=== PATIENT | male | born 1945 | race Caucasian/White ===

== ENCOUNTER → 2016-10-24 | Outpatient (CLI) | payer OTHER ==
[~2016-10-24] MED LIST: ACET-1256 PO; ASPCH81X PO; CLOP1TAB15 PO; FINA5TAB PO; GLC/500 PO; GLIP2.5T11 PO; HYDR-5688 PO; LISI5TAB3 PO; METO-217 PO; MULT-845 PO; PHEN-876 PO; SIMV80TA2 PO; SULF800T23 PO; TAMS0.4C59 PO; [UNRECOGNIZED DRUG - CODE] PO
[2016-10-25 05:55] LABS: ESTIMATED AVERAGE GLUCOSE 146 mg/dl; HA1C FLAG Normal (Normal)
== END | disposition home or self-care (01) ==
LOC: C.LABBFT 12:23
PROVIDERS: ATTEND Internal Medicine
DX: N20.0 Calculus of kidney (principal); N21.0 Calculus in bladder; N39.0 Urinary tract infection, site not specified; E11.9 Type 2 diabetes mellitus without complications

== ENCOUNTER 2016-11-03 11:42 | Day surgery (SDC) | payer OTHER ==
[2016-10-18 11:53] VITALS: BMI 22.0
--- NOTE | 2016-10-18 12:46 | PAT Medication Instructions ---
Service Date Oct 18, 2016. Current Home Medication List Acetaminophen (Tylenol), 1 TAB PO Q6 Aspirin (Aspirin Chewable), 81 MG PO HS Clopidogrel (Plavix), 75 MG PO QAM Finasteride (Proscar), 5 MG PO QAM Glipizide (Glipizide Er), 1 TAB PO QAM Lecithin (Cvs Lecithin), Unknown Dose PO TID Lisinopril (Zestril), 5 MG PO ON HOLD Metformin Hcl (Glucophage), 1,000 MG PO BID Metoprolol Succinate (Toprol Xl), 50 MG PO QAM Multiple Vitamins W/ Minerals (Centrum Silver Adult 50+), 1 TAB PO QAM Simvastatin (Zocor), 80 MG PO HS Tamsulosin Hcl (Flomax), 0.4 MG PO QAM Medication Instructions For Your Scheduled Surgery Aspirin (Aspirin Chewable), 81 MG PO HS (surgeon will call with instructions- call Mona from anesthesia if you do not hear from surgeon) Clopidogrel (Plavix), 75 MG PO QAM (surgeon will call with instructions- call Mona from anesthesia if you do not hear from surgeon) - Hold the following medications 48 hours prior to surgery: Metformin Hcl (Glucophage), 1,000 MG PO BID - Hold the following medications the morning of surgery: Multiple Vitamins W/ Minerals (Centrum Silver Adult 50+), 1 TAB PO QAM Lisinopril (Zestril), 5 MG PO ON HOLD Glipizide (Glipizide Er), 1 TAB PO QAM Lecithin (Cvs Lecithin), Unknown Dose PO TID - Take the following medications the morning of surgery with a sip of water: Tamsulosin Hcl (Flomax), 0.4 MG PO QAM Metoprolol Succinate (Toprol Xl), 50 MG PO QAM Finasteride (Proscar), 5 MG PO QAM Acetaminophen (Tylenol), 1 TAB PO Q6 (if needed) - Take the following medications as scheduled the night before surgery: Simvastatin (Zocor), 80 MG PO HS Acetaminophen (Tylenol), 1 TAB PO Q6 Lecithin (Cvs Lecithin), Unknown Dose PO TID If you have any questions please call us at [phone] or [phone] ( Mona) or [phone]
[2016-10-18 13:13] LABS: BASO % 0.4 %; BASO ABS # 0.03 K/uL (0-0.2); COMPLETE YES; HEMATOCRIT 34.1 % (42-52); IG% 1.1 %; LYMPH % 15.7 %; LYMPH ABS # 1.27 K/uL (1.2-3.4); MEAN CELL VOLUME 88.8 fL (80-100); MEAN CORPUSCULAR HEMOGLOBIN 30.2 pg (25-34); MEAN PLATELET VOLUME 9.5 fL (7.4-10.4); MONO % 8.3 %; NEUT % 70.5 %; PLATELET COUNT 204 K/uL (130-400); RED BLOOD COUNT 3.84 M/uL (4.7-6.1); WHITE BLOOD COUNT 8.08 K/uL (4.8-10.8)
--- NOTE | 2016-10-18 13:27 | DIAGNOSTIC IMAGING REPORT ---
CHEST PREADMISSION(PA/LAT) CLINICAL HISTORY: PAT preoperative evaluation COMPARISON STUDY: 05/06/2016 FINDINGS: The current images somewhat lordotic as compared to the prior exam. Central catheter remains in superior vena cava. Linear parenchymal scarring left midlung is similar. Slight lateral pleural reactive changes also similar. Left perihilar fibrotic scarring is unchanged. Diaphragmatic scarring centrally in the left. Lungs otherwise appear clear. Baseline emphysematous changes similar. IMPRESSION: Chronic and postoperative change. No acute process. Electronically signed by: Ezekiel Collier M.D. 10/18/2016 1:25 PM
[2016-10-18 13:28] LABS: URINE APPEARANCE TURBID (CLEAR); URINE BILIRUBIN NEG (NEG); URINE COLOR DK YELLOW; URINE EPITHELIAL CELL AUTO 20-30 /lpf (0-5); URINE NITRITE POS (NEG); URINE SPECIFIC GRAVITY 1.026 (1.000-1.030); UROBILINOGEN NEG (NEG)
[2016-10-18 13:30] LABS: BUN/CREATININE RATIO 21.4 (10-20); CALCIUM 9.5 mg/dl (8.5-10.1); CREATININE 1.3 mg/dl (0.60-1.40); POTASSIUM 4.6 mmol/L (3.5-5.1)
[2016-10-18 13:35] LABS: MANUAL MICROSCOPIC REQUIRED? NO; REVIEW REQ? YES
[~2016-11-03] VITALS: Ht 170.2 cm; Wt 66.1 kg
[~2016-11-03 11:42] MED LIST changes: +GENTAMICIN INJ 120 MG in DEXTROSE 5% 100ML 100 ML IV SCH; -HYDR-5688 PO; +LACTATED RINGER'S 1000ML 1,000 ML IV SCH; -PHEN-876 PO; +ROCURONIUM BROMIDE 10 MG/ML 5 ML VIAL ONE; -SULF800T23 PO
[2016-11-03 12:22] VITALS: BP 135/80; PULSE 67; TEMP 36.5; O2SAT 98; Ht 170.2 cm; Wt 66.1 kg
--- NOTE | 2016-11-03 13:05 | History & Physical Bridge Note ---
H&P Re-Evaluation Bridge Note: I have examined the patient, reviewed the History & Physical and in the interval since the performance of the History & Physical I have noted the following changes of clinical significance: No changes noted
[2016-11-03] MEDS ORDERED: ONDANSETRON INJ 2 MG/ML 2 ML VIAL IV PRN (14:00)
[2016-11-03] MEDS ORDERED: FENTANYL CITRATE INJ 50 MCG/1 ML 2 ML VIAL IV PRN (14:00)
[2016-11-03] MEDS ORDERED: EpHEDrine SULFATE INJ 50 MG/ML AMP IV PRN (14:00)
[2016-11-03] MEDS ORDERED: ATROPINE SULFATE 0.1 MG/ML 5ML SYR IV PRN (14:00)
[2016-11-03] MEDS ORDERED: FENTANYL CITRATE INJ 50 MCG/1 ML 2 ML VIAL ONE ×2 (14:04→15:03)
[2016-11-03] MEDS ORDERED: MIDAZOLAM HCL 1 MG/ML 2ML VIAL ONE (14:04)
[2016-11-03] MEDS ORDERED: HYDROCODONE/ACETAMOPHEN 5/325MG TAB PO PRN (14:15)
[2016-11-03] MEDS ORDERED: HYDR-5688 PO (14:17)
[2016-11-03] MEDS ORDERED: PHEN-876 PO (14:17)
[2016-11-03] MEDS ORDERED: SULF800T23 PO (14:17)
--- NOTE | 2016-11-03 14:25 | Discharge Instructions ---
Discharge Instructions Admission Reason for Admission: Bladder Stone Discharge Discharge Diagnosis / Problem: BPH, bladder stone Discharge Goals Goal(s): Decrease discomfort, Therapeutic intervention Activity Recommendations Activity Limitations: as noted below Lifting Limitations: gradually increase as tolerated Exercise/Sports Limitations: rest today, gradually increase as tolerated May Resume Sexual Activity: after follow-up appointment Shower/Bathe: no limitations Driving or Machine Use: resume 3 days after discharge (Do not drive while taking narcotics. ) . Instructions / Follow-Up Instructions / Follow-Up 1. You have been prescribed the antibiotic Bactrim DS. Finish all as directed. 2. You may resume taking your Aspirin in 2 days. 3. You may resume taking your Plavix in 1 week. 4. Follow-up with Dr. Feldman as scheduled. Please call the office at if you need to reschedule for any reason. Discharge Diet Recommended Diet: Regular Diet Pending Studies Studies pending at discharge: no Laboratory Results Hemoglobin A1c Test 10/24/16 12:29 Range/Units Estimated Average Glucose 146 mg/dl Hemoglobin A1c 6.7 H 4.5-5.6 % Medical Emergencies . Who to Call and When: Medical Emergencies: If at any time you feel your situation is an emergency, please call 911 immediately. . Non-Emergent Contact Non-Emergency issues call your: Urologist Call Non-Emergent contact if: temperature is above 101.5, your pain is not controlled, your pain is worsening, your pain is unusual for you, your pain is concerning you, you have any medication questions . . "Provider Documentation" section prepared by Corina Albarado. VTE Core Measure Inpt VTE Proph given/why not?: SCD's [place] Drug Monitoring Program Search Results: patient reviewed within database, no issues identified
[2016-11-03] MEDS ORDERED: BELLADONNA/OPIUM SUPP 60 MG SUPP PR ONE (14:45)
[2016-11-03] MEDS ORDERED: GLYCOPYRROLATE INJ 0.2 MG/ML VIAL ONE (14:50)
[2016-11-03] MEDS ORDERED: PHENYLEPHRINE HCL INJ 10 MG/ML VIAL ONE (14:50)
[2016-11-03] MEDS ORDERED: SUCCINYLCHOLINE 100MG/5ML SYR IV ONE (14:50)
[2016-11-03] MEDS ORDERED: NEOSTIGMINE METHYLSULFATE 5 MG/5 ML SYR ONE (14:50)
[2016-11-03] MEDS ORDERED: ONDANSETRON INJ 2 MG/ML 2 ML VIAL ONE (14:50)
[2016-11-03] MEDS ORDERED: DEXAMETHASONE SOD INJ 4 MG/ML VIAL ONE (14:50)
[2016-11-03] MEDS ORDERED: ROCURONIUM BROMIDE 10 MG/ML 5 ML VIAL ONE (14:50)
[2016-11-03] MEDS ORDERED: LIDOCAINE HCL 2% 2 ML VIAL (20MG/ML) ONE (14:51)
[2016-11-03] MEDS ORDERED: PROPOFOL IV EMULSION 10 MG/ML 20 ML VIAL IV ONE (14:51)
--- NOTE | 2016-11-03 15:53 | [facility] Post Operative Brief Note ---
Immediate Operative Summary Operative Date Nov 03, 2016. Pre-Operative Diagnosis Bladder stone, recurrent UTI, BPH Post-Operative Diagnosis Same Procedure(s) Performed Laser cystolithopaxy, GLTURP Surgeon Gaston Alegria MD Igniter Assembler Surgeon(s) NA Estimated Blood Loss Minimal Findings Stone fragmented and removed, open fossa after 64K J used Specimens Bladder stone for analysis Drains 20 fr silicone roche 10 cc Anesthesia GAET Complication(s) None Disposition Recovery Room / PACU
[2016-11-03] MEDS: HYDROmorphone INJ 1 MG/ML SYR IV PRN ×2 (16:02→16:07)
--- NOTE | 2016-11-03 16:24 | Anesthesiology Progress Note ---
Anesthesia Post Op Note Date & Time Nov 03, 2016 at 16:24 Vital Signs Pain Intensity: 1 Vital Signs Past 12 Hours Date Time Temp Pulse Resp B/P Pulse Ox O2 Delivery O2 Flow Rate FiO2 11/03/16 16:15 56 16 29/68 95 Room Air 11/03/16 16:05 57 16 130/72 100 Mask 10 11/03/16 15:55 63 16 145/72 100 Mask 10 11/03/16 15:45 36.3 63 16 155/74 100 Mask 10 11/03/16 12:22 36.5 67 18 135/80 98 Room Air Notes Mental Status: alert / awake / arousable, participated in evaluation Pt Amnestic to Procedure: Yes Nausea / Vomiting: adequately controlled Pain: adequately controlled Airway Patency, RR, SpO2: stable & adequate BP & HR: stable & adequate Hydration State: stable & adequate Anesthetic Complications: no major complications apparent
[2016-11-03 16:30] VITALS: BP 119/64; PULSE 60; TEMP 36.4; O2SAT 96
[2016-11-03 17:00] VITALS: BP 124/55; PULSE 60; O2SAT 96
[2016-11-03 17:30] VITALS: BP 114/57; PULSE 60; TEMP 36.4; O2SAT 96
--- NOTE | 2016-11-03 18:39 | OPERATIVE REPORT ---
DATE OF OPERATION: 11/03/2016 PREOPERATIVE DIAGNOSES: A 3 cm bladder stone, recurrent urinary tract infections and benign prostatic hypertrophy. POSTOPERATIVE DIAGNOSIS: Same. PROCEDURE: Laser cystolitholapaxy and GreenLight vaporization of the prostate gland. SURGEON: Dr. Christopher Feldman. FLUORESCENT LIGHTING MODEL MAKER: None. ANESTHESIA: General anesthesia with endotracheal intubation. COMPLICATIONS: None. ESTIMATED BLOOD LOSS: Minimal. FINDINGS: No residual intravesical stone after completion, open fossa after 64,000 joules of GreenLight laser energy. DRAINS LEFT IN PLACE: Include a 20-Kosovan silicone catheter with 10 mL of sterile water in the balloon. SPECIMENS SENT TO PATHOLOGY: Bladder stone fragments for pathologic analysis. COMPLICATIONS: None. BRIEF HISTORY: Mr. Aden is a pleasant 70-year-old male who I have seen as an outpatient for history of bothersome voiding symptoms and recurrent urinary tract infection. His numerous health issues were noted including malignancy with a history of ongoing chemotherapy and coronary artery disease for which he is on antiplatelet therapy. Office cystoscopy in the summer of 2015 has demonstrated a large bladder stone and obstructive prostate gland for which he is on maximum medical therapy. He is here today as his other health issues have stabilized sufficiently to allow for intervention with respect to achieve conditions. After close coordination with the cardiology service aspirin has been held for 5 days preoperatively and Plavix on hold for 1 week. Please see H\T\P for further details. Intravenous gentamicin was provided for antibiotic coverage. DESCRIPTION OF PROCEDURE: The patient was properly identified and brought to the operative suite. After identification of appropriate consent on the chart, general anesthesia with endotracheal intubation was initiated. The patient was prepped and draped in a standard fashion for this procedure. multimedia producer-out procedure was followed. SCDs used for DVT prophylaxis. A 22-Kosovan rigid cystoscope was passed into the bladder under direct visualization and bladder was surveyed in its entirety. Ureteral orifices were easily visible and well removed from the bladder neck. Grade 2 trabeculation was present and a large bladder stone consistent with the patient's previous cystoscopic and imaging findings was noted. No other intravesical tumors, papillary lesions or calculi or mucosal abnormalities were appreciated. Using a 600 micron laser scope the stone was fragmented into smaller pieces which were able to be irrigated free. A resectoscope was placed for irrigation of the larger fragments. After 20 minutes of holmium laser time, the stone was noted to be resolved within the bladder. No significant intravesical injuries or abnormalities and no involvement of the ureteral orifices was appreciated. Bladder was surveyed carefully and noted to be free of any residual stone fragments. The bladder was drained and cystoscope was removed. Attention was then turned to the GreenLight portion of the case. The GreenLight laser scope was introduced into the bladder and using a side fire GreenLight laser, circumferential vaporization of the prostate gland was performed until the prostate was visually unobstructed. Relaxing incisions were made using the laser at the 5 and 7 o'clock position to avoid future bladder neck contracture. Ureteral orifices were noted to be well clear of the area of dissection. Excellent hemostasis was appreciated throughout the case. After the prostate was felt to be visually unobstructed, approximately 64,000 joules of energy used. The bladder was partially distended and GreenLight laser resectoscope was removed. A 20-Kosovan silicone catheter was placed without resistance into the bladder with return of clear, yellow irrigant. Ten mL of sterile water were placed in the balloon and catheter was placed to gravity drainage and belladonna and opium suppository were provided for additional postoperative analgesia. Anesthesia was reversed. The patient was transferred to recovery room in stable condition. FOLLOWUP CARE: The patient will be discharged home with Dawson catheter in place. Outpatient trial of void has been arranged. Prescription for antibiotic coverage postoperatively, analgesia and Pyridium is provided. The patient is instructed to contact our service should he note any fevers, chills, nausea, vomiting or other significant difficulties in the postoperative care. I attest to the content of the Intraoperative Record and any orders documented therein. Any exceptio ns are noted below.
== END 2016-11-03 17:50 | disposition home or self-care (01) ==
LOC: C.ACU 11:42
PROVIDERS: ATTEND Urology
DX: N21.0 Calculus in bladder (principal); N40.1 Benign prostatic hyperplasia with lower urinary tract symptoms; N13.8 Other obstructive and reflux uropathy; I25.10 Atherosclerotic heart disease of native coronary artery without angina pectoris; R10.12 Left upper quadrant pain; D64.9 Anemia, unspecified; J44.9 Chronic obstructive pulmonary disease, unspecified; I10 Essential (primary) hypertension; E11.9 Type 2 diabetes mellitus without complications; N32.89 Other specified disorders of bladder

== ENCOUNTER → 2016-11-16 | Outpatient (CLI) | payer OTHER ==
[~2016-11-16] MED LIST changes: -ASPCH81X PO; -CLOP1TAB15 PO; -GENTAMICIN INJ 120 MG in DEXTROSE 5% 100ML 100 ML IV SCH; +HYDR-5688 PO; -LACTATED RINGER'S 1000ML 1,000 ML IV SCH; +PHEN-876 PO; -ROCURONIUM BROMIDE 10 MG/ML 5 ML VIAL ONE; -[UNRECOGNIZED DRUG - CODE] PO
== END | disposition home or self-care (01) ==
LOC: C.LABSPEC 16:59
PROVIDERS: ATTEND Urology
DX: R39.9 Unspecified symptoms and signs involving the genitourinary system (principal); N39.0 Urinary tract infection, site not specified

== ENCOUNTER → 2017-02-28 | Outpatient (CLI) | payer OTHER ==
[2017-02-28 12:13] LABS: BASO % 0.3 %; BASO ABS # 0.02 K/uL (0-0.2); COMPLETE YES; EOS % 9.2 %; HEMATOCRIT 34.5 % (42-52); IG% 0.6 %; LYMPH % 12.1 %; LYMPH ABS # 0.79 K/uL (1.2-3.4); MEAN CELL VOLUME 91.8 fL (80-100); MEAN CORPUSCULAR HEMOGLOBIN 29.3 pg (25-34); MEAN CORPUSCULAR HGB CONC 31.9 g/dl (32-36); MONO % 11.1 %; NEUT % 66.7 %; PLATELET COUNT 228 K/uL (130-400); RED BLOOD COUNT 3.76 M/uL (4.7-6.1); WHITE BLOOD COUNT 6.55 K/uL (4.8-10.8)
[2017-02-28 12:31] LABS: ALT/SGPT 33 U/L (12-78); BLOOD UREA NITROGEN 28 mg/dl (7-18); BUN/CREATININE RATIO 28.5 (10-20); CARBON DIOXIDE 27 mmol/L (21-32); CHLORIDE 108 mmol/L (98-107); CHOLESTEROL 120 mg/dl (0-200); CREATININE 0.97 mg/dl (0.60-1.40); GLUCOSE 98 mg/dl (70-99); POTASSIUM 4.6 mmol/L (3.5-5.1); SODIUM 141 mmol/L (136-145); TRIGLYCERIDES 86 mg/dl (0-150); VERY LOW DENSITY LIPOPROT CALC 17 mg/dl
[2017-02-28 12:35] LABS: ALB/GLOB RATIO 1.1 (0.9-2); ALKALINE PHOSPHATASE 114 U/L (45-117); AST/SGOT 22 U/L (15-37); CHOLESTEROL/HDL RATIO 2.4; HDL CHOLESTEROL 50 mg/dl; LDL CHOLESTEROL CALCULATED 53 mg/dl; PROSTATE SPECIFIC ANTIGEN 0.869 ng/ml (0.000-4.000)
[2017-02-28 12:45] LABS: ESTIMATED AVERAGE GLUCOSE 140 mg/dl; HA1C FLAG Normal (Normal)
[2017-02-28 12:49] LABS: CALCIUM 9.5 mg/dl (8.5-10.1)
== END | disposition home or self-care (01) ==
LOC: C.LABBFT 08:09
PROVIDERS: ATTEND Internal Medicine
DX: E78.5 Hyperlipidemia, unspecified (principal); I10 Essential (primary) hypertension; E11.9 Type 2 diabetes mellitus without complications; D64.9 Anemia, unspecified; D72.829 Elevated white blood cell count, unspecified; E87.5 Hyperkalemia; N40.1 Benign prostatic hyperplasia with lower urinary tract symptoms

== ENCOUNTER → 2017-03-16 | Outpatient (CLI) | payer OTHER ==
[2017-03-16 14:34] VITALS: BP 124/67; PULSE 57; TEMP 36.5; O2SAT 98
--- NOTE | 2017-03-16 16:10 | Radiation Oncology Follow-Up ---
Radiation Oncology Follow-Up Date of Visit Mar 16, 2017. (Beatris Curiel PA-C) Reason For Visit 6 month follow-up (Beatris Curiel PA-C) Radiation Completion Date 09/02/16 (Beatris Curiel PA-C) Diagnosis (1) Small cell lung cancer Status: Acute Onset Date: 01/27/2016 Permanent Comment: DIAGNOSIS: Lung, CHATA, small cell lung carcinoma, [id number], stage IIIA TREATMENT: 1. Status post completion of combined radiation and chemotherapy. Radiation completed 05/02/2016 received 7000 cGy 2. 2 addition cycles of cisplatin/etoposide - Dr. Jeffery Ash Last Edited By: Jacinta Poole on Jun 03, 2016 08:02 (Beatris Curiel PA-C) History of Present Illness Mr. Aden is a 70-year-old gentleman who initially presented with an episode of hemoptysis. He had a chest x-ray which showed a left upper lobe mass. He subsequently had a CT scan completed on 2015 which revealed 7 cm heterogeneous mass in the left upper lobe which encases and occludes branches of the left upper lobe pulmonary artery and bronchi. Additionally, the patient has a mass in the left hilum and there are also pathologically enlarged and centrally necrotic mediastinal lymph nodes in the AP window. The patient was taken to the operating room by Dr. Srivastava on for a bronchoscopy which did not reveal any endobronchial lesions. He did perform several biopsies including an L4 lymph node which was consistent with metastatic small cell carcinoma. An R2 and a R4 lymph node were also biopsied in both were negative for metastatic carcinoma. He subsequently had a PET/CT scan completed on 02/03/2016 which revealed an intensely metabolically active left upper lobe mass with extension to the left hilum as well as metabolically active left paratracheal and aortic pulmonary window lymph nodes. There is no evidence of distant metastatic disease. He did have an MRI of the brain on 02/09/2016 which showed no evidence of metastatic disease. The patient was seen in consultation by Dr[facility] who recommended concurrent chemoradiation therapy. We are now seeing the patient in consultation. He completed combined radiation and chemotherapy. Radiation was completed 2015. He received 7000 cGy. He has been doing well over the past 3 months. He feels his respiratory status is stable. He completed chemotherapy . He was recently treated for urinary tract infection. He's been followed closely by Dr. Ash and had recheck imaging with a PET/CT 07/27/2016. This is shown post radiation changes within the left lung and hemithorax with interval decrease in size and metabolic activity of the left upper lobe paramediastinal mass. There is mild focal uptake in the posterior aspect of the mass and residual disease cannot be entirely excluded. No evidence of FDG avid distant metastasis. It is felt that he has had a good response to therapy. He is been referred back to our office to discuss prophylactic cranial irradiation. He completed prophylactic cranial irradiation 09/02/2016. He received 2500 cGy (Beatris Curiel PA-C) Interim History He's been doing well over the past 6 months. He feels that his respiratory status stable. He has occasional cough but nothing that is severe. No problems with hemoptysis. Denies chest discomfort. He has no problems with dysphagia. His weight is stable. While undergoing treatment and he had herpes zoster on the side of the head. He continues to have residual mild sensitivity of the skin on the right side of his head. He had previously been on medication. He no longer requires any regular medication for postherpetic neuralgia. He denies headaches. No visual changes or lightheadedness. He's had no nausea. He isn't followed closely by Dr. Ash and has had recheck scanning including CT scan of the chest as well as PET/CT. The area in the left upper lobe continues to showed decreased FDG avidity and size. (Beatris Curiel PA-C) Allergies Coded Allergies: No Known Allergies (Verified , 11/03/16) Home Medications Scheduled Finasteride (Proscar), 5 MG PO QAM Glipizide (Glipizide Er), 1 TAB PO QAM Metformin Hcl (Glucophage), 1,000 MG PO BID Metoprolol Succinate (Toprol Xl), 50 MG PO QAM Multiple Vitamins W/ Minerals (Centrum Silver Adult 50+), 1 TAB PO QAM Simvastatin (Zocor), 80 MG PO HS Review of Systems Gastrointestinal: Symptoms: WNL Oral: Symptoms: No Problems Respiratory: Symptoms: WNL Respiratory Comments: If I'm working hard I can get SOB Urinary: Symptoms: WNL Skin: Other Skin Symptoms: slight redness and small macula on right side head from shingles (Beatris uCriel PA-C) Physical Exam Vital Signs Date Time Temp Pulse Resp B/P (MAP) Pulse Ox O2 Delivery O2 Flow Rate FiO2 03/16/17 14:34 36.5 57 18 124/67 98 Pain: Patient Pain Scale: 0 - 10 Initial Pain Intensity: 0.0 Fatigue: None General Appearance: no apparent distress Eyes: normal inspection, EOMI ENT: normal ENT inspection, hearing grossly normal Neck: no adenopathy, thyroid normal Respiratory/Chest: lungs clear, no respiratory distress, no accessory muscle use Cardiovascular: regular rate, rhythm, no gallop, no murmur Extremities: no pedal edema Neurologic/Psychiatric: no motor/sensory deficits, alert, normal mood/affect Skin: warm/dry Lymphatic: no adenopathy (Beatris Curiel PA-C) Laboratory Studies Test 02/28/17 09:11 White Blood Count 6.55 K/uL (4.8-10.8) Red Blood Count 3.76 M/uL (4.7-6.1) Hemoglobin 11.0 g/dL (14.0-18.0) Hematocrit 34.5 % (42-52) Mean Corpuscular Volume 91.8 fL (80-100) Mean Corpuscular Hemoglobin 29.3 pg (25-34) Mean Corpuscular Hemoglobin Concent 31.9 g/dl (32-36) Platelet Count 228 K/uL (130-400) Mean Platelet Volume 10.0 fL (7.4-10.4) Neutrophils (%) (Auto) 66.7 % Lymphocytes (%) (Auto) 12.1 % Monocytes (%) (Auto) 11.1 % Eosinophils (%) (Auto) 9.2 % Basophils (%) (Auto) 0.3 % Neutrophils # (Auto) 4.37 K/uL (1.4-6.5) Lymphocytes # (Auto) 0.79 K/uL (1.2-3.4) Monocytes # (Auto) 0.73 K/uL (0.11-0.59) Eosinophils # (Auto) 0.60 K/uL (0-0.5) Basophils # (Auto) 0.02 K/uL (0-0.2) RDW Standard Deviation 44.5 fL (36.4-46.3) RDW Coefficient of Variation 13.4 % (11.5-14.5) Immature Granulocyte % (Auto) 0.6 % Immature Granulocyte # (Auto) 0.04 K/uL (0.00-0.02) Sodium Level 141 mmol/L (136-145) Potassium Level 4.6 mmol/L (3.5-5.1) Chloride Level 108 mmol/L (98-107) Carbon Dioxide Level 27 mmol/L (21-32) Anion Gap 6.0 mmol/L (3-11) Blood Urea Nitrogen 28 mg/dl (7-18) Creatinine 0.97 mg/dl (0.60-1.40) Estimated GFR () 89.4 Estimated GFR (Non- 77.1 BUN/Creatinine Ratio 28.5 (10-20) Random Glucose 98 mg/dl (70-99) Estimated Average Glucose 140 mg/dl Hemoglobin A1c 6.5 % (4.5-5.6) Calcium Level 9.5 mg/dl (8.5-10.1) Total Bilirubin 0.8 mg/dl (0.2-1) Aspartate Amino Transferase (AST) 22 U/L (15-37) Alanine Aminotransferase (ALT) 33 U/L (12-78) Alkaline Phosphatase 114 U/L (45-117) Total Protein 6.8 gm/dl (6.4-8.2) Albumin 3.5 gm/dl (3.4-5.0) Globulin 3.3 gm/dl (2.5-4.0) Albumin/Globulin Ratio 1.1 (0.9-2) Triglycerides Level 86 mg/dl (0-150) Cholesterol Level 120 mg/dl (0-200) HDL Cholesterol 50 mg/dl LDL Cholesterol, Calculated 53 mg/dl VLDL Cholesterol, Calculated 17 mg/dl Cholesterol/HDL Ratio 2.4 Prostate Specific Antigen 0.869 ng/ml (0.000-4.000) (Beatris Curiel PA-C) Additional Studies He had CT of the chest 12/23/2016. This showed decreased size of the left upper lobe mass. Stable infiltrating soft tissue extending from the left hilum into the mediastinum. No new nodule or lymphadenopathy identified. Small left pleural effusion. Non-masslike areas of hyper enhancement of the liver fever to represent perfusional abnormalities, however metastatic disease not excluded. He had a PET/CT 02/09/2017. Showed post interval changes in the left hemithorax including irregular pulmonary opacity in the left upper lobe. No discrete suspicious hypermetabolic uptake in the liver. (Beatris Curiel PA-C) Assessment & Plan Continue regular follow-up with Dr. Ash and his primary care provider. Recheck scanning per Dr. Ash. He was seen and examined by Dr. Poole. We asked him to return to our office in October 2017. He may call our office if he has any questions or concerns in the interim. (Beatris Curile PA-C) I agree with note created by Beatris Curiel PA-C. I reviewed the patient's chart and information with her. I have examined and evaluated the patient. I reviewed relevant clinical information and answered the patient's and/or family' s questions. (Veeral. Poole MD) Total Time In Follow-Up I spent 20 minutes speaking to the patient and performing examination. I spent 15 minutes reviewing information in completing this note. (Beatris Curiel PA-C) I spent 15 minutes examining and counseling the patient. (Veeral. Poole MD) Copy To Dom Walter M.D.; Jeffery Ash MD; Charles Vera M.D. Problem Qualifiers (1) Small cell lung cancer: Laterality: left Qualified Codes: C34.92 - Malignant neoplasm of unspecified part of left bronchus or lung
== END | disposition home or self-care (01) ==
LOC: C.ONC 14:22
PROVIDERS: ATTEND Physician Assistant Medical
DX: Z08 Encounter for follow-up examination after completed treatment for malignant neoplasm (principal); Z92.3 Personal history of irradiation; Z85.118 Personal history of other malignant neoplasm of bronchus and lung

== ENCOUNTER → 2017-03-20 | Outpatient (CLI) | payer OTHER ==
[~2017-03-20] MED LIST changes: -ACET-1256 PO; -HYDR-5688 PO; -LISI5TAB3 PO; -PHEN-876 PO; -TAMS0.4C59 PO
--- NOTE | 2017-03-20 08:52 | DIAGNOSTIC IMAGING REPORT ---
ABDOMINAL ULTRASOUND, RIGHT UPPER QUADRANT HISTORY: Right upper quadrant abdominal pain. COMPARISON: PET CT October 19, 2016. FINDINGS: A few subcentimeter hepatic cysts are noted. There is no biliary ductal dilatation. There are no gallstones. No gallbladder wall thickening is present. The pancreatic body is normal. Head and tail are obscured. There is no right hydronephrosis. IMPRESSION: No significant abnormality identified within the right upper quadrant. Electronically signed by: Jose Prieto M.D. 03/20/2017 8:51 AM Dictated Date/Time: 03/20/2017 8:49 AM
== END | disposition home or self-care (01) ==
LOC: C.ULTR 08:20
PROVIDERS: ATTEND Physician Assistant Medical
DX: R10.11 Right upper quadrant pain (principal)

== ENCOUNTER → 2017-09-18 | Outpatient (CLI) | payer OTHER ==
[2017-09-18 13:55] LABS: BLOOD UREA NITROGEN 27 mg/dl (7-18); BUN/CREATININE RATIO 23.3 (10-20); CARBON DIOXIDE 26 mmol/L (21-32); CHLORIDE 106 mmol/L (98-107); CREATININE 1.17 mg/dl (0.60-1.40); GLUCOSE 137 mg/dl (70-99); POTASSIUM 4.5 mmol/L (3.5-5.1); SODIUM 136 mmol/L (136-145)
== END | disposition home or self-care (01) ==
LOC: C.LABBFT 09:10
PROVIDERS: ATTEND Internal Medicine
DX: E87.5 Hyperkalemia (principal)

== ENCOUNTER → 2017-10-24 | Outpatient (CLI) | payer OTHER ==
[~2017-10-24] MED LIST changes: +LISI-729 PO
[2017-10-24 13:53] VITALS: BP 129/75; PULSE 56; TEMP 36.4; O2SAT 98
--- NOTE | 2017-10-24 15:37 | Radiation Oncology Follow-Up ---
Radiation Oncology Follow-Up Date of Visit Oct 24, 2017. Reason For Visit 6 month follow-up Radiation Completion Date 05/02/16 PCI 09/02/16 Diagnosis (1) Small cell lung cancer Status: Acute Onset Date: 01/27/2016 Location: left upper lobe Permanent Comment: DIAGNOSIS: Lung, CHATA, small cell lung carcinoma, [id number], stage IIIA TREATMENT: 1. Status post completion of combined radiation and chemotherapy. Radiation completed 05/02/2016 received 7000 cGy 2. 2 addition cycles of cisplatin/etoposide - Dr. Jeffery Ash Last Edited By: Jacinta Poole on Jun 03, 2016 08:02 History of Present Illness Mr. Aden initially presented with an episode of hemoptysis. He had a chest x- ray which showed a left upper lobe mass. He subsequently had a CT scan completed on 2015 which revealed 7 cm heterogeneous mass in the left upper lobe which encases and occludes branches of the left upper lobe pulmonary artery and bronchi. Additionally, the patient has a mass in the left hilum and there are also pathologically enlarged and centrally necrotic mediastinal lymph nodes in the AP window. The patient was taken to the operating room by Dr. Srivastava on for a bronchoscopy which did not reveal any endobronchial lesions. He did perform several biopsies including an L4 lymph node which was consistent with metastatic small cell carcinoma. An R2 and a R4 lymph node were also biopsied in both were negative for metastatic carcinoma. He subsequently had a PET/CT scan completed on 02/03/2016 which revealed an intensely metabolically active left upper lobe mass with extension to the left hilum as well as metabolically active left paratracheal and aortic pulmonary window lymph nodes. There is no evidence of distant metastatic disease. He did have an MRI of the brain on 02/09/2016 which showed no evidence of metastatic disease. The patient was seen in consultation by Dr. Jeffery [facility] who recommended concurrent chemoradiation therapy. We are now seeing the patient in consultation. He completed combined radiation and chemotherapy. Radiation was completed 2015. He received 7000 cGy. He has been doing well over the past 3 months. He feels his respiratory status is stable. He completed chemotherapy . He was recently treated for urinary tract infection. He's been followed closely by Dr. Ash and had recheck imaging with a PET/CT 07/27/2016. This is shown post radiation changes within the left lung and hemithorax with interval decrease in size and metabolic activity of the left upper lobe paramediastinal mass. There is mild focal uptake in the posterior aspect of the mass and residual disease cannot be entirely excluded. No evidence of FDG avid distant metastasis. It is felt that he has had a good response to therapy. He is been referred back to our office to discuss prophylactic cranial irradiation. He completed prophylactic cranial irradiation 09/02/2016. He received 2500 cGy Interim History He's been doing well over the past 6 months. He denies any changes in respiratory status. He becomes short of breath with strenuous exertion and this is unchanged. No problems recurrent with recurrent cough. He has continued to have an altered taste since completing the chemotherapy. He has had follow-up imaging the most recent was performed 07/20/2017. He has a irritation of the skin of the right frontal parietal area where he had herpes zoster. This is continued since the outbreak following treatment. He has discussed this previously with his PCP and has declined medication for the postherpetic neuralgia. He has no difficulty swallowing. Allergies Coded Allergies: No Known Allergies (Verified , 11/03/16) Home Medications Scheduled Finasteride (Proscar), 5 MG PO QAM Glipizide (Glipizide Er), 1 TAB PO QAM Lisinopril (Zestril), 5 MG PO DAILY Metformin Hcl (Glucophage), 1,000 MG PO BID Metoprolol Succinate (Toprol Xl), 50 MG PO QAM Multiple Vitamins W/ Minerals (Centrum Silver Adult 50+), 1 TAB PO QAM Simvastatin (Zocor), 80 MG PO HS Review of Systems Gastrointestinal: Symptoms: WNL Oral: Symptoms: No Problems Respiratory: Symptoms: WNL Urinary: Symptoms: WNL Skin: Symptoms: No Problems Physical Exam Vital Signs Date Time Temp Pulse Resp B/P (MAP) Pulse Ox O2 Delivery O2 Flow Rate FiO2 10/24/17 13:53 36.4 56 16 129/75 98 Fatigue: None General Appearance: no apparent distress Eyes: normal inspection, EOMI ENT: normal ENT inspection, hearing grossly normal Neck: supple, no adenopathy, thyroid normal Respiratory/Chest: lungs clear, no respiratory distress, no accessory muscle use Cardiovascular: regular rate, rhythm, no gallop, no murmur Extremities: no pedal edema Neurologic/Psychiatric: no motor/sensory deficits, alert, normal mood/affect Skin: warm/dry Pain Management Patient Reports Pain: No Pain Management Plan He denies pain therefore requires no pain management. Laboratory Laboratory Results: not applicable Pathology Pathology Results: not applicable Imaging Imaging Studies: were reviewed, and pertinent findings noted below Imaging Comments Date/Time of Imaging Study Study Completed: 07/19/2017 8:49 AM [facility] PACS Image Narrative EXAM EXAM: CT THORAX WITH CONTRAST; CT ABDOMEN /PELVIS WITH IV CONTRAST WITH ORAL DATE and TIME: 07/19/2017 8:49 am HISTORY CLINICAL INFORMATION: small cell lung cancer TECHNIQUE Oral Contrast: Oral contrast was administered. COMPARISON CT THORAX WITH CONTRAST dated 12/21/2016; CT THORAX WITH CONTRAST dated 05/20/2016 FINDINGS CHEST: LINES AND DEVICES: Left vascular port terminates at the cavoatrial junction. MEDIASTINUM AND CARL: See below. Persistent left hilar elevation and narrowing on the left bronchial tree. Leftward mediastinal shift. HEART: There is a small pericardial effusion. Likely coronary artery stent. VESSELS: Atherosclerotic changes in the aorta and coronary arteries. LARGE AIRWAYS: See above. LUNGS: Advanced centrilobular emphysema. Left upper lobe paramediastinal mass, inseparable from the adjacent bronchovascular tree with extension along mainstem bronchus, sub- carinal soft tissue, and inseparable from the mediastinum and pleural reflections appears stable to slightly decreased size. Adjacent ground-glass and reticular opacities likely combination of posttreatment and radiation changes redemonstrated. Loculated effusion has decreased in volume compared to prior. Persistent fibrosis and architectural distortion. PLEURA: There are no pleural effusions. CHEST WALL / SOFT TISSUES: There is no axillary lymphadenopathy. BONES: There are thoracic spondylotic changes. ABDOMEN / PELVIS: LINES AND DEVICES: None. LIVER: Peripheral wedge-shaped arterial enhancing foci in the right lobe without correlate on delayed phase imaging, stable. There are scattered subcentimeter hypodensities within the hepatic parenchyma, too small to definitively characterize but likely represent cysts. BILE DUCTS: Unremarkable. GALLBLADDER: Unremarkable PANCREAS: Fatty replacement. SPLEEN: Unremarkable. ADRENALS: Unremarkable. KIDNEYS / URETERS: Bilateral renal cysts. Slightly greater than simple fluid density hypodense focus in superior left renal pelvis redemonstrated. Punctate nonobstructing left lower pole calculus. BLADDER: Collapsed. BOWEL: There is colonic diverticulosis without evidence for diverticulitis. LYMPH NODES: Unremarkable. VESSELS: There is moderate atherosclerotic calcification to the abdominal aorta and its major branches. REPRODUCTIVE ORGANS: Prostate is prominent. Central zone calcifications. PERITONEUM / RETROPERITONEUM: Unremarkable. ABDOMINAL WALL / SOFT TISSUES: Unremarkable. BONES: There are degenerative changes to the spine and joints of the pelvis. IMPRESSION Overall improved appearance of the left upper hemithorax with stable to decreased size of left paramediastinal mass as described. Additional findings as above. Authenticated By Authenticating Date Authenticating Time Reading Providers(s) LUIGI GILLETTE DO 07-20-2017 09:47 LUIGI GILLETTE DO Assessment & Plan Plan: The patient was seen and examined by Dr. Poole. He'll continue regular follow-up with medical oncology and his primary care physician. Dr. Moreira planning a recheck CT in December and follow-up visit. He continues to have his port flushed every 12 weeks. We asked him to return to our office in 1 year. He may call if he has any questions or concerns in the interim. Assessment & Plan (Attending) ADDENDUM: I agree with note created by Beatris Curiel PA-C. I reviewed the patient's chart and information with her. I have examined and evaluated the patient. I reviewed relevant clinical information and answered the patient's and /or family's questions. SELECTOR P[employer]ER Total Time In Follow-Up I spent 20 minutes speaking to the patient and performing examination. I spent 15 minutes reviewing information in completing this note. AK Total Time (Attending) In Follow-Up I spent 15 minutes examining and counseling the patient. SELECT[employer] P[employer]ER Copy To Jeffery Ash MD; Charles Vear M.D. Problem Qualifiers (1) Small cell lung cancer: Laterality: left Qualified Codes: C34.92 - Malignant neoplasm of unspecified part of left bronchus or lung
== END | disposition home or self-care (01) ==
LOC: C.ONC 13:48
PROVIDERS: ATTEND Physician Assistant Medical
DX: Z08 Encounter for follow-up examination after completed treatment for malignant neoplasm (principal); Z92.3 Personal history of irradiation; Z85.118 Personal history of other malignant neoplasm of bronchus and lung

== ENCOUNTER 2017-12-26 13:42 | Inpatient (IN) | payer OTHER ==
[~2017-12-26] VITALS: Ht 172.7 cm; Wt 61.6 kg
[~2017-12-26 13:42] MED LIST changes: -FINA5TAB PO; -GLIP2.5T11 PO; -LISI-729 PO
[2017-12-26] MEDS ORDERED: PIPERACILLIN/TAZOBACTAM 4.5 GM/100ML D5W IV STA (13:56)
[2017-12-26] MEDS ORDERED: SODIUM CHLORIDE 0.9% 1000ML 1,000 ML IV STA ×2 (13:56)
[2017-12-26] MEDS ORDERED: VANCOMYCIN IV 1,250 MG in SODIUM CHLORIDE 0.9% 500ML 500 ML IV STA (13:56)
[2017-12-26] MEDS ORDERED: VANCOMYCIN CONSULT ACTIVE PRN ×2 (14:00→16:15)
--- NOTE | 2017-12-26 14:05 | EMERGENCY ROOM VISIT NOTE ---
History Report prepared by Christopher: Devaughn Xavier Under the Supervision of: Dr. Chapincito Mullen M.D. First contact with patient: 13:51 Chief Complaint: CHEST PAIN Stated Complaint: CHEST PAIN History of Present Illness The patient is a 72 year old white male with a history of Left Upper Lobe Carcinoma, Diabetes, Hyperlipidemia, Hypertension, and Myocardial Infarction, who presents to the Emergency Room with complaints of waxing and waning chest pain that began this morning, a few hours prior to arrival. The patient states that he is currently experiencing common cold symptoms, including a productive cough. He believes the chest pain is associated with the cough. The patient has not noticed anything that improves or worsens the pain. He is not currently experiencing the pain. The patient has had 2 heart attacks in the past. He denies any associated nausea, vomiting, or shortness of breath. 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 A total of ten systems were reviewed and were otherwise negative. Past Medical & Surgical Medical Problems: (1) Anemia (2) BPH (benign prostatic hyperplasia) (3) CAD (coronary artery disease) (4) CKD stage 3 due to type 2 diabetes mellitus (5) COPD (chronic obstructive pulmonary disease) (6) DM II (diabetes mellitus, type II), controlled (7) Enlarged prostate (8) HLD (hyperlipidemia) (9) HTN (hypertension) (10) Hx of myocardial infarction (11) DE (myocardial infarction) (12) PVD (peripheral vascular disease) (13) Tachycardia Surgical Problems: (1) History of heart artery stent Family History Hypertension Social History Smoking Status: Never Smoker Alcohol Use: none Drug Use: none Marital Status: Housing Status: lives with family Occupation Status: retired Current/Historical Medications Scheduled Aspirin (Aspirin Ec), 81 MG PO DAILY Clopidogrel (Plavix), 75 MG PO DAILY Finasteride (Proscar), 5 MG PO QAM Glipizide (Glipizide Er), 2.5 MG PO QAM Lisinopril (Zestril), 5 MG PO DAILY Metformin Hcl (Glucophage), 1,000 MG PO BID Metoprolol Succinate (Toprol Xl), 50 MG PO QAM Multiple Vitamins W/ Minerals (Centrum Silver Adult 50+), 1 TAB PO QAM Simvastatin (Zocor), 80 MG PO HS Allergies Coded Allergies: No Known Allergies (Verified , 11/03/16) Physical Exam Vital Signs Date Time Temp Pulse Resp B/P (MAP) Pulse Ox O2 Delivery O2 Flow Rate FiO2 12/26/17 17:49 37.6 115 24 91/56 91 Nasal Cannula 6.0 12/26/17 16:48 93 Nasal Cannula 2.0 12/26/17 16:31 131 29 100/71 93 Nasal Cannula 2.0 12/26/17 15:22 117 24 102/61 97 Room Air 12/26/17 14:36 124 20 103/60 95 Nasal Cannula 2.0 12/26/17 14:24 132 12/26/17 13:58 Nasal Cannula 2.0 12/26/17 13:52 92 Room Air 12/26/17 13:50 36.4 137 22 96/66 91 Room Air Physical Exam GENERAL: Awake, alert, well-appearing, NAD HENT: Normocephalic, atraumatic. EYES: Normal conjunctiva. Sclera non-icteric. NECK: Supple. No nuchal rigidity. FROM. CHEST: There is a port in the left chest. RESPIRATORY: CTAB, no rhonchi, wheezing, crackles CARDIAC: Tachycardic Rate, regular rhythm, no MRG ABDOMEN: Soft, NTND, BS+ MSK: No chest wall TTP, no LE edema NEURO: GCS 15, CN 2-12 intact, moves all 4s on command SKIN: No rash or jaundice noted. Medical Decision & Procedures ER Provider Diagnostic Interpretation: Radiology results as stated below per my review and radiologist interpretation: CT ANGIOGRAM OF THE CHEST CLINICAL HISTORY: Atypical chest pain. COMPARISON STUDY: Chest x-ray dated 12/26/2017. Chest CT dated 01/21/2016. TECHNIQUE: Following the IV administration of 94 cc of Optiray 320, CT angiogram of the chest was performed from the upper abdomen to the thoracic inlet utilizing the pulmonary embolus protocol. Images are reviewed in the axial, sagittal, and coronal planes. 3-D MIPS images are created and assessed. IV contrast was administered without complication. A dose lowering technique was utilized adhering to the principles of ALARA. The examination is degraded by motion artifact. CT DOSE: 417.97 mGycm FINDINGS: Thyroid: Imaged portions of the thyroid gland are normal in size and attenuation. Thoracic aorta: There is atherosclerotic calcification of the thoracic aorta, which is normal in caliber and demonstrates standard 3-vessel arch anatomy. No dissection is seen. Pulmonary vasculature: The pulmonary trunk is normal in caliber. There are no filling defects identified in main, lobar, or segmental pulmonary branches to suggest pulmonary embolus. A left subclavian central venous infusion port is in place. Heart: The heart is normal in size and there is a small pericardial effusion. The coronary arteries are densely calcified. Lungs and pleural spaces: Advanced emphysema is noted. There are postoperative changes from left upper lobe resection with volume loss in the left lung and compensatory hyperinflation of the right lung. There is dense airspace consolidation identified in the right upper lobe. Mild patchy consolidative change is seen at the right lung base. Dense consolidative changes identified in the left upper lung. Mild patchy consolidation is seen in the left lower lobe. No pleural effusion is identified. The trachea is clear. Mediastinum: There is no mediastinal lymphadenopathy. Birdie: Clear. Axillae: There is no axillary lymphadenopathy. Upper abdomen: A tiny hiatal hernia is noted. A 1.6 cm cyst arises from the upper pole of the right kidney. Small hepatic cysts measure up to 1.2 cm. Skeletal structures: The skeletal structures are osteopenic. Degenerative change is seen throughout the thoracic spine and in the shoulders. No lytic or blastic bony lesions are seen. IMPRESSION: 1. There is no evidence of pulmonary embolus in the main, lobar, or segmental pulmonary arteries. 2. Advanced emphysema and postoperative change from left-sided pulmonary resection. 3. There is dense airspace consolidation in the right upper lobe. Milder patchy consolidative change is seen in the lower lobes, right greater than left. The appearance is most typical for multifocal pneumonia. Clinical correlation will be essential and radiographic follow-up to resolution is recommended. 4. Dense consolidative change is also seen in the left upper lung. This could also represent pneumonia or possibly fibrosis/post radiation change. Recurrent/residual neoplasm would be impossible to exclude. Attention at follow-up is recommended. 5. No mediastinal adenopathy is identified. 6. Additional findings as above. Electronically signed by: Demario Geller M.D. 12/26/2017 3:38 PM Dictated Date/Time: 12/26/2017 3:28 PM CHEST ONE VIEW PORTABLE CLINICAL HISTORY: Evaluate Fever/Sepsis clear. Sepsis. COMPARISON STUDY: 10/18/2016 FINDINGS: Interval development parenchymal infiltrate peripheral aspect right midlung. Interval development of increased density left pulmonary apex. Central catheter remains in superior vena cava. Diaphragms are smooth. IMPRESSION: 1. Interval development of bilateral slightly atypical parenchymal infiltrates. 2. This study should be repeated later date following appropriate treatment to ensure complete resolution. 3. If these infiltrative changes do not completely resolve, CT of the chest would be suggested. The above report was generated using voice recognition software. It may contain grammatical, syntax or spelling errors. Electronically signed by: Ezekiel Collier M.D. 12/26/2017 2:21 PM Dictated Date/Time: 12/26/2017 2:19 PM Laboratory Results 12/26/17 14:05 Red Blood Count 4.08, Mean Corpuscular Volume 86.0, Mean Corpuscular Hemoglobin 29.7, Mean Corpuscular Hemoglobin Concent 34.5, Mean Platelet Volume 9.1, Neutrophils (%) (Auto) 92.7, Lymphocytes (%) (Auto) 1.5, Monocytes (%) (Auto) 5.3, Eosinophils (%) (Auto) 0.0, Basophils (%) (Auto) 0.0, Neutrophils # (Auto) 29.43, Lymphocytes # (Auto) 0.48, Monocytes # (Auto) 1.67, Eosinophils # (Auto) 0.00, Basophils # (Auto) 0.01 12/26/17 14:05 Test 12/26/17 14:05 12/26/17 14:13 12/26/17 14:18 12/26/17 14:22 White Blood Count 31.76 K/uL (4.8-10.8) Red Blood Count 4.08 M/uL (4.7-6.1) Hemoglobin 12.1 g/dL (14.0-18.0) Hematocrit 35.1 % (42-52) Mean Corpuscular Volume 86.0 fL (80-100) Mean Corpuscular Hemoglobin 29.7 pg (25-34) Mean Corpuscular Hemoglobin Concent 34.5 g/dl (32-36) Platelet Count 382 K/uL (130-400) Mean Platelet Volume 9.1 fL (7.4-10.4) Neutrophils (%) (Auto) 92.7 % Lymphocytes (%) (Auto) 1.5 % Monocytes (%) (Auto) 5.3 % Eosinophils (%) (Auto) 0.0 % Basophils (%) (Auto) 0.0 % Neutrophils # (Auto) 29.43 K/uL (1.4-6.5) Lymphocytes # (Auto) 0.48 K/uL (1.2-3.4) Monocytes # (Auto) 1.67 K/uL (0.11-0.59) Eosinophils # (Auto) 0.00 K/uL (0-0.5) Basophils # (Auto) 0.01 K/uL (0-0.2) RDW Standard Deviation 43.9 fL (36.4-46.3) RDW Coefficient of Variation 13.9 % (11.5-14.5) Immature Granulocyte % (Auto) 0.5 % Immature Granulocyte # (Auto) 0.17 K/uL (0.00-0.02) Toxic Vacuolation 1+ Prothrombin Time 12.0 SECONDS (9.0-12.0) Prothromb Time International Ratio 1.1 (0.9-1.1) Activated Partial Thromboplast Time 38.8 SECONDS (21.0-31.0) Partial Thromboplastin Ratio 1.5 D-Dimer 1200 ug/L FEU (0-500) Est Creatinine Clear Calc Drug Dose 35.3 ml/min Estimated GFR () 53.3 Estimated GFR (Non- 46.0 BUN/Creatinine Ratio 15.5 (10-20) Calcium Level 9.3 mg/dl (8.5-10.1) Total Bilirubin 1.4 mg/dl (0.2-1) Direct Bilirubin 0.3 mg/dl (0-0.2) Aspartate Amino Transf (AST/SGOT) 12 U/L (15-37) Alanine Aminotransferase (ALT/SGPT) 23 U/L (12-78) Alkaline Phosphatase 110 U/L (45-117) Total Protein 8.2 gm/dl (6.4-8.2) Albumin 3.1 gm/dl (3.4-5.0) Lipase 66 U/L (73-393) Influenza Type A Antigen Neg for Influ A (NEG) Influenza Type B Antigen Neg for Influ B (NEG) Bedside Troponin I < 0.030 ng/ml (0-0.045) Bedside Hemoglobin 12.2 g/dl (14.0-18.0) Bedside Hematocrit 36 % (42-52) Bedside Sodium 135 mEq/L (135-144) Bedside Potassium 4.2 mEq/L (3.3-5.0) Bedside Chloride 100 mEq/L (101-112) Bedside Total CO2 24 mEq/l (24-31) Anion Gap 17.0 mmol/L (16-25) Bedside Blood Urea Nitrogen 23 mg/dl (7-18) Bedside Creatinine 1.3 mg/dl (0.6-1.3) Bedside Glucose (other) 189 mg/dl (70-99) Bedside Ionized Calcium (Asael) 1.12 mmol/l (1.12-1.32) Venous Blood pH 7.44 (7.36-7.41) Venous Blood Partial Pressure CO2 36 mmHg (38.0-50.0) Venous Blood Partial Pressure O2 28 mmHg Venous Blood HCO3 24 mmol/L Venous Blood Oxygen Saturation < 60.0 % Venous Blood Base Excess 0.4 mEq/L Test 12/26/17 14:24 12/26/17 17:11 Bedside Lactic Acid Venous 3.22 mmol/L (0.90-1.70) Laboratory results reviewed by me Medications Administered Medications (Trade) Dose Ordered Sig/Vianey Route Start Time Stop Time Status Last Admin Dose Admin Sodium Chloride 1,000 ml @ 999 mls/hr Q1H1M STAT IV 12/26/17 13:56 12/26/17 14:56 DC 12/26/17 14:23 999 MLS/HR Piperacillin Sod/ Tazobactam Sod (Zosyn Iv) 4.5 gm NOW STAT IV 12/26/17 13:56 12/26/17 14:00 DC 12/26/17 14:31 4.5 GM Sodium Chloride 1,000 ml @ 999 mls/hr Q1H1M STAT IV 12/26/17 13:56 12/26/17 14:56 DC 12/26/17 14:23 999 MLS/HR Vancomycin HCl 1250 mg/Sodium Chloride 275 ml @ 125 mls/hr ONE ONCE IV 12/26/17 14:15 12/26/17 16:26 DC 12/26/17 15:25 125 MLS/HR Albuterol/ Ipratropium (Duoneb) 3 ml STK-MED ONCE .ROUTE 12/26/17 16:01 12/26/17 16:02 DC 12/26/17 16:11 3 ML Magnesium Sulfate (Magnesium Sulfate) 1 gm STK-MED ONCE .ROUTE 12/26/17 16:12 12/26/17 16:13 DC 12/26/17 16:30 1 GM ECG Per My Interpretation Indication: chest pain Rate (beats per minute): 137 Rhythm: sinus tachycardia Findings: other (Normal Intervals, RAD) ED Course 1352: The patient was evaluated in room B1. A complete history and physical exam was performed. 1356: Ordered Sodium Chloride 1000 mL @ 999 mL/hr IV, Zosyn 4.5 gm IV, Sodium Chloride 1000 mL @ 999 mL/hr IV. 1415: Ordered Vancomycin 275 mL 125 mL/hr IV. 1444: I discussed the case with Dr. Reji Chen - [facility] Hospitalist. He will evaluate the patient for further treatment. Medical Decision The patient is a 72 year old white male with a history of Left Upper Lobe Carcinoma, Diabetes, Hyperlipidemia, Hypertension, and Myocardial Infarction, who presents to the Emergency Room with complaints of waxing and waning chest pain that began this morning, a few hours prior to arrival. Differential diagnosis: Etiologies such as cardiac ischemia, aortic dissection, pulmonary embolism, pneumonia, pneumothorax, musculoskeletal, infections, pericarditis, myocarditis , esophageal rupture, gastrointestinal, as well as others were entertained. Prior records were reviewed. Patient was seen and evaluated at the bedside. Patient was presenting with intermittent chest pains. Patient describes it as all over. This is more present today. Patient has had a productive cough with yellow sputum. Patient does have a prior history of left upper lobe small cell carcinoma. Patient does have a chest port in the right chest. Patient has not had chemotherapy in approximately 1 year. Patient denies any active chest pain. Patient is tachycardic. Patient did have blood work, EKG, troponin, BNP, broad-spectrum antibiotics, IV fluids, VBG, lactate, chest x-ray. Patient chest x-ray concerning for right midlung pneumonia. Patient was Nik started on broad-spectrum and aquatics. Patient's EKG did show sinus tachycardia but without any ischemic changes. Flu was negative. Given the patient's multifocal pneumonia with sepsis the patient was admitted to the medicine service. I did reassess the patient as the patient was having some tightness. Patient was given duo nebs and mag. Patient was also given additional IV fluids. The patient has had some mildly decreased O2 saturations. Patient was increased from 2 L to 6 L nasal cannula with humidifier. I had initially recommended high flow nasal cannula to help with some PEEP as well as oxygenation however respiratory preferred 6 L first. Patient's white blood cell count was 30,000. Patient does have a neutrophilic predominance. This is concerning for infection. Patient did have an elevated d -dimer so CT PE protocol was performed. The patient did have a mild lactic acidosis. Patient was receiving fluids. The patient was maintaining well on nasal cannula. Patient CT PE protocol did not show any evidence of acute PE however did show emphysematous change as well as concern for multifocal pneumonia. The patient was already started on broad-spectrum antibiotics and was given IV fluids. Medication Reconcilliation Current Medication List: was personally reviewed by me Blood Pressure Screening Patient's blood pressure: Low blood pressure Referred to hospitalist. Consults Time Called: 1434 Consulting Physician: Dr. Reji HERRING Hospitalist Returned Call: 1444 I discussed the case with Dr. Reji HERRING Hospitalist. He will evaluate the patient for further treatment. Impression Primary Impression: Pneumonia Additional Impressions: Leukocytosis Hx of cancer of lung Sepsis Critical Care I have personally spent greater than 42 minutes of critical care time in the direct management of this patient. This includes bedside care, interpretation of diagnostic studies, and testing, discussion with consultants, patient, and family members, and other required patient management activities. This 42 minutes is in excess of all separately billable procedures. Scribe Attestation The scribe's documentation has been prepared under my direction and personally reviewed by me in its entirety. I confirm that the note above accurately reflects all work, treatment, procedures, and medical decision making performed by me. Departure Information Dispostion Being Evaluated By Hospitalist Referrals Charles Vera M.D. (PCP) Patient Instructions My [facility] Problem Qualifiers Primary Impression: Pneumonia Pneumonia type: due to unspecified organism Laterality: right Lung location : middle lobe of lung Qualified Codes: J18.1 - Lobar pneumonia, unspecified organism Additional Impressions: Leukocytosis Leukocytosis type: bandemia Qualified Codes: D72.825 - Bandemia Sepsis Sepsis type: sepsis due to unspecified organism Qualified Codes: A41.9 - Sepsis, unspecified organism
[2017-12-26] MEDS ORDERED: LISI-729 PO (14:09)
[2017-12-26] MEDS ORDERED: VANCOMYCIN IV 1,250 MG in SODIUM CHLORIDE 0.9% 250ML 250 ML IV ONE (14:15)
--- NOTE | 2017-12-26 14:22 | DIAGNOSTIC IMAGING REPORT ---
CHEST ONE VIEW PORTABLE CLINICAL HISTORY: Evaluate Fever/Sepsis clear. Sepsis. COMPARISON STUDY: 10/18/2016 FINDINGS: Interval development parenchymal infiltrate peripheral aspect right midlung. Interval development of increased density left pulmonary apex. Central catheter remains in superior vena cava. Diaphragms are smooth. IMPRESSION: 1. Interval development of bilateral slightly atypical parenchymal infiltrates. 2. This study should be repeated later date following appropriate treatment to ensure complete resolution. 3. If these infiltrative changes do not completely resolve, CT of the chest would be suggested. The above report was generated using voice recognition software. It may contain grammatical, syntax or spelling errors. Electronically signed by: Ezekiel Collier M.D. 12/26/2017 2:21 PM Dictated Date/Time: 12/26/2017 2:19 PM
[2017-12-26 14:32] LABS: ISTAT CREATININE 1.3 mg/dl (0.6-1.3); ISTAT IONIZED CALCIUM 1.12 mmol/l (1.12-1.32); ISTAT POTASSIUM 4.2 mEq/L (3.3-5.0)
[2017-12-26 14:39] LABS: ALBUMIN 3.1 gm/dl (3.4-5.0); CALCIUM 9.3 mg/dl (8.5-10.1); CREATININE 1.48 mg/dl (0.60-1.40)
[2017-12-26 14:41] LABS: HEMATOCRIT 35.1 % (42-52); HEMOGLOBIN 12.1 g/dL (14.0-18.0); MEAN CORPUSCULAR HEMOGLOBIN 29.7 pg (25-34); MEAN CORPUSCULAR HGB CONC 34.5 g/dl (32-36); MEAN PLATELET VOLUME 9.1 fL (7.4-10.4); PLATELET COUNT 382 K/uL (130-400); RED CELL DISTRIBUTION WIDTH CV 13.9 % (11.5-14.5); RED CELL DISTRIBUTION WIDTH SD 43.9 fL (36.4-46.3); WHITE BLOOD COUNT 31.76 K/uL (4.8-10.8)
[2017-12-26 14:42] LABS: TOTAL PROTEIN 8.2 gm/dl (6.4-8.2)
[2017-12-26 14:43] LABS: INR 1.1 (0.9-1.1); PTT PATIENT 38.8 SECONDS (21.0-31.0)
[2017-12-26] MEDS ORDERED: FINA5TAB PO (14:45)
[2017-12-26] MEDS ORDERED: GLIP2.5T11 PO (14:45)
[2017-12-26 14:51] LABS: BASO ABS # 0.01 K/uL (0-0.2); IG# 0.17 K/uL (0.00-0.02); LYMPH % 1.5 %; LYMPH ABS # 0.48 K/uL (1.2-3.4); MONO % 5.3 %; MONO ABS # 1.67 K/uL (0.11-0.59); NEUT % 92.7 %; NEUT ABS # 29.43 K/uL (1.4-6.5)
[2017-12-26] MEDS ORDERED: OPTIRAY 320 IV PRN (15:00)
[2017-12-26 15:07] LABS: INFLUENZA B ANTIGEN Neg for Influ B (NEG)
[2017-12-26] MEDS ORDERED: CLOP1TAB15 PO (15:36)
[2017-12-26] MEDS ORDERED: ASPI81TA28 PO (15:37)
--- NOTE | 2017-12-26 15:39 | DIAGNOSTIC IMAGING REPORT ---
CT ANGIOGRAM OF THE CHEST CLINICAL HISTORY: Atypical chest pain. COMPARISON STUDY: Chest x-ray dated 12/26/2017. Chest CT dated 01/21/2016. TECHNIQUE: Following the IV administration of 94 cc of Optiray 320, CT angiogram of the chest was performed from the upper abdomen to the thoracic inlet utilizing the pulmonary embolus protocol. Images are reviewed in the axial, sagittal, and coronal planes. 3-D MIPS images are created and assessed. IV contrast was administered without complication. A dose lowering technique was utilized adhering to the principles of ALARA. The examination is degraded by motion artifact. CT DOSE: 417.97 mGycm FINDINGS: Thyroid: Imaged portions of the thyroid gland are normal in size and attenuation. Thoracic aorta: There is atherosclerotic calcification of the thoracic aorta, which is normal in caliber and demonstrates standard 3-vessel arch anatomy. No dissection is seen. Pulmonary vasculature: The pulmonary trunk is normal in caliber. There are no filling defects identified in main, lobar, or segmental pulmonary branches to suggest pulmonary embolus. A left subclavian central venous infusion port is in place. Heart: The heart is normal in size and there is a small pericardial effusion. The coronary arteries are densely calcified. Lungs and pleural spaces: Advanced emphysema is noted. There are postoperative changes from left upper lobe resection with volume loss in the left lung and compensatory hyperinflation of the right lung. There is dense airspace consolidation identified in the right upper lobe. Mild patchy consolidative change is seen at the right lung base. Dense consolidative changes identified in the left upper lung. Mild patchy consolidation is seen in the left lower lobe. No pleural effusion is identified. The trachea is clear. Mediastinum: There is no mediastinal lymphadenopathy. Birdie: Clear. Axillae: There is no axillary lymphadenopathy. Upper abdomen: A tiny hiatal hernia is noted. A 1.6 cm cyst arises from the upper pole of the right kidney. Small hepatic cysts measure up to 1.2 cm. Skeletal structures: The skeletal structures are osteopenic. Degenerative change is seen throughout the thoracic spine and in the shoulders. No lytic or blastic bony lesions are seen. IMPRESSION: 1. There is no evidence of pulmonary embolus in the main, lobar, or segmental pulmonary arteries. 2. Advanced emphysema and postoperative change from left-sided pulmonary resection. 3. There is dense airspace consolidation in the right upper lobe. Milder patchy consolidative change is seen in the lower lobes, right greater than left. The appearance is most typical for multifocal pneumonia. Clinical correlation will be essential and radiographic follow-up to resolution is recommended. 4. Dense consolidative change is also seen in the left upper lung. This could also represent pneumonia or possibly fibrosis/post radiation change. Recurrent/residual neoplasm would be impossible to exclude. Attention at follow-up is recommended. 5. No mediastinal adenopathy is identified. 6. Additional findings as above. Electronically signed by: Demario Geller M.D. 12/26/2017 3:38 PM Dictated Date/Time: 12/26/2017 3:28 PM
[2017-12-26] MEDS ORDERED: SODIUM CHLORIDE 0.9% 1000ML 1,000 ML IV SCH (15:57)
--- NOTE | 2017-12-26 15:57 | History and Physical ---
History & Physical Date & Time of Service: Dec 26, 2017 at 15:47 Chief Complaint: Chest Pain Primary Care Physician: Charles Vera M.D. 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 The patient notes that about 3 weeks ago he had a head cold where he had significant runny nose and mucus production. It seemed to get better after a short timeframe but then returned. He has been progressively feeling more weak and tired, and slightly short of breath compared to his baseline with minimal exertion. He normally does not wear any supplemental O2. He denies any fevers or sweats, however has noticed being very chilled in the past 24 hours. He has not taken any OTC medications to alleviate his symptoms. He developed a cough which is very coarse, initially nonproductive but now since having nebulizer treatment seems to be productive. His is present at bedside who also has a similar cold. They admit to recent sick contacts including their son, daughter and grandchild within the past week. Here in the ER white blood count is equal to 32K, Cr. 1.48. HR is tachycardic in the 120s and upwards into the 150s when he is asked to lean forward for me to auscultate posterior lung watts Patient is on 2 L of oxygen, and currently receiving nebulizer treatment. Blood pressure is 102/61. Past Medical/Surgical History Medical Problems: (1) Anemia (2) BPH (benign prostatic hyperplasia) (3) CAD (coronary artery disease) (4) CKD stage 3 due to type 2 diabetes mellitus (5) COPD (chronic obstructive pulmonary disease) (6) DM II (diabetes mellitus, type II), controlled (7) Enlarged prostate (8) HLD (hyperlipidemia) (9) HTN (hypertension) (10) Hx of myocardial infarction (11) TX (myocardial infarction) (12) PVD (peripheral vascular disease) Small cell carcinoma of the CHATA, s/p chemo prophylactic cranial XRT Surgical Problems: (1) History of heart artery stent Family History FH: anemia FH: myocardial infarction Hypertension Type II diabetes mellitus Social History Smoking Status: Former Smoker Smokeless Tobacco Use: No Alcohol Use: none Drug Use: none Marital Status: Housing status: lives with family Occupational Status: retired Immunizations History of Influenza Vaccine: Yes Influenza Vaccine Date: Jul 29, 2015 History of Tetanus Vaccine?: Unknown Tetanus Immunization Date: Nov 22, 2002 History of Pneumococcal: Unknown History of Hepatitis B Vaccine: Unknown Allergies Coded Allergies: No Known Allergies (Verified , 11/03/16) Home Medications Scheduled Aspirin (Aspirin Ec), 81 MG PO DAILY Clopidogrel (Plavix), 75 MG PO DAILY Finasteride (Proscar), 5 MG PO QAM Glipizide (Glipizide Er), 2.5 MG PO QAM Lisinopril (Zestril), 5 MG PO DAILY Metformin Hcl (Glucophage), 1,000 MG PO BID Metoprolol Succinate (Toprol Xl), 50 MG PO QAM Multiple Vitamins W/ Minerals (Centrum Silver Adult 50+), 1 TAB PO QAM Simvastatin (Zocor), 80 MG PO HS Review of Systems Constitutional: No fever, sweats, + chills Eyes: No diplopia, no worsening or blurred vision ENT: normal hearing, no trouble swallowing Respiratory: See HPI Cardiovascular: No chest pain, tightness or palpitations Abdomen: No pain, nausea, vomiting,or constipation + hx of diarrhea Musculoskeletal: No joint pain, calf pain, swelling Neurologic: No weakness, numbness/tingling, or balance problems Psychiatric: No anxiety or depression Skin: No rash or itch Physical Exam Vital Signs Date Time Temp Pulse Resp B/P (MAP) Pulse Ox O2 Delivery O2 Flow Rate FiO2 12/26/17 15:22 117 24 102/61 97 Room Air 12/26/17 14:36 124 20 103/60 95 Nasal Cannula 2.0 12/26/17 14:24 132 12/26/17 13:58 Nasal Cannula 2.0 12/26/17 13:52 92 Room Air 12/26/17 13:50 36.4 137 22 96/66 91 Room Air General: awake, alert, mild distress Head: Normocephalic, atraumatic ENT: PERRL, EOMI, no pharyngeal exudate, mucous membranes moist Chest: On 2 L via NC, receiving nebulizer treatment, coarse bronchial breath sounds, diminished airflow in the RLL, RML. Faint inspiratory and expiratory wheeze in the LLL, slightly better aeration in the CHATA. Cardiac: +tachycardia, no murmur, no JVD, poor posterior tibial pulses Abdominal: NABS x 4 quadrants, soft, nontender to palpation, no rebound, guarding or tenderness Extremities: Normal inspection, no peripheral edema or erythema, calfs nontender to palpation Psych: Normal mood and affect Neuro: AAO x 3, strength intact bilaterally and related 5/5, no motor deficits, speech is clear, no peripheral sensory deficits Diagnostics Laboratory Results Results Past 24 Hours Test 12/26/17 14:05 12/26/17 14:13 12/26/17 14:18 12/26/17 14:22 Range/Units White Blood Count 31.76 4.8-10.8 K/uL Red Blood Count 4.08 4.7-6.1 M/uL Hemoglobin 12.1 14.0-18.0 g/dL Hematocrit 35.1 42-52 % Mean Corpuscular Volume 86.0 80-100 fL Mean Corpuscular Hemoglobin 29.7 25-34 pg Mean Corpuscular Hemoglobin Concent 34.5 32-36 g/dl Platelet Count 382 130-400 K/uL Mean Platelet Volume 9.1 7.4-10.4 fL Neutrophils (%) (Auto) 92.7 % Lymphocytes (%) (Auto) 1.5 % Monocytes (%) (Auto) 5.3 % Eosinophils (%) (Auto) 0.0 % Basophils (%) (Auto) 0.0 % Neutrophils # (Auto) 29.43 1.4-6.5 K/uL Lymphocytes # (Auto) 0.48 1.2-3.4 K/uL Monocytes # (Auto) 1.67 0.11-0.59 K/uL Eosinophils # (Auto) 0.00 0-0.5 K/uL Basophils # (Auto) 0.01 0-0.2 K/uL RDW Standard Deviation 43.9 36.4-46.3 fL RDW Coefficient of Variation 13.9 11.5-14.5 % Immature Granulocyte % (Auto) 0.5 % Immature Granulocyte # (Auto) 0.17 0.00-0.02 K/uL Toxic Vacuolation 1+ Prothrombin Time 12.0 9.0-12.0 SECONDS Prothromb Time International Ratio 1.1 0.9-1.1 Activated Partial Thromboplast Time 38.8 21.0-31.0 SECONDS Partial Thromboplastin Ratio 1.5 D-Dimer 1200 0-500 ug/L FEU Sodium Level 132 136-145 mmol/L Potassium Level 4.0 3.5-5.1 mmol/L Chloride Level 100 98-107 mmol/L Carbon Dioxide Level 23 21-32 mmol/L Anion Gap 9.0 17.0 16-25 mmol/L Blood Urea Nitrogen 23 7-18 mg/dl Creatinine 1.48 0.60-1.40 mg/dl Est Creatinine Clear Calc Drug Dose 35.3 ml/min Estimated GFR () 53.3 Estimated GFR (Non- 46.0 BUN/Creatinine Ratio 15.5 10-20 Random Glucose 184 70-99 mg/dl Calcium Level 9.3 8.5-10.1 mg/dl Total Bilirubin 1.4 0.2-1 mg/dl Direct Bilirubin 0.3 0-0.2 mg/dl Aspartate Amino Transf (AST/SGOT) 12 15-37 U/L Alanine Aminotransferase (ALT/SGPT) 23 12-78 U/L Alkaline Phosphatase 110 45-117 U/L Total Protein 8.2 6.4-8.2 gm/dl Albumin 3.1 3.4-5.0 gm/dl Lipase 66 73-393 U/L Influenza Type A Antigen Neg for Influ A NEG Influenza Type B Antigen Neg for Influ B NEG Bedside Troponin I < 0.030 0-0.045 ng/ml Bedside Hemoglobin 12.2 14.0-18.0 g/dl Bedside Hematocrit 36 42-52 % Bedside Sodium 135 135-144 mEq/L Bedside Potassium 4.2 3.3-5.0 mEq/L Bedside Chloride 100 101-112 mEq/L Bedside Total CO2 24 24-31 mEq/l Bedside Blood Urea Nitrogen 23 7-18 mg/dl Bedside Creatinine 1.3 0.6-1.3 mg/dl Bedside Glucose (other) 189 70-99 mg/dl Bedside Ionized Calcium (Asael) 1.12 1.12-1.32 mmol/l Venous Blood pH 7.44 7.36-7.41 Venous Blood Partial Pressure CO2 36 38.0-50.0 mmHg Venous Blood Partial Pressure O2 28 mmHg Venous Blood HCO3 24 mmol/L Venous Blood Oxygen Saturation < 60.0 % Venous Blood Base Excess 0.4 mEq/L Test 12/26/17 14:24 Range/Units Bedside Lactic Acid Venous 3.22 0.90-1.70 mmol/L Microbiology Results 12/26/17 Blood Culture, Received Pending 12/26/17 Blood Culture, Received Pending Diagnostic Radiology CT ANGIOGRAM OF THE CHEST CLINICAL HISTORY: Atypical chest pain. COMPARISON STUDY: Chest x-ray dated 12/26/2017. Chest CT dated 01/21/2016. TECHNIQUE: Following the IV administration of 94 cc of Optiray 320, CT angiogram of the chest was performed from the upper abdomen to the thoracic inlet utilizing the pulmonary embolus protocol. Images are reviewed in the axial, sagittal, and coronal planes. 3-D MIPS images are created and assessed. IV contrast was administered without complication. A dose lowering technique was utilized adhering to the principles of ALARA. The examination is degraded by motion artifact. CT DOSE: 417.97 mGycm FINDINGS: Thyroid: Imaged portions of the thyroid gland are normal in size and attenuation. Thoracic aorta: There is atherosclerotic calcification of the thoracic aorta, which is normal in caliber and demonstrates standard 3-vessel arch anatomy. No dissection is seen. Pulmonary vasculature: The pulmonary trunk is normal in caliber. There are no filling defects identified in main, lobar, or segmental pulmonary branches to suggest pulmonary embolus. A left subclavian central venous infusion port is in place. Heart: The heart is normal in size and there is a small pericardial effusion. The coronary arteries are densely calcified. Lungs and pleural spaces: Advanced emphysema is noted. There are postoperative changes from left upper lobe resection with volume loss in the left lung and compensatory hyperinflation of the right lung. There is dense airspace consolidation identified in the right upper lobe. Mild patchy consolidative change is seen at the right lung base. Dense consolidative changes identified in the left upper lung. Mild patchy consolidation is seen in the left lower lobe. No pleural effusion is identified. The trachea is clear. Mediastinum: There is no mediastinal lymphadenopathy. Birdie: Clear. Axillae: There is no axillary lymphadenopathy. Upper abdomen: A tiny hiatal hernia is noted. A 1.6 cm cyst arises from the upper pole of the right kidney. Small hepatic cysts measure up to 1.2 cm. Skeletal structures: The skeletal structures are osteopenic. Degenerative change is seen throughout the thoracic spine and in the shoulders. No lytic or blastic bony lesions are seen. IMPRESSION: 1. There is no evidence of pulmonary embolus in the main, lobar, or segmental pulmonary arteries. 2. Advanced emphysema and postoperative change from left-sided pulmonary resection. 3. There is dense airspace consolidation in the right upper lobe. Milder patchy consolidative change is seen in the lower lobes, right greater than left. The appearance is most typical for multifocal pneumonia. Clinical correlation will be essential and radiographic follow-up to resolution is recommended. 4. Dense consolidative change is also seen in the left upper lung. This could also represent pneumonia or possibly fibrosis/post radiation change. Recurrent/residual neoplasm would be impossible to exclude. Attention at follow-up is recommended. 5. No mediastinal adenopathy is identified. 6. Additional findings as above. Electronically signed by: Demario Geller M.D. 12/26/2017 3:38 PM Dictated Date/Time: 12/26/2017 3:28 PM The status of this report is Signed. CHEST ONE VIEW PORTABLE CLINICAL HISTORY: Evaluate Fever/Sepsis clear. Sepsis. COMPARISON STUDY: 10/18/2016 FINDINGS: Interval development parenchymal infiltrate peripheral aspect right midlung. Interval development of increased density left pulmonary apex. Central catheter remains in superior vena cava. Diaphragms are smooth. IMPRESSION: 1. Interval development of bilateral slightly atypical parenchymal infiltrates. 2. This study should be repeated later date following appropriate treatment to ensure complete resolution. 3. If these infiltrative changes do not completely resolve, CT of the chest would be suggested. The above report was generated using voice recognition software. It may contain grammatical, syntax or spelling errors. Electronically signed by: Ezekiel Collier M.D. 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 COPD, emphysema - Admit to tele - CXR reviewed, CTPE is negative - WBC of 32 K, started on vanc and zosyn - Continue xopenex duonebs, O2 protocol, supportive therapy with incentive spirometry, mucinex - pt does not wear supplemental O2 at baseline - Speech therapy consult to r/o aspiration - Will start on NSS at 100mL/hr x 1 day with poor po intake, pt received 2 L in the ER-caution for volume overload in the setting of CHF - Lung cancer stable, has a PET scan scheduled in 2 months - Will hold on steroids at this time with hx of cancer - PT/OT Tachycardia/ Hypotension Diastolic CHF CAD s/p multiple MILLIE and 1 bare metal stent Ischemic Cardiomyopathy - Will trend troponins to r/o TX with pts significant cardiac hx, initial POC trop was negative, add on a troponin to inital labs - Check echocardiogram to determine EF patient follows with Dr. Walter as an outpatient, most recent note from August 2017 indicates an EF of 60%. Most recent echocardiogram in [facility] seems to be from February 2017 and shows an EF of 20-30% . - Will hold lisinopril for now - Continue on asa 81 mg, plavix, and Toprol XL 50 mg QAM CKD stage III, possible GHANSHYAM - Cr 1.48, baseline of 1.2 - Will start the patient on F as above DM II - Hold Metformin and glipizide -Check hemoglobin A1c with a.m. labs -Cover with insulin sliding scale and Accu-Cheks ACHS BPH - Continue finasteride DVT ppx: Teds, scds CODE STATUS: FULL CODE Disposition: From home, lives with , CM to assist with dc planning I personally interviewed and examined the patient. I agree with history of present illness and physical exam mentioned above, I also performed my own history taking and examination. Past medical history and review of system has been obtained by myself I reviewed all pertinent labs and studies Reviewed current medications I discussed and formulated of the assessment and plan mentioned above. Please refer to the Summary mentioned below. 72-year-old man with past medical history of CAD, dyslipidemia, chronic diastolic congestive heart failure, peripheral vascular disease who was diagnosed 2 years ago with SC LC status post chemotherapy presented to the hospital with multilobar pneumonia. We will admit to telemetry, broad-spectrum antibiotics, blood culture and sputum culture, urine Legionella check. General Appearance: not in acute distress Eyes: normal Sclerae, extraocular muscle intact ENT: hearing grossly normal Neck: supple Respiratory/Chest: normal air entry bilateral ,no respiratory distress, no accessory muscle use Cardiovascular: regular rate, rhythm, no murmur Abdomen: non tender, soft, no masses Extremities: no edema Neurologic/Psychiatric: Awake alert oriented times place and person moves all extremities sensation intact cranial nerves II-12 appear to be intact Skin: normal color, warm/dry, no rash Judy Chen MD, [facility] Advanced Directives Existing Advance Directive: No Existing Living Will: No Resuscitation Status VTE Prophylaxis Will order VTE Prophylaxis: Yes
[2017-12-26] MEDS ORDERED: ONDANSETRON INJ 2 MG/ML 2 ML VIAL IV PRN (16:00)
[2017-12-26] MEDS ORDERED: POLYETHYLENE (MIRALAX) 17 GM PACK PO PRN (16:00)
[2017-12-26] MEDS ORDERED: ALBUT/IPRATROP 3MG/0.5MG NEB 3 ML VIAL ONE (16:01)
[2017-12-26] MEDS ORDERED: ALBUT/IPRATROP 3MG/0.5MG NEB 3 ML VIAL INH STA (16:01)
[2017-12-26] MEDS ORDERED: MAGNESIUM SULFATE 1GM / D5W 1 GM BAG ONE (16:12)
[2017-12-26] MEDS ORDERED: PIPERACILL/TAZOBAC CONSULT ACTIVE PRN (16:15)
[2017-12-26] MEDS ORDERED: MAGNESIUM SULFATE 1GM / D5W 1 GM BAG IV STA (16:36)
[2017-12-26 16:48] VITALS: O2SAT 93; BMI 19.1
[2017-12-26] MEDS: SODIUM CHLORIDE 0.9% 1000ML 1,000 ML IV SCH (17:54)
[2017-12-26] MEDS ORDERED: DEXTROSE 50% 50 ML SYR IV PRN (19:45)
[2017-12-26] MEDS ORDERED: GLUCOSE 10 TABS/TUBE PO PRN (19:45)
[2017-12-26] MEDS ORDERED: GLUCOSE 40% GEL 15 GM TUBE PO PRN (19:45)
[2017-12-26] MEDS ORDERED: GLUCAGON FOR INJ 1 MG VIAL SQ PRN (19:45)
[2017-12-26] MEDS: LEVALBUTEROL 1.25MG/3ML NEB INH SCH (19:57)
[2017-12-26 20:43] VITALS: BP 105/66; PULSE 105; TEMP 36.9; O2SAT 94
[2017-12-26] MEDS: INSULIN ASPART 100 UNITS/ML 3 ML PEN SC SCH (21:00)
[2017-12-26] MEDS ORDERED: VANCOMYCIN IV 1,000 MG in SODIUM CHLORIDE 0.9% 250ML 250 ML IV SCH (21:00)
--- NOTE | 2017-12-26 21:12 | Pharmacy Progress Note ---
Pharmacy Abx Initial Consult Date of Service Dec 26, 2017. Pharmacy Dosing Scope Date of Consult: 12/26/17 Consultation requested by: Payton Baldwin [facility] is consulted to initiate Vancomycin and Zosyn IV dosing therapy, order appropriate labs and adjust drug dose/frequency. Subjective The patient is a 72 year old male admitted on Dec 26, 2017 at 20:44. Objective Height (Feet): 5 Height (Inches): 8.00 Weight (Kilograms): 65.600 Vital Signs (Past 12Hrs) Vital Signs Past 12 Hours Date Time Temp Pulse Resp B/P (MAP) Pulse Ox O2 Delivery O2 Flow Rate FiO2 12/26/17 20:43 36.9 105 21 105/66 (79) 94 Nasal Cannula 6.0 12/26/17 20:03 101 22 103/57 97 12/26/17 18:38 107 22 89/53 96 Nasal Cannula 6.0 12/26/17 18:23 111 12/26/17 17:49 37.6 115 24 91/56 91 Nasal Cannula 6.0 12/26/17 16:48 93 Nasal Cannula 2.0 12/26/17 16:31 131 29 100/71 93 Nasal Cannula 2.0 12/26/17 15:22 117 24 102/61 97 Room Air 12/26/17 14:36 124 20 103/60 95 Nasal Cannula 2.0 12/26/17 14:24 132 12/26/17 13:58 Nasal Cannula 2.0 12/26/17 13:52 92 Room Air 12/26/17 13:50 36.4 137 22 96/66 91 Room Air Lab Results (24Hrs) Laboratory Tests (24 Hours) Test 12/26/17 14:05 12/26/17 20:17 White Blood Count 31.76 K/uL (4.8-10.8) *H Red Blood Count 4.08 M/uL (4.7-6.1) L Hemoglobin 12.1 g/dL (14.0-18.0) L Hematocrit 35.1 % (42-52) L Mean Corpuscular Volume 86.0 fL (80-100) Mean Corpuscular Hemoglobin 29.7 pg (25-34) Mean Corpuscular Hemoglobin Concent 34.5 g/dl (32-36) Platelet Count 382 K/uL (130-400) Mean Platelet Volume 9.1 fL (7.4-10.4) Neutrophils (%) (Auto) 92.7 % Lymphocytes (%) (Auto) 1.5 % Monocytes (%) (Auto) 5.3 % Eosinophils (%) (Auto) 0.0 % Basophils (%) (Auto) 0.0 % Neutrophils # (Auto) 29.43 K/uL (1.4-6.5) H Lymphocytes # (Auto) 0.48 K/uL (1.2-3.4) L Monocytes # (Auto) 1.67 K/uL (0.11-0.59) H Eosinophils # (Auto) 0.00 K/uL (0-0.5) Basophils # (Auto) 0.01 K/uL (0-0.2) Micro Results Date/Time Source Procedure Growth Status 12/26/17 14:22 Blood Blood Culture Pending Received 12/26/17 14:05 Blood Blood Culture Pending Received Risk Factors for Resistance * Immunocompromised (chronic steroid therapy, chemotherapy, immunomodulators) * History of infection with a multidrug-resistant organism: E. coli (urine) Assessment & Plan Assessment 72 year old male on empiric IV Vancomycin and Zosyn for multifocal pneumonia, possible aspiration. * Baseline renal function appears to be sCr 1-1.2 mg/dL; sCr = 1.48 mg/dL with estimated CrCl ~35 mL/min. With current renal function, estimated half-life is ~21 hours... however, renal function likely changing with hydration. Regardless , he will not need another dose until some time tomorrow. Plan Vancomycin IV * Due to GHANSHYAM and likely changing renal function, cannot accurately initiate maintenance regimen at this time. Will check random levels to determine Vancomycin dosing until renal function normalizes * Goal trough level for pneumonia : 15 to 20 mcg/mL * Random level ordered for 12/27/17 with AM labs * MRSA nasal swab ordered for possible de-escalation Piperacillin/tazobactam * 4.5 g bolus administered over 30 minutes (already given in ED), then 3.375 g IV extended infusion every 8 hours for CrCl greater than 20 mL/min Pharmacy will continue to follow and will adjust dose/frequency as necessary. Thank you.
[2017-12-26] MEDS: PIPERACILL/TAZOBAC IV 3.375 GM in DEXTROSE 5% 100ML 100 ML IV SCH (21:34)
[2017-12-26] MEDS: GUAIFENESIN 600 MG TABCR PO SCH (23:29)
[2017-12-26] MEDS: SIMVASTATIN 80 MG TAB PO SCH (23:29)
[2017-12-27] VITALS (15 sets, daily range): BP systolic 84–107; BP diastolic 52–59; PULSE 79–118; TEMP 36.9–37.9; O2SAT 93–99
[2017-12-27] MEDS: LEVALBUTEROL 1.25MG/3ML NEB INH SCH ×4 (02:04→19:05)
[2017-12-27] MEDS: SODIUM CHLORIDE 0.9% 1000ML 1,000 ML IV SCH ×2 (02:45→12:02)
[2017-12-27 05:28] LABS: HEMATOCRIT 26.8 % (42-52); HEMOGLOBIN 8.7 g/dL (14.0-18.0); MEAN CELL VOLUME 86.7 fL (80-100); MEAN CORPUSCULAR HEMOGLOBIN 28.2 pg (25-34); MEAN CORPUSCULAR HGB CONC 32.5 g/dl (32-36); MEAN PLATELET VOLUME 8.7 fL (7.4-10.4); PLATELET COUNT 258 K/uL (130-400); RED CELL DISTRIBUTION WIDTH CV 14.2 % (11.5-14.5); WHITE BLOOD COUNT 20.33 K/uL (4.8-10.8)
[2017-12-27 05:32] LABS: BASO ABS # 0.01 K/uL (0-0.2); IG# 0.12 K/uL (0.00-0.02); LYMPH % 1.8 %; LYMPH ABS # 0.37 K/uL (1.2-3.4); MONO % 5.2 %; MONO ABS # 1.05 K/uL (0.11-0.59); NEUT % 92.4 %; NEUT ABS # 18.78 K/uL (1.4-6.5)
[2017-12-27 05:50] LABS: CREATININE 1.21 mg/dl (0.60-1.40)
[2017-12-27 05:51] LABS: CALCIUM 7.6 mg/dl (8.5-10.1); POTASSIUM 4.4 mmol/L (3.5-5.1)
[2017-12-27] MEDS: PIPERACILL/TAZOBAC IV 3.375 GM in DEXTROSE 5% 100ML 100 ML IV SCH ×3 (06:12→20:31)
[2017-12-27 06:18] LABS: HEMOGLOBIN A1C 6.8 % (4.5-5.6)
[2017-12-27] MEDS: LEVALBUTEROL 1.25MG/3ML NEB INH PRN (07:10)
[2017-12-27] MEDS: LACTOBACILLUS ACIDOPHILUS (FLORANEX) TAB PO SCH ×3 (08:14→16:54)
[2017-12-27] MEDS: INSULIN ASPART 100 UNITS/ML 3 ML PEN SC SCH ×4 (08:14→20:30)
[2017-12-27] MEDS: GUAIFENESIN 600 MG TABCR PO SCH ×2 (08:14→20:27)
[2017-12-27] MEDS: ASPIRIN 81 MG ECTAB PO SCH (08:15)
[2017-12-27] MEDS: FINASTERIDE 5 MG TAB PO SCH (08:15)
[2017-12-27] MEDS: CLOPIDOGREL BISULFATE 75 MG TAB PO SCH (08:15)
[2017-12-27] MEDS: METOPROLOL SUCC 50MG EXT REL TAB PO SCH (09:00)
--- NOTE | 2017-12-27 09:25 | Clinical Documentation Query ---
CLINICAL DOCUMENTATION QUERY 72 year old white male with complaints of waxing and waning chest pain. He presented tachycardic, with mild RA hypoxia, Leukocytosis, +Lactic acid, elevated Troponin, and elevated total Bilirubin. In your clinical opinion is this patient being managed for: ( x ) Sepsis in setting of possible aspiration or MRSA pneumonia ( ) Not Agree ( ) Other explanation of clinical findings (Please Explain) ( ) Unable to determine (Please Define) ( ) Need to Discuss The medical record reflects the following clinical findings, treatment, and risk factors. Clinical Indicators: HR 137, Pulse ox 91% RA, WBC 31.76, Lactic acid 3.1, Troponin 0.331, Total bilirubin 1.4, Treatment: IVF boluses, IV Vancomycin, IV Zosyn, telemetry. Risk Factors: Age, cancer, pneumonia, Please clarify and document your clinical opinion in the progress notes and discharge summary. Terms such as "probable", "suspected", "likely", "questionable", "possible", or "still to be ruled out" are acceptable. IF IN AGREEMENT, YOU MUST DOCUMENT ABOVE DIAGNOSTIC STATEMENT IN DAILY PROGRESS NOTES AND DISCHARGE SUMMARY. This document is not part of the patient's record. Thank You, Tony Greene RN [phone]
[2017-12-27] MEDS: VANCOMYCIN IV 1,000 MG in SODIUM CHLORIDE 0.9% 250ML 250 ML IV SCH (10:06)
--- NOTE | 2017-12-27 10:16 | Hospitalist Progress Note ---
Hospitalist Progress Note Date of Service Dec 27, 2017. (Fara De La Vega ., GENO) Subjective Pt evaluation today including: conversation w/ patient, physical exam, chart review, lab review, review of inpatient medication list Voiding: no voiding problems Mr. Aden feels improved from yesterday though he is still requiring 6L NC. He is not coughing nearly as much as he was before arrival. The only pain he has is in his ribs from coughing. ROS Constitutional: no chills, aches, sweats or fever Respiratory: HPI Cardiac: no chest pain, palpitations, edema, orthopnea or lightheadedness GI: no abdominal pain, nausea, vomiting, diarrhea or constipation : no dysuria or hesitancy Extremities: no joint pain or weakness Skin: no rash All other systems reviewed and negative (Fara De La Vega ., GENO) Medications Medications Administered Medications (Trade) Dose Ordered Sig/Vianey Route Start Time Stop Time Status Last Admin Dose Admin Sodium Chloride 1,000 ml @ 999 mls/hr Q1H1M STAT IV 12/26/17 13:56 12/26/17 14:56 DC 12/26/17 14:23 999 MLS/HR Piperacillin Sod/ Tazobactam Sod (Zosyn Iv) 4.5 gm NOW STAT IV 12/26/17 13:56 12/26/17 14:00 DC 12/26/17 14:31 4.5 GM Sodium Chloride 1,000 ml @ 999 mls/hr Q1H1M STAT IV 12/26/17 13:56 12/26/17 14:56 DC 12/26/17 14:23 999 MLS/HR Vancomycin HCl 1250 mg/Sodium Chloride 275 ml @ 125 mls/hr ONE ONCE IV 12/26/17 14:15 12/26/17 16:26 DC 12/26/17 15:25 125 MLS/HR Albuterol/ Ipratropium (Duoneb) 3 ml STK-MED ONCE .ROUTE 12/26/17 16:01 12/26/17 16:02 DC 12/26/17 16:11 3 ML Aspirin (Ecotrin Tab) 81 mg DAILY PO 12/27/17 09:00 01/26/18 08:59 12/27/17 08:15 81 MG Clopidogrel Bisulfate (plAVix TAB) 75 mg DAILY PO 12/27/17 09:00 01/26/18 08:59 12/27/17 08:15 75 MG Finasteride (Proscar Tab) 5 mg QAM PO 12/27/17 09:00 01/26/18 08:59 12/27/17 08:15 5 MG Simvastatin (Zocor Tab) 80 mg HS PO 12/26/17 21:00 01/25/18 20:59 12/26/17 23:29 80 MG Piperacillin Sod/ Tazobactam Sod 3.375 gm/Dextrose 115 ml @ 28.75 mls/ hr Q8H IV 12/26/17 22:00 01/02/18 21:59 12/27/17 06:12 28.75 MLS/HR Guaifenesin (Mucinex Contr Rel Tab) 1,200 mg Q12 PO 12/26/17 21:00 01/25/18 20:59 12/27/17 08:14 1,200 MG Sodium Chloride 1,000 ml @ 100 mls/hr Q10H IV 12/26/17 16:08 12/27/17 16:07 12/27/17 02:45 100 MLS/HR Magnesium Sulfate (Magnesium Sulfate) 1 gm STK-MED ONCE .ROUTE 12/26/17 16:12 12/26/17 16:13 DC 12/26/17 16:30 1 GM Insulin Aspart (novoLOG ASPART) SLIDING SCALE If C... ACHS SC 12/26/17 21:00 01/25/18 20:59 12/27/17 08:14 2 UNITS Lactobacillus Acidophilus (Floranex Tab) 4 tab TIDM PO 12/27/17 07:30 01/26/18 07:29 12/27/17 08:14 4 TAB (Fara De La Vega, GENO) Objective Vital Signs Date Time Temp Pulse Resp B/P (MAP) Pulse Ox O2 Delivery O2 Flow Rate FiO2 12/27/17 08:00 97 Nasal Cannula 6.0 12/27/17 07:26 37.0 83 18 94/58 (70) 99 Nasal Cannula 6.0 Humidified Oxygen 12/27/17 04:01 97 Nasal Cannula 6.0 12/27/17 03:36 36.9 82 18 94/54 (67) 97 6.0 12/27/17 00:08 37.0 89 16 84/52 (63) 93 12/27/17 00:01 97 Nasal Cannula 6.0 12/26/17 20:43 36.9 105 21 105/66 (79) 94 Nasal Cannula 6.0 12/26/17 20:03 101 22 103/57 97 12/26/17 18:38 107 22 89/53 96 Nasal Cannula 6.0 12/26/17 18:23 111 12/26/17 17:49 37.6 115 24 91/56 91 Nasal Cannula 6.0 12/26/17 16:48 93 Nasal Cannula 2.0 12/26/17 16:31 131 29 100/71 93 Nasal Cannula 2.0 12/26/17 15:22 117 24 102/61 97 Room Air 12/26/17 14:36 124 20 103/60 95 Nasal Cannula 2.0 12/26/17 14:24 132 12/26/17 13:58 Nasal Cannula 2.0 12/26/17 13:52 92 Room Air 12/26/17 13:50 36.4 137 22 96/66 91 Room Air (Fara De La Vega, GENO) Physical Exam Notes: General: no distress Eyes: normal inspection, PERLL Respiratory: chest non tender, clear to auscultation, normal breath sounds, no respiratory distress, no accessory muscle use Cardiac: regular rate and rhythm, no rub or gallop, no murmur, no edema GI/: active bowel sounds, no abd pain or tenderness, soft, non distended Extremities: normal range of motion, normal strength, non tender Neuro/Psych: alert and oriented x 3, normal mood and affect Skin: normal color, dry (Fara De La Vega, GENO) Laboratory Results Last 24 Hours Test 12/26/17 14:05 12/26/17 14:13 12/26/17 14:18 12/26/17 14:22 White Blood Count 31.76 K/uL Red Blood Count 4.08 M/uL Hemoglobin 12.1 g/dL Hematocrit 35.1 % Mean Corpuscular Volume 86.0 fL Mean Corpuscular Hemoglobin 29.7 pg Mean Corpuscular Hemoglobin Concent 34.5 g/dl Platelet Count 382 K/uL Mean Platelet Volume 9.1 fL Neutrophils (%) (Auto) 92.7 % Lymphocytes (%) (Auto) 1.5 % Monocytes (%) (Auto) 5.3 % Eosinophils (%) (Auto) 0.0 % Basophils (%) (Auto) 0.0 % Neutrophils # (Auto) 29.43 K/uL Lymphocytes # (Auto) 0.48 K/uL Monocytes # (Auto) 1.67 K/uL Eosinophils # (Auto) 0.00 K/uL Basophils # (Auto) 0.01 K/uL RDW Standard Deviation 43.9 fL RDW Coefficient of Variation 13.9 % Immature Granulocyte % (Auto) 0.5 % Immature Granulocyte # (Auto) 0.17 K/uL Toxic Vacuolation 1+ Prothrombin Time 12.0 SECONDS Prothromb Time International Ratio 1.1 Activated Partial Thromboplast Time 38.8 SECONDS Partial Thromboplastin Ratio 1.5 D-Dimer 1200 ug/L FEU Sodium Level 132 mmol/L Potassium Level 4.0 mmol/L Chloride Level 100 mmol/L Carbon Dioxide Level 23 mmol/L Anion Gap 9.0 mmol/L 17.0 mmol/L Blood Urea Nitrogen 23 mg/dl Creatinine 1.48 mg/dl Est Creatinine Clear Calc Drug Dose 35.3 ml/min Estimated GFR () 53.3 Estimated GFR (Non- 46.0 BUN/Creatinine Ratio 15.5 Random Glucose 184 mg/dl Calcium Level 9.3 mg/dl Total Bilirubin 1.4 mg/dl Direct Bilirubin 0.3 mg/dl Aspartate Amino Transf (AST/SGOT) 12 U/L Alanine Aminotransferase (ALT/SGPT) 23 U/L Alkaline Phosphatase 110 U/L Total Protein 8.2 gm/dl Albumin 3.1 gm/dl Lipase 66 U/L Influenza Type A Antigen Neg for Influ A Influenza Type B Antigen Neg for Influ B Bedside Troponin I < 0.030 ng/ml Bedside Hemoglobin 12.2 g/dl Bedside Hematocrit 36 % Bedside Sodium 135 mEq/L Bedside Potassium 4.2 mEq/L Bedside Chloride 100 mEq/L Bedside Total CO2 24 mEq/l Bedside Blood Urea Nitrogen 23 mg/dl Bedside Creatinine 1.3 mg/dl Bedside Glucose (other) 189 mg/dl Bedside Ionized Calcium (Asael) 1.12 mmol/l Venous Blood pH 7.44 Venous Blood Partial Pressure CO2 36 mmHg Venous Blood Partial Pressure O2 28 mmHg Venous Blood HCO3 24 mmol/L Venous Blood Oxygen Saturation < 60.0 % Venous Blood Base Excess 0.4 mEq/L Test 12/26/17 14:24 12/26/17 17:11 12/26/17 20:17 12/26/17 21:06 Bedside Lactic Acid Venous 3.22 mmol/L Troponin I 0.033 ng/ml 0.229 ng/ml Lactic Acid Level 3.1 mmol/L Bedside Glucose 162 mg/dl Test 12/26/17 23:48 12/27/17 04:52 12/27/17 06:51 White Blood Count 20.33 K/uL Red Blood Count 3.09 M/uL Hemoglobin 8.7 g/dL Hematocrit 26.8 % Mean Corpuscular Volume 86.7 fL Mean Corpuscular Hemoglobin 28.2 pg Mean Corpuscular Hemoglobin Concent 32.5 g/dl Platelet Count 258 K/uL Mean Platelet Volume 8.7 fL Neutrophils (%) (Auto) 92.4 % Lymphocytes (%) (Auto) 1.8 % Monocytes (%) (Auto) 5.2 % Eosinophils (%) (Auto) 0.0 % Basophils (%) (Auto) 0.0 % Neutrophils # (Auto) 18.78 K/uL Lymphocytes # (Auto) 0.37 K/uL Monocytes # (Auto) 1.05 K/uL Eosinophils # (Auto) 0.00 K/uL Basophils # (Auto) 0.01 K/uL RDW Standard Deviation 45.0 fL RDW Coefficient of Variation 14.2 % Immature Granulocyte % (Auto) 0.6 % Immature Granulocyte # (Auto) 0.12 K/uL Dohle Bodies 1+ Sodium Level 137 mmol/L Potassium Level 4.4 mmol/L Chloride Level 107 mmol/L Carbon Dioxide Level 21 mmol/L Anion Gap 9.0 mmol/L Blood Urea Nitrogen 24 mg/dl Creatinine 1.21 mg/dl Est Creatinine Clear Calc Drug Dose 49.7 ml/min Estimated GFR () 67.9 Estimated GFR (Non- 58.6 BUN/Creatinine Ratio 19.5 Random Glucose 138 mg/dl Estimated Average Glucose 148 mg/dl Hemoglobin A1c 6.8 % Calcium Level 7.6 mg/dl Troponin I 0.331 ng/ml Random Vancomycin Level 7.5 mcg/ml Bedside Glucose 150 mg/dl (Fara De La Vega ., GENO) Assessment and Plan Mr. Aden is a 72 year old man here for multifocal pna. 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 COPD, emphysema - CXR and CT showed multifocal PNA - no evidence of PE on CTA - WBC of 32,000 on admission, started on vanc and zosyn, down to 22,000 today - Continue xopenex duonebs, O2 protocol, supportive therapy with incentive spirometry, mucinex - pt does not wear supplemental O2 at baseline - titrate down from 6L as possible - Speech therapy consult to r/o aspiration - Continue NSS 100 ml/hr while bp borderline and patient taking poor po however caution for volume overload in the setting of CHF - Lung cancer stable, has a PET scan scheduled in 2 months - Will hold on steroids at this time with hx of cancer - PT/OT Tachycardia/ Hypotension/ Type II NSTEMI Diastolic CHF CAD s/p multiple MILLIE and 1 bare metal stent Ischemic Cardiomyopathy - troponin peaked 0.33 today and trended down - Check echocardiogram to determine EF patient follows with Dr. Walter as an outpatient, most recent note from August 2017 indicates an EF of 60%. Most recent echocardiogram in [employer] seems to be from February 2017 and shows an EF of 20-30% . - Will hold lisinopril for now - Continue on asa 81 mg, plavix, and Toprol XL 50 mg QAM - No longer tachycardic today CKD stage III, possible GHANSHYAM - Cr 1.48, baseline of 1.2 - 1.2 today - Continue IVF for now - continue to hold lisinopril for low bp DM II - Hold Metformin and glipizide - A1c 6.8 -Cover with insulin sliding scale and Accu-Cheks ACHS BPH - Continue finasteride DVT ppx: Teds, scds CODE STATUS: FULL CODE Disposition: From home, lives with , CM to assist with dc planning (Fara De La Vega, GENO) Supervising Note Dr. Arora I performed a history and physical examination on the patient. I reviewed above note and agree with it. I discussed plan with APC and patient. During my face to face encounter with the patient, I answered all of the patient's questions. Patient reports having improvement in regards to his clinical symptoms. Decreased generalized malaise and decreased coughing. Will continue to treat with current antibiotics: vanco, zosyn. Continued [facility] stay due to: other Discharge planning: uncertain (Félix Arora M.D.)
--- NOTE | 2017-12-27 14:24 | ECHOCARDIOGRAM REPORT ---
*NOTICE TO RECEIVING [employer] This information is strictly Confidential and protected under [place] law. [place] law prohibits you from making any further disclosure of this information unless further disclosure is expressly permitted by the written consent of the person to whom it pertains or is authorized by law. A general authorization for the release of medical or other information is not sufficient for this purpose. Hospital accepts no responsibility if the information is made available to any other person, INCLUDING THE PATIENT. Interpretation Summary * Name: BLADIMIR INTERIANO Study Date: 12/27/2017 05:34 AM BP: 94/54 mmHg * Patient Location: C.2T\S\S242\S\2 HR: 98 * : 1945 (M/d/yyyy) Gender: Male Height: 68 in * Age: 72 yrs Ethnicity: CA Weight: 125 lb * Ordering Physician: Liz Baldwin * Referring Physician: Self, Referred * Performed By: Maame Church [facility] * * Reason For Study: CHF * BSA: 1.7 m2 * -- Conclusions -- * The left ventricle is borderline dilated. * Left ventricular systolic function is mildly reduced. * Grade I diastolic dysfunction, (abnormal relaxation pattern). * The right ventricular systolic function is mildly reduced. * Right ventricular systolic pressure is normal. Procedure Details * A complete two-dimensional transthoracic echocardiogram was performed (2D, M-mode, Doppler and color flow Doppler). Left Ventricle * The left ventricle is borderline dilated. * There is normal left ventricular wall thickness. * Left ventricular systolic function is mildly reduced. * Ejection Fraction = 45-50%. * Grade I diastolic dysfunction, (abnormal relaxation pattern). * Regional wall motion abnormalities cannot be excluded due to limited visualization. * Some views suggestive of moderate inferior hypokinesis. Otherwise global hypokinesis Right Ventricle * The right ventricle is grossly normal size. * The right ventricular systolic function is mildly reduced. Atria * The left atrial size is normal. * Right atrial size is normal. Mitral Valve * The mitral valve anatomy is normal. * Significant mitral regurgitation is absent. Tricuspid Valve * The tricuspid valve is not well visualized, but is grossly normal. * There is trace tricuspid regurgitation. * Right ventricular systolic pressure is normal. Aortic Valve * The aortic valve is normal in structure and function. * The aortic valve is trileaflet. * No hemodynamically significant valvular aortic stenosis. * There is no significant aortic regurgitation. Great Vessels * The aortic root is normal size. Pericardium/Pleural * There is no pericardial effusion. Great Vessels * Normal inferior vena cava diameter and respiratory variation suggests normal central venous pressure. MMode 2D Measurements and Calculations IVSd 1.2 cm IVSs 1.7 cm LVIDd 5.1 cm LVIDs 3.6 cm LVPWd 1.2 cm LVPWs 1.5 cm IVS/LVPW 1.0 FS 29.6 % EDV(Teich) 125.5 ml ESV(Teich) 54.8 ml EF(Teich) 56.3 % EDV(cubed) 135.0 ml ESV(cubed) 47.1 ml EF(cubed) 65.1 % % IVS thick 50.0 % % LVPW thick 30.8 % LV mass(C)d 232.6 grams LV mass(C)dI 139.0 grams/m\S\2 LV mass(C)s 231.4 grams LV mass(C)sI 138.2 grams/m\S\2 SV(Teich) 70.7 ml SI(Teich) 42.2 ml/m\S\2 SV(cubed) 87.9 ml SI(cubed) 52.5 ml/m\S\2 Ao root diam 3.4 cm Ao root area 8.8 cm\S\2 ACS 1.8 cm LA dimension 3.4 cm LA/Ao 1.0 LVOT diam 2.0 cm LVOT area 3.0 cm\S\2 LVAd ap2 25.9 cm\S\2 LVLd ap2 6.2 cm EDV(MOD-sp2) 93.9 ml EDV(sp2-el) 91.3 ml LVAs ap2 17.5 cm\S\2 LVLs ap2 5.6 cm ESV(MOD-sp2) 48.1 ml ESV(sp2-el) 46.8 ml EF(MOD-sp2) 48.7 % EF(sp2-el) 48.7 % SV(MOD-sp2) 45.7 ml SI(MOD-sp2) 27.3 ml/m\S\2 SV(sp2-el) 44.5 ml SI(sp2-el) 26.6 ml/m\S\2 Doppler Measurements and Calculations MV E max simran 80.3 cm/sec MV A max simran 126.2 cm/sec MV E/A 0.64 MV P1/2t max simran 99.2 cm/sec MV P1/2t 41.4 msec MVA(P1/2t) 5.3 cm\S\2 MV dec slope 702.0 cm/sec\S\2 MV dec time 0.21 sec PA V2 max 99.2 cm/sec PA max PG 3.9 mmHg TR max simran 225.2 cm/sec
--- NOTE | 2017-12-27 15:01 | Pharmacy Progress Note ---
Pharmacy Antibiotic Prog Note Date of Service Dec 27, 2017. Subjective The patient is currently receiving Zosyn 3.375 Gm IV every 8 hours, and had loading dose of vancomycin 12/26, maintenance level to be determined. The patient is currently on day # 2 of vancomycin and Zosyn IV therapy. Objective Height (Feet): 5 Height (Inches): 8.00 Weight (Kilograms): 67.000 Levels: Item Value Date Time Random Vancomycin Level 7.5 mcg/ml 12/27/17 0452 Previous dose hung 12/26 @1525. Lab Results (24hrs): Test 12/26/17 20:17 12/26/17 21:06 12/26/17 23:48 12/27/17 04:52 Lactic Acid Level 3.1 mmol/L (0.4-2.0) Bedside Glucose 162 mg/dl (70-99) White Blood Count 20.33 K/uL (4.8-10.8) Red Blood Count 3.09 M/uL (4.7-6.1) Hemoglobin 8.7 g/dL (14.0-18.0) Hematocrit 26.8 % (42-52) Mean Corpuscular Volume 86.7 fL (80-100) Mean Corpuscular Hemoglobin 28.2 pg (25-34) Mean Corpuscular Hemoglobin Concent 32.5 g/dl (32-36) Platelet Count 258 K/uL (130-400) Mean Platelet Volume 8.7 fL (7.4-10.4) Neutrophils (%) (Auto) 92.4 % Lymphocytes (%) (Auto) 1.8 % Monocytes (%) (Auto) 5.2 % Eosinophils (%) (Auto) 0.0 % Basophils (%) (Auto) 0.0 % Neutrophils # (Auto) 18.78 K/uL (1.4-6.5) Lymphocytes # (Auto) 0.37 K/uL (1.2-3.4) Monocytes # (Auto) 1.05 K/uL (0.11-0.59) Eosinophils # (Auto) 0.00 K/uL (0-0.5) Basophils # (Auto) 0.01 K/uL (0-0.2) RDW Standard Deviation 45.0 fL (36.4-46.3) RDW Coefficient of Variation 14.2 % (11.5-14.5) Immature Granulocyte % (Auto) 0.6 % Immature Granulocyte # (Auto) 0.12 K/uL (0.00-0.02) Dohle Bodies 1+ Sodium Level 137 mmol/L (136-145) Potassium Level 4.4 mmol/L (3.5-5.1) Chloride Level 107 mmol/L (98-107) Carbon Dioxide Level 21 mmol/L (21-32) Anion Gap 9.0 mmol/L (3-11) Blood Urea Nitrogen 24 mg/dl (7-18) Creatinine 1.21 mg/dl (0.60-1.40) Est Creatinine Clear Calc Drug Dose 49.7 ml/min Estimated GFR () 67.9 Estimated GFR (Non- 58.6 BUN/Creatinine Ratio 19.5 (10-20) Random Glucose 138 mg/dl (70-99) Estimated Average Glucose 148 mg/dl Hemoglobin A1c 6.8 % (4.5-5.6) Calcium Level 7.6 mg/dl (8.5-10.1) Troponin I 0.331 ng/ml (0-0.045) Random Vancomycin Level 7.5 mcg/ml Test 12/27/17 06:51 12/27/17 11:29 Bedside Glucose 150 mg/dl (70-99) Troponin I 0.255 ng/ml (0-0.045) Renal function has improved. Micro Results: 12/26 blood x2 pending 12/26 serology neg for influenza A, influenza B 12/26 nasal swab neg MRSA 12/26 urine pending Recent Pertinent Medications Item Value Date Time Vancomycin HCl 270 ml @ 125 mls/hr 12/27/17 1000 1000 mg/Sodium Q16H/IV 12/27/17 1006 Chloride Piperacillin Sod/ 115 ml @ 28.75 mls/hr 12/26/17 2200 Tazobactam Sod Q8H/IV 12/27/17 1415 3.375 gm/Dextrose Vancomycin HCl 275 ml @ 125 mls/hr 12/26/17 1415 1250 mg/Sodium ONE ONCE/IV 12/26/17 1525 Chloride Piperacillin Sod/ 4.5 gm 12/26/17 1356 Tazobactam Sod NOW STAT/IV 12/26/17 1431 (Zosyn Iv) Assessment & Plan This drug level is: Subtherapeutic. Will start maintenance dose and check trough after a few doses. Change to vancomycin 1000 mg IV every 16 hours. Goal trough level estimate: between 15-20 mcg/mL. Trough has been ordered for: 12/29 before 1000 dose. Zosyn 4.5 Gm loading dose, then Zosyn 3.375 Gm (infused over 4 hr) every 8 hr, for creatinine clearance greater than 20 ml/min. Pharmacy will continue to follow and will adjust dose/frequency as necessary. Thank you
[2017-12-27] MEDS: SIMVASTATIN 80 MG TAB PO SCH (20:27)
[2017-12-28] VITALS (12 sets, daily range): BP systolic 103–151; BP diastolic 62–81; PULSE 77–110; TEMP 36.6–37.9; O2SAT 92–98
[2017-12-28] MEDS: LEVALBUTEROL 1.25MG/3ML NEB INH SCH ×3 (02:16→19:08)
[2017-12-28] MEDS: VANCOMYCIN IV 1,000 MG in SODIUM CHLORIDE 0.9% 250ML 250 ML IV SCH ×2 (03:24→17:53)
[2017-12-28] MEDS: ACETAMINOPHEN 325 MG TAB PO PRN (04:31)
[2017-12-28 05:50] LABS: EOS % 0.2 %; EOS ABS # 0.04 K/uL (0-0.5); HEMATOCRIT 24.6 % (42-52); HEMOGLOBIN 8.1 g/dL (14.0-18.0); IG# 0.07 K/uL (0.00-0.02); LYMPH % 2.1 %; LYMPH ABS # 0.34 K/uL (1.2-3.4); MEAN CELL VOLUME 86.3 fL (80-100); MEAN CORPUSCULAR HEMOGLOBIN 28.4 pg (25-34); MEAN CORPUSCULAR HGB CONC 32.9 g/dl (32-36); MEAN PLATELET VOLUME 9.3 fL (7.4-10.4); MONO % 5.4 %; MONO ABS # 0.87 K/uL (0.11-0.59); NEUT % 91.9 %; NEUT ABS # 14.75 K/uL (1.4-6.5); PLATELET COUNT 260 K/uL (130-400); RED CELL DISTRIBUTION WIDTH CV 14.1 % (11.5-14.5); RED CELL DISTRIBUTION WIDTH SD 44.7 fL (36.4-46.3); WHITE BLOOD COUNT 16.07 K/uL (4.8-10.8)
[2017-12-28] MEDS: PIPERACILL/TAZOBAC IV 3.375 GM in DEXTROSE 5% 100ML 100 ML IV SCH ×3 (05:59→21:11)
[2017-12-28 06:35] LABS: CALCIUM 8.1 mg/dl (8.5-10.1); CREATININE 1.02 mg/dl (0.60-1.40); POTASSIUM 3.3 mmol/L (3.5-5.1)
[2017-12-28] MEDS: GUAIFENESIN 600 MG TABCR PO SCH ×2 (08:15→21:00)
[2017-12-28] MEDS: CLOPIDOGREL BISULFATE 75 MG TAB PO SCH (08:15)
[2017-12-28] MEDS: ASPIRIN 81 MG ECTAB PO SCH (08:16)
[2017-12-28] MEDS: LACTOBACILLUS ACIDOPHILUS (FLORANEX) TAB PO SCH ×3 (08:16→16:00)
[2017-12-28] MEDS: METOPROLOL SUCC 50MG EXT REL TAB PO SCH (08:16)
[2017-12-28] MEDS: FINASTERIDE 5 MG TAB PO SCH (08:16)
[2017-12-28] MEDS: INSULIN ASPART 100 UNITS/ML 3 ML PEN SC SCH ×4 (08:20→21:11)
[2017-12-28] MEDS ORDERED: POTASSIUM CHLORIDE 10 MEQ TABCR PO ONE (14:00)
--- NOTE | 2017-12-28 14:13 | Hospitalist Progress Note ---
Hospitalist Progress Note Date of Service Dec 28, 2017. (Fara De La Vega .GENO) Subjective Pt evaluation today including: conversation w/ patient, physical exam, chart review, lab review, review of inpatient medication list Voiding: no voiding problems Mr. Aden is slowly improving. He is down to 4L NC from 6 yesterday though he becomes quite winded with exertion. His cough is better, productive. He ran a low grade fever over the night. ROS Constitutional: no chills, aches, sweats or fever Respiratory: see HPI Cardiac: no chest pain, palpitations, edema, orthopnea or lightheadedness GI: no abdominal pain, nausea, vomiting, diarrhea or constipation : no dysuria or hesitancy Extremities: no joint pain or weakness Skin: no rash All other systems reviewed and negative (Fara De La Vega .GENO) Medications Medications Administered Medications (Trade) Dose Ordered Sig/Vianey Route Start Time Stop Time Status Last Admin Dose Admin Sodium Chloride 1,000 ml @ 999 mls/hr Q1H1M STAT IV 12/26/17 13:56 12/26/17 14:56 DC 12/26/17 14:23 999 MLS/HR Piperacillin Sod/ Tazobactam Sod (Zosyn Iv) 4.5 gm NOW STAT IV 12/26/17 13:56 12/26/17 14:00 DC 12/26/17 14:31 4.5 GM Sodium Chloride 1,000 ml @ 999 mls/hr Q1H1M STAT IV 12/26/17 13:56 12/26/17 14:56 DC 12/26/17 14:23 999 MLS/HR Vancomycin HCl 1250 mg/Sodium Chloride 275 ml @ 125 mls/hr ONE ONCE IV 12/26/17 14:15 12/26/17 16:26 DC 12/26/17 15:25 125 MLS/HR Albuterol/ Ipratropium (Duoneb) 3 ml STK-MED ONCE .ROUTE 12/26/17 16:01 12/26/17 16:02 DC 12/26/17 16:11 3 ML Acetaminophen (Tylenol Tab) 650 mg Q4H PRN PO 12/26/17 16:00 01/25/18 15:59 12/28/17 04:31 650 MG Aspirin (Ecotrin Tab) 81 mg DAILY PO 12/27/17 09:00 01/26/18 08:59 12/28/17 08:16 81 MG Clopidogrel Bisulfate (plAVix TAB) 75 mg DAILY PO 12/27/17 09:00 01/26/18 08:59 12/28/17 08:15 75 MG Finasteride (Proscar Tab) 5 mg QAM PO 12/27/17 09:00 01/26/18 08:59 12/28/17 08:16 5 MG Simvastatin (Zocor Tab) 80 mg HS PO 12/26/17 21:00 01/25/18 20:59 12/27/17 20:27 80 MG Piperacillin Sod/ Tazobactam Sod 3.375 gm/Dextrose 115 ml @ 28.75 mls/ hr Q8H IV 12/26/17 22:00 01/02/18 21:59 12/28/17 05:59 28.75 MLS/HR Levalbuterol (Xopenex 1.25MG/ 3ML Neb) 1.25 mg Q6R INH 12/26/17 21:00 01/25/18 20:59 12/28/17 02:16 1.25 MG Guaifenesin (Mucinex Contr Rel Tab) 1,200 mg Q12 PO 12/26/17 21:00 01/25/18 20:59 12/28/17 08:15 1,200 MG Sodium Chloride 1,000 ml @ 100 mls/hr Q10H IV 12/26/17 16:08 12/27/17 16:07 DC 12/27/17 12:02 100 MLS/HR Magnesium Sulfate (Magnesium Sulfate) 1 gm STK-MED ONCE .ROUTE 12/26/17 16:12 12/26/17 16:13 DC 12/26/17 16:30 1 GM Metoprolol Succinate (Toprol Xl Tab) 50 mg QAM PO 12/27/17 09:00 01/26/18 08:59 12/28/17 08:16 50 MG Insulin Aspart (novoLOG ASPART) SLIDING SCALE If C... ACHS SC 12/26/17 21:00 01/25/18 20:59 12/28/17 12:12 6 UNITS Lactobacillus Acidophilus (Floranex Tab) 4 tab TIDM PO 3/14/18 07:30 01/26/18 07:29 12/28/17 12:06 4 TAB Vancomycin HCl 1000 mg/Sodium Chloride 270 ml @ 125 mls/hr Q16H IV 12/27/17 10:00 01/02/18 15:59 12/28/17 03:24 125 MLS/HR (Fara De La Vega, GENO) Objective Vital Signs Date Time Temp Pulse Resp B/P (MAP) Pulse Ox O2 Delivery O2 Flow Rate FiO2 12/28/17 12:00 Nasal Cannula 5.0 12/28/17 11:24 36.6 77 20 112/72 (85) 96 Nasal Cannula 2.0 12/28/17 08:00 Nasal Cannula 5.0 12/28/17 07:32 36.7 99 20 113/62 (79) 98 Nasal Cannula 55.0 12/28/17 06:55 88 18 95 Nasal Cannula 4.0 12/28/17 06:02 36.9 12/28/17 04:53 37.9 102 18 103/63 (76) 94 Nasal Cannula 12/28/17 04:00 Nasal Cannula 5.0 12/28/17 02:17 88 18 96 Nasal Cannula 4.0 12/28/17 00:16 37.6 103 18 107/64 (78) 94 Nasal Cannula 5.0 12/28/17 00:00 Nasal Cannula 5.0 12/27/17 20:00 99 Nasal Cannula 4.0 12/27/17 19:43 37.9 118 24 107/57 (74) 95 Nasal Cannula 5.0 12/27/17 19:05 88 18 97 Nasal Cannula 4.0 12/27/17 16:24 96 94 12/27/17 16:00 99 Nasal Cannula 4.0 12/27/17 15:26 37.2 93 18 96/59 (71) 95 Room Air 12/27/17 14:33 97 16 98 Nasal Cannula 4.0 (Fara De La Vega, GENO) Physical Exam Notes: General: no distress Eyes: normal inspection, PERLL Respiratory: chest non tender, coarse bases, no respiratory distress, no accessory muscle use Cardiac: regular rate and rhythm, no rub or gallop, no murmur, no edema, no jvd GI/: active bowel sounds, no abd pain or tenderness, soft, non distended Extremities: normal range of motion, normal strength, non tender Neuro/Psych: alert and oriented x 3, normal mood and affect Skin: normal color, dry (Fara De La Vega CRNP) Laboratory Results Last 24 Hours Test 12/27/17 16:18 12/27/17 20:15 12/28/17 05:15 12/28/17 06:59 Bedside Glucose 123 mg/dl 199 mg/dl 123 mg/dl White Blood Count 16.07 K/uL Red Blood Count 2.85 M/uL Hemoglobin 8.1 g/dL Hematocrit 24.6 % Mean Corpuscular Volume 86.3 fL Mean Corpuscular Hemoglobin 28.4 pg Mean Corpuscular Hemoglobin Concent 32.9 g/dl Platelet Count 260 K/uL Mean Platelet Volume 9.3 fL Neutrophils (%) (Auto) 91.9 % Lymphocytes (%) (Auto) 2.1 % Monocytes (%) (Auto) 5.4 % Eosinophils (%) (Auto) 0.2 % Basophils (%) (Auto) 0.0 % Neutrophils # (Auto) 14.75 K/uL Lymphocytes # (Auto) 0.34 K/uL Monocytes # (Auto) 0.87 K/uL Eosinophils # (Auto) 0.04 K/uL Basophils # (Auto) 0.00 K/uL RDW Standard Deviation 44.7 fL RDW Coefficient of Variation 14.1 % Immature Granulocyte % (Auto) 0.4 % Immature Granulocyte # (Auto) 0.07 K/uL Red Blood Cell Morphology Unremarkable Sodium Level 138 mmol/L Potassium Level 3.3 mmol/L Chloride Level 109 mmol/L Carbon Dioxide Level 20 mmol/L Anion Gap 9.0 mmol/L Blood Urea Nitrogen 17 mg/dl Creatinine 1.02 mg/dl Est Creatinine Clear Calc Drug Dose 59.3 ml/min Estimated GFR () 83.5 Estimated GFR (Non- 72.1 BUN/Creatinine Ratio 16.9 Random Glucose 116 mg/dl Calcium Level 8.1 mg/dl Test 12/28/17 11:24 Bedside Glucose 186 mg/dl (Fara De La Vega CRNP) Assessment and Plan Mr. Aden is a 72 year old man here for multifocal pna. 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 COPD, emphysema - CXR and CT showed multifocal PNA - no evidence of PE on CTA - WBC of 32,000 on admission - continue on vanc and zosyn, down to 16,000 today - Continue xopenex duonebs, O2 protocol, supportive therapy with incentive spirometry, mucinex - pt does not wear supplemental O2 at baseline - titrate down from 4L as possible - Speech therapy consult to r/o aspiration - they signed off, no concern for aspiration - IVF discontinued - Lung cancer stable, has a PET scan scheduled in 2 months - Will hold on steroids at this time with hx of cancer - PT/OT Tachycardia/ Hypotension/ Type II NSTEMI Diastolic CHF CAD s/p multiple MILLIE and 1 bare metal stent Ischemic Cardiomyopathy - troponin peaked 0.33 today and trended down - Grade I diastolic dysfunction, EF 45% - appears euvolemic at this time - Will hold lisinopril for now - Continue on asa 81 mg, plavix, and Toprol XL 50 mg QAM Anemia of unknown type - no obvious source of bleeding - fecal occult, iron panel in am CKD stage III, possible GHANSHYAM - Cr 1.48, trended back to baseline - Blood pressures better, systolic in 1 teens - will continue to hold lisinopril for low bp DM II - Hold Metformin and glipizide - A1c 6.8 -Cover with insulin sliding scale and Accu-Cheks ACHS BPH - Continue finasteride DVT ppx: Teds, scds CODE STATUS: FULL CODE Disposition: From home, lives with , CM to assist with dc planning (Fara De La Vega CRNP) Supervising Note Dr. Arora I performed a history and physical examination on the patient. I reviewed above note and agree with it. I discussed plan with APC and patient. During my face to face encounter with the patient, I answered all of the patient's questions. Will continue with antibiotics. Oxygen requirements have been decreasing. will monitor. (Félix Arora M.D.)
[2017-12-28] MEDS: SIMVASTATIN 80 MG TAB PO SCH (21:00)
[2017-12-29] VITALS (9 sets, daily range): BP systolic 112–129; BP diastolic 67–82; PULSE 87–113; TEMP 36.6–37.3; O2SAT 90–97
[2017-12-29] MEDS: LEVALBUTEROL 1.25MG/3ML NEB INH SCH ×4 (02:04→19:56)
[2017-12-29] MEDS: PIPERACILL/TAZOBAC IV 3.375 GM in DEXTROSE 5% 100ML 100 ML IV SCH ×3 (06:10→20:39)
[2017-12-29] MEDS: LACTOBACILLUS ACIDOPHILUS (FLORANEX) TAB PO SCH ×3 (08:44→18:03)
[2017-12-29] MEDS: ASPIRIN 81 MG ECTAB PO SCH (08:44)
[2017-12-29] MEDS: FINASTERIDE 5 MG TAB PO SCH (08:45)
[2017-12-29] MEDS: GUAIFENESIN 600 MG TABCR PO SCH ×2 (08:45→20:46)
[2017-12-29] MEDS: CLOPIDOGREL BISULFATE 75 MG TAB PO SCH (08:45)
[2017-12-29] MEDS: METOPROLOL SUCC 50MG EXT REL TAB PO SCH (08:45)
[2017-12-29] MEDS: INSULIN ASPART 100 UNITS/ML 3 ML PEN SC SCH ×4 (08:49→20:07)
[2017-12-29] MEDS ORDERED: VANCOMYCIN TROUGH ONE (09:30)
[2017-12-29 09:53] LABS: BASO % 0.1 %; BASO ABS # 0.01 K/uL (0-0.2); EOS % 0.3 %; EOS ABS # 0.04 K/uL (0-0.5); HEMATOCRIT 26.3 % (42-52); LYMPH % 4.5 %; LYMPH ABS # 0.63 K/uL (1.2-3.4); MEAN CORPUSCULAR HEMOGLOBIN 28.8 pg (25-34); MEAN CORPUSCULAR HGB CONC 34.2 g/dl (32-36); MEAN PLATELET VOLUME 8.8 fL (7.4-10.4); MONO % 4.1 %; MONO ABS # 0.58 K/uL (0.11-0.59); NEUT % 90.3 %; NEUT ABS # 12.75 K/uL (1.4-6.5); PLATELET COUNT 273 K/uL (130-400); RED CELL DISTRIBUTION WIDTH CV 14.5 % (11.5-14.5); RED CELL DISTRIBUTION WIDTH SD 44.3 fL (36.4-46.3); WHITE BLOOD COUNT 14.11 K/uL (4.8-10.8)
[2017-12-29] MEDS: VANCOMYCIN IV 1,000 MG in SODIUM CHLORIDE 0.9% 250ML 250 ML IV SCH ×2 (10:18→20:39)
[2017-12-29 10:28] LABS: CREATININE 1.09 mg/dl (0.60-1.40)
--- NOTE | 2017-12-29 11:04 | Pharmacy Progress Note ---
Pharmacy Abx Dose Short Note Date of Service Dec 29, 2017. Assessment & Plan Assessment 72 year old male receiving vancomycin/zosyn for treatment of multifocal pneumonia Day # 4 of antimicrobial therapy. Plan Vancomycin * Trough level of 10.00 mcg/mL is subtherapeutic * Change to 1000 mg IV every 12 hours * Goal trough [id number] mcg/mL * Trough or random level ordered for: 12/31 @ 0986 Pharmacy will continue to follow and will adjust dose/frequency as necessary. Thank you.
[2017-12-29] MEDS: SIMVASTATIN 80 MG TAB PO SCH (20:46)
--- NOTE | 2017-12-29 22:27 | Progress Note ---
Subjective Date of Service: Dec 29, 2017. Subjective Pt evaluation today including: conversation w/ patient, conversation w/ family , physical exam 72 yo male with bilateral pneumonia. Patient reports feeling better today. But he states that he continues to get winded without oxygen and limited activity causes shortness of breath. Patient reports cough but currently it is non productive. Patient states that he has no fever, chills, nausea, vomiting. Problem List Medical Problems: (1) Acute bronchitis Status: Acute (2) GHANSHYAM (acute kidney injury) Status: Acute (3) Enlarged prostate Status: Chronic (4) Exertional dyspnea Status: Acute (5) Hx of cancer of lung Status: Acute (6) Hyperkalemia Status: Acute (7) Leukocytosis Status: Acute (8) Leukocytosis Status: Acute (9) Pneumonia Status: Acute (10) Sepsis Status: Acute (11) Stabbing chest pain Status: Acute (12) Substernal chest pain Status: Acute Review of Systems Constitutional: No fever, No chills Eyes: No worsening of vision ENT: No unusual epistaxis Respiratory: + cough, + shortness of breath, + dyspnea on exertion, No sputum Cardiac: No chest pain Abdomen: No pain, No nausea Musculoskeletal: No joint pain Neurologic: No memory loss Psychiatric: No depression symptoms Heme: No abnormal bleeding/bruising Endo: + fatigue Skin: No rash All Other Systems: Reviewed and Negative Medications Current Inpatient Medications Medications (Trade) Dose Ordered Sig/Vianey Route Start Time Stop Time Status Last Admin Dose Admin Ioversol (Optiray 320) 125 ml UD PRN IV 12/26/17 15:00 12/30/17 14:59 Acetaminophen (Tylenol Tab) 650 mg Q4H PRN PO 12/26/17 16:00 01/25/18 15:59 12/28/17 04:31 650 MG Ondansetron HCl (Zofran Inj) 4 mg Q6H PRN IV 12/26/17 16:00 01/25/18 15:59 Polyethylene (Miralax Powder Packet) 17 gm DAILY PRN PO 12/26/17 16:00 01/25/18 15:59 Aspirin (Ecotrin Tab) 81 mg DAILY PO 12/27/17 09:00 01/26/18 08:59 12/29/17 08:44 81 MG Clopidogrel Bisulfate (plAVix TAB) 75 mg DAILY PO 12/27/17 09:00 01/26/18 08:59 12/29/17 08:45 75 MG Finasteride (Proscar Tab) 5 mg QAM PO 12/27/17 09:00 01/26/18 08:59 12/29/17 08:45 5 MG Simvastatin (Zocor Tab) 80 mg HS PO 12/26/17 21:00 01/25/18 20:59 12/29/17 20:46 80 MG Piperacillin Sod/ Tazobactam Sod 3.375 gm/Dextrose 115 ml @ 28.75 mls/ hr Q8H IV 12/26/17 22:00 01/02/18 21:59 12/30/17 05:26 28.75 MLS/HR Miscellaneous Information (Consult) 1 ea UD PRN N/A 12/26/17 16:15 01/25/18 16:14 Miscellaneous Information (Consult) 1 ea UD PRN N/A 12/26/17 16:15 01/25/18 16:14 Levalbuterol (Xopenex 1.25MG/ 3ML Neb) 1.25 mg Q6R INH 12/26/17 21:00 01/25/18 20:59 12/30/17 07:18 1.25 MG Guaifenesin (Mucinex Contr Rel Tab) 1,200 mg Q12 PO 12/26/17 21:00 01/25/18 20:59 12/29/17 20:46 1,200 MG Levalbuterol (Xopenex 1.25MG/ 3ML Neb) 1.25 mg Q2H PRN INH 12/26/17 16:30 01/25/18 16:29 Metoprolol Succinate (Toprol Xl Tab) 50 mg QAM PO 12/27/17 09:00 01/26/18 08:59 12/29/17 08:45 50 MG Insulin Aspart (novoLOG ASPART) SLIDING SCALE If C... ACHS SC 12/26/17 21:00 01/25/18 20:59 12/29/17 18:00 7 UNITS Glucose (Glucose 40% Gel) 15-30 GRAMS 15 GRAMS... UD PRN PO 12/26/17 19:45 01/25/18 19:44 Glucose (Glucose Chew Tab) 4-8 Tablets 4 Tabl... UD PRN PO 12/26/17 19:45 01/25/18 19:44 Dextrose (Dextrose 50% 50ML Syringe) 25-50ML OF 50% DW IV FOR... UD PRN IV 12/26/17 19:45 01/25/18 19:44 Glucagon (Glucagon Inj) 1 mg UD PRN SQ 12/26/17 19:45 01/25/18 19:44 Lactobacillus Acidophilus (Floranex Tab) 4 tab TIDM PO 12/27/17 07:30 01/26/18 07:29 12/29/17 18:03 4 TAB Vancomycin HCl 1000 mg/Sodium Chloride 270 ml @ 125 mls/hr Q12H IV 12/29/17 22:00 01/05/18 21:59 12/29/17 20:39 125 MLS/HR Objective Vital Signs Date Time Temp Pulse Resp B/P (MAP) Pulse Ox O2 Delivery O2 Flow Rate FiO2 12/29/17 19:56 109 18 90 Nasal Cannula 5.0 12/29/17 16:00 92 Nasal Cannula 5.0 12/29/17 15:40 37.0 108 20 112/72 (85) 92 12/29/17 14:13 87 18 97 Nasal Cannula 5.0 12/29/17 08:24 36.6 103 18 129/82 (98) 93 12/29/17 08:00 93 Nasal Cannula 5.0 12/29/17 07:35 90 18 94 Nasal Cannula 5.0 12/29/17 02:05 87 18 95 Nasal Cannula 5.0 12/29/17 00:06 37.3 113 19 121/67 (85) 95 Nasal Cannula 5.0 12/29/17 00:00 Nasal Cannula 5.0 Physical Exam Comments: General: no distress Eyes: normal inspection, AMANDO Respiratory: chest non tender, coarse breath sounds thorughout, no respiratory distress, no accessory muscle use Cardiac: regular rate and rhythm, no rub or gallop, no murmur, no edema, no jvd GI/: active bowel sounds, no abd pain or tenderness, soft, non distended Extremities: normal range of motion, normal strength, non tender Neuro/Psych: alert and oriented x 3, normal mood and affect Skin: normal color, dry Laboratory Results Last 24 Hours Test 12/29/17 08:02 12/29/17 09:34 12/29/17 11:32 12/29/17 12:12 Bedside Glucose 130 mg/dl 184 mg/dl White Blood Count 14.11 K/uL Red Blood Count 3.13 M/uL Hemoglobin 9.0 g/dL Hematocrit 26.3 % Mean Corpuscular Volume 84.0 fL Mean Corpuscular Hemoglobin 28.8 pg Mean Corpuscular Hemoglobin Concent 34.2 g/dl Platelet Count 273 K/uL Mean Platelet Volume 8.8 fL Neutrophils (%) (Auto) 90.3 % Lymphocytes (%) (Auto) 4.5 % Monocytes (%) (Auto) 4.1 % Eosinophils (%) (Auto) 0.3 % Basophils (%) (Auto) 0.1 % Neutrophils # (Auto) 12.75 K/uL Lymphocytes # (Auto) 0.63 K/uL Monocytes # (Auto) 0.58 K/uL Eosinophils # (Auto) 0.04 K/uL Basophils # (Auto) 0.01 K/uL RDW Standard Deviation 44.3 fL RDW Coefficient of Variation 14.5 % Immature Granulocyte % (Auto) 0.7 % Immature Granulocyte # (Auto) 0.10 K/uL Creatinine 1.09 mg/dl Est Creatinine Clear Calc Drug Dose 55.5 ml/min Estimated GFR () 77.1 Estimated GFR (Non- 66.5 Iron Level 22 mcg/dl Total Iron Binding Capacity 133 mcg/dl Transferrin 110 mg/dl Transferrin % Saturation 14 % Vancomycin Level Trough 10.0 mcg/ml Stool Occult Blood POSITIVE Test 12/29/17 16:21 12/29/17 19:58 Bedside Glucose 197 mg/dl 110 mg/dl Assessment and Plan Mr. Aden is a 72 year old man here for multifocal pna. 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 -However, he continues to require supplemental oxygen. - Continue xopenex duonebs, O2 protocol, supportive therapy with incentive spirometry, mucinex -Patient normally is not on oxygen, however due to the PNA, patient has required supplementation while here. -pt does not wear supplemental O2 at baseline - titrate down from 4L as possible - Speech therapy consult to r/o aspiration - they signed off, no concern for aspiration - IVF discontinued - Lung cancer stable, has a PET scan scheduled in 2 months - Will hold on steroids at this time with hx of cancer and having h/o immunocompromised. - PT/OT Tachycardia/ Hypotension/ Type II NSTEMI Diastolic CHF CAD s/p multiple MILLIE and 1 bare metal stent Ischemic Cardiomyopathy -BP has improved but patient remains tachycardic. - troponin peaked 0.33 today and trended down - Grade I diastolic dysfunction, EF 45% - appears euvolemic at this time - Will hold lisinopril for now - Continue on asa 81 mg, plavix, and Toprol XL 50 mg QAM Anemia of chronic disease - no signs of active bleeding. -Hemoglobin has been controlled. CKD stage III, possible GHANSHYAM - Cr 1.48, trended back to baseline - Blood pressures better, systolic in 1 teens - will continue to hold lisinopril for low bp DM II - Hold Metformin and glipizide - A1c 6.8 -Cover with insulin sliding scale and Accu-Cheks ACHS BPH - Continue finasteride DVT ppx: Teds, scds CODE STATUS: FULL CODE Disposition: From home, lives with , TIM to assist with dc planning I spent 55 minutes in the management of this case. This includes long discussion with patient about his slow improvement, reviewing case, and images. Continued [facility] stay due to: other Discharge planning: uncertain
[2017-12-30] VITALS (10 sets, daily range): BP systolic 121–143; BP diastolic 73–78; PULSE 81–116; TEMP 36.7–37.7; O2SAT 91–98
[2017-12-30] MEDS: LEVALBUTEROL 1.25MG/3ML NEB INH SCH ×4 (02:02→19:27)
[2017-12-30] MEDS: PIPERACILL/TAZOBAC IV 3.375 GM in DEXTROSE 5% 100ML 100 ML IV SCH ×3 (05:26→21:11)
[2017-12-30 08:12] LABS: CALCIUM 8.3 mg/dl (8.5-10.1); CREATININE 0.99 mg/dl (0.60-1.40); POTASSIUM 3.5 mmol/L (3.5-5.1)
[2017-12-30 08:13] LABS: BASO % 0.1 %; BASO ABS # 0.01 K/uL (0-0.2); EOS % 0.8 %; EOS ABS # 0.09 K/uL (0-0.5); HEMATOCRIT 25.2 % (42-52); HEMOGLOBIN 8.6 g/dL (14.0-18.0); IG# 0.09 K/uL (0.00-0.02); LYMPH % 2.8 %; LYMPH ABS # 0.33 K/uL (1.2-3.4); MEAN CELL VOLUME 84.3 fL (80-100); MEAN CORPUSCULAR HEMOGLOBIN 28.8 pg (25-34); MEAN CORPUSCULAR HGB CONC 34.1 g/dl (32-36); MEAN PLATELET VOLUME 9.2 fL (7.4-10.4); MONO % 10.8 %; MONO ABS # 1.26 K/uL (0.11-0.59); NEUT % 84.7 %; NEUT ABS # 9.87 K/uL (1.4-6.5); PLATELET COUNT 308 K/uL (130-400); RED CELL DISTRIBUTION WIDTH CV 14.4 % (11.5-14.5); RED CELL DISTRIBUTION WIDTH SD 44.5 fL (36.4-46.3); WHITE BLOOD COUNT 11.65 K/uL (4.8-10.8)
[2017-12-30] MEDS: LACTOBACILLUS ACIDOPHILUS (FLORANEX) TAB PO SCH ×3 (08:16→18:26)
[2017-12-30] MEDS: ASPIRIN 81 MG ECTAB PO SCH (08:16)
[2017-12-30] MEDS: CLOPIDOGREL BISULFATE 75 MG TAB PO SCH (08:17)
[2017-12-30] MEDS: FINASTERIDE 5 MG TAB PO SCH (08:17)
[2017-12-30] MEDS: GUAIFENESIN 600 MG TABCR PO SCH ×2 (08:18→21:11)
[2017-12-30] MEDS: METOPROLOL SUCC 50MG EXT REL TAB PO SCH (08:18)
[2017-12-30] MEDS: INSULIN ASPART 100 UNITS/ML 3 ML PEN SC SCH ×4 (08:53→21:11)
[2017-12-30] MEDS: VANCOMYCIN IV 1,000 MG in SODIUM CHLORIDE 0.9% 250ML 250 ML IV SCH (10:20)
--- NOTE | 2017-12-30 13:12 | Progress Note ---
Subjective Date of Service: Dec 30, 2017. Subjective Patient had a febrile episode in the evening. Patient though reports feling well and is breathing better than he did yesterday. Problem List Medical Problems: (1) Acute bronchitis Status: Acute (2) GHANSHYAM (acute kidney injury) Status: Acute (3) Enlarged prostate Status: Chronic (4) Exertional dyspnea Status: Acute (5) Hx of cancer of lung Status: Acute (6) Hyperkalemia Status: Acute (7) Leukocytosis Status: Acute (8) Leukocytosis Status: Acute (9) Pneumonia Status: Acute (10) Sepsis Status: Acute (11) Stabbing chest pain Status: Acute (12) Substernal chest pain Status: Acute Review of Systems Constitutional: + fever, No chills Eyes: No worsening of vision ENT: No hearing loss Respiratory: + cough, + shortness of breath, No sputum Cardiac: No chest pain, No orthopnea Abdomen: No pain Male : No dysuria Neurologic: No memory loss Psychiatric: No depression symptoms Endo: No fatigue Skin: No rash All Other Systems: Reviewed and Negative Objective Vital Signs Date Time Temp Pulse Resp B/P (MAP) Pulse Ox O2 Delivery O2 Flow Rate FiO2 12/30/17 08:00 93 Nasal Cannula 3.0 12/30/17 07:30 36.9 99 20 121/76 (91) 94 12/30/17 07:19 102 18 96 Nasal Cannula 4.0 12/30/17 06:06 37.1 12/30/17 02:03 100 18 98 Nasal Cannula 5.0 12/30/17 00:39 37.7 101 20 121/73 (89) 95 5.0 12/30/17 00:00 Nasal Cannula 5.0 12/29/17 19:56 109 18 90 Nasal Cannula 5.0 12/29/17 16:00 92 Nasal Cannula 5.0 12/29/17 15:40 37.0 108 20 112/72 (85) 92 12/29/17 14:13 87 18 97 Nasal Cannula 5.0 Physical Exam Comments: General: no distress Eyes: normal inspection, AMANDO Respiratory: chest non tender, , no respiratory distress, no accessory muscle use, coarse breath sounds on upper lobes Cardiac: regular rate and rhythm, no rub or gallop, no murmur, no edema, no jvd GI/: active bowel sounds, no abd pain or tenderness, soft, non distended Extremities: normal range of motion, normal strength, non tender Neuro/Psych: alert and oriented x 3, normal mood and affect Skin: normal color, dry` Laboratory Results Last 24 Hours Test 12/29/17 16:21 12/29/17 19:58 12/30/17 07:22 12/30/17 07:24 Bedside Glucose 197 mg/dl 110 mg/dl 135 mg/dl White Blood Count 11.65 K/uL Red Blood Count 2.99 M/uL Hemoglobin 8.6 g/dL Hematocrit 25.2 % Mean Corpuscular Volume 84.3 fL Mean Corpuscular Hemoglobin 28.8 pg Mean Corpuscular Hemoglobin Concent 34.1 g/dl Platelet Count 308 K/uL Mean Platelet Volume 9.2 fL Neutrophils (%) (Auto) 84.7 % Lymphocytes (%) (Auto) 2.8 % Monocytes (%) (Auto) 10.8 % Eosinophils (%) (Auto) 0.8 % Basophils (%) (Auto) 0.1 % Neutrophils # (Auto) 9.87 K/uL Lymphocytes # (Auto) 0.33 K/uL Monocytes # (Auto) 1.26 K/uL Eosinophils # (Auto) 0.09 K/uL Basophils # (Auto) 0.01 K/uL RDW Standard Deviation 44.5 fL RDW Coefficient of Variation 14.4 % Immature Granulocyte % (Auto) 0.8 % Immature Granulocyte # (Auto) 0.09 K/uL Red Blood Cell Morphology Unremarkable Sodium Level 136 mmol/L Potassium Level 3.5 mmol/L Chloride Level 104 mmol/L Carbon Dioxide Level 24 mmol/L Anion Gap 9.0 mmol/L Blood Urea Nitrogen 15 mg/dl Creatinine 0.99 mg/dl Est Creatinine Clear Calc Drug Dose 61.0 ml/min Estimated GFR () 86.6 Estimated GFR (Non- 74.7 BUN/Creatinine Ratio 14.8 Random Glucose 136 mg/dl Calcium Level 8.3 mg/dl Test 12/30/17 11:22 Bedside Glucose 224 mg/dl Assessment and Plan Mr. Aden is a 72 year old man here for multifocal pna. 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 -However, he continues to require supplemental oxygen. - Continue xopenex duonebs, O2 protocol, supportive therapy with incentive spirometry, mucinex -Patient normally is not on oxygen, however due to the PNA, patient has required supplementation while here. -pt does not wear supplemental O2 at baseline - titrate down from 4L as possible - Speech therapy consult to r/o aspiration - they signed off, no concern for aspiration - IVF discontinued - Lung cancer stable, has a PET scan scheduled in 2 months - Will hold on steroids at this time with hx of cancer and having h/o immunocompromised. - will also consult pulmonary Tachycardia/ Hypotension/ Type II NSTEMI Diastolic CHF CAD s/p multiple MILLIE and 1 bare metal stent Ischemic Cardiomyopathy -BP has improved but patient remains tachycardic. - troponin peaked 0.33 today and trended down - Grade I diastolic dysfunction, EF 45% - appears euvolemic at this time - Will hold lisinopril for now - Continue on asa 81 mg, plavix, and Toprol XL 50 mg QAM Anemia of chronic disease - no signs of active bleeding. -Hemoglobin has been controlled. CKD stage III, possible GHANSHYAM - Cr 1.48, trended back to baseline - Blood pressures better, systolic in 1 teens - will continue to hold lisinopril for low bp DM II - Hold Metformin and glipizide - A1c 6.8 -Cover with insulin sliding scale and Accu-Cheks ACHS BPH - Continue finasteride DVT ppx: Teds, scds CODE STATUS: FULL CODE Disposition: From home, lives with , CM to assist with dc planning Continued [facility] stay due to: other Discharge planning: uncertain
--- NOTE | 2017-12-30 13:56 | Pulmonary Consultation ---
History General Date of Service: Dec 30, 2017. Stated Complaint: Pneumonia,Tachycardia HPI The patient is a 72 year old male who presents to [facility] with complaints of Pneumonia,Tachycardia. The patient's primary care provider is Charles Vera M.D.. 72-year-old male admitted with pneumonia. Patient has a PmHx significant for: Limited small cell lung carcinoma (chemo/radio), CAD/CA (3 PCI 1 bare metal stent 2007, multiple MILLIE: LCA & OM 2007, RCA x2 2005), diastolic heart failure , PVD, peripheral neuropathy, diabetes, BPH and chronic anemia., hypertension and hyperlipidemia. Patient had been experiencing URI type symptoms 3-4 weeks prior to his admission. Patient did have some minor improvement at the beginning but then started to have increasing fatigue, shortness of breath and some rhinitis. At 1 point time prior to his admission the patient thought his cold at broke but he woke up on the Monday of admission and noted severe fatigue unable to get out of but with diffuse myalgias. That time re-presented to the emergency room and was noted to have a white blood cell count of 32 1000 an elevated creatinine at 1.48 and a heart rate ranging between 120-150 and requiring nasal cannula/oxygen support to maintain a proper saturation. Today the patient is able to easily sit up in bed and have a full discussion with no signs of respiratory insufficiency. He currently denies: Fever, chills, productive cough, hemoptysis, unintentional weight loss, pleurisy or classic cardiac chest pain as well as B type symptoms. Work-up WBC: [id number] Hemoglobin: 129 VBG 12/26/2017: 7.44/36 corrected to 7.48/30 D-dimer: 12,000 Creatinine 1.48---0.99 Troponin: 0.033--0.229--0.331--0.255 Stool occult blood test: Positive Microbiology: Blood, MRSA nasal swab, urine no significant findings EKG: Normal sinus rhythm rate 100 nonspecific T-wave changes Echocardiogram 12/27/2017 o Left ventricle: EF=45-50%, grade 1 diastolic dysfunction o Right ventricle: Within normal limits Radiology CXR: New Lateral right upper lobe infiltrative pattern, increased left upper lobe consolidation CTA thorax: Dense air space consolidation the right upper lobe posterior subsegment and increasing left upper lobe as compared to PET scan 02/08/2017 Past Medical History Past Medical History: 1. Limited stage Small cell lung cancer: Chemotherapy: Two cycles cisplatin/etoposide switched to carboplatin Grade 4 neuropathy Radiation therapy: Completed 05/02/2016 received 7000 cGy 2. Myocardial infarction/CAD 3. Anemia 4. Claudication status post PTCI 5. Diabetes 6. Dyslipidemia 7. Emphysema 8. Herpes zoster/post herpetic neuralgia 9. Bladder stones 10. Moderately severe COPD/ACOS (FEV1: 58%, notable post bronchodilator improvement, DLCO 44%) Past Surgical History: 1. EBUS/ENB 01/27/2016 2. Angioplasty with stent 3. EGD 4. Tunneled Port-A-Cath placement 5. Laser Cystolithopaxy, GLTURP Family History FH: anemia FH: myocardial infarction Hypertension Type II diabetes mellitus CHF, coronary artery disease/myocardial infarction, CVA, breast cancer, lung cancer, diabetes Social History Marital status: Tobacco: 40 pack-year history, former smoker Alcohol: Rare use Hx Tobacco Use In Past Year?: No (QUIT 10 YRS, SMOKED FOR 40 YRS - 1 PPD ) Smoking Status: Former Smoker Marital status: Housing status: lives with family Occupational Status: retired Immunizations History of Influenza Vaccine: Yes Influenza Vaccine Date: Jul 29, 2015 History of Tetanus Vaccine?: Unknown Tetanus Immunization Date: Nov 22, 2002 History of Pneumococcal: Unknown History of Hepatitis B Vaccine: Unknown Date Of Other Immunizations: Nov 22, 2007 History of MDRO History of MDRO: No Allergies Coded Allergies: No Known Allergies (Verified , 11/03/16) Current Medications Reported Home Medications Medications Dose Route/Sig Max Daily Dose Days Date Category Aspirin Ec (Aspirin) 81 Mg Tab 81 Mg PO DAILY 12/26/17 Reported Plavix (Clopidogrel Bisulfate) 75 Mg Tab 75 Mg PO DAILY 12/26/17 Reported Zestril (Lisinopril) 5 Mg Tab 5 Mg PO DAILY 10/24/17 Reported Centrum Silver Adult 50+ (Multiple Vitamins W/ Minerals) 1 Tab Tab 1 Tab PO QAM 03/09/16 Reported Proscar (Finasteride) 5 Mg Tab 5 Mg PO QAM 01/25/16 Reported Glipizide Er (Glipizide) 2.5 Mg Tab 2.5 Mg PO QAM 01/25/16 Reported Toprol Xl (Metoprolol Succinate) 50 Mg Tabcr 50 Mg PO QAM 11/23/13 Reported Zocor (Simvastatin) 80 Mg Tab 80 Mg PO HS 11/23/13 Reported Glucophage (Metformin Hcl) 500 Mg Tab 1,000 Mg PO BID 11/23/13 Reported Physical Physical Exam Vital Signs: Date Time Temp Pulse Resp B/P (MAP) Pulse Ox O2 Delivery O2 Flow Rate FiO2 12/30/17 08:00 93 Nasal Cannula 3.0 12/30/17 07:30 36.9 99 20 121/76 (91) 94 12/30/17 07:19 102 18 96 Nasal Cannula 4.0 12/30/17 06:06 37.1 12/30/17 02:03 100 18 98 Nasal Cannula 5.0 12/30/17 00:39 37.7 101 20 121/73 (89) 95 5.0 12/30/17 00:00 Nasal Cannula 5.0 12/29/17 19:56 109 18 90 Nasal Cannula 5.0 12/29/17 16:00 92 Nasal Cannula 5.0 12/29/17 15:40 37.0 108 20 112/72 (85) 92 12/29/17 14:13 87 18 97 Nasal Cannula 5.0 General Appearance: other (Thin male but in no apparent distress) Head: NORMOCEPHALIC, ATRAUMATIC Eyes: PERRLA, NO DISCHARGE, EOMI, SCLERAE NORMAL ENT: NORMAL EAR EXAM, NORMAL NASAL EXAM, NORMAL MOUTH EXAM, NORMAL THROAT EXAM , NORMAL DENTAL EXAM Neck: NORMAL RANGE OF MOTION, NO TENDERNESS, TRACHEA MIDLINE Respiratory: other (Rhonchi noted bilaterally in the upper lobes) Cardiovasular: REGULAR RATE/RHYTHM, NORMAL S1S2, NO M/G/R, NO MURMUR Abdomen: NON TENDER, NORMAL BOWEL SOUNDS, NO REBOUND, NO MASSES, NO GUARDING Genitourinary - Male: EXTERNAL GENITALIA NORMAL Back: NORMAL INSPECTION, NO MIDLINE TENDERNESS, NO CVA TENDERNESS, NO PARAVERTEBRAL TTP Upper Extremities: NO EDEMA, NO DEFORMITY, NORMAL ROM Lower Extremities: NO EDEMA, NO DEFORMITY, NORMAL ROM Pulses: carotid (R) (2+), carotid (L) (2+), posterior tibial (R), posterior tibial (L) (2+) Neuro: ALERT, ORIENTED x 3, NORMAL MOTOR EXAM, NORMAL SENSATION Reflexes: biceps (R) (2+), bicpes (L) (2+), achilles (R) (2+), achilles (L) (2+ ) Babinski Testing: right (downgoing), left (downgoing) Psychiatric: NORMAL AFFECT, NO SUICIDAL IDEATION Diagnostics Labs Results Past 24 Hours Test 12/29/17 16:21 12/29/17 19:58 12/30/17 07:22 12/30/17 07:24 Range/Units Bedside Glucose 197 110 135 70-99 mg/dl White Blood Count 11.65 4.8-10.8 K/uL Red Blood Count 2.99 4.7-6.1 M/uL Hemoglobin 8.6 14.0-18.0 g/dL Hematocrit 25.2 42-52 % Mean Corpuscular Volume 84.3 80-100 fL Mean Corpuscular Hemoglobin 28.8 25-34 pg Mean Corpuscular Hemoglobin Concent 34.1 32-36 g/dl Platelet Count 308 130-400 K/uL Mean Platelet Volume 9.2 7.4-10.4 fL Neutrophils (%) (Auto) 84.7 % Lymphocytes (%) (Auto) 2.8 % Monocytes (%) (Auto) 10.8 % Eosinophils (%) (Auto) 0.8 % Basophils (%) (Auto) 0.1 % Neutrophils # (Auto) 9.87 1.4-6.5 K/uL Lymphocytes # (Auto) 0.33 1.2-3.4 K/uL Monocytes # (Auto) 1.26 0.11-0.59 K/uL Eosinophils # (Auto) 0.09 0-0.5 K/uL Basophils # (Auto) 0.01 0-0.2 K/uL RDW Standard Deviation 44.5 36.4-46.3 fL RDW Coefficient of Variation 14.4 11.5-14.5 % Immature Granulocyte % (Auto) 0.8 % Immature Granulocyte # (Auto) 0.09 0.00-0.02 K/uL Red Blood Cell Morphology Unremarkable Sodium Level 136 136-145 mmol/L Potassium Level 3.5 3.5-5.1 mmol/L Chloride Level 104 98-107 mmol/L Carbon Dioxide Level 24 21-32 mmol/L Anion Gap 9.0 3-11 mmol/L Blood Urea Nitrogen 15 7-18 mg/dl Creatinine 0.99 0.60-1.40 mg/dl Est Creatinine Clear Calc Drug Dose 61.0 ml/min Estimated GFR () 86.6 Estimated GFR (Non- 74.7 BUN/Creatinine Ratio 14.8 10-20 Random Glucose 136 70-99 mg/dl Calcium Level 8.3 8.5-10.1 mg/dl Test 12/30/17 11:22 Range/Units Bedside Glucose 224 70-99 mg/dl Diagnostic Radiology CXR: New Lateral right upper lobe infiltrative pattern, increased left upper lobe consolidation CTA thorax: Dense air space consolidation the right upper lobe posterior subsegment and increasing left upper lobe as compared to PET scan 02/08/2017 EKG Normal sinus rhythm, rate 100 with nonspecific T-wave findings Impression Assessment and Plan 72-year-old male admitted with pneumonia: 1. Pneumonia: Patient does appear to have a notable necrotizing pneumonia most apparent in the right upper lobe posterior subsegment but there does appear to be increasing infiltrative pattern within the left upper lobe in the previous feel the radiation. At this time the patient has responded well to antibiotics and I suggest continuing the Zosyn but I will discontinue the vancomycin as the patient's MRSA swab was negative. 2. Small cell lung cancer: Patient is currently followed by Dr. Poole from the [facility] and has been clinically doing well until this most recent hospitalization. I am concerned that the patient's most recent CT does show increasing infiltrative pattern in the right upper lobe as compared to his PET scan performed 02/08/2017. The patient is to have be followed up by Dr. Poole soon for repeat CT scan to monitor his small cell lung CA. I suggest we do not repeat the CT scan for at least a 6 week window to allow for this current pneumonia to resolve itself and not give a false positive. I spoke to the patient and at length about this issue but I have also urged them not to ignore any new signs signs such as weight loss, hemoptysis, pleurisy or continued fatigue. I informed them that if any new signs do occur that this should follow-up more rapidly with myself or Dr. Poole. Sign off: At this time the pulmonary team will sign off please contact us if the patient's clinical situation changes.
[2017-12-30] MEDS ORDERED: SODIUM CHLORIDE 0.65% NA SOLN 45 ML (OCEAN) ONE (17:16)
[2017-12-30] MEDS: SIMVASTATIN 80 MG TAB PO SCH (21:11)
[2017-12-30 23:13] LABS: HEMATOCRIT 26.6 % (42-52); HEMOGLOBIN 9.1 g/dL (14.0-18.0)
[2017-12-30] MEDS: OXYMETAZOLINE HCL 0.05% NA SPR 15 ML BTL ONE (23:33)
[2017-12-31] MEDS: LEVALBUTEROL 1.25MG/3ML NEB INH SCH ×4 (01:41→19:29)
[2017-12-31 01:42] VITALS: PULSE 106; O2SAT 96
[2017-12-31] MEDS: PIPERACILL/TAZOBAC IV 3.375 GM in DEXTROSE 5% 100ML 100 ML IV SCH ×3 (05:39→21:29)
[2017-12-31] MEDS: ACETAMINOPHEN 325 MG TAB PO PRN ×3 (05:46→17:29)
[2017-12-31 07:00] LABS: BASO % 0.1 %; BASO ABS # 0.01 K/uL (0-0.2); EOS % 0.8 %; EOS ABS # 0.12 K/uL (0-0.5); HEMATOCRIT 28.5 % (42-52); HEMOGLOBIN 9.7 g/dL (14.0-18.0); IG# 0.13 K/uL (0.00-0.02); LYMPH % 3.5 %; LYMPH ABS # 0.49 K/uL (1.2-3.4); MEAN CELL VOLUME 84.8 fL (80-100); MEAN CORPUSCULAR HEMOGLOBIN 28.9 pg (25-34); MEAN PLATELET VOLUME 9.4 fL (7.4-10.4); MONO % 12.3 %; MONO ABS # 1.74 K/uL (0.11-0.59); NEUT % 82.4 %; NEUT ABS # 11.65 K/uL (1.4-6.5); PLATELET COUNT 356 K/uL (130-400); RED CELL DISTRIBUTION WIDTH CV 14.6 % (11.5-14.5); RED CELL DISTRIBUTION WIDTH SD 45.4 fL (36.4-46.3); WHITE BLOOD COUNT 14.14 K/uL (4.8-10.8)
[2017-12-31 07:19] VITALS: PULSE 86; O2SAT 98
[2017-12-31 07:21] LABS: CREATININE 1.1 mg/dl (0.60-1.40)
[2017-12-31 07:38] VITALS: BP 115/71; PULSE 102; TEMP 36.8; O2SAT 96
[2017-12-31] MEDS: FINASTERIDE 5 MG TAB PO SCH (08:32)
[2017-12-31] MEDS: LACTOBACILLUS ACIDOPHILUS (FLORANEX) TAB PO SCH ×3 (08:32→17:30)
[2017-12-31] MEDS: METOPROLOL SUCC 50MG EXT REL TAB PO SCH (08:33)
[2017-12-31] MEDS: GUAIFENESIN 600 MG TABCR PO SCH ×2 (08:33→21:30)
[2017-12-31] MEDS: INSULIN ASPART 100 UNITS/ML 3 ML PEN SC SCH ×4 (09:08→21:33)
[2017-12-31] MEDS ORDERED: VANCOMYCIN TROUGH ONE (09:30)
[2017-12-31 14:16] VITALS: PULSE 92; O2SAT 95
[2017-12-31 14:54] VITALS: BP 125/76; PULSE 95; TEMP 36.7; O2SAT 95
[2017-12-31] MEDS ORDERED: NURSING VERBAL MED ORDER ONE (18:00)
--- NOTE | 2017-12-31 18:57 | DIAGNOSTIC IMAGING REPORT ---
CHEST ONE VIEW PORTABLE HISTORY: 72 years-old Male chest pain acute atypical chest pain COMPARISON: Chest radiograph and CT chest 12/26/2017 TECHNIQUE: Portable AP view of the chest FINDINGS: Cardiac silhouette is within normal limits. Left subclavian Qakbni-p-Ofyw catheter is unchanged. Coronary arterial stent graft is noted. Advanced emphysematous changes with postoperative changes of the left lung redemonstrated. Persistent consolidation of the left upper lung appears unchanged. Patchy consolidative opacities of the right lateral midlung are unchanged with progressively worsened right basilar opacities. No pneumothorax identified.. Blunting of the right cost phrenic angle suggests trace effusion. IMPRESSION: 1. Progressively worsened consolidation of the right lateral midlung and right lung base suggests infectious or inflammatory pneumonitis. 2. Postoperative changes about the left lung with stable left upper lung consolidation, possibly reflecting posttreatment changes or pneumonia. 3. Trace right pleural effusion. 4. Advanced emphysema. The above report was generated using voice recognition software. It may contain grammatical, syntax or spelling errors. Electronically signed by: Tom Maguire M.D. 12/31/2017 6:55 PM Dictated Date/Time: 12/31/2017 6:52 PM
[2017-12-31 19:31] VITALS: PULSE 113; O2SAT 96
[2017-12-31] MEDS: BOOST GLUCOSE CONTROL PO SCH (21:29)
[2017-12-31] MEDS: SIMVASTATIN 80 MG TAB PO SCH (21:30)
--- NOTE | 2017-12-31 22:29 | Progress Note ---
Subjective Date of Service: Dec 31, 2017. Subjective 72 yo male presents with necrotizing pneumonia. Patient today has had intermittent episodes of chest pain with deep breaths Patient states that he has had this throughout his stay, today though he stated that it was slightly worse. Patient also reports that he has had some dyspnea with exertion. But was able to ambulate in the halls today. He states that his appetite has decreased today. Overnight resident held morning dose of aspirin and plavix due to epistaxis which has subsided today. Problem List Medical Problems: (1) Acute bronchitis Status: Acute (2) GHANSHYAM (acute kidney injury) Status: Acute (3) Enlarged prostate Status: Chronic (4) Exertional dyspnea Status: Acute (5) Hx of cancer of lung Status: Acute (6) Hyperkalemia Status: Acute (7) Leukocytosis Status: Acute (8) Leukocytosis Status: Acute (9) Pneumonia Status: Acute (10) Sepsis Status: Acute (11) Stabbing chest pain Status: Acute (12) Substernal chest pain Status: Acute Review of Systems Constitutional: + fever, No chills Eyes: No worsening of vision ENT: No hearing loss Respiratory: + cough, + shortness of breath, No sputum, epistaxis Cardiac: No chest pain, No orthopnea Abdomen: No pain Male : No dysuria Neurologic: No memory loss Psychiatric: No depression symptoms Endo: No fatigue Skin: No rash All Other Systems: Reviewed and Negative All Other Systems: Reviewed and Negative Medications Current Inpatient Medications Medications (Trade) Dose Ordered Sig/Vianey Route Start Time Stop Time Status Last Admin Dose Admin Acetaminophen (Tylenol Tab) 650 mg Q4H PRN PO 12/26/17 16:00 01/25/18 15:59 12/31/17 17:29 650 MG Ondansetron HCl (Zofran Inj) 4 mg Q6H PRN IV 12/26/17 16:00 01/25/18 15:59 Polyethylene (Miralax Powder Packet) 17 gm DAILY PRN PO 12/26/17 16:00 01/25/18 15:59 Aspirin (Ecotrin Tab) 81 mg DAILY PO 12/27/17 09:00 01/26/18 08:59 Future hold 12/30/17 08:16 81 MG Clopidogrel Bisulfate (plAVix TAB) 75 mg DAILY PO 12/27/17 09:00 01/26/18 08:59 Future hold 12/30/17 08:17 75 MG Finasteride (Proscar Tab) 5 mg QAM PO 12/27/17 09:00 01/26/18 08:59 12/31/17 08:32 5 MG Simvastatin (Zocor Tab) 80 mg HS PO 12/26/17 21:00 01/25/18 20:59 12/30/17 21:11 80 MG Piperacillin Sod/ Tazobactam Sod 3.375 gm/Dextrose 115 ml @ 28.75 mls/ hr Q8H IV 12/26/17 22:00 01/02/18 21:59 12/31/17 14:29 28.75 MLS/HR Miscellaneous Information (Consult) 1 ea UD PRN N/A 12/26/17 16:15 01/25/18 16:14 Levalbuterol (Xopenex 1.25MG/ 3ML Neb) 1.25 mg Q6R INH 12/26/17 21:00 01/25/18 20:59 12/31/17 19:29 1.25 MG Guaifenesin (Mucinex Contr Rel Tab) 1,200 mg Q12 PO 12/26/17 21:00 01/25/18 20:59 12/31/17 08:33 1,200 MG Levalbuterol (Xopenex 1.25MG/ 3ML Neb) 1.25 mg Q2H PRN INH 12/26/17 16:30 01/25/18 16:29 Metoprolol Succinate (Toprol Xl Tab) 50 mg QAM PO 12/27/17 09:00 01/26/18 08:59 12/31/17 08:33 50 MG Insulin Aspart (novoLOG ASPART) SLIDING SCALE If C... ACHS SC 12/26/17 21:00 01/25/18 20:59 12/31/17 18:46 7 UNITS Glucose (Glucose 40% Gel) 15-30 GRAMS 15 GRAMS... UD PRN PO 12/26/17 19:45 01/25/18 19:44 Glucose (Glucose Chew Tab) 4-8 Tablets 4 Tabl... UD PRN PO 12/26/17 19:45 01/25/18 19:44 Dextrose (Dextrose 50% 50ML Syringe) 25-50ML OF 50% DW IV FOR... UD PRN IV 12/26/17 19:45 01/25/18 19:44 Glucagon (Glucagon Inj) 1 mg UD PRN SQ 12/26/17 19:45 01/25/18 19:44 Lactobacillus Acidophilus (Floranex Tab) 4 tab TIDM PO 12/27/17 07:30 01/26/18 07:29 12/31/17 17:30 4 TAB Enteral Nutritional Formula (Boost Glucose Control) 1 can BID@09,1999 PO 12/31/17 20:00 01/30/18 19:59 Objective Vital Signs Date Time Temp Pulse Resp B/P (MAP) Pulse Ox O2 Delivery O2 Flow Rate FiO2 12/31/17 19:31 113 20 96 Nasal Cannula 5.0 12/31/17 16:00 Nasal Cannula 4.0 12/31/17 14:54 36.7 95 18 125/76 (92) 95 12/31/17 14:16 92 20 95 Nasal Cannula 4.0 12/31/17 08:00 Nasal Cannula 3.0 12/31/17 07:38 36.8 102 18 115/71 (86) 96 3.0 12/31/17 07:19 86 20 98 Nasal Cannula 5.0 12/31/17 01:42 106 20 96 Nasal Cannula 5.0 12/31/17 00:00 Nasal Cannula 3.0 Humidified Oxygen 12/30/17 23:07 37.4 109 20 132/78 (96) 92 3.0 Physical Exam Comments: General: no distress Eyes: normal inspection, AMANDO ENT: no blood in nares, normal inspection neck: supple, no adenopathy Respiratory: chest non tender, , no respiratory distress, no accessory muscle use, coarse breath sounds on upper lobes Cardiac: regular rate and rhythm, no rub or gallop, no murmur, no edema, no jvd GI/: active bowel sounds, no abd pain or tenderness, soft, non distended Extremities: normal range of motion, normal strength, non tender Neuro/Psych: alert and oriented x 3, normal mood and affect Skin: normal color, dry Laboratory Results Last 24 Hours Test 12/30/17 23:02 12/31/17 06:21 12/31/17 07:28 12/31/17 09:28 Hemoglobin 9.1 g/dL 9.7 g/dL Hematocrit 26.6 % 28.5 % White Blood Count 14.14 K/uL Red Blood Count 3.36 M/uL Mean Corpuscular Volume 84.8 fL Mean Corpuscular Hemoglobin 28.9 pg Mean Corpuscular Hemoglobin Concent 34.0 g/dl Platelet Count 356 K/uL Mean Platelet Volume 9.4 fL Neutrophils (%) (Auto) 82.4 % Lymphocytes (%) (Auto) 3.5 % Monocytes (%) (Auto) 12.3 % Eosinophils (%) (Auto) 0.8 % Basophils (%) (Auto) 0.1 % Neutrophils # (Auto) 11.65 K/uL Lymphocytes # (Auto) 0.49 K/uL Monocytes # (Auto) 1.74 K/uL Eosinophils # (Auto) 0.12 K/uL Basophils # (Auto) 0.01 K/uL RDW Standard Deviation 45.4 fL RDW Coefficient of Variation 14.6 % Immature Granulocyte % (Auto) 0.9 % Immature Granulocyte # (Auto) 0.13 K/uL Creatinine 1.10 mg/dl Est Creatinine Clear Calc Drug Dose 54.9 ml/min Estimated GFR () 76.2 Estimated GFR (Non- 65.8 Chemistry Specimen Hemolysis Bedside Glucose 171 mg/dl Vancomycin Level Trough 7.8 mcg/ml Test 12/31/17 11:25 12/31/17 16:25 12/31/17 20:16 Bedside Glucose 270 mg/dl 252 mg/dl 276 mg/dl Assessment and Plan Mr. Aden is a 72 year old man here for multifocal pna. 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 -Patient has complicated factors such as COPD, emphysema and extensive history of smoking - CXR and CT showed multifocal PNA - no evidence of PE on CTA - WBC of 32,000 on admission - continue on zosyn. Vanco was stopped yesterday from pulmonary as MRSA swab negative. -[place] [address] but today bumped up again. -X-ray was worse today as well. -will obtain a ct scan today -Discussed with pulmonary, team will see patient on Monday. -Vanco was stopped yesterday but a trough were never at goal, dont believe lack of vanco is playing a role in patient. Will review ct scan. If patient continues to worsen, will consider perhaps readding vanco. - Continue xopenex duonebs, O2 protocol, supportive therapy with incentive spirometry, mucinex -Patient normally is not on oxygen, however due to the PNA, patient has required supplementation while here. -pt does not wear supplemental O2 at baseline - titrate down from 4L as possible - Speech therapy consult to r/o aspiration - they signed off, no concern for aspiration - IVF discontinued - Lung cancer stable, has a PET scan scheduled in 2 months - Will hold on steroids at this time with hx of cancer and having h/o immunocompromised. - will continue to follow pulmonary recommendations. Tachycardia/ Hypotension/ Type II NSTEMI Diastolic CHF CAD s/p multiple MILLIE and 1 bare metal stent Ischemic Cardiomyopathy -BP has improved but patient remains tachycardic. - troponin peaked 0.33 today and trended down - Grade I diastolic dysfunction, EF 45% - appears euvolemic at this time - Will hold lisinopril for now - Continue on asa 81 mg, plavix, and Toprol XL 50 mg QAM Anemia of chronic disease - no signs of active bleeding. -Hemoglobin has been controlled. CKD stage III, possible GHANSHYAM - Cr 1.48, trended back to baseline - Blood pressures better, systolic in 1 teens - will continue to hold lisinopril for low bp DM II - Hold Metformin and glipizide - A1c 6.8 -Cover with insulin sliding scale and Accu-Cheks ACHS BPH - Continue finasteride -chest pain on right lower lung anteriorly, likely from pneumonia. will monitor. may use fentanyl patch if pain worsens or lidocaine -Epistaxis asa and plavix held in am by evening team. epistaxis improved. will resume in AM DVT ppx: Teds, scds CODE STATUS: FULL CODE Disposition: From home, lives with , TIM to assist with dc planning Updated patient and answered multiple questions. Discussed code status. Patient is unsure if he wants to be DNR. But does state he does not want heroics if he will likely not recover. I spent over 65 minutes with patient and managing this case. Continued [facility] stay due to: other Discharge planning: uncertain
[2017-12-31] MEDS ORDERED: KETOROLAC TROMETHAMINE 15 MG/ML VIAL IV ONE (22:30)
[2018-01-01] VITALS (9 sets, daily range): BP systolic 104–139; BP diastolic 63–81; PULSE 70–107; TEMP 36.3–36.8; O2SAT 92–96; BMI 22.1
[2018-01-01] MEDS: ACETAMINOPHEN 325 MG TAB PO PRN ×2 (01:39→06:16)
[2018-01-01] MEDS: LEVALBUTEROL 1.25MG/3ML NEB INH SCH ×4 (01:56→19:41)
[2018-01-01] MEDS ORDERED: LIDODERM (LIDOCAINE) PATCH 5% TD ONE (02:30)
[2018-01-01] MEDS ORDERED: NURSING VERBAL MED ORDER ONE ×2 (02:30→11:00)
[2018-01-01] MEDS: PIPERACILL/TAZOBAC IV 3.375 GM in DEXTROSE 5% 100ML 100 ML IV SCH ×3 (06:13→21:17)
[2018-01-01] MEDS: OXYMETAZOLINE HCL 0.05% NA SPR 15 ML BTL ONE (06:57)
--- NOTE | 2018-01-01 06:57 | DIAGNOSTIC IMAGING REPORT ---
(CHEST) THORAX WITHOUT CT DOSE: 243.23 mGy.cm HISTORY: Pneumonia necrotizing pneumonia; worsening x-ray TECHNIQUE: Multiaxial CT images of the chest were performed without contrast. A dose lowering technique was utilized adhering to the principles of ALARA. COMPARISON: 12/26/2017 FINDINGS: Emphysematous change unaltered from the prior study. Interval development of right pleural effusion area in progressive and/or developing right basilar and right middle lobe infiltrative change. Progressive consolidative change in the superior segment right lower lobe. Several small blebs contain small air-fluid levels. Similar consolidative change left upper lung. Left perihilar consolidative changes are stable postoperative change. IMPRESSION: Somewhat progressive parenchymal infiltrative changes throughout the right and to lesser extent left lung. 2. Baseline emphysematous change. 3. Stable postoperative change. 4. This scan is suggestive of progressive multifocal infiltrative change combined with an interval right effusion. The above report was generated using voice recognition software. It may contain grammatical, syntax or spelling errors. Electronically signed by: Ezekiel Collier M.D. 01/01/2018 6:56 AM Dictated Date/Time: 01/01/2018 6:52 AM
[2018-01-01 07:03] LABS: BASO % 0.1 %; BASO ABS # 0.01 K/uL (0-0.2); EOS % 2.7 %; HEMATOCRIT 30.1 % (42-52); HEMOGLOBIN 10.1 g/dL (14.0-18.0); IG# 0.11 K/uL (0.00-0.02); LYMPH % 5.3 %; LYMPH ABS # 0.59 K/uL (1.2-3.4); MEAN CELL VOLUME 85.3 fL (80-100); MEAN CORPUSCULAR HEMOGLOBIN 28.6 pg (25-34); MEAN CORPUSCULAR HGB CONC 33.6 g/dl (32-36); MEAN PLATELET VOLUME 9.5 fL (7.4-10.4); MONO % 11.6 %; NEUT % 79.3 %; NEUT ABS # 8.85 K/uL (1.4-6.5); PLATELET COUNT 421 K/uL (130-400); RED CELL DISTRIBUTION WIDTH CV 14.8 % (11.5-14.5); RED CELL DISTRIBUTION WIDTH SD 46.5 fL (36.4-46.3); WHITE BLOOD COUNT 11.16 K/uL (4.8-10.8)
[2018-01-01] MEDS: GUAIFENESIN 600 MG TABCR PO SCH ×2 (08:38→21:08)
[2018-01-01] MEDS: FINASTERIDE 5 MG TAB PO SCH (08:38)
[2018-01-01] MEDS: BOOST GLUCOSE CONTROL PO SCH ×2 (08:38→21:04)
[2018-01-01] MEDS: LACTOBACILLUS ACIDOPHILUS (FLORANEX) TAB PO SCH ×3 (08:38→17:33)
[2018-01-01] MEDS: METOPROLOL SUCC 50MG EXT REL TAB PO SCH (08:38)
[2018-01-01] MEDS: INSULIN ASPART 100 UNITS/ML 3 ML PEN SC SCH ×4 (08:42→21:10)
[2018-01-01] MEDS: CLOPIDOGREL BISULFATE 75 MG TAB PO SCH (08:56)
[2018-01-01] MEDS: ASPIRIN 81 MG ECTAB PO SCH (08:56)
[2018-01-01] MEDS ORDERED: OXYCODONE/ACETAMINOPHEN 5-325 TAB PO STA (11:03)
--- NOTE | 2018-01-01 16:41 | Progress Note ---
Subjective Date of Service: Jan 01, 2018. Subjective Pt evaluation today including: conversation w/ patient, conversation w/ family , physical exam, chart review, lab review, review of studies Pain: Pain on the right side of his chest PO Intake: P.o. intake is not adequate Voiding: no voiding problems Family at bedside, patient stated that he improved significantly since admission. Problem List Medical Problems: (1) Acute bronchitis Status: Acute (2) GHANSHYAM (acute kidney injury) Status: Acute (3) Enlarged prostate Status: Chronic (4) Exertional dyspnea Status: Acute (5) Hx of cancer of lung Status: Acute (6) Hyperkalemia Status: Acute (7) Leukocytosis Status: Acute (8) Leukocytosis Status: Acute (9) Pneumonia Status: Acute (10) Sepsis Status: Acute (11) Stabbing chest pain Status: Acute (12) Substernal chest pain Status: Acute Review of Systems Review of system Constitutional: No fever / no chills / no sweats /positive for generalized weakness and fatigue Eyes: no blurring of vision / no eye pain / no discharge / no redness ENT: no hearing loss / no epistaxis /no swallowing problems Respiratory: Continues to have cough / no wheezing /also have SOB but improved/ no hemoptysis Cardiovascular: no Chest pain / no lower extremity edema / no palpitation Abdomen: no pain / no nausea / no vomiting / no constipation Musculoskeletal: no joint pain / no muscle pain / no joint swelling, musculoskeletal right-sided chest pain Genitourinary: no dysuria / no incontinence / no urinary retention Neurologic: no focal weakness / no numbness/tingling / no ataxia Psychiatric: no depression symptoms / no anxiety / no insomnia Endocrine: no excessive thirst / no excessive urination Hematologic: no abnormal bleeding / no bruising / no LN swelling Skin: No rash / no pallor Objective Vital Signs Date Time Temp Pulse Resp B/P (MAP) Pulse Ox O2 Delivery O2 Flow Rate FiO2 01/01/18 16:04 36.3 75 20 132/80 (97) 93 Nasal Cannula 4.0 01/01/18 14:13 71 16 96 Nasal Cannula 5.0 01/01/18 11:35 36.3 102 16 121/79 (93) 94 Nasal Cannula 4.0 01/01/18 07:55 Nasal Cannula 4.0 01/01/18 07:35 70 16 94 Nasal Cannula 4.0 01/01/18 07:30 36.4 91 18 104/63 (77) 96 Nasal Cannula 4.0 01/01/18 01:58 107 16 95 Nasal Cannula 5.0 01/01/18 00:13 36.8 100 20 139/81 (100) 93 4.0 01/01/18 00:00 Nasal Cannula 4.0 Humidified Oxygen 12/31/17 20:00 Nasal Cannula 4.0 Humidified Oxygen 12/31/17 19:31 113 20 96 Nasal Cannula 5.0 Physical Exam Comments: Physical examination General patient appears to be comfortable, not in acute distress HEENT: Atraumatic , normocephalic /no jaundice /no pallor /anicteric /no dry mucous membrane /normal external ear inspection Neck: Supple /no swelling /central trach Heart: S1/S2 normal/regular rate and rhythm/no gallop /no rub /no murmur Lungs: Decreased air entry bilaterally/decreased chest wall expansion/scattered rhonchi/no rales/positive for wheezing/no use of accessory muscles of respiration Abdomen: Soft/nontender/no guarding/no rebound/no organomegaly/no pulsatile mass Musculoskeletal: No swelling/no edema/no tenderness/normal range of motion Neuro exam: Awake alert oriented 3/cranial nerves II through XII appear to be intact/sensation intact/moves all extremities/no abnormal movements Psychiatric evaluation: No depressed mood/normal affect Skin: No rash on exposed skin area/no erythema Extremity: Normal pulse/no pitting edema/no clubbing or cyanosis Endocrine/lymphatic: No obvious lymphadenopathy /no lymphedema Laboratory Results Last 24 Hours Test 12/31/17 20:16 01/01/18 06:41 01/01/18 07:54 01/01/18 11:52 Bedside Glucose 276 mg/dl 198 mg/dl 319 mg/dl White Blood Count 11.16 K/uL Red Blood Count 3.53 M/uL Hemoglobin 10.1 g/dL Hematocrit 30.1 % Mean Corpuscular Volume 85.3 fL Mean Corpuscular Hemoglobin 28.6 pg Mean Corpuscular Hemoglobin Concent 33.6 g/dl Platelet Count 421 K/uL Mean Platelet Volume 9.5 fL Neutrophils (%) (Auto) 79.3 % Lymphocytes (%) (Auto) 5.3 % Monocytes (%) (Auto) 11.6 % Eosinophils (%) (Auto) 2.7 % Basophils (%) (Auto) 0.1 % Neutrophils # (Auto) 8.85 K/uL Lymphocytes # (Auto) 0.59 K/uL Monocytes # (Auto) 1.30 K/uL Eosinophils # (Auto) 0.30 K/uL Basophils # (Auto) 0.01 K/uL RDW Standard Deviation 46.5 fL RDW Coefficient of Variation 14.8 % Immature Granulocyte % (Auto) 1.0 % Immature Granulocyte # (Auto) 0.11 K/uL Assessment and Plan 72-year-old man with past medical history of CAD, dyslipidemia, chronic diastolic congestive heart failure, peripheral vascular disease who was 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 Eczema/asthma Diabetes mellitus type 2 Chronic kidney disease stage III BPH Plan Admitted to telemetry Oxygen supplement as needed Rapid flu and urine Legionella were negative Sputum cultures blood cultures are all negative Initially started on vancomycin/Zosyn MRSA nostril were negative, Vanco was stopped White blood cell count is improving significantly from 30,000-11,000 Patient continues to have right-sided chest pain most likely secondary to pleurisy CTA reviewed, repeat CT scan chest showed worsening infiltrate, likely sequence of hydration as he was very dehydrated on admission, clinically and laboratory he is significantly improved. Physical therapy occupational therapy Bronchodilators Avoid steroids giving his history of recent cancer Continue finasteride DVT prophylaxis Continued [facility] stay due to: other Discharge planning: uncertain
[2018-01-01] MEDS: SIMVASTATIN 80 MG TAB PO SCH (21:08)
[2018-01-01] MEDS: OXYCODONE/ACETAMINOPHEN 5-325 TAB PO PRN (21:19)
[2018-01-02] VITALS (9 sets, daily range): BP systolic 115–132; BP diastolic 58–76; PULSE 70–104; TEMP 36.3–36.7; O2SAT 92–96
[2018-01-02] MEDS: LEVALBUTEROL 1.25MG/3ML NEB INH SCH ×4 (01:42→20:04)
[2018-01-02] MEDS: OXYCODONE/ACETAMINOPHEN 5-325 TAB PO PRN ×3 (05:09→20:43)
[2018-01-02] MEDS: PIPERACILL/TAZOBAC IV 3.375 GM in DEXTROSE 5% 100ML 100 ML IV SCH ×3 (05:37→21:48)
[2018-01-02 07:24] LABS: BASO % 0.2 %; BASO ABS # 0.02 K/uL (0-0.2); EOS % 5.4 %; EOS ABS # 0.47 K/uL (0-0.5); HEMATOCRIT 27.2 % (42-52); HEMOGLOBIN 9.1 g/dL (14.0-18.0); IG# 0.18 K/uL (0.00-0.02); LYMPH % 4.9 %; LYMPH ABS # 0.43 K/uL (1.2-3.4); MEAN CELL VOLUME 85.5 fL (80-100); MEAN CORPUSCULAR HEMOGLOBIN 28.6 pg (25-34); MEAN CORPUSCULAR HGB CONC 33.5 g/dl (32-36); MEAN PLATELET VOLUME 9.5 fL (7.4-10.4); MONO % 11.7 %; MONO ABS # 1.02 K/uL (0.11-0.59); NEUT % 75.7 %; NEUT ABS # 6.62 K/uL (1.4-6.5); PLATELET COUNT 389 K/uL (130-400); RED CELL DISTRIBUTION WIDTH SD 47.4 fL (36.4-46.3); WHITE BLOOD COUNT 8.74 K/uL (4.8-10.8)
[2018-01-02 07:51] LABS: ALBUMIN 1.8 gm/dl (3.4-5.0); CALCIUM 8.7 mg/dl (8.5-10.1); CREATININE 1.04 mg/dl (0.60-1.40); POTASSIUM 3.6 mmol/L (3.5-5.1); TOTAL PROTEIN 6.4 gm/dl (6.4-8.2)
[2018-01-02] MEDS: ASPIRIN 81 MG ECTAB PO SCH (08:32)
[2018-01-02] MEDS: LACTOBACILLUS ACIDOPHILUS (FLORANEX) TAB PO SCH ×3 (08:32→17:17)
[2018-01-02] MEDS: METOPROLOL SUCC 50MG EXT REL TAB PO SCH (08:32)
[2018-01-02] MEDS: FINASTERIDE 5 MG TAB PO SCH (08:32)
[2018-01-02] MEDS: CLOPIDOGREL BISULFATE 75 MG TAB PO SCH (08:32)
[2018-01-02] MEDS: LIDODERM (LIDOCAINE) PATCH 5% TD SCH (08:33)
[2018-01-02] MEDS: GUAIFENESIN 600 MG TABCR PO SCH ×2 (08:33→20:42)
[2018-01-02] MEDS: BOOST GLUCOSE CONTROL PO SCH ×2 (08:33→20:41)
[2018-01-02] MEDS: INSULIN ASPART 100 UNITS/ML 3 ML PEN SC SCH ×4 (08:39→20:47)
[2018-01-02] MEDS: INSULIN GLARGINE SOLOSTAR 100 UNITS/ML 3 ML PEN SQ SCH (13:09)
--- NOTE | 2018-01-02 16:05 | Progress Note ---
Subjective Date of Service: Jan 02, 2018. Subjective Pt evaluation today including: conversation w/ patient, physical exam, chart review, lab review, review of inpatient medication list Pain: Denies any new pain PO Intake: Adequate Voiding: no voiding problems Does have some pain on the right side of the chest, seems to be pleuritic, pain control is adequate Problem List Medical Problems: (1) Acute bronchitis Status: Acute (2) GHANSHYAM (acute kidney injury) Status: Acute (3) Enlarged prostate Status: Chronic (4) Exertional dyspnea Status: Acute (5) Hx of cancer of lung Status: Acute (6) Hyperkalemia Status: Acute (7) Leukocytosis Status: Acute (8) Leukocytosis Status: Acute (9) Pneumonia Status: Acute (10) Sepsis Status: Acute (11) Stabbing chest pain Status: Acute (12) Substernal chest pain Status: Acute Review of Systems Review of system Constitutional: No fever / no chills / no sweats /positive for generalized weakness and fatigue Eyes: no blurring of vision / no eye pain / no discharge / no redness ENT: no hearing loss / no epistaxis /no swallowing problems Respiratory: Continues to have cough / no wheezing /also have SOB but improved/ no hemoptysis Cardiovascular: no Chest pain / no lower extremity edema / no palpitation Abdomen: no pain / no nausea / no vomiting / no constipation Musculoskeletal: no joint pain / no muscle pain / no joint swelling, musculoskeletal right-sided chest pain Genitourinary: no dysuria / no incontinence / no urinary retention Neurologic: no focal weakness / no numbness/tingling / no ataxia Psychiatric: no depression symptoms / no anxiety / no insomnia Endocrine: no excessive thirst / no excessive urination Hematologic: no abnormal bleeding / no bruising / no LN swelling Skin: No rash / no pallor Objective Vital Signs Date Time Temp Pulse Resp B/P (MAP) Pulse Ox O2 Delivery O2 Flow Rate FiO2 01/02/18 15:05 36.3 91 18 117/70 (86) 92 Nasal Cannula 3.0 01/02/18 13:59 85 14 96 Nasal Cannula 4.0 01/02/18 08:00 Nasal Cannula 4.0 01/02/18 07:40 36.7 94 18 115/76 (89) 92 Nasal Cannula 4.0 01/02/18 07:28 98 14 93 Nasal Cannula 4.0 01/02/18 04:35 36.7 104 22 128/75 (92) 93 Nasal Cannula 4.0 01/02/18 01:42 72 16 94 Nasal Cannula 4.0 01/02/18 00:48 36.6 70 20 123/58 (79) 94 Nasal Cannula 4.0 01/01/18 23:45 Nasal Cannula 4.0 Humidified Air 01/01/18 19:42 78 16 92 Nasal Cannula 4.0 01/01/18 17:44 92 Nasal Cannula 4.0 01/01/18 16:20 Nasal Cannula 4.0 01/01/18 16:04 36.3 75 20 132/80 (97) 93 Nasal Cannula 4.0 Physical Exam Comments: Physical examination General patient appears to be comfortable, not in acute distress HEENT: Atraumatic , normocephalic /no jaundice /no pallor /anicteric /no dry mucous membrane /normal external ear inspection Neck: Supple /no swelling /central trach Heart: S1/S2 normal/regular rate and rhythm/no gallop /no rub /no murmur Lungs: Decreased air entry bilaterally/decreased chest wall expansion/scattered rhonchi/no rales/positive for wheezing/no use of accessory muscles of respiration Abdomen: Soft/nontender/no guarding/no rebound/no organomegaly/no pulsatile mass Musculoskeletal: No swelling/no edema/no tenderness/normal range of motion Neuro exam: Awake alert oriented 3/cranial nerves II through XII appear to be intact/sensation intact/moves all extremities/no abnormal movements Psychiatric evaluation: No depressed mood/normal affect Skin: No rash on exposed skin area/no erythema Extremity: Normal pulse/no pitting edema/no clubbing or cyanosis Endocrine/lymphatic: No obvious lymphadenopathy /no lymphedema Laboratory Results Last 24 Hours Test 01/01/18 16:31 01/01/18 19:39 01/02/18 06:57 01/02/18 07:46 Bedside Glucose 266 mg/dl 242 mg/dl 185 mg/dl White Blood Count 8.74 K/uL Red Blood Count 3.18 M/uL Hemoglobin 9.1 g/dL Hematocrit 27.2 % Mean Corpuscular Volume 85.5 fL Mean Corpuscular Hemoglobin 28.6 pg Mean Corpuscular Hemoglobin Concent 33.5 g/dl Platelet Count 389 K/uL Mean Platelet Volume 9.5 fL Neutrophils (%) (Auto) 75.7 % Lymphocytes (%) (Auto) 4.9 % Monocytes (%) (Auto) 11.7 % Eosinophils (%) (Auto) 5.4 % Basophils (%) (Auto) 0.2 % Neutrophils # (Auto) 6.62 K/uL Lymphocytes # (Auto) 0.43 K/uL Monocytes # (Auto) 1.02 K/uL Eosinophils # (Auto) 0.47 K/uL Basophils # (Auto) 0.02 K/uL RDW Standard Deviation 47.4 fL RDW Coefficient of Variation 15.0 % Immature Granulocyte % (Auto) 2.1 % Immature Granulocyte # (Auto) 0.18 K/uL Sodium Level 136 mmol/L Potassium Level 3.6 mmol/L Chloride Level 101 mmol/L Carbon Dioxide Level 28 mmol/L Anion Gap 7.0 mmol/L Blood Urea Nitrogen 28 mg/dl Creatinine 1.04 mg/dl Est Creatinine Clear Calc Drug Dose 55.7 ml/min Estimated GFR () 81.6 Estimated GFR (Non- 70.4 BUN/Creatinine Ratio 26.6 Random Glucose 170 mg/dl Calcium Level 8.7 mg/dl Magnesium Level 2.0 mg/dl Total Bilirubin 0.6 mg/dl Aspartate Amino Transf (AST/SGOT) 14 U/L Alanine Aminotransferase (ALT/SGPT) 39 U/L Alkaline Phosphatase 135 U/L Total Protein 6.4 gm/dl Albumin 1.8 gm/dl Globulin 4.6 gm/dl Albumin/Globulin Ratio 0.4 Test 01/02/18 11:40 Bedside Glucose 348 mg/dl Assessment and Plan 72-year-old man with past medical history of CAD, dyslipidemia, chronic diastolic congestive heart failure, peripheral vascular disease who was 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 Eczema/asthma Diabetes mellitus type 2 Chronic kidney disease stage III BPH Plan Continue telemetry Oxygen supplement, can be titrated off prior to discharge White blood cell count today is normal Rapid flu and urine Legionella were negative Sputum cultures blood cultures are all negative Initially started on vancomycin/Zosyn MRSA nostril were negative, Vanco was stopped White blood cell count is improving significantly from 30,000 to -<10,000 Patient continues to have right-sided chest pain most likely secondary to pleurisy CTA reviewed, repeat CT scan chest showed worsening infiltrate, likely sequence of hydration as he was very dehydrated on admission, clinically and laboratory he is significantly improved. Physical therapy occupational therapy Bronchodilators Avoid steroids giving his history of recent cancer Continue finasteride DVT prophylaxis Continued [facility] stay due to: other Discharge planning: uncertain
[2018-01-02] MEDS: SIMVASTATIN 80 MG TAB PO SCH (20:45)
[2018-01-03] VITALS (9 sets, daily range): BP systolic 105–138; BP diastolic 66–74; PULSE 73–103; TEMP 36.5–36.7; O2SAT 92–98; BMI 21.1
[2018-01-03] MEDS: LEVALBUTEROL 1.25MG/3ML NEB INH SCH ×4 (01:57→19:43)
[2018-01-03] MEDS: PIPERACILL/TAZOBAC IV 3.375 GM in DEXTROSE 5% 100ML 100 ML IV SCH ×3 (05:54→22:12)
--- NOTE | 2018-01-03 07:28 | Progress Note ---
Subjective Date of Service: Jan 03, 2018. Subjective pt continues to feel better but is not at his baseline. he still has a cough, productive and is dyspneic on exertion Problem List Medical Problems: (1) Acute bronchitis Status: Acute (2) GHANSHYAM (acute kidney injury) Status: Acute (3) Enlarged prostate Status: Chronic (4) Exertional dyspnea Status: Acute (5) Hx of cancer of lung Status: Acute (6) Hyperkalemia Status: Acute (7) Leukocytosis Status: Acute (8) Leukocytosis Status: Acute (9) Pneumonia Status: Acute (10) Sepsis Status: Acute (11) Stabbing chest pain Status: Acute (12) Substernal chest pain Status: Acute Review of Systems Constitutional: + weakness, + fatigue, No fever, No chills Respiratory: + cough, + shortness of breath, + dyspnea on exertion, No wheezing Cardiac: No PND, No edema Abdomen: No pain, No nausea, No vomiting, No diarrhea Musculoskeletal: No joint pain, No muscle pain Objective Vital Signs Date Time Temp Pulse Resp B/P (MAP) Pulse Ox O2 Delivery O2 Flow Rate FiO2 01/03/18 01:57 88 14 93 Nasal Cannula 3.0 01/02/18 23:30 Nasal Cannula 3.0 01/02/18 23:19 36.6 91 16 132/76 (94) 93 Nasal Cannula 3.0 01/02/18 20:05 88 14 92 Nasal Cannula 3.0 01/02/18 16:20 Nasal Cannula 3.0 01/02/18 15:05 36.3 91 18 117/70 (86) 92 Nasal Cannula 3.0 01/02/18 13:59 85 14 96 Nasal Cannula 4.0 01/02/18 08:00 Nasal Cannula 4.0 01/02/18 07:40 36.7 94 18 115/76 (89) 92 Nasal Cannula 4.0 01/02/18 07:28 98 14 93 Nasal Cannula 4.0 Physical Exam General Appearance: WD/WN, + mild distress Eyes: normal inspection, sclerae normal Neck: supple, no JVD Respiratory/Chest: chest non-tender, + decreased breath sounds, + accessory muscle use, + rhonchi Cardiovascular: regular rate, rhythm, no murmur Abdomen: normal bowel sounds, non tender, soft Extremities: no pedal edema, no calf tenderness Neurologic/Psychiatric: alert, oriented x 3 Laboratory Results Last 24 Hours Test 01/02/18 07:46 01/02/18 11:40 01/02/18 17:12 01/02/18 20:03 Bedside Glucose 185 mg/dl 348 mg/dl 105 mg/dl 225 mg/dl Test 01/03/18 04:44 Assessment and Plan 72-year-old man with past medical history of CAD, dyslipidemia, chronic diastolic congestive heart failure, peripheral vascular disease who was 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 sepsis present on admission secondary to pneumonia with Acute hypoxic respiratory failure improving but still needs oxygen Healthcare associated multifocal pneumonia, Rapid flu and urine Legionella were negative CT scan chest showed infiltrate, Initially started on vancomycin/Zosyn MRSA nostril were negative, Vanco was stopped. 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
[2018-01-03 07:45] LABS: BASO % 0.3 %; BASO ABS # 0.03 K/uL (0-0.2); EOS ABS # 0.52 K/uL (0-0.5); HEMATOCRIT 29.3 % (42-52); HEMOGLOBIN 9.7 g/dL (14.0-18.0); IG# 0.27 K/uL (0.00-0.02); LYMPH % 8.1 %; LYMPH ABS # 0.85 K/uL (1.2-3.4); MEAN CELL VOLUME 85.9 fL (80-100); MEAN CORPUSCULAR HEMOGLOBIN 28.4 pg (25-34); MEAN CORPUSCULAR HGB CONC 33.1 g/dl (32-36); MEAN PLATELET VOLUME 9.4 fL (7.4-10.4); MONO ABS # 0.83 K/uL (0.11-0.59); NEUT ABS # 7.94 K/uL (1.4-6.5); PLATELET COUNT 499 K/uL (130-400); RED CELL DISTRIBUTION WIDTH CV 15.3 % (11.5-14.5); WHITE BLOOD COUNT 10.44 K/uL (4.8-10.8)
[2018-01-03 08:18] LABS: CALCIUM 8.7 mg/dl (8.5-10.1); CREATININE 1.09 mg/dl (0.60-1.40); POTASSIUM 3.6 mmol/L (3.5-5.1)
[2018-01-03] MEDS: ASPIRIN 81 MG ECTAB PO SCH (09:03)
[2018-01-03] MEDS: CLOPIDOGREL BISULFATE 75 MG TAB PO SCH (09:03)
[2018-01-03] MEDS: BOOST GLUCOSE CONTROL PO SCH ×2 (09:03→21:03)
[2018-01-03] MEDS: FINASTERIDE 5 MG TAB PO SCH (09:03)
[2018-01-03] MEDS: LACTOBACILLUS ACIDOPHILUS (FLORANEX) TAB PO SCH ×3 (09:03→17:38)
[2018-01-03] MEDS: LIDODERM (LIDOCAINE) PATCH 5% TD SCH (09:03)
[2018-01-03] MEDS: METOPROLOL SUCC 50MG EXT REL TAB PO SCH (09:03)
[2018-01-03] MEDS: OXYCODONE/ACETAMINOPHEN 5-325 TAB PO PRN ×3 (09:04→22:14)
[2018-01-03] MEDS: GUAIFENESIN 600 MG TABCR PO SCH ×2 (09:04→21:05)
[2018-01-03] MEDS: INSULIN ASPART 100 UNITS/ML 3 ML PEN SC SCH ×4 (09:12→21:09)
[2018-01-03] MEDS: INSULIN GLARGINE SOLOSTAR 100 UNITS/ML 3 ML PEN SQ SCH (09:13)
[2018-01-03] MEDS: LEVALBUTEROL 1.25MG/3ML NEB INH PRN (10:42)
[2018-01-03] MEDS: SIMVASTATIN 80 MG TAB PO SCH (21:04)
[2018-01-04] VITALS (7 sets, daily range): BP systolic 104–124; BP diastolic 62–72; PULSE 68–89; TEMP 36.4–36.6; O2SAT 82–98; Ht 172.7 cm; Wt 61.6 kg
[2018-01-04] MEDS: LEVALBUTEROL 1.25MG/3ML NEB INH SCH ×4 (01:42→19:19)
[2018-01-04] MEDS: OXYCODONE/ACETAMINOPHEN 5-325 TAB PO PRN ×4 (04:18→22:15)
[2018-01-04] MEDS: PIPERACILL/TAZOBAC IV 3.375 GM in DEXTROSE 5% 100ML 100 ML IV SCH ×3 (05:29→22:15)
[2018-01-04] MEDS: LIDODERM (LIDOCAINE) PATCH 5% TD SCH (08:00)
[2018-01-04] MEDS: METOPROLOL SUCC 50MG EXT REL TAB PO SCH (08:57)
[2018-01-04] MEDS: LACTOBACILLUS ACIDOPHILUS (FLORANEX) TAB PO SCH ×3 (08:57→17:18)
[2018-01-04] MEDS: FINASTERIDE 5 MG TAB PO SCH (08:58)
[2018-01-04] MEDS: GUAIFENESIN 600 MG TABCR PO SCH ×2 (08:58→21:15)
[2018-01-04] MEDS: ASPIRIN 81 MG ECTAB PO SCH (08:58)
[2018-01-04] MEDS: CLOPIDOGREL BISULFATE 75 MG TAB PO SCH (08:58)
[2018-01-04] MEDS: INSULIN ASPART 100 UNITS/ML 3 ML PEN SC SCH ×4 (09:04→21:18)
[2018-01-04] MEDS: BOOST GLUCOSE CONTROL PO SCH ×2 (09:05→21:13)
[2018-01-04] MEDS: INSULIN GLARGINE SOLOSTAR 100 UNITS/ML 3 ML PEN SQ SCH (09:05)
--- NOTE | 2018-01-04 18:59 | Progress Note ---
Subjective Date of Service: Jan 04, 2018. Subjective this pt is improving, has still some sob with exertion but overall is much better Problem List Medical Problems: (1) Acute bronchitis Status: Acute (2) GHANSHYAM (acute kidney injury) Status: Acute (3) Enlarged prostate Status: Chronic (4) Exertional dyspnea Status: Acute (5) Hx of cancer of lung Status: Acute (6) Hyperkalemia Status: Acute (7) Leukocytosis Status: Acute (8) Leukocytosis Status: Acute (9) Pneumonia Status: Acute (10) Sepsis Status: Acute (11) Stabbing chest pain Status: Acute (12) Substernal chest pain Status: Acute Review of Systems Constitutional: + weakness, No fever, No chills Respiratory: + cough, + shortness of breath, + dyspnea on exertion Cardiac: No chest pain, No edema Abdomen: No pain, No nausea, No vomiting, No diarrhea Neurologic: + weakness, No memory loss Psychiatric: No depression symptoms, No anhedonism Objective Vital Signs Date Time Temp Pulse Resp B/P (MAP) Pulse Ox O2 Delivery O2 Flow Rate FiO2 01/04/18 16:20 Nasal Cannula 1.5 01/04/18 15:01 36.6 68 18 107/62 (77) 94 Nasal Cannula 2.0 01/04/18 14:27 71 16 97 Nasal Cannula 3.0 01/04/18 11:47 36.6 72 18 104/64 (77) 98 Nasal Cannula 3.0 01/04/18 08:00 97 Nasal Cannula 4.0 01/04/18 07:58 36.4 89 18 124/72 (89) 97 Nasal Cannula 4.0 01/04/18 07:28 74 15 97 Nasal Cannula 4.0 01/04/18 01:42 72 14 82 Nasal Cannula 4.0 01/03/18 23:37 36.7 73 18 105/66 (79) 97 Nasal Cannula 4.0 01/03/18 23:15 Nasal Cannula 2.0 Humidified Oxygen 01/03/18 19:43 88 14 98 Nasal Cannula 2.0 Physical Exam General Appearance: WD/WN, + mild distress Eyes: normal inspection, sclerae normal Neck: supple, no JVD Respiratory/Chest: + decreased breath sounds, + accessory muscle use Cardiovascular: regular rate, rhythm, no murmur Extremities: no pedal edema, no calf tenderness Neurologic/Psychiatric: prescription clerk II-XII nml as tested, alert, oriented x 3 Laboratory Results Last 24 Hours Test 01/03/18 20:25 01/04/18 07:50 01/04/18 11:57 01/04/18 16:58 Bedside Glucose 180 mg/dl 138 mg/dl 329 mg/dl 86 mg/dl Assessment and Plan 72-year-old man with past medical history of CAD, dyslipidemia, chronic diastolic congestive heart failure, peripheral vascular disease who was 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 sepsis present on admission secondary to pneumonia with Acute hypoxic respiratory failure. will check 2 step prior to discharge Healthcare associated multifocal pneumonia, Rapid flu and urine Legionella were negative CT scan chest showed infiltrate, Initially started on vancomycin/Zosyn MRSA nostril were negative, Vanco was stopped. 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 stay due to: other Discharge planning: uncertain
[2018-01-04] MEDS: SIMVASTATIN 80 MG TAB PO SCH (21:15)
[2018-01-05] VITALS: BP 113/65; PULSE 68; TEMP 36.8; O2SAT 94
[2018-01-05 01:35] VITALS: PULSE 84; O2SAT 98
[2018-01-05] MEDS: LEVALBUTEROL 1.25MG/3ML NEB INH SCH ×2 (01:35→07:14)
[2018-01-05] MEDS: PIPERACILL/TAZOBAC IV 3.375 GM in DEXTROSE 5% 100ML 100 ML IV SCH (06:21)
[2018-01-05 07:14] VITALS: PULSE 86; O2SAT 93
[2018-01-05 07:34] VITALS: BP 114/73; PULSE 85; TEMP 36.6; O2SAT 91
[2018-01-05] MEDS: CLOPIDOGREL BISULFATE 75 MG TAB PO SCH (08:17)
[2018-01-05] MEDS: FINASTERIDE 5 MG TAB PO SCH (08:17)
[2018-01-05] MEDS: GUAIFENESIN 600 MG TABCR PO SCH (08:17)
[2018-01-05] MEDS: METOPROLOL SUCC 50MG EXT REL TAB PO SCH (08:17)
[2018-01-05] MEDS: OXYCODONE/ACETAMINOPHEN 5-325 TAB PO PRN (08:17)
[2018-01-05] MEDS: ASPIRIN 81 MG ECTAB PO SCH (08:17)
[2018-01-05] MEDS: LACTOBACILLUS ACIDOPHILUS (FLORANEX) TAB PO SCH ×2 (08:17→12:19)
[2018-01-05] MEDS: LIDODERM (LIDOCAINE) PATCH 5% TD SCH (08:22)
[2018-01-05] MEDS: INSULIN ASPART 100 UNITS/ML 3 ML PEN SC SCH ×2 (08:26→12:26)
[2018-01-05] MEDS: INSULIN GLARGINE SOLOSTAR 100 UNITS/ML 3 ML PEN SQ SCH (08:27)
[2018-01-05] MEDS: BOOST GLUCOSE CONTROL PO SCH (08:30)
[2018-01-05] MEDS ORDERED: GFNSR600 PO (09:08)
[2018-01-05] MEDS ORDERED: AMOX875T PO (09:08)
[2018-01-05] MEDS: IPRATROPIUM BROMIDE/ALBUTEROL respimat INH INH SCH ×2 (10:15→12:20)
--- NOTE | 2018-01-05 11:10 | Discharge Summary ---
Discharge Summary Date of Service Jan 05, 2018. Discharge Summary Admission Date: Dec 26, 2017 at 20:44 Discharge Date: Jan 05, 2018 Discharge Disposition: Home Principal Diagnosis: pneumonia, copd, daniel caner Problems/Secondary Diagnoses: (1) Enlarged prostate Status: Chronic Immunizations: Have You Had Influenza Vaccine: Yes Influenza Vaccine Date: Jul 29, 2015 History of Tetanus Vaccine?: Unknown Tetanus Immunization Date: Nov 22, 2002 History of Pneumococcal: Unknown History of Hepatitis B Vaccine: Unknown Medication Reconciliation New Medications: Amoxicillin & Pot Clavulanate (Augmentin 875-125 mg) 1 Tab Tab 875 MG PO BID, #14 TAB Home O2 Therapy (Oxygen) Gas 2 LITERS NA UD, #1 UNIT pt needs 2 L nc with exertion pt needs home and portable unit J44.0 Pt also has pneumonia Guaifenesin Ext Rel (Mucinex Ext Rel) 600 Mg Tabcr 1200 MG PO Q12, #20 DOSE Ipratropium-Albuterol (Combivent Respimat) 1 Aer Aer 1 PUFFS INH QID, #1 INHA Continued Medications: Aspirin (Aspirin Ec) 81 Mg Tab 81 MG PO DAILY Clopidogrel (Plavix) 75 Mg Tab 75 MG PO DAILY, TAB Finasteride (Proscar) 5 Mg Tab 5 MG PO QAM, TAB Glipizide (Glipizide Er) 2.5 Mg Tab 2.5 MG PO QAM, TAB 3 Refills Metformin Hcl (Glucophage) 500 Mg Tab 1000 MG PO BID, TAB Metoprolol Succinate (Toprol Xl) 50 Mg Tabcr 50 MG PO QAM, TAB Multiple Vitamins W/ Minerals (Centrum Silver Adult 50+) 1 Tab Tab 1 TAB PO QAM Simvastatin (Zocor) 80 Mg Tab 80 MG PO HS, TAB Discontinued Medications: Lisinopril (Zestril) 5 Mg Tab 5 MG PO DAILY, TAB Discharge Exam Review of Systems: Constitutional: No fever, No chills, No sweats Respiratory: + dyspnea on exertion (requires home oxygen with exertion), No sputum, No shortness of breath Cardiovascular: No chest pain, No orthopnea, No edema, No claudication Physical Exam: General Appearance: WD/WN, no apparent distress Neck: supple, no JVD Respiratory/Chest: chest non-tender, lungs clear (has typical prolongued respiratory sounds) Cardiovascular: regular rate, rhythm, no murmur Hospital Course 72-year-old man with past medical history of CAD, dyslipidemia, chronic diastolic congestive heart failure, peripheral vascular disease who was 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 sepsis present on admission secondary to pneumonia with Acute hypoxic respiratory failure. will check 2 step prior to discharge Healthcare associated multifocal pneumonia, Rapid flu and urine Legionella were negative CT scan chest showed infiltrate, Initially started on vancomycin/Zosyn MRSA nostril were negative, Vanco was stopped. 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 Discharge Instructions Please refer to the electronic Patient Visit Report (Discharge Instructions) for additional information. Additional Copies To Jeffery Ash MD
[2018-01-05] MEDS ORDERED: OXGN (11:18)
[2018-01-05] MEDS ORDERED: IPRA1AER2 INH (11:18)
--- NOTE | 2018-01-05 11:19 | Discharge Instructions ---
Discharge Instructions Date of Service Jan 05, 2018. Admission Reason for Admission: Pneumonia,Tachycardia Discharge Discharge Diagnosis / Problem: pneumonia Discharge Goals Goal(s): Diagnostic testing, Therapeutic intervention Activity Recommendations Activity Limitations: as noted below Lifting Limitations: gradually increase as tolerated . Current Hospital Diet Patient's current hospital diet: AHA Diet (Heart Healthy), Diabetes Type 2 Diet Discharge Diet Recommended Diet: Regular Diet Pending Studies Studies pending at discharge: no Laboratory Results Hemoglobin A1c Test 12/27/17 04:52 Range/Units Estimated Average Glucose 148 mg/dl Hemoglobin A1c 6.8 H 4.5-5.6 % Medical Emergencies . Who to Call and When: Please contact Dr Ash for the timing of your next cat scan and you appointment If you have focused rib or lung pain, try over the counter lidocaine pain patches that are at your local pharmacy, some brands are salonpas, or aspercreme finish all of you antibiotics use a probiotic while on antibiotic Medical Emergencies: If at any time you feel your situation is an emergency, please call 911 immediately. . Non-Emergent Contact Non-Emergency issues call your: Primary Care Provider, Oncologist Call Non-Emergent contact if: temperature is above 101, your pain is unusual for you . . "Provider Documentation" section prepared by Chilo Maddox. .
[2018-01-05 13:25] VITALS: BP 114/73; PULSE 85; TEMP 36.6; O2SAT 91
--- NOTE | 2018-01-05 18:12 | Discharge Summary ---
Discharge Summary Date of Service Jan 05, 2018. Discharge Summary Admission Date: Dec 26, 2017 at 20:44 Discharge Date: Jan 05, 2018 Discharge Disposition: Home Principal Diagnosis: pneumonia, history of lung cancer Problems/Secondary Diagnoses: (1) Enlarged prostate Status: Chronic Immunizations: Have You Had Influenza Vaccine: Yes Influenza Vaccine Date: Jul 29, 2015 History of Tetanus Vaccine?: Unknown Tetanus Immunization Date: Nov 22, 2002 History of Pneumococcal: Unknown History of Hepatitis B Vaccine: Unknown Medication Reconciliation New Medications: Amoxicillin & Pot Clavulanate (Augmentin 875-125 mg) 1 Tab Tab 875 MG PO BID, #14 TAB Home O2 Therapy (Oxygen) Gas 2 LITERS NA UD, #1 UNIT pt needs 2 L nc with exertion pt needs home and portable unit J44.0 Pt also has pneumonia Guaifenesin Ext Rel (Mucinex Ext Rel) 600 Mg Tabcr 1200 MG PO Q12, #20 DOSE Ipratropium-Albuterol (Combivent Respimat) 1 Aer Aer 1 PUFFS INH QID, #1 INHA Continued Medications: Aspirin (Aspirin Ec) 81 Mg Tab 81 MG PO DAILY Clopidogrel (Plavix) 75 Mg Tab 75 MG PO DAILY, TAB Finasteride (Proscar) 5 Mg Tab 5 MG PO QAM, TAB Glipizide (Glipizide Er) 2.5 Mg Tab 2.5 MG PO QAM, TAB 3 Refills Metformin Hcl (Glucophage) 500 Mg Tab 1000 MG PO BID, TAB Metoprolol Succinate (Toprol Xl) 50 Mg Tabcr 50 MG PO QAM, TAB Multiple Vitamins W/ Minerals (Centrum Silver Adult 50+) 1 Tab Tab 1 TAB PO QAM Simvastatin (Zocor) 80 Mg Tab 80 MG PO HS, TAB Discontinued Medications: Lisinopril (Zestril) 5 Mg Tab 5 MG PO DAILY, TAB Discharge Exam Review of Systems: Constitutional: No fever, No chills, No weakness Respiratory: + shortness of breath, + dyspnea on exertion Cardiovascular: No chest pain, No edema Abdomen: No pain, No nausea, No vomiting, No diarrhea Psychiatric: No depression symptoms, No anhedonism Physical Exam: General Appearance: + mild distress, + thin Neck: supple, no JVD Respiratory/Chest: chest non-tender, lungs clear, normal breath sounds Cardiovascular: regular rate, rhythm, no murmur Hospital Course 72-year-old man with past medical history of CAD, dyslipidemia, chronic diastolic congestive heart failure, peripheral vascular disease who was 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 sepsis present on admission secondary to pneumonia with Acute hypoxic respiratory failure. 2 step prior to discharge suggests continued need for ambulatory oxygen Healthcare associated multifocal pneumonia, Rapid flu and urine Legionella were negative CT scan chest showed infiltrate, Initially started on vancomycin/Zosyn MRSA nostril were negative, Vanco was stopped. Sputum cultures blood cultures are all negative will go home on one week of augmentin COPD, emphysema with improving exacerbation Bronchodilators will have home on combivent has improved without steroids Right-sided chest wall pleurisy resolved Hypertension, continues to be controlled with metoprolol Hx of CHATA SCLC dx in January 2016 s/p chemotherapy, did have ct chest this stay, recommend touching base with Dr Ash to consider timing of next CT chest for resolution and tracking of cancer Diabetes mellitus type 2, will resume home meds Chronic kidney disease stage III BPH symptomatic on proscar Total Time Spent: Greater than 30 minutes This includes examination of the patient, discharge planning, medication reconciliation, and communication with other providers. Discharge Instructions Please refer to the electronic Patient Visit Report (Discharge Instructions) for additional information.
== END 2018-01-05 13:58 | disposition home or self-care (01) | DRG 871 ==
LOC: C.EDB 13:43 → ENRESERV 19:50 → C.2T 20:40 → UNDOADMIN 20:40 → C.2T 20:44 → ENRESERV 12-28 19:13 → C.MS4W 12-28 20:23
PROVIDERS: ADMIT Internal Medicine; ATTEND Internal Medicine
DX: A41.9 Sepsis, unspecified organism (principal); J18.9 Pneumonia, unspecified organism; J96.01 Acute respiratory failure with hypoxia; J44.0 Chronic obstructive pulmonary disease with (acute) lower respiratory infection; J44.1 Chronic obstructive pulmonary disease with (acute) exacerbation; N17.9 Acute kidney failure, unspecified; I13.0 Hypertensive heart and chronic kidney disease with heart failure and stage 1 through stage 4 chronic kidney disease, or unspecified chronic kidney disease; I50.32 Chronic diastolic (congestive) heart failure; R09.1 Pleurisy; R04.0 Epistaxis; D64.9 Anemia, unspecified; N18.3 Chronic kidney disease, stage 3 (moderate); E11.22 Type 2 diabetes mellitus with diabetic chronic kidney disease; E78.5 Hyperlipidemia, unspecified; I25.10 Atherosclerotic heart disease of native coronary artery without angina pectoris; I25.2 Old myocardial infarction; N40.0 Benign prostatic hyperplasia without lower urinary tract symptoms; I25.5 Ischemic cardiomyopathy; I73.9 Peripheral vascular disease, unspecified; Z79.899 Other long term (current) drug therapy; Z79.84 Long term (current) use of oral hypoglycemic drugs; Z79.82 Long term (current) use of aspirin; Z79.02 Long term (current) use of antithrombotics/antiplatelets; Z85.118 Personal history of other malignant neoplasm of bronchus and lung; Z92.21 Personal history of antineoplastic chemotherapy; Z95.5 Presence of coronary angioplasty implant and graft; Z87.891 Personal history of nicotine dependence; Z82.49 Family history of ischemic heart disease and other diseases of the circulatory system; Z83.3 Family history of diabetes mellitus; Z83.2 Family history of diseases of the blood and blood-forming organs and certain disorders involving the immune mechanism; Z82.3 Family history of stroke; Z80.1 Family history of malignant neoplasm of trachea, bronchus and lung; Z80.3 Family history of malignant neoplasm of breast

== ENCOUNTER → 2018-02-26 | Outpatient (CLI) | payer OTHER ==
[~2018-02-26] MED LIST changes: +ASPI81TA28 PO; +CLOP1TAB15 PO; +FINA5TAB PO; +GFNSR600 PO; +GLIP2.5T11 PO; +IPRA1AER2 INH; +OXGN
[2018-02-26 12:25] LABS: BASO % 0.2 %; BASO ABS # 0.02 K/uL (0-0.2); EOS % 5.3 %; EOS ABS # 0.44 K/uL (0-0.5); HEMATOCRIT 35.1 % (42-52); HEMOGLOBIN 11.4 g/dL (14.0-18.0); IG# 0.12 K/uL (0.00-0.02); LYMPH % 11.7 %; LYMPH ABS # 0.97 K/uL (1.2-3.4); MEAN CELL VOLUME 85.4 fL (80-100); MEAN CORPUSCULAR HEMOGLOBIN 27.7 pg (25-34); MEAN CORPUSCULAR HGB CONC 32.5 g/dl (32-36); MEAN PLATELET VOLUME 9.7 fL (7.4-10.4); MONO % 11.7 %; MONO ABS # 0.97 K/uL (0.11-0.59); NEUT % 69.7 %; NEUT ABS # 5.78 K/uL (1.4-6.5); PLATELET COUNT 258 K/uL (130-400); RED CELL DISTRIBUTION WIDTH CV 15.5 % (11.5-14.5); RED CELL DISTRIBUTION WIDTH SD 48.3 fL (36.4-46.3)
[2018-02-26 12:36] LABS: ALBUMIN 3.2 gm/dl (3.4-5.0); ALT/SGPT 24 U/L (12-78); AST/SGOT 19 U/L (15-37); BLOOD UREA NITROGEN 27 mg/dl (7-18); CALCIUM 8.6 mg/dl (8.5-10.1); CARBON DIOXIDE 26 mmol/L (21-32); CREATININE 1.11 mg/dl (0.60-1.40); GLUCOSE 118 mg/dl (70-99); POTASSIUM 4.5 mmol/L (3.5-5.1); SODIUM 138 mmol/L (136-145)
[2018-02-26 12:39] LABS: HEMOGLOBIN A1C 6.4 % (4.5-5.6)
[2018-02-26 12:41] LABS: ALKALINE PHOSPHATASE 106 U/L (45-117); TOTAL PROTEIN 7.2 gm/dl (6.4-8.2)
== END | disposition home or self-care (01) ==
LOC: C.LABBFT 07:59
PROVIDERS: ATTEND Internal Medicine
DX: R39.9 Unspecified symptoms and signs involving the genitourinary system (principal); C34.90 Malignant neoplasm of unspecified part of unspecified bronchus or lung; E11.9 Type 2 diabetes mellitus without complications; E87.5 Hyperkalemia

== ENCOUNTER → 2018-02-27 | Outpatient (CLI) | payer OTHER ==
[2018-02-27 13:47] LABS: CREATININE RANDOM URINE 86.3 mg/dl
== END | disposition home or self-care (01) ==
LOC: C.LABBFT 09:02
PROVIDERS: ATTEND Internal Medicine
DX: E11.9 Type 2 diabetes mellitus without complications (principal)

== ENCOUNTER 2018-05-26 10:51 | Inpatient (IN) | payer OTHER ==
[~2018-05-26] VITALS: Ht 170.2 cm; Wt 54.8 kg
[~2018-05-26 10:51] MED LIST changes: -ASPI81TA28 PO; +FERR1TAB13 PO; +GABA-113 PO; -GLIP2.5T11 PO; -METO-217 PO; +METO25TA3 PO; -OXGN; +PRED10TA PO; +SIMV40TA4 PO; -SIMV80TA2 PO
[2018-05-26] MEDS ORDERED: GLIP2.5T11 PO ×2 (11:53→14:45)
[2018-05-26] MEDS ORDERED: AMOX875T PO (11:55)
[2018-05-26] MEDS ORDERED: ALBUT/IPRATROP 3MG/0.5MG NEB 3 ML VIAL INH STA (12:14)
[2018-05-26] MEDS ORDERED: SODIUM CHLORIDE 0.9% 1000ML 1,000 ML IV ONE ×3 (12:33→14:22)
[2018-05-26 12:56] LABS: BASO % 0.2 %; BASO ABS # 0.02 K/uL (0-0.2); EOS % 0.5 %; EOS ABS # 0.06 K/uL (0-0.5); HEMATOCRIT 24.3 % (42-52); HEMOGLOBIN 7.5 g/dL (14.0-18.0); IG# 0.18 K/uL (0.00-0.02); LYMPH % 5.3 %; LYMPH ABS # 0.67 K/uL (1.2-3.4); MEAN CELL VOLUME 77.9 fL (80-100); MEAN CORPUSCULAR HGB CONC 30.9 g/dl (32-36); MEAN PLATELET VOLUME 8.8 fL (7.4-10.4); MONO % 6.6 %; MONO ABS # 0.83 K/uL (0.11-0.59); NEUT ABS # 10.89 K/uL (1.4-6.5); PLATELET COUNT 515 K/uL (130-400); RED CELL DISTRIBUTION WIDTH CV 18.5 % (11.5-14.5); RED CELL DISTRIBUTION WIDTH SD 53.2 fL (36.4-46.3); WHITE BLOOD COUNT 12.65 K/uL (4.8-10.8)
[2018-05-26 13:04] LABS: INR 1.2 (0.9-1.1); PTT PATIENT 32.4 SECONDS (21.0-31.0)
[2018-05-26 13:22] LABS: ALBUMIN 1.9 gm/dl (3.4-5.0); ALKALINE PHOSPHATASE 113 U/L (45-117); ALT/SGPT 21 U/L (12-78); AST/SGOT 15 U/L (15-37); BLOOD UREA NITROGEN 26 mg/dl (7-18); CALCIUM 9.1 mg/dl (8.5-10.1); CARBON DIOXIDE 24 mmol/L (21-32); CREATININE 0.94 mg/dl (0.60-1.40); GLUCOSE 187 mg/dl (70-99); POTASSIUM 4.3 mmol/L (3.5-5.1); SODIUM 130 mmol/L (136-145); TOTAL PROTEIN 8.1 gm/dl (6.4-8.2)
[2018-05-26] MEDS ORDERED: PIPERACILLIN/TAZOBACTAM 4.5 GM/100ML D5W IV STA (13:28)
[2018-05-26] MEDS ORDERED: VANCOMYCIN IV 1,250 MG in SODIUM CHLORIDE 0.9% 250ML 250 ML IV STA (13:28)
[2018-05-26] MEDS ORDERED: VANCOMYCIN CONSULT ACTIVE PRN ×2 (13:30→15:00)
[2018-05-26] MEDS ORDERED: METHYLPREDNISOLONE 125 MG VIAL IV STA (13:38)
--- NOTE | 2018-05-26 13:50 | DIAGNOSTIC IMAGING REPORT ---
TWO VIEW CHEST CLINICAL HISTORY: Dyspnea. Pneumonia. FINDINGS: PA and lateral chest radiographs are compared to study dated 04/08/2018 and correlated with chest CT dated 03/11/2018. The PA view is significantly degraded by patient rotation. A left subclavian central venous infusion port is unchanged in position. The heart is top normal for projection and there is atherosclerotic calcification of the thoracic aorta. Advanced emphysema and chronic interstitial thickening are similar to previous. Left apical consolidation/fibrosis is unchanged from recent prior examinations. There is no airspace consolidation at the right lung base, typical in appearance for pneumonia. No pleural effusion is identified There is no pneumothorax. The skeletal structures are osteopenic. The bony thorax appears intact. IMPRESSION: 1. There is airspace consolidation identified throughout the right lower lobe, new from 04/08/2018 and typical in appearance for pneumonia. Radiographic follow-up to resolution is recommended. 2. Advanced emphysema. 3. Left apical fibrosis/consolidation is similar in appearance to prior examinations. Electronically signed by: Demario Geller M.D. 05/26/2018 1:49 PM Dictated Date/Time: 05/26/2018 1:46 PM
[2018-05-26] MEDS ORDERED: GLUCOSE 40% GEL 15 GM TUBE PO PRN (15:00)
[2018-05-26] MEDS ORDERED: ACETAMINOPHEN 325 MG TAB PO PRN (15:00)
[2018-05-26] MEDS ORDERED: PIPERACILL/TAZOBAC CONSULT ACTIVE PRN (15:00)
[2018-05-26] MEDS ORDERED: GLUCAGON FOR INJ 1 MG VIAL SQ PRN (15:00)
[2018-05-26] MEDS ORDERED: MAGNESIUM HYDROXIDE SUSP 30 ML UDC PO PRN (15:00)
[2018-05-26] MEDS ORDERED: GLUCOSE 10 TABS/TUBE PO PRN (15:00)
[2018-05-26] MEDS ORDERED: ONDANSETRON INJ 2 MG/ML 2 ML VIAL IV PRN (15:00)
[2018-05-26 15:15] VITALS: O2SAT 93; BMI 19.8
--- NOTE | 2018-05-26 15:23 | History and Physical ---
History & Physical Date & Time of Service: May 26, 2018 at 15:08 Chief Complaint: Pneumonia Primary Care Physician: Charles Vera M.D. History of Present Illness Source: patient, spouse 72 y/o M c/o worsening SOB with exertion. Pt was dx with PNA that was seen on an outpt PET scan recently. He was started on augmentin at the suggestion of pulm given hx of success with this abx with a recent PNA. Pt was suggested to be admitted, however he declined at that time. He has been on abx x4 days. He started having worsening BEE with most any activity. Not SOB at rest. He had a productive cough and this is worsening also. He has chills, but no fever. Appetite is low, but he does tolerate what he eats. Pt denies chest pain, abd pain, n/v/c/d, LE pain or swelling. Pt notes some streaks of blood in his sputum, but no akila blood in his stool. His stool is black but this has been the case since he started iron. Due to his low Hb, he was to have a c-c-scope 2 weeks ago, but was found to be too weak to tolerate the procedure. His just sent a stool for blood this morning given he could not have the scope. Recent PET noted for new lung lesion but no colon lesions. Past Medical/Surgical History COPD DM HTN Hyperlipidemia BPH Recurrent PNA Lung cancer with recent PET Hx of PUD Family History Family history was reviewed; no changes noted. Mother: OR Father: OR Social History Smoking Status: Former Smoker (quit 2005) Alcohol Use: occasionally (rare beer) Drug Use: none Marital Status: Housing status: lives with family Occupational Status: retired Immunizations History of Influenza Vaccine: Yes Influenza Vaccine Date: Jul 29, 2015 History of Tetanus Vaccine?: Unknown Tetanus Immunization Date: Nov 22, 2002 History of Pneumococcal: Unknown History of Hepatitis B Vaccine: Unknown Allergies Coded Allergies: No Known Allergies (Verified , 04/17/18) Home Medications Scheduled Amoxicillin & Pot Clavulanate (Augmentin 875-125 mg), 1 TAB PO BID Ferrous Sulfate (Kp Ferrous Sulfate), 1 TAB PO BID Finasteride (Proscar), 5 MG PO QAM Glipizide (Glipizide Er), 5 MG PO QAM Glipizide (Glipizide Er), 2.5 MG PO QPM Ipratropium-Albuterol (Combivent Respimat), 1 PUFFS INH QID Metformin Hcl (Glucophage), 1,000 MG PO BID Metoprolol Succ (Toprol Xl) (Toprol-Xl), 25 MG PO QAM Multiple Vitamins W/ Minerals (Centrum Silver Adult 50+), 1 TAB PO QAM Simvastatin (Zocor), 40 MG PO QPM Review of Systems Pertinent positives and negatives reviewed in HPI--all others negative Physical Exam Vital Signs Date Time Temp Pulse Resp B/P (MAP) Pulse Ox O2 Delivery O2 Flow Rate FiO2 05/26/18 14:32 93 21 120/67 93 Room Air 05/26/18 12:59 100 21 124/69 93 Room Air 05/26/18 11:45 95 Room Air 05/26/18 11:45 95 Room Air 05/26/18 11:45 95 Room Air 05/26/18 11:05 36.2 115 22 97/60 92 Room Air General Appearance: no apparent distress, + thin Head: normocephalic, atraumatic Eyes: normal inspection, sclerae normal Respiratory/Chest: no respiratory distress, + crackles (R base), + pertinent finding (neg for wheezing) Cardiovascular: regular rate, rhythm, no edema Abdomen/GI: non tender, soft Extremities/Musculoskelatal: no calf tenderness, no pedal edema Neurologic/Psych: alert, normal mood/affect, oriented x 3 Skin: normal color, warm/dry Diagnostics Laboratory Results Results Past 24 Hours Test 05/26/18 12:37 05/26/18 12:45 05/26/18 13:40 05/26/18 14:28 Range/Units White Blood Count 12.65 4.8-10.8 K/uL Red Blood Count 3.12 4.7-6.1 M/uL Hemoglobin 7.5 14.0-18.0 g/dL Hematocrit 24.3 42-52 % Mean Corpuscular Volume 77.9 80-100 fL Mean Corpuscular Hemoglobin 24.0 25-34 pg Mean Corpuscular Hemoglobin Concent 30.9 32-36 g/dl Platelet Count 515 130-400 K/uL Mean Platelet Volume 8.8 7.4-10.4 fL Neutrophils (%) (Auto) 86.0 % Lymphocytes (%) (Auto) 5.3 % Monocytes (%) (Auto) 6.6 % Eosinophils (%) (Auto) 0.5 % Basophils (%) (Auto) 0.2 % Neutrophils # (Auto) 10.89 1.4-6.5 K/uL Lymphocytes # (Auto) 0.67 1.2-3.4 K/uL Monocytes # (Auto) 0.83 0.11-0.59 K/uL Eosinophils # (Auto) 0.06 0-0.5 K/uL Basophils # (Auto) 0.02 0-0.2 K/uL RDW Standard Deviation 53.2 36.4-46.3 fL RDW Coefficient of Variation 18.5 11.5-14.5 % Immature Granulocyte % (Auto) 1.4 % Immature Granulocyte # (Auto) 0.18 0.00-0.02 K/uL Anisocytosis PRESENT Spherocytes 2+ Prothrombin Time 12.1 9.0-12.0 SECONDS Prothromb Time International Ratio 1.2 0.9-1.1 Activated Partial Thromboplast Time 32.4 21.0-31.0 SECONDS Partial Thromboplastin Ratio 1.2 Sodium Level 130 136-145 mmol/L Potassium Level 4.3 3.5-5.1 mmol/L Chloride Level 99 98-107 mmol/L Carbon Dioxide Level 24 21-32 mmol/L Anion Gap 7.0 3-11 mmol/L Blood Urea Nitrogen 26 7-18 mg/dl Creatinine 0.94 0.60-1.40 mg/dl Est Creatinine Clear Calc Drug Dose 55.8 ml/min Estimated GFR () 92.2 Estimated GFR (Non- 79.6 BUN/Creatinine Ratio 27.4 10-20 Random Glucose 187 70-99 mg/dl Calcium Level 9.1 8.5-10.1 mg/dl Total Bilirubin 0.4 0.2-1 mg/dl Aspartate Amino Transf (AST/SGOT) 15 15-37 U/L Alanine Aminotransferase (ALT/SGPT) 21 12-78 U/L Alkaline Phosphatase 113 45-117 U/L Troponin I < 0.015 0-0.045 ng/ml Total Protein 8.1 6.4-8.2 gm/dl Albumin 1.9 3.4-5.0 gm/dl Globulin 6.2 2.5-4.0 gm/dl Albumin/Globulin Ratio 0.3 0.9-2 Procalcitonin 0.32 0-0.5 ng/ml Lactic Acid Level 2.9 2.9 0.4-2.0 mmol/L Urine Color DK YELLOW Urine Appearance CLEAR CLEAR Urine pH 5.0 4.5-7.5 Urine Specific [place] 1.023 1.000-1.030 Urine Protein 1+ NEG Urine Glucose (UA) NEG NEG Urine Ketones TRACE NEG Urine Occult Blood NEG NEG Urine Nitrite NEG NEG Urine Bilirubin NEG NEG Urine Urobilinogen NEG NEG Urine Leukocyte Esterase NEG NEG Urine WBC (Auto) 1-5 0-5 /hpf Urine RBC (Auto) 0-4 0-4 /hpf Urine Hyaline Casts (Auto) 5-10 0-5 /lpf Urine Epithelial Cells (Auto) 5-10 0-5 /lpf Urine Bacteria (Auto) NEG NEG Microbiology Results 05/26/18 Blood Culture, Received Pending 05/26/18 Blood Culture, Received Pending Diagnostic Radiology CXR: RLL PNA Impression Assessment and Plan 72 y/o M who was admitted on 05/26 with PNA and COPD exacerbation PNA: noted on CXR Failed outpt augmentin Started on vanco/zosyn given d/c from [facility] on 04/12, will continue Elevated WBC, afebrile, tachycardic Elevated lactic acid, will repeat IVF Trop neg COPD exacerbation: likely related to PNA Nebs/steroids in ED, will continue with nebs but hold on further steroids given DM and no further wheezing Lung ca with mets: follows with [facility] hem/onc if needed Recent PET Likely making PNA difficult to clear Anemia: Hb was 9.5 on 04/24, now at 7.5 Heme + in the ED, stool pending No colon lesions noted on PET and asx from a GI standpoint Monitor HypoNa: mild, monitor HTN: continue home meds DM: A1c pending Holding PO meds, SSI PRN CAD: hx of OR and stents x7 Pt could not tolerate plavix (nosebleeds) and is on aspirin 81mg Holding for now given above Hyperlipidemia: continue home meds BPH: continue home meds Other: Full code Full liquid DM diet SCDs for DVT proph given above Resuscitation Status VTE Prophylaxis Will order VTE Prophylaxis: Yes Additional Copies To Charles Vera M.D.
[2018-05-26] MEDS ORDERED: NURSING VERBAL MED ORDER ONE (15:45)
[2018-05-26] MEDS: ALBUT/IPRATROP 3MG/0.5MG NEB 3 ML VIAL INH SCH ×2 (16:00→19:22)
--- NOTE | 2018-05-26 16:17 | Pharmacy Progress Note ---
Pharmacy Abx Initial Consult Date of Service May 26, 2018. Pharmacy Dosing Scope Date of Consult: 05/26/18 Consultation requested by: Dr. Saucedo Pharmacy is consulted to initiate Vancomycin & Zosyn IV dosing therapy, order appropriate labs and adjust drug dose/frequency. Subjective The patient is a 72 year old male admitted on . Objective Height (Feet): 5 Height (Inches): 7.00 Weight (Kilograms): 57.200 (BMI 19.7) Vital Signs (Past 12Hrs) Vital Signs Past 12 Hours Date Time Temp Pulse Resp B/P (MAP) Pulse Ox O2 Delivery O2 Flow Rate FiO2 05/26/18 15:56 89 20 137/84 94 05/26/18 15:15 93 Room Air 05/26/18 14:32 93 21 120/67 93 Room Air 05/26/18 12:59 100 21 124/69 93 Room Air 05/26/18 11:45 95 Room Air 05/26/18 11:45 95 Room Air 05/26/18 11:45 95 Room Air 05/26/18 11:05 36.2 115 22 97/60 92 Room Air Lab Results (24Hrs) Laboratory Tests (24 Hours) Test 05/26/18 12:37 05/26/18 15:34 White Blood Count 12.65 K/uL (4.8-10.8) H Red Blood Count 3.12 M/uL (4.7-6.1) L Hemoglobin 7.5 g/dL (14.0-18.0) L Hematocrit 24.3 % (42-52) L Mean Corpuscular Volume 77.9 fL (80-100) L Mean Corpuscular Hemoglobin 24.0 pg (25-34) L Mean Corpuscular Hemoglobin Concent 30.9 g/dl (32-36) L Platelet Count 515 K/uL (130-400) H Mean Platelet Volume 8.8 fL (7.4-10.4) Neutrophils (%) (Auto) 86.0 % Lymphocytes (%) (Auto) 5.3 % Monocytes (%) (Auto) 6.6 % Eosinophils (%) (Auto) 0.5 % Basophils (%) (Auto) 0.2 % Neutrophils # (Auto) 10.89 K/uL (1.4-6.5) H Lymphocytes # (Auto) 0.67 K/uL (1.2-3.4) L Monocytes # (Auto) 0.83 K/uL (0.11-0.59) H Eosinophils # (Auto) 0.06 K/uL (0-0.5) Basophils # (Auto) 0.02 K/uL (0-0.2) Procalcitonin 0.32 ng/ml (0-0.5) Lactic Acid Level 1.9 mmol/L (0.4-2.0) Item Value Date Time Creatinine 0.94 mg/dl 05/26/18 1237 Est Creatinine Clear Calc Drug Dose 55.8 ml/min 05/26/18 1237 Micro Results Date/Time Source Procedure Growth Status 05/26/18 12:38 Blood Blood Culture Pending Received 05/26/18 12:37 Blood Blood Culture Pending Received Risk Factors for Resistance * Hospitalization for 48 hours or more within the past 90 days * Antimicrobial use within the last 90 days Augmentin Assessment & Plan Assessment 72 year old male presents with worsening shortness of breath with exertion. Recently diagnosed with Pneumonia. Started on Augmentin. Has been taking for 4 days now. Has productive cough that seems worse. Chills/no fever. Has streaks of blood in sputum. * Recent PET noted for new lung lesion but no colon lesions. Plan Vancomcyin & Zosyn for treatment of pneumonia Vancomycin IV * Estimated Pkinetic parameters: Vd 0.7L/kg; Abdifatah ~0.051 hr-1; T1/2 ~13.6; CrCl 55.8 * Loading dose: 1250 mg (~22 mg/kg) * Maintenance dose: 750 mg IV (~13.1 mg/kg) every 16 hours * Goal trough level for pneumonia : 15 to 20 mcg/mL * Trough/Random level ordered for 05/29/18 Piperacillin/tazobactam * 4.5 g bolus administered over 30 minutes, then 3.375 g IV extended infusion every 8 hours for CrCl greater than 20 mL/min Pharmacy will continue to follow and will adjust dose/frequency as necessary. Thank you.
[2018-05-26] MEDS: INSULIN ASPART 100 UNITS/ML 3 ML PEN SC SCH ×3 (16:30→20:55)
[2018-05-26] MEDS: SODIUM CHLORIDE 0.9% 1000ML 1,000 ML IV SCH (16:58)
[2018-05-26] MEDS ORDERED: IPRATROPIUM BROMIDE/ALBUTEROL respimat INH INH SCH (17:00)
[2018-05-26] MEDS: FERROUS SULFATE 325 MG TAB PO SCH (17:57)
[2018-05-26 19:25] VITALS: PULSE 110; O2SAT 85
--- NOTE | 2018-05-26 19:48 | EMERGENCY ROOM VISIT NOTE ---
History Report prepared by Christopher: Charissa Wagner Under the Supervision of: Dr. Timoteo Barger M.D. First contact with patient: 12:04 Chief Complaint: RESPIRATORY PROBLEMS Stated Complaint: PNEUMONIA History of Present Illness The patient is a 72 year old male who presents to the Emergency Room with complaints of worsening SOB beginning a couple of weeks [employer] division [employer]. He states his SOB is getting worse however, he notes he is only at the ED to make sure he is okay. He is accompanied by his and son who state the pt has been coughing up blood. The pt notes that movement and going to the bathroom worsens his SOB but he denies any fevers. He is currently taking Augmentin however it has not modified his SOB. He has an inhaler which he uses 4x a day but it does "not do much" for him. His PCP is Dr. Vera, Family Medicine. 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 A total of ten systems were reviewed and were otherwise negative. Past Medical & Surgical Medical Problems: (1) Anemia (2) Anemia (3) BPH (benign prostatic hyperplasia) (4) CAD (coronary artery disease) (5) CKD stage 3 due to type 2 diabetes mellitus (6) Consolidation lung (7) COPD (chronic obstructive pulmonary disease) (8) COPD exacerbation (9) DM II (diabetes mellitus, type II), controlled (10) Enlarged prostate (11) HLD (hyperlipidemia) (12) HTN (hypertension) (13) Hx of myocardial infarction (14) Left upper lobe pneumonia (15) [place] (myocardial infarction) (16) Pneumonia (17) PVD (peripheral vascular disease) (18) Tachycardia (19) Weakness Surgical Problems: (1) History of heart artery stent Family History FH: anemia FH: myocardial infarction Hypertension Type II diabetes mellitus Social History Smoking Status: Former Smoker Alcohol Use: none Drug Use: none Marital Status: Housing Status: lives with family Occupation Status: retired Current/Historical Medications Scheduled Amoxicillin & Pot Clavulanate (Augmentin 875-125 mg), 1 TAB PO BID Ferrous Sulfate (Kp Ferrous Sulfate), 1 TAB PO BID Finasteride (Proscar), 5 MG PO QAM Glipizide (Glipizide Er), 5 MG PO QAM Glipizide (Glipizide Er), 2.5 MG PO QPM Ipratropium-Albuterol (Combivent Respimat), 1 PUFFS INH QID Metformin Hcl (Glucophage), 1,000 MG PO BID Metoprolol Succ (Toprol Xl) (Toprol-Xl), 25 MG PO QAM Multiple Vitamins W/ Minerals (Centrum Silver Adult 50+), 1 TAB PO QAM Simvastatin (Zocor), 40 MG PO QPM Allergies Coded Allergies: No Known Allergies (Verified , 04/17/18) Physical Exam Vital Signs Date Time Temp Pulse Resp B/P (MAP) Pulse Ox O2 Delivery O2 Flow Rate FiO2 05/26/18 14:32 93 21 120/67 93 Room Air 05/26/18 12:59 100 21 124/69 93 Room Air 05/26/18 11:45 95 Room Air 05/26/18 11:45 95 Room Air 05/26/18 11:45 95 Room Air 05/26/18 11:05 36.2 115 22 97/60 92 Room Air Physical Exam GENERAL: Awake, alert, chronically ill-appearing, in no distress HENT: Normocephalic, atraumatic. Oropharynx unremarkable. EYES: Normal conjunctiva. Sclera non-icteric. NECK: Supple. No nuchal rigidity. RESPIRATORY: Diffuse inspiratory and expiratory wheeze CARDIAC: Normal rate. Normal rhythm. Extremities warm and well perfused. GI: Soft, non-distended. No tenderness to palpation. No rebound or guarding. No masses. RECTAL: Deferred. MUSCULOSKELETAL: Atraumatic. Chest examination reveals no tenderness. There is no CVA tenderness to palpation. Left upper chest wall port LOWER EXTREMITIES: Calves are equal size bilaterally and non-tender. No edema NEURO: Normal sensorium. No sensory or motor deficits noted. No facial droop. SKIN: Warm and dry. No rash or jaundice noted. Medical Decision & Procedures ER Provider Diagnostic Interpretation: Radiology results as stated below per my review and radiologist interpretation: TWO VIEW CHEST CLINICAL HISTORY: Dyspnea. Pneumonia. FINDINGS: PA and lateral chest radiographs are compared to study dated 04/08/2018 and correlated with chest CT dated 03/11/2018. The PA view is significantly degraded by patient rotation. A left subclavian central venous infusion port is unchanged in position. The heart is top normal for projection and there is atherosclerotic calcification of the thoracic aorta. Advanced emphysema and chronic interstitial thickening are similar to previous. Left apical consolidation/fibrosis is unchanged from recent prior examinations. There is no airspace consolidation at the right lung base, typical in appearance for pneumonia. No pleural effusion is identified There is no pneumothorax. The skeletal structures are osteopenic. The bony thorax appears intact. IMPRESSION: 1. There is airspace consolidation identified throughout the right lower lobe, new from 04/08/2018 and typical in appearance for pneumonia. Radiographic follow-up to resolution is recommended. 2. Advanced emphysema. 3. Left apical fibrosis/consolidation is similar in appearance to prior examinations. Electronically signed by: Demario Geller M.D. 05/26/2018 1:49 PM Laboratory Results 05/26/18 12:37 Red Blood Count 3.12, Mean Corpuscular Volume 77.9, Mean Corpuscular Hemoglobin 24.0, Mean Corpuscular Hemoglobin Concent 30.9, Mean Platelet Volume 8.8, Neutrophils (%) (Auto) 86.0, Lymphocytes (%) (Auto) 5.3, Monocytes (%) (Auto) 6.6, Eosinophils (%) (Auto) 0.5, Basophils (%) (Auto) 0.2, Neutrophils # (Auto) 10.89, Lymphocytes # (Auto) 0.67, Monocytes # (Auto) 0.83, Eosinophils # (Auto) 0.06, Basophils # (Auto) 0.02 05/26/18 12:37 Test 05/26/18 12:37 05/26/18 13:40 White Blood Count 12.65 K/uL (4.8-10.8) Red Blood Count 3.12 M/uL (4.7-6.1) Hemoglobin 7.5 g/dL (14.0-18.0) Hematocrit 24.3 % (42-52) Mean Corpuscular Volume 77.9 fL (80-100) Mean Corpuscular Hemoglobin 24.0 pg (25-34) Mean Corpuscular Hemoglobin Concent 30.9 g/dl (32-36) Platelet Count 515 K/uL (130-400) Mean Platelet Volume 8.8 fL (7.4-10.4) Neutrophils (%) (Auto) 86.0 % Lymphocytes (%) (Auto) 5.3 % Monocytes (%) (Auto) 6.6 % Eosinophils (%) (Auto) 0.5 % Basophils (%) (Auto) 0.2 % Neutrophils # (Auto) 10.89 K/uL (1.4-6.5) Lymphocytes # (Auto) 0.67 K/uL (1.2-3.4) Monocytes # (Auto) 0.83 K/uL (0.11-0.59) Eosinophils # (Auto) 0.06 K/uL (0-0.5) Basophils # (Auto) 0.02 K/uL (0-0.2) RDW Standard Deviation 53.2 fL (36.4-46.3) RDW Coefficient of Variation 18.5 % (11.5-14.5) Immature Granulocyte % (Auto) 1.4 % Immature Granulocyte # (Auto) 0.18 K/uL (0.00-0.02) Anisocytosis PRESENT Spherocytes 2+ Prothrombin Time 12.1 SECONDS (9.0-12.0) Prothromb Time International Ratio 1.2 (0.9-1.1) Activated Partial Thromboplast Time 32.4 SECONDS (21.0-31.0) Partial Thromboplastin Ratio 1.2 Anion Gap 7.0 mmol/L (3-11) Est Creatinine Clear Calc Drug Dose 55.8 ml/min Estimated GFR () 92.2 Estimated GFR (Non- 79.6 BUN/Creatinine Ratio 27.4 (10-20) Calcium Level 9.1 mg/dl (8.5-10.1) Total Bilirubin 0.4 mg/dl (0.2-1) Aspartate Amino Transf (AST/SGOT) 15 U/L (15-37) Alanine Aminotransferase (ALT/SGPT) 21 U/L (12-78) Alkaline Phosphatase 113 U/L (45-117) Troponin I < 0.015 ng/ml (0-0.045) Total Protein 8.1 gm/dl (6.4-8.2) Albumin 1.9 gm/dl (3.4-5.0) Globulin 6.2 gm/dl (2.5-4.0) Albumin/Globulin Ratio 0.3 (0.9-2) Procalcitonin 0.32 ng/ml (0-0.5) Urine Color DK YELLOW Urine Appearance CLEAR (CLEAR) Urine pH 5.0 (4.5-7.5) Urine Specific [place] 1.023 (1.000-1.030) Urine Protein 1+ (NEG) Urine Glucose (UA) NEG (NEG) Urine Ketones TRACE (NEG) Urine Occult Blood NEG (NEG) Urine Nitrite NEG (NEG) Urine Bilirubin NEG (NEG) Urine Urobilinogen NEG (NEG) Urine Leukocyte Esterase NEG (NEG) Urine WBC (Auto) 1-5 /hpf (0-5) Urine RBC (Auto) 0-4 /hpf (0-4) Urine Hyaline Casts (Auto) 5-10 /lpf (0-5) Urine Epithelial Cells (Auto) 5-10 /lpf (0-5) Urine Bacteria (Auto) NEG (NEG) Laboratory results reviewed by me Medications Administered Medications (Trade) Dose Ordered Sig/Vianey Route Start Time Stop Time Status Last Admin Dose Admin Albuterol/ Ipratropium (Duoneb) 3 ml NOW STAT INH 05/26/18 12:14 05/26/18 12:16 DC 05/26/18 12:27 3 ML Sodium Chloride 1,000 ml @ 999 mls/hr Q1H1M ONCE IV 05/26/18 12:33 05/26/18 13:33 DC 05/26/18 12:50 999 MLS/HR Piperacillin Sod/ Tazobactam Sod (Zosyn Iv) 4.5 gm NOW STAT IV 05/26/18 13:28 05/26/18 13:30 DC 05/26/18 14:03 4.5 GM Vancomycin HCl 1250 mg/Sodium Chloride 275 ml @ 125 mls/hr NOW STAT IV 05/26/18 13:28 05/26/18 15:39 DC 05/26/18 14:02 125 MLS/HR Sodium Chloride 1,000 ml @ 999 mls/hr Q1H1M ONCE IV 05/26/18 13:35 05/26/18 14:35 DC 05/26/18 14:03 999 MLS/HR Methylprednisolone Sodium Succinate (Solu-Medrol IV) 125 mg NOW STAT IV 05/26/18 13:38 05/26/18 13:39 DC 05/26/18 14:03 125 MG Sodium Chloride 1,000 ml @ 999 mls/hr Q1H1M ONCE IV 05/26/18 14:22 05/26/18 15:23 DC 05/26/18 14:27 999 MLS/HR ECG Per My Interpretation Indication: SOB/dyspnea Rate (beats per minute): 91 Rhythm: normal sinus Findings: PVC (occasional), other (no acute ST segment elevation, right axis deviation ) Comparison ECG Date: 04/09/18 Change: no significant change ED Course 1205: The patient was evaluated in room C11. A complete history and physical exam was performed. 1214: Ordered Duoneb 3 ml INH 1233: Ordered Sodium Chloride 1000 ml @ 999 mls/hr IV 1335: Ordered Sodium Chloride 1000 ml @ 999 mls/hr IV, Solu-Medrol 125 mg IV 1350: Discussed the patient's case with Dr. Saucedo, [facility] Hospitalist. The patient will be evaluated for further treatment and disposition. 1352: I updated the patient at this time and discussed the treatment plan with him. He was in agreement. Medical Decision Triage Nursing notes reviewed. Differential diagnosis: Etiologies such as infections, reactive airway disease, pneumonia, pneumothorax , COPD, CHF, cardiac ischemia, pulmonary embolism, musculoskeletal, gastrointestinal, as well as others were entertained. Patient presents with several days of worsening cough and some shortness of breath. History of small cell lung cancer COPD and pneumonia. Multiple episodes since December of this year of pneumonia and COPD exacerbation. Not having active chest pain. Do not believe it is abdominal in nature. Could be underlying pneumonia versus COPD exacerbation. Seen by oncology for a week ago and been on 3-4 days of Augmentin without change. Not currently on steroids. Worsening dyspnea on exertion. No leg swelling or pain complaint. Has been using breathing treatments at home with minimal improvement. The outside PET scan results from May 16 reviewed show evidence of a multilobar pneumonia the superior left lower lobe posterior right upper and lower lobes. Borderline hypotension with tachycardia upon presentation. Chest x-ray completed today along with blood work including pro-calcitonin and lactate with blood cultures. Given a breathing treatment. Given a dose of IV steroids and vancomycin and Zosyn. Recent admission so treating for HCAP. Lactate is mildly elevated blood pressure improved with fluids. Pro-calcitonin minimally elevated. Hemoccult positive stool but no abdominal pain. Doubt upper GI bleed. Unsure if this is the etiology of his slightly lower hemoglobin. Plan for admission with likely multilobar pneumonia on top of his COPD and underlying pulmonary ca that failed outpatient treatment along with some anemia and possible GI bleed. Medication Reconcilliation Current Medication List: was personally reviewed by me Blood Pressure Screening Patient's blood pressure: Low blood pressure Blood pressure disposition: Did not require urgent referral Consults Time Called: 1335 Consulting Physician: Dr. Saucedo [facility] Hospitalist Returned Call: [phone] Discussed the patient's case with Dr. Saucedo [facility] Hospitalist. The patient will be evaluated for further treatment and disposition. Impression Primary Impression: Multifocal pneumonia Additional Impressions: COPD exacerbation Anemia Sepsis Critical Care I have personally spent greater than 30 minutes of critical care time in the direct management of this patient. This includes bedside care, interpretation of diagnostic studies, and testing, discussion with consultants, patient, and family members, and other required patient management activities. This 30 minutes is in excess of all separately billable procedures. Scribe Attestation The scribe's documentation has been prepared under my direction and personally reviewed by me in its entirety. I confirm that the note above accurately reflects all work, treatment, procedures, and medical decision making performed by me. Departure Information Dispostion Being Evaluated By Hospitalist (Dr. Saucedo, [facility] Hospitalist) Referrals Charles Vera M.D. (PCP) Patient Instructions My [facility] Sepsis Post Crystalloid Evaluation Date: May 26, 2018 Time: 13:50 Capillary Refill Exam Normal (less than 2 seconds) Cardiopulmonary Evaluation Lung Exam: chest non-tender, + crackles, + wheezing Heart Exam: regular rate, rhythm, no edema Peripheral Pulse Evaluation Normal Skin Exam [place] Vitals Last Vital Signs Documentation Date Time Temp Pulse Resp B/P (MAP) Pulse Ox O2 Delivery O2 Flow Rate FiO2 05/26/18 14:32 93 21 120/67 93 Room Air 05/26/18 11:05 36.2 Problem Qualifiers Additional Impressions: Anemia Anemia type: unspecified type Qualified Codes: D64.9 - Anemia, unspecified Sepsis Sepsis type: sepsis due to unspecified organism Qualified Codes: A41.9 - Sepsis, unspecified organism
[2018-05-26] MEDS: PIPERACILL/TAZOBAC IV 3.375 GM in DEXTROSE 5% 100ML 100 ML IV SCH (20:18)
[2018-05-26] MEDS: SIMVASTATIN 40 MG TAB PO SCH (20:48)
[2018-05-26] MEDS ORDERED: VANCOMYCIN IV 1,000 MG in SODIUM CHLORIDE 0.9% 250ML 250 ML IV SCH (21:00)
[2018-05-26 23:14] VITALS: BP 97/61; PULSE 100; TEMP 36.4; O2SAT 91
[2018-05-27] VITALS (54 sets, daily range): BP systolic 60–182; BP diastolic 24–107; PULSE 89–160; TEMP 36.2–36.5; O2SAT 85–100
[2018-05-27] MEDS: PIPERACILL/TAZOBAC IV 3.375 GM in DEXTROSE 5% 100ML 100 ML IV SCH ×3 (03:42→20:51)
[2018-05-27] MEDS: SODIUM CHLORIDE 0.9% 1000ML 1,000 ML IV SCH (03:46)
[2018-05-27] MEDS: ALBUT/IPRATROP 3MG/0.5MG NEB 3 ML VIAL INH SCH ×3 (05:04→11:12)
[2018-05-27] MEDS: VANCOMYCIN IV 750 MG in SODIUM CHLORIDE 0.9% 250ML 250 ML IV SCH ×2 (05:30→22:15)
[2018-05-27 07:12] LABS: HEMOGLOBIN 6.5 g/dL (14.0-18.0); MEAN CELL VOLUME 78.4 fL (80-100); MEAN CORPUSCULAR HEMOGLOBIN 24.3 pg (25-34); MEAN PLATELET VOLUME 8.7 fL (7.4-10.4); PLATELET COUNT 444 K/uL (130-400); RED CELL DISTRIBUTION WIDTH CV 18.8 % (11.5-14.5); RED CELL DISTRIBUTION WIDTH SD 53.7 fL (36.4-46.3); WHITE BLOOD COUNT 9.72 K/uL (4.8-10.8)
[2018-05-27 07:13] LABS: CALCIUM 8.1 mg/dl (8.5-10.1); CREATININE 0.78 mg/dl (0.60-1.40); POTASSIUM 4.2 mmol/L (3.5-5.1)
[2018-05-27] MEDS ORDERED: METOPROLOL SUCC 25MG EXT REL TAB PO SCH (08:00)
[2018-05-27] MEDS ORDERED: CEROVITE ADV FORMULA TAB PO SCH (08:00)
[2018-05-27] MEDS ORDERED: MIDAZOLAM HCL 5 MG/ML 2ML VIAL IV ONE (08:29)
[2018-05-27] MEDS ORDERED: ROCURONIUM BROMIDE 10 MG/ML 5 ML VIAL IV ONE (08:29)
[2018-05-27] MEDS ORDERED: ETOMIDATE 2 MG/ML 20 ML VIAL IV ONE (08:29)
[2018-05-27] MEDS ORDERED: FENTANYL CITRATE 100 MCG 2 ML CARP IV ONE (08:29)
[2018-05-27] MEDS: FINASTERIDE 5 MG TAB PO SCH (08:42)
[2018-05-27] MEDS: FERROUS SULFATE 325 MG TAB PO SCH ×2 (08:43→16:06)
[2018-05-27] MEDS: INSULIN ASPART 100 UNITS/ML 3 ML PEN SC SCH ×4 (08:55→21:00)
--- NOTE | 2018-05-27 11:48 | DIAGNOSTIC IMAGING REPORT ---
CHEST ONE VIEW PORTABLE CLINICAL HISTORY: Dyspnea. COMPARISON STUDY: Chest radiograph May 26, [address] April 14, 2018. FINDINGS: Left apical cavitary opacity with volume loss is unchanged. Severe emphysema is noted. There is no pneumothorax. Dense right lower lung consolidation has progressed. IMPRESSION: 1. Progression of extensive right lower lung airspace opacity suggestive of pneumonia. 2. Interval development of a trace right pleural effusion. 3. No change in appearance of a cavitary left upper lobe opacity with volume loss. Electronically signed by: Jose Prieto M.D. 05/27/2018 11:47 AM Dictated Date/Time: 05/27/2018 11:44 AM
[2018-05-27] MEDS ORDERED: INSULIN IV INFUSION PROTOCOL SCH (11:52)
[2018-05-27] MEDS ORDERED: NURSING VERBAL MED ORDER ONE ×5 (12:00→17:00)
[2018-05-27] MEDS ORDERED: INSULIN PROTOCOL GOAL RANGE SCH (12:00)
[2018-05-27] MEDS ORDERED: RAPID SEQUENCE INDUCTION BAG ONE (12:03)
--- NOTE | 2018-05-27 12:09 | Progress Note ---
Subjective Date of Service: May 27, 2018. Subjective Pt evaluation today including: conversation w/ patient, conversation w/ family , physical exam, lab review, review of studies, conversation w/ knowledge management consultant, review of inpatient medication list Pain: no pain PO Intake: adequate, ate entire breakfast Voiding: no voiding problems patient was feeling well this morning, no distress, breathing better than time of admission reviewed labs, Hb down to 6.5 from 7.5, ordered two units to be transfused, he agreed with plan no fever, WBC dropped from 12k to 9k, procalcitonin noted to be low on admission called to the room emergently around 1130 because the patient was having respiratory distress saturations dropped to 85% on 10L and he was using accessory muscles placed on Bipap with 12/5 settings and 100% oxygen, saturations improved to 99% , Fio2 reduced to 60% not tolerating the BIPAP well, uncomfortably, belly breathing stat CXR showed worsening right lower lobe consolidation, left upper lobe cavitary lesion ordered ABG, CBC, troponin, procalcitonin discussed with Dr. Ling, he knew patient well from previous admission, performed bronchoscopy at that time, did not show fungal infection or cancer cells he agreed with moving patient to the ICU sugars noted to be elevated in the 300s HR was 150 on pulse oximeter, stat EKG ordered and he will be on monitor to the ICU Problem List Medical Problems: (1) Acute bronchitis Status: Acute (2) GHANSHYAM (acute kidney injury) Status: Acute (3) Enlarged prostate Status: Chronic (4) Epistaxis Status: Acute (5) Exertional dyspnea Status: Acute (6) Hx of cancer of lung Status: Acute (7) Hyperkalemia Status: Acute (8) Hyponatremia Status: Acute (9) Leukocytosis Status: Acute (10) Leukocytosis Status: Acute (11) Lung cancer Status: Acute (12) Multifocal pneumonia Status: Acute (13) Necrotizing pneumonia Status: Acute (14) Pneumonia Status: Acute (15) Sepsis Status: Acute (16) Sepsis Status: Acute (17) SOB (shortness of breath) Status: Acute (18) Stabbing chest pain Status: Acute (19) Substernal chest pain Status: Acute Review of Systems Constitutional: + weight loss, + weakness, + fatigue Respiratory: + cough, + sputum, + shortness of breath, + dyspnea on exertion, + dyspnea at rest, + hemoptysis Abdomen: + GI bleeding Neurologic: + weakness All Other Systems: Reviewed and Negative Medications Current Inpatient Medications Medications (Trade) Dose Ordered Sig/Vianey Route Start Time Stop Time Status Last Admin Dose Admin Acetaminophen (Tylenol Tab) 650 mg Q4H PRN PO 05/26/18 15:00 06/25/18 14:59 05/27/18 05:18 650 MG Magnesium Hydroxide (Milk Of Magnesia Susp) 30 ml Q6H PRN PO 05/26/18 15:00 06/25/18 14:59 Ondansetron HCl (Zofran Inj) 4 mg Q6H PRN IV 05/26/18 15:00 06/25/18 14:59 Insulin Aspart (novoLOG ASPART) SLIDING SCALE If C... ACHS SC 05/26/18 16:00 06/25/18 15:59 05/27/18 08:55 9 UNITS Glucose (Glucose 40% Gel) 15-30 GRAMS 15 GRAMS... UD PRN PO 05/26/18 15:00 06/25/18 14:59 Glucose (Glucose Chew Tab) 4-8 Tablets 4 Tabl... UD PRN PO 05/26/18 15:00 06/25/18 14:59 Dextrose (Dextrose 50% 50ML Syringe) 25-50ML 25ML FOR ... UD PRN IV 05/26/18 15:00 06/25/18 14:59 Glucagon (Glucagon Inj) 1 mg UD PRN SQ 05/26/18 15:00 06/25/18 14:59 Carbohydrates (Carbohydrates For Hypoglycemia) 15-30 GRAMS 15 grams if BSG 54-69... UD PRN PO 05/26/18 15:00 06/25/18 14:59 Finasteride (Proscar Tab) 5 mg QAM PO 05/27/18 08:00 06/26/18 08:59 05/27/18 08:42 5 MG Metoprolol Succinate (Toprol Xl Tab) 25 mg QAM PO 05/27/18 08:00 06/26/18 08:59 05/27/18 08:44 25 MG Multivitamins/ Minerals (Multivitamin W/ Minerals Tab) 1 tab QAM PO 05/27/18 08:00 06/26/18 08:59 05/27/18 08:43 1 TAB Simvastatin (Zocor Tab) 40 mg QPM PO 05/26/18 21:00 06/25/18 20:59 05/26/18 20:48 40 MG Ferrous Sulfate (Feosol Tab) 325 mg BIDM PO 05/26/18 17:00 06/25/18 17:59 05/27/18 08:43 325 MG Albuterol/ Ipratropium (Duoneb) 3 ml QIDR INH 05/26/18 16:00 06/25/18 15:59 05/27/18 11:12 3 ML Vancomycin HCl (Consult) 1 ea UD PRN N/A 05/26/18 15:00 06/25/18 14:59 Piperacillin Sod/ Tazobactam Sod 3.375 gm/Dextrose 115 ml @ 28.75 mls/ hr Q8H IV 05/26/18 20:00 06/02/18 19:59 05/27/18 03:42 28.75 MLS/HR Miscellaneous Information (Consult) 1 ea UD PRN N/A 05/26/18 15:00 06/25/18 14:59 Sodium Chloride 1,000 ml @ 75 mls/hr [id number] IV 05/26/18 17:00 06/25/18 16:59 05/27/18 03:46 75 MLS/HR Vancomycin HCl 750 mg/Sodium Chloride 265 ml @ 125 mls/hr Q16H IV 05/27/18 06:00 06/03/18 05:59 05/27/18 05:30 125 MLS/HR Heparin Sodium (Porcine) (Heparin 100 Unit/ml 5ml Flush) 5 ml PRN PRN IV 05/27/18 01:30 06/26/18 01:29 Objective Vital Signs Date Time Temp Pulse Resp B/P (MAP) Pulse Ox O2 Delivery O2 Flow Rate FiO2 05/27/18 11:35 140 99 100 05/27/18 11:30 36.2 118 28 182/104 86 10.0 05/27/18 11:12 112 24 85 Nasal Cannula 4.0 05/27/18 10:39 36.2 89 107/66 96 4.0 05/27/18 10:00 36.3 96 24 101/68 96 4.0 05/27/18 09:45 36.3 89 105/66 92 4.0 05/27/18 09:30 36.2 101 24 105/63 87 4.0 05/27/18 08:09 36.4 123 22 132/75 (94) 90 4.0 05/27/18 08:00 Nasal Cannula 4.0 05/27/18 07:09 113 22 90 Nasal Cannula 4.0 05/27/18 05:04 107 85 91 Nasal Cannula 2.0 05/27/18 03:57 36.3 95 18 105/67 (80) 97 Nasal Cannula 3.0 05/27/18 00:30 Nasal Cannula 2.0 05/26/18 23:14 36.4 100 18 97/61 (73) 91 Nasal Cannula 2.0 05/26/18 19:25 110 85 85 Room Air 05/26/18 15:56 89 20 137/84 94 05/26/18 15:15 93 Room Air 05/26/18 14:32 93 21 120/67 93 Room Air 05/26/18 12:59 100 21 124/69 93 Room Air Physical Exam General Appearance: + severe distress, + thin Eyes: normal inspection, EOMI, sclerae normal ENT: normal ENT inspection, hearing grossly normal, pharynx normal Neck: supple, no adenopathy, no JVD, trachea midline Respiratory/Chest: + respiratory distress, + decreased breath sounds, + accessory muscle use, + rhonchi (right side) Cardiovascular: no edema, no gallop, no JVD, no murmur, + tachycardia Abdomen: normal bowel sounds, non tender, soft, no organomegaly Extremities: normal range of motion, non-tender, normal inspection, no pedal edema, no calf tenderness, normal capillary refill, pelvis stable Neurologic/Psychiatric: mussel opener II-XII nml as tested, no motor/sensory deficits, alert, normal mood/affect, oriented x 3 Skin: warm/dry, no rash, + pallor Laboratory Results Last 24 Hours Test 05/26/18 12:37 05/26/18 12:45 05/26/18 13:40 05/26/18 14:28 White Blood Count 12.65 K/uL Red Blood Count 3.12 M/uL Hemoglobin 7.5 g/dL Hematocrit 24.3 % Mean Corpuscular Volume 77.9 fL Mean Corpuscular Hemoglobin 24.0 pg Mean Corpuscular Hemoglobin Concent 30.9 g/dl Platelet Count 515 K/uL Mean Platelet Volume 8.8 fL Neutrophils (%) (Auto) 86.0 % Lymphocytes (%) (Auto) 5.3 % Monocytes (%) (Auto) 6.6 % Eosinophils (%) (Auto) 0.5 % Basophils (%) (Auto) 0.2 % Neutrophils # (Auto) 10.89 K/uL Lymphocytes # (Auto) 0.67 K/uL Monocytes # (Auto) 0.83 K/uL Eosinophils # (Auto) 0.06 K/uL Basophils # (Auto) 0.02 K/uL RDW Standard Deviation 53.2 fL RDW Coefficient of Variation 18.5 % Immature Granulocyte % (Auto) 1.4 % Immature Granulocyte # (Auto) 0.18 K/uL Anisocytosis PRESENT Spherocytes 2+ Prothrombin Time 12.1 SECONDS Prothromb Time International Ratio 1.2 Activated Partial Thromboplast Time 32.4 SECONDS Partial Thromboplastin Ratio 1.2 Sodium Level 130 mmol/L Potassium Level 4.3 mmol/L Chloride Level 99 mmol/L Carbon Dioxide Level 24 mmol/L Anion Gap 7.0 mmol/L Blood Urea Nitrogen 26 mg/dl Creatinine 0.94 mg/dl Est Creatinine Clear Calc Drug Dose 55.8 ml/min Estimated GFR () 92.2 Estimated GFR (Non- 79.6 BUN/Creatinine Ratio 27.4 Random Glucose 187 mg/dl Calcium Level 9.1 mg/dl Total Bilirubin 0.4 mg/dl Aspartate Amino Transf (AST/SGOT) 15 U/L Alanine Aminotransferase (ALT/SGPT) 21 U/L Alkaline Phosphatase 113 U/L Troponin I < 0.015 ng/ml Total Protein 8.1 gm/dl Albumin 1.9 gm/dl Globulin 6.2 gm/dl Albumin/Globulin Ratio 0.3 Procalcitonin 0.32 ng/ml Lactic Acid Level 2.9 mmol/L 2.9 mmol/L Urine Color DK YELLOW Urine Appearance CLEAR Urine pH 5.0 Urine Specific Douglas 1.023 Urine Protein 1+ Urine Glucose (UA) NEG Urine Ketones TRACE Urine Occult Blood NEG Urine Nitrite NEG Urine Bilirubin NEG Urine Urobilinogen NEG Urine Leukocyte Esterase NEG Urine WBC (Auto) 1-5 /hpf Urine RBC (Auto) 0-4 /hpf Urine Hyaline Casts (Auto) 5-10 /lpf Urine Epithelial Cells (Auto) 5-10 /lpf Urine Bacteria (Auto) NEG Test 05/26/18 15:34 05/26/18 16:51 05/26/18 20:09 05/27/18 06:27 Lactic Acid Level 1.9 mmol/L Bedside Glucose 134 mg/dl 285 mg/dl White Blood Count 9.72 K/uL Red Blood Count 2.68 M/uL Hemoglobin 6.5 g/dL Hematocrit 21.0 % Mean Corpuscular Volume 78.4 fL Mean Corpuscular Hemoglobin 24.3 pg Mean Corpuscular Hemoglobin Concent 31.0 g/dl RDW Standard Deviation 53.7 fL RDW Coefficient of Variation 18.8 % Platelet Count 444 K/uL Mean Platelet Volume 8.7 fL Sodium Level 137 mmol/L Potassium Level 4.2 mmol/L Chloride Level 108 mmol/L Carbon Dioxide Level 19 mmol/L Anion Gap 10.0 mmol/L Blood Urea Nitrogen 18 mg/dl Creatinine 0.78 mg/dl Est Creatinine Clear Calc Drug Dose 67.2 ml/min Estimated GFR () 103.1 Estimated GFR (Non- 88.9 BUN/Creatinine Ratio 22.8 Random Glucose 247 mg/dl Calcium Level 8.1 mg/dl Test 05/27/18 07:58 05/27/18 11:33 Bedside Glucose 317 mg/dl Assessment and Plan 72 y/o M who was admitted on 05/26 with PNA and COPD exacerbation - Acute hypoxic respiratory failure, respiratory distress due to worsening right lower lobe consolidation, on top of baseline COPD and left upper lobe cavitary lesion placed on BIPAP, oxygen levels improved and stable, but not good machine long goods helper solution ABG stat discussed likely need for intubation with patient, he said to do whatever needs done transfer to ICU immediately, Dr. Ling aware of situation and patient's condition decision to intubate will be up to him - Worsening right lower lobe consolidation, pneumonia, could possibly be pulmonary hemorrhage no fever, WBC down to 9k and procalcitonin was normal on admission continue Vancomycin and Zosyn IV repeat procalcitonin and CBC Hb did drop to 6.5 and he has had progressive drop in Hb, could it be pulmonary bleed? did admit to some streaks of blood in mucous at time of admission - Tachycardia: noted to be 150's, order EKG stat, no h/o Afib - Worsening anemia, assumed blood loss was heme positive stool in the ED continue to transfuse one of two units irradiated PRBC do not feel that this is TRALI, needs blood currently - COPD: no wheezing on exam, continue nebulizers if possible defer steroids to Dr. Ling - DM with hyperglycemia since the patient is critically ill, will order insulin infusion, pharmacy management - H/o lung cancer had recent PET scan as outpatient, unclear results, in [facility] system will request records CAD: hx of MN and stents x7 Pt could not tolerate plavix (nosebleeds) and is on aspirin 81mg Holding for now given above Hyperlipidemia: continue home meds BPH: continue home meds Other: Full code updated over the phone 40 minutes of critical care time spent on this patient, 1130am to 1210pm
[2018-05-27] MEDS ORDERED: ALBUT/IPRATROP 3MG/0.5MG NEB 3 ML VIAL INH PRN (12:30)
[2018-05-27 12:32] LABS: HEMATOCRIT 26.3 % (42-52); HEMOGLOBIN 8.3 g/dL (14.0-18.0); MEAN CELL VOLUME 81.2 fL (80-100); MEAN CORPUSCULAR HEMOGLOBIN 25.6 pg (25-34); MEAN CORPUSCULAR HGB CONC 31.6 g/dl (32-36); MEAN PLATELET VOLUME 9.1 fL (7.4-10.4); PLATELET COUNT 799 K/uL (130-400); RED CELL DISTRIBUTION WIDTH CV 17.9 % (11.5-14.5); RED CELL DISTRIBUTION WIDTH SD 53.5 fL (36.4-46.3); WHITE BLOOD COUNT 25.27 K/uL (4.8-10.8)
[2018-05-27 12:40] LABS: BASO % 0.1 %; BASO ABS # 0.03 K/uL (0-0.2); EOS ABS # 0.01 K/uL (0-0.5); LYMPH % 7.5 %; MONO % 6.4 %; MONO ABS # 1.62 K/uL (0.11-0.59); NEUT % 83.6 %; NEUT ABS # 21.11 K/uL (1.4-6.5)
[2018-05-27] MEDS ORDERED: ADENOSINE IV SOLN 3 MG/ML 2 ML VIAL IV STA (12:42)
[2018-05-27] MEDS ORDERED: ADENOSINE IV SOLN 3 MG/ML 2 ML VIAL ONE (12:42)
[2018-05-27] MEDS ORDERED: FUROSEMIDE 40 MG/4 ML VIAL IV STA (13:18)
[2018-05-27] MEDS ORDERED: MIDAZOLAM 125MG/250ML D5W 250 ML IV SCH (13:19)
[2018-05-27] MEDS ORDERED: PERFLUTREN LIPID MICROSPHERE (DEFINITY) IV ONE (13:26)
[2018-05-27] MEDS ORDERED: ASPIRIN 324 MG CHEW ONE (13:43)
[2018-05-27] MEDS: FENTANYL 1250MCG/250ML NSS 250 ML IV SCH (13:55)
[2018-05-27] MEDS ORDERED: METOPROLOL TARTRATE 1 MG/ML VIAL ONE (14:01)
[2018-05-27] MEDS: METOPROLOL TARTRATE 1 MG/ML VIAL IV. SCH ×2 (14:02→20:00)
--- NOTE | 2018-05-27 14:04 | DIAGNOSTIC IMAGING REPORT ---
CHEST ONE VIEW PORTABLE CLINICAL HISTORY: Central Line placement, ETT placed, pulmonary edema. COMPARISON STUDY: Chest radiograph May 27, 2018 11:27 AM. FINDINGS: The tip of the endotracheal tube is 2.6 cm above the manav. Tip of nasogastric tube is within the body of the stomach. Severe emphysema is noted as well as left apical cavitary opacity with volume loss. Dense right lower lung consolidation is noted. There are small bilateral pleural effusions. There is no pneumothorax. Left basilar opacity has developed. Tip of right internal jugular central line projects over the SVC. IMPRESSION: 1. Satisfactory positioning of endotracheal and nasogastric tubes. 2. Persistent dense right lower lung consolidation consistent pneumonia. Interval development of left basilar opacity which favors pneumonia. 3. No change in cavitary left upper lobe opacity with volume loss. 4. Severe emphysema. 5. No pneumothorax following placement of a right internal jugular central venous line. Electronically signed by: Jose Prieto M.D. 05/27/2018 2:02 PM Dictated Date/Time: 05/27/2018 1:59 PM
--- NOTE | 2018-05-27 14:30 | ECHOCARDIOGRAM REPORT ---
*NOTICE TO RECEIVING [employer] This information is strictly Confidential and protected under [place] law. [place] law prohibits you from making any further disclosure of this information unless further disclosure is expressly permitted by the written consent of the person to whom it pertains or is authorized by law. A general authorization for the release of medical or other information is not sufficient for this purpose. Hospital accepts no responsibility if the information is made available to any other person, INCLUDING THE PATIENT. Interpretation Summary * Name: BLADIMIR INTERIANO Study Date: 05/27/2018 01:08 PM BP: 149/107 mmHg * Patient Location: .MSICU\S\E107\S\1 HR: 145 * : 1945 (M/d/yyy) Gender: Male Height: 67 in * Age: 72 yrs Ethnicity: [place] Weight: 126 lb * Ordering Physician: Ayden Ling * Referring Physician: Self, Referred * Performed By: Kateryna Guthrie RDCS * * Reason For Study: CHF * BSA: 1.7 m2 * -- Conclusions -- * Left ventricular systolic function is severely reduced. * Compared to a study from 12/2017, the LV systolic function is worse. Procedure Details * A contrast injection of Definity was performed to improve assessment of LV function. * Contrast was injected into an intravenous site in the central line. * One vial of Definity ultrasound contrast was diluted in normal saline to a total volume of 10 ml. A total of '2' ml of solution was administered during imaging. * Lot # [id number] of Definity utilized for procedure. * Expiration date 1 MAY 03. * The attending nurse who injected the contrast agent was CUONG WHITEHEAD. Left Ventricle * The left ventricle is normal in size. * There is normal left ventricular wall thickness. * Left ventricular systolic function is severely reduced. * Ejection Fraction = 15-20%. * Severe global hypokinesis and akinesis of some segments with best function at the inferior base. Right Ventricle * The right ventricle is grossly normal size. * The right ventricular systolic function is normal. Atria * The left atrial size is normal. * Right atrial size is normal. Mitral Valve * The mitral valve is grossly normal. * Significant mitral regurgitation is absent. Tricuspid Valve * The tricuspid valve is not well visualized, but is grossly normal. Aortic Valve * The aortic valve is trileaflet. * Cannot exclude aortic valvular vegetation. * No hemodynamically significant valvular aortic stenosis. * There is no significant aortic regurgitation. Pulmonic Valve * The pulmonic valve is not well visualized. Pericardium/Pleural * Small pericardial effusion. Great Vessels * Normal inferior vena cava diameter and respiratory variation suggests normal central venous pressure. MMode 2D Measurements and Calculations IVSd 0.97 cm IVSs 1.1 cm LVIDd 4.9 cm LVIDs 4.5 cm LVPWd 0.77 cm LVPWs 0.85 cm IVS/LVPW 1.3 FS 9.2 % EDV(Teich) 114.7 ml ESV(Teich) 91.4 ml EF(Teich) 20.3 % EDV(cubed) 120.2 ml ESV(cubed) 89.8 ml EF(cubed) 25.2 % % IVS thick 10.2 % % LVPW thick 10.2 % LV mass(C)d 147.8 grams LV mass(C)dI 89.0 grams/m\S\2 LV mass(C)s 143.4 grams LV mass(C)sI 86.3 grams/m\S\2 SV(Teich) 23.3 ml SI(Teich) 14.0 ml/m\S\2 SV(cubed) 30.3 ml SI(cubed) 18.3 ml/m\S\2 Ao root diam 4.1 cm Ao root area 13.3 cm\S\2 LA dimension 2.5 cm LA/Ao 0.60 LVAd ap4 29.8 cm\S\2 LVLd ap4 8.4 cm EDV(MOD-sp4) 87.9 ml EDV(sp4-el) 89.3 ml LVAs ap4 26.0 cm\S\2 LVLs ap4 7.7 cm ESV(MOD-sp4) 72.3 ml ESV(sp4-el) 74.3 ml EF(MOD-sp4) 17.8 % EF(sp4-el) 16.8 % SV(MOD-sp4) 15.6 ml SI(MOD-sp4) 9.4 ml/m\S\2 SV(sp4-el) 15.0 ml SI(sp4-el) 9.0 ml/m\S\2 Doppler Measurements and Calculations MV E max simran 105.7 cm/sec MV dec time 0.10 sec Ao V2 max 80.2 cm/sec Ao max PG 2.6 mmHg Ao max PG (full) -0.53 mmHg LV V1 max PG 3.1 mmHg LV V1 max 88.1 cm/sec
--- NOTE | 2018-05-27 14:30 | Critical Care Consultation ---
Critical Care Consultation Date of Consultation: May 27, 2018. Attending Physician: Christiano Woo D.O. Reason for Consultation: Acute respiratory failure. History of Present Illness Dear Dr. Woo: Thank you for your kind referral Mrs. Aden to critical care service. 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 No recurrence was reported. The patient also had a history of coronary artery disease status post stenting, I am not sure which vessels he was stented before, on 2 occasions one in 2005 and the other one on 2010. The patient was maintained on Plavix and aspirin, assuming the stents were not drug eluted, the patient has to stop his Plavix in March 2018 due to recurrent massive epistaxis. He has been off antiplatelet therapy ever since. The patient recently underwent a bronchoscopy which did not reveal any evidence of aspergillosis or recurrence of malignancy. The patient also has a history of COPD, diabetes, hypertension. The patient was admitted to the hospital and was found to be anemic with hematocrit of 20, he received 1 unit of blood in which he was noted to be in severe respiratory distress. The patient was coughing up since last night according to the with blood-tinged sputum. I was asked to evaluate him as the patient was placed on the BiPAP on 100%. He continued to have difficulty maintaining his respiratory rate as well as his O2 saturation. The patient was transferred to the ICU immediately and the patient was in severe acute respiratory distress requiring immediate intubation. Bronchoscopy, central line and a line was placed and the findings on the bronchoscopy were consistent with pulmonary vascular congestion and pulmonary edema. The patient also had CVP placed which showed 14. It is difficult to interpret given the patient history of significant lung disease. The patient was sedated currently with fentanyl and Versed drip, given Lasix and beta-veronica in addition to aspirin, his EKG initially showed SVT with a rate of 160, after adenosine, it was mixed with SVT, did not respond to cardioversion 2 doses at 150 and 200 J responded to beta-veronica. The patient did not have any fever, although his white count went up to 25,000 which is likely related to stress. BNP and troponin as well as pro calcitonin were pending although the first troponin was slightly elevated. Family History FH: anemia FH: myocardial infarction Hypertension Type II diabetes mellitus Social History Smoking Status: Former Smoker Alcohol Use: occasionally (rare beer) Drug Use: none Marital Status: Housing Status: lives with family Occupation Status: retired Allergies Coded Allergies: No Known Allergies (Verified , 04/17/18) Home Medications Scheduled Amoxicillin & Pot Clavulanate (Augmentin 875-125 mg), 1 TAB PO BID Ferrous Sulfate (Kp Ferrous Sulfate), 1 TAB PO BID Finasteride (Proscar), 5 MG PO QAM Glipizide (Glipizide Er), 5 MG PO QAM Glipizide (Glipizide Er), 2.5 MG PO QPM Ipratropium-Albuterol (Combivent Respimat), 1 PUFFS INH QID Metformin Hcl (Glucophage), 1,000 MG PO BID Metoprolol Succ (Toprol Xl) (Toprol-Xl), 25 MG PO QAM Multiple Vitamins W/ Minerals (Centrum Silver Adult 50+), 1 TAB PO QAM Simvastatin (Zocor), 40 MG PO QPM Current Inpatient Medications Current Inpatient Medications Medications (Trade) Dose Ordered Sig/Vianey Route Start Time Stop Time Status Last Admin Dose Admin Acetaminophen (Tylenol Tab) 650 mg Q4H PRN PO 05/26/18 15:00 06/25/18 14:59 05/27/18 05:18 650 MG Magnesium Hydroxide (Milk Of Magnesia Susp) 30 ml Q6H PRN PO 05/26/18 15:00 06/25/18 14:59 Ondansetron HCl (Zofran Inj) 4 mg Q6H PRN IV 05/26/18 15:00 06/25/18 14:59 Insulin Aspart (novoLOG ASPART) SLIDING SCALE If C... ACHS SC 05/26/18 16:00 06/25/18 15:59 05/27/18 11:52 6 UNITS Glucose (Glucose 40% Gel) 15-30 GRAMS 15 GRAMS... UD PRN PO 05/26/18 15:00 06/25/18 14:59 Glucose (Glucose Chew Tab) 4-8 Tablets 4 Tabl... UD PRN PO 05/26/18 15:00 06/25/18 14:59 Dextrose (Dextrose 50% 50ML Syringe) 25-50ML 25ML FOR ... UD PRN IV 05/26/18 15:00 06/25/18 14:59 Glucagon (Glucagon Inj) 1 mg UD PRN SQ 05/26/18 15:00 06/25/18 14:59 Carbohydrates (Carbohydrates For Hypoglycemia) 15-30 GRAMS 15 grams if BSG 54-69... UD PRN PO 05/26/18 15:00 06/25/18 14:59 Finasteride (Proscar Tab) 5 mg QAM PO 05/27/18 08:00 06/26/18 08:59 05/27/18 08:42 5 MG Metoprolol Succinate (Toprol Xl Tab) 25 mg QAM PO 05/27/18 08:00 06/26/18 08:59 05/27/18 08:44 25 MG Multivitamins/ Minerals (Multivitamin W/ Minerals Tab) 1 tab QAM PO 05/27/18 08:00 06/26/18 08:59 05/27/18 08:43 1 TAB Simvastatin (Zocor Tab) 40 mg QPM PO 05/26/18 21:00 06/25/18 20:59 05/26/18 20:48 40 MG Ferrous Sulfate (Feosol Tab) 325 mg BIDM PO 05/26/18 17:00 06/25/18 17:59 05/27/18 08:43 325 MG Albuterol/ Ipratropium (Duoneb) 3 ml QIDR INH 05/26/18 16:00 06/25/18 15:59 05/27/18 11:12 3 ML Vancomycin HCl (Consult) 1 ea UD PRN N/A 05/26/18 15:00 06/25/18 14:59 Piperacillin Sod/ Tazobactam Sod 3.375 gm/Dextrose 115 ml @ 28.75 mls/ hr Q8H IV 05/26/18 20:00 06/02/18 19:59 05/27/18 03:42 28.75 MLS/HR Miscellaneous Information (Consult) 1 ea UD PRN N/A 05/26/18 15:00 06/25/18 14:59 Sodium Chloride 1,000 ml @ 75 mls/hr [id number] IV 05/26/18 17:00 06/25/18 16:59 05/27/18 03:46 75 MLS/HR Vancomycin HCl 750 mg/Sodium Chloride 265 ml @ 125 mls/hr Q16H IV 05/27/18 06:00 06/03/18 05:59 05/27/18 05:30 125 MLS/HR Heparin Sodium (Porcine) (Heparin 100 Unit/ml 5ml Flush) 5 ml PRN PRN IV 05/27/18 01:30 06/26/18 01:29 Insulin Human Regular (Insulin IV Infusion Protocol) 1 ea Q15M N/A 05/27/18 11:52 06/26/18 11:51 Insulin Aspart (novoLOG ASPART) SLIDING SCALE PCHS SC 05/27/18 12:17 06/26/18 12:59 UNV Miscellaneous (Insulin Protocol Goal Range (Other)) 1 ea ONE N/A 05/27/18 12:00 06/26/18 11:59 UNV Norepinephrine Bitartrate 8 mg/ Dextrose 508 ml @ 0 mls/hr Q0M IV 05/27/18 13:30 06/26/18 13:29 Midazolam HCl 250 ml @ 0 mls/hr Q0M IV 05/27/18 13:19 06/26/18 13:18 05/27/18 13:55 2 MLS/HR Fentanyl Citrate 250 ml @ 5 mls/hr Q24H IV 05/27/18 13:30 06/10/18 13:29 05/27/18 13:55 5 MLS/HR Metoprolol Tartrate (Lopressor Iv) 2.5 mg Q6H IV. 05/27/18 14:00 06/26/18 13:59 Aspirin (Aspirin Chew) 81 mg DAILY PO 05/28/18 09:00 06/27/18 08:59 UNV Review of Systems Review of system was not obtainable as the patient was in severe respiratory distress, according to the , the patient has been having cough with blood- tinged sputum. Shortness of breath has been worsening since admission in the past 36 hours. The patient did not have any chest pain to report, no nausea or vomiting, no abdominal pain. Physical Exam Date Time Temp Pulse Resp B/P (MAP) Pulse Ox O2 Delivery O2 Flow Rate FiO2 05/27/18 13:30 36.2 145 28 89 10.0 05/27/18 12:45 100 05/27/18 12:00 36.2 145 28 149/107 89 05/27/18 11:35 140 99 100 05/27/18 11:30 36.2 118 28 182/104 86 10.0 05/27/18 11:12 112 24 85 Nasal Cannula 4.0 05/27/18 10:39 36.2 89 107/66 96 4.0 05/27/18 10:00 36.3 96 24 101/68 96 4.0 05/27/18 09:45 36.3 89 105/66 92 4.0 05/27/18 09:30 36.2 101 24 105/63 87 4.0 05/27/18 08:09 36.4 123 22 132/75 (94) 90 4.0 05/27/18 08:00 Nasal Cannula 4.0 05/27/18 07:09 113 22 90 Nasal Cannula 4.0 05/27/18 05:04 107 85 91 Nasal Cannula 2.0 05/27/18 03:57 36.3 95 18 105/67 (80) 97 Nasal Cannula 3.0 05/27/18 00:30 Nasal Cannula 2.0 05/26/18 23:14 36.4 100 18 97/61 (73) 91 Nasal Cannula 2.0 05/26/18 19:25 110 85 85 Room Air 05/26/18 15:56 89 20 137/84 94 05/26/18 15:15 93 Room Air 05/26/18 14:32 93 21 120/67 93 Room Air General Appearance: severe distress ENT: other (Poor dentals) Respiratory: rales Cardiovasular: other (Tachycardia refractory to cardioversion.) Abdomen: non tender, no guarding Lower Extremities: no edema Neuro: other (Confused and becoming more somnolent.) Laboratory Results Last 24 Hours Test 05/26/18 14:28 05/26/18 15:34 05/26/18 16:51 05/26/18 20:09 Lactic Acid Level 2.9 mmol/L 1.9 mmol/L Bedside Glucose 134 mg/dl 285 mg/dl Test 05/27/18 06:27 05/27/18 07:58 05/27/18 11:31 05/27/18 11:51 White Blood Count 9.72 K/uL Red Blood Count 2.68 M/uL Hemoglobin 6.5 g/dL Hematocrit 21.0 % Mean Corpuscular Volume 78.4 fL Mean Corpuscular Hemoglobin 24.3 pg Mean Corpuscular Hemoglobin Concent 31.0 g/dl RDW Standard Deviation 53.7 fL RDW Coefficient of Variation 18.8 % Platelet Count 444 K/uL Mean Platelet Volume 8.7 fL Sodium Level 137 mmol/L Potassium Level 4.2 mmol/L Chloride Level 108 mmol/L Carbon Dioxide Level 19 mmol/L Anion Gap 10.0 mmol/L Blood Urea Nitrogen 18 mg/dl Creatinine 0.78 mg/dl Est Creatinine Clear Calc Drug Dose 67.2 ml/min Estimated GFR () 103.1 Estimated GFR (Non- 88.9 BUN/Creatinine Ratio 22.8 Random Glucose 247 mg/dl Calcium Level 8.1 mg/dl Bedside Glucose 317 mg/dl 335 mg/dl Troponin I 0.048 ng/ml Test 05/27/18 12:01 White Blood Count 25.27 K/uL Red Blood Count 3.24 M/uL Hemoglobin 8.3 g/dL Hematocrit 26.3 % Mean Corpuscular Volume 81.2 fL Mean Corpuscular Hemoglobin 25.6 pg Mean Corpuscular Hemoglobin Concent 31.6 g/dl Platelet Count 799 K/uL Mean Platelet Volume 9.1 fL Neutrophils (%) (Auto) 83.6 % Lymphocytes (%) (Auto) 7.5 % Monocytes (%) (Auto) 6.4 % Eosinophils (%) (Auto) 0.0 % Basophils (%) (Auto) 0.1 % Neutrophils # (Auto) 21.11 K/uL Lymphocytes # (Auto) 1.90 K/uL Monocytes # (Auto) 1.62 K/uL Eosinophils # (Auto) 0.01 K/uL Basophils # (Auto) 0.03 K/uL RDW Standard Deviation 53.5 fL RDW Coefficient of Variation 17.9 % Immature Granulocyte % (Auto) 2.4 % Immature Granulocyte # (Auto) 0.60 K/uL Red Blood Cell Morphology Unremarkable Arterial Blood pH 7.13 Arterial Blood Partial Pressure CO2 43 mmHg Arterial Blood Partial Pressure O2 75 mm/Hg Arterial Blood HCO3 14 mmol/L Arterial Blood Oxygen Saturation 88.9 % Arterial Blood Base Excess -14.5 mEq/L Arterial Blood Gas Delivery 60% BIPAP Lester Test POS Procalcitonin 0.16 ng/ml Diagnostic Results Labs are consistent with elevated white count however troponin was also positive. Chest x-ray showed volume loss on the left, large infiltrate mainly in the right lower right middle lobe, although the report mentioned pneumonia, the appearance on the bronchoscopy showed mainly pulmonary vascular congestion only. Per calcitonin and BNP are still pending. Repeat troponin is also pending. Reviewed previous imaging and previous findings on the bronchoscopy from March 2018 which showed significant volume loss in the left upper lobe due to chronic cavity, previous bronchoscopy did not show any recurrence of malignancy. Assessment & Plan 1. Acute hypoxic respiratory failure. 2. Acute pulmonary edema, the patient has significant cardiac history including previous history of VA status post 2 stents placed in 2005 and 2010, the patient was supposed to be on Plavix and was taken off all antiplatelets therapy in March 2018 due to recurrence massive epistaxis. 3. History of coronary artery disease however previous echocardiogram did not show any cardiomyopathy. 4. Small cell lung CA status post chemoradiation, with remnant left upper lobe cavity. 5. 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 No recurrence. 6. COPD, gold level 3, home O2 on as needed in addition to bronchodilators. 7. Diabetes. 8. Hypertension. Plan: 1. Intubate the patient. 2. Change the vent settings to pressure control and increase the rate, accomplish tidal volume approximately 400 which is approximately 7 mL/kg dose. 3. Ventilator associated pneumonia bundle. 4. Aspirin. 5. Lopressor low dose at 2.5 mg IV every 6 hours. 6. Bronchoscopy was done emergently due to the sort of hemoptysis, no evidence of hemoptysis, the patient had significant pulmonary edema. Specimen was obtained also from the left upper lobe and sent for microbiology and fungal culture. 7. Central line was placed for CVP monitoring, the CVP was 14. It was difficult to interpret as the patient was on 10 of PEEP and had a history also of cor pulmonale. 8. This is less likely to be transfusion reaction acute lung injury as the patient was developing symptoms as he was transfused. 9. Although right lower lobe infiltrate cannot represent pneumonia, I believe it is all pulmonary edema with asymmetry due to the patient's volume loss in the left upper lobe with hyperperfusion state to the right pulmonary artery. Awaiting pro calcitonin and BNP. 10. A line was placed in the right radial, dictated separately. 11. Discussed with the family in details. 12. Appreciate Dr. Woo input. 13. Stat echocardiogram was done at the bedside, results are pending. 14. Case discussed with Dr. Chaudhry, appreciate his evaluation. 15. I will defer further evaluation such as PCI to cardiology and family preference. 16. Diuresis was given. 17. Daily labs. 18. Trending troponin. 19. GI and DVT prophylaxis. 20. Cardioversion was provided twice and did not result in restoring sinus rhythm. 21. I will continue to follow the CVP as it is only modality I have in our institution for hemodynamic monitoring. 22. Discussed with the staff and multiple disciplines, appreciate all input. 23. Glucose control. Critical care time spent with the patient excluding procedures 60 minutes.
--- NOTE | 2018-05-27 14:35 | Procedure Note ---
Procedure Note Procedure Date May 27, 2018. Procedure Description Procedure Name: Intubation Procedure time out: side/site verified, patient ID confirmed, correct procedure Consent obtained: emergent consent implied Performed by: attending Indications: therapeutic Contraindications: none Description: Intubation was done emergently as the patient was in acute respiratory failure and start losing his consciousness. The procedure was done emergently without any consent. The patient was placed in supine position and Ambu bag for 2 minutes with O2 sat above than 90%. The patient was induced with total of 12 mg of etomidate and 50 mg of rocuronium in addition to starting the patient on fentanyl and Versed afterward. 4. MAC and #8 ET tube was used, frothy secretions were noted around the vocal cords. All suctioned to clear. Dated tube was placed with one attempt. End-tidal CO2 was yellow, equal breath sounds bilaterally, the ET tube was secured to 3 cm above the manav. No immediate complication. Complications: none Patient tolerated procedure: well
--- NOTE | 2018-05-27 14:38 | Procedure Note ---
Procedure Note Procedure Date May 27, 2018. Procedure Description Procedure Name: Emergent cardioversion. Procedure time out: side/site verified, patient ID confirmed, correct procedure Consent obtained: emergent consent implied Performed by: attending Indications: therapeutic Contraindications: none Description: The patient was at rapid rhythm with a heart rate in the range of 160, narrow complex, blood pressure was borderline. Patient was in acute pulmonary edema and respiratory distress and just intubated. The procedure was done emergently and no consent was obtained. The patient was already been sedated with fentanyl 100 mics in addition to Versed earlier. The patient monitored in the ICU bed 7, the patient was intubated, and cardioverted with 2 doses of 150 J and 200 J respectively with 3 minutes apart. The pads were placed on the patient. Recording was started. After the first cardioversion shock the patient remains in rapid SVT, repeat cardioversion with 200 J did not reverse his rhythm. Patient received adenosine as well with 6 mg which showed occasional P waves with likely SVT rhythm. Refractory to cardioversion. Patient started on Lopressor which slowed down his heart rate. No immediate complication. Patient tolerated the procedure very well. Complications: none Patient tolerated procedure: well
--- NOTE | 2018-05-27 14:41 | Procedure Note ---
Procedure Note Procedure Date May 27, 2018. Procedure Description Procedure Name: Central line placement, the patient has only one Port-A-Cath access and in respiratory distress requiring placement of central line. Procedure time out: side/site verified, patient ID confirmed, correct procedure Consent obtained: emergent consent implied Performed by: attending Indications: diagnostic, therapeutic Contraindications: none Description: Central line placed in the right IJ anteriorly, indication as mentioned above. The patient was placed in supine position. Under strict sterile field using or style. The skin was prepped with chlorhexidine and injected with 5 mL 1% lidocaine. Using ultrasound, noted the IJ was visible, no collapsibility with respiration. The line was placed using Seldinger technique over a wire, no scalpel was used, only a dilator. The line was placed to 16 cm, all ports were flushed with normal saline, the line was secured with 2 sutures, covered with surgical dressing. Chest x-ray confirmed the tip of the catheter at the SVC, no pneumothorax, confirmed also the position of the ET tube 3 cm above the manav. The patient tolerated the procedure very well, no immediate complication. Complications: none Patient tolerated procedure: well
--- NOTE | 2018-05-27 14:42 | Procedure Note ---
Procedure Note Procedure Date May 27, 2018. Procedure Description Procedure Name: A line placement. Procedure time out: side/site verified, patient ID confirmed, correct procedure Consent obtained: emergent consent implied Performed by: attending Indications: diagnostic Contraindications: none Description: A line was placed in the right radial area, under strict sterile field, the skin was prepped with chlorhexidine, using Seldinger technique, the catheter was placed and connected to the transducer, consent was waived due to the emergency nature of this procedure, indication is the need for continuous blood pressure monitoring in a patient with acute pulmonary edema and non-ST elevation MT. The line was secured with 1 anchor suture, and covered with proper surgical dressing. A waves were noted on the monitor. Patient tolerated the procedure well. No immediate complication. Complications: none Patient tolerated procedure: well
--- NOTE | 2018-05-27 14:44 | Procedure Note ---
Procedure Note Procedure Date May 27, 2018. Procedure Description Procedure Name: Bronchoscopy. Procedure time out: side/site verified, patient ID confirmed, correct procedure Consent obtained: emergent consent implied Performed by: attending Indications: diagnostic, therapeutic Contraindications: none Description: Bronchoscopy was done at the bedside room 107 in ICU. In the cyst. The patient was already been intubated and sedated with fentanyl and propofol. The patient monitored throughout the entire procedure with ICU style. The patient had the bronchoscope done through #8 ET tube, using a blue adapter. The bronchoscope passed through the blue adapter through the ET tube into the tracheobronchial tree and the findings were as follows: 1. Large amount of frothy secretions from every segment and subsegment of the tracheobronchial tree consistent with diagnosis of pulmonary edema. Increased pulmonary vascular congestion. 2. Distorted airways in the left upper lobe due to previously known left upper lobe cavitary lesion. 3. Specimen was obtained with injection of 40 mL of saline and return back 25 mL and was sent for cultures including fungal. Due to the patient history of aspergillus fumigatus. 4. The ET tube was noted to be 3 cm above the manav. 5. No evidence of hemoptysis. 6. The findings are consistent with acute pulmonary edema. Patient tolerated the procedure very well, the bronchoscope was removed entirely , no immediate complication and no desaturation. Complications: none Patient tolerated procedure: well
[2018-05-27] MEDS: LEValbuterol HFA 15GM INHALER INH SCH ×2 (15:00→19:22)
[2018-05-27] MEDS ORDERED: LEVALBUTEROL 0.63MG/3 ML NEB INH SCH (15:00)
[2018-05-27] MEDS ORDERED: PHARMACY GLYCEMIC MGMT CONSULT PRN (15:14)
--- NOTE | 2018-05-27 15:27 | Cardiology Consultation ---
Cardiology Consultation Date of Consultation: May 27, 2018. Requesting Physician: Anuradha Reason for Consultation: Respiratory failure Pt evaluation today including: conversation w/ family, physical exam, chart review, lab review, review of studies, conversation w/ technical sales consultant, review of inpatient medication list History of Present Illness Patient is a 72-year-old gentleman with an extensive medical history to include small cell lung cancer, coronary artery disease, ischemic cardiomyopathy, Aspergillus pneumonia, severe COPD and other problems who was admitted to [facility] yesterday with symptoms of progressive dyspnea and weakness. Patient appears to have been struggling with some breathing difficulty for a few weeks. He has been treated on outpatient basis for pneumonia without notable improvement. Yesterday was admitted for treatment of suspected pneumonia and also found to be severely anemic. This morning the patient did undergo a transfusion in shortly afterwards became acutely short of breath. He was notably tachycardic and eventually required intubation in the intensive care unit. Patient is currently intubated and sedated and history was provided by the nursing staff, medical Staff and the patient's According to the patient's he has been weak and short of breath for some time. He also has a nonproductive cough. He is a fairly sedentary individual but has not curtailed his usual activities recently. His did not describe overt orthopnea but the patient does sleep in a somewhat upright position. She has not noticed any worsening edema. He has not been describing dizziness or lightheadedness. He has not been describing palpitations. He has not described chest pain. He has had epistaxis recently and that was felt to be a contributor to his anemia. His Plavix was stopped as result and he has not had further episodes. His states that he eats very little but does not have overt gastrointestinal complaints. His stool has been black but he has been on iron supplementation. Past Medical/Surgical History Small cell lung cancer, left upper lobe status post chemotherapy and radiation Severe COPD, bullous Aspergillus Coronary artery disease PCI to the right coronary artery x2 02/2006 PCI to the circumflex and obtuse marginal 12/2007 Anterolateral myocardial infarction with PCI to the 1st diagonal 11/2007 Hypertension Hyperlipidemia Ischemic cardiomyopathy Diabetes mellitus Peripheral vascular disease status post PCI of the right common femoral Anemia Benign prostatic hypertrophy Peptic ulcer disease Family History FH: anemia FH: myocardial infarction Hypertension Type II diabetes mellitus Noncontributory given his advanced age and current comorbidities Social History Smoking Status: Former Smoker History of Alcohol Use: No Previously employed by [employer] Review of Systems Respiratory: + cough, + sputum, + shortness of breath, + dyspnea on exertion, + dyspnea at rest, + hemoptysis This cannot be obtained as the patient is currently intubated and sedated All Other Systems: Reviewed and Negative Allergies Coded Allergies: No Known Allergies (Verified , 04/17/18) Medications Current Inpatient Medications Medications (Trade) Dose Ordered Sig/Vianey Route Start Time Stop Time Status Last Admin Dose Admin Acetaminophen (Tylenol Tab) 650 mg Q4H PRN PO 05/26/18 15:00 06/25/18 14:59 05/27/18 05:18 650 MG Magnesium Hydroxide (Milk Of Magnesia Susp) 30 ml Q6H PRN PO 05/26/18 15:00 06/25/18 14:59 Ondansetron HCl (Zofran Inj) 4 mg Q6H PRN IV 05/26/18 15:00 06/25/18 14:59 Insulin Aspart (novoLOG ASPART) SLIDING SCALE If C... ACHS SC 05/26/18 16:00 06/25/18 15:59 05/27/18 11:52 6 UNITS Glucose (Glucose 40% Gel) 15-30 GRAMS 15 GRAMS... UD PRN PO 05/26/18 15:00 06/25/18 14:59 Glucose (Glucose Chew Tab) 4-8 Tablets 4 Tabl... UD PRN PO 05/26/18 15:00 06/25/18 14:59 Dextrose (Dextrose 50% 50ML Syringe) 25-50ML 25ML FOR ... UD PRN IV 05/26/18 15:00 06/25/18 14:59 Glucagon (Glucagon Inj) 1 mg UD PRN SQ 05/26/18 15:00 06/25/18 14:59 Carbohydrates (Carbohydrates For Hypoglycemia) 15-30 GRAMS 15 grams if BSG 54-69... UD PRN PO 05/26/18 15:00 06/25/18 14:59 Finasteride (Proscar Tab) 5 mg QAM PO 05/27/18 08:00 06/26/18 08:59 05/27/18 08:42 5 MG Metoprolol Succinate (Toprol Xl Tab) 25 mg QAM PO 05/27/18 08:00 06/26/18 08:59 05/27/18 08:44 25 MG Multivitamins/ Minerals (Multivitamin W/ Minerals Tab) 1 tab QAM PO 05/27/18 08:00 06/26/18 08:59 05/27/18 08:43 1 TAB Simvastatin (Zocor Tab) 40 mg QPM PO 05/26/18 21:00 06/25/18 20:59 05/26/18 20:48 40 MG Ferrous Sulfate (Feosol Tab) 325 mg BIDM PO 05/26/18 17:00 06/25/18 17:59 05/27/18 08:43 325 MG Vancomycin HCl (Consult) 1 ea UD PRN N/A 05/26/18 15:00 06/25/18 14:59 Piperacillin Sod/ Tazobactam Sod 3.375 gm/Dextrose 115 ml @ 28.75 mls/ hr Q8H IV 05/26/18 20:00 06/02/18 19:59 05/27/18 14:23 28.75 MLS/HR Miscellaneous Information (Consult) 1 ea UD PRN N/A 05/26/18 15:00 06/25/18 14:59 Vancomycin HCl 750 mg/Sodium Chloride 265 ml @ 125 mls/hr Q16H IV 05/27/18 06:00 06/03/18 05:59 05/27/18 05:30 125 MLS/HR Heparin Sodium (Porcine) (Heparin 100 Unit/ml 5ml Flush) 5 ml PRN PRN IV 05/27/18 01:30 06/26/18 01:29 Insulin Human Regular (Insulin IV Infusion Protocol) 1 ea Q15M N/A 05/27/18 11:52 06/26/18 11:51 05/27/18 14:50 1 EA Insulin Aspart (novoLOG ASPART) SLIDING SCALE PCHS SC 05/27/18 12:17 06/26/18 12:59 UNV Miscellaneous (Insulin Protocol Goal Range (Other)) 1 ea ONE N/A 05/27/18 12:00 06/26/18 11:59 UNV Norepinephrine Bitartrate 8 mg/ Dextrose 508 ml @ 0 mls/hr Q0M IV 05/27/18 13:30 06/26/18 13:29 Midazolam HCl 250 ml @ 0 mls/hr Q0M IV 05/27/18 13:19 06/26/18 13:18 05/27/18 13:55 2 MLS/HR Fentanyl Citrate 250 ml @ 5 mls/hr Q24H IV 05/27/18 13:30 06/10/18 13:29 05/27/18 13:55 5 MLS/HR Metoprolol Tartrate (Lopressor Iv) 2.5 mg Q6H IV. 05/27/18 14:00 06/26/18 13:59 05/27/18 14:02 2.5 MG Aspirin (Aspirin Chew) 81 mg DAILY PO 05/28/18 09:00 06/27/18 08:59 Levalbuterol (Xopenex Hfa Inhaler) 4 puffs Q6R INH 05/27/18 15:00 06/26/18 14:59 Pantoprazole Sodium 40 mg/ Syringe 10 ml @ 5 mls/min DAILY@, IV 05/27/18 21:00 06/26/18 20:59 Heparin Sodium (Porcine) (Heparin Sq 5000 Unit/0.5ml) 5,000 unit Q12 SQ 05/27/18 21:00 06/26/18 20:59 Miscellaneous Information (Consult Glycemic Management Pharmacy) 1 ea NOW STAT N/A 05/27/18 14:31 05/27/18 14:32 UNV Physical Exam Vital Signs Past 12 Hours Date Time Temp Pulse Resp B/P (MAP) Pulse Ox O2 Delivery O2 Flow Rate FiO2 05/27/18 14:15 80 05/27/18 14:02 128 117/61 05/27/18 13:35 100 05/27/18 13:30 36.2 145 28 89 10.0 05/27/18 12:45 100 05/27/18 12:00 36.2 145 28 149/107 89 05/27/18 11:35 140 99 100 05/27/18 11:30 36.2 118 28 182/104 86 10.0 05/27/18 11:12 112 24 85 Nasal Cannula 4.0 05/27/18 10:39 36.2 89 107/66 96 4.0 05/27/18 10:00 36.3 96 24 101/68 96 4.0 05/27/18 09:45 36.3 89 105/66 92 4.0 05/27/18 09:30 36.2 101 24 105/63 87 4.0 05/27/18 08:09 36.4 123 22 132/75 (94) 90 4.0 05/27/18 08:00 Nasal Cannula 4.0 05/27/18 07:09 113 22 90 Nasal Cannula 4.0 05/27/18 05:04 107 85 91 Nasal Cannula 2.0 05/27/18 03:57 36.3 95 18 105/67 (80) 97 Nasal Cannula 3.0 Patient was intubated and sedated HEENT: Pupils are equal Neuro: Could not be assessed due to his sedated status Neck: Patient's neck is supple. He has palpable carotid pulses bilaterally without bruits on auscultation. The thyroid is not enlarged. Lungs: Clear to auscultation bilaterally. He has good air movement without use of accessory muscles. No rales wheezes or rhonchi. Cardiac: Heart demonstrates a regular rate and rhythm. Normal S1 and S2. No murmurs on examination. Pulses: The patient has palpable radial pulses bilaterally that are equal in intensity Extremities: There was no evidence of hypoperfusion. There is no cyanosis or clubbing. There is no edema. Skin: I did not appreciate any rashes on examination today. Data Laboratory Results: Last 24 Hours Test 05/26/18 15:34 05/26/18 16:51 05/26/18 20:09 05/27/18 06:27 Lactic Acid Level 1.9 mmol/L Bedside Glucose 134 mg/dl 285 mg/dl White Blood Count 9.72 K/uL Red Blood Count 2.68 M/uL Hemoglobin 6.5 g/dL Hematocrit 21.0 % Mean Corpuscular Volume 78.4 fL Mean Corpuscular Hemoglobin 24.3 pg Mean Corpuscular Hemoglobin Concent 31.0 g/dl RDW Standard Deviation 53.7 fL RDW Coefficient of Variation 18.8 % Platelet Count 444 K/uL Mean Platelet Volume 8.7 fL Sodium Level 137 mmol/L Potassium Level 4.2 mmol/L Chloride Level 108 mmol/L Carbon Dioxide Level 19 mmol/L Anion Gap 10.0 mmol/L Blood Urea Nitrogen 18 mg/dl Creatinine 0.78 mg/dl Est Creatinine Clear Calc Drug Dose 67.2 ml/min Estimated GFR () 103.1 Estimated GFR (Non- 88.9 BUN/Creatinine Ratio 22.8 Random Glucose 247 mg/dl Calcium Level 8.1 mg/dl Test 05/27/18 07:58 05/27/18 11:31 05/27/18 11:51 05/27/18 12:01 Bedside Glucose 317 mg/dl 335 mg/dl Troponin I 0.048 ng/ml White Blood Count 25.27 K/uL Red Blood Count 3.24 M/uL Hemoglobin 8.3 g/dL Hematocrit 26.3 % Mean Corpuscular Volume 81.2 fL Mean Corpuscular Hemoglobin 25.6 pg Mean Corpuscular Hemoglobin Concent 31.6 g/dl Platelet Count 799 K/uL Mean Platelet Volume 9.1 fL Neutrophils (%) (Auto) 83.6 % Lymphocytes (%) (Auto) 7.5 % Monocytes (%) (Auto) 6.4 % Eosinophils (%) (Auto) 0.0 % Basophils (%) (Auto) 0.1 % Neutrophils # (Auto) 21.11 K/uL Lymphocytes # (Auto) 1.90 K/uL Monocytes # (Auto) 1.62 K/uL Eosinophils # (Auto) 0.01 K/uL Basophils # (Auto) 0.03 K/uL RDW Standard Deviation 53.5 fL RDW Coefficient of Variation 17.9 % Immature Granulocyte % (Auto) 2.4 % Immature Granulocyte # (Auto) 0.60 K/uL Red Blood Cell Morphology Unremarkable Arterial Blood pH 7.13 Arterial Blood Partial Pressure CO2 43 mmHg Arterial Blood Partial Pressure O2 75 mm/Hg Arterial Blood HCO3 14 mmol/L Arterial Blood Oxygen Saturation 88.9 % Arterial Blood Base Excess -14.5 mEq/L Arterial Blood Gas Delivery 60% BIPAP Lester Test POS Procalcitonin 0.16 ng/ml Test 05/27/18 14:04 05/27/18 14:46 Blood Gas Sample Site Art Line Bedside Blood Gas pH (LAB) 7.21 Bedside Blood Gas pCO2 (LAB) 48 mmHg Bedside Blood Gas pO2 (LAB) 138 mmHg Bedside Blood Gas HCO3 (LAB) 19 meq/L Bedside Blood Gas Total CO2 20 mEq/l Bedside Blood Gas Base Excess (LAB) -9.0 meq/L Bedside Blood Gas O2 Saturation 98.0 % Lester Test NA Oxygen Delivery Device Ventilator Bedside Oxygen Rate (breaths/min) 24 Bedside FiO2 100 % Blood Gas PEEP 10 Bedside Glucose 372 mg/dl Imaging: Chest x-ray demonstrating left upper lobe lung lesion. EKG: Sinus tachycardia with old inferior myocardial infarction Telemetry reviewed: Sinus tachycardia transitioning to sinus rhythm Echocardiogram performed reveals severely reduced LV systolic function Assessment & Plan 1. Acute decompensated left ventricular systolic failure: I think this is most likely explanation for the patient's decompensation. He has severely reduced LV systolic function. It is possible that some of his symptoms leading up to his admission were more related to pulmonary edema that an infectious process. It is possible that the blood transfusion resulted in worsening pulmonary edema which caused sudden decompensation. He is not appear to be edematous on exam. However, he did respond quite well to positive pressure ventilation and diuresis. At this time he is on significant supplemental oxygen but oxygenating well. He is affecting a good urine output and his heart rate is much lower. I would continue efforts at diuresis monitoring his hemodynamics and electrolytes closely. Hopefully we he will be able to be weaned from the ventilator within the next 24-48 hours. He does have significant underlying primary pulmonary disease which may make this more difficult. 2. Ischemic cardiomyopathy: This is longstanding. He did have better LV function in December of this year. However, prior to that he was known to have severely reduced LV systolic function. Why this has worsened now versus a few months ago is unclear. Also, the chronicity of his reduced LV function is unclear. Certainly an intercurrent coronary event could have caused a change. The is not aware of any recent episodes of chest discomfort consistent with high heart attack. We will need to consider coronary angiography at some point the patient's condition improves. Any intervention however may be complicated by his recent bleeding and persistent anemia. Certainly any percutaneous intervention would require re-initiation of dual anti-platelet therapy. Patient was on a beta-veronica as an outpatient and advised to take an Charles inhibitor. However, it is unclear if he ever re-initiated his Charles inhibitor. These therapies will be re-initiated prior to discharge depending on his clinical condition. 3. Coronary artery disease: Patient has not had symptoms of angina or coronary insufficiency leading up to this event. Unclear if he did have an acute coronary syndrome in the recent past resulting in worsening LV function. As noted above, we will need to consider angiography at some point. If and when this is accomplished depends primarily on his clinical progress and co morbidities. 4. Tachycardia: This appears to have been a sinus tachycardia likely related to his acute decompensation. Her rate is much improved now with improvement of his clinical condition overall.
[2018-05-27] MEDS ORDERED: NovoLIN R BOLUS FROM BAG IV ONE (16:00)
[2018-05-27] MEDS: INSULIN REGULAR 250 UNITS in SODIUM CHLORIDE 0.9% 250ML 250 ML IV SCH (16:05)
[2018-05-27] MEDS: ASPIRIN 81 MG CHEW PO SCH (17:18)
[2018-05-27] MEDS ORDERED: FUROSEMIDE 40 MG/4 ML VIAL IV ONE (18:30)
[2018-05-27] MEDS: SIMVASTATIN 40 MG TAB PO SCH (21:00)
[2018-05-27] MEDS ORDERED: HEPARIN SOD 5000 UNIT/0.5 ML CARP SQ SCH (21:00)
[2018-05-27] MEDS: PANTOprazole INJ 40 MG in SYRINGE 0 ML IV SCH (21:08)
[2018-05-27] MEDS: DEXTROSE 50% 50 ML SYR IV PRN (21:44)
[2018-05-27] MEDS ORDERED: FUROSEMIDE INJ 40 MG in SYRINGE 0 ML IV SCH (21:45)
[2018-05-27 22:03] LABS: HEMATOCRIT 26.4 % (42-52); HEMOGLOBIN 8.6 g/dL (14.0-18.0)
[2018-05-27 22:40] LABS: CALCIUM 8.2 mg/dl (8.5-10.1); CREATININE 1.14 mg/dl (0.60-1.40); POTASSIUM 4.3 mmol/L (3.5-5.1)
[2018-05-28] VITALS (48 sets, daily range): BP systolic 81–133; BP diastolic 36–53; PULSE 76–130; TEMP 35.5–37.6; O2SAT 94–100; BMI 19.8
[2018-05-28] MEDS: NOREPINEPHRINE BIT INJ 8 MG in DEXTROSE 5% 500ML 500 ML IV SCH ×2 (00:52→17:26)
[2018-05-28] MEDS: LEValbuterol HFA 15GM INHALER INH SCH ×4 (01:40→19:48)
[2018-05-28] MEDS: METOPROLOL TARTRATE 1 MG/ML VIAL IV. SCH (02:00)
[2018-05-28] MEDS: PIPERACILL/TAZOBAC IV 3.375 GM in DEXTROSE 5% 100ML 100 ML IV SCH (04:13)
[2018-05-28 04:57] LABS: HEMATOCRIT 26.5 % (42-52); HEMOGLOBIN 8.8 g/dL (14.0-18.0); MEAN CELL VOLUME 79.1 fL (80-100); MEAN CORPUSCULAR HEMOGLOBIN 26.3 pg (25-34); MEAN CORPUSCULAR HGB CONC 33.2 g/dl (32-36); MEAN PLATELET VOLUME 8.8 fL (7.4-10.4); PLATELET COUNT 528 K/uL (130-400); RED CELL DISTRIBUTION WIDTH CV 17.4 % (11.5-14.5); RED CELL DISTRIBUTION WIDTH SD 50.4 fL (36.4-46.3); WHITE BLOOD COUNT 23.09 K/uL (4.8-10.8)
[2018-05-28 05:25] LABS: CREATININE 1.17 mg/dl (0.60-1.40); PHOSPHORUS 3.6 mg/dl (2.5-4.9); POTASSIUM 3.9 mmol/L (3.5-5.1)
[2018-05-28 05:36] LABS: BASO % 0.2 %; BASO ABS # 0.04 K/uL (0-0.2); EOS ABS # 0.01 K/uL (0-0.5); IG# 0.39 K/uL (0.00-0.02); LYMPH % 4.8 %; MONO % 5.2 %; MONO ABS # 1.19 K/uL (0.11-0.59); NEUT % 88.1 %; NEUT ABS # 20.36 K/uL (1.4-6.5)
[2018-05-28 07:03] LABS: HEMOGLOBIN A1C 7.6 % (4.5-5.6)
[2018-05-28 07:14] LABS: HEMOGLOBIN A1C 6.7 % (4.5-5.6)
--- NOTE | 2018-05-28 07:21 | DIAGNOSTIC IMAGING REPORT ---
SINGLE VIEW CHEST CLINICAL HISTORY: Tube placement. FINDINGS: An AP, portable, upright chest radiograph is compared to performed earlier the same day 05/27/2018 and correlated with chest CT dated 03/11/2018. The examination is degraded by portable technique and patient rotation. A left subclavian central venous infusion port is again noted. An enteric tube, an endotracheal tube, and a right internal jugular central venous catheter are unchanged in position. The heart is top normal for projection and there is atherosclerotic calcification of the thoracic aorta. Advanced emphysema and chronic interstitial thickening are similar to previous. Left apical consolidation/fibrosis is unchanged from prior examinations. Airspace consolidation is again seen at the right lung base, typical in appearance for pneumonia. Pelvic consolidation is also seen at the left lung base. Small pleural effusions are identified There is no pneumothorax. The skeletal structures are osteopenic. The bony thorax appears intact. IMPRESSION: 1. Stable lines and tubes. 2. Bibasilar airspace consolidation is unchanged from earlier today and remains typical in appearance for pneumonia. Radiographic follow-up to resolution is recommended. 3. Small pleural effusions. 4. Advanced emphysema. 5. Left apical fibrosis/consolidation is similar in appearance to prior examinations. Electronically signed by: Demario Geller M.D. 05/28/2018 7:19 AM Dictated Date/Time: 05/28/2018 7:16 AM
[2018-05-28] MEDS: INSULIN ASPART 100 UNITS/ML 3 ML PEN SC SCH ×4 (08:00→21:00)
[2018-05-28] MEDS: FENTANYL 1250MCG/250ML NSS 250 ML IV SCH ×2 (08:08→23:08)
[2018-05-28] MEDS ORDERED: HEPARIN IV LOW DOSE NO BOLUS SCH (09:01)
[2018-05-28] MEDS ORDERED: POTASSIUM CHLORIDE 20 MEQ/15 ML UDC GT ONE (09:15)
--- NOTE | 2018-05-28 09:40 | DIAGNOSTIC IMAGING REPORT ---
CHEST ONE VIEW PORTABLE CLINICAL HISTORY: Inubated, frothy sputum COMPARISON STUDY: 05/27/2018 FINDINGS: Endotracheal tube 3.5 cm with the manav. Slight improvement in aeration right base. All remaining tubes and lines are unchanged in position. Unchanging pleural thickening and opacification changes left pulmonary apex. IMPRESSION: Endotracheal tube 3.5 cm above the manav. Slight improvement in aeration right base. All remaining components of the study are unchanged. The above report was generated using voice recognition software. It may contain grammatical, syntax or spelling errors. Electronically signed by: Ezekiel Collier M.D. 05/28/2018 9:39 AM Dictated Date/Time: 05/28/2018 9:37 AM
[2018-05-28 09:46] LABS: HEMATOCRIT 28.7 % (42-52); HEMOGLOBIN 9.3 g/dL (14.0-18.0); MEAN CELL VOLUME 79.5 fL (80-100); MEAN CORPUSCULAR HEMOGLOBIN 25.8 pg (25-34); MEAN CORPUSCULAR HGB CONC 32.4 g/dl (32-36); MEAN PLATELET VOLUME 8.7 fL (7.4-10.4); NUCLEATED RED BLOOD CELL ABS 0.03 K/uL (0-0); PLATELET COUNT 473 K/uL (130-400); RED CELL DISTRIBUTION WIDTH CV 17.6 % (11.5-14.5); RED CELL DISTRIBUTION WIDTH SD 50.8 fL (36.4-46.3); WHITE BLOOD COUNT 20.86 K/uL (4.8-10.8)
[2018-05-28 10:02] LABS: INR 1.3 (0.9-1.1); PTT PATIENT 31.3 SECONDS (21.0-31.0)
[2018-05-28] MEDS: SODIUM CHLORIDE 0.9% IV SCH ×2 (10:12→22:29)
[2018-05-28] MEDS: VORICONAZOLE IV SCH ×2 (10:12→22:29)
[2018-05-28] MEDS: HEPARIN 25,000 UNIT/500ML D5W 500 ML IV SCH (10:14)
[2018-05-28] MEDS: FINASTERIDE 5 MG TAB PO SCH (10:21)
[2018-05-28] MEDS: ASPIRIN 81 MG CHEW PO SCH (10:22)
[2018-05-28] MEDS: PANTOprazole INJ 40 MG in SYRINGE 0 ML IV SCH ×2 (10:24→21:10)
[2018-05-28] MEDS: MAGNESIUM SULFATE 1GM / D5W 100 ML IV SCH ×3 (10:25→12:55)
[2018-05-28] MEDS: MULTIVITAMINS W/MINERALS 15ML UDP PO SCH (10:48)
--- NOTE | 2018-05-28 10:54 | Progress Note ---
Progress Note Date of Service May 28, 2018. Progress Note ID Consult Dictated #[id number] A/P: 1. Pna -Recent culture with rare aspergillus, unclear significance -Spoke with ICU, will treat with vori -thank you
--- NOTE | 2018-05-28 11:04 | Cardiology Follow-Up ---
Subjective Date of Service: May 28, 2018. Pt evaluation today including: conversation w/ patient, conversation w/ family , physical exam, chart review, lab review, review of studies, review of inpatient medication list History of Present Illness The patient continues to be intubated and sedated. The time is interview he was undergoing a transfusion. It appears he was somewhat agitated last night and attempted to extubate himself. He has subsequently been more heavily sedated. Social History Smoking Status: Former Smoker History of Alcohol Use: No Review of Systems Respiratory: + cough, + sputum, + shortness of breath, + dyspnea on exertion, + dyspnea at rest, + hemoptysis This cannot be obtained as the patient is currently intubated and sedated Objective Vital Signs Past 12 Hours Date Time Temp Pulse Resp B/P (MAP) Pulse Ox O2 Delivery O2 Flow Rate FiO2 05/28/18 10:25 37.4 109 22 133/48 96 05/28/18 10:10 37.4 79 19 113/51 94 05/28/18 07:15 30 05/28/18 06:01 36.9 76 20 110/38 (62) 98 Mechanical Ventilator 35 05/28/18 06:00 36.9 83 20 104/50 (68) 98 Mechanical Ventilator 35 05/28/18 05:31 36.9 83 20 100/48 (65) 97 Mechanical Ventilator 35 05/28/18 05:18 35 05/28/18 05:01 36.9 83 20 94/48 (63) 97 Mechanical Ventilator 35 05/28/18 05:00 36.9 83 20 93/46 (62) 97 Mechanical Ventilator 35 05/28/18 04:01 36.0 81 20 96/45 (62) 98 Mechanical Ventilator 35 05/28/18 04:00 36.0 84 20 93/44 (60) 98 Mechanical Ventilator 35 05/28/18 03:31 36.0 86 20 95/46 (62) 98 Mechanical Ventilator 35 05/28/18 03:01 36.1 89 20 94/46 (62) 97 Mechanical Ventilator 35 05/28/18 03:00 36.1 92 20 93/46 (62) 97 Mechanical Ventilator 35 05/28/18 02:10 40 05/28/18 02:01 37.6 85 24 103/39 (60) 96 Mechanical Ventilator 30 05/28/18 02:00 37.6 87 24 89/45 (60) 96 Mechanical Ventilator 30 05/28/18 01:40 40 05/28/18 01:31 37.6 86 24 90/46 (61) 100 Mechanical Ventilator 30 05/28/18 01:01 37.6 88 24 86/45 (59) 100 Mechanical Ventilator 30 05/28/18 01:00 37.6 87 24 90/46 (61) 100 Mechanical Ventilator 30 05/28/18 00:01 102 24 82/43 (56) 100 05/28/18 00:00 36.3 101 24 81/42 (55) 100 05/27/18 23:52 110 24 60/24 (36) 97 05/27/18 23:31 116 24 81/40 (54) 98 05/27/18 23:30 50 05/27/18 23:01 116 25 82/56 (65) 96 05/27/18 23:00 116 26 86/40 (55) 96 Last Recorded Weight-Kilograms: 57.200 Intake & Output 8-Hour Column 05/28/18 05/29/18 05/29/18 16:00 00:00 08:00 Intake Total 50 ml Balance 50 ml 24-Hour Column 05/29/18 08:00 Intake Total 50 ml Balance 50 ml Physical Exam Patient was intubated and sedated HEENT: Pupils are equal Neuro: Could not be assessed due to his sedated status Neck: Patient's neck is supple. He has palpable carotid pulses bilaterally without bruits on auscultation. The thyroid is not enlarged. Lungs: Clear to auscultation bilaterally. He has good air movement without use of accessory muscles. No rales wheezes or rhonchi. Cardiac: Heart demonstrates a regular rate and rhythm. Normal S1 and S2. No murmurs on examination. Pulses: The patient has palpable radial pulses bilaterally that are equal in intensity Extremities: There was no evidence of hypoperfusion. There is no cyanosis or clubbing. There is no edema. Skin: I did not appreciate any rashes on examination today. Data Laboratory Results: Last 24 Hours Test 05/27/18 11:31 05/27/18 11:51 05/27/18 12:01 05/27/18 14:04 Bedside Glucose 335 mg/dl Troponin I 0.048 ng/ml White Blood Count 25.27 K/uL Red Blood Count 3.24 M/uL Hemoglobin 8.3 g/dL Hematocrit 26.3 % Mean Corpuscular Volume 81.2 fL Mean Corpuscular Hemoglobin 25.6 pg Mean Corpuscular Hemoglobin Concent 31.6 g/dl Platelet Count 799 K/uL Mean Platelet Volume 9.1 fL Neutrophils (%) (Auto) 83.6 % Lymphocytes (%) (Auto) 7.5 % Monocytes (%) (Auto) 6.4 % Eosinophils (%) (Auto) 0.0 % Basophils (%) (Auto) 0.1 % Neutrophils # (Auto) 21.11 K/uL Lymphocytes # (Auto) 1.90 K/uL Monocytes # (Auto) 1.62 K/uL Eosinophils # (Auto) 0.01 K/uL Basophils # (Auto) 0.03 K/uL RDW Standard Deviation 53.5 fL RDW Coefficient of Variation 17.9 % Immature Granulocyte % (Auto) 2.4 % Immature Granulocyte # (Auto) 0.60 K/uL Red Blood Cell Morphology Unremarkable Arterial Blood pH 7.13 Arterial Blood Partial Pressure CO2 43 mmHg Arterial Blood Partial Pressure O2 75 mm/Hg Arterial Blood HCO3 14 mmol/L Arterial Blood Oxygen Saturation 88.9 % Arterial Blood Base Excess -14.5 mEq/L Arterial Blood Gas Delivery 60% BIPAP Lester Test POS NA Procalcitonin 0.16 ng/ml Blood Gas Sample Site Art Line Bedside Blood Gas pH (LAB) 7.21 Bedside Blood Gas pCO2 (LAB) 48 mmHg Bedside Blood Gas pO2 (LAB) 138 mmHg Bedside Blood Gas HCO3 (LAB) 19 meq/L Bedside Blood Gas Total CO2 20 mEq/l Bedside Blood Gas Base Excess (LAB) -9.0 meq/L Bedside Blood Gas O2 Saturation 98.0 % Oxygen Delivery Device Ventilator Bedside Oxygen Rate (breaths/min) 24 Bedside FiO2 100 % Blood Gas PEEP 10 Test 05/27/18 14:46 05/27/18 17:04 05/27/18 17:08 05/27/18 18:34 Bedside Glucose 372 mg/dl 321 mg/dl 243 mg/dl Blood Gas Sample Site Art Line Bedside Blood Gas pH (LAB) 7.32 Bedside Blood Gas pCO2 (LAB) 36 mmHg Bedside Blood Gas pO2 (LAB) 116 mmHg Bedside Blood Gas HCO3 (LAB) 19 meq/L Bedside Blood Gas Total CO2 20 mEq/l Bedside Blood Gas Base Excess (LAB) -7.0 meq/L Bedside Blood Gas O2 Saturation 98.0 % Lester Test NA Oxygen Delivery Device Ventilator Bedside Oxygen Rate (breaths/min) 24 Bedside FiO2 80 % Blood Gas PEEP 10 Test 05/27/18 19:46 05/27/18 20:59 05/27/18 21:19 05/27/18 21:39 Bedside Glucose 179 mg/dl 122 mg/dl 116 mg/dl 114 mg/dl Test 05/27/18 21:50 05/27/18 22:02 05/27/18 23:14 05/28/18 00:12 Hemoglobin 8.6 g/dL Hematocrit 26.4 % Sodium Level 137 mmol/L Potassium Level 4.3 mmol/L Chloride Level 106 mmol/L Carbon Dioxide Level 23 mmol/L Anion Gap 8.0 mmol/L Blood Urea Nitrogen 23 mg/dl Creatinine 1.14 mg/dl Est Creatinine Clear Calc Drug Dose 46.0 ml/min Estimated GFR () 73.0 Estimated GFR (Non- 63.0 BUN/Creatinine Ratio 20.5 Random Glucose 219 mg/dl Calcium Level 8.2 mg/dl Magnesium Level 1.8 mg/dl Troponin I 10.800 ng/ml Bedside Glucose 206 mg/dl 150 mg/dl Bedside Glucose (other) 135 mg/dl Test 05/28/18 01:30 05/28/18 02:13 05/28/18 02:25 05/28/18 03:16 Bedside Glucose (other) 137 mg/dl 130 mg/dl 129 mg/dl Blood Gas Sample Site R Radial Bedside Blood Gas pH (LAB) 7.49 Bedside Blood Gas pCO2 (LAB) 24 mmHg Bedside Blood Gas pO2 (LAB) 65 mmHg Bedside Blood Gas HCO3 (LAB) 18 meq/L Bedside Blood Gas Total CO2 19 mEq/l Bedside Blood Gas Base Excess (LAB) -6.0 meq/L Bedside Blood Gas O2 Saturation 95.0 % Lester Test NA Oxygen Delivery Device Ventilator Bedside Oxygen Rate (breaths/min) 24 Bedside FiO2 30 % Blood Gas PEEP 10 Test 05/28/18 04:13 05/28/18 04:41 05/28/18 05:10 05/28/18 06:12 Bedside Glucose (other) 134 mg/dl 143 mg/dl 149 mg/dl White Blood Count 23.09 K/uL Red Blood Count 3.35 M/uL Hemoglobin 8.8 g/dL Hematocrit 26.5 % Mean Corpuscular Volume 79.1 fL Mean Corpuscular Hemoglobin 26.3 pg Mean Corpuscular Hemoglobin Concent 33.2 g/dl Platelet Count 528 K/uL Mean Platelet Volume 8.8 fL Neutrophils (%) (Auto) 88.1 % Lymphocytes (%) (Auto) 4.8 % Monocytes (%) (Auto) 5.2 % Eosinophils (%) (Auto) 0.0 % Basophils (%) (Auto) 0.2 % Neutrophils # (Auto) 20.36 K/uL Lymphocytes # (Auto) 1.10 K/uL Monocytes # (Auto) 1.19 K/uL Eosinophils # (Auto) 0.01 K/uL Basophils # (Auto) 0.04 K/uL RDW Standard Deviation 50.4 fL RDW Coefficient of Variation 17.4 % Immature Granulocyte % (Auto) 1.7 % Immature Granulocyte # (Auto) 0.39 K/uL Spherocytes 1+ Sodium Level 136 mmol/L Potassium Level 3.9 mmol/L Chloride Level 106 mmol/L Carbon Dioxide Level 19 mmol/L Anion Gap 11.0 mmol/L Blood Urea Nitrogen 23 mg/dl Creatinine 1.17 mg/dl Est Creatinine Clear Calc Drug Dose 44.8 ml/min Estimated GFR () 70.8 Estimated GFR (Non- 61.1 BUN/Creatinine Ratio 19.6 Random Glucose 137 mg/dl Estimated Average Glucose 146 mg/dl Hemoglobin A1c 6.7 % Calcium Level 8.0 mg/dl Phosphorus Level 3.6 mg/dl Magnesium Level 1.6 mg/dl Troponin I 14.700 ng/ml Test 05/28/18 08:55 05/28/18 09:27 05/28/18 09:37 Bedside Glucose (other) 163 mg/dl Random Cortisol 8.46 mcg/dl White Blood Count 20.86 K/uL Red Blood Count 3.61 M/uL Hemoglobin 9.3 g/dL Hematocrit 28.7 % Mean Corpuscular Volume 79.5 fL Mean Corpuscular Hemoglobin 25.8 pg Mean Corpuscular Hemoglobin Concent 32.4 g/dl RDW Standard Deviation 50.8 fL RDW Coefficient of Variation 17.6 % Platelet Count 473 K/uL Mean Platelet Volume 8.7 fL Nucleated RBC Absolute Count (auto) 0.03 K/uL Nucleated Red Blood Cells % 0.1 % Prothrombin Time 14.0 SECONDS Prothromb Time International Ratio 1.3 Activated Partial Thromboplast Time 31.3 SECONDS Partial Thromboplastin Ratio 1.2 Imaging: Perhaps improving aeration on x-ray this morning Telemetry reviewed: Sinus rhythm and sinus tachycardia Assessment and Plan 1. Acute decompensated left ventricular systolic failure: While a record of his net output suggests little improvement, clinically he is doing much better. He did receive an extra dose of Lasix last evening with a blood transfusion. My intention was to attempt more diuresis today with Lasix, but he has just been initiated on dobutamine and seems to be affecting a good diuresis. I think we can simply monitor his output on the inotrope and give Lasix later if needed. 2. Ischemic cardiomyopathy: Worse currently that was a few months ago. When this changed is unclear. Currently too ill for standard medical therapy, but at some point we will need to get him on optimal medical regimen for improvement. 3. Coronary artery disease: He does have elevated cardiac biomarkers. Unclear if his decompensation was related to an acute coronary syndrome or not. My feeling is that was likely related to volume overload from the blood. Chest pain did not seem to be a feature of his decompensation. His EKG was relatively benign at the time of his decompensation. It is very likely that the elevation in markers was related to some fixed obstructive disease and ischemia in the setting of his acute decompensation. Once his clinical condition improves we will consider repeat coronary evaluation. This could be complicated by concerns over epistaxis or possibly occult gastrointestinal bleeding. His Plavix was recently stopped due to concerns over severe epistaxis..
--- NOTE | 2018-05-28 11:12 | INFECT. DISEASE CONSULTATION ---
DATE OF CONSULTATION: 05/28/2018 HISTORY OF PRESENT ILLNESS: This is a 72-year-old gentleman who was admitted to the hospital on the with worsening shortness of breath. His family is at the bedside and provides his history. He was recently started on Augmentin by his primary care physician some days prior to hospitalization; however, he did not have any improvement in his symptoms and was subsequently admitted to the hospital. He was placed empirically on vancomycin and Zosyn for suspected pneumonia. He had worsening respiratory distress which required transfer to the ICU and intubation. He is currently sedated on the ventilator during my examination. He has been afebrile since admission. He was found to have a hemoglobin of 6 and was subsequently transfused. His white blood cell count has been increasing and is 23 today. Blood cultures were ordered in the ER and are negative to date. He did undergo a bronchoscopy yesterday at the time of intubation. Routine cultures are negative. A fungal smear is negative. Chest x-rays have been consistent with pneumonia. He was recently hospitalized in late March for the same. At that time, he had a sputum culture which was negative for routine bacteria; however, this became positive for rare Aspergillus on 06 of May. His states that he was treated with a 7-day course of an antifungal medicine from his pulmonary doctor. She is unable to recall the name of the medication, but states that he did finish it to completion. Infectious diseases is now consulted for ongoing treatment of the Aspergillus that grew in March. I did speak with the residence counselor and they will be initiating antifungal treatment today. He has been afebrile. REVIEW OF SYSTEMS: I am unable to obtain any additional review of systems secondary to intubation, but per the family, he has not had any hemoptysis at home. He was not having fevers, but was having worsening shortness of breath. PAST MEDICAL HISTORY: Significant for COPD, type 2 diabetes, hypertension, hyperlipidemia, BPH, pneumonia, lung cancer and peptic ulcer disease. PAST SURGICAL HISTORY: Unremarkable. FAMILY HISTORY: Noncontributory. SOCIAL HISTORY: Significant for history of tobacco use. He occasionally drinks beer. There is no drug use. He is and lives with his family. ALLERGIES: There are no known drug allergies. MEDICATIONS: Iron, Voriconazole, subQ heparin, aspirin, dobutamine, Protonix, insulin, Xopenex, norepinephrine, fentanyl, multivitamins, Zocor, Tylenol, milk of magnesia. PHYSICAL EXAMINATION: VITAL SIGNS: He is afebrile, pulse 79, respiratory rate 19, blood pressure 113/51, oxygen saturation is 98% on 35% FIO2. He is sedated on the ventilator. GENERAL: He is cachectic appearing. SKIN: Without rash. HEART: Regular. LUNGS: Decreased bilaterally. ABDOMEN: Nondistended. EXTREMITIES: There is no edema. LABORATORY STUDIES: CBC today, white blood cell count 20.8, hemoglobin 9.3, platelets 473. Chemistry panel: Sodium 136, potassium 3.9, chloride 106, bicarbonate 19, BUN 23, creatinine 1.1, glucose 137. Troponin 14.7. Aspergillus antibodies are pending. Beta glucan is pending. Blood cultures from the 11th are negative. Bronchoscopy culture is negative. Fungal smear is negative. Chest x-ray done this morning shows slight improvement in aeration. ASSESSMENT AND PLAN: Sputum culture with Aspergillus, unclear of significance. A short trial of antifungals could be initiated as no bacterial source of infection has yet to be identified. Thank you for this consultation.
--- NOTE | 2018-05-28 13:58 | Pharmacy Progress Note ---
Pharmacy Glycemic Short Note 2 Date of Service May 28, 2018. OUTPATIENT ANTIDIABETIC REGIMEN: * Metformin 1gm PO BID * Glipizide ER 2.5mg PO BID * A1c = 6.7% ASSESSMENT: * Type 2 diabetic admitted anemia and hypoxemic respiratory failure, pneumonia suspected based upon CXR, pulmonary edema seen on bronchoscopy * Pt remains intubated, requiring continuous infusions of fentanyl/midazolam for sedation, norepi infusion for pressure support and dobutamine being added today for low EF, likely element of cardiogenic shock. Troponin on the rise, NSTEMI suspected * IV insulin infusion per protocol started yesterday for severe hyperglycemia * BSGs down to goal range overnight * Insulin gtt infusing at 0.5unit/hr this AM * Given multiple significant stressors, including IV pressor use would recommend continuing w/ IV insulin infusion due ease of titration and inconsistent SQ absorption while hypotensive and on pressors. PLAN FOR INPATIENT GLYCEMIC CONTROL: * Hold outpatient oral diabetes medications * Continue IV insulin infusion but widen goal range to 120 - 180 mg/dL PLAN FOR DISCHARGE: * to be determined
[2018-05-28] MEDS ORDERED: INSULIN PROTOCOL GOAL RANGE ONE (14:00)
[2018-05-28 14:11] LABS: HEMATOCRIT 29.8 % (42-52); HEMOGLOBIN 9.7 g/dL (14.0-18.0)
--- NOTE | 2018-05-28 15:38 | Palliative Care Consultation ---
Consultation Date of Consultation: May 28, 2018. Requesting Physician: Dr. Nick Attending Physician: Dr. Woo Reason for Consultation: Goals of care History of Present Illness This 72 year old male patient with PMH small cell lung cancer s/p chemo/XRT to [facility], aspergillus infection, CAD, stenting, maintained on ASA and Plavix, stopped Plavix March 2018 due to severe epistaxis, and others listed below, presented to the hospital with severe respiratory distress. Patient was dx with pneumonia that was seen on an outpatient PET scan recently. He was started on Augmentin at the suggestion of pulmonary given history of success with this abx with a recent pneumonia. Patient was suggested to be admitted at that time, however he declined. He has been on abx x4 days. He started having worsening BEE with most any activity. Patient was anemic upon admission, lowest hgb 6.5, hct 21. He received blood transfusion. Patient continued to decompensate and went into acute respiratory distress requiring intubation. He is now in ICU, intubated and sedated. He is on abx and antifungals, requiring norepinephrine to maintain BP, troponin elevated-- peaked at 14. Cardiology following. Echocardiogram shows LV failure with EF 15-20%. CXR shows advanced emphysema, bilateral pleural effusions, left apical fibrosis/consolidation, bibasilar airspace consolidation. Patient is currently full code. Palliative care is consulted to assist in providing support to family with medical decision making and to discuss goals fo care. I met with the patient, his Chantal, and his daughter along with dr. Nick in room 107. Patient is sedated and intubated-- obtunded. Dr. Nick discussed in detail about patient's medical condition to the and daughter. They verbalized understanding. We discussed code status, and given patient's multiple medical conditions as well as PMH, Chantal and daughter agree that he should be DNR. For now, continue on with full treatment in hopes of recovery and for patient to be able to participate in long-term goals discussion. Past Medical/Surgical History Medical History: Small cell lung cancer s/p chemo/XRT Aspergillus infection CAD s/p stenting COPD DM Htn Social History Smoking Status: Former Smoker History of Alcohol Use: No Drug Use: none Marital Status: Housing Status: lives with family Occupation Status: retired Review of Systems unable to obtain due to obtundation- ventilated and sedated Allergies Coded Allergies: No Known Allergies (Verified , 04/17/18) Medications Current Inpatient Medications Medications (Trade) Dose Ordered Sig/Vianey Route Start Time Stop Time Status Last Admin Dose Admin Acetaminophen (Tylenol Tab) 650 mg Q4H PRN PO 05/26/18 15:00 06/25/18 14:59 05/27/18 05:18 650 MG Magnesium Hydroxide (Milk Of Magnesia Susp) 30 ml Q6H PRN PO 05/26/18 15:00 06/25/18 14:59 Glucose (Glucose 40% Gel) 15-30 GRAMS 15 GRAMS... UD PRN PO 05/26/18 15:00 06/25/18 14:59 Glucose (Glucose Chew Tab) 4-8 Tablets 4 Tabl... UD PRN PO 05/26/18 15:00 06/25/18 14:59 Dextrose (Dextrose 50% 50ML Syringe) 25-50ML 25ML FOR ... UD PRN IV 05/26/18 15:00 06/25/18 14:59 05/27/18 21:44 25 ML Glucagon (Glucagon Inj) 1 mg UD PRN SQ 05/26/18 15:00 06/25/18 14:59 Carbohydrates (Carbohydrates For Hypoglycemia) 15-30 GRAMS 15 grams if BSG 54-69... UD PRN PO 05/26/18 15:00 06/25/18 14:59 Finasteride (Proscar Tab) 5 mg QAM PO 05/27/18 08:00 06/26/18 08:59 05/27/18 08:42 5 MG Multivitamins/ Minerals (Multivitamin W/ Minerals Tab) 1 tab QAM PO 05/27/18 08:00 06/26/18 08:59 05/27/18 08:43 1 TAB Simvastatin (Zocor Tab) 40 mg QPM PO 05/26/18 21:00 06/25/18 20:59 05/26/18 20:48 40 MG Ferrous Sulfate (Feosol Tab) 325 mg BIDM PO 05/26/18 17:00 06/25/18 17:59 05/27/18 08:43 325 MG Vancomycin HCl (Consult) 1 ea UD PRN N/A 05/26/18 15:00 06/25/18 14:59 Piperacillin Sod/ Tazobactam Sod 3.375 gm/Dextrose 115 ml @ 28.75 mls/ hr Q8H IV 05/26/18 20:00 06/02/18 19:59 05/28/18 04:13 28.75 MLS/HR Miscellaneous Information (Consult) 1 ea UD PRN N/A 05/26/18 15:00 06/25/18 14:59 Vancomycin HCl 750 mg/Sodium Chloride 265 ml @ 125 mls/hr Q16H IV 05/27/18 06:00 06/03/18 05:59 05/27/18 22:15 125 MLS/HR Heparin Sodium (Porcine) (Heparin 100 Unit/ml 5ml Flush) 5 ml PRN PRN IV 05/27/18 01:30 06/26/18 01:29 Insulin Aspart (novoLOG ASPART) [facility] 05/27/18 17:15 06/26/18 17:14 Norepinephrine Bitartrate 8 mg/ Dextrose 508 ml @ 0 mls/hr Q0M IV 05/27/18 13:30 06/26/18 13:29 05/28/18 00:52 32 MLS/HR Midazolam HCl 250 ml @ 0 mls/hr Q0M IV 05/27/18 13:19 06/26/18 13:18 05/27/18 13:55 2 MLS/HR Fentanyl Citrate 250 ml @ 5 mls/hr Q24H IV 05/27/18 13:30 06/10/18 13:29 05/28/18 08:08 20 MLS/HR Aspirin (Aspirin Chew) 81 mg DAILY PO 05/28/18 09:00 06/27/18 08:59 05/27/18 17:18 81 MG Levalbuterol (Xopenex Hfa Inhaler) 4 puffs Q6R INH 05/27/18 15:00 06/26/18 14:59 05/28/18 07:15 4 PUFFS Pantoprazole Sodium 40 mg/ Syringe 10 ml @ 5 mls/min DAILY@09,21 IV 05/27/18 21:00 06/26/18 20:59 05/27/18 21:08 5 MLS/MIN Miscellaneous Information (Consult Glycemic Management Pharmacy) 1 [facility] PRN N/A 05/27/18 15:14 06/26/18 15:13 Insulin Human Regular 250 units/ Sodium Chloride 252.5 ml @ 0 mls/hr Q24H IV 05/27/18 16:01 06/26/18 16:00 05/27/18 16:05 2.1 MLS/HR Heparin Sodium (Porcine) (Heparin 10 Unit/ ml 5 ml Flush) 5 ml PRN PRN FLUSH 05/28/18 00:15 06/27/18 00:14 Magnesium Sulfate 100 ml @ 100 mls/hr Q1H IV 05/28/18 08:53 05/28/18 11:52 Heparin Sodium/ Dextrose 1 ea Q30M N/A 05/28/18 09:01 06/27/18 09:00 Dobutamine HCl 250 ml @ 0 mls/hr Q0M PRN IV 05/28/18 09:00 06/27/18 08:59 Physical Exam Date Time Temp Pulse Resp B/P (MAP) Pulse Ox O2 Delivery O2 Flow Rate FiO2 05/28/18 07:15 30 05/28/18 06:01 36.9 76 20 110/38 (62) 98 Mechanical Ventilator 35 05/28/18 06:00 36.9 83 20 104/50 (68) 98 Mechanical Ventilator 35 05/28/18 05:31 36.9 83 20 100/48 (65) 97 Mechanical Ventilator 35 05/28/18 05:18 35 05/28/18 05:01 36.9 83 20 94/48 (63) 97 Mechanical Ventilator 35 05/28/18 05:00 36.9 83 20 93/46 (62) 97 Mechanical Ventilator 35 05/28/18 04:01 36.0 81 20 96/45 (62) 98 Mechanical Ventilator 35 05/28/18 04:00 36.0 84 20 93/44 (60) 98 Mechanical Ventilator 35 05/28/18 03:31 36.0 86 20 95/46 (62) 98 Mechanical Ventilator 35 05/28/18 03:01 36.1 89 20 94/46 (62) 97 Mechanical Ventilator 35 05/28/18 03:00 36.1 92 20 93/46 (62) 97 Mechanical Ventilator 35 05/28/18 02:10 40 05/28/18 02:01 37.6 85 24 103/39 (60) 96 Mechanical Ventilator 30 05/28/18 02:00 37.6 87 24 89/45 (60) 96 Mechanical Ventilator 30 05/28/18 01:40 40 05/28/18 01:31 37.6 86 24 90/46 (61) 100 Mechanical Ventilator 30 05/28/18 01:01 37.6 88 24 86/45 (59) 100 Mechanical Ventilator 30 05/28/18 01:00 37.6 87 24 90/46 (61) 100 Mechanical Ventilator 30 05/28/18 00:01 102 24 82/43 (56) 100 05/28/18 00:00 36.3 101 24 81/42 (55) 100 05/27/18 23:52 110 24 60/24 (36) 97 05/27/18 23:31 116 24 81/40 (54) 98 05/27/18 23:30 50 05/27/18 23:01 116 25 82/56 (65) 96 05/27/18 23:00 116 26 86/40 (55) 96 05/27/18 22:31 134 25 115/78 (90) 85 05/27/18 22:01 115 26 81/37 (52) 99 05/27/18 22:00 114 27 81/41 (54) 99 18 21:31 96 25 87/29 (48) 98 05/27/18 21:01 108 27 103/39 (60) 96 05/27/18 21:00 115 26 88/35 (52) 97 05/27/18 20:33 Mechanical Ventilator 50 05/27/18 20:33 50 05/27/18 20:15 108 24 95/47 (63) 05/27/18 20:00 36.3 106 27 100/33 (55) 96 05/27/18 19:31 117 27 93/35 (54) 94 05/27/18 19:22 50 05/27/18 19:00 119 28 86/39 (55) 93 18 18:45 119 31 101/41 (61) 93 05/27/18 18:31 146 29 148/89 (108) 91 05/27/18 18:30 119 40 157/46 (83) 93 18 18:27 130 23 90/39 (56) 98 18 18:19 60 05/27/18 18:15 115 31 92/46 (61) 99 818 18:01 114 29 89/46 (60) 99 Mechanical Ventilator 80 101/47 (65) 18 18:00 115 30 94/46 (62) 99 Mechanical Ventilator 80 818 18:00 36.4 115 30 94/46 99 18 17:42 116 30 86/64 (71) 18 17:30 36.2 115 30 95/47 99 818 17:30 115 30 95/47 (63) 99 Mechanical Ventilator 80 818 17:12 115 26 92/41 (58) 100 Mechanical Ventilator 80 05/27/18 17:00 116 31 100/37 (58) 99 Mechanical Ventilator 80 05/27/18 16:51 80 18 16:30 119 31 90/44 (59) 98 Mechanical Ventilator 80 05/27/18 16:01 90 32 90/66 (74) 95 Mechanical Ventilator 80 05/27/18 16:00 80 05/27/18 16:00 100 31 112/37 (62) 97 Mechanical Ventilator 80 05/27/18 16:00 Mechanical Ventilator 80 05/27/18 15:30 115 37 120/62 (81) 98 Mechanical Ventilator 80 05/27/18 15:01 36.4 111 35 121/46 (71) 05/27/18 15:01 111 25 121/46 (71) 94 101/72 (82) 05/27/18 15:00 113 05/27/18 15:00 32 116/58 (77) 98 Mechanical Ventilator 80 05/27/18 14:15 80 05/27/18 14:02 128 117/61 05/27/18 14:00 128 21 127/61 (83) 99 05/27/18 13:35 100 05/27/18 13:30 36.2 145 28 89 10.0 05/27/18 13:01 36.5 150 24 115/81 (92) 92 05/27/18 12:56 147 20 108/81 (90) 88 05/27/18 12:51 148 16 109/75 (86) 88 05/27/18 12:46 139 18 93/70 (78) 88 05/27/18 12:45 100 05/27/18 12:41 151 18 101/78 (86) 87 05/27/18 12:36 151 16 100/71 (81) 90 05/27/18 12:31 157 18 99/72 (81) 92 05/27/18 12:29 160 17 116/80 (92) 98 05/27/18 12:21 133/97 (109) 05/27/18 12:00 36.2 145 28 149/107 89 05/27/18 11:35 140 99 100 05/27/18 11:30 36.2 118 28 182/104 86 10.0 05/27/18 11:12 112 24 85 Nasal Cannula 4.0 05/27/18 10:39 36.2 89 107/66 96 4.0 05/27/18 10:00 36.3 96 24 101/68 96 4.0 05/27/18 09:45 36.3 89 105/66 92 4.0 05/27/18 09:30 36.2 101 24 105/63 87 4.0 General Appearance: no apparent distress, + thin ENT: + pertinent finding (ETT present) Neck: no JVD Cardiovascular: no edema, + tachycardia, + normal peripheral pulses Abdomen: normal bowel sounds, non tender, soft Neurologic/Psychiatric: + pertinent finding (obtunded/sedated) Skin: + pallor Laboratory Results Last 24 Hours Test 05/27/18 11:31 05/27/18 11:51 05/27/18 12:01 05/27/18 14:04 Bedside Glucose 335 mg/dl Troponin I 0.048 ng/ml White Blood Count 25.27 K/uL Red Blood Count 3.24 M/uL Hemoglobin 8.3 g/dL Hematocrit 26.3 % Mean Corpuscular Volume 81.2 fL Mean Corpuscular Hemoglobin 25.6 pg Mean Corpuscular Hemoglobin Concent 31.6 g/dl Platelet Count 799 K/uL Mean Platelet Volume 9.1 fL Neutrophils (%) (Auto) 83.6 % Lymphocytes (%) (Auto) 7.5 % Monocytes (%) (Auto) 6.4 % Eosinophils (%) (Auto) 0.0 % Basophils (%) (Auto) 0.1 % Neutrophils # (Auto) 21.11 K/uL Lymphocytes # (Auto) 1.90 K/uL Monocytes # (Auto) 1.62 K/uL Eosinophils # (Auto) 0.01 K/uL Basophils # (Auto) 0.03 K/uL RDW Standard Deviation 53.5 fL RDW Coefficient of Variation 17.9 % Immature Granulocyte % (Auto) 2.4 % Immature Granulocyte # (Auto) 0.60 K/uL Red Blood Cell Morphology Unremarkable Arterial Blood pH 7.13 Arterial Blood Partial Pressure CO2 43 mmHg Arterial Blood Partial Pressure O2 75 mm/Hg Arterial Blood HCO3 14 mmol/L Arterial Blood Oxygen Saturation 88.9 % Arterial Blood Base Excess -14.5 mEq/L Arterial Blood Gas Delivery 60% BIPAP Lester Test POS NA Procalcitonin 0.16 ng/ml Blood Gas Sample Site Art Line Bedside Blood Gas pH (LAB) 7.21 Bedside Blood Gas pCO2 (LAB) 48 mmHg Bedside Blood Gas pO2 (LAB) 138 mmHg Bedside Blood Gas HCO3 (LAB) 19 meq/L Bedside Blood Gas Total CO2 20 mEq/l Bedside Blood Gas Base Excess (LAB) -9.0 meq/L Bedside Blood Gas O2 Saturation 98.0 % Oxygen Delivery Device Ventilator Bedside Oxygen Rate (breaths/min) 24 Bedside FiO2 100 % Blood Gas PEEP 10 Test 05/27/18 14:46 05/27/18 17:04 05/27/18 17:08 05/27/18 18:34 Bedside Glucose 372 mg/dl 321 mg/dl 243 mg/dl Blood Gas Sample Site Art Line Bedside Blood Gas pH (LAB) 7.32 Bedside Blood Gas pCO2 (LAB) 36 mmHg Bedside Blood Gas pO2 (LAB) 116 mmHg Bedside Blood Gas HCO3 (LAB) 19 meq/L Bedside Blood Gas Total CO2 20 mEq/l Bedside Blood Gas Base Excess (LAB) -7.0 meq/L Bedside Blood Gas O2 Saturation 98.0 % Lester Test NA Oxygen Delivery Device Ventilator Bedside Oxygen Rate (breaths/min) 24 Bedside FiO2 80 % Blood Gas PEEP 10 Test 05/27/18 19:46 05/27/18 20:59 05/27/18 21:19 05/27/18 21:39 Bedside Glucose 179 mg/dl 122 mg/dl 116 mg/dl 114 mg/dl Test 05/27/18 21:50 05/27/18 22:02 05/27/18 23:14 05/28/18 00:12 Hemoglobin 8.6 g/dL Hematocrit 26.4 % Sodium Level 137 mmol/L Potassium Level 4.3 mmol/L Chloride Level 106 mmol/L Carbon Dioxide Level 23 mmol/L Anion Gap 8.0 mmol/L Blood Urea Nitrogen 23 mg/dl Creatinine 1.14 mg/dl Est Creatinine Clear Calc Drug Dose 46.0 ml/min Estimated GFR () 73.0 Estimated GFR (Non- 63.0 BUN/Creatinine Ratio 20.5 Random Glucose 219 mg/dl Calcium Level 8.2 mg/dl Magnesium Level 1.8 mg/dl Troponin I 10.800 ng/ml Bedside Glucose 206 mg/dl 150 mg/dl Bedside Glucose (other) 135 mg/dl Test 05/28/18 01:30 05/28/18 02:13 05/28/18 02:25 05/28/18 03:16 Bedside Glucose (other) 137 mg/dl 130 mg/dl 129 mg/dl Blood Gas Sample Site R Radial Bedside Blood Gas pH (LAB) 7.49 Bedside Blood Gas pCO2 (LAB) 24 mmHg Bedside Blood Gas pO2 (LAB) 65 mmHg Bedside Blood Gas HCO3 (LAB) 18 meq/L Bedside Blood Gas Total CO2 19 mEq/l Bedside Blood Gas Base Excess (LAB) -6.0 meq/L Bedside Blood Gas O2 Saturation 95.0 % Lester Test NA Oxygen Delivery Device Ventilator Bedside Oxygen Rate (breaths/min) 24 Bedside FiO2 30 % Blood Gas PEEP 10 Test 05/28/18 04:13 05/28/18 04:41 05/28/18 05:10 05/28/18 06:12 Bedside Glucose (other) 134 mg/dl 143 mg/dl 149 mg/dl White Blood Count 23.09 K/uL Red Blood Count 3.35 M/uL Hemoglobin 8.8 g/dL Hematocrit 26.5 % Mean Corpuscular Volume 79.1 fL Mean Corpuscular Hemoglobin 26.3 pg Mean Corpuscular Hemoglobin Concent 33.2 g/dl Platelet Count 528 K/uL Mean Platelet Volume 8.8 fL Neutrophils (%) (Auto) 88.1 % Lymphocytes (%) (Auto) 4.8 % Monocytes (%) (Auto) 5.2 % Eosinophils (%) (Auto) 0.0 % Basophils (%) (Auto) 0.2 % Neutrophils # (Auto) 20.36 K/uL Lymphocytes # (Auto) 1.10 K/uL Monocytes # (Auto) 1.19 K/uL Eosinophils # (Auto) 0.01 K/uL Basophils # (Auto) 0.04 K/uL RDW Standard Deviation 50.4 fL RDW Coefficient of Variation 17.4 % Immature Granulocyte % (Auto) 1.7 % Immature Granulocyte # (Auto) 0.39 K/uL Spherocytes 1+ Sodium Level 136 mmol/L Potassium Level 3.9 mmol/L Chloride Level 106 mmol/L Carbon Dioxide Level 19 mmol/L Anion Gap 11.0 mmol/L Blood Urea Nitrogen 23 mg/dl Creatinine 1.17 mg/dl Est Creatinine Clear Calc Drug Dose 44.8 ml/min Estimated GFR () 70.8 Estimated GFR (Non- 61.1 BUN/Creatinine Ratio 19.6 Random Glucose 137 mg/dl Estimated Average Glucose 146 mg/dl Hemoglobin A1c 6.7 % Calcium Level 8.0 mg/dl Phosphorus Level 3.6 mg/dl Magnesium Level 1.6 mg/dl Troponin I 14.700 ng/ml Test 05/28/18 08:55 Bedside Glucose (other) 163 mg/dl Assessment & Plan Palliative Performance Scale: 20 % Problem list: Respiratory failure Hx small cell lung cancer Acute decompensated heart failure with EF 15-20% Goals of care Palliative care recs: -As discussed with patient's and daughter, patient is now DNR. -Continue for now with full treatment in hopes of recovery from this episode. -Prognosis is quite guarded given his multi organ system failure. Family understands that full recovery may not be possible, but they'd like patient to participate in long-term goals of care conversation. -Will follow along and provide support. Thank you kindly for involving palliative team in the care of this patient and his family. Total time spent 70 minutes with >50% of time spent at bedside with patient and family discussing medical condition, goals of care, and CODE STATUS.
[2018-05-28] MEDS ORDERED: NURSING VERBAL MED ORDER ONE (15:45)
[2018-05-28] MEDS: INSULIN REGULAR 250 UNITS in SODIUM CHLORIDE 0.9% 250ML 250 ML IV SCH (15:50)
[2018-05-28] MEDS ORDERED: MAGNESIUM SULFATE 1GM / D5W 100 ML IV SCH (16:00)
--- NOTE | 2018-05-28 16:21 | Progress Note ---
Subjective Date of Service: May 28, 2018. Subjective Pt evaluation today including: conversation w/ family ( and daughter at the bedside), physical exam, lab review, review of studies, conversation w/ party plan sales consultant, review of inpatient medication list Pain: sedated PO Intake: NPO Voiding: roche catheter in place updated patient's and daughter at the bedside, questions answered reviewed labs troponin peaked at 14, down to 10 sugars remain elevated in the 200's Cr stable at 1 Hb in the 8's this morning, transfused two more units PRBC, up to 9.7 later today discussed in detail with Dr. Nick in the morning discussed heart failure and elevated troponin with Dr. Chaudhry, does not feel he had a coronary thrombus, elevated troponin, although quite high, is due to demand ischemia, tachycardia appreciate consultations from Dr. Poole and Dr. Loredo Problem List Medical Problems: (1) Acute bronchitis Status: Acute (2) GHANSHYAM (acute kidney injury) Status: Acute (3) Enlarged prostate Status: Chronic (4) Epistaxis Status: Acute (5) Exertional dyspnea Status: Acute (6) Hx of cancer of lung Status: Acute (7) Hyperkalemia Status: Acute (8) Hyponatremia Status: Acute (9) Leukocytosis Status: Acute (10) Leukocytosis Status: Acute (11) Lung cancer Status: Acute (12) Multifocal pneumonia Status: Acute (13) Necrotizing pneumonia Status: Acute (14) Pneumonia Status: Acute (15) Sepsis Status: Acute (16) Sepsis Status: Acute (17) SOB (shortness of breath) Status: Acute (18) Stabbing chest pain Status: Acute (19) Substernal chest pain Status: Acute Review of Systems cannot review, sedated Medications Current Inpatient Medications Medications (Trade) Dose Ordered Sig/Vianey Route Start Time Stop Time Status Last Admin Dose Admin Acetaminophen (Tylenol Tab) 650 mg Q4H PRN PO 05/26/18 15:00 06/25/18 14:59 05/27/18 05:18 650 MG Magnesium Hydroxide (Milk Of Magnesia Susp) 30 ml Q6H PRN PO 05/26/18 15:00 06/25/18 14:59 Glucose (Glucose 40% Gel) 15-30 GRAMS 15 GRAMS... UD PRN PO 05/26/18 15:00 06/25/18 14:59 Glucose (Glucose Chew Tab) 4-8 Tablets 4 Tabl... UD PRN PO 05/26/18 15:00 06/25/18 14:59 Dextrose (Dextrose 50% 50ML Syringe) 25-50ML 25ML FOR ... UD PRN IV 05/26/18 15:00 06/25/18 14:59 05/27/18 21:44 25 ML Glucagon (Glucagon Inj) 1 mg UD PRN SQ 05/26/18 15:00 06/25/18 14:59 Carbohydrates (Carbohydrates For Hypoglycemia) 15-30 GRAMS 15 grams if BSG 54-69... UD PRN PO 05/26/18 15:00 06/25/18 14:59 Finasteride (Proscar Tab) 5 mg QAM PO 05/27/18 08:00 06/26/18 08:59 Future Hold 05/28/18 10:21 5 MG Simvastatin (Zocor Tab) 40 mg QPM PO 05/26/18 21:00 06/25/18 20:59 05/26/18 20:48 40 MG Heparin Sodium (Porcine) (Heparin 100 Unit/ml 5ml Flush) 5 ml PRN PRN IV 05/27/18 01:30 06/26/18 01:29 Insulin Aspart (novoLOG ASPART) [facility] 05/27/18 17:15 06/26/18 17:14 Norepinephrine Bitartrate 8 mg/ Dextrose 508 ml @ 0 mls/hr Q0M IV 05/27/18 13:30 06/26/18 13:29 05/28/18 00:52 32 MLS/HR Midazolam HCl 250 ml @ 0 mls/hr Q0M IV 05/27/18 13:19 06/26/18 13:18 05/27/18 13:55 2 MLS/HR Fentanyl Citrate 250 ml @ 5 mls/hr Q24H IV 05/27/18 13:30 06/10/18 13:29 05/28/18 08:08 20 MLS/HR Aspirin (Aspirin Chew) 81 mg DAILY PO 05/28/18 09:00 06/27/18 08:59 05/28/18 10:22 81 MG Levalbuterol (Xopenex Hfa Inhaler) 4 puffs Q6R INH 05/27/18 15:00 06/26/18 14:59 05/28/18 14:45 4 PUFFS Pantoprazole Sodium 40 mg/ Syringe 10 ml @ 5 mls/min DAILY@09,21 IV 05/27/18 21:00 06/26/18 20:59 05/28/18 10:24 5 MLS/MIN Miscellaneous Information (Consult Glycemic Management Pharmacy) 1 ea UD PRN N/A 05/27/18 15:14 06/26/18 15:13 Insulin Human Regular 250 units/ Sodium Chloride 252.5 ml @ 0 mls/hr Q24H IV 05/27/18 16:01 06/26/18 16:00 05/27/18 16:05 2.1 MLS/HR Heparin Sodium (Porcine) (Heparin 10 Unit/ ml 5 ml Flush) 5 ml PRN PRN FLUSH 05/28/18 00:15 06/27/18 00:14 Dobutamine HCl 250 ml @ 0 mls/hr Q0M PRN IV 05/28/18 09:00 06/27/18 08:59 Heparin Sodium/ Dextrose 500 ml @ 14 mls/hr Q24H IV 05/28/18 09:30 06/27/18 09:29 05/28/18 10:14 14 MLS/HR Voriconazole 340 mg/Sodium Chloride 100 ml @ 50 mls/hr Q12H IV 05/28/18 10:00 05/28/18 23:59 05/28/18 10:12 50 MLS/HR Ferrous Sulfate (Feosol Elix) 325 mg BIDM PO 05/28/18 16:30 06/27/18 16:29 Multivitamins Therapeutic (Cerovite Liquid) 15 ml QAM PO 05/28/18 12:00 06/27/18 11:59 05/28/18 10:48 15 ML Voriconazole 230 mg/Sodium Chloride 100 ml @ 75 mls/hr Q12H IV 05/29/18 10:00 06/28/18 09:59 Magnesium Sulfate 100 ml @ 100 mls/hr 1600 IV 05/28/18 16:00 05/28/18 16:59 Objective Vital Signs Date Time Temp Pulse Resp B/P (MAP) Pulse Ox O2 Delivery O2 Flow Rate FiO2 05/28/18 14:45 30 05/28/18 14:00 36.9 105 16 107/44 (65) 96 Mechanical Ventilator 30 05/28/18 13:31 36.9 101 16 114/46 (68) 96 Mechanical Ventilator 30 05/28/18 13:01 30 8 13:00 36.9 102 20 122/48 (72) 96 Mechanical Ventilator 30 05/28/18 12:32 97 Mechanical Ventilator 30 05/28/18 12:00 37.0 106 19 128/49 (75) 96 Mechanical Ventilator 30 05/28/18 12:00 37.0 106 19 128/49 96 18 11:50 30 05/28/18 11:00 37.2 111 21 132/42 95 05/28/18 11:00 37.2 111 21 132/42 (72) 95 Mechanical Ventilator 30 05/28/18 10:25 37.4 109 22 133/48 96 05/28/18 10:10 37.4 79 19 113/51 94 05/28/18 10:00 37.4 91 22 98/36 (56) 94 Mechanical Ventilator 30 05/28/18 09:00 37.1 79 16 123/52 (75) 96 Mechanical Ventilator 30 05/28/18 08:00 37.1 83 20 124/53 (76) 97 Mechanical Ventilator 30 05/28/18 08:00 30 05/28/18 08:00 Mechanical Ventilator 30 05/28/18 07:15 30 05/28/18 07:00 36.8 83 20 107/51 (69) 98 Mechanical Ventilator 30 05/28/18 06:01 36.9 76 20 110/38 (62) 98 Mechanical Ventilator 35 05/28/18 06:00 36.9 83 20 104/50 (68) 98 Mechanical Ventilator 35 05/28/18 05:31 36.9 83 20 100/48 (65) 97 Mechanical Ventilator 35 05/28/18 05:18 35 05/28/18 05:01 36.9 83 20 94/48 (63) 97 Mechanical Ventilator 35 05/28/18 05:00 36.9 83 20 93/46 (62) 97 Mechanical Ventilator 35 05/28/18 04:01 36.0 81 20 96/45 (62) 98 Mechanical Ventilator 35 05/28/18 04:00 36.0 84 20 93/44 (60) 98 Mechanical Ventilator 35 05/28/18 03:31 36.0 86 20 95/46 (62) 98 Mechanical Ventilator 35 05/28/18 03:01 36.1 89 20 94/46 (62) 97 Mechanical Ventilator 35 05/28/18 03:00 36.1 92 20 93/46 (62) 97 Mechanical Ventilator 35 05/28/18 02:10 40 05/28/18 02:01 37.6 85 24 103/39 (60) 96 Mechanical Ventilator 30 05/28/18 02:00 37.6 87 24 89/45 (60) 96 Mechanical Ventilator 30 05/28/18 01:40 40 05/28/18 01:31 37.6 86 24 90/46 (61) 100 Mechanical Ventilator 30 05/28/18 01:01 37.6 88 24 86/45 (59) 100 Mechanical Ventilator 30 05/28/18 01:00 37.6 87 24 90/46 (61) 100 Mechanical Ventilator 30 05/28/18 00:01 102 24 82/43 (56) 100 05/28/18 00:00 36.3 101 24 81/42 (55) 100 05/27/18 23:52 110 24 60/24 (36) 97 05/27/18 23:31 116 24 81/40 (54) 98 05/27/18 23:30 50 05/27/18 23:01 116 25 82/56 (65) 96 05/27/18 23:00 116 26 86/40 (55) 96 05/27/18 22:31 134 25 115/78 (90) 85 05/27/18 22:01 115 26 81/37 (52) 99 05/27/18 22:00 114 27 81/41 (54) 99 05/27/18 21:31 96 25 87/29 (48) 98 05/27/18 21:01 108 27 103/39 (60) 96 05/27/18 21:00 115 26 88/35 (52) 97 05/27/18 20:33 Mechanical Ventilator 50 05/27/18 20:33 50 05/27/18 20:15 108 24 95/47 (63) 05/27/18 20:00 36.3 106 27 100/33 (55) 96 05/27/18 19:31 117 27 93/35 (54) 94 05/27/18 19:22 50 05/27/18 19:00 119 28 86/39 (55) 93 05/27/18 18:45 119 31 101/41 (61) 93 05/27/18 18:31 146 29 148/89 (108) 91 05/27/18 18:30 119 40 157/46 (83) 93 05/27/18 18:27 130 23 90/39 (56) 98 05/27/18 18:19 60 05/27/18 18:15 115 31 92/46 (61) 99 05/27/18 18:01 114 29 89/46 (60) 99 Mechanical Ventilator 80 101/47 (65) 05/27/18 18:00 115 30 94/46 (62) 99 Mechanical Ventilator 80 05/27/18 18:00 36.4 115 30 94/46 99 05/27/18 17:42 116 30 86/64 (71) 05/27/18 17:30 36.2 115 30 95/47 99 05/27/18 17:30 115 30 95/47 (63) 99 Mechanical Ventilator 80 05/27/18 17:12 115 26 92/41 (58) 100 Mechanical Ventilator 80 05/27/18 17:00 116 31 100/37 (58) 99 Mechanical Ventilator 80 05/27/18 16:51 80 05/27/18 16:30 119 31 90/44 (59) 98 Mechanical Ventilator 80 Physical Exam General Appearance: no apparent distress, + thin Neck: supple, no adenopathy, no JVD, trachea midline Respiratory/Chest: no respiratory distress, no accessory muscle use, + decreased breath sounds Cardiovascular: no edema, no gallop, no JVD, no murmur, + tachycardia Abdomen: normal bowel sounds, non tender, soft, no organomegaly Extremities: normal inspection, no pedal edema, no calf tenderness, normal capillary refill, pelvis stable Neurologic/Psychiatric: + pertinent finding (sedated) Skin: normal color, warm/dry, no rash Laboratory Results Last 24 Hours Test 05/27/18 17:04 05/27/18 17:08 05/27/18 18:34 05/27/18 19:46 Bedside Glucose 321 mg/dl 243 mg/dl 179 mg/dl Blood Gas Sample Site Art Line Bedside Blood Gas pH (LAB) 7.32 Bedside Blood Gas pCO2 (LAB) 36 mmHg Bedside Blood Gas pO2 (LAB) 116 mmHg Bedside Blood Gas HCO3 (LAB) 19 meq/L Bedside Blood Gas Total CO2 20 mEq/l Bedside Blood Gas Base Excess (LAB) -7.0 meq/L Bedside Blood Gas O2 Saturation 98.0 % Lester Test NA Oxygen Delivery Device Ventilator Bedside Oxygen Rate (breaths/min) 24 Bedside FiO2 80 % Blood Gas PEEP 10 Test 05/27/18 20:59 05/27/18 21:19 05/27/18 21:39 05/27/18 21:50 Bedside Glucose 122 mg/dl 116 mg/dl 114 mg/dl Hemoglobin 8.6 g/dL Hematocrit 26.4 % Sodium Level 137 mmol/L Potassium Level 4.3 mmol/L Chloride Level 106 mmol/L Carbon Dioxide Level 23 mmol/L Anion Gap 8.0 mmol/L Blood Urea Nitrogen 23 mg/dl Creatinine 1.14 mg/dl Est Creatinine Clear Calc Drug Dose 46.0 ml/min Estimated GFR () 73.0 Estimated GFR (Non- 63.0 BUN/Creatinine Ratio 20.5 Random Glucose 219 mg/dl Calcium Level 8.2 mg/dl Magnesium Level 1.8 mg/dl Troponin I 10.800 ng/ml Test 05/27/18 22:02 05/27/18 23:14 05/28/18 00:12 05/28/18 01:30 Bedside Glucose 206 mg/dl 150 mg/dl Bedside Glucose (other) 135 mg/dl 137 mg/dl Test 05/28/18 02:13 05/28/18 02:25 05/28/18 03:16 05/28/18 04:13 Bedside Glucose (other) 130 mg/dl 129 mg/dl 134 mg/dl Blood Gas Sample Site R Radial Bedside Blood Gas pH (LAB) 7.49 Bedside Blood Gas pCO2 (LAB) 24 mmHg Bedside Blood Gas pO2 (LAB) 65 mmHg Bedside Blood Gas HCO3 (LAB) 18 meq/L Bedside Blood Gas Total CO2 19 mEq/l Bedside Blood Gas Base Excess (LAB) -6.0 meq/L Bedside Blood Gas O2 Saturation 95.0 % Lester Test NA Oxygen Delivery Device Ventilator Bedside Oxygen Rate (breaths/min) 24 Bedside FiO2 30 % Blood Gas PEEP 10 Test 05/28/18 04:41 05/28/18 05:10 05/28/18 06:12 05/28/18 08:55 White Blood Count 23.09 K/uL Red Blood Count 3.35 M/uL Hemoglobin 8.8 g/dL Hematocrit 26.5 % Mean Corpuscular Volume 79.1 fL Mean Corpuscular Hemoglobin 26.3 pg Mean Corpuscular Hemoglobin Concent 33.2 g/dl Platelet Count 528 K/uL Mean Platelet Volume 8.8 fL Neutrophils (%) (Auto) 88.1 % Lymphocytes (%) (Auto) 4.8 % Monocytes (%) (Auto) 5.2 % Eosinophils (%) (Auto) 0.0 % Basophils (%) (Auto) 0.2 % Neutrophils # (Auto) 20.36 K/uL Lymphocytes # (Auto) 1.10 K/uL Monocytes # (Auto) 1.19 K/uL Eosinophils # (Auto) 0.01 K/uL Basophils # (Auto) 0.04 K/uL RDW Standard Deviation 50.4 fL RDW Coefficient of Variation 17.4 % Immature Granulocyte % (Auto) 1.7 % Immature Granulocyte # (Auto) 0.39 K/uL Spherocytes 1+ Sodium Level 136 mmol/L Potassium Level 3.9 mmol/L Chloride Level 106 mmol/L Carbon Dioxide Level 19 mmol/L Anion Gap 11.0 mmol/L Blood Urea Nitrogen 23 mg/dl Creatinine 1.17 mg/dl Est Creatinine Clear Calc Drug Dose 44.8 ml/min Estimated GFR () 70.8 Estimated GFR (Non- 61.1 BUN/Creatinine Ratio 19.6 Random Glucose 137 mg/dl Estimated Average Glucose 146 mg/dl Hemoglobin A1c 6.7 % Calcium Level 8.0 mg/dl Phosphorus Level 3.6 mg/dl Magnesium Level 1.6 mg/dl Troponin I 14.700 ng/ml Bedside Glucose (other) 143 mg/dl 149 mg/dl 163 mg/dl Test 05/28/18 09:27 05/28/18 09:37 05/28/18 10:49 05/28/18 12:50 Random Cortisol 8.46 mcg/dl White Blood Count 20.86 K/uL Red Blood Count 3.61 M/uL Hemoglobin 9.3 g/dL Hematocrit 28.7 % Mean Corpuscular Volume 79.5 fL Mean Corpuscular Hemoglobin 25.8 pg Mean Corpuscular Hemoglobin Concent 32.4 g/dl RDW Standard Deviation 50.8 fL RDW Coefficient of Variation 17.6 % Platelet Count 473 K/uL Mean Platelet Volume 8.7 fL Nucleated RBC Absolute Count (auto) 0.03 K/uL Nucleated Red Blood Cells % 0.1 % Prothrombin Time 14.0 SECONDS Prothromb Time International Ratio 1.3 Activated Partial Thromboplast Time 31.3 SECONDS Partial Thromboplastin Ratio 1.2 Bedside Glucose (other) 166 mg/dl 236 mg/dl Test 05/28/18 13:49 05/28/18 13:50 05/28/18 15:12 05/28/18 16:02 Hemoglobin 9.7 g/dL Hematocrit 29.8 % Troponin I 10.400 ng/ml Bedside Glucose (other) 263 mg/dl 261 mg/dl 253 mg/dl Assessment and Plan 72 y/o M who was admitted on 05/26 with PNA and COPD exacerbation - Acute hypoxic respiratory failure, respiratory distress, due to pulmonary edema, acute heart failure intubated on 05/27 emergently remains on ventilator today CXR with improved aeration of right lower lobe low FiO2 requirements management per ICU - Acute systolic heart failure, acute decompensation EF low at 15-20% h/o ischemic cardiomyopathy, h/o low EF in the s but most recent EF had improved earlier this year placed on Dobutamine, making adequate urine, lungs clearing cardiology following poor overall prognosis h/o seven stents, none recently - Left upper lobe cavitary lesion, questionable right lower lobe infiltrate no evidence of mucous on bronchoscopy yesterday antibiotics stopped, placed on Voriconazole due to h/o Aspergillus bronchial lavage sent for culture, awaiting results - Elevated troponin, NSTEMI type II demand ischemia due to tachycardia, respiratory distress, attempted electrocardioversion twice yesterday troponin peaked at 14, down to [address] Chaudhry, certainly left heart cath could be considered in the future, but patient would not be candidate for stenting, cannot tolerate DAPT due to nose bleeds - Worsening anemia, assumed blood loss, but still unclear etiology Protonix IV BID was heme positive stool in the ED transfused 4 units total, Hb up to 9.7 - COPD: no evidence of exacerbation - DM with hyperglycemia insulin infusion, pharmacy management - H/o lung cancer had recent PET scan as outpatient, no evidence of recurrent disease per Dr. Poole, had isolated small cell lung CA, treated with chemotherapy and radiation no further work up at this time as he would not be a candidate for any type of treatment 45 minutes spent on patient today CAD: hx of TN and stents x7 Pt could not tolerate plavix (nosebleeds) and is on aspirin 81mg Holding for now given above Hyperlipidemia: continue home meds BPH: continue home meds Other: Full code updated over the phone 40 minutes of critical care time spent on this patient, 1130am to 1210pm
[2018-05-28] MEDS: DOBUTAMINE 500MG / D5W IV PRN (16:36)
[2018-05-28 17:28] LABS: PTT PATIENT 35.7 SECONDS (21.0-31.0)
[2018-05-28] MEDS: FERROUS SULFATE 325 MG/7.4 ML UDP PO SCH (17:39)
--- NOTE | 2018-05-28 17:46 | Critical Care Progress Note ---
Critical Care Progress Note Date of Service May 28, 2018. ICU Day ICU Day Number: [address] Nick Subjective Patient was intubated yesterday for hypoxic respiratory failure, underwent bronchoscopy, no overnight events. Objective General: RASS -3. Skin: Warm, dry, Head: Atraumatic Ears, nose, mouth and throat endotracheal tube present Cardiovascular: Normal peripheral perfusion Respiratory: no respiratory distress Gastrointestinal: Non distended Musculoskeletal: No deformity Assessment & Plan Reason Critically Ill: 72-year-old male with likely recurrent pneumonia who has pneumonia. PLAN: Neuro: Wean sedation for sedation holiday -We will need dose adjustment as patient will be placed on voriconazole Resp: Hypoxic respiratory failure -Weaned inspiratory pressure and PEEP -Bronchoscopy yesterday we will follow-up labs CV: Hypotension Possible cardiomyopathy -Continue aspirin, did not tolerate Plavix secondary to recurrent epistaxis Reduced EF heart failure -Trial of dobutamine, wean Levophed -Check random cortisol Prolonged QTC -Discontinue Zofran Fluids/Renal: Likely euvolemic -No additional fluids at this time getting large amount of fluids from medications ID: Discontinue antibacterials -Add voriconazole for possible aspergillus -Send 1 3 fungitel, aspergillus panel -Infectious disease consultation GI/Nutrition: N.p.o. -Once stable on pressors will start trickle feeds Heme: Anemia -On DVT prophylaxis Endocrine: Hyperglycemia -Continue IV insulin secondary to vasopressor use Vascular access: Central line, arterial line Code Status: DO NOT RESUSCITATE An extensive discussion with the patient's and daughter at the bedside. Patient has severe medical issues and would not want heroic measures undertaken in event of cardiac arrest. Patient was discussed on multidisciplinary rounds I have personally spent 60 minutes of critical care time in the direct management of this patient. This is a life/limb threatening event. This includes time spent evaluating patient, direct bedside care, chart review, placing orders, interpretation of diagnostic studies, discussion with consultants, patient, and/or family members regarding treatment decisions, as well as other required patient management activities. This time is exclusive of all separately billable procedures, and teaching time and separate from and in addition to any other critical care service time. Data Medications: Current Inpatient Medications Medications (Trade) Dose Ordered Sig/Vianey Route Start Time Stop Time Status Last Admin Dose Admin Acetaminophen (Tylenol Tab) 650 mg Q4H PRN PO 05/26/18 15:00 06/25/18 14:59 05/27/18 05:18 650 MG Magnesium Hydroxide (Milk Of Magnesia Susp) 30 ml Q6H PRN PO 05/26/18 15:00 06/25/18 14:59 Glucose (Glucose 40% Gel) 15-30 GRAMS 15 GRAMS... UD PRN PO 05/26/18 15:00 06/25/18 14:59 Glucose (Glucose Chew Tab) 4-8 Tablets 4 Tabl... UD PRN PO 05/26/18 15:00 06/25/18 14:59 Dextrose (Dextrose 50% 50ML Syringe) 25-50ML 25ML FOR ... UD PRN IV 05/26/18 15:00 06/25/18 14:59 05/27/18 21:44 25 ML Glucagon (Glucagon Inj) 1 mg UD PRN SQ 05/26/18 15:00 06/25/18 14:59 Carbohydrates (Carbohydrates For Hypoglycemia) 15-30 GRAMS 15 grams if BSG 54-69... UD PRN PO 05/26/18 15:00 06/25/18 14:59 Finasteride (Proscar Tab) 5 mg QAM PO 05/27/18 08:00 06/26/18 08:59 Future Hold 05/28/18 10:21 5 MG Simvastatin (Zocor Tab) 40 mg QPM PO 05/26/18 21:00 06/25/18 20:59 05/26/18 20:48 40 MG Heparin Sodium (Porcine) (Heparin 100 Unit/ml 5ml Flush) 5 ml PRN PRN IV 05/27/18 01:30 06/26/18 01:29 Insulin Aspart (novoLOG ASPART) SLIDING SCALE [facility] 05/27/18 17:15 06/26/18 17:14 Norepinephrine Bitartrate 8 mg/ Dextrose 508 ml @ 0 mls/hr Q0M IV 05/27/18 13:30 06/26/18 13:29 05/28/18 17:26 0.07 MLS/HR Midazolam HCl 250 ml @ 0 mls/hr Q0M IV 05/27/18 13:19 06/26/18 13:18 05/27/18 13:55 2 MLS/HR Fentanyl Citrate 250 ml @ 5 mls/hr Q24H IV 05/27/18 13:30 06/10/18 13:29 05/28/18 08:08 20 MLS/HR Aspirin (Aspirin Chew) 81 mg DAILY PO 05/28/18 09:00 06/27/18 08:59 05/28/18 10:22 81 MG Levalbuterol (Xopenex Hfa Inhaler) 4 puffs Q6R INH 05/27/18 15:00 06/26/18 14:59 05/28/18 14:45 4 PUFFS Pantoprazole Sodium 40 mg/ Syringe 10 ml @ 5 mls/min DAILY@09,21 IV 05/27/18 21:00 06/26/18 20:59 05/28/18 10:24 5 MLS/MIN Miscellaneous Information (Consult Glycemic Management Pharmacy) 1 ea UD PRN N/A 05/27/18 15:14 06/26/18 15:13 Insulin Human Regular 250 units/ Sodium Chloride 252.5 ml @ 0 mls/hr Q24H IV 05/27/18 16:01 06/26/18 16:00 05/28/18 15:50 0.7 MLS/HR Heparin Sodium (Porcine) (Heparin 10 Unit/ ml 5 ml Flush) 5 ml PRN PRN FLUSH 05/28/18 00:15 06/27/18 00:14 Dobutamine HCl 250 ml @ 0 mls/hr Q0M PRN IV 05/28/18 09:00 06/27/18 08:59 05/28/18 16:36 8.6 MLS/HR Heparin Sodium/ Dextrose 500 ml @ 14 mls/hr Q24H IV 05/28/18 09:30 06/27/18 09:29 05/28/18 10:14 14 MLS/HR Voriconazole 340 mg/Sodium Chloride 100 ml @ 50 mls/hr Q12H IV 05/28/18 10:00 05/28/18 23:59 05/28/18 10:12 50 MLS/HR Ferrous Sulfate (Feosol Elix) 325 mg BIDM PO 05/28/18 16:30 06/27/18 16:29 Multivitamins Therapeutic (Cerovite Liquid) 15 ml QAM PO 05/28/18 12:00 06/27/18 11:59 05/28/18 10:48 15 ML Voriconazole 230 mg/Sodium Chloride 100 ml @ 75 mls/hr Q12H IV 05/29/18 10:00 06/28/18 09:59 Miscellaneous Information (Nursing Heparin Iv Rate Change) 1 ea ONE ONCE N/A 05/28/18 17:30 05/28/18 17:31 UNV I & O: 24-Hour Column 05/29/18 08:00 Intake Total 1451 ml Output Total 1175 ml Balance 276 ml Vital Signs: Date Time Temp Pulse Resp B/P (MAP) Pulse Ox O2 Delivery O2 Flow Rate FiO2 05/28/18 16:54 96 Mechanical Ventilator 30 05/28/18 16:45 30 05/28/18 16:00 35.8 130 24 110/44 (66) 96 Mechanical Ventilator 30 05/28/18 15:31 35.7 128 27 112/45 (67) 95 Mechanical Ventilator 30 05/28/18 15:00 36.8 114 21 125/47 (73) 96 Mechanical Ventilator 30 05/28/18 14:45 30 05/28/18 14:00 36.9 105 16 107/44 (65) 96 Mechanical Ventilator 30 05/28/18 13:31 36.9 101 16 114/46 (68) 96 Mechanical Ventilator 30 05/28/18 13:01 30 05/28/18 13:00 36.9 102 20 122/48 (72) 96 Mechanical Ventilator 30 05/28/18 12:32 97 Mechanical Ventilator 30 05/28/18 12:00 37.0 106 19 128/49 (75) 96 Mechanical Ventilator 30 05/28/18 12:00 37.0 106 19 128/49 96 05/28/18 11:50 30 05/28/18 11:00 37.2 111 21 132/42 95 05/28/18 11:00 37.2 111 21 132/42 (72) 95 Mechanical Ventilator 30 05/28/18 10:25 37.4 109 22 133/48 96 05/28/18 10:10 37.4 79 19 113/51 94 05/28/18 10:00 37.4 91 22 98/36 (56) 94 Mechanical Ventilator 30 05/28/18 09:00 37.1 79 16 123/52 (75) 96 Mechanical Ventilator 30 05/28/18 08:00 37.1 83 20 124/53 (76) 97 Mechanical Ventilator 30 05/28/18 08:00 30 05/28/18 08:00 Mechanical Ventilator 30 05/28/18 07:15 30 05/28/18 07:00 36.8 83 20 107/51 (69) 98 Mechanical Ventilator 30 05/28/18 06:01 36.9 76 20 110/38 (62) 98 Mechanical Ventilator 35 05/28/18 06:00 36.9 83 20 104/50 (68) 98 Mechanical Ventilator 35 05/28/18 05:31 36.9 83 20 100/48 (65) 97 Mechanical Ventilator 35 05/28/18 05:18 35 05/28/18 05:01 36.9 83 20 94/48 (63) 97 Mechanical Ventilator 35 05/28/18 05:00 36.9 83 20 93/46 (62) 97 Mechanical Ventilator 35 05/28/18 04:01 36.0 81 20 96/45 (62) 98 Mechanical Ventilator 35 05/28/18 04:00 36.0 84 20 93/44 (60) 98 Mechanical Ventilator 35 05/28/18 03:31 36.0 86 20 95/46 (62) 98 Mechanical Ventilator 35 05/28/18 03:01 36.1 89 20 94/46 (62) 97 Mechanical Ventilator 35 05/28/18 03:00 36.1 92 20 93/46 (62) 97 Mechanical Ventilator 35 05/28/18 02:10 40 05/28/18 02:01 37.6 85 24 103/39 (60) 96 Mechanical Ventilator 30 05/28/18 02:00 37.6 87 24 89/45 (60) 96 Mechanical Ventilator 30 05/28/18 01:40 40 05/28/18 01:31 37.6 86 24 90/46 (61) 100 Mechanical Ventilator 30 05/28/18 01:01 37.6 88 24 86/45 (59) 100 Mechanical Ventilator 30 05/28/18 01:00 37.6 87 24 90/46 (61) 100 Mechanical Ventilator 30 05/28/18 00:01 102 24 82/43 (56) 100 05/28/18 00:00 36.3 101 24 81/42 (55) 100 05/27/18 23:52 110 24 60/24 (36) 97 05/27/18 23:31 116 24 81/40 (54) 98 8/12/18 23:30 50 8 23:01 116 25 82/56 (65) 96 05/27/18 23:00 116 26 86/40 (55) 96 18 22:31 134 25 115/78 (90) 85 818 22:01 115 26 81/37 (52) 99 05/27/18 22:00 114 27 81/41 (54) 99 05/27/18 21:31 96 25 87/29 (48) 98 05/27/18 21:01 108 27 103/39 (60) 96 05/27/18 21:00 115 26 88/35 (52) 97 05/27/18 20:33 Mechanical Ventilator 50 05/27/18 20:33 50 05/27/18 20:15 108 24 95/47 (63) 05/27/18 20:00 36.3 106 27 100/33 (55) 96 05/27/18 19:31 117 27 93/35 (54) 94 05/27/18 19:22 50 05/27/18 19:00 119 28 86/39 (55) 93 05/27/18 18:45 119 31 101/41 (61) 93 05/27/18 18:31 146 29 148/89 (108) 91 05/27/18 18:30 119 40 157/46 (83) 93 05/27/18 18:27 130 23 90/39 (56) 98 05/27/18 18:19 60 05/27/18 18:15 115 31 92/46 (61) 99 05/27/18 18:01 114 29 89/46 (60) 99 Mechanical Ventilator 80 101/47 (65) 05/27/18 18:00 115 30 94/46 (62) 99 Mechanical Ventilator 80 05/27/18 18:00 36.4 115 30 94/46 99 05/27/18 17:42 116 30 86/64 (71) Laboratory Results: Last 24 Hours Test 05/27/18 18:34 05/27/18 19:46 05/27/18 20:59 05/27/18 21:19 Bedside Glucose 243 mg/dl 179 mg/dl 122 mg/dl 116 mg/dl Test 05/27/18 21:39 05/27/18 21:50 05/27/18 22:02 05/27/18 23:14 Bedside Glucose 114 mg/dl 206 mg/dl 150 mg/dl Hemoglobin 8.6 g/dL Hematocrit 26.4 % Sodium Level 137 mmol/L Potassium Level 4.3 mmol/L Chloride Level 106 mmol/L Carbon Dioxide Level 23 mmol/L Anion Gap 8.0 mmol/L Blood Urea Nitrogen 23 mg/dl Creatinine 1.14 mg/dl Est Creatinine Clear Calc Drug Dose 46.0 ml/min Estimated GFR () 73.0 Estimated GFR (Non- 63.0 BUN/Creatinine Ratio 20.5 Random Glucose 219 mg/dl Calcium Level 8.2 mg/dl Magnesium Level 1.8 mg/dl Troponin I 10.800 ng/ml Test 05/28/18 00:12 05/28/18 01:30 05/28/18 02:13 05/28/18 02:25 Bedside Glucose (other) 135 mg/dl 137 mg/dl 130 mg/dl Blood Gas Sample Site R Radial Bedside Blood Gas pH (LAB) 7.49 Bedside Blood Gas pCO2 (LAB) 24 mmHg Bedside Blood Gas pO2 (LAB) 65 mmHg Bedside Blood Gas HCO3 (LAB) 18 meq/L Bedside Blood Gas Total CO2 19 mEq/l Bedside Blood Gas Base Excess (LAB) -6.0 meq/L Bedside Blood Gas O2 Saturation 95.0 % Lester Test NA Oxygen Delivery Device Ventilator Bedside Oxygen Rate (breaths/min) 24 Bedside FiO2 30 % Blood Gas PEEP 10 Test 05/28/18 03:16 05/28/18 04:13 05/28/18 04:41 05/28/18 05:10 Bedside Glucose (other) 129 mg/dl 134 mg/dl 143 mg/dl White Blood Count 23.09 K/uL Red Blood Count 3.35 M/uL Hemoglobin 8.8 g/dL Hematocrit 26.5 % Mean Corpuscular Volume 79.1 fL Mean Corpuscular Hemoglobin 26.3 pg Mean Corpuscular Hemoglobin Concent 33.2 g/dl Platelet Count 528 K/uL Mean Platelet Volume 8.8 fL Neutrophils (%) (Auto) 88.1 % Lymphocytes (%) (Auto) 4.8 % Monocytes (%) (Auto) 5.2 % Eosinophils (%) (Auto) 0.0 % Basophils (%) (Auto) 0.2 % Neutrophils # (Auto) 20.36 K/uL Lymphocytes # (Auto) 1.10 K/uL Monocytes # (Auto) 1.19 K/uL Eosinophils # (Auto) 0.01 K/uL Basophils # (Auto) 0.04 K/uL RDW Standard Deviation 50.4 fL RDW Coefficient of Variation 17.4 % Immature Granulocyte % (Auto) 1.7 % Immature Granulocyte # (Auto) 0.39 K/uL Spherocytes 1+ Sodium Level 136 mmol/L Potassium Level 3.9 mmol/L Chloride Level 106 mmol/L Carbon Dioxide Level 19 mmol/L Anion Gap 11.0 mmol/L Blood Urea Nitrogen 23 mg/dl Creatinine 1.17 mg/dl Est Creatinine Clear Calc Drug Dose 44.8 ml/min Estimated GFR () 70.8 Estimated GFR (Non- 61.1 BUN/Creatinine Ratio 19.6 Random Glucose 137 mg/dl Estimated Average Glucose 146 mg/dl Hemoglobin A1c 6.7 % Calcium Level 8.0 mg/dl Phosphorus Level 3.6 mg/dl Magnesium Level 1.6 mg/dl Troponin I 14.700 ng/ml Test 05/28/18 06:12 05/28/18 08:55 05/28/18 09:27 05/28/18 09:37 Bedside Glucose (other) 149 mg/dl 163 mg/dl Random Cortisol 8.46 mcg/dl White Blood Count 20.86 K/uL Red Blood Count 3.61 M/uL Hemoglobin 9.3 g/dL Hematocrit 28.7 % Mean Corpuscular Volume 79.5 fL Mean Corpuscular Hemoglobin 25.8 pg Mean Corpuscular Hemoglobin Concent 32.4 g/dl RDW Standard Deviation 50.8 fL RDW Coefficient of Variation 17.6 % Platelet Count 473 K/uL Mean Platelet Volume 8.7 fL Nucleated RBC Absolute Count (auto) 0.03 K/uL Nucleated Red Blood Cells % 0.1 % Prothrombin Time 14.0 SECONDS Prothromb Time International Ratio 1.3 Activated Partial Thromboplast Time 31.3 SECONDS Partial Thromboplastin Ratio 1.2 Test 05/28/18 10:49 05/28/18 12:50 05/28/18 13:49 05/28/18 13:50 Bedside Glucose (other) 166 mg/dl 236 mg/dl 263 mg/dl Hemoglobin 9.7 g/dL Hematocrit 29.8 % Troponin I 10.400 ng/ml Test 05/28/18 15:12 05/28/18 16:02 05/28/18 16:59 05/28/18 17:05 Bedside Glucose (other) 261 mg/dl 253 mg/dl 266 mg/dl Activated Partial Thromboplast Time 35.7 SECONDS Partial Thromboplastin Ratio 1.4
--- NOTE | 2018-05-28 17:56 | Medical Consult ---
Consultation Date of Consultation: May 28, 2018. Attending Physician: Christiano Woo D.O. History of Present Illness 72-year-old the male, Oncology diagnosis: - Small-cell lung cancer, limited-stage diagnosed in 01/2016, S/P concurrent chemo and radiation treatment, last cycle of chemotherapy received in June 2016. Has been followed by Dr. Ash on a regular basis, lately in this year, he was admitted on few occasions for multilobular pneumonia in December 2017 and February 2018. Also follows with Dr. 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 He was treated with oral antibiotic in the form of Augmentin, but he continued to have increasing pulmonary symptoms, admitted at [facility] on 05/26/2018. He had increasing dyspnea on exertion, cough with yellow is expectorant, had a chills but no fever, poor appetite, before hospice, he was ambulates slowly by himself, did not have any chest pain, abdominal pain, bleeding from any sites. Had sticky hemoptysis. Now in the ICU, intubated because of hypotension, respiratory failure, underwent bronchoscopic years, found to have evidence of pulmonary edema, also has underlying ischemic cardiomyopathy with significant reduction of the left into ejection fraction. I saw him at bedside, his and daughter where also at bedside, reviewed his chart, history obtained from the patient's and the daughter. Past Medical/Surgical History Medical Problems: (1) Acute bronchitis Status: Acute (2) GHANSHYAM (acute kidney injury) Status: Acute (3) Enlarged prostate Status: Chronic (4) Epistaxis Status: Acute (5) Exertional dyspnea Status: Acute (6) Hx of cancer of lung Status: Acute (7) Hyperkalemia Status: Acute (8) Hyponatremia Status: Acute (9) Leukocytosis Status: Acute (10) Leukocytosis Status: Acute (11) Lung cancer Status: Acute (12) Multifocal pneumonia Status: Acute (13) Necrotizing pneumonia Status: Acute (14) Pneumonia Status: Acute (15) Sepsis Status: Acute (16) Sepsis Status: Acute (17) SOB (shortness of breath) Status: Acute (18) Stabbing chest pain Status: Acute (19) Substernal chest pain Status: Acute Family History FH: anemia FH: myocardial infarction Hypertension Type II diabetes mellitus Social History Smoking Status: Former Smoker Alcohol Use: occasionally (rare beer) Drug Use: none Marital Status: Housing Status: lives with family Occupation Status: retired Allergies Coded Allergies: No Known Allergies (Verified , 04/17/18) Current Inpatient Medications Current Inpatient Medications Medications (Trade) Dose Ordered Sig/Vianey Route Start Time Stop Time Status Last Admin Dose Admin Acetaminophen (Tylenol Tab) 650 mg Q4H PRN PO 05/26/18 15:00 06/25/18 14:59 05/27/18 05:18 650 MG Magnesium Hydroxide (Milk Of Magnesia Susp) 30 ml Q6H PRN PO 05/26/18 15:00 06/25/18 14:59 Glucose (Glucose 40% Gel) 15-30 GRAMS 15 GRAMS... UD PRN PO 05/26/18 15:00 06/25/18 14:59 Glucose (Glucose Chew Tab) 4-8 Tablets 4 Tabl... UD PRN PO 05/26/18 15:00 06/25/18 14:59 Dextrose (Dextrose 50% 50ML Syringe) 25-50ML 25ML FOR ... UD PRN IV 05/26/18 15:00 06/25/18 14:59 05/27/18 21:44 25 ML Glucagon (Glucagon Inj) 1 mg UD PRN SQ 05/26/18 15:00 06/25/18 14:59 Carbohydrates (Carbohydrates For Hypoglycemia) 15-30 GRAMS 15 grams if BSG 54-69... UD PRN PO 05/26/18 15:00 06/25/18 14:59 Finasteride (Proscar Tab) 5 mg QAM PO 05/27/18 08:00 06/26/18 08:59 Future Hold 05/28/18 10:21 5 MG Simvastatin (Zocor Tab) 40 mg QPM PO 05/26/18 21:00 06/25/18 20:59 05/26/18 20:48 40 MG Heparin Sodium (Porcine) (Heparin 100 Unit/ml 5ml Flush) 5 ml PRN PRN IV 05/27/18 01:30 06/26/18 01:29 Insulin Aspart (novoLOG ASPART) SLIDING SCALE [facility] 05/27/18 17:15 06/26/18 17:14 Norepinephrine Bitartrate 8 mg/ Dextrose 508 ml @ 0 mls/hr Q0M IV 05/27/18 13:30 06/26/18 13:29 05/28/18 17:26 0.07 MLS/HR Midazolam HCl 250 ml @ 0 mls/hr Q0M IV 05/27/18 13:19 06/26/18 13:18 05/27/18 13:55 2 MLS/HR Fentanyl Citrate 250 ml @ 5 mls/hr Q24H IV 05/27/18 13:30 06/10/18 13:29 05/28/18 08:08 20 MLS/HR Aspirin (Aspirin Chew) 81 mg DAILY PO 05/28/18 09:00 06/27/18 08:59 05/28/18 10:22 81 MG Levalbuterol (Xopenex Hfa Inhaler) 4 puffs Q6R INH 05/27/18 15:00 06/26/18 14:59 05/28/18 14:45 4 PUFFS Pantoprazole Sodium 40 mg/ Syringe 10 ml @ 5 mls/min DAILY@09,21 IV 05/27/18 21:00 06/26/18 20:59 05/28/18 10:24 5 MLS/MIN Miscellaneous Information (Consult Glycemic Management Pharmacy) 1 ea UD PRN N/A 05/27/18 15:14 06/26/18 15:13 Insulin Human Regular 250 units/ Sodium Chloride 252.5 ml @ 0 mls/hr Q24H IV 05/27/18 16:01 06/26/18 16:00 05/28/18 15:50 0.7 MLS/HR Heparin Sodium (Porcine) (Heparin 10 Unit/ ml 5 ml Flush) 5 ml PRN PRN FLUSH 05/28/18 00:15 06/27/18 00:14 Dobutamine HCl 250 ml @ 0 mls/hr Q0M PRN IV 05/28/18 09:00 06/27/18 08:59 05/28/18 16:36 8.6 MLS/HR Heparin Sodium/ Dextrose 500 ml @ 16 mls/hr Q24H IV 05/28/18 09:30 06/27/18 09:29 05/28/18 10:14 14 MLS/HR Voriconazole 340 mg/Sodium Chloride 100 ml @ 50 mls/hr Q12H IV 05/28/18 10:00 05/28/18 23:59 05/28/18 10:12 50 MLS/HR Ferrous Sulfate (Feosol Elix) 325 mg BIDM PO 05/28/18 16:30 06/27/18 16:29 05/28/18 17:39 325 MG Multivitamins Therapeutic (Cerovite Liquid) 15 ml QAM PO 05/28/18 12:00 06/27/18 11:59 05/28/18 10:48 15 ML Voriconazole 230 mg/Sodium Chloride 100 ml @ 75 mls/hr Q12H IV 05/29/18 10:00 06/28/18 09:59 Heparin Sodium (Porcine) 4000 unit/Syringe 4 ml @ 10 mls/min 1800 ONCE IV 05/28/18 18:00 05/28/18 18:01 05/28/18 17:51 10 MLS/MIN Review of Systems Patient is intubated and so could not obtain review of systems. Physical Exam - Presently he is intubated, hemodynamically unstable, receiving was a process , somewhat uncomfortable with the endotracheal tube, - HEENT: no icterus, pallor, - Neck: No palpable cervical lymphadenopathy. - Chest: emphysematous chest, bilateral crepitations noted,. - Abdomen: soft, nontender, no hepatomegaly, no splenomegaly. - No focal neuro deficit. - Extremities: finger clubbing present, no leg edema. Laboratory Results :- Hemoglobin level dropped down to around 6.5, has mild anemia for the last few years with hemoglobin ranging from 8-9 g/dL, received 4 units of PRBC so far. - Hemoglobin level improved to around 9.7 g/dL. - Polymorphonuclear leukocytosis noted - Platelet count is on the higher side which appears to be reactive in nature in the range of 500,000-800,000. - BUN/creatinine: 20/1.1, calcium 8.0,- Troponin level increased from 0.04 > 14, now it is around 10.4. - Sputum fungal culture grew aspergillosis (04/09/2018). - Blood culture negative so far. - Tracheal aspirate fungal culture pending. Assessment & Plan 72-year-old male, a case of limited stage small-cell lung cancer, S/P combined chemoradiation treatment with Etoposide and Carboplatin, last cycle of chemotherapy received in June 2016. Now for the last the several months he is having multilobular pneumonia, aspergillosis involving the lung, cavitating lesions noted in the left upper lobe, severe emphysematous changes noted in the remaining lungs,, poor cardiac function noted, troponin level is elevated, now on mechanical ventilator support , vasopressors, evidence of pulmonary edema noted. I discussed his case with the sanitation officer as well as family members, does not appear to be recurrent disease but I would not consider further diagnostic workup to look for cancer diagnosis in his case as he is not a candidate for any kind of systemic treatment for recurrent cancer. I separately discussed with the patient's daughter regarding the recent imaging studies, also discussed with patient's daughter and the regarding his overall clinical condition and poor prognosis associated it and they understood that quite well. Agree about current medical management. He has anemia, received foolish of PRBC , consider for blood transfusion as needed. No further workup for anemia at this time. Will follow-up. Thanks for the consultation. Kirit Poole MD Hem/Onc
[2018-05-28] MEDS ORDERED: HEPARIN IV BOLUS 4,000 UNIT in SYRINGE 0 ML IV ONE (18:00)
[2018-05-28] MEDS: SIMVASTATIN 40 MG TAB PO SCH (21:10)
[2018-05-28 22:36] LABS: HEMATOCRIT 27.5 % (42-52); HEMOGLOBIN 9.1 g/dL (14.0-18.0)
[2018-05-28 23:54] LABS: PTT PATIENT 43.9 SECONDS (21.0-31.0)
[2018-05-29] VITALS (52 sets, daily range): BP systolic 6–300; BP diastolic -50–300; PULSE 76–115; TEMP 35.4–37.3; O2SAT 87–99
[2018-05-29] MEDS ORDERED: HEPARIN IV BOLUS 2,000 UNIT in SYRINGE 0 ML IV ONE (01:30)
[2018-05-29] MEDS: LEValbuterol HFA 15GM INHALER INH SCH ×4 (02:14→19:26)
[2018-05-29] MEDS ORDERED: VANCOMYCIN TROUGH ONE (05:30)
[2018-05-29] MEDS: INSULIN ASPART 100 UNITS/ML 3 ML PEN SC SCH ×4 (08:00→21:00)
[2018-05-29 08:09] LABS: HEMATOCRIT 28.3 % (42-52); HEMOGLOBIN 9.2 g/dL (14.0-18.0)
[2018-05-29 08:22] LABS: PTT PATIENT 39.6 SECONDS (21.0-31.0)
[2018-05-29] MEDS ORDERED: HYDROCORTISONE IV 100 MG in SYRINGE 0 ML IV ONE (08:30)
[2018-05-29] MEDS: FERROUS SULFATE 325 MG/7.4 ML UDP PO SCH ×2 (08:34→16:05)
[2018-05-29] MEDS: ASPIRIN 81 MG CHEW PO SCH (08:34)
[2018-05-29] MEDS: MULTIVITAMINS W/MINERALS 15ML UDP PO SCH (08:35)
[2018-05-29] MEDS: PANTOprazole INJ 40 MG in SYRINGE 0 ML IV SCH ×2 (08:37→21:32)
--- NOTE | 2018-05-29 08:53 | DIAGNOSTIC IMAGING REPORT ---
SINGLE VIEW CHEST CLINICAL HISTORY: Respiratory failure. FINDINGS: An AP, portable, upright chest radiograph is compared to dated 05/28/2018 and correlated with chest CT dated 03/11/2018. The examination is degraded by portable technique and patient rotation. A left subclavian central venous infusion port is again noted. An enteric tube, an endotracheal tube, and a right internal jugular central venous catheter are unchanged in position. The heart is top normal for projection and there is atherosclerotic calcification of the thoracic aorta. Advanced emphysema and chronic interstitial thickening are similar to previous. Left apical consolidation/fibrosis is unchanged from prior examinations. Airspace consolidation is again seen at the lung bases, right greater than left. Small pleural effusions are identified There is no pneumothorax. The skeletal structures are osteopenic. The bony thorax appears intact. IMPRESSION: 1. Stable lines and tubes. 2. Bibasilar airspace consolidation is unchanged from yesterday and remains typical in appearance for pneumonia. Radiographic follow-up to resolution is recommended. 3. Small pleural effusions. 4. Advanced emphysema. 5. Left apical fibrosis/consolidation is similar in appearance to prior examinations. Electronically signed by: Demario Geller M.D. 05/29/2018 8:51 AM Dictated Date/Time: 05/29/2018 8:49 AM
[2018-05-29] MEDS ORDERED: PEPTAMEN 1.5 CAL 1000ML BAG OG PRN (09:00)
[2018-05-29] MEDS ORDERED: HEPARIN IV BOLUS 4,000 UNIT in SYRINGE 0 ML IV ONE (09:30)
[2018-05-29] MEDS: HEPARIN 25,000 UNIT/500ML D5W 500 ML IV SCH (09:57)
[2018-05-29] MEDS: VORICONAZOLE IV SCH ×2 (09:58→21:41)
[2018-05-29] MEDS: SODIUM CHLORIDE 0.9% IV SCH ×2 (09:58→21:41)
[2018-05-29 10:09] LABS: CALCIUM 7.8 mg/dl (8.5-10.1); CREATININE 0.93 mg/dl (0.60-1.40); PHOSPHORUS 2.3 mg/dl (2.5-4.9); POTASSIUM 3.6 mmol/L (3.5-5.1)
--- NOTE | 2018-05-29 10:32 | Pharmacy Progress Note ---
Pharmacy Glycemic Short Note 2 Date of Service May 29, 2018. OUTPATIENT ANTIDIABETIC REGIMEN: * Metformin 1gm PO BID * Glipizide ER 2.5mg PO BID * A1c = 6.7% Item Value Date Time Bedside Glucose (other) 142 mg/dl H 05/29/18 0935 Bedside Glucose (other) 105 mg/dl H 05/29/18 0809 Bedside Glucose (other) 107 mg/dl H 05/29/18 0718 Bedside Glucose (other) 104 mg/dl H 05/29/18 0614 Bedside Glucose (other) 108 mg/dl H 05/29/18 0520 Bedside Glucose (other) 114 mg/dl H 05/29/18 0424 Bedside Glucose (other) 119 mg/dl H 05/29/18 0322 Bedside Glucose (other) 142 mg/dl H 05/29/18 0122 Bedside Glucose (other) 154 mg/dl H 05/29/18 0027 Bedside Glucose (other) 169 mg/dl H 05/28/18 2343 Bedside Glucose (other) 205 mg/dl H 05/28/18 2214 Bedside Glucose (other) 223 mg/dl H 05/28/18 2110 Bedside Glucose (other) 237 mg/dl H 05/28/182011 Bedside Glucose (other) 249 mg/dl H 05/28/18 1910 Bedside Glucose (other) 251 mg/dl H 05/28/18 1804 Bedside Glucose (other) 266 mg/dl H 05/28/18 1705 Bedside Glucose (other) 253 mg/dl H 05/28/18 1602 Bedside Glucose (other) 261 mg/dl H 05/28/18 1512 Bedside Glucose (other) 263 mg/dl H 05/28/18 1350 Bedside Glucose (other) 236 mg/dl H 05/28/18 1250 Bedside Glucose (other) 166 mg/dl H 05/28/18 1049 Bedside Glucose (other) 163 mg/dl H 05/28/18 0855 ASSESSMENT: 05/29/18 * Hyperglycemia worsened mid-day yesterday, possibly due to addition of Dobutamine infusion + Heparin drip mixed in D5W * BSGs did return to goal as the insulin drip was titrated * This AM, Norepi was weaned off and Dobutamine is also being weaned down. Heparin drip will also be cut later today. * Pt on CPAP trial for possible extubation * Hydrocortisone IV added due to random cortisol less than 15 and need for pressor support. This will likely lead to increased insulin resistance. * Tube feeds being started today, 10cc/hr "trickle" Peptamen has been ordered * Given multiple increasing and decreasing stressors, paired with deterioration in glycemic control yesterday - will continue IV insulin drip for now until effects of these changes are evident on insulin resistance and glycemic control. 05/28/18 * Type 2 diabetic admitted anemia and hypoxemic respiratory failure, pneumonia suspected based upon CXR, pulmonary edema seen on bronchoscopy * Pt remains intubated, requiring continuous infusions of fentanyl/midazolam for sedation, norepi infusion for pressure support and dobutamine being added today for low EF, likely element of cardiogenic shock. Troponin on the rise, NSTEMI suspected * IV insulin infusion per protocol started yesterday for severe hyperglycemia * BSGs down to goal range overnight * Insulin gtt infusing at 0.5unit/hr this AM * Given multiple significant stressors, including IV pressor use would recommend continuing w/ IV insulin infusion due ease of titration and inconsistent SQ absorption while hypotensive and on pressors. PLAN FOR INPATIENT GLYCEMIC CONTROL: * Hold outpatient oral diabetes medications * Continue IV insulin infusion but widen goal range to 120 - 180 mg/dL PLAN FOR DISCHARGE: * to be determined
[2018-05-29] MEDS: DOBUTAMINE 500MG / D5W IV PRN (12:32)
[2018-05-29] MEDS ORDERED: MAGNESIUM SULFATE 1GM / D5W 100 ML IV STA (13:10)
[2018-05-29] MEDS ORDERED: POTASSIUM CHLORIDE 20 MEQ/15 ML UDC PO STA (13:21)
[2018-05-29] MEDS ORDERED: POTASSIUM PHOS 3 MMOL/1 ML INFUSION IV STA (13:21)
[2018-05-29] MEDS ORDERED: POTASSIUM PHOSPHATE INJ 24 MMOL in SODIUM CHLORIDE 0.9% 500ML 500 ML IV ONE (13:30)
--- NOTE | 2018-05-29 13:40 | Cardiology Follow-Up ---
Subjective Date of Service: May 29, 2018. Pt evaluation today including: conversation w/ family, physical exam, chart review, lab review, review of studies, conversation w/ farm service consultant, review of inpatient medication list, conversation w/ attending History of Present Illness The patient is intubated and sedated. Social History Smoking Status: Former Smoker History of Alcohol Use: No Review of Systems Respiratory: + cough, + sputum, + shortness of breath, + dyspnea on exertion, + dyspnea at rest, + hemoptysis This cannot be obtained as the patient is currently intubated and sedated Objective Vital Signs Past 12 Hours Date Time Temp Pulse Resp B/P (MAP) Pulse Ox O2 Delivery O2 Flow Rate FiO2 05/29/18 11:17 30 05/29/18 11:15 36.9 91 21 110/45 (66) 98 CPAP 30 Mechanical Ventilator 05/29/18 11:01 36.9 90 21 103/45 (64) 98 CPAP 30 Mechanical Ventilator 05/29/18 11:00 36.9 91 22 104/45 (64) 97 CPAP 30 Mechanical Ventilator 05/29/18 10:45 37.0 89 23 101/45 (63) 98 CPAP 30 Mechanical Ventilator 05/29/18 10:31 37.0 93 22 81/50 (60) 98 CPAP 30 Mechanical Ventilator 05/29/18 10:00 37.0 99 28 117/45 (69) 96 CPAP 30 Mechanical Ventilator 05/29/18 09:00 37.0 99 24 114/54 (74) 98 CPAP 30 Mechanical Ventilator 05/29/18 08:00 Mechanical Ventilator 30 05/29/18 08:00 37.1 103 25 130/59 (82) 98 CPAP 30 Mechanical Ventilator 05/29/18 08:00 Mechanical Ventilator 30 05/29/18 08:00 30 05/29/18 07:39 30 05/29/18 07:36 30 05/29/18 06:31 37.2 108 22 92/46 (61) 99 05/29/18 06:30 37.2 108 22 96/47 (63) 99 Mechanical Ventilator 30 05/29/18 06:15 37.2 110 21 107/102 (104) 99 Mechanical Ventilator 30 05/29/18 06:01 37.3 112 23 108/56 (73) 98 Mechanical Ventilator 30 05/29/18 06:00 37.3 110 21 110/54 (72) 98 Mechanical Ventilator 30 05/29/18 05:45 37.3 114 21 6/-50 (-32) 97 Mechanical Ventilator 30 05/29/18 05:32 37.3 113 24 97/51 (66) 95 Mechanical Ventilator 30 05/29/18 05:30 109 5 104/50 (68) 87 Mechanical Ventilator 30 05/29/18 05:15 35.6 114 19 109/54 (72) 97 Mechanical Ventilator 05/29/18 05:08 30 05/29/18 05:01 35.7 115 21 109/52 (71) 98 Mechanical Ventilator 30 05/29/18 05:00 35.7 115 21 108/51 (70) 98 Mechanical Ventilator 05/29/18 04:31 35.5 113 21 107/49 (68) 98 Mechanical Ventilator 05/29/18 04:01 35.5 109 19 108/48 (68) 97 Mechanical Ventilator 05/29/18 04:00 35.5 109 20 107/48 (67) 97 Mechanical Ventilator 05/29/18 03:31 35.5 111 19 118/49 (72) 97 Mechanical Ventilator 05/29/18 03:01 35.5 112 19 118/51 (73) 97 Mechanical Ventilator 05/29/18 03:00 35.5 110 19 119/49 (72) 97 Mechanical Ventilator 05/29/18 02:31 35.4 114 21 118/50 (72) 98 Mechanical Ventilator 05/29/18 02:01 35.5 108 25 102/46 (64) 98 Mechanical Ventilator 05/29/18 02:00 35.5 110 28 102/47 (65) 98 Mechanical Ventilator 05/29/18 01:45 30 Last Recorded Weight-Kilograms: 55.700 Intake & Output 8-Hour Column 05/29/18 05/30/18 05/30/18 16:00 00:00 08:00 Intake Total 293 ml Output Total 600 ml Balance -307 ml 24-Hour Column 05/30/18 08:00 Intake Total 293 ml Output Total 600 ml Balance -307 ml Physical Exam Patient was intubated and sedated HEENT: Pupils are equal Neuro: Could not be assessed due to his sedated status Neck: Patient's neck is supple. He has palpable carotid pulses bilaterally without bruits on auscultation. The thyroid is not enlarged. Lungs: Clear to auscultation bilaterally. He has good air movement without use of accessory muscles. No rales wheezes or rhonchi. Cardiac: Heart demonstrates a regular rate and rhythm. Normal S1 and S2. No murmurs on examination. Pulses: The patient has palpable radial pulses bilaterally that are equal in intensity Extremities: There was no evidence of hypoperfusion. There is no cyanosis or clubbing. There is no edema. Skin: I did not appreciate any rashes on examination today. Data Laboratory Results: Last 24 Hours Test 05/28/18 13:49 05/28/18 13:50 05/28/18 15:12 05/28/18 16:02 Hemoglobin 9.7 g/dL Hematocrit 29.8 % Troponin I 10.400 ng/ml Bedside Glucose (other) 263 mg/dl 261 mg/dl 253 mg/dl Test 05/28/18 16:59 05/28/18 17:05 05/28/18 18:04 05/28/18 19:10 Activated Partial Thromboplast Time 35.7 SECONDS Partial Thromboplastin Ratio 1.4 Bedside Glucose (other) 266 mg/dl 251 mg/dl 249 mg/dl Test 05/28/18 20:12 05/28/18 21:10 05/28/18 22:14 05/28/18 22:24 Bedside Glucose (other) 237 mg/dl 223 mg/dl 205 mg/dl Hemoglobin 9.1 g/dL Hematocrit 27.5 % Troponin I 6.140 ng/ml Test 05/28/18 23:38 05/28/18 23:43 05/29/18 00:27 05/29/18 01:22 Activated Partial Thromboplast Time 43.9 SECONDS Partial Thromboplastin Ratio 1.7 Bedside Glucose (other) 169 mg/dl 154 mg/dl 142 mg/dl Test 05/29/18 03:22 05/29/18 04:24 05/29/18 05:20 05/29/18 06:08 Bedside Glucose (other) 119 mg/dl 114 mg/dl 108 mg/dl Blood Gas Sample Site Art Line Bedside Blood Gas pH (LAB) 7.39 Bedside Blood Gas pCO2 (LAB) 37 mmHg Bedside Blood Gas pO2 (LAB) 95 mmHg Bedside Blood Gas HCO3 (LAB) 23 meq/L Bedside Blood Gas Total CO2 24 mEq/l Bedside Blood Gas Base Excess (LAB) -2.0 meq/L Bedside Blood Gas O2 Saturation 97.0 % Lester Test NA Oxygen Delivery Device Ventilator Bedside Oxygen Rate (breaths/min) 12 Bedside FiO2 30 % Blood Gas PEEP 8 Test 05/29/18 06:14 05/29/18 07:18 05/29/18 08:00 05/29/18 08:09 Bedside Glucose (other) 104 mg/dl 107 mg/dl 105 mg/dl Hemoglobin 9.2 g/dL Hematocrit 28.3 % Activated Partial Thromboplast Time 39.6 SECONDS Partial Thromboplastin Ratio 1.5 Troponin I 4.740 ng/ml Test 05/29/18 09:31 05/29/18 09:35 05/29/18 10:25 05/29/18 11:16 Sodium Level 136 mmol/L Potassium Level 3.6 mmol/L Chloride Level 106 mmol/L Carbon Dioxide Level 23 mmol/L Anion Gap 7.0 mmol/L Blood Urea Nitrogen 18 mg/dl Creatinine 0.93 mg/dl Est Creatinine Clear Calc Drug Dose 54.9 ml/min Estimated GFR () 93.4 Estimated GFR (Non- 80.6 BUN/Creatinine Ratio 19.1 Random Glucose 136 mg/dl Calcium Level 7.8 mg/dl Phosphorus Level 2.3 mg/dl Magnesium Level 2.1 mg/dl Bedside Glucose (other) 142 mg/dl 137 mg/dl 144 mg/dl Test 05/29/18 12:16 Bedside Glucose (other) 149 mg/dl Imaging: EKG: Telemetry reviewed: Assessment and Plan 1. Acute decompensated left ventricular systolic failure: His oxygen requirement is improved. His lung examination is benign. While his eyes and nose suggest he is volume positive he appears to be affecting a good diuresis without diuretics. I think this is the primary therapy. Once he is more hemodynamically stable we can consider reinstitution of standard medical therapy. 2. Ischemic cardiomyopathy: The acuity of his decompensation is unclear. Once he is more hemodynamically stable we will have an opportunity discuss the particulars of medical therapy and the need for coronary assessment. 3. Coronary artery disease: He did have elevation in his biomarkers which suggest at least a type 2 infarct if not an acute coronary syndrome. I favor the former rather than the latter given the resolution without any particular intervention. I think if he had a significant acute coronary event he likely would have suffered a more complicated initial course. A coronary assessment would seem reasonable at some point although our ability to intervene may be limited by bleeding issues. 4. Prolonged QTC: The most current EKG suggests a prolonged QTC. This was after administration of his antifungals. I think there is some difficulty in assessing the true QTC. Will continue to monitor this necessary therapy.
--- NOTE | 2018-05-29 13:56 | Critical Care Progress Note ---
Critical Care Progress Note Date of Service May 29, 2018. ICU Day ICU Day Number: [address] Nick Subjective No overnight events, weaning sedation, weaning vent, currently tolerating CPAP trial Objective General: RASS -2. Skin: Warm, dry, Head: Atraumatic Ears, nose, mouth and throat endotracheal tube present Cardiovascular: Normal peripheral perfusion Respiratory: no respiratory distress, mildly bloody secretions Gastrointestinal: Non distended Musculoskeletal: No deformity Assessment & Plan Reason Critically Ill: 72-year-old male with possibly recurrent lung cancer who has hypoxic respiratory failure pneumonia. PLAN: Neuro: Wean sedation for sedation holiday -Improved from yesterday continue to wean Resp: Hypoxic respiratory failure -Weaned inspiratory pressure and PEEP -Aspergillus testing and fungal elements remain negative or unreported to date CV: Hypotension Possible cardiomyopathy -Continue aspirin, did not tolerate Plavix secondary to recurrent epistaxis -Patient was placed on heparin for up trending troponins, they are now downtrending and I will discontinue the heparin infusion later this evening and he will have had 24 hours of heparin therapy, I believe he has had demand ischemia secondary to tachycardia associated with his dysrhythmia Reduced EF heart failure -Trial of dobutamine: Weaned off Levophed, weaning dobutamine currently -Check random cortisol: Low, will give supplemental hydrocortisone Prolonged QTC -Discontinue Zofran -Discussed with Dr. Chaudhry, optimize electrolytes and in risk benefits status patient likely needs voriconazole given hypoxic respiratory failure. Repeat EKG demonstrates QTC of 530 which was obtained 1.5 hours after second dose, will obtain EKG prior to this evening's dose Fluids/Renal: Likely euvolemic -No additional fluids at this time getting large amount of fluids from medications ID: Discontinue antibacterial 05/28 -Voriconazole for possible aspergillus -Send 1 3 fungitel, aspergillus panel -Reviewed outpatient records, last pulmonary note was placed on 12 day course of itraconazole - GI/Nutrition: N.p.o. -Tolerating trickle feeds Heme: Anemia -Converting to DVT prophylactic doses this evening Endocrine: Hyperglycemia -Continue IV insulin secondary to vasopressor use Vascular access: Central line, arterial line Code Status: DO NOT RESUSCITATE Patient was discussed on multidisciplinary rounds I have personally spent 90 minutes of critical care time in the direct management of this patient. This is a life/limb threatening event. This includes time spent evaluating patient, direct bedside care, chart review, placing orders, interpretation of diagnostic studies, discussion with consultants, patient, and/or family members regarding treatment decisions, as well as other required patient management activities. This time is exclusive of all separately billable procedures, and teaching time and separate from and in addition to any other critical care service time. Consults & Procedures Consultants: Cardiology: Isidoro Infectious disease: Facundo Data Medications: Current Inpatient Medications Medications (Trade) Dose Ordered Sig/Vianey Route Start Time Stop Time Status Last Admin Dose Admin Acetaminophen (Tylenol Tab) 650 mg Q4H PRN PO 05/26/18 15:00 06/25/18 14:59 05/27/18 05:18 650 MG Magnesium Hydroxide (Milk Of Magnesia Susp) 30 ml Q6H PRN PO 05/26/18 15:00 06/25/18 14:59 Glucose (Glucose 40% Gel) 15-30 GRAMS 15 GRAMS... UD PRN PO 05/26/18 15:00 06/25/18 14:59 Glucose (Glucose Chew Tab) 4-8 Tablets 4 Tabl... UD PRN PO 05/26/18 15:00 06/25/18 14:59 Dextrose (Dextrose 50% 50ML Syringe) 25-50ML 25ML FOR ... UD PRN IV 05/26/18 15:00 06/25/18 14:59 05/27/18 21:44 25 ML Glucagon (Glucagon Inj) 1 mg UD PRN SQ 05/26/18 15:00 06/25/18 14:59 Carbohydrates (Carbohydrates For Hypoglycemia) 15-30 GRAMS 15 grams if BSG 54-69... UD PRN PO 05/26/18 15:00 06/25/18 14:59 Finasteride (Proscar Tab) 5 mg QAM PO 05/27/18 08:00 06/26/18 08:59 Future Hold 05/28/18 10:21 5 MG Simvastatin (Zocor Tab) 40 mg QPM PO 05/26/18 21:00 06/25/18 20:59 05/28/18 21:10 40 MG Heparin Sodium (Porcine) (Heparin 100 Unit/ml 5ml Flush) 5 ml PRN PRN IV 05/27/18 01:30 06/26/18 01:29 Insulin Aspart (novoLOG ASPART) [facility]IDING [facility]ALE [facility] 05/27/18 17:15 06/26/18 17:14 Midazolam HCl 250 ml @ 0 mls/hr Q0M IV 05/27/18 13:19 06/26/18 13:18 05/27/18 13:55 2 MLS/HR Fentanyl Citrate 250 ml @ 5 mls/hr Q24H IV 05/27/18 13:30 06/10/18 13:29 05/28/18 23:08 15 MLS/HR Aspirin (Aspirin Chew) 81 mg DAILY PO 05/28/18 09:00 06/27/18 08:59 05/29/18 08:34 81 MG Levalbuterol (Xopenex Hfa Inhaler) 4 puffs Q6R INH 05/27/18 15:00 06/26/18 14:59 05/29/18 07:32 4 PUFFS Pantoprazole Sodium 40 mg/ Syringe 10 ml @ 5 mls/min DAILY@09,21 IV 05/27/18 21:00 06/26/18 20:59 05/29/18 08:37 5 MLS/MIN Miscellaneous Information (Consult Glycemic Management Pharmacy) 1 ea UD PRN N/A 05/27/18 15:14 06/26/18 15:13 Insulin Human Regular 250 units/ Sodium Chloride 252.5 ml @ 0 mls/hr Q24H IV 05/27/18 16:01 06/26/18 16:00 05/28/18 15:50 0.7 MLS/HR Heparin Sodium (Porcine) (Heparin 10 Unit/ ml 5 ml Flush) 5 ml PRN PRN FLUSH 05/28/18 00:15 06/27/18 00:14 Dobutamine HCl 250 ml @ 0 mls/hr Q0M PRN IV 05/28/18 09:00 06/27/18 08:59 05/29/18 12:32 3.5 MLS/HR Heparin Sodium/ Dextrose 500 ml @ 19 mls/hr Q24H IV 05/28/18 09:30 05/29/18 21:30 05/29/18 09:57 19 MLS/HR Ferrous Sulfate (Feosol Elix) 325 mg BIDM PO 05/28/18 16:30 06/27/18 16:29 05/29/18 08:34 325 MG Multivitamins Therapeutic (Cerovite Liquid) 15 ml QAM PO 05/28/18 12:00 06/27/18 11:59 05/29/18 08:35 15 ML Voriconazole 230 mg/Sodium Chloride 100 ml @ 75 mls/hr Q12H IV 05/29/18 10:00 06/28/18 09:59 Future Hold 05/29/18 09:58 75 MLS/HR Hydrocortisone Sodium Succinate 50 mg/Syringe 1 ml @ 4 mls/min Q8H IV 05/29/18 16:00 05/31/18 08:01 Enteral Nutritional Formula (Peptamen 1.5) 1,000 ml UD PRN OG 05/29/18 09:00 06/28/18 08:59 05/29/18 09:57 1,000 ML Miscellaneous (Stop Order) 1 ea TODAY@2130 ONCE N/A 05/29/18 21:30 05/29/18 21:31 Heparin Sodium (Porcine) (Heparin Sq 5000 Unit/0.5ml) 5,000 unit Q12H SQ 05/30/18 06:00 06/29/18 05:59 Magnesium Sulfate 100 ml @ 100 mls/hr NOW STAT IV 05/29/18 13:10 05/29/18 14:09 Potassium Phosphate 24 mmol/ Sodium Chloride 508 ml @ 88 mls/hr ONE ONCE IV 05/29/18 13:30 05/29/18 19:16 I & O: 24-Hour Column 05/30/18 08:00 Intake Total 293 ml Output Total 600 ml Balance -307 ml Vital Signs: Date Time Temp Pulse Resp B/P (MAP) Pulse Ox O2 Delivery O2 Flow Rate FiO2 05/29/18 11:17 30 05/29/18 11:15 36.9 91 21 110/45 (66) 98 CPAP 30 Mechanical Ventilator 05/29/18 11:01 36.9 90 21 103/45 (64) 98 CPAP 30 Mechanical Ventilator 05/29/18 11:00 36.9 91 22 104/45 (64) 97 CPAP 30 Mechanical Ventilator 05/29/18 10:45 37.0 89 23 101/45 (63) 98 CPAP 30 Mechanical Ventilator 05/29/18 10:31 37.0 93 22 81/50 (60) 98 CPAP 30 Mechanical Ventilator 05/29/18 10:00 37.0 99 28 117/45 (69) 96 CPAP 30 Mechanical Ventilator 05/29/18 09:00 37.0 99 24 114/54 (74) 98 CPAP 30 Mechanical Ventilator 05/29/18 08:00 Mechanical Ventilator 30 05/29/18 08:00 37.1 103 25 130/59 (82) 98 CPAP 30 Mechanical Ventilator 05/29/18 08:00 Mechanical Ventilator 30 05/29/18 08:00 30 05/29/18 07:39 30 05/29/18 07:36 30 05/29/18 06:31 37.2 108 22 92/46 (61) 99 05/29/18 06:30 37.2 108 22 96/47 (63) 99 Mechanical Ventilator 30 05/29/18 06:15 37.2 110 21 107/102 (104) 99 Mechanical Ventilator 30 05/29/18 06:01 37.3 112 23 108/56 (73) 98 Mechanical Ventilator 30 05/29/18 06:00 37.3 110 21 110/54 (72) 98 Mechanical Ventilator 30 05/29/18 05:45 37.3 114 21 6/-50 (-32) 97 Mechanical Ventilator 30 05/29/18 05:32 37.3 113 24 97/51 (66) 95 Mechanical Ventilator 30 05/29/18 05:30 109 5 104/50 (68) 87 Mechanical Ventilator 30 05/29/18 05:15 35.6 114 19 109/54 (72) 97 Mechanical Ventilator 30 05/29/18 05:08 30 05/29/18 05:01 35.7 115 21 109/52 (71) 98 Mechanical Ventilator 30 05/29/18 05:00 35.7 115 21 108/51 (70) 98 Mechanical Ventilator 30 05/29/18 04:31 35.5 113 21 107/49 (68) 98 Mechanical Ventilator 30 05/29/18 04:01 35.5 109 19 108/48 (68) 97 Mechanical Ventilator 30 05/29/18 04:00 35.5 109 20 107/48 (67) 97 Mechanical Ventilator 30 05/29/18 03:31 35.5 111 19 118/49 (72) 97 Mechanical Ventilator 30 05/29/18 03:01 35.5 112 19 118/51 (73) 97 Mechanical Ventilator 30 05/29/18 03:00 35.5 110 19 119/49 (72) 97 Mechanical Ventilator 30 05/29/18 02:31 35.4 114 21 118/50 (72) 98 Mechanical Ventilator 30 05/29/18 02:01 35.5 108 25 102/46 (64) 98 Mechanical Ventilator 30 05/29/18 02:00 35.5 110 28 102/47 (65) 98 Mechanical Ventilator 30 05/29/18 01:45 30 05/29/18 01:01 35.7 104 20 102/44 (63) 97 Mechanical Ventilator 30 05/29/18 01:00 35.7 106 19 103/51 (68) 97 Mechanical Ventilator 30 05/29/18 00:31 35.6 106 21 101/50 (67) 96 Mechanical Ventilator 30 05/29/18 00:01 35.5 107 25 100/38 (58) 98 Mechanical Ventilator 30 05/29/18 00:00 35.5 112 25 121/44 (69) 98 Mechanical Ventilator 30 05/28/18 23:31 35.5 117 30 112/52 (72) 98 Mechanical Ventilator 30 05/28/18 23:01 35.6 105 20 108/51 (70) 98 Mechanical Ventilator 30 05/28/18 23:00 30 05/28/18 23:00 35.6 102 19 107/51 (69) 98 Mechanical Ventilator 30 05/28/18 22:01 35.6 112 21 109/49 (69) 98 Mechanical Ventilator 30 05/28/18 22:00 35.6 109 21 109/48 (68) 97 Mechanical Ventilator 30 05/28/18 21:31 35.6 110 21 126/42 (70) 98 Mechanical Ventilator 30 05/28/18 21:01 35.7 115 21 119/44 (69) 96 Mechanical Ventilator 30 05/28/18 21:00 35.7 115 22 126/42 (70) 97 Mechanical Ventilator 30 05/28/18 20:01 35.7 120 22 108/48 (68) 96 Mechanical Ventilator 30 05/28/18 20:00 Mechanical Ventilator 30 05/28/18 20:00 30 05/28/18 20:00 35.7 121 22 121/48 (72) 96 Mechanical Ventilator 30 05/28/18 19:45 30 05/28/18 19:31 35.7 120 22 114/46 (68) 96 Mechanical Ventilator 30 05/28/18 19:01 35.7 121 22 125/47 (73) 96 Mechanical Ventilator 30 05/28/18 19:00 35.7 121 24 122/44 (70) 96 Mechanical Ventilator 30 05/28/18 18:01 35.7 121 22 108/47 (67) 96 Mechanical Ventilator 30 05/28/18 17:49 30 05/28/18 17:00 35.8 123 21 98/43 (61) 95 Mechanical Ventilator 30 05/28/18 16:54 96 Mechanical Ventilator 30 05/28/18 16:45 30 05/28/18 16:00 35.8 130 24 110/44 (66) 96 Mechanical Ventilator 30 05/28/18 15:31 35.7 128 27 112/45 (67) 95 Mechanical Ventilator 30 05/28/18 15:00 36.8 114 21 125/47 (73) 96 Mechanical Ventilator 30 05/28/18 14:45 30 05/28/18 14:00 36.9 105 16 107/44 (65) 96 Mechanical Ventilator 30 Laboratory Results: Last 24 Hours Test 05/28/18 13:49 05/28/18 13:50 05/28/18 15:12 05/28/18 16:02 Hemoglobin 9.7 g/dL Hematocrit 29.8 % Troponin I 10.400 ng/ml Bedside Glucose (other) 263 mg/dl 261 mg/dl 253 mg/dl Test 05/28/18 16:59 05/28/18 17:05 05/28/18 18:04 05/28/18 19:10 Activated Partial Thromboplast Time 35.7 SECONDS Partial Thromboplastin Ratio 1.4 Bedside Glucose (other) 266 mg/dl 251 mg/dl 249 mg/dl Test 05/28/18 20:12 05/28/18 21:10 05/28/18 22:14 05/28/18 22:24 Bedside Glucose (other) 237 mg/dl 223 mg/dl 205 mg/dl Hemoglobin 9.1 g/dL Hematocrit 27.5 % Troponin I 6.140 ng/ml Test 05/28/18 23:38 05/28/18 23:43 05/29/18 00:27 05/29/18 01:22 Activated Partial Thromboplast Time 43.9 SECONDS Partial Thromboplastin Ratio 1.7 Bedside Glucose (other) 169 mg/dl 154 mg/dl 142 mg/dl Test 05/29/18 03:22 05/29/18 04:24 05/29/18 05:20 05/29/18 06:08 Bedside Glucose (other) 119 mg/dl 114 mg/dl 108 mg/dl Blood Gas Sample Site Art Line Bedside Blood Gas pH (LAB) 7.39 Bedside Blood Gas pCO2 (LAB) 37 mmHg Bedside Blood Gas pO2 (LAB) 95 mmHg Bedside Blood Gas HCO3 (LAB) 23 meq/L Bedside Blood Gas Total CO2 24 mEq/l Bedside Blood Gas Base Excess (LAB) -2.0 meq/L Bedside Blood Gas O2 Saturation 97.0 % Lester Test NA Oxygen Delivery Device Ventilator Bedside Oxygen Rate (breaths/min) 12 Bedside FiO2 30 % Blood Gas PEEP 8 Test 05/29/18 06:14 05/29/18 07:18 05/29/18 08:00 05/29/18 08:09 Bedside Glucose (other) 104 mg/dl 107 mg/dl 105 mg/dl Hemoglobin 9.2 g/dL Hematocrit 28.3 % Activated Partial Thromboplast Time 39.6 SECONDS Partial Thromboplastin Ratio 1.5 Troponin I 4.740 ng/ml Test 05/29/18 09:31 05/29/18 09:35 05/29/18 10:25 05/29/18 11:16 Sodium Level 136 mmol/L Potassium Level 3.6 mmol/L Chloride Level 106 mmol/L Carbon Dioxide Level 23 mmol/L Anion Gap 7.0 mmol/L Blood Urea Nitrogen 18 mg/dl Creatinine 0.93 mg/dl Est Creatinine Clear Calc Drug Dose 54.9 ml/min Estimated GFR () 93.4 Estimated GFR (Non- 80.6 BUN/Creatinine Ratio 19.1 Random Glucose 136 mg/dl Calcium Level 7.8 mg/dl Phosphorus Level 2.3 mg/dl Magnesium Level 2.1 mg/dl Bedside Glucose (other) 142 mg/dl 137 mg/dl 144 mg/dl Test 05/29/18 12:16 Bedside Glucose (other) 149 mg/dl
[2018-05-29 15:17] LABS: HEMATOCRIT 26.9 % (42-52); HEMOGLOBIN 8.6 g/dL (14.0-18.0)
[2018-05-29 15:40] LABS: PTT PATIENT 51.6 SECONDS (21.0-31.0)
--- NOTE | 2018-05-29 15:56 | Palliative Care Progress Note ---
Palliative Care Progress Note Date of Service May 29, 2018. Subjective Pt evaluation today including: conversation w/ family (), physical exam, chart review, conversation w/ workers compensation consultant Patient is still intubated. Sedation is off. Levophed off and dobutamine remains infusing. Plan is to try and wean from vent. is at bedside encouraged by patient's improvement, but also still understanding of poor long-term prognosis. Review of Systems unable to obtain due to vent Objective Vital Signs Date Time Temp Pulse Resp B/P (MAP) Pulse Ox O2 Delivery O2 Flow Rate FiO2 05/29/18 07:39 30 05/29/18 07:36 30 05/29/18 06:31 37.2 108 22 92/46 (61) 99 05/29/18 06:30 37.2 108 22 96/47 (63) 99 Mechanical Ventilator 30 05/29/18 06:15 37.2 110 21 107/102 (104) 99 Mechanical Ventilator 05/29/18 06:01 37.3 112 23 108/56 (73) 98 Mechanical Ventilator 05/29/18 06:00 37.3 110 21 110/54 (72) 98 Mechanical Ventilator 30 05/29/18 05:45 37.3 114 21 6/-50 (-32) 97 Mechanical Ventilator 05/29/18 05:32 37.3 113 24 97/51 (66) 95 Mechanical Ventilator 05/29/18 05:30 109 5 104/50 (68) 87 Mechanical Ventilator 05/29/18 05:15 35.6 114 19 109/54 (72) 97 Mechanical Ventilator 05/29/18 05:08 30 05/29/18 05:01 35.7 115 21 109/52 (71) 98 Mechanical Ventilator 05/29/18 05:00 35.7 115 21 108/51 (70) 98 Mechanical Ventilator 05/29/18 04:31 35.5 113 21 107/49 (68) 98 Mechanical Ventilator 05/29/18 04:01 35.5 109 19 108/48 (68) 97 Mechanical Ventilator 05/29/18 04:00 35.5 109 20 107/48 (67) 97 Mechanical Ventilator 05/29/18 03:31 35.5 111 19 118/49 (72) 97 Mechanical Ventilator 05/29/18 03:01 35.5 112 19 118/51 (73) 97 Mechanical Ventilator 30 05/29/18 03:00 35.5 110 19 119/49 (72) 97 Mechanical Ventilator 30 05/29/18 02:31 35.4 114 21 118/50 (72) 98 Mechanical Ventilator 30 05/29/18 02:01 35.5 108 25 102/46 (64) 98 Mechanical Ventilator 30 05/29/18 02:00 35.5 110 28 102/47 (65) 98 Mechanical Ventilator 30 05/29/18 01:45 30 05/29/18 01:01 35.7 104 20 102/44 (63) 97 Mechanical Ventilator 30 05/29/18 01:00 35.7 106 19 103/51 (68) 97 Mechanical Ventilator 30 05/29/18 00:31 35.6 106 21 101/50 (67) 96 Mechanical Ventilator 30 05/29/18 00:01 35.5 107 25 100/38 (58) 98 Mechanical Ventilator 30 05/29/18 00:00 35.5 112 25 121/44 (69) 98 Mechanical Ventilator 30 05/28/18 23:31 35.5 117 30 112/52 (72) 98 Mechanical Ventilator 30 05/28/18 23:01 35.6 105 20 108/51 (70) 98 Mechanical Ventilator 30 05/28/18 23:00 30 05/28/18 23:00 35.6 102 19 107/51 (69) 98 Mechanical Ventilator 30 05/28/18 22:01 35.6 112 21 109/49 (69) 98 Mechanical Ventilator 30 05/28/18 22:00 35.6 109 21 109/48 (68) 97 Mechanical Ventilator 30 05/28/18 21:31 35.6 110 21 126/42 (70) 98 Mechanical Ventilator 30 05/28/18 21:01 35.7 115 21 119/44 (69) 96 Mechanical Ventilator 30 05/28/18 21:00 35.7 115 22 126/42 (70) 97 Mechanical Ventilator 30 05/28/18 20:01 35.7 120 22 108/48 (68) 96 Mechanical Ventilator 30 05/28/18 20:00 Mechanical Ventilator 30 05/28/18 20:00 30 05/28/18 20:00 35.7 121 22 121/48 (72) 96 Mechanical Ventilator 30 05/28/18 19:45 30 8/13/18 19:31 35.7 120 22 114/46 (68) 96 Mechanical Ventilator 30 05/28/18 19:01 35.7 121 22 125/47 (73) 96 Mechanical Ventilator 30 05/28/18 19:00 35.7 121 24 122/44 (70) 96 Mechanical Ventilator 30 05/28/18 18:01 35.7 121 22 108/47 (67) 96 Mechanical Ventilator 30 05/28/18 17:49 30 05/28/18 17:00 35.8 123 21 98/43 (61) 95 Mechanical Ventilator 30 05/28/18 16:54 96 Mechanical Ventilator 30 05/28/18 16:45 30 05/28/18 16:00 35.8 130 24 110/44 (66) 96 Mechanical Ventilator 30 05/28/18 15:31 35.7 128 27 112/45 (67) 95 Mechanical Ventilator 30 05/28/18 15:00 36.8 114 21 125/47 (73) 96 Mechanical Ventilator 30 05/28/18 14:45 30 05/28/18 14:00 36.9 105 16 107/44 (65) 96 Mechanical Ventilator 30 05/28/18 13:31 36.9 101 16 114/46 (68) 96 Mechanical Ventilator 30 05/28/18 13:01 30 05/28/18 13:00 36.9 102 20 122/48 (72) 96 Mechanical Ventilator 30 05/28/18 12:32 97 Mechanical Ventilator 30 05/28/18 12:00 37.0 106 19 128/49 (75) 96 Mechanical Ventilator 30 05/28/18 12:00 37.0 106 19 128/49 96 05/28/18 11:50 30 05/28/18 11:00 37.2 111 21 132/42 95 05/28/18 11:00 37.2 111 21 132/42 (72) 95 Mechanical Ventilator 30 05/28/18 10:25 37.4 109 22 133/48 96 05/28/18 10:10 37.4 79 19 113/51 94 05/28/18 10:00 37.4 91 22 98/36 (56) 94 Mechanical Ventilator 30 Physical Exam General Appearance: no apparent distress, + cachetic, + thin ENT: hearing grossly normal Neck: supple, no JVD Respiratory/Chest: no respiratory distress, no accessory muscle use, + decreased breath sounds Cardiovascular: no edema, + tachycardia, + normal peripheral pulses Abdomen: normal bowel sounds, soft Neurologic/Psychiatric: + pertinent finding (still on ventilator, obtunded) Skin: + pallor Laboratory Results Last 24 Hours Test 05/28/18 09:27 05/28/18 09:37 05/28/18 10:49 05/28/18 12:50 Random Cortisol 8.46 mcg/dl White Blood Count 20.86 K/uL Red Blood Count 3.61 M/uL Hemoglobin 9.3 g/dL Hematocrit 28.7 % Mean Corpuscular Volume 79.5 fL Mean Corpuscular Hemoglobin 25.8 pg Mean Corpuscular Hemoglobin Concent 32.4 g/dl RDW Standard Deviation 50.8 fL RDW Coefficient of Variation 17.6 % Platelet Count 473 K/uL Mean Platelet Volume 8.7 fL Nucleated RBC Absolute Count (auto) 0.03 K/uL Nucleated Red Blood Cells % 0.1 % Prothrombin Time 14.0 SECONDS Prothromb Time International Ratio 1.3 Activated Partial Thromboplast Time 31.3 SECONDS Partial Thromboplastin Ratio 1.2 Bedside Glucose (other) 166 mg/dl 236 mg/dl Test 05/28/18 13:49 05/28/18 13:50 05/28/18 15:12 05/28/18 16:02 Hemoglobin 9.7 g/dL Hematocrit 29.8 % Troponin I 10.400 ng/ml Bedside Glucose (other) 263 mg/dl 261 mg/dl 253 mg/dl Test 05/28/18 16:59 05/28/18 17:05 05/28/18 18:04 05/28/18 19:10 Activated Partial Thromboplast Time 35.7 SECONDS Partial Thromboplastin Ratio 1.4 Bedside Glucose (other) 266 mg/dl 251 mg/dl 249 mg/dl Test 05/28/18 20:12 05/28/18 21:10 05/28/18 22:14 05/28/18 22:24 Bedside Glucose (other) 237 mg/dl 223 mg/dl 205 mg/dl Hemoglobin 9.1 g/dL Hematocrit 27.5 % Troponin I 6.140 ng/ml Test 05/28/18 23:38 05/28/18 23:43 05/29/18 00:27 05/29/18 01:22 Activated Partial Thromboplast Time 43.9 SECONDS Partial Thromboplastin Ratio 1.7 Bedside Glucose (other) 169 mg/dl 154 mg/dl 142 mg/dl Test 05/29/18 03:22 05/29/18 04:24 05/29/18 05:20 05/29/18 06:08 Bedside Glucose (other) 119 mg/dl 114 mg/dl 108 mg/dl Blood Gas Sample Site Art Line Bedside Blood Gas pH (LAB) 7.39 Bedside Blood Gas pCO2 (LAB) 37 mmHg Bedside Blood Gas pO2 (LAB) 95 mmHg Bedside Blood Gas HCO3 (LAB) 23 meq/L Bedside Blood Gas Total CO2 24 mEq/l Bedside Blood Gas Base Excess (LAB) -2.0 meq/L Bedside Blood Gas O2 Saturation 97.0 % Lester Test NA Oxygen Delivery Device Ventilator Bedside Oxygen Rate (breaths/min) 12 Bedside FiO2 30 % Blood Gas PEEP 8 Test 05/29/18 06:14 05/29/18 07:18 05/29/18 08:00 05/29/18 08:09 Bedside Glucose (other) 104 mg/dl 107 mg/dl 105 mg/dl Hemoglobin 9.2 g/dL Hematocrit 28.3 % Activated Partial Thromboplast Time 39.6 SECONDS Partial Thromboplastin Ratio 1.5 Troponin I 4.740 ng/ml Assessment and Plan Problem list: Respiratory failure Hx small cell lung cancer Acute decompensated heart failure with EF 15-20% Goals of care Palliative care recs: -Patient remains DNR. -Planning to try and wean from vent. -Sedation is turned off. Levophed off, dobutamine infusing and attempting to wean. -Somewhat stabilized, but long-term goals remain uncertain. -We will continue to follow, support patient and family in decision making. -Continuing with acute care. Total time spent 25 minutes with >50% of time spent at bedside with patient family discussing condition/goals of care. Palliative Performance Scale: 20 % Continued [facility] stay due to: other (acute care continues) Discharge planning: uncertain
[2018-05-29] MEDS: HYDROCORTISONE IV 50 MG in SYRINGE 0 ML IV SCH ×2 (16:06→23:53)
[2018-05-29] MEDS: INSULIN REGULAR 250 UNITS in SODIUM CHLORIDE 0.9% 250ML 250 ML IV SCH (16:08)
[2018-05-29] MEDS ORDERED: NURSING VERBAL MED ORDER ONE (18:45)
[2018-05-29] MEDS ORDERED: FENTANYL CITRATE INJ 50 MCG/1 ML 2 ML VIAL IV PRN (18:45)
[2018-05-29] MEDS ORDERED: MIDAZOLAM HCL 1 MG/ML 2ML VIAL IV PRN (18:45)
[2018-05-29] MEDS ORDERED: [UNRECOGNIZED DRUG - REMARK] ONE (21:30)
[2018-05-29] MEDS: SIMVASTATIN 40 MG TAB PO SCH (21:32)
[2018-05-29 22:09] LABS: HEMATOCRIT 26.5 % (42-52); HEMOGLOBIN 8.5 g/dL (14.0-18.0)
--- NOTE | 2018-05-29 22:24 | Progress Note ---
Subjective Date of Service: May 29, 2018. Subjective Pt evaluation today including: conversation w/ patient, physical exam Patient is intubated and sedated. Patient provides no history. Problem List Medical Problems: (1) Acute bronchitis Status: Acute (2) GHANSHYAM (acute kidney injury) Status: Acute (3) Enlarged prostate Status: Chronic (4) Epistaxis Status: Acute (5) Exertional dyspnea Status: Acute (6) Hx of cancer of lung Status: Acute (7) Hyperkalemia Status: Acute (8) Hyponatremia Status: Acute (9) Leukocytosis Status: Acute (10) Leukocytosis Status: Acute (11) Lung cancer Status: Acute (12) Multifocal pneumonia Status: Acute (13) Necrotizing pneumonia Status: Acute (14) Pneumonia Status: Acute (15) Sepsis Status: Acute (16) Sepsis Status: Acute (17) SOB (shortness of breath) Status: Acute (18) Stabbing chest pain Status: Acute (19) Substernal chest pain Status: Acute Review of Systems Unable to obtain ROS. Objective Vital Signs Date Time Temp Pulse Resp B/P (MAP) Pulse Ox O2 Delivery O2 Flow Rate FiO2 05/29/18 19:51 30 05/29/18 18:00 36.8 87 23 104/47 (66) 98 CPAP 30 Mechanical Ventilator 05/29/18 17:49 30 05/29/18 16:15 36.9 97 24 100/49 (66) 95 CPAP 30 102/65 (77) Mechanical Ventilator 05/29/18 16:00 36.9 99 28 114/31 (58) 96 CPAP 30 Mechanical Ventilator 05/29/18 16:00 30 05/29/18 14:22 30 05/29/18 14:00 36.8 97 24 122/43 (69) 96 CPAP 30 Mechanical Ventilator 05/29/18 12:00 30 05/29/18 11:17 30 05/29/18 11:15 36.9 91 21 110/45 (66) 98 CPAP 30 Mechanical Ventilator 05/29/18 11:01 36.9 90 21 103/45 (64) 98 CPAP 30 Mechanical Ventilator 05/29/18 11:00 36.9 91 22 104/45 (64) 97 CPAP 30 Mechanical Ventilator 05/29/18 10:45 37.0 89 23 101/45 (63) 98 CPAP 30 Mechanical Ventilator 05/29/18 10:31 37.0 93 22 81/50 (60) 98 CPAP 30 Mechanical Ventilator 05/29/18 10:00 37.0 99 28 117/45 (69) 96 CPAP 30 Mechanical Ventilator 05/29/18 09:00 37.0 99 24 114/54 (74) 98 CPAP 30 Mechanical Ventilator 05/29/18 08:00 Mechanical Ventilator 30 05/29/18 08:00 37.1 103 25 130/59 (82) 98 CPAP 30 Mechanical Ventilator 05/29/18 08:00 Mechanical Ventilator 30 05/29/18 08:00 30 05/29/18 07:39 30 05/29/18 07:36 30 05/29/18 06:31 37.2 108 22 92/46 (61) 99 05/29/18 06:30 37.2 108 22 96/47 (63) 99 Mechanical Ventilator 30 05/29/18 06:15 37.2 110 21 107/102 (104) 99 Mechanical Ventilator 30 05/29/18 06:01 37.3 112 23 108/56 (73) 98 Mechanical Ventilator 30 05/29/18 06:00 37.3 110 21 110/54 (72) 98 Mechanical Ventilator 30 05/29/18 05:45 37.3 114 21 6/-50 (-32) 97 Mechanical Ventilator 30 05/29/18 05:32 37.3 113 24 97/51 (66) 95 Mechanical Ventilator 30 05/29/18 05:30 109 5 104/50 (68) 87 Mechanical Ventilator 30 05/29/18 05:15 35.6 114 19 109/54 (72) 97 Mechanical Ventilator 30 05/29/18 05:08 30 05/29/18 05:01 35.7 115 21 109/52 (71) 98 Mechanical Ventilator 30 05/29/18 05:00 35.7 115 21 108/51 (70) 98 Mechanical Ventilator 30 05/29/18 04:31 35.5 113 21 107/49 (68) 98 Mechanical Ventilator 30 05/29/18 04:01 35.5 109 19 108/48 (68) 97 Mechanical Ventilator 30 05/29/18 04:00 35.5 109 20 107/48 (67) 97 Mechanical Ventilator 30 05/29/18 03:31 35.5 111 19 118/49 (72) 97 Mechanical Ventilator 30 05/29/18 03:01 35.5 112 19 118/51 (73) 97 Mechanical Ventilator 30 05/29/18 03:00 35.5 110 19 119/49 (72) 97 Mechanical Ventilator 30 05/29/18 02:31 35.4 114 21 118/50 (72) 98 Mechanical Ventilator 30 05/29/18 02:01 35.5 108 25 102/46 (64) 98 Mechanical Ventilator 30 05/29/18 02:00 35.5 110 28 102/47 (65) 98 Mechanical Ventilator 30 05/29/18 01:45 30 05/29/18 01:01 35.7 104 20 102/44 (63) 97 Mechanical Ventilator 30 05/29/18 01:00 35.7 106 19 103/51 (68) 97 Mechanical Ventilator 30 05/29/18 00:31 35.6 106 21 101/50 (67) 96 Mechanical Ventilator 30 05/29/18 00:01 35.5 107 25 100/38 (58) 98 Mechanical Ventilator 30 05/29/18 00:00 35.5 112 25 121/44 (69) 98 Mechanical Ventilator 30 05/28/18 23:31 35.5 117 30 112/52 (72) 98 Mechanical Ventilator 30 05/28/18 23:01 35.6 105 20 108/51 (70) 98 Mechanical Ventilator 30 05/28/18 23:00 30 05/28/18 23:00 35.6 102 19 107/51 (69) 98 Mechanical Ventilator 30 Physical Exam Comments: General Appearance: no apparent distress, + thin,, intubated Neck: supple, no adenopathy, no JVD, trachea midline Respiratory/Chest: no respiratory distress, no accessory muscle use, + decreased breath sounds Cardiovascular: no edema, no gallop, no JVD, no murmur, + tachycardia Abdomen: normal bowel sounds, non tender, soft, no organomegaly Extremities: normal inspection, no pedal edema, no calf tenderness, normal capillary refill, pelvis stable Neurologic/Psychiatric: + pertinent finding (sedated) Skin: normal color, warm/dry, no rash Laboratory Results Last 24 Hours Test 05/28/18 23:38 05/28/18 23:43 05/29/18 00:27 05/29/18 01:22 Activated Partial Thromboplast Time 43.9 SECONDS Partial Thromboplastin Ratio 1.7 Bedside Glucose (other) 169 mg/dl 154 mg/dl 142 mg/dl Test 05/29/18 03:22 05/29/18 04:24 05/29/18 05:20 05/29/18 06:08 Bedside Glucose (other) 119 mg/dl 114 mg/dl 108 mg/dl Blood Gas Sample Site Art Line Bedside Blood Gas pH (LAB) 7.39 Bedside Blood Gas pCO2 (LAB) 37 mmHg Bedside Blood Gas pO2 (LAB) 95 mmHg Bedside Blood Gas HCO3 (LAB) 23 meq/L Bedside Blood Gas Total CO2 24 mEq/l Bedside Blood Gas Base Excess (LAB) -2.0 meq/L Bedside Blood Gas O2 Saturation 97.0 % Lester Test NA Oxygen Delivery Device Ventilator Bedside Oxygen Rate (breaths/min) 12 Bedside FiO2 30 % Blood Gas PEEP 8 Test 05/29/18 06:14 05/29/18 07:18 05/29/18 08:00 05/29/18 08:09 Bedside Glucose (other) 104 mg/dl 107 mg/dl 105 mg/dl Hemoglobin 9.2 g/dL Hematocrit 28.3 % Activated Partial Thromboplast Time 39.6 SECONDS Partial Thromboplastin Ratio 1.5 Troponin I 4.740 ng/ml Test 05/29/18 09:31 05/29/18 09:35 05/29/18 10:25 05/29/18 11:16 Sodium Level 136 mmol/L Potassium Level 3.6 mmol/L Chloride Level 106 mmol/L Carbon Dioxide Level 23 mmol/L Anion Gap 7.0 mmol/L Blood Urea Nitrogen 18 mg/dl Creatinine 0.93 mg/dl Est Creatinine Clear Calc Drug Dose 54.9 ml/min Estimated GFR () 93.4 Estimated GFR (Non- 80.6 BUN/Creatinine Ratio 19.1 Random Glucose 136 mg/dl Calcium Level 7.8 mg/dl Phosphorus Level 2.3 mg/dl Magnesium Level 2.1 mg/dl Bedside Glucose (other) 142 mg/dl 137 mg/dl 144 mg/dl Test 05/29/18 12:16 05/29/18 13:28 05/29/18 15:01 05/29/18 15:06 Bedside Glucose (other) 149 mg/dl 178 mg/dl 202 mg/dl Hemoglobin 8.6 g/dL Hematocrit 26.9 % Activated Partial Thromboplast Time 51.6 SECONDS Partial Thromboplastin Ratio 2.0 Lactic Acid Level 0.7 mmol/L Troponin I 3.200 ng/ml Test 05/29/18 16:50 05/29/18 17:44 05/29/18 18:46 05/29/18 19:47 Bedside Glucose (other) 202 mg/dl 234 mg/dl 234 mg/dl 222 mg/dl Test 05/29/18 20:48 05/29/18 21:45 05/29/18 21:58 Bedside Glucose (other) 228 mg/dl 232 mg/dl Hemoglobin 8.5 g/dL Hematocrit 26.5 % Assessment and Plan 72 y/o M who was admitted on 05/26 with PNA and COPD exacerbation - Acute hypoxic respiratory failure, respiratory distress, due to pulmonary edema, acute heart failure intubated on 05/27 emergently Continues to be on ventilator today Failed trial for extubation CXR with improved aeration of right lower lobe low FiO2 requirements management per ICU - Acute systolic heart failure, acute decompensation EF low at 15-20% h/o ischemic cardiomyopathy, h/o low EF in the 's but most recent EF had improved earlier this year placed on Dobutamine, making adequate urine, lungs clearing cardiology following poor overall prognosis h/o seven stents, none recently - Left upper lobe cavitary lesion, questionable right lower lobe infiltrate no evidence of mucous on bronchoscopy yesterday antibiotics stopped, placed on Voriconazole due to h/o Aspergillus bronchial lavage sent for culture, negative - Elevated troponin, NSTEMI type II demand ischemia due to tachycardia, respiratory distress, attempted electrocardioversion twice yesterday troponin peaked at 14, down to [address] Chaudhry, certainly left heart cath could be considered in the future, but patient would not be candidate for stenting, cannot tolerate DAPT due to nose bleeds - Worsening anemia, assumed blood loss, but still unclear etiology Protonix IV BID was heme positive stool in the ED transfused 4 units total, Hb up to 9.7 - COPD: no evidence of exacerbation - DM with hyperglycemia insulin infusion, pharmacy management - H/o lung cancer had recent PET scan as outpatient, no evidence of recurrent disease per Dr. Poole, had isolated small cell lung CA, treated with chemotherapy and radiation no further work up at this time as he would not be a candidate for any type of treatment CAD: hx of LA and stents x7 Pt could not tolerate plavix (nosebleeds) and is on aspirin 81mg Holding for now given above Hyperlipidemia: continue home meds BPH: continue home meds Spent 40 minutes in management of patient, reviewing chart, discussing with consultants. Family at bedside, updated. Continued [facility] stay due to: other (acute care continues) Discharge planning: uncertain
[2018-05-30] VITALS (39 sets, daily range): BP systolic 88–152; BP diastolic 41–87; PULSE 66–98; TEMP 35.9–36.8; O2SAT 13–100
[2018-05-30] MEDS: LEValbuterol HFA 15GM INHALER INH SCH ×2 (02:21→07:01)
[2018-05-30 04:55] LABS: PTT PATIENT 31.7 SECONDS (21.0-31.0)
[2018-05-30] MEDS: HEPARIN SOD 5000 UNIT/0.5 ML CARP SQ SCH ×2 (06:40→18:13)
--- NOTE | 2018-05-30 07:24 | Critical Care Progress Note ---
Critical Care Progress Note Date of Service May 30, 2018. ICU Day ICU Day Number: [address] Nick Objective General: RASS -1. Skin: Warm, dry, Head: Atraumatic Ears, nose, mouth and throat endotracheal tube present Cardiovascular: Normal peripheral perfusion Respiratory: no respiratory distress, mildly bloody secretions Gastrointestinal: Non distended Musculoskeletal: No deformity Assessment & Plan Reason Critically Ill: 72-year-old male with possibly recurrent lung cancer who has hypoxic respiratory failure pneumonia. PLAN: Neuro: Following complex commands -Discontinued intermittent sedation after extubation Resp: Hypoxic respiratory failure: Improving -Extubated this morning -Aspergillus testing and fungal elements remain negative or unreported to date CV: Hypotension: Improved Possible cardiomyopathy -Continue aspirin, did not tolerate Plavix secondary to recurrent epistaxis -Finish 24 hours of heparin Reduced EF heart failure -Trial of dobutamine: Weaned off Prolonged QTC: Improving -Discontinue Zofran -Recheck of EKG prior to dosing administration reveals much improved QTC compared to previous Fluids/Renal: Likely euvolemic -No additional fluids at this time getting large amount of fluids from medications ID: Discontinue antibacterial 05/28 -Voriconazole for possible aspergillus -Send 1 3 fungitel, aspergillus panel -Reviewed outpatient records, last pulmonary note was placed on 12 day course of itraconazole GI/Nutrition: N.p.o. -Anticipate speech therapy evaluation tomorrow Heme: Anemia -Heparin DVT prophylaxis Endocrine: Hyperglycemia -Continue IV insulin secondary to vasopressor use -Can start some basal coverage Vascular access: Central line, arterial line: Discontinue central and arterial line today Code Status: DO NOT RESUSCITATE Patient was discussed on multidisciplinary rounds I have personally spent 60 minutes of critical care time in the direct management of this patient. This is a life/limb threatening event. This includes time spent evaluating patient, direct bedside care, chart review, placing orders, interpretation of diagnostic studies, discussion with consultants, patient, and/or family members regarding treatment decisions, as well as other required patient management activities. This time is exclusive of all separately billable procedures, and teaching time and separate from and in addition to any other critical care service time. Consults & Procedures Consultants: Cardiology: Isidoro Infectious disease: Facundo Data Medications: Current Inpatient Medications Medications (Trade) Dose Ordered Sig/Vianey Route Start Time Stop Time Status Last Admin Dose Admin Acetaminophen (Tylenol Tab) 650 mg Q4H PRN PO 05/26/18 15:00 9/10/18 14:59 05/27/18 05:18 650 MG Magnesium Hydroxide (Milk Of Magnesia Susp) 30 ml Q6H PRN PO 05/26/18 15:00 06/25/18 14:59 Glucose (Glucose 40% Gel) 15-30 GRAMS 15 GRAMS... UD PRN PO 05/26/18 15:00 06/25/18 14:59 Glucose (Glucose Chew Tab) 4-8 Tablets 4 Tabl... UD PRN PO 05/26/18 15:00 06/25/18 14:59 Dextrose (Dextrose 50% 50ML Syringe) 25-50ML 25ML FOR ... UD PRN IV 05/26/18 15:00 06/25/18 14:59 05/27/18 21:44 25 ML Glucagon (Glucagon Inj) 1 mg UD PRN SQ 05/26/18 15:00 06/25/18 14:59 Carbohydrates (Carbohydrates For Hypoglycemia) 15-30 GRAMS 15 grams if BSG 54-69... UD PRN PO 05/26/18 15:00 06/25/18 14:59 Finasteride (Proscar Tab) 5 mg QAM PO 05/27/18 08:00 06/26/18 08:59 Future Hold 05/28/18 10:21 5 MG Simvastatin (Zocor Tab) 40 mg QPM PO 05/26/18 21:00 06/25/18 20:59 05/29/18 21:32 40 MG Heparin Sodium (Porcine) (Heparin 100 Unit/ml 5ml Flush) 5 ml PRN PRN IV 05/27/18 01:30 06/26/18 01:29 Insulin Aspart (novoLOG ASPART) [facility]ING [facility] 05/27/18 17:15 06/26/18 17:14 Aspirin (Aspirin Chew) 81 mg DAILY PO 05/28/18 09:00 06/27/18 08:59 05/29/18 08:34 81 MG Levalbuterol (Xopenex Hfa Inhaler) 4 puffs Q6R INH 05/27/18 15:00 06/26/18 14:59 05/30/18 07:01 4 PUFFS Pantoprazole Sodium 40 mg/ Syringe 10 ml @ 5 mls/min DAILY@ IV 05/27/18 21:00 06/26/18 20:59 05/29/18 21:32 5 MLS/MIN Miscellaneous Information (Consult Glycemic Management Pharmacy) 1 ea UD PRN N/A 05/27/18 15:14 06/26/18 15:13 Insulin Human Regular 250 units/ Sodium Chloride 252.5 ml @ 0 mls/hr Q24H IV 05/27/18 16:01 06/26/18 16:00 05/29/18 16:08 0.3 MLS/HR Heparin Sodium (Porcine) (Heparin 10 Unit/ ml 5 ml Flush) 5 ml PRN PRN FLUSH 05/28/18 00:15 06/27/18 00:14 Dobutamine HCl 250 ml @ 0 mls/hr Q0M PRN IV 05/28/18 09:00 06/27/18 08:59 05/29/18 12:32 3.5 MLS/HR Ferrous Sulfate (Feosol Elix) 325 mg BIDM PO 05/28/18 16:30 06/27/18 16:29 05/29/18 16:05 325 MG Multivitamins Therapeutic (Cerovite Liquid) 15 ml QAM PO 05/28/18 12:00 06/27/18 11:59 05/29/18 08:35 15 ML Voriconazole 230 mg/Sodium Chloride 100 ml @ 75 mls/hr Q12H IV 05/29/18 10:00 06/28/18 09:59 Future hold 05/29/18 21:41 75 MLS/HR Hydrocortisone Sodium Succinate 50 mg/Syringe 1 ml @ 4 mls/min Q8H IV 05/29/18 16:00 05/31/18 08:01 05/29/18 23:53 4 MLS/MIN Enteral Nutritional Formula (Peptamen 1.5) 1,000 ml UD PRN OG 05/29/18 09:00 06/28/18 08:59 05/29/18 09:57 1,000 ML Heparin Sodium (Porcine) (Heparin Sq 5000 Unit/0.5ml) 5,000 unit Q12H SQ 05/30/18 06:00 06/29/18 05:59 05/30/18 06:40 5,000 UNIT Midazolam HCl (Versed Inj) 2 mg Q2H PRN IV 05/29/18 18:45 06/28/18 18:44 Fentanyl Citrate (Fentanyl Inj) 100 mcg Q2H PRN IV 05/29/18 18:45 06/12/18 18:44 05/29/18 20:16 100 MCG Vital Signs: Date Time Temp Pulse Resp B/P (MAP) Pulse Ox O2 Delivery O2 Flow Rate FiO2 05/30/18 07:06 30 05/30/18 07:02 30 05/30/18 06:31 36.1 88 20 120/53 (75) 95 Mechanical Ventilator 30 05/30/18 06:01 36.1 71 21 124/61 (82) 100 Mechanical Ventilator 30 05/30/18 06:00 36.1 72 18 125/61 (82) 99 Mechanical Ventilator 30 05/30/18 05:31 36.2 66 20 107/56 (73) 98 Mechanical Ventilator 30 05/30/18 05:01 36.2 68 19 107/53 (71) 99 Mechanical Ventilator 30 05/30/18 05:00 36.2 68 19 111/54 (73) 99 Mechanical Ventilator 30 05/30/18 04:52 30 05/30/18 04:31 36.2 70 15 116/55 (75) 100 Mechanical Ventilator 30 05/30/18 04:01 36.2 74 19 127/62 (83) 100 Mechanical Ventilator 30 05/30/18 04:00 36.2 76 21 126/62 (83) 99 Mechanical Ventilator 30 05/30/18 03:31 36.3 70 20 105/55 (72) 100 Mechanical Ventilator 30 05/30/18 03:01 36.3 67 19 102/55 (71) 99 Mechanical Ventilator 30 05/30/18 03:00 36.3 69 19 105/56 (72) 99 Mechanical Ventilator 30 05/30/18 02:22 30 05/30/18 02:01 36.3 68 19 104/53 (70) 99 Mechanical Ventilator 30 05/30/18 02:00 36.3 69 18 105/52 (69) 99 Mechanical Ventilator 30 05/30/18 01:31 36.3 71 17 99/57 (71) 100 Mechanical Ventilator 30 05/30/18 01:24 36.3 70 18 88/63 (71) 100 Mechanical Ventilator 30 05/30/18 01:01 36.2 71 18 101/58 (72) 100 Mechanical Ventilator 30 05/30/18 01:00 36.2 72 19 103/59 (74) 100 Mechanical Ventilator 30 05/30/18 00:01 36.1 83 19 152/68 (96) 100 Mechanical Ventilator 30 05/30/18 00:00 36.1 86 17 150/67 (94) 100 Mechanical Ventilator 30 05/29/18 23:31 36.1 85 19 110/98 (102) 99 Mechanical Ventilator 30 05/29/18 23:21 30 05/29/18 23:01 36.1 85 18 95/61 (72) 98 Mechanical Ventilator 30 05/29/18 23:00 36.1 86 18 94/61 (72) 98 Mechanical Ventilator 30 05/29/18 22:31 36.3 86 18 127/52 (77) 98 Mechanical Ventilator 30 05/29/18 22:01 36.4 88 19 298/289 (292) 98 Mechanical Ventilator 30 05/29/18 22:00 36.4 83 19 300/300 (300) 98 Mechanical Ventilator 30 05/29/18 21:31 36.5 89 19 87/51 (63) 98 Mechanical Ventilator 30 05/29/18 21:01 36.5 80 21 90/47 (61) 98 Mechanical Ventilator 30 05/29/18 21:00 36.5 81 20 90/46 (61) 98 Mechanical Ventilator 30 05/29/18 20:31 36.6 76 21 104/39 (60) 99 Mechanical Ventilator 30 05/29/18 20:01 36.6 78 20 89/46 (60) 97 Mechanical Ventilator 30 05/29/18 20:00 36.6 78 25 88/46 (60) 97 Mechanical Ventilator 30 05/29/18 20:00 30 05/29/18 20:00 Mechanical Ventilator 30 05/29/18 19:51 30 05/29/18 19:31 36.7 84 22 107/55 (72) 99 Mechanical Ventilator 30 05/29/18 19:01 36.7 82 21 100/49 (66) 99 Mechanical Ventilator 30 05/29/18 19:00 36.7 82 21 103/49 (67) 99 Mechanical Ventilator 30 05/29/18 18:00 36.8 87 23 104/47 (66) 98 CPAP 30 Mechanical Ventilator 05/29/18 17:49 30 05/29/18 16:15 36.9 97 24 100/49 (66) 95 CPAP 30 102/65 (77) Mechanical Ventilator 05/29/18 16:00 36.9 99 28 114/31 (58) 96 CPAP 30 Mechanical Ventilator 05/29/18 16:00 30 05/29/18 14:22 30 05/29/18 14:00 36.8 97 24 122/43 (69) 96 CPAP 30 Mechanical Ventilator 05/29/18 12:00 30 05/29/18 11:17 30 05/29/18 11:15 36.9 91 21 110/45 (66) 98 CPAP 30 Mechanical Ventilator 05/29/18 11:01 36.9 90 21 103/45 (64) 98 CPAP 30 Mechanical Ventilator 05/29/18 11:00 36.9 91 22 104/45 (64) 97 CPAP 30 Mechanical Ventilator 05/29/18 10:45 37.0 89 23 101/45 (63) 98 CPAP 30 Mechanical Ventilator 05/29/18 10:31 37.0 93 22 81/50 (60) 98 CPAP 30 Mechanical Ventilator 05/29/18 10:00 37.0 99 28 117/45 (69) 96 CPAP 30 Mechanical Ventilator 05/29/18 09:00 37.0 99 24 114/54 (74) 98 CPAP 30 Mechanical Ventilator 05/29/18 08:00 Mechanical Ventilator 30 05/29/18 08:00 37.1 103 25 130/59 (82) 98 CPAP 30 Mechanical Ventilator 05/29/18 08:00 Mechanical Ventilator 30 05/29/18 08:00 30 05/29/18 07:39 30 05/29/18 07:36 30 Laboratory Results: Last 24 Hours Test 05/29/18 08:00 05/29/18 08:09 05/29/18 09:31 05/29/18 09:35 Hemoglobin 9.2 g/dL Hematocrit 28.3 % Activated Partial Thromboplast Time 39.6 SECONDS Partial Thromboplastin Ratio 1.5 Troponin I 4.740 ng/ml Bedside Glucose (other) 105 mg/dl 142 mg/dl Sodium Level 136 mmol/L Potassium Level 3.6 mmol/L Chloride Level 106 mmol/L Carbon Dioxide Level 23 mmol/L Anion Gap 7.0 mmol/L Blood Urea Nitrogen 18 mg/dl Creatinine 0.93 mg/dl Est Creatinine Clear Calc Drug Dose 54.9 ml/min Estimated GFR () 93.4 Estimated GFR (Non- 80.6 BUN/Creatinine Ratio 19.1 Random Glucose 136 mg/dl Calcium Level 7.8 mg/dl Phosphorus Level 2.3 mg/dl Magnesium Level 2.1 mg/dl Test 05/29/18 10:25 05/29/18 11:16 05/29/18 12:16 05/29/18 13:28 Bedside Glucose (other) 137 mg/dl 144 mg/dl 149 mg/dl 178 mg/dl Test 05/29/18 15:01 05/29/18 15:06 05/29/18 16:50 05/29/18 17:44 Hemoglobin 8.6 g/dL Hematocrit 26.9 % Activated Partial Thromboplast Time 51.6 SECONDS Partial Thromboplastin Ratio 2.0 Lactic Acid Level 0.7 mmol/L Troponin I 3.200 ng/ml Bedside Glucose (other) 202 mg/dl 202 mg/dl 234 mg/dl Test 05/29/18 18:46 05/29/18 19:47 05/29/18 20:48 05/29/18 21:45 Bedside Glucose (other) 234 mg/dl 222 mg/dl 228 mg/dl 232 mg/dl Test 05/29/18 21:58 05/29/18 22:42 05/29/18 23:55 05/30/18 00:50 Hemoglobin 8.5 g/dL Hematocrit 26.5 % Troponin I 2.270 ng/ml Bedside Glucose (other) 221 mg/dl 211 mg/dl 220 mg/dl Test 05/30/18 01:46 05/30/18 02:43 05/30/18 03:54 05/30/18 04:22 Bedside Glucose (other) 211 mg/dl 207 mg/dl 221 mg/dl Activated Partial Thromboplast Time 31.7 SECONDS Partial Thromboplastin Ratio 1.2 Test 05/30/18 04:34 05/30/18 05:54 05/30/18 06:52 Bedside Glucose (other) 225 mg/dl 212 mg/dl 191 mg/dl
[2018-05-30] MEDS: MULTIVITAMINS W/MINERALS 15ML UDP PO SCH (07:34)
[2018-05-30] MEDS: ASPIRIN 81 MG CHEW PO SCH (07:34)
[2018-05-30] MEDS: FERROUS SULFATE 325 MG/7.4 ML UDP PO SCH ×2 (07:34→15:26)
--- NOTE | 2018-05-30 07:42 | DIAGNOSTIC IMAGING REPORT ---
CHEST ONE VIEW PORTABLE CLINICAL HISTORY: 72 years-old Male presenting with intubation. TECHNIQUE: Portable upright AP view of the chest was obtained. COMPARISON: 05/29/2018. FINDINGS: Endotracheal tube terminates in the mid thoracic trachea approximately 3 cm from the manav. Right internal jugular central venous catheter terminates in the mid SVC. Left subclavian Mediport is accessed and terminates in the superior cavoatrial junction. Nasogastric tube descends below the diaphragm, terminus not visualized. Cardiomediastinal silhouette unchanged and partially obscured along the left superior margin. Persistent dense opacity in the left apex and left perihilar region and less extensively in the right mid to basilar region. Obscuration of the left hemidiaphragm may indicate small pleural effusion. Relative radiolucency of the right upper lung. No large pneumothorax. IMPRESSION: 1. Stable lines and tubes. 2. Multifocal infiltrates most concerning for multifocal pneumonia. 3. Loculated left apical pleural effusion versus dense consolidation. 4. Background emphysema and chronic lung disease. Electronically signed by: Jeffrey Frances M.D. 05/30/2018 7:41 AM Dictated Date/Time: 05/30/2018 7:37 AM
[2018-05-30] MEDS: INSULIN ASPART 100 UNITS/ML 3 ML PEN SC SCH ×5 (08:00→23:59)
[2018-05-30] MEDS: HYDROCORTISONE IV 50 MG in SYRINGE 0 ML IV SCH (08:49)
[2018-05-30] MEDS: PANTOprazole INJ 40 MG in SYRINGE 0 ML IV SCH ×2 (08:49→20:21)
[2018-05-30 08:51] LABS: BASO % 0.1 %; BASO ABS # 0.01 K/uL (0-0.2); HEMATOCRIT 28.1 % (42-52); IG# 0.16 K/uL (0.00-0.02); LYMPH % 2.4 %; LYMPH ABS # 0.33 K/uL (1.2-3.4); MEAN CELL VOLUME 81.9 fL (80-100); MEAN CORPUSCULAR HEMOGLOBIN 26.2 pg (25-34); MEAN PLATELET VOLUME 8.9 fL (7.4-10.4); MONO % 3.2 %; MONO ABS # 0.45 K/uL (0.11-0.59); NEUT % 93.2 %; NEUT ABS # 12.98 K/uL (1.4-6.5); PLATELET COUNT 319 K/uL (130-400); RED CELL DISTRIBUTION WIDTH CV 18.8 % (11.5-14.5); RED CELL DISTRIBUTION WIDTH SD 56.6 fL (36.4-46.3); WHITE BLOOD COUNT 13.93 K/uL (4.8-10.8)
[2018-05-30] MEDS ORDERED: INSULIN GLARGINE SOLOSTAR 100 UNITS/ML 3 ML PEN SC ONE ×2 (09:00→12:30)
[2018-05-30 09:07] LABS: CALCIUM 8.3 mg/dl (8.5-10.1); CREATININE 0.81 mg/dl (0.60-1.40); PHOSPHORUS 2.8 mg/dl (2.5-4.9); POTASSIUM 3.8 mmol/L (3.5-5.1)
[2018-05-30] MEDS: VORICONAZOLE IV SCH ×2 (10:19→22:05)
[2018-05-30] MEDS: SODIUM CHLORIDE 0.9% IV SCH ×2 (10:19→22:05)
--- NOTE | 2018-05-30 10:22 | DIAGNOSTIC IMAGING REPORT ---
EFFUSION-CHEST/MEDIASTINUM CLINICAL HISTORY: R/O loculation, see Dr. Nick prior to completing study. Pleural effusion. COMPARISON STUDY: PET CT 05/16/2018. FINDINGS: Small left posterior pleural effusion measuring 125 cc. Trace right pleural effusion measuring 22 cc. There is a partially loculated component with of the left pleural effusion seen anteriorly. IMPRESSION: 1. Small left pleural effusion which is partially loculated anteriorly. 2. Trace right pleural effusion. Electronically signed by: Guanaco Thompson M.D. 05/30/2018 10:21 AM Dictated Date/Time: 05/30/2018 10:19 AM
[2018-05-30] MEDS ORDERED: LEVALBUTEROL 1.25MG/3ML NEB INH PRN (10:45)
--- NOTE | 2018-05-30 11:10 | Cardiology Follow-Up ---
Subjective Date of Service: May 30, 2018. Pt evaluation today including: conversation w/ family, physical exam, chart review, lab review, review of studies, review of inpatient medication list History of Present Illness The patient had been extubated earlier. He was still weak and did not participate in conversation. He was responsive to verbal stimuli however. Social History Smoking Status: Former Smoker History of Alcohol Use: No Review of Systems Respiratory: + cough, + sputum, + shortness of breath, + dyspnea on exertion, + dyspnea at rest, + hemoptysis This cannot be obtained as the patient is currently intubated and sedated Objective Vital Signs Past 12 Hours Date Time Temp Pulse Resp B/P (MAP) Pulse Ox O2 Delivery O2 Flow Rate FiO2 05/30/18 10:00 82 29 135/51 (79) 93 Humidified Oxygen 13.0 40 Mask 05/30/18 09:00 82 22 121/45 (70) 94 Humidified Oxygen 13.0 40 Mask 05/30/18 08:00 36.1 98 20 137/87 (104) 98 Humidified Oxygen 13.0 40 118/76 (90) Mask 05/30/18 08:00 High Flow Oxygen 40 05/30/18 08:00 13 Humidified Oxygen 40 Mask 05/30/18 07:06 30 05/30/18 07:02 30 05/30/18 06:31 36.1 88 20 120/53 (75) 95 Mechanical Ventilator 30 05/30/18 06:01 36.1 71 21 124/61 (82) 100 Mechanical Ventilator 30 05/30/18 06:00 36.1 72 18 125/61 (82) 99 Mechanical Ventilator 30 05/30/18 05:31 36.2 66 20 107/56 (73) 98 Mechanical Ventilator 30 05/30/18 05:01 36.2 68 19 107/53 (71) 99 Mechanical Ventilator 30 05/30/18 05:00 36.2 68 19 111/54 (73) 99 Mechanical Ventilator 30 05/30/18 04:52 30 05/30/18 04:31 36.2 70 15 116/55 (75) 100 Mechanical Ventilator 30 05/30/18 04:01 36.2 74 19 127/62 (83) 100 Mechanical Ventilator 30 05/30/18 04:00 36.2 76 21 126/62 (83) 99 Mechanical Ventilator 30 05/30/18 03:31 36.3 70 20 105/55 (72) 100 Mechanical Ventilator 30 05/30/18 03:01 36.3 67 19 102/55 (71) 99 Mechanical Ventilator 30 05/30/18 03:00 36.3 69 19 105/56 (72) 99 Mechanical Ventilator 30 05/30/18 02:22 30 05/30/18 02:01 36.3 68 19 104/53 (70) 99 Mechanical Ventilator 05/30/18 02:00 36.3 69 18 105/52 (69) 99 Mechanical Ventilator 30 05/30/18 01:31 36.3 71 17 99/57 (71) 100 Mechanical Ventilator 30 05/30/18 01:24 36.3 70 18 88/63 (71) 100 Mechanical Ventilator 30 05/30/18 01:01 36.2 71 18 101/58 (72) 100 Mechanical Ventilator 30 05/30/18 01:00 36.2 72 19 103/59 (74) 100 Mechanical Ventilator 30 05/30/18 00:01 36.1 83 19 152/68 (96) 100 Mechanical Ventilator 30 05/30/18 00:00 36.1 86 17 150/67 (94) 100 Mechanical Ventilator 30 05/29/18 23:31 36.1 85 19 110/98 (102) 99 Mechanical Ventilator 30 05/29/18 23:21 30 Last Recorded Weight-Kilograms: 61.300 Physical Exam He was extubated an on a non-rebreather. He open his eyes to verbal stimuli but did not answer questions. He appeared tired. HEENT: Pupils are equal Neck: Patient's neck is supple. Lungs: Coarse upper airway congestion and some bronchial breath sounds. Cardiac: Heart demonstrates a regular rate and rhythm. Normal S1 and S2. No murmurs on examination. Pulses: The patient has palpable radial pulses bilaterally that are equal in intensity. Radial art line in the right wrist Extremities: There was no evidence of hypoperfusion. There is no cyanosis or clubbing. There is no edema. Skin: I did not appreciate any rashes on examination today. Data Laboratory Results: Last 24 Hours Test 05/29/18 11:16 05/29/18 12:16 05/29/18 13:28 05/29/18 15:01 Bedside Glucose (other) 144 mg/dl 149 mg/dl 178 mg/dl Hemoglobin 8.6 g/dL Hematocrit 26.9 % Activated Partial Thromboplast Time 51.6 SECONDS Partial Thromboplastin Ratio 2.0 Lactic Acid Level 0.7 mmol/L Troponin I 3.200 ng/ml Test 05/29/18 15:06 05/29/18 16:50 05/29/18 17:44 05/29/18 18:46 Bedside Glucose (other) 202 mg/dl 202 mg/dl 234 mg/dl 234 mg/dl Test 05/29/18 19:47 05/29/18 20:48 05/29/18 21:45 05/29/18 21:58 Bedside Glucose (other) 222 mg/dl 228 mg/dl 232 mg/dl Hemoglobin 8.5 g/dL Hematocrit 26.5 % Troponin I 2.270 ng/ml Test 05/29/18 22:42 05/29/18 23:55 05/30/18 00:50 05/30/18 01:46 Bedside Glucose (other) 221 mg/dl 211 mg/dl 220 mg/dl 211 mg/dl Test 05/30/18 02:43 05/30/18 03:54 05/30/18 04:22 05/30/18 04:34 Bedside Glucose (other) 207 mg/dl 221 mg/dl 225 mg/dl Activated Partial Thromboplast Time 31.7 SECONDS Partial Thromboplastin Ratio 1.2 Test 05/30/18 05:54 05/30/18 06:52 05/30/18 08:31 Bedside Glucose (other) 212 mg/dl 191 mg/dl White Blood Count 13.93 K/uL Red Blood Count 3.43 M/uL Hemoglobin 9.0 g/dL Hematocrit 28.1 % Mean Corpuscular Volume 81.9 fL Mean Corpuscular Hemoglobin 26.2 pg Mean Corpuscular Hemoglobin Concent 32.0 g/dl Platelet Count 319 K/uL Mean Platelet Volume 8.9 fL Neutrophils (%) (Auto) 93.2 % Lymphocytes (%) (Auto) 2.4 % Monocytes (%) (Auto) 3.2 % Eosinophils (%) (Auto) 0.0 % Basophils (%) (Auto) 0.1 % Neutrophils # (Auto) 12.98 K/uL Lymphocytes # (Auto) 0.33 K/uL Monocytes # (Auto) 0.45 K/uL Eosinophils # (Auto) 0.00 K/uL Basophils # (Auto) 0.01 K/uL RDW Standard Deviation 56.6 fL RDW Coefficient of Variation 18.8 % Immature Granulocyte % (Auto) 1.1 % Immature Granulocyte # (Auto) 0.16 K/uL Sodium Level 141 mmol/L Potassium Level 3.8 mmol/L Chloride Level 111 mmol/L Carbon Dioxide Level 23 mmol/L Anion Gap 6.0 mmol/L Blood Urea Nitrogen 21 mg/dl Creatinine 0.81 mg/dl Est Creatinine Clear Calc Drug Dose 69.4 ml/min Estimated GFR () 101.5 Estimated GFR (Non- 87.6 BUN/Creatinine Ratio 25.7 Random Glucose 209 mg/dl Calcium Level 8.3 mg/dl Phosphorus Level 2.8 mg/dl Magnesium Level 2.3 mg/dl Telemetry reviewed: Sinus rhythm Assessment and Plan 1. Acute decompensated left ventricular systolic failure: He was able to be extubated. He still on supplemental oxygen. The recorded net output has been very minimal over the course of his hospitalization. However, as pulmonary edema seems to have improved. Did affect a good urine output on dobutamine. I would be very cautious regarding fluid administration at this point. I think he would benefit from at least a daily dose of diuretic if not twice daily based on the amount of volume he is requiring for intravenous fluids and medications. 2. Ischemic cardiomyopathy: Hemodynamically he is doing much better. I think would be reasonable to consider restarting his beta-veronica. Renal function is also stable and after a day or 2 we could consider institution of Charles inhibition. 3. Coronary artery disease: When to perform a coronary evaluation is the topic of concern. Primarily because our ability to intervene is limited by his history of bleeding difficulty and bleeding on Plavix. I think we will monitor his progress currently and decide if any evaluation is necessary prior to discharge. 4. Prolonged QTC: I do not think this is changed much over the course of his hospitalization. He will continue on the fork on his all currently. naomy
[2018-05-30] MEDS: LEVALBUTEROL 1.25MG/3ML NEB INH SCH ×4 (11:53→23:47)
[2018-05-30] MEDS: METHYLPREDNISOLONE 30 MG in SYRINGE 0 ML IV SCH ×2 (12:42→23:58)
--- NOTE | 2018-05-30 12:49 | Pharmacy Progress Note ---
Pharmacy Glycemic Short Note 2 Date of Service May 30, 2018. OUTPATIENT ANTIDIABETIC REGIMEN: * Metformin 1gm PO BID * Glipizide ER 2.5mg PO BID * A1c = 6.7% Test 05/30/18 08:25 05/30/18 08:31 05/30/18 09:10 05/30/18 10:15 Bedside Glucose 191 mg/dl (70-99) 201 mg/dl (70-99) 208 mg/dl (70-99) Random Glucose 209 mg/dl (70-99) Test 05/30/18 11:20 Bedside Glucose 180 mg/dl (70-99) ASSESSMENT: 05/30/18 * Glycemic control did deteriorate yesterday w/ the addition of IV steroids and cont tube feeds * Goals not met with drip over last 24 hrs as drip rates were quite low prior to the above changes. This resulted in very small incremental drip increases over a prolonged period of time despite rising BSGs. An off protocol rate increase would have worked better in retrospect. * New changes today: extubated, tube feeds stopped, remains NPO, dobutamine off , heparin gtt mixed in dextrose also stopped: all factors that should decrease insulin needs * Hydrocortisone IV d/c'd and changed to Solu-medrol today, however the Solu- Medrol dose will result in greater glucocorticoid provision and may lead to increased insulin needs * Will attempted to transition to a SQ regimen slowly over the course of the day today. Doses will be based on moderate-severe stress of illness and weight. 05/29/18 * Hyperglycemia worsened mid-day yesterday, possibly due to addition of Dobutamine infusion + Heparin drip mixed in D5W * BSGs did return to goal as the insulin drip was titrated * This AM, Norepi was weaned off and Dobutamine is also being weaned down. Heparin drip will also be cut later today. * Pt on CPAP trial for possible extubation * Hydrocortisone IV added due to random cortisol less than 15 and need for pressor support. This will likely lead to increased insulin resistance. * Tube feeds being started today, 10cc/hr "trickle" Peptamen has been ordered * Given multiple increasing and decreasing stressors, paired with deterioration in glycemic control yesterday - will continue IV insulin drip for now until effects of these changes are evident on insulin resistance and glycemic control. 05/28/18 * Type 2 diabetic admitted anemia and hypoxemic respiratory failure, pneumonia suspected based upon CXR, pulmonary edema seen on bronchoscopy * Pt remains intubated, requiring continuous infusions of fentanyl/midazolam for sedation, norepi infusion for pressure support and dobutamine being added today for low EF, likely element of cardiogenic shock. Troponin on the rise, NSTEMI suspected * IV insulin infusion per protocol started yesterday for severe hyperglycemia * BSGs down to goal range overnight * Insulin gtt infusing at 0.5unit/hr this AM * Given multiple significant stressors, including IV pressor use would recommend continuing w/ IV insulin infusion due ease of titration and inconsistent SQ absorption while hypotensive and on pressors. PLAN FOR INPATIENT GLYCEMIC CONTROL: * Lantus 12 units SQ x 1 given this AM, however will give an additional 8 units x 1 now and plan on d/c insulin drip 6 hours later * Lantus SQ BID per the following scale: * BSG less than 120: hold * BSG 120-140: 5 units * BSG 141-180: 10 units * BSG above 180: 14 units * Novolog SQ Q 4 hrs initially * Goal 120 - 160 mg/dL * Correction factor: 30mg/dL/unit * Carb ratio: 1 unit per 9 gm CHO consumed PLAN FOR DISCHARGE: * to be determined
[2018-05-30] MEDS: INSULIN REGULAR 250 UNITS in SODIUM CHLORIDE 0.9% 250ML 250 ML IV SCH (16:04)
[2018-05-30] MEDS: SIMVASTATIN 40 MG TAB PO SCH (19:42)
--- NOTE | 2018-05-30 22:17 | Progress Note ---
Subjective Date of Service: May 30, 2018. Subjective Pt evaluation today including: conversation w/ patient, physical exam Patient seen in the afternoon. Patient appears SOB of breath. Patient is too tired to provide signifcant history. After discussing with cake former, patient was extubated this morning. Family is at bedside and are updated. Problem List Medical Problems: (1) Acute bronchitis Status: Acute (2) GHANSHYAM (acute kidney injury) Status: Acute (3) Enlarged prostate Status: Chronic (4) Epistaxis Status: Acute (5) Exertional dyspnea Status: Acute (6) Hx of cancer of lung Status: Acute (7) Hyperkalemia Status: Acute (8) Hyponatremia Status: Acute (9) Leukocytosis Status: Acute (10) Leukocytosis Status: Acute (11) Lung cancer Status: Acute (12) Multifocal pneumonia Status: Acute (13) Necrotizing pneumonia Status: Acute (14) Pneumonia Status: Acute (15) Sepsis Status: Acute (16) Sepsis Status: Acute (17) SOB (shortness of breath) Status: Acute (18) Stabbing chest pain Status: Acute (19) Substernal chest pain Status: Acute Review of Systems Endo: + fatigue Objective Vital Signs Date Time Temp Pulse Resp B/P (MAP) Pulse Ox O2 Delivery O2 Flow Rate FiO2 05/30/18 20:01 36.8 93 27 115/71 (86) 93 05/30/18 19:44 74 22 98 Mask 8.0 35 05/30/18 19:01 74 26 103/64 (77) 96 05/30/18 18:01 70 22 88/49 (62) 94 05/30/18 17:01 71 22 89/56 (67) 97 05/30/18 16:19 Mask 05/30/18 16:08 79 20 101/63 (76) 96 Humidified Oxygen 10.0 35 Mask 05/30/18 16:00 78 25 98 05/30/18 16:00 78 25 98 05/30/18 16:00 78 25 98 05/30/18 15:10 88 24 98 Mask 8.0 35 05/30/18 15:00 36.6 71 23 98 Humidified Oxygen 10.0 35 Mask 05/30/18 14:00 72 23 108/45 (66) 96 Humidified Oxygen 10.0 35 Mask 05/30/18 12:00 35.9 83 29 119/41 (67) 93 Humidified Oxygen 13.0 40 108/64 (79) Mask 05/30/18 11:54 88 24 99 Mask 8.0 35 05/30/18 10:00 82 29 135/51 (79) 93 Humidified Oxygen 13.0 40 Mask 05/30/18 09:00 82 22 121/45 (70) 94 Humidified Oxygen 13.0 40 Mask 05/30/18 08:00 36.1 98 20 137/87 (104) 98 Humidified Oxygen 13.0 40 118/76 (90) Mask 05/30/18 08:00 High Flow Oxygen 40 05/30/18 08:00 13 Humidified Oxygen 40 Mask 05/30/18 07:06 30 05/30/18 07:02 30 05/30/18 06:31 36.1 88 20 120/53 (75) 95 Mechanical Ventilator 30 05/30/18 06:01 36.1 71 21 124/61 (82) 100 Mechanical Ventilator 30 05/30/18 06:00 36.1 72 18 125/61 (82) 99 Mechanical Ventilator 30 05/30/18 05:31 36.2 66 20 107/56 (73) 98 Mechanical Ventilator 30 05/30/18 05:01 36.2 68 19 107/53 (71) 99 Mechanical Ventilator 30 05/30/18 05:00 36.2 68 19 111/54 (73) 99 Mechanical Ventilator 30 05/30/18 04:52 30 05/30/18 04:31 36.2 70 15 116/55 (75) 100 Mechanical Ventilator 30 05/30/18 04:01 36.2 74 19 127/62 (83) 100 Mechanical Ventilator 30 05/30/18 04:00 36.2 76 21 126/62 (83) 99 Mechanical Ventilator 30 05/30/18 03:31 36.3 70 20 105/55 (72) 100 Mechanical Ventilator 30 05/30/18 03:01 36.3 67 19 102/55 (71) 99 Mechanical Ventilator 30 05/30/18 03:00 36.3 69 19 105/56 (72) 99 Mechanical Ventilator 30 05/30/18 02:22 30 05/30/18 02:01 36.3 68 19 104/53 (70) 99 Mechanical Ventilator 30 05/30/18 02:00 36.3 69 18 105/52 (69) 99 Mechanical Ventilator 30 05/30/18 01:31 36.3 71 17 99/57 (71) 100 Mechanical Ventilator 30 05/30/18 01:24 36.3 70 18 88/63 (71) 100 Mechanical Ventilator 30 05/30/18 01:01 36.2 71 18 101/58 (72) 100 Mechanical Ventilator 30 05/30/18 01:00 36.2 72 19 103/59 (74) 100 Mechanical Ventilator 30 05/30/18 00:01 36.1 83 19 152/68 (96) 100 Mechanical Ventilator 30 05/30/18 00:00 36.1 86 17 150/67 (94) 100 Mechanical Ventilator 30 05/29/18 23:31 36.1 85 19 110/98 (102) 99 Mechanical Ventilator 30 05/29/18 23:21 30 05/29/18 23:01 36.1 85 18 95/61 (72) 98 Mechanical Ventilator 30 05/29/18 23:00 36.1 86 18 94/61 (72) 98 Mechanical Ventilator 30 05/29/18 22:31 36.3 86 18 127/52 (77) 98 Mechanical Ventilator 30 Physical Exam Comments: General Appearance: no apparent distress, + thin, on oxy mask Neck: supple, no adenopathy, no JVD, trachea midline Respiratory/Chest: no respiratory distress, no accessory muscle use, + decreased breath sounds Cardiovascular: no edema, no gallop, no JVD, no murmur, + tachycardia Abdomen: normal bowel sounds, non tender, soft, no organomegaly Extremities: normal inspection, no pedal edema, no calf tenderness, normal capillary refill, pelvis stable Neurologic/Psychiatric: awake, but lethargic Skin: normal color, warm/dry, no rash Laboratory Results Last 24 Hours Test 05/29/18 22:42 05/29/18 23:55 05/30/18 00:50 05/30/18 01:46 Bedside Glucose (other) 221 mg/dl 211 mg/dl 220 mg/dl 211 mg/dl Test 05/30/18 02:43 05/30/18 03:54 05/30/18 04:22 05/30/18 04:34 Bedside Glucose (other) 207 mg/dl 221 mg/dl 225 mg/dl Activated Partial Thromboplast Time 31.7 SECONDS Partial Thromboplastin Ratio 1.2 Test 05/30/18 05:54 05/30/18 06:52 05/30/18 08:25 05/30/18 08:31 Bedside Glucose (other) 212 mg/dl 191 mg/dl Bedside Glucose 191 mg/dl White Blood Count 13.93 K/uL Red Blood Count 3.43 M/uL Hemoglobin 9.0 g/dL Hematocrit 28.1 % Mean Corpuscular Volume 81.9 fL Mean Corpuscular Hemoglobin 26.2 pg Mean Corpuscular Hemoglobin Concent 32.0 g/dl Platelet Count 319 K/uL Mean Platelet Volume 8.9 fL Neutrophils (%) (Auto) 93.2 % Lymphocytes (%) (Auto) 2.4 % Monocytes (%) (Auto) 3.2 % Eosinophils (%) (Auto) 0.0 % Basophils (%) (Auto) 0.1 % Neutrophils # (Auto) 12.98 K/uL Lymphocytes # (Auto) 0.33 K/uL Monocytes # (Auto) 0.45 K/uL Eosinophils # (Auto) 0.00 K/uL Basophils # (Auto) 0.01 K/uL RDW Standard Deviation 56.6 fL RDW Coefficient of Variation 18.8 % Immature Granulocyte % (Auto) 1.1 % Immature Granulocyte # (Auto) 0.16 K/uL Sodium Level 141 mmol/L Potassium Level 3.8 mmol/L Chloride Level 111 mmol/L Carbon Dioxide Level 23 mmol/L Anion Gap 6.0 mmol/L Blood Urea Nitrogen 21 mg/dl Creatinine 0.81 mg/dl Est Creatinine Clear Calc Drug Dose 69.4 ml/min Estimated GFR () 101.5 Estimated GFR (Non- 87.6 BUN/Creatinine Ratio 25.7 Random Glucose 209 mg/dl Calcium Level 8.3 mg/dl Phosphorus Level 2.8 mg/dl Magnesium Level 2.3 mg/dl Test 05/30/18 09:10 05/30/18 10:15 05/30/18 11:20 05/30/18 12:14 Bedside Glucose 201 mg/dl 208 mg/dl 180 mg/dl 162 mg/dl Test 05/30/18 13:16 05/30/18 15:10 05/30/18 15:57 05/30/18 18:10 Bedside Glucose 168 mg/dl 122 mg/dl 133 mg/dl 126 mg/dl Test 05/30/18 18:20 05/30/18 20:06 Blood Gas Sample Site R Brachial Bedside Blood Gas pH (LAB) 7.41 Bedside Blood Gas pCO2 (LAB) 36 mmHg Bedside Blood Gas pO2 (LAB) 64 mmHg Bedside Blood Gas HCO3 (LAB) 23 meq/L Bedside Blood Gas Total CO2 24 mEq/l Bedside Blood Gas Base Excess (LAB) -2.0 meq/L Bedside Blood Gas O2 Saturation 93.0 % Lester Test Pass Bedside Glucose 136 mg/dl Assessment and Plan 2 y/o M who was admitted on 05/26 with PNA and COPD exacerbation - Acute hypoxic respiratory failure, respiratory distress, due to pulmonary edema, acute heart failure intubated on 05/27 emergently Extubated today CXR with improved aeration of right lower lobe On oxymask management per ICU High likelihood of reintubation. Family is updated on poor prognosis. May decide against reintubation - Acute systolic heart failure, acute decompensation EF low at 15-20% h/o ischemic cardiomyopathy, h/o low EF in the 's but most recent EF had improved earlier this year placed on Dobutamine, making adequate urine, lungs clearing cardiology following poor overall prognosis h/o seven stents, none recently - Left upper lobe cavitary lesion, questionable right lower lobe infiltrate no evidence of mucous on bronchoscopy yesterday antibiotics stopped, placed on Voriconazole due to h/o Aspergillus bronchial lavage sent for culture, negative - Elevated troponin, NSTEMI type II demand ischemia due to tachycardia, respiratory distress, attempted electrocardioversion twice yesterday troponin peaked at 14, down to [address] Chaudhry, certainly left heart cath could be considered in the future, but patient would not be candidate for stenting, cannot tolerate DAPT due to nose bleeds - Worsening anemia, assumed blood loss, but still unclear etiology Protonix IV BID was heme positive stool in the ED transfused 4 units total, Hb 9.0 today - COPD: no evidence of exacerbation - DM with hyperglycemia insulin infusion, pharmacy management - H/o lung cancer had recent PET scan as outpatient, no evidence of recurrent disease per Dr. Poole, had isolated small cell lung CA, treated with chemotherapy and radiation no further work up at this time as he would not be a candidate for any type of treatment CAD: hx of [place] and stents x7 Pt could not tolerate plavix (nosebleeds) and is on aspirin 81mg Holding for now given above Hyperlipidemia: continue home meds BPH: continue home meds Spent 35 minutes in management of patient, reviewing chart, discussing with consultants. Family at bedside, updated. Continued [facility] stay due to: other (acute care continues) Discharge planning: uncertain
--- NOTE | 2018-05-30 22:25 | SURGICAL CONSULTATION ---
DATE OF CONSULTATION: 05/30/2018 REASON FOR CONSULTATION: Left upper lobe cavity. HISTORY OF PRESENT ILLNESS: Félix Aden is a patient that I know of. I first met Mr. Aden more than 2 years ago. The patient had a large left upper lobe mass and paratracheal adenopathy and I performed an endobronchial ultrasound with biopsy and it turns out the patient had small cell lung carcinoma. The patient underwent chemotherapy and radiation and actually did well. He underwent chemotherapy and radiation concurrently and was last treated in 06/2016. 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 He has got a cavity in his left upper lobe. There were some metabolically active areas in left upper lobe; however, I believe all this may be inflammatory. The patient has lost a considerable amount of weight and has been readmitted here a few days ago with increasing pulmonary issues. He was intubated and now he got off the ventilator. I had a long talk with the patient and his . He is quite weak. The patient really is in bad shape. He has an ischemic cardiomyopathy. He has poor LV function. They have asked me to comment on this cavity in his left upper chest. PAST MEDICAL HISTORY: 1. Recurrent pneumonia. 2. Small cell lung carcinoma treated with no obvious evidence of disease. 3. Benign prostatic hypertrophy. 4. History of kidney stones. 5. Ischemic cardiomyopathy. 6. Electrolyte abnormalities. 7. Coronary artery disease. 8. History of cigarette smoking. 9. History of peptic ulcer disease. 10. History of myocardial infarction. 11. Hyperlipidemia. 12. Hypertension. 13. Questionable Aspergillus. PAST SURGICAL HISTORY: 1. Endobronchial ultrasound with biopsy. 2. Percutaneous transluminal angioplasty of the right common femoral artery. MEDICATIONS: Please see chart. ALLERGIES: No known drug allergies. SOCIAL HISTORY: The patient quit smoking many years ago. He worked for [employer]. His and daughter are very supportive. He does not use alcohol. FAMILY MEDICAL HISTORY: There is a history of coronary artery disease, myocardial infarction, diabetes, but no unknown lung cancer. REVIEW OF SYSTEMS: Please see history of present illness. The patient has a productive cough with some blood-streaked sputum. Quite short of breath and dyspnea on exertion. He continued to lose weight. He has been anorexic. He has got some sweats. He has a Dawson catheter which is draining. He has had no obvious wound breakdown. He has no focal deficits, but is very weak and has lost quite a bit of weight. PHYSICAL EXAMINATION: GENERAL: This is an emaciated ill-appearing male who looks much different than he did when I saw him 2 years ago. VITAL SIGNS: He stands 5 feet 7 inches tall and currently weighs about 60 kg. He has temporal wasting. HEENT: His pupils are small, but reactive. His sclerae are pale. He has no nasolabial flattening. He is wearing a facemask with oxygen. Saturations are 95%. Tongue is midline. Oral mucosa is dry. NECK: Supple. He has a dressing on his right neck where he had a central line. There is no hematoma. He has no carotid bruits. I do not really detect lymphadenopathy in the supraclavicular or cervical area. LUNGS: He has decreased breath sounds throughout both lung watts. HEART: He has a regular rate and rhythm of his heart without a significant rub. ABDOMEN: Soft and really does not have tenderness. EXTREMITIES: He has 2+ edema of his lower legs in pretibial and pedal areas. It is difficult for me to feel pulses, which may be secondary to his edema. NEUROLOGIC: He can move all extremities to command, but is very weak and slow to respond. ASSESSMENT AND PLAN: Acute pneumonia and pneumonitis bilaterally. I reviewed his CT scan and his recent PET with radiology. I do not think we are dealing with metastatic disease. I think we are dealing with infection and inflammation. Not only this patient not a candidate for surgery, but I would not put a tube in him either. It is unclear to me whether his left upper lobe bronchus connects with his cavity; however, if it does, then it may be that he is contaminating his lower lung watts because of infected material. One option would be a one-way valve. This is [place] one-way valve, could be inserted into the left upper lobe bronchus which would allow egress of air and fluid, but would not allow air and thereby obliterating the cavity in the best case scenario. I have contacted the company and hopefully we can get this on a compassionate use basis. This is not usually used in the face of infection. I have discussed this with the patient's . DOMENICA
[2018-05-31] VITALS (21 sets, daily range): BP systolic 104–129; BP diastolic 61–80; PULSE 73–103; TEMP 36.4–36.9; O2SAT 89–99
[2018-05-31] MEDS: LEVALBUTEROL 1.25MG/3ML NEB INH SCH (03:30)
[2018-05-31 04:15] LABS: HEMATOCRIT 28.2 % (42-52); HEMOGLOBIN 8.8 g/dL (14.0-18.0); MEAN CELL VOLUME 82.9 fL (80-100); MEAN CORPUSCULAR HEMOGLOBIN 25.9 pg (25-34); MEAN CORPUSCULAR HGB CONC 31.2 g/dl (32-36); MEAN PLATELET VOLUME 9.3 fL (7.4-10.4); PLATELET COUNT 359 K/uL (130-400); RED CELL DISTRIBUTION WIDTH CV 19.2 % (11.5-14.5); RED CELL DISTRIBUTION WIDTH SD 58.2 fL (36.4-46.3); WHITE BLOOD COUNT 16.98 K/uL (4.8-10.8)
[2018-05-31 04:24] LABS: PTT PATIENT 28.9 SECONDS (21.0-31.0)
[2018-05-31] MEDS: INSULIN ASPART 100 UNITS/ML 3 ML PEN SC SCH ×6 (04:29→20:00)
[2018-05-31] MEDS: HEPARIN SOD 5000 UNIT/0.5 ML CARP SQ SCH ×2 (05:50→17:42)
[2018-05-31] MEDS: PANTOprazole INJ 40 MG in SYRINGE 0 ML IV SCH ×2 (08:14→21:36)
[2018-05-31] MEDS: INSULIN GLARGINE SOLOSTAR 100 UNITS/ML 3 ML PEN SC SCH (08:24)
[2018-05-31] MEDS: FERROUS SULFATE 325 MG TAB PO SCH ×2 (08:39→16:20)
[2018-05-31] MEDS: ASPIRIN 81 MG CHEW PO SCH (08:39)
[2018-05-31] MEDS: CEROVITE ADV FORMULA TAB PO SCH (08:39)
[2018-05-31] MEDS ORDERED: INSULIN GLARGINE SOLOSTAR 100 UNITS/ML 3 ML PEN SC ONE (09:00)
[2018-05-31] MEDS ORDERED: SENNA 8.6 MG TAB PO ONE (09:00)
--- NOTE | 2018-05-31 09:02 | Palliative Care Progress Note ---
Palliative Care Progress Note Date of Service May 31, 2018. Subjective Pt evaluation today including: conversation w/ patient, conversation w/ family ( Chantal and daughter), physical exam, chart review, conversation w/ [facility] consultant (Dr. Nick) Patient is extubated, awake and alert this morning. He is oriented to person and place, but does not remember anything from the last few days since arriving to hospital. Family is at bedside and quite encouraged by patient's progress. Patient's daughter is still tearful. Plan is to continue current treatment. Patient remains DNR. Review of Systems Constitutional: + weakness ENT: No trouble swallowing Respiratory: + cough, No sputum, No wheezing, No shortness of breath Cardiac: No chest pain, No edema Abdomen: No pain, No nausea, No vomiting Male : No problem reported Neurologic: + memory loss (just last few days) Psychiatric: No anxiety Objective Vital Signs Date Time Temp Pulse Resp B/P (MAP) Pulse Ox O2 Delivery O2 Flow Rate FiO2 05/31/18 06:01 88 24 117/68 (84) 92 Humidified Air 35 Mask 05/31/18 05:01 94 25 110/65 (80) 93 Humidified Air 28 Mask 05/31/18 04:01 36.5 103 32 115/64 (81) 94 Humidified Air 28 Mask 05/31/18 03:30 85 20 96 Mask 6.0 28 05/31/18 03:01 93 19 116/71 (86) 97 Humidified Air 28 Mask 05/31/18 02:01 86 23 112/64 (80) 97 Humidified Air 28 Mask 05/31/18 01:01 98 21 114/62 (79) 95 Humidified Air 28 Mask 05/31/18 00:01 36.9 100 27 104/62 (76) 93 Humidified Air 28 Mask 05/31/18 00:01 95 Mask 6.0 28 05/30/18 23:47 88 24 98 Mask 8.0 35 05/30/18 23:01 80 20 109/60 (76) 99 Humidified Oxygen 35 Mask 05/30/18 22:01 85 28 111/66 (81) 98 05/30/18 21:01 88 26 116/66 (83) 96 05/30/18 20:01 36.8 93 27 115/71 (86) 93 05/30/18 19:44 74 22 98 Mask 8.0 35 05/30/18 19:01 74 26 103/64 (77) 96 05/30/18 18:01 70 22 88/49 (62) 94 05/30/18 17:01 71 22 89/56 (67) 97 05/30/18 16:19 Mask 05/30/18 16:08 79 20 101/63 (76) 96 Humidified Oxygen 10.0 35 Mask 05/30/18 16:00 78 25 98 05/30/18 16:00 78 25 98 05/30/18 16:00 78 25 98 05/30/18 15:10 88 24 98 Mask 8.0 35 05/30/18 15:00 36.6 71 23 98 Humidified Oxygen 10.0 35 Mask 05/30/18 14:00 72 23 108/45 (66) 96 Humidified Oxygen 10.0 35 Mask 05/30/18 12:00 35.9 83 29 119/41 (67) 93 Humidified Oxygen 13.0 40 108/64 (79) Mask 05/30/18 11:54 88 24 99 Mask 8.0 35 05/30/18 10:00 82 29 135/51 (79) 93 Humidified Oxygen 13.0 40 Mask 05/30/18 09:00 82 22 121/45 (70) 94 Humidified Oxygen 13.0 40 Mask Physical Exam General Appearance: no apparent distress, + thin ENT: hearing grossly normal Neck: supple, no JVD Respiratory/Chest: no respiratory distress, no accessory muscle use, + decreased breath sounds, + rhonchi Cardiovascular: regular rate, rhythm, no edema, + normal peripheral pulses Abdomen: normal bowel sounds, non tender, soft Neurologic/Psychiatric: alert, normal mood/affect, oriented x 3 Skin: normal color Laboratory Results Last 24 Hours Test 05/30/18 09:10 05/30/18 10:15 05/30/18 11:20 05/30/18 12:14 Bedside Glucose 201 mg/dl 208 mg/dl 180 mg/dl 162 mg/dl Test 05/30/18 13:16 05/30/18 15:10 05/30/18 15:57 05/30/18 18:10 Bedside Glucose 168 mg/dl 122 mg/dl 133 mg/dl 126 mg/dl Test 05/30/18 18:20 05/30/18 20:06 05/30/18 23:50 05/31/18 03:59 Blood Gas Sample Site R Brachial Bedside Blood Gas pH (LAB) 7.41 Bedside Blood Gas pCO2 (LAB) 36 mmHg Bedside Blood Gas pO2 (LAB) 64 mmHg Bedside Blood Gas HCO3 (LAB) 23 meq/L Bedside Blood Gas Total CO2 24 mEq/l Bedside Blood Gas Base Excess (LAB) -2.0 meq/L Bedside Blood Gas O2 Saturation 93.0 % Letser Test Pass Bedside Glucose 136 mg/dl 179 mg/dl White Blood Count 16.98 K/uL Red Blood Count 3.40 M/uL Hemoglobin 8.8 g/dL Hematocrit 28.2 % Mean Corpuscular Volume 82.9 fL Mean Corpuscular Hemoglobin 25.9 pg Mean Corpuscular Hemoglobin Concent 31.2 g/dl RDW Standard Deviation 58.2 fL RDW Coefficient of Variation 19.2 % Platelet Count 359 K/uL Mean Platelet Volume 9.3 fL Activated Partial Thromboplast Time 28.9 SECONDS Partial Thromboplastin Ratio 1.1 Test 05/31/18 04:15 05/31/18 04:17 05/31/18 08:19 Bedside Glucose 249 mg/dl 238 mg/dl 236 mg/dl Assessment and Plan Problem list: Respiratory failure Hx small cell lung cancer Acute decompensated heart failure with EF 15-20% Goals of care Palliative care recs: -Patient remains DNR. -Greatly improved. Extubated and off all pressors. -Plan is for patient to eat today, remove Dawson catheter, continue to monitor in ICU. -Potential transfer out of ICU today/tomorrow. -POLST form should be completed prior to discharge which I will follow up on. Total time spent 25 minutes with >50% of time spent at bedside with patient family discussing condition/goals of care. Palliative Performance Scale: 30 % Continued [facility] stay due to: other (acute care continues) Discharge planning: uncertain
--- NOTE | 2018-05-31 09:10 | Critical Care Progress Note ---
Critical Care Progress Note Date of Service May 31, 2018. ICU Day ICU Day Number: [address] Nick Subjective Complaint of amnesia of the entire hospitalization stay at this time. Reports his voice is improving, desires to eat today Objective General: Alert and oriented Skin: Warm, dry, Head: Atraumatic Ears, nose, mouth and throat: Airway patent Cardiovascular: Normal peripheral perfusion Respiratory: Coarse respirations Gastrointestinal: Non distended Musculoskeletal: No deformity Assessment & Plan Reason Critically Ill: 72-year-old male with possibly recurrent lung cancer who has hypoxic respiratory failure pneumonia. PLAN: Neuro: Discontinued all sedative medication Resp: Hypoxic respiratory failure: Improving -Liberated from mechanical ventilation yesterday -Fungal elements reported negative, aspergillus testing remains not reported -Scant normal cee from BAL, no growth and blood cultures -We will continue antifungal given improvement and awaiting formal aspergillus testings -At this point I anticipate IV treatment with 7 days and will consult with infectious disease regarding transition to oral dosing for possible 6-12 weeks CV: Hypotension: Resolved Possible cardiomyopathy -Continue aspirin, did not tolerate Plavix secondary to recurrent epistaxis -Finish 24 hours of heparin Reduced EF heart failure, systolic -Trial of dobutamine: Discontinued Prolonged QTC: Improving -Discontinue Zofran Fluids/Renal: Likely euvolemic -Transitioning to patient directed fluids with oral intake ID: Discontinue antibacterial 05/28 -Voriconazole for possible aspergillus -Send 1 3 fungitel,: Negative aspergillus panel: Pending -Reviewed outpatient records, last pulmonary note was placed on 12 day course of itraconazole GI/Nutrition: N.p.o. -Anticipate speech therapy evaluation today Heme: Anemia -Heparin DVT prophylaxis Endocrine: Hyperglycemia -Pharmacy glycemic control consult Vascular access: Central line, arterial line: Discontinued May 30, 2018 Code Status: DO NOT RESUSCITATE, DO NOT INTUBATE in event of respiratory insufficiency Patient was discussed on multidisciplinary rounds I have personally spent 45 minutes of critical care time in the direct management of this patient. This is a life/limb threatening event. This includes time spent evaluating patient, direct bedside care, chart review, placing orders, interpretation of diagnostic studies, discussion with consultants, patient, and/or family members regarding treatment decisions, as well as other required patient management activities. This time is exclusive of all separately billable procedures, and teaching time and separate from and in addition to any other critical care service time. Consults & Procedures Consultants: Cardiology: Isidoro Infectious disease: [place] Data Medications: Current Inpatient Medications Medications (Trade) Dose Ordered Sig/Vianey Route Start Time Stop Time Status Last Admin Dose Admin Acetaminophen (Tylenol Tab) 650 mg Q4H PRN PO 05/26/18 15:00 06/25/18 14:59 05/27/18 05:18 650 MG Magnesium Hydroxide (Milk Of Magnesia Susp) 30 ml Q6H PRN PO 05/26/18 15:00 06/25/18 14:59 Glucose (Glucose 40% Gel) 15-30 GRAMS 15 GRAMS... UD PRN PO 05/26/18 15:00 06/25/18 14:59 Glucose (Glucose Chew Tab) 4-8 Tablets 4 Tabl... UD PRN PO 05/26/18 15:00 06/25/18 14:59 Dextrose (Dextrose 50% 50ML Syringe) 25-50ML 25ML FOR ... UD PRN IV 05/26/18 15:00 06/25/18 14:59 05/27/18 21:44 25 ML Glucagon (Glucagon Inj) 1 mg UD PRN SQ 05/26/18 15:00 06/25/18 14:59 Carbohydrates (Carbohydrates For Hypoglycemia) 15-30 GRAMS 15 grams if BSG 54-69... UD PRN PO 05/26/18 15:00 06/25/18 14:59 Finasteride (Proscar Tab) 5 mg QAM PO 05/27/18 08:00 06/26/18 08:59 Future Hold 05/28/18 10:21 5 MG Simvastatin (Zocor Tab) 40 mg QPM PO 05/26/18 21:00 06/25/18 20:59 05/29/18 21:32 40 MG Heparin Sodium (Porcine) (Heparin 100 Unit/ml 5ml Flush) 5 ml PRN PRN IV 05/27/18 01:30 06/26/18 01:29 05/30/18 08:50 5 ML Aspirin (Aspirin Chew) 81 mg DAILY PO 05/28/18 09:00 06/27/18 08:59 05/31/18 08:39 81 MG Pantoprazole Sodium 40 mg/ Syringe 10 ml @ 5 mls/min DAILY@21 IV 05/27/18 21:00 06/26/18 20:59 05/31/18 08:14 5 MLS/MIN Miscellaneous Information (Consult Glycemic Management Pharmacy) 1 ea UD PRN N/A 05/27/18 15:14 06/26/18 15:13 Heparin Sodium (Porcine) (Heparin 10 Unit/ ml 5 ml Flush) 5 ml PRN PRN FLUSH 05/28/18 00:15 06/27/18 00:14 Voriconazole 230 mg/Sodium Chloride 100 ml @ 75 mls/hr Q12H IV 05/29/18 10:00 06/28/18 09:59 Future hold 05/30/18 22:05 75 MLS/HR Heparin Sodium (Porcine) (Heparin Sq 5000 Unit/0.5ml) 5,000 unit Q12H SQ 05/30/18 06:00 06/29/18 05:59 05/31/18 05:50 5,000 UNIT Methylprednisolone Sodium Succinate 30 mg/Syringe 0.48 ml @ 1.5 mls/min Q12H IV 05/30/18 12:00 06/29/18 11:59 05/30/18 23:58 1.5 MLS/MIN Levalbuterol (Xopenex 1.25MG/ 3ML Neb) 1.25 mg Q4R PRN INH 05/30/18 10:45 06/29/18 10:44 Levalbuterol (Xopenex 1.25MG/ 3ML Neb) 1.25 mg Q4R INH 05/30/18 12:00 05/31/18 11:59 05/31/18 03:30 1.25 MG Insulin Aspart (novoLOG ASPART) SLIDING SCALE Q4 SC 05/30/18 20:00 06/29/18 19:59 05/31/18 08:23 4 UNITS Insulin Glargine (Lantus Solostar Pen) See Protocol Text BID SC 05/31/18 09:00 06/30/18 08:59 Future Hold Ferrous Sulfate (Feosol Tab) 325 mg BIDM PO 05/31/18 07:15 06/30/18 07:14 05/31/18 08:39 325 MG Multivitamins/ Minerals (Multivitamin W/ Minerals Tab) 1 tab QAM PO 05/31/18 09:00 06/30/18 08:59 05/31/18 08:39 1 TAB Vital Signs: Date Time Temp Pulse Resp B/P (MAP) Pulse Ox O2 Delivery O2 Flow Rate FiO2 05/31/18 06:01 88 24 117/68 (84) 92 Humidified Air 35 Mask 05/31/18 05:01 94 25 110/65 (80) 93 Humidified Air 28 Mask 05/31/18 04:01 36.5 103 32 115/64 (81) 94 Humidified Air 28 Mask 05/31/18 03:30 85 20 96 Mask 6.0 28 05/31/18 03:01 93 19 116/71 (86) 97 Humidified Air 28 Mask 05/31/18 02:01 86 23 112/64 (80) 97 Humidified Air 28 Mask 05/31/18 01:01 98 21 114/62 (79) 95 Humidified Air 28 Mask 05/31/18 00:01 36.9 100 27 104/62 (76) 93 Humidified Air 28 Mask 05/31/18 00:01 95 Mask 6.0 28 05/30/18 23:47 88 24 98 Mask 8.0 35 05/30/18 23:01 80 20 109/60 (76) 99 Humidified Oxygen 35 Mask 05/30/18 22:01 85 28 111/66 (81) 98 05/30/18 21:01 88 26 116/66 (83) 96 05/30/18 20:01 36.8 93 27 115/71 (86) 93 05/30/18 19:44 74 22 98 Mask 8.0 35 05/30/18 19:01 74 26 103/64 (77) 96 18 18:01 70 22 88/49 (62) 94 05/30/18 17:01 71 22 89/56 (67) 97 05/30/18 16:19 Mask 18 16:08 79 20 101/63 (76) 96 Humidified Oxygen 10.0 35 Mask 05/30/18 16:00 78 25 98 18 16:00 78 25 98 18 16:00 78 25 98 18 15:10 88 24 98 Mask 8.0 35 18 15:00 36.6 71 23 98 Humidified Oxygen 10.0 35 Mask 18 14:00 72 23 108/45 (66) 96 Humidified Oxygen 10.0 35 Mask 18 12:00 35.9 83 29 119/41 (67) 93 Humidified Oxygen 13.0 40 108/64 (79) Mask 05/30/18 11:54 88 24 99 Mask 8.0 35 05/30/18 10:00 82 29 135/51 (79) 93 Humidified Oxygen 13.0 40 Mask Laboratory Results: Last 24 Hours Test 05/30/18 09:10 05/30/18 10:15 05/30/18 11:20 05/30/18 12:14 Bedside Glucose 201 mg/dl 208 mg/dl 180 mg/dl 162 mg/dl Test 05/30/18 13:16 05/30/18 15:10 05/30/18 15:57 05/30/18 18:10 Bedside Glucose 168 mg/dl 122 mg/dl 133 mg/dl 126 mg/dl Test 05/30/18 18:20 05/30/18 20:06 05/30/18 23:50 05/31/18 03:59 Blood Gas Sample Site R Brachial Bedside Blood Gas pH (LAB) 7.41 Bedside Blood Gas pCO2 (LAB) 36 mmHg Bedside Blood Gas pO2 (LAB) 64 mmHg Bedside Blood Gas HCO3 (LAB) 23 meq/L Bedside Blood Gas Total CO2 24 mEq/l Bedside Blood Gas Base Excess (LAB) -2.0 meq/L Bedside Blood Gas O2 Saturation 93.0 % Lester Test Pass Bedside Glucose 136 mg/dl 179 mg/dl White Blood Count 16.98 K/uL Red Blood Count 3.40 M/uL Hemoglobin 8.8 g/dL Hematocrit 28.2 % Mean Corpuscular Volume 82.9 fL Mean Corpuscular Hemoglobin 25.9 pg Mean Corpuscular Hemoglobin Concent 31.2 g/dl RDW Standard Deviation 58.2 fL RDW Coefficient of Variation 19.2 % Platelet Count 359 K/uL Mean Platelet Volume 9.3 fL Activated Partial Thromboplast Time 28.9 SECONDS Partial Thromboplastin Ratio 1.1 Test 05/31/18 04:15 05/31/18 04:17 05/31/18 08:19 Bedside Glucose 249 mg/dl 238 mg/dl 236 mg/dl
--- NOTE | 2018-05-31 10:41 | SURGERY PROGRESS NOTE ---
DATE: 05/31/2018 Mr. Aden was seen today. He has improved. His voice seems stronger. He has actually done well overnight relatively. He has an acute pneumonic process which I think is responding. The process in his left upper lobe is interesting. There is a question about whether this is an aspergilloma. At any rate, I believe the chances of us obtaining a [place] endobronchial valve is rather low. I have been in contact with the company and hopefully we will be able to get some word on that. However, at this point, as he is improving, I would not do anything different. Another question would be whether to place a tube in his left upper lobe cavity. My concern would be if there is a connection with his left bronchial tree we would not be able to put it on suction. I have concerns about the actual insertion of the tube. We will continue to follow along and that may be something we would consider.
[2018-05-31] MEDS: VORICONAZOLE IV SCH ×2 (10:46→21:28)
[2018-05-31] MEDS: SODIUM CHLORIDE 0.9% IV SCH ×2 (10:46→21:28)
[2018-05-31] MEDS: METHYLPREDNISOLONE 30 MG in SYRINGE 0 ML IV SCH (12:10)
--- NOTE | 2018-05-31 13:23 | Pharmacy Progress Note ---
Pharmacy Glycemic Short Note 2 Date of Service May 31, 2018. OUTPATIENT ANTIDIABETIC REGIMEN: * Metformin 1gm PO BID * Glipizide ER 2.5mg PO BID * A1c = 6.7% Test 05/30/18 13:16 05/30/18 15:10 05/30/18 15:57 05/30/18 18:10 Bedside Glucose 168 mg/dl (70-99) 122 mg/dl (70-99) 133 mg/dl (70-99) 126 mg/dl (70-99) Test 05/30/18 20:06 05/30/18 23:50 05/31/18 04:15 05/31/18 04:17 Bedside Glucose 136 mg/dl (70-99) 179 mg/dl (70-99) 249 mg/dl (70-99) 238 mg/dl (70-99) Test 05/31/18 08:19 05/31/18 12:15 Bedside Glucose 236 mg/dl (70-99) 212 mg/dl (70-99) ASSESSMENT: 05/31/18 * Patient transitioned off insulin drip last evening * BSGs did begin to climb after drip was discontinued, leading me to believe the patient's basal needs are higher than what was given. Currently has 20 units of basal on board this AM. Will increase basal dose * Correctional insulin dose increase over-night for rising BSGs. Will increase this dose further today as pt likely to eat soon and steroids continue. This should help us catch up on insulin deficiency 05/30/18 * Glycemic control did deteriorate yesterday w/ the addition of IV steroids and cont tube feeds * Goals not met with drip over last 24 hrs as drip rates were quite low prior to the above changes. This resulted in very small incremental drip increases over a prolonged period of time despite rising BSGs. An off protocol rate increase would have worked better in retrospect. * New changes today: extubated, tube feeds stopped, remains NPO, dobutamine off , heparin gtt mixed in dextrose also stopped: all factors that should decrease insulin needs * Hydrocortisone IV d/c'd and changed to Solu-medrol today, however the Solu- Medrol dose will result in greater glucocorticoid provision and may lead to increased insulin needs * Will attempted to transition to a SQ regimen slowly over the course of the day today. Doses will be based on moderate-severe stress of illness and weight. 05/29/18 * Hyperglycemia worsened mid-day yesterday, possibly due to addition of Dobutamine infusion + Heparin drip mixed in D5W * BSGs did return to goal as the insulin drip was titrated * This AM, Norepi was weaned off and Dobutamine is also being weaned down. Heparin drip will also be cut later today. * Pt on CPAP trial for possible extubation * Hydrocortisone IV added due to random cortisol less than 15 and need for pressor support. This will likely lead to increased insulin resistance. * Tube feeds being started today, 10cc/hr "trickle" Peptamen has been ordered * Given multiple increasing and decreasing stressors, paired with deterioration in glycemic control yesterday - will continue IV insulin drip for now until effects of these changes are evident on insulin resistance and glycemic control. 05/28/18 * Type 2 diabetic admitted anemia and hypoxemic respiratory failure, pneumonia suspected based upon CXR, pulmonary edema seen on bronchoscopy * Pt remains intubated, requiring continuous infusions of fentanyl/midazolam for sedation, norepi infusion for pressure support and dobutamine being added today for low EF, likely element of cardiogenic shock. Troponin on the rise, NSTEMI suspected * IV insulin infusion per protocol started yesterday for severe hyperglycemia * BSGs down to goal range overnight * Insulin gtt infusing at 0.5unit/hr this AM * Given multiple significant stressors, including IV pressor use would recommend continuing w/ IV insulin infusion due ease of titration and inconsistent SQ absorption while hypotensive and on pressors. PLAN FOR INPATIENT GLYCEMIC CONTROL: * Lantus 20 units SQ x 1 this AM * Lantus SQ BID per the following scale: (dose increase) * BSG less than 120: hold * BSG 120-140: 6 units * BSG 141-180: 12 units * BSG above 180: 15 units * Novolog SQ * Continue Q 4 hr BSG checks and coverage * Goal 120 - 160 mg/dL * Correction factor: 20mg/dL/unit (dose increase) * Carb ratio: 1 unit per 9 gm CHO consumed (no change) PLAN FOR DISCHARGE: * to be determined
--- NOTE | 2018-05-31 18:03 | Cardiology Follow-Up ---
Subjective Date of Service: May 31, 2018. Pt evaluation today including: conversation w/ patient, conversation w/ family , physical exam, chart review, lab review, review of studies, review of inpatient medication list History of Present Illness This afternoon the patient complained primarily of a productive cough. He did not report pain. He stated that his breathing was somewhat labored but overall he felt comfortable. He had a good appetite and was able eat some food today. Social History Smoking Status: Former Smoker History of Alcohol Use: No Review of Systems Respiratory: + cough, No sputum, No wheezing, No shortness of breath Cardiac: No chest pain, No edema This cannot be obtained as the patient is currently intubated and sedated Objective Vital Signs Past 12 Hours Date Time Temp Pulse Resp B/P (MAP) Pulse Ox O2 Delivery O2 Flow Rate FiO2 05/31/18 16:28 85 25 129/69 (89) 91 Nasal Cannula 2.0 05/31/18 16:00 36.4 81 22 119/80 (93) 92 Nasal Cannula 2.0 05/31/18 15:00 86 30 112/72 (85) 92 Nasal Cannula 2.0 05/31/18 14:00 73 25 120/79 (93) 96 Nasal Cannula 2.0 05/31/18 13:00 78 23 121/76 (91) 97 Nasal Cannula 2.0 05/31/18 12:00 36.4 78 29 123/77 (92) 99 Nasal Cannula 2.0 05/31/18 09:00 87 29 114/72 (86) 93 Nasal Cannula 2.0 05/31/18 08:00 36.4 91 25 123/72 (89) 96 Nasal Cannula 2.0 05/31/18 08:00 Nasal Cannula 05/31/18 08:00 96 Nasal Cannula 2.0 05/31/18 06:01 88 24 117/68 (84) 92 Humidified Air 35 Mask Last Recorded Weight-Kilograms: 62.200 Intake & Output 8-Hour Column 05/31/18 06/01/18 06/01/18 16:00 00:00 08:00 Intake Total 460 ml Balance 460 ml 24-Hour Column 06/01/18 08:00 Intake Total 460 ml Balance 460 ml Physical Exam Patient was alert and conversant. He seem to have some slowed mentation at times but he answered all questions appropriately. HEENT: Pupils are equal Neck: Patient's neck is supple. Lungs: Coarse upper airway congestion and some bronchial breath sounds. Cardiac: Heart demonstrates a regular rate and rhythm. Normal S1 and S2. No murmurs on examination. Pulses: The patient has palpable radial pulses bilaterally that are equal in intensity. Radial art line in the right wrist Extremities: There was no evidence of hypoperfusion. There is no cyanosis or clubbing. There is no edema. Skin: I did not appreciate any rashes on examination today. Data Laboratory Results: Last 24 Hours Test 05/30/18 18:10 05/30/18 18:20 05/30/18 20:06 05/30/18 23:50 Bedside Glucose 126 mg/dl 136 mg/dl 179 mg/dl Blood Gas Sample Site R Brachial Bedside Blood Gas pH (LAB) 7.41 Bedside Blood Gas pCO2 (LAB) 36 mmHg Bedside Blood Gas pO2 (LAB) 64 mmHg Bedside Blood Gas HCO3 (LAB) 23 meq/L Bedside Blood Gas Total CO2 24 mEq/l Bedside Blood Gas Base Excess (LAB) -2.0 meq/L Bedside Blood Gas O2 Saturation 93.0 % Lester Test Pass Test 05/31/18 03:59 05/31/18 04:15 05/31/18 04:17 05/31/18 08:19 White Blood Count 16.98 K/uL Red Blood Count 3.40 M/uL Hemoglobin 8.8 g/dL Hematocrit 28.2 % Mean Corpuscular Volume 82.9 fL Mean Corpuscular Hemoglobin 25.9 pg Mean Corpuscular Hemoglobin Concent 31.2 g/dl RDW Standard Deviation 58.2 fL RDW Coefficient of Variation 19.2 % Platelet Count 359 K/uL Mean Platelet Volume 9.3 fL Activated Partial Thromboplast Time 28.9 SECONDS Partial Thromboplastin Ratio 1.1 Bedside Glucose 249 mg/dl 238 mg/dl 236 mg/dl Test 05/31/18 12:15 05/31/18 16:17 Bedside Glucose 212 mg/dl 161 mg/dl Imaging: EKG: Telemetry reviewed: Assessment and Plan 1. Acute decompensated left ventricular systolic failure: Clinically much better. His Dawson is out so determining his overall net output will be difficult. He may benefit from a daily diuretic. Without to be very cautious with respect to his volume status. 2. Ischemic cardiomyopathy: I think would be reasonable to restart his outpatient beta-veronica regimen. At some point we could also consider re- initiation of an ELLI-inhibitor. This would depend on his blood pressure and renal function. 3. Coronary artery disease: Hopefully as becomes more ambulatory will have a better assessment of any coronary symptoms. Continue daily aspirin currently.
[2018-05-31] MEDS: BOOST GLUCOSE CONTROL VANILLA PO SCH (21:00)
[2018-05-31] MEDS: SIMVASTATIN 40 MG TAB PO SCH (21:36)
--- NOTE | 2018-05-31 22:23 | Progress Note ---
Subjective Date of Service: May 31, 2018. Subjective Pt evaluation today including: conversation w/ patient, conversation w/ family Patient is more awake today. Patient reports doing better. He just finished his dinner. He reports breathing well. Patient states that he has been coughing up sputum and "clearing his lungs". Patient understands that he will de likely transferred off the telemetry floor tomorrow. Problem List Medical Problems: (1) Acute bronchitis Status: Acute (2) GHANSHYAM (acute kidney injury) Status: Acute (3) Enlarged prostate Status: Chronic (4) Epistaxis Status: Acute (5) Exertional dyspnea Status: Acute (6) Hx of cancer of lung Status: Acute (7) Hyperkalemia Status: Acute (8) Hyponatremia Status: Acute (9) Leukocytosis Status: Acute (10) Leukocytosis Status: Acute (11) Lung cancer Status: Acute (12) Multifocal pneumonia Status: Acute (13) Necrotizing pneumonia Status: Acute (14) Pneumonia Status: Acute (15) Sepsis Status: Acute (16) Sepsis Status: Acute (17) SOB (shortness of breath) Status: Acute (18) Stabbing chest pain Status: Acute (19) Substernal chest pain Status: Acute Review of Systems Constitutional: No fever, No chills ENT: No hearing loss Respiratory: + cough, + sputum Cardiac: No chest pain Abdomen: No pain Male : No dysuria Neurologic: No paralysis Psychiatric: No depression symptoms Heme: No abnormal bleeding/bruising Endo: + fatigue Skin: No rash All Other Systems: Reviewed and Negative Objective Vital Signs Date Time Temp Pulse Resp B/P (MAP) Pulse Ox O2 Delivery O2 Flow Rate FiO2 05/31/18 18:00 82 15 114/71 (85) 93 Nasal Cannula 1.0 05/31/18 16:28 85 25 129/69 (89) 91 Nasal Cannula 2.0 05/31/18 16:00 36.4 81 22 119/80 (93) 92 Nasal Cannula 2.0 05/31/18 15:00 86 30 112/72 (85) 92 Nasal Cannula 2.0 05/31/18 14:00 73 25 120/79 (93) 96 Nasal Cannula 2.0 05/31/18 13:00 78 23 121/76 (91) 97 Nasal Cannula 2.0 05/31/18 12:00 36.4 78 29 123/77 (92) 99 Nasal Cannula 2.0 05/31/18 09:00 87 29 114/72 (86) 93 Nasal Cannula 2.0 05/31/18 08:00 36.4 91 25 123/72 (89) 96 Nasal Cannula 2.0 05/31/18 08:00 Nasal Cannula 05/31/18 08:00 96 Nasal Cannula 2.0 05/31/18 06:01 88 24 117/68 (84) 92 Humidified Air 35 Mask 05/31/18 05:01 94 25 110/65 (80) 93 Humidified Air 28 Mask 05/31/18 04:01 36.5 103 32 115/64 (81) 94 Humidified Air 28 Mask 05/31/18 03:30 85 20 96 Mask 6.0 28 05/31/18 03:01 93 19 116/71 (86) 97 Humidified Air 28 Mask 05/31/18 02:01 86 23 112/64 (80) 97 Humidified Air 28 Mask 05/31/18 01:01 98 21 114/62 (79) 95 Humidified Air 28 Mask 05/31/18 00:01 36.9 100 27 104/62 (76) 93 Humidified Air 28 Mask 05/31/18 00:01 95 Mask 6.0 28 05/30/18 23:47 88 24 98 Mask 8.0 35 05/30/18 23:01 80 20 109/60 (76) 99 Humidified Oxygen 35 Mask Physical Exam Comments: General Appearance: no apparent distress, + thin, found sitting upright and finishing his dinner Neck: supple, no adenopathy, no JVD, trachea midline Respiratory/Chest: no respiratory distress, no accessory muscle use, + decreased breath sounds Cardiovascular: no edema, no gallop, no JVD, no murmur, normal rate Abdomen: normal bowel sounds, non tender, soft, no organomegaly Extremities: normal inspection, no pedal edema, no calf tenderness, normal capillary refill, pelvis stable Neurologic/Psychiatric: awake, ox2 Skin: normal color, warm/dry, no rash Laboratory Results Last 24 Hours Test 05/30/18 23:50 05/31/18 03:59 05/31/18 04:15 05/31/18 04:17 Bedside Glucose 179 mg/dl 249 mg/dl 238 mg/dl White Blood Count 16.98 K/uL Red Blood Count 3.40 M/uL Hemoglobin 8.8 g/dL Hematocrit 28.2 % Mean Corpuscular Volume 82.9 fL Mean Corpuscular Hemoglobin 25.9 pg Mean Corpuscular Hemoglobin Concent 31.2 g/dl RDW Standard Deviation 58.2 fL RDW Coefficient of Variation 19.2 % Platelet Count 359 K/uL Mean Platelet Volume 9.3 fL Activated Partial Thromboplast Time 28.9 SECONDS Partial Thromboplastin Ratio 1.1 Test 05/31/18 08:19 05/31/18 12:15 05/31/18 16:17 05/31/18 20:11 Bedside Glucose 236 mg/dl 212 mg/dl 161 mg/dl 109 mg/dl Assessment and Plan 72 y/o M who was admitted on 05/26 with PNA and COPD exacerbation - Acute hypoxic respiratory failure, respiratory distress, due to pulmonary edema, acute heart failure intubated on 05/27 emergently Extubated today CXR with improved aeration of right lower lobe Off oxymask today management per ICU Patient did not require reintubation today. 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 - Acute systolic heart failure, acute decompensation EF low at 15-20% h/o ischemic cardiomyopathy, h/o low EF in the s but most recent EF had improved earlier this year placed on Dobutamine, making adequate urine, lungs clearing cardiology following poor overall prognosis h/o seven stents, none recently - Left upper lobe cavitary lesion, questionable right lower lobe infiltrate no evidence of mucous on bronchoscopy yesterday antibiotics stopped, placed on Voriconazole due to h/o Aspergillus bronchial lavage sent for culture, negative - Elevated troponin, NSTEMI type II demand ischemia due to tachycardia, respiratory distress, attempted electrocardioversion twice yesterday troponin peaked at 14, down to [address] Chaudhry, certainly left heart cath could be considered in the future, but patient would not be candidate for stenting, cannot tolerate DAPT due to nose bleeds - Worsening anemia, assumed blood loss, but still unclear etiology Protonix IV BID was heme positive stool in the ED transfused 4 units total, Hb 8.8 today - COPD: no evidence of exacerbation - DM with hyperglycemia insulin infusion, pharmacy management - H/o lung cancer had recent PET scan as outpatient, no evidence of recurrent disease per Dr. Poole, had isolated small cell lung CA, treated with chemotherapy and radiation no further work up at this time as he would not be a candidate for any type of treatment CAD: hx of IL and stents x7 Pt could not tolerate plavix (nosebleeds) and is on aspirin 81mg Holding for now given above Hyperlipidemia: continue home meds BPH: continue home meds Spent 35 minutes in management of patient, reviewing chart, discussing with consultants. Family at bedside, updated. Continued [facility] stay due to: other (acute care continues) Discharge planning: uncertain
[2018-06-01] VITALS (47 sets, daily range): BP systolic 105–179; BP diastolic 67–126; PULSE 78–158; TEMP 36.1; O2SAT 82–100
[2018-06-01] MEDS: METHYLPREDNISOLONE 30 MG in SYRINGE 0 ML IV SCH ×3 (00:07→22:17)
[2018-06-01] MEDS: INSULIN GLARGINE SOLOSTAR 100 UNITS/ML 3 ML PEN SC SCH ×3 (00:12→20:44)
[2018-06-01] MEDS: INSULIN ASPART 100 UNITS/ML 3 ML PEN SC SCH ×6 (03:51→20:44)
[2018-06-01 04:55] LABS: ALBUMIN 1.8 gm/dl (3.4-5.0); CALCIUM 8.5 mg/dl (8.5-10.1); CREATININE 1.1 mg/dl (0.60-1.40); PHOSPHORUS 2.3 mg/dl (2.5-4.9); TOTAL PROTEIN 6.6 gm/dl (6.4-8.2)
[2018-06-01] MEDS: HEPARIN SOD 5000 UNIT/0.5 ML CARP SQ SCH ×2 (06:19→17:03)
[2018-06-01] MEDS: FERROUS SULFATE 325 MG TAB PO SCH ×2 (08:33→16:20)
[2018-06-01] MEDS: PANTOprazole INJ 40 MG in SYRINGE 0 ML IV SCH (08:34)
[2018-06-01] MEDS: CEROVITE ADV FORMULA TAB PO SCH (08:34)
[2018-06-01] MEDS: ASPIRIN 81 MG CHEW PO SCH (08:34)
[2018-06-01] MEDS: BOOST GLUCOSE CONTROL VANILLA PO SCH ×3 (09:00→16:19)
[2018-06-01] MEDS: VORICONAZOLE IV SCH ×2 (10:49→22:23)
[2018-06-01] MEDS: SODIUM CHLORIDE 0.9% IV SCH ×2 (10:49→22:23)
--- NOTE | 2018-06-01 10:52 | Critical Care Progress Note ---
Critical Care Progress Note Date of Service Jun 01, 2018. ICU Day ICU Day Number: [address] Nick Objective General: Alert and oriented Skin: Warm, dry, Head: Atraumatic Ears, nose, mouth and throat: Airway patent Cardiovascular: Normal peripheral perfusion Respiratory: Coarse respirations Gastrointestinal: Non distended Musculoskeletal: No deformity Assessment & Plan Reason Critically Ill: 72-year-old male with possibly recurrent lung cancer who has hypoxic respiratory failure pneumonia. PLAN: Neuro: Past swallow study -PT OT consult Resp: Hypoxic respiratory failure: Improving -Liberated from mechanical ventilation May 30 -Fungal elements reported negative, aspergillus testing remains not reported -Scant normal cee from BAL, no growth and blood cultures -We will continue antifungal given improvement and awaiting formal aspergillus testings -At this point I anticipate IV treatment with 7 days and will consult with infectious disease regarding transition to oral dosing for possible 6-12 weeks -Holding statin secondary to transaminitis which I suspect is secondary to voriconazole CV: Hypotension: Resolved Possible cardiomyopathy -Continue aspirin, did not tolerate Plavix secondary to recurrent epistaxis Reduced EF heart failure, systolic -Trial of dobutamine: Discontinued Prolonged QTC: Improving -Discontinue Zofran -Repeat EKG today, optimize electrolytes Fluids/Renal: Hypophosphatemia -18 mmol K-Phos Start 400 mg Mag-Ox daily ID: Discontinue antibacterial 05/28 -Voriconazole for possible aspergillus -Send 1 3 fungitel,: Negative aspergillus panel: Pending -Reviewed outpatient records, last pulmonary note was placed on 12 day course of itraconazole GI/Nutrition: Encourage high-protein diet -2 bowel movements on May 31, 2018 Heme: Anemia -Heparin DVT prophylaxis Endocrine: Hyperglycemia: Improving -Pharmacy glycemic control consult Vascular access: Central line, arterial line: Discontinued May 30, 2018 Code Status: DO NOT RESUSCITATE, DO NOT INTUBATE in event of respiratory insufficiency Patient was discussed on multidisciplinary rounds I have personally spent 40 minutes of critical care time in the direct management of this patient. This is a life/limb threatening event. This includes time spent evaluating patient, direct bedside care, chart review, placing orders, interpretation of diagnostic studies, discussion with consultants, patient, and/or family members regarding treatment decisions, as well as other required patient management activities. This time is exclusive of all separately billable procedures, and teaching time and separate from and in addition to any other critical care service time. Consults & Procedures Consultants: Cardiology: Isidoro Infectious disease: Facundo Data Medications: Current Inpatient Medications Medications (Trade) Dose Ordered Sig/Vianey Route Start Time Stop Time Status Last Admin Dose Admin Acetaminophen (Tylenol Tab) 650 mg Q4H PRN PO 05/26/18 15:00 06/25/18 14:59 05/27/18 05:18 650 MG Magnesium Hydroxide (Milk Of Magnesia Susp) 30 ml Q6H PRN PO 05/26/18 15:00 06/25/18 14:59 Glucose (Glucose 40% Gel) 15-30 GRAMS 15 GRAMS... UD PRN PO 05/26/18 15:00 06/25/18 14:59 Glucose (Glucose Chew Tab) 4-8 Tablets 4 Tabl... UD PRN PO 05/26/18 15:00 06/25/18 14:59 Dextrose (Dextrose 50% 50ML Syringe) 25-50ML 25ML FOR ... UD PRN IV 05/26/18 15:00 06/25/18 14:59 05/27/18 21:44 25 ML Glucagon (Glucagon Inj) 1 mg UD PRN SQ 05/26/18 15:00 06/25/18 14:59 Carbohydrates (Carbohydrates For Hypoglycemia) 15-30 GRAMS 15 grams if BSG 54-69... UD PRN PO 05/26/18 15:00 06/25/18 14:59 Finasteride (Proscar Tab) 5 mg QAM PO 05/27/18 08:00 06/26/18 08:59 Future Hold 05/28/18 10:21 5 MG Simvastatin (Zocor Tab) 40 mg QPM PO 05/26/18 21:00 06/25/18 20:59 Future Hold 05/31/18 21:36 40 MG Heparin Sodium (Porcine) (Heparin 100 Unit/ml 5ml Flush) 5 ml PRN PRN IV 05/27/18 01:30 06/26/18 01:29 05/31/18 12:10 5 ML Aspirin (Aspirin Chew) 81 mg DAILY PO 05/28/18 09:00 06/27/18 08:59 06/01/18 08:34 81 MG Pantoprazole Sodium 40 mg/ Syringe 10 ml @ 5 mls/min DAILY@ IV 05/27/18 21:00 06/26/18 20:59 06/01/18 08:34 5 MLS/MIN Miscellaneous Information (Consult Glycemic Management Pharmacy) 1 ea UD PRN N/A 05/27/18 15:14 06/26/18 15:13 Heparin Sodium (Porcine) (Heparin 10 Unit/ ml 5 ml Flush) 5 ml PRN PRN FLUSH 05/28/18 00:15 06/27/18 00:14 Voriconazole 230 mg/Sodium Chloride 100 ml @ 75 mls/hr Q12H IV 05/29/18 10:00 06/03/18 23:19 Future hold 06/01/18 10:49 75 MLS/HR Heparin Sodium (Porcine) (Heparin Sq 5000 Unit/0.5ml) 5,000 unit Q12H SQ 05/30/18 06:00 06/29/18 05:59 06/01/18 06:19 5,000 UNIT Methylprednisolone Sodium Succinate 30 mg/Syringe 0.48 ml @ 1.5 mls/min Q12H IV 05/30/18 12:00 06/29/18 11:59 06/01/18 00:07 1.5 MLS/MIN Levalbuterol (Xopenex 1.25MG/ 3ML Neb) 1.25 mg Q4R PRN INH 05/30/18 10:45 06/29/18 10:44 Insulin Aspart (novoLOG ASPART) SLIDING SCALE Q4 SC 05/30/18 20:00 06/29/18 19:59 06/01/18 08:32 8 UNITS Insulin Glargine (Lantus Solostar Pen) See Protocol Text BID SC 05/31/18 09:00 06/30/18 08:59 Future hold 06/01/18 00:12 6 UNITS Ferrous Sulfate (Feosol Tab) 325 mg BIDM PO 05/31/18 07:15 06/30/18 07:14 06/01/18 08:33 325 MG Multivitamins/ Minerals (Multivitamin W/ Minerals Tab) 1 tab QAM PO 05/31/18 09:00 06/30/18 08:59 06/01/18 08:34 1 TAB Voriconazole (Vfend Tab) 200 mg BID PO 06/04/18 09:00 08/19/18 21:01 Enteral Nutritional Formula (Boost Glucose Control) 1 can TID PO 05/31/18 21:00 06/30/18 20:59 Vital Signs: Date Time Temp Pulse Resp B/P (MAP) Pulse Ox O2 Delivery O2 Flow Rate FiO2 06/01/18 10:00 112 17 138/87 (104) 90 Nasal Cannula 6.0 06/01/18 08:05 92 Nasal Cannula 4.0 06/01/18 08:00 Nasal Cannula 4.0 06/01/18 08:00 105 15 117/80 (92) 89 Nasal Cannula 3.0 06/01/18 06:01 91 25 135/86 (102) 93 2.0 06/01/18 05:01 93 26 127/78 (94) 90 2.0 06/01/18 04:01 87 23 120/74 (89) 92 Nasal Cannula 2.0 06/01/18 03:01 87 22 109/67 (81) 90 Nasal Cannula 2.0 06/01/18 02:00 90 20 118/72 (87) 91 Nasal Cannula 2.0 06/01/18 01:01 83 13 105/69 (81) 89 Nasal Cannula 2.0 06/01/18 00:05 78 17 118/70 (86) 88 Nasal Cannula 2.0 05/31/18 23:01 86 15 116/68 (84) 90 Nasal Cannula 2.0 05/31/18 22:01 36.5 86 23 115/61 (79) 89 Nasal Cannula 1.0 05/31/18 21:01 85 27 125/72 (89) 91 Nasal Cannula 1.0 05/31/18 20:04 79 20 116/68 (84) Nasal Cannula 1.0 05/31/18 20:00 Nasal Cannula 2.0 05/31/18 18:00 82 15 114/71 (85) 93 Nasal Cannula 1.0 05/31/18 16:28 85 25 129/69 (89) 91 Nasal Cannula 2.0 05/31/18 16:00 36.4 81 22 119/80 (93) 92 Nasal Cannula 2.0 05/31/18 15:00 86 30 112/72 (85) 92 Nasal Cannula 2.0 05/31/18 14:00 73 25 120/79 (93) 96 Nasal Cannula 2.0 05/31/18 13:00 78 23 121/76 (91) 97 Nasal Cannula 2.0 05/31/18 12:00 36.4 78 29 123/77 (92) 99 Nasal Cannula 2.0 Laboratory Results: Last 24 Hours Test 05/31/18 12:15 05/31/18 16:17 05/31/18 20:11 05/31/18 23:03 Bedside Glucose 212 mg/dl 161 mg/dl 109 mg/dl 137 mg/dl Test 06/01/18 03:48 06/01/18 04:06 06/01/18 07:28 Bedside Glucose 100 mg/dl 108 mg/dl Activated Partial Thromboplast Time 31.0 SECONDS Partial Thromboplastin Ratio 1.2 Sodium Level 143 mmol/L Potassium Level 4.0 mmol/L Chloride Level 113 mmol/L Carbon Dioxide Level 24 mmol/L Anion Gap 6.0 mmol/L Blood Urea Nitrogen 31 mg/dl Creatinine 1.10 mg/dl Est Creatinine Clear Calc Drug Dose 51.8 ml/min Estimated GFR () 76.2 Estimated GFR (Non- 65.8 BUN/Creatinine Ratio 28.5 Random Glucose 86 mg/dl Calcium Level 8.5 mg/dl Phosphorus Level 2.3 mg/dl Magnesium Level 2.1 mg/dl Total Bilirubin 0.3 mg/dl Direct Bilirubin 0.1 mg/dl Aspartate Amino Transf (AST/SGOT) 56 U/L Alanine Aminotransferase (ALT/SGPT) 260 U/L Alkaline Phosphatase 116 U/L Total Protein 6.6 gm/dl Albumin 1.8 gm/dl
--- NOTE | 2018-06-01 10:55 | SURGERY PROGRESS NOTE ---
DATE: 06/01/2018 Mr. Aden is improving. He got down to 1 L of O2 yesterday, and he is now up to 4, but he is more active. His albumin is only 1.8, which is contributing to the problem that we are seeing now. We still have not grown anything out from his pleural fluid, and we do not see evidence of aspergillosis on his bronchospasms. At this point, I would hold off offering an endobronchial stent even if we have one. My hope is he will continue to respond to medical management and get over the pneumonic process in both lungs.
[2018-06-01] MEDS ORDERED: POTASSIUM PHOSPHATE INJ 18 MMOL in SODIUM CHLORIDE 0.9% 500ML 500 ML IV ONE (11:15)
[2018-06-01] MEDS ORDERED: INSULIN GLARGINE SOLOSTAR 100 UNITS/ML 3 ML PEN SC ONE (12:30)
[2018-06-01] MEDS ORDERED: FUROSEMIDE 10 MG/ML 10 ML VIAL ONE (12:47)
[2018-06-01] MEDS ORDERED: MoRPHine SULFATE 2 MG/ML CARP ONE ×2 (12:51→13:27)
--- NOTE | 2018-06-01 13:03 | Pharmacy Progress Note ---
Pharmacy Glycemic Short Note 2 Date of Service Jun 01, 2018. OUTPATIENT ANTIDIABETIC REGIMEN: * Metformin 1gm PO BID * Glipizide ER 2.5mg PO BID * A1c = 6.7% Test 05/31/18 16:17 05/31/18 20:11 05/31/18 23:03 06/01/18 03:48 Bedside Glucose 161 mg/dl (70-99) 109 mg/dl (70-99) 137 mg/dl (70-99) 100 mg/dl (70-99) Test 06/01/18 04:06 06/01/18 07:28 06/01/18 11:35 Random Glucose 86 mg/dl (70-99) Bedside Glucose 108 mg/dl (70-99) 263 mg/dl (70-99) ASSESSMENT: 06/01/18 * Glycemic control has improved over the last 24 hours * Pre-lunch BSG elevated due to pt consuming Boost before Accuchek * Fasting BSG 86-108 this AM w/ 26 units of Lantus on board; will adjust scale to allow for slightly lesser doses * Lantus held this AM secondary to lower BSG, will give supplemental dose w/ lunch now that BSG on the rise * CF and CR will be adjusted as well to allow for slightly lesser doses for next 24 hrs * Retimed supplements to avoid giving Boost just before checking a BSG as this can lead to inappropriate use of correctional insulin and hypoglycemia 05/31/18 * Patient transitioned off insulin drip last evening * BSGs did begin to climb after drip was discontinued, leading me to believe the patient's basal needs are higher than what was given. Currently has 20 units of basal on board this AM. Will increase basal dose * Correctional insulin dose increase over-night for rising BSGs. Will increase this dose further today as pt likely to eat soon and steroids continue. This should help us catch up on insulin deficiency 05/30/18 * Glycemic control did deteriorate yesterday w/ the addition of IV steroids and cont tube feeds * Goals not met with drip over last 24 hrs as drip rates were quite low prior to the above changes. This resulted in very small incremental drip increases over a prolonged period of time despite rising BSGs. An off protocol rate increase would have worked better in retrospect. * New changes today: extubated, tube feeds stopped, remains NPO, dobutamine off , heparin gtt mixed in dextrose also stopped: all factors that should decrease insulin needs * Hydrocortisone IV d/c'd and changed to Solu-medrol today, however the Solu- Medrol dose will result in greater glucocorticoid provision and may lead to increased insulin needs * Will attempted to transition to a SQ regimen slowly over the course of the day today. Doses will be based on moderate-severe stress of illness and weight. 05/29/18 * Hyperglycemia worsened mid-day yesterday, possibly due to addition of Dobutamine infusion + Heparin drip mixed in D5W * BSGs did return to goal as the insulin drip was titrated * This AM, Norepi was weaned off and Dobutamine is also being weaned down. Heparin drip will also be cut later today. * Pt on CPAP trial for possible extubation * Hydrocortisone IV added due to random cortisol less than 15 and need for pressor support. This will likely lead to increased insulin resistance. * Tube feeds being started today, 10cc/hr "trickle" Peptamen has been ordered * Given multiple increasing and decreasing stressors, paired with deterioration in glycemic control yesterday - will continue IV insulin drip for now until effects of these changes are evident on insulin resistance and glycemic control. 05/28/18 * Type 2 diabetic admitted anemia and hypoxemic respiratory failure, pneumonia suspected based upon CXR, pulmonary edema seen on bronchoscopy * Pt remains intubated, requiring continuous infusions of fentanyl/midazolam for sedation, norepi infusion for pressure support and dobutamine being added today for low EF, likely element of cardiogenic shock. Troponin on the rise, NSTEMI suspected * IV insulin infusion per protocol started yesterday for severe hyperglycemia * BSGs down to goal range overnight * Insulin gtt infusing at 0.5unit/hr this AM * Given multiple significant stressors, including IV pressor use would recommend continuing w/ IV insulin infusion due ease of titration and inconsistent SQ absorption while hypotensive and on pressors. PLAN FOR INPATIENT GLYCEMIC CONTROL: * Lantus 12 units SQ x 1 with lunch * Lantus SQ BID per the following scale: (dose increase) * BSG less than 120: hold * BSG 120-140: 5 units * BSG 141-180: 10 units * BSG above 180: 14 units * Novolog SQ * ACHS and at 0200 * Goal 120 - 160 mg/dL * Correction factor: 25mg/dL/unit (dose increase) * Carb ratio: 1 unit per 9 gm CHO consumed (no change) PLAN FOR DISCHARGE: * to be determined
--- NOTE | 2018-06-01 13:14 | Critical Care Progress Note ---
Critical Care Progress Note Date of Service Jun 01, 2018. Critical Care Progress Note Subjective: Called to bedside for acute respiratory decompensation, no chest pain, patient complained of inability to breathe Objective: Obvious respiratory distress, audible rails, rapid bedside ultrasound bilateral pulmonary edema through all lung watts Impression and plan: Patient was given 3 doses of sublingual nitro all for diastolic and systolic blood pressures 170/110 or greater, started on noninvasive mechanical ventilation CPAP at 10, given 60 mg IV Lasix 1, placing Dawson, 1 mg IV morphine for air hunger 2 I have personally spent 30 minutes of critical care time in the direct management of this patient. This is a life/limb threatening event. This includes time spent evaluating patient, direct bedside care, chart review, placing orders, interpretation of diagnostic studies, discussion with consultants, patient, and/or family members regarding treatment decisions, as well as other required patient management activities. This time is exclusive of all separately billable procedures, and teaching time and separate from and in addition to any other critical care service time.
[2018-06-01] MEDS ORDERED: NITROGLYCERIN/D5W 100 MCG/ML 250 ML IV PRN ×3 (13:33→14:00)
[2018-06-01] MEDS ORDERED: HydrALAZINE 10 MG TAB PO STA (13:34)
--- NOTE | 2018-06-01 13:40 | DIAGNOSTIC IMAGING REPORT ---
CHEST ONE VIEW PORTABLE CLINICAL HISTORY: 72 years-old Male presenting with hypoxia. TECHNIQUE: Portable upright AP view of the chest was obtained. COMPARISON: 05/30/2018. FINDINGS: Removal of the endotracheal tube, nasogastric tube, and right internal jugular central venous catheter. Left subclavian Mediport terminates in the lower SVC. Atherosclerosis of the aortic arch. Chronic silhouette mildly enlarged. Dense opacity in the left upper and mid lung unchanged. Right mid and lower lung density has increased. Interval development of a small right pleural effusion. Left apical loculated pleural effusion suspected. Osseous structures normal. IMPRESSION: 1. Interval extubation and removal of additional lines and tubes. 2. Interval worsening of right lung infiltrates with persistent left lung infiltrates. This is consistent with worsening multifocal pneumonia. 3. Bilateral pleural effusions increased on the right. Electronically signed by: Jeffrey Frances M.D. 06/01/2018 1:39 PM Dictated Date/Time: 06/01/2018 1:36 PM
[2018-06-01] MEDS: NITROGLYCERIN/D5W 100 MCG/ML IV PRN ×2 (14:01→21:17)
[2018-06-01] MEDS ORDERED: NURSING VERBAL MED ORDER ONE (15:00)
[2018-06-01] MEDS ORDERED: NITROGLYCERIN 0.4 MG SL PER TAB CHARGE SL SCH (15:00)
[2018-06-01] MEDS ORDERED: NURSING VERBAL MED ORDER STA (16:52)
[2018-06-01] MEDS ORDERED: METOPROLOL TARTRATE 1 MG/ML VIAL IV ONE (17:00)
--- NOTE | 2018-06-01 17:25 | Cardiology Follow-Up ---
Subjective Date of Service: Jun 01, 2018. Pt evaluation today including: conversation w/ patient, conversation w/ family , physical exam, chart review, lab review, review of studies, review of inpatient medication list History of Present Illness Patient appears to have become progressively more short of breath and tachycardia throughout the course of the afternoon. At the present time he had some difficulty speaking due to dyspnea. He did report however that it feels as though he has" sandpaper" in his lungs. Social History Smoking Status: Former Smoker History of Alcohol Use: No Review of Systems Respiratory: + cough, + sputum Cardiac: No chest pain He had too much dyspnea to describe additional complaints Objective Vital Signs Past 12 Hours Date Time Temp Pulse Resp B/P (MAP) Pulse Ox O2 Delivery O2 Flow Rate FiO2 06/01/18 17:02 139 139/96 06/01/18 16:00 136 40 147/91 (109) 93 CPAP 70 06/01/18 16:00 CPAP 70 06/01/18 15:36 141 93 70 06/01/18 13:56 144 40 162/111 (128) 95 CPAP 70 06/01/18 13:51 144 37 150/118 (129) 96 CPAP 70 06/01/18 13:46 145 41 162/104 (123) 100 CPAP 70 06/01/18 13:26 145 35 164/115 (131) 95 CPAP 70 06/01/18 13:21 147 44 168/124 (139) 95 CPAP 70 06/01/18 13:16 151 39 178/115 (136) 97 CPAP 70 06/01/18 13:11 155 31 170/110 (130) 95 CPAP 70 06/01/18 13:06 151 34 168/114 (132) 96 CPAP 70 06/01/18 13:03 158 98 70 06/01/18 13:01 153 45 165/120 (135) 96 CPAP 70 06/01/18 13:00 152 45 95 CPAP 70 06/01/18 12:58 157 58 173/120 (137) 96 Oxymask 10.0 06/01/18 12:55 154 38 176/118 (137) 89 Oxymask 10.0 06/01/18 12:52 142 29 169/126 (140) 82 Oxymask 10.0 06/01/18 12:50 142 24 174/119 (137) 83 Oxymask 10.0 06/01/18 12:49 147 40 179/124 (142) 84 Oxymask 10.0 06/01/18 12:45 141 22 169/112 (131) 82 Oxymask 10.0 06/01/18 12:34 143 25 175/124 (141) 88 6.0 06/01/18 10:00 112 17 138/87 (104) 90 Nasal Cannula 6.0 06/01/18 08:05 92 Nasal Cannula 4.0 06/01/18 08:00 Nasal Cannula 06/01/18 08:00 Nasal Cannula 4.0 06/01/18 08:00 105 15 117/80 (92) 89 Nasal Cannula 3.0 06/01/18 06:01 91 25 135/86 (102) 93 2.0 Last Recorded Weight-Kilograms: 62.100 Intake & Output 8-Hour Column 06/01/18 06/02/18 06/02/18 16:00 00:00 08:00 Intake Total 964 ml Output Total 220 ml Balance 744 ml 24-Hour Column 06/02/18 08:00 Intake Total 964 ml Output Total 220 ml Balance 744 ml Physical Exam Patient was alert but appears very weak and dyspneic HEENT: Pupils are equal Neck: Patient's neck is supple. Lungs: Coarse upper airway congestion and some bronchial breath sounds. Cardiac: Heart demonstrates a regular rate and rhythm. He was tachycardic. Normal S1 and S2. No murmurs on examination. Pulses: The patient has palpable radial pulses bilaterally that are equal in intensity. Extremities: There was no evidence of hypoperfusion. There is no cyanosis or clubbing. There is no edema. Skin: I did not appreciate any rashes on examination today. Data Laboratory Results: Last 24 Hours Test 05/31/18 20:11 05/31/18 23:03 06/01/18 03:48 06/01/18 04:06 Bedside Glucose 109 mg/dl 137 mg/dl 100 mg/dl Activated Partial Thromboplast Time 31.0 SECONDS Partial Thromboplastin Ratio 1.2 Sodium Level 143 mmol/L Potassium Level 4.0 mmol/L Chloride Level 113 mmol/L Carbon Dioxide Level 24 mmol/L Anion Gap 6.0 mmol/L Blood Urea Nitrogen 31 mg/dl Creatinine 1.10 mg/dl Est Creatinine Clear Calc Drug Dose 51.8 ml/min Estimated GFR () 76.2 Estimated GFR (Non- 65.8 BUN/Creatinine Ratio 28.5 Random Glucose 86 mg/dl Calcium Level 8.5 mg/dl Phosphorus Level 2.3 mg/dl Magnesium Level 2.1 mg/dl Total Bilirubin 0.3 mg/dl Direct Bilirubin 0.1 mg/dl Aspartate Amino Transf (AST/SGOT) 56 U/L Alanine Aminotransferase (ALT/SGPT) 260 U/L Alkaline Phosphatase 116 U/L Total Protein 6.6 gm/dl Albumin 1.8 gm/dl Test 06/01/18 07:28 06/01/18 11:35 06/01/18 16:04 Bedside Glucose 108 mg/dl 263 mg/dl 291 mg/dl Imaging: X-ray demonstrating worsening pneumonia EKG: Sinus tachycardia Telemetry reviewed: Progressive sinus tachycardia Assessment and Plan 1. Acute decompensated left ventricular systolic failure: His respiratory status is progressively worsening. It is certainly possible that this represents recurrent pulmonary edema. This could easily be confused with worsening pneumonia. The patient was started on nitroglycerin infusion and administered Lasix earlier. I would agree with these interventions and certainly be in favor aggressive diuresis given his prior presentation. 2. Ischemic cardiomyopathy: Patient is currently on a nitroglycerin infusion. He has been hemodynamically stable over the past couple of days in the hopes that we can reinitiate his standard regimen for LV systolic dysfunction, but his clinical condition is deteriorating and this does not seem to be the appropriate time for re-initiation of anti hypertensives.. It is unclear if he will improve over the course of the evening. 3. Dyspnea: Possibly pneumonia, possibly has underlying lung disease, possibly pulmonary edema. He did present with significant anemia and may be reasonable to repeat a CBC.
[2018-06-01] MEDS ORDERED: POTASSIUM CHLORIDE 20 MEQ TABCR PO STA (18:11)
[2018-06-01] MEDS ORDERED: POT PHOSPHATE MONOBASIC W/ SOD TAB PO ONE (18:15)
[2018-06-01] MEDS ORDERED: METOPROLOL TARTRATE 1 MG/ML VIAL IV PRN (18:15)
[2018-06-01] MEDS ORDERED: FUROSEMIDE INJ 40 MG in SYRINGE 0 ML IV ONE (18:30)
[2018-06-01] MEDS: MoRPHine SULFATE 2 MG/ML CARP IV PRN ×2 (19:56→22:18)
[2018-06-01] MEDS: PANTOprazole SOD 40 MG TAB PO SCH (20:43)
[2018-06-01 22:48] LABS: CALCIUM 8.7 mg/dl (8.5-10.1); CREATININE 1.48 mg/dl (0.60-1.40); PHOSPHORUS 5.9 mg/dl (2.5-4.9); POTASSIUM 4.7 mmol/L (3.5-5.1)
--- NOTE | 2018-06-01 22:49 | Progress Note ---
Subjective Date of Service: Jun 01, 2018. Subjective Pt evaluation today including: conversation w/ patient, physical exam Patient was examined in the afternoon. Patient was found to be very short of breath, and tachycardic. Dr. Nick was in the room and discussing the plan with the family. Patient did not provide signifcant history Problem List Medical Problems: (1) Acute bronchitis Status: Acute (2) GHANSHYAM (acute kidney injury) Status: Acute (3) Enlarged prostate Status: Chronic (4) Epistaxis Status: Acute (5) Exertional dyspnea Status: Acute (6) Hx of cancer of lung Status: Acute (7) Hyperkalemia Status: Acute (8) Hyponatremia Status: Acute (9) Leukocytosis Status: Acute (10) Leukocytosis Status: Acute (11) Lung cancer Status: Acute (12) Multifocal pneumonia Status: Acute (13) Necrotizing pneumonia Status: Acute (14) Pneumonia Status: Acute (15) Sepsis Status: Acute (16) Sepsis Status: Acute (17) SOB (shortness of breath) Status: Acute (18) Stabbing chest pain Status: Acute (19) Substernal chest pain Status: Acute Review of Systems unable to fully obtain ROS. Objective Vital Signs Date Time Temp Pulse Resp B/P (MAP) Pulse Ox O2 Delivery O2 Flow Rate FiO2 06/01/18 22:25 107 99 70 06/01/18 22:02 106 25 113/87 (98) 95 06/01/18 21:57 102 37 110/72 (87) 99 06/01/18 21:17 127 124/79 06/01/18 21:00 127 32 124/79 (86) 97 06/01/18 20:31 124 36 130/81 (86) 97 06/01/18 20:27 125 96 70 06/01/18 20:01 129 35 131/82 (98) 97 06/01/18 20:00 95 CPAP 10.0 70 06/01/18 20:00 36.1 06/01/18 19:45 123 36 131/87 (95) 97 06/01/18 19:31 125 35 131/87 (95) 96 06/01/18 19:10 127 27 129/84 (97) 92 06/01/18 19:06 121 40 130/90 (108) 96 06/01/18 19:01 117 38 123/83 (88) 95 18 18:15 115 34 132/77 (95) 95 CPAP 70 18 17:02 139 139/96 06/01/18 16:00 136 40 147/91 (109) 93 CPAP 70 18 16:00 CPAP 70 18 15:36 141 93 70 18 13:56 144 40 162/111 (128) 95 CPAP 70 06/01/18 13:51 144 37 150/118 (129) 96 CPAP 70 18 13:46 145 41 162/104 (123) 100 CPAP 70 06/01/18 13:26 145 35 164/115 (131) 95 CPAP 70 06/01/18 13:21 147 44 168/124 (139) 95 CPAP 70 06/01/18 13:16 151 39 178/115 (136) 97 CPAP 70 06/01/18 13:11 155 31 170/110 (130) 95 CPAP 70 06/01/18 13:06 151 34 168/114 (132) 96 CPAP 70 06/01/18 13:03 158 98 70 06/01/18 13:01 153 45 165/120 (135) 96 CPAP 70 06/01/18 13:00 152 45 95 CPAP 70 18 12:58 157 58 173/120 (137) 96 Oxymask 10.0 06/01/18 12:55 154 38 176/118 (137) 89 Oxymask 10.0 06/01/18 12:52 142 29 169/126 (140) 82 Oxymask 10.0 06/01/18 12:50 142 24 174/119 (137) 83 Oxymask 10.0 06/01/18 12:49 147 40 179/124 (142) 84 Oxymask 10.0 06/01/18 12:45 141 22 169/112 (131) 82 Oxymask 10.0 06/01/18 12:34 143 25 175/124 (141) 88 6.0 06/01/18 10:00 112 17 138/87 (104) 90 Nasal Cannula 6.0 06/01/18 08:05 92 Nasal Cannula 4.0 06/01/18 08:00 Nasal Cannula 06/01/18 08:00 Nasal Cannula 4.0 06/01/18 08:00 105 15 117/80 (92) 89 Nasal Cannula 3.0 06/01/18 06:01 91 25 135/86 (102) 93 2.0 06/01/18 05:01 93 26 127/78 (94) 90 2.0 06/01/18 04:01 87 23 120/74 (89) 92 Nasal Cannula 2.0 06/01/18 03:01 87 22 109/67 (81) 90 Nasal Cannula 2.0 06/01/18 02:00 90 20 118/72 (87) 91 Nasal Cannula 2.0 06/01/18 01:01 83 13 105/69 (81) 89 Nasal Cannula 2.0 06/01/18 00:05 78 17 118/70 (86) 88 Nasal Cannula 2.0 05/31/18 23:01 86 15 116/68 (84) 90 Nasal Cannula 2.0 Physical Exam Comments: General Appearance: no apparent distress, + thin, in moderate distress, Neck: supple, no adenopathy, no JVD, trachea midline Respiratory/Chest: no respiratory distress, + accessory muscle use, + decreased breath sounds, rhonchi and rales in lower lung watts. Cardiovascular: no edema, no gallop, no JVD, no murmur, tachycardic in the 140s Abdomen: normal bowel sounds, non tender, soft, no organomegaly Extremities: normal inspection, no pedal edema, no calf tenderness, normal capillary refill, pelvis stable Neurologic/Psychiatric: lethargic Skin: normal color, warm/dry, no rash Laboratory Results Last 24 Hours Test 05/31/18 23:03 06/01/18 03:48 06/01/18 04:06 06/01/18 07:28 Bedside Glucose 137 mg/dl 100 mg/dl 108 mg/dl Activated Partial Thromboplast Time 31.0 SECONDS Partial Thromboplastin Ratio 1.2 Sodium Level 143 mmol/L Potassium Level 4.0 mmol/L Chloride Level 113 mmol/L Carbon Dioxide Level 24 mmol/L Anion Gap 6.0 mmol/L Blood Urea Nitrogen 31 mg/dl Creatinine 1.10 mg/dl Est Creatinine Clear Calc Drug Dose 51.8 ml/min Estimated GFR () 76.2 Estimated GFR (Non- 65.8 BUN/Creatinine Ratio 28.5 Random Glucose 86 mg/dl Calcium Level 8.5 mg/dl Phosphorus Level 2.3 mg/dl Magnesium Level 2.1 mg/dl Total Bilirubin 0.3 mg/dl Direct Bilirubin 0.1 mg/dl Aspartate Amino Transf (AST/SGOT) 56 U/L Alanine Aminotransferase (ALT/SGPT) 260 U/L Alkaline Phosphatase 116 U/L Total Protein 6.6 gm/dl Albumin 1.8 gm/dl Test 06/01/18 11:35 06/01/18 16:04 06/01/18 20:41 06/01/18 22:20 Bedside Glucose 263 mg/dl 291 mg/dl 165 mg/dl Sodium Level 144 mmol/L Potassium Level 4.7 mmol/L Chloride Level 110 mmol/L Carbon Dioxide Level 26 mmol/L Anion Gap 8.0 mmol/L Blood Urea Nitrogen 43 mg/dl Creatinine 1.48 mg/dl Est Creatinine Clear Calc Drug Dose 38.5 ml/min Estimated GFR () 53.3 Estimated GFR (Non- 46.0 BUN/Creatinine Ratio 29.1 Random Glucose 102 mg/dl Calcium Level 8.7 mg/dl Phosphorus Level 5.9 mg/dl Magnesium Level 2.1 mg/dl Assessment and Plan 72 y/o M who was admitted on 05/26 with PNA and COPD exacerbation - Acute hypoxic respiratory failure, respiratory distress, due to pulmonary edema, acute heart failure intubated on 05/27 emergently Extubated on 05/30 Patient however is doing poorly today after having a great day yesterday. Patient may need to be reintubated, however, will try non invasive measures first. management per ICU information manager prognosis remains poor. - Acute systolic heart failure, acute decompensation EF low at 15-20% h/o ischemic cardiomyopathy, h/o low EF in the s but most recent EF had improved earlier this year placed on Dobutamine, making adequate urine, lungs clearing cardiology following poor overall prognosis h/o seven stents, none recently - Left upper lobe cavitary lesion, questionable right lower lobe infiltrate no evidence of mucous on bronchoscopy yesterday antibiotics stopped, placed on Voriconazole due to h/o Aspergillus bronchial lavage sent for culture, negative - Elevated troponin, NSTEMI type II demand ischemia due to tachycardia, respiratory distress, attempted electrocardioversion twice yesterday troponin peaked at 14, down to [address] Chaudhry, certainly left heart cath could be considered in the future, but patient would not be candidate for stenting, cannot tolerate DAPT due to nose bleeds - Worsening anemia, assumed blood loss, but still unclear etiology Protonix IV BID was heme positive stool in the ED transfused 4 units total, Hb 8.8 yesterday - COPD: no evidence of exacerbation - DM with hyperglycemia insulin infusion, pharmacy management - H/o lung cancer had recent PET scan as outpatient, no evidence of recurrent disease per Dr. Poole, had isolated small cell lung CA, treated with chemotherapy and radiation no further work up at this time as he would not be a candidate for any type of treatment CAD: hx of MT and stents x7 Pt could not tolerate plavix (nosebleeds) and is on aspirin 81mg Holding for now given above Hyperlipidemia: continue home meds BPH: continue home meds Spent 35 minutes in management of patient, reviewing chart, discussing with consultants. Family at bedside, updated. Continued [facility] stay due to: other (acute care continues) Discharge planning: uncertain
[2018-06-02] VITALS (23 sets, daily range): BP systolic 87–141; BP diastolic 65–96; PULSE 67–115; TEMP 36–36.3; O2SAT 88–100
[2018-06-02] MEDS: METOPROLOL TARTRATE 1 MG/ML VIAL IV. SCH ×2 (00:03→05:34)
[2018-06-02] MEDS ORDERED: INSULIN ASPART 100 UNITS/ML 3 ML PEN SC SCH (02:00)
[2018-06-02] MEDS: DEXTROSE 50% 50 ML SYR IV PRN ×3 (02:11→08:19)
[2018-06-02] MEDS: MoRPHine SULFATE 2 MG/ML CARP IV PRN (02:36)
[2018-06-02] MEDS: LORAZEPAM 2 MG/ML 1 ML VIAL IV PRN ×2 (03:56→20:35)
[2018-06-02 04:54] LABS: HEMATOCRIT 32.5 % (42-52); MEAN CELL VOLUME 85.1 fL (80-100); MEAN CORPUSCULAR HEMOGLOBIN 26.2 pg (25-34); MEAN CORPUSCULAR HGB CONC 30.8 g/dl (32-36); MEAN PLATELET VOLUME 9.6 fL (7.4-10.4); PLATELET COUNT 429 K/uL (130-400); RED CELL DISTRIBUTION WIDTH CV 19.5 % (11.5-14.5); RED CELL DISTRIBUTION WIDTH SD 61.3 fL (36.4-46.3); WHITE BLOOD COUNT 22.09 K/uL (4.8-10.8)
[2018-06-02 05:29] LABS: CALCIUM 8.3 mg/dl (8.5-10.1); CREATININE 1.37 mg/dl (0.60-1.40); PHOSPHORUS 4.6 mg/dl (2.5-4.9); POTASSIUM 4.4 mmol/L (3.5-5.1)
[2018-06-02] MEDS: HEPARIN SOD 5000 UNIT/0.5 ML CARP SQ SCH ×2 (05:34→18:03)
[2018-06-02] MEDS: INSULIN ASPART 100 UNITS/ML 3 ML PEN SC SCH ×4 (06:45→20:34)
[2018-06-02] MEDS: MAGNESIUM OXIDE 400 MG TAB PO SCH (08:01)
[2018-06-02] MEDS: PANTOprazole SOD 40 MG TAB PO SCH ×2 (08:01→20:35)
[2018-06-02] MEDS: FERROUS SULFATE 325 MG TAB PO SCH ×2 (08:01→16:06)
[2018-06-02] MEDS: CEROVITE ADV FORMULA TAB PO SCH (08:01)
[2018-06-02] MEDS: ASPIRIN 81 MG CHEW PO SCH (08:01)
[2018-06-02] MEDS: BOOST GLUCOSE CONTROL VANILLA PO SCH ×3 (08:04→16:07)
--- NOTE | 2018-06-02 08:20 | Critical Care Progress Note ---
Critical Care Progress Note Date of Service Jun 02, 2018. ICU Day ICU Day Number: [address] Nick Subjective Feels slightly better compared to yesterday during bouts of pulmonary edema. Had relatively okay sleep. Still coughing up dark sputum. Positive exertional dyspnea Objective General: Alert and oriented Skin: Warm, dry, Head: Atraumatic Ears, nose, mouth and throat: Airway patent, coughing up mucus Cardiovascular: Normal peripheral perfusion Respiratory: Coarse respirations, bilaterally Gastrointestinal: Non distended Musculoskeletal: No deformity Assessment & Plan Reason Critically Ill: 72-year-old male with possibly recurrent lung cancer who has hypoxic respiratory failure pneumonia. PLAN: Neuro: Passed swallow study -PT OT consult Resp: Hypoxic respiratory failure: Improving -Liberated from mechanical ventilation May 30 -Fungal elements reported negative, aspergillus testing remains not reported -Scant normal cee from BAL, no growth and blood cultures -We will continue antifungal given improvement and awaiting formal aspergillus testings -At this point I anticipate IV treatment with 7 days and will consult with infectious disease regarding transition to oral dosing for possible 6-12 weeks -Holding statin secondary to transaminitis which I suspect is secondary to voriconazole -Day 5 of 7 IV then plan transition to oral CV: Hypotension: Resolved Possible cardiomyopathy -Continue aspirin, did not tolerate Plavix secondary to recurrent epistaxis Reduced EF heart failure, systolic -Trial of dobutamine: Discontinued Flash pulmonary edema: Improving -Aggressive diuresis, 600 ML's negative yesterday Tachycardia and hypertension: Improved -Starting heart failure medications to include beta-veronica and ELLI Prolonged QTC: Improved -Discontinue Zofran -Repeat EKG today, optimize electrolytes Fluids/Renal: Hypernatremia -Careful diuresis: Stopped daily Lasix -Chlorthalidone 25 mg ID: Discontinue antibacterial 05/28 -Voriconazole for possible aspergillus -Send 1 3 fungitel,: Negative aspergillus panel: Pending -Reviewed outpatient records, last pulmonary note was placed on 12 day course of itraconazole GI/Nutrition: Encourage high-protein diet -2 bowel movements on May 31, 2018 Heme: Anemia -Heparin DVT prophylaxis Endocrine: Hyperglycemia: Improving -Pharmacy glycemic control consult Vascular access: Central line, arterial line: Discontinued May 30, 2018 Code Status: DO NOT RESUSCITATE, DO NOT INTUBATE in event of respiratory insufficiency, this was confirmed yesterday June 01 by the patient he does not want reintubation Patient remains critically ill and unstable requiring IV medications and constant adjustment I have personally spent 45 minutes of critical care time in the direct management of this patient. This is a life/limb threatening event. This includes time spent evaluating patient, direct bedside care, chart review, placing orders, interpretation of diagnostic studies, discussion with consultants, patient, and/or family members regarding treatment decisions, as well as other required patient management activities. This time is exclusive of all separately billable procedures, and teaching time and separate from and in addition to any other critical care service time. Consults & Procedures Consultants: Cardiology: Isidoro Infectious disease: Facundo Data Medications: Current Inpatient Medications Medications (Trade) Dose Ordered Sig/Vianey Route Start Time Stop Time Status Last Admin Dose Admin Acetaminophen (Tylenol Tab) 650 mg Q4H PRN PO 05/26/18 15:00 06/25/18 14:59 05/27/18 05:18 650 MG Magnesium Hydroxide (Milk Of Magnesia Susp) 30 ml Q6H PRN PO 05/26/18 15:00 06/25/18 14:59 Glucose (Glucose 40% Gel) 15-30 GRAMS 15 GRAMS... UD PRN PO 05/26/18 15:00 06/25/18 14:59 Glucose (Glucose Chew Tab) 4-8 Tablets 4 Tabl... UD PRN PO 05/26/18 15:00 06/25/18 14:59 Dextrose (Dextrose 50% 50ML Syringe) 25-50ML 25ML FOR ... UD PRN IV 05/26/18 15:00 06/25/18 14:59 06/02/18 05:35 50 ML Glucagon (Glucagon Inj) 1 mg UD PRN SQ 05/26/18 15:00 06/25/18 14:59 Carbohydrates (Carbohydrates For Hypoglycemia) 15-30 GRAMS 15 grams if BSG 54-69... UD PRN PO 05/26/18 15:00 06/25/18 14:59 Finasteride (Proscar Tab) 5 mg QAM PO 05/27/18 08:00 06/26/18 08:59 Future Hold 05/28/18 10:21 5 MG Simvastatin (Zocor Tab) 40 mg QPM PO 05/26/18 21:00 06/25/18 20:59 Future Hold 05/31/18 21:36 40 MG Heparin Sodium (Porcine) (Heparin 100 Unit/ml 5ml Flush) 5 ml PRN PRN IV 05/27/18 01:30 06/26/18 01:29 05/31/18 12:10 5 ML Aspirin (Aspirin Chew) 81 mg DAILY PO 05/28/18 09:00 06/27/18 08:59 06/02/18 08:01 81 MG Miscellaneous Information (Consult Glycemic Management Pharmacy) 1 ea UD PRN N/A 05/27/18 15:14 06/26/18 15:13 Heparin Sodium (Porcine) (Heparin 10 Unit/ ml 5 ml Flush) 5 ml PRN PRN FLUSH 05/28/18 00:15 06/27/18 00:14 Voriconazole 230 mg/Sodium Chloride 100 ml @ 75 mls/hr Q12H IV 05/29/18 10:00 06/03/18 23:19 Future hold 06/01/18 22:23 75 MLS/HR Heparin Sodium (Porcine) (Heparin Sq 5000 Unit/0.5ml) 5,000 unit Q12H SQ 05/30/18 06:00 06/29/18 05:59 06/02/18 05:34 5,000 UNIT Methylprednisolone Sodium Succinate 30 mg/Syringe 0.48 ml @ 1.5 mls/min Q12H IV 05/30/18 12:00 06/29/18 11:59 06/01/18 22:17 1.5 MLS/MIN Levalbuterol (Xopenex 1.25MG/ 3ML Neb) 1.25 mg Q4R PRN INH 05/30/18 10:45 06/29/18 10:44 Insulin Glargine (Lantus Solostar Pen) See Protocol Text BID SC 05/31/18 09:00 06/30/18 08:59 Future Hold 06/01/18 20:44 10 UNITS Ferrous Sulfate (Feosol Tab) 325 mg BIDM PO 05/31/18 07:15 06/30/18 07:14 06/02/18 08:01 325 MG Multivitamins/ Minerals (Multivitamin W/ Minerals Tab) 1 tab QAM PO 05/31/18 09:00 06/30/18 08:59 06/01/18 08:34 1 TAB Voriconazole (Vfend Tab) 200 mg BID PO 06/04/18 09:00 08/19/18 21:01 Pantoprazole Sodium (Protonix Tab) 40 mg BID PO 06/01/18 21:00 07/01/18 20:59 06/02/18 08:01 40 MG Magnesium Oxide (Mag-Ox Tab) 400 mg DAILY PO 06/02/18 09:00 07/02/18 08:59 06/02/18 08:01 400 MG Enteral Nutritional Formula (Boost Glucose Control) 1 can TIDM PO 06/01/18 16:30 07/01/18 16:29 06/02/18 08:04 1 CAN Insulin Aspart (novoLOG ASPART) SLIDING SCALE ACHS SC 06/01/18 16:00 07/01/18 15:59 06/01/18 20:44 1 UNITS Insulin Aspart (novoLOG ASPART) SLIDING SCALE TODAY@0200 SC 06/02/18 02:00 07/02/18 01:59 Nitroglycerin/ Dextrose 250 ml @ 0 mls/hr Q0M PRN IV 06/01/18 14:00 07/01/18 13:59 06/01/18 21:17 30 MLS/HR Furosemide 40 mg/ Syringe 4 ml @ 4 mls/min DAILY IV 06/02/18 09:00 07/02/18 08:59 Metoprolol Tartrate (Lopressor Iv) 5 mg Q6 IV. 06/02/18 00:00 07/02/18 00:00 06/02/18 00:03 5 MG Metoprolol Tartrate (Lopressor Iv) 5 mg NOW PRN IV 06/01/18 18:15 07/01/18 18:14 06/01/18 21:17 5 MG Morphine Sulfate (MoRPHine SULFATE INJ) 2 mg Q2H PRN IV 06/01/18 18:15 06/15/18 18:14 06/02/18 02:36 2 MG Lorazepam (Ativan Inj) 0.5 mg Q4H PRN IV 06/02/18 03:00 07/02/18 02:59 06/02/18 03:56 0.5 MG Vital Signs: Date Time Temp Pulse Resp B/P (MAP) Pulse Ox O2 Delivery O2 Flow Rate FiO2 06/02/18 06:01 75 14 102/73 (80) 100 06/02/18 05:51 83 100 45 8/18/18 05:34 75 98/68 8/18/18 05:32 74 25 98/68 (74) 100 8/18/18 05:01 75 17 92/67 (70) 100 8/18/18 04:01 94 21 121/78 (83) 100 8/18/18 04:00 100 CPAP 10.0 55 8/18/18 04:00 36.0 818/18 03:09 83 100 55 8/18/18 03:01 89 18 106/79 (94) 98 818/18 02:01 98 30 111/86 (91) 100 818/18 01:01 83 20 87/65 (73) 100 818/18 00:03 100 114/77 818/18 00:01 36.1 818/18 00:01 104 26 104/74 (85) 99 8/17/18 23:59 99 CPAP 10.0 70 8/17/18 23:01 115 29 114/77 (96) 99 8/17/18 22:28 108 34 113/77 (83) 98 8/17/18 22:25 107 99 70 8/17/18 22:02 106 25 113/87 (98) 95 8/17/18 21:57 102 37 110/72 (87) 99 8/17/18 21:17 127 124/79 817/18 21:00 127 32 124/79 (86) 97 8/17/18 20:31 124 36 130/81 (86) 97 817/18 20:27 125 96 70 817/18 20:01 129 35 131/82 (98) 97 817/18 20:00 95 CPAP 10.0 70 8/17/18 20:00 36.1 8/17/18 19:45 123 36 131/87 (95) 97 8/17/18 19:31 125 35 131/87 (95) 96 8/17/18 19:10 127 27 129/84 (97) 92 8/17/18 19:06 121 40 130/90 (108) 96 8/17/18 19:01 117 38 123/83 (88) 95 8/17/18 18:15 115 34 132/77 (95) 95 CPAP 70 817/18 17:02 139 139/96 8/17/18 16:00 136 40 147/91 (109) 93 CPAP 70 06/01/18 16:00 CPAP 70 06/01/18 15:36 141 93 70 06/01/18 13:56 144 40 162/111 (128) 95 CPAP 70 06/01/18 13:51 144 37 150/118 (129) 96 CPAP 70 06/01/18 13:46 145 41 162/104 (123) 100 CPAP 70 06/01/18 13:26 145 35 164/115 (131) 95 CPAP 70 06/01/18 13:21 147 44 168/124 (139) 95 CPAP 70 06/01/18 13:16 151 39 178/115 (136) 97 CPAP 70 06/01/18 13:11 155 31 170/110 (130) 95 CPAP 70 06/01/18 13:06 151 34 168/114 (132) 96 CPAP 70 06/01/18 13:03 158 98 70 06/01/18 13:01 153 45 165/120 (135) 96 CPAP 70 06/01/18 13:00 152 45 95 CPAP 70 06/01/18 12:58 157 58 173/120 (137) 96 Oxymask 10.0 06/01/18 12:55 154 38 176/118 (137) 89 Oxymask 10.0 06/01/18 12:52 142 29 169/126 (140) 82 Oxymask 10.0 06/01/18 12:50 142 24 174/119 (137) 83 Oxymask 10.0 06/01/18 12:49 147 40 179/124 (142) 84 Oxymask 10.0 06/01/18 12:45 141 22 169/112 (131) 82 Oxymask 10.0 06/01/18 12:34 143 25 175/124 (141) 88 6.0 06/01/18 10:00 112 17 138/87 (104) 90 Nasal Cannula 6.0 Laboratory Results: Last 24 Hours Test 06/01/18 11:35 06/01/18 16:04 06/01/18 20:41 06/01/18 22:20 Bedside Glucose 263 mg/dl 291 mg/dl 165 mg/dl Sodium Level 144 mmol/L Potassium Level 4.7 mmol/L Chloride Level 110 mmol/L Carbon Dioxide Level 26 mmol/L Anion Gap 8.0 mmol/L Blood Urea Nitrogen 43 mg/dl Creatinine 1.48 mg/dl Est Creatinine Clear Calc Drug Dose 38.5 ml/min Estimated GFR () 53.3 Estimated GFR (Non- 46.0 BUN/Creatinine Ratio 29.1 Random Glucose 102 mg/dl Calcium Level 8.7 mg/dl Phosphorus Level 5.9 mg/dl Magnesium Level 2.1 mg/dl Test 06/02/18 01:58 06/02/18 01:59 06/02/18 02:06 06/02/18 02:27 Bedside Glucose 37 mg/dl 38 mg/dl 174 mg/dl Random Glucose 45 mg/dl Test 06/02/18 04:14 06/02/18 05:50 White Blood Count 22.09 K/uL Red Blood Count 3.82 M/uL Hemoglobin 10.0 g/dL Hematocrit 32.5 % Mean Corpuscular Volume 85.1 fL Mean Corpuscular Hemoglobin 26.2 pg Mean Corpuscular Hemoglobin Concent 30.8 g/dl RDW Standard Deviation 61.3 fL RDW Coefficient of Variation 19.5 % Platelet Count 429 K/uL Mean Platelet Volume 9.6 fL Activated Partial Thromboplast Time 28.0 SECONDS Partial Thromboplastin Ratio 1.1 Sodium Level 146 mmol/L Potassium Level 4.4 mmol/L Chloride Level 110 mmol/L Carbon Dioxide Level 27 mmol/L Anion Gap 9.0 mmol/L Blood Urea Nitrogen 42 mg/dl Creatinine 1.37 mg/dl Est Creatinine Clear Calc Drug Dose 41.6 ml/min Estimated GFR () 58.5 Estimated GFR (Non- 50.4 BUN/Creatinine Ratio 30.8 Random Glucose 50 mg/dl Calcium Level 8.3 mg/dl Phosphorus Level 4.6 mg/dl Magnesium Level 1.9 mg/dl Bedside Glucose 195 mg/dl
[2018-06-02] MEDS ORDERED: FUROSEMIDE INJ 40 MG in SYRINGE 0 ML IV SCH (09:00)
[2018-06-02] MEDS: METHYLPREDNISOLONE 30 MG in SYRINGE 0 ML IV SCH ×2 (09:29→22:33)
[2018-06-02] MEDS: LISINOPRIL 5 MG TAB PO SCH (09:29)
[2018-06-02] MEDS: METOPROLOL TARTRATE 25 MG TAB PO SCH ×2 (09:29→20:36)
[2018-06-02] MEDS: CHLORTHALIDONE 25 MG TAB PO SCH (09:30)
[2018-06-02] MEDS: SODIUM CHLORIDE 0.9% IV SCH ×2 (09:31→22:33)
[2018-06-02] MEDS: VORICONAZOLE IV SCH ×2 (09:31→22:33)
--- NOTE | 2018-06-02 10:29 | SURGERY PROGRESS NOTE ---
DATE: 06/02/2018 Mr. Aden took a turn for the worse yesterday afternoon. He was in much more respiratory distress. He is seen by Dr. Nick and Dr. Chaudhry and diuresed and improved overnight. He is still quite weak. His x-ray looks worse to me, especially on the right side. At this point, I would not address his left apical pocket. The patient is a 'do not resuscitate', do not intubate. Hopefully, he will respond to antifungals and antibiotics and get over this pneumonia; however, he may not. He is quite ill. DOMENICA
--- NOTE | 2018-06-02 13:52 | Pharmacy Progress Note ---
Pharmacy Glycemic Short Note 2 Date of Service Jun 02, 2018. OUTPATIENT ANTIDIABETIC REGIMEN: * Metformin 1gm PO BID * Glipizide ER 2.5mg PO BID * A1c = 6.7% Item Value Date Time Bedside Glucose 108 mg/dl H 06/01/18 0728 Bedside Glucose 263 mg/dl H 06/01/18 1135 Bedside Glucose 291 mg/dl H 06/01/18 1604 Bedside Glucose 165 mg/dl H 06/01/18 2041 Bedside Glucose 37 mg/dl *L 06/02/18 0158 Random Glucose 50 mg/dl *L 06/02/18 0414 Bedside Glucose 195 mg/dl H 06/02/18 0550 Bedside Glucose 58 mg/dl *L 06/02/18 0807 Bedside Glucose 111 mg/dl H 06/02/18 0839 Bedside Glucose 92 mg/dl 06/02/18 1115 ASSESSMENT: 06/02/18 * Mr. Aden developed severe hypoglycemia overnight with BSG of 37 mg/dL. He was administered D50. BSG initially improved but then began to trend downward again, re-check two hours later was 50 mg/dL. Additional D50 was given. He has received no insulin since 06/01 HS. BSG remains below goal. I suspect prolonged hypoglycemia is due to basal insulin, therefore basal insulin has been held. He received a total of 22 units of Lantus yesterday, which was less than the previous day. * Will continue to manage patient with Novolog only until recovery of fasting BSG is seen. * He remains on solu-medrol 30 mg IV every 12 hours. 06/01/18 * Glycemic control has improved over the last 24 hours * Pre-lunch BSG elevated due to pt consuming Boost before Accuchek * Fasting BSG 86-108 this AM w/ 26 units of Lantus on board; will adjust scale to allow for slightly lesser doses * Lantus held this AM secondary to lower BSG, will give supplemental dose w/ lunch now that BSG on the rise * CF and CR will be adjusted as well to allow for slightly lesser doses for next 24 hrs * Retimed supplements to avoid giving Boost just before checking a BSG as this can lead to inappropriate use of correctional insulin and hypoglycemia 05/31/18 * Patient transitioned off insulin drip last evening * BSGs did begin to climb after drip was discontinued, leading me to believe the patient's basal needs are higher than what was given. Currently has 20 units of basal on board this AM. Will increase basal dose * Correctional insulin dose increase over-night for rising BSGs. Will increase this dose further today as pt likely to eat soon and steroids continue. This should help us catch up on insulin deficiency 05/30/18 * Glycemic control did deteriorate yesterday w/ the addition of IV steroids and cont tube feeds * Goals not met with drip over last 24 hrs as drip rates were quite low prior to the above changes. This resulted in very small incremental drip increases over a prolonged period of time despite rising BSGs. An off protocol rate increase would have worked better in retrospect. * New changes today: extubated, tube feeds stopped, remains NPO, dobutamine off , heparin gtt mixed in dextrose also stopped: all factors that should decrease insulin needs * Hydrocortisone IV d/c'd and changed to Solu-medrol today, however the Solu- Medrol dose will result in greater glucocorticoid provision and may lead to increased insulin needs * Will attempted to transition to a SQ regimen slowly over the course of the day today. Doses will be based on moderate-severe stress of illness and weight. PLAN FOR INPATIENT GLYCEMIC CONTROL: * Basal insulin: * on hold * Bolus insulin: * Novolog SQ ACHS * Goal 120 - 160 mg/dL * Correction factor: 25mg/dL/unit * Carb ratio: 1 unit per 9 gm CHO consumed PLAN FOR DISCHARGE: * to be determined
[2018-06-02] MEDS ORDERED: FUROSEMIDE INJ 20 MG in SYRINGE 0 ML IV ONE (21:15)
--- NOTE | 2018-06-02 21:26 | DIAGNOSTIC IMAGING REPORT ---
CHEST ONE VIEW PORTABLE CLINICAL HISTORY: 72 years-old Male presenting with Shortness of breath, history of metastatic small cell carcinoma, history of chemotherapy and radiation in 2016. TECHNIQUE: Portable upright AP view of the chest was obtained. COMPARISON: 06/01/2018 at 1:06 PM. FINDINGS: Left subclavian Mediport terminates at the superior cavoatrial junction and remains accessed. Prominence of the cardiomediastinal silhouette is unchanged. Persistent dense heterogeneous opacity in the left upper lung and right lower lung. Elevation of the left hemidiaphragm is slightly increased. Small right pleural effusion and left apical effusion unchanged. No pneumothorax. Degenerative changes of the thoracic spine. IMPRESSION: 1. Stable dense left upper lung and right lower lung infiltrates, consistent with multifocal pneumonia. 2. Small right pleural effusion. Suspected loculated left apical effusion. These are unchanged. 3. Emphysema. Electronically signed by: Jeffrey Frances M.D. 06/02/2018 9:24 PM Dictated Date/Time: 06/02/2018 9:19 PM
--- NOTE | 2018-06-02 23:00 | Progress Note ---
Subjective Date of Service: Jun 02, 2018. Subjective Pt evaluation today including: conversation w/ patient, physical exam Patient reports breathing better today. He still is fatigued. And reports coughing up dark sputum Problem List Medical Problems: (1) Acute bronchitis Status: Acute (2) GHANSHYAM (acute kidney injury) Status: Acute (3) Enlarged prostate Status: Chronic (4) Epistaxis Status: Acute (5) Exertional dyspnea Status: Acute (6) Hx of cancer of lung Status: Acute (7) Hyperkalemia Status: Acute (8) Hyponatremia Status: Acute (9) Leukocytosis Status: Acute (10) Leukocytosis Status: Acute (11) Lung cancer Status: Acute (12) Multifocal pneumonia Status: Acute (13) Necrotizing pneumonia Status: Acute (14) Pneumonia Status: Acute (15) Sepsis Status: Acute (16) Sepsis Status: Acute (17) SOB (shortness of breath) Status: Acute (18) Stabbing chest pain Status: Acute (19) Substernal chest pain Status: Acute Review of Systems Constitutional: No fever, No chills ENT: No hearing loss Respiratory: + cough, + sputum Cardiac: No chest pain Abdomen: No pain Male : No dysuria Neurologic: No paralysis Psychiatric: No depression symptoms Heme: No abnormal bleeding/bruising Endo: + fatigue Skin: No rash All Other Systems: Reviewed and Negative Objective Vital Signs Date Time Temp Pulse Resp B/P (MAP) Pulse Ox O2 Delivery O2 Flow Rate FiO2 06/02/18 22:01 89 25 112/80 (91) 93 Oxymask 10.0 06/02/18 21:29 114 32 92 Mask 10.0 28 06/02/18 21:01 115 32 138/96 (110) 88 Oxymask 10.0 06/02/18 20:01 36.3 114 18 136/93 (107) 89 Nasal Cannula 6.0 06/02/18 20:00 89 Nasal Cannula 6.0 06/02/18 18:13 96 20 141/95 (110) 88 Nasal Cannula 6.0 06/02/18 16:04 114 20 131/93 (106) 89 Nasal Cannula 6.0 06/02/18 14:00 90 22 135/92 (106) 90 Nasal Cannula 6.0 06/02/18 12:04 67 18 118/81 (93) 92 Oxymask 6.0 06/02/18 10:29 92 24 127/80 (96) 93 Oxymask 6.0 06/02/18 08:00 104 34 132/90 (104) 94 Oxymask 6.0 06/02/18 08:00 Oxymask 6.0 06/02/18 06:01 75 14 102/73 (80) 100 06/02/18 05:51 83 100 45 06/02/18 05:34 75 98/68 06/02/18 05:32 74 25 98/68 (74) 100 06/02/18 05:01 75 17 92/67 (70) 100 06/02/18 04:01 94 21 121/78 (83) 100 06/02/18 04:00 100 CPAP 10.0 55 06/02/18 04:00 36.0 06/02/18 03:09 83 100 55 06/02/18 03:01 89 18 106/79 (94) 98 06/02/18 02:01 98 30 111/86 (91) 100 06/02/18 01:01 83 20 87/65 (73) 100 06/02/18 00:03 100 114/77 06/02/18 00:01 36.1 06/02/18 00:01 104 26 104/74 (85) 99 06/01/18 23:59 99 CPAP 10.0 70 06/01/18 23:01 115 29 114/77 (96) 99 Physical Exam Comments: General Appearance: no apparent distress, + thin, found sitting upright and finishing his dinner Neck: supple, no adenopathy, no JVD, trachea midline Respiratory/Chest: no respiratory distress, no accessory muscle use, + decreased breath sounds Cardiovascular: no edema, no gallop, no JVD, no murmur, normal rate Abdomen: normal bowel sounds, non tender, soft, no organomegaly Extremities: normal inspection, no pedal edema, no calf tenderness, normal capillary refill, pelvis stable Neurologic/Psychiatric: awake, ox2 Skin: normal color, warm/dry, no rash Laboratory Results Last 24 Hours Test 06/02/18 01:58 06/02/18 01:59 06/02/18 02:06 06/02/18 02:27 Bedside Glucose 37 mg/dl 38 mg/dl 174 mg/dl Random Glucose 45 mg/dl Test 06/02/18 04:14 06/02/18 05:50 06/02/18 08:07 06/02/18 08:08 White Blood Count 22.09 K/uL Red Blood Count 3.82 M/uL Hemoglobin 10.0 g/dL Hematocrit 32.5 % Mean Corpuscular Volume 85.1 fL Mean Corpuscular Hemoglobin 26.2 pg Mean Corpuscular Hemoglobin Concent 30.8 g/dl RDW Standard Deviation 61.3 fL RDW Coefficient of Variation 19.5 % Platelet Count 429 K/uL Mean Platelet Volume 9.6 fL Activated Partial Thromboplast Time 28.0 SECONDS Partial Thromboplastin Ratio 1.1 Sodium Level 146 mmol/L Potassium Level 4.4 mmol/L Chloride Level 110 mmol/L Carbon Dioxide Level 27 mmol/L Anion Gap 9.0 mmol/L Blood Urea Nitrogen 42 mg/dl Creatinine 1.37 mg/dl Est Creatinine Clear Calc Drug Dose 41.6 ml/min Estimated GFR () 58.5 Estimated GFR (Non- 50.4 BUN/Creatinine Ratio 30.8 Random Glucose 50 mg/dl Calcium Level 8.3 mg/dl Phosphorus Level 4.6 mg/dl Magnesium Level 1.9 mg/dl Bedside Glucose 195 mg/dl 58 mg/dl 55 mg/dl Test 06/02/18 08:39 06/02/18 11:15 06/02/18 16:12 06/02/18 20:32 Bedside Glucose 111 mg/dl 92 mg/dl 103 mg/dl 169 mg/dl Assessment and Plan 72 y/o M who was admitted on 05/26 with PNA and COPD exacerbation - Acute hypoxic respiratory failure, respiratory distress, due to pulmonary edema, acute heart failure intubated on 05/27 emergently Extubated today CXR with improved aeration of right lower lobe Off oxymask today management per ICU Patient did not require reintubation today. Patient will remain in ICU again overnight. Patient will be placed on cpap at night Patient reports he does not want to be reintubated. snf prognosis remains poor. - Acute systolic heart failure, acute decompensation EF low at 15-20% h/o ischemic cardiomyopathy, h/o low EF in the 's but most recent EF had improved earlier this year placed on Dobutamine, making adequate urine, lungs clearing cardiology following poor overall prognosis h/o seven stents, none recently - Left upper lobe cavitary lesion, questionable right lower lobe infiltrate no evidence of mucous on bronchoscopy yesterday antibiotics stopped, placed on Voriconazole due to h/o Aspergillus bronchial lavage sent for culture, negative - Elevated troponin, NSTEMI type II demand ischemia due to tachycardia, respiratory distress, attempted electrocardioversion twice yesterday troponin peaked at 14, down to [address] Chaudhry, certainly left heart cath could be considered in the future, but patient would not be candidate for stenting, cannot tolerate DAPT due to nose bleeds - Worsening anemia, assumed blood loss, but still unclear etiology Protonix IV BID was heme positive stool in the ED transfused 4 units total, Hb 8.8 today - COPD: no evidence of exacerbation - DM with hyperglycemia insulin infusion, pharmacy management - H/o lung cancer had recent PET scan as outpatient, no evidence of recurrent disease per Dr. Poole, had isolated small cell lung CA, treated with chemotherapy and radiation no further work up at this time as he would not be a candidate for any type of treatment CAD: hx of NV and stents x7 Pt could not tolerate plavix (nosebleeds) and is on aspirin 81mg Holding for now given above Hyperlipidemia: continue home meds BPH: continue home meds Spent 35 minutes in management of patient, reviewing chart, discussing with consultants. Family at bedside, updated. Continued [facility] stay due to: other (acute care continues) Discharge planning: uncertain
[2018-06-03] VITALS (24 sets, daily range): BP systolic 106–140; BP diastolic 63–89; PULSE 41–108; TEMP 36.2–36.8; O2SAT 84–100
[2018-06-03 04:33] LABS: CALCIUM 8.2 mg/dl (8.5-10.1); CREATININE 1.24 mg/dl (0.60-1.40); PHOSPHORUS 3.2 mg/dl (2.5-4.9); POTASSIUM 3.5 mmol/L (3.5-5.1)
[2018-06-03] MEDS: HEPARIN SOD 5000 UNIT/0.5 ML CARP SQ SCH ×2 (06:54→18:09)
[2018-06-03] MEDS: FERROUS SULFATE 325 MG TAB PO SCH ×2 (07:59→16:24)
[2018-06-03] MEDS: BOOST GLUCOSE CONTROL VANILLA PO SCH ×3 (07:59→16:23)
[2018-06-03] MEDS: INSULIN ASPART 100 UNITS/ML 3 ML PEN SC SCH ×5 (07:59→23:53)
[2018-06-03] MEDS: CEROVITE ADV FORMULA TAB PO SCH (08:00)
[2018-06-03] MEDS: PANTOprazole SOD 40 MG TAB PO SCH ×2 (08:00→21:12)
[2018-06-03] MEDS: LISINOPRIL 5 MG TAB PO SCH (08:00)
[2018-06-03] MEDS: METOPROLOL TARTRATE 25 MG TAB PO SCH ×2 (08:00→21:12)
[2018-06-03] MEDS: MAGNESIUM OXIDE 400 MG TAB PO SCH (08:01)
[2018-06-03] MEDS: ASPIRIN 81 MG CHEW PO SCH (08:01)
[2018-06-03] MEDS: CHLORTHALIDONE 25 MG TAB PO SCH (08:01)
[2018-06-03] MEDS ORDERED: INSULIN GLARGINE SOLOSTAR 100 UNITS/ML 3 ML PEN SC SCH (09:00)
[2018-06-03] MEDS ORDERED: SPIRONOLACTONE 25 MG TAB PO ONE (09:15)
[2018-06-03] MEDS ORDERED: POTASSIUM CHLORIDE 10 MEQ TABCR PO STA (09:16)
--- NOTE | 2018-06-03 09:29 | Critical Care Progress Note ---
Critical Care Progress Note Date of Service Jun 03, 2018. ICU Day ICU Day Number: [address] Nick Subjective Overnight patient required intermittent BiPAP was given additional dose of Lasix and Ativan for anxiety. Complaints of inability to exhale at that time. Patient has returned to oxygen mask, will give trial of high flow nasal cannula for alternative device to provide oxygen therapy that might be more comfortable Objective General: Alert and oriented Skin: Warm, dry, Head: Atraumatic Ears, nose, mouth and throat: Airway patent tolerating oxygen mask Cardiovascular: Normal peripheral perfusion Respiratory: Coarse respirations, bilaterally Gastrointestinal: Non distended Musculoskeletal: No deformity Assessment & Plan Reason Critically Ill: 72-year-old male with possibly recurrent lung cancer who has hypoxic respiratory failure pneumonia. PLAN: Neuro: Passed swallow study -PT OT consult Resp: Hypoxic respiratory failure: Improving -Liberated from mechanical ventilation May 30 -Fungal elements reported negative, aspergillus testing remains not reported -Scant normal cee from BAL, no growth and blood cultures -We will continue antifungal given improvement and awaiting formal aspergillus aspergillus antibodies positive -At this point I anticipate IV treatment with 7 days and will consult with infectious disease regarding transition to oral dosing for possible 6-12 weeks -Holding statin secondary to transaminitis which I suspect is secondary to voriconazole -Day 6 of 7 IV then plan transition to oral -Will give trial of high flow nasal cannula for alternative device to provide oxygen therapy for additional comfort Left upper lobe loculated effusion -Followed by thoracic surgery -No strong indication for intervention at this time risks outweigh benefits CV: Hypotension: Resolved Possible cardiomyopathy -Continue aspirin, did not tolerate Plavix secondary to recurrent epistaxis Reduced EF heart failure, systolic: Improved Flash pulmonary edema: Improving -Aggressive diuresis, 1.2 L's negative yesterday Tachycardia and hypertension: Improved -Increase beta-veronica today: 25 mg to start this evening Prolonged QTC: Improved -Discontinue Zofran Fluids/Renal: Hypernatremia: Resolved -Careful diuresis: Stopped daily Lasix -Chlorthalidone 25 mg -Lisinopril 5 mg daily started June 02 -Will add Aldactone today 40 mg K-Dur p.o. today ID: Discontinue antibacterial 05/28 -Voriconazole for possible aspergillus -Send 1 3 fungitel,: Negative aspergillus panel: Pending -Reviewed outpatient records, last pulmonary note was placed on 12 day course of itraconazole GI/Nutrition: Encourage high-protein diet -2 bowel movements on May 31, 2018 Heme: Anemia -Heparin DVT prophylaxis convert to Lovenox for less invasive therapy -Surveillance venous duplex ordered: Patient has been receiving chemical DVT prophylaxis however has not ambulated in 1 week and has cancer history, with mildly worsened hypoxemia Oncology: Small cell lung cancer -limited-stage diagnosed in 01/2016, S/P concurrent chemo and radiation treatment, last cycle of chemotherapy received in June 2016. -Seen by oncology, not candidate for chemotherapy nor radiation as patient's baseline functional status precludes him from aggressive treatment, risks outweigh benefits Endocrine: Hyperglycemia: Improving -Pharmacy glycemic control consult Convert to oral steroids and will likely require prolonged taper -30 mg Solu-Medrol twice daily convert to 40 mg prednisone daily -Weekly taper of steroids ordered Vascular access: Central line, arterial line: Discontinued May 30, 2018 Code Status: DO NOT RESUSCITATE, DO NOT INTUBATE in event of respiratory insufficiency, this was confirmed yesterday June 01 by the patient he does not want reintubation Patient mildly improved compared to yesterday, however, the patient has a long road ahead and needs to regain significant strength and functional status, his condition is most certainly guarded and I am concerned about his long-term prognosis. Patient is stable for downgrade to telemetry status. Consults & Procedures Consultants: Cardiology: Isidoro Infectious disease: Facundo Data Medications: Current Inpatient Medications Medications (Trade) Dose Ordered Sig/Vianey Route Start Time Stop Time Status Last Admin Dose Admin Acetaminophen (Tylenol Tab) 650 mg Q4H PRN PO 05/26/18 15:00 06/25/18 14:59 05/27/18 05:18 650 MG Magnesium Hydroxide (Milk Of Magnesia Susp) 30 ml Q6H PRN PO 05/26/18 15:00 06/25/18 14:59 Glucose (Glucose 40% Gel) 15-30 GRAMS 15 GRAMS... UD PRN PO 05/26/18 15:00 06/25/18 14:59 Glucose (Glucose Chew Tab) 4-8 Tablets 4 Tabl... UD PRN PO 05/26/18 15:00 06/25/18 14:59 Dextrose (Dextrose 50% 50ML Syringe) 25-50ML 25ML FOR ... UD PRN IV 05/26/18 15:00 06/25/18 14:59 06/02/18 08:19 50 ML Glucagon (Glucagon Inj) 1 mg UD PRN SQ 05/26/18 15:00 06/25/18 14:59 Carbohydrates (Carbohydrates For Hypoglycemia) 15-30 GRAMS 15 grams if BSG 54-69... UD PRN PO 05/26/18 15:00 06/25/18 14:59 Finasteride (Proscar Tab) 5 mg QAM PO 05/27/18 08:00 06/26/18 08:59 Future Hold 05/28/18 10:21 5 MG Simvastatin (Zocor Tab) 40 mg QPM PO 05/26/18 21:00 06/25/18 20:59 Future Hold 05/31/18 21:36 40 MG Heparin Sodium (Porcine) (Heparin 100 Unit/ml 5ml Flush) 5 ml PRN PRN IV 05/27/18 01:30 06/26/18 01:29 06/02/18 08:19 5 ML Aspirin (Aspirin Chew) 81 mg DAILY PO 05/28/18 09:00 06/27/18 08:59 06/03/18 08:01 81 MG Miscellaneous Information (Consult Glycemic Management Pharmacy) 1 ea UD PRN N/A 05/27/18 15:14 06/26/18 15:13 Heparin Sodium (Porcine) (Heparin 10 Unit/ ml 5 ml Flush) 5 ml PRN PRN FLUSH 05/28/18 00:15 06/27/18 00:14 Voriconazole 230 mg/Sodium Chloride 100 ml @ 75 mls/hr Q12H IV 05/29/18 10:00 06/03/18 23:19 Future hold 06/02/18 22:33 75 MLS/HR Heparin Sodium (Porcine) (Heparin Sq 5000 Unit/0.5ml) 5,000 unit Q12H SQ 05/30/18 06:00 06/29/18 05:59 06/03/18 06:54 5,000 UNIT Methylprednisolone Sodium Succinate 30 mg/Syringe 0.48 ml @ 1.5 mls/min Q12H IV 05/30/18 12:00 06/29/18 11:59 06/02/18 22:33 1.5 MLS/MIN Levalbuterol (Xopenex 1.25MG/ 3ML Neb) 1.25 mg Q4R PRN INH 05/30/18 10:45 06/29/18 10:44 06/02/18 21:28 1.25 MG Ferrous Sulfate (Feosol Tab) 325 mg BIDM PO 05/31/18 07:15 06/30/18 07:14 06/03/18 07:59 325 MG Multivitamins/ Minerals (Multivitamin W/ Minerals Tab) 1 tab QAM PO 05/31/18 09:00 06/30/18 08:59 06/03/18 08:00 1 TAB Voriconazole (Vfend Tab) 200 mg BID PO 06/04/18 09:00 08/19/18 21:01 Pantoprazole Sodium (Protonix Tab) 40 mg BID PO 06/01/18 21:00 07/01/18 20:59 06/03/18 08:00 40 MG Magnesium Oxide (Mag-Ox Tab) 400 mg DAILY PO 06/02/18 09:00 07/02/18 08:59 06/03/18 08:01 400 MG Enteral Nutritional Formula (Boost Glucose Control) 1 can TIDM PO 06/01/18 16:30 07/01/18 16:29 06/03/18 07:59 1 CAN Insulin Aspart (novoLOG ASPART) SLIDING SCALE ACHS SC 06/01/18 16:00 07/01/18 15:59 06/03/18 07:59 9 UNITS Nitroglycerin/ Dextrose 250 ml @ 0 mls/hr Q0M PRN IV 06/01/18 14:00 07/01/18 13:59 06/01/18 21:17 30 MLS/HR Metoprolol Tartrate (Lopressor Iv) 5 mg NOW PRN IV 06/01/18 18:15 07/01/18 18:14 06/01/18 21:17 5 MG Morphine Sulfate (MoRPHine SULFATE INJ) 2 mg Q2H PRN IV 06/01/18 18:15 06/15/18 18:14 06/02/18 02:36 2 MG Lorazepam (Ativan Inj) 0.5 mg Q4H PRN IV 06/02/18 03:00 07/02/18 02:59 06/02/18 20:35 0.5 MG Metoprolol Tartrate (Lopressor Tab) 12.5 mg BID PO 06/02/18 09:00 07/02/18 08:59 06/03/18 08:00 12.5 MG Lisinopril (Zestril Tab) 5 mg QAM PO 06/02/18 09:00 07/02/18 08:59 06/03/18 08:00 5 MG Chlorthalidone (Hygroton Tab) 25 mg QAM PO 06/02/18 09:00 07/02/18 08:59 06/03/18 08:01 25 MG Insulin Glargine (Lantus Solostar Pen) 9 units QAM SC 06/03/18 09:00 06/03/18 11:00 I & O: 24-Hour Column 06/04/18 08:00 Intake Total 400 ml Output Total 150 ml Balance 250 ml Vital Signs: Date Time Temp Pulse Resp B/P (MAP) Pulse Ox O2 Delivery O2 Flow Rate FiO2 06/03/18 08:00 36.6 93 17 119/75 (90) 92 Oxymask 10.0 06/03/18 08:00 97 Oxymask 10.0 06/03/18 07:00 90 20 133/81 (98) 96 Oxymask 10.0 06/03/18 06:01 86 17 125/79 (94) 96 Oxymask 10.0 06/03/18 05:01 90 16 139/88 (105) 93 Oxymask 10.0 06/03/18 04:01 36.6 89 21 134/78 (96) 84 Oxymask 10.0 06/03/18 03:01 80 16 129/77 (94) 99 Oxymask 10.0 06/03/18 02:01 82 16 125/79 (94) 98 Oxymask 10.0 06/03/18 01:01 48 18 120/65 (83) 97 Oxymask 10.0 06/03/18 00:01 36.2 94 21 130/69 (89) Oxymask 10.0 06/02/18 23:01 94 20 117/70 (86) 94 Oxymask 10.0 06/02/18 22:01 89 25 112/80 (91) 93 Oxymask 10.0 06/02/18 21:29 114 32 92 Mask 10.0 28 06/02/18 21:01 115 32 138/96 (110) 88 Oxymask 10.0 06/02/18 20:01 36.3 114 18 136/93 (107) 89 Nasal Cannula 6.0 06/02/18 20:00 89 Nasal Cannula 6.0 06/02/18 18:13 96 20 141/95 (110) 88 Nasal Cannula 6.0 06/02/18 16:04 114 20 131/93 (106) 89 Nasal Cannula 6.0 06/02/18 14:00 90 22 135/92 (106) 90 Nasal Cannula 6.0 06/02/18 12:04 67 18 118/81 (93) 92 Oxymask 6.0 06/02/18 10:29 92 24 127/80 (96) 93 Oxymask 6.0 Laboratory Results: Last 24 Hours Test 06/02/18 11:15 06/02/18 16:12 06/02/18 20:32 06/03/18 04:02 Bedside Glucose 92 mg/dl 103 mg/dl 169 mg/dl Activated Partial Thromboplast Time 31.0 SECONDS Partial Thromboplastin Ratio 1.2 Sodium Level 142 mmol/L Potassium Level 3.5 mmol/L Chloride Level 105 mmol/L Carbon Dioxide Level 27 mmol/L Anion Gap 10.0 mmol/L Blood Urea Nitrogen 46 mg/dl Creatinine 1.24 mg/dl Est Creatinine Clear Calc Drug Dose 45.4 ml/min Estimated GFR () 66.0 Estimated GFR (Non- 56.9 BUN/Creatinine Ratio 36.9 Random Glucose 185 mg/dl Calcium Level 8.2 mg/dl Phosphorus Level 3.2 mg/dl Magnesium Level 1.8 mg/dl Test 06/03/18 06:58 Bedside Glucose 206 mg/dl
[2018-06-03] MEDS: SODIUM CHLORIDE 0.9% IV SCH ×2 (10:15→21:20)
[2018-06-03] MEDS: VORICONAZOLE IV SCH ×2 (10:15→21:20)
[2018-06-03] MEDS ORDERED: MAGNESIUM OXIDE 400 MG TAB PO ONE (12:00)
[2018-06-03] MEDS ORDERED: INSULIN HUMAN REGULAR PER UNIT 5 UNITS in SYRINGE 4.95 ML IV ONE (12:15)
[2018-06-03] MEDS ORDERED: INSULIN GLARGINE SOLOSTAR 100 UNITS/ML 3 ML PEN SC ONE (12:15)
--- NOTE | 2018-06-03 13:14 | DIAGNOSTIC IMAGING REPORT ---
BILATERAL LOWER EXTREMITY VENOUS DOPPLER CLINICAL HISTORY: worsening hypoxia, HX small cell CA COMPARISON STUDY: No previous studies for comparison. TECHNIQUE: Sonography of the deep venous system of the bilateral lower extremities was performed. Compression and augmentation were evaluated. FINDINGS: The bilateral common femoral, superficial femoral and popliteal veins were compressible. Augmentation was normal. Flow was shown within the deep calf vessels. IMPRESSION: No evidence of deep venous thrombus within the bilateral lower extremities. Electronically signed by: Jose Prieto M.D. 06/03/2018 1:13 PM Dictated Date/Time: 06/03/2018 1:13 PM
--- NOTE | 2018-06-03 15:09 | Pharmacy Progress Note ---
Pharmacy Glycemic Short Note 2 Date of Service Jun 03, 2018. OUTPATIENT ANTIDIABETIC REGIMEN: * Metformin 1gm PO BID * Glipizide ER 2.5mg PO BID * A1c = 6.7% Item Value Date Time Random Glucose 50 mg/dl *L 06/02/18 0414 Bedside Glucose 195 mg/dl H 06/02/18 0550 Bedside Glucose 58 mg/dl *L 06/02/18 0807 Bedside Glucose 111 mg/dl H 06/02/18 0839 Bedside Glucose 92 mg/dl 06/02/18 1115 Bedside Glucose 103 mg/dl H 06/02/18 1612 Bedside Glucose 169 mg/dl H 06/02/18 2032 Bedside Glucose 206 mg/dl H 06/03/18 0658 Bedside Glucose 327 mg/dl H 06/03/18 1122 ASSESSMENT: 06/03/18 * Glycemic control continues to fluctuate. Patient received no insulin on 06/02. * Basal insulin was held yesterday due to prolonged hypoglycemia. Since basal insulin was held, fasting BSG this AM was elevated. * IV regular insulin 5 unit bolus x 1 was ordered with lunch for BSG 327 mg/dL. * Solu-medrol 30 mg IV every 12 hours was transitioned to prednisone 40 mg PO once daily this AM. I suspect patient may no longer require a 24 hr basal insulin since change to prednisone. Will consider transition to NPH tomorrow ( Lantus was already given this am). The peak effect of NPH correlates nicely with the peak BSG elevation caused from prednisone. 06/02/18 * Mr. Aden developed severe hypoglycemia overnight with BSG of 37 mg/dL. He was administered D50. BSG initially improved but then began to trend downward again, re-check two hours later was 50 mg/dL. Additional D50 was given. He has received no insulin since 06/01 HS. BSG remains below goal. I suspect prolonged hypoglycemia is due to basal insulin, therefore basal insulin has been held. He received a total of 22 units of Lantus yesterday, which was less than the previous day. * Will continue to manage patient with Novolog only until recovery of fasting BSG is seen. * He remains on solu-medrol 30 mg IV every 12 hours. 06/01/18 * Glycemic control has improved over the last 24 hours * Pre-lunch BSG elevated due to pt consuming Boost before Accuchek * Fasting BSG 86-108 this AM w/ 26 units of Lantus on board; will adjust scale to allow for slightly lesser doses * Lantus held this AM secondary to lower BSG, will give supplemental dose w/ lunch now that BSG on the rise * CF and CR will be adjusted as well to allow for slightly lesser doses for next 24 hrs * Retimed supplements to avoid giving Boost just before checking a BSG as this can lead to inappropriate use of correctional insulin and hypoglycemia 05/31/18 * Patient transitioned off insulin drip last evening * BSGs did begin to climb after drip was discontinued, leading me to believe the patient's basal needs are higher than what was given. Currently has 20 units of basal on board this AM. Will increase basal dose * Correctional insulin dose increase over-night for rising BSGs. Will increase this dose further today as pt likely to eat soon and steroids continue. This should help us catch up on insulin deficiency 05/30/18 * Glycemic control did deteriorate yesterday w/ the addition of IV steroids and cont tube feeds * Goals not met with drip over last 24 hrs as drip rates were quite low prior to the above changes. This resulted in very small incremental drip increases over a prolonged period of time despite rising BSGs. An off protocol rate increase would have worked better in retrospect. * New changes today: extubated, tube feeds stopped, remains NPO, dobutamine off , heparin gtt mixed in dextrose also stopped: all factors that should decrease insulin needs * Hydrocortisone IV d/c'd and changed to Solu-medrol today, however the Solu- Medrol dose will result in greater glucocorticoid provision and may lead to increased insulin needs * Will attempted to transition to a SQ regimen slowly over the course of the day today. Doses will be based on moderate-severe stress of illness and weight. PLAN FOR INPATIENT GLYCEMIC CONTROL: * Basal insulin: - resume * Lantus 9 units SQ this AM + additional 4 units given with lunch * Further Basal insulin to be ordered on 06/04 am * Bolus insulin: - tighten CF/CR, add 00 and 04 checks * Novolog SQ ACHS * Goal 120 - 160 mg/dL * Correction factor: 20 mg/dL/unit * Carb ratio: 1 unit per 8 gm CHO consumed PLAN FOR DISCHARGE: * to be determined
--- NOTE | 2018-06-03 20:12 | Progress Note ---
Subjective Date of Service: Jun 03, 2018. Subjective Patient reports breathing better. Still is coughing up dark sputum. In regards to option of reintubation, today he states that he is unsure Despite yesterday saying that he did not want to be reintubated. Problem List Medical Problems: (1) Acute bronchitis Status: Acute (2) GHANSHYAM (acute kidney injury) Status: Acute (3) Enlarged prostate Status: Chronic (4) Epistaxis Status: Acute (5) Exertional dyspnea Status: Acute (6) Hx of cancer of lung Status: Acute (7) Hyperkalemia Status: Acute (8) Hyponatremia Status: Acute (9) Leukocytosis Status: Acute (10) Leukocytosis Status: Acute (11) Lung cancer Status: Acute (12) Multifocal pneumonia Status: Acute (13) Necrotizing pneumonia Status: Acute (14) Pneumonia Status: Acute (15) Sepsis Status: Acute (16) Sepsis Status: Acute (17) SOB (shortness of breath) Status: Acute (18) Stabbing chest pain Status: Acute (19) Substernal chest pain Status: Acute Review of Systems Constitutional: No fever, No chills ENT: No hearing loss Respiratory: + cough, + sputum Cardiac: No chest pain Abdomen: No pain Male : No dysuria Neurologic: No paralysis Psychiatric: No depression symptoms Heme: No abnormal bleeding/bruising Endo: + fatigue Skin: No rash All Other Systems: Reviewed and Negative Objective Vital Signs Date Time Temp Pulse Resp B/P (MAP) Pulse Ox O2 Delivery O2 Flow Rate FiO2 06/03/18 19:49 36.7 96 14 96 40.0 06/03/18 18:00 102 27 136/78 (97) 96 High Flow Oxygen 40.0 45 06/03/18 17:00 98 27 136/78 (97) 95 High Flow Oxygen 40 06/03/18 16:00 100 High Flow Oxygen 40.0 45 06/03/18 16:00 36.7 90 20 130/73 (92) 100 High Flow Oxygen 40.0 45 06/03/18 15:00 108 17 140/86 (104) 97 Oxymask 10.0 06/03/18 14:00 93 20 117/63 (81) 93 Oxymask 10.0 06/03/18 13:00 98 22 125/78 (94) 90 Oxymask 10.0 06/03/18 12:00 36.6 94 21 123/76 (92) 86 Oxymask 10.0 06/03/18 11:00 86 23 110/65 (80) 97 06/03/18 10:00 41 31 106/70 (82) 97 Oxymask 10.0 06/03/18 09:00 94 23 114/73 (87) 89 Oxymask 10.0 06/03/18 08:00 36.6 93 17 119/75 (90) 92 Oxymask 10.0 06/03/18 08:00 97 Oxymask 10.0 06/03/18 07:00 90 20 133/81 (98) 96 Oxymask 10.0 06/03/18 06:01 86 17 125/79 (94) 96 Oxymask 10.0 06/03/18 05:01 90 16 139/88 (105) 93 Oxymask 10.0 06/03/18 04:01 36.6 89 21 134/78 (96) 84 Oxymask 10.0 06/03/18 03:01 80 16 129/77 (94) 99 Oxymask 10.0 06/03/18 02:01 82 16 125/79 (94) 98 Oxymask 10.0 06/03/18 01:01 48 18 120/65 (83) 97 Oxymask 10.0 06/03/18 00:01 36.2 94 21 130/69 (89) Oxymask 10.0 06/02/18 23:01 94 20 117/70 (86) 94 Oxymask 10.0 06/02/18 22:01 89 25 112/80 (91) 93 Oxymask 10.0 06/02/18 21:29 114 32 92 Mask 10.0 28 06/02/18 21:01 115 32 138/96 (110) 88 Oxymask 10.0 Physical Exam Comments: General Appearance: no apparent distress, + thin, found sitting upright on oxymask Neck: supple, no adenopathy, no JVD, trachea midline Respiratory/Chest: no respiratory distress, no accessory muscle use, + decreased breath sounds Cardiovascular: no edema, no gallop, no JVD, no murmur, normal rate Abdomen: normal bowel sounds, non tender, soft, no organomegaly Extremities: normal inspection, no pedal edema, no calf tenderness, normal capillary refill, pelvis stable Neurologic/Psychiatric: awake, ox2 Skin: normal color, warm/dry, no rash Laboratory Results Last 24 Hours Test 06/02/18 20:32 06/03/18 04:02 06/03/18 06:58 06/03/18 11:22 Bedside Glucose 169 mg/dl 206 mg/dl 327 mg/dl Activated Partial Thromboplast Time 31.0 SECONDS Partial Thromboplastin Ratio 1.2 Sodium Level 142 mmol/L Potassium Level 3.5 mmol/L Chloride Level 105 mmol/L Carbon Dioxide Level 27 mmol/L Anion Gap 10.0 mmol/L Blood Urea Nitrogen 46 mg/dl Creatinine 1.24 mg/dl Est Creatinine Clear Calc Drug Dose 45.4 ml/min Estimated GFR () 66.0 Estimated GFR (Non- 56.9 BUN/Creatinine Ratio 36.9 Random Glucose 185 mg/dl Calcium Level 8.2 mg/dl Phosphorus Level 3.2 mg/dl Magnesium Level 1.8 mg/dl Test 06/03/18 16:20 Bedside Glucose 232 mg/dl Assessment and Plan 72 y/o M who was admitted on 05/26 with PNA and COPD exacerbation - Acute hypoxic respiratory failure, respiratory distress, due to pulmonary edema, acute heart failure, possible aspergillus pneumonia intubated on 05/27 emergently Extubated on 05/30 CXR with improved aeration of right lower lobe On oxymask today after Bipap over night Fungal elements reported negative, aspergillus testing remains not reported Scant normal cee from BAL, no growth and blood cultures continue antifungal given improvement and awaiting formal aspergillus aspergillus antibodies positive Anticipate IV treatment with 7 days and will consult with infectious disease regarding transition to oral dosing for possible 6-12 weeks Holding statin secondary to transaminitis which I suspect is secondary to voriconazole Day 6 of 7 IV then plan transition to oral management per ICU Patient did not require reintubation today. Patient will remain in ICU again overnight. Patient will be placed on cpap at night Patient reports he does not want to be reintubated. custodial prognosis remains poor. - Acute systolic heart failure, acute decompensation EF low at 15-20% h/o ischemic cardiomyopathy, h/o low EF in the 's but most recent EF had improved earlier this year placed on Dobutamine, making adequate urine, lungs clearing cardiology following poor overall prognosis h/o seven stents, none recently - Left upper lobe cavitary lesion, questionable right lower lobe infiltrate no evidence of mucous on bronchoscopy yesterday antibiotics stopped, placed on Voriconazole due to h/o Aspergillus bronchial lavage sent for culture, negative - Elevated troponin, NSTEMI type II demand ischemia due to tachycardia, respiratory distress, attempted electrocardioversion twice yesterday troponin peaked at [address] Chaudhry, certainly left heart cath could be considered in the future, but patient would not be candidate for stenting, cannot tolerate DAPT due to nose bleeds - Worsening anemia, assumed blood loss, but still unclear etiology Protonix IV BID was heme positive stool in the ED transfused 4 units total, Hb 10 yesterday - COPD: no evidence of exacerbation - DM with hyperglycemia insulin infusion, pharmacy management - H/o lung cancer had recent PET scan as outpatient, no evidence of recurrent disease per Dr. 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 Ok to transfer to . Family updated. Poor retirement prognosis. Possibility that patient may need to be transferred back to ICU. Continued [facility] stay due to: other (acute care continues) Discharge planning: uncertain
[2018-06-03] MEDS: LORAZEPAM 2 MG/ML 1 ML VIAL IV PRN (22:43)
[2018-06-04] VITALS (8 sets, daily range): BP systolic 100–148; BP diastolic 68–84; PULSE 78–89; TEMP 36.6–36.8; O2SAT 95–100
[2018-06-04] MEDS: INSULIN ASPART 100 UNITS/ML 3 ML PEN SC SCH ×5 (04:00→20:50)
[2018-06-04 04:39] LABS: HEMATOCRIT 29.3 % (42-52); HEMOGLOBIN 9.1 g/dL (14.0-18.0); IG# 0.11 K/uL (0.00-0.02); LYMPH ABS # 0.48 K/uL (1.2-3.4); MEAN CELL VOLUME 82.5 fL (80-100); MEAN CORPUSCULAR HEMOGLOBIN 25.6 pg (25-34); MEAN CORPUSCULAR HGB CONC 31.1 g/dl (32-36); MEAN PLATELET VOLUME 10.3 fL (7.4-10.4); MONO % 5.1 %; MONO ABS # 0.61 K/uL (0.11-0.59); NEUT ABS # 10.67 K/uL (1.4-6.5); PLATELET COUNT 327 K/uL (130-400); RED CELL DISTRIBUTION WIDTH CV 20.2 % (11.5-14.5); RED CELL DISTRIBUTION WIDTH SD 60.5 fL (36.4-46.3); WHITE BLOOD COUNT 11.87 K/uL (4.8-10.8)
[2018-06-04 05:00] LABS: ALBUMIN 1.8 gm/dl (3.4-5.0); CALCIUM 8.1 mg/dl (8.5-10.1); CREATININE 1.16 mg/dl (0.60-1.40); POTASSIUM 4.3 mmol/L (3.5-5.1)
[2018-06-04 05:06] LABS: PHOSPHORUS 1.9 mg/dl (2.5-4.9); TOTAL PROTEIN 5.8 gm/dl (6.4-8.2)
[2018-06-04] MEDS: ASPIRIN 81 MG CHEW PO SCH (07:51)
[2018-06-04] MEDS: FERROUS SULFATE 325 MG TAB PO SCH ×2 (07:52→17:26)
[2018-06-04] MEDS: MAGNESIUM OXIDE 400 MG TAB PO SCH (07:52)
[2018-06-04] MEDS: CHLORTHALIDONE 25 MG TAB PO SCH (07:52)
[2018-06-04] MEDS: SPIRONOLACTONE 25 MG TAB PO SCH (07:52)
[2018-06-04] MEDS: PANTOprazole SOD 40 MG TAB PO SCH ×2 (07:53→20:50)
[2018-06-04] MEDS: LISINOPRIL 5 MG TAB PO SCH (07:53)
[2018-06-04] MEDS: CEROVITE ADV FORMULA TAB PO SCH (07:53)
[2018-06-04] MEDS: ENOXAPARIN 40 MG/0.4 ML SYR SQ SCH (07:54)
[2018-06-04] MEDS: METOPROLOL TARTRATE 25 MG TAB PO SCH ×2 (07:54→20:44)
[2018-06-04] MEDS: BOOST GLUCOSE CONTROL VANILLA PO SCH ×3 (07:58→17:26)
--- NOTE | 2018-06-04 08:08 | SURGERY PROGRESS NOTE ---
DATE: 06/03/2018 Mr. Aden was sitting and eating breakfast. He recognized me which is the first time at this hospitalization he has done that. His voice is stronger. His x-ray from yesterday looked worse. He seemed a bit better to me now though. Of course, the patient with positive antibody to Aspergillus; however, he is not growing anything on the fungal cultures as of yet from the bronchoscopy. I am concerned about the left upper lobe cavity. It does appear to be an airway going to this. I have put a call into Dr. Yannick Ashford at [facility] about possibly using the [place] endobronchial valve. I believe he would be a candidate for this; however, infection is usually a contraindication to this. Given the current clinical state of Mr. Aden, I believe we can forego that and will try to insert an endobronchial valve if Dr. Ashford feels it is appropriate. Of course, the best thing that could happen would be for the patient to heal up and recover from the pneumonia with antibiotics and antifungal alone. We will continue to follow along. It is encouraging to see him eat today. DOMENICA
[2018-06-04] MEDS ORDERED: SODIUM PHOSPHATE 3 MMOL/1 ML INFUSION IV STA (08:18)
[2018-06-04] MEDS ORDERED: SODIUM PHOSPHATE INJ 24 MMOL in SODIUM CHLORIDE 0.9% 500ML 500 ML IV ONE (08:30)
[2018-06-04] MEDS: VORICONAZOLE 200 MG TAB PO SCH ×2 (08:59→20:44)
[2018-06-04] MEDS: INSULIN HUMAN NPH SC SCH (09:00)
[2018-06-04] MEDS ORDERED: VORICONAZOLE 200 MG TAB PO SCH (09:00)
--- NOTE | 2018-06-04 09:52 | Pharmacy Progress Note ---
Pharmacy Glycemic Short Note 2 Date of Service Jun 04, 2018. OUTPATIENT ANTIDIABETIC REGIMEN: * Metformin 1gm PO BID * Glipizide ER 2.5mg PO BID * A1c = 6.7% Item Value Date Time Bedside Glucose 206 mg/dl H 06/03/18 0658 Bedside Glucose 327 mg/dl H 06/03/18 1122 Bedside Glucose 232 mg/dl H 06/03/18 1620 Bedside Glucose 198 mg/dl H 06/03/18 2026 Bedside Glucose 147 mg/dl H 06/03/18 2349 Bedside Glucose 134 mg/dl H 06/04/18 0412 Bedside Glucose 160 mg/dl H 06/04/18 0729 ASSESSMENT: * Glycemic control continues to fluctuate. Patient received no insulin on 06/02 which resulted in significant hyperglycemia on 06/03. * Steroids tapered to prednisone 40mg PO daily. This should yield an improvement in steroid induced hyperglycemia. * NPH insulin is used to counteract the hyperglycemic effect of prednisone. The rationale for this approach is that the pharmacodynamics profile of NPH, with a peak effect of 4-8hrs and duration of action of 12-16hrs, mirrors the pharmacodynamics of prednisone. NPH should be dosed at the same time that prednisone is given * The dose of NPH given is dependent on the steroid dose given * For doses of prednisone 40mg/day or above NPH dose should be 0.4 units/kg * NPH dosing above is given in addition to patients basal insulin needs * Typically, patients will also need rapid-acting insulin with meals PLAN FOR INPATIENT GLYCEMIC CONTROL: * Basal insulin: -stop Lantus and change to NPH for once daily steroid induced hyperglycemia * NPH 25 units (0.4 units/kg for prednisone 40mg daily) SQ daily * Hold if prednisone dose held * Bolus insulin: - no change * Novolog SQ ACHS * Goal 120 - 160 mg/dL * Correction factor: 20 mg/dL/unit * Carb ratio: 1 unit per 8 gm CHO consumed PLAN FOR DISCHARGE: * to be determined based on steroid taper at discharge.
--- NOTE | 2018-06-04 09:52 | Progress Note ---
Subjective Date of Service: Jun 04, 2018. Subjective Pt evaluation today including: conversation w/ patient, conversation w/ family ( at the bedside), physical exam, lab review, review of studies, conversation w/ dairy nutrition consultant, review of inpatient medication list Pain: no pain PO Intake: ate 100% breakfast Voiding: roche catheter in place patient breathing easier today, intermittent cough, bringing up some blood and mucous no fever, WBC down to 11k from 22k, Cr stable, phosphorus low at 1.9, K stable discussed with Dr. Srivastava, he is waiting to discuss an endobronchial valve with thoracic surgeon at [facility], it could be done after discharge appetite improving today breathing comfortably on 45% high flow updated at the bedside Problem List Medical Problems: (1) Acute bronchitis Status: Acute (2) GHANSHYAM (acute kidney injury) Status: Acute (3) Enlarged prostate Status: Chronic (4) Epistaxis Status: Acute (5) Exertional dyspnea Status: Acute (6) Hx of cancer of lung Status: Acute (7) Hyperkalemia Status: Acute (8) Hyponatremia Status: Acute (9) Leukocytosis Status: Acute (10) Leukocytosis Status: Acute (11) Lung cancer Status: Acute (12) Multifocal pneumonia Status: Acute (13) Necrotizing pneumonia Status: Acute (14) Pneumonia Status: Acute (15) Sepsis Status: Acute (16) Sepsis Status: Acute (17) SOB (shortness of breath) Status: Acute (18) Stabbing chest pain Status: Acute (19) Substernal chest pain Status: Acute Review of Systems Constitutional: + weakness, + fatigue Respiratory: + cough, + shortness of breath, + dyspnea on exertion, + hemoptysis Neurologic: + weakness All Other Systems: Reviewed and Negative Medications Current Inpatient Medications Medications (Trade) Dose Ordered Sig/Vianey Route Start Time Stop Time Status Last Admin Dose Admin Acetaminophen (Tylenol Tab) 650 mg Q4H PRN PO 05/26/18 15:00 06/25/18 14:59 05/27/18 05:18 650 MG Magnesium Hydroxide (Milk Of Magnesia Susp) 30 ml Q6H PRN PO 05/26/18 15:00 06/25/18 14:59 Glucose (Glucose 40% Gel) 15-30 GRAMS 15 GRAMS... UD PRN PO 05/26/18 15:00 9/10/18 14:59 Glucose (Glucose Chew Tab) 4-8 Tablets 4 Tabl... UD PRN PO 05/26/18 15:00 06/25/18 14:59 Dextrose (Dextrose 50% 50ML Syringe) 25-50ML 25ML FOR ... UD PRN IV 05/26/18 15:00 06/25/18 14:59 06/02/18 08:19 50 ML Glucagon (Glucagon Inj) 1 mg UD PRN SQ 05/26/18 15:00 06/25/18 14:59 Carbohydrates (Carbohydrates For Hypoglycemia) 15-30 GRAMS 15 grams if BSG 54-69... UD PRN PO 05/26/18 15:00 06/25/18 14:59 Heparin Sodium (Porcine) (Heparin 100 Unit/ml 5ml Flush) 5 ml PRN PRN IV 05/27/18 01:30 06/26/18 01:29 06/02/18 08:19 5 ML Aspirin (Aspirin Chew) 81 mg DAILY PO 05/28/18 09:00 06/27/18 08:59 06/04/18 07:51 81 MG Miscellaneous Information (Consult Glycemic Management Pharmacy) 1 ea UD PRN N/A 05/27/18 15:14 06/26/18 15:13 Heparin Sodium (Porcine) (Heparin 10 Unit/ ml 5 ml Flush) 5 ml PRN PRN FLUSH 05/28/18 00:15 06/27/18 00:14 Levalbuterol (Xopenex 1.25MG/ 3ML Neb) 1.25 mg Q4R PRN INH 05/30/18 10:45 06/29/18 10:44 06/02/18 21:28 1.25 MG Ferrous Sulfate (Feosol Tab) 325 mg BIDM PO 05/31/18 07:15 06/30/18 07:14 06/04/18 07:52 325 MG Multivitamins/ Minerals (Multivitamin W/ Minerals Tab) 1 tab QAM PO 05/31/18 09:00 06/30/18 08:59 06/04/18 07:53 1 TAB Pantoprazole Sodium (Protonix Tab) 40 mg BID PO 06/01/18 21:00 07/01/18 20:59 06/04/18 07:53 40 MG Magnesium Oxide (Mag-Ox Tab) 400 mg DAILY PO 06/02/18 09:00 07/02/18 08:59 06/04/18 07:52 400 MG Enteral Nutritional Formula (Boost Glucose Control) 1 can TIDM PO 06/01/18 16:30 07/01/18 16:29 06/04/18 07:58 1 CAN Insulin Aspart (novoLOG ASPART) SLIDING SCALE ACHS SC 06/01/18 16:00 07/01/18 15:59 06/04/18 09:00 10 UNITS Metoprolol Tartrate (Lopressor Iv) 5 mg NOW PRN IV 06/01/18 18:15 07/01/18 18:14 06/01/18 21:17 5 MG Morphine Sulfate (MoRPHine SULFATE INJ) 2 mg Q2H PRN IV 06/01/18 18:15 06/15/18 18:14 06/02/18 02:36 2 MG Lorazepam (Ativan Inj) 0.5 mg Q4H PRN IV 06/02/18 03:00 07/02/18 02:59 06/03/18 22:43 0.5 MG Lisinopril (Zestril Tab) 5 mg QAM PO 06/02/18 09:00 07/02/18 08:59 06/04/18 07:53 5 MG Chlorthalidone (Hygroton Tab) 25 mg QAM PO 06/02/18 09:00 07/02/18 08:59 06/04/18 07:52 25 MG Spironolactone (Aldactone Tab) 25 mg QAM PO 06/04/18 09:00 07/04/18 08:59 06/04/18 07:52 25 MG Metoprolol Tartrate (Lopressor Tab) 25 mg BID PO 06/03/18 21:00 07/02/18 08:59 06/04/18 07:54 25 MG Prednisone (PredniSONE TAB) 40 mg Taper DAILY PO 06/03/18 09:00 07/08/18 08:59 06/04/18 07:52 40 MG Enoxaparin Sodium (Lovenox Inj) 40 mg QAM SQ 06/04/18 09:00 07/04/18 08:59 06/04/18 07:54 40 MG Insulin Human NPH (novoLIN-N NPH) 25 units DAILY SC 06/04/18 09:00 07/04/18 08:59 06/04/18 09:00 25 UNITS Sodium Phosphate 24 mmol/Sodium Chloride 508 ml @ 125 mls/hr ONE ONCE IV 06/04/18 08:30 06/04/18 12:33 06/04/18 08:59 125 MLS/HR Voriconazole (Vfend Tab) 200 mg BID PO 06/04/18 09:00 08/19/18 21:01 06/04/18 08:59 200 MG Objective Vital Signs Date Time Temp Pulse Resp B/P (MAP) Pulse Ox O2 Delivery O2 Flow Rate FiO2 06/04/18 09:00 High Flow Oxygen 45 06/04/18 07:24 36.8 78 18 100/68 (79) 96 06/04/18 03:36 36.6 80 16 117/78 (91) 100 High Flow Oxygen 06/03/18 23:08 36.8 82 16 117/64 (81) 98 High Flow Oxygen 45.0 06/03/18 20:08 36.6 86 15 132/80 (97) 99 High Flow Oxygen 45.0 06/03/18 20:06 95 24 98 Nasal Cannula 40.0 06/03/18 20:00 97 High Flow Oxygen 40.0 Oxymask 06/03/18 19:49 36.7 96 14 96 40.0 06/03/18 18:00 102 27 136/78 (97) 96 High Flow Oxygen 40.0 45 06/03/18 17:00 98 27 136/78 (97) 95 High Flow Oxygen 40 06/03/18 16:00 100 High Flow Oxygen 40.0 45 06/03/18 16:00 36.7 90 20 130/73 (92) 100 High Flow Oxygen 40.0 45 06/03/18 15:00 108 17 140/86 (104) 97 Oxymask 10.0 06/03/18 14:00 93 20 117/63 (81) 93 Oxymask 10.0 06/03/18 13:00 98 22 125/78 (94) 90 Oxymask 10.0 06/03/18 12:00 36.6 94 21 123/76 (92) 86 Oxymask 10.0 06/03/18 11:00 86 23 110/65 (80) 97 06/03/18 10:00 41 31 106/70 (82) 97 Oxymask 10.0 Physical Exam General Appearance: no apparent distress, + thin Eyes: normal inspection, EOMI, sclerae normal ENT: normal ENT inspection, hearing grossly normal, pharynx normal Neck: supple, no adenopathy, no JVD, trachea midline Respiratory/Chest: chest non-tender, + decreased breath sounds (right base, left upper lobe), + rhonchi Cardiovascular: regular rate, rhythm, no edema, no gallop, no JVD, no murmur Abdomen: normal bowel sounds, non tender, soft, no organomegaly Extremities: normal range of motion, non-tender, normal inspection, no pedal edema, no calf tenderness, pelvis stable 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, alert, normal mood/affect, oriented x 3, + motor weakness (generalized) Skin: normal color, warm/dry, no rash Lymphatic: no adenopathy Laboratory Results Last 24 Hours Test 06/03/18 11:22 06/03/18 16:20 06/03/18 20:26 06/03/18 23:49 Bedside Glucose 327 mg/dl 232 mg/dl 198 mg/dl 147 mg/dl Test 06/04/18 04:12 06/04/18 04:22 06/04/18 07:29 Bedside Glucose 134 mg/dl 160 mg/dl White Blood Count 11.87 K/uL Red Blood Count 3.55 M/uL Hemoglobin 9.1 g/dL Hematocrit 29.3 % Mean Corpuscular Volume 82.5 fL Mean Corpuscular Hemoglobin 25.6 pg Mean Corpuscular Hemoglobin Concent 31.1 g/dl Platelet Count 327 K/uL Mean Platelet Volume 10.3 fL Neutrophils (%) (Auto) 90.0 % Lymphocytes (%) (Auto) 4.0 % Monocytes (%) (Auto) 5.1 % Eosinophils (%) (Auto) 0.0 % Basophils (%) (Auto) 0.0 % Neutrophils # (Auto) 10.67 K/uL Lymphocytes # (Auto) 0.48 K/uL Monocytes # (Auto) 0.61 K/uL Eosinophils # (Auto) 0.00 K/uL Basophils # (Auto) 0.00 K/uL RDW Standard Deviation 60.5 fL RDW Coefficient of Variation 20.2 % Immature Granulocyte % (Auto) 0.9 % Immature Granulocyte # (Auto) 0.11 K/uL Anisocytosis PRESENT Sodium Level 140 mmol/L Potassium Level 4.3 mmol/L Chloride Level 105 mmol/L Carbon Dioxide Level 29 mmol/L Anion Gap 6.0 mmol/L Blood Urea Nitrogen 45 mg/dl Creatinine 1.16 mg/dl Est Creatinine Clear Calc Drug Dose 48.4 ml/min Estimated GFR () 71.5 Estimated GFR (Non- 61.7 BUN/Creatinine Ratio 39.0 Random Glucose 134 mg/dl Calcium Level 8.1 mg/dl Phosphorus Level 1.9 mg/dl Magnesium Level 1.8 mg/dl Total Bilirubin 0.5 mg/dl Direct Bilirubin 0.1 mg/dl Aspartate Amino Transf (AST/SGOT) 26 U/L Alanine Aminotransferase (ALT/SGPT) 122 U/L Alkaline Phosphatase 136 U/L Total Protein 5.8 gm/dl Albumin 1.8 gm/dl Assessment and Plan 72 y/o M who was admitted on 05/26 with PNA and COPD exacerbation - Acute hypoxic respiratory failure, respiratory distress, due to pulmonary edema, acute heart failure, possible aspergillus pneumonia intubated on 05/27 emergently Extubated on 05/30 CXR on 06/02 with continued infiltrate right lower and left upper lobe breathing well this morning on high flow NC 45% has antibiotics for aspergillus but cultures all negative responding well to Voriconazole, today is day 7 ID following, consider changing to PO treatment, chronic? Scant normal cee from BAL, no growth and blood cultures discussed possible need for left upper lobe endobronchial valve with Dr. Srivastava, he is waiting to hear from [facility], would NOT be done this admission - Acute systolic heart failure, acute decompensation EF low at 15-20% h/o ischemic cardiomyopathy, h/o low EF in the 20s but most recent EF had improved earlier this year h/o seven stents, none recently continue Chlorthalidone and Spironolactone, euvolemic, Cr stable monitor for any volume overload - Left upper lobe cavitary lesion, questionable right lower lobe infiltrate no evidence of mucous on bronchoscopy antibiotics stopped, placed on Voriconazole due to h/o Aspergillus bronchial lavage sent for culture, negative as above, may need left upper lobe valve but it is experimental - Elevated troponin, NSTEMI type II demand ischemia due to tachycardia, respiratory distress, attempted electrocardioversion twice yesterday troponin peaked at [address] Chaudhry, certainly left heart cath could be considered in the future, but patient would not be candidate for stenting, cannot tolerate DAPT due to nose bleeds - Worsening anemia, assumed blood loss, but still unclear etiology Protonix IV BID was heme positive stool in the ED transfused 4 units total, Hb 9.1 today - COPD: no evidence of exacerbation - DM with hyperglycemia insulin infusion, pharmacy management - H/o lung cancer had recent PET scan as outpatient, no evidence of recurrent disease per Dr. Poole, had isolated small cell lung CA, treated with chemotherapy and radiation no further work up at this time as he would not be a candidate for any type of treatment CAD: hx of VT and stents x7 Pt could not tolerate plavix (nosebleeds) and is on aspirin 81mg Holding for now given above Hyperlipidemia: continue home meds BPH: continue home meds continue on tele, anticipate patient needing acute rehab or SNF on discharge Continued [facility] stay due to: other (acute care continues) Discharge planning: uncertain
--- NOTE | 2018-06-04 18:28 | SURGERY PROGRESS NOTE ---
DATE: 06/04/2018 Mr. Aden today looked better. He is sitting up eating breakfast. He is wearing nasal cannula with good saturations. Mr. Aden is in quite a tough spot. He has terrible heart and he goes into failure quite quickly. He also has no pulmonary reserve, so when he goes into failure, he gets in trouble quite quickly. We are going to check another x-ray on him tomorrow. I got some feedback from the [facility] about the endobronchial valve. Their clinical expert is going to be calling me. I do not have much in the way of optimism that they are going to agree with the valve in this setting of infection; however, I think it could be helpful and we will discuss it with them. DOMENICA
[2018-06-05] VITALS (7 sets, daily range): BP systolic 99–126; BP diastolic 60–70; PULSE 66–87; TEMP 36.4–36.9; O2SAT 93–97; Ht 170.2 cm; Wt 54.8 kg
[2018-06-05 06:22] LABS: BASO % 0.1 %; BASO ABS # 0.01 K/uL (0-0.2); EOS % 0.6 %; EOS ABS # 0.06 K/uL (0-0.5); HEMATOCRIT 29.6 % (42-52); HEMOGLOBIN 9.1 g/dL (14.0-18.0); IG# 0.11 K/uL (0.00-0.02); LYMPH % 7.5 %; LYMPH ABS # 0.78 K/uL (1.2-3.4); MEAN CELL VOLUME 84.1 fL (80-100); MEAN CORPUSCULAR HEMOGLOBIN 25.9 pg (25-34); MEAN CORPUSCULAR HGB CONC 30.7 g/dl (32-36); MEAN PLATELET VOLUME 10.4 fL (7.4-10.4); MONO % 6.3 %; MONO ABS # 0.65 K/uL (0.11-0.59); NEUT % 84.4 %; NEUT ABS # 8.77 K/uL (1.4-6.5); PLATELET COUNT 354 K/uL (130-400); RED CELL DISTRIBUTION WIDTH CV 20.5 % (11.5-14.5); RED CELL DISTRIBUTION WIDTH SD 61.5 fL (36.4-46.3); WHITE BLOOD COUNT 10.38 K/uL (4.8-10.8)
[2018-06-05 06:59] LABS: CREATININE 0.93 mg/dl (0.60-1.40)
[2018-06-05 07:00] LABS: CALCIUM 8.6 mg/dl (8.5-10.1); PHOSPHORUS 2.6 mg/dl (2.5-4.9); POTASSIUM 3.6 mmol/L (3.5-5.1)
[2018-06-05] MEDS: CARBOHYDRATES FOR HYPOGLYCEMIA PO PRN ×2 (07:04→17:11)
[2018-06-05] MEDS: BOOST GLUCOSE CONTROL VANILLA PO SCH ×3 (07:40→17:43)
[2018-06-05] MEDS: METOPROLOL TARTRATE 25 MG TAB PO SCH ×2 (07:41→21:39)
[2018-06-05] MEDS: FERROUS SULFATE 325 MG TAB PO SCH ×2 (07:41→17:00)
[2018-06-05] MEDS: CHLORTHALIDONE 25 MG TAB PO SCH (07:41)
[2018-06-05] MEDS: PANTOprazole SOD 40 MG TAB PO SCH ×2 (07:41→21:38)
[2018-06-05] MEDS: VORICONAZOLE 200 MG TAB PO SCH ×2 (07:41→22:05)
[2018-06-05] MEDS: CEROVITE ADV FORMULA TAB PO SCH (07:41)
[2018-06-05] MEDS: MAGNESIUM OXIDE 400 MG TAB PO SCH (07:42)
[2018-06-05] MEDS: SPIRONOLACTONE 25 MG TAB PO SCH (07:42)
[2018-06-05] MEDS: ENOXAPARIN 40 MG/0.4 ML SYR SQ SCH (07:42)
[2018-06-05] MEDS: LISINOPRIL 5 MG TAB PO SCH (08:13)
[2018-06-05] MEDS: ASPIRIN 81 MG CHEW PO SCH (08:13)
[2018-06-05] MEDS: INSULIN HUMAN NPH SC SCH (08:15)
[2018-06-05] MEDS: INSULIN ASPART 100 UNITS/ML 3 ML PEN SC SCH ×3 (08:15→16:30)
--- NOTE | 2018-06-05 08:21 | Pharmacy Progress Note ---
Pharmacy Glycemic Short Note 2 Date of Service Jun 05, 2018. OUTPATIENT ANTIDIABETIC REGIMEN: * Metformin 1gm PO BID * Glipizide ER 2.5mg PO BID * A1c = 6.7% Item Value Date Time Bedside Glucose 134 mg/dl H 06/04/18 0412 Bedside Glucose 160 mg/dl H 06/04/18 0729 Bedside Glucose 314 mg/dl H 06/04/18 1135 Bedside Glucose 134 mg/dl H 06/04/18 1618 Bedside Glucose 172 mg/dl H 06/04/18 2026 Bedside Glucose 53 mg/dl *L 06/05/18 0701 Bedside Glucose 83 mg/dl 06/05/18 0717 ASSESSMENT: * Glycemic control continues to fluctuate. * Steroids tapered to prednisone 40mg PO daily on 06/03/18 * NPH insulin is used to counteract the hyperglycemic effect of once daily dosed prednisone. The rationale for this approach is that the pharmacodynamics profile of NPH, with a peak effect of 4-8hrs and duration of action of 12-16hrs , mirrors the pharmacodynamics of prednisone. NPH should be dosed at the same time that prednisone is given * The dose of NPH given is dependent on the steroid dose given * For doses of prednisone 40mg/day or above NPH dose should be 0.4 units/kg * NPH dosing above is given in addition to patients basal insulin needs * Typically, patients will also need rapid-acting insulin with meals * Pt with LOW BSG this morning- most likely d/t correctional NovoLog given at HS. Prednisone hyperglycemic effects should tate off by HS and therefore hyperglycemia will not need corrected at HS. Will change BSGs/coverage to AC only. PLAN FOR INPATIENT GLYCEMIC CONTROL: * Basal insulin: NPH for once daily steroid induced hyperglycemia * NPH 25 units (0.4 units/kg for prednisone 40mg daily) SQ daily * Hold if prednisone dose held * Bolus insulin: - remove HS coverage. Only give with meals to prevent AM hypoglycemia * Novolog SQ ACHS * Goal 120 - 160 mg/dL * Correction factor: 20 mg/dL/unit * Carb ratio: 1 unit per 7 gm CHO consumed PLAN FOR DISCHARGE: * to be determined based on steroid taper at discharge.
--- NOTE | 2018-06-05 15:18 | Progress Note ---
Subjective Date of Service: Jun 05, 2018. Subjective Pt evaluation today including: conversation w/ patient, conversation w/ family (daughter at the bedside), physical exam, lab review, review of inpatient medication list Pain: no pain PO Intake: adequate, eating 100% meals Voiding: no voiding problems patient breathing better this morning, titrated to 3L nasal canula, no distress still with cough, less productive though, less blood no pain eating well, urinating well, moving bowels reviewed labs, WBC normal 10k, Hb stable at 9.1, Cr stable had some hypoglycemia this AM but quickly rebounded discussed moving to medical floor d/w CM, planning on [facility], told them that hopeful for the end of the week Problem List Medical Problems: (1) Acute bronchitis Status: Acute (2) GHANSHYAM (acute kidney injury) Status: Acute (3) Enlarged prostate Status: Chronic (4) Epistaxis Status: Acute (5) Exertional dyspnea Status: Acute (6) Hx of cancer of lung Status: Acute (7) Hyperkalemia Status: Acute (8) Hyponatremia Status: Acute (9) Leukocytosis Status: Acute (10) Leukocytosis Status: Acute (11) Lung cancer Status: Acute (12) Multifocal pneumonia Status: Acute (13) Necrotizing pneumonia Status: Acute (14) Pneumonia Status: Acute (15) Sepsis Status: Acute (16) Sepsis Status: Acute (17) SOB (shortness of breath) Status: Acute (18) Stabbing chest pain Status: Acute (19) Substernal chest pain Status: Acute Review of Systems Constitutional: + weakness, + fatigue Respiratory: + cough, + sputum, + shortness of breath, + dyspnea on exertion, + hemoptysis (occasional) Neurologic: + weakness All Other Systems: Reviewed and Negative Medications Current Inpatient Medications Medications (Trade) Dose Ordered Sig/Vianey Route Start Time Stop Time Status Last Admin Dose Admin Acetaminophen (Tylenol Tab) 650 mg Q4H PRN PO 05/26/18 15:00 06/25/18 14:59 05/27/18 05:18 650 MG Magnesium Hydroxide (Milk Of Magnesia Susp) 30 ml Q6H PRN PO 05/26/18 15:00 06/25/18 14:59 Glucose (Glucose 40% Gel) 15-30 GRAMS 15 GRAMS... UD PRN PO 05/26/18 15:00 06/25/18 14:59 Glucose (Glucose Chew Tab) 4-8 Tablets 4 Tabl... UD PRN PO 05/26/18 15:00 06/25/18 14:59 Dextrose (Dextrose 50% 50ML Syringe) 25-50ML 25ML FOR ... UD PRN IV 05/26/18 15:00 06/25/18 14:59 06/02/18 08:19 50 ML Glucagon (Glucagon Inj) 1 mg UD PRN SQ 05/26/18 15:00 06/25/18 14:59 Carbohydrates (Carbohydrates For Hypoglycemia) 15-30 GRAMS 15 grams if BSG 54-69... UD PRN PO 05/26/18 15:00 06/25/18 14:59 06/05/18 07:04 30 GM Heparin Sodium (Porcine) (Heparin 100 Unit/ml 5ml Flush) 5 ml PRN PRN IV 05/27/18 01:30 06/26/18 01:29 06/02/18 08:19 5 ML Aspirin (Aspirin Chew) 81 mg DAILY PO 05/28/18 09:00 06/27/18 08:59 06/05/18 08:13 81 MG Miscellaneous Information (Consult Glycemic Management Pharmacy) 1 ea UD PRN N/A 05/27/18 15:14 06/26/18 15:13 Heparin Sodium (Porcine) (Heparin 10 Unit/ ml 5 ml Flush) 5 ml PRN PRN FLUSH 05/28/18 00:15 06/27/18 00:14 Levalbuterol (Xopenex 1.25MG/ 3ML Neb) 1.25 mg Q4R PRN INH 05/30/18 10:45 06/29/18 10:44 06/02/18 21:28 1.25 MG Ferrous Sulfate (Feosol Tab) 325 mg BIDM PO 05/31/18 07:15 06/30/18 07:14 06/05/18 07:41 325 MG Multivitamins/ Minerals (Multivitamin W/ Minerals Tab) 1 tab QAM PO 05/31/18 09:00 06/30/18 08:59 06/05/18 07:41 1 TAB Pantoprazole Sodium (Protonix Tab) 40 mg BID PO 06/01/18 21:00 07/01/18 20:59 06/05/18 07:41 40 MG Magnesium Oxide (Mag-Ox Tab) 400 mg DAILY PO 06/02/18 09:00 07/02/18 08:59 06/05/18 07:42 400 MG Enteral Nutritional Formula (Boost Glucose Control) 1 can TIDM PO 06/01/18 16:30 07/01/18 16:29 06/05/18 12:04 1 CAN Metoprolol Tartrate (Lopressor Iv) 5 mg NOW PRN IV 06/01/18 18:15 07/01/18 18:14 06/01/18 21:17 5 MG Morphine Sulfate (MoRPHine SULFATE INJ) 2 mg Q2H PRN IV 06/01/18 18:15 06/15/18 18:14 06/02/18 02:36 2 MG Lorazepam (Ativan Inj) 0.5 mg Q4H PRN IV 06/02/18 03:00 07/02/18 02:59 06/03/18 22:43 0.5 MG Lisinopril (Zestril Tab) 5 mg QAM PO 06/02/18 09:00 07/02/18 08:59 06/05/18 08:13 5 MG Chlorthalidone (Hygroton Tab) 25 mg QAM PO 06/02/18 09:00 07/02/18 08:59 06/05/18 07:41 25 MG Spironolactone (Aldactone Tab) 25 mg QAM PO 06/04/18 09:00 07/04/18 08:59 06/05/18 07:42 25 MG Metoprolol Tartrate (Lopressor Tab) 25 mg BID PO 06/03/18 21:00 07/02/18 08:59 06/05/18 07:41 25 MG Prednisone (PredniSONE TAB) 40 mg Taper DAILY PO 06/03/18 09:00 07/08/18 08:59 06/05/18 07:40 40 MG Enoxaparin Sodium (Lovenox Inj) 40 mg QAM SQ 06/04/18 09:00 07/04/18 08:59 06/05/18 07:42 40 MG Insulin Human NPH (novoLIN-N NPH) 25 units DAILY SC 06/04/18 09:00 07/04/18 08:59 06/05/18 08:15 25 UNITS Voriconazole (Vfend Tab) 200 mg BID PO 06/04/18 09:00 08/19/18 21:01 06/05/18 07:41 200 MG Insulin Aspart (novoLOG ASPART) SLIDING SCALE AC SC 06/05/18 07:00 07/05/18 06:59 06/05/18 12:06 9 UNITS Objective Vital Signs Date Time Temp Pulse Resp B/P (MAP) Pulse Ox O2 Delivery O2 Flow Rate FiO2 06/05/18 14:24 36.7 76 20 103/62 (76) 95 Nasal Cannula 3.0 06/05/18 12:37 93 06/05/18 11:43 36.9 77 18 119/63 (81) 96 06/05/18 08:30 Nasal Cannula 3.0 06/05/18 07:37 36.8 87 22 101/62 (75) 95 Humidified Oxygen 40.0 41 06/05/18 04:09 36.4 66 22 99/60 (73) 93 High Flow Oxygen 40.0 41 Humidified Oxygen 06/04/18 23:42 36.6 78 21 115/76 (89) 99 High Flow Oxygen 40.0 43 Humidified Oxygen 06/04/18 22:16 85 20 98 Nasal Cannula 40.0 06/04/18 20:00 96 High Flow Oxygen 45 06/04/18 19:52 36.6 89 17 127/77 (94) 96 High Flow Oxygen 06/04/18 15:40 36.6 81 18 121/77 (92) 95 Nasal Cannula Physical Exam General Appearance: no apparent distress, + thin Eyes: normal inspection, EOMI, sclerae normal ENT: normal ENT inspection, hearing grossly normal, pharynx normal Neck: supple, no adenopathy, no JVD, trachea midline Respiratory/Chest: chest non-tender, no respiratory distress, no accessory muscle use, + crackles (bases), + rhonchi (left sided) Cardiovascular: regular rate, rhythm, no edema, no gallop, no JVD, no murmur Abdomen: normal bowel sounds, non tender, soft, no organomegaly Extremities: normal range of motion, non-tender, normal inspection, no pedal edema, no calf tenderness, pelvis stable Neurologic/Psychiatric: veterinary practice manager II-XII nml as tested, alert, normal mood/affect, oriented x 3, + motor weakness (generalized) Skin: normal color, warm/dry, no rash Laboratory Results Last 24 Hours Test 06/04/18 16:18 06/04/18 20:26 06/05/18 05:27 06/05/18 07:01 Bedside Glucose 134 mg/dl 172 mg/dl 53 mg/dl White Blood Count 10.38 K/uL Red Blood Count 3.52 M/uL Hemoglobin 9.1 g/dL Hematocrit 29.6 % Mean Corpuscular Volume 84.1 fL Mean Corpuscular Hemoglobin 25.9 pg Mean Corpuscular Hemoglobin Concent 30.7 g/dl Platelet Count 354 K/uL Mean Platelet Volume 10.4 fL Neutrophils (%) (Auto) 84.4 % Lymphocytes (%) (Auto) 7.5 % Monocytes (%) (Auto) 6.3 % Eosinophils (%) (Auto) 0.6 % Basophils (%) (Auto) 0.1 % Neutrophils # (Auto) 8.77 K/uL Lymphocytes # (Auto) 0.78 K/uL Monocytes # (Auto) 0.65 K/uL Eosinophils # (Auto) 0.06 K/uL Basophils # (Auto) 0.01 K/uL RDW Standard Deviation 61.5 fL RDW Coefficient of Variation 20.5 % Immature Granulocyte % (Auto) 1.1 % Immature Granulocyte # (Auto) 0.11 K/uL Anisocytosis PRESENT Microcytosis PRESENT Sodium Level 142 mmol/L Potassium Level 3.6 mmol/L Chloride Level 104 mmol/L Carbon Dioxide Level 31 mmol/L Anion Gap 6.0 mmol/L Blood Urea Nitrogen 42 mg/dl Creatinine 0.93 mg/dl Est Creatinine Clear Calc Drug Dose 58.6 ml/min Estimated GFR () 93.4 Estimated GFR (Non- 80.6 BUN/Creatinine Ratio 45.0 Random Glucose 45 mg/dl Calcium Level 8.6 mg/dl Phosphorus Level 2.6 mg/dl Magnesium Level 1.8 mg/dl Test 06/05/18 07:17 06/05/18 11:23 Bedside Glucose 83 mg/dl 108 mg/dl Assessment and Plan 72 y/o M who was admitted on 05/26 with PNA and COPD exacerbation - Acute hypoxic respiratory failure, respiratory distress, due to pulmonary edema, acute heart failure, possible aspergillus pneumonia intubated on 05/27 emergently Extubated on 05/30 CXR on 06/02 with continued infiltrate right lower and left upper lobe breathing well this morning, titrated down to 3L, no distress responded well to Voriconazole, today is day 8 ID following, continue on PO, will ask ID how long? Scant normal cee from BAL, no growth and blood cultures discussed possible need for left upper lobe endobronchial valve with Dr. 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 Chaudhry, certainly left heart cath could be considered in the future, but patient would not be candidate for stenting, cannot tolerate DAPT due to nose bleeds - Worsening anemia, assumed blood loss, but still unclear etiology Protonix IV BID was heme positive stool in the ED transfused 4 units total, Hb 9 again today - COPD: no evidence of exacerbation - DM with hyperglycemia insulin infusion, pharmacy management - H/o lung cancer had recent PET scan as outpatient, no evidence of recurrent disease per Dr. Poole, had isolated small cell lung CA, treated with chemotherapy and radiation no further work up at this time as he would not be a candidate for any type of treatment CAD: hx of NC and stents x7 Pt could not tolerate plavix (nosebleeds) and is on aspirin 81mg Holding for now given above Hyperlipidemia: continue home meds BPH: continue home meds transfer to medical floor today, PT/OT evaluations, planning on [facility] on discharge Continued [facility] stay due to: other (acute care continues) Discharge planning: uncertain
[2018-06-05] MEDS ORDERED: SODIUM CHLORIDE 0.65% NA SOLN 45 ML (OCEAN) ONE (20:54)
[2018-06-05] MEDS ORDERED: SODIUM CHLORIDE 0.65% NA SOLN 45 ML (OCEAN) PRN (21:15)
[2018-06-06 00:30] VITALS: O2SAT 93
[2018-06-06 06:11] LABS: BASO % 0.1 %; BASO ABS # 0.01 K/uL (0-0.2); EOS % 0.9 %; EOS ABS # 0.09 K/uL (0-0.5); HEMATOCRIT 30.5 % (42-52); HEMOGLOBIN 9.3 g/dL (14.0-18.0); IG# 0.14 K/uL (0.00-0.02); LYMPH % 7.8 %; LYMPH ABS # 0.78 K/uL (1.2-3.4); MEAN CORPUSCULAR HEMOGLOBIN 25.6 pg (25-34); MEAN CORPUSCULAR HGB CONC 30.5 g/dl (32-36); MEAN PLATELET VOLUME 10.6 fL (7.4-10.4); MONO % 7.4 %; MONO ABS # 0.74 K/uL (0.11-0.59); NEUT % 82.4 %; NEUT ABS # 8.23 K/uL (1.4-6.5); PLATELET COUNT 374 K/uL (130-400); RED CELL DISTRIBUTION WIDTH CV 20.8 % (11.5-14.5); RED CELL DISTRIBUTION WIDTH SD 63.1 fL (36.4-46.3); WHITE BLOOD COUNT 9.99 K/uL (4.8-10.8)
[2018-06-06 06:41] LABS: CALCIUM 8.2 mg/dl (8.5-10.1); CREATININE 1.08 mg/dl (0.60-1.40); PHOSPHORUS 2.8 mg/dl (2.5-4.9); POTASSIUM 4.1 mmol/L (3.5-5.1)
[2018-06-06 07:12] VITALS: BP 107/69; PULSE 62; TEMP 36.6; O2SAT 94
--- NOTE | 2018-06-06 07:49 | DIAGNOSTIC IMAGING REPORT ---
CHEST ONE VIEW PORTABLE CLINICAL HISTORY: Pneumonia. COMPARISON STUDY: Chest radiograph June 02, 2018. FINDINGS: Left subclavian [id number] is in place. Left upper lung airspace opacity with volume loss is unchanged. Dense right lower lung consolidation is unchanged and suggests pneumonia. There are small bilateral pleural effusions. Left basilar opacity is also noted. Cardiomediastinal silhouette is stable. IMPRESSION: 1. Persistent dense right lower lung consolidation suggestive of pneumonia. Left basilar opacity which may reflect pneumonia or atelectasis. 2. Small bilateral pleural effusions. 3. No change in appearance of the left upper lobe with volume loss and airspace opacity. Electronically signed by: Jose Prieto M.D. 06/06/2018 7:48 AM Dictated Date/Time: 06/06/2018 7:43 AM
--- NOTE | 2018-06-06 08:32 | Pharmacy Progress Note ---
Pharmacy Glycemic Short Note 2 Date of Service Jun 06, 2018. OUTPATIENT ANTIDIABETIC REGIMEN: * Metformin 1gm PO BID * Glipizide ER 2.5mg PO BID * A1c = 6.7% Item Value Date Time Bedside Glucose 134 mg/dl H 06/04/18 0412 Bedside Glucose 160 mg/dl H 06/04/18 0729 Bedside Glucose 314 mg/dl H 06/04/18 1135 Bedside Glucose 134 mg/dl H 06/04/18 1618 Bedside Glucose 172 mg/dl H 06/04/18 2026 Bedside Glucose 53 mg/dl *L 06/05/18 0701 Bedside Glucose 83 mg/dl 06/05/18 0717 Bedside Glucose 108 mg/dl H 06/05/18 1123 Bedside Glucose 48 mg/dl *L 06/05/18 1659 Bedside Glucose 50 mg/dl *L 06/05/18 1701 Bedside Glucose 142 mg/dl H 06/05/18 1803 Bedside Glucose 238 mg/dl H 06/05/18 2020 Bedside Glucose 73 mg/dl 06/06/18 0721 ASSESSMENT: * Glycemic control continues to fluctuate. * Steroids tapered to prednisone 40mg PO daily on 06/03/18. Pt continues on this dosing. * Pt with LOW BSG yesterday morning and again prior to dinner. * HS NovoLog coverage removed to prevent AM low for 06/06 * CR loosened yesterday when BSGs trending downwards --> unfortunately still had a low before dinner. * Will lower the dosing of NPH to prevent pre-dinner low today. Pt is currently receiving recommended dosing of 0.4 units/kg NPH for prednisone 40mg. Utilized this same dosing on 04/12/18 but BSGs were actually elevated. Will continue to titrate based on current BSG trends. * Loosen CF/CR as well to prevent repeat low. PLAN FOR INPATIENT GLYCEMIC CONTROL: * Basal insulin: NPH for once daily steroid induced hyperglycemia. Reduce dosing to prevent repeat low BSG * NPH 20 units (0.3 units/kg for prednisone 40mg daily) SQ daily * Hold if prednisone dose held * Bolus insulin: - remove HS coverage. Only give with meals to prevent AM hypoglycemia. Reduce CR to prevent pre-dinner low BSG * Novolog SQ ACHS * Goal 120 - 160 mg/dL * Correction factor: 20 mg/dL/unit * Carb ratio: 1 unit per 8 gm CHO consumed PLAN FOR DISCHARGE: * to be determined based on steroid taper at discharge.
[2018-06-06] MEDS: FERROUS SULFATE 325 MG TAB PO SCH ×2 (08:38→17:25)
[2018-06-06] MEDS: VORICONAZOLE 200 MG TAB PO SCH ×2 (08:38→19:51)
[2018-06-06] MEDS: BOOST GLUCOSE CONTROL VANILLA PO SCH ×3 (08:43→17:25)
[2018-06-06] MEDS: ASPIRIN 81 MG CHEW PO SCH (08:44)
[2018-06-06] MEDS: INSULIN ASPART 100 UNITS/ML 3 ML PEN SC SCH ×3 (08:51→17:28)
[2018-06-06] MEDS: INSULIN HUMAN NPH SC SCH (08:52)
[2018-06-06] MEDS: CEROVITE ADV FORMULA TAB PO SCH (09:12)
[2018-06-06] MEDS: METOPROLOL TARTRATE 25 MG TAB PO SCH ×2 (09:12→19:51)
[2018-06-06] MEDS: PANTOprazole SOD 40 MG TAB PO SCH ×2 (09:13→19:51)
[2018-06-06] MEDS: CHLORTHALIDONE 25 MG TAB PO SCH (09:13)
[2018-06-06] MEDS: LISINOPRIL 5 MG TAB PO SCH (09:13)
[2018-06-06] MEDS: MAGNESIUM OXIDE 400 MG TAB PO SCH (09:13)
[2018-06-06] MEDS: SPIRONOLACTONE 25 MG TAB PO SCH (09:13)
[2018-06-06] MEDS: ENOXAPARIN 40 MG/0.4 ML SYR SQ SCH (09:14)
--- NOTE | 2018-06-06 15:02 | Progress Note ---
Subjective Date of Service: Jun 06, 2018. Subjective Pt evaluation today including: conversation w/ patient, conversation w/ family (), physical exam, lab review, conversation w/ consultant internship, review of inpatient medication list Pain: no pain PO Intake: adequate Voiding: no voiding problems breathing continues to improve, stable on 2L at rest coughing less but still has some intermittent hemoptysis reviewed labs, WBC 9.9, Hb 9.3, Cr normal, K normal, Mag normal discussed use of Voriconazole with Dr. Loredo, no need to continue on discharge discussed discharge plan with patient and his , [facility] vs [facility] patient needs to be doing more from therapy standpoint to go to [facility], discussed with field nurse case manager Problem List Medical Problems: (1) Acute bronchitis Status: Acute (2) GHANSHYAM (acute kidney injury) Status: Acute (3) Enlarged prostate Status: Chronic (4) Epistaxis Status: Acute (5) Exertional dyspnea Status: Acute (6) Hx of cancer of lung Status: Acute (7) Hyperkalemia Status: Acute (8) Hyponatremia Status: Acute (9) Leukocytosis Status: Acute (10) Leukocytosis Status: Acute (11) Lung cancer Status: Acute (12) Multifocal pneumonia Status: Acute (13) Necrotizing pneumonia Status: Acute (14) Pneumonia Status: Acute (15) Sepsis Status: Acute (16) Sepsis Status: Acute (17) SOB (shortness of breath) Status: Acute (18) Stabbing chest pain Status: Acute (19) Substernal chest pain Status: Acute Review of Systems Constitutional: + weakness, + fatigue Respiratory: + cough, + sputum, + shortness of breath, + dyspnea on exertion, + hemoptysis Neurologic: + weakness All Other Systems: Reviewed and Negative Medications Current Inpatient Medications Medications (Trade) Dose Ordered Sig/Vianey Route Start Time Stop Time Status Last Admin Dose Admin Acetaminophen (Tylenol Tab) 650 mg Q4H PRN PO 05/26/18 15:00 06/25/18 14:59 05/27/18 05:18 650 MG Magnesium Hydroxide (Milk Of Magnesia Susp) 30 ml Q6H PRN PO 05/26/18 15:00 06/25/18 14:59 Glucose (Glucose 40% Gel) 15-30 GRAMS 15 GRAMS... UD PRN PO 05/26/18 15:00 06/25/18 14:59 Glucose (Glucose Chew Tab) 4-8 Tablets 4 Tabl... UD PRN PO 05/26/18 15:00 06/25/18 14:59 Dextrose (Dextrose 50% 50ML Syringe) 25-50ML 25ML FOR ... UD PRN IV 05/26/18 15:00 06/25/18 14:59 06/02/18 08:19 50 ML Glucagon (Glucagon Inj) 1 mg UD PRN SQ 05/26/18 15:00 06/25/18 14:59 Carbohydrates (Carbohydrates For Hypoglycemia) 15-30 GRAMS 15 grams if BSG 54-69... UD PRN PO 05/26/18 15:00 06/25/18 14:59 06/05/18 17:11 30 GM Heparin Sodium (Porcine) (Heparin 100 Unit/ml 5ml Flush) 5 ml PRN PRN IV 05/27/18 01:30 06/26/18 01:29 06/02/18 08:19 5 ML Aspirin (Aspirin Chew) 81 mg DAILY PO 05/28/18 09:00 06/27/18 08:59 06/06/18 08:44 81 MG Miscellaneous Information (Consult Glycemic Management Pharmacy) 1 ea UD PRN N/A 05/27/18 15:14 06/26/18 15:13 Heparin Sodium (Porcine) (Heparin 10 Unit/ ml 5 ml Flush) 5 ml PRN PRN FLUSH 05/28/18 00:15 06/27/18 00:14 Levalbuterol (Xopenex 1.25MG/ 3ML Neb) 1.25 mg Q4R PRN INH 05/30/18 10:45 06/29/18 10:44 06/02/18 21:28 1.25 MG Ferrous Sulfate (Feosol Tab) 325 mg BIDM PO 05/31/18 07:15 06/30/18 07:14 06/06/18 08:38 325 MG Multivitamins/ Minerals (Multivitamin W/ Minerals Tab) 1 tab QAM PO 05/31/18 09:00 06/30/18 08:59 06/06/18 09:12 1 TAB Pantoprazole Sodium (Protonix Tab) 40 mg BID PO 06/01/18 21:00 07/01/18 20:59 06/06/18 09:13 40 MG Magnesium Oxide (Mag-Ox Tab) 400 mg DAILY PO 06/02/18 09:00 07/02/18 08:59 06/06/18 09:13 400 MG Enteral Nutritional Formula (Boost Glucose Control) 1 can TIDM PO 06/01/18 16:30 07/01/18 16:29 06/06/18 11:39 1 CAN Metoprolol Tartrate (Lopressor Iv) 5 mg NOW PRN IV 06/01/18 18:15 07/01/18 18:14 06/01/18 21:17 5 MG Morphine Sulfate (MoRPHine SULFATE INJ) 2 mg Q2H PRN IV 06/01/18 18:15 06/15/18 18:14 06/02/18 02:36 2 MG Lorazepam (Ativan Inj) 0.5 mg Q4H PRN IV 06/02/18 03:00 07/02/18 02:59 06/03/18 22:43 0.5 MG Lisinopril (Zestril Tab) 5 mg QAM PO 06/02/18 09:00 07/02/18 08:59 06/06/18 09:13 5 MG Chlorthalidone (Hygroton Tab) 25 mg QAM PO 06/02/18 09:00 07/02/18 08:59 06/06/18 09:13 25 MG Spironolactone (Aldactone Tab) 25 mg QAM PO 06/04/18 09:00 07/04/18 08:59 06/06/18 09:13 25 MG Metoprolol Tartrate (Lopressor Tab) 25 mg BID PO 06/03/18 21:00 07/02/18 08:59 06/06/18 09:12 25 MG Prednisone (PredniSONE TAB) 40 mg Taper DAILY PO 06/03/18 09:00 07/08/18 08:59 06/06/18 09:30 40 MG Enoxaparin Sodium (Lovenox Inj) 40 mg QAM SQ 06/04/18 09:00 07/04/18 08:59 06/06/18 09:14 40 MG Voriconazole (Vfend Tab) 200 mg BID PO 06/04/18 09:00 08/19/18 21:01 06/06/18 08:38 200 MG Insulin Aspart (novoLOG ASPART) SLIDING SCALE AC SC 06/05/18 07:00 07/05/18 06:59 06/06/18 13:08 10 UNITS Insulin Human NPH (novoLIN-N NPH) 20 units DAILY SC 06/06/18 08:00 07/06/18 07:59 06/06/18 08:52 20 UNITS Sodium Chloride ([place]) 1 sprays PRN PRN NA 06/05/18 21:15 07/05/18 21:14 Objective Vital Signs Date Time Temp Pulse Resp B/P (MAP) Pulse Ox O2 Delivery O2 Flow Rate FiO2 06/06/18 09:00 Nasal Cannula 3.0 06/06/18 07:12 36.6 62 20 107/69 (82) 94 Nasal Cannula 2.0 06/06/18 00:30 93 Nasal Cannula 3.0 06/05/18 22:53 36.6 83 22 126/70 (88) 97 Room Air 06/05/18 16:00 Nasal Cannula 3.0 06/05/18 14:59 36.5 72 20 105/68 (80) 96 Nasal Cannula 3.5 Physical Exam General Appearance: no apparent distress, + obese Eyes: normal inspection, EOMI, sclerae normal ENT: normal ENT inspection, hearing grossly normal, pharynx normal Neck: supple, no adenopathy, no JVD, trachea midline Respiratory/Chest: chest non-tender, no respiratory distress, no accessory muscle use, + decreased breath sounds (bases), + rhonchi Cardiovascular: regular rate, rhythm, no edema, no gallop, no JVD, no murmur Abdomen: normal bowel sounds, non tender, soft, no organomegaly Extremities: normal range of motion, non-tender, normal inspection, no pedal edema, no calf tenderness, pelvis stable Neurologic/Psychiatric: copra sampler II-XII nml as tested, alert, normal mood/affect, oriented x 3, + motor weakness (generalized, cannot walk) Skin: normal color, warm/dry, no rash Laboratory Results Last 24 Hours Test 06/05/18 16:59 06/05/18 17:01 06/05/18 18:03 06/05/18 20:20 Bedside Glucose 48 mg/dl 50 mg/dl 142 mg/dl 238 mg/dl Test 06/06/18 05:44 06/06/18 07:21 06/06/18 11:29 White Blood Count 9.99 K/uL Red Blood Count 3.63 M/uL Hemoglobin 9.3 g/dL Hematocrit 30.5 % Mean Corpuscular Volume 84.0 fL Mean Corpuscular Hemoglobin 25.6 pg Mean Corpuscular Hemoglobin Concent 30.5 g/dl Platelet Count 374 K/uL Mean Platelet Volume 10.6 fL Neutrophils (%) (Auto) 82.4 % Lymphocytes (%) (Auto) 7.8 % Monocytes (%) (Auto) 7.4 % Eosinophils (%) (Auto) 0.9 % Basophils (%) (Auto) 0.1 % Neutrophils # (Auto) 8.23 K/uL Lymphocytes # (Auto) 0.78 K/uL Monocytes # (Auto) 0.74 K/uL Eosinophils # (Auto) 0.09 K/uL Basophils # (Auto) 0.01 K/uL RDW Standard Deviation 63.1 fL RDW Coefficient of Variation 20.8 % Immature Granulocyte % (Auto) 1.4 % Immature Granulocyte # (Auto) 0.14 K/uL Hypochromasia PRESENT Anisocytosis PRESENT Sodium Level 140 mmol/L Potassium Level 4.1 mmol/L Chloride Level 101 mmol/L Carbon Dioxide Level 34 mmol/L Anion Gap 5.0 mmol/L Blood Urea Nitrogen 34 mg/dl Creatinine 1.08 mg/dl Est Creatinine Clear Calc Drug Dose 50.5 ml/min Estimated GFR () 78.0 Estimated GFR (Non- 67.3 BUN/Creatinine Ratio 31.1 Random Glucose 82 mg/dl Calcium Level 8.2 mg/dl Phosphorus Level 2.8 mg/dl Magnesium Level 1.9 mg/dl Bedside Glucose 73 mg/dl 163 mg/dl Assessment and Plan 72 y/o M who was admitted on 05/26 with PNA and COPD exacerbation - Acute hypoxic respiratory failure, respiratory distress, due to pulmonary edema, acute heart failure, 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 Loredo, will continue while here but not reason to continue on discharge Scant normal cee from BAL, no growth and blood cultures discussed possible need for left upper lobe endobronchial valve with Dr. 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 Chaudhry, certainly left heart cath could be considered in the future, but patient would not be candidate for stenting, cannot tolerate DAPT due to nose bleeds - Worsening anemia, assumed blood loss, but still unclear etiology Protonix IV BID was heme positive stool in the ED transfused 3 units total, last was 05/28, Hb 9.3 again today, trending up - COPD: no evidence of exacerbation on Prednisone taper 40mg daily, down by 10mg every 7 days - DM with hyperglycemia insulin infusion, pharmacy management - H/o lung cancer had recent PET scan as outpatient, no evidence of recurrent disease per Dr. Poole, had isolated small cell lung CA, treated with chemotherapy and radiation no further work up at this time as he would not be a candidate for any type of treatment CAD: hx of SC and stents x7 Pt could not tolerate plavix (nosebleeds) and is on aspirin 81mg Holding for now given above Hyperlipidemia: continue home meds BPH: continue home meds PT/OT evaluations, planning on [facility] on discharge Continued [facility] stay due to: other (acute care continues) Discharge planning: uncertain
[2018-06-06 15:29] VITALS: BP 98/62; PULSE 70; TEMP 36.5; O2SAT 98
[2018-06-07] VITALS (8 sets, daily range): BP systolic 89–122; BP diastolic 58–81; PULSE 57–72; TEMP 36.4–36.9; O2SAT 93–100
[2018-06-07] MEDS: PANTOprazole SOD 40 MG TAB PO SCH ×2 (08:19→20:53)
[2018-06-07] MEDS: CHLORTHALIDONE 25 MG TAB PO SCH (08:20)
[2018-06-07] MEDS: CEROVITE ADV FORMULA TAB PO SCH (08:20)
[2018-06-07] MEDS: METOPROLOL TARTRATE 25 MG TAB PO SCH ×2 (08:20→20:54)
[2018-06-07] MEDS: MAGNESIUM OXIDE 400 MG TAB PO SCH (08:21)
[2018-06-07] MEDS: FERROUS SULFATE 325 MG TAB PO SCH ×2 (08:21→17:10)
[2018-06-07] MEDS: LISINOPRIL 5 MG TAB PO SCH (08:21)
[2018-06-07] MEDS: VORICONAZOLE 200 MG TAB PO SCH ×2 (08:21→20:53)
[2018-06-07] MEDS: SPIRONOLACTONE 25 MG TAB PO SCH (08:21)
[2018-06-07] MEDS: ENOXAPARIN 40 MG/0.4 ML SYR SQ SCH (08:22)
[2018-06-07] MEDS: ASPIRIN 81 MG CHEW PO SCH (08:28)
[2018-06-07] MEDS: BOOST GLUCOSE CONTROL VANILLA PO SCH ×3 (08:29→17:11)
[2018-06-07] MEDS: INSULIN ASPART 100 UNITS/ML 3 ML PEN SC SCH ×3 (08:36→17:51)
[2018-06-07] MEDS: INSULIN HUMAN NPH SC SCH (08:37)
--- NOTE | 2018-06-07 16:06 | Progress Note ---
Subjective Date of Service: Jun 07, 2018. Subjective Pt evaluation today including: conversation w/ patient, physical exam, review of inpatient medication list Pain: no pain PO Intake: adequate Voiding: no voiding problems patient resting in bed, still without strength to get out of bed, going to try to get up today with therapy no labs today continues to diurese well, breathing improving with diuresis discussed that HSNV likely too intense for him since he cannot get out of bed Problem List Medical Problems: (1) Acute bronchitis Status: Acute (2) GHANSHYAM (acute kidney injury) Status: Acute (3) Enlarged prostate Status: Chronic (4) Epistaxis Status: Acute (5) Exertional dyspnea Status: Acute (6) Hx of cancer of lung Status: Acute (7) Hyperkalemia Status: Acute (8) Hyponatremia Status: Acute (9) Leukocytosis Status: Acute (10) Leukocytosis Status: Acute (11) Lung cancer Status: Acute (12) Multifocal pneumonia Status: Acute (13) Necrotizing pneumonia Status: Acute (14) Pneumonia Status: Acute (15) Sepsis Status: Acute (16) Sepsis Status: Acute (17) SOB (shortness of breath) Status: Acute (18) Stabbing chest pain Status: Acute (19) Substernal chest pain Status: Acute Review of Systems Constitutional: + weakness, + fatigue Respiratory: + cough, + sputum, + shortness of breath Neurologic: + weakness All Other Systems: Reviewed and Negative Medications Current Inpatient Medications Medications (Trade) Dose Ordered Sig/Vianey Route Start Time Stop Time Status Last Admin Dose Admin Acetaminophen (Tylenol Tab) 650 mg Q4H PRN PO 05/26/18 15:00 06/25/18 14:59 05/27/18 05:18 650 MG Magnesium Hydroxide (Milk Of Magnesia Susp) 30 ml Q6H PRN PO 05/26/18 15:00 06/25/18 14:59 Glucose (Glucose 40% Gel) 15-30 GRAMS 15 GRAMS... UD PRN PO 05/26/18 15:00 06/25/18 14:59 Glucose (Glucose Chew Tab) 4-8 Tablets 4 Tabl... UD PRN PO 05/26/18 15:00 06/25/18 14:59 Dextrose (Dextrose 50% 50ML Syringe) 25-50ML 25ML FOR ... UD PRN IV 05/26/18 15:00 06/25/18 14:59 06/02/18 08:19 50 ML Glucagon (Glucagon Inj) 1 mg UD PRN SQ 05/26/18 15:00 06/25/18 14:59 Carbohydrates (Carbohydrates For Hypoglycemia) 15-30 GRAMS 15 grams if BSG 54-69... UD PRN PO 05/26/18 15:00 06/25/18 14:59 06/05/18 17:11 30 GM Heparin Sodium (Porcine) (Heparin 100 Unit/ml 5ml Flush) 5 ml PRN PRN IV 05/27/18 01:30 06/26/18 01:29 06/02/18 08:19 5 ML Aspirin (Aspirin Chew) 81 mg DAILY PO 05/28/18 09:00 06/27/18 08:59 06/07/18 08:28 81 MG Miscellaneous Information (Consult Glycemic Management Pharmacy) 1 ea UD PRN N/A 05/27/18 15:14 06/26/18 15:13 Heparin Sodium (Porcine) (Heparin 10 Unit/ ml 5 ml Flush) 5 ml PRN PRN FLUSH 05/28/18 00:15 06/27/18 00:14 Levalbuterol (Xopenex 1.25MG/ 3ML Neb) 1.25 mg Q4R PRN INH 05/30/18 10:45 06/29/18 10:44 06/02/18 21:28 1.25 MG Ferrous Sulfate (Feosol Tab) 325 mg BIDM PO 05/31/18 07:15 06/30/18 07:14 06/07/18 17:10 325 MG Multivitamins/ Minerals (Multivitamin W/ Minerals Tab) 1 tab QAM PO 05/31/18 09:00 06/30/18 08:59 06/07/18 08:20 1 TAB Pantoprazole Sodium (Protonix Tab) 40 mg BID PO 06/01/18 21:00 07/01/18 20:59 06/07/18 20:53 40 MG Magnesium Oxide (Mag-Ox Tab) 400 mg DAILY PO 06/02/18 09:00 07/02/18 08:59 06/07/18 08:21 400 MG Enteral Nutritional Formula (Boost Glucose Control) 1 can TIDM PO 06/01/18 16:30 07/01/18 16:29 06/07/18 17:11 1 CAN Metoprolol Tartrate (Lopressor Iv) 5 mg NOW PRN IV 06/01/18 18:15 07/01/18 18:14 06/01/18 21:17 5 MG Morphine Sulfate (MoRPHine SULFATE INJ) 2 mg Q2H PRN IV 06/01/18 18:15 06/15/18 18:14 06/02/18 02:36 2 MG Lorazepam (Ativan Inj) 0.5 mg Q4H PRN IV 06/02/18 03:00 07/02/18 02:59 06/03/18 22:43 0.5 MG Lisinopril (Zestril Tab) 5 mg QAM PO 06/02/18 09:00 07/02/18 08:59 06/07/18 08:21 5 MG Chlorthalidone (Hygroton Tab) 25 mg QAM PO 06/02/18 09:00 07/02/18 08:59 06/07/18 08:20 25 MG Spironolactone (Aldactone Tab) 25 mg QAM PO 06/04/18 09:00 07/04/18 08:59 06/07/18 08:21 25 MG Metoprolol Tartrate (Lopressor Tab) 25 mg BID PO 06/03/18 21:00 07/02/18 08:59 06/07/18 20:54 25 MG Prednisone (PredniSONE TAB) 40 mg Taper DAILY PO 06/03/18 09:00 07/08/18 08:59 06/07/18 08:20 40 MG Enoxaparin Sodium (Lovenox Inj) 40 mg QAM SQ 06/04/18 09:00 07/04/18 08:59 06/07/18 08:22 40 MG Voriconazole (Vfend Tab) 200 mg BID PO 06/04/18 09:00 08/19/18 21:01 06/07/18 20:53 200 MG Insulin Aspart (novoLOG ASPART) SLIDING SCALE AC SC 06/05/18 07:00 07/05/18 06:59 06/07/18 17:51 11 UNITS Insulin Human NPH (novoLIN-N NPH) 20 units DAILY SC 06/06/18 08:00 07/06/18 07:59 06/07/18 08:37 20 UNITS Sodium Chloride ([place] Nasal [place]) 1 sprays PRN PRN NA 06/05/18 21:15 07/05/18 21:14 Objective Vital Signs Date Time Temp Pulse Resp B/P (MAP) Pulse Ox O2 Delivery O2 Flow Rate FiO2 06/07/18 09:00 60 06/07/18 08:56 Nasal Cannula 3.0 06/07/18 07:17 36.4 57 20 122/81 (95) 100 Nasal Cannula 4.0 06/07/18 00:12 36.7 62 20 116/73 (87) 99 Room Air 06/07/18 00:00 93 Nasal Cannula 3.0 41 Physical Exam General Appearance: WD/WN, no apparent distress Eyes: normal inspection, EOMI, sclerae normal ENT: normal ENT inspection, hearing grossly normal, pharynx normal Neck: supple, no adenopathy, no JVD, trachea midline Respiratory/Chest: chest non-tender, normal breath sounds, no respiratory distress, no accessory muscle use, + decreased breath sounds, + rhonchi Cardiovascular: regular rate, rhythm, no edema, no gallop, no JVD, no murmur Abdomen: normal bowel sounds, non tender, soft, no organomegaly Extremities: normal range of motion, non-tender, normal inspection, no pedal edema, no calf tenderness, pelvis stable Neurologic/Psychiatric: cap sizer II-XII nml as tested, alert, normal mood/affect, oriented x 3, + motor weakness Skin: normal color, warm/dry, no rash Lymphatic: no adenopathy Laboratory Results Last 24 Hours Test 06/06/18 16:20 06/06/18 17:16 06/07/18 07:32 06/07/18 11:37 Bedside Glucose 368 mg/dl 286 mg/dl 83 mg/dl 153 mg/dl Assessment and Plan 72 y/o M who was admitted on 05/26 with PNA and COPD exacerbation - Acute hypoxic respiratory failure, respiratory distress, due to pulmonary edema, acute heart failure, possible aspergillus pneumonia intubated on 05/27 emergently Extubated on 05/30 CXR on 06/02 with continued infiltrate right lower and left upper lobe breathing well this morning, titrated down to 2L, no distress responded well to Voriconazole, today is day 10 d/w Dr. Loredo, will continue while here but not reason to continue on discharge Scant normal cee from BAL, no growth and blood cultures discussed possible need for left upper lobe endobronchial valve with Dr. Srivastava, he is waiting to hear from [facility], would NOT be done this admission spoke with Dr. 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 Chaudhry, certainly left heart cath could be considered in the future, but patient would not be candidate for stenting, cannot tolerate DAPT due to nose bleeds - Worsening anemia, assumed blood loss, but still unclear etiology Protonix IV BID was heme positive stool in the ED transfused 3 units total, last was 05/28, Hb 9.3 yesterday, trending up - COPD: no evidence of exacerbation on Prednisone taper 40mg daily, down by 10mg every 7 days - DM with hyperglycemia insulin infusion, pharmacy management - H/o lung cancer had recent PET scan as outpatient, no evidence of recurrent disease per Dr. Poole, had isolated small cell lung CA, treated with chemotherapy and radiation no further work up at this time as he would not be a candidate for any type of treatment CAD: hx of NC and stents x7 Pt could not tolerate plavix (nosebleeds) and is on aspirin 81mg Holding for now given above Hyperlipidemia: continue home meds BPH: continue home meds PT/OT evaluations, planning on [facility] on discharge Continued [facility] stay due to: other (acute care continues) Discharge planning: uncertain
[2018-06-08 05:32] LABS: BASO % 0.1 %; BASO ABS # 0.01 K/uL (0-0.2); EOS % 0.9 %; HEMATOCRIT 32.4 % (42-52); HEMOGLOBIN 10.1 g/dL (14.0-18.0); IG# 0.13 K/uL (0.00-0.02); LYMPH % 6.3 %; MEAN CELL VOLUME 84.4 fL (80-100); MEAN CORPUSCULAR HEMOGLOBIN 26.3 pg (25-34); MEAN CORPUSCULAR HGB CONC 31.2 g/dl (32-36); MEAN PLATELET VOLUME 10.4 fL (7.4-10.4); MONO % 7.7 %; MONO ABS # 0.85 K/uL (0.11-0.59); NEUT % 83.8 %; NEUT ABS # 9.25 K/uL (1.4-6.5); PLATELET COUNT 329 K/uL (130-400); RED CELL DISTRIBUTION WIDTH SD 64.4 fL (36.4-46.3); WHITE BLOOD COUNT 11.04 K/uL (4.8-10.8)
[2018-06-08 05:48] LABS: CALCIUM 8.3 mg/dl (8.5-10.1); CREATININE 1.01 mg/dl (0.60-1.40); POTASSIUM 4.3 mmol/L (3.5-5.1)
[2018-06-08 07:08] VITALS: BP 120/75; PULSE 82; TEMP 36.5; O2SAT 100
[2018-06-08] MEDS: VORICONAZOLE 200 MG TAB PO SCH (08:17)
[2018-06-08] MEDS: PANTOprazole SOD 40 MG TAB PO SCH (08:17)
[2018-06-08] MEDS: METOPROLOL TARTRATE 25 MG TAB PO SCH (08:17)
[2018-06-08] MEDS: FERROUS SULFATE 325 MG TAB PO SCH (08:17)
[2018-06-08] MEDS: MAGNESIUM OXIDE 400 MG TAB PO SCH (08:18)
[2018-06-08] MEDS: SPIRONOLACTONE 25 MG TAB PO SCH (08:18)
[2018-06-08] MEDS: CHLORTHALIDONE 25 MG TAB PO SCH (08:18)
[2018-06-08] MEDS: ENOXAPARIN 40 MG/0.4 ML SYR SQ SCH (08:19)
[2018-06-08] MEDS: CEROVITE ADV FORMULA TAB PO SCH (08:19)
[2018-06-08] MEDS: LISINOPRIL 5 MG TAB PO SCH (08:19)
[2018-06-08] MEDS: BOOST GLUCOSE CONTROL VANILLA PO SCH ×2 (08:25→12:37)
[2018-06-08] MEDS: ASPIRIN 81 MG CHEW PO SCH (08:25)
[2018-06-08] MEDS: INSULIN ASPART 100 UNITS/ML 3 ML PEN SC SCH ×2 (08:28→12:39)
[2018-06-08] MEDS: INSULIN HUMAN NPH SC SCH (08:28)
--- NOTE | 2018-06-08 09:55 | Surgery Progress Note ---
Subjective Date of Service: Jun 08, 2018. Pt. resting in bed without complaints of SOB at this time. Objective Vitals Date Time Temp Pulse Resp B/P (MAP) Pulse Ox O2 Delivery O2 Flow Rate FiO2 06/08/18 08:30 Nasal Cannula 4.0 Humidified Oxygen 06/08/18 07:08 36.5 82 20 120/75 (90) 100 Nasal Cannula 4.0 06/08/18 00:56 Nasal Cannula 4.0 06/07/18 23:02 36.8 61 18 118/73 (88) 99 Nasal Cannula 4.0 06/07/18 20:55 72 113/70 (84) 06/07/18 16:53 66 89/58 (68) 06/07/18 16:31 36.9 65 18 98 Nasal Cannula 4.0 06/07/18 16:30 Nasal Cannula 2.0 Physical Exam General: No distress CV: + RRR Pulmonary: + pertinent finding (decreased BS noted on left ), No accessory muscle use, No respiratory distress Neurologic: + alert & oriented x 3 Assessment & Plan 72 year old male with left lung cavitary lesion -concern noted for Aspergillus pneumonia: -pt. being treated with Voriconozole -Dr. Srivastava has discussed endobronchial valve, however felt active infection is a contraindication -upon d/c we will see back in office in 1-2 weeks with repeat CXR to discuss further management options
[2018-06-08] MEDS ORDERED: MGNO400 PO (13:32)
[2018-06-08] MEDS ORDERED: SPIR25TA6 PO (13:32)
[2018-06-08] MEDS ORDERED: ASPCH81 PO (13:32)
[2018-06-08] MEDS ORDERED: HYG25 PO (13:32)
[2018-06-08] MEDS ORDERED: NVLNI SC (13:32)
[2018-06-08] MEDS ORDERED: PANT40TA2 PO (13:32)
[2018-06-08] MEDS ORDERED: PRD10 PO (13:32)
[2018-06-08] MEDS ORDERED: LISI-730 PO (13:32)
--- NOTE | 2018-06-08 14:30 | Discharge Instructions ---
Discharge Instructions Date of Service Jun 08, 2018. Admission Reason for Admission: Suspected pneumonia, worsening anemia Discharge Discharge Diagnosis / Problem: Acute on chronic systolic heart failure, acute respiratory failure, anemia Discharge Goals Goal(s): Improve function, Increase independence, Improve disease control Activity Recommendations Activity Level: OOB In Chair, Assistance Required Therapies: Physical Therapy, Occupational Therapy Lifting Limitations: none Exercise/Sports Limitations: as tolerated Shower/Bathe: no limitations . Additional Information Patient informed of condition: Yes Advance Directives: No DNR: Yes Level of Care: Skilled (with rehab) Communicable Disease: No Prognosis: Improving Oxygen at (LPM): 4 liters [place] Catheter: No Instructions / Follow-Up Instructions / Follow-Up Medications: - CHLORTHALIDONE: added for diuresis, working well - SPIRONOLACTONE: added for heart function and diuresis, tolerating - LISINOPRIL: 5mg daily, tolerating well - PROTONIX: 40mg twice a day - MAGNESIUM OXIDE: started for consistently low magnesium - PREDNISONE: for COPD exacerbation, tapering scheduled, 30mg x 5 days, 20mg x 5 days, 10mg x 5 days - NPH INSULIN: to use while on Prednisone, use 10 units with 30mg of Prednisone , use 5 units with 20mg, none with 10mg - ASPIRIN: 81mg daily, replaced Plavix 72 y/o M who was admitted on 05/26 with PNA and COPD exacerbation - Acute hypoxic respiratory failure, respiratory distress, due to pulmonary edema, acute heart failure, possible aspergillus pneumonia intubated on 05/27 emergently Extubated on 05/30 CXR on 06/06 with continued infiltrate right lower and left upper lobe, largely unchanged since admission but breathing improved a lot main issue that seemed to cause respiratory distress was transfusion for Hb of 6.5, triggered flash pulmonary edema breathing well for several days, stable on 2-4L NC, no distress treated with Voriconazole for 10 days d/w Dr. Loredo, will continue while here but not reason to continue on discharge Scant normal cee from BAL, no growth and blood cultures discussed possible need for left upper lobe endobronchial valve with Dr. Srivastava, he is waiting to hear from [facility], would NOT be done this admission spoke with Dr. Srivastava, his office will set up follow up in 1-2 weeks - Acute systolic heart failure, acute decompensation EF low at 15-20% h/o ischemic cardiomyopathy, h/o low EF in the but most recent EF had improved earlier this year h/o seven stents, none recently (last was 2005) continue Chlorthalidone and Spironolactone which were started this admission , diuresing approximately 1 liter a day continue Toprol and Lisinopril should follow up with Dr. 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 Srivastava, thoracic surgery, in 1-2 weeks - Elevated troponin, NSTEMI type II demand ischemia due to tachycardia, respiratory distress, attempted electrocardioversion twice yesterday troponin peaked at [address] Chaudhry, certainly left heart cath could be considered in the future, but patient would not be candidate for stenting, cannot tolerate DAPT due to nose bleeds - Worsening anemia, assumed blood loss, but still unclear etiology Protonix IV BID was heme positive stool in the ED transfused 3 units total, last transfusion was 05/28, Hb steadily rising, up to 10.1 today no signs of blood loss the entire admission - COPD: treating for possible exacerbation on Prednisone taper, 30mg x 5 days, 20mg x 5 days, 10mg x 5 days - DM with hyperglycemia using NPH insulin in the morning with Prednisone, continue the next 10 days resume Glipizide and Metformin, eating well - H/o lung cancer had recent PET scan as outpatient, no evidence of recurrent disease per Dr. Poole, had isolated small cell lung CA, treated with chemotherapy and radiation no further work up at this time as he would not be a candidate for any type of treatment CAD: hx of [place] and stents x7 Pt could not tolerate plavix (nosebleeds) and is on aspirin 81mg Hyperlipidemia: continue home meds BPH: continue home meds PT/OT evaluations, planning on [facility] on discharge FOLLOW UP - physician at [facility] this week - Dr. Srivastava, thoracic surgery, in 1-2 weeks for discussion on endoscopic valve to left upper lobe - Dr. Walter, cardiology, in 2 weeks - [facility] Pulmonology, has appointment in June with Dr. Sommers for COPD Current Hospital Diet Patient's current hospital diet: Diabetes Type 2 Diet Discharge Diet Recommended Diet: AHA Diet (Heart Healthy), Diabetes Type 2 Diet Pending Studies Studies pending at discharge: no Physician Orders On Transfer POLST Discussion: Not Applicable Laboratory Results Hemoglobin A1c Test 05/28/18 04:41 Range/Units Estimated Average Glucose 146 mg/dl Hemoglobin A1c 6.7 H 4.5-5.6 % Medical Emergencies . Who to Call and When: Medical Emergencies: If at any time you feel your situation is an emergency, please call 911 immediately. . Non-Emergent Contact Non-Emergency issues call your: Primary Care Provider, Heat Regulator Call Non-Emergent contact if: you have any medication questions . . "Provider Documentation" section prepared by Christiano Woo. . Core Measure Problem Core Measures: None [place] Drug Monitoring Program Search Results: no issues identified
[2018-06-08 15:08] VITALS: BP 120/75; PULSE 82; TEMP 36.5; O2SAT 100
--- NOTE | 2018-06-09 09:15 | Discharge Summary ---
Discharge Summary Date of Service Jun 08, 2018. Discharge Summary Admission Date: May 26, 2018 at 15:07 Discharge Date: Jun 08, 2018 Discharge Disposition: intermediate facility Principal Diagnosis: Acute hypoxic respiratory failure Problems/Secondary Diagnoses: Acute on chronic systolic heart failure Anemia Possible aspergillus Chronic left upper lung lobe consolidation, cavitation Demand ischemia, type II FL H/o small cell lung CA, recent PET scan outpatient with no evidence of recurrence COPD, mild exacerbation DM, insulin dependent, hyperglycemia Immunizations: Have You Had Influenza Vaccine: Yes Influenza Vaccine Date: Jul 29, 2015 History of Tetanus Vaccine?: Unknown Tetanus Immunization Date: Nov 22, 2002 History of Pneumococcal: Unknown History of Hepatitis B Vaccine: Unknown Procedures: Intubation and ventilation Bronchoscopy Central line insertion Arterial line insertion Consultations: Critical care Pulmonology Cardiology Infectious Disease Palliative care Medication Reconciliation New Medications: Aspirin (Aspirin Low Strength) 81 Mg Chew 81 MG PO DAILY, #30 TABS 3 Refills Chlorthalidone (Chlorthalidone) 25 Mg Tab 25 MG PO QAM, #30 TAB 3 Refills Insulin Human NPH (Novolin N) 100 Units/Ml Susp 10 UNITS SC DAILY for 10 Days, #1 BOX 0 Refills give 10 units in the AM while on Prednisone 30mg, give 5 units in the AM while on 20mg Lisinopril (Lisinopril) 5 Mg Tab 5 MG PO QAM, #30 TAB 3 Refills Magnesium Oxide (Magnesium-Oxide) 400 Mg Tab 400 MG PO DAILY, #30 TAB 3 Refills Pantoprazole (Pantoprazole Sodium) 40 Mg Tab 40 MG PO BID, #60 TAB 3 Refills Prednisone (Prednisone) 10 Mg Tab 30 MG PO DAILY for 15 Days, #30 TABS 0 Refills 30mg x 5 days, 20mg x 5 days, 10mg x 5 days then stop Spironolactone (Spironolactone) 25 Mg Tab 25 MG PO QAM, #30 TAB 3 Refills Continued Medications: Ferrous Sulfate (Kp Ferrous Sulfate) 325 Mg Tab 1 TAB PO BID for 30 Days, #60 TAB 3 Refills Finasteride (Proscar) 5 Mg Tab 5 MG PO QAM, TAB Glipizide (Glipizide Er) 2.5 Mg Tab 5 MG PO QAM Glipizide (Glipizide Er) 2.5 Mg Tab 2.5 MG PO QPM for 90 Days, TAB 3 Refills Ipratropium-Albuterol (Combivent Respimat) 1 Aer Aer 1 PUFFS INH QID, INH Metformin Hcl (Glucophage) 500 Mg Tab 1000 MG PO BID, TAB Metoprolol Succ (Toprol Xl) (Toprol-Xl) 25 Mg Tabcr 25 MG PO QAM, #30 TAB Multiple Vitamins W/ Minerals (Centrum Silver Adult 50+) 1 Tab Tab 1 TAB PO QAM Simvastatin (Zocor) 40 Mg Tab 40 MG PO QPM, TAB Discontinued Medications: Amoxicillin & Pot Clavulanate (Augmentin 875-125 mg) 1 Tab Tab 1 TAB PO BID, #14 TAB Discharge Exam Patient breathing well on day of discharge, no cough. Continued to diurese well with Aldactone and Chlorthalidone. Dawson removed, able to urinate. Long discussion with patient and his at the bedside. Patient certainly needs rehab, he is motivated to get stronger, was independent prior to this admission. He understands the importance of close follow up with his specialists over the next few weeks. Review of Systems: Constitutional: + weight loss, + weakness, No fever, No chills, No sweats, No fatigue Eyes: No worsening of vision, No eye pain, No redness, No discharge, No diplopia, No problem reported ENT: No hearing loss, No unusual epistaxis, No nasal symptoms, No sore throat, No tinnitus, No dental problems, No trouble swallowing, No problem reported Respiratory: + cough, + dyspnea on exertion, No sputum, No wheezing, No shortness of breath, No dyspnea at rest, No hemoptysis, No problem reported Cardiovascular: No chest pain, No orthopnea, No PND, No edema, No claudication, No palpitations, No problem reported Abdomen: No pain, No nausea, No vomiting, No diarrhea, No constipation, No GI bleeding, No problem reported Musculoskeletal: No joint pain, No muscle pain, No swelling, No calf pain, No problem reported Genitourinary - Male: No hematuria, No dysuria, No urinary frequency, No urinary urgency Neurologic: + weakness, No memory loss, No paralysis, No numbness/tingling, No vertigo, No balance problems, No problem reported Psychiatric: No depression symptoms, No anhedonism, No anxiety, No insomnia , No substance abuse, No problem reported Endocrine: No fatigue, No excessive thirst, No excessive urination, No problem reported Hematologic / Lymphatic: No abnormal bleeding/bruising, No clotting problems , No swollen lymph nodes, No night sweats, No problem reported Integumentary: No rash, No itch, No new/changing skin lesions, No color change, No bleeding, No problem reported Physical Exam: General Appearance: no apparent distress, + thin Eyes: normal inspection, EOMI, sclerae normal ENT: normal ENT inspection, hearing grossly normal, pharynx normal Neck: supple, no adenopathy, no JVD, trachea midline Respiratory/Chest: chest non-tender, no respiratory distress, no accessory muscle use, + decreased breath sounds, + crackles (right base), + rhonchi (left upper lobe, chronic) Cardiovascular: regular rate, rhythm, no edema, no gallop, no JVD, no murmur , normal peripheral pulses Abdomen / GI: normal bowel sounds, non tender, soft, no organomegaly Extremities: normal inspection, no calf tenderness, normal capillary refill , no pedal edema, normal range of motion, pelvis stable 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, no motor/sensory deficits , alert, normal mood/affect, normal reflexes, oriented x 3 Skin: normal color, warm/dry, no rash Hospital Course 72 y/o M who was admitted on 05/26 with PNA and COPD exacerbation - Acute hypoxic respiratory failure, respiratory distress, due to pulmonary edema, acute heart failure, possible aspergillus pneumonia intubated on 05/27 emergently Extubated on 05/30 CXR on 06/06 with continued infiltrate right lower and left upper lobe, largely unchanged since admission but breathing improved a lot main issue that seemed to cause respiratory distress was transfusion for Hb of 6.5, triggered flash pulmonary edema breathing well for several days, stable on 2-4L NC, no distress treated with Voriconazole for 10 days d/w Dr. Loredo, will continue while here but not reason to continue on discharge Scant normal cee from BAL, no growth and blood cultures discussed possible need for left upper lobe endobronchial valve with Dr. Srivastava, he is waiting to hear from [facility], would NOT be done this admission spoke with Dr. Srivastava, his office will set up follow up in 1-2 weeks - Acute systolic heart failure, acute decompensation -- euvolemic at time of discharge, no evidence of pulmonary edema EF low at 15-20% h/o ischemic cardiomyopathy, h/o low EF in the 's but most recent EF had improved earlier this year h/o seven stents, none recently (last was 2005) continue Chlorthalidone and Spironolactone which were started this admission , diuresing approximately 1 liter a day continue Toprol and Lisinopril should follow up with Dr. 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 Srivastava, thoracic surgery, in 1-2 weeks - Elevated troponin, NSTEMI type II demand ischemia due to tachycardia, respiratory distress, attempted electrocardioversion twice on 05/27 troponin peaked at [address] Chaudhry, certainly left heart cath could be considered in the future, but patient would not be candidate for stenting, cannot tolerate DAPT due to nose bleeds - Worsening anemia, assumed blood loss, but still unclear etiology Protonix IV BID was heme positive stool in the ED transfused 3 units total, last transfusion was 05/28, Hb steadily rising, up to 10.1 on day of discharge no signs of blood loss the entire admission continue Protonix - COPD: treating for possible exacerbation on Prednisone taper, 30mg x 5 days, 20mg x 5 days, 10mg x 5 days - DM with hyperglycemia using NPH insulin in the morning with Prednisone, continue the next 10 days resume Glipizide and Metformin, eating well - H/o lung cancer had recent PET scan as outpatient, no evidence of recurrent disease per Dr. Poole, had isolated small cell lung CA, treated with chemotherapy and radiation no further work up at this time as he would not be a candidate for any type of treatment CAD: hx of FL and stents x7 Pt could not tolerate plavix (nosebleeds) and is on aspirin 81mg Hyperlipidemia: continue home meds BPH: continue home meds PT/OT evaluations, planning on [facility] on discharge Total Time Spent: Greater than 30 minutes This includes examination of the patient, discharge planning, medication reconciliation, and communication with other providers. Discharge Instructions Please refer to the electronic Patient Visit Report (Discharge Instructions) for additional information. Follow-Up FOLLOW UP - physician at [facility] this week - Dr. Srivastava, thoracic surgery, in 1-2 weeks for discussion on endoscopic valve to left upper lobe - Dr. Walter, cardiology, in 2 weeks - [facility] Pulmonology, has appointment in June with Dr. Sommers for COPD Additional Copies To Marybel Najera; Dom Walter M.D.; Chilo Sommers MD; Aguilar Srivastava MD
== END 2018-06-08 16:05 | DRG 208 ==
LOC: C.EDB 10:52 → C.4E 15:07 → EDBEDREQSVC 15:30 → EDBEDREQ 15:30 → ENRESERV 15:41 → C.MSICU 05-27 11:40 → ENRESERV 05-27 11:52 → EDBEDREQ 05-27 11:52 → ENRESERV 06-01 08:41 → CANRESERV 06-01 08:41 → ENRESERV 06-01 09:09 → CANRESERV 06-01 09:09 → CANBEDREQ 06-01 09:43 → ENRESERV 06-03 19:28 → C.2T 06-03 20:04 → ENRESERV 06-05 13:29 → C.4E 06-05 14:14
PROVIDERS: ADMIT Family Medicine; ATTEND Internal Medicine
PROC: 5A1945Z Respiratory Ventilation, 24-96 Consecutive Hours (ICD-10-PCS; principal; 2018-05-27)
PROC: 05HM33Z Insertion of Infusion Device into Right Internal Jugular Vein, Percutaneous Approach (ICD-10-PCS; 2018-05-27)
PROC: 03HB33Z Insertion of Infusion Device into Right Radial Artery, Percutaneous Approach (ICD-10-PCS; 2018-05-27)
PROC: 0BJ08ZZ Inspection of Tracheobronchial Tree, Via Natural or Artificial Opening Endoscopic (ICD-10-PCS; 2018-05-27)
PROC: 5A2204Z Restoration of Cardiac Rhythm, Single (ICD-10-PCS; 2018-05-27)
DX: J18.9 Pneumonia, unspecified organism (principal); J96.01 Acute respiratory failure with hypoxia; J81.0 Acute pulmonary edema; I50.23 Acute on chronic systolic (congestive) heart failure; I21.4 Non-ST elevation (NSTEMI) myocardial infarction; J44.0 Chronic obstructive pulmonary disease with (acute) lower respiratory infection; Z51.5 Encounter for palliative care; J44.1 Chronic obstructive pulmonary disease with (acute) exacerbation; E87.1 Hypo-osmolality and hyponatremia; R04.89 Hemorrhage from other sites in respiratory passages; I24.8 Other forms of acute ischemic heart disease; Z82.49 Family history of ischemic heart disease and other diseases of the circulatory system; Z87.891 Personal history of nicotine dependence; I10 Essential (primary) hypertension; E11.9 Type 2 diabetes mellitus without complications; I25.10 Atherosclerotic heart disease of native coronary artery without angina pectoris; I25.2 Old myocardial infarction; Z95.5 Presence of coronary angioplasty implant and graft; E78.5 Hyperlipidemia, unspecified; E11.65 Type 2 diabetes mellitus with hyperglycemia; Z85.118 Personal history of other malignant neoplasm of bronchus and lung; D50.0 Iron deficiency anemia secondary to blood loss (chronic)

== ENCOUNTER 2018-10-14 03:30 | Inpatient (IN) ==
[2018-10-14] MEDS ORDERED: RAPID SEQUENCE INDUCTION BAG ONE (03:35)
[2018-10-14] MEDS ORDERED: MIDAZOLAM HCL 5 MG/ML 1 ML VIAL IV STA ×2 (03:59→04:25)
[2018-10-14] MEDS ORDERED: ETOMIDATE 2 MG/ML 20 ML VIAL IV ONE ×2 (03:59→09:28)
[2018-10-14] MEDS ORDERED: fentaNYL citrate 100 MCG/2 ML VIAL IV ONE (03:59)
[2018-10-14] MEDS ORDERED: SUCCINYLCHOLINE CHLORIDE 20 MG/ML 10 ML VIAL IV STA (03:59)
[2018-10-14 04:08] LABS: Basophils # (auto) 0.04 K/uL (0-0.2); Basophils % (auto) 0.2 %; Eosinophils # (auto) 0.57 K/uL (0-0.5); Eosinophils % (auto) 3.4 %; Hematocrit (blood only) 33.5 % (42-52); Hemoglobin 10.7 g/dL (14.0-18.0); Immature Granulocytes # (auto) 0.46 K/uL (0.00-0.02); Immature Granulocytes % (auto) 2.7 %; Lymphocytes # (auto) 4.57 K/uL (1.2-3.4); Lymphocytes % (auto) 27.3 %; Mean Corpuscular Hgb Conc 31.9 g/dL (32-36); Mean Corpuscular Volume 86.3 fL (80-100); Mean Platelet Volume 10.1 fL (7.4-10.4); Monocytes # (auto) 1.49 K/uL (0.11-0.59); Monocytes % (auto) 8.9 %; Neutrophils # (auto) 9.64 K/uL (1.4-6.5); Neutrophils % (auto) 57.5 %; Platelet Count 533 K/uL (130-400); RDW Coefficient of Variation 18.5 % (11.5-14.5); RDW Standard Deviation 58.6 fL (36.4-46.3); Red Blood Count 3.88 M/uL (4.7-6.1); White Blood Count 16.77 K/uL (4.8-10.8)
[2018-10-14 04:13] LABS: INR 1.1 (0.9-1.1); Partial Thromboplastin Ratio 1.2; Partial Thromboplastin Time 31.2 Seconds (21.0-31.0); Prothrombin Time 10.9 Seconds (9.0-12.0)
[2018-10-14] MEDS ORDERED: MIDAZOLAM HCL 1 MG/ML 2ML VIAL ONE (04:15)
[2018-10-14] MEDS ORDERED: fentaNYL citrate 100 MCG/2 ML VIAL ONE (04:15)
[2018-10-14] MEDS ORDERED: HEPARIN (PORCINE) 1000 UNIT/ML 10 ML (CATH LAB USE ONLY) ONE (04:15)
[2018-10-14] MEDS ORDERED: NiCARDipine HCL INJ 2.5 MG/ML 10 ML AMP ONE (04:16)
[2018-10-14] MEDS ORDERED: NITROGLYCERIN/D5W 100MCG/ML 20ML SYR ONE (04:18)
[2018-10-14 04:19] LABS: Alanine Aminotransferase 38 U/L (12-78); Albumin Level 2.6 gm/dl (3.4-5.0); Aspartate Aminotransferase 31 U/L (15-37); BUN Creatinine Ratio 26.1 (10-20); Blood Urea Nitrogen 36 mg/dl (7-18); Calcium 8.9 mg/dl (8.5-10.1); Carbon Dioxide 22 mmol/L (21-32); Chloride 101 mmol/L (98-107); Creatinine Clr Calc Pharmacy 37.1 ml/min; Glucose 289 mg/dl (70-99); Potassium 4.2 mmol/L (3.5-5.1); Sodium 133 mmol/L (136-145)
[2018-10-14 04:24] LABS: Albumin Globulin Ratio 0.5 (0.9-2); Alkaline Phosphatase 324 U/L (45-117); Bilirubin,Total 0.2 mg/dl (0.1-1); Globulin 5.6 gm/dl (2.5-4.0); Total Protein 8.2 gm/dl (6.4-8.2); Troponin I < 0.015 ng/ml (0-0.045)
[2018-10-14] MEDS ORDERED: SODIUM BICARB 8.4% INJ 50 MEQ/50 ML SYR ONE ×2 (04:51→05:31)
[2018-10-14] MEDS ORDERED: SODIUM CHLORIDE 0.9% 1000ML 1,000 ML IV SCH (05:30)
[2018-10-14] MEDS ORDERED: OPTIRAY 320 125ml IV PRN (05:36)
[2018-10-14] MEDS ORDERED: ICU PROTOCOL FOR HYPERGLYCEMIA PRN ×3 (05:39→06:36)
[2018-10-14 05:44] LABS: iSTAT Arterial Blood Gas HCO3 23 meg/L (19-24); iSTAT Carbon Dioxide 25 mEq/l (24-31)
[2018-10-14 05:44] LABS: iSTAT Arterial Blood Gas HCO3 18 meg/L (19-24); iSTAT Carbon Dioxide 20 mEq/l (24-31)
[2018-10-14] MEDS ORDERED: VANCOMYCIN HCL 1,000 MG in SODIUM CHLORIDE 0.9% 500 ML IV ONE (05:47)
[2018-10-14] MEDS ORDERED: PIPERACILLIN/TAZOBACTAM 4.5 GM in DEXTROSE 5% 100 ML IV STA (05:47)
[2018-10-14] MEDS ORDERED: VANCOMYCIN CONSULT ACTIVE PRN (05:47)
[2018-10-14] MEDS ORDERED: PIPERACILL/TAZOBAC CONSULT ACTIVE PRN (05:47)
[2018-10-14] MEDS ORDERED: MIDAZOLAM HCL 125 MG/250 ML BAG IV STA (05:50)
[2018-10-14] MEDS ORDERED: SODIUM CHLORIDE 0.9% 500 ML IV ONE (06:04)
--- NOTE | 2018-10-14 06:05 | XRay Report ---
XR chest 1V portable HISTORY: 72 years-old Male s/p intubation acute respiratory failure COMPARISON: Chest radiograph 10/14/2018, CTA chest 10/14/2018 TECHNIQUE: Portable AP view of the chest FINDINGS: Cardiac silhouette is enlarged, unchanged. Endotracheal tube overlies the midline, 6.0 cm superior to the manav. Left subclavian [id number] catheter is unchanged. Severe emphysema with areas of inte rstitial coarsening redemonstrated. Bullous emphysematous changes of the right lung apex. Cavitary fo cus of the left lung apex is better seen on comparison CTA of the chest. Multifocal bilateral alveola r opacities with trace bilateral pleural effusions, unchanged from comparison. Bones of the chest joanna ear grossly intact. IMPRESSION: 1. Cardiomegaly with bilateral mixed interstitial and alveolar opacities suggesting pulmonary edema w ith atelectasis or pneumonitis. 2. Trace bilateral pleural effusions. 3. Severe bullous emphysema with chronic interstitial coarsening. 4. Cavitary focus of the left lung apex redemonstrated. The above report was generated using voice recognition software. It may contain grammatical, syntax o r spelling errors. Electronically signed by: Tom Maguire M.D. 10/14/2018 6:03 AM
[2018-10-14] MEDS ORDERED: methylPREDNISolone 80 MG in SYRINGE 0 ML IV STA (06:06)
--- NOTE | 2018-10-14 06:07 | XRay Report ---
XR chest 1V portable HISTORY: 72 years-old Male Respiratory distress/lung cancer acute respiratory distress with history of lung cancer. COMPARISON: Chest radiographs 10/02/2018 and chest radiograph 10/14/2018 at 3:41 AM, CTA chest 2017 TECHNIQUE: Portable AP view of the chest FINDINGS: Cardiac silhouette is enlarged, unchanged. Left subclavian [id number] catheter is unchanged. Sever e emphysema with areas of interstitial coarsening redemonstrated. Bullous emphysematous changes of th e right lung apex. Cavitary focus of the left lung apex is better seen on comparison CTA of the chest . Multifocal bilateral alveolar opacities with trace bilateral pleural effusions, unchanged from comp arison. Bones of the chest appear grossly intact. IMPRESSION: 1. Cardiomegaly with bilateral mixed interstitial and alveolar opacities suggesting pulmonary edema w ith atelectasis or pneumonitis. 2. Trace bilateral pleural effusions. 3. Severe bullous emphysema with chronic interstitial coarsening. 4. Cavitary focus of the left lung apex redemonstrated. The above report was generated using voice recognition software. It may contain grammatical, syntax o r spelling errors. Electronically signed by: Tom Maguire M.D. 10/14/2018 6:06 AM
[2018-10-14] MEDS ORDERED: VANCOMYCIN HCL 1,250 MG in SODIUM CHLORIDE 0.9% 250 ML IV SCH (06:30)
[2018-10-14] MEDS ORDERED: PIPERACILLIN/TAZOBACTAM 3.375 GM in DEXTROSE 5% 100 ML IV ONE (06:30)
[2018-10-14 07:21] LABS: Appearance Urine Clear (Clear); Bilirubin Urine Negative (Negative); Color Urine Yellow; Epithelial Cell Urine Auto >30 /lpf (0-5); Glucose Urine UA Negative (Negative); Ketones Urine Negative (Negative); Leukocyte Esterase Urine Negative (Negative); Nitrite Urine Negative (Negative); Protein Urine 1+ (Negative); Specific Gravity Urine > 1.045 (1.000-1.030); Urobilinogen Urine Negative (Negative)
--- NOTE | 2018-10-14 07:26 | Critical Care Consultation ---
Date of Consultation October 14, 2018 Assessment & Plan (1) Admitted to intensive care unit: Reason Critically Ill: 72-year-old male with acute hypoxic respiratory failure with hypercapnia in the setting of diffuse multifocal pneumonia with subsequent development of STEMI status post PTCA with clear coronary arteries. NEURO - * CAM ICU: POSITIVE * Sedation: Versed/Fentanyl CARDIAC/VASCULAR - * Concerns for acute STEMI w/ initial findings on EKG: * Heart alert. Status post PTCA. * Chronically occluded diagonal w/ patent LAD and multiple previous stents noted. * Interventionalist not immediately concerned w/ acute coronary event. * EKG: Sinus tachycardia w/ ST segment elevations in V1-[address] depression. QTc 466 * Will trend troponins. * Possibly a demand pattern in the setting of PNA/Respiratory failure w/ hypoxia. * Appreciate cardiology consultation. * Monitor on telemetry. RESPIRATORY - * Acute Hypoxic Respiratory Failure w/ Hypercapnea: * Likely 2/2 multifocal PNA seen on CXR and CTA. * Intubated and vent managed. * Vanc, Zosyn, voriconazole. * h/o Aspergillus to the CHATA cavitative lesion. * Addition of steroids. * Single dose of Lasix. GI/NUTRITION - * NPO * Prophylaxis: Protonix RENAL/LYTES - * GHANSHYAM on CKD s/p contrast load x2: * Initially received IVF. * Will need to monitor closely in the setting of ??contributing failure pattern. - * Dawson in place - Strict I&Os. ENDO - * DMII: * BSGs per unit protocol. ISS --> gtt per unit policy. HEME - * h/o chronic anemia: * Will trend H&H. * Transfuse as needed. ID - * Multifocal Pneumonia: * Vanc/Zosyn instituted. * Will continue w/ Voriconazole IV for h/o Aspergillus. * Check Lactate, trend. * Check ProCal. LINES/IV ACCESS - * PIVs x2 * LEFT sided Aport * Dawson * ET Tube DVT PROPHYLAXIS - * Will hold 2/2 recent intervention. May consider adding heparin gtt pending troponin progression. I have personally spent 80 minutes of critical care time in the direct management of this patient. This is a life/limb threatening event. This includes time spent evaluating patient, direct bedside care, chart review, placing orders, interpretation of diagnostic studies, discussion with consultants, patient, and family members, as well as other required patient management activities. This time is exclusive of all separately billable procedures, and teaching time and separate from and in addition to any other critical care service time. Thank you for allowing us to participate in the care of this patient. Please refer to my attending physician's documentation for any further recommendations. The patient was seen, examined independently, agree with the assessment and plan of my colleague Mauricio Wiley PA-C. Is a 72-year-old gentleman known to me from the past with history of non-small cell lung CA, completed his treatment with chemotherapy and radiation, left upper lobe cavity that has been persistent and treated empirically for aspergillosis, has been maintained on voriconazole, the patient presented to the hospital with increasing shortness of breath and hypoxia in addition to hypercapnia. The patient did have EKG changes and heart alert was called patient went for PCI and did not require reperfusion therapy. The patient remains intubated for acute on chronic hypercapnic respiratory failure and transferred to the ICU for further management. In the ICU, review of system was not obtainable as the patient was intubated and sedated, information obtained from the daughter and who were at the bedside. The patient did have hemoptysis apparently, he did have increasing shortness of breath, no nausea or vomiting was reported, no abdominal pain no diarrhea. Neurologically he was altered due to change in mental status due to respiratory distress. His past medical history as mentioned above in the body of the H&P. Family history is not contributing, he is ex-smoker quit over 6 years ago, and surgical history consistent with thoracotomy in the past. His physical exam revealed elderly gentleman, currently intubated, vital signs remained stable, S1-S2 regular rate and rhythm tachycardic, lungs with distant breath sounds, no wheezing, abdomen is benign, no edema, cachexia. His labs were reviewed which showed elevated WBC, BUN/creatinine has been stable , slight elevation in the troponin. Chest x-ray and a CAT scan of the chest showed significant emphysematous changes , left upper lobe cavity, multiple areas of consolidation mainly in the right lower lobe, minimal lymphadenopathy. Severe COPD changes. Impression: 1. Acute on chronic hypercapnic and hypoxic respiratory failure. Requiring intubation. 2. COPD, likely with exacerbation. 3. Multilobar pneumonia, etiology is pending. 4. History of non-small cell lung CA, in remission. 5. Left upper lobe cavity, has been a nidus for infection. 6. Hemoptysis related to left upper lobe cavity. 7. History of coronary artery disease, likely he had non-ST elevation CO type II. 8. Type 2 diabetes. 9. History of pulmonary aspergillosis, treated with voriconazole. Plan: 1. We will continue with ventilator management. 2. Repeat the ABG. 3. Agree with current antibiotics including vancomycin, Zosyn and voriconazole. 4. Bronchoscopy was done at the bedside, dictated separately, blood-tinged thick secretions was removed mainly from the right lower lobe and left upper lobe. And sent for cytology, microbiology, fungal and Gram stain. 5. VAP bundle. 6. Glucose control. 7. Weaning trial from the ventilator. 8. DVT and GI prophylaxis. 9. Core measures for ICU management has been met. 10. Discussion with the family including the and the daughter at the bedside at length, plan and diagnosis as well as prognosis all discussed in details. All questions been answered. 11. Discussed with the staff at the bedside on rounds. 12. Continue with Solu-Medrol given his advanced COPD. 13. Discontinue metformin and glipizide. 14. Awaiting the results from the bronchoscopy. 15. We will plan on quick extubation to avoid prolonged ventilation in this patient with advanced COPD. Critical care time spent with the patient was 60 minutes excluding procedure time. (2) Respiratory failure with hypoxia and hypercapnia: (3) Multifocal pneumonia: (4) ST elevation (STEMI) myocardial infarction: (5) Cavitary lesion of lung: (6) Respiratory acidosis: History of Present Illness Attending Physician: Jose Antonio Curry MD History of present illness limited secondary to patient's current state of intubation with sedation. Patient is an unfortunate 72-year-old male with a significant past medical history of lung CA status post chemotherapeutic and radiation treatments who has had complications most recently including multiple rounds of recurrent pneumonia. Of which, the patient recently did have a LEFT upper lobe infection consistent with Aspergillus pneumonia. He has been on outpatient voriconazole for this. Apparently, the patient had been at his baseline, however the does admit that he is complained of some shortness of breath over the last few days. At approximately 2:30 AM, the patient awoke with a sudden onset of shortness of breath. He requested ambulance transfer. In the emergency department, the patient was found to be acutely hypoxic and acidotic. He was intubated for airway protection and respiratory management. EKG was concerning for acute STEMI. Heart alert was called and the patient underwent emergent PTCA. Per recharger, the patient was found to have a chronically occluded diagonal vessel and patent LAD vessel. Overall, he felt as though this presentation was more consistent with cardiac strain pattern versus acute coronary process. CTA of the chest was obtained to rule out underlying PE diagnosis versus worsening pneumonia/CHF. Upon arrival in the ICU, the patient is intubated and sedated. He is tachycardic and tachypneic. He remains intubated on 100% FiO2. Allergies Allergy/AdvReac Type Severity Reaction Status Date / Time No Known Allergies Allergy Verified 10/14/18 04:23 Home Medications Home Medications Medication Instructions Recorded Confirmed Type ferrous sulfate 325 mg PO Q12 09/17/18 10/14/18 History finasteride 5 mg PO QAM 09/17/18 10/14/18 History glipizide 5 mg PO QAM 09/17/18 10/14/18 History magnesium oxide 400 mg PO QAM 09/17/18 10/14/18 History metformin 1,000 mg PO BID 09/17/18 10/14/18 History metoprolol succinate 25 mg PO QAM 09/17/18 10/14/18 History multivitamin with minerals 1 tab PO DAILY 09/17/18 10/14/18 History [Multiple Vitamin-Minerals] pantoprazole 40 mg PO DAILY 09/17/18 10/14/18 History spironolactone 25 mg PO Q OTHER DAY 09/17/18 10/14/18 History voriconazole 200 mg PO BID 30 Days #60 tab 09/19/18 10/14/18 Rx aspirin 81 mg PO QAM 10/14/18 10/14/18 History Patient History Medical History CO (myocardial infarction) (Resolved) Small cell lung cancer (Acute 01/27/16) "DIAGNOSIS: Lung, CHATA, small cell lung carcinoma, [id number], stage IIIA TREATMENT: 1. Status post completion of combined radiation and chemotherapy. Radiation completed 05/02/2016 received 7000 cGy 2. 2 addition cycles of cisplatin/etoposide - Dr. Jeffery Ash" On 05/09/16 13:18 Beatris Curiel wrote "DIAGNOSIS: Lung, CHATA, small cell lung carcinoma, [id number], stage IIIA, limited stage Status post completion of combined radiation and chemotherapy. Radiation completed 05/02/2016 received 7000 cGy" On 05/09/16 12:53 Beatris Curiel wrote "DIAGNOSIS: Lung, CHATA, small cell lung carcinoma, [id number], stage IIIA, limited stage Status post completion of combined radiation and chemotherapy. Radiation completed 05/01/2016 received 7000 cGy" On 02/23/16 13:12 Jacinta Poole wrote "DIAGNOSIS: Lung, CHATA, small cell lung carcinoma, [id number], stage IIIA, limited stage" CAD (coronary artery disease) PVD (peripheral vascular disease) Hx of myocardial infarction HTN (hypertension) BPH (benign prostatic hyperplasia) HLD (hyperlipidemia) Anemia CKD stage 3 due to type 2 diabetes mellitus COPD (chronic obstructive pulmonary disease) DM II (diabetes mellitus, type II), controlled Consolidation lung Left upper lobe pneumonia Pneumonia Surgical History History of heart artery stent (Chronic) Family History Other Diabetes Heart disease Social History marital status: Current Living Situation: Spouse current occupational status: retired Feels Safe at Home: Yes Smoking Status: Never smoker Hx Alcohol Use: No Hx Substance Use: No Beliefs That Will Affect Care: None Communication Ability: intubated Review of Systems Unable to obtain secondary to current status. Physical Exam 2 Vital Signs (Past 24 Hours): Last Vital Signs Temp 36.7 C 10/14/18 05:53 Pulse 136 H 10/14/18 07:01 Resp 29 H 10/14/18 05:53 BP 119/85 10/14/18 07:01 Pulse Ox 100 10/14/18 07:01 Physical Exam: VITAL SIGNS - Vital signs and nursing notes were reviewed. GENERAL - 72-year-old male appearing his stated age who is in moderate distress. Intubated and sedated. HEAD - NC/AT. EYES - PERRL with EOMI bilaterally. Sclera anicteric. EARS - No deformities of external structures noted on gross examination bilaterally. NOSE - Midline and without cyanosis. No epistaxis or purulent drainage noted. MOUTH/OROPHARYNX - Without perioral cyanosis. Intubated. NECK - Neck with FROM. Supple to palpation. LUNGS - Chest wall symmetric without accessory muscle use, intercostals retractions, or central cyanosis. Coarse breath sounds appreciated to the bilateral inferior lung watts with occasional rales appreciated as well. CARDIAC - tachycardic. No murmur, rubs, or gallops appreciated. ABDOMEN - Abdominal contour scaphoid without pulsations or visible masses. BS normoactive all four quadrants. No tenderness, palpable masses, hepatosplenomegaly, or ascites noted. EXTREMITIES - No clubbing or peripheral cyanosis. No pretibial edema present. +3/5 radial and dorsalis pedis pulses palpated throughout. NEUROLOGIC - Unable to assess secondary to current state of sedation. No focal deficits appreciated, however. Results & Data Diagnostic Findings Radiology imaging and reports were reviewed by myself. Radiologist's interpretations are as follows: CT angio chest PE protocol CT DOSE: 328.12 mGy.cm HISTORY: 72 years-old Male with c/o PE. Acute shortness of breath TECHNIQUE: Multiple CTA images of the chest were obtained after the intravenous administration of 78 ml Optiray 320. Coronal and sagittal MIPS were obtained from the axial data set and were submitted for review. All measurements were obtained according to NASCET criteria. A dose lowering technique was utilized adhering to the principles of ALARA. COMPARISON: CTA chest 09/17/2018, CT chest 08/01/2018. FINDINGS: CTA: Moderate multichamber cardiac enlargement with trace pericardial effusion. Extensive three-vessel distribution of coronary arterial calcifications also noted. Moderate mixed plaque formation about the thoracic aorta. Patency of the imaged great vessels. Pulmonary arterial tree is opacified to the level of the subsegmental branches. Distal segmental and subsegmental branches however are suboptimal visualized secondary to respiratory motion at the lung bases. No focal filling defects identified to suggest pulmonary thromboembolic disease. Reflux of contrast into the IVC. Left subclavian [id number] catheter is noted with distal tip terminating in the inferior aspect of the and SVC. CT CHEST: No dominant thyroid nodule. No new adenopathy identified. Left hilar lymph nodes measure up to 1.2 x 1.1 cm. Trace bilateral pleural effusions. Severe bullous emphysema. No pneumothorax. Bilateral bronchovascular bundle and intralobular septal thickening compatible with pulmonary edema. Additionally, there are multifocal alveolar and groundglass opacities of the bilateral lungs which have progressively worsened from comparison CT. Cavitary focus of the left upper lung, 3.8 x 2.7 x 8.0 cm, previously measured 4.9 x 2.2 x 9.2 cm and again demonstrates internal layering fluid with thick irregular ashley indicating with the left upper lobe tracheobronchial tree. The degree of fluid within the cavitary focus has slightly increased from comparison. Postoperative changes from prior left upper lobectomy. Compensatory hyperinflation of the right lung. No acute process of the imaged upper abdomen. Soft tissues are within normal limits. Bones appear intact. No suspicious lytic or blastic bony lesions. IMPRESSION: 1. Cardiomegaly with pulmonary edema and trace bilateral pleural effusions. 2. Additional multifocal alveolar and groundglass opacities throughout the bilateral lungs suggest alveolar pulmonary edema with pneumonia or aspiration pneumonitis also considered. 3. Severe bullous emphysema with chronic fibrotic changes. 4. Prior left upper lobectomy with chronic cavitary focus of the left upper lung communicating with the left tracheobronchial tree. 5. Additional findings as above. The above report was generated using voice recognition software. It may contain grammatical, syntax or spelling errors. _ (1) ST elevation (STEMI) myocardial infarction Involved coronary artery: unspecified coronary artery Qualified Code(s): I21.3 - ST elevation (STEMI) myocardial infarction of unspecified site
[2018-10-14 07:29] LABS: Bacteria Urine Automated 1+ (Negative)
[2018-10-14] MEDS ORDERED: FUROSEMIDE 40 MG in SYRINGE 0 ML IV STA (07:29)
--- NOTE | 2018-10-14 07:42 | CT Scan Report ---
CT angio chest PE protocol CT DOSE: 328.12 mGy.cm HISTORY: 72 years-old Male with c/o PE. Acute shortness of breath TECHNIQUE: Multiple CTA images of the chest were obtained after the intravenous administration of 78 ml Optiray 320. Coronal and sagittal MIPS were obtained from the axial data set and were submitted f or review. All measurements were obtained according to NASCET criteria. A dose lowering technique wa s utilized adhering to the principles of ALARA. COMPARISON: CTA chest 09/17/2018, CT chest 08/01/2018. FINDINGS: CTA: Moderate multichamber cardiac enlargement with trace pericardial effusion. Extensive three-vessel dis tribution of coronary arterial calcifications also noted. Moderate mixed plaque formation about the t horacic aorta. Patency of the imaged great vessels. Pulmonary arterial tree is opacified to the level of the subsegmental branches. Distal segmental and subsegmental branches however are suboptimal visu alized secondary to respiratory motion at the lung bases. No focal filling defects identified to sugg est pulmonary thromboembolic disease. Reflux of contrast into the IVC. Left subclavian [id number] catheter is noted with distal tip terminating in the inferior aspect of the and SVC. CT CHEST: No dominant thyroid nodule. No new adenopathy identified. Left hilar lymph nodes measure up to 1.2 x 1.1 cm. Trace bilateral pleural effusions. Severe bullous emphysema. No pneumothorax. Bilateral bronchovascul ar bundle and intralobular septal thickening compatible with pulmonary edema. Additionally, there are multifocal alveolar and groundglass opacities of the bilateral lungs which have progressively worsen ed from comparison CT. Cavitary focus of the left upper lung, 3.8 x 2.7 x 8.0 cm, previously measured 4.9 x 2.2 x 9.2 cm and again demonstrates internal layering fluid with thick irregular ashley indicat ing with the left upper lobe tracheobronchial tree. The degree of fluid within the cavitary focus has slightly increased from comparison. Postoperative changes from prior left upper lobectomy. Compensat ory hyperinflation of the right lung. No acute process of the imaged upper abdomen. Soft tissues are within normal limits. Bones appear int act. No suspicious lytic or blastic bony lesions. IMPRESSION: 1. Cardiomegaly with pulmonary edema and trace bilateral pleural effusions. 2. Additional multifocal alveolar and groundglass opacities throughout the bilateral lungs suggest al veolar pulmonary edema with pneumonia or aspiration pneumonitis also considered. 3. Severe bullous emphysema with chronic fibrotic changes. 4. Prior left upper lobectomy with chronic cavitary focus of the left upper lung communicating with t he left tracheobronchial tree. 5. Additional findings as above. The above report was generated using voice recognition software. It may contain grammatical, syntax o r spelling errors. Electronically signed by: Tom Maguire M.D. 10/14/2018 7:40 AM
[2018-10-14 07:49] LABS: iSTAT Allen Test Pass; iSTAT Arterial Blood Gas HCO3 24 meg/L (19-24); iSTAT Carbon Dioxide 25 mEq/l (24-31); iSTAT FiO2 100 %
--- NOTE | 2018-10-14 07:50 | Emergency Department Note ---
Entered by Yoly Loredo acting as a scribe for History of Present Illness General Chief complaint: Respiratory Distress Source: patient and EMS Mode of arrival: EMS History of Present Illness Provider complaint: respiratory distress Onset (ago): hour(s) (2.5) Location: chest Severity: severe Pain Consistency: + other (persistent) Quality: + other (respiratory distress) The patient is a 72 year old male who presents to the Emergency Room with complaints of severe respiratory distress beginning 2 hours ago. EMS reports the patient has an extensive history of lung cancer. They state he had no breathing difficulties throughout the day, and exerted himself more than usual today. EMS notes he began having difficulty breathing about 2.5 hours ago while trying to sleep, which progressively worsened until his called EMS. The patient denies any known history of need for a ventilator. Once the patient's arrived, additional history was obtained. The patient underwent chemotherapy and radiation for his lung cancer and is thought to be cancer free. She describes that the patient has had cold symptoms over the past week and has progressively gotten worse tonight. She does describe that the patient had to be placed on a ventilator earlier this fall after an episode of heart failure. She describes a significant cardiac history with previous cardiac catheterization and heart attack in 2005 and 2007 with a total of 7 stents previously placed. Home Medications Home Medications Medication Instructions Recorded Confirmed Type ferrous sulfate 325 mg PO Q12 09/17/18 10/14/18 History finasteride 5 mg PO QAM 09/17/18 10/14/18 History glipizide 5 mg PO QAM 09/17/18 10/14/18 History magnesium oxide 400 mg PO QAM 09/17/18 10/14/18 History metformin 1,000 mg PO BID 09/17/18 10/14/18 History metoprolol succinate 25 mg PO QAM 09/17/18 10/14/18 History multivitamin with minerals 1 tab PO DAILY 09/17/18 10/14/18 History [Multiple Vitamin-Minerals] pantoprazole 40 mg PO DAILY 09/17/18 10/14/18 History spironolactone 25 mg PO Q OTHER DAY 09/17/18 10/14/18 History voriconazole 200 mg PO BID 30 Days #60 tab 09/19/18 10/14/18 Rx aspirin 81 mg PO QAM 10/14/18 10/14/18 History Allergies Allergy/AdvReac Type Severity Reaction Status Date / Time No Known Allergies Allergy Verified 10/14/18 04:23 Past Med/Surg History Medical History MO (myocardial infarction) (Resolved) Small cell lung cancer (Acute 01/27/16) "DIAGNOSIS: Lung, CHATA, small cell lung carcinoma, [id number], stage IIIA TREATMENT: 1. Status post completion of combined radiation and chemotherapy. Radiation completed 05/02/2016 received 7000 cGy 2. 2 addition cycles of cisplatin/etoposide - Dr. Jeffery Ash" On 05/09/16 13:18 Beatris Curiel wrote "DIAGNOSIS: Lung, CHATA, small cell lung carcinoma, [id number], stage IIIA, limited stage Status post completion of combined radiation and chemotherapy. Radiation completed 05/02/2016 received 7000 cGy" On 05/09/16 12:53 Beatris Curiel wrote "DIAGNOSIS: Lung, CHATA, small cell lung carcinoma, [id number], stage IIIA, limited stage Status post completion of combined radiation and chemotherapy. Radiation completed 05/01/2016 received 7000 cGy" On 02/23/16 13:12 Jacinta Poole wrote "DIAGNOSIS: Lung, CHATA, small cell lung carcinoma, [id number], stage IIIA, limited stage" CAD (coronary artery disease) PVD (peripheral vascular disease) Hx of myocardial infarction HTN (hypertension) BPH (benign prostatic hyperplasia) HLD (hyperlipidemia) Anemia CKD stage 3 due to type 2 diabetes mellitus COPD (chronic obstructive pulmonary disease) DM II (diabetes mellitus, type II), controlled Consolidation lung Left upper lobe pneumonia Pneumonia Surgical History History of heart artery stent (Chronic) Family History Other Diabetes Heart disease Social History marital status: Current Living Situation: Spouse current occupational status: retired Feels Safe at Home: Yes Smoking Status: Never smoker Hx Alcohol Use: No Hx Substance Use: No Beliefs That Will Affect Care: None Preferred Language: [place] Review of Systems See HPI for pertinent positives & negatives. and A total of 10 systems reviewed and were otherwise negative Physical Exam Vital Signs Vital Signs - 24 hr 10/14/18 03:37 10/14/18 03:40 10/14/18 04:10 Temperature 36.3 C L Temperature Source Oral Sepsis Recent Fever Within 48 Hours No Sepsis Action Taken by Nursing No Action Required Arterial Pulse Rate Pulse Rate 144 H 129 H Pulse Rate [Right] Pulse Rhythm Regular Pulse Rhythm [Right] Pulse Strength Normal Pulse Strength [Right] Respiratory Rate 14 22 Respiratory Effort / Characteristics Retracting Respiratory Depth Shallow Respiratory Pattern Bradypnea Blood Pressure 145/99 H Blood Pressure [Right Arm] Blood Pressure Mean 114 Blood Pressure Mean [Right Arm] Blood Pressure Position Lying Blood Pressure Position [Right Arm] Pulse Oximetry 87 L 92 93 Oxygen Delivery Method CPAP Fraction of Inspired Oxygen 100 SaO2/FiO2 Ratio 10/14/18 04:13 10/14/18 04:18 10/14/18 04:21 Temperature Temperature Source Sepsis Recent Fever Within 48 Hours Sepsis Action Taken by Nursing Arterial Pulse Rate Pulse Rate Pulse Rate [Right] 136 H 136 H Pulse Rhythm Pulse Rhythm [Right] Regular Pulse Strength Pulse Strength [Right] Normal Respiratory Rate 16 28 H 14 Respiratory Effort / Characteristics Mechanically Ventilated Mechanically Ventilated Respiratory Depth Normal Respiratory Pattern Blood Pressure Blood Pressure [Right Arm] 114/82 100/71 Blood Pressure Mean Blood Pressure Mean [Right Arm] 92 80 Blood Pressure Position Blood Pressure Position [Right Arm] Lying Lying Pulse Oximetry 93 92 Oxygen Delivery Method Mechanical Vent Mechanical Vent Fraction of Inspired Oxygen 100 SaO2/FiO2 Ratio 10/14/18 05:50 10/14/18 05:53 10/14/18 06:14 Temperature 36.7 C Temperature Source Oral Sepsis Recent Fever Within 48 Hours Sepsis Action Taken by Nursing Arterial Pulse Rate Pulse Rate 138 H 125 H Pulse Rate [Right] 139 H Pulse Rhythm Pulse Rhythm [Right] Pulse Strength Pulse Strength [Right] Respiratory Rate 29 H 29 H Respiratory Effort / Characteristics Mechanically Ventilated Respiratory Depth Respiratory Pattern Blood Pressure 123/90 Blood Pressure [Right Arm] 106/82 Blood Pressure Mean 101 Blood Pressure Mean [Right Arm] 90 Blood Pressure Position Blood Pressure Position [Right Arm] Pulse Oximetry 100 100 100 Oxygen Delivery Method Mechanical Vent Fraction of Inspired Oxygen 100 100 SaO2/FiO2 Ratio 100 10/14/18 06:45 10/14/18 06:53 10/14/18 07:00 Temperature Temperature Source Sepsis Recent Fever Within 48 Hours Sepsis Action Taken by Nursing Arterial Pulse Rate 0 L Pulse Rate 124 H 135 H Pulse Rate [Right] Pulse Rhythm Pulse Rhythm [Right] Pulse Strength Pulse Strength [Right] Respiratory Rate Respiratory Effort / Characteristics Mechanically Ventilated Respiratory Depth Normal Respiratory Pattern Regular Blood Pressure Blood Pressure [Right Arm] Blood Pressure Mean Blood Pressure Mean [Right Arm] Blood Pressure Position Blood Pressure Position [Right Arm] Pulse Oximetry 100 99 Oxygen Delivery Method Mechanical Vent Fraction of Inspired Oxygen 100 SaO2/FiO2 Ratio 10/14/18 07:01 Temperature Temperature Source Sepsis Recent Fever Within 48 Hours Sepsis Action Taken by Nursing Arterial Pulse Rate 0 L Pulse Rate 136 H Pulse Rate [Right] Pulse Rhythm Pulse Rhythm [Right] Pulse Strength Pulse Strength [Right] Respiratory Rate Respiratory Effort / Characteristics Respiratory Depth Respiratory Pattern Blood Pressure 119/85 Blood Pressure [Right Arm] Blood Pressure Mean 96 Blood Pressure Mean [Right Arm] Blood Pressure Position Blood Pressure Position [Right Arm] Pulse Oximetry 100 Oxygen Delivery Method Fraction of Inspired Oxygen SaO2/FiO2 Ratio General: Patient appears to be in moderate to severe respiratory distress. HEENT: Head - normocephalic and atraumatic Pupils are equal, round, and reactive to light. Extraocular eye muscles are intact, and sclera are anicteric. Nose - moist nasal mucosa without discharge. Mouth - moist buccal mucosa. Oropharynx is nonerythematous and there is no tonsillar exudate or edema noted. Neck: Supple; no JVD, nuchal rigidity, cervical lymphadenopathy. Heart: Tachycardic rate and regular rhythm. There is a normal S1 and S2 with no murmurs, clicks, or gallops appreciated. Lungs:Rhonchi in right lung base. Diminished breath sounds throughout all lung watts, Abdomen: Soft, completely nontender, nondistended, with good bowel sounds. There are no palpable pulsatile masses or hepatosplenomegaly. There is no guarding, rigidity, or rebound noted. Extremities: No evidence of cyanosis, clubbing, or edema. There are easily palpable peripheral pulses. Skin: Pale and diaphoretic. Significant mottling of chest and abdomen. Procedures Free Text Procedures Endotracheal Intubation Indication: respiratory failure. The patient was on 100% oxygen via bipap prior to the procedure. Suction, airway equipment, RSI drugs, and appropriate personnel were prepared prior to the initiation of the procedure. A time out was taken. The patient's airway was assessed by opening his mouth manually. During inspection, it was noted that the patient's left front tooth was loose and easily movable. Care was taken to avoid this tooth. Induction was performed with 20 mg etomidate and 120 mg succinylcholine. After observing the clinical benefit of the medications , the airway was easily visualized utilizing a glidescope. A 7.5 size ETT tube was placed atraumatically to 25 cm using standard technique. The cuff inflated without signs of malfunction. There were bilateral breath sounds, positive colormetric change, no gastric sounds, and post procedure pulse oximetry was 93% . Post intubation sedation and was administered using 5 mg versed, 100 mcg fentanyl. There were no complications. Course 0328: Patient was evaluated in room B1. A complete history and physical examination was performed. IV lock was established. Labs were drawn as above. A portable chest x-ray was obtained. A second IV lock was initiated. I discussed the patient's wishes with regards to resuscitation and intubation. The patient requested that we do whatever we needed to do to keep him alive. I then discussed the case with the patient's who arrived in the emergency department. Patient was observed on the surveillance system monitor and pulse oximeter. It appeared the patient was tiring out and the decision was made to perform RSI and endotracheal patient. 0333: An endotracheal tube was placed. See procedure note for details. 0359: Fentanyl Citrate 100 mcg IV, Etomidate 20 mg IV 0400: Post-intubation Xray revealed endotracheal tube needed to be advanced by 2cm-3 cm. The patient appeared to have some ST segment elevation on the surveillance system monitor and lead II. A 12-lead EKG showed ST segment elevation which met criteria for a STEMI. A heart alert was called. 0410: Nursing staff noticed what appeared to be a widened QRS on monitor, were concerned for v-tach. I went to the bedside and ordered a repeat 12-lead ECG. There were obvious P waves present on the surveillance system monitor. Twelve-lead EKG revealed a progressing MO but no signs of ventricular dysrhythmia. 0412: Dr. Dobbins, oil heaterman arrived at the bedside and was discussing the case with the . He will take the patient to the cathode builder. 0425: The patient began to move around and reach for his endotracheal tube. I ordered Versed 2.5 mg IV. Consultations Consultation #1: Dr. Dobbins, oil heaterman will take the patient to the cathode builder. Time: 04:22 Administered Medications Sodium Chloride (Nss 1000ml) 1,000 mls @ 75 mls/hr IV .[id number] [facility] Stop: 11/13/18 05:29 Last Admin: 10/14/18 06:56 Dose: 75 mls/hr Midazolam HCl (Versed) 125 mg in 250 mls @ 2 mls/hr IV .Q24H STA; Protocol Stop: 10/15/18 05:49 Last Admin: 10/14/18 06:45 Dose: 1 mg/hr, 2 mls/hr Vancomycin HCl 1,250 mg/ (Sodium Chloride) 275 mls @ 125 mls/hr IV TODAY@0630 [facility] Stop: 10/14/18 08:41 Last Admin: 10/14/18 06:46 Dose: 125 mls/hr Discontinued Medications Etomidate (Amidate) 20 mg IV NOW ONE Stop: 10/14/18 04:00 Last Admin: 10/14/18 06:20 Dose: Not Given Fentanyl Citrate (Fentanyl Citrate) 100 mcg IV NOW ONE Stop: 10/14/18 04:00 Last Admin: 10/14/18 06:20 Dose: Not Given Fentanyl Citrate (Fentanyl Citrate) Confirm Administered Dose 100 mcg .ROUTE .STK-MED ONE Stop: 10/14/18 04:16 Last Admin: 10/14/18 06:22 Dose: Not Given Heparin Sodium (Porcine) (Heparin Iv Bolus (Resident Physician In Radiology Use Only)) Confirm Administered Dose 10,000 units .ROUTE .STK-MED ONE Stop: 10/14/18 04:16 Last Admin: 10/14/18 06:19 Dose: Not Given Heparin Sodium/Sodium Chloride (Heparin Sod/Nss 2 Units/Ml) Confirm Administered Dose 3,000 units IV .STK-MED ONE Stop: 10/14/18 04:17 Last Admin: 10/14/18 06:19 Dose: Not Given Sodium Chloride (Nss) 500 mls @ 999 mls/hr IV .Q31M ONE Stop: 10/14/18 06:34 Last Infusion: 10/14/18 07:05 Dose: 0 mls/hr Admin: 10/14/18 06:29 Dose: 999 mls/hr Methylprednisolone 80 mg/ (Syringe) 1.28 mls @ 1.5 mls/min IV NOW STA Stop: 10/14/18 06:07 Last Admin: 10/14/18 06:17 Dose: 1.5 mls/min Piperacillin Sod/Tazobactam (Sod 3.375 gm/ Dextrose) 115 mls @ 230 mls/hr IV NOW ONE; Protocol Stop: 10/14/18 06:59 Last Admin: 10/14/18 06:46 Dose: 230 mls/hr Ioversol (Optiray 320 125ml) 119 ml IV ONCE PRN PRN Reason: Interaction Checking Stop: 10/18/18 05:35 Last Admin: 10/14/18 05:36 Dose: 119 ml Midazolam HCl (Versed) 5 mg IV NOW STA Stop: 10/14/18 04:00 Last Admin: 10/14/18 06:21 Dose: Not Given Midazolam HCl (Versed) Confirm Administered Dose 2 mg .ROUTE .STK-MED ONE Stop: 10/14/18 04:16 Last Admin: 10/14/18 06:19 Dose: Not Given Midazolam HCl (Versed) 2.5 mg IV NOW STA Stop: 10/14/18 04:26 Last Admin: 10/14/18 06:18 Dose: Not Given Miscellaneous () Confirm Administered Dose 1 ea .ROUTE .STK-MED ONE Stop: 10/14/18 03:36 Last Admin: 10/14/18 06:19 Dose: Not Given Nicardipine HCl (Cardene) Confirm Administered Dose 25 mg .ROUTE .STK-MED ONE Stop: 10/14/18 04:17 Last Admin: 10/14/18 06:19 Dose: Not Given Nitroglycerin/Dextrose (Nitroglycerin/D5w 100 Mcg/Ml 20ml Syringe) Confirm Administered Dose 2,000 mcg .ROUTE .STK-MED ONE Stop: 10/14/18 04:19 Last Admin: 10/14/18 06:18 Dose: Not Given Sodium Bicarbonate (Sodium Bicarbonate 8.4%) Confirm Administered Dose 50 meq .ROUTE .STK-MED ONE Stop: 10/14/18 04:52 Last Admin: 10/14/18 06:18 Dose: Not Given Sodium Bicarbonate (Sodium Bicarbonate 8.4%) Confirm Administered Dose 50 meq .ROUTE .STK-MED ONE Stop: 10/14/18 05:32 Last Admin: 10/14/18 06:22 Dose: Not Given Succinylcholine Chloride (Quelicin) 120 mg IV NOW STA Stop: 10/14/18 04:00 Last Admin: 10/14/18 06:21 Dose: Not Given Medical Decision Making Differential Diagnosis Etiologies considered include pneumonia, CHF, respiratory failure, STEMI, pneumothorax. Medical Records Attestation: I reviewed the patient's medical records. Home Medications Current Medication List: was personally reviewed by me Laboratory Data Attestation: I reviewed the patient's lab results. Result diagrams: 10/14/18 03:45 10/14/18 03:45 Lab Results 10/14/18 10/14/18 10/14/18 Range/Units 03:45 03:45 03:45 WBC 16.77 H (4.8-10.8) K/uL RBC 3.88 L (4.7-6.1) M/uL Hgb 10.7 L (14.0-18.0) g/dL Hct 33.5 L (42-52) % MCV 86.3 (80-100) fL MCH 27.6 (25-34) pg MCHC 31.9 L (32-36) g/dL RDW Std Deviation 58.6 H (36.4-46.3) fL RDW Coeff of Molly 18.5 H (11.5-14.5) % Plt Count 533 H (130-400) K/uL MPV 10.1 (7.4-10.4) fL Immature Gran % (Auto) 2.7 % Neut % (Auto) 57.5 % Lymph % (Auto) 27.3 % [place] % (Auto) 8.9 % Eos % (Auto) 3.4 % Baso % (Auto) 0.2 % Immature Gran # (Auto) 0.46 H (0.00-0.02) K/uL Neut # (Auto) 9.64 H (1.4-6.5) K/uL Lymph # (Auto) 4.57 H (1.2-3.4) K/uL [place] # (Auto) 1.49 H (0.11-0.59) K/uL Eos # (Auto) 0.57 H (0-0.5) K/uL Baso # (Auto) 0.04 (0-0.2) K/uL PT 10.9 (9.0-12.0) Seconds INR 1.1 (0.9-1.1) APTT 31.2 H (21.0-31.0) Seconds PTT Ratio 1.2 Activ Coag Time Kaolin (94-140) SECONDS POC pH (7.35-7.45) POC pCO2 (35-46) mmHg POC pO2 (80-95) mmHg POC HCO3 (19-24) [place]/L POC Total CO2 (24-31) mEq/l POC Base Excess (-9-1.8) [place]/L POC ABG O2 Sat (90-95) % Sodium 133 L (136-145) mmol/L Potassium 4.2 (3.5-5.1) mmol/L Chloride 101 (98-107) mmol/L Carbon Dioxide 22 (21-32) mmol/L Anion Gap 10.0 (3-11) BUN 36 H (7-18) mg/dl Creatinine 1.38 (0.6-1.4) mg/dl Est Cr Clr Drug Dosing 37.1 ml/min Est GFR ( Amer) 58.0 Est GFR (Non-Af Amer) 50.0 BUN/Creatinine Ratio 26.1 H (10-20) Glucose 289 H (70-99) mg/dl POC Glucose (70-99) Lactate (0.4-2.0) mmol/L Calcium 8.9 (8.5-10.1) mg/dl Ionized Calcium (1.12-1.32) mmol/L Total Bilirubin 0.2 (0.1-1) mg/dl AST 31 (15-37) U/L ALT 38 (12-78) U/L Alkaline Phosphatase 324 H (45-117) U/L POC Troponin I (0-0.045) ng/ml Troponin I < 0.015 (0-0.045) ng/ml Total Protein 8.2 (6.4-8.2) gm/dl Albumin 2.6 L (3.4-5.0) gm/dl Globulin 5.6 H (2.5-4.0) gm/dl Albumin/Globulin Ratio 0.5 L (0.9-2) Lipase 171 (73-393) U/L Procalcitonin (0-0.5) ng/ml Urine Color Urine Appearance (Clear) Urine pH (4.5-7.5) Ur Specific [place] (1.000-1.030) Urine Protein (Negative) Urine Glucose (UA) (Negative) Urine Ketones (Negative) Urine Blood (Negative) Urine Nitrite (Negative) Urine Bilirubin (Negative) Urine Urobilinogen (Negative) Ur Leukocyte Esterase (Negative) Urine WBC (Auto) (0-5) /hpf Urine RBC (Auto) (0-4) /hpf U Hyaline Cast (Auto) (0-5) /lpf U Epithel Cells (Auto) (0-5) /lpf Urine Bacteria (Auto) (Negative) Ur Renal Epithelial Cell 10/14/18 10/14/18 10/14/18 Range/Units 03:45 04:07 04:43 WBC (4.8-10.8) K/uL RBC (4.7-6.1) M/uL Hgb (14.0-18.0) g/dL Hct (42-52) % MCV (80-100) fL MCH (25-34) pg MCHC (32-36) g/dL RDW Std Deviation (36.4-46.3) fL RDW Coeff of Molly (11.5-14.5) % Plt Count (130-400) K/uL MPV (7.4-10.4) fL Immature Gran % (Auto) % Neut % (Auto) % Lymph % (Auto) % [place] % (Auto) % Eos % (Auto) % Baso % (Auto) % Immature Gran # (Auto) (0.00-0.02) K/uL Neut # (Auto) (1.4-6.5) K/uL Lymph # (Auto) (1.2-3.4) K/uL [place] # (Auto) (0.11-0.59) K/uL Eos # (Auto) (0-0.5) K/uL Baso # (Auto) (0-0.2) K/uL PT (9.0-12.0) Seconds INR (0.9-1.1) APTT (21.0-31.0) Seconds PTT Ratio Activ Coag Time Kaolin 197 H (94-140) SECONDS POC pH (7.35-7.45) POC pCO2 (35-46) mmHg POC pO2 (80-95) mmHg POC HCO3 (19-24) [place]/L POC Total CO2 (24-31) mEq/l POC Base Excess (-9-1.8) [place]/L POC ABG O2 Sat (90-95) % Sodium (136-145) mmol/L Potassium (3.5-5.1) mmol/L Chloride (98-107) mmol/L Carbon Dioxide (21-32) mmol/L Anion Gap (3-11) BUN (7-18) mg/dl Creatinine (0.6-1.4) mg/dl Est Cr Clr Drug Dosing ml/min Est GFR ( Amer) Est GFR (Non-Af Amer) BUN/Creatinine Ratio (10-20) Glucose (70-99) mg/dl POC Glucose (70-99) Lactate (0.4-2.0) mmol/L Calcium (8.5-10.1) mg/dl Ionized Calcium (1.12-1.32) mmol/L Total Bilirubin (0.1-1) mg/dl AST (15-37) U/L ALT (12-78) U/L Alkaline Phosphatase (45-117) U/L POC Troponin I < 0.03 (0-0.045) ng/ml Troponin I (0-0.045) ng/ml Total Protein (6.4-8.2) gm/dl Albumin (3.4-5.0) gm/dl Globulin (2.5-4.0) gm/dl Albumin/Globulin Ratio (0.9-2) Lipase (73-393) U/L Procalcitonin 0.17 (0-0.5) ng/ml Urine Color Urine Appearance (Clear) Urine pH (4.5-7.5) Ur Specific [place] (1.000-1.030) Urine Protein (Negative) Urine Glucose (UA) (Negative) Urine Ketones (Negative) Urine Blood (Negative) Urine Nitrite (Negative) Urine Bilirubin (Negative) Urine Urobilinogen (Negative) Ur Leukocyte Esterase (Negative) Urine WBC (Auto) (0-5) /hpf Urine RBC (Auto) (0-4) /hpf U Hyaline Cast (Auto) (0-5) /lpf U Epithel Cells (Auto) (0-5) /lpf Urine Bacteria (Auto) (Negative) Ur Renal Epithelial Cell 10/14/18 10/14/18 10/14/18 Range/Units 04:47 05:09 05:14 WBC (4.8-10.8) K/uL RBC (4.7-6.1) M/uL Hgb (14.0-18.0) g/dL Hct (42-52) % MCV (80-100) fL MCH (25-34) pg MCHC (32-36) g/dL RDW Std Deviation (36.4-46.3) fL RDW Coeff of Molly (11.5-14.5) % Plt Count (130-400) K/uL MPV (7.4-10.4) fL Immature Gran % (Auto) % Neut % (Auto) % Lymph % (Auto) % [place] % (Auto) % Eos % (Auto) % Baso % (Auto) % Immature Gran # (Auto) (0.00-0.02) K/uL Neut # (Auto) (1.4-6.5) K/uL Lymph # (Auto) (1.2-3.4) K/uL [place] # (Auto) (0.11-0.59) K/uL Eos # (Auto) (0-0.5) K/uL Baso # (Auto) (0-0.2) K/uL PT (9.0-12.0) Seconds INR (0.9-1.1) APTT (21.0-31.0) Seconds PTT Ratio Activ Coag Time Kaolin 208 H (94-140) SECONDS POC pH 7.10 L* 7.12 L* (7.35-7.45) POC pCO2 59 H 70 H (35-46) mmHg POC pO2 120 H 36 L (80-95) mmHg POC HCO3 18 L 23 (19-24) [place]/L POC Total CO2 20 L 25 (24-31) mEq/l POC Base Excess -11.0 L -7.0 (-9-1.8) [place]/L POC ABG O2 Sat 97.0 H 49.0 L (90-95) % Sodium (136-145) mmol/L Potassium (3.5-5.1) mmol/L Chloride (98-107) mmol/L Carbon Dioxide (21-32) mmol/L Anion Gap (3-11) BUN (7-18) mg/dl Creatinine (0.6-1.4) mg/dl Est Cr Clr Drug Dosing ml/min Est GFR ( Amer) Est GFR (Non-Af Amer) BUN/Creatinine Ratio (10-20) Glucose (70-99) mg/dl POC Glucose (70-99) Lactate (0.4-2.0) mmol/L Calcium (8.5-10.1) mg/dl Ionized Calcium (1.12-1.32) mmol/L Total Bilirubin (0.1-1) mg/dl AST (15-37) U/L ALT (12-78) U/L Alkaline Phosphatase (45-117) U/L POC Troponin I (0-0.045) ng/ml Troponin I (0-0.045) ng/ml Total Protein (6.4-8.2) gm/dl Albumin (3.4-5.0) gm/dl Globulin (2.5-4.0) gm/dl Albumin/Globulin Ratio (0.9-2) Lipase (73-393) U/L Procalcitonin (0-0.5) ng/ml Urine Color Urine Appearance (Clear) Urine pH (4.5-7.5) Ur Specific [place] (1.000-1.030) Urine Protein (Negative) Urine Glucose (UA) (Negative) Urine Ketones (Negative) Urine Blood (Negative) Urine Nitrite (Negative) Urine Bilirubin (Negative) Urine Urobilinogen (Negative) Ur Leukocyte Esterase (Negative) Urine WBC (Auto) (0-5) /hpf Urine RBC (Auto) (0-4) /hpf U Hyaline Cast (Auto) (0-5) /lpf U Epithel Cells (Auto) (0-5) /lpf Urine Bacteria (Auto) (Negative) Ur Renal Epithelial Cell 10/14/18 10/14/18 10/14/18 Range/Units 06:42 06:42 07:01 WBC (4.8-10.8) K/uL RBC (4.7-6.1) M/uL Hgb (14.0-18.0) g/dL Hct (42-52) % MCV (80-100) fL MCH (25-34) pg MCHC (32-36) g/dL RDW Std Deviation (36.4-46.3) fL RDW Coeff of Molly (11.5-14.5) % Plt Count (130-400) K/uL MPV (7.4-10.4) fL Immature Gran % (Auto) % Neut % (Auto) % Lymph % (Auto) % [place] % (Auto) % Eos % (Auto) % Baso % (Auto) % Immature Gran # (Auto) (0.00-0.02) K/uL Neut # (Auto) (1.4-6.5) K/uL Lymph # (Auto) (1.2-3.4) K/uL [place] # (Auto) (0.11-0.59) K/uL Eos # (Auto) (0-0.5) K/uL Baso # (Auto) (0-0.2) K/uL PT (9.0-12.0) Seconds INR (0.9-1.1) APTT (21.0-31.0) Seconds PTT Ratio Activ Coag Time Kaolin (94-140) SECONDS POC pH (7.35-7.45) POC pCO2 (35-46) mmHg POC pO2 (80-95) mmHg POC HCO3 (19-24) [place]/L POC Total CO2 (24-31) mEq/l POC Base Excess (-9-1.8) [place]/L POC ABG O2 Sat (90-95) % Sodium (136-145) mmol/L Potassium (3.5-5.1) mmol/L Chloride (98-107) mmol/L Carbon Dioxide (21-32) mmol/L Anion Gap (3-11) BUN (7-18) mg/dl Creatinine (0.6-1.4) mg/dl Est Cr Clr Drug Dosing ml/min Est GFR ( Amer) Est GFR (Non-Af Amer) BUN/Creatinine Ratio (10-20) Glucose (70-99) mg/dl POC Glucose (70-99) Lactate 3.7 H* (0.4-2.0) mmol/L Calcium (8.5-10.1) mg/dl Ionized Calcium 1.13 (1.12-1.32) mmol/L Total Bilirubin (0.1-1) mg/dl AST (15-37) U/L ALT (12-78) U/L Alkaline Phosphatase (45-117) U/L POC Troponin I (0-0.045) ng/ml Troponin I (0-0.045) ng/ml Total Protein (6.4-8.2) gm/dl Albumin (3.4-5.0) gm/dl Globulin (2.5-4.0) gm/dl Albumin/Globulin Ratio (0.9-2) Lipase (73-393) U/L Procalcitonin (0-0.5) ng/ml Urine Color Yellow Urine Appearance Clear (Clear) Urine pH 5.0 (4.5-7.5) Ur Specific [place] > 1.045 H (1.000-1.030) Urine Protein 1+ H (Negative) Urine Glucose (UA) Negative (Negative) Urine Ketones Negative (Negative) Urine Blood 2+ H (Negative) Urine Nitrite Negative (Negative) Urine Bilirubin Negative (Negative) Urine Urobilinogen Negative (Negative) Ur Leukocyte Esterase Negative (Negative) Urine WBC (Auto) 1-5 (0-5) /hpf Urine RBC (Auto) >30 H (0-4) /hpf U Hyaline Cast (Auto) 5-10 H (0-5) /lpf U Epithel Cells (Auto) >30 H (0-5) /lpf Urine Bacteria (Auto) 1+ H (Negative) Ur Renal Epithelial Cell Not Reportable 10/14/18 Range/Units 07:25 WBC (4.8-10.8) K/uL RBC (4.7-6.1) M/uL Hgb (14.0-18.0) g/dL Hct (42-52) % MCV (80-100) fL MCH (25-34) pg MCHC (32-36) g/dL RDW Std Deviation (36.4-46.3) fL RDW Coeff of Molly (11.5-14.5) % Plt Count (130-400) K/uL MPV (7.4-10.4) fL Immature Gran % (Auto) % Neut % (Auto) % Lymph % (Auto) % [place] % (Auto) % Eos % (Auto) % Baso % (Auto) % Immature Gran # (Auto) (0.00-0.02) K/uL Neut # (Auto) (1.4-6.5) K/uL Lymph # (Auto) (1.2-3.4) K/uL [place] # (Auto) (0.11-0.59) K/uL Eos # (Auto) (0-0.5) K/uL Baso # (Auto) (0-0.2) K/uL PT (9.0-12.0) Seconds INR (0.9-1.1) APTT (21.0-31.0) Seconds PTT Ratio Activ Coag Time Kaolin (94-140) SECONDS POC pH (7.35-7.45) POC pCO2 (35-46) mmHg POC pO2 (80-95) mmHg POC HCO3 (19-24) [place]/L POC Total CO2 (24-31) mEq/l POC Base Excess (-9-1.8) [place]/L POC ABG O2 Sat (90-95) % Sodium (136-145) mmol/L Potassium (3.5-5.1) mmol/L Chloride (98-107) mmol/L Carbon Dioxide (21-32) mmol/L Anion Gap (3-11) BUN (7-18) mg/dl Creatinine (0.6-1.4) mg/dl Est Cr Clr Drug Dosing ml/min Est GFR ( Amer) Est GFR (Non-Af Amer) BUN/Creatinine Ratio (10-20) Glucose (70-99) mg/dl POC Glucose 266 H (70-99) Lactate (0.4-2.0) mmol/L Calcium (8.5-10.1) mg/dl Ionized Calcium (1.12-1.32) mmol/L Total Bilirubin (0.1-1) mg/dl AST (15-37) U/L ALT (12-78) U/L Alkaline Phosphatase (45-117) U/L POC Troponin I (0-0.045) ng/ml Troponin I (0-0.045) ng/ml Total Protein (6.4-8.2) gm/dl Albumin (3.4-5.0) gm/dl Globulin (2.5-4.0) gm/dl Albumin/Globulin Ratio (0.9-2) Lipase (73-393) U/L Procalcitonin (0-0.5) ng/ml Urine Color Urine Appearance (Clear) Urine pH (4.5-7.5) Ur Specific [place] (1.000-1.030) Urine Protein (Negative) Urine Glucose (UA) (Negative) Urine Ketones (Negative) Urine Blood (Negative) Urine Nitrite (Negative) Urine Bilirubin (Negative) Urine Urobilinogen (Negative) Ur Leukocyte Esterase (Negative) Urine WBC (Auto) (0-5) /hpf Urine RBC (Auto) (0-4) /hpf U Hyaline Cast (Auto) (0-5) /lpf U Epithel Cells (Auto) (0-5) /lpf Urine Bacteria (Auto) (Negative) Ur Renal Epithelial Cell Imaging Data Attestation: I personally reviewed and interpreted this imaging study as follows : My Impression: CHEST XRAY: Metaport in place. Cardiomegaly. Significant right lower lobe pneumonia. Decreased left lung capacity, unchanged from previous films. REPEAT CHEST XRAY: Endotracheal tube in place 4cm above the manav. ECG Data Attestation: I personally reviewed and interpreted this ECG as follows: Indication: SOB/dyspnea Rate (beats per minute): 140 Rhythm: sinus tachycardia Findings: + ST elevation (inferiorly and anteriorly, concerning for STEMI) Comparison ECG Date: from (09/17/18) Change: the following changes noted (Ischemia is new when compared to prior ECG) Additional Comments: Repeat ECG: Sinus tachycardia. Rate of 136. Evolving ischemic changes. Significant ST elevation in anterior leads. Blood Pressure Blood Pressure Findings: Normal blood pressure Blood Pressure Disposition: did not require urgent referral MDM Narrative The patient is a 72 year old male who presents to the Emergency Room with complaints of severe respiratory distress beginning 2 hours ago. The patient has been suffering from a cold over the past week and developed increasing respiratory distress throughout the night. Upon arrival of fire department and EMS, the patient's O2 saturations were in the 70s. He required supplemental oxygen by EMS as well as BiPAP to maintain O2 saturations in the high 80s and low 90s. The patient required endotracheal intubation to maintain oxygen saturations. While in the emergency department, just after intubation, it was noted on the surveillance system monitor that the patient had ST segment elevation in lead II. A 12- lead EKG was obtained which showed criteria for a STEMI. A heart alert was called. The patient was continually sedated and received a total of 1 L of normal saline solution to me. The patient will go to the Resident Physician In Radiology with Dr. Dobbins. I kept the patient's abreast of the situation. She contacted their children. Impression & Plan Respiratory failure, ST elevation (STEMI) myocardial infarction Critical Care Time I have personally spent greater than 60 minutes of critical care time in the direct management of this patient. This includes bedside care, interpretation of diagnostic studies, and testing, discussion with consultants, patient, and family members, and other required patient management activities. This 60 minutes is in excess of all separately billable procedures. Critical Care Time: Yes Total Critical Care Time: 60 Discharge Plan Visit Data Chief Complaint: Respiratory Distress ED Provider: Tamra Segal Discharge Problem: Respiratory failure, ST elevation (STEMI) myocardial infarction Patient Disposition: Being Evaluated by Hospitalist Discharge Instructions Interventions: ED Discharge Assessment Last Done: 10/14/18 04:27 The scribe's documentation has been prepared under my direction and personally reviewed by me in its entirety. I confirm that the note above accurately reflects all work, treatment, procedures, and medical decision making performed by me.
[2018-10-14] MEDS: fentaNYL citrate 100 MCG/2 ML VIAL IV PRN ×3 (08:02→20:00)
[2018-10-14 08:05] LABS: Troponin I 2.77 ng/ml (0-0.045)
--- NOTE | 2018-10-14 08:27 | Pharmacy Report ---
Pharmacy Abx Dose Short Note - Date of Service October 14, 2018 - Assessment & Plan Assessment 72 year old M receiving VANCOMYCIN + ZOSYN + VORICONAZOLE for treatment of pulm infxn Day # 1 ABX GHANSHYAM present on admission Plan Vancomycin * Load: 1250mg IV given * Maint dose: 1000mg (17.4mg/kg) IV Q 24 hrs * Goal trough level for pulm infxn : 15 to 20 mcg/mL * Will likely need dosing interval shortened if renal fxn improves over next 24 hrs. No level has been ordered due to changing renal fxn. * P'kinetic est: Vd 0.7L/kg; half-life ~20hrs Zosyn * Per shift lab technician RPh: 3.375gm ext-interval dosing IV Q 8 hrs Voriconazole * was receiving maint dose of 200mg PO BID and was compliant w/ this dose per family * will not load with IV regimen rather will begin maint IV dose of 4mg/kg IV Q 12 hrs (230mg IV Q 12hrs) * NOTE: pt's eCrCl is less than 50 and one must monitor for decline in renal fxn as the IV vehicle to deliver this medication accumulates in renal impairment and could result in nephrotoxicity. PO/enteral delivery preferred when eCrCl less than 50 Pharmacy will continue to follow and will adjust dose/frequency as necessary. Thank you.
[2018-10-14] MEDS ORDERED: Nursing to Pharmacy Communication ONE (08:38)
[2018-10-14] MEDS: VORICONAZOLE IV SCH ×2 (08:44→21:06)
[2018-10-14] MEDS: SODIUM CHLORIDE 0.9% IV SCH ×2 (08:44→21:06)
[2018-10-14] MEDS ORDERED: ASPIRIN 81 MG ECTAB PO SCH (09:00)
[2018-10-14] MEDS ORDERED: SUCCINYLCHOLINE CHLORIDE 20 MG/ML 10 ML VIAL IV ONE (09:28)
[2018-10-14] MEDS ORDERED: MIDAZOLAM HCL 5 MG/ML 1 ML VIAL IV ONE (09:28)
[2018-10-14] MEDS ORDERED: fentaNYL citrate 100 MCG/2 ML CARP IV ONE (09:28)
[2018-10-14] MEDS ORDERED: GLUCAGON FOR INJ 1 MG VIAL IM PRN (10:17)
[2018-10-14] MEDS ORDERED: GLUCOSE 10 TABS/TUBE PO PRN (10:17)
[2018-10-14] MEDS ORDERED: GLUCOSE 40% GEL 15 GM TUBE PO PRN (10:17)
[2018-10-14] MEDS ORDERED: DEXTROSE 50% 50 ML SYRINGE IV PRN (10:17)
[2018-10-14] MEDS ORDERED: NovoLIN-R BOLUS FROM BAG IV ONE (10:30)
--- NOTE | 2018-10-14 11:08 | Pharmacy Report ---
Glycemic Control Consultation - Date of Service October 14, 2018 - Scope Scope: Glycemic Pharmacist consulted by Dr Ling on 10/14/18 for glycemic control and to write orders per [facility] inpatient glycemic control protocol - Objective Weight: 57.5 kg Accuchecks BSG (last 24hrs): 10/14/18 10/14/18 03:45 07:25 Glucose 289 H POC Glucose 266 H Laboratory Data (last 24hrs): 10/14/18 03:45 Potassium 4.2 Carbon Dioxide 22 Anion Gap 10.0 Creatinine 1.38 Est Cr Clr Drug Dosing 37.1 - Recent Pertinent Medications Outpatient Anti-diabetic Regimen: * glipizide 5 mg Po daily plus metformin 1000 mg BID * A1c = 6.7 % 05/2018 Risk Factors for Insulin Resistance: * Steroids: SM 125 mg IV x 1 then 40 mg IV q8 hours * Infection: vancomycin/voriconazole/zosyn * Recent Surgery: s/p PCI * Diet: NPO * Mechanical Ventilation: YES, on midazolam infusion - Assessment & Plan Assessment & Plan: ASSESSMENT: * Mr Aden is a 72 y/o M with well controlled T2DM who presents with acute respiratory failure with a PMH of multifocal PNA on voriconazole and subsequent STEMI. Patient is current intubated and receiving multiple antibiotics and steroids. Previous admissions suggest that patient's BSGs are labile with steroid involvement. With critical illness, steroid use, and intubation will start insulin drip. PLAN FOR INPATIENT GLYCEMIC CONTROL: * Starting IV insulin infusion per moderate stress protocol * Goal Range 140 - 200 mg/dl * In the critical care setting, continuous IV insulin infusion has been shown to be the best method for achieving glycemic targets. * Holding outpatient oral diabetes medications * Please note that the plan above was derived based on current level of insulin resistance and hospital stress. These recommendations are appropriate for inpatient admission only. Plan of care upon discharge will need to be reassessed to avoid potential outpatient hypo/hyperglycemia. Thank you.
--- NOTE | 2018-10-14 11:10 | Operative Report ---
DATE OF OPERATION: 10/14/2018 REPORT OF CATHETERIZATION AND PERCUTANEOUS CORONARY INTERVENTION INDICATIONS: Profuse diaphoresis, shortness of breath in a 72-year-old male whose past medical history is significant for hypercholesterolemia, diabetes mellitus, prior myocardial infarction and multiple percutaneous coronary interventions. His EKG in the Emergency Department demonstrated transient hyperacute ST elevation V1 through V3. Presenting symptoms were more shortness of breath and diaphoresis than chest pain. PROCEDURE PERFORMED: Left heart cath, coronary cineangiography, PTCA of diagonal branch, radiological interpretation and supervision. METHOD: Upon arrival in the chemical lab supervisor, the patient was prepped and draped in usual sterile fashion. After local infiltration of 2% lidocaine, a 6-Luxembourger sheath was placed in the right femoral artery, 6-Luxembourger sheath was placed in the right femoral vein. Both sheaths were aspirated and flushed. Intermittent sampling of blood was obtained for titration of heparin and evaluation of blood gases. A 6-Luxembourger EBU 3.5 guiding catheter was advanced over wire under fluoroscopic guidance to the central circulation where it was aspirated and flushed. After confirmation of adequate waveforms, it was advanced into the left main. Cineangiograms of the left coronary artery were obtained and reviewed. A 0.014-inch Can Reforming Machine Operator wire was advanced through the guiding catheter into the ostium of a totally occluded but previously stented diagonal branch. Multiple attempts to pass this wire beyond an angulated segment in the mid vessel were unsuccessful. A 2.0 Mini Trek 15 angioplasty catheter positioned in the ostial and proximal first diagonal branch on multiple occasions with attention to avoiding the trunk, left anterior descending artery. Each inflation was to nominal pressure for less than 1 minute. Further attempts at PCI of the diagonal branch were abandoned. Wire and guide were removed. The sheath was aspirated and flushed. A 6-Luxembourger diagnostic JR4 right coronary catheter was advanced over wire under fluoroscopic guidance to the central circulation where it was aspirated and flushed. After confirmation of adequate waveforms, it was advanced into the right coronary artery. Cineangiograms of the right coronary artery were obtained and reviewed. Catheter was used to cross the aortic valve in retrograde fashion. Left ventricular end diastolic pressure was measured. Catheter was removed from the left ventricle to the aorta under continuous pressure monitoring, removed from body over wire. Sheath was aspirated and flushed. Angio-Seal was deployed over the right femoral artery. A QuikClot was applied over the right femoral vein. The patient was returned to the intensive care unit in critical condition. COMPLICATIONS: None. FINDINGS: Left main is normal. Left circumflex is moderate in caliber with no significant stenosis present. Proximal vessel was patent and small immediately after the origin of the first posterolateral branch. First posterolateral branch has a stent in its proximal portion with no restenosis noted. The first marginal branch is free of significant disease. Ramus intermedius arising from a trifurcation of the left main, small (1 mm) in caliber with a proximal subtotal occlusion, mid stented segment is patent. The left anterior descending artery is moderate in caliber with no significant stenosis present. The proximal vessel is patent, the stented segment beyond the first septal mosquito sprayer is also patent and JERAD grade 1 flow to the apex is noted. A small first diagonal branch is extensively stented and totally occluded at its ostium. The right coronary artery is moderate to large in caliber with a mid 50% in-stent restenosis. There do not appear to be any RV branches that are flush occluded. The PDA and the posterolateral branches arising from the posterior AV extension of the right coronary artery are all free of significant disease. Left ventricular end diastolic pressure was markedly elevated. No significant aortic valve gradient is demonstrated. Final cineangiograms demonstrate a short area of widening of the stented diagonal branch, but no flow in the diagonal branch. IMPRESSION: 1. 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 2. Patent left anterior descending including mid stented segments beyond the diagonal branch. 3. Significant disease of a small ramus intermedius. 4. Patent circumflex and stented circumflex marginal, patent right coronary artery and mid stented segment. 5. No evidence of right ventricular infarct. RECOMMENDATIONS: 1. Draw blood cultures to rule out sepsis in light of recent "pneumonia" and recent antibiotic therapy at home. 2. Rule out pulmonary embolism accounting for resting tachycardia and transient ST elevation V1 through V3. I attest to the content of the Intraoperative Record and any orders documented therein. Any exception s are noted below.
[2018-10-14] MEDS: PANTOprazole 40 MG in SYRINGE 0 ML IV SCH (11:21)
[2018-10-14] MEDS: INSULIN REGULAR 250 UNITS in SODIUM CHLORIDE 0.9% 247.5 ML IV SCH (11:21)
[2018-10-14] MEDS: methylPREDNISolone 40 MG in SYRINGE 0 ML IV SCH ×2 (11:24→20:03)
[2018-10-14] MEDS ORDERED: PHARMACY GLYCEMIC MGMT CONSULT PRN (11:51)
--- NOTE | 2018-10-14 12:33 | Procedure Note ---
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 Consent obtained from the , agreed to the procedure. Risk and benefit explained details. Patient has multiple bronchoscopies in the past. The patient monitored in the ICU with ICU style of monitoring in bed 103, timeout was performed by the nursing staff, the patient was already sedated with Versed and fentanyl. Received additional dose of fentanyl 50 mics x2 doses. No lidocaine was used. Using a blue adapter, the bronchoscope passed through the blue adapter into the #7-1/2 ET tube. Endotracheal bronchial tree examined from RB 1 to RB 10 and LB 1 to L B 10. Findings are as follows: 1. Blood-tinged thick secretions were mainly situated at the takeoff of the right lower lobe bronchus and its branches. All suctioned to clear. Bronchial washing up to 40 mL was used. Retrieved most of it. 2. Distorted takeoff of the left upper lobe as well as the lingula. Also samples with suction after injecting 40 mL of BAL was retrieved for cytology. 3. The ET tube was very close to the manav, and adjusted 3 cm above the manav. 4. The bronchoscope after that was removed, no bleeding, no endobronchial lesions, airways looks better and specimen was sent for microbiology and cytology including fungal elements testing. Tolerated the procedure well no immediate complication. Thank you for all.
[2018-10-14] MEDS: INSULIN ASPART 100 UNITS/ML 3 ML PEN SC SCH ×3 (12:35→20:41)
--- NOTE | 2018-10-14 18:13 | History & Physical Report ---
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 follow WBC (3) ST elevation (STEMI) myocardial infarction: Heart alert this morning catheterization showed patent arteries, prior stents chronically occluded vessel unchanged continue aspirin (4) Cavitary lesion of lung: prior Aspergilus infection continue Voriconazole (5) Respiratory acidosis: correct with ventilator History of Present Illness Chief Complaint: intubated Primary Care Provider: Robert Vera MD Patient is 72-year-old male with a significant past medical history of lung CA status post chemotherapeutic and radiation treatments who has had complications most recently including multiple rounds of recurrent pneumonia. Of which, the patient recently did have a LEFT upper lobe infection consistent with Aspergillus pneumonia. He has been on outpatient voriconazole for this, followed by Dr. Rodriguez with infectious disease. Patient had been doing well since his hospitalization in May when he was intubated for respiratory failure. His only other hospitalization since that time was an overnight stay in the beginning of September. His says that he felt short of breath for a few days, he had been outside doing some activities the past few days. Last night he woke up around 2am and told his to call the ambulance because he could not breath. His said that he had some cold symptoms the past few days as well. No fever or chills. In the emergency department, the patient was found to be acutely hypoxic and acidotic. He was intubated for airway protection and respiratory management. EKG was concerning for acute STEMI. Heart alert was called and the patient underwent emergent PTCA. Per sheetfed press operator, the patient was found to have a chronically occluded diagonal vessel and patent LAD vessel. Overall, he felt as though this presentation was more consistent with cardiac strain pattern versus acute coronary process. CTA of the chest was obtained to rule out underlying PE diagnosis versus worsening pneumonia/CHF.. Allergies Allergy/AdvReac Type Severity Reaction Status Date / Time No Known Allergies Allergy Verified 10/14/18 04:23 Home Medications Home Medications Medication Instructions Recorded Confirmed Type ferrous sulfate 325 mg PO Q12 09/17/18 10/14/18 History finasteride 5 mg PO QAM 09/17/18 10/14/18 History glipizide 5 mg PO QAM 09/17/18 10/14/18 History magnesium oxide 400 mg PO QAM 09/17/18 10/14/18 History metformin 1,000 mg PO BID 09/17/18 10/14/18 History metoprolol succinate 25 mg PO QAM 09/17/18 10/14/18 History multivitamin with minerals 1 tab PO DAILY 09/17/18 10/14/18 History [Multiple Vitamin-Minerals] pantoprazole 40 mg PO DAILY 09/17/18 10/14/18 History spironolactone 25 mg PO Q OTHER DAY 09/17/18 10/14/18 History voriconazole 200 mg PO BID 30 Days #60 tab 09/19/18 10/14/18 Rx aspirin 81 mg PO QAM 10/14/18 10/14/18 History Past Med/Surg History Medical History IA (myocardial infarction) (Resolved) Small cell lung cancer (Acute 01/27/16) "DIAGNOSIS: Lung, CHATA, small cell lung carcinoma, [id number], stage IIIA TREATMENT: 1. Status post completion of combined radiation and chemotherapy. Radiation completed 05/02/2016 received 7000 cGy 2. 2 addition cycles of cisplatin/etoposide - Dr. Jeffery Ash" On 05/09/16 13:18 Beatris Curiel wrote "DIAGNOSIS: Lung, CHATA, small cell lung carcinoma, [id number], stage IIIA, limited stage Status post completion of combined radiation and chemotherapy. Radiation completed 05/02/2016 received 7000 cGy" On 05/09/16 12:53 Beatris Curiel wrote "DIAGNOSIS: Lung, CHATA, small cell lung carcinoma, [id number], stage IIIA, limited stage Status post completion of combined radiation and chemotherapy. Radiation completed 05/01/2016 received 7000 cGy" On 02/23/16 13:12 Jacinta Poole wrote "DIAGNOSIS: Lung, CHATA, small cell lung carcinoma, [id number], stage IIIA, limited stage" CAD (coronary artery disease) PVD (peripheral vascular disease) Hx of myocardial infarction HTN (hypertension) BPH (benign prostatic hyperplasia) HLD (hyperlipidemia) Anemia CKD stage 3 due to type 2 diabetes mellitus COPD (chronic obstructive pulmonary disease) DM II (diabetes mellitus, type II), controlled Consolidation lung Left upper lobe pneumonia Pneumonia Surgical History History of heart artery stent (Chronic) Family History Other Diabetes Heart disease Social History marital status: Current Living Situation: Spouse current occupational status: retired Feels Safe at Home: Yes Smoking Status: Never smoker Hx Alcohol Use: No Hx Substance Use: No Beliefs That Will Affect Care: None Communication Ability: intubated Review of Systems Unobtainable due to endotracheal tube Physical Exam 2 Vital Signs (Past 24 Hours): Last Vital Signs Temp 36.8 C 10/14/18 16:00 Pulse 106 H 10/14/18 18:00 Resp 24 10/14/18 18:00 BP 83/62 L 10/14/18 18:00 Pulse Ox 99 10/14/18 18:00 Constitutional: intubated Eyes: PERRL ENMT: external ear and nose normal, oropharynx normal Neck: trachea midline, no thyromegaly Respiratory: Auscultation: + diminished lung sounds and + rhonchi intubated Cardiovascular: Rate/Rhythm: + tachycardic Heart Sounds: normal S1 and normal S2; no murmur Gastrointestinal (Abdomen): normal bowel sounds, soft, nontender, no hepatosplenomegaly Musculoskeletal: Extremities: extremities normal to inspection; no cyanosis and no clubbing Skin: no rashes, warm and dry Neurologic: no focal deficits, intubated and sedated Lymphatic: no cervical or axillary lymphadenopathy Results & Data Laboratory Results Laboratory Results - last 24 hr 10/14/18 10/14/18 10/14/18 03:45 03:45 03:45 WBC 16.77 H RBC 3.88 L Hgb 10.7 L Hct 33.5 L MCV 86.3 MCH 27.6 MCHC 31.9 L RDW Std Deviation 58.6 H RDW Coeff of Molly 18.5 H Plt Count 533 H MPV 10.1 Immature Gran % (Auto) 2.7 Neut % (Auto) 57.5 Lymph % (Auto) 27.3 [place] % (Auto) 8.9 Eos % (Auto) 3.4 Baso % (Auto) 0.2 Immature Gran # (Auto) 0.46 H Neut # (Auto) 9.64 H Lymph # (Auto) 4.57 H [place] # (Auto) 1.49 H Eos # (Auto) 0.57 H Baso # (Auto) 0.04 PT 10.9 INR 1.1 APTT 31.2 H PTT Ratio 1.2 Activ Coag Time Kaolin Sample Site POC pH POC pCO2 POC pO2 POC HCO3 POC Total CO2 POC Base Excess POC ABG O2 Sat Lester Test O2 Delivery Device POC O2 Rate Minute Ventilation POC FiO2 Tidal Volume PEEP Sodium 133 L Potassium 4.2 Chloride 101 Carbon Dioxide 22 Anion Gap 10.0 BUN 36 H Creatinine 1.38 Est Cr Clr Drug Dosing 37.1 Est GFR ( Amer) 58.0 Est GFR (Non-Af Amer) 50.0 BUN/Creatinine Ratio 26.1 H Glucose 289 H POC Glucose Lactate Calcium 8.9 Ionized Calcium Total Bilirubin 0.2 AST 31 ALT 38 Alkaline Phosphatase 324 H POC Troponin I Troponin I < 0.015 NT-Pro-B Natriuret Pep Total Protein 8.2 Albumin 2.6 L Globulin 5.6 H Albumin/Globulin Ratio 0.5 L Lipase 171 Procalcitonin Random Cortisol Urine Color Urine Appearance Urine pH Ur Specific Harrison Urine Protein Urine Glucose (UA) Urine Ketones Urine Blood Urine Nitrite Urine Bilirubin Urine Urobilinogen Ur Leukocyte Esterase Urine WBC (Auto) Urine RBC (Auto) U Hyaline Cast (Auto) U Epithel Cells (Auto) Urine Bacteria (Auto) Ur Renal Epithelial Cell Nasal Screen MRSA (PCR) 10/14/18 10/14/18 10/14/18 03:45 03:45 04:07 WBC RBC Hgb Hct MCV MCH MCHC RDW Std Deviation RDW Coeff of Molly Plt Count MPV Immature Gran % (Auto) Neut % (Auto) Lymph % (Auto) [place] % (Auto) Eos % (Auto) Baso % (Auto) Immature Gran # (Auto) Neut # (Auto) Lymph # (Auto) [place] # (Auto) Eos # (Auto) Baso # (Auto) PT INR APTT PTT Ratio Activ Coag Time Kaolin Sample Site POC pH POC pCO2 POC pO2 POC HCO3 POC Total CO2 POC Base Excess POC ABG O2 Sat Lester Test O2 Delivery Device POC O2 Rate Minute Ventilation POC FiO2 Tidal Volume PEEP Sodium Potassium Chloride Carbon Dioxide Anion Gap BUN Creatinine Est Cr Clr Drug Dosing Est GFR ( Amer) Est GFR (Non-Af Amer) BUN/Creatinine Ratio Glucose POC Glucose Lactate Calcium Ionized Calcium Total Bilirubin AST ALT Alkaline Phosphatase POC Troponin I < 0.03 Troponin I NT-Pro-B Natriuret Pep Total Protein Albumin Globulin Albumin/Globulin Ratio Lipase Procalcitonin 0.17 Random Cortisol 67.59 Urine Color Urine Appearance Urine pH Ur Specific [place] Urine Protein Urine Glucose (UA) Urine Ketones Urine Blood Urine Nitrite Urine Bilirubin Urine Urobilinogen Ur Leukocyte Esterase Urine WBC (Auto) Urine RBC (Auto) U Hyaline Cast (Auto) U Epithel Cells (Auto) Urine Bacteria (Auto) Ur Renal Epithelial Cell Nasal Screen MRSA (PCR) 10/14/18 10/14/18 10/14/18 04:43 04:47 05:09 WBC RBC Hgb Hct MCV MCH MCHC RDW Std Deviation RDW Coeff of Molly Plt Count MPV Immature Gran % (Auto) Neut % (Auto) Lymph % (Auto) [place] % (Auto) Eos % (Auto) Baso % (Auto) Immature Gran # (Auto) Neut # (Auto) Lymph # (Auto) [place] # (Auto) Eos # (Auto) Baso # (Auto) PT INR APTT PTT Ratio Activ Coag Time Kaolin 197 H 208 H Sample Site POC pH 7.10 L* POC pCO2 59 H POC pO2 120 H POC HCO3 18 L POC Total CO2 20 L POC Base Excess -11.0 L POC ABG O2 Sat 97.0 H Lester Test O2 Delivery Device POC O2 Rate Minute Ventilation POC FiO2 Tidal Volume PEEP Sodium Potassium Chloride Carbon Dioxide Anion Gap BUN Creatinine Est Cr Clr Drug Dosing Est GFR ( Amer) Est GFR (Non-Af Amer) BUN/Creatinine Ratio Glucose POC Glucose Lactate Calcium Ionized Calcium Total Bilirubin AST ALT Alkaline Phosphatase POC Troponin I Troponin I NT-Pro-B Natriuret Pep Total Protein Albumin Globulin Albumin/Globulin Ratio Lipase Procalcitonin Random Cortisol Urine Color Urine Appearance Urine pH Ur Specific [place] Urine Protein Urine Glucose (UA) Urine Ketones Urine Blood Urine Nitrite Urine Bilirubin Urine Urobilinogen Ur Leukocyte Esterase Urine WBC (Auto) Urine RBC (Auto) U Hyaline Cast (Auto) U Epithel Cells (Auto) Urine Bacteria (Auto) Ur Renal Epithelial Cell Nasal Screen MRSA (PCR) 10/14/18 10/14/18 10/14/18 05:14 06:25 06:42 WBC RBC Hgb Hct MCV MCH MCHC RDW Std Deviation RDW Coeff of Molly Plt Count MPV Immature Gran % (Auto) Neut % (Auto) Lymph % (Auto) [place] % (Auto) Eos % (Auto) Baso % (Auto) Immature Gran # (Auto) Neut # (Auto) Lymph # (Auto) [place] # (Auto) Eos # (Auto) Baso # (Auto) PT INR APTT PTT Ratio Activ Coag Time Kaolin Sample Site POC pH 7.12 L* POC pCO2 70 H POC pO2 36 L POC HCO3 23 POC Total CO2 25 POC Base Excess -7.0 POC ABG O2 Sat 49.0 L Lester Test O2 Delivery Device POC O2 Rate Minute Ventilation POC FiO2 Tidal Volume PEEP Sodium Potassium Chloride Carbon Dioxide Anion Gap BUN Creatinine Est Cr Clr Drug Dosing Est GFR ( Amer) Est GFR (Non-Af Amer) BUN/Creatinine Ratio Glucose POC Glucose Lactate 3.7 H* Calcium Ionized Calcium Total Bilirubin AST ALT Alkaline Phosphatase POC Troponin I Troponin I NT-Pro-B Natriuret Pep Total Protein Albumin Globulin Albumin/Globulin Ratio Lipase Procalcitonin Random Cortisol Urine Color Urine Appearance Urine pH Ur Specific [place] Urine Protein Urine Glucose (UA) Urine Ketones Urine Blood Urine Nitrite Urine Bilirubin Urine Urobilinogen Ur Leukocyte Esterase Urine WBC (Auto) Urine RBC (Auto) U Hyaline Cast (Auto) U Epithel Cells (Auto) Urine Bacteria (Auto) Ur Renal Epithelial Cell Nasal Screen MRSA (PCR) Negative 10/14/18 10/14/18 10/14/18 06:42 06:42 07:01 WBC RBC Hgb Hct MCV MCH MCHC RDW Std Deviation RDW Coeff of Molly Plt Count MPV Immature Gran % (Auto) Neut % (Auto) Lymph % (Auto) [place] % (Auto) Eos % (Auto) Baso % (Auto) Immature Gran # (Auto) Neut # (Auto) Lymph # (Auto) [place] # (Auto) Eos # (Auto) Baso # (Auto) PT INR APTT PTT Ratio Activ Coag Time Kaolin Sample Site POC pH POC pCO2 POC pO2 POC HCO3 POC Total CO2 POC Base Excess POC ABG O2 Sat Lester Test O2 Delivery Device POC O2 Rate Minute Ventilation POC FiO2 Tidal Volume PEEP Sodium Potassium Chloride Carbon Dioxide Anion Gap BUN Creatinine Est Cr Clr Drug Dosing Est GFR ( Amer) Est GFR (Non-Af Amer) BUN/Creatinine Ratio Glucose POC Glucose Lactate Calcium Ionized Calcium 1.13 Total Bilirubin AST ALT Alkaline Phosphatase POC Troponin I Troponin I 2.770 H* NT-Pro-B Natriuret Pep 7679 H Total Protein Albumin Globulin Albumin/Globulin Ratio Lipase Procalcitonin Random Cortisol Urine Color Yellow Urine Appearance Clear Urine pH 5.0 Ur Specific [place] > 1.045 H Urine Protein 1+ H Urine Glucose (UA) Negative Urine Ketones Negative Urine Blood 2+ H Urine Nitrite Negative Urine Bilirubin Negative Urine Urobilinogen Negative Ur Leukocyte Esterase Negative Urine WBC (Auto) 1-5 Urine RBC (Auto) >30 H U Hyaline Cast (Auto) 5-10 H U Epithel Cells (Auto) >30 H Urine Bacteria (Auto) 1+ H Ur Renal Epithelial Cell Not Reportable Nasal Screen MRSA (PCR) 10/14/18 10/14/18 10/14/18 07:25 07:25 12:30 WBC RBC Hgb Hct MCV MCH MCHC RDW Std Deviation RDW Coeff of Molly Plt Count MPV Immature Gran % (Auto) Neut % (Auto) Lymph % (Auto) [place] % (Auto) Eos % (Auto) Baso % (Auto) Immature Gran # (Auto) Neut # (Auto) Lymph # (Auto) [place] # (Auto) Eos # (Auto) Baso # (Auto) PT INR APTT PTT Ratio Activ Coag Time Kaolin Sample Site R Radial POC pH 7.34 L POC pCO2 44 POC pO2 285 H POC HCO3 24 POC Total CO2 25 POC Base Excess -2.0 POC ABG O2 Sat 100.0 H Lester Test Pass O2 Delivery Device Ventilator POC O2 Rate 18 Minute Ventilation 12.6 POC FiO2 100 Tidal Volume 380 PEEP 10 Sodium Potassium Chloride Carbon Dioxide Anion Gap BUN Creatinine Est Cr Clr Drug Dosing Est GFR ( Amer) Est GFR (Non-Af Amer) BUN/Creatinine Ratio Glucose POC Glucose 266 H 224 H Lactate Calcium Ionized Calcium Total Bilirubin AST ALT Alkaline Phosphatase POC Troponin I Troponin I NT-Pro-B Natriuret Pep Total Protein Albumin Globulin Albumin/Globulin Ratio Lipase Procalcitonin Random Cortisol Urine Color Urine Appearance Urine pH Ur Specific [place] Urine Protein Urine Glucose (UA) Urine Ketones Urine Blood Urine Nitrite Urine Bilirubin Urine Urobilinogen Ur Leukocyte Esterase Urine WBC (Auto) Urine RBC (Auto) U Hyaline Cast (Auto) U Epithel Cells (Auto) Urine Bacteria (Auto) Ur Renal Epithelial Cell Nasal Screen MRSA (PCR) 10/14/18 10/14/18 10/14/18 13:38 14:36 15:39 WBC RBC Hgb Hct MCV MCH MCHC RDW Std Deviation RDW Coeff of Molly Plt Count MPV Immature Gran % (Auto) Neut % (Auto) Lymph % (Auto) [place] % (Auto) Eos % (Auto) Baso % (Auto) Immature Gran # (Auto) Neut # (Auto) Lymph # (Auto) [place] # (Auto) Eos # (Auto) Baso # (Auto) PT INR APTT PTT Ratio Activ Coag Time Kaolin Sample Site POC pH POC pCO2 POC pO2 POC HCO3 POC Total CO2 POC Base Excess POC ABG O2 Sat Lester Test O2 Delivery Device POC O2 Rate Minute Ventilation POC FiO2 Tidal Volume PEEP Sodium Potassium Chloride Carbon Dioxide Anion Gap BUN Creatinine Est Cr Clr Drug Dosing Est GFR ( Amer) Est GFR (Non-Af Amer) BUN/Creatinine Ratio Glucose POC Glucose 209 H 176 H 162 H Lactate Calcium Ionized Calcium Total Bilirubin AST ALT Alkaline Phosphatase POC Troponin I Troponin I NT-Pro-B Natriuret Pep Total Protein Albumin Globulin Albumin/Globulin Ratio Lipase Procalcitonin Random Cortisol Urine Color Urine Appearance Urine pH Ur Specific [place] Urine Protein Urine Glucose (UA) Urine Ketones Urine Blood Urine Nitrite Urine Bilirubin Urine Urobilinogen Ur Leukocyte Esterase Urine WBC (Auto) Urine RBC (Auto) U Hyaline Cast (Auto) U Epithel Cells (Auto) Urine Bacteria (Auto) Ur Renal Epithelial Cell Nasal Screen MRSA (PCR) 10/14/18 10/14/18 16:35 17:34 WBC RBC Hgb Hct MCV MCH MCHC RDW Std Deviation RDW Coeff of Molly Plt Count MPV Immature Gran % (Auto) Neut % (Auto) Lymph % (Auto) [place] % (Auto) Eos % (Auto) Baso % (Auto) Immature Gran # (Auto) Neut # (Auto) Lymph # (Auto) [place] # (Auto) Eos # (Auto) Baso # (Auto) PT INR APTT PTT Ratio Activ Coag Time Kaolin Sample Site POC pH POC pCO2 POC pO2 POC HCO3 POC Total CO2 POC Base Excess POC ABG O2 Sat Lester Test O2 Delivery Device POC O2 Rate Minute Ventilation POC FiO2 Tidal Volume PEEP Sodium Potassium Chloride Carbon Dioxide Anion Gap BUN Creatinine Est Cr Clr Drug Dosing Est GFR ( Amer) Est GFR (Non-Af Amer) BUN/Creatinine Ratio Glucose POC Glucose 169 H 159 H Lactate Calcium Ionized Calcium Total Bilirubin AST ALT Alkaline Phosphatase POC Troponin I Troponin I NT-Pro-B Natriuret Pep Total Protein Albumin Globulin Albumin/Globulin Ratio Lipase Procalcitonin Random Cortisol Urine Color Urine Appearance Urine pH Ur Specific [place] Urine Protein Urine Glucose (UA) Urine Ketones Urine Blood Urine Nitrite Urine Bilirubin Urine Urobilinogen Ur Leukocyte Esterase Urine WBC (Auto) Urine RBC (Auto) U Hyaline Cast (Auto) U Epithel Cells (Auto) Urine Bacteria (Auto) Ur Renal Epithelial Cell Nasal Screen MRSA (PCR) Diagnostic Findings CTA chest IMPRESSION: 1. Cardiomegaly with pulmonary edema and trace bilateral pleural effusions. 2. Additional multifocal alveolar and groundglass opacities throughout the bilateral lungs suggest alveolar pulmonary edema with pneumonia or aspiration pneumonitis also considered. 3. Severe bullous emphysema with chronic fibrotic changes. 4. Prior left upper lobectomy with chronic cavitary focus of the left upper lung communicating with the left tracheobronchial tree. 5. Additional findings as above. Medications Administered Current Inpatient Medications Dextrose (Dextrose 50%) 25 - 50 ml IV UD PRN; Protocol PRN Reason: Hypoglycemia Protocol Stop: 11/13/18 10:16 Fentanyl Citrate (Fentanyl Citrate) 50 mcg IV Q2H PRN PRN Reason: Moderate Pain (4,5,6) Stop: 10/28/18 05:49 Last Admin: 10/14/18 11:03 Dose: 50 mcg Glucagon (Glucagen) 1 mg IM UD PRN; Protocol PRN Reason: Hypoglycemia Protocol Stop: 11/13/18 10:16 Glucose (Glucose 40%) 15 - 30 gm PO UD PRN; Protocol PRN Reason: Hypoglycemia Protocol Stop: 11/13/18 10:16 Glucose (Dex4 Glucose) 4 - 8 tabs PO UD PRN; Protocol PRN Reason: Hypoglycemia Protocol Stop: 11/13/18 10:16 Pantoprazole Sodium 40 mg/ (Syringe) 10 mls @ 5 mls/min IV DAILY@1100 [facility]MA Stop: 11/13/18 10:59 Last Admin: 10/14/18 11:21 Dose: 5 mls/min Midazolam HCl (Versed) 125 mg in 250 mls @ 6 mls/hr IV .Q24H [facility]; Protocol Stop: 10/15/18 05:49 Last Titration: 10/14/18 14:14 Dose: 3 mg/hr, 6 mls/hr Voriconazole 230 mg/ Sodium (Chloride) 100 mls @ 50 mls/hr IV Q12H [facility] Stop: 11/13/18 08:59 Last Infusion: 10/14/18 11:24 Dose: Infused Methylprednisolone 40 mg/ (Syringe) 0.64 mls @ 1.5 mls/min IV Q8H [facility] Stop: 11/13/18 11:59 Last Admin: 10/14/18 11:24 Dose: 1.5 mls/min Vancomycin HCl 1,000 mg/ (Sodium Chloride) 270 mls @ 125 mls/hr IV Q24H [facility] Stop: 10/22/18 01:59 Insulin Human Regular 250 (units/ Sodium Chloride) 250 mls @ 1.1 mls/hr IV .Q24H [facility]; Protocol Stop: 11/13/18 10:29 Last Titration: 10/14/18 17:30 Dose: 1.1 units/hr, 1.1 mls/hr Insulin Aspart (Novolog Flexpen) 0 units SC [facility] Stop: 11/13/18 12:59 Last Admin: 10/14/18 12:35 Dose: Not Given Miscellaneous (Icu Protocol For Hyperglycemia) 1 ea N/A PRN PRN; Protocol PRN Reason: Hyperglycemia Protocol Stop: 10/16/18 06:35 Miscellaneous (Carbohydrates For Hypoglycemia) 15 - 30 gm PO PRN PRN PRN Reason: Hypoglycemia Treatment Stop: 11/13/18 10:16 Miscellaneous Information (Consult) 1 ea N/A UD PRN PRN Reason: Consult Stop: 11/13/18 05:46 Miscellaneous Information (Consult) 1 ea N/A UD PRN PRN Reason: Consult Stop: 11/13/18 05:46 Miscellaneous Information () 1 ea N/A UD PRN PRN Reason: Consult Stop: 11/13/18 06:54 Miscellaneous Information (Consult Glycemic Management Pharmacy) 1 ea N/A UD PRN PRN Reason: Consult Stop: 11/13/18 11:50 Code Status & VTE Plan Code Status full code VTE Prophylaxis Plan VTE Prophylaxis will be ordered: Yes _ (1) ST elevation (STEMI) myocardial infarction Involved coronary artery: unspecified coronary artery Qualified Code(s): I21.3 - ST elevation (STEMI) myocardial infarction of unspecified site
[2018-10-15] MEDS: fentaNYL citrate 100 MCG/2 ML VIAL IV PRN (00:54)
[2018-10-15] MEDS ORDERED: VANCOMYCIN HCL 1,000 MG in SODIUM CHLORIDE 0.9% 250 ML IV SCH (02:00)
[2018-10-15] MEDS: methylPREDNISolone 40 MG in SYRINGE 0 ML IV SCH ×3 (03:59→21:01)
[2018-10-15 04:28] LABS: Hematocrit (blood only) 26.7 % (42-52); Hemoglobin 8.4 g/dL (14.0-18.0); Mean Corpuscular Hgb Conc 31.5 g/dL (32-36); Mean Corpuscular Volume 84.5 fL (80-100); Mean Platelet Volume 9.8 fL (7.4-10.4); Platelet Count 310 K/uL (130-400); RDW Coefficient of Variation 18.7 % (11.5-14.5); RDW Standard Deviation 57.5 fL (36.4-46.3); Red Blood Count 3.16 M/uL (4.7-6.1); White Blood Count 22.29 K/uL (4.8-10.8)
[2018-10-15 04:58] LABS: BUN Creatinine Ratio 33.5 (10-20); Calcium 8.6 mg/dl (8.5-10.1); Creatinine Clr Calc Pharmacy 37.9 ml/min; Est GFR (African American) 57.5; Est GFR (Non-African American) 49.6; Magnesium 1.7 mg/dl (1.8-2.4); Phosphorus 5.2 mg/dl (2.5-4.9)
[2018-10-15 05:04] LABS: Basophils # (auto) 0.01 K/uL (0-0.2); Immature Granulocytes # (auto) 0.13 K/uL (0.00-0.02); Immature Granulocytes % (auto) 0.6 %; Lymphocytes # (auto) 0.51 K/uL (1.2-3.4); Lymphocytes % (auto) 2.3 %; Monocytes # (auto) 1.05 K/uL (0.11-0.59); Monocytes % (auto) 4.7 %; Neutrophils # (auto) 20.59 K/uL (1.4-6.5); Neutrophils % (auto) 92.4 %; RBC Morphology Unremarkable
[2018-10-15 05:53] LABS: iSTAT Arterial Blood Gas HCO3 24 meg/L (19-24); iSTAT Carbon Dioxide 25 mEq/l (24-31); iSTAT FiO2 35 %
[2018-10-15 07:06] LABS: Estimated Average Glucose 146 mg/dl
--- NOTE | 2018-10-15 07:16 | Hospitalist Progress Note ---
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 (3) ST elevation (STEMI) myocardial infarction: Heart alert this admission catheterization showed patent arteries, prior stents chronically occluded vessel unchanged continue aspirin (4) Cavitary lesion of lung: prior Aspergilus infection remains on Voriconazole (5) Respiratory acidosis: correct with ventilator Subjective pt is intubated and ventilated, has some resting tachycardia and otherwise is stable Review of Systems Unobtainable due to endotracheal tube Physical Exam 2 Vital Signs (Past 24 Hours): Last Vital Signs Temp 36.5 C 10/15/18 05:57 Pulse 118 H 10/15/18 05:42 Resp 25 H 10/15/18 05:42 BP 104/73 10/15/18 02:00 Pulse Ox 99 10/15/18 05:42 Constitutional: well developed and well nourished Neck: trachea midline Thyroid: normal thyroid Respiratory: Auscultation: + rhonchi (bilaterally as wound be expected for a ventilated pt, good chest rise and air movement) Cardiovascular: Rate/Rhythm: regular rhythm and + tachycardic Gastrointestinal (Abdomen): normal bowel sounds, soft, nontender, no hepatosplenomegaly Musculoskeletal: Head/Neck/Chest: normocephalic and head atraumatic Skin: no rashes, warm and dry Psychiatric: A+Ox3, euthymic affect _ (1) ST elevation (STEMI) myocardial infarction Involved coronary artery: unspecified coronary artery Qualified Code(s): I21.3 - ST elevation (STEMI) myocardial infarction of unspecified site
--- NOTE | 2018-10-15 07:37 | XRay Report ---
XR chest 1V portable CLINICAL HISTORY: f/u dyspnea COMPARISON STUDY: 10/14/2018 FINDINGS: Improved aeration right lung base. Moderate residual. Somewhat improved aeration left lung base. Endotracheal tube 2.6 cm above the manav. Unchanging pleural thickening left pulmonary apex. U nchanging position of a central catheter in superior vena cava. Placement of a nasogastric tube inferior to the diaphragm. IMPRESSION: 1. Improving basilar infiltrates. 2. Endotracheal tube 2.6 cm above the manav. 3. Nasogastric tube inferior to the diaphragm presumably within the stomach. The above report was generated using voice recognition software. It may contain grammatical, syntax or spelling errors. Electronically signed by: Ezekiel Collier M.D. 10/15/2018 7:36 AM
[2018-10-15] MEDS ORDERED: CEFEPIME CONSULT ACTIVE PRN (08:17)
[2018-10-15] MEDS ORDERED: CEFEPIME 2,000 MG in SYRINGE 7.5 ML IV STA (08:42)
[2018-10-15] MEDS ORDERED: INSULIN GLARGINE SOLOSTAR 100 UNITS/ML 3 ML PEN SC ONE ×2 (08:45→20:00)
[2018-10-15] MEDS: INSULIN ASPART 100 UNITS/ML 3 ML PEN SC SCH ×4 (09:05→20:51)
[2018-10-15] MEDS: VORICONAZOLE IV SCH ×2 (09:05→21:01)
[2018-10-15] MEDS: SODIUM CHLORIDE 0.9% IV SCH ×2 (09:05→21:01)
--- NOTE | 2018-10-15 11:03 | Pharmacy Report ---
Pharmacy Glycemic Short Note 2 - Date of Service October 15, 2018 - Glycemic Short BSG Results (Last 24 hours): 10/14/18 10/14/18 10/14/18 12:30 13:38 14:36 Glucose POC Glucose 224 H 209 H 176 H 10/14/18 10/14/18 10/14/18 15:39 16:35 17:34 Glucose POC Glucose 162 H 169 H 159 H 10/14/18 10/14/18 10/14/18 19:49 21:00 23:35 Glucose POC Glucose 214 H 154 H 168 H 10/15/18 10/15/18 10/15/18 01:34 03:35 04:20 Glucose 162 H POC Glucose 171 H 164 H 10/15/18 10/15/18 10/15/18 05:02 07:20 09:10 Glucose POC Glucose 187 H 197 H 214 H Outpatient Anti-diabetic Regimen: * glipizide 5 mg Po daily plus metformin 1000 mg BID * A1c = 6.7 % 05/2018 Risk Factors for Insulin Resistance: * Steroids: methylprednisolone 40 mg IV q8 hours * Infection: HAP * Recent Surgery: s/p PCI POD 1 * Diet: NPO * Mechanical Ventilation: YES ASSESSMENT: * Mr Aden is a 72 y/o M known to our service with well controlled T2DM on oral agents alone in ICU with respiratory failure 2nd HAP. Patient is currently intubated and receiving multiple antibiotics and steroids. * Previous admissions suggest that patient's BSGs are labile with steroid involvement * Plan for possible extubation today. No anticipated changes to steroid dose for now * Insulin drip has been running at a stable and low rate of 0.8 units/hr x10 hours. OK to attempt transition to basal/bolus per Dr. Ling * Will give a low dose of Lantus in attempt to transition, roughly 50% of total daily dose based on current stable insulin drip rate - patient with history of severe AM hypoglycemia limiting aggressive basal insulin dosing * Will resume similar Novolog parameters as previous admissions while on similar dose of steroids - of note, this is slightly tighter than weight-based severe stress estimate PLAN * Lantus 10 units SC x1 (administered @ 0900) * Stop insulin drip @1500 (6 hr after Lantus administration) or sooner if insulin drip protocol notes to hold infusion * Novolog q4h starting @ 1600 * Goal range: 120-160 mg/dL * Correction factor: 25 mg/dL/unit * Carb ratio: 9 g CHO/unit
[2018-10-15] MEDS: INSULIN REGULAR 250 UNITS in SODIUM CHLORIDE 0.9% 247.5 ML IV SCH (11:22)
[2018-10-15] MEDS: VANCOMYCIN HCL 1,000 MG in SODIUM CHLORIDE 0.9% 250 ML IV SCH (11:22)
[2018-10-15] MEDS: PANTOprazole 40 MG in SYRINGE 0 ML IV SCH (11:23)
[2018-10-15] MEDS: HEPARIN SOD 5,000 UNIT/0.5 ML VIAL SQ SCH ×2 (11:24→20:52)
--- NOTE | 2018-10-15 12:30 | Pharmacy Report ---
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 Zosyn switched to cefepime today 2nd lesser risk of further nephrotoxicity while on vancomycin (and voriconazole IV) * SCr still elevated from baseline, but stable. eCrCL 38 mL/min Vancomycin * Goal trough 15-20 mcg/mL * High risk patient - highly concerned for nephrotoxicity if level supratherapeutic, but also highly concerned for suboptimal effect in critically ill patient if level subtherapeutic * Obtained a STAT level (6 hours after dose this AM) - anticipated that this would be more similar to a peak (vs. trough) and then a 2nd level could be obtained later today to estimate patient-specific PK. However, this level was surprisingly lower than anticipated at 20.5 mcg/mL. Therefore patient will require a dose much sooner than anticipated. * Previous admission when renal function was *better* than it is now - dose of 1000 mg IV q12h produced a level of ~15 mcg/mL * Slightly longer interval selected this visit 2nd renal impairment * Will obtain very early trough level, prior to 2nd dose tomorrow to help ensure level stays in goal range Voriconazole * Continue 4mg/kg (230mg) IV Q12H * NOTE: pt's eCrCl is less than 50 mL/min - must monitor for decline in renal fxn as the IV vehicle to deliver this medication accumulates in renal impairment and could result in nephrotoxicity. PO/enteral delivery preferred when eCrCl less than 50 mL/min. This was discussed on ICU rounds today - continue IV dose for now Plan * Vancomycin 1000 mg IV q16h, starting @ 1000 today * Trough 10/16/18 @ 0130 Pharmacy will continue to follow and will adjust dose/frequency as necessary. Thank you.
--- NOTE | 2018-10-15 13:09 | Critical Care Progress Note ---
Date of Service October 15, 2018 Assessment & Plan (1) Respiratory failure with hypoxia and hypercapnia: Impression: 1. Acute on chronic hypercapnic respiratory failure. Requiring intubation. 2. Multilobar pneumonia, thought to be related to aspiration. 3. Non-small cell lung CA, with left upper lobe cavity, in remission, did not require radiation or chemotherapy recently. 4. 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 5. Advanced COPD, gold level 3, home O2 dependent. 6. Diabetes mellitus. 7. Chronic kidney disease. 8. Peripheral arterial disease. Plan: 1. Continue CPAP trial. 2. Obtain ABG. 3. Once the patient is fully awake will extubate the patient. 4. The patient will require BiPAP as needed and as well as at nighttime. 5. Continue voriconazole as it was carried on prior to his admission to the hospital. 6. Agree with pharmacy regarding changing antibiotics of ceftriaxone to avoid renal toxicity. Appreciate Sinai Bruner, PHD, input from pharmacy. 7. Discontinue Versed. 8. Discontinue fentanyl. 9. Extubate the patient. 10. Continue DVT prophylaxis. 11. Update the family. 12. Hold tube feeding. 13. Continue bronchodilators. 14. Change steroids to twice daily. 15. Patient continued to be full code. Discussed with the staff on rounds and details, critical care time spent with the patient was 45 minutes. Subjective The patient remains intubated, sedated, review of system was not obtainable. Tolerating CPAP trial since the morning. Tachycardia has been persistent. Physical Exam 2 Vital Signs (Past 24 Hours): Last Vital Signs Temp 36.8 C 10/15/18 08:00 Pulse 119 H 10/15/18 10:00 Resp 24 10/15/18 08:00 BP 114/81 10/15/18 10:00 Pulse Ox 98 10/15/18 10:00 Physical Exam: Vital signs are stable, blood pressure 123/80, map is 91, heart rate is 122 normal sinus rhythm, respiratory rate is 26, make an tidal volume of 400, open his eyes but still lethargic, no LE, no stridor, S1-S2 regular rate and rhythm, tachycardic, abdomen is benign, no edema. Neurologically difficult to assess. No skin rash. Results & Data Laboratory Results His labs were reviewed which showed elevated white count, improvement in bandemia, BUN and creatinine has been stable. Microbiology from the bronchoscopy did not reveal any evidence of bacteriology. Diagnostic Findings No new imaging.
[2018-10-15 13:46] LABS: iSTAT Allen Test Pass; iSTAT Arterial Blood Gas HCO3 22 meg/L (19-24); iSTAT Carbon Dioxide 23 mEq/l (24-31); iSTAT FiO2 30 %
[2018-10-15 13:58] LABS: Hematocrit (blood only) 27.1 % (42-52); Hemoglobin 8.7 g/dL (14.0-18.0); Mean Corpuscular Hgb Conc 32.1 g/dL (32-36); Mean Corpuscular Volume 84.2 fL (80-100); Mean Platelet Volume 10.1 fL (7.4-10.4); Platelet Count 331 K/uL (130-400); RDW Coefficient of Variation 18.7 % (11.5-14.5); RDW Standard Deviation 57.8 fL (36.4-46.3); Red Blood Count 3.22 M/uL (4.7-6.1); White Blood Count 20.93 K/uL (4.8-10.8)
[2018-10-15] MEDS ORDERED: INSULIN DRIP STOP ORDER ONE (15:00)
[2018-10-15] MEDS ORDERED: INSULIN GLARGINE SOLOSTAR 100 UNITS/ML 3 ML PEN SC STA (15:02)
[2018-10-15] MEDS: CEFEPIME 2,000 MG in SYRINGE 7.5 ML IV SCH (21:00)
[2018-10-16] MEDS: INSULIN ASPART 100 UNITS/ML 3 ML PEN SC SCH ×6 (00:04→21:44)
[2018-10-16] MEDS ORDERED: VANCOMYCIN TROUGH ONE (01:30)
[2018-10-16 02:08] LABS: Calcium 8.9 mg/dl (8.5-10.1); Creatinine Clr Calc Pharmacy 32.4 ml/min; Est GFR (African American) 51.2; Est GFR (Non-African American) 44.1; Potassium 4.6 mmol/L (3.5-5.1)
[2018-10-16] MEDS: VANCOMYCIN HCL 1,000 MG in SODIUM CHLORIDE 0.9% 250 ML IV SCH (02:57)
--- NOTE | 2018-10-16 07:31 | XRay Report ---
XR chest 1V portable CLINICAL HISTORY: f/u COMPARISON STUDY: Chest CT October 14, 2018 and chest radiograph October 15, 2018. FINDINGS: Left subclavian [id number] is in place. Left upper lobe cavity is unchanged. There is no pneumothorax. Left lung volume loss is again noted. There are small bilateral pleural effusions. Rig ht lower lung airspace opacity has progressed. Left lung airspace opacity is similar. IMPRESSION: 1. Increase in right lower lung pneumonia. No significant change in appearance of the left lung with a left apical cavity and left lung airspace opacity. 2. Small bilateral pleural effusions. 3. Severe emphysema. Electronically signed by: Jose Prieto M.D. 10/16/2018 7:30 AM
[2018-10-16] MEDS ORDERED: INSULIN GLARGINE SOLOSTAR 100 UNITS/ML 3 ML PEN SC ONE (08:00)
[2018-10-16] MEDS: HEPARIN SOD 5,000 UNIT/0.5 ML VIAL SQ SCH ×2 (08:02→21:41)
[2018-10-16] MEDS: CEFEPIME 2,000 MG in SYRINGE 7.5 ML IV SCH ×2 (08:06→21:41)
[2018-10-16] MEDS: SODIUM CHLORIDE 0.9% IV SCH (08:07)
[2018-10-16] MEDS: VORICONAZOLE IV SCH (08:07)
--- NOTE | 2018-10-16 08:57 | Pharmacy Report ---
Pharmacy Abx Dose Short Note - Date of Service October 16, 2018 - Assessment & Plan Assessment 72 year old M receiving Vancomycin 1000mg IV Q16, Cefepime 2gm IV Q12, and Voriconazole 230mg IV Q12 for treatment of HAP with h/o aspergillus. Day # 3 of antimicrobial therapy. Renal function still not at baseline, SCr elevated today. Laboratory Tests 10/16/18 01:25 Vancomycin Trough 22.2 Plan Vancomycin * As previously noted: high risk patient - concern for nephrotoxicity if level supratherapeutic, but also highly concerned for suboptimal effect in critically ill patient if level subtherapeutic. * Trough level of 22.2 mcg/mL is slightly supratherapeutic. * Due to decline in renal function today will tweak dosing interval to 1000 mg IV every 18 hours * Goal trough level 15 to 20 mcg/mL * Will plan to check a trough with the third dose at 0800 on 10/18. However, if renal function drastically improves or declines will check sooner. Cefepime * Target dose: 2gm Q8 * Continue 2gm IV Q12 for CrCl 30-60 mL/min. Voriconazole * Continue 4mg/kg (230mg) IV Q12H * NOTE: pt's eCrCl is less than 50 mL/min - must monitor for decline in renal fxn as the IV vehicle to deliver this medication accumulates in renal impairment and could result in nephrotoxicity. PO/enteral delivery preferred when eCrCl less than 50 mL/min. Pharmacy will continue to follow and will adjust dose/frequency as necessary. Thank you.
[2018-10-16] MEDS: PANTOprazole 40 MG in SYRINGE 0 ML IV SCH (10:05)
[2018-10-16] MEDS: methylPREDNISolone 40 MG in SYRINGE 0 ML IV SCH ×2 (10:06→21:41)
--- NOTE | 2018-10-16 10:13 | Hospitalist Progress Note ---
Date of Service October 16, 2018 Assessment & Plan (1) Respiratory failure with hypoxia and hypercapnia: This patient is a 72-year-old male with history of chronic systolic CHF, ischemic cardiomyopathy, CAD status post stents x2 in the past, severe COPD, aspergilloma with hemoptysis, small cell lung cancer, PAD, HTN, BPH, hyperlipidemia, anemia, CKD stage III, DM 2, and GERD, who presented to the ER with acute onset of shortness of breath, and was in acute on chronic hypoxic and hypercapnic respiratory failure requiring intubation in the ER. He also had ST elevation on his EKG and was taken as a heart alert to the cardiac catheterization lab urgently. He was found to have what was more likely a chronic occlusion of a diagonal vessel that was unamenable to angioplasty and/ or stenting. He was then transferred to the ICU for care. Acute on chronic hypoxic and hypercapnic respiratory failure-secondary to severe COPD, multifocal pneumonia, and acute CHF as below, as well as ST elevation [place]. Now extubated as of 10/15 and on nasal cannula -Continue Solu Medrol iv for underlying lung disease -Diuresing for CHF -Treating with antibiotics for pneumonia -Appreciate pulmonology recommendations (2) Acute on chronic systolic (congestive) heart failure: With ST elevation [place] on admission, with markedly elevated LVEDP on cardiac catheterization, proBNP is elevated at 7000, and acute hypoxic respiratory failure. Echocardiogram from a few months ago showed LVEF 15-20%, -Cardiology is consulted-gave 20 mg IV Lasix today x1 and will reassess daily due to borderline low blood pressures -Follow I's and O's, daily weights, change to low-sodium diet -Add on fluid restriction of 1800 mL's/24 hours -Holding Aldactone for now, reassess BMP in the morning and if creatinine stable , can restart home dose of Aldactone (3) Multifocal pneumonia: With multifocal pneumonia likely secondary to aspiration as per pulmonology. Seen by speech therapy and recommended to have mechanical soft diet -Initially treated with cefepime and vancomycin, vancomycin discontinued today as MRSA swab negative -continue treatment with cefepime although this may not necessarily cover for anaerobes with aspiration pneumonia-consider switching to Zosyn -Continue Voriconazole to treat chronic aspergillus infection (4) Ischemic cardiomyopathy: LVEF 15-20% on echo from 05/2018 as above -Diuresing as above (5) ST elevation (STEMI) myocardial infarction: Heart alert this admission catheterization showed patent arteries, prior stents chronically occluded diagonal vessel unchanged Troponin was 2.7 after admission and was not trended-no need to trend at this point as will not change our management -Now taking p.o.-okay to restart aspirin, metoprolol especially in the setting of sinus tachycardia -Consult cardiology placed today -Continue telemetry monitoring (6) Cavitary lesion of lung: prior Aspergillus infection remains on Voriconazole for several months as per infectious disease outpatient recommendations (7) Respiratory acidosis: Resolved now with ventilation -Continue BiPAP at nighttime as needed (8) Hemoptysis: Secondary to aspergillosis, no treatment for this at this time other than voriconazole -Followed by thoracic surgery and is supposed to have follow-up with Dr. Srivastava in the office soon to discuss possible referral to a specialized surgeon in [place] (9) Anemia: Hemoglobin stable in the 8s. Is borderline microcytic. Iron studies from earlier in 2018 point more towards combination of iron deficiency anemia and anemia of chronic disease. B12 level was in the 300s in 06/2018, folate not checked -Follow CBC -Continue ferrous sulfate twice daily (10) CAD (coronary artery disease): With ST elevation [place] upon admission here with ischemic cardiomyopathy With history of multiple drug-eluting stents placed in the past Cardiac catheterization here with chronically occluded diagonal branch vessel but other stents patent and LAD -Continue aspirin, metoprolol-all restarted today He has had issues with ELLI inhibitors causing hypotension in the past and therefore he is not on them at this time -He is not on Plavix due to history of hemoptysis and epistaxis -He is not on a statin and unclear if this is due to being on antifungals?-We will likely need to hold off on restarting statin at this time -Cardiology following-consult appreciated (11) HTN (hypertension): Blood pressures on the low side -Continue metoprolol succinate 25 mg once daily (12) BPH (benign prostatic hyperplasia): Stable, Dawson catheter in place -Continue finasteride 5 mg once daily -We will leave Dawson until tomorrow as he is still very weak and drowsy today to get out of bed to urinate (13) HLD (hyperlipidemia): Stable -, But is on voriconazole and this could interact so we will hold off on starting statin for now (14) CKD stage 3 due to type 2 diabetes mellitus: Baseline creatinine around 1.3 Creatinine today up to 1.53 -He is volume overloaded and likely has cardiorenal syndrome due to severe CHF -Diuresing as above with IV Lasix -Follow BMP in the morning -Avoid nephrotoxins -Renally dose medications when appropriate (15) COPD (chronic obstructive pulmonary disease): Severe, on chronic O2 with acute on chronic respiratory failure as above -Treating with IV steroids which were tapered down today -Add on scheduled leave albuterol nebulizers -It appears he is not on any long-term controlling agents at home -Appreciate pulmonology consultation (16) DM II (diabetes mellitus, type II), controlled: Well-controlled, hemoglobin A1c from 10/15/18 is 6.7% -Holding home glipizide and metformin -Continue basal/bolus insulin regimen while here (17) Aspergillus fumigatus: Being treated for this as an outpatient with voriconazole -Convert to p.o. voriconazole as per home dosing here -Follow-up with infectious disease as an outpatient -Appreciate pulmonology recommendations -He is at high risk for gross hemoptysis (18) DVT prophylaxis: Heparin SQ Disposition-okay to transfer out of ICU to telemetry unit today Will need PT/OT evaluations to see if we will need rehab placement Is a full code, but given significant end-stage CHF and COPD, need to consider palliative consultation to discuss end-of-life issues Subjective Patient very drowsy when I saw him this morning. He was extubated yesterday. He reports he still has intermittent hemoptysis at home. He denies current shortness of breath or chest pain. He does not remember exactly why he is in the hospital. I discussed the case with the counter intelligence agent and the glue maker. Was seen by speech therapy this morning recommended a mechanical soft diet. There was concern for aspiration pneumonitis as per pulmonology. Telemetry reviewed and with sinus tachycardia and one 3 beat run of PVCs Review of Systems All systems reviewed & are unremarkable except as noted in HPI & below Physical Exam 2 Vital Signs (Past 24 Hours): Last Vital Signs Temp 36.4 C L 10/16/18 08:00 Pulse 117 H 10/16/18 09:01 Resp 16 10/16/18 09:01 BP 113/78 10/16/18 09:01 Pulse Ox 97 10/16/18 09:01 Constitutional: + ill appearing and + thin Eyes: PERRL, conjunctivae normal, anicteric sclerae ENMT: Ears: no hearing impairment Neck: trachea midline, no thyromegaly Respiratory: normal respiratory effort and + cough Auscultation: + rhonchi (On the left) Cardiovascular: Rate/Rhythm: regular rhythm and + tachycardic Heart Sounds : no murmur Extremities: no edema Gastrointestinal (Abdomen): normal bowel sounds, soft, nontender, no hepatosplenomegaly Musculoskeletal: Extremities: extremities normal to inspection; no cyanosis and no clubbing Skin: no rashes, warm and dry Neurologic: moves all extremities and awake (But drowsy); no focal motor deficits Psychiatric: Orientation: oriented to person and oriented to place Eye Contact: + fair eye contact Results & Data Laboratory Results 10/16/18 10/16/18 10/16/18 Range/Units 16:04 11:48 08:00 Sodium (136-145) mmol/L Potassium (3.5-5.1) mmol/L Chloride (98-107) mmol/L Carbon Dioxide (21-32) mmol/L Anion Gap (3-11) BUN (7-18) mg/dl Creatinine (0.6-1.4) mg/dl Est Cr Clr Drug Dosing ml/min Est GFR ( Amer) Est GFR (Non-Af Amer) BUN/Creatinine Ratio (10-20) Glucose (70-99) mg/dl POC Glucose 249 H 202 H 197 H (70-99) Calcium (8.5-10.1) mg/dl Vancomycin Trough (See Comment) mcg/ml 10/16/18 10/16/18 10/16/18 Range/Units 04:37 01:25 01:25 Sodium 143 (136-145) mmol/L Potassium 4.6 (3.5-5.1) mmol/L Chloride 109 H (98-107) mmol/L Carbon Dioxide 24 (21-32) mmol/L Anion Gap 10.0 (3-11) BUN 69 H (7-18) mg/dl Creatinine 1.53 H (0.6-1.4) mg/dl Est Cr Clr Drug Dosing 32.4 ml/min Est GFR ( Amer) 51.2 Est GFR (Non-Af Amer) 44.1 BUN/Creatinine Ratio 45.0 H (10-20) Glucose 175 H (70-99) mg/dl POC Glucose 174 H (70-99) Calcium 8.9 (8.5-10.1) mg/dl Vancomycin Trough 22.2 (See Comment) mcg/ml 10/15/18 10/15/18 Range/Units 23:49 20:44 Sodium (136-145) mmol/L Potassium (3.5-5.1) mmol/L Chloride (98-107) mmol/L Carbon Dioxide (21-32) mmol/L Anion Gap (3-11) BUN (7-18) mg/dl Creatinine (0.6-1.4) mg/dl Est Cr Clr Drug Dosing ml/min Est GFR ( Amer) Est GFR (Non-Af Amer) BUN/Creatinine Ratio (10-20) Glucose (70-99) mg/dl POC Glucose 191 H 195 H (70-99) Calcium (8.5-10.1) mg/dl Vancomycin Trough (See Comment) mcg/ml _ (1) BPH (benign prostatic hyperplasia) Lower urinary tract symptom presence: symptoms absent Qualified Code(s): N40.0 - Benign prostatic hyperplasia without lower urinary tract symptoms (2) CAD (coronary artery disease) Associated angina: without angina Coronary Disease-Associated Artery/Lesion type: [place] artery [place] vs. transplanted heart: [place] heart Qualified Code (s): I25.10 - Atherosclerotic heart disease of [place] coronary artery without angina pectoris (3) Anemia Anemia type: unspecified type Bone marrow failure anemia type: Chronic kidney disease stage: Folate deficiency anemia type: Hemolytic anemia type: Iron deficiency anemia type: Other causes of anemia: Vitamin B12 deficiency anemia type: Qualified Code(s): D64.9 - Anemia, unspecified (4) HLD (hyperlipidemia) Hyperlipidemia type: unspecified Qualified Code(s): E78.5 - Hyperlipidemia, unspecified (5) Respiratory failure with hypoxia and hypercapnia Chronicity: acute on chronic Qualified Code(s): J96.21 - Acute and chronic respiratory failure with hypoxia; J96.22 - Acute and chronic respiratory failure with hypercapnia (6) ST elevation (STEMI) myocardial infarction Involved coronary artery: unspecified coronary artery Qualified Code(s): I21.3 - ST elevation (STEMI) myocardial infarction of unspecified site (7) DM II (diabetes mellitus, type II), controlled Chronic kidney disease stage: stage 3 (moderate) Diabetes mellitus complication detail: with chronic kidney disease Diabetes mellitus complication status: with kidney complications Diabetes mellitus prison insulin use: without moth exterminator use Qualified Code(s): E11.22 - Type 2 diabetes mellitus with diabetic chronic kidney disease; N18.3 - Chronic kidney disease, stage 3 (moderate) (8) COPD (chronic obstructive pulmonary disease) COPD type: chronic bronchitis Chronic bronchitis type: unspecified Qualified Code(s): J42 - Unspecified chronic bronchitis (9) HTN (hypertension) Hypertension type: essential hypertension Qualified Code(s): I10 - Essential (primary) hypertension
[2018-10-16] MEDS: METOPROLOL SUCC 25MG EXT REL TAB PO SCH (11:44)
[2018-10-16] MEDS: FINASTERIDE 5 MG TAB PO SCH (11:44)
[2018-10-16] MEDS: ASPIRIN 81 MG ECTAB PO SCH (11:45)
--- NOTE | 2018-10-16 11:46 | Cardiology Consultation ---
Date of Consultation October 16, 2018 Assessment & Plan (1) Ischemic cardiomyopathy: His last echocardiogram obtained as an outpatient revealed persistently low LV systolic function. This is presumably ischemic. Based on his recent catheterization did not appear to be any targets for revascularization. He has been tried on more aggressive medical regimen in the past but had hypotension associated with Charles inhibitors. He has been maintained on every other day spironolactone and a low-dose beta-veronica. While his degree of LV dysfunction puts him in a category of patients who may benefit from an ICD as primary prevention of sudden cardiac , it is unclear whether he has longevity would allow him to derive any benefit. I think this is an issue that can be readdressed in the outpatient setting. Present on Admission?: Yes (2) ST elevation (STEMI) myocardial infarction: Patient did have an abnormal EKG at time of presentation but his catheterization was not consistent with an acute coronary syndrome. In the past he was maintained on dual anti-platelet therapy but had significant difficulty with epistaxis. He continues to have hemoptysis. He did report some darker stools recently. I do not think this is an appropriate time to reinitiate dual anti-platelet therapy. He will continue on his beta-veronica and low-dose aspirin. His past history includes percutaneous intervention to the right coronary artery x2 in February 2006 PCI to the circumflex and obtuse marginal in 12/2007 PCI to the 1st diagonal in the setting of an anterolateral MN in 11/2007 Present on Admission?: Yes (3) Dyspnea: Multifactorial. He certainly has an element of severe lung disease. However, he is also noted to have elevated left ventricular end-diastolic pressure at the time of his left heart catheterization. He had markedly elevated N terminal proBNP as well. He states that his weight is been stable. He does not have peripheral edema. However, I think would be reasonable to attempt some diuresis especially given the objective data and his persistent tachycardia. 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 Patient was admitted to [facility] in May of this year with acute respiratory failure and non ST elevation myocardial infarction. He was discharged to rehabilitation and has struggled since that time with weakness and chronic pulmonary infection. Two nights ago the patient apparently woke up acutely short of breath. He states that he has had a chronic cough recently has been treated for multiple infections but his breathing appears to be fairly stable until the inspector poising hours. He did not report associated chest discomfort or chest pain. He presented to [facility] where his discovered to be hypoxic , acidotic and to have an EKG consistent with an acute myocardial injury. He was taken emergently to the cardiac catheterization suite where he was found to have an occluded diagonal branch. Attempt was made to open this artery but it was felt to be chronically occluded. There is not appear to be any other culprit vessels. The patient did undergo intubation at the time of admission. He was extubated successfully yesterday. This morning he claims to be feeling tired. He states that his breathing is improved and he is very comfortable in that regard. He denies any chest pain currently. He has some pain at the site of his urethral catheter, but no other specific complaints. Allergies Allergy/AdvReac Type Severity Reaction Status Date / Time No Known Allergies Allergy Verified 10/14/18 04:23 Home Medications Home Medications Medication Instructions Recorded Confirmed Type ferrous sulfate 325 mg PO Q12 09/17/18 10/14/18 History finasteride 5 mg PO QAM 09/17/18 10/14/18 History glipizide 5 mg PO QAM 09/17/18 10/14/18 History magnesium oxide 400 mg PO QAM 09/17/18 10/14/18 History metformin 1,000 mg PO BID 09/17/18 10/14/18 History metoprolol succinate 25 mg PO QAM 09/17/18 10/14/18 History multivitamin with minerals 1 tab PO DAILY 09/17/18 10/14/18 History [Multiple Vitamin-Minerals] pantoprazole 40 mg PO DAILY 09/17/18 10/14/18 History spironolactone 25 mg PO Q OTHER DAY 09/17/18 10/14/18 History voriconazole 200 mg PO BID 30 Days #60 tab 09/19/18 10/14/18 Rx aspirin 81 mg PO QAM 10/14/18 10/14/18 History Patient History Medical History MN (myocardial infarction) (Resolved) Small cell lung cancer (Acute 01/27/16) "DIAGNOSIS: Lung, CHATA, small cell lung carcinoma, [id number], stage IIIA TREATMENT: 1. Status post completion of combined radiation and chemotherapy. Radiation completed 05/02/2016 received 7000 cGy 2. 2 addition cycles of cisplatin/etoposide - Dr. Jeffery Ash" On 05/09/16 13:18 Beatris Curiel wrote "DIAGNOSIS: Lung, CHATA, small cell lung carcinoma, [id number], stage IIIA, limited stage Status post completion of combined radiation and chemotherapy. Radiation completed 05/02/2016 received 7000 cGy" On 05/09/16 12:53 Beatris Curiel wrote "DIAGNOSIS: Lung, CHATA, small cell lung carcinoma, [id number], stage IIIA, limited stage Status post completion of combined radiation and chemotherapy. Radiation completed 05/01/2016 received 7000 cGy" On 02/23/16 13:12 Jacinta Poole wrote "DIAGNOSIS: Lung, CHATA, small cell lung carcinoma, [id number], stage IIIA, limited stage" CAD (coronary artery disease) PVD (peripheral vascular disease) Hx of myocardial infarction HTN (hypertension) BPH (benign prostatic hyperplasia) HLD (hyperlipidemia) Anemia CKD stage 3 due to type 2 diabetes mellitus COPD (chronic obstructive pulmonary disease) DM II (diabetes mellitus, type II), controlled Consolidation lung Left upper lobe pneumonia Pneumonia Surgical History History of heart artery stent (Chronic) Family History Other Diabetes Heart disease Social History marital status: Current Living Situation: Spouse current occupational status: retired Feels Safe at Home: Yes Smoking Status: Never smoker Hx Alcohol Use: No Hx Substance Use: No Beliefs That Will Affect Care: None Communication Ability: Effective Review of Systems Complete. Pertinent positives known history of present illness. His appetite has waxed and waned over the past few months. He has been persistently weak but able to ambulate at home without assistive devices. He denies any recent epistaxis but does have hemoptysis. Does report some change in his stool consistency in some darker stools recently. No hematochezia. No subjective fevers or chills. Physical Exam 2 Vital Signs (Past 24 Hours): Last Vital Signs Temp 36.8 C 10/16/18 11:30 Pulse 120 H 10/16/18 11:30 Resp 22 10/16/18 11:30 BP 108/79 10/16/18 11:30 Pulse Ox 97 10/16/18 11:30 Physical Exam: The patient is somnolent but oriented. He was easily arousable and answer questions appropriately. HEENT: Pupils are equal and reactive to light and accommodation. Extraocular movements are intact. The sclerae are anicteric. Neuro: Cranial nerves intact Neck: Patient's neck is supple. He has palpable carotid pulses bilaterally without bruits on auscultation. He has mild jugular venous distention. The thyroid is not enlarged. Lungs: Coarse upper airway sounds. No expiratory wheezing. Cardiac: Heart demonstrates a rapid rate but normal rhythm. Normal S1 and S2. No murmurs on examination. Pulses: The patient has palpable radial pulses bilaterally that are equal in intensity Extremities: There was no evidence of hypoperfusion. There is no cyanosis or clubbing. There is no edema. Skin: I did not appreciate any rashes on examination today. Results & Data Laboratory Results Abnormal Lab Results 10/15/18 10/15/18 10/15/18 11:18 12:37 13:04 WBC RBC Hgb Hct MCV MCH MCHC RDW Std Deviation RDW Coeff of Molly Plt Count MPV Sample Site R Radial POC pH 7.37 POC pCO2 37 POC pO2 104 H POC HCO3 22 POC Total CO2 23 L POC Base Excess -4.0 POC ABG O2 Sat 98.0 H Lester Test Pass O2 Delivery Device Ventilator POC FiO2 30 PEEP 5 Sodium Potassium Chloride Carbon Dioxide Anion Gap BUN Creatinine Est Cr Clr Drug Dosing Est GFR ( Amer) Est GFR (Non-Af Amer) BUN/Creatinine Ratio Glucose POC Glucose 203 H 209 H Calcium Vancomycin Trough 10/15/18 10/15/18 10/15/18 13:32 13:46 14:39 WBC 20.93 H RBC 3.22 L Hgb 8.7 L Hct 27.1 L MCV 84.2 MCH 27.0 MCHC 32.1 RDW Std Deviation 57.8 H RDW Coeff of Molly 18.7 H Plt Count 331 MPV 10.1 Sample Site POC pH POC pCO2 POC pO2 POC HCO3 POC Total CO2 POC Base Excess POC ABG O2 Sat Lester Test O2 Delivery Device POC FiO2 PEEP Sodium Potassium Chloride Carbon Dioxide Anion Gap BUN Creatinine Est Cr Clr Drug Dosing Est GFR ( Amer) Est GFR (Non-Af Amer) BUN/Creatinine Ratio Glucose POC Glucose 205 H 215 H Calcium Vancomycin Trough 10/15/18 10/15/18 10/15/18 16:15 20:44 23:49 WBC RBC Hgb Hct MCV MCH MCHC RDW Std Deviation RDW Coeff of Molly Plt Count MPV Sample Site POC pH POC pCO2 POC pO2 POC HCO3 POC Total CO2 POC Base Excess POC ABG O2 Sat Lester Test O2 Delivery Device POC FiO2 PEEP Sodium Potassium Chloride Carbon Dioxide Anion Gap BUN Creatinine Est Cr Clr Drug Dosing Est GFR ( Amer) Est GFR (Non-Af Amer) BUN/Creatinine Ratio Glucose POC Glucose 211 H 195 H 191 H Calcium Vancomycin Trough 10/16/18 10/16/18 10/16/18 01:25 01:25 04:37 WBC RBC Hgb Hct MCV MCH MCHC RDW Std Deviation RDW Coeff of Molly Plt Count MPV Sample Site POC pH POC pCO2 POC pO2 POC HCO3 POC Total CO2 POC Base Excess POC ABG O2 Sat Lester Test O2 Delivery Device POC FiO2 PEEP Sodium 143 Potassium 4.6 Chloride 109 H Carbon Dioxide 24 Anion Gap 10.0 BUN 69 H Creatinine 1.53 H Est Cr Clr Drug Dosing 32.4 Est GFR ( Amer) 51.2 Est GFR (Non-Af Amer) 44.1 BUN/Creatinine Ratio 45.0 H Glucose 175 H POC Glucose 174 H Calcium 8.9 Vancomycin Trough 22.2 10/16/18 08:00 WBC RBC Hgb Hct MCV MCH MCHC RDW Std Deviation RDW Coeff of Molly Plt Count MPV Sample Site POC pH POC pCO2 POC pO2 POC HCO3 POC Total CO2 POC Base Excess POC ABG O2 Sat Lester Test O2 Delivery Device POC FiO2 PEEP Sodium Potassium Chloride Carbon Dioxide Anion Gap BUN Creatinine Est Cr Clr Drug Dosing Est GFR ( Amer) Est GFR (Non-Af Amer) BUN/Creatinine Ratio Glucose POC Glucose 197 H Calcium Vancomycin Trough Diagnostic Findings CT PE protocol demonstrated evidence of pulmonary vascular congestion verses pneumonia. There is no pulmonary embolus. There is no significant pericardial effusion. He had chronic changes of the known cavitary left upper lobe lesion and severe bolus emphysema ECG Additional Comments: Sinus tachycardia. Initial EKG demonstrated ST changes consistent with acute injury _ (1) ST elevation (STEMI) myocardial infarction Involved coronary artery: unspecified coronary artery Qualified Code(s): I21.3 - ST elevation (STEMI) myocardial infarction of unspecified site (2) Dyspnea Dyspnea type: unspecified Qualified Code(s): R06.00 - Dyspnea, unspecified
[2018-10-16] MEDS ORDERED: FUROSEMIDE 20 MG in SYRINGE 0 ML IV ONE (13:00)
--- NOTE | 2018-10-16 14:39 | Critical Care Progress Note ---
Date of Service October 16, 2018 Assessment & Plan (1) Respiratory failure with hypoxia and hypercapnia: Impression: 1. Acute on chronic hypercapnic respiratory failure. Requiring intubation. 2. Multilobar pneumonia, thought to be related to aspiration. 3. Non-small cell lung CA, with left upper lobe cavity, in remission, did not require radiation or chemotherapy recently. 4. 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 5. Advanced COPD, gold level 3, home O2 dependent. 6. Diabetes mellitus. 7. Chronic kidney disease. 8. Peripheral arterial disease. Plan: 1. Continue with nasal cannula. 2. Speech pathology consult for swallowing. The patient is too weak to be attempted at the bedside. 3. The patient remains extubated and saturating well. 4. Continue BiPAP as needed at nighttime. 5. Continue voriconazole as it was carried on prior to his admission to the hospital. 6. Antibiotic adjustment was done by pharmacy, appreciated. 7. DC sedatives. 8. Discontinue vancomycin, no evidence of MRSA. 9. Transfer the patient to a stepdown level. 10. Continue DVT prophylaxis. 11. Update the family. 12. Glucose control per pharmacy. 13. Continue bronchodilators. 14. Change steroids to twice daily. 15. Patient continued to be full code. Discussed with the staff on rounds and details, critical care time spent with the patient was 45 minutes. Subjective The patient remained extubated, he had fatigue but following commands answering questions, he feels hungry, he does not have any chest pain or shortness of breath, he has poor cough but no sputum production, continue to be tachycardic, no fever reported and no events overnight. The rest of his review of system was unremarkable. Physical Exam 2 Vital Signs (Past 24 Hours): Last Vital Signs Temp 36.8 C 10/16/18 11:30 Pulse 120 H 10/16/18 11:30 Resp 22 10/16/18 11:30 BP 108/79 10/16/18 11:30 Pulse Ox 97 10/16/18 11:30 Physical Exam: Vital signs are stable, no fever, heart rate is still in the range of 11/05/2019. Blood pressure has been maintained 108/79. O2 saturation is 97% on 2 L via nasal cannula. Rhonchi bilaterally. Abdomen is benign, no edema. He was noted. No skin rash. Neurologically he is nonfocal. Results & Data Laboratory Results The patient micro profile from the bronchoscopy did not reveal any pathogen. In the past patient has Aspergillus fumigatus. His labs has been maintained. And his WBC is stable. Diagnostic Findings No new imaging.
[2018-10-16] MEDS: LEVALBUTEROL HCL 0.63 MG/3 ML NEB NEB SCH (19:00)
[2018-10-16] MEDS ORDERED: VANCOMYCIN HCL 1,000 MG in SODIUM CHLORIDE 0.9% 250 ML IV SCH (20:00)
[2018-10-16] MEDS: FERROUS SULFATE 325 MG TAB PO SCH (21:41)
[2018-10-16] MEDS: VORICONAZOLE 200 MG TABLET PO SCH (21:42)
[2018-10-16] MEDS: INSULIN GLARGINE SOLOSTAR 100 UNITS/ML 3 ML PEN SC SCH (21:54)
[2018-10-17] MEDS: LEVALBUTEROL HCL 0.63 MG/3 ML NEB NEB SCH ×4 (01:38→19:21)
[2018-10-17 06:11] LABS: Basophils # (auto) 0.01 K/uL (0-0.2); Basophils % (auto) 0.1 %; Hemoglobin 8.3 g/dL (14.0-18.0); Immature Granulocytes # (auto) 0.15 K/uL (0.00-0.02); Immature Granulocytes % (auto) 0.9 %; Lymphocytes % (auto) 2.3 %; Mean Corpuscular Hgb Conc 31.9 g/dL (32-36); Mean Corpuscular Volume 83.9 fL (80-100); Mean Platelet Volume 10.1 fL (7.4-10.4); Monocytes # (auto) 0.85 K/uL (0.11-0.59); Monocytes % (auto) 4.9 %; Neutrophils # (auto) 15.95 K/uL (1.4-6.5); Neutrophils % (auto) 91.8 %; Platelet Count 305 K/uL (130-400); RDW Coefficient of Variation 19.4 % (11.5-14.5); RDW Standard Deviation 58.5 fL (36.4-46.3); White Blood Count 17.36 K/uL (4.8-10.8)
[2018-10-17 06:28] LABS: Hypochromasia Present
[2018-10-17 06:46] LABS: BUN Creatinine Ratio 50.8 (10-20); Calcium 8.7 mg/dl (8.5-10.1); Creatinine Clr Calc Pharmacy 33.6 ml/min; Est GFR (African American) 52.4; Est GFR (Non-African American) 45.2; Magnesium 2.4 mg/dl (1.8-2.4); Potassium 4.1 mmol/L (3.5-5.1)
[2018-10-17] MEDS: FERROUS SULFATE 325 MG TAB PO SCH ×2 (07:52→20:47)
[2018-10-17] MEDS: VORICONAZOLE 200 MG TABLET PO SCH ×2 (07:52→20:49)
[2018-10-17] MEDS: PANTOprazole 40 MG TAB PO SCH (07:53)
[2018-10-17] MEDS: ASPIRIN 81 MG ECTAB PO SCH (07:53)
[2018-10-17] MEDS: HEPARIN SOD 5,000 UNIT/0.5 ML VIAL SQ SCH ×2 (07:54→20:49)
[2018-10-17] MEDS: FINASTERIDE 5 MG TAB PO SCH (07:54)
[2018-10-17] MEDS: INSULIN ASPART 100 UNITS/ML 3 ML PEN SC SCH ×4 (07:55→20:51)
[2018-10-17] MEDS: INSULIN GLARGINE SOLOSTAR 100 UNITS/ML 3 ML PEN SC SCH (07:56)
[2018-10-17] MEDS: CEFEPIME 2,000 MG in SYRINGE 7.5 ML IV SCH ×2 (07:57→20:53)
[2018-10-17] MEDS ORDERED: MAGNESIUM OXIDE 400 MG TAB PO SCH (09:00)
--- NOTE | 2018-10-17 09:32 | Pharmacy Report ---
PHA: Glycemic Control AP - Date of Service October 17, 2018 - Assessment & Plan Outpatient Anti-diabetic Regimen: * Glipizide 5 mg po daily * Metformin 1000 mg po BID * A1c = 6.7% on 10/15/18 Risk Factors for Insulin Resistance: * Steroids: methylprednisolone tapered 40 mg IV q8 to q12 hours yesterday and tapered again to 20 mg IV q12h today (1st lower dose scheduled tonight) * Infection: HAP * Diet: T2DM, minced ASSESSMENT: * Mr. Aden is a 72 y/o M known to our service with well controlled T2DM on oral agents alone admitted 10/14 with respiratory failure 2nd HAP * Previous admissions suggest that patient's BSGs are labile with steroid involvement * Steroid dose was tapered yesterday - thus far does not seem to have significantly impacted regimen. Steroids tapering again today, 1st affected dose tonight. Anticipate a significant impact if steroids are discontinued or switched to prednisone once-daily * AM fasting BSG 174 mg/dL - did not increase Lantus this AM 2nd history of severe AM hypoglycemia if steroids adjusted/tapered. Additional small dose of Lantus tonight only if BSG above goal * Will tighten Novolog parameters 2nd persistent post-prandial elevations in BSG yesterday - of note, this is slightly tighter than weight-based severe stress estimate. Anticipate effects of steroid taper to manifest starting overnight. Will therefore loosen Novolog parameters starting tomorrow AM. * IV insulin 0.1 units/kg today at lunch 2nd BSG >300 mg/dL * Of note, I did adjust timing of methylprednisolone doses by 1 hr to be simultaneously administered with Lantus in order to intervene/hold Lantus dose in the event that methylprednisolone is held or discontinued PLAN * Insulin regular 5 units IV x1 now * Lantus 10 units x1 given this AM. Additional 5 units tonight if BSG > 160 mg/ dL * Novolog ACHS * Goal range: 120-160 mg/dL * Correction factor: 20 mg/dL/unit (loosening to 25 mg/dL/unit starting tomorrow AM) * Carb ratio: 8 g CHO/unit (loosening to 9 g CHO/unit starting tomorrow AM) Pharmacy will continue to monitor patient daily and write orders per [facility] inpatient glycemic control protocol. Thanks. * Please note that the plan above was derived based on current level of insulin resistance and hospital stress. These recommendations are appropriate for inpatient admission only. Plan of care upon discharge will need to be reassessed to avoid potential outpatient hypo/hyperglycemia.
[2018-10-17] MEDS: methylPREDNISolone 40 MG in SYRINGE 0 ML IV SCH (10:13)
--- NOTE | 2018-10-17 10:49 | Hospitalist Progress Note ---
Date of Service October 17, 2018 Assessment & Plan (1) Acute on chronic systolic (congestive) heart failure: He appears relatively compensated today. Will defer on additional diuretics today but will likely need low-dose lasix for after d/c in light of his EF of 15-20%. Cont BB if BP will allow. Not a good candidate for ELLI or ARB due to low BPs. Present on Admission?: Yes (2) Multifocal pneumonia: Cont cefepime for gram negative coverage in light of frequent healthcare exposure. Will add doxy for atypical coverage. Day #4 of abx. (3) Acute respiratory failure with hypoxia and hypercapnia: s/p intubation on hospital day #1 requiring ICU stay. now weaned to low-dose NC or room air. continue to treat all pulmonary/cardiac issues. (4) ST elevation (STEMI) myocardial infarction: at admission was suspected to be having acute anterior wall STEMI. taken emergently to [facility] operator - STEMI ruled out. exact etiology of positive troponin uncertain but may have been due to demand ischemia in setting of acute resp failure. cont asa, beta veronica for CAD. 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 fungal ball, left lung. repeat bronch THIS admission with repeat fungal cultures, AFB, cytologies, etc. (6) Cavitary lesion of lung: left upper lobe. this is in the location of his original lung cancer from the past. the degree of cavitation in the CHATA has increased over the last year. there has been suspicion of fungal infection in his cavity. cannot rule out recurrent cancer - cytologies from the recent bronch are pending. certainly with his weight loss need to be concerned about recurrent small cell lung ca. await cytologies/path. Present on Admission?: Yes (7) Small cell lung cancer: initial diagnosis in 2016, s/p resection around that time. now with concerns of recurrent cancer. awaiting bronch pathology. (8) CAD (coronary artery disease): see discussion above in "STEMI." (9) PVD (peripheral vascular disease): patient denies claudication symptoms of legs but he clearly has PAD given his poor pulses on exam. ideally should be on statin but in light of voriconazole use will defer for now. cont asa. (10) HTN (hypertension): controlled (11) BPH (benign prostatic hyperplasia): cont finasteride poor candidate for alpha veronica due to low BPs he has urinary frequency; PVRs are 0. bladder detrusor instability? trial of ditropan. check u/a and urine cx to r/o UTI. (12) HLD (hyperlipidemia): (13) Anemia: suspect multifactorial including concern about lung ca recurrence, fungal infection, other issues. ferritin level is elevated c/w ACD. follow cbc's. b12 level was technically normal but in the 300s. will supplement to be complete. (14) CKD stage 3 due to type 2 diabetes mellitus: Cr 1.1 to 1.3 at baseline (15) COPD (chronic obstructive pulmonary disease): with exacerbation. this seems better. decrease solumedrol to 20mg q12h. cont nebs. cont supportive care. (16) Severe protein-calorie malnutrition: 8kg weight loss over the last 6 months. add boost. add MVI. consider appetite stimulant but steroids will be good for such. (17) DM II (diabetes mellitus, type II), controlled: control adequate at this time. (18) DVT prophylaxis: heparin 5000 BID (19) Physical deconditioning: significant. likely will need rehab. PT, OT evals requested. extensively updated at bedside. Subjective patient reports dyspnea on exertion but no dyspnea at rest. denies orthopnea today. and him both ask "why has he been so short of breath?" they allude to his lung cancer and blame much of his health on the cancer. tele with sinus tach. he also complains of urinary frequency - daytime and night-time. chronic issue. has had weight loss over the last few months along with anorexia. weight was 62kg well over 3-4 months ago. Constitutional: + fatigue, + anorexia and + weight loss; no fever and no chills Respiratory: + cough and + dyspnea on exertion; no hemoptysis Cardiovascular: no chest pain, no chest pain at rest and no dyspnea at rest Gastrointestinal: no abdominal pain, no nausea and no vomiting Genitourinary (Male): no dysuria Physical Exam 2 Vital Signs (Past 24 Hours): Last Vital Signs Temp 36.6 C 10/17/18 08:08 Pulse 103 H 10/17/18 08:08 Resp 20 10/17/18 08:08 BP 90/55 L 10/17/18 08:08 Pulse Ox 91 10/17/18 08:08 Constitutional: + thin and + cachectic; no acute distress ENMT: external ear and nose normal, oropharynx normal Respiratory: normal respiratory effort; no respiratory distress and does not use accessory muscles Auscultation: + diminished lung sounds (bases) and + rales (bases); no rhonchi and no wheezes Cardiovascular: Rate/Rhythm: + tachycardic Heart Sounds: normal S1 and normal S2 Vessels: no JVD Extremities: no edema DP and pos tib pulses both feet <1+ Gastrointestinal (Abdomen): normal bowel sounds, soft, nontender, no hepatosplenomegaly Skin: pallor Psychiatric: Orientation: alert and oriented x 3 Mood: + depressed mood Results & Data Laboratory Results Laboratory Results - last 24 hr 10/16/18 10/16/18 10/16/18 11:48 16:04 20:21 WBC RBC Hgb Hct MCV MCH MCHC RDW Std Deviation RDW Coeff of Molly Plt Count MPV Immature Gran % (Auto) Neut % (Auto) Lymph % (Auto) [place] % (Auto) Eos % (Auto) Baso % (Auto) Immature Gran # (Auto) Neut # (Auto) Lymph # (Auto) [place] # (Auto) Eos # (Auto) Baso # (Auto) Hypochromasia Sodium Potassium Chloride Carbon Dioxide Anion Gap BUN Creatinine Est Cr Clr Drug Dosing Est GFR ( Amer) Est GFR (Non-Af Amer) BUN/Creatinine Ratio Glucose POC Glucose 202 H 249 H 231 H Calcium Magnesium 10/17/18 10/17/18 10/17/18 05:45 05:45 07:26 WBC 17.36 H RBC 3.10 L Hgb 8.3 L Hct 26.0 L MCV 83.9 MCH 26.8 MCHC 31.9 L RDW Std Deviation 58.5 H RDW Coeff of Molly 19.4 H Plt Count 305 MPV 10.1 Immature Gran % (Auto) 0.9 Neut % (Auto) 91.8 Lymph % (Auto) 2.3 [place] % (Auto) 4.9 Eos % (Auto) 0.0 Baso % (Auto) 0.1 Immature Gran # (Auto) 0.15 H Neut # (Auto) 15.95 H Lymph # (Auto) 0.40 L [place] # (Auto) 0.85 H Eos # (Auto) 0.00 Baso # (Auto) 0.01 Hypochromasia Present Sodium 142 Potassium 4.1 Chloride 110 H Carbon Dioxide 24 Anion Gap 8.0 BUN 76 H Creatinine 1.50 H Est Cr Clr Drug Dosing 33.6 Est GFR ( Amer) 52.4 Est GFR (Non-Af Amer) 45.2 BUN/Creatinine Ratio 50.8 H Glucose 122 H POC Glucose 174 H Calcium 8.7 Magnesium 2.4 _ (1) ST elevation (STEMI) myocardial infarction Involved coronary artery: unspecified coronary artery Qualified Code(s): I21.3 - ST elevation (STEMI) myocardial infarction of unspecified site (2) CAD (coronary artery disease) Coronary Disease-Associated Artery/Lesion type: [place] artery [place] vs. transplanted heart: [place] heart Associated angina: without angina Qualified Code(s): I25.10 - Atherosclerotic heart disease of [place] coronary artery without angina pectoris (3) HTN (hypertension) Hypertension type: essential hypertension Qualified Code(s): I10 - Essential (primary) hypertension (4) BPH (benign prostatic hyperplasia) Lower urinary tract symptom presence: symptoms absent Lower urinary tract symptom detail: Qualified Code(s): N40.0 - Benign prostatic hyperplasia without lower urinary tract symptoms (5) HLD (hyperlipidemia) Hyperlipidemia type: unspecified Qualified Code(s): E78.5 - Hyperlipidemia, unspecified (6) Anemia Anemia type: other cause Other causes of anemia: other cause, not classified Qualified Code(s): D64.89 - Other specified anemias (7) COPD (chronic obstructive pulmonary disease) COPD type: chronic bronchitis Chronic bronchitis type: unspecified Emphysema type: Qualified Code(s): J42 - Unspecified chronic bronchitis (8) DM II (diabetes mellitus, type II), controlled Diabetes mellitus longterm insulin use: without longterm use Diabetes mellitus complication status: with kidney complications Diabetes mellitus complication detail: with chronic kidney disease Diabetic retinopathy severity : Proliferative retinopathy type: Diabetes mellitus macular edema: Laterality: Chronic kidney disease stage: stage 3 (moderate) Qualified Code(s ): E11.22 - Type 2 diabetes mellitus with diabetic chronic kidney disease; N18.3 - Chronic kidney disease, stage 3 (moderate)
[2018-10-17] MEDS ORDERED: DOXYCYCLINE HYCLATE 100 MG CAP PO STA (10:52)
[2018-10-17] MEDS ORDERED: CEROVITE ADV FORMULA TAB PO SCH (11:00)
[2018-10-17] MEDS ORDERED: INSULIN HUMAN REGULAR PER UNIT 5 UNITS in SYRINGE 4.95 ML IV STA (11:10)
[2018-10-17] MEDS: METOPROLOL SUCC 25MG EXT REL TAB PO SCH (11:57)
[2018-10-17] MEDS: CYANOCOBALAMIN 500 MCG TABLET (VITAMIN B-12) PO SCH (11:57)
[2018-10-17] MEDS ORDERED: OXYBUTYNIN CHLORIDE 5 MG TAB PO STA (14:07)
--- NOTE | 2018-10-17 19:42 | Pulmonology Progress Note ---
Date of Service October 17, 2018 Assessment & Plan (1) Respiratory failure with hypoxia and hypercapnia: Impression: 1. Acute on chronic hypercapnic respiratory failure. Requiring intubation. 2. Multilobar pneumonia, thought to be related to aspiration. 3. Non-small cell lung CA, with left upper lobe cavity, in remission, did not require radiation or chemotherapy recently. 4. 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 5. Advanced COPD, gold level 3, home O2 dependent. 6. Diabetes mellitus. 7. Chronic kidney disease. 8. Peripheral arterial disease. Plan: 1. Continue with nasal cannula. 2. Continue current antibiotics, cefepime for 7 days should be adequate. 3. Bronchodilators. 4. Continue BiPAP as needed at nighttime. 5. Continue voriconazole as it was carried on prior to his admission to the hospital. 6. Concerns for gross hemoptysis in these patients who had cavitary lesion, however, he did not have significant hemoptysis on the bronchoscopy done on him 2 days ago. 7. Agree with reducing steroids, patient is taking orals, he can be changed to oral prednisone 40 mg and taper accordingly. 8. Disposition plan per the possible team. Thank you for your kind referral, will follow as needed. Chronicity: acute on chronic Qualified Code(s): J96.21 - Acute and chronic respiratory failure with hypoxia; J96.22 - Acute and chronic respiratory failure with hypercapnia Subjective The patient is feeling much better, denies any pain, shortness of breath has subsided almost to none according to him, no sputum production, cough has been sporadic. No nausea or vomiting and no dysphagia tolerating oral intake. The rest of his review of system was unremarkable. Physical Exam 2 Vital Signs (Past 24 Hours): Last Vital Signs Temp 36.6 C 10/17/18 19:11 Pulse 82 10/17/18 19:22 Resp 18 10/17/18 19:22 BP 103/69 10/17/18 19:11 Pulse Ox 95 10/17/18 19:22 Physical Exam: Vital signs are stable, no fever, S1-S2 regular rate and rhythm , he is 95% on room air, scattered crackles bilaterally, damage breath sounds at the right apex. Abdomen is benign, no edema, cachexia. Neurologically is nonfocal. Results & Data Laboratory Results Bronchial specimen did not show any pathogen, fungal cultures are pending. Diagnostic Findings No new imaging, previous chest x-ray showed increased infiltrate in the right lower lobe, this is likely from the BAL being injected through the bronchoscopy.
[2018-10-17] MEDS: DOXYCYCLINE HYCLATE 100 MG CAP PO SCH (20:48)
[2018-10-17] MEDS: OXYBUTYNIN CHLORIDE 5 MG TAB PO SCH (20:48)
[2018-10-17] MEDS ORDERED: methylPREDNISolone 40 MG in SYRINGE 0 ML IV SCH (21:00)
[2018-10-17] MEDS ORDERED: INSULIN GLARGINE SOLOSTAR 100 UNITS/ML 3 ML PEN SC SCH (21:00)
[2018-10-17] MEDS: methylPREDNISolone 20 MG in SYRINGE 0 ML IV SCH (21:29)
[2018-10-17 21:34] LABS: Appearance Urine Cloudy (Clear); Bacteria Urine Automated Negative (Negative); Bilirubin Urine Negative (Negative); Color Urine Yellow; Glucose Urine UA Negative (Negative); Ketones Urine Trace (Negative); Leukocyte Esterase Urine Trace (Negative); Nitrite Urine Negative (Negative); Protein Urine 1+ (Negative); Specific Gravity Urine 1.025 (1.000-1.030); Urobilinogen Urine Negative (Negative)
[2018-10-17] MEDS ORDERED: LEVALBUTEROL HCL 0.63 MG/3 ML NEB NEB PRN (22:52)
[2018-10-18] MEDS: LEVALBUTEROL HCL 0.63 MG/3 ML NEB NEB SCH ×4 (02:00→19:10)
[2018-10-18 05:48] LABS: Hematocrit (blood only) 26.9 % (42-52); Hemoglobin 8.5 g/dL (14.0-18.0); Mean Corpuscular Hgb Conc 31.6 g/dL (32-36); Mean Corpuscular Volume 84.6 fL (80-100); Mean Platelet Volume 10.7 fL (7.4-10.4); Nucleated RBC # (auto) 0.44 K/uL (0-0); Nucleated RBC % (auto) 2.5 %; Platelet Count 225 K/uL (130-400); RDW Coefficient of Variation 19.8 % (11.5-14.5); RDW Standard Deviation 60.5 fL (36.4-46.3); Red Blood Count 3.18 M/uL (4.7-6.1); White Blood Count 17.32 K/uL (4.8-10.8)
[2018-10-18 06:17] LABS: Creatinine Clr Calc Pharmacy 27.6 ml/min; Est GFR (Non-African American) 36.3
[2018-10-18] MEDS: FERROUS SULFATE 325 MG TAB PO SCH ×2 (08:08→20:26)
[2018-10-18] MEDS: CEROVITE ADV FORMULA TAB PO SCH (08:08)
[2018-10-18] MEDS: MAGNESIUM OXIDE 400 MG TAB PO SCH (08:09)
[2018-10-18] MEDS: OXYBUTYNIN CHLORIDE 5 MG TAB PO SCH ×2 (08:11→20:27)
[2018-10-18] MEDS: ASPIRIN 81 MG ECTAB PO SCH (08:12)
[2018-10-18] MEDS: PANTOprazole 40 MG TAB PO SCH (08:17)
[2018-10-18] MEDS: FINASTERIDE 5 MG TAB PO SCH (08:17)
[2018-10-18] MEDS: VORICONAZOLE 200 MG TABLET PO SCH ×2 (08:18→22:00)
[2018-10-18] MEDS: DOXYCYCLINE HYCLATE 100 MG CAP PO SCH (08:19)
[2018-10-18] MEDS: CYANOCOBALAMIN 500 MCG TABLET (VITAMIN B-12) PO SCH (08:20)
[2018-10-18] MEDS: INSULIN GLARGINE SOLOSTAR 100 UNITS/ML 3 ML PEN SC SCH ×2 (09:00→20:31)
[2018-10-18] MEDS: methylPREDNISolone 20 MG in SYRINGE 0 ML IV SCH (09:27)
[2018-10-18] MEDS: CEFEPIME 2,000 MG in SYRINGE 7.5 ML IV SCH (09:28)
[2018-10-18] MEDS: HEPARIN SOD 5,000 UNIT/0.5 ML VIAL SQ SCH ×2 (09:29→20:30)
[2018-10-18] MEDS: INSULIN ASPART 100 UNITS/ML 3 ML PEN SC SCH ×4 (09:32→22:02)
[2018-10-18 10:10] LABS: BUN Creatinine Ratio 44.5 (10-20); Calcium 8.7 mg/dl (8.5-10.1); Est GFR (African American) 40.9; Est GFR (Non-African American) 35.3; Potassium 4.9 mmol/L (3.5-5.1)
[2018-10-18] MEDS ORDERED: SODIUM CHLORIDE 0.9% 1000ML 250 ML IV SCH (12:01)
--- NOTE | 2018-10-18 13:46 | Pharmacy Report ---
PHA: Glycemic Control AP - Date of Service October 18, 2018 - Assessment & Plan Outpatient Anti-diabetic Regimen: * Glipizide 5 mg po daily * Metformin 1000 mg po BID * A1c = 6.7% on 10/15/18 Risk Factors for Insulin Resistance: * Steroids: methylprednisolone tapered to 20 mg IV q12h yesterday PM * Infection: HAP * Diet: T2DM, minced ASSESSMENT: * Mr. Aden is a 72 y/o M known to our service with well controlled T2DM on oral agents alone admitted 10/14 with respiratory failure 2nd HAP * Previous admissions suggest that patient's BSGs are labile with steroid involvement * Steroid dose was tapered yesterday - adjustments to Lantus and Novolog made in anticipation of increased insulin sensitivity. Anticipate further significant impact if steroids are discontinued or switched to prednisone once- daily * AM fasting BSG 143 mg/dL - dose adjustment of Lantus yesterday was appropriate. No further change. * Novolog parameters loosened this AM in anticipation of increased insulin sensitivity 2nd steroid taper - loosing was likely too much, causing post- prandial elevation at lunch today. Will tighten slightly PLAN * Lantus qAM based on BSG * 6 units for BSG <= 120 mg/dL * 10 units for BSG > 120 mg/dL * Additional 5 units qPM if BSG > 160 mg/dL * Novolog ACHS * Goal range: 120-160 mg/dL * Correction factor: 20 mg/dL/unit * Carb ratio: 8 g CHO/unit Pharmacy will continue to monitor patient daily and write orders per [facility] inpatient glycemic control protocol. Thanks. * Please note that the plan above was derived based on current level of insulin resistance and hospital stress. These recommendations are appropriate for inpatient admission only. Plan of care upon discharge will need to be reassessed to avoid potential outpatient hypo/hyperglycemia.
--- NOTE | 2018-10-18 16:23 | XRay Report ---
XR chest 2V routine CLINICAL HISTORY: COPD, CHATA cavitation, RLL pneumonia dyspnea COMPARISON STUDY: 10/16/2017 FINDINGS: Unchanging parenchymal infiltrate right base. Small right pleural effusion. Upper lungs [place] ar. Unchanging opacification left pulmonary apex. Left perihilar infiltrative change combined with a smal l left pleural effusion also unaltered. IMPRESSION: No change from the prior study. Stable bilateral parenchymal infiltrative change and sma ll bilateral pleural effusions. The above report was generated using voice recognition software. It may contain grammatical, syntax or spelling errors. Electronically signed by: Ezekiel Collier M.D. 10/18/2018 4:22 PM
[2018-10-18 17:08] LABS: Base Excess VBG -6.2 mEq/L; HCO3 VBG 19 mmol/L; PCO2 VBG 36 mmHg (38-50); PO2 VBG 29 mmHg; pH VBG 7.34 (7.36-7.41)
[2018-10-18 17:10] LABS: Troponin I 2.69 ng/ml (0-0.045)
[2018-10-18] MEDS ORDERED: PIPERACILL/TAZOBAC CONSULT ACTIVE PRN (17:26)
[2018-10-18] MEDS ORDERED: DAPTOmycin 500 MG VIAL IV SCH (17:30)
[2018-10-18 17:44] LABS: Oxygen Saturation VBG < 60.0 %
[2018-10-18] MEDS ORDERED: LEVOFLOXACIN/D5W 750 MG/150 ML BAG IV SCH (18:00)
[2018-10-18] MEDS ORDERED: PIPERACILLIN/TAZOBACTAM 3.375 GM in DEXTROSE 5% 100 ML IV SCH (18:30)
--- NOTE | 2018-10-18 19:32 | Hospitalist Progress Note ---
Date of Service October 18, 2018 Assessment & Plan (1) ATN (acute tubular necrosis): creatinine has risen to 1.8 today. u/a with granular and hyaline casts. suspect the ATN is cardiorenal in origin (has had episodes of hypotension). kidney injury from contrast from his cath or his CTA chest also possible but less likely. sepsis-induced ATN also possible. he is not on any agents/meds that would cause ATN. he is having no urinary retention to suggest obstruction. see below re: heart issues. repeat BMP late tonight and then again in am. Present on Admission?: No (2) Lactic acidosis: 2nd to hypotension and his severe cardiac dysfunction/LV dysfunction. Cannot rule out element of sepsis/severe sepsis but less likely. Repeat lactate TONIGHT. If lactate is not improving then start dopamine at 3mcg/kg/min. I spoke with cardiology, Dr. Chaudhry, and we discussed this gentleman's case in detail. Dr. Chaudhry in support of a pressor agent. He may not tolerate dobutamine thus will use dopamine if necessary. He has a central port in place fortunately. Very low threshold for placing this gentleman back in the ICU. (3) Hypotension: He had transient hypotension this am responding to very small (250cc) fluid bolus. Recent cortisol level was >50. Beta veronica was held due to the degree of hypotension. I am concerned that the hypotension is cardiac in origin due to severe LV dysfunction (EF was 15-20% earlier this year; could easily be much worse than this). Sepsis-induced hypotension is possible but felt to be unlikely. He may need a pressor agent before long (see below). Present on Admission?: No (4) Acute on chronic systolic (congestive) heart failure: He does not appear overtly volume overloaded on examination or radiographically however I am heavily concerned that his ATN, lactic acidosis, etc is due to his severe systolic CHF. See discussion above. Holding beta veronica due to hypotension. Dr. Chaudhry from cardiology to see in the AM. Present on Admission?: Yes (5) Multifocal pneumonia: Due to borderline hypothermia, elevated procalcitonin, hypotension, etc - - the following were done today: 1. broadened abx (changed cefepime and doxycycline to zosyn & levaquin). 2. added daptomycin to cover his port - use empirically for 48 hours only 3. repeat blood cx's were obtained 4. serial lactates 5. of note - urine cx from 10/17/18 was negative 6. repeated his cxr - unchanged overall today is day #5 of abx Present on Admission?: Yes (6) Acute respiratory failure with hypoxia and hypercapnia: s/p intubation on hospital day #1 requiring ICU stay. weaned to low-dose NC or room air. continue to treat all pulmonary/cardiac issues. see discussion above. (7) ST elevation (STEMI) myocardial infarction: at admission was suspected to be having acute anterior wall STEMI. taken emergently to lab head - STEMI ruled out. exact etiology of positive troponin uncertain but likely due to demand ischemia in setting of acute resp failure, acute/chronic CHF, etc. cont asa for CAD. resume BB when BP will allow. 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 fungal ball, left lung. repeat bronch THIS admission with repeat fungal cultures, AFB, cytologies, etc. thus far all cx's negative. path from the [facility] negative for malignant cells but this certainly does not rule out a cancer recurrence (9) Cavitary lesion of lung: left upper lobe. this is in the location of his original lung cancer from the past. the degree of cavitation in the CH[facility] has increased over the last year. there has been suspicion of fungal infection in his cavity. see discussion above in "aspergillus". cannot rule out recurrent cancer despite negative path. certainly with his weight loss need to be concerned about recurrent small cell lung ca. (10) Small cell lung cancer: initial diagnosis in 2016, s/p resection around that time, of CHATA. now with concerns of recurrent cancer. see discussion above. (11) CAD (coronary artery disease): see discussion above in "STEMI." troponin repeated today -- 2.6, slightly lower from previous. troponin likely remaining elevated due to acute tubular necrosis, ongoing cardiac issues, etc. (12) PVD (peripheral vascular disease): patient denies claudication symptoms of legs but he clearly has PAD given his poor pulses on exam. ideally should be on statin but in light of voriconazole use will defer for now. cont asa. (13) HTN (hypertension): now with hypotension holding any BP med (14) BPH (benign prostatic hyperplasia): cont finasteride poor candidate for alpha veronica due to low BPs he has urinary frequency; PVRs are 0. bladder detrusor instability? trial of ditropan. check u/a and urine cx to r/o UTI. (15) HLD (hyperlipidemia): is on voriconazole and statin therapy could interact; thus, statin held (16) Anemia: suspect multifactorial including concern about lung ca recurrence, fungal infection, other issues. ferritin level is elevated c/w ACD. follow cbc's. b12 level was technically normal but in the 300s. will supplement to be complete. (17) CKD stage 3 due to type 2 diabetes mellitus: Cr 1.1 to 1.3 at baseline now with GHANSHYAM/ARF, likely ATN (18) COPD (chronic obstructive pulmonary disease): with exacerbation. no wheezing on exam. stop solumedrol. change to prednisone 40mg daily starting tomorrow. cont nebs. cont supportive care. (19) Severe protein-calorie malnutrition: 8kg weight loss over the last 6 months. added boost and MVI. (20) DM II (diabetes mellitus, type II), controlled: control adequate. (21) DVT prophylaxis: heparin 5000 BID (22) Physical deconditioning: significant. unable to do much activity because of cardiopulmonary disease. has severe BEE. PT, OT - if able. extensively updated at bedside. total time today over multiple visits, speaking with several physicians, etc - 80 minutes Subjective Saw the patient several times today. During my first AM visit he c/o dyspnea on exertion with any activity. Also he slept poorly last pm but not due to orthopnea or PND. Tele stable overnight His BP was quite low this am requiring the HOLDING of his beta veronica. 250cc of NS was given over 2 hours for the low BP as well with improved SBP to about 100-105. I saw the patient again this afternoon and he continued to c/o BEE but no chest pain. He also continues with bladder spasm although PVRs have been 0cc. He had a borderline low temperature of about 36 degrees done rectally this afternoon. Later in the evening during a 3rd visit the patient was sitting upright at the bedside. His legs were mottled. A recent lactate level was elevated at 5. Trop is about 2.5. Procalcitonin was elevated. with numerous questions including, once again, asking why he continues with dyspnea. Constitutional: + fatigue; no fever, no chills and no increased appetite Respiratory: + dyspnea on exertion; no cough, no hemoptysis and no sputum production Cardiovascular: + dyspnea on exertion; no chest pain, no chest pain at rest, no chest pain with activity, no dyspnea at rest, no orthopnea, no paroxysmal nocturnal dyspnea and no palpitations Gastrointestinal: no abdominal pain, no nausea and no vomiting Genitourinary (Male): + urinary frequency; no dysuria and no post-void dribbling Physical Exam 2 Vital Signs (Past 24 Hours): Last Vital Signs Temp 36.7 C 10/18/18 19:12 Pulse 87 10/18/18 19:13 Resp 14 10/18/18 19:13 BP 101/74 10/18/18 19:12 Pulse Ox 96 10/18/18 19:13 Constitutional: + ill appearing, + thin and + cachectic; no acute distress ENMT: external ear and nose normal, oropharynx normal Respiratory: normal respiratory effort; no respiratory distress and does not use accessory muscles Auscultation: + diminished lung sounds (bases); no rhonchi and no wheezes Cardiovascular: Rate/Rhythm: + tachycardic Heart Sounds: normal S1, normal S2 and + murmur (1/6 LSB) Vessels: no JVD, + posterior tibial pulses abnormal (<1+) and + dorsalis pedis pulses abnormal (<1+ ) Extremities: + abnormal capillary refill (delayed, cool extremities, mottled actually ) and no edema Gastrointestinal (Abdomen): normal bowel sounds, soft, nontender, no hepatosplenomegaly Skin: + mottling Psychiatric: Orientation: alert and oriented x 3 Mood: + depressed mood Results & Data Laboratory Results Laboratory Results - last 24 hr 10/17/18 10/17/18 10/18/18 20:22 21:11 05:18 WBC 17.32 H RBC 3.18 L Hgb 8.5 L Hct 26.9 L MCV 84.6 MCH 26.7 MCHC 31.6 L RDW Std Deviation 60.5 H RDW Coeff of Molly 19.8 H Plt Count 225 MPV 10.7 H Absolute Nucleated RBC 0.44 H Nucleated RBC % (auto) 2.5 VBG pH VBG pCO2 VBG pO2 VBG HCO3 VBG O2 Saturation VBG Base Excess Barometric Pressure Sodium Potassium Chloride Carbon Dioxide Anion Gap BUN Creatinine Est Cr Clr Drug Dosing Est GFR ( Amer) Est GFR (Non-Af Amer) BUN/Creatinine Ratio Glucose POC Glucose 267 H Lactate Calcium Troponin I Procalcitonin TSH Urine Color Yellow Urine Appearance Cloudy H Urine pH 5.0 Ur Specific [place] 1.025 Urine Protein 1+ H Urine Glucose (UA) Negative Urine Ketones Trace H Urine Blood 2+ H Urine Nitrite Negative Urine Bilirubin Negative Urine Urobilinogen Negative Ur Leukocyte Esterase Trace H Urine WBC (Auto) 10-30 H Urine RBC (Auto) 10-30 H U Hyaline Cast (Auto) 5-10 H U Epithel Cells (Auto) 10-20 H Urine Bacteria (Auto) Negative Granular Casts 1-5 H 10/18/18 10/18/18 10/18/18 05:18 07:23 09:27 WBC RBC Hgb Hct MCV MCH MCHC RDW Std Deviation RDW Coeff of Molly Plt Count MPV Absolute Nucleated RBC Nucleated RBC % (auto) VBG pH VBG pCO2 VBG pO2 VBG HCO3 VBG O2 Saturation VBG Base Excess Barometric Pressure Sodium 138 Potassium 4.9 D Chloride 106 Carbon Dioxide 20 L Anion Gap 12.0 H BUN 82 H Creatinine 1.80 H D 1.84 H Est Cr Clr Drug Dosing 27.6 27.0 Est GFR ( Amer) 42.0 40.9 Est GFR (Non-Af Amer) 36.3 35.3 BUN/Creatinine Ratio 44.5 H Glucose 250 H POC Glucose 143 H Lactate Calcium 8.7 Troponin I Procalcitonin TSH Urine Color Urine Appearance Urine pH Ur Specific [place] Urine Protein Urine Glucose (UA) Urine Ketones Urine Blood Urine Nitrite Urine Bilirubin Urine Urobilinogen Ur Leukocyte Esterase Urine WBC (Auto) Urine RBC (Auto) U Hyaline Cast (Auto) U Epithel Cells (Auto) Urine Bacteria (Auto) Granular Casts 10/18/18 10/18/18 10/18/18 11:41 15:34 15:34 WBC RBC Hgb Hct MCV MCH MCHC RDW Std Deviation RDW Coeff of Molly Plt Count MPV Absolute Nucleated RBC Nucleated RBC % (auto) VBG pH VBG pCO2 VBG pO2 VBG HCO3 VBG O2 Saturation VBG Base Excess Barometric Pressure Sodium Potassium Chloride Carbon Dioxide Anion Gap BUN Creatinine Est Cr Clr Drug Dosing Est GFR ( Amer) Est GFR (Non-Af Amer) BUN/Creatinine Ratio Glucose POC Glucose 217 H Lactate 5.0 H* Calcium Troponin I 2.690 H* Procalcitonin TSH 1.430 Urine Color Urine Appearance Urine pH Ur Specific [place] Urine Protein Urine Glucose (UA) Urine Ketones Urine Blood Urine Nitrite Urine Bilirubin Urine Urobilinogen Ur Leukocyte Esterase Urine WBC (Auto) Urine RBC (Auto) U Hyaline Cast (Auto) U Epithel Cells (Auto) Urine Bacteria (Auto) Granular Casts 10/18/18 10/18/18 10/18/18 15:34 15:34 16:26 WBC RBC Hgb Hct MCV MCH MCHC RDW Std Deviation RDW Coeff of Molly Plt Count MPV Absolute Nucleated RBC Nucleated RBC % (auto) VBG pH Cancelled VBG pCO2 Cancelled VBG pO2 Cancelled VBG HCO3 Cancelled VBG O2 Saturation Cancelled VBG Base Excess Cancelled Barometric Pressure Cancelled Sodium Potassium Chloride Carbon Dioxide Anion Gap BUN Creatinine Est Cr Clr Drug Dosing Est GFR ( Amer) Est GFR (Non-Af Amer) BUN/Creatinine Ratio Glucose POC Glucose 240 H Lactate Calcium Troponin I Procalcitonin 0.77 H TSH Urine Color Urine Appearance Urine pH Ur Specific [place] Urine Protein Urine Glucose (UA) Urine Ketones Urine Blood Urine Nitrite Urine Bilirubin Urine Urobilinogen Ur Leukocyte Esterase Urine WBC (Auto) Urine RBC (Auto) U Hyaline Cast (Auto) U Epithel Cells (Auto) Urine Bacteria (Auto) Granular Casts 10/18/18 16:46 WBC RBC Hgb Hct MCV MCH MCHC RDW Std Deviation RDW Coeff of Molly Plt Count MPV Absolute Nucleated RBC Nucleated RBC % (auto) VBG pH 7.34 L VBG pCO2 36 L VBG pO2 29 VBG HCO3 19 VBG O2 Saturation < 60.0 VBG Base Excess -6.2 Barometric Pressure 731.7 Sodium Potassium Chloride Carbon Dioxide Anion Gap BUN Creatinine Est Cr Clr Drug Dosing Est GFR ( Amer) Est GFR (Non-Af Amer) BUN/Creatinine Ratio Glucose POC Glucose Lactate Calcium Troponin I Procalcitonin TSH Urine Color Urine Appearance Urine pH Ur Specific [place] Urine Protein Urine Glucose (UA) Urine Ketones Urine Blood Urine Nitrite Urine Bilirubin Urine Urobilinogen Ur Leukocyte Esterase Urine WBC (Auto) Urine RBC (Auto) U Hyaline Cast (Auto) U Epithel Cells (Auto) Urine Bacteria (Auto) Granular Casts Diagnostic Findings cxr - FINDINGS: Unchanging parenchymal infiltrate right base. Small right pleural effusion. Upper lungs clear. Unchanging opacification left pulmonary apex. Left perihilar infiltrative change combined with a small left pleural effusion also unaltered. IMPRESSION: No change from the prior study. Stable bilateral parenchymal infiltrative change and small bilateral pleural effusions. _ (1) ST elevation (STEMI) myocardial infarction Involved coronary artery: unspecified coronary artery Qualified Code(s): I21.3 - ST elevation (STEMI) myocardial infarction of unspecified site (2) CAD (coronary artery disease) Coronary Disease-Associated Artery/Lesion type: [place] artery [place] vs. transplanted heart: [place] heart Associated angina: without angina Qualified Code(s): I25.10 - Atherosclerotic heart disease of [place] coronary artery without angina pectoris (3) HTN (hypertension) Hypertension type: essential hypertension Qualified Code(s): I10 - Essential (primary) hypertension (4) BPH (benign prostatic hyperplasia) Lower urinary tract symptom presence: symptoms absent Lower urinary tract symptom detail: Qualified Code(s): N40.0 - Benign prostatic hyperplasia without lower urinary tract symptoms (5) HLD (hyperlipidemia) Hyperlipidemia type: unspecified Qualified Code(s): E78.5 - Hyperlipidemia, unspecified (6) Anemia Anemia type: other cause Iron deficiency anemia type: Vitamin B12 deficiency anemia type: Folate deficiency anemia type: Bone marrow failure anemia type: Hemolytic anemia type: Other causes of anemia: other cause, not classified Chronic kidney disease stage: Qualified Code(s): D64.89 - Other specified anemias (7) COPD (chronic obstructive pulmonary disease) COPD type: chronic bronchitis Chronic bronchitis type: unspecified Emphysema type: Qualified Code(s): J42 - Unspecified chronic bronchitis (8) DM II (diabetes mellitus, type II), controlled Diabetes mellitus lobsterman insulin use: without alf use Diabetes mellitus complication status: with kidney complications Diabetes mellitus complication detail: with chronic kidney disease Diabetic retinopathy severity : Proliferative retinopathy type: Diabetes mellitus macular edema: Laterality: Chronic kidney disease stage: stage 3 (moderate) Qualified Code(s ): E11.22 - Type 2 diabetes mellitus with diabetic chronic kidney disease; N18.3 - Chronic kidney disease, stage 3 (moderate) (9) Hypotension Hypotension type: other hypotension type Qualified Code(s): I95.89 - Other hypotension
[2018-10-18] MEDS: DAPTOmycin 325 MG in SYRINGE 0 ML IV SCH (20:25)
[2018-10-18] MEDS ORDERED: INSULIN GLARGINE SOLOSTAR 100 UNITS/ML 3 ML PEN SC SCH (21:00)
[2018-10-18 21:43] LABS: BUN Creatinine Ratio 45.3 (10-20); Calcium 8.5 mg/dl (8.5-10.1); Creatinine Clr Calc Pharmacy 26.6 ml/min; Est GFR (African American) 40.1; Est GFR (Non-African American) 34.6; Potassium 4.6 mmol/L (3.5-5.1)
[2018-10-19] MEDS: PIPERACILLIN/TAZOBACTAM 3.375 GM in DEXTROSE 5% 100 ML IV SCH ×4 (00:42→23:35)
[2018-10-19] MEDS: HEPARIN 100 UNIT/ML 5ML FLUSH FLUSH SCH ×2 (00:43→23:36)
[2018-10-19] MEDS: LEVALBUTEROL HCL 0.63 MG/3 ML NEB NEB SCH ×4 (01:57→19:01)
[2018-10-19 04:18] LABS: Hematocrit (blood only) 24.5 % (42-52); Hemoglobin 7.9 g/dL (14.0-18.0); Mean Corpuscular Hgb Conc 32.2 g/dL (32-36); Mean Corpuscular Volume 84.8 fL (80-100); Mean Platelet Volume 10.5 fL (7.4-10.4); Nucleated RBC # (auto) 1.42 K/uL (0-0); Nucleated RBC % (auto) 6.8 %; Platelet Count 220 K/uL (130-400); RDW Coefficient of Variation 19.5 % (11.5-14.5); RDW Standard Deviation 59.5 fL (36.4-46.3); Red Blood Count 2.89 M/uL (4.7-6.1); White Blood Count 20.81 K/uL (4.8-10.8)
[2018-10-19 04:39] LABS: Albumin Globulin Ratio 0.6 (0.9-2); Albumin Level 2.3 gm/dl (3.4-5.0); BUN Creatinine Ratio 51.5 (10-20); Bilirubin,Total 0.6 mg/dl (0.2-1); Calcium 8.2 mg/dl (8.5-10.1); Creatinine Clr Calc Pharmacy 30.5 ml/min; Est GFR (African American) 47.4; Est GFR (Non-African American) 40.9; Globulin 3.9 gm/dl (2.5-4.0); Potassium 4.4 mmol/L (3.5-5.1); Total Protein 6.2 gm/dl (6.4-8.2)
[2018-10-19 04:43] LABS: Anisocytosis Present; Basophils # (auto) 0.11 K/uL (0-0.2); Basophils % (auto) 0.5 %; Immature Granulocytes # (auto) 1.32 K/uL (0.00-0.02); Immature Granulocytes % (auto) 6.3 %; Lymphocytes # (auto) 0.61 K/uL (1.2-3.4); Lymphocytes % (auto) 2.9 %; Monocytes # (auto) 1.97 K/uL (0.11-0.59); Monocytes % (auto) 9.5 %; Neutrophils % (auto) 80.8 %; Polychromasia 1+
[2018-10-19] MEDS: CARBOHYDRATES FOR HYPOGLYCEMIA PO PRN (04:45)
[2018-10-19] MEDS ORDERED: INSULIN HUMAN NPH SC SCH (07:30)
[2018-10-19] MEDS: FERROUS SULFATE 325 MG TAB PO SCH ×2 (08:11→20:06)
[2018-10-19] MEDS: MAGNESIUM OXIDE 400 MG TAB PO SCH (08:12)
[2018-10-19] MEDS: OXYBUTYNIN CHLORIDE 5 MG TAB PO SCH ×2 (08:12→20:06)
[2018-10-19] MEDS: CEROVITE ADV FORMULA TAB PO SCH (08:13)
[2018-10-19] MEDS: PANTOprazole 40 MG TAB PO SCH (08:14)
[2018-10-19] MEDS: CYANOCOBALAMIN 500 MCG TABLET (VITAMIN B-12) PO SCH (08:15)
[2018-10-19] MEDS: predniSONE 20 MG TAB PO SCH (08:16)
[2018-10-19] MEDS: FINASTERIDE 5 MG TAB PO SCH (08:16)
[2018-10-19] MEDS: ASPIRIN 81 MG ECTAB PO SCH (08:16)
[2018-10-19] MEDS: HEPARIN SOD 5,000 UNIT/0.5 ML VIAL SQ SCH ×2 (08:45→20:07)
[2018-10-19] MEDS: INSULIN ASPART 100 UNITS/ML 3 ML PEN SC SCH ×4 (08:49→21:40)
[2018-10-19] MEDS ORDERED: CEFEPIME 2,000 MG in SYRINGE 7.5 ML IV SCH (09:00)
--- NOTE | 2018-10-19 09:12 | Pharmacy Report ---
PHA: Glycemic Control AP - Date of Service October 19, 2018 - Assessment & Plan Outpatient Anti-diabetic Regimen: * Glipizide 5 mg po daily * Metformin 1000 mg po BID * A1c = 6.7% on 10/15/18 Risk Factors for Insulin Resistance: * Steroids: methylprednisolone 20 mg IV q12h changed to prednisone 40 mg po daily * Infection: HAP * Diet: T2DM, minced ASSESSMENT: * Mr. Aden is a 72 y/o M known to our service with well controlled T2DM on oral agents alone admitted 10/14 with respiratory failure 2nd HAP * Previous admissions suggest that patient's BSGs are labile with steroid involvement * Anticipate significant impact now that steroids switched to prednisone once- daily - already noted severe hypoglycemia this AM * Severe hypoglycemia this AM 2nd Lantus inappropriately administered yesterday PM - parameters in PM Lantus order noted to hold if methylprednisolone not administered or if BSG less than 160 mg/dL. Methylprednisolone had been discontinued, BSG was 154 mg/dL. * Patient has known history of severe AM hypoglycemia while on prednisone po daily * Cannot tolerate Lantus (effects of Lantus persist overnight and effects of prednisone administered in AM dissipate overnight) * Will switch to insulin NPH - previous admissions while on prednisone 40 mg po daily in which dose of 20 units produced AM fasting BSG's ranging 83-110 mg/ dL. Will use smaller dose this AM 2nd severe AM hypoglycemia and will increase back to previous tomorrow * Novolog parameters for now do not need to be adjusted 2nd steroid adjustment. However, it's possible patient may require an increase in Novolog CHO coverage as effects of prednisone are more prominent during the day. Will monitor post-prandial BSG's today and will consider tightening for BSG >180 mg/ dL PLAN * Discontinue Lantus * Switch to insulin NPH, 12 units SC x1 this AM (to be administered after prednisone and after patient has eaten breakfast). Ongoing qAM based on BSG * 15 units for BSG less than 100 mg/dL * 20 units for BSG 100 mg/dL or greater * Novolog ACHS * Goal range: 120-160 mg/dL * Correction factor: 20 mg/dL/unit * Carb ratio: 8 g CHO/unit Pharmacy will continue to monitor patient daily and write orders per [facility] inpatient glycemic control protocol. Thanks. * Please note that the plan above was derived based on current level of insulin resistance and hospital stress. These recommendations are appropriate for inpatient admission only. Plan of care upon discharge will need to be reassessed to avoid potential outpatient hypo/hyperglycemia.
--- NOTE | 2018-10-19 11:05 | Hospitalist Progress Note ---
Date of Service October 19, 2018 Assessment & Plan (1) ST elevation (STEMI) myocardial infarction: at admission was suspected to be having acute anterior wall STEMI. taken emergently to lab support service tech - STEMI ruled out. exact etiology of positive troponin uncertain but likely due to demand ischemia in setting of acute resp failure, acute/chronic CHF, etc. cont asa for CAD. resume BB when BP will allow but remains on hold for now. (2) Acute respiratory failure with hypoxia and hypercapnia: s/p intubation on hospital day #1 requiring ICU stay. weaned to low-dose NC or room air. continue to treat all pulmonary/cardiac issues. (3) ATN (acute tubular necrosis): creatinine peaked to 1.8 and is now down to 1.63 after small normal saline bolus yesterday with hypotension u/a with granular and hyaline casts. Suspect cardiorenal syndrome suspect the ATN is cardiorenal in origin (has had episodes of hypotension). kidney injury from contrast from his cath or his CTA chest also possible but less likely, also could be from antibiotics/IV voriconazole. sepsis-induced ATN also possible. he is having no urinary retention to suggest obstruction. This is improving today, although the BUN is going up significantly -Follow BMP -Consider nephrology consultation (4) Lactic acidosis: Secondary to hypotension and his severe cardiac dysfunction/LV dysfunction. Cannot rule out element of sepsis/severe sepsis but less likely. Lactate was up to 5.0 on 10/18, now down to 1.8 I spoke with cardiology, Dr. Chaudhry, and we discussed the case in detail. For suspected cardiogenic shock, his blood pressures are improved today, no need for dopamine at this point. Considered blood transfusion but the last time he had 1 unit of blood, he went into flash pulmonary edema requiring intubation in 05/2018. We will hold off on blood transfusion for now (5) Hypotension: He had transient hypotension on 10/18 that responded to very small (250cc) fluid bolus. Recent cortisol level was >50. Beta veronica was held due to the degree of hypotension. I am concerned that the hypotension is cardiac in origin due to severe LV dysfunction (EF was 15-20% earlier this year; could easily be much worse than this). Sepsis-induced hypotension is possible but felt to be unlikely. He may need a pressor agent before long, but will defer for now as blood pressures are maintaining in the 90s-100 which would be normal considering his severe LV dysfunction (6) Acute on chronic systolic (congestive) heart failure: He does appear volume overloaded on examination with JVD Also with ATN, lactic acidosis, etc is due to his severe systolic CHF Holding beta veronica due to hypotension. Dr. Chaudhry from cardiology is following and appreciate consultation -We will hold off on diuretics for now, will not start dopamine at this time Overall, very poor prognosis-discussed with the patient and his family at bedside today -Follow I's and O's, daily weights, low-sodium diet (7) Multifocal pneumonia: Due to borderline hypothermia, elevated procalcitonin, hypotension, etc - - the following were done on 10/18: 1. broadened abx (changed cefepime and doxycycline to zosyn & levaquin). 2. added daptomycin to cover his port - use empirically for 48 hours only 3. repeat blood cx's were obtained-no growth to date 4. serial lactates-now negative, no need to repeat again 5. of note - urine cx from 10/17/18 was negative 6. 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 fungal ball, left lung. repeat bronch THIS admission with repeat fungal cultures, AFB, cytologies, etc. thus far all cx's negative. path from the [facility] negative for malignant cells but this certainly does not rule out a cancer recurrence -Due to elevated LFTs, will hold the voriconazole for now (9) Cavitary lesion of lung: left upper lobe. this is in the location of his original lung cancer from the past. the degree of cavitation in the CHATA has increased over the last year. there has been suspicion of fungal infection in his cavity. see discussion above in "aspergillus". cannot rule out recurrent cancer despite negative path. certainly with his weight loss need to be concerned about recurrent small cell lung ca. (10) Small cell lung cancer: initial diagnosis in 2016, s/p resection around that time, of CHATA. now with concerns of recurrent cancer. see discussion above. (11) CAD (coronary artery disease): see discussion above in "STEMI." troponin repeated-- 2.6, slightly lower from previous. troponin likely remaining elevated due to acute tubular necrosis, ongoing cardiac issues, etc. (12) PVD (peripheral vascular disease): patient denies claudication symptoms of legs but he clearly has PAD given his poor pulses on exam. ideally should be on statin but in light of voriconazole use and elevated LFTs, will defer for now. cont asa. (13) HTN (hypertension): now with hypotension holding any BP med (14) BPH (benign prostatic hyperplasia): cont finasteride poor candidate for alpha veronica due to low BPs he has urinary frequency; PVRs are 0. bladder detrusor instability? trial of ditropan. UA not consistent with infection, urine culture no growth on 10/17 (15) HLD (hyperlipidemia): Statin therapy being held due to elevated LFTs and being on voriconazole which is also now held (16) Anemia: suspect multifactorial including concern about lung ca recurrence, fungal infection, other issues. ferritin level is elevated c/w acute phase reactant. follow cbc's. Hemoglobin down to 7.9 today b12 level was technically normal but in the 300s. will supplement to be complete. -Considered transfusion today however patient and his report and I confirmed in the records that he went into flash pulmonary edema the last time he got 1 unit of PRBCs and required intubation in 05/2018-we will hold off unless becomes urgent (17) CKD stage 3 due to type 2 diabetes mellitus: Cr 1.1 to 1.3 at baseline now with GHANSHYAM/ARF, likely ATN (18) COPD (chronic obstructive pulmonary disease): with exacerbation. no wheezing on exam. stopped solumedrol. -Continue prednisone 40mg daily and taper down cont nebs. cont supportive care. (19) Severe protein-calorie malnutrition: 8kg weight loss over the last 6 months. added boost and MVI. (20) DM II (diabetes mellitus, type II), controlled: With hypoglycemia today -Pharmacy is managing his insulin and we discussed this on the phone and they will adjust to account for this (21) Physical deconditioning: significant. unable to do much activity because of cardiopulmonary disease. has severe BEE. PT, OT - if able. (22) Bradycardia: Bradycardia down to the 40s at times with getting up for urination -Follow on telemetry (23) Elevated LFTs: LFTs in the 3 and 400s today, likely shock liver due to hypotension, as well as some aspect of hepatic congestion due to CHF -Attempts to manage CHF as above -Cannot diurese at this time -Follow LFTs -Holding voriconazole and statin as above (24) DVT prophylaxis: heparin 5000 BID Disposition-remain on telemetry. Discussed with palliative care who saw him today. Ultimately he decided to remain a full code. We did discuss at length his very poor prognosis and family is aware. Full code Subjective Pt feeling very tired and weak. Is not getting any sleep. Is SOB with minimal movement like to get up on side of bed. He is also having some bradycardia to the high 40s with sitting up to urinate. Had a discussion at the bedside regarding his poor prognosis and end-stage conditions including CHF, COPD, with complicating aspergilloma. He is undecided as to whether he wants to remain a full code or not. His blood pressures did improve overnight and there was concerned that he was in cardiogenic shock yesterday. His lactate also improved. Review of Systems All systems reviewed & are unremarkable except as noted in HPI & below Physical Exam 2 Vital Signs (Past 24 Hours): Last Vital Signs Temp 36.7 C 10/19/18 07:00 Pulse 93 H 10/19/18 07:04 Resp 18 10/19/18 07:04 BP 91/61 L 10/19/18 07:00 Pulse Ox 100 10/19/18 07:04 Constitutional: + ill appearing and + thin Eyes: PERRL, conjunctivae normal, anicteric sclerae ENMT: Ears: no hearing impairment Neck: trachea midline, no thyromegaly Respiratory: normal respiratory effort and + cough Auscultation: + rhonchi (On the left) Cardiovascular: RRR, no murmur, no edema Gastrointestinal (Abdomen): normal bowel sounds, soft, nontender, no hepatosplenomegaly Musculoskeletal: Extremities: extremities normal to inspection; no cyanosis and no clubbing Skin: no rashes, warm and dry Neurologic: moves all extremities and awake; no focal motor deficits Psychiatric: Orientation: oriented to person and oriented to place Results & Data Laboratory Results 10/19/18 10/19/18 10/19/18 Range/Units Unknown 20:22 16:23 POC Glucose 79 128 H (70-99) Nasal Screen MRSA (PCR) Negative (Negative) 10/19/18 10/19/18 Range/Units 12:34 07:03 POC Glucose 214 H 127 H (70-99) Nasal Screen MRSA (PCR) (Negative) Lactate down to 1.8 Sodium 139, potassium 4.4, GERD 109, bicarb 24, BUN up to 84, creatinine down to 1.63, glucose low at 47 AST elevated at 479, ALT 452, alkaline phosphatase 335 _ (1) BPH (benign prostatic hyperplasia) Lower urinary tract symptom detail: Lower urinary tract symptom presence: symptoms absent Qualified Code(s): N40.0 - Benign prostatic hyperplasia without lower urinary tract symptoms (2) CAD (coronary artery disease) Associated angina: without angina Coronary Disease-Associated Artery/Lesion type: [place] artery [place] vs. transplanted heart: [place] heart Qualified Code (s): I25.10 - Atherosclerotic heart disease of [place] coronary artery without angina pectoris (3) Anemia Anemia type: other cause Bone marrow failure anemia type: Chronic kidney disease stage: Folate deficiency anemia type: Hemolytic anemia type: Iron deficiency anemia type: Other causes of anemia: other cause, not classified Vitamin B12 deficiency anemia type: Qualified Code(s): D64.89 - Other specified anemias (4) HLD (hyperlipidemia) Hyperlipidemia type: unspecified Qualified Code(s): E78.5 - Hyperlipidemia, unspecified (5) ST elevation (STEMI) myocardial infarction Involved coronary artery: unspecified coronary artery Qualified Code(s): I21.3 - ST elevation (STEMI) myocardial infarction of unspecified site (6) DM II (diabetes mellitus, type II), controlled Chronic kidney disease stage: stage 3 (moderate) Diabetes mellitus complication detail: with chronic kidney disease Diabetes mellitus complication status: with kidney complications Diabetes mellitus [facility] insulin use: without termite inspector use Diabetes mellitus macular edema: Diabetic retinopathy severity: Laterality: Proliferative retinopathy type: Qualified Code(s): E11.22 - Type 2 diabetes mellitus with diabetic chronic kidney disease; N18.3 - Chronic kidney disease, stage 3 (moderate) (7) COPD (chronic obstructive pulmonary disease) COPD type: chronic bronchitis Chronic bronchitis type: unspecified Emphysema type: Qualified Code(s): J42 - Unspecified chronic bronchitis (8) HTN (hypertension) Hypertension type: essential hypertension Qualified Code(s): I10 - Essential (primary) hypertension (9) Hypotension Hypotension type: other hypotension type Trimester: Qualified Code(s): I95.89 - Other hypotension
--- NOTE | 2018-10-19 15:06 | Palliative Care Consultation ---
Date of Consultation October 19, 2018 Assessment & Plan (1) Goals of care, counseling/discussion: -72 year old male patient with extensive PMH including CHF with EF 15%, COPD, small cell lung cancer s/p chemo/XRT to CHATA, aspergillus infection, CAD, stenting, maintained on ASA and Plavix, stopped Plavix March 2018 due to severe epistaxis, and others, presented to hospital with hemoptysis. He was intubated for respiratory failure. Patient was heart alert and went to analyst microbiology lab, could not be stented due to chronic occlusion. He was eventually extubated in ICU and doing better. He was transferred to PCU. Yesterday, patient was hypotensive with SBP in 80s. He was given fluid bolus and did recover. He is being treated for many medical problems listed below. See hospitalist physician's note for details about patient's many acute medical issues. Patient is uncertain of his goals of care or his wishes as far as code status, etc. Palliative care consulted. -Met at length with patient, his Chantal, daughter Dianna, and Dr. Briceno. Patient is awake, alert and oriented x4. Patient is somewhat flat. -Discussed CODE STATUS at length. Patient wishes to remain a full code at this time. He states he wants every chance possible and is not ready to allow himself to if his heart stopped. He fully understands the risk of broken ribs, pain, and being resuscitated to a debilitated state. He states that if he was able to be brought back but then was stuck on ventilator and not getting better, he would want his family to stop treatment and allow natural . His and daughter agreed with this. -Patient wants to continue to live at home with his . We talked about many ways he can make living at home easier for himself and conserve energy. He plans to talk to case management about getting a bedside commode and urinal. Also talked about his diet and watching sodium as well as weighing self daily. -We will continue to follow along and assist with any medical decision making. (2) ATN (acute tubular necrosis): (3) Acute on chronic systolic (congestive) heart failure: (4) Multifocal pneumonia: (5) Acute respiratory failure with hypoxia and hypercapnia: (6) ST elevation (STEMI) myocardial infarction: Involved coronary artery: unspecified coronary artery Qualified Code(s): I21.3 - ST elevation (STEMI) myocardial infarction of unspecified site (7) Aspergillus fumigatus: (8) Cavitary lesion of lung: (9) Small cell lung cancer: (10) Anemia: Anemia type: other cause Bone marrow failure anemia type: Chronic kidney disease stage: Folate deficiency anemia type: Hemolytic anemia type: Iron deficiency anemia type: Other causes of anemia: other cause, not classified Vitamin B12 deficiency anemia type: Qualified Code(s): D64.89 - Other specified anemias (11) COPD (chronic obstructive pulmonary disease): COPD type: chronic bronchitis Chronic bronchitis type: unspecified Emphysema type: Qualified Code(s): J42 - Unspecified chronic bronchitis (12) Severe protein-calorie malnutrition: (13) Physical deconditioning: Supervising Physician Co-Signing Physician Notes Chart reviewed Patient seen and examined along with RAIZA Short PE:NAD HEENT: EOMI, normal hearing Respiratory:Unlabored, clear breath sounds CV: Regular rate, no edema Abdomen: Nondistended Extremities: Full range of motion Neuro: Alert and oriented x4 Agree with above note, assessment and plan as per RAIZA Short-we will continue to assist patient and family with medical decision making History of Present Illness Reason for Consultation: Goals of care, code status Requesting Physician: Dr. Zambrano Attending Physician: Joselyn Zambrano MD History of Present Illness This 72 year old male patient with extensive PMH including CHF with EF 15%, COPD , small cell lung cancer s/p chemo/XRT to [facility], aspergillus infection, CAD, stenting, maintained on ASA and Plavix, stopped Plavix March 2018 due to severe epistaxis, and others, presented to hospital with hemoptysis. He was intubated for respiratory failure. Patient was heart alert and went to analyst microbiology lab, could not be stented due to chronic occlusion. He was eventually extubated in ICU and doing better. He was transferred to PCU. Yesterday, patient was hypotensive with SBP in 80s. He was given fluid bolus and did recover. He is being treated for many medical problems listed below. See hospitalist physician's note for details about patient's many acute medical issues. Patient is uncertain of his goals of care or his wishes as far as code status, etc. Palliative care consulted. See A&P for details. Thank you kindly for this consult. We will follow as needed. Allergies Allergy/AdvReac Type Severity Reaction Status Date / Time No Known Allergies Allergy Verified 10/14/18 04:23 Home Medications Home Medications Medication Instructions Recorded Confirmed Type ferrous sulfate 325 mg PO Q12 09/17/18 10/14/18 History finasteride 5 mg PO QAM 09/17/18 10/14/18 History glipizide 5 mg PO QAM 09/17/18 10/14/18 History magnesium oxide 400 mg PO QAM 09/17/18 10/14/18 History metformin 1,000 mg PO BID 09/17/18 10/14/18 History metoprolol succinate 25 mg PO QAM 09/17/18 10/14/18 History multivitamin with minerals 1 tab PO DAILY 09/17/18 10/14/18 History [Multiple Vitamin-Minerals] pantoprazole 40 mg PO DAILY 09/17/18 10/14/18 History spironolactone 25 mg PO Q OTHER DAY 09/17/18 10/14/18 History voriconazole 200 mg PO BID 30 Days #60 tab 09/19/18 10/14/18 Rx aspirin 81 mg PO QAM 10/14/18 10/14/18 History Patient History Medical History Acute on chronic systolic (congestive) heart failure NH (myocardial infarction) (Resolved) Small cell lung cancer (Acute 01/27/16) "DIAGNOSIS: Lung, CHATA, small cell lung carcinoma, [id number], stage IIIA TREATMENT: 1. Status post completion of combined radiation and chemotherapy. Radiation completed 05/02/2016 received 7000 cGy 2. 2 addition cycles of cisplatin/etoposide - Dr. Jeffery Ash" On 05/09/16 13:18 Beatris Curiel wrote "DIAGNOSIS: Lung, CHATA, small cell lung carcinoma, [id number], stage IIIA, limited stage Status post completion of combined radiation and chemotherapy. Radiation completed 05/02/2016 received 7000 cGy" On 05/09/16 12:53 Beatris Curiel wrote "DIAGNOSIS: Lung, CHATA, small cell lung carcinoma, [id number], stage IIIA, limited stage Status post completion of combined radiation and chemotherapy. Radiation completed 05/01/2016 received 7000 cGy" On 02/23/16 13:12 Jacinta Poole wrote "DIAGNOSIS: Lung, CHATA, small cell lung carcinoma, [id number], stage IIIA, limited stage" CAD (coronary artery disease) PVD (peripheral vascular disease) Hx of myocardial infarction HTN (hypertension) BPH (benign prostatic hyperplasia) HLD (hyperlipidemia) Anemia CKD stage 3 due to type 2 diabetes mellitus COPD (chronic obstructive pulmonary disease) DM II (diabetes mellitus, type II), controlled Consolidation lung Left upper lobe pneumonia Pneumonia Surgical History History of heart artery stent (Chronic) Family History Other Diabetes Heart disease Social History marital status: Current Living Situation: Spouse current occupational status: retired Feels Safe at Home: Yes Smoking Status: Never smoker Hx Alcohol Use: No Hx Substance Use: No Beliefs That Will Affect Care: None Communication Ability: Effective Review of Systems Constitutional: no weakness Ear, Nose, Mouth, Throat: no dysphagia Respiratory: no cough and no dyspnea Cardiovascular: no chest pain and no edema Gastrointestinal: no abdominal pain, no nausea and no vomiting Genitourinary (Male): + nocturia Neurologic: no confusion Psychiatric: + depression (related to his health); no anxiety Physical Exam 2 Vital Signs (Past 24 Hours): Last Vital Signs Temp 36.7 C 10/19/18 07:00 Pulse 97 H 10/19/18 13:59 Resp 18 10/19/18 13:59 BP 91/61 L 10/19/18 07:00 Pulse Ox 100 10/19/18 13:59 Constitutional: + thin; no acute distress ENMT: chipped and missing teeth Neck: normal visual inspection and trachea midline Respiratory: normal respiratory effort, lungs clear to auscultation Cardiovascular: RRR, no murmur, no edema Rate/Rhythm: + tachycardic Vessels: dorsalis pedis pulses present Gastrointestinal (Abdomen): normal bowel sounds, soft, nontender, no hepatosplenomegaly Skin: no rashes, warm and dry Neurologic: awake; not confused Psychiatric: Orientation: alert and oriented x 3 Affect: + flat affect Time Spent Midlevel 70 minutes with >50% of time spent at bedside with patient and family discussing condition, GOC, and code status.
--- NOTE | 2018-10-19 15:31 | Cardiology Progress Note ---
Date of Service October 19, 2018 Assessment & Plan (1) Ischemic cardiomyopathy: He has severely reduced LV systolic function. Appears to have element of both right and left heart failure. His left ventricular filling pressures were quite elevated at the time of his initial catheterization and has not diuresed significantly since that time. I suspect an element of his dyspnea is related to pulmonary vascular congestion. Ideally he would effective diuresis but appears to have hypoperfusion of his kidneys. I suggested administration of colloid in the form of blood products as well as a dopamine infusion in the hopes of affecting some improved renal function and diuresis. (2) ST elevation (STEMI) myocardial infarction: Patient appeared to have a chronically occluded diagonal branch. No intervention was performed. His mildly elevated biomarkers which have remained elevated despite several days time. This is likely related to both an element of renal dysfunction as well as chronic ongoing ischemia. His past history includes percutaneous intervention to the right coronary artery x2 in February 2006 PCI to the circumflex and obtuse marginal in 12/2007 PCI to the 1st diagonal in the setting of an anterolateral OR in 11/2007 (3) Dyspnea: Multifactorial. Given his elevated LVEDP, he likely has an element of pulmonary edema. Ideally he would be decongested with diuresis. However there has been some trouble affecting diuresis given his poor renal perfusion. (4) Bradycardia: He did have some transient bradycardia today reportedly while urinating. He has reported some pain with urination in this likely represented a vagally mediated event. He did not report other symptoms of high vagal tone such as dizziness diaphoresis or fatigue. I do not believe he has any current indication for intervention in this regard. Subjective This afternoon the patient claims to be feeling well. He states that he still has significant breathing difficulty even with minimal exertion. At rest he appears relatively comfortable. He denies symptoms of chest discomfort or pain at other sites. He is somewhat frustrated the loss of 1 of his bicuspid teeth. His appetite has been good. He does have some pain with urination which is improving. Physical Exam 2 Vital Signs (Past 24 Hours): Last Vital Signs Temp 36.7 C 10/19/18 07:00 Pulse 97 H 10/19/18 13:59 Resp 18 10/19/18 13:59 BP 91/61 L 10/19/18 07:00 Pulse Ox 100 10/19/18 13:59 Physical Exam: The patient is alert and oriented. Mood and affect appeared normal. He answered all questions appropriately. HEENT: Pupils are equal and reactive to light and accommodation. Extraocular movements are intact. The sclerae are anicteric. Poor dentition Neuro: Cranial nerves intact Neck: Patient's neck is supple. He has palpable carotid pulses bilaterally without bruits on auscultation. Severe jugular venous distention. The thyroid is not enlarged. Lungs: Fine crackles throughout all lung watts. He has good air movement without use of accessory muscles. No expiratory wheezing Cardiac: Heart demonstrates a regular rate and rhythm. Normal S1 and S2. No murmurs on examination. Pulses: The patient has palpable radial pulses bilaterally that are equal in intensity Extremities: There was no evidence of hypoperfusion. There is no cyanosis or clubbing. Mild lower extremity edema. Skin: I did not appreciate any rashes on examination today. Results & Data Laboratory Results Abnormal Lab Results 10/18/18 10/18/18 10/18/18 15:34 15:34 15:34 WBC RBC Hgb Hct MCV MCH MCHC RDW Std Deviation RDW Coeff of Molly Plt Count MPV Immature Gran % (Auto) Neut % (Auto) Lymph % (Auto) [place] % (Auto) Eos % (Auto) Baso % (Auto) Immature Gran # (Auto) Neut # (Auto) Lymph # (Auto) [place] # (Auto) Eos # (Auto) Baso # (Auto) Absolute Nucleated RBC Nucleated RBC % (auto) Polychromasia Anisocytosis VBG pH VBG pCO2 VBG pO2 VBG HCO3 VBG O2 Saturation VBG Base Excess Barometric Pressure Sodium Potassium Chloride Carbon Dioxide Anion Gap BUN Creatinine Est Cr Clr Drug Dosing Est GFR ( Amer) Est GFR (Non-Af Amer) BUN/Creatinine Ratio Glucose POC Glucose Lactate 5.0 H* Calcium Total Bilirubin AST ALT Alkaline Phosphatase Troponin I 2.690 H* Total Protein Albumin Globulin Albumin/Globulin Ratio Procalcitonin 0.77 H TSH 1.430 10/18/18 10/18/18 10/18/18 15:34 16:26 16:46 WBC RBC Hgb Hct MCV MCH MCHC RDW Std Deviation RDW Coeff of Molly Plt Count MPV Immature Gran % (Auto) Neut % (Auto) Lymph % (Auto) [place] % (Auto) Eos % (Auto) Baso % (Auto) Immature Gran # (Auto) Neut # (Auto) Lymph # (Auto) [place] # (Auto) Eos # (Auto) Baso # (Auto) Absolute Nucleated RBC Nucleated RBC % (auto) Polychromasia Anisocytosis VBG pH Cancelled 7.34 L VBG pCO2 Cancelled 36 L VBG pO2 Cancelled 29 VBG HCO3 Cancelled 19 VBG O2 Saturation Cancelled < 60.0 VBG Base Excess Cancelled -6.2 Barometric Pressure Cancelled 731.7 Sodium Potassium Chloride Carbon Dioxide Anion Gap BUN Creatinine Est Cr Clr Drug Dosing Est GFR ( Amer) Est GFR (Non-Af Amer) BUN/Creatinine Ratio Glucose POC Glucose 240 H Lactate Calcium Total Bilirubin AST ALT Alkaline Phosphatase Troponin I Total Protein Albumin Globulin Albumin/Globulin Ratio Procalcitonin TSH 10/18/18 10/18/18 10/18/18 20:23 21:18 21:18 WBC RBC Hgb Hct MCV MCH MCHC RDW Std Deviation RDW Coeff of Molly Plt Count MPV Immature Gran % (Auto) Neut % (Auto) Lymph % (Auto) [place] % (Auto) Eos % (Auto) Baso % (Auto) Immature Gran # (Auto) Neut # (Auto) Lymph # (Auto) [place] # (Auto) Eos # (Auto) Baso # (Auto) Absolute Nucleated RBC Nucleated RBC % (auto) Polychromasia Anisocytosis VBG pH VBG pCO2 VBG pO2 VBG HCO3 VBG O2 Saturation VBG Base Excess Barometric Pressure Sodium 138 Potassium 4.6 Chloride 107 Carbon Dioxide 20 L Anion Gap 11.0 BUN 85 H Creatinine 1.87 H Est Cr Clr Drug Dosing 26.6 Est GFR ( Amer) 40.1 Est GFR (Non-Af Amer) 34.6 BUN/Creatinine Ratio 45.3 H Glucose 154 H POC Glucose 180 H Lactate 3.4 H* Calcium 8.5 Total Bilirubin AST ALT Alkaline Phosphatase Troponin I Total Protein Albumin Globulin Albumin/Globulin Ratio Procalcitonin TSH 10/19/18 10/19/18 10/19/18 04:08 04:08 04:08 WBC 20.81 H RBC 2.89 L Hgb 7.9 L Hct 24.5 L MCV 84.8 MCH 27.3 MCHC 32.2 RDW Std Deviation 59.5 H RDW Coeff of Molly 19.5 H Plt Count 220 MPV 10.5 H Immature Gran % (Auto) 6.3 Neut % (Auto) 80.8 Lymph % (Auto) 2.9 [place] % (Auto) 9.5 Eos % (Auto) 0.0 Baso % (Auto) 0.5 Immature Gran # (Auto) 1.32 H Neut # (Auto) 16.80 H Lymph # (Auto) 0.61 L [place] # (Auto) 1.97 H Eos # (Auto) 0.00 Baso # (Auto) 0.11 Absolute Nucleated RBC 1.42 H Nucleated RBC % (auto) 6.8 Polychromasia 1+ Anisocytosis Present VBG pH VBG pCO2 VBG pO2 VBG HCO3 VBG O2 Saturation VBG Base Excess Barometric Pressure Sodium 139 Potassium 4.4 Chloride 109 H Carbon Dioxide 24 Anion Gap 6.0 BUN 84 H Creatinine 1.63 H Est Cr Clr Drug Dosing 30.5 Est GFR ( Amer) 47.4 Est GFR (Non-Af Amer) 40.9 BUN/Creatinine Ratio 51.5 H Glucose 47 L* POC Glucose Lactate 1.8 Calcium 8.2 L Total Bilirubin 0.6 AST 479 H ALT 452 H Alkaline Phosphatase 335 H Troponin I Total Protein 6.2 L Albumin 2.3 L Globulin 3.9 Albumin/Globulin Ratio 0.6 L Procalcitonin TSH 10/19/18 10/19/18 10/19/18 04:45 05:04 07:03 WBC RBC Hgb Hct MCV MCH MCHC RDW Std Deviation RDW Coeff of Molly Plt Count MPV Immature Gran % (Auto) Neut % (Auto) Lymph % (Auto) [place] % (Auto) Eos % (Auto) Baso % (Auto) Immature Gran # (Auto) Neut # (Auto) Lymph # (Auto) [place] # (Auto) Eos # (Auto) Baso # (Auto) Absolute Nucleated RBC Nucleated RBC % (auto) Polychromasia Anisocytosis VBG pH VBG pCO2 VBG pO2 VBG HCO3 VBG O2 Saturation VBG Base Excess Barometric Pressure Sodium Potassium Chloride Carbon Dioxide Anion Gap BUN Creatinine Est Cr Clr Drug Dosing Est GFR ( Amer) Est GFR (Non-Af Amer) BUN/Creatinine Ratio Glucose POC Glucose 53 L* 76 127 H Lactate Calcium Total Bilirubin AST ALT Alkaline Phosphatase Troponin I Total Protein Albumin Globulin Albumin/Globulin Ratio Procalcitonin [facility] 10/19/18 12:34 WBC RBC Hgb Hct MCV MCH MCHC RDW Std Deviation RDW Coeff of Molly Plt Count MPV Immature Gran % (Auto) Neut % (Auto) Lymph % (Auto) [place] % (Auto) Eos % (Auto) Baso % (Auto) Immature Gran # (Auto) Neut # (Auto) Lymph # (Auto) [place] # (Auto) Eos # (Auto) Baso # (Auto) Absolute Nucleated RBC Nucleated RBC % (auto) Polychromasia Anisocytosis VBG pH VBG pCO2 VBG pO2 VBG HCO3 VBG O2 Saturation VBG Base Excess Barometric Pressure Sodium Potassium Chloride Carbon Dioxide Anion Gap BUN Creatinine Est Cr Clr Drug Dosing Est GFR ( Amer) Est GFR (Non-Af Amer) BUN/Creatinine Ratio Glucose POC Glucose 214 H Lactate Calcium Total Bilirubin AST ALT Alkaline Phosphatase Troponin I Total Protein Albumin Globulin Albumin/Globulin Ratio Procalcitonin TSH ECG Additional Comments: Telemetry reveals normal sinus rhythm with the exception of 1 brief episode of bradycardia and junctional escape _ (1) ST elevation (STEMI) myocardial infarction Involved coronary artery: unspecified coronary artery Qualified Code(s): I21.3 - ST elevation (STEMI) myocardial infarction of unspecified site (2) Dyspnea Dyspnea type: unspecified Qualified Code(s): R06.00 - Dyspnea, unspecified
[2018-10-19] MEDS: DAPTOmycin 325 MG in SYRINGE 0 ML IV SCH (19:02)
[2018-10-20] MEDS: LEVALBUTEROL HCL 0.63 MG/3 ML NEB NEB SCH ×4 (01:47→19:44)
[2018-10-20 06:54] LABS: Hematocrit (blood only) 25.1 % (42-52); Hemoglobin 8.1 g/dL (14.0-18.0); Mean Corpuscular Hgb Conc 32.3 g/dL (32-36); Mean Corpuscular Volume 85.4 fL (80-100); Mean Platelet Volume 10.6 fL (7.4-10.4); Nucleated RBC # (auto) 1.55 K/uL (0-0); Nucleated RBC % (auto) 6.8 %; Platelet Count 179 K/uL (130-400); RDW Standard Deviation 59.6 fL (36.4-46.3); Red Blood Count 2.94 M/uL (4.7-6.1); White Blood Count 22.93 K/uL (4.8-10.8)
[2018-10-20 07:32] LABS: Albumin Level 2.4 gm/dl (3.4-5.0); BUN Creatinine Ratio 45.8 (10-20); Bilirubin Direct 0.5 mg/dl (0-0.2); Bilirubin,Total 0.8 mg/dl (0.2-1); Calcium 8.4 mg/dl (8.5-10.1); Creatinine Clr Calc Pharmacy 34.3 ml/min; Est GFR (African American) 50.4; Est GFR (Non-African American) 43.5; Magnesium 2.4 mg/dl (1.8-2.4); Potassium 4.2 mmol/L (3.5-5.1)
[2018-10-20 07:34] LABS: Total Protein 6.4 gm/dl (6.4-8.2)
[2018-10-20 07:35] LABS: Anisocytosis Present; Basophils # (auto) 0.24 K/uL (0-0.2); Eosinophils # (auto) 0.01 K/uL (0-0.5); Immature Granulocytes # (auto) 1.85 K/uL (0.00-0.02); Immature Granulocytes % (auto) 8.1 %; Lymphocytes # (auto) 0.82 K/uL (1.2-3.4); Lymphocytes % (auto) 3.6 %; Monocytes # (auto) 1.91 K/uL (0.11-0.59); Monocytes % (auto) 8.3 %
[2018-10-20] MEDS: INSULIN HUMAN NPH SC SCH (07:35)
[2018-10-20] MEDS: INSULIN ASPART 100 UNITS/ML 3 ML PEN SC SCH ×4 (07:36→20:48)
[2018-10-20] MEDS: ASPIRIN 81 MG ECTAB PO SCH (07:37)
[2018-10-20] MEDS: predniSONE 20 MG TAB PO SCH (07:38)
[2018-10-20] MEDS: FINASTERIDE 5 MG TAB PO SCH (07:38)
[2018-10-20] MEDS: PANTOprazole 40 MG TAB PO SCH (07:38)
[2018-10-20] MEDS: HEPARIN SOD 5,000 UNIT/0.5 ML VIAL SQ SCH ×2 (07:38→20:53)
[2018-10-20] MEDS: FERROUS SULFATE 325 MG TAB PO SCH ×2 (07:39→20:53)
[2018-10-20] MEDS: CYANOCOBALAMIN 500 MCG TABLET (VITAMIN B-12) PO SCH (07:40)
[2018-10-20] MEDS: MAGNESIUM OXIDE 400 MG TAB PO SCH (07:40)
[2018-10-20] MEDS: CEROVITE ADV FORMULA TAB PO SCH (07:40)
[2018-10-20] MEDS: OXYBUTYNIN CHLORIDE 5 MG TAB PO SCH (07:40)
[2018-10-20] MEDS: PIPERACILLIN/TAZOBACTAM 3.375 GM in DEXTROSE 5% 100 ML IV SCH ×2 (07:41→16:47)
--- NOTE | 2018-10-20 11:18 | Cardiology Progress Note ---
Date of Service October 20, 2018 Assessment & Plan (1) Ischemic cardiomyopathy: The patient has a severely reduced left ventricular ejection fraction. There is likely a component of pulmonary edema, however, diuretics are on hold because of his renal insufficiency and relative hypotension. He is currently stable at this time. (2) ST elevation (STEMI) myocardial infarction: Likely secondary to a chronically occluded diagonal branch. He does carry history of several interventions previously including PCI to the RCA x2 in February 2006, PCI to the LCX and om in December 2007, and PCI to the 1st diagonal branch in November 2007. (3) Dyspnea: As above, suspect a component of pulmonary vascular congestion. Diuretics currently on hold. Patient is stable. (4) Bradycardia: Resolved. Subjective Patient is resting comfortably in bed without complaints of chest discomfort. Does note dyspnea with physical activity. His and daughter are at the bedside. Physical Exam 2 Vital Signs (Past 24 Hours): Last Vital Signs Temp 36.4 C L 10/20/18 07:10 Pulse 95 H 10/20/18 07:10 Resp 18 10/20/18 07:10 BP 90/69 L 10/20/18 07:10 Pulse Ox 100 10/20/18 07:10 Physical Exam: In general this is a white male resting comfortably in bed. HEENT exam notes poor dentition. Neck is supple with full carotid upstrokes. Jugular venous pressure is elevated to the angle of the jaw. Cardiovascular exam reveals a regular rhythm with distant heart sounds. Lungs note rales at the left base. Abdomen is soft without bruits. Extremities reveal intact radial artery pulses bilaterally. Trace pretibial edema is noted. Results & Data Laboratory Results Laboratory Results - last 24 hr 10/19/18 10/19/18 10/19/18 12:34 16:23 20:22 WBC RBC Hgb Hct MCV MCH MCHC RDW Std Deviation RDW Coeff of Molly Plt Count MPV Immature Gran % (Auto) Neut % (Auto) Lymph % (Auto) [place] % (Auto) Eos % (Auto) Baso % (Auto) Immature Gran # (Auto) Neut # (Auto) Lymph # (Auto) [place] # (Auto) Eos # (Auto) Baso # (Auto) Absolute Nucleated RBC Nucleated RBC % (auto) Anisocytosis Sodium Potassium Chloride Carbon Dioxide Anion Gap BUN Creatinine Est Cr Clr Drug Dosing Est GFR ( Amer) Est GFR (Non-Af Amer) BUN/Creatinine Ratio Glucose POC Glucose 214 H 128 H 79 Calcium Magnesium Total Bilirubin Direct Bilirubin AST ALT Alkaline Phosphatase Total Protein Albumin Nasal Screen MRSA (PCR) 10/19/18 10/20/18 10/20/18 Unknown 06:39 06:39 WBC 22.93 H RBC 2.94 L Hgb 8.1 L Hct 25.1 L MCV 85.4 MCH 27.6 MCHC 32.3 RDW Std Deviation 59.6 H RDW Coeff of Molly 20.0 H Plt Count 179 MPV 10.6 H Immature Gran % (Auto) 8.1 Neut % (Auto) 79.0 Lymph % (Auto) 3.6 [place] % (Auto) 8.3 Eos % (Auto) 0.0 Baso % (Auto) 1.0 Immature Gran # (Auto) 1.85 H Neut # (Auto) 18.10 H Lymph # (Auto) 0.82 L [place] # (Auto) 1.91 H Eos # (Auto) 0.01 Baso # (Auto) 0.24 H Absolute Nucleated RBC 1.55 H Nucleated RBC % (auto) 6.8 Anisocytosis Present Sodium 138 Potassium 4.2 Chloride 109 H Carbon Dioxide 22 Anion Gap 7.0 BUN 71 H Creatinine 1.55 H Est Cr Clr Drug Dosing 34.3 Est GFR ( Amer) 50.4 Est GFR (Non-Af Amer) 43.5 BUN/Creatinine Ratio 45.8 H Glucose 55 L POC Glucose Calcium 8.4 L Magnesium 2.4 Total Bilirubin 0.8 Direct Bilirubin 0.5 H AST 884 H ALT 753 H Alkaline Phosphatase 544 H Total Protein 6.4 Albumin 2.4 L Nasal Screen MRSA (PCR) Negative 10/20/18 07:22 WBC RBC Hgb Hct MCV MCH MCHC RDW Std Deviation RDW Coeff of Molly Plt Count MPV Immature Gran % (Auto) Neut % (Auto) Lymph % (Auto) [place] % (Auto) Eos % (Auto) Baso % (Auto) Immature Gran # (Auto) Neut # (Auto) Lymph # (Auto) [place] # (Auto) Eos # (Auto) Baso # (Auto) Absolute Nucleated RBC Nucleated RBC % (auto) Anisocytosis Sodium Potassium Chloride Carbon Dioxide Anion Gap BUN Creatinine Est Cr Clr Drug Dosing Est GFR ( Amer) Est GFR (Non-Af Amer) BUN/Creatinine Ratio Glucose POC Glucose 94 Calcium Magnesium Total Bilirubin Direct Bilirubin AST ALT Alkaline Phosphatase Total Protein Albumin Nasal Screen MRSA (PCR) 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 _ (1) Dyspnea Dyspnea type: unspecified Qualified Code(s): R06.00 - Dyspnea, unspecified (2) ST elevation (STEMI) myocardial infarction Involved coronary artery: unspecified coronary artery Qualified Code(s): I21.3 - ST elevation (STEMI) myocardial infarction of unspecified site
--- NOTE | 2018-10-20 13:27 | Pharmacy Report ---
Pharmacy Glycemic Short Note 2 - Date of Service October 20, 2018 - Glycemic Short BSG Results (Last 24 hours): 10/19/18 10/19/18 10/19/18 12:34 16:23 20:22 Glucose POC Glucose 214 H 128 H 79 10/20/18 10/20/18 10/20/18 06:39 07:22 11:41 Glucose 55 L POC Glucose 94 107 H Outpatient Anti-diabetic Regimen: * glipizide 5 mg PO daily plus metformin 1000 mg BID * A1c = 6.7 % 05/2018 Risk Factors for Insulin Resistance: * Steroids: Prednisone 40mg PO daily * Infection: HAP * Diet:Type 2 DM ASSESSMENT: * Blood sugars running low last night and went down to 55mg/dl this morning d/t too much basal - decrease with dose starting tomorrow, reduced dose was given per scale this morning. PLAN * NPH SQ QAM - 5 units for BSG < 100mg/dl; 8 units for BSG 100mg/dl or greater * Novolog ACHS * Goal range: 120-160 mg/dL * Correction factor: 20 mg/dL/unit * Carb ratio: 7 g CHO/unit
[2018-10-20] MEDS ORDERED: FUROSEMIDE 20 MG in SYRINGE 0 ML IV STA ×2 (15:00→15:15)
--- NOTE | 2018-10-20 15:46 | Hospitalist Progress Note ---
Date of Service October 20, 2018 Assessment & Plan (1) ST elevation (STEMI) myocardial infarction: Upon admission was suspected to be having acute anterior wall STEMI. 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 Had a chronically occluded diagnoal branch Positive troponin uncertain but likely due to demand ischemia in setting of acute resp failure, acute/chronic CHF, etc. cont asa for CAD. resume BB when BP will allow but remains on hold for now. (2) Acute respiratory failure with hypoxia and hypercapnia: s/p intubation on hospital day #1 requiring ICU stay. weaned to low-dose NC or room air. continue to treat all pulmonary/cardiac issues. (3) ATN (acute tubular necrosis): creatinine peaked to 1.8 and is now down to 1.55 after resolution of hypotension on 10/18 u/a with granular and hyaline casts. Suspect cardiorenal syndrome suspect the ATN is cardiorenal in origin (has had episodes of hypotension). kidney injury from contrast from his cath or his CTA chest also possible but less likely, also could be from antibiotics/IV voriconazole. sepsis-induced ATN also possible. he is having no urinary retention to suggest obstruction. Continues to improve today, is making adequate urine, electrolytes acceptable With volume overload, giving IV lasix today -Follow BMP -Consider nephrology consultation if worsens again (4) Lactic acidosis: Secondary to hypotension and his severe cardiac dysfunction/LV dysfunction. Cannot rule out element of sepsis/severe sepsis but less likely. Lactate was up to 5.0 on 10/18, now down to 1.8 I spoke with cardiology, Dr. Chaudhry, and we discussed the case in detail. For suspected cardiogenic shock, his blood pressures are improved today, no need for dopamine at this point. Considered blood transfusion but the last time he had 1 unit of blood, he went into flash pulmonary edema requiring intubation in 05/2018. We will hold off on blood transfusion for now (5) Hypotension: He had transient hypotension on 10/18 that responded to very small (250cc) fluid bolus. Recent cortisol level was >50. Beta veronica was held due to the degree of hypotension. I am concerned that the hypotension is cardiac in origin due to severe LV dysfunction (EF was 15-20% earlier this year; could easily be much worse than this). Sepsis-induced hypotension is possible but felt to be unlikely. He may need a pressor agent before long, but will defer for now as blood pressures are maintaining in the 90s-100 which would be normal considering his severe LV dysfunction Giving lasix today so will watch closely for hypotension and start dopamine as needed (6) Acute on chronic systolic (congestive) heart failure: With worsening dyspnea and PND today He does appear volume overloaded on examination with JVD , and now with worsening dyspnea, PND, and weight gain Also with ATN, lactic acidosis, etc is due to his severe systolic CHF Holding beta veronica due to hypotension. Cardiology is following and appreciate recommendations Overall, very poor prognosis-discussed with the patient and his family at bedside today -Follow I's and O's, daily weights, low-sodium diet -give Lasix 20mg IV x 1 now -follow BP as above and start dopamine and transfer to ICU if decompensates (7) Multifocal pneumonia: Due to borderline hypothermia, elevated procalcitonin, hypotension, etc - - the following were done on 10/18: 1. broadened abx (changed cefepime and doxycycline to zosyn & levaquin). 2. added daptomycin to cover his port - use empirically for 48 hours only-dcd today as MRSA swab negative and cultures negative 3. repeat blood cx's were obtained-no growth to date 4. serial lactates-now negative, no need to repeat again 5. of note - urine cx from 10/17/18 was negative 6. 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 repeat bronch THIS admission with repeat fungal cultures, AFB, cytologies, etc. thus far all cx's negative. path from the [facility] negative for malignant cells but this certainly does not rule out a cancer recurrence -continue to hold the voriconazole for now (9) Cavitary lesion of lung: left upper lobe. this is in the location of his original lung cancer from the past. the degree of cavitation in the [facility] has increased over the last year. there has been suspicion of fungal infection in his cavity. see discussion above in "aspergillus". cannot rule out recurrent cancer despite negative path. certainly with his weight loss need to be concerned about recurrent small cell lung ca. (10) Small cell lung cancer: initial diagnosis in 2016, s/p resection around that time, of [facility]. now with concerns of recurrent cancer. see discussion above. (11) CAD (coronary artery disease): see discussion above in "STEMI." troponin likely remaining elevated due to acute tubular necrosis, ongoing cardiac issues, etc. ECG today with no evidence of acute ischemia Check troponin again now nad in 6 hours (12) PVD (peripheral vascular disease): patient denies claudication symptoms of legs but he clearly has PAD given his poor pulses on exam. ideally should be on statin but in light of voriconazole use and elevated LFTs, will defer for now. cont asa. (13) HTN (hypertension): now with hypotension holding any BP meds (14) BPH (benign prostatic hyperplasia): cont finasteride poor candidate for alpha veronica due to low BPs he has urinary frequency; PVRs are 0. UA not consistent with infection, urine culture no growth on 10/17 Will dc oxybutynin in case causing urinary retention given small volumes being voided (RN reports 100 mLs at a time) (15) HLD (hyperlipidemia): Statin therapy being held due to elevated LFTs and being on voriconazole which is also now held (16) Anemia: suspect multifactorial including concern about lung ca recurrence, fungal infection, other issues. ferritin level is elevated c/w acute phase reactant. follow cbc's. Hemoglobin down to 7.9 at [facility], now up to 8.1 b12 level was technically normal but in the 300s. will supplement to be complete. -Considered transfusion however patient and his report (and I confirmed in the records) that he went into flash pulmonary edema the last time he got 1 unit of PRBCs and required intubation in 05/2018-we will hold off unless becomes urgent (17) CKD stage 3 due to type 2 diabetes mellitus: Cr 1.1 to 1.3 at baseline now with GHANSHYAM/ARF, likely ATN which is improving (18) COPD (chronic obstructive pulmonary disease): with exacerbation. no wheezing on exam. stopped solumedrol. -Continue prednisone and taper down to 30mg daily for tomorrow cont nebs. cont supportive care. (19) Severe protein-calorie malnutrition: 8kg weight loss over the last 6 months. added boost and MVI. (20) DM II (diabetes mellitus, type II), controlled: With hypoglycemia again today -Pharmacy is managing his insulin and have lowered the basal dosing today (21) Physical deconditioning: significant. unable to do much activity because of cardiopulmonary disease. has severe BEE. PT, OT - if able. (22) Bradycardia: Bradycardia down to the 40s at times with getting up for urination -Follow on telemetry (23) Elevated LFTs: LFTs in the wotse today into the 700s-800s, likely shock liver due to hypotension, as well as some aspect of hepatic congestion due to CHF -Attempts to manage CHF as above -Follow LFTs -Holding voriconazole and statin as above (24) DVT prophylaxis: heparin 5000 BID Disposition-remain on telemetry. Discussed with palliative care who saw him on 10/19. Ultimately he decided to remain a full code. We did discuss at length his very poor prognosis and family is aware. Full code Subjective Pt feeling very SOB today. He reports it started last night and was coming nad going, at times woke him up feeling he couldn't catch his breath. Today his SOB is making him feel anxious. He is satting 100% on 2LNC. Denies chest pain, nausea. Tele with SB to the 40s at times and NSR, with some ST to the 130s, frequent PVCs. He is mkaing urine, donya po. Review of Systems All systems reviewed & are unremarkable except as noted in HPI & below Physical Exam 2 Vital Signs (Past 24 Hours): Last Vital Signs Temp 36.7 C 10/20/18 12:18 Pulse 101 H 10/20/18 14:20 Resp 18 10/20/18 14:20 BP 118/65 10/20/18 12:18 Pulse Ox 96 10/20/18 14:20 Constitutional: + ill appearing and + thin (sitting in chair, appears anxious and much older than given age) Eyes: PERRL, conjunctivae normal, anicteric sclerae ENMT: Ears: no hearing impairment Neck: trachea midline, no thyromegaly Respiratory: + respiratory distress (mild, with minimal movement) Auscultation: + rhonchi (On the left) Cardiovascular: RRR, no murmur, no edema Gastrointestinal (Abdomen): normal bowel sounds, soft, nontender, no hepatosplenomegaly Musculoskeletal: Extremities: extremities normal to inspection; no cyanosis and no clubbing Skin: no rashes, warm and dry Neurologic: moves all extremities and awake; no focal motor deficits Psychiatric: Orientation: oriented to person and oriented to place Results & Data Laboratory Results 10/20/18 10/20/18 10/20/18 Range/Units 11:41 07:22 06:39 WBC (4.8-10.8) K/uL RBC (4.7-6.1) M/uL Hgb (14.0-18.0) g/dL Hct (42-52) % MCV (80-100) fL MCH (25-34) pg MCHC (32-36) g/dL RDW Std Deviation (36.4-46.3) fL RDW Coeff of Molly (11.5-14.5) % Plt Count (130-400) K/uL MPV (7.4-10.4) fL Immature Gran % (Auto) % Neut % (Auto) % Lymph % (Auto) % [place]arro % (Auto) % Eos % (Auto) % Baso % (Auto) % Immature Gran # (Auto) (0.00-0.02) K/uL Neut # (Auto) (1.4-6.5) K/uL Lymph # (Auto) (1.2-3.4) K/uL Navarro # (Auto) (0.11-0.59) K/uL Eos # (Auto) (0-0.5) K/uL Baso # (Auto) (0-0.2) K/uL Absolute Nucleated RBC (0-0) K/uL Nucleated RBC % (auto) % Anisocytosis Sodium 138 (136-145) mmol/L Potassium 4.2 (3.5-5.1) mmol/L Chloride 109 H (98-107) mmol/L Carbon Dioxide 22 (21-32) mmol/L Anion Gap 7.0 (3-11) BUN 71 H (7-18) mg/dl Creatinine 1.55 H (0.6-1.4) mg/dl Est Cr Clr Drug Dosing 34.3 ml/min Est GFR ( Amer) 50.4 Est GFR (Non-Af Amer) 43.5 BUN/Creatinine Ratio 45.8 H (10-20) Glucose 55 L (70-99) mg/dl POC Glucose 107 H 94 (70-99) Calcium 8.4 L (8.5-10.1) mg/dl Magnesium 2.4 (1.8-2.4) mg/dl Total Bilirubin 0.8 (0.2-1) mg/dl Direct Bilirubin 0.5 H (0-0.2) mg/dl AST 884 H (15-37) U/L ALT 753 H (12-78) U/L Alkaline Phosphatase 544 H (45-117) U/L Total Protein 6.4 (6.4-8.2) gm/dl Albumin 2.4 L (3.4-5.0) gm/dl Nasal Screen MRSA (PCR) (Negative) 10/20/18 10/19/18 10/19/18 Range/Units 06:39 Unknown 20:22 WBC 22.93 H (4.8-10.8) K/uL RBC 2.94 L (4.7-6.1) M/uL Hgb 8.1 L (14.0-18.0) g/dL Hct 25.1 L (42-52) % MCV 85.4 (80-100) fL MCH 27.6 (25-34) pg MCHC 32.3 (32-36) g/dL RDW Std Deviation 59.6 H (36.4-46.3) fL RDW Coeff of Molly 20.0 H (11.5-14.5) % Plt Count 179 (130-400) K/uL MPV 10.6 H (7.4-10.4) fL Immature Gran % (Auto) 8.1 % Neut % (Auto) 79.0 % Lymph % (Auto) 3.6 % Navarro % (Auto) 8.3 % Eos % (Auto) 0.0 % Baso % (Auto) 1.0 % Immature Gran # (Auto) 1.85 H (0.00-0.02) K/uL Neut # (Auto) 18.10 H (1.4-6.5) K/uL Lymph # (Auto) 0.82 L (1.2-3.4) K/uL Navarro # (Auto) 1.91 H (0.11-0.59) K/uL Eos # (Auto) 0.01 (0-0.5) K/uL Baso # (Auto) 0.24 H (0-0.2) K/uL Absolute Nucleated RBC 1.55 H (0-0) K/uL Nucleated RBC % (auto) 6.8 % Anisocytosis Present Sodium (136-145) mmol/L Potassium (3.5-5.1) mmol/L Chloride (98-107) mmol/L Carbon Dioxide (21-32) mmol/L Anion Gap (3-11) BUN (7-18) mg/dl Creatinine (0.6-1.4) mg/dl Est Cr Clr Drug Dosing ml/min Est GFR ( Amer) Est GFR (Non-Af Amer) BUN/Creatinine Ratio (10-20) Glucose (70-99) mg/dl POC Glucose 79 (70-99) Calcium (8.5-10.1) mg/dl Magnesium (1.8-2.4) mg/dl Total Bilirubin (0.2-1) mg/dl Direct Bilirubin (0-0.2) mg/dl AST (15-37) U/L ALT (12-78) U/L Alkaline Phosphatase (45-117) U/L Total Protein (6.4-8.2) gm/dl Albumin (3.4-5.0) gm/dl Nasal Screen MRSA (PCR) Negative (Negative) 10/19/18 Range/Units 16:23 WBC (4.8-10.8) K/uL RBC (4.7-6.1) M/uL Hgb (14.0-18.0) g/dL Hct (42-52) % MCV (80-100) fL MCH (25-34) pg MCHC (32-36) g/dL RDW Std Deviation (36.4-46.3) fL RDW Coeff of Molly (11.5-14.5) % Plt Count (130-400) K/uL MPV (7.4-10.4) fL Immature Gran % (Auto) % Neut % (Auto) % Lymph % (Auto) % [place] % (Auto) % Eos % (Auto) % Baso % (Auto) % Immature Gran # (Auto) (0.00-0.02) K/uL Neut # (Auto) (1.4-6.5) K/uL Lymph # (Auto) (1.2-3.4) K/uL Navarro # (Auto) (0.11-0.59) K/uL Eos # (Auto) (0-0.5) K/uL Baso # (Auto) (0-0.2) K/uL Absolute Nucleated RBC (0-0) K/uL Nucleated RBC % (auto) % Anisocytosis Sodium (136-145) mmol/L Potassium (3.5-5.1) mmol/L Chloride (98-107) mmol/L Carbon Dioxide (21-32) mmol/L Anion Gap (3-11) BUN (7-18) mg/dl Creatinine (0.6-1.4) mg/dl Est Cr Clr Drug Dosing ml/min Est GFR ( Amer) Est GFR (Non-Af Amer) BUN/Creatinine Ratio (10-20) Glucose (70-99) mg/dl POC Glucose 128 H (70-99) Calcium (8.5-10.1) mg/dl Magnesium (1.8-2.4) mg/dl Total Bilirubin (0.2-1) mg/dl Direct Bilirubin (0-0.2) mg/dl AST (15-37) U/L ALT (12-78) U/L Alkaline Phosphatase (45-117) U/L Total Protein (6.4-8.2) gm/dl Albumin (3.4-5.0) gm/dl Nasal Screen MRSA (PCR) (Negative) ECG Indication: SOB/dyspnea Rhythm: normal sinus Additional Comments: no acute ischemic changes _ (1) ST elevation (STEMI) myocardial infarction Involved coronary artery: unspecified coronary artery Qualified Code(s): I21.3 - ST elevation (STEMI) myocardial infarction of unspecified site (2) Hypotension Hypotension type: other hypotension type Trimester: Qualified Code(s): I95.89 - Other hypotension (3) CAD (coronary artery disease) Coronary Disease-Associated Artery/Lesion type: ute artery [place] vs. transplanted heart: ute heart Associated angina: without angina Qualified Code(s): I25.10 - Atherosclerotic heart disease of ute coronary artery without angina pectoris (4) HTN (hypertension) Hypertension type: essential hypertension Qualified Code(s): I10 - Essential (primary) hypertension (5) BPH (benign prostatic hyperplasia) Lower urinary tract symptom presence: symptoms absent Lower urinary tract symptom detail: Qualified Code(s): N40.0 - Benign prostatic hyperplasia without lower urinary tract symptoms (6) HLD (hyperlipidemia) Hyperlipidemia type: unspecified Qualified Code(s): E78.5 - Hyperlipidemia, unspecified (7) Anemia Anemia type: other cause Iron deficiency anemia type: Vitamin B12 deficiency anemia type: Folate deficiency anemia type: Bone marrow failure anemia type: Hemolytic anemia type: Other causes of anemia: other cause, not classified Chronic kidney disease stage: Qualified Code(s): D64.89 - Other specified anemias (8) COPD (chronic obstructive pulmonary disease) COPD type: chronic bronchitis Chronic bronchitis type: unspecified Emphysema type: Qualified Code(s): J42 - Unspecified chronic bronchitis (9) DM II (diabetes mellitus, type II), controlled Diabetes mellitus court recorder insulin use: without court recorder use Diabetes mellitus complication status: with kidney complications Diabetes mellitus complication detail: with chronic kidney disease Diabetic retinopathy severity : Proliferative retinopathy type: Diabetes mellitus macular edema: Laterality: Chronic kidney disease stage: stage 3 (moderate) Qualified Code(s ): E11.22 - Type 2 diabetes mellitus with diabetic chronic kidney disease; N18.3 - Chronic kidney disease, stage 3 (moderate)
--- NOTE | 2018-10-20 16:34 | XRay Report ---
XR chest 1V portable CLINICAL HISTORY: SOB dyspnea COMPARISON STUDY: 10/18/2018 FINDINGS: Slight improvement of the right basilar parenchymal infiltrative process. Similar minimal i mprovement left lung base. Unaltered left apical findings. Central catheter remains in superior vena cava. IMPRESSION: Slight improvement of the patient's bibasilar parenchymal infiltrative change. The above report was generated using voice recognition software. It may contain grammatical, syntax or spelling errors. Electronically signed by: Ezekiel Collier M.D. 10/20/2018 4:33 PM
[2018-10-21] MEDS: PIPERACILLIN/TAZOBACTAM 3.375 GM in DEXTROSE 5% 100 ML IV SCH ×3 (00:42→16:57)
[2018-10-21] MEDS: HEPARIN 100 UNIT/ML 5ML FLUSH FLUSH SCH (00:42)
[2018-10-21] MEDS: LEVALBUTEROL HCL 0.63 MG/3 ML NEB NEB SCH ×2 (01:55→07:03)
[2018-10-21 05:14] LABS: Hematocrit (blood only) 24.2 % (42-52); Hemoglobin 7.6 g/dL (14.0-18.0); Mean Corpuscular Hgb Conc 31.4 g/dL (32-36); Mean Corpuscular Volume 86.1 fL (80-100); Mean Platelet Volume 11.5 fL (7.4-10.4); Nucleated RBC # (auto) 0.68 K/uL (0-0); Nucleated RBC % (auto) 3.4 %; Platelet Count 157 K/uL (130-400); RDW Coefficient of Variation 20.7 % (11.5-14.5); RDW Standard Deviation 59.5 fL (36.4-46.3); Red Blood Count 2.81 M/uL (4.7-6.1); White Blood Count 20.01 K/uL (4.8-10.8)
[2018-10-21 05:45] LABS: Anisocytosis Present; Basophils # (auto) 0.11 K/uL (0-0.2); Basophils % (auto) 0.5 %; Eosinophils # (auto) 0.01 K/uL (0-0.5); Lymphocytes # (auto) 0.62 K/uL (1.2-3.4); Lymphocytes % (auto) 3.1 %; Monocytes # (auto) 1.34 K/uL (0.11-0.59); Monocytes % (auto) 6.7 %; Neutrophils # (auto) 16.73 K/uL (1.4-6.5); Neutrophils % (auto) 83.7 %; Polychromasia 1+
[2018-10-21 05:48] LABS: Albumin Level 2.3 gm/dl (3.4-5.0); BUN Creatinine Ratio 45.2 (10-20); Bilirubin Direct 0.6 mg/dl (0-0.2); Calcium 8.2 mg/dl (8.5-10.1); Creatinine Clr Calc Pharmacy 32.3 ml/min; Est GFR (African American) 47.4; Est GFR (Non-African American) 40.9; Magnesium 2.3 mg/dl (1.8-2.4); Potassium 4.4 mmol/L (3.5-5.1)
[2018-10-21 05:51] LABS: Phosphorus 2.6 mg/dl (2.5-4.9); Total Protein 6.1 gm/dl (6.4-8.2)
[2018-10-21] MEDS: INSULIN HUMAN NPH SC SCH (07:37)
[2018-10-21] MEDS: HEPARIN SOD 5,000 UNIT/0.5 ML VIAL SQ SCH ×2 (07:38→20:53)
[2018-10-21] MEDS: FERROUS SULFATE 325 MG TAB PO SCH ×2 (07:38→19:53)
[2018-10-21] MEDS: CEROVITE ADV FORMULA TAB PO SCH (07:39)
[2018-10-21] MEDS: FINASTERIDE 5 MG TAB PO SCH (07:39)
[2018-10-21] MEDS: ASPIRIN 81 MG ECTAB PO SCH (07:39)
[2018-10-21] MEDS: CYANOCOBALAMIN 500 MCG TABLET (VITAMIN B-12) PO SCH (07:39)
[2018-10-21] MEDS: MAGNESIUM OXIDE 400 MG TAB PO SCH (07:39)
[2018-10-21] MEDS: PANTOprazole 40 MG TAB PO SCH (07:39)
[2018-10-21] MEDS: INSULIN ASPART 100 UNITS/ML 3 ML PEN SC SCH ×4 (07:41→20:15)
[2018-10-21] MEDS ORDERED: FUROSEMIDE 20 MG in SYRINGE 0 ML IV ONE ×2 (08:27→20:00)
[2018-10-21] MEDS ORDERED: predniSONE 10 MG TABLET PO SCH (09:00)
--- NOTE | 2018-10-21 11:15 | Hospitalist Progress Note ---
Date of Service October 21, 2018 Assessment & Plan (1) ST elevation (STEMI) myocardial infarction: Upon admission was suspected to be having acute anterior wall STEMI. Had very concerning ECGs with ST elevation in anterior leads taken emergently to lab rn - STEMI ruled out. Had a chronically occluded diagonal branch that potentially his collaterals were not getting good blood flow during his period of hypoxic failure and intubation? Positive troponin uncertain but likely due to demand ischemia in setting of acute resp failure, acute/chronic CHF, etc. cont asa for CAD. resume BB when BP will allow but remains on hold for now. Repeat ECG during significant respiratory distress on 10/[address] elevation Troponin repeated on 10/20 and was 1.9 and then trended down to 1.6 which are both less than previous (2) Acute respiratory failure with hypoxia and hypercapnia: s/p intubation on hospital day #1 requiring ICU stay. weaned to low-dose NC or room air. continue to treat all pulmonary/cardiac issues. Remains in mild respiratory distress secondary to acute CHF as below (3) ATN (acute tubular necrosis): creatinine peaked to 1.8 and is now down and fairly stable at 1.6 after resolution of hypotension on 10/18 u/a with granular and hyaline casts. Suspect cardiorenal syndrome suspect the ATN is cardiorenal in origin (has had episodes of hypotension). kidney injury from contrast from his cath or his CTA chest also possible but less likely, also could be from antibiotics/IV voriconazole. sepsis-induced ATN also possible. he is having no urinary retention to suggest obstruction. Continues to improve today, is making adequate urine, electrolytes acceptable With volume overload, giving IV lasix again today -Follow BMP -Consider nephrology consultation if worsens again (4) Lactic acidosis: Secondary to hypotension and his severe cardiac dysfunction/LV dysfunction. Cannot rule out element of sepsis/severe sepsis but less likely. Lactate was up to 5.0 on 10/18, now down to 1.8 by the following day I spoke with cardiology, Dr. Chaudhry, and we discussed the case in detail. For suspected cardiogenic shock, his blood pressures are improved today, no need for dopamine at this point. Considered blood transfusion but the last time he had 1 unit of blood, he went into flash pulmonary edema requiring intubation in 05/2018. Hemoglobin is down to 7.6 today-see plan as below (5) Hypotension: He had transient hypotension on 10/18 that responded to very small (250cc) fluid bolus. Overall blood pressures are low due to poor cardiac output Recent cortisol level was >50. Beta veronica continues to be held due to the degree of hypotension. I am concerned that the hypotension is cardiac in origin due to severe LV dysfunction (EF was 15-20% earlier this year; could easily be much worse than this). Sepsis-induced hypotension is possible but felt to be unlikely. He may need a pressor agent before long, but will defer for now as blood pressures are maintaining in the 90s-100 which would be normal considering his severe LV dysfunction Giving lasix again today so will watch closely for hypotension and start dopamine as needed (6) Acute on chronic systolic (congestive) heart failure: With worsening dyspnea and PND on 10/20-given Lasix and had diuresis but still symptomatic He does appear volume overloaded on examination with JVD , and now with worsening dyspnea, PND, and weight gain Also with ATN, lactic acidosis, etc is due to his severe systolic CHF Holding beta veronica due to hypotension. Cardiology is following and appreciate recommendations Overall, very poor prognosis-discussed with the patient and his family at bedside today -Follow I's and O's, daily weights, low-sodium diet -give another dose of Lasix 20mg IV x 1 now -follow BP as above and start dopamine and transfer to ICU if decompensates -His anemia could also be exacerbating this issue and in the setting of ongoing demand ischemia, considering PRBC transfusion of 1 unit today. -Recheck hemoglobin at noon and if less than 7.5, will give 1 unit PRBCs very slowly over 4 hours with extra Lasix (7) Multifocal pneumonia: Due to borderline hypothermia, elevated procalcitonin, hypotension, etc - - the following were done on 10/18: 1. broadened abx (changed cefepime and doxycycline to zosyn & levaquin). 2. added daptomycin to cover his port - use empirically for 48 hours only-dcd after 2 days as MRSA swab negative and cultures negative 3. repeat blood cx's were obtained-no growth to date 4. serial lactates-now negative, no need to repeat again 5. of note - urine cx from 10/17/18 was negative 6. 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 repeat bronch THIS admission with repeat fungal cultures, AFB, cytologies, etc. thus far all cx's negative. path from the [facility] negative for malignant cells but this certainly does not rule out a cancer recurrence -continue to hold the voriconazole for now (9) Cavitary lesion of lung: left upper lobe. this is in the location of his original lung cancer from the past. the degree of cavitation in the [facility] has increased over the last year. there has been suspicion of fungal infection in his cavity. see discussion above in "aspergillus". cannot rule out recurrent cancer despite negative path. certainly with his weight loss need to be concerned about recurrent small cell lung ca. (10) Small cell lung cancer: initial diagnosis in 2015, s/p resection around that time, of [facility]. now with concerns of recurrent cancer. see discussion above. (11) CAD (coronary artery disease): see discussion above in "STEMI." troponin likely remaining elevated due to acute tubular necrosis, ongoing cardiac issues, etc. ECG on 10/20 with no evidence of acute ischemia Troponin trending downward as above (12) PVD (peripheral vascular disease): patient denies claudication symptoms of legs but he clearly has PAD given his poor pulses on exam. ideally should be on statin but in light of voriconazole use and elevated LFTs, will defer for now. cont asa. (13) HTN (hypertension): now with hypotension as above holding any BP meds (14) BPH (benign prostatic hyperplasia): cont finasteride poor candidate for alpha veronica due to low BPs he has urinary frequency; PVRs are 0. UA not consistent with infection, urine culture no growth on 10/17 I discontinued the oxybutynin in case causing urinary retention given small volumes being voided (RN reports 100 mLs at a time) (15) HLD (hyperlipidemia): Statin therapy being held due to elevated LFTs and being on voriconazole which is also now held (16) Anemia: suspect multifactorial including concern about lung ca recurrence, fungal infection, other issues. ferritin level is elevated c/w acute phase reactant. follow cbc's. Hemoglobin down to 7.6 today, no evidence of bleeding b12 level was technically normal but in the 300s. will supplement the B12 to be complete. -Considering transfusion as above, noting that he went into flash pulmonary edema the last time he got 1 unit of PRBCs and required intubation in 05/2018- possible for 1 unit today as above (17) CKD stage 3 due to type 2 diabetes mellitus: Cr 1.1 to 1.3 at baseline now with GHANSHYAM/ARF, likely ATN which is improving (18) COPD (chronic obstructive pulmonary disease): with exacerbation. no wheezing on exam anymore. stopped solumedrol. -Continue prednisone and taper down to 20 mg for tomorrow cont nebs. cont supportive care. (19) Severe protein-calorie malnutrition: 8kg weight loss over the last 6 months. added boost and MVI. (20) DM II (diabetes mellitus, type II), controlled: With hypoglycemia which is now improved with lower doses of insulin -Pharmacy is managing his insulin (21) Physical deconditioning: significant. unable to do much activity because of cardiopulmonary disease. has severe BEE. PT, OT - if able. (22) Bradycardia: Bradycardia down to the 40s at times with getting up for urination-has not had that in the last 24 hours as he is now been off metoprolol for several days -Follow on telemetry (23) Elevated LFTs: LFTs were into the 700s-800s, likely shock liver due to hypotension, as well as some aspect of hepatic congestion due to CHF Improved today likely secondary to diuresis -Attempts to manage CHF as above -Follow LFTs -Continue holding voriconazole and statin as above (24) DVT prophylaxis: heparin 5000 BID Disposition-remain on telemetry. Discussed with palliative care who saw him on 10/19. Ultimately he decided to remain a full code. We did discuss at length his very poor prognosis and family is aware. Full code Subjective Patient still feeling very short of breath today. He was having difficulty sleeping and is not sure if it is because of intermittent dyspnea or not. He is weaned to room air though. He did diurese quite a bit after Lasix yesterday. He denies hemoptysis, hematuria, hematochezia. He had some intermittent left-sided chest dull pain for 5 minutes at a time a few times last night. I discussed the case with cardiology today. I also discussed the possibility of a blood transfusion if hemoglobin goes less than 7.5 giving his ongoing ischemia with the risk of flash pulmonary edema as he has had in the past requiring intubation. Patient reports that he would still want to be intubated, but is unsure if he would want prolonged intubation would like to discuss with his present. However, for now, he wants to remain full code despite his very poor prognosis which we also discussed. Telemetry with normal sinus rhythm, PACs, one 4 beat run of PVC/VT Review of Systems All systems reviewed & are unremarkable except as noted in HPI & below Physical Exam 2 Vital Signs (Past 24 Hours): Last Vital Signs Temp 36.4 C L 10/21/18 04:00 Pulse 88 10/21/18 08:00 Resp 18 10/21/18 07:09 BP 124/89 10/21/18 07:09 Pulse Ox 97 10/21/18 07:09 Constitutional: + ill appearing and + thin (Sitting up in bed, appears anxious and much older than given age) Eyes: PERRL, conjunctivae normal, anicteric sclerae ENMT: Ears: no hearing impairment Neck: trachea midline, no thyromegaly Respiratory: + respiratory distress (mild tachypnea with minimal movement) Auscultation: no rales, no rhonchi and no wheezes Cardiovascular: RRR, no murmur, no edema Vessels: + JVD (to 9 cm at a 90 degree angle) Gastrointestinal (Abdomen): normal bowel sounds, soft, nontender, no hepatosplenomegaly Musculoskeletal: Extremities: extremities normal to inspection; no cyanosis and no clubbing Skin: no rashes, warm and dry Neurologic: moves all extremities and awake; no focal motor deficits Psychiatric: Orientation: oriented to person and oriented to place Results & Data Laboratory Results 10/21/18 10/21/18 10/21/18 Range/Units 08:34 07:35 04:47 WBC (4.8-10.8) K/uL RBC (4.7-6.1) M/uL Hgb (14.0-18.0) g/dL Hct (42-52) % MCV (80-100) fL MCH (25-34) pg MCHC (32-36) g/dL RDW Std Deviation (36.4-46.3) fL RDW Coeff of Molly (11.5-14.5) % Plt Count (130-400) K/uL MPV (7.4-10.4) fL Immature Gran % (Auto) % Neut % (Auto) % Lymph % (Auto) % [place] % (Auto) % Eos % (Auto) % Baso % (Auto) % Immature Gran # (Auto) (0.00-0.02) K/uL Neut # (Auto) (1.4-6.5) K/uL Lymph # (Auto) (1.2-3.4) K/uL [place] # (Auto) (0.11-0.59) K/uL Eos # (Auto) (0-0.5) K/uL Baso # (Auto) (0-0.2) K/uL Absolute Nucleated RBC (0-0) K/uL Nucleated RBC % (auto) % Polychromasia Anisocytosis Sodium 137 (136-145) mmol/L Potassium 4.4 (3.5-5.1) mmol/L Chloride 106 (98-107) mmol/L Carbon Dioxide 23 (21-32) mmol/L Anion Gap 8.0 (3-11) BUN 74 H (7-18) mg/dl Creatinine 1.63 H (0.6-1.4) mg/dl Est Cr Clr Drug Dosing 32.3 ml/min Est GFR ( Amer) 47.4 Est GFR (Non-Af Amer) 40.9 BUN/Creatinine Ratio 45.2 H (10-20) Glucose 156 H (70-99) mg/dl POC Glucose 146 H (70-99) Calcium 8.2 L (8.5-10.1) mg/dl Phosphorus 2.6 (2.5-4.9) mg/dl Magnesium 2.3 (1.8-2.4) mg/dl Total Bilirubin 1.0 (0.2-1) mg/dl Direct Bilirubin 0.6 H (0-0.2) mg/dl AST 486 H (15-37) U/L ALT 667 H (12-78) U/L Alkaline Phosphatase 625 H (45-117) U/L Troponin I (0-0.045) ng/ml Total Protein 6.1 L (6.4-8.2) gm/dl Albumin 2.3 L (3.4-5.0) gm/dl Blood Type O Positive Antibody Screen NEGATIVE Crossmatch See Detail 10/21/18 10/20/18 10/20/18 Range/Units 04:47 22:45 20:10 WBC 20.01 H (4.8-10.8) K/uL RBC 2.81 L (4.7-6.1) M/uL Hgb 7.6 L (14.0-18.0) g/dL Hct 24.2 L (42-52) % MCV 86.1 (80-100) fL MCH 27.0 (25-34) pg MCHC 31.4 L (32-36) g/dL RDW Std Deviation 59.5 H (36.4-46.3) fL RDW Coeff of Molly 20.7 H (11.5-14.5) % Plt Count 157 (130-400) K/uL MPV 11.5 H (7.4-10.4) fL Immature Gran % (Auto) 6.0 % Neut % (Auto) 83.7 % Lymph % (Auto) 3.1 % [place] % (Auto) 6.7 % Eos % (Auto) 0.0 % Baso % (Auto) 0.5 % Immature Gran # (Auto) 1.20 H (0.00-0.02) K/uL Neut # (Auto) 16.73 H (1.4-6.5) K/uL Lymph # (Auto) 0.62 L (1.2-3.4) K/uL [place] # (Auto) 1.34 H (0.11-0.59) K/uL Eos # (Auto) 0.01 (0-0.5) K/uL Baso # (Auto) 0.11 (0-0.2) K/uL Absolute Nucleated RBC 0.68 H (0-0) K/uL Nucleated RBC % (auto) 3.4 % Polychromasia 1+ Anisocytosis Present Sodium (136-145) mmol/L Potassium (3.5-5.1) mmol/L Chloride (98-107) mmol/L Carbon Dioxide (21-32) mmol/L Anion Gap (3-11) BUN (7-18) mg/dl Creatinine (0.6-1.4) mg/dl Est Cr Clr Drug Dosing ml/min Est GFR ( Amer) Est GFR (Non-Af Amer) BUN/Creatinine Ratio (10-20) Glucose (70-99) mg/dl POC Glucose 152 H (70-99) Calcium (8.5-10.1) mg/dl Phosphorus (2.5-4.9) mg/dl Magnesium (1.8-2.4) mg/dl Total Bilirubin (0.2-1) mg/dl Direct Bilirubin (0-0.2) mg/dl AST (15-37) U/L ALT (12-78) U/L Alkaline Phosphatase (45-117) U/L Troponin I 1.680 H* (0-0.045) ng/ml Total Protein (6.4-8.2) gm/dl Albumin (3.4-5.0) gm/dl Blood Type Antibody Screen Crossmatch 10/20/18 10/20/18 10/20/18 Range/Units 16:08 16:01 11:41 WBC (4.8-10.8) K/uL RBC (4.7-6.1) M/uL Hgb (14.0-18.0) g/dL Hct (42-52) % MCV (80-100) fL MCH (25-34) pg MCHC (32-36) g/dL RDW Std Deviation (36.4-46.3) fL RDW Coeff of Molly (11.5-14.5) % Plt Count (130-400) K/uL MPV (7.4-10.4) fL Immature Gran % (Auto) % Neut % (Auto) % Lymph % (Auto) % [place] % (Auto) % Eos % (Auto) % Baso % (Auto) % Immature Gran # (Auto) (0.00-0.02) K/uL Neut # (Auto) (1.4-6.5) K/uL Lymph # (Auto) (1.2-3.4) K/uL [place] # (Auto) (0.11-0.59) K/uL Eos # (Auto) (0-0.5) K/uL Baso # (Auto) (0-0.2) K/uL Absolute Nucleated RBC (0-0) K/uL Nucleated RBC % (auto) % Polychromasia Anisocytosis Sodium (136-145) mmol/L Potassium (3.5-5.1) mmol/L Chloride (98-107) mmol/L Carbon Dioxide (21-32) mmol/L Anion Gap (3-11) BUN (7-18) mg/dl Creatinine (0.6-1.4) mg/dl Est Cr Clr Drug Dosing ml/min Est GFR ( Amer) Est GFR (Non-Af Amer) BUN/Creatinine Ratio (10-20) Glucose (70-99) mg/dl POC Glucose 95 107 H (70-99) Calcium (8.5-10.1) mg/dl Phosphorus (2.5-4.9) mg/dl Magnesium (1.8-2.4) mg/dl Total Bilirubin (0.2-1) mg/dl Direct Bilirubin (0-0.2) mg/dl AST (15-37) U/L ALT (12-78) U/L Alkaline Phosphatase (45-117) U/L Troponin I 1.960 H* (0-0.045) ng/ml Total Protein (6.4-8.2) gm/dl Albumin (3.4-5.0) gm/dl Blood Type Antibody Screen Crossmatch Diagnostic Findings Chest x-ray: Image personally reviewed by me and agree with the following report : XR chest 1V portable on 10/20/18 CLINICAL HISTORY: SOB dyspnea COMPARISON STUDY: 10/18/2018 FINDINGS: Slight improvement of the right basilar parenchymal infiltrative process. Similar minimal improvement left lung base. Unaltered left apical findings. Central catheter remains in superior vena cava. IMPRESSION: Slight improvement of the patient's bibasilar parenchymal infiltrative change. _ (1) ST elevation (STEMI) myocardial infarction Involved coronary artery: unspecified coronary artery Qualified Code(s): I21.3 - ST elevation (STEMI) myocardial infarction of unspecified site (2) Hypotension Hypotension type: other hypotension type Trimester: Qualified Code(s): I95.89 - Other hypotension (3) CAD (coronary artery disease) Coronary Disease-Associated Artery/Lesion type: [place] artery [place] vs. transplanted heart: [place] heart Associated angina: without angina Qualified Code(s): I25.10 - Atherosclerotic heart disease of [place] coronary artery without angina pectoris (4) HTN (hypertension) Hypertension type: essential hypertension Qualified Code(s): I10 - Essential (primary) hypertension (5) BPH (benign prostatic hyperplasia) Lower urinary tract symptom presence: symptoms absent Lower urinary tract symptom detail: Qualified Code(s): N40.0 - Benign prostatic hyperplasia without lower urinary tract symptoms (6) HLD (hyperlipidemia) Hyperlipidemia type: unspecified Qualified Code(s): E78.5 - Hyperlipidemia, unspecified (7) Anemia Anemia type: other cause Iron deficiency anemia type: Vitamin B12 deficiency anemia type: Folate deficiency anemia type: Bone marrow failure anemia type: Hemolytic anemia type: Other causes of anemia: other cause, not classified Chronic kidney disease stage: Qualified Code(s): D64.89 - Other specified anemias (8) COPD (chronic obstructive pulmonary disease) COPD type: chronic bronchitis Chronic bronchitis type: unspecified Emphysema type: Qualified Code(s): J42 - Unspecified chronic bronchitis (9) DM II (diabetes mellitus, type II), controlled 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
[2018-10-21 12:16] LABS: Hematocrit (blood only) 25.4 % (42-52); Mean Corpuscular Hgb Conc 31.5 g/dL (32-36); Mean Corpuscular Volume 86.7 fL (80-100); Mean Platelet Volume 11.1 fL (7.4-10.4); Nucleated RBC # (auto) 0.96 K/uL (0-0); Nucleated RBC % (auto) 4.9 %; Platelet Count 158 K/uL (130-400); RDW Coefficient of Variation 21.6 % (11.5-14.5); RDW Standard Deviation 60.8 fL (36.4-46.3); Red Blood Count 2.93 M/uL (4.7-6.1); White Blood Count 19.42 K/uL (4.8-10.8)
--- NOTE | 2018-10-21 12:34 | Cardiology Progress Note ---
Date of Service October 21, 2018 Assessment & Plan (1) Ischemic cardiomyopathy: The patient has a severely reduced left ventricular ejection fraction and evidence of pulmonary edema. Has received several doses of furosemide 20 mg IV with a decent diuresis. May receive an additional dose this afternoon according to Dr. Zambrano. (2) ST elevation (STEMI) myocardial infarction: Likely secondary to a chronically occluded diagonal branch. He does carry history of several interventions including PCI to the RCA x2 in February 2006, PCI to the LCX and OM in December 2007, and PCI to the D1 in November 2007. (3) Dyspnea: Patient is responding to intravenous diuretics. Will receive a unit of blood today over 4 hours with a dose of furosemide following the transfusion. (4) Bradycardia: Resolved. Subjective Patient is resting comfortably in bed without complaints of chest discomfort. He continues to note dyspnea with most physical activity. Has been diuresing after several doses of intravenous furosemide. Physical Exam 2 Vital Signs (Past 24 Hours): Last Vital Signs Temp 36.4 C L 10/21/18 11:10 Pulse 98 H 10/21/18 11:10 Resp 16 10/21/18 11:10 BP 99/73 L 10/21/18 11:10 Pulse Ox 92 10/21/18 11:10 Physical Exam: In general is well-developed well-nourished elderly white female lying supine in bed without complaints. HEENT exam is negative. Neck is supple with full carotid upstrokes. No carotid bruits. Jugular venous pressure is flat at 90 degrees. There is no thyromegaly. Cardiovascular exam reveals a regular rhythm with a 1/6 basal systolic ejection murmur. A prominent S4 is noted. No S3. Lungs note scattered rhonchi but no rales. Abdomen is soft without bruits. Extremities reveal intact radial pulses bilaterally. Trace pretibial edema is noted. Results & Data Laboratory Results Laboratory Results - last 24 hr 10/20/18 10/20/18 10/20/18 16:01 16:08 20:10 WBC RBC Hgb Hct MCV MCH MCHC RDW Std Deviation RDW Coeff of Molly Plt Count MPV Immature Gran % (Auto) Neut % (Auto) Lymph % (Auto) [place] % (Auto) Eos % (Auto) Baso % (Auto) Immature Gran # (Auto) Neut # (Auto) Lymph # (Auto) [place] # (Auto) Eos # (Auto) Baso # (Auto) Absolute Nucleated RBC Nucleated RBC % (auto) Polychromasia Anisocytosis Sodium Potassium Chloride Carbon Dioxide Anion Gap BUN Creatinine Est Cr Clr Drug Dosing Est GFR ( Amer) Est GFR (Non-Af Amer) BUN/Creatinine Ratio Glucose POC Glucose 95 152 H Calcium Phosphorus Magnesium Total Bilirubin Direct Bilirubin AST ALT Alkaline Phosphatase Troponin I 1.960 H* Total Protein Albumin Blood Type Antibody Screen Crossmatch 10/20/18 10/21/18 10/21/18 22:45 04:47 04:47 WBC 20.01 H RBC 2.81 L Hgb 7.6 L Hct 24.2 L MCV 86.1 MCH 27.0 MCHC 31.4 L RDW Std Deviation 59.5 H RDW Coeff of Molly 20.7 H Plt Count 157 MPV 11.5 H Immature Gran % (Auto) 6.0 Neut % (Auto) 83.7 Lymph % (Auto) 3.1 [place] % (Auto) 6.7 Eos % (Auto) 0.0 Baso % (Auto) 0.5 Immature Gran # (Auto) 1.20 H Neut # (Auto) 16.73 H Lymph # (Auto) 0.[address] [place] # (Auto) 1.34 H Eos # (Auto) 0.01 Baso # (Auto) 0.11 Absolute Nucleated RBC 0.68 H Nucleated RBC % (auto) 3.4 Polychromasia 1+ Anisocytosis Present Sodium 137 Potassium 4.4 Chloride 106 Carbon Dioxide 23 Anion Gap 8.0 BUN 74 H Creatinine 1.63 H Est Cr Clr Drug Dosing 32.3 Est GFR ( Amer) 47.4 Est GFR (Non-Af Amer) 40.9 BUN/Creatinine Ratio 45.2 H Glucose 156 H POC Glucose Calcium 8.2 L Phosphorus 2.6 Magnesium 2.3 Total Bilirubin 1.0 Direct Bilirubin 0.6 H AST 486 H ALT 667 H Alkaline Phosphatase 625 H Troponin I 1.680 H* Total Protein 6.1 L Albumin 2.3 L Blood Type Antibody Screen Crossmatch 10/21/18 10/21/18 10/21/18 07:35 08:34 11:21 WBC RBC Hgb Hct MCV MCH MCHC RDW Std Deviation RDW Coeff of Molly Plt Count MPV Immature Gran % (Auto) Neut % (Auto) Lymph % (Auto) [place] % (Auto) Eos % (Auto) Baso % (Auto) Immature Gran # (Auto) Neut # (Auto) Lymph # (Auto) [place] # (Auto) Eos # (Auto) Baso # (Auto) Absolute Nucleated RBC Nucleated RBC % (auto) Polychromasia Anisocytosis Sodium Potassium Chloride Carbon Dioxide Anion Gap BUN Creatinine Est Cr Clr Drug Dosing Est GFR ( Amer) Est GFR (Non-Af Amer) BUN/Creatinine Ratio Glucose POC Glucose 146 H 184 H Calcium Phosphorus Magnesium Total Bilirubin Direct Bilirubin AST ALT Alkaline Phosphatase Troponin I Total Protein Albumin Blood Type O Positive Antibody Screen NEGATIVE Crossmatch See Detail 10/21/18 11:59 WBC 19.42 H RBC 2.93 L Hgb 8.0 L Hct 25.4 L MCV 86.7 MCH 27.3 MCHC 31.5 L RDW Std Deviation 60.8 H RDW Coeff of Molly 21.6 H Plt Count 158 MPV 11.1 H Immature Gran % (Auto) Neut % (Auto) Lymph % (Auto) [place] % (Auto) Eos % (Auto) Baso % (Auto) Immature Gran # (Auto) Neut # (Auto) Lymph # (Auto) [place] # (Auto) Eos # (Auto) Baso # (Auto) Absolute Nucleated RBC 0.96 H Nucleated RBC % (auto) 4.9 Polychromasia Anisocytosis Sodium Potassium Chloride Carbon Dioxide Anion Gap BUN Creatinine Est Cr Clr Drug Dosing Est GFR ( Amer) Est GFR (Non-Af Amer) BUN/Creatinine Ratio Glucose POC Glucose Calcium Phosphorus Magnesium Total Bilirubin Direct Bilirubin AST ALT Alkaline Phosphatase Troponin I Total Protein Albumin Blood Type Antibody Screen Crossmatch Diagnostic Findings quality assurance monitor body is benign. _ (1) Dyspnea Dyspnea type: unspecified Qualified Code(s): R06.00 - Dyspnea, unspecified (2) ST elevation (STEMI) myocardial infarction Involved coronary artery: unspecified coronary artery Qualified Code(s): I21.3 - ST elevation (STEMI) myocardial infarction of unspecified site
[2018-10-22] MEDS: PIPERACILLIN/TAZOBACTAM 3.375 GM in DEXTROSE 5% 100 ML IV SCH ×3 (00:12→16:50)
[2018-10-22] MEDS: HEPARIN 100 UNIT/ML 5ML FLUSH FLUSH SCH (00:12)
[2018-10-22 05:54] LABS: Mean Corpuscular Hgb Conc 31.5 g/dL (32-36); Nucleated RBC # (auto) 0.82 K/uL (0-0); Nucleated RBC % (auto) 4.3 %
[2018-10-22 06:03] LABS: Hematocrit (blood only) 24.8 % (42-52); Hemoglobin 7.8 g/dL (14.0-18.0); Mean Corpuscular Volume 85.8 fL (80-100); RDW Coefficient of Variation 22.2 % (11.5-14.5); RDW Standard Deviation 59.4 fL (36.4-46.3); Red Blood Count 2.89 M/uL (4.7-6.1); White Blood Count 18.84 K/uL (4.8-10.8)
[2018-10-22 06:04] LABS: INR 1.5 (0.9-1.1); Prothrombin Time 14.7 Seconds (9.0-12.0)
[2018-10-22 06:29] LABS: Albumin Level 2.4 gm/dl (3.4-5.0); BUN Creatinine Ratio 42.2 (10-20); Bilirubin Direct 0.6 mg/dl (0-0.2); Calcium 8.3 mg/dl (8.5-10.1); Creatinine Clr Calc Pharmacy 31.9 ml/min; Est GFR (African American) 49.2; Est GFR (Non-African American) 42.5; Magnesium 2.2 mg/dl (1.8-2.4); Potassium 3.8 mmol/L (3.5-5.1)
[2018-10-22 06:32] LABS: Anisocytosis Present; Basophils # (auto) 0.17 K/uL (0-0.2); Basophils % (auto) 0.9 %; Bilirubin,Total 1.1 mg/dl (0.2-1); Eosinophils # (auto) 0.05 K/uL (0-0.5); Eosinophils % (auto) 0.3 %; Immature Granulocytes # (auto) 1.45 K/uL (0.00-0.02); Immature Granulocytes % (auto) 7.7 %; Lymphocytes # (auto) 0.71 K/uL (1.2-3.4); Lymphocytes % (auto) 3.8 %; Mean Platelet Volume 11.5 fL (7.4-10.4); Monocytes # (auto) 1.76 K/uL (0.11-0.59); Monocytes % (auto) 9.3 %; Phosphorus 2.4 mg/dl (2.5-4.9); Platelet Count 141 K/uL (130-400); Total Protein 6.1 gm/dl (6.4-8.2)
[2018-10-22] MEDS: PANTOprazole 40 MG TAB PO SCH (08:05)
[2018-10-22] MEDS: HEPARIN SOD 5,000 UNIT/0.5 ML VIAL SQ SCH ×2 (08:05→21:02)
[2018-10-22] MEDS: CEROVITE ADV FORMULA TAB PO SCH (08:05)
[2018-10-22] MEDS: FERROUS SULFATE 325 MG TAB PO SCH ×2 (08:05→21:03)
[2018-10-22] MEDS: MAGNESIUM OXIDE 400 MG TAB PO SCH (08:05)
[2018-10-22] MEDS: ASPIRIN 81 MG ECTAB PO SCH (08:06)
[2018-10-22] MEDS: CYANOCOBALAMIN 500 MCG TABLET (VITAMIN B-12) PO SCH (08:06)
[2018-10-22] MEDS: predniSONE 10 MG TABLET PO SCH (08:06)
[2018-10-22] MEDS: FINASTERIDE 5 MG TAB PO SCH (08:06)
[2018-10-22] MEDS: INSULIN ASPART 100 UNITS/ML 3 ML PEN SC SCH ×4 (08:12→21:01)
[2018-10-22] MEDS: INSULIN HUMAN NPH SC SCH (08:13)
[2018-10-22] MEDS ORDERED: PHYTONADIONE 5 MG TAB PO STA (08:16)
[2018-10-22] MEDS ORDERED: POTASSIUM CHLORIDE 20 MEQ TABCR PO STA (08:17)
[2018-10-22] MEDS ORDERED: FUROSEMIDE 40 MG TAB PO SCH (09:00)
[2018-10-22] MEDS ORDERED: LEVALBUTEROL HCL 0.63 MG/3 ML NEB NEB PRN (11:04)
--- NOTE | 2018-10-22 12:10 | Cardiology Progress Note ---
Date of Service October 22, 2018 Assessment & Plan (1) Ischemic cardiomyopathy: Overall his respiratory status appears to be improving. He has not affected a significant diuresis based on the recorded the output. If he does receive a unit of blood today he undoubtedly will require a dose of diuretic the during the transfusion or shortly afterwards. (2) ST elevation (STEMI) myocardial infarction: Likely secondary to a chronically occluded diagonal branch. He does carry history of several interventions including PCI to the RCA x2 in February 2006, PCI to the LCX and OM in December 2007, and PCI to the D1 in November 2007. (3) Dyspnea: Much improved. On room air currently. He still quite weak and has a primary pulmonary process as well. We will need to monitor him closely for evidence of pulmonary congestion and administer diuretics as needed. (4) Bradycardia: Resolved. Subjective This morning patient claims to be feeling quite well. He denies any breathing difficulties at rest. He has been sleeping upright is not performed much in the way of ambulation. He did get to the bedside commode recently did have an element of dyspnea and mild lightheadedness. No symptoms of chest discomfort. No abdominal complaints. He continues to have good appetite and good oral intake. Physical Exam 2 Vital Signs (Past 24 Hours): Last Vital Signs Temp 36.3 C L 10/22/18 11:55 Pulse 99 H 10/22/18 11:55 Resp 18 10/22/18 11:55 BP 112/46 L 10/22/18 11:55 Pulse Ox 95 10/22/18 11:55 Physical Exam: The patient is alert and oriented. Mood and affect appeared normal. He answered all questions appropriately. HEENT: Pupils are equal and reactive to light and accommodation. Extraocular movements are intact. The sclerae are anicteric. Neuro: Cranial nerves intact Neck: Patient's neck is supple. He has palpable carotid pulses bilaterally without bruits on auscultation. Perhaps 1-2 cm jugular venous distention. The thyroid is not enlarged. Lungs: Poor air movement on the left. No expiratory wheezing. Normal respiratory effort. Cardiac: Heart demonstrates a regular rate and rhythm with occasional ectopy. Normal S1 and S2. No murmurs on examination. Pulses: The patient has palpable radial pulses bilaterally that are equal in intensity Extremities: There was no evidence of hypoperfusion. There is no cyanosis or clubbing. There is no edema. Skin: I did not appreciate any rashes on examination today. Results & Data Laboratory Results Abnormal Lab Results 10/21/18 10/21/18 10/21/18 11:59 16:20 20:02 WBC 19.42 H RBC 2.93 L Hgb 8.0 L Hct 25.4 L MCV 86.7 MCH 27.3 MCHC 31.5 L RDW Std Deviation 60.8 H RDW Coeff of Molly 21.6 H Plt Count 158 MPV 11.1 H Immature Gran % (Auto) Neut % (Auto) Lymph % (Auto) [place] % (Auto) Eos % (Auto) Baso % (Auto) Immature Gran # (Auto) Neut # (Auto) Lymph # (Auto) [place] # (Auto) Eos # (Auto) Baso # (Auto) Absolute Nucleated RBC 0.96 H Nucleated RBC % (auto) 4.9 Platelet Estimate Anisocytosis PT INR Sodium Potassium Chloride Carbon Dioxide Anion Gap BUN Creatinine Est Cr Clr Drug Dosing Est GFR ( Amer) Est GFR (Non-Af Amer) BUN/Creatinine Ratio Glucose POC Glucose 179 H 128 H Calcium Phosphorus Magnesium Total Bilirubin Direct Bilirubin AST ALT Alkaline Phosphatase Total Protein Albumin 10/22/18 10/22/18 10/22/18 05:01 05:01 05:01 WBC 18.84 H RBC 2.89 L Hgb 7.8 L Hct 24.8 L MCV 85.8 MCH 27.0 MCHC 31.5 L RDW Std Deviation 59.4 H RDW Coeff of Molly 22.2 H Plt Count 141 MPV 11.5 H Immature Gran % (Auto) 7.7 Neut % (Auto) 78.0 Lymph % (Auto) 3.8 [place] % (Auto) 9.3 Eos % (Auto) 0.3 Baso % (Auto) 0.9 Immature Gran # (Auto) 1.45 H Neut # (Auto) 14.70 H Lymph # (Auto) 0.71 L [place] # (Auto) 1.76 H Eos # (Auto) 0.05 Baso # (Auto) 0.17 Absolute Nucleated RBC 0.82 H Nucleated RBC % (auto) 4.3 Platelet Estimate Normal Anisocytosis Present PT 14.7 H INR 1.5 H Sodium 138 Potassium 3.8 Chloride 105 Carbon Dioxide 25 Anion Gap 8.0 BUN 67 H Creatinine 1.58 H Est Cr Clr Drug Dosing 31.9 Est GFR ( Amer) 49.2 Est GFR (Non-Af Amer) 42.5 BUN/Creatinine Ratio 42.2 H Glucose 103 H POC Glucose Calcium 8.3 L Phosphorus 2.4 L Magnesium 2.2 Total Bilirubin 1.1 H Direct Bilirubin 0.6 H AST 334 H ALT 633 H Alkaline Phosphatase 760 H Total Protein 6.1 L Albumin 2.4 L 10/22/18 10/22/18 07:21 11:23 WBC RBC Hgb Hct MCV MCH MCHC RDW Std Deviation RDW Coeff of Molly Plt Count MPV Immature Gran % (Auto) Neut % (Auto) Lymph % (Auto) [place] % (Auto) Eos % (Auto) Baso % (Auto) Immature Gran # (Auto) Neut # (Auto) Lymph # (Auto) [place] # (Auto) Eos # (Auto) Baso # (Auto) Absolute Nucleated RBC Nucleated RBC % (auto) Platelet Estimate Anisocytosis PT INR Sodium Potassium Chloride Carbon Dioxide Anion Gap BUN Creatinine Est Cr Clr Drug Dosing Est GFR ( Amer) Est GFR (Non-Af Amer) BUN/Creatinine Ratio Glucose POC Glucose 119 H 198 H Calcium Phosphorus Magnesium Total Bilirubin Direct Bilirubin AST ALT Alkaline Phosphatase Total Protein Albumin ECG Additional Comments: A review of his telemetry reveals occasional PVCs and periods of bigeminy. No other significant arrhythmia. _ (1) ST elevation (STEMI) myocardial infarction Involved coronary artery: unspecified coronary artery Qualified Code(s): I21.3 - ST elevation (STEMI) myocardial infarction of unspecified site (2) Dyspnea Dyspnea type: unspecified Qualified Code(s): R06.00 - Dyspnea, unspecified
--- NOTE | 2018-10-22 13:22 | Pharmacy Report ---
PHA: Glycemic Control AP - Date of Service October 22, 2018 - Assessment & Plan Outpatient Anti-diabetic Regimen: * Glipizide 5 mg po daily * Metformin 1000 mg po BID * A1c = 6.7% on 10/15/18 Risk Factors for Insulin Resistance: * Steroids: prednisone taper qAM - 40 mg 10/19-10/20, 30 mg 10/21, 20 mg today and ongoing * Infection: HAP * Diet: T2DM, minced ASSESSMENT: * Mr. Aden is a 72 y/o M known to our service with well controlled T2DM on oral agents alone admitted 10/14 with respiratory failure 2nd HAP * Previous admissions suggest that patient's BSGs are labile with steroid involvement * Anticipate significant impact with prednisone taper * Patient has known history of severe AM hypoglycemia while on prednisone po daily * Cannot tolerate Lantus (effects of Lantus persist overnight and effects of prednisone administered in AM dissipate overnight) * Switched on NPH on 10/19. Will continue to taper dose of NPH with steroid taper. AM fasting today 103 mg/dL after 8 units NPH yesterday * Novolog to be loosened at dinner today 2nd effects of prednisone dissipating and dose this AM tapered PLAN * Insulin NPH qAM based on BSG * 4 units for BSG less than 100 mg/dL * 6 units for BSG 100 mg/dL or greater * Novolog ACHS * Goal range: 120-160 mg/dL * Correction factor: 30 mg/dL/unit * Carb ratio: 10 g CHO/unit Pharmacy will continue to monitor patient daily and write orders per [facility] inpatient glycemic control protocol. Thanks. * Please note that the plan above was derived based on current level of insulin resistance and hospital stress. These recommendations are appropriate for inpatient admission only. Plan of care upon discharge will need to be reassessed to avoid potential outpatient hypo/hyperglycemia.
--- NOTE | 2018-10-22 15:44 | Hospitalist Progress Note ---
Date of Service October 22, 2018 Assessment & Plan (1) ST elevation (STEMI) myocardial infarction: Upon admission was suspected to be having acute anterior wall STEMI. 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 Had a chronically occluded diagonal branch that potentially his collaterals were not getting good blood flow during his period of hypoxic failure and intubation? Positive troponin uncertain but likely due to demand ischemia in setting of acute resp failure, acute/chronic CHF, etc. cont asa for CAD. resume BB when BP will allow but remains on hold for now. Repeat ECG during significant respiratory distress on 10/[address] elevation Troponin repeated on 10/20 and was 1.9 and then trended down to 1.6 which are both less than previous (2) Acute respiratory failure with hypoxia and hypercapnia: s/p intubation on hospital day #1 requiring ICU stay. Extubated the following day weaned to room air now, POx remaining inthe 90s continue to treat all pulmonary/cardiac issues. Remains in mild respiratory distress secondary to acute CHF as below (3) ATN (acute tubular necrosis): creatinine peaked to 1.8 and is now down and fairly stable at 1.58 after resolution of hypotension on 10/18 and with IV diuresis u/a with granular and hyaline casts. Suspect cardiorenal syndrome suspect the ATN is cardiorenal in origin (has had episodes of hypotension). kidney injury from contrast from his cath or his CTA chest also possible but less likely, also could be from antibiotics/IV voriconazole. sepsis-induced ATN also possible. There is no urinary retention to suggest obstruction. He is making adequate urine, electrolytes acceptable With volume overload, diuresing -Follow BMP -Consider nephrology consultation if worsens again (4) Lactic acidosis: Secondary to hypotension and his severe cardiac dysfunction/LV dysfunction. Cannot rule out element of sepsis/severe sepsis but less likely. Lactate was up to 5.0 on 10/18, now down to 1.8 by the following day I spoke with cardiology, Dr. Chaudhry, and we discussed the case in detail. For suspected cardiogenic shock, his blood pressures are improved, no need for dopamine at this point. I am still considering blood transfusion but the last time he had 1 unit of blood, he went into flash pulmonary edema requiring intubation in 05/2018. Hemoglobin is down to 7.8 today-see plan as below (5) Hypotension: He had transient hypotension on 10/18 that responded to very small (250cc) fluid bolus. Overall blood pressures are low due to poor cardiac output but have remained fairly stable now for several days Recent cortisol level was >50. Beta veronica continues to be held due to the degree of hypotension. Hypotension is cardiac in origin due to severe LV dysfunction (EF was 15-20% earlier this year; could easily be much worse than this). Sepsis-induced hypotension is possible but felt to be unlikely. Continue to watch closely for hypotension in setting of diuresis with lasix and start dopamine as needed (6) Acute on chronic systolic (congestive) heart failure: With worsening dyspnea and PND on 10/20, with weight gain He does appear volume overloaded on examination with JVD Also with ATN, lactic acidosis, etc is due to his severe systolic CHF Anemia is either a contributing factor or is a marker as a poor prognostic indicator for poor outcome Holding beta veronica due to hypotension. Cardiology is following and appreciate recommendations Overall, very poor prognosis-discussed with the patient and his family at bedside on multiple occasions Tolerating lasix -Follow I's and O's, daily weights, low-sodium diet -started lasix 40mg po bid today--> is diuresing -follow BP as above and start dopamine and transfer to ICU if decompensates -with anemia in the setting of ongoing demand ischemia and decompensated HF, considering PRBC transfusion of 1 unit if Hgb<7.5 -if have to transfuse, will give 1 unit PRBCs very slowly over 4 hours with extra Lasix (7) Multifocal pneumonia: Due to borderline hypothermia, elevated procalcitonin, hypotension, etc - - the following were done on 10/18: 1. broadened abx (changed cefepime and doxycycline to zosyn & levaquin). 2. added daptomycin to cover his port - use empirically for 48 hours only-dcd after 2 days as MRSA swab negative and cultures negative 3. repeat blood cx's were obtained-no growth to date 4. serial lactates-now negative, no need to repeat again 5. of note - urine cx from 10/17/18 was negative 6. 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 repeat bronch THIS admission with repeat fungal cultures, AFB, cytologies, etc. thus far all cx's negative. path from the [facility] negative for malignant cells but this certainly does not rule out a cancer recurrence -continue to hold the voriconazole for now (9) Cavitary lesion of lung: left upper lobe. this is in the location of his original lung cancer from the past. the degree of cavitation in the [facility] has increased over the last year. there has been suspicion of fungal infection in his cavity. see discussion above in "aspergillus". cannot rule out recurrent cancer despite negative path. certainly with his weight loss need to be concerned about recurrent small cell lung ca. (10) Small cell lung cancer: initial diagnosis in 2015, s/p resection around that time, of [facility]. now with concerns of recurrent cancer. see discussion above. (11) CAD (coronary artery disease): see discussion above in "STEMI." troponin likely remaining elevated due to acute tubular necrosis, ongoing cardiac issues, etc. ECG on 10/20 with no evidence of acute ischemia Troponin trending downward as above (12) PVD (peripheral vascular disease): patient denies claudication symptoms of legs but he clearly has PAD given his poor pulses on exam. ideally should be on statin but in light of voriconazole use and elevated LFTs, will defer for now. cont asa. (13) HTN (hypertension): now with hypotension as above holding any BP meds (14) BPH (benign prostatic hyperplasia): cont finasteride poor candidate for alpha veronica due to low BPs he has urinary frequency; PVRs are 0. UA not consistent with infection, urine culture no growth on 10/17 I discontinued the oxybutynin in case causing urinary retention (when on it, was voiding small volumes)-now resolved (15) HLD (hyperlipidemia): Statin therapy being held due to elevated LFTs and being on voriconazole which is also now held (16) Anemia: suspect multifactorial including concern about lung ca recurrence, fungal infection, other issues. ferritin level is elevated c/w acute phase reactant. follow cbc's. Hemoglobin down to 7.8 from 8.0, no evidence of bleeding b12 level was technically normal but in the 300s. -continue FeSO4 325mg po bid -continue to supplement the B12 to be complete. -Considering transfusion as above, noting that he went into flash pulmonary edema the last time he got 1 unit of PRBCs and required intubation in 05/2018- transfuse for Hgb<7.5 -hold heparin SQ in case of occult bleeding (17) CKD stage 3 due to type 2 diabetes mellitus: Cr 1.1 to 1.3 at baseline now with GHANSHYAM/ARF, likely ATN which is improving (18) COPD (chronic obstructive pulmonary disease): with exacerbation. no wheezing on exam anymore. stopped solumedrol. -Continue prednisone 20 mg daily and taper down by 10mg q2 days cont nebs. cont supportive care. (19) Severe protein-calorie malnutrition: 8kg weight loss over the last 6 months. added boost and MVI. (20) DM II (diabetes mellitus, type II), controlled: With hypoglycemia which is now improved with lower doses of insulin -Pharmacy is managing his insulin (21) Physical deconditioning: significant. unable to do much activity because of cardiopulmonary disease. has severe BEE. PT, OT - if able. (22) Bradycardia: Bradycardia down to the 40s at times with getting up for urination-has not had that now in several days as he is now been off metoprolol -Follow on telemetry (23) Elevated LFTs: LFTs were into the 700s-800s, likely shock liver due to hypotension, as well as some aspect of hepatic congestion due to CHF Continue to improve today likely secondary to diuresis -Attempts to manage CHF as above -Follow LFTs -Continue holding voriconazole and statin as above (24) Coagulopathy: INR 1.5 today, not on coumadin, likely due to liver dysfunction from shock liver/hepatic congestion, as well as poor nutritional status -supplement with Vit K 2.5mg po x 1 today (25) DVT prophylaxis: Hold heparin 5000 BID for worsening anemia SCDs only Disposition-remain on telemetry. Discussed with palliative care who saw him on 10/19. Ultimately he decided to remain a full code. We did discuss at length his very poor prognosis and family is aware. Full code Subjective Pt reports he is still very SOB and anxious about his SOB. His biggest complaint is that of not being able to sleep. He thinks he is only sleeping 2 hours per night due to SOB, anxiety, and interruptions for vitals, etc. Denies chest pain, no bleeding from anywhere. He did ambulate out of his room to the hallway and back today with PT and felt very fatigued. Tele with NSR, rate 90s, PACs, PVCs, bigem, couplets Review of Systems All systems reviewed & are unremarkable except as noted in HPI & below Physical Exam 2 Vital Signs (Past 24 Hours): Last Vital Signs Temp 36.5 C 10/22/18 15:00 Pulse 84 10/22/18 15:00 Resp 16 10/22/18 15:00 BP 109/79 10/22/18 15:00 Pulse Ox 92 10/22/18 15:00 Constitutional: + ill appearing and + thin (Sitting up in bed, appears anxious and much older than given age) Eyes: PERRL, conjunctivae normal, anicteric sclerae ENMT: Ears: no hearing impairment Neck: trachea midline, no thyromegaly Respiratory: + respiratory distress (mild tachypnea with minimal movement) Auscultation: no rales, no rhonchi and no wheezes Cardiovascular: RRR, no murmur, no edema Gastrointestinal (Abdomen): normal bowel sounds, soft, nontender, no hepatosplenomegaly Musculoskeletal: Extremities: extremities normal to inspection; no cyanosis and no clubbing Skin: no rashes, warm and dry Neurologic: moves all extremities and awake; no focal motor deficits Psychiatric: Orientation: oriented to person and oriented to place Results & Data Laboratory Results 10/22/18 10/22/18 10/22/18 Range/Units 20:22 16:12 11:23 WBC (4.8-10.8) K/uL RBC (4.7-6.1) M/uL Hgb (14.0-18.0) g/dL Hct (42-52) % MCV (80-100) fL MCH (25-34) pg MCHC (32-36) g/dL RDW Std Deviation (36.4-46.3) fL RDW Coeff of Molly (11.5-14.5) % Plt Count (130-400) K/uL MPV (7.4-10.4) fL Immature Gran % (Auto) % Neut % (Auto) % Lymph % (Auto) % [place] % (Auto) % Eos % (Auto) % Baso % (Auto) % Immature Gran # (Auto) (0.00-0.02) K/uL Neut # (Auto) (1.4-6.5) K/uL Lymph # (Auto) (1.2-3.4) K/uL [place] # (Auto) (0.11-0.59) K/uL Eos # (Auto) (0-0.5) K/uL Baso # (Auto) (0-0.2) K/uL Absolute Nucleated RBC (0-0) K/uL Nucleated RBC % (auto) % Platelet Estimate (Normal) Anisocytosis PT (9.0-12.0) Seconds INR (0.9-1.1) Sodium (136-145) mmol/L Potassium (3.5-5.1) mmol/L Chloride (98-107) mmol/L Carbon Dioxide (21-32) mmol/L Anion Gap (3-11) BUN (7-18) mg/dl Creatinine (0.6-1.4) mg/dl Est Cr Clr Drug Dosing ml/min Est GFR ( Amer) Est GFR (Non-Af Amer) BUN/Creatinine Ratio (10-20) Glucose (70-99) mg/dl POC Glucose 240 H 198 H 198 H (70-99) Calcium (8.5-10.1) mg/dl Phosphorus (2.5-4.9) mg/dl Magnesium (1.8-2.4) mg/dl Total Bilirubin (0.2-1) mg/dl Direct Bilirubin (0-0.2) mg/dl AST (15-37) U/L ALT (12-78) U/L Alkaline Phosphatase (45-117) U/L Total Protein (6.4-8.2) gm/dl Albumin (3.4-5.0) gm/dl 10/22/18 10/22/18 10/22/18 Range/Units 07:21 05:01 05:01 WBC (4.8-10.8) K/uL RBC (4.7-6.1) M/uL Hgb (14.0-18.0) g/dL Hct (42-52) % MCV (80-100) fL MCH (25-34) pg MCHC (32-36) g/dL RDW Std Deviation (36.4-46.3) fL RDW Coeff of Molly (11.5-14.5) % Plt Count (130-400) K/uL MPV (7.4-10.4) fL Immature Gran % (Auto) % Neut % (Auto) % Lymph % (Auto) % [place] % (Auto) % Eos % (Auto) % Baso % (Auto) % Immature Gran # (Auto) (0.00-0.02) K/uL Neut # (Auto) (1.4-6.5) K/uL Lymph # (Auto) (1.2-3.4) K/uL [place] # (Auto) (0.11-0.59) K/uL Eos # (Auto) (0-0.5) K/uL Baso # (Auto) (0-0.2) K/uL Absolute Nucleated RBC (0-0) K/uL Nucleated RBC % (auto) % Platelet Estimate (Normal) Anisocytosis PT 14.7 H (9.0-12.0) Seconds INR 1.5 H (0.9-1.1) Sodium 138 (136-145) mmol/L Potassium 3.8 (3.5-5.1) mmol/L Chloride 105 (98-107) mmol/L Carbon Dioxide 25 (21-32) mmol/L Anion Gap 8.0 (3-11) BUN 67 H (7-18) mg/dl Creatinine 1.58 H (0.6-1.4) mg/dl Est Cr Clr Drug Dosing 31.9 ml/min Est GFR ( Amer) 49.2 Est GFR (Non-Af Amer) 42.5 BUN/Creatinine Ratio 42.2 H (10-20) Glucose 103 H (70-99) mg/dl POC Glucose 119 H (70-99) Calcium 8.3 L (8.5-10.1) mg/dl Phosphorus 2.4 L (2.5-4.9) mg/dl Magnesium 2.2 (1.8-2.4) mg/dl Total Bilirubin 1.1 H (0.2-1) mg/dl Direct Bilirubin 0.6 H (0-0.2) mg/dl AST 334 H (15-37) U/L ALT 633 H (12-78) U/L Alkaline Phosphatase 760 H (45-117) U/L Total Protein 6.1 L (6.4-8.2) gm/dl Albumin 2.4 L (3.4-5.0) gm/dl 10/22/18 Range/Units 05:01 WBC 18.84 H (4.8-10.8) K/uL RBC 2.89 L (4.7-6.1) M/uL Hgb 7.8 L (14.0-18.0) g/dL Hct 24.8 L (42-52) % MCV 85.8 (80-100) fL MCH 27.0 (25-34) pg MCHC 31.5 L (32-36) g/dL RDW Std Deviation 59.4 H (36.4-46.3) fL RDW Coeff of Molly 22.2 H (11.5-14.5) % Plt Count 141 (130-400) K/uL MPV 11.5 H (7.4-10.4) fL Immature Gran % (Auto) 7.7 % Neut % (Auto) 78.0 % Lymph % (Auto) 3.8 % [place] % (Auto) 9.3 % Eos % (Auto) 0.3 % Baso % (Auto) 0.9 % Immature Gran # (Auto) 1.45 H (0.00-0.02) K/uL Neut # (Auto) 14.70 H (1.4-6.5) K/uL Lymph # (Auto) 0.71 L (1.2-3.4) K/uL [place] # (Auto) 1.76 H (0.11-0.59) K/uL Eos # (Auto) 0.05 (0-0.5) K/uL Baso # (Auto) 0.17 (0-0.2) K/uL Absolute Nucleated RBC 0.82 H (0-0) K/uL Nucleated RBC % (auto) 4.3 % Platelet Estimate Normal (Normal) Anisocytosis Present PT (9.0-12.0) Seconds INR (0.9-1.1) Sodium (136-145) mmol/L Potassium (3.5-5.1) mmol/L Chloride (98-107) mmol/L Carbon Dioxide (21-32) mmol/L Anion Gap (3-11) BUN (7-18) mg/dl Creatinine (0.6-1.4) mg/dl Est Cr Clr Drug Dosing ml/min Est GFR ( Amer) Est GFR (Non-Af Amer) BUN/Creatinine Ratio (10-20) Glucose (70-99) mg/dl POC Glucose (70-99) Calcium (8.5-10.1) mg/dl Phosphorus (2.5-4.9) mg/dl Magnesium (1.8-2.4) mg/dl Total Bilirubin (0.2-1) mg/dl Direct Bilirubin (0-0.2) mg/dl AST (15-37) U/L ALT (12-78) U/L Alkaline Phosphatase (45-117) U/L Total Protein (6.4-8.2) gm/dl Albumin (3.4-5.0) gm/dl _ (1) BPH (benign prostatic hyperplasia) Lower urinary tract symptom detail: Lower urinary tract symptom presence: symptoms absent Qualified Code(s): N40.0 - Benign prostatic hyperplasia without lower urinary tract symptoms (2) CAD (coronary artery disease) Associated angina: without angina Coronary Disease-Associated Artery/Lesion type: [place] artery [place] vs. transplanted heart: [place] heart Qualified Code (s): I25.10 - Atherosclerotic heart disease of [place] coronary artery without angina pectoris (3) Anemia Anemia type: other cause Bone marrow failure anemia type: Chronic kidney disease stage: Folate deficiency anemia type: Hemolytic anemia type: Iron deficiency anemia type: Other causes of anemia: other cause, not classified Vitamin B12 deficiency anemia type: Qualified Code(s): D64.89 - Other specified anemias (4) HLD (hyperlipidemia) Hyperlipidemia type: unspecified Qualified Code(s): E78.5 - Hyperlipidemia, unspecified (5) ST elevation (STEMI) myocardial infarction Involved coronary artery: unspecified coronary artery Qualified Code(s): I21.3 - ST elevation (STEMI) myocardial infarction of unspecified site (6) DM II (diabetes mellitus, type II), controlled Chronic kidney disease stage: stage 3 (moderate) Diabetes mellitus complication detail: with chronic kidney disease Diabetes mellitus complication status: with kidney complications Diabetes mellitus terminal gauger insulin use: without halfway use Diabetes mellitus macular edema: Diabetic retinopathy severity: Laterality: Proliferative retinopathy type: Qualified Code(s): E11.22 - Type 2 diabetes mellitus with diabetic chronic kidney disease; N18.3 - Chronic kidney disease, stage 3 (moderate) (7) COPD (chronic obstructive pulmonary disease) COPD type: chronic bronchitis Chronic bronchitis type: unspecified Emphysema type: Qualified Code(s): J42 - Unspecified chronic bronchitis (8) HTN (hypertension) Hypertension type: essential hypertension Qualified Code(s): I10 - Essential (primary) hypertension (9) Hypotension Hypotension type: other hypotension type Trimester: Qualified Code(s): I95.89 - Other hypotension
[2018-10-22] MEDS: FUROSEMIDE 40 MG TAB PO SCH (16:52)
[2018-10-23] MEDS: PIPERACILLIN/TAZOBACTAM 3.375 GM in DEXTROSE 5% 100 ML IV SCH ×3 (00:02→18:13)
[2018-10-23] MEDS: LORazepam 0.5 MG TAB PO PRN ×2 (00:09→23:00)
[2018-10-23] MEDS: HEPARIN 100 UNIT/ML 5ML FLUSH FLUSH SCH ×2 (04:05→22:23)
[2018-10-23 07:04] LABS: Hematocrit (blood only) 25.7 % (42-52); Hemoglobin 8.2 g/dL (14.0-18.0); Mean Corpuscular Hgb Conc 31.9 g/dL (32-36); Mean Corpuscular Volume 86.5 fL (80-100); Mean Platelet Volume 11.4 fL (7.4-10.4); Nucleated RBC # (auto) 0.61 K/uL (0-0); Nucleated RBC % (auto) 3.7 %; Platelet Count 142 K/uL (130-400); RDW Standard Deviation 61.3 fL (36.4-46.3); Red Blood Count 2.97 M/uL (4.7-6.1); White Blood Count 16.44 K/uL (4.8-10.8)
[2018-10-23 07:16] LABS: INR 1.3 (0.9-1.1); Prothrombin Time 13.4 Seconds (9.0-12.0)
[2018-10-23 07:34] LABS: Albumin Level 2.4 gm/dl (3.4-5.0); BUN Creatinine Ratio 37.7 (10-20); Bilirubin Direct 0.6 mg/dl (0-0.2); Calcium 8.2 mg/dl (8.5-10.1); Creatinine Clr Calc Pharmacy 31.5 ml/min; Est GFR (African American) 49.2; Est GFR (Non-African American) 42.5; Potassium 3.7 mmol/L (3.5-5.1)
[2018-10-23 07:37] LABS: Bilirubin,Total 1.1 mg/dl (0.2-1); Phosphorus 2.3 mg/dl (2.5-4.9); Total Protein 6.3 gm/dl (6.4-8.2)
[2018-10-23 07:55] LABS: Anisocytosis Present; Basophils # (auto) 0.15 K/uL (0-0.2); Basophils % (auto) 0.9 %; Eosinophils # (auto) 0.06 K/uL (0-0.5); Eosinophils % (auto) 0.4 %; Immature Granulocytes % (auto) 7.9 %; Lymphocytes % (auto) 4.9 %; Monocytes % (auto) 10.3 %; Neutrophils # (auto) 12.43 K/uL (1.4-6.5); Neutrophils % (auto) 75.6 %; Polychromasia 1+
[2018-10-23] MEDS ORDERED: POT PHOSPHATE MONOBASIC W/ SOD TAB PO ONE (08:24)
[2018-10-23] MEDS: ASPIRIN 81 MG ECTAB PO SCH (09:03)
[2018-10-23] MEDS: MAGNESIUM OXIDE 400 MG TAB PO SCH (09:03)
[2018-10-23] MEDS: CYANOCOBALAMIN 500 MCG TABLET (VITAMIN B-12) PO SCH (09:03)
[2018-10-23] MEDS: FINASTERIDE 5 MG TAB PO SCH (09:03)
[2018-10-23] MEDS: FERROUS SULFATE 325 MG TAB PO SCH ×2 (09:03→22:17)
[2018-10-23] MEDS: PANTOprazole 40 MG TAB PO SCH (09:04)
[2018-10-23] MEDS: predniSONE 10 MG TABLET PO SCH (09:04)
[2018-10-23] MEDS: POTASSIUM CHLORIDE 20 MEQ TABCR PO SCH ×2 (09:04→22:17)
[2018-10-23] MEDS: INSULIN HUMAN NPH SC SCH (09:04)
[2018-10-23] MEDS: CEROVITE ADV FORMULA TAB PO SCH (09:04)
[2018-10-23] MEDS: INSULIN ASPART 100 UNITS/ML 3 ML PEN SC SCH ×4 (09:05→22:21)
[2018-10-23] MEDS: FUROSEMIDE 40 MG TAB PO SCH ×2 (09:11→18:17)
--- NOTE | 2018-10-23 09:28 | Cardiology Progress Note ---
Date of Service October 23, 2018 Assessment & Plan (1) Ischemic cardiomyopathy: Clinically he is improving. He did affect a good diuresis yesterday with b.i.d. dosing of Lasix. His renal function appears to be stable. It would seem reasonable to continue him on diuretics currently. Will monitor his functional status and symptoms. A certain point will need to decide if he requires diuretics on a daily basis as an outpatient. (2) ST elevation (STEMI) myocardial infarction: Likely secondary to a chronically occluded diagonal branch. He does carry history of several interventions including PCI to the RCA x2 in February 2006, PCI to the LCX and OM in December 2007, and PCI to the D1 in November 2007. (3) Dyspnea: Much improved. On room air currently. He still quite weak but did ambulate yesterday. (4) Bradycardia: Resolved. Occasional PVCs, but no other significant arrhythmias. Subjective This morning the patient claims to be feeling well. He states that he had a restless evening and was even delirious at times but did manage to get some sleep. This morning states his breathing is improved from admission. He reportedly walked around the [place] somewhat yesterday. He did have some dyspnea but no dizziness or unsteadiness on his feet. Appetite remains good. Physical Exam 2 Vital Signs (Past 24 Hours): Last Vital Signs Temp 36.3 C L 10/23/18 06:53 Pulse 98 H 10/23/18 06:53 Resp 18 10/23/18 06:53 BP 105/62 10/23/18 06:53 Pulse Ox 91 10/23/18 06:53 Physical Exam: The patient is alert and oriented. Mood and affect appeared normal. He answered all questions appropriately. HEENT: Pupils are equal and reactive to light and accommodation. Extraocular movements are intact. The sclerae are anicteric. Neuro: Cranial nerves intact Neck: Patient's neck is supple. Perhaps 1 centimeter JVD Lungs: Apices are clear. Occasional crackle at the bases bilaterally. No expiratory wheezing. chi. Cardiac: Heart demonstrates a regular rate and rhythm with occasional ectopy. Normal S1 and S2. Pulses: The patient has palpable radial pulses bilaterally that are equal in intensity Extremities: There was no evidence of hypoperfusion. There is no cyanosis or clubbing. There is no edema. Skin: I did not appreciate any rashes on examination today. Results & Data Laboratory Results Abnormal Lab Results 10/22/18 10/22/18 10/22/18 11:23 16:12 20:22 WBC RBC Hgb Hct MCV MCH MCHC RDW Std Deviation RDW Coeff of Molly Plt Count MPV Immature Gran % (Auto) Neut % (Auto) Lymph % (Auto) [place] % (Auto) Eos % (Auto) Baso % (Auto) Immature Gran # (Auto) Neut # (Auto) Lymph # (Auto) [place] # (Auto) Eos # (Auto) Baso # (Auto) Absolute Nucleated RBC Nucleated RBC % (auto) Polychromasia Anisocytosis PT INR Sodium Potassium Chloride Carbon Dioxide Anion Gap BUN Creatinine Est Cr Clr Drug Dosing Est GFR ( Amer) Est GFR (Non-Af Amer) BUN/Creatinine Ratio Glucose POC Glucose 198 H 198 H 240 H Calcium Phosphorus Magnesium Total Bilirubin Direct Bilirubin AST ALT Alkaline Phosphatase Total Protein Albumin 10/23/18 10/23/18 10/23/18 06:43 06:43 06:43 WBC 16.44 H RBC 2.97 L Hgb 8.2 L Hct 25.7 L MCV 86.5 MCH 27.6 MCHC 31.9 L RDW Std Deviation 61.3 H RDW Coeff of Molly 23.0 H Plt Count 142 MPV 11.4 H Immature Gran % (Auto) 7.9 Neut % (Auto) 75.6 Lymph % (Auto) 4.9 [place] % (Auto) 10.3 Eos % (Auto) 0.4 Baso % (Auto) 0.9 Immature Gran # (Auto) 1.30 H Neut # (Auto) 12.43 H Lymph # (Auto) 0.80 L [place] # (Auto) 1.70 H Eos # (Auto) 0.06 Baso # (Auto) 0.15 Absolute Nucleated RBC 0.61 H Nucleated RBC % (auto) 3.7 Polychromasia 1+ Anisocytosis Present PT 13.4 H INR 1.3 H Sodium 137 Potassium 3.7 Chloride 104 Carbon Dioxide 26 Anion Gap 7.0 BUN 60 H Creatinine 1.58 H Est Cr Clr Drug Dosing 31.5 Est GFR ( Amer) 49.2 Est GFR (Non-Af Amer) 42.5 BUN/Creatinine Ratio 37.7 H Glucose 134 H POC Glucose Calcium 8.2 L Phosphorus 2.3 L Magnesium 2.0 Total Bilirubin 1.1 H Direct Bilirubin 0.6 H AST 263 H ALT 603 H Alkaline Phosphatase 816 H Total Protein 6.3 L Albumin 2.4 L 10/23/18 07:33 WBC RBC Hgb Hct MCV MCH MCHC RDW Std Deviation RDW Coeff of Molly Plt Count MPV Immature Gran % (Auto) Neut % (Auto) Lymph % (Auto) [place] % (Auto) Eos % (Auto) Baso % (Auto) Immature Gran # (Auto) Neut # (Auto) Lymph # (Auto) [place] # (Auto) Eos # (Auto) Baso # (Auto) Absolute Nucleated RBC Nucleated RBC % (auto) Polychromasia Anisocytosis PT INR Sodium Potassium Chloride Carbon Dioxide Anion Gap BUN Creatinine Est Cr Clr Drug Dosing Est GFR ( Amer) Est GFR (Non-Af Amer) BUN/Creatinine Ratio Glucose POC Glucose 143 H Calcium Phosphorus Magnesium Total Bilirubin Direct Bilirubin AST ALT Alkaline Phosphatase Total Protein Albumin ECG Additional Comments: Sinus rhythm with occasional ventricular ectopy _ (1) ST elevation (STEMI) myocardial infarction Involved coronary artery: unspecified coronary artery Qualified Code(s): I21.3 - ST elevation (STEMI) myocardial infarction of unspecified site (2) Dyspnea Dyspnea type: unspecified Qualified Code(s): R06.00 - Dyspnea, unspecified
--- NOTE | 2018-10-23 09:54 | Ultrasound Report ---
ABDOMINAL ULTRASOUND, RIGHT UPPER QUADRANT HISTORY: elevate LFTs. COMPARISON: Abdominal ultrasound 03/13/2018. FINDINGS: Pancreas: The pancreatic tail is obscured by overlying bowel gas. The remaining portions of the pancr eas are within normal limits. Liver: The liver is normal in size measuring 16 cm in length. There are few small scattered cysts kallie suring up to 1 cm. Gallbladder: The gallbladder is contracted which results in suboptimal evaluation. No gallbladder wal l thickening. No definite gallstones. There may be trace pericholecystic fluid. The technologist repo rted a negative sonographic Hernandez's sign. CBD: 6 mm. Right kidney: No hydronephrosis. There is a 1.8 cm exophytic cyst within the upper pole. This is subo ptimally evaluated due to the poor acoustic penetration. IMPRESSION: 1. Contracted gallbladder resulting in suboptimal evaluation. No definite gallbladder wall thickening or gallstones. There may be trace pericholecystic fluid. However, the technologist reported a negati ve sonographic Hernandez's sign. 2. Hepatic and right renal cysts. Electronically signed by: Guanaco Thompson M.D. 10/23/2018 9:53 AM
--- NOTE | 2018-10-23 19:09 | Hospitalist Progress Note ---
Date of Service October 23, 2018 Assessment & Plan (1) ST elevation (STEMI) myocardial infarction: Upon admission was suspected to be having acute anterior wall STEMI. 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 Had a chronically occluded diagonal branch that potentially his collaterals were not getting good blood flow during his period of hypoxic failure and intubation? Positive troponin uncertain but likely due to demand ischemia in setting of acute resp failure, acute/chronic CHF, etc. cont asa for CAD. resume BB when BP will allow but remains on hold for now. Repeat ECG during significant respiratory distress on 10/[address] elevation Troponin repeated on 10/20 and was 1.9 and then trended down to 1.6 which are both less than previous (2) Acute respiratory failure with hypoxia and hypercapnia: s/p intubation on hospital day #1 requiring ICU stay. Extubated the following day weaned to room air now, POx remaining in the 90s continue to treat all pulmonary/cardiac issues. (3) ATN (acute tubular necrosis): creatinine peaked to 1.8 and is now down and fairly stable at 1.5 after resolution of hypotension on 10/18 and with IV diuresis u/a with granular and hyaline casts. Suspect cardiorenal syndrome suspect the ATN is cardiorenal in origin (has had episodes of hypotension). kidney injury from contrast from his cath or his CTA chest also possible but less likely, also could be from antibiotics/IV voriconazole. sepsis-induced ATN also possible. There is no urinary retention to suggest obstruction. He is making adequate urine, electrolytes acceptable With volume overload, diuresing -Follow BMP -Consider nephrology consultation if worsens again (4) Lactic acidosis: Secondary to hypotension and his severe cardiac dysfunction/LV dysfunction. Cannot rule out element of sepsis/severe sepsis but less likely. Lactate was up to 5.0 on 10/18, now down to 1.8 by the following day For suspected cardiogenic shock, his blood pressures are improved, no need for dopamine at this point. I am still considering blood transfusion but the last time he had 1 unit of blood, he went into flash pulmonary edema requiring intubation in 05/2018. Hemoglobin is back up to 8.2 today-see plan as below (5) Hypotension: He had transient hypotension on 10/18 that responded to very small (250cc) fluid bolus. Overall blood pressures are low due to poor cardiac output but have remained fairly stable now for several days Recent cortisol level was >50. Beta veronica continues to be held due to the degree of hypotension. Hypotension is cardiac in origin due to severe LV dysfunction (EF was 15-20% earlier this year; could easily be much worse than this). Sepsis-induced hypotension is possible but felt to be unlikely. Continue to watch closely for hypotension in setting of diuresis with lasix and start dopamine as needed (6) Acute on chronic systolic (congestive) heart failure: With worsening dyspnea and PND on 10/20, with weight gain He does appear volume overloaded on examination with JVD although this is improving today with a loss of 3.7 kg over the last 3 days Also with ATN, lactic acidosis, etc is due to his severe systolic CHF Anemia is either a contributing factor or is a marker as a poor prognostic indicator for outcome. We will continue holding beta veronica due to hypotension. Cardiology is following and appreciate recommendations Overall, very poor prognosis-discussed with the patient and his family at bedside on multiple occasions Tolerating lasix the last few days and diuresing with improvement in dyspnea -Follow I's and O's, daily weights, low-sodium diet -Continue Lasix 40mg po bid -follow BP as above and start dopamine and transfer to ICU if decompensates -with anemia in the setting of ongoing demand ischemia and decompensated HF, considering PRBC transfusion of 1 unit if Hgb<7.5 -if have to transfuse, will give 1 unit PRBCs very slowly over 4 hours with extra Lasix (7) Multifocal pneumonia: Due to borderline hypothermia, elevated procalcitonin, hypotension, etc - - the following were done on 10/18: 1. broadened abx (changed cefepime and doxycycline to zosyn & levaquin). 2. added daptomycin to cover his port - use empirically for 48 hours only-dcd after 2 days as MRSA swab negative and cultures negative 3. repeat blood cx's were obtained-no growth to date 4. serial lactates-now negative, no need to repeat again 5. of note - urine cx from 10/17/18 was negative 6. 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 repeat bronch THIS admission with repeat fungal cultures, AFB, cytologies, etc. thus far all cx's negative. path from the [facility] negative for malignant cells but this certainly does not rule out a cancer recurrence -continue to hold the voriconazole for now (9) Cavitary lesion of lung: left upper lobe. this is in the location of his original lung cancer from the past. the degree of cavitation in the [facility] has increased over the last year. there has been suspicion of fungal infection in his cavity. see discussion above in "aspergillus". cannot rule out recurrent cancer despite negative path. certainly with his weight loss need to be concerned about recurrent small cell lung ca. (10) Small cell lung cancer: initial diagnosis in 2015, s/p resection around that time, of [facility]. now with concerns of recurrent cancer. see discussion above. (11) CAD (coronary artery disease): see discussion above in "STEMI." troponin likely remaining elevated due to acute tubular necrosis, ongoing cardiac issues, etc. ECG on 10/20 with no evidence of acute ischemia Troponin trending downward as above (12) PVD (peripheral vascular disease): patient denies claudication symptoms of legs but he clearly has PAD given his poor pulses on exam. ideally should be on statin but in light of voriconazole use and elevated LFTs, will defer for now. cont asa. (13) HTN (hypertension): now with hypotension as above holding any BP meds (14) BPH (benign prostatic hyperplasia): cont finasteride poor candidate for alpha veronica due to low BPs No further issues with urinary output or frequency UA not consistent with infection, urine culture no growth on 10/17 I discontinued the oxybutynin in case causing urinary retention (when on it, was voiding small volumes)-now resolved (15) HLD (hyperlipidemia): Statin therapy being held due to elevated LFTs and being on voriconazole which is also now held (16) Anemia: suspect multifactorial including concern about lung ca recurrence, fungal infection, heart failure can cause anemia of chronic disease ferritin level is elevated c/w acute phase reactant. follow cbc's. Hemoglobin down back up to 8.2 today, no evidence of bleeding b12 level was technically normal but in the 300s. -continue FeSO4 325mg po bid, consider IV iron infusions however this is not been shown to be beneficial in the setting of heart failure -continue to supplement the B12 to be complete. -Considering transfusion as above, noting that he went into flash pulmonary edema the last time he got 1 unit of PRBCs and required intubation in 05/2018- transfuse for threshold Hgb<7.5 -Continue to hold heparin SQ in case of occult bleeding (17) CKD stage 3 due to type 2 diabetes mellitus: Cr 1.1 to 1.3 at baseline now with GHANSHYAM/ARF, likely ATN which is now improved (18) COPD (chronic obstructive pulmonary disease): with exacerbation now resolved -Continue prednisone 20 mg daily and taper down by 10mg q2 days-we will go down to 10 mg on 10/25 cont nebs as needed. cont supportive care. (19) Severe protein-calorie malnutrition: Has lost a lot of weight over the last 6 months added boost and MVI. (20) DM II (diabetes mellitus, type II), controlled: With hypoglycemia which was improved with lower doses of insulin, now some hyperglycemia -Pharmacy is managing his insulin (21) Physical deconditioning: significant. unable to do much activity because of cardiopulmonary disease. has severe BEE. PT, OT - if able. - will need referral back to cardiac rehab as an outpatient after discharge (22) Bradycardia: Bradycardia down to the 40s at times with getting up for urination-has not had that now in many days as he is now been off metoprolol -Follow on telemetry (23) Elevated LFTs: LFTs were into the 700s-800s, likely shock liver due to hypotension, as well as some aspect of hepatic congestion due to CHF Stable to slightly improved each day with diuresis Liver ultrasound performed today without significant abnormalities -Continue diuresis -Follow LFTs -Continue holding voriconazole and statin as above (24) Coagulopathy: INR 1.5, not on coumadin, likely due to liver dysfunction from shock liver /hepatic congestion, as well as poor nutritional status -Was given Vit K 2.5mg po x 1 on 10/22 INR is now reduced to 1.3 (25) Nonsustained ventricular tachycardia: Had a 20 beat run of ventricular tachycardia and a 4 beat run also on 10/23- asymptomatic Concerning especially in the setting of severe systolic CHF Cardiology has mentioned previously that the benefit of an ICD is not likely there are given his very poor overall prognosis for longevity -Consider restarting beta-veronica after diuresis if blood pressure can tolerate -Continue telemetry monitoring (26) DVT prophylaxis: Continue holding heparin 5000 BID for worsening anemia SCDs only Disposition-remain on telemetry. Discussed with palliative care who saw him on 10/19. Ultimately he decided to remain a full code. We did discuss at length his very poor prognosis and family is aware. He does seem to be overall slightly improved. It is hopeful that he might be able to be discharged in the next 2-3 days after more diuresis Full code Subjective Patient feeling less short of breath today. He took the Ativan at 2 in the morning and reports he was having crazy dreams after that but he was able to sleep. He is hesitant about taking it again tonight but cannot tell me why. He did diurese another 1.4 L since yesterday and his weight is down again today. Overall, he has lost 3.7 kg in the last 3 days. He denies abdominal pain or chest pain. His daughter, son, and are all present at the bedside. Telemetry with a 20 beat run of ventricular tachycardia that was asymptomatic, another 4 beat run of ventricular tachycardia, otherwise with normal sinus rhythm, sinus tachycardia, rates in the 90s-100s, with PVCs. Review of Systems All systems reviewed & are unremarkable except as noted in HPI & below Physical Exam 2 Vital Signs (Past 24 Hours): Last Vital Signs Temp 36.4 C L 10/23/18 19:02 Pulse 80 10/23/18 19:02 Resp 16 10/23/18 19:02 BP 90/50 L 10/23/18 19:02 Pulse Ox 93 10/23/18 19:02 Constitutional: + ill appearing and + thin (Sitting up in bed, eating dinner, less anxious) Eyes: PERRL, conjunctivae normal, anicteric sclerae ENMT: Ears: no hearing impairment Neck: trachea midline, no thyromegaly Respiratory: normal respiratory effort Auscultation: no rales, no rhonchi and no wheezes Cardiovascular: Rate/Rhythm: regular rhythm Heart Sounds: no murmur Vessels: + JVD (to 7 cm at a 90 degree angle which is improved from previous) Extremities: no edema Gastrointestinal (Abdomen): normal bowel sounds, soft, nontender, no hepatosplenomegaly Musculoskeletal: Extremities: extremities normal to inspection; no cyanosis and no clubbing Skin: no rashes, warm and dry Neurologic: moves all extremities and awake; no focal motor deficits Psychiatric: Orientation: oriented to person and oriented to place Results & Data Laboratory Results 10/23/18 10/23/18 10/23/18 Range/Units 16:01 11:20 07:33 WBC (4.8-10.8) K/uL RBC (4.7-6.1) M/uL Hgb (14.0-18.0) g/dL Hct (42-52) % MCV (80-100) fL MCH (25-34) pg MCHC (32-36) g/dL RDW Std Deviation (36.4-46.3) fL RDW Coeff of Molly (11.5-14.5) % Plt Count (130-400) K/uL MPV (7.4-10.4) fL Immature Gran % (Auto) % Neut % (Auto) % Lymph % (Auto) % [place] % (Auto) % Eos % (Auto) % Baso % (Auto) % Immature Gran # (Auto) (0.00-0.02) K/uL Neut # (Auto) (1.4-6.5) K/uL Lymph # (Auto) (1.2-3.4) K/uL [place] # (Auto) (0.11-0.59) K/uL Eos # (Auto) (0-0.5) K/uL Baso # (Auto) (0-0.2) K/uL Absolute Nucleated RBC (0-0) K/uL Nucleated RBC % (auto) % Polychromasia Anisocytosis PT (9.0-12.0) Seconds INR (0.9-1.1) Sodium (136-145) mmol/L Potassium (3.5-5.1) mmol/L Chloride (98-107) mmol/L Carbon Dioxide (21-32) mmol/L Anion Gap (3-11) BUN (7-18) mg/dl Creatinine (0.6-1.4) mg/dl Est Cr Clr Drug Dosing ml/min Est GFR ( Amer) Est GFR (Non-Af Amer) BUN/Creatinine Ratio (10-20) Glucose (70-99) mg/dl POC Glucose 170 H 246 H 143 H (70-99) Calcium (8.5-10.1) mg/dl Phosphorus (2.5-4.9) mg/dl Magnesium (1.8-2.4) mg/dl Total Bilirubin (0.2-1) mg/dl Direct Bilirubin (0-0.2) mg/dl AST (15-37) U/L ALT (12-78) U/L Alkaline Phosphatase (45-117) U/L Total Protein (6.4-8.2) gm/dl Albumin (3.4-5.0) gm/dl 10/23/18 10/23/18 10/23/18 Range/Units 06:43 06:43 06:43 WBC 16.44 H (4.8-10.8) K/uL RBC 2.97 L (4.7-6.1) M/uL Hgb 8.2 L (14.0-18.0) g/dL Hct 25.7 L (42-52) % MCV 86.5 (80-100) fL MCH 27.6 (25-34) pg MCHC 31.9 L (32-36) g/dL RDW Std Deviation 61.3 H (36.4-46.3) fL RDW Coeff of Molly 23.0 H (11.5-14.5) % Plt Count 142 (130-400) K/uL MPV 11.4 H (7.4-10.4) fL Immature Gran % (Auto) 7.9 % Neut % (Auto) 75.6 % Lymph % (Auto) 4.9 % [place] % (Auto) 10.3 % Eos % (Auto) 0.4 % Baso % (Auto) 0.9 % Immature Gran # (Auto) 1.30 H (0.00-0.02) K/uL Neut # (Auto) 12.43 H (1.4-6.5) K/uL Lymph # (Auto) 0.80 L (1.2-3.4) K/uL [place] # (Auto) 1.70 H (0.11-0.59) K/uL Eos # (Auto) 0.06 (0-0.5) K/uL Baso # (Auto) 0.15 (0-0.2) K/uL Absolute Nucleated RBC 0.61 H (0-0) K/uL Nucleated RBC % (auto) 3.7 % Polychromasia 1+ Anisocytosis Present PT 13.4 H (9.0-12.0) Seconds INR 1.3 H (0.9-1.1) Sodium 137 (136-145) mmol/L Potassium 3.7 (3.5-5.1) mmol/L Chloride 104 (98-107) mmol/L Carbon Dioxide 26 (21-32) mmol/L Anion Gap 7.0 (3-11) BUN 60 H (7-18) mg/dl Creatinine 1.58 H (0.6-1.4) mg/dl Est Cr Clr Drug Dosing 31.5 ml/min Est GFR ( Amer) 49.2 Est GFR (Non-Af Amer) 42.5 BUN/Creatinine Ratio 37.7 H (10-20) Glucose 134 H (70-99) mg/dl POC Glucose (70-99) Calcium 8.2 L (8.5-10.1) mg/dl Phosphorus 2.3 L (2.5-4.9) mg/dl Magnesium 2.0 (1.8-2.4) mg/dl Total Bilirubin 1.1 H (0.2-1) mg/dl Direct Bilirubin 0.6 H (0-0.2) mg/dl AST 263 H (15-37) U/L ALT 603 H (12-78) U/L Alkaline Phosphatase 816 H (45-117) U/L Total Protein 6.3 L (6.4-8.2) gm/dl Albumin 2.4 L (3.4-5.0) gm/dl 10/22/18 Range/Units 20:22 WBC (4.8-10.8) K/uL RBC (4.7-6.1) M/uL Hgb (14.0-18.0) g/dL Hct (42-52) % MCV (80-100) fL MCH (25-34) pg MCHC (32-36) g/dL RDW Std Deviation (36.4-46.3) fL RDW Coeff of Molly (11.5-14.5) % Plt Count (130-400) K/uL MPV (7.4-10.4) fL Immature Gran % (Auto) % Neut % (Auto) % Lymph % (Auto) % [place] % (Auto) % Eos % (Auto) % Baso % (Auto) % Immature Gran # (Auto) (0.00-0.02) K/uL Neut # (Auto) (1.4-6.5) K/uL Lymph # (Auto) (1.2-3.4) K/uL [place] # (Auto) (0.11-0.59) K/uL Eos # (Auto) (0-0.5) K/uL Baso # (Auto) (0-0.2) K/uL Absolute Nucleated RBC (0-0) K/uL Nucleated RBC % (auto) % Polychromasia Anisocytosis PT (9.0-12.0) Seconds INR (0.9-1.1) Sodium (136-145) mmol/L Potassium (3.5-5.1) mmol/L Chloride (98-107) mmol/L Carbon Dioxide (21-32) mmol/L Anion Gap (3-11) BUN (7-18) mg/dl Creatinine (0.6-1.4) mg/dl Est Cr Clr Drug Dosing ml/min Est GFR ( Amer) Est GFR (Non-Af Amer) BUN/Creatinine Ratio (10-20) Glucose (70-99) mg/dl POC Glucose 240 H (70-99) Calcium (8.5-10.1) mg/dl Phosphorus (2.5-4.9) mg/dl Magnesium (1.8-2.4) mg/dl Total Bilirubin (0.2-1) mg/dl Direct Bilirubin (0-0.2) mg/dl AST (15-37) U/L ALT (12-78) U/L Alkaline Phosphatase (45-117) U/L Total Protein (6.4-8.2) gm/dl Albumin (3.4-5.0) gm/dl _ (1) ST elevation (STEMI) myocardial infarction Involved coronary artery: unspecified coronary artery Qualified Code(s): I21.3 - ST elevation (STEMI) myocardial infarction of unspecified site (2) Hypotension Hypotension type: other hypotension type Trimester: Qualified Code(s): I95.89 - Other hypotension (3) CAD (coronary artery disease) Coronary Disease-Associated Artery/Lesion type: [place] artery [place] vs. transplanted heart: [place] heart Associated angina: without angina Qualified Code(s): I25.10 - Atherosclerotic heart disease of [place] coronary artery without angina pectoris (4) HTN (hypertension) Hypertension type: essential hypertension Qualified Code(s): I10 - Essential (primary) hypertension (5) BPH (benign prostatic hyperplasia) Lower urinary tract symptom presence: symptoms absent Lower urinary tract symptom detail: Qualified Code(s): N40.0 - Benign prostatic hyperplasia without lower urinary tract symptoms (6) HLD (hyperlipidemia) Hyperlipidemia type: unspecified Qualified Code(s): E78.5 - Hyperlipidemia, unspecified (7) Anemia Anemia type: other cause Iron deficiency anemia type: Vitamin B12 deficiency anemia type: Folate deficiency anemia type: Bone marrow failure anemia type: Hemolytic anemia type: Other causes of anemia: other cause, not classified Chronic kidney disease stage: Qualified Code(s): D64.89 - Other specified anemias (8) COPD (chronic obstructive pulmonary disease) COPD type: chronic bronchitis Chronic bronchitis type: unspecified Emphysema type: Qualified Code(s): J42 - Unspecified chronic bronchitis (9) DM II (diabetes mellitus, type II), controlled Diabetes mellitus care home insulin use: without termite renewal inspector use Diabetes mellitus complication status: with kidney complications Diabetes mellitus complication detail: with chronic kidney disease Diabetic retinopathy severity : Proliferative retinopathy type: Diabetes mellitus macular edema: Laterality: Chronic kidney disease stage: stage 3 (moderate) Qualified Code(s ): E11.22 - Type 2 diabetes mellitus with diabetic chronic kidney disease; N18.3 - Chronic kidney disease, stage 3 (moderate)
[2018-10-24 06:52] LABS: Mean Corpuscular Hgb Conc 31.8 g/dL (32-36); Nucleated RBC # (auto) 0.31 K/uL (0-0); Nucleated RBC % (auto) 2.6 %
[2018-10-24 07:01] LABS: Hematocrit (blood only) 26.7 % (42-52); Hemoglobin 8.5 g/dL (14.0-18.0); Mean Corpuscular Volume 87.5 fL (80-100); RDW Coefficient of Variation 24.3 % (11.5-14.5); RDW Standard Deviation 61.7 fL (36.4-46.3); Red Blood Count 3.05 M/uL (4.7-6.1); White Blood Count 12.29 K/uL (4.8-10.8)
[2018-10-24 07:16] LABS: Mean Platelet Volume 11.6 fL (7.4-10.4); Platelet Count 134 K/uL (130-400)
[2018-10-24 07:17] LABS: Anisocytosis Present; Basophils # (auto) 0.05 K/uL (0-0.2); Basophils % (auto) 0.4 %; Eosinophils % (auto) 0.8 %; Immature Granulocytes # (auto) 0.71 K/uL (0.00-0.02); Immature Granulocytes % (auto) 5.8 %; Lymphocytes # (auto) 0.93 K/uL (1.2-3.4); Lymphocytes % (auto) 7.6 %; Monocytes % (auto) 10.6 %; Neutrophils % (auto) 74.8 %; Polychromasia 1+; Target Cells 1+
[2018-10-24 07:29] LABS: Albumin Level 2.3 gm/dl (3.4-5.0); BUN Creatinine Ratio 39.6 (10-20); Bilirubin Direct 0.5 mg/dl (0-0.2); Calcium 8.2 mg/dl (8.5-10.1); Creatinine Clr Calc Pharmacy 40.9 ml/min; Est GFR (African American) 69.3; Est GFR (Non-African American) 59.8; Magnesium 1.8 mg/dl (1.8-2.4); Potassium 3.2 mmol/L (3.5-5.1)
[2018-10-24 07:32] LABS: Phosphorus 2.7 mg/dl (2.5-4.9); Total Protein 6.2 gm/dl (6.4-8.2)
[2018-10-24] MEDS: INSULIN HUMAN NPH SC SCH (08:26)
[2018-10-24] MEDS: INSULIN ASPART 100 UNITS/ML 3 ML PEN SC SCH ×4 (08:28→20:20)
[2018-10-24] MEDS: MAGNESIUM OXIDE 400 MG TAB PO SCH (08:29)
[2018-10-24] MEDS: FERROUS SULFATE 325 MG TAB PO SCH ×2 (08:29→20:20)
[2018-10-24] MEDS: PANTOprazole 40 MG TAB PO SCH (08:29)
[2018-10-24] MEDS: CEROVITE ADV FORMULA TAB PO SCH (08:29)
[2018-10-24] MEDS: ASPIRIN 81 MG ECTAB PO SCH (08:29)
[2018-10-24] MEDS: FINASTERIDE 5 MG TAB PO SCH (08:29)
[2018-10-24] MEDS: predniSONE 10 MG TABLET PO SCH (08:29)
[2018-10-24] MEDS: FUROSEMIDE 40 MG TAB PO SCH ×2 (08:30→20:20)
[2018-10-24] MEDS: POTASSIUM CHLORIDE 20 MEQ TABCR PO SCH ×2 (08:30→20:20)
[2018-10-24] MEDS: CYANOCOBALAMIN 500 MCG TABLET (VITAMIN B-12) PO SCH (08:30)
[2018-10-24] MEDS ORDERED: POTASSIUM CHLORIDE 20 MEQ TABCR PO STA (09:04)
--- NOTE | 2018-10-24 11:49 | Cardiology Progress Note ---
Date of Service October 24, 2018 Assessment & Plan (1) Ischemic cardiomyopathy: Clinically he is improving. Renal function is actually improved. Transaminases are improved. BUN is up slightly. I think continue on his current dose of oral diuretics would be reasonable monitoring him for any evidence of hypovolemia. Initially he was on metoprolol and spironolactone. His blood pressure appears to be good. I think would be reasonable to try to reinstitute to metoprolol perhaps at a lower dose. 12.5 milligrams of metoprolol succinate would be reasonable place to start. (2) ST elevation (STEMI) myocardial infarction: Likely secondary to a chronically occluded diagonal branch. He does carry history of several interventions including PCI to the RCA x2 in February 2006, PCI to the LCX and OM in December 2007, and PCI to the D1 in November 2007. (3) Dyspnea: Much improved. On room air currently. (4) Bradycardia: Resolved. Occasional PVCs. (5) Ventricular tachycardia: Patient did have a very brief episode of nonsustained ventricular tachycardia approximately 36 hours ago. This not appear to result in any symptoms. He has known cardiomyopathy. Starting him back on his beta-veronica would be the treatment of choice. I do not believe this represents an indication for any more aggressive therapy such as antiarrhythmics or device therapy. Subjective This morning the patient's main concern is being bored. He states that he was able to sleep better last night. He has had improvement in his breathing overall. He did not recall ambulating much yesterday as known was available to help him. He has been ambulatory to the commode and back without limiting dyspnea or dizziness. No chest pain currently. Physical Exam 2 Vital Signs (Past 24 Hours): Last Vital Signs Temp 36.3 C L 10/24/18 11:27 Pulse 98 H 10/24/18 11:27 Resp 18 10/24/18 11:27 BP 111/74 10/24/18 11:27 Pulse Ox 90 10/24/18 11:27 Physical Exam: The patient is alert and oriented. Mood and affect appeared normal. He answered all questions appropriately. HEENT: Pupils are equal and reactive to light and accommodation. Extraocular movements are intact. The sclerae are anicteric. Neuro: Cranial nerves intact Neck: Patient's neck is supple. He has palpable carotid pulses bilaterally without bruits on auscultation. There is no evidence of jugular venous distention. The thyroid is not enlarged. Lungs: Some reduced breath sounds in the right versus the left. No crackles. No expiratory wheezing. Normal respiratory effort. Cardiac: Heart demonstrates a regular rate and rhythm. Pulses: The patient has palpable radial pulses bilaterally that are equal in intensity Extremities: There was no evidence of hypoperfusion. There is no cyanosis or clubbing. Trace edema. Skin: I did not appreciate any rashes on examination today. Results & Data Laboratory Results Abnormal Lab Results 10/21/18 10/23/18 10/23/18 08:34 11:20 16:01 WBC RBC Hgb Hct MCV MCH MCHC RDW Std Deviation RDW Coeff of Molly Plt Count MPV Immature Gran % (Auto) Neut % (Auto) Lymph % (Auto) [place] % (Auto) Eos % (Auto) Baso % (Auto) Immature Gran # (Auto) Neut # (Auto) Lymph # (Auto) [place] # (Auto) Eos # (Auto) Baso # (Auto) Absolute Nucleated RBC Nucleated RBC % (auto) Platelet Estimate Polychromasia Anisocytosis Target Cells Sodium Potassium Chloride Carbon Dioxide Anion Gap BUN Creatinine Est Cr Clr Drug Dosing Est GFR ( Amer) Est GFR (Non-Af Amer) BUN/Creatinine Ratio Glucose POC Glucose 246 H 170 H Calcium Phosphorus Magnesium Total Bilirubin Direct Bilirubin AST ALT Alkaline Phosphatase Total Protein Albumin Crossmatch See Detail 10/23/18 10/23/18 10/24/18 19:58 22:20 06:11 WBC 12.29 H RBC 3.05 L Hgb 8.5 L Hct 26.7 L MCV 87.5 MCH 27.9 MCHC 31.8 L RDW Std Deviation 61.7 H RDW Coeff of Molly 24.3 H Plt Count 134 MPV 11.6 H Immature Gran % (Auto) 5.8 Neut % (Auto) 74.8 Lymph % (Auto) 7.6 [place] % (Auto) 10.6 Eos % (Auto) 0.8 Baso % (Auto) 0.4 Immature Gran # (Auto) 0.71 H Neut # (Auto) 9.20 H Lymph # (Auto) 0.93 L [place] # (Auto) 1.30 H Eos # (Auto) 0.10 Baso # (Auto) 0.05 Absolute Nucleated RBC 0.31 H Nucleated RBC % (auto) 2.6 Platelet Estimate Decreased Polychromasia 1+ Anisocytosis Present Target Cells 1+ Sodium Potassium Chloride Carbon Dioxide Anion Gap BUN Creatinine Est Cr Clr Drug Dosing Est GFR ( Amer) Est GFR (Non-Af Amer) BUN/Creatinine Ratio Glucose POC Glucose 263 H 160 H Calcium Phosphorus Magnesium Total Bilirubin Direct Bilirubin AST ALT Alkaline Phosphatase Total Protein Albumin Crossmatch 10/24/18 10/24/18 10/24/18 06:11 07:14 11:21 WBC RBC Hgb Hct MCV MCH MCHC RDW Std Deviation RDW Coeff of Molly Plt Count MPV Immature Gran % (Auto) Neut % (Auto) Lymph % (Auto) [place] % (Auto) Eos % (Auto) Baso % (Auto) Immature Gran # (Auto) Neut # (Auto) Lymph # (Auto) [place] # (Auto) Eos # (Auto) Baso # (Auto) Absolute Nucleated RBC Nucleated RBC % (auto) Platelet Estimate Polychromasia Anisocytosis Target Cells Sodium 139 Potassium 3.2 L Chloride 104 Carbon Dioxide 28 Anion Gap 7.0 BUN 47 H Creatinine 1.19 D Est Cr Clr Drug Dosing 40.9 Est GFR ( Amer) 69.3 Est GFR (Non-Af Amer) 59.8 BUN/Creatinine Ratio 39.6 H Glucose 70 POC Glucose 84 248 H Calcium 8.2 L Phosphorus 2.7 Magnesium 1.8 Total Bilirubin 1.0 Direct Bilirubin 0.5 H AST 151 H ALT 499 H Alkaline Phosphatase 790 H Total Protein 6.2 L Albumin 2.3 L Crossmatch ECG Additional Comments: Review of telemetry reveals normal sinus rhythm with occasional ventricular ectopy _ (1) ST elevation (STEMI) myocardial infarction Involved coronary artery: unspecified coronary artery Qualified Code(s): I21.3 - ST elevation (STEMI) myocardial infarction of unspecified site (2) Dyspnea Dyspnea type: unspecified Qualified Code(s): R06.00 - Dyspnea, unspecified
--- NOTE | 2018-10-24 12:54 | Pharmacy Report ---
PHA: Glycemic Control AP - Date of Service October 24, 2018 - Assessment & Plan Outpatient Anti-diabetic Regimen: * Glipizide 5 mg po daily * Metformin 1000 mg po BID * A1c = 6.7% on 10/15/18 Risk Factors for Insulin Resistance: * Steroids: prednisone 20 mg PO qAM * Infection: HAP - completed course of Zosyn * Diet: T2DM, minced ASSESSMENT: * Mr. Aden is a 72 y/o M known to our service with well controlled T2DM on oral agents alone admitted 10/14 with respiratory failure 2nd HAP * Previous admissions suggest that patient's BSGs are labile with steroid involvement * Anticipate significant impact with prednisone taper * Patient has known history of severe AM hypoglycemia while on prednisone po daily * Cannot tolerate Lantus (effects of Lantus persist overnight and effects of prednisone administered in AM dissipate overnight) * Switched on NPH on 10/19. Will need to taper dose of NPH with steroid taper * BSG's reflective of steroid sensitivity - lowest 2 on a daily basis are AM fasting and HS (prior to initiation of effect of AM prednisone and after effects of AM prednisone wear off) and highest 2 are pre-lunch and dinner. Will therefore tighten Novolog for breakfast and lunch administrations to help prevent hyperglycemia prior to lunch and dinner. * NPH dosing has varied, but it seems like 6 units is the best dose while on prednisone 20 mg. Will schedule as such, with notation to call pharmacist if prednisone *20mg* is not administered PLAN * Insulin NPH 6 units SC QDB (while on prednisone 20 mg po qAM) * Novolog - with breakfast and lunch * Goal range: 110-140 mg/dL * Correction factor: 20 mg/dL/unit * Carb ratio: 7 g CHO/unit * Novolog - with dinner and at HS * Goal range: 120-150 mg/dL * Correction factor: 25 mg/dL/unit * Carb ratio: 8 g CHO/unit Pharmacy will continue to monitor patient daily and write orders per [facility] inpatient glycemic control protocol. Thanks. * Please note that the plan above was derived based on current level of insulin resistance and hospital stress. These recommendations are appropriate for inpatient admission only. Plan of care upon discharge will need to be reassessed to avoid potential outpatient hypo/hyperglycemia.
[2018-10-24 13:35] LABS: Base Excess VBG 3.6 mEq/L; HCO3 VBG 28 mmol/L; Oxygen Saturation VBG < 60.0 %; PCO2 VBG 39 mmHg (38-50); PO2 VBG 25 mmHg; pH VBG 7.47 (7.36-7.41)
--- NOTE | 2018-10-24 17:42 | Hospitalist Progress Note ---
Date of Service October 24, 2018 Assessment & Plan (1) Toxic encephalopathy: likely due to ativan at HS last night. ammonia top-normal but doubt he has hepatic encephalopathy. lactate was normal today. VBG w/o hypercarbia. I don't see any good option for Mr. Aden for his insomnia. He has resolving shock liver and all sleep aids, to some degree, could cause confusion. Could consider trazodone at HS (25mg). Will leave ativan at 0.5mg PO for now. Use very, very cautiously. 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 recent bronch with negative cytologies but this does not rule out recurrent Cancer (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 due to shock liver (7) Elevated LFTs: improving repeat every 48 hrs (8) ATN (acute tubular necrosis): resolved (9) Severe protein-calorie malnutrition: ongoing concerning for recurrent cancer fungal infection also likely contributing (10) Small cell lung cancer: see discussion above (11) CKD stage 3 due to type 2 diabetes mellitus: creatinine has approached baseline (12) DM II (diabetes mellitus, type II), controlled: pharmacy managing appreciate their efforts (13) COPD exacerbation: wean prednisone to 10mg in AM tomorrow (14) Hypotension: likely was cardiogenic in origin resolved (15) CAD (coronary artery disease): concern for STEMI at time of this admission s/p cath --- no culprit lesion found --- cath findings were felt to be chronic try to resume beta veronica cont asa (16) DVT prophylaxis: add back heparin 5000 BID family extensively updated at bedside I am heavily concerned about his near and long-term prognosis Subjective 2 visits to the pt's room today during AM rounds he was quite sleepy, but able to wake to answer basic questions he was mildly confused, getting the day and month wrong on orientation questions again reports he slept poorly overnight despite ativan at bedside during my 2nd visit - which was much later in the day - he was wide awake children and all at bedside we talked alot about d/c, rehab, etc. Constitutional: + fatigue; no fever and no weight gain Respiratory: + dyspnea on exertion; no cough Cardiovascular: no chest pain Gastrointestinal: no abdominal pain Physical Exam 2 Vital Signs (Past 24 Hours): Last Vital Signs Temp 36.3 C L 10/24/18 14:56 Pulse 87 10/24/18 14:56 Resp 16 10/24/18 14:56 BP 94/62 L 10/24/18 14:56 Pulse Ox 93 10/24/18 14:56 Constitutional: + thin; no acute distress and not ill appearing ENMT: external ear and nose normal, oropharynx normal Respiratory: normal respiratory effort, lungs clear to auscultation Auscultation: + diminished lung sounds (LLL) Cardiovascular: Rate/Rhythm: regular rate and regular rhythm Heart Sounds: normal S1 and normal S2 Vessels: no JVD Extremities: no edema Gastrointestinal (Abdomen): normal bowel sounds, soft, nontender, no hepatosplenomegaly Skin: mild pallor Psychiatric: Orientation: + not oriented x 3 Results & Data Laboratory Results Laboratory Results - last 24 hr 10/21/18 10/23/18 10/23/18 08:34 19:58 22:20 WBC RBC Hgb Hct MCV MCH MCHC RDW Std Deviation RDW Coeff of Molly Plt Count MPV Immature Gran % (Auto) Neut % (Auto) Lymph % (Auto) [place] % (Auto) Eos % (Auto) Baso % (Auto) Immature Gran # (Auto) Neut # (Auto) Lymph # (Auto) [place] # (Auto) Eos # (Auto) Baso # (Auto) Absolute Nucleated RBC Nucleated RBC % (auto) Platelet Estimate Polychromasia Anisocytosis Target Cells VBG pH VBG pCO2 VBG pO2 VBG HCO3 VBG O2 Saturation VBG Base Excess Barometric Pressure Sodium Potassium Chloride Carbon Dioxide Anion Gap BUN Creatinine Est Cr Clr Drug Dosing Est GFR ( Amer) Est GFR (Non-Af Amer) BUN/Creatinine Ratio Glucose POC Glucose 263 H 160 H Lactate Calcium Phosphorus Magnesium Total Bilirubin Direct Bilirubin AST ALT Alkaline Phosphatase Ammonia Total Protein Albumin Crossmatch See Detail 10/24/18 10/24/18 10/24/18 06:11 06:11 07:14 WBC 12.29 H RBC 3.05 L Hgb 8.5 L Hct 26.7 L MCV 87.5 MCH 27.9 MCHC 31.8 L RDW Std Deviation 61.7 H RDW Coeff of Molly 24.3 H Plt Count 134 MPV 11.6 H Immature Gran % (Auto) 5.8 Neut % (Auto) 74.8 Lymph % (Auto) 7.6 [place] % (Auto) 10.6 Eos % (Auto) 0.8 Baso % (Auto) 0.4 Immature Gran # (Auto) 0.71 H Neut # (Auto) 9.20 H Lymph # (Auto) 0.93 L [place] # (Auto) 1.30 H Eos # (Auto) 0.10 Baso # (Auto) 0.05 Absolute Nucleated RBC 0.31 H Nucleated RBC % (auto) 2.6 Platelet Estimate Decreased Polychromasia 1+ Anisocytosis Present Target Cells 1+ VBG pH VBG pCO2 VBG pO2 VBG HCO3 VBG O2 Saturation VBG Base Excess Barometric Pressure Sodium 139 Potassium 3.2 L Chloride 104 Carbon Dioxide 28 Anion Gap 7.0 BUN 47 H Creatinine 1.19 D Est Cr Clr Drug Dosing 40.9 Est GFR ( Amer) 69.3 Est GFR (Non-Af Amer) 59.8 BUN/Creatinine Ratio 39.6 H Glucose 70 POC Glucose 84 Lactate Calcium 8.2 L Phosphorus 2.7 Magnesium 1.8 Total Bilirubin 1.0 Direct Bilirubin 0.5 H AST 151 H ALT 499 H Alkaline Phosphatase 790 H Ammonia Total Protein 6.2 L Albumin 2.3 L Crossmatch 10/24/18 10/24/18 10/24/18 11:21 13:15 13:15 WBC RBC Hgb Hct MCV MCH MCHC RDW Std Deviation RDW Coeff of Molly Plt Count MPV Immature Gran % (Auto) Neut % (Auto) Lymph % (Auto) [place] % (Auto) Eos % (Auto) Baso % (Auto) Immature Gran # (Auto) Neut # (Auto) Lymph # (Auto) [place] # (Auto) Eos # (Auto) Baso # (Auto) Absolute Nucleated RBC Nucleated RBC % (auto) Platelet Estimate Polychromasia Anisocytosis Target Cells VBG pH VBG pCO2 VBG pO2 VBG HCO3 VBG O2 Saturation VBG Base Excess Barometric Pressure Sodium Potassium Chloride Carbon Dioxide Anion Gap BUN Creatinine Est Cr Clr Drug Dosing Est GFR ( Amer) Est GFR (Non-Af Amer) BUN/Creatinine Ratio Glucose POC Glucose 248 H Lactate 1.5 Calcium Phosphorus Magnesium Total Bilirubin Direct Bilirubin AST ALT Alkaline Phosphatase Ammonia 32.4 H Total Protein Albumin Crossmatch 10/24/18 10/24/18 13:15 16:20 WBC RBC Hgb Hct MCV MCH MCHC RDW Std Deviation RDW Coeff of Molly Plt Count MPV Immature Gran % (Auto) Neut % (Auto) Lymph % (Auto) [place] % (Auto) Eos % (Auto) Baso % (Auto) Immature Gran # (Auto) Neut # (Auto) Lymph # (Auto) [place] # (Auto) Eos # (Auto) Baso # (Auto) Absolute Nucleated RBC Nucleated RBC % (auto) Platelet Estimate Polychromasia Anisocytosis Target Cells VBG pH 7.47 H VBG pCO2 39 VBG pO2 25 VBG HCO3 28 VBG O2 Saturation < 60.0 VBG Base Excess 3.6 Barometric Pressure 724.4 Sodium Potassium Chloride Carbon Dioxide Anion Gap BUN Creatinine Est Cr Clr Drug Dosing Est GFR ( Amer) Est GFR (Non-Af Amer) BUN/Creatinine Ratio Glucose POC Glucose 164 H Lactate Calcium Phosphorus Magnesium Total Bilirubin Direct Bilirubin AST ALT Alkaline Phosphatase Ammonia Total Protein Albumin Crossmatch _ (1) DM II (diabetes mellitus, type II), controlled Diabetes mellitus retirement insulin use: without meterman use Diabetes mellitus complication status: with kidney complications Diabetes mellitus complication detail: with chronic kidney disease Diabetic retinopathy severity : Proliferative retinopathy type: Diabetes mellitus macular edema: Laterality: Chronic kidney disease stage: stage 3 (moderate) Qualified Code(s ): E11.22 - Type 2 diabetes mellitus with diabetic chronic kidney disease; N18.3 - Chronic kidney disease, stage 3 (moderate) (2) Hypotension Hypotension type: other hypotension type Trimester: Qualified Code(s): I95.89 - Other hypotension (3) CAD (coronary artery disease) Coronary Disease-Associated Artery/Lesion type: three affiliated artery [place] vs. transplanted heart: three affiliated heart Associated angina: without angina Qualified Code(s): I25.10 - Atherosclerotic heart disease of three affiliated coronary artery without angina pectoris
[2018-10-24] MEDS: LORazepam 0.5 MG TAB PO PRN (20:25)
[2018-10-24] MEDS: HEPARIN 100 UNIT/ML 5ML FLUSH FLUSH SCH (23:57)
[2018-10-25 06:07] LABS: Hematocrit (blood only) 29.5 % (42-52); Hemoglobin 9.2 g/dL (14.0-18.0); Mean Corpuscular Hgb Conc 31.2 g/dL (32-36); Mean Corpuscular Volume 88.9 fL (80-100); Mean Platelet Volume 11.9 fL (7.4-10.4); Nucleated RBC # (auto) 0.12 K/uL (0-0); Nucleated RBC % (auto) 1.1 %; Platelet Count 162 K/uL (130-400); RDW Coefficient of Variation 25.5 % (11.5-14.5); RDW Standard Deviation 65.3 fL (36.4-46.3); Red Blood Count 3.32 M/uL (4.7-6.1); White Blood Count 10.77 K/uL (4.8-10.8)
[2018-10-25 06:49] LABS: Albumin Globulin Ratio 0.6 (0.9-2); Albumin Level 2.4 gm/dl (3.4-5.0); BUN Creatinine Ratio 32.6 (10-20); Bilirubin,Total 0.9 mg/dl (0.2-1); Calcium 8.3 mg/dl (8.5-10.1); Creatinine Clr Calc Pharmacy 37.5 ml/min; Est GFR (African American) 64.1; Est GFR (Non-African American) 55.3; Globulin 3.9 gm/dl (2.5-4.0); Total Protein 6.3 gm/dl (6.4-8.2)
[2018-10-25] MEDS ORDERED: INSULIN HUMAN NPH SC SCH (07:30)
[2018-10-25] MEDS ORDERED: INSULIN ASPART 100 UNITS/ML 3 ML PEN SC SCH (07:30)
[2018-10-25] MEDS: FERROUS SULFATE 325 MG TAB PO SCH ×2 (09:59→19:47)
[2018-10-25] MEDS: INSULIN ASPART 100 UNITS/ML 3 ML PEN SC SCH ×4 (10:00→22:11)
[2018-10-25] MEDS: INSULIN HUMAN NPH SC SCH (10:00)
[2018-10-25] MEDS: ASPIRIN 81 MG ECTAB PO SCH (10:01)
[2018-10-25] MEDS: CEROVITE ADV FORMULA TAB PO SCH (10:01)
[2018-10-25] MEDS: predniSONE 10 MG TABLET PO SCH (10:01)
[2018-10-25] MEDS: CYANOCOBALAMIN 500 MCG TABLET (VITAMIN B-12) PO SCH (10:01)
[2018-10-25] MEDS: PANTOprazole 40 MG TAB PO SCH (10:01)
[2018-10-25] MEDS: FINASTERIDE 5 MG TAB PO SCH (10:02)
[2018-10-25] MEDS: POTASSIUM CHLORIDE 20 MEQ TABCR PO SCH ×2 (10:02→22:08)
[2018-10-25] MEDS: FUROSEMIDE 40 MG TAB PO SCH ×2 (10:02→17:20)
[2018-10-25] MEDS: MAGNESIUM OXIDE 400 MG TAB PO SCH (10:03)
[2018-10-25] MEDS: METOPROLOL TARTRATE 25 MG TAB PO SCH ×2 (10:04→22:08)
[2018-10-25] MEDS: DEXAMETHASONE CONC 3.75 MG, NYSTATIN 30 ML, DiphenhydrAMINE Syrup 300 MG, ORA-SWEET SYR... PO SCH ×4 (11:07→22:10)
--- NOTE | 2018-10-25 12:06 | Pharmacy Report ---
PHA: Glycemic Control AP - Date of Service October 25, 2018 - Assessment & Plan Outpatient Anti-diabetic Regimen: * Glipizide 5 mg po daily * Metformin 1000 mg po BID * A1c = 6.7% on 10/15/18 Risk Factors for Insulin Resistance: * Steroids: prednisone 20 mg PO qAM *tapered* to 10 mg po qAM today * Infection: HAP - completed course of Zosyn * Diet: T2DM, minced ASSESSMENT: * Mr. Aden is a 72 y/o M known to our service with well controlled T2DM on oral agents alone admitted 10/14 with respiratory failure 2nd HAP * Previous admissions suggest that patient's BSGs are labile with steroid involvement * Anticipate significant impact with prednisone taper * Patient has known history of severe AM hypoglycemia while on prednisone po daily * Cannot tolerate Lantus (effects of Lantus persist overnight and effects of prednisone administered in AM dissipate overnight) * Switched on NPH on 10/19. Will need to taper dose of NPH with steroid taper * Steroids tapered today * Will decrease NPH slightly * Loosened Novolog slightly, but not significantly as BSG's were not well controlled on previous regimen (note: BSG persistently elevated at lunch today with loosening taking effect at breakfast but will not intervene at this time as Novolog was administered late at 1000 and lunch BSG was obtained early at 1120) PLAN * Insulin NPH 3 units SC QDB (while on prednisone 10 mg po qAM) * Novolog ACHS * Goal range: 110-140 mg/dL * Correction factor: 25 mg/dL/unit * Carb ratio: 8 g CHO/unit Pharmacy will continue to monitor patient daily and write orders per [facility] inpatient glycemic control protocol. Thanks. * Please note that the plan above was derived based on current level of insulin resistance and hospital stress. These recommendations are appropriate for inpatient admission only. Plan of care upon discharge will need to be reassessed to avoid potential outpatient hypo/hyperglycemia.
--- NOTE | 2018-10-25 14:13 | Cardiology Progress Note ---
Date of Service October 25, 2018 Assessment & Plan (1) Ischemic cardiomyopathy: Clinically he is improving. Renal function is stable. I think he would benefit from a daily dose of diuretic. Perhaps 20 mg of Lasix orally. He was restarted on his metoprolol at a lower dose. I think he does well over the next 24 hours we can increase him to his usual dose. (2) ST elevation (STEMI) myocardial infarction: Likely secondary to a chronically occluded diagonal branch. He does carry history of several interventions including PCI to the RCA x2 in February 2006, PCI to the LCX and OM in December 2007, and PCI to the D1 in November 2007. (3) Dyspnea: Much improved. On room air currently. (4) Bradycardia: Resolved. Occasional PVCs. (5) Ventricular tachycardia: No recurrent episodes. Started back on his metoprolol. Subjective This morning the patient was quite tired. According to his who was present for today's interview he did not sleep well last night. He was administered a sedative and appears quite tired this morning. According to his family he did ambulate to the bathroom. The patient states that he felt weak but no overt dizziness or limiting dyspnea. He states that his breathing is "poor" but seem much more comfortable today than prior in his admission. Physical Exam 2 Vital Signs (Past 24 Hours): Last Vital Signs Temp 37.4 C 10/25/18 12:04 Pulse 95 H 10/25/18 12:04 Resp 18 10/25/18 12:04 BP 140/77 10/25/18 12:04 Pulse Ox 97 10/25/18 12:04 Physical Exam: He appears tired today but was easily arousable and answers all questions appropriately.. Mood and affect appeared normal. HEENT: Pupils are equal and reactive to light and accommodation. Extraocular movements are intact. The sclerae are anicteric. Neuro: Cranial nerves intact Neck: Patient's neck is supple. He has palpable carotid pulses bilaterally without bruits on auscultation. There is no evidence of jugular venous distention. The thyroid is not enlarged. Lungs: Breath sounds overall. Good air movement. No rales. Extra Tory wheezing. Cardiac: Heart demonstrates a regular rate and rhythm with occasional ectopy. Pulses: The patient has palpable radial pulses bilaterally that are equal in intensity Extremities: There was no evidence of hypoperfusion. There is no cyanosis or clubbing. There is no edema. Skin: I did not appreciate any rashes on examination today. Atrial fibrillation Results & Data Laboratory Results Abnormal Lab Results 10/24/18 10/24/18 10/24/18 16:20 20:06 23:56 WBC RBC Hgb Hct MCV MCH MCHC RDW Std Deviation RDW Coeff of Molly Plt Count MPV Absolute Nucleated RBC Nucleated RBC % (auto) Sodium Potassium Chloride Carbon Dioxide Anion Gap BUN Creatinine Est Cr Clr Drug Dosing Est GFR ( Amer) Est GFR (Non-Af Amer) BUN/Creatinine Ratio Glucose POC Glucose 164 H 282 H 232 H Calcium Total Bilirubin AST ALT Alkaline Phosphatase Total Protein Albumin Globulin Albumin/Globulin Ratio 10/25/18 10/25/18 10/25/18 03:59 05:28 05:28 WBC 10.77 RBC 3.32 L Hgb 9.2 L Hct 29.5 L MCV 88.9 MCH 27.7 MCHC 31.2 L RDW Std Deviation 65.3 H RDW Coeff of Molly 25.5 H Plt Count 162 MPV 11.9 H Absolute Nucleated RBC 0.12 H Nucleated RBC % (auto) 1.1 Sodium 135 L Potassium 4.0 D Chloride 101 Carbon Dioxide 27 Anion Gap 7.0 BUN 41 H Creatinine 1.27 Est Cr Clr Drug Dosing 37.5 Est GFR ( Amer) 64.1 Est GFR (Non-Af Amer) 55.3 BUN/Creatinine Ratio 32.6 H Glucose 249 H POC Glucose 191 H Calcium 8.3 L Total Bilirubin 0.9 AST 81 H ALT 403 H Alkaline Phosphatase 765 H Total Protein 6.3 L Albumin 2.4 L Globulin 3.9 Albumin/Globulin Ratio 0.6 L 10/25/18 10/25/18 07:05 11:20 WBC RBC Hgb Hct MCV MCH MCHC RDW Std Deviation RDW Coeff of Molly Plt Count MPV Absolute Nucleated RBC Nucleated RBC % (auto) Sodium Potassium Chloride Carbon Dioxide Anion Gap BUN Creatinine Est Cr Clr Drug Dosing Est GFR ( Amer) Est GFR (Non-Af Amer) BUN/Creatinine Ratio Glucose POC Glucose 210 H 228 H Calcium Total Bilirubin AST ALT Alkaline Phosphatase Total Protein Albumin Globulin Albumin/Globulin Ratio ECG Additional Comments: View of his telemetry did not reveal any further arrhythmia _ (1) ST elevation (STEMI) myocardial infarction Involved coronary artery: unspecified coronary artery Qualified Code(s): I21.3 - ST elevation (STEMI) myocardial infarction of unspecified site (2) Dyspnea Dyspnea type: unspecified Qualified Code(s): R06.00 - Dyspnea, unspecified
[2018-10-25] MEDS: CARBOHYDRATES FOR HYPOGLYCEMIA PO PRN (16:27)
[2018-10-25 19:20] LABS: Appearance Urine Clear (Clear); Bacteria Urine Automated Negative (Negative); Bilirubin Urine Negative (Negative); Color Urine Yellow; Glucose Urine UA Negative (Negative); Ketones Urine Negative (Negative); Leukocyte Esterase Urine Negative (Negative); Nitrite Urine Negative (Negative); Protein Urine 1+ (Negative); Specific Gravity Urine 1.014 (1.000-1.030); Urobilinogen Urine Negative (Negative); WBC Urine Automated 0 /hpf (0-5); pH Urine 6.5 (4.5-7.5)
--- NOTE | 2018-10-25 20:31 | Hospitalist Progress Note ---
Date of Service October 25, 2018 Assessment & Plan (1) Toxic encephalopathy: again patient was mildly confused today. I strongly suspect this is due to ativan use. STOP ativan. patient adamant about getting something for sleep. I asked his family to purchase OTC melatonin. If they bring it in tonight will give 1mg at HS. avoid other sedatives, benzos, etc - especially in light of his abnormal LFTs. 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 Srivastava today - he is concerned the CHATA cavity is harboring recurrent infections and causing his failure to thrive he is suggesting that he create a surgical "flap" through the chest cavity to deal w/ this issue Dr. Srivastava to be formally consulted for his surgical opinion (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 due to shock liver once LFTs normalize can resume voriconazole (7) Elevated LFTs: improving repeat every 48 hrs (8) ATN (acute tubular necrosis): resolved (9) Severe protein-calorie malnutrition: ongoing concerning for recurrent cancer but none proven to be found fungal infection also likely contributing cont boost, etc (10) Small cell lung cancer: see discussion above (11) CKD stage 3 due to type 2 diabetes mellitus: creatinine stable (12) DM II (diabetes mellitus, type II), controlled: pharmacy managing hypoglycemia overnight - pharmacy to adjust regimen (13) COPD exacerbation: wean prednisone to 10mg today and Rx for 3 more days --- then stop (14) Hypotension: likely was cardiogenic in origin resolved (15) CAD (coronary artery disease): concern for STEMI at time of this admission s/p cath --- no culprit lesion found --- cath findings were felt to be chronic resume BB cont asa not statin candidate due to voriconazole use, abnormal LFTs, etc (16) DVT prophylaxis: heparin 5000 BID updated at bedside await Dr. Srivastava's consult I am moving patient to med/surg w/ tele in hopes he can have a more comfortable room to promote better sleep dispo - [place] Subjective patient again c/o lack of sleep overnight this is despite use of ativan at HS last night family again reports he is confused once again today - presumably due to the insomnia and/or ativan tele overnight stable I had a conversation with Dr. Srivastava and he feels that Mr. Aden may need a procedure on the CHATA lung cavity He feels that he may be having recurrent infection & failure to thrive because of this lung abnormality Constitutional: + fatigue and + weakness; no fever, no chills and no anorexia mouth discomfort better w/ magic mouthwash Respiratory: + dyspnea on exertion; no cough Cardiovascular: no orthopnea, no paroxysmal nocturnal dyspnea and no edema Gastrointestinal: no abdominal pain Physical Exam 2 Vital Signs (Past 24 Hours): Last Vital Signs Temp 36.8 C 10/25/18 18:52 Pulse 94 H 10/25/18 18:52 Resp 16 10/25/18 18:52 BP 100/65 10/25/18 18:52 Pulse Ox 97 10/25/18 18:52 Constitutional: + thin and + cachectic; no acute distress ENMT: external ear and nose normal, oropharynx normal Respiratory: no respiratory distress and does not use accessory muscles Auscultation: + diminished lung sounds (LLL); no rhonchi and no wheezes Cardiovascular: Rate/Rhythm: regular rate and regular rhythm Heart Sounds: normal S1, normal S2 and + murmur (1/6 LSB) Vessels: posterior tibial pulses present (<1+) and dorsalis pedis pulses present (<1+ ); no JVD Extremities: no edema Gastrointestinal (Abdomen): normal bowel sounds, soft, nontender, no hepatosplenomegaly Psychiatric: Orientation: alert, oriented to person and oriented to place; + not oriented to time Mood: + depressed mood mildly confused Results & Data Laboratory Results Laboratory Results - last 24 hr 10/24/18 10/25/18 10/25/18 23:56 03:59 05:28 WBC 10.77 RBC 3.32 L Hgb 9.2 L Hct 29.5 L MCV 88.9 MCH 27.7 MCHC 31.2 L RDW Std Deviation 65.3 H RDW Coeff of Molly 25.5 H Plt Count 162 MPV 11.9 H Absolute Nucleated RBC 0.12 H Nucleated RBC % (auto) 1.1 Sodium Potassium Chloride Carbon Dioxide Anion Gap BUN Creatinine Est Cr Clr Drug Dosing Est GFR ( Amer) Est GFR (Non-Af Amer) BUN/Creatinine Ratio Glucose POC Glucose 232 H 191 H Calcium Total Bilirubin AST ALT Alkaline Phosphatase Total Protein Albumin Globulin Albumin/Globulin Ratio Urine Color Urine Appearance Urine pH Ur Specific [place] Urine Protein Urine Glucose (UA) Urine Ketones Urine Blood Urine Nitrite Urine Bilirubin Urine Urobilinogen Ur Leukocyte Esterase Urine WBC (Auto) Urine RBC (Auto) U Hyaline Cast (Auto) U Epithel Cells (Auto) Urine Bacteria (Auto) 10/25/18 10/25/18 10/25/18 05:28 07:05 11:20 WBC RBC Hgb Hct MCV MCH MCHC RDW Std Deviation RDW Coeff of Molly Plt Count MPV Absolute Nucleated RBC Nucleated RBC % (auto) Sodium 135 L Potassium 4.0 D Chloride 101 Carbon Dioxide 27 Anion Gap 7.0 BUN 41 H Creatinine 1.27 Est Cr Clr Drug Dosing 37.5 Est GFR ( Amer) 64.1 Est GFR (Non-Af Amer) 55.3 BUN/Creatinine Ratio 32.6 H Glucose 249 H POC Glucose 210 H 228 H Calcium 8.3 L Total Bilirubin 0.9 AST 81 H ALT 403 H Alkaline Phosphatase 765 H Total Protein 6.3 L Albumin 2.4 L Globulin 3.9 Albumin/Globulin Ratio 0.6 L Urine Color Urine Appearance Urine pH Ur Specific [place] Urine Protein Urine Glucose (UA) Urine Ketones Urine Blood Urine Nitrite Urine Bilirubin Urine Urobilinogen Ur Leukocyte Esterase Urine WBC (Auto) Urine RBC (Auto) U Hyaline Cast (Auto) U Epithel Cells (Auto) Urine Bacteria (Auto) 10/25/18 10/25/18 10/25/18 16:20 16:23 16:43 WBC RBC Hgb Hct MCV MCH MCHC RDW Std Deviation RDW Coeff of Molly Plt Count MPV Absolute Nucleated RBC Nucleated RBC % (auto) Sodium Potassium Chloride Carbon Dioxide Anion Gap BUN Creatinine Est Cr Clr Drug Dosing Est GFR ( Amer) Est GFR (Non-Af Amer) BUN/Creatinine Ratio Glucose POC Glucose 61 L* 64 L* 86 Calcium Total Bilirubin AST ALT Alkaline Phosphatase Total Protein Albumin Globulin Albumin/Globulin Ratio Urine Color Urine Appearance Urine pH Ur Specific [place] Urine Protein Urine Glucose (UA) Urine Ketones Urine Blood Urine Nitrite Urine Bilirubin Urine Urobilinogen Ur Leukocyte Esterase Urine WBC (Auto) Urine RBC (Auto) U Hyaline Cast (Auto) U Epithel Cells (Auto) Urine Bacteria (Auto) 10/25/18 10/25/18 18:55 20:15 WBC RBC Hgb Hct MCV MCH MCHC RDW Std Deviation RDW Coeff of Molly Plt Count MPV Absolute Nucleated RBC Nucleated RBC % (auto) Sodium Potassium Chloride Carbon Dioxide Anion Gap BUN Creatinine Est Cr Clr Drug Dosing Est GFR ( Amer) Est GFR (Non-Af Amer) BUN/Creatinine Ratio Glucose POC Glucose 186 H Calcium Total Bilirubin AST ALT Alkaline Phosphatase Total Protein Albumin Globulin Albumin/Globulin Ratio Urine Color Yellow Urine Appearance Clear Urine pH 6.5 Ur Specific [place] 1.014 Urine Protein 1+ H Urine Glucose (UA) Negative Urine Ketones Negative Urine Blood Negative Urine Nitrite Negative Urine Bilirubin Negative Urine Urobilinogen Negative Ur Leukocyte Esterase Negative Urine WBC (Auto) 0 Urine RBC (Auto) 0-4 U Hyaline Cast (Auto) 5-10 H U Epithel Cells (Auto) 10-20 H Urine Bacteria (Auto) Negative _ (1) CAD (coronary artery disease) Associated angina: without angina Coronary Disease-Associated Artery/Lesion type: [place] artery [place] vs. transplanted heart: [place] heart Qualified Code (s): I25.10 - Atherosclerotic heart disease of [place] coronary artery without angina pectoris (2) DM II (diabetes mellitus, type II), controlled Chronic kidney disease stage: stage 3 (moderate) Diabetes mellitus complication detail: with chronic kidney disease Diabetes mellitus complication status: with kidney complications Diabetes mellitus termite technician insulin use: without termite technician use Diabetes mellitus macular edema: Diabetic retinopathy severity: Laterality: Proliferative retinopathy type: Qualified Code(s): E11.22 - Type 2 diabetes mellitus with diabetic chronic kidney disease; N18.3 - Chronic kidney disease, stage 3 (moderate) (3) Hypotension Hypotension type: other hypotension type Trimester: Qualified Code(s): I95.89 - Other hypotension
[2018-10-25] MEDS: MELATONIN SCH (22:08)
[2018-10-26] MEDS ORDERED: Nursing to Pharmacy Communication ONE (00:09)
[2018-10-26] MEDS ORDERED: HEPARIN 100 UNIT/ML 5ML FLUSH FLUSH PRN (00:37)
[2018-10-26] MEDS: HEPARIN 100 UNIT/ML 5ML FLUSH FLUSH SCH (00:54)
[2018-10-26] MEDS: POTASSIUM CHLORIDE 20 MEQ TABCR PO SCH ×2 (08:16→20:43)
[2018-10-26] MEDS: CEROVITE ADV FORMULA TAB PO SCH (08:17)
[2018-10-26] MEDS: predniSONE 10 MG TABLET PO SCH (08:17)
[2018-10-26] MEDS: ASPIRIN 81 MG ECTAB PO SCH (08:17)
[2018-10-26] MEDS: PANTOprazole 40 MG TAB PO SCH (08:17)
[2018-10-26] MEDS: FERROUS SULFATE 325 MG TAB PO SCH ×2 (08:17→20:43)
[2018-10-26] MEDS: FINASTERIDE 5 MG TAB PO SCH (08:17)
[2018-10-26] MEDS: FUROSEMIDE 40 MG TAB PO SCH ×2 (08:17→17:10)
[2018-10-26] MEDS: METOPROLOL TARTRATE 25 MG TAB PO SCH ×2 (08:17→20:43)
[2018-10-26] MEDS: MAGNESIUM OXIDE 400 MG TAB PO SCH (08:18)
[2018-10-26] MEDS: CYANOCOBALAMIN 500 MCG TABLET (VITAMIN B-12) PO SCH (08:18)
[2018-10-26] MEDS: DEXAMETHASONE CONC 3.75 MG, NYSTATIN 30 ML, DiphenhydrAMINE Syrup 300 MG, ORA-SWEET SYR... PO SCH ×4 (08:30→20:49)
[2018-10-26] MEDS: INSULIN ASPART 100 UNITS/ML 3 ML PEN SC SCH ×4 (08:31→20:48)
[2018-10-26] MEDS: INSULIN HUMAN NPH SC SCH (08:33)
[2018-10-26] MEDS: HEPARIN SOD 5,000 UNIT/0.5 ML VIAL SQ SCH ×2 (08:34→20:49)
[2018-10-26 09:40] LABS: BUN Creatinine Ratio 27.8 (10-20); Calcium 8.5 mg/dl (8.5-10.1); Creatinine Clr Calc Pharmacy 38.5 ml/min; Est GFR (African American) 67.3; Magnesium 1.9 mg/dl (1.8-2.4); Potassium 4.3 mmol/L (3.5-5.1)
--- NOTE | 2018-10-26 13:37 | Pharmacy Report ---
PHA: Glycemic Control AP - Date of Service October 26, 2018 - Assessment & Plan ASSESSMENT: * Mr. Aden is a 72 y/o M known to our service with well controlled T2DM on oral agents alone admitted 10/14 with respiratory failure 2nd HAP * Previous admissions suggest that patient's BSGs are labile with steroid involvement * Anticipate significant impact with prednisone taper * Patient has known history of severe AM hypoglycemia while on prednisone po daily * Cannot tolerate Lantus (effects of Lantus persist overnight and effects of prednisone administered in AM dissipate overnight) * Switched on NPH on 10/19. Will need to taper dose of NPH with steroid taper * Steroids tapered yesterday * Dose of NPH decreased and Novolog loosened slightly on 10/25 * Novolog tightened on 10/26 due to lunch time hyperglycemia PLAN * Insulin NPH 3 units SC QDB (while on prednisone 10 mg po qAM) * Novolog ACHS * Goal range: 120-150 mg/dL * Correction factor: 25 mg/dL/unit * Carb ratio: 7 g CHO/unit Pharmacy will continue to monitor patient daily and write orders per [facility] inpatient glycemic control protocol. Thanks. * Please note that the plan above was derived based on current level of insulin resistance and hospital stress. These recommendations are appropriate for inpatient admission only. Plan of care upon discharge will need to be reassessed to avoid potential outpatient hypo/hyperglycemia.
--- NOTE | 2018-10-26 16:45 | CT Scan Report ---
CT chest wo con CT DOSE: 195.48 mGy.cm HISTORY: CHATA cavitary lesion, recent pneumonia, evaluate for interval change TECHNIQUE: Multiaxial CT images of the chest were performed without contrast. A dose lowering techni que was utilized adhering to the principles of ALARA. COMPARISON: Chest CTA 10/14/2018. FINDINGS: There is severe emphysema. There is joint loss with near complete replacement of the left u pper lobe with a cavitary lesion. This demonstrates a thickened and slightly irregular wall. The cavi tary lesion is not significantly changed in size. The fluid level within the cavitary lesion has decr eased in size. There is direct communication of the cavitary lesion with a left upper lobe bronchus. Small left and trace right pleural effusions have improved. Small pericardial effusion persists. The aorta is normal in caliber. The heart is normal in size. A few mildly enlarged distal periaortic lymp h nodes remain unchanged. Dominant lymph node measures 1 cm. A few subcentimeter hypodense lesions wi thin the liver remain stable. The largest measures 1 cm. These are incompletely care chest on this no ncontrast study but favor cysts. Stable bilateral renal hypodense lesions which also statistically re present cysts. The left upper lobe consolidation/cavitary lesion also encases the left lobar pulmonar y arteries. No suspicious lytic or blastic osseous lesions. No pneumothorax. The trachea is patent. M ild left mediastinal shift due to the left upper lobe volume loss. Scattered linear scarlike densitie s within the lungs. Nodular thickening along the right major fissure. Near complete resolution of the bilateral groundglass and consolidative airspace opacities. There are few groundglass densities anne ining within the periphery of the right mid to lower lung zone. IMPRESSION: 1. Near complete resolution of the bilateral groundglass and consolidative airspace opacities compare d to the prior study. 2. Improvement in the bilateral pleural effusions. 3. There is no significant change in size of the left upper lobe cavitary lesion. The fluid level wit hin the cavitary lesion has almost completely resolved. This may represent an infectious process such as Aspergillus. A neoplastic process is also in the differential diagnosis. 4. Advanced emphysema. 5. Additional findings as described above. Electronically signed by: Guanaco Thompson M.D. 10/26/2018 4:43 PM
--- NOTE | 2018-10-26 16:47 | Cardiology Progress Note ---
Date of Service October 26, 2018 Assessment & Plan (1) Ischemic cardiomyopathy: Clinically he is improving. Renal function is stable. I think he would benefit from a daily dose of diuretic. I think 40 milligrams daily Lasix may suffice. He has been started back on half of his metoprolol. Hopefully we can increase his metoprolol to his usual outpatient dose. I would advocate restarting his spironolactone as well. I think the main issue currently is simply reconditioning. He is quite weak and is ambulated quite infrequently since his hospitalization. Dr. Paz will be available over the weekend for any questions concerning his care. I will return on Monday. (2) ST elevation (STEMI) myocardial infarction: Likely secondary to a chronically occluded diagonal branch. He does carry history of several interventions including PCI to the RCA x2 in February 2006, PCI to the LCX and OM in December 2007, and PCI to the D1 in November 2007. (3) Dyspnea: Much improved. On room air currently. (4) Bradycardia: Resolved. Occasional PVCs. (5) Ventricular tachycardia: No recurrent episodes. Started back on his metoprolol. Increase the dose as tolerated. Subjective This morning patient claims feeling better. He is quite tired yesterday and slept for a good portion of the day. He has ambulated to minimal degree. He denies dizziness currently. He denies any breathing difficulty currently. His appetite continues to be good. Physical Exam 2 Vital Signs (Past 24 Hours): Last Vital Signs Temp 36.4 C L 10/26/18 15:33 Pulse 87 10/26/18 15:38 Resp 20 10/26/18 15:33 BP 112/69 10/26/18 15:33 Pulse Ox 97 10/26/18 15:33 Physical Exam: The patient is alert and oriented. Mood and affect appeared normal. He answered all questions appropriately. HEENT: Pupils are equal and reactive to light and accommodation. Extraocular movements are intact. The sclerae are anicteric. Neuro: Cranial nerves intact Lungs: Clear apices. Good air movement without expiratory wheezing. Normal respiratory effort. Cardiac: Heart demonstrates a regular rate and rhythm with occasional ectopy. Pulses: The patient has palpable radial pulses bilaterally that are equal in intensity Extremities: There was no evidence of hypoperfusion. There is no cyanosis or clubbing. There is no edema. Skin: I did not appreciate any rashes on examination today. Results & Data Laboratory Results Abnormal Lab Results 10/25/18 10/25/18 10/25/18 16:20 16:23 16:43 Hgb Sodium Potassium Chloride Carbon Dioxide Anion Gap BUN Creatinine Est Cr Clr Drug Dosing Est GFR ( Amer) Est GFR (Non-Af Amer) BUN/Creatinine Ratio Glucose POC Glucose 61 L* 64 L* 86 Calcium Magnesium Urine Color Urine Appearance Urine pH Ur Specific [place] Urine Protein Urine Glucose (UA) Urine Ketones Urine Blood Urine Nitrite Urine Bilirubin Urine Urobilinogen Ur Leukocyte Esterase Urine WBC (Auto) Urine RBC (Auto) U Hyaline Cast (Auto) U Epithel Cells (Auto) Urine Bacteria (Auto) 10/25/18 10/25/18 10/26/18 18:55 20:15 05:01 Hgb Sodium Potassium Chloride Carbon Dioxide Anion Gap BUN Creatinine Est Cr Clr Drug Dosing Est GFR ( Amer) Est GFR (Non-Af Amer) BUN/Creatinine Ratio Glucose POC Glucose 186 H 165 H Calcium Magnesium Urine Color Yellow Urine Appearance Clear Urine pH 6.5 Ur Specific [place] 1.014 Urine Protein 1+ H Urine Glucose (UA) Negative Urine Ketones Negative Urine Blood Negative Urine Nitrite Negative Urine Bilirubin Negative Urine Urobilinogen Negative Ur Leukocyte Esterase Negative Urine WBC (Auto) 0 Urine RBC (Auto) 0-4 U Hyaline Cast (Auto) 5-10 H U Epithel Cells (Auto) 10-20 H Urine Bacteria (Auto) Negative 10/26/18 10/26/18 10/26/18 08:40 08:40 11:31 Hgb 10.2 L Sodium 134 L Potassium 4.3 Chloride 100 Carbon Dioxide 29 Anion Gap 5.0 BUN 34 H Creatinine 1.22 Est Cr Clr Drug Dosing 38.5 Est GFR ( Amer) 67.3 Est GFR (Non-Af Amer) 58.0 BUN/Creatinine Ratio 27.8 H Glucose 281 H POC Glucose 264 H Calcium 8.5 Magnesium 1.9 Urine Color Urine Appearance Urine pH Ur Specific [place] Urine Protein Urine Glucose (UA) Urine Ketones Urine Blood Urine Nitrite Urine Bilirubin Urine Urobilinogen Ur Leukocyte Esterase Urine WBC (Auto) Urine RBC (Auto) U Hyaline Cast (Auto) U Epithel Cells (Auto) Urine Bacteria (Auto) 10/26/18 16:32 Hgb Sodium Potassium Chloride Carbon Dioxide Anion Gap BUN Creatinine Est Cr Clr Drug Dosing Est GFR ( Amer) Est GFR (Non-Af Amer) BUN/Creatinine Ratio Glucose POC Glucose 241 H Calcium Magnesium Urine Color Urine Appearance Urine pH Ur Specific [place] Urine Protein Urine Glucose (UA) Urine Ketones Urine Blood Urine Nitrite Urine Bilirubin Urine Urobilinogen Ur Leukocyte Esterase Urine WBC (Auto) Urine RBC (Auto) U Hyaline Cast (Auto) U Epithel Cells (Auto) Urine Bacteria (Auto) _ (1) ST elevation (STEMI) myocardial infarction Involved coronary artery: unspecified coronary artery Qualified Code(s): I21.3 - ST elevation (STEMI) myocardial infarction of unspecified site (2) Dyspnea Dyspnea type: unspecified Qualified Code(s): R06.00 - Dyspnea, unspecified
--- NOTE | 2018-10-26 19:49 | Consultation Report ---
DATE OF CONSULTATION: 10/26/2018 REASON FOR CONSULTATION: Left upper lobe cavity. HISTORY OF PRESENT ILLNESS: Félix Aden is a patient who is very well known to me. More than 2-1/2 years ago, I diagnosed a small cell lung carcinoma in his left upper lobe with a navigational bronchoscopy and endobronchial ultrasound. He underwent chemotherapy and radiation and developed a large cavity where there was apparent lung and tumor necrosis. This communicates with the left mainstem bronchus. The patient is extremely interesting. I do not believe this patient has evidence of active malignant disease. However, this cavity is concerning for Aspergillus and communicates with his left mainstem bronchus. The left upper lobe is essentially gone. This cavity is a problem because it appears to me that this is causing contamination of not only the right lower lobe but the left lower lobe. He has been hospitalized multiple times with this and has been quite ill. He has other problems of course. He has very poor heart function, but a recent heart catheterization did not reveal any targets. He has had percutaneous transluminal angioplasties in the past. The patient was admitted on 10/14/2018 and had to be intubated due to his hypoxia and increasing respiratory insufficiency. He recovered from this and has been extubated and is getting ready to be transferred to an extended care facility. The patient's CAT scan from 10/14/2018 was compared to his CAT scan from 09/17/2018, and there was a tremendous difference in 27 days. The patient has terrible emphysema, especially in the right upper lobe; however, I see no evidence of metastatic disease. He now has infiltrates, which are dense in his right lung and his left base; however, again these were not present 4 weeks before his admission. He is now recovering. He does not sound nearly as bad. He has been eating. He is able to walk although he is very weak. I have been asked to comment from the surgical standpoint if we have anything to offer this patient. PAST MEDICAL HISTORY: 1. Small cell lung carcinoma. 2. Coronary artery disease. 3. Myocardial infarction. 4. Status post chemotherapy and radiation in 2016. 5. Peripheral vascular disease. 6. Hypertension. 7. Benign prostatic hyperplasia. 8. Hyperlipidemia. 9. Chronic renal insufficiency. 10. Diabetes mellitus. 11. Anemia. 12. Chronic obstructive pulmonary disease. 13. Severe bullous emphysema. PAST SURGICAL HISTORY: 1. Insertion of a Port-A-Cath. 2. Percutaneous transluminal angioplasty and stent. 3. Endobronchial ultrasound with biopsy. 4. Colonoscopy. ALLERGIES: No known drug allergies. MEDICATIONS: Multiple, please see chart. SOCIAL HISTORY: The patient has a very supportive family and lives with his . Patient has a history of 40 years of smoking. He quit more than 10 years ago. He occasionally has an alcoholic beverage. He is of course retired and worked at [employer]. FAMILY MEDICAL HISTORY: Mother had a history of diabetes mellitus. Father had coronary artery disease and at age 58. He is also a heavy drinker. He has a brother and a sister, they are healthy, and his children are healthy. REVIEW OF SYSTEMS: Patient has had intermittent hemoptysis. He was maintained on antiplatelet therapy after his cardiac stent, and this had to be modified, and the doses occasionally stopped or decreased because of his hemoptysis. He has lost weight, and he is not eating well. He was quite ill, quite short of breath, and is very weak, but he is definitely improved over the last 10 days. He denies chest pain per se or palpitations. He has a poor appetite and occasionally nauseated but denies vomiting or abdominal pain. He has no real wound breakdown. He denies any visual or auditory symptoms. He has had no neurologic symptoms such as amaurosis fugax or transient ischemic attacks. PHYSICAL EXAMINATION: GENERAL: This is a very thin, ill appearing male who stands 5 feet 7 inches tall and weighs about 105 pounds. HEENT: He has temporal wasting. His sclerae are pale but anicteric. He is missing some teeth. His tongue is midline. Oral mucosa is moist. I do not see evidence of candidiasis. His neck is thin but supple. I detect no carotid bruits. He has no lymphadenopathy. RESPIRATORY: Upon auscultation of his lungs, he has decreased breath sounds and has rhonchi in both bases. He has some rales in the right base more than the left but no wheezing today. He has no axillary adenopathy. He is quite thin. He has a well-healed left Port-A-Cath in place. GASTROINTESTINAL: His abdomen is flat, soft, nontender. He really does not have much in the way of peripheral edema. He has no skin breakdown. EXTREMITIES: He has no joint effusions. NEUROLOGICAL: He is quite weak but has no obvious focal deficits. ASSESSMENT AND PLAN: Persistent space following chemotherapy and radiation for small cell lung carcinoma. This is a difficult but interesting case. I do not believe this patient has evidence of active malignancy. I think he has responded to chemotherapy and radiation. I think the cavity in his left upper chest, which is all that remains of his destroyed left upper lobe, communicates directly to his mainstem bronchus and spills over causing contamination. We have discussed multiple ways to treat this, but there really is not a place for obstructing the bronchus. I have offered this patient an Elo[place]er flap of his anterior lateral left chest. We will remove 1 or 2 ribs so that we can get in and do dressing changes to clean this cavity up. This would prevent him from contaminating the rest of his lungs, and I think may afford us a way to keep him from contaminating his lungs. Eventually, this patient is going to get sick from this aspiration type problem, and he is not going to survive. I explained this quite frankly to the patient, his , and his daughter today. I would like to let him continue to improve. I have discussed his case with Dr. Ontiveros today. He is going to be transferred to [facility]. I will see him back in the office in the next week or two. We will obtain a CT scan to make sure that the acute changes noted on 10/14/2018 are resolving. When he is strong enough, we will bring him in electively for this case. [facility]ENTERJack
[2018-10-26] MEDS: MELATONIN SCH (20:41)
--- NOTE | 2018-10-26 22:24 | Hospitalist Progress Note ---
Date of Service October 26, 2018 Assessment & Plan (1) Toxic encephalopathy: resolved was likely due to ativan use at bedtime for several days continue OFF of ativan and other benzos (2) Acute on chronic systolic (congestive) heart failure: compensated resumed metoprolol 12.5mg BID and tolerating such change back to metoprolol succinate tomorrow - 12.5mg qam cont lasix but change to 40mg qam from BID dosing not an ELLI or ARB candidate due to hypotension (3) Multifocal pneumonia: resolved clinically completed full course of IV abx CT chest today with resolved infiltrates (4) Acute respiratory failure with hypoxia and hypercapnia: resolved (5) Cavitary lesion of lung: CHATA this was the prior location of his lung ca he had been receiving Rx for 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 Srivastava formally consulted today and has recommended Eloesser flap of the anterior lateral left chest to help prevent recurrent infections from his cavitation. CT chest was obtained at Dr. Srivastava's request tonight as well. The surgery would be done electively after this admission - timing uncertain, and of course he would need cardiology clearance for this. (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 due to shock liver once LFTs normalize can resume voriconazole (7) Elevated LFTs: improving repeat LFTs in the am (8) ATN (acute tubular necrosis): resolved (9) Severe protein-calorie malnutrition: ongoing concerning for recurrent cancer but none proven to be found fungal infection also likely contributing cont boost, etc (10) Small cell lung cancer: see discussion above Dr. Srivastava feels that there is no active cancer based on the most recent chest imaging (11) CKD stage 3 due to type 2 diabetes mellitus: creatinine stable (12) DM II (diabetes mellitus, type II), controlled: pharmacy managing hypoglycemia has resolved w/ insulin adjustments (13) COPD exacerbation: cont prednisone 10mg and stop on 10/27/18 (14) Hypotension: likely was cardiogenic in origin resolved (15) CAD (coronary artery disease): concern for STEMI at time of this admission s/p cath --- no culprit lesion found --- cath findings were felt to be chronic cont BB cont asa not statin candidate due to voriconazole use, abnormal LFTs, etc (16) DVT prophylaxis: heparin 5000 BID updated at bedside appreciate Dr. Srivastava's consult d/c to [facility] AM of 10/27/18 Subjective patient apparently slept better overnight during my afternoon visit he was taking a nap was present during my visit she reported he was more oriented today no confusion Dr. Srivastava evaluated the patient - plan is for surgery of the left lung but NOT during this admission Constitutional: no fever Respiratory: no cough and no dyspnea Cardiovascular: no chest pain, no dyspnea at rest, no orthopnea and no paroxysmal nocturnal dyspnea Gastrointestinal: no abdominal pain, no nausea and no vomiting Physical Exam 2 Vital Signs (Past 24 Hours): Last Vital Signs Temp 36.4 C L 10/26/18 19:03 Pulse 86 10/26/18 19:03 Resp 18 10/26/18 19:03 BP 89/59 L 10/26/18 19:03 Pulse Ox 98 10/26/18 19:03 Constitutional: + thin and + cachectic; no acute distress and not ill appearing eyes closed, sleeping ENMT: external ear and nose normal, oropharynx normal Respiratory: normal respiratory effort, lungs clear to auscultation no respiratory distress and does not use accessory muscles Auscultation: no rales, no rhonchi and no wheezes Cardiovascular: Rate/Rhythm: regular rate and regular rhythm Heart Sounds: normal S1, normal S2 and + murmur (1/6 LSB) Vessels: posterior tibial pulses present (<1+) and dorsalis pedis pulses present (<1+ ); no JVD Extremities: no edema Gastrointestinal (Abdomen): normal bowel sounds, soft, nontender, no hepatosplenomegaly Psychiatric: Orientation: alert and oriented x 3 Mood: + depressed mood Results & Data Laboratory Results Laboratory Results - last 24 hr 10/26/18 10/26/18 10/26/18 05:01 08:40 08:40 Hgb 10.2 L Sodium 134 L Potassium 4.3 Chloride 100 Carbon Dioxide 29 Anion Gap 5.0 BUN 34 H Creatinine 1.22 Est Cr Clr Drug Dosing 38.5 Est GFR ( Amer) 67.3 Est GFR (Non-Af Amer) 58.0 BUN/Creatinine Ratio 27.8 H Glucose 281 H POC Glucose 165 H Calcium 8.5 Magnesium 1.9 10/26/18 10/26/18 10/26/18 11:31 16:32 20:08 Hgb Sodium Potassium Chloride Carbon Dioxide Anion Gap BUN Creatinine Est Cr Clr Drug Dosing Est GFR ( Amer) Est GFR (Non-Af Amer) BUN/Creatinine Ratio Glucose POC Glucose 264 H 241 H 155 H Calcium Magnesium _ (1) CAD (coronary artery disease) Associated angina: without angina Coronary Disease-Associated Artery/Lesion type: [place] artery [place] vs. transplanted heart: [place] heart Qualified Code (s): I25.10 - Atherosclerotic heart disease of [place] coronary artery without angina pectoris (2) DM II (diabetes mellitus, type II), controlled Chronic kidney disease stage: stage 3 (moderate) Diabetes mellitus complication detail: with chronic kidney disease Diabetes mellitus complication status: with kidney complications Diabetes mellitus care home insulin use: without care home use Diabetes mellitus macular edema: Diabetic retinopathy severity: Laterality: Proliferative retinopathy type: Qualified Code(s): E11.22 - Type 2 diabetes mellitus with diabetic chronic kidney disease; N18.3 - Chronic kidney disease, stage 3 (moderate) (3) Hypotension Hypotension type: other hypotension type Trimester: Qualified Code(s): I95.89 - Other hypotension
[2018-10-27 06:53] LABS: Hematocrit (blood only) 32.7 % (42-52); Hemoglobin 10.2 g/dL (14.0-18.0); Mean Corpuscular Hgb Conc 31.2 g/dL (32-36); Mean Corpuscular Volume 88.9 fL (80-100); Mean Platelet Volume 11.2 fL (7.4-10.4); Platelet Count 170 K/uL (130-400); RDW Coefficient of Variation 24.7 % (11.5-14.5); RDW Standard Deviation 79.8 fL (36.4-46.3); Red Blood Count 3.68 M/uL (4.7-6.1); White Blood Count 7.63 K/uL (4.8-10.8)
[2018-10-27 07:30] LABS: Albumin Level 2.3 gm/dl (3.4-5.0); BUN Creatinine Ratio 29.8 (10-20); Calcium 8.6 mg/dl (8.5-10.1); Creatinine Clr Calc Pharmacy 39.4 ml/min; Est GFR (African American) 69.3; Est GFR (Non-African American) 59.8; Potassium 3.9 mmol/L (3.5-5.1)
[2018-10-27 07:33] LABS: Albumin Globulin Ratio 0.6 (0.9-2); Total Protein 6.3 gm/dl (6.4-8.2)
[2018-10-27] MEDS: PANTOprazole 40 MG TAB PO SCH (08:18)
[2018-10-27] MEDS: POTASSIUM CHLORIDE 20 MEQ TABCR PO SCH (08:18)
[2018-10-27] MEDS: CEROVITE ADV FORMULA TAB PO SCH (08:18)
[2018-10-27] MEDS: CYANOCOBALAMIN 500 MCG TABLET (VITAMIN B-12) PO SCH (08:19)
[2018-10-27] MEDS: FINASTERIDE 5 MG TAB PO SCH (08:19)
[2018-10-27] MEDS: FERROUS SULFATE 325 MG TAB PO SCH (08:19)
[2018-10-27] MEDS: ASPIRIN 81 MG ECTAB PO SCH (08:20)
[2018-10-27] MEDS: predniSONE 10 MG TABLET PO SCH (08:20)
[2018-10-27] MEDS: MAGNESIUM OXIDE 400 MG TAB PO SCH (08:20)
[2018-10-27] MEDS: HEPARIN SOD 5,000 UNIT/0.5 ML VIAL SQ SCH (08:23)
[2018-10-27] MEDS: INSULIN HUMAN NPH SC SCH (08:24)
[2018-10-27] MEDS: INSULIN ASPART 100 UNITS/ML 3 ML PEN SC SCH (08:27)
[2018-10-27] MEDS: DEXAMETHASONE CONC 3.75 MG, NYSTATIN 30 ML, DiphenhydrAMINE Syrup 300 MG, ORA-SWEET SYR... PO SCH (08:32)
[2018-10-27] MEDS ORDERED: METOPROLOL SUCC 25MG EXT REL TAB PO SCH (09:00)
[2018-10-27] MEDS ORDERED: FUROSEMIDE 40 MG TAB PO SCH (09:00)
--- NOTE | 2018-10-27 10:33 | Progress Note ---
DATE: 10/27/2018 Mr. Aden was seen today. He is very weak; however, he is on room air. His CT scan shows remarkable clearing of the infiltrates in his right and left lower lobe. I remain fairly convinced that this is due to contamination from this left upper lobe process spilling into his airways. We are definitely going to offer him an Eloesser flap of the left upper chest. We will allow him to be transferred to the assisted and in order for him to improve. I will see him back in the office in the next week or 2 and we will get him set up for this elective surgery.
--- NOTE | 2018-11-01 21:50 | Discharge Summary ---
Date of Service date of admission - 10/14/18 date of discharge - 10/27/18 Admission HPI Per Admitting Provider Patient is 72-year-old male with a significant past medical history of lung CA status post chemotherapeutic and radiation treatments who has had complications most recently including multiple rounds of recurrent pneumonia. Of which, the patient recently did have a LEFT upper lobe infection consistent with Aspergillus pneumonia. He has been on outpatient voriconazole for this, followed by Dr. Rodriguez with infectious disease. Patient had been doing well since his hospitalization in May when he was intubated for respiratory failure. His only other hospitalization since that time was an overnight stay in the beginning of September. His says that he felt short of breath for a few days, he had been outside doing some activities the past few days. Last night he woke up around 2am and told his to call the ambulance because he could not breath. His said that he had some cold symptoms the past few days as well. No fever or chills. In the emergency department, the patient was found to be acutely hypoxic and acidotic. He was intubated for airway protection and respiratory management. EKG was concerning for acute STEMI. Heart alert was called and the patient underwent emergent PTCA. Per personal protection specialist, the patient was found to have a chronically occluded diagonal vessel and patent LAD vessel. Overall, he felt as though this presentation was more consistent with cardiac strain pattern versus acute coronary process. CTA of the chest was obtained to rule out underlying PE diagnosis versus worsening pneumonia/CHF.. Principal Diagnosis acute hypoxic/hypercarbic respiratory failure Discharge Exam Constitutional + thin and + cachectic; no acute distress ENMT external ear and nose normal, oropharynx normal Respiratory normal respiratory effort, lungs clear to auscultation no respiratory distress and does not use accessory muscles Auscultation: no rales, no rhonchi and no wheezes Cardiovascular Rate/Rhythm: regular rate and regular rhythm Heart Sounds: normal S1, normal S2 and + murmur (1/6 LSB) Vessels: posterior tibial pulses present (<1+) and dorsalis pedis pulses present (<1+ ); no JVD Extremities: no edema Gastrointestinal (Abdomen) normal bowel sounds, soft, nontender, no hepatosplenomegaly Psychiatric Orientation: alert and oriented x 3 Mood: + depressed mood Discharge Data Allergies Allergy/AdvReac Type Severity Reaction Status Date / Time No Known Allergies Allergy Verified 10/14/18 04:23 Consultations 1. [facility] 2. palliative care 3. thoracic surgery 4. critical care 5. PT, OT Procedures Performed 1. cardiac catheterization - Myke Blainejuan josé TAYLOR IMPRESSION: 1. 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 2. Patent left anterior descending including mid stented segments beyond the diagonal branch. 3. Significant disease of a small ramus intermedius. 4. Patent circumflex and stented circumflex marginal, patent right coronary artery and mid stented segment. 5. No evidence of right ventricular infarct. 2. Bronchoscopy - Ayden Ling MD 1. Blood-tinged thick secretions were mainly situated at the takeoff of the right lower lobe bronchus and its branches. All suctioned to clear. Bronchial washing up to 40 mL was used. Retrieved most of it. 2. Distorted takeoff of the left upper lobe as well as the lingula. Also samples with suction after injecting 40 mL of BAL was retrieved for cytology. 3. The ET tube was very close to the manav, and adjusted 3 cm above the manav. 4. The bronchoscope after that was removed, no bleeding, no endobronchial lesions, airways looks better and specimen was sent for microbiology and cytology including fungal elements testing. Ordered Studies 1. CTA chest - 10/14/18 - IMPRESSION: 1. Cardiomegaly with pulmonary edema and trace bilateral pleural effusions. 2. Additional multifocal alveolar and groundglass opacities throughout the bilateral lungs suggest alveolar pulmonary edema with pneumonia or aspiration pneumonitis also considered. 3. Severe bullous emphysema with chronic fibrotic changes. 4. Prior left upper lobectomy with chronic cavitary focus of the left upper lung communicating with the left tracheobronchial tree. 2. CT chest - 10/26/18 - IMPRESSION: 1. Near complete resolution of the bilateral groundglass and consolidative airspace opacities compared to the prior study. 2. Improvement in the bilateral pleural effusions. 3. There is no significant change in size of the left upper lobe cavitary lesion. The fluid level within the cavitary lesion has almost completely resolved. This may represent an infectious process such as Aspergillus. A neoplastic process is also in the differential diagnosis. 4. Advanced emphysema. 3. liver ultrasound - IMPRESSION: 1. Contracted gallbladder resulting in suboptimal evaluation. No definite gallbladder wall thickening or gallstones. There may be trace pericholecystic fluid. However, the technologist reported a negative sonographic Hernandez's sign. 2. Hepatic and right renal cysts. Hospital Course (1) Acute respiratory failure with hypoxia and hypercapnia: At time of ER presentation on 10/14/18 the patient had significant respiratory distress due to pneumonia and acute/chronic systolic CHF. There was also concern of STEMI. The patient subsequently developed respiratory failure and was intubated in the ER by the ER attending. After intubation a heart alert was called due to concern of anterior wall STEMI. Following cardiac catheterization the patient was admitted to the ICU. The patient remained on the ventilator for about 24 hours then was successfully extubated on 10/15/18. He remained on NC O2 for a few more days and this was easily weaned off as his pneumonia/CHF were treated. (2) Acute on chronic systolic (congestive) heart failure: The patient had evidence of decompensated CHF in the setting of his pneumonia and other active issues. He received IV diuresis during the first half of his hospitalization. Transiently the patient had evidence of mild cardiogenic shock with development of lactic acidosis & acute kidney injury. This occurred on 10/18/18. Fortunately he never needed pressors or inotropic agents. Despite the above we were able to diurese the patient successfully down to his dry weight. At discharge we recommended metoprolol succinate 12.5mg qam as well as lasix 40mg qam. He is not a candidate for ELLI or ARB due to hypotension. He received extensive counseling on the importance of fluid/salt restriction, etc. Discharge weight was 51.2 kg. Most recent echo - 05/2018 - EF 15-20%. He should follow-up with his primary personal protection specialist, Dr. Dom Walter, within 1 week of discharge if possible. (3) CAD (coronary artery disease): At time of ER presentation there was concern for STEMI of the anterior wall. There were transient ST segment elevations in the anteroseptal leads on presenting EKG. A heart alert was called on the AM of 10/14/18, and Dr. Myke Dobbins took the patient to the construction or leak gang laborer. No occlusion or culprit lesion was found. Cath findings were felt to be chronic in nature. Peak troponin was 2.7. In light of the negative heart cath the troponin elevation was likely myocardial demand ischemia in the setting of his decompensated CHF and respiratory failure. The EKG findings ultimately resolved. He will continue on beta veronica and aspirin. He is NOT on statin therapy due to abnormal LFTs as well as previous voriconazole use (see below). (4) Elevated troponin: see 'CAD' above (5) Multifocal pneumonia: The patient received 7+ days of IV/PO antibiotics for a multifocal pneumonia. He received gram negative coverage due to recent hospitalization in early September. His pneumonia symptoms and signs resolved clinically as well as radiographically (CT chest on 10/27/18 showed considerable improvement in infiltrates). It is thought that he is a set-up for pneumonia due to the presence of the CHATA cavitary lesion (see below). The CHATA cavity communicates directly with his tracheobronchial tree. (6) Cavitary lesion of lung: CHATA. This was the prior location of his lung cancer. 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 The voriconazole, however, was placed on hold during this admission due to abnormal LFTs. The patient underwent bronchoscopy while in the ICU. Cytologies from the bronch were negative for recurrent cancer. The patient was seen in consult by Dr. Aguilar Srivastava who recommended Eloesser flap of the anterior lateral left chest to help prevent recurrent infections from this cavitation. The surgery would be done electively after this admission with timing uncertain , and of course he would need cardiology clearance for this procedure. Again the patient's voriconazole is on hold until LFTs normalize. Dr. Srivastava wishes to see the patient within 1 week of discharge. (7) Aspergillus fumigatus: Previously treated with voriconazole for fungal ball of the CHATA. The voriconazole was placed on hold due to shock liver/abnormal LFTs. Once LFTs normalize he can resume voriconazole. (8) Toxic encephalopathy: Resolved prior to discharge. This was likely due to ativan use. He will continue OFF of ativan and other benzos to avoid confusion. (9) Elevated LFTs: Likely due to transient cardiogenic shock causing "shock" liver. He will need repeat LFTs in 4-5 days after discharge to ensure normalization/ ongoing improvement. (10) ATN (acute tubular necrosis): Due to cardiorenal syndrome. Resolved. Peak creatinine was 1.8. Discharge creatinine was 1.1. (11) Severe protein-calorie malnutrition: ongoing issue. concerning for recurrent cancer but none proven to be found. fungal infection also likely contributing. I cannot rule out depression although patient adamantly denies such. continue boost, multivitamin, etc. (12) Small cell lung cancer: see discussion above. most recent chest imaging as well as cytologies from the bronchoscopy this admission failed to show any recurrent cancer. (13) CKD stage 3 due to type 2 diabetes mellitus: creatinine 1.1 at discharge. (14) DM II (diabetes mellitus, type II), controlled: His stay was complicated by hypoglycemia. However, low sugars resolved with insulin adjustments. He will resume metformin at discharge but STOP his sulfonylurea. (15) COPD exacerbation: He received a prednisone course. This was stopped on 10/27/18. (16) Hypotension: Likely cardiogenic in origin. Was transient/brief and resolved with supportive care. No pressors or inotropes were needed. (17) Complex care coordination: The patient was seen by the palliative care team in light of his complicated history and numerous active issues/problems. The patient declined any palliative care or desire for hospice. He wished to continue routine, ongoing treatment and also voiced a desire to undergo any necessary surgery/treatment for his various ailments. He remains a full code. Total Time Total Time Spent Total Time Spent (In Minutes): 50 Total Time Includes: Examination of the Patient, Discharge Planning and Medication Reconciliation Discharge Plan Discharge Items Patient Disposition: Transfer Assisted Fac Reason For Visit: ACUTE RESPIRATORY FAILURE W/ HYPOXIA & HYPERCAPNEA Discharge Diagnosis: acute respiratory failure due to CHF (congestive heart failure) and pneumonia Discharge Goals: Diagnostic testing, Learn about illness and Therapeutic intervention Activity: As commented below Activity Comment: no strenuous activities; light activity TOLERATED Non-emergency contact: Primary Care Provider and [facility] Call non-emergency contact if: you have any medication questions and your temperature is above 100.5 Follow-up/Referrals: Dom Walter MD [Physician] - (see Dr. Walter, cardiology, within 5-7 days (or one of his partners)) Aguilar Srivastava MD, FACS [Surgeon] - (see Dr. Srivastava within 1 week of discharge ) Diet: Carb Consistent or DM2 and Low Sodium (2gm) Fluids: 1800ml (7 cups) Diet Texture: Dental soft (bite-sized) Addtl Provider Instructions: From Irene Escobedoist - Congestive heart failure instructions - Patient with ejection fraction of 15%. Call 911 and go to the Emergency Room if: * You have tightness or pain in your chest that does not go away with rest or Nitroglycerin * You are very short of breath even with rest Call your doctor if any of the following symptoms or problems start or get worse: * Shortness of breath or difficulty breathing * Wake up at night short of breath * Chest pain * Cough * Swelling of your hands, fee, or legs * More fatigued or tired with your normal activity * Palpitations - sudden fast heart beats WEIGHT * Weigh yourself every morning after using the bathroom. * Use the same scale. * Wear the same amount of clothing. * Write your weight down on your chart. * Call your doctor if you gain more than 2-3 pounds in 1-2 days. MEDICATIONS * Use this discharge instruction sheet for instructions. * Take your medications at the time your doctor ordered. * Do not skip a dose of your medicines. * If you miss a dose of medicine, take as soon as possible, but DO NOT DOUBLE A DOSE. * Read your medicine information when you get home. * Know all of the side effects of your medicine. * Call your doctor's office if you have any side effects. * Be sure all of your doctors know what medicine and herbs you take (including cold, flu, and herbal medicine). * Pain Medicine: If you do not get relief from your pain, please call your doctor for help. Take the following with you to your follow-up doctor appointments: * Weight Chart * Medication List * List of questions 1. Check daily weights on same standing scale. Notify medical record retrieval specialist of any weight gain of more than 2-3 pounds in 1-2 days. 2. Check CBC and BMP along with magnesium in 4-5 days for stability. 3. Check LFTs (hepatic function panel) in 4-5 days. Report all lab results to medical record retrieval specialist. 4. Follow-up - * see Dr. Walter - Cardiology - 5-7 days. * see Dr. Srivastava - thoracic surgery - within 1 week. 5. Check fingerstick blood sugars before meals and bedtime. Notify medical record retrieval specialist if blood sugars are consistently higher than 200. 6. Return to [facility] if - * fever greater than 100.5 degrees * worsening shortness of breath * chest pain or need for nitroglycerin * any other concerns Prescriptions: New furosemide 40 mg Tablet 40 mg PO QAM Qty: 30 RF: 2 potassium chloride [Klor-Con M20] 20 mEq Tablet,Er Particles/Crystals 20 meq PO QAM Qty: 30 RF: 2 cyanocobalamin (vitamin B-12) [Vitamin B-12] 500 mcg Tablet 1,000 mcg PO QAM Qty: 30 RF: 11 melatonin 1 mg tablet 1 mg PO HS Qty: 30 RF: 2 nut.tx.gluc intol,lf,soy-fiber [Boost Glucose Control] 0.06-1.1 gram-kcal/mL liquid 1 ea PO TIDM Qty: 6399 RF: 2 nitroglycerin 0.4 mg tablet, sublingual 0.4 mg Sublingual Q5M PRN (Reason: chest pain) Qty: 30 RF: 0 Continue ferrous sulfate 325 mg (65 mg iron) Tablet 325 mg PO Q12 RF: 0 finasteride 5 mg Tablet 5 mg PO QAM RF: 0 magnesium oxide 400 mg magnesium Tablet 400 mg PO QAM RF: 0 metformin 1,000 mg tablet 1,000 mg PO BID RF: 0 multivitamin with minerals [Multiple Vitamin-Minerals] Tablet 1 tab PO DAILY RF: 0 pantoprazole 40 mg Tablet,Delayed Release (Dr/Ec) 40 mg PO DAILY RF: 0 aspirin 81 mg Tablet,Chewable 81 mg PO QAM RF: 0 Changed metoprolol succinate 25 mg Tablet Extended Release 24 Hr 12.5 mg PO QAM Qty: 30 RF: 11 Discontinued glipizide 5 mg tablet 5 mg PO QAM RF: 0 spironolactone 25 mg Tablet 25 mg PO Q OTHER DAY RF: 0 voriconazole 200 mg tablet 200 mg PO BID 30 Days Qty: 60 RF: 2 Stand-Alone Forms: My [facility] Discharge Orders: Discharge Order (Routine); Ordered 10/27/18 Ordered By: Jace Ontiveros Skilled Items Patient informed of condition?: Yes DNR: No Discharge Level of Care: Skilled Communicable Disease: No Discharge Prognosis: Deteriorating Admission Data Admit Date/Time: 10/14/18 05:59 Attending Provider: Jace Ontiveros Admit Provider: Jose Antonio Curry Primary Care Provider: Robert Vera Other Providers: Christiano Woo ; Ayden Ling ; Robert Chaudhry ; Annabella Briceno ; Aguilar Srivastava Service: Telemetry Other Interventions: Discharge Summary Assessment (RN) Last Done: 10/27/18 10:36 Pending Studies at Discharge: No DC Date/Time DO NOT enter until pt leaves facility: 10/27/18 11:10
== END 2018-10-27 11:10 | DRG 853 ==
LOC: ED 03:30 → 1E 04:27 → SUATTDRO 05:59 → 1E 05:59 → 2E 10-16 11:33 → 2W 10-25 16:22

== ENCOUNTER 2018-11-11 13:22 | Inpatient (IN) ==
[2018-11-11] MEDS ORDERED: ALBUT/IPRATROP 3MG/0.5MG NEB 3 ML VIAL NEB STA ×2 (13:50→15:02)
--- NOTE | 2018-11-11 14:16 | XRay Report ---
XR chest 1V portable CLINICAL HISTORY: 72 years-old Male presenting with sob. TECHNIQUE: Portable upright AP view of the chest was obtained. COMPARISON: 10/20/2018. FINDINGS: Left subclavian Mediport terminates in the superior cavoatrial junction. Cardiac silhouette mildly en larged. Atherosclerosis of aortic arch. The underlying left upper lobe cavitary lesion is now well de monstrated though there is patchy left lung opacity and left lung volume loss. Relative radiolucency of the right upper lung. Dense opacity in the right lung base has increased from prior. Mild pleural thickening and/or trace right pleural effusion. Osseous structures normal. IMPRESSION: 1. Increased density of the right lower lung compatible with worsening infiltrate/pneumonia or aspir ation. 2. Left upper lobe cavitary lesion better demonstrated on recent chest CT from 10/26/2018. 3. Emphysema. Electronically signed by: Jeffrey Frances M.D. 11/11/2018 2:15 PM
[2018-11-11 14:22] LABS: Basophils # (auto) 0.01 K/uL (0-0.2); Basophils % (auto) 0.1 %; Eosinophils # (auto) 0.04 K/uL (0-0.5); Eosinophils % (auto) 0.6 %; Hematocrit (blood only) 32.8 % (42-52); Hemoglobin 10.5 g/dL (14.0-18.0); Immature Granulocytes # (auto) 0.11 K/uL (0.00-0.02); Immature Granulocytes % (auto) 1.6 %; Lymphocytes # (auto) 0.43 K/uL (1.2-3.4); Lymphocytes % (auto) 6.2 %; Mean Corpuscular Volume 88.2 fL (80-100); Mean Platelet Volume 10.2 fL (7.4-10.4); Monocytes # (auto) 1.44 K/uL (0.11-0.59); Monocytes % (auto) 20.6 %; Neutrophils # (auto) 4.95 K/uL (1.4-6.5); Neutrophils % (auto) 70.9 %; Platelet Count 403 K/uL (130-400); RDW Standard Deviation 68.1 fL (36.4-46.3); Red Blood Count 3.72 M/uL (4.7-6.1); White Blood Count 6.98 K/uL (4.8-10.8)
[2018-11-11 14:40] LABS: Alanine Aminotransferase 24 U/L (12-78); Albumin Level 2.5 gm/dl (3.4-5.0); Aspartate Aminotransferase 12 U/L (15-37); BUN Creatinine Ratio 21.4 (10-20); Blood Urea Nitrogen 21 mg/dl (7-18); Calcium 8.8 mg/dl (8.5-10.1); Carbon Dioxide 24 mmol/L (21-32); Chloride 100 mmol/L (98-107); Est GFR (African American) 85.6; Est GFR (Non-African American) 73.8; Glucose 232 mg/dl (70-99); Magnesium 1.7 mg/dl (1.8-2.4); Potassium 4.6 mmol/L (3.5-5.1); Sodium 131 mmol/L (136-145)
[2018-11-11 14:45] LABS: Albumin Globulin Ratio 0.5 (0.9-2); Alkaline Phosphatase 173 U/L (45-117); Bilirubin,Total 0.6 mg/dl (0.2-1); Globulin 4.6 gm/dl (2.5-4.0); NT Pro B Type Natriuretic Pept 15041 pg/ml (0-900); Total Protein 7.1 gm/dl (6.4-8.2); Troponin I 0.019 ng/ml (0-0.045)
[2018-11-11 15:06] LABS: Anisocytosis Present
[2018-11-11] MEDS ORDERED: PIPERACILL/TAZOBAC CONSULT ACTIVE PRN ×2 (16:08→19:58)
[2018-11-11] MEDS ORDERED: FUROSEMIDE 40 MG/4 ML VIAL IV STA (16:08)
[2018-11-11] MEDS ORDERED: MAGNESIUM SULFATE / D5W 1 GM/100 ML BAG IV ONE (16:08)
[2018-11-11] MEDS ORDERED: PIPERACILLIN/TAZOBACTAM 4.5 GM/120 ML BAG IV ONE (16:08)
[2018-11-11] MEDS ORDERED: VANCOMYCIN CONSULT ACTIVE ONE (16:08)
[2018-11-11] MEDS ORDERED: VANCOMYCIN HCL 1,000 MG in SODIUM CHLORIDE 0.9% 500 ML IV ONE (16:08)
[2018-11-11] MEDS ORDERED: VANCOMYCIN CONSULT ACTIVE PRN ×2 (16:08→19:58)
[2018-11-11] MEDS ORDERED: SODIUM CHLORIDE 0.9% 1000ML 500 ML IV ONE (16:51)
[2018-11-11] MEDS ORDERED: methylPREDNISolone 125 MG/2 ML VIAL IV STA (16:56)
--- NOTE | 2018-11-11 18:00 | History & Physical Report ---
Date of Service November 11, 2018 Assessment & Plan (1) Acute respiratory failure with hypoxia: This patient is a 72-year-old male with a history of severe ischemic cardiomyopathy and chronic systolic CHF, Aspergillus pulmonary infection, cavitary lesion of the left upper lobe, small cell lung cancer, CAD, PAD, HL, COPD, HTN, BPH status post TURP, anemia, CKD stage III, and DM 2, with recent prolonged hospitalization after a STEMI and ventilator dependent respiratory failure with subsequent acute kidney injury and cardiogenic shock. He presents to the ER today with worsening shortness of breath and was found to be hypoxic in the 80s. He was just discharged from the shelter 3 days ago. Review of the discharge medication list shows that his Lasix was decreased from 40 mg once daily after discharge here several weeks ago, and is now down to 20 mg every other day. The patient reports he has gained 8 pounds since his discharge from here. This is corresponded with his progressively worsening shortness of breath. He denies abdominal pain or distention, no diarrhea, denies lower extremity edema. He denies increased cough or sputum production, denies hemoptysis. In the ER, he was thought to be in acute CHF and was given IV Lasix shortly after initially being given a fluid bolus of 500 mL's of normal saline. His chest x-ray showed a worsening right lower lobe infiltrate from previous x- ray. He was afebrile and did not have a leukocytosis, but he was tachycardic and was given vancomycin and Zosyn to cover for pneumonia. He will be admitted for acute on chronic systolic CHF and recurrent right lower lobe pneumonia. -Admit to telemetry -Continue supplemental O2 and wean as tolerated keep pulse ox greater than 90% -Diuresing as below -Treating for pneumonia as below (2) Acute on chronic systolic (congestive) heart failure: Has gained 8 pounds since discharge a few weeks ago likely secondary to decreased dose of Lasix changed at the shelter. He was discharged from here on Lasix 40 mg p.o. once daily and came in on 20 mg p.o. every other day Has a severely reduced LVEF of 15% Ischemic cardiomyopathy Lactate is elevated secondary to heart failure -Start Lasix 40 mg IV twice daily -Follow BMP and replace electrolytes as needed -Strict I's and O's, daily weights, fluid restriction 1800 mL's per day, low- sodium diet -Consult cardiology for further recommendations (3) CAD (coronary artery disease): With a history of 7 stents in the past Had STEMI on most recent admission but was taken to the [facility] and had a chronic occlusion and no stents were placed -Continue aspirin, metoprolol -Can add statin back on as his LFTs have all returned to normal (4) PVD (peripheral vascular disease): Patient denies claudication symptoms of legs but he clearly has PAD given his poor pulses on exam. -Restarting statin as above -Continue aspirin (5) HTN (hypertension): No longer has hypertension due to poor cardiac output with severe CHF -Remains on metoprolol for his CHF and a low dose (6) BPH (benign prostatic hyperplasia): -Continue finasteride (7) HLD (hyperlipidemia): -Restarting statin as above none the LFTs have normalized from previous shock liver (8) Anemia: Previously in the 7-8 range on last admission, currently at 10.5 which is much improved. Thought to be multifactorial due to multiple hospitalizations, fungal infection , and heart failure can cause anemia of chronic disease ferritin level is elevated c/w acute phase reactant. B12 level was low normal in the 300s last admission-continue supplement -continue FeSO4 325mg po bid -Has a history of flash pulmonary edema with blood transfusion requiring intubation -Follow CBC (9) CKD stage 3 due to type 2 diabetes mellitus: Creatinine is at baseline at 1.00 Avoid nephrotoxins -Renally dose medications as appropriate (10) COPD (chronic obstructive pulmonary disease): I do not believe the shortness of breath today is a COPD exacerbation He was given 1 dose of IV Solu-Medrol 60 mg in the ER-I do not think he needs to continue on steroids at this time -Can use albuterol as needed (11) DM II (diabetes mellitus, type II), controlled: Last hemoglobin A1c in 09/2018 is very well controlled at 6.7% -Hold home metformin -Sliding scale insulin -Accu-Cheks q. before meals at bedtime (12) Pneumonia: With worsening right lower lobe infiltrate similar to previous site of infection. Thoracic surgery thought that this was spilling from the connection of his left mainstem bronchus to his left upper lobe cavitary lesion and was recommending a procedure to correct this. -He is not febrile, no leukocytosis, no productive cough, however radiographically is worsened. -Continue Zosyn, vancomycin for now Pro-calcitonin is negative Check MRSA swab and discontinue vancomycin if negative -Await thoracic surgery consultation to see about further plans. (13) Aspergillus fumigatus: Previously on voriconazole since 08/2018., but then on HOLD since 10/19 for elevated LFTs fungal ball, left lung. repeat bronch last admission with repeat fungal cultures, AFB, cytologies, etc. thus far all cx's negative. path from the [facility] negative for malignant cells and thoracic surgery does not feel that he has a recurrence of cancer in this region -We will hold off on restarting voriconazole for now -Consider ID consultation to determine if needs to be back on it (14) Small cell lung cancer: History of this in the left upper lobe. initial diagnosis in 2015, s/p resection around that time, of CH[facility]. Thoracic surgery does not feel that the cavitary lesion left upper lobe is consistent with a recurrence of cancer -Follow (15) DVT prophylaxis: SQ heparin ordered Disposition-admit to telemetry Case management consult placed History of Present Illness Chief Complaint: Shortness of breath Primary Care Provider: Charles Vera MD This patient is a 72-year-old male with a history of severe ischemic cardiomyopathy and chronic systolic CHF, Aspergillus pulmonary infection, cavitary lesion of the left upper lobe, small cell lung cancer, CAD, PAD, HL, COPD, HTN, BPH status post TURP, anemia, CKD stage III, and DM 2, with recent prolonged hospitalization after a STEMI and ventilator dependent respiratory failure with subsequent acute kidney injury and cardiogenic shock. He presents to the ER today with worsening shortness of breath and was found to be hypoxic in the 80s. He was just discharged from the shelter 3 days ago. Review of the discharge medication list shows that his Lasix was decreased from 40 mg once daily after discharge here several weeks ago, and is now down to 20 mg every other day. The patient reports he has gained 8 pounds since his discharge from here. This is corresponded with his progressively worsening shortness of breath. He denies abdominal pain or distention, no diarrhea, denies lower extremity edema. He denies increased cough or sputum production, denies hemoptysis. In the ER, he was thought to be in acute CHF and was given IV Lasix shortly after initially being given a fluid bolus of 500 mL's of normal saline. His chest x-ray showed a worsening right lower lobe infiltrate from previous x- ray. He was afebrile and did not have a leukocytosis, but he was tachycardic and was given vancomycin and Zosyn to cover for pneumonia. He will be admitted for acute on chronic systolic CHF and recurrent right lower lobe pneumonia Allergies Allergy/AdvReac Type Severity Reaction Status Date / Time No Known Allergies Allergy Verified 11/11/18 15:07 Home Medications Home Medications Medication Instructions Recorded Confirmed Type ferrous sulfate 325 mg PO BID 09/17/18 11/11/18 History finasteride 5 mg PO QAM 09/17/18 11/11/18 History magnesium oxide 400 mg PO QAM 09/17/18 11/11/18 History metformin 1,000 mg PO BID 09/17/18 11/11/18 History multivitamin with minerals 1 tab PO QAM 09/17/18 11/11/18 History [Multiple Vitamin-Minerals] pantoprazole 40 mg PO QAM 09/17/18 11/11/18 History aspirin 81 mg PO QAM 10/14/18 11/11/18 History cyanocobalamin (vitamin B-12) 1,000 mcg PO QAM #30 tab 10/27/18 11/11/18 Rx [Vitamin B-12] melatonin 1 mg PO HS #30 tab 10/27/18 11/11/18 Rx metoprolol succinate 12.5 mg PO QAM #30 tab 10/27/18 11/11/18 Rx nitroglycerin 0.4 mg SUBLINGUAL Q5M PRN #30 tab 10/27/18 11/11/18 Rx nut.tx.gluc intol,lf,soy-fiber 1 ea PO TIDM #6399 ml 10/27/18 11/11/18 Rx [Boost Glucose Control] furosemide [Lasix] 20 mg PO Q OTHER DAY 11/11/18 11/11/18 History insulin aspart U-100 [Novolog 0 sliding scale dose SUBCUT ACHS 11/11/18 History Flexpen U-100 Insulin] potassium chloride [Klor-Con M20] 20 meq PO Q OTHER DAY 11/11/18 11/11/18 History Past Med/Surg History Medical History Aspergillus fumigatus Acute on chronic systolic (congestive) heart failure NC (myocardial infarction) (Resolved) Small cell lung cancer (Acute 01/27/16) "DIAGNOSIS: Lung, [facility], small cell lung carcinoma, [id number], stage IIIA TREATMENT: 1. Status post completion of combined radiation and chemotherapy. Radiation completed 05/02/2016 received 7000 cGy 2. 2 addition cycles of cisplatin/etoposide - Dr. Jeffery Ash" On 05/09/16 13:18 Beatris Curiel wrote "DIAGNOSIS: Lung, [facility], small cell lung carcinoma, [id number], stage IIIA, limited stage Status post completion of combined radiation and chemotherapy. Radiation completed 05/02/2016 received 7000 cGy" On 05/09/16 12:53 Beatris Curiel wrote "DIAGNOSIS: Lung, [facility], small cell lung carcinoma, [id number], stage IIIA, limited stage Status post completion of combined radiation and chemotherapy. Radiation completed 05/01/2016 received 7000 cGy" On 02/23/16 13:12 Jacinta Poole wrote "DIAGNOSIS: Lung, [facility], small cell lung carcinoma, [id number], stage IIIA, limited stage" CAD (coronary artery disease) PVD (peripheral vascular disease) Hx of myocardial infarction HTN (hypertension) BPH (benign prostatic hyperplasia) HLD (hyperlipidemia) Anemia CKD stage 3 due to type 2 diabetes mellitus COPD (chronic obstructive pulmonary disease) DM II (diabetes mellitus, type II), controlled Consolidation lung Left upper lobe pneumonia Pneumonia Surgical History History of transurethral resection of prostate History of heart artery stent (Chronic) Family History Other Diabetes Heart disease Social History marital status: Current Living Situation: Spouse current occupational status: retired Other Information That Helps Us Care for You: No Feels Safe at Home: Yes Safety Concerns: Feels Safe At This Time Smoking Status: Former smoker Do You Dip or Chew Tobacco: No Second Hand Exposure: No Tobacco Cessation Education Requested by Patient: No Hx Alcohol Use: No Hx Substance Use: No Beliefs That Will Affect Care: None Preferred Language: Guyanese Communication Ability: Effective Java Swing Developer Required: No Review of Systems All systems reviewed & are unremarkable except as noted in HPI & below Physical Exam 2 Vital Signs (Past 24 Hours): Last Vital Signs Temp 36.3 C L 11/11/18 13:27 Pulse 119 H 11/11/18 17:36 Resp 26 H 11/11/18 17:36 BP 104/70 11/11/18 17:36 Pulse Ox 93 11/11/18 17:36 Constitutional: WD/WN, vitals as above (Appears chronically ill) no acute distress Eyes: PERRL, conjunctivae normal, anicteric sclerae ENMT: external ear and nose normal, oropharynx normal Neck: trachea midline, no thyromegaly Respiratory: normal respiratory effort Auscultation: + crackles (At the right lower lung field) and + bronchovesicular breath sounds (At the left upper lung field) Cardiovascular: RRR, no murmur, no edema Vessels: + JVD Gastrointestinal (Abdomen): normal bowel sounds, soft, nontender, no hepatosplenomegaly Musculoskeletal: Extremities: extremities normal to inspection; no cyanosis and no clubbing Skin: no rashes, warm and dry Neurologic: moves all extremities and awake; no focal motor deficits Psychiatric: A+Ox3, euthymic affect Results & Data Laboratory Results 11/11/18 11/11/18 11/11/18 Range/Units 20:11 18:18 16:48 WBC (4.8-10.8) K/uL RBC (4.7-6.1) M/uL Hgb (14.0-18.0) g/dL Hct (42-52) % MCV (80-100) fL MCH (25-34) pg MCHC (32-36) g/dL RDW Std Deviation (36.4-46.3) fL RDW Coeff of Molly (11.5-14.5) % Plt Count (130-400) K/uL MPV (7.4-10.4) fL Immature Gran % (Auto) % Neut % (Auto) % Lymph % (Auto) % [place] % (Auto) % Eos % (Auto) % Baso % (Auto) % Immature Gran # (Auto) (0.00-0.02) K/uL Neut # (Auto) (1.4-6.5) K/uL Lymph # (Auto) (1.2-3.4) K/uL [place] # (Auto) (0.11-0.59) K/uL Eos # (Auto) (0-0.5) K/uL Baso # (Auto) (0-0.2) K/uL Anisocytosis Sodium (136-145) mmol/L Potassium (3.5-5.1) mmol/L Chloride (98-107) mmol/L Carbon Dioxide (21-32) mmol/L Anion Gap (3-11) BUN (7-18) mg/dl Creatinine (0.6-1.4) mg/dl Est Cr Clr Drug Dosing Est GFR ( Amer) Est GFR (Non-Af Amer) BUN/Creatinine Ratio (10-20) Glucose (70-99) mg/dl POC Glucose 225 H (70-99) POC Lactic Acid Oscar 3.34 H (0.90-1.70) mmol/L Lactate 4.2 H* (0.4-2.0) mmol/L Calcium (8.5-10.1) mg/dl Magnesium (1.8-2.4) mg/dl Total Bilirubin (0.2-1) mg/dl AST (15-37) U/L ALT (12-78) U/L Alkaline Phosphatase (45-117) U/L Troponin I (0-0.045) ng/ml NT-Pro-B Natriuret Pep (0-900) pg/ml Total Protein (6.4-8.2) gm/dl Albumin (3.4-5.0) gm/dl Globulin (2.5-4.0) gm/dl Albumin/Globulin Ratio (0.9-2) Procalcitonin (0-0.5) ng/ml 11/11/18 11/11/18 11/11/18 Range/Units 14:15 14:15 14:15 WBC 6.98 (4.8-10.8) K/uL RBC 3.72 L (4.7-6.1) M/uL Hgb 10.5 L (14.0-18.0) g/dL Hct 32.8 L (42-52) % MCV 88.2 (80-100) fL MCH 28.2 (25-34) pg MCHC 32.0 (32-36) g/dL RDW Std Deviation 68.1 H (36.4-46.3) fL RDW Coeff of Molly 21.0 H (11.5-14.5) % Plt Count 403 H (130-400) K/uL MPV 10.2 (7.4-10.4) fL Immature Gran % (Auto) 1.6 % Neut % (Auto) 70.9 % Lymph % (Auto) 6.2 % [place] % (Auto) 20.6 % Eos % (Auto) 0.6 % Baso % (Auto) 0.1 % Immature Gran # (Auto) 0.11 H (0.00-0.02) K/uL Neut # (Auto) 4.95 (1.4-6.5) K/uL Lymph # (Auto) 0.43 L (1.2-3.4) K/uL [place] # (Auto) 1.44 H (0.11-0.59) K/uL Eos # (Auto) 0.04 (0-0.5) K/uL Baso # (Auto) 0.01 (0-0.2) K/uL Anisocytosis Present Sodium 131 L (136-145) mmol/L Potassium 4.6 (3.5-5.1) mmol/L Chloride 100 (98-107) mmol/L Carbon Dioxide 24 (21-32) mmol/L Anion Gap 7.0 (3-11) BUN 21 H (7-18) mg/dl Creatinine 1.00 (0.6-1.4) mg/dl Est Cr Clr Drug Dosing Not Reportable Est GFR ( Amer) 85.6 Est GFR (Non-Af Amer) 73.8 BUN/Creatinine Ratio 21.4 H (10-20) Glucose 232 H (70-99) mg/dl POC Glucose (70-99) POC Lactic Acid Oscar (0.90-1.70) mmol/L Lactate (0.4-2.0) mmol/L Calcium 8.8 (8.5-10.1) mg/dl Magnesium 1.7 L (1.8-2.4) mg/dl Total Bilirubin 0.6 (0.2-1) mg/dl AST 12 L (15-37) U/L ALT 24 (12-78) U/L Alkaline Phosphatase 173 H (45-117) U/L Troponin I 0.019 (0-0.045) ng/ml NT-Pro-B Natriuret Pep 19498 H (0-900) pg/ml Total Protein 7.1 (6.4-8.2) gm/dl Albumin 2.5 L (3.4-5.0) gm/dl Globulin 4.6 H (2.5-4.0) gm/dl Albumin/Globulin Ratio 0.5 L (0.9-2) Procalcitonin 0.15 (0-0.5) ng/ml Diagnostic Findings Chest x-ray image personally reviewed by me and agree with the following report: XR chest 1V portable CLINICAL HISTORY: 72 years-old Male presenting with sob. TECHNIQUE: Portable upright AP view of the chest was obtained. COMPARISON: 10/20/2018. FINDINGS: Left subclavian Mediport terminates in the superior cavoatrial junction. Cardiac silhouette mildly enlarged. Atherosclerosis of aortic arch. The underlying left upper lobe cavitary lesion is now well demonstrated though there is patchy left lung opacity and left lung volume loss. Relative radiolucency of the right upper lung. Dense opacity in the right lung base has increased from prior. Mild pleural thickening and/or trace right pleural effusion. Osseous structures normal. IMPRESSION: 1. Increased density of the right lower lung compatible with worsening infiltrate/pneumonia or aspiration. 2. Left upper lobe cavitary lesion better demonstrated on recent chest CT from 10/26/2018. 3. Emphysema. ECG Additional Comments: ECG with sinus tachycardia, rate 120, suspected old inferior infarct, otherwise no ischemic changes Code Status & VTE Plan Code Status Full code VTE Prophylaxis Plan VTE Prophylaxis will be ordered: Yes _ (1) CAD (coronary artery disease) Coronary Disease-Associated Artery/Lesion type: [place] artery [place] vs. transplanted heart: [place] heart Associated angina: without angina Qualified Code(s): I25.10 - Atherosclerotic heart disease of [place] coronary artery without angina pectoris (2) HTN (hypertension) Hypertension type: essential hypertension Qualified Code(s): I10 - Essential (primary) hypertension (3) BPH (benign prostatic hyperplasia) Lower urinary tract symptom presence: symptoms absent Lower urinary tract symptom detail: Qualified Code(s): N40.0 - Benign prostatic hyperplasia without lower urinary tract symptoms (4) HLD (hyperlipidemia) Hyperlipidemia type: unspecified Qualified Code(s): E78.5 - Hyperlipidemia, unspecified (5) Anemia Anemia type: other cause Iron deficiency anemia type: Vitamin B12 deficiency anemia type: Folate deficiency anemia type: Bone marrow failure anemia type: Hemolytic anemia type: Other causes of anemia: other cause, not classified Chronic kidney disease stage: Qualified Code(s): D64.89 - Other specified anemias (6) COPD (chronic obstructive pulmonary disease) COPD type: chronic bronchitis Chronic bronchitis type: unspecified Emphysema type: Qualified Code(s): J42 - Unspecified chronic bronchitis (7) DM II (diabetes mellitus, type II), controlled Diabetes mellitus [facility] insulin use: without [facility] use Diabetes mellitus complication status: with kidney complications Diabetes mellitus complication detail: with chronic kidney disease Diabetic retinopathy severity : Proliferative retinopathy type: Diabetes mellitus macular edema: Laterality: Chronic kidney disease stage: stage 3 (moderate) Qualified Code(s ): E11.22 - Type 2 diabetes mellitus with diabetic chronic kidney disease; N18.3 - Chronic kidney disease, stage 3 (moderate)
[2018-11-11] MEDS ORDERED: ONDANSETRON INJ 2 MG/ML 2 ML VIAL IV PRN (19:58)
[2018-11-11] MEDS ORDERED: ALUMINUM/MAGNESIUM SUSP 30 ML UDC PO PRN (19:58)
[2018-11-11] MEDS ORDERED: ACETAMINOPHEN 325 MG TAB PO PRN (19:58)
[2018-11-11] MEDS ORDERED: PIPERACILLIN/TAZOBACTAM 3.375 GM in DEXTROSE 5% 100 ML IV SCH (19:58)
[2018-11-11] MEDS ORDERED: GLUCOSE 10 TABS/TUBE PO PRN (19:58)
[2018-11-11] MEDS ORDERED: DEXTROSE 50% 50 ML SYRINGE IV PRN (19:58)
[2018-11-11] MEDS ORDERED: POLYETHYLENE (MIRALAX) 17 GM PACK PO PRN (19:58)
[2018-11-11] MEDS ORDERED: GLUCOSE 40% GEL 15 GM TUBE PO PRN (19:58)
[2018-11-11] MEDS ORDERED: NITROGLYCERIN SL 0.4 MG/TAB TAB SL PRN (19:58)
[2018-11-11] MEDS ORDERED: GLUCAGON FOR INJ 1 MG VIAL SQ PRN (19:58)
[2018-11-11] MEDS ORDERED: VANCOMYCIN HCL 1,000 MG in SODIUM CHLORIDE 0.9% 250 ML IV SCH (19:58)
[2018-11-11] MEDS ORDERED: NON-FORMULARY MEDICATION (Melatonin [Melatonin] 1 MG) PO SCH (21:00)
[2018-11-11] MEDS ORDERED: POTASSIUM CHLORIDE 20 MEQ TABCR PO SCH (21:00)
[2018-11-11] MEDS: INSULIN ASPART 100 UNITS/ML 3 ML PEN SC SCH (21:11)
[2018-11-11] MEDS: FERROUS SULFATE 325 MG TAB PO SCH (21:11)
[2018-11-11] MEDS: HEPARIN SOD 5,000 UNIT/0.5 ML VIAL SQ SCH (22:16)
[2018-11-11] MEDS: PIPERACILLIN/TAZOBACTAM 3.375 GM in DEXTROSE 5% 100 ML IV SCH (22:16)
[2018-11-11] MEDS ORDERED: ALBUTEROL 0.083% NEBU SOLN 3 ML VIAL NEB PRN (23:08)
[2018-11-12] MEDS: PIPERACILLIN/TAZOBACTAM 3.375 GM in DEXTROSE 5% 100 ML IV SCH ×3 (05:34→21:47)
[2018-11-12 06:11] LABS: Basophils # (auto) 0.01 K/uL (0-0.2); Basophils % (auto) 0.2 %; Hematocrit (blood only) 29.5 % (42-52); Hemoglobin 9.4 g/dL (14.0-18.0); Immature Granulocytes # (auto) 0.05 K/uL (0.00-0.02); Lymphocytes # (auto) 0.38 K/uL (1.2-3.4); Lymphocytes % (auto) 7.5 %; Mean Corpuscular Hgb Conc 31.9 g/dL (32-36); Mean Corpuscular Volume 87.8 fL (80-100); Mean Platelet Volume 9.8 fL (7.4-10.4); Monocytes # (auto) 0.36 K/uL (0.11-0.59); Monocytes % (auto) 7.1 %; Neutrophils # (auto) 4.24 K/uL (1.4-6.5); Neutrophils % (auto) 84.2 %; Platelet Count 420 K/uL (130-400); RDW Coefficient of Variation 20.6 % (11.5-14.5); Red Blood Count 3.36 M/uL (4.7-6.1); White Blood Count 5.04 K/uL (4.8-10.8)
[2018-11-12 06:34] LABS: Anisocytosis Present; Rouleaux 1+
[2018-11-12 06:50] LABS: Calcium 8.9 mg/dl (8.5-10.1); Creatinine Clr Calc Pharmacy 40.6 ml/min; Est GFR (African American) 68.6; Est GFR (Non-African American) 59.2; Potassium 4.3 mmol/L (3.5-5.1)
[2018-11-12] MEDS: ATORVASTATIN 40 MG TAB PO SCH (07:41)
[2018-11-12] MEDS: HEPARIN SOD 5,000 UNIT/0.5 ML VIAL SQ SCH ×2 (07:41→20:38)
[2018-11-12] MEDS: CYANOCOBALAMIN 500 MCG TABLET (VITAMIN B-12) PO SCH (07:42)
[2018-11-12] MEDS: PANTOprazole 40 MG TAB PO SCH (07:42)
[2018-11-12] MEDS: MAGNESIUM OXIDE 400 MG TAB PO SCH (07:42)
[2018-11-12] MEDS: FINASTERIDE 5 MG TAB PO SCH (07:43)
[2018-11-12] MEDS: METOPROLOL SUCC 25MG EXT REL TAB PO SCH (07:43)
[2018-11-12] MEDS: CEROVITE ADV FORMULA TAB PO SCH (07:43)
[2018-11-12] MEDS: FERROUS SULFATE 325 MG TAB PO SCH ×2 (07:44→20:37)
[2018-11-12] MEDS: ASPIRIN 81 MG ECTAB PO SCH (07:44)
[2018-11-12] MEDS: INSULIN ASPART 100 UNITS/ML 3 ML PEN SC SCH ×4 (07:51→20:39)
[2018-11-12] MEDS ORDERED: [UNRECOGNIZED DRUG - OTHER] PO SCH (08:00)
[2018-11-12] MEDS ORDERED: FUROSEMIDE 40 MG in SYRINGE 1 ML IV SCH (09:00)
[2018-11-12] MEDS ORDERED: VANCOMYCIN HCL 750 MG in SODIUM CHLORIDE 0.9% 250 ML IV SCH (10:00)
[2018-11-12] MEDS: INSULIN GLARGINE SOLOSTAR 100 UNITS/ML 3 ML PEN SC SCH (10:30)
--- NOTE | 2018-11-12 15:25 | Hospitalist Progress Note ---
Date of Service November 12, 2018 Assessment & Plan (1) Acute respiratory failure with hypoxia: This patient is a 72-year-old male with a history of severe ischemic cardiomyopathy and chronic systolic CHF, Aspergillus pulmonary infection, cavitary lesion of the left upper lobe, small cell lung cancer, CAD, PAD, HL, COPD, HTN, BPH status post TURP, anemia, CKD stage III, and DM 2, with recent prolonged hospitalization after a STEMI and ventilator dependent respiratory failure with subsequent acute kidney injury and cardiogenic shock. He presents with worsening SOB and was found to be hypoxic in the 80s. 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 Review of the discharge medication list shows that his Lasix was decreased from 40 mg once daily after discharge here several weeks ago, and is now down to 20 mg every other day-this was as per his Master Brewer due to hypotension in the office last week. With 8 lb wt gain since discharge. He denies increased cough or sputum production, denies hemoptysis. In the ER, he was thought to be in acute CHF and was given IV Lasix shortly after initially being given a fluid bolus of 500 mL's of normal saline. His chest x-ray showed a worsening right lower lobe infiltrate from previous x- ray. He was afebrile and did not have a leukocytosis, but he was tachycardic and was given vancomycin and Zosyn to cover for pneumonia. He will be admitted for acute on chronic systolic CHF and recurrent right lower lobe pneumonia. -slight improvement today, less SOB -continue telemetry -Continue supplemental O2 and wean as tolerated keep pulse ox greater than 90% -Diuresing as below -Treating for pneumonia as below (2) Acute on chronic systolic (congestive) heart failure: He gained 8 pounds since discharge a few weeks ago likely secondary to decreased dose of Lasix changed as outpt, plus recurrent PNA. He was discharged from here on Lasix 40 mg p.o. once daily and came in on 20 mg p.o. every other day Has a severely reduced LVEF of 15% Ischemic cardiomyopathy Lactate is elevated secondary to heart failure and did improve today to 2.4 -changed lasix from IV to 40mg po bid given hand cramps -Follow BMP and replace electrolytes as needed, watch renal function--> log skidder slight rise on repeat BMP this afternoon--> hold lasix po for now -Strict I's and O's, daily weights, fluid restriction 1800 mL's per day, low- sodium diet -Consult cardiology for further recommendations-appreciated (3) CAD (coronary artery disease): With a history of 7 stents in the past Had STEMI on most recent admission but was taken to the [facility] and had a chronic occlusion and no stents were placed -Continue aspirin, metoprolol -added statin back on as his LFTs have all returned to normal (4) PVD (peripheral vascular disease): Patient denies claudication symptoms of legs but he clearly has PAD given his poor pulses on exam. -Restarting statin as above -Continue aspirin (5) HTN (hypertension): No longer has hypertension due to poor cardiac output with severe CHF -Remains on metoprolol for his CHF and a low dose (6) BPH (benign prostatic hyperplasia): -Continue finasteride (7) HLD (hyperlipidemia): -Restarted statin as above none the LFTs have normalized from previous shock liver (8) Anemia: Previously in the 7-8 range on last admission, currently at 9.4 which is much improved from previous Thought to be multifactorial due to multiple hospitalizations, fungal infection , and heart failure can cause anemia of chronic disease ferritin level is elevated c/w acute phase reactant. B12 level was low normal in the 300s last admission-continue supplement -continue FeSO4 325mg po bid -Has a history of flash pulmonary edema with blood transfusion requiring intubation -Follow CBC (9) CKD stage 3 due to type 2 diabetes mellitus: GHANSHYAM in setting of CKD stage II Creatinine was at baseline at 1.00, now up to 1.56 this evening after IV lasix Avoid nephrotoxins -Renally dose medications as appropriate (10) COPD (chronic obstructive pulmonary disease): I do not believe the shortness of breath today is a COPD exacerbation He was given 1 dose of IV Solu-Medrol 60 mg in the ER-I do not think he needs to continue on steroids at this time -Can use albuterol as needed (11) DM II (diabetes mellitus, type II), controlled: Last hemoglobin A1c in 09/2018 is very well controlled at 6.7% -Hold home metformin -Sliding scale insulin -Accu-Cheks q. before meals at bedtime (12) Pneumonia: With worsening right lower lobe infiltrate similar to previous site of infection. Thoracic surgery thought that this was spilling from the connection of his left bronchus to his left upper lobe cavitary lesion and was recommending a procedure to correct this. -He is not febrile, no leukocytosis, no productive cough, however radiographically is worsened. -Continue Zosyn-day#2 BCx NGTD Pro-calcitonin is negative MRSA swab negative--> will discontinue vancomycin Appreciate Thoracic Surgery consult--> possible plans for [place] flap this admission (13) Aspergillus fumigatus: Previously on voriconazole since 08/2018., but then on HOLD since 10/19 for elevated LFTs repeat bronch last admission with repeat fungal cultures, AFB, cytologies, etc. thus far all cx's negative. CHATA cavitary lesion secondary to destruction from previous cancer tx as per Thoracic Surgery-infection vs colonization with Aspergillus - ID consultation to determine if needs to be back on voriconazole for his Aspergillus now that LFTs normalized (14) Small cell lung cancer: History of this in the left upper lobe. initial diagnosis in 2015, s/p resection around that time, of CHATA. Thoracic surgery does not feel that the cavitary lesion left upper lobe is consistent with a recurrence of cancer -Follow (15) DVT prophylaxis: SQ heparin Disposition-continue telemetry Case management consult placed Subjective Feeling less SOB today but still coming and going with dyspnea in waves. Says sitting more upright doesn't help. Also very concerned about his hands spasming up today into claws with [place] [employer]orses. Afebrile. Discussed case with Cardiology and Thoracic Surgery Tele with sinus tach, PVCs, rates low 100s, occasionally to 130, with PVC couplets and 3-5 beat runs of VT Review of Systems All systems reviewed & are unremarkable except as noted in HPI & below Physical Exam 2 Vital Signs (Past 24 Hours): Last Vital Signs Temp 36.6 C 11/12/18 11:30 Pulse 105 H 11/12/18 11:30 Resp 20 11/12/18 11:30 BP 105/71 11/12/18 11:30 Pulse Ox 94 11/12/18 11:30 Constitutional: WD/WN, vitals as above (Appears chronically ill) no acute distress Eyes: PERRL, conjunctivae normal, anicteric sclerae ENMT: external ear and nose normal, oropharynx normal Neck: trachea midline, no thyromegaly Respiratory: normal respiratory effort Auscultation: + crackles (At the right lower lung field) and + bronchovesicular breath sounds (At the left upper lung field) Cardiovascular: RRR, no murmur, no edema Vessels: + JVD (to 8 cm) Gastrointestinal (Abdomen): normal bowel sounds, soft, nontender, no hepatosplenomegaly Musculoskeletal: Extremities: extremities normal to inspection; no cyanosis and no clubbing Skin: no rashes, warm and dry Neurologic: moves all extremities and awake; no focal motor deficits Psychiatric: A+Ox3, euthymic affect Results & Data Laboratory Results 11/12/18 11/12/18 11/12/18 Range/Units 20:21 16:25 15:47 WBC (4.8-10.8) K/uL RBC (4.7-6.1) M/uL Hgb (14.0-18.0) g/dL Hct (42-52) % MCV (80-100) fL MCH (25-34) pg MCHC (32-36) g/dL RDW Std Deviation (36.4-46.3) fL RDW Coeff of Molly (11.5-14.5) % Plt Count (130-400) K/uL MPV (7.4-10.4) fL Immature Gran % (Auto) % Neut % (Auto) % Lymph % (Auto) % [place] % (Auto) % Eos % (Auto) % Baso % (Auto) % Immature Gran # (Auto) (0.00-0.02) K/uL Neut # (Auto) (1.4-6.5) K/uL Lymph # (Auto) (1.2-3.4) K/uL [place] # (Auto) (0.11-0.59) K/uL Eos # (Auto) (0-0.5) K/uL Baso # (Auto) (0-0.2) K/uL Anisocytosis Rouleaux Sodium 133 L (136-145) mmol/L Potassium 4.2 (3.5-5.1) mmol/L Chloride 99 (98-107) mmol/L Carbon Dioxide 25 (21-32) mmol/L Anion Gap 9.0 (3-11) BUN 32 H (7-18) mg/dl Creatinine 1.54 H D (0.6-1.4) mg/dl Est Cr Clr Drug Dosing 31.7 ml/min Est GFR ( Amer) 50.8 Est GFR (Non-Af Amer) 43.8 BUN/Creatinine Ratio 20.7 H (10-20) Glucose 113 H (70-99) mg/dl POC Glucose 199 H 132 H (70-99) Lactate (0.4-2.0) mmol/L Calcium 8.9 (8.5-10.1) mg/dl Phosphorus 3.5 (2.5-4.9) mg/dl Magnesium 2.1 (1.8-2.4) mg/dl 11/12/18 11/12/18 11/12/18 Range/Units 11:37 07:12 05:55 WBC (4.8-10.8) K/uL RBC (4.7-6.1) M/uL Hgb (14.0-18.0) g/dL Hct (42-52) % MCV (80-100) fL MCH (25-34) pg MCHC (32-36) g/dL RDW Std Deviation (36.4-46.3) fL RDW Coeff of Molly (11.5-14.5) % Plt Count (130-400) K/uL MPV (7.4-10.4) fL Immature Gran % (Auto) % Neut % (Auto) % Lymph % (Auto) % [place] % (Auto) % Eos % (Auto) % Baso % (Auto) % Immature Gran # (Auto) (0.00-0.02) K/uL Neut # (Auto) (1.4-6.5) K/uL Lymph # (Auto) (1.2-3.4) K/uL [place] # (Auto) (0.11-0.59) K/uL Eos # (Auto) (0-0.5) K/uL Baso # (Auto) (0-0.2) K/uL Anisocytosis Rouleaux Sodium (136-145) mmol/L Potassium (3.5-5.1) mmol/L Chloride (98-107) mmol/L Carbon Dioxide (21-32) mmol/L Anion Gap (3-11) BUN (7-18) mg/dl Creatinine (0.6-1.4) mg/dl Est Cr Clr Drug Dosing ml/min Est GFR ( Amer) Est GFR (Non-Af Amer) BUN/Creatinine Ratio (10-20) Glucose (70-99) mg/dl POC Glucose 280 H 258 H (70-99) Lactate 2.6 H* (0.4-2.0) mmol/L Calcium (8.5-10.1) mg/dl Phosphorus (2.5-4.9) mg/dl Magnesium (1.8-2.4) mg/dl 11/12/18 11/12/18 Range/Units 05:55 05:55 WBC 5.04 (4.8-10.8) K/uL RBC 3.36 L (4.7-6.1) M/uL Hgb 9.4 L (14.0-18.0) g/dL Hct 29.5 L (42-52) % MCV 87.8 (80-100) fL MCH 28.0 (25-34) pg MCHC 31.9 L (32-36) g/dL RDW Std Deviation 66.0 H (36.4-46.3) fL RDW Coeff of Molly 20.6 H (11.5-14.5) % Plt Count 420 H (130-400) K/uL MPV 9.8 (7.4-10.4) fL Immature Gran % (Auto) 1.0 % Neut % (Auto) 84.2 % Lymph % (Auto) 7.5 % [place] % (Auto) 7.1 % Eos % (Auto) 0.0 % Baso % (Auto) 0.2 % Immature Gran # (Auto) 0.05 H (0.00-0.02) K/uL Neut # (Auto) 4.24 (1.4-6.5) K/uL Lymph # (Auto) 0.38 L (1.2-3.4) K/uL [place] # (Auto) 0.36 (0.11-0.59) K/uL Eos # (Auto) 0.00 (0-0.5) K/uL Baso # (Auto) 0.01 (0-0.2) K/uL Anisocytosis Present Rouleaux 1+ Sodium 134 L (136-145) mmol/L Potassium 4.3 (3.5-5.1) mmol/L Chloride 99 (98-107) mmol/L Carbon Dioxide 25 (21-32) mmol/L Anion Gap 10.0 (3-11) BUN 24 H (7-18) mg/dl Creatinine 1.20 (0.6-1.4) mg/dl Est Cr Clr Drug Dosing 40.6 ml/min Est GFR ( Amer) 68.6 Est GFR (Non-Af Amer) 59.2 BUN/Creatinine Ratio 20.0 (10-20) Glucose 241 H (70-99) mg/dl POC Glucose (70-99) Lactate (0.4-2.0) mmol/L Calcium 8.9 (8.5-10.1) mg/dl Phosphorus (2.5-4.9) mg/dl Magnesium 2.0 (1.8-2.4) mg/dl _ (1) BPH (benign prostatic hyperplasia) Lower urinary tract symptom detail: Lower urinary tract symptom presence: symptoms absent Qualified Code(s): N40.0 - Benign prostatic hyperplasia without lower urinary tract symptoms (2) CAD (coronary artery disease) Associated angina: without angina Coronary Disease-Associated Artery/Lesion type: [place] artery [place] vs. transplanted heart: [place]une heart Qualified Code (s): I25.10 - Atherosclerotic heart disease of [place] coronary artery without angina pectoris (3) Anemia Anemia type: other cause Bone marrow failure anemia type: Chronic kidney disease stage: Folate deficiency anemia type: Hemolytic anemia type: Iron deficiency anemia type: Other causes of anemia: other cause, not classified Vitamin B12 deficiency anemia type: Qualified Code(s): D64.89 - Other specified anemias (4) HLD (hyperlipidemia) Hyperlipidemia type: unspecified Qualified Code(s): E78.5 - Hyperlipidemia, unspecified (5) DM II (diabetes mellitus, type II), controlled Chronic kidney disease stage: stage 3 (moderate) Diabetes mellitus complication detail: with chronic kidney disease Diabetes mellitus complication status: with kidney complications Diabetes mellitus bed bug exterminator insulin use: without bed bug exterminator use Diabetes mellitus macular edema: Diabetic retinopathy severity: Laterality: Proliferative retinopathy type: Qualified Code(s): E11.22 - Type 2 diabetes mellitus with diabetic chronic kidney disease; N18.3 - Chronic kidney disease, stage 3 (moderate) (6) COPD (chronic obstructive pulmonary disease) COPD type: chronic bronchitis Chronic bronchitis type: unspecified Emphysema type: Qualified Code(s): J42 - Unspecified chronic bronchitis (7) HTN (hypertension) Hypertension type: essential hypertension Qualified Code(s): I10 - Essential (primary) hypertension
--- NOTE | 2018-11-12 15:53 | Consultation Report ---
DATE OF CONSULTATION: 11/12/2018 REASON FOR CONSULTATION: Acute respiratory failure. HISTORY OF PRESENT ILLNESS: This is a 72-year-old male that I know quite well. He presented back to [facility] with increasing cough, dyspnea and sputum production. He appears to have responded to antibiotics thus far. He has an extensive medical history includin. History of small cell lung carcinoma in his left upper lobe. 2. Status post radiation and chemotherapy. 3. Severe ischemic cardiomyopathy. 4. Episodes of congestive heart failure. 5. Aspergillus, left upper chest cavity (colonization versus infection). 6. Episodes of hemoptysis. 7. Chronic obstructive pulmonary disease. 8. Severe bullous emphysema. 9. Coronary artery disease. 10. Hypertension. 11. Renal insufficiency. 12. Diabetes. PAST SURGICAL HISTORY: 1. Endobronchial ultrasound with biopsy. 2. History of left infraclavicular Port-A-Cath. 3. Coronary artery disease with at least 7 stents in the past. 4. Transurethral resection of the prostate. MEDICATIONS (AT HOME): 1. Pantoprazole. 2. Aspirin. 3. Metformin. 4. Finasteride. 5. Ferrous sulfate. 6. Melatonin. 7. Metoprolol. 8. Nitroglycerin. 9. Lasix. 10. Insulin. 11. Potassium supplements. ALLERGIES: No known drug allergies. SOCIAL HISTORY: The patient's is very supportive as his family. He does have a history of cigarette smoking, but no longer smokes. He does not use alcohol. FAMILY MEDICAL HISTORY: The patient's mother had diabetes mellitus. Father was a heavy drinker and smoker and of coronary artery disease at age 58. His brother and sister are healthy and his children are healthy. REVIEW OF SYSTEMS: The patient has been short of breath, although he feels better since being admitted to the hospital. He has been on antibiotics. He states his weight has been relatively stable, although he lost quite a bit of weight after this whole affair started. He denies fevers or chills, but he was very weak and short of breath. Denies palpitations. Not eating the way he should, but he knows this. He has had no wound breakdown. He has no visual or auditory symptoms which are new. He denies any neurologic symptoms. PHYSICAL EXAMINATION: GENERAL: This is an ill-appearing 5 feet 7 inches, 120-pound male who has gained quite a bit of weight in the last several days. He is diuresing. He has temporal wasting. He wears glasses. HEENT: His extraocular movements are intact. He is missing some teeth, but has no dentures. Tongue is midline. Oral mucosa is moist. NECK: His neck is thin, but I detect no carotid bruits and he has no neck vein distention. In particular, he has no supraclavicular, cervical or axillary adenopathy. LUNGS: He has decreased breath sounds in both lung watts, especially in the left anterior upper chest. He has rhonchi with a few rales in the right base. I do not detect wheezing. There is a well-healed left infraclavicular Port-A-Cath. ABDOMEN: His abdomen is flat, soft and has no evidence of ascites or hepatosplenomegaly. EXTREMITIES: Really, he has no skin breakdown. He has no joint effusion. He has no peripheral edema. I am having difficulty palpating his pulses. NEUROLOGIC: He is awake, alert and oriented to move all 4 extremities. ASSESSMENT AND PLAN: Mr. Aden has a problem, but I do not believe this patient has metastatic cancer. It has now been about 2-1/2 years since he was diagnosed as having small cell lung carcinoma and I believe he is a responder, however, he suffered destruction of his left upper lobe with the chemotherapy and radiation. This persistent space has at least colonized with Aspergillus and probably other organisms. Unfortunately, the space connects directly with the airway, so by definition, it is contaminated. It connects to what remains of the left upper lobe bronchus and has fluid in it. My belief is that this continues to contaminate his lungs, particularly in the right lower lobe. I am going to offer him an [place] flap. I keep waiting for him to improve, but he keeps getting sicker. The patient and I had a long discussion today and I have explained to his family that I am not sure that we can push this off any longer. I think he will tolerate the surgery. We will discuss this with anesthesia and with his physicians. It is still unclear to me whether I would go ahead and offer to him on this admission. Once we performed the flap and we can get to this space, we can keep it from contaminating the rest of his lungs. DOMENICA
[2018-11-12 16:21] LABS: BUN Creatinine Ratio 20.7 (10-20); Calcium 8.9 mg/dl (8.5-10.1); Creatinine Clr Calc Pharmacy 31.7 ml/min; Est GFR (African American) 50.8; Est GFR (Non-African American) 43.8; Magnesium 2.1 mg/dl (1.8-2.4); Potassium 4.2 mmol/L (3.5-5.1)
[2018-11-12 16:22] LABS: Phosphorus 3.5 mg/dl (2.5-4.9)
[2018-11-12] MEDS ORDERED: FUROSEMIDE 40 MG TAB PO SCH (17:00)
--- NOTE | 2018-11-12 19:28 | Cardiology Consultation ---
Date of Consultation November 12, 2018 Assessment & Plan (1) Acute respiratory failure with hypoxia: He has both intrinsic lung disease, and ischemic cardiomyopathy. Several days prior to admission he had his diuretic regimen D escalated. Unclear if that exclusively is responsible for worsening dyspnea. He did have some weight gain over that time as well. It has been difficult to judge clerk his overall volume status, but given the severely elevated N-terminal proBNP, weight gain and x- ray findings, it would seem reasonable to attempt diuresis. He will need to have his electrolytes and renal function monitored closely. At the time of discharge will need to decide on an appropriate diuretic regimen for the outpatient setting. Present on Admission?: Yes (2) Ischemic cardiomyopathy: Patient is known to have severely reduced LV systolic function. In the past he has been on more aggressive medical regimen but this was reduced recently due to his relative hypotension. Currently continues exclusively on beta-blockade. (3) CAD (coronary artery disease): No current symptoms of angina or coronary insufficiency. At the time of his last admission he did undergo coronary angiography which revealed chronic disease but no acute coronary syndrome. He will continue on a daily aspirin and beta-blockade. Present on Admission?: Yes History of Present Illness Reason for Consultation: CHF Requesting Physician: Juan Manuel Attending Physician: Joselyn Zambrano MD History of Present Illness The patient is a 72-year-old gentleman with an extensive past medical history to include severe emphysema, aspergilloma, lung cancer and systolic heart failure. Patient was recently hospitalized for respiratory failure. He was discharged to a nursing facility but recently began experiencing worsening shortness of breath. The patient states that even with minimal activity such as going to the bathroom he became severely short of breath. At times he was short of breath even at rest. He did not describe overt orthopnea. He has not noticed any swelling in his lower extremities. In general he has been gaining strength and ambulating more. The patient did report a cough. This is fairly chronic in nature and not worse recently. He did not report any subjective fevers but has felt chilled recently. He has been eating pur�ed and chopped foods at his residence and undergoing observation with eating in order to evaluate for possible aspiration. Currently he claims to be comfortable. However, he does not report any significant improvement in his condition since admission. He was able to use a bedside urinal and did become significantly short of breath. No current symptoms of chest discomfort. No abdominal complaints. Allergies Allergy/AdvReac Type Severity Reaction Status Date / Time No Known Allergies Allergy Verified 11/11/18 15:07 Home Medications Home Medications Medication Instructions Recorded Confirmed Type ferrous sulfate 325 mg PO BID 09/17/18 11/11/18 History finasteride 5 mg PO QAM 09/17/18 11/11/18 History magnesium oxide 400 mg PO QAM 09/17/18 11/11/18 History metformin 1,000 mg PO BID 09/17/18 11/11/18 History multivitamin with minerals 1 tab PO QAM 09/17/18 11/11/18 History [Multiple Vitamin-Minerals] pantoprazole 40 mg PO QAM 09/17/18 11/11/18 History aspirin 81 mg PO QAM 10/14/18 11/11/18 History cyanocobalamin (vitamin B-12) 1,000 mcg PO QAM #30 tab 10/27/18 11/11/18 Rx [Vitamin B-12] melatonin 1 mg PO HS #30 tab 10/27/18 11/11/18 Rx metoprolol succinate 12.5 mg PO QAM #30 tab 10/27/18 11/11/18 Rx nitroglycerin 0.4 mg SUBLINGUAL Q5M PRN #30 tab 10/27/18 11/11/18 Rx nut.tx.gluc intol,lf,soy-fiber 1 ea PO TIDM #6399 ml 10/27/18 11/11/18 Rx [Boost Glucose Control] furosemide [Lasix] 20 mg PO Q OTHER DAY 11/11/18 11/11/18 History insulin aspart U-100 [Novolog 0 sliding scale dose SUBCUT ACHS 11/11/18 History Flexpen U-100 Insulin] potassium chloride [Klor-Con M20] 20 meq PO Q OTHER DAY 11/11/18 11/11/18 History Patient History Medical History Aspergillus fumigatus Acute on chronic systolic (congestive) heart failure DE (myocardial infarction) (Resolved) Small cell lung cancer (Acute 01/27/16) "DIAGNOSIS: Lung, CHATA, small cell lung carcinoma, [id number], stage IIIA TREATMENT: 1. Status post completion of combined radiation and chemotherapy. Radiation completed 05/02/2016 received 7000 cGy 2. 2 addition cycles of cisplatin/etoposide - Dr. Jeffery Ash" On 05/09/16 13:18 Beatris Curiel wrote "DIAGNOSIS: Lung, CHATA, small cell lung carcinoma, [id number], stage IIIA, limited stage Status post completion of combined radiation and chemotherapy. Radiation completed 05/02/2016 received 7000 cGy" On 05/09/16 12:53 Beatris Curiel wrote "DIAGNOSIS: Lung, CHATA, small cell lung carcinoma, [id number], stage IIIA, limited stage Status post completion of combined radiation and chemotherapy. Radiation completed 05/01/2016 received 7000 cGy" On 02/23/16 13:12 Jacinta Poole wrote "DIAGNOSIS: Lung, CHATA, small cell lung carcinoma, [id number], stage IIIA, limited stage" CAD (coronary artery disease) PVD (peripheral vascular disease) Hx of myocardial infarction HTN (hypertension) BPH (benign prostatic hyperplasia) HLD (hyperlipidemia) Anemia CKD stage 3 due to type 2 diabetes mellitus COPD (chronic obstructive pulmonary disease) DM II (diabetes mellitus, type II), controlled Consolidation lung Left upper lobe pneumonia Pneumonia Surgical History History of transurethral resection of prostate History of heart artery stent (Chronic) Family History Other Diabetes Heart disease Social History marital status: Current Living Situation: Spouse current occupational status: retired Other Information That Helps Us Care for You: No Feels Safe at Home: Yes Safety Concerns: Feels Safe At This Time Smoking Status: Former smoker Do You Dip or Chew Tobacco: No Hx Alcohol Use: No Hx Substance Use: No Beliefs That Will Affect Care: None Communication Ability: Effective Review of Systems Complete. Pertinent positives noted in the history of present illness. Reportedly he is following a low-sodium diet. Physical Exam 2 Vital Signs (Past 24 Hours): Last Vital Signs Temp 36.4 C L 11/12/18 16:06 Pulse 109 H 11/12/18 16:06 Resp 20 11/12/18 16:06 BP 87/59 L 11/12/18 16:06 Pulse Ox 98 11/12/18 16:06 Physical Exam: The patient is alert and oriented. Mood and affect appeared normal. He answered all questions appropriately. HEENT: Pupils are equal and reactive to light and accommodation. Extraocular movements are intact. The sclerae are anicteric. Neuro: Cranial nerves intact Neck: Patient's neck is supple. He has palpable carotid pulses bilaterally without bruits on auscultation. There is no evidence of jugular venous distention. The thyroid is not enlarged. Lungs: Clear to auscultation bilaterally. He has good air movement without use of accessory muscles. No rales wheezes or rhonchi. Cardiac: Heart demonstrates a regular rate and rhythm. Normal S1 and S2. No murmurs on examination. Pulses: The patient has palpable radial pulses bilaterally that are equal in intensity Extremities: There was no evidence of hypoperfusion. There is no cyanosis or clubbing. There is no edema. Skin: I did not appreciate any rashes on examination today. Atrial fibrillation Results & Data Laboratory Results Abnormal Lab Results 11/11/18 11/11/18 11/12/18 20:11 22:45 05:55 WBC 5.04 RBC 3.36 L Hgb 9.4 L Hct 29.5 L MCV 87.8 MCH 28.0 MCHC 31.9 L RDW Std Deviation 66.0 H RDW Coeff of Molly 20.6 H Plt Count 420 H MPV 9.8 Immature Gran % (Auto) 1.0 Neut % (Auto) 84.2 Lymph % (Auto) 7.5 [place] % (Auto) 7.1 Eos % (Auto) 0.0 Baso % (Auto) 0.2 Immature Gran # (Auto) 0.05 H Neut # (Auto) 4.24 Lymph # (Auto) 0.38 L [place] # (Auto) 0.36 Eos # (Auto) 0.00 Baso # (Auto) 0.01 Anisocytosis Present Rouleaux 1+ Sodium Potassium Chloride Carbon Dioxide Anion Gap BUN Creatinine Est Cr Clr Drug Dosing Est GFR ( Amer) Est GFR (Non-Af Amer) BUN/Creatinine Ratio Glucose POC Glucose 225 H Lactate Calcium Phosphorus Magnesium Nasal Screen MRSA (PCR) Negative 11/12/18 11/12/18 11/12/18 05:55 05:55 07:12 WBC RBC Hgb Hct MCV MCH MCHC RDW Std Deviation RDW Coeff of Molly Plt Count MPV Immature Gran % (Auto) Neut % (Auto) Lymph % (Auto) [place] % (Auto) Eos % (Auto) Baso % (Auto) Immature Gran # (Auto) Neut # (Auto) Lymph # (Auto) [place] # (Auto) Eos # (Auto) Baso # (Auto) Anisocytosis Rouleaux Sodium 134 L Potassium 4.3 Chloride 99 Carbon Dioxide 25 Anion Gap 10.0 BUN 24 H Creatinine 1.20 Est Cr Clr Drug Dosing 40.6 Est GFR ( Amer) 68.6 Est GFR (Non-Af Amer) 59.2 BUN/Creatinine Ratio 20.0 Glucose 241 H POC Glucose 258 H Lactate 2.6 H* Calcium 8.9 Phosphorus Magnesium 2.0 Nasal Screen MRSA (PCR) 11/12/18 11/12/18 11/12/18 11:37 15:47 16:25 WBC RBC Hgb Hct MCV MCH MCHC RDW Std Deviation RDW Coeff of Molly Plt Count MPV Immature Gran % (Auto) Neut % (Auto) Lymph % (Auto) [place] % (Auto) Eos % (Auto) Baso % (Auto) Immature Gran # (Auto) Neut # (Auto) Lymph # (Auto) [place] # (Auto) Eos # (Auto) Baso # (Auto) Anisocytosis Rouleaux Sodium 133 L Potassium 4.2 Chloride 99 Carbon Dioxide 25 Anion Gap 9.0 BUN 32 H Creatinine 1.54 H D Est Cr Clr Drug Dosing 31.7 Est GFR ( Amer) 50.8 Est GFR (Non-Af Amer) 43.8 BUN/Creatinine Ratio 20.7 H Glucose 113 H POC Glucose 280 H 132 H Lactate Calcium 8.9 Phosphorus 3.5 Magnesium 2.1 Nasal Screen MRSA (PCR) Diagnostic Findings Chest x-ray at the time of admission revealed evidence of pulmonary vascular congestion, cavitary lesion and right lower lobe infiltrate. ECG Additional Comments: Normal sinus rhythm _ (1) CAD (coronary artery disease) Associated angina: without angina Coronary Disease-Associated Artery/Lesion type: [place] artery [place] vs. transplanted heart: [place] heart Qualified Code (s): I25.10 - Atherosclerotic heart disease of [place] coronary artery without angina pectoris
--- NOTE | 2018-11-12 22:42 | Emergency Department Note ---
Entered by Demario Todd acting as a scribe for History of Present Illness General Chief complaint: Shortness of Breath/Dyspnea Stated complaint: SOB Time Seen by Provider: 11/11/18 13:36 Source: patient History of Present Illness Provider complaint: Shortness of breath Onset (ago): day(s) 3 Location: chest Pain Consistency: + other (worsening) Quality: + other (shortness of breath) Associated symptoms: no cough The patient is a 72 year old male who presents to the Emergency Room with complaints of difficulty breathing that started 3 days ago. He states that 3 days ago he "felt different" and that his breathing worsened 2 days ago. The patient noted his oxygen saturations fluctuated from 76- 91. The patient states that he does not wear oxygen at home, but is on a nebulizer, Combivent. The patient adds that he does not use an inhaled or oral steroid. The patient reports he was recently hospitalized with pneumonia in September and was subsequently sent to [facility]. The patient states he has a dry cough but has not been coughing more than usual. The patient notes he suffered a heart attack in 2005 and has a total of 7 stents placed. He also reports that he was told that his heart is functioning at 15-20%. The patient also reports a history of lung cancer and states he has pneumonia. Pt states he follows with pulmonology for a fungal infection in his lungs. Home Medications Home Medications Medication Instructions Recorded Confirmed Type ferrous sulfate 325 mg PO BID 09/17/18 11/11/18 History finasteride 5 mg PO QAM 09/17/18 11/11/18 History magnesium oxide 400 mg PO QAM 09/17/18 11/11/18 History metformin 1,000 mg PO BID 09/17/18 11/11/18 History multivitamin with minerals 1 tab PO QAM 09/17/18 11/11/18 History [Multiple Vitamin-Minerals] pantoprazole 40 mg PO QAM 09/17/18 11/11/18 History aspirin 81 mg PO QAM 10/14/18 11/11/18 History cyanocobalamin (vitamin B-12) 1,000 mcg PO QAM #30 tab 10/27/18 11/11/18 Rx [Vitamin B-12] melatonin 1 mg PO HS #30 tab 10/27/18 11/11/18 Rx metoprolol succinate 12.5 mg PO QAM #30 tab 10/27/18 11/11/18 Rx nitroglycerin 0.4 mg SUBLINGUAL Q5M PRN #30 tab 10/27/18 11/11/18 Rx nut.tx.gluc intol,lf,soy-fiber 1 ea PO TIDM #6399 ml 10/27/18 11/11/18 Rx [Boost Glucose Control] furosemide [Lasix] 20 mg PO Q OTHER DAY 11/11/18 11/11/18 History insulin aspart U-100 [Novolog 0 sliding scale dose SUBCUT ACHS 11/11/18 History Flexpen U-100 Insulin] potassium chloride [Klor-Con M20] 20 meq PO Q OTHER DAY 11/11/18 11/11/18 History Allergies Allergy/AdvReac Type Severity Reaction Status Date / Time No Known Allergies Allergy Verified 11/11/18 15:07 Past Med/Surg History Medical History Aspergillus fumigatus Acute on chronic systolic (congestive) heart failure [place] (myocardial infarction) (Resolved) Small cell lung cancer (Acute 01/27/16) "DIAGNOSIS: Lung, CHATA, small cell lung carcinoma, [id number], stage IIIA TREATMENT: 1. Status post completion of combined radiation and chemotherapy. Radiation completed 05/02/2016 received 7000 cGy 2. 2 addition cycles of cisplatin/etoposide - Dr. Jeffery Ash" On 05/09/16 13:18 Beatris Curiel wrote "DIAGNOSIS: Lung, CHATA, small cell lung carcinoma, [id number], stage IIIA, limited stage Status post completion of combined radiation and chemotherapy. Radiation completed 05/02/2016 received 7000 cGy" On 05/09/16 12:53 Beatris Curiel wrote "DIAGNOSIS: Lung, CHATA, small cell lung carcinoma, [id number], stage IIIA, limited stage Status post completion of combined radiation and chemotherapy. Radiation completed 05/01/2016 received 7000 cGy" On 02/23/16 13:12 Jacinta Poole wrote "DIAGNOSIS: Lung, CHATA, small cell lung carcinoma, [id number], stage IIIA, limited stage" CAD (coronary artery disease) PVD (peripheral vascular disease) Hx of myocardial infarction HTN (hypertension) BPH (benign prostatic hyperplasia) HLD (hyperlipidemia) Anemia CKD stage 3 due to type 2 diabetes mellitus COPD (chronic obstructive pulmonary disease) DM II (diabetes mellitus, type II), controlled Consolidation lung Left upper lobe pneumonia Pneumonia Surgical History History of transurethral resection of prostate History of heart artery stent (Chronic) Family History Other Diabetes Heart disease Social History marital status: Current Living Situation: Spouse current occupational status: retired Other Information That Helps Us Care for You: No Feels Safe at Home: Yes Safety Concerns: Feels Safe At This Time Smoking Status: Former smoker Do You Dip or Chew Tobacco: No Second Hand Exposure: No Tobacco Cessation Education Requested by Patient: No Hx Alcohol Use: No Hx Substance Use: No Beliefs That Will Affect Care: None Communication Ability: Effective Review of Systems See HPI for pertinent positives & negatives. and A total of 10 systems reviewed and were otherwise negative Physical Exam Vital Signs Vital Signs - 24 hr 11/11/18 23:45 11/12/18 03:37 11/12/18 07:13 Temperature 36.6 C 36.8 C 36.4 C L Temperature Source Oral Axillary Oral Pulse Rate - Sitting Pulse Rate [Left] 115 H 106 H 105 H Pulse Rhythm [Left] Regular Pulse Strength [Left] Normal Respiratory Rate 18 23 18 Respiratory Effort / Characteristics Non-Labored Spontaneous Labored SOB on Exertion Respiratory Depth Normal Respiratory Pattern Regular Blood Pressure - Sitting Blood Pressure [Left Arm] 96/65 L 87/58 L Blood Pressure [Right Arm] 99/66 L Blood Pressure Mean [Left Arm] 75 67 Blood Pressure Mean [Right Arm] 77 Blood Pressure Position [Left Arm] Lying Blood Pressure Position [Right Arm] Lying Pulse Oximetry 91 97 96 Pulse Oximetry [Post Treatment/Recovery] Oxygen Delivery Method Nasal Cannula Nasal Cannula Oxygen Flow Rate 1 2 2 Oxygen Flow Rate [Post Treatment/Recovery] 11/12/18 08:00 11/12/18 09:39 11/12/18 11:30 Temperature 36.6 C Temperature Source Oral Pulse Rate - Sitting 121 H Pulse Rate [Left] 105 H Pulse Rhythm [Left] Pulse Strength [Left] Respiratory Rate 20 Respiratory Effort / Characteristics Non-Labored Spontaneous Non-Labored Spontaneous Respiratory Depth Normal Normal Respiratory Pattern Regular Regular Blood Pressure - Sitting 99/71 L Blood Pressure [Left Arm] 105/71 Blood Pressure [Right Arm] Blood Pressure Mean [Left Arm] 82 Blood Pressure Mean [Right Arm] Blood Pressure Position [Left Arm] Blood Pressure Position [Right Arm] Pulse Oximetry 94 Pulse Oximetry [Post Treatment/Recovery] 94 Oxygen Delivery Method Nasal Cannula Nasal Cannula Oxygen Flow Rate 2 2 Oxygen Flow Rate [Post Treatment/Recovery] 2 11/12/18 13:06 11/12/18 16:06 11/12/18 19:33 Temperature 36.4 C L 36.4 C L Temperature Source Oral Oral Pulse Rate - Sitting 107 H Pulse Rate [Left] 109 H 111 H Pulse Rhythm [Left] Pulse Strength [Left] Respiratory Rate 20 16 Respiratory Effort / Characteristics Respiratory Depth Respiratory Pattern Blood Pressure - Sitting 95/66 L Blood Pressure [Left Arm] 87/59 L Blood Pressure [Right Arm] 95/60 L Blood Pressure Mean [Left Arm] 68 Blood Pressure Mean [Right Arm] 71 Blood Pressure Position [Left Arm] Lying Blood Pressure Position [Right Arm] Lying Pulse Oximetry 98 95 Pulse Oximetry [Post Treatment/Recovery] Oxygen Delivery Method Nasal Cannula Nasal Cannula Oxygen Flow Rate 2 2 Oxygen Flow Rate [Post Treatment/Recovery] GENERAL: alert, well appearing, well nourished, in mild distress, non-toxic, increased WOB, no tripoding EYE EXAM: normal conjunctiva, PERRL and EOM's grossly intact OROPHARYNX: no exudate, no erythema, lips, buccal mucosa, and tongue normal and mucous membranes are moist, no nasal flaring. NECK: supple, no nuchal rigidity, no adenopathy, non-tender LUNGS: Clear to auscultation. Normal chest wall mechanics. Pursed lip breathing. Slightly barrel chested. Diminished breath sounds. No wheezes, rhonchi, or rales. No retractions. HEART: no murmurs, S1 normal and S2 normal ABDOMEN: abdomen soft, non-tender, normo-active bowel sounds, no masses, no rebound or guarding. BACK: Back is symmetrical on inspection and there is no deformity, no midline tenderness, no CVA tenderness. SKIN: no rashes and no bruising UPPER EXTREMITIES: upper extremities are grossly normal. FROM, nml pulses b/l. LOWER EXTREMITIES: No pitting edema. FROM, nml pulses b/l. NEURO EXAM: Normal sensorium, cranial nerves II-XII intact, normal speech, no weakness of arms, no weakness of legs. Course 1336: Past medical records reviewed. The patient was evaluated in room C04, and a complete history and physical examination were performed. 1404: I reviewed the patient's EMR from his recent admission. 1540: I updated the patient on his results. Pt states he is minimally improved after 2 neb treatments. 1703: I reviewed the patient's case with Dr. Dami CRAIG Hospitalist. She will evaluate the patient for further management. Consultations Consultation #1: 1703: I reviewed the patient's case with Dr. Dami CRAIG Hospitalist. She will evaluate the patient for further management. Time: 17:03 Administered Medications Aspirin (Ecotrin Ectab) 81 mg PO QAM [facility] Stop: 12/12/18 08:59 Last Admin: 11/12/18 07:44 Dose: 81 mg Atorvastatin Calcium (Lipitor) 40 mg PO QAM [facility] Stop: 12/12/18 08:59 Last Admin: 11/12/18 07:41 Dose: 40 mg Cyanocobalamin (Vitamin B-12) 1,000 mcg PO QAM [facility] Stop: 12/12/18 08:59 Last Admin: 11/12/18 07:42 Dose: 1,000 mcg Ferrous Sulfate (Feosol) 325 mg PO BID [facility] Stop: 12/11/18 20:59 Last Admin: 11/12/18 20:37 Dose: 325 mg Admin: 11/12/18 07:44 Dose: 325 mg Admin: 11/11/18 21:11 Dose: 325 mg Finasteride (Proscar) 5 mg PO QAM [facility] Stop: 12/12/18 08:59 Last Admin: 11/12/18 07:43 Dose: 5 mg Furosemide (Lasix) 40 mg PO [id number] [facility] Stop: 12/12/18 16:59 Last Admin: 11/12/18 17:18 Dose: 40 mg Heparin Sodium (Porcine) (Heparin Sodium (Porcine)) 5,000 units SQ Q12 [facility] Stop: 12/11/18 20:59 Last Admin: 11/12/18 20:38 Dose: 5,000 units Admin: 11/12/18 07:41 Dose: 5,000 units Admin: 11/11/18 22:16 Dose: Not Given Piperacillin Sod/Tazobactam (Sod 3.375 gm/ Dextrose) 115 mls @ 28.75 mls/hr IV Q8H [facility]; Protocol Stop: 11/18/18 21:59 Last Admin: 11/12/18 21:47 Dose: 28.8 mls/hr Infusion: 11/12/18 19:48 Dose: 0 mls/hr Admin: 11/12/18 15:14 Dose: 28.8 mls/hr Infusion: 11/12/18 09:35 Dose: 0 mls/hr Admin: 11/12/18 05:34 Dose: 28.8 mls/hr Infusion: 11/12/18 03:00 Dose: 0 mls/hr Admin: 11/11/18 22:16 Dose: 28.8 mls/hr Insulin Aspart (Novolog Flexpen) 0 units [facility] Stop: 12/11/18 20:59 Last Admin: 11/12/18 20:39 Dose: 3 units Admin: 11/12/18 17:15 Dose: 5 units Admin: 11/12/18 12:32 Dose: 9 units Admin: 11/12/18 07:51 Dose: 6 units Admin: 11/11/18 21:11 Dose: 3 units Insulin Glargine (Lantus Solostar Pen) 5 units SC [facility] Stop: 12/12/18 09:44 Last Admin: 11/12/18 10:30 Dose: 5 units Magnesium Oxide (Mag-Ox) 400 mg PO [facility] Stop: 12/12/18 08:59 Last Admin: 11/12/18 07:42 Dose: 400 mg Metoprolol Succinate (Toprol Xl) 12.5 mg PO [facility] Stop: 12/12/18 08:59 Last Admin: 11/12/18 07:43 Dose: 12.5 mg Multivitamins/Minerals (Multivitamin W/ Minerals Tab) [facility] Stop: 12/12/18 08:59 Last Admin: 11/12/18 07:43 Dose: 1 tab Pantoprazole Sodium (Protonix) 40 mg PO QAM [facility] Stop: 12/12/18 08:59 Last Admin: 11/12/18 07:42 Dose: 40 mg Potassium Chloride (Klor-Con M20) 20 meq PO Q48H [facility] Stop: 12/11/18 20:59 Last Admin: 11/11/18 21:10 Dose: 20 meq Discontinued Medications Albuterol (Duoneb) 3 ml NEB NOW STA Stop: 11/11/18 13:51 Last Admin: 11/11/18 14:24 Dose: 3 ml Albuterol (Duoneb) 3 ml NEB NOW STA Stop: 11/11/18 15:03 Last Admin: 11/11/18 15:07 Dose: 3 ml Furosemide (Lasix) 40 mg IV NOW STA Stop: 11/11/18 16:09 Last Admin: 11/11/18 17:13 Dose: 40 mg Magnesium Sulfate/Dextrose (Magnesium Sulfate / D5w) 1 gm in 100 mls @ 100 mls/ hr IV ONE ONE Stop: 11/11/18 17:07 Last Infusion: 11/11/18 18:13 Dose: 0 mls/hr Admin: 11/11/18 17:13 Dose: 100 mls/hr Piperacillin Sod/Tazobactam Sod (Zosyn) 4.5 gm in 120 mls @ 240 mls/hr IV NOW ONE Stop: 11/11/18 16:37 Last Infusion: 11/11/18 17:51 Dose: 0 mls/hr Admin: 11/11/18 17:13 Dose: 240 mls/hr Vancomycin HCl 1,000 mg/ (Sodium Chloride) 520 mls @ 200 mls/hr IV NOW ONE Stop: 11/11/18 18:43 Last Infusion: 11/11/18 21:07 Dose: 0 mls/hr Admin: 11/11/18 17:54 Dose: 200 mls/hr Sodium Chloride (Nss 1000ml) 500 mls @ 999 mls/hr IV .Q31M ONE Stop: 11/11/18 17:21 Last Infusion: 11/11/18 17:51 Dose: 0 mls/hr Admin: 11/11/18 17:18 Dose: 999 mls/hr Furosemide 40 mg/ Syringe 5 mls @ 4 mls/min IV [id number] [facility] Stop: 12/12/18 08:59 Last Admin: 11/12/18 07:47 Dose: 4 mls/min Methylprednisolone (Solumedrol) 60 mg IV NOW STA Stop: 11/11/18 16:57 Last Admin: 11/11/18 17:20 Dose: 60 mg Miscellaneous Information (Consult) 1 ea N/A UD ONE Stop: 11/11/18 16:09 Last Admin: 11/12/18 00:42 Dose: 1 ea Medical Decision Making Differential Diagnosis Differential diagnosis: Etiologies such as infections, reactive airway disease, COPD, pneumonia, pleural effusion, pulmonary edema, ARDS, pneumothorax, CHF, cardiac ischemia, cardiac tamponade, dysrhythmia, anemia, pulmonary embolism, musculoskeletal, gastrointestinal process, as well as others were entertained. Medical Records Attestation: I reviewed the patient's medical records. Home Medications Current Medication List: was personally reviewed by me Laboratory Data Attestation: I reviewed the patient's lab results. Result diagrams: 11/12/18 05:55 11/12/18 15:47 Lab Results 11/11/18 11/11/18 11/11/18 Range/Units 14:15 14:15 14:15 WBC 6.98 (4.8-10.8) K/uL RBC 3.72 L (4.7-6.1) M/uL Hgb 10.5 L (14.0-18.0) g/dL Hct 32.8 L (42-52) % MCV 88.2 (80-100) fL MCH 28.2 (25-34) pg MCHC 32.0 (32-36) g/dL RDW Std Deviation 68.1 H (36.4-46.3) fL RDW Coeff of Molly 21.0 H (11.5-14.5) % Plt Count 403 H (130-400) K/uL MPV 10.2 (7.4-10.4) fL Immature Gran % (Auto) 1.6 % Neut % (Auto) 70.9 % Lymph % (Auto) 6.2 % [place] % (Auto) 20.6 % Eos % (Auto) 0.6 % Baso % (Auto) 0.1 % Immature Gran # (Auto) 0.11 H (0.00-0.02) K/uL Neut # (Auto) 4.95 (1.4-6.5) K/uL Lymph # (Auto) 0.43 L (1.2-3.4) K/uL [place] # (Auto) 1.44 H (0.11-0.59) K/uL Eos # (Auto) 0.04 (0-0.5) K/uL Baso # (Auto) 0.01 (0-0.2) K/uL Anisocytosis Present Rouleaux Sodium 131 L (136-145) mmol/L Potassium 4.6 (3.5-5.1) mmol/L Chloride 100 (98-107) mmol/L Carbon Dioxide 24 (21-32) mmol/L Anion Gap 7.0 (3-11) BUN 21 H (7-18) mg/dl Creatinine 1.00 (0.6-1.4) mg/dl Est Cr Clr Drug Dosing Not Reportable Est GFR ( Amer) 85.6 Est GFR (Non-Af Amer) 73.8 BUN/Creatinine Ratio 21.4 H (10-20) Glucose 232 H (70-99) mg/dl POC Glucose (70-99) POC Lactic Acid Oscar (0.90-1.70) mmol/L Lactate (0.4-2.0) mmol/L Calcium 8.8 (8.5-10.1) mg/dl Phosphorus (2.5-4.9) mg/dl Magnesium 1.7 L (1.8-2.4) mg/dl Total Bilirubin 0.6 (0.2-1) mg/dl AST 12 L (15-37) U/L ALT 24 (12-78) U/L Alkaline Phosphatase 173 H (45-117) U/L Troponin I 0.019 (0-0.045) ng/ml NT-Pro-B Natriuret Pep 19097 H (0-900) pg/ml Total Protein 7.1 (6.4-8.2) gm/dl Albumin 2.5 L (3.4-5.0) gm/dl Globulin 4.6 H (2.5-4.0) gm/dl Albumin/Globulin Ratio 0.5 L (0.9-2) Procalcitonin 0.15 (0-0.5) ng/ml Nasal Screen MRSA (PCR) (Negative) 11/11/18 11/11/18 11/11/18 Range/Units 16:48 18:18 20:11 WBC (4.8-10.8) K/uL RBC (4.7-6.1) M/uL Hgb (14.0-18.0) g/dL Hct (42-52) % MCV (80-100) fL MCH (25-34) pg MCHC (32-36) g/dL RDW Std Deviation (36.4-46.3) fL RDW Coeff of Molly (11.5-14.5) % Plt Count (130-400) K/uL MPV (7.4-10.4) fL Immature Gran % (Auto) % Neut % (Auto) % Lymph % (Auto) % [place] % (Auto) % Eos % (Auto) % Baso % (Auto) % Immature Gran # (Auto) (0.00-0.02) K/uL Neut # (Auto) (1.4-6.5) K/uL Lymph # (Auto) (1.2-3.4) K/uL [place] # (Auto) (0.11-0.59) K/uL Eos # (Auto) (0-0.5) K/uL Baso # (Auto) (0-0.2) K/uL Anisocytosis Rouleaux Sodium (136-145) mmol/L Potassium (3.5-5.1) mmol/L Chloride (98-107) mmol/L Carbon Dioxide (21-32) mmol/L Anion Gap (3-11) BUN (7-18) mg/dl Creatinine (0.6-1.4) mg/dl Est Cr Clr Drug Dosing Est GFR ( Amer) Est GFR (Non-Af Amer) BUN/Creatinine Ratio (10-20) Glucose (70-99) mg/dl POC Glucose 225 H (70-99) POC Lactic Acid Oscar 3.34 H (0.90-1.70) mmol/L Lactate 4.2 H* (0.4-2.0) mmol/L Calcium (8.5-10.1) mg/dl Phosphorus (2.5-4.9) mg/dl Magnesium (1.8-2.4) mg/dl Total Bilirubin (0.2-1) mg/dl AST (15-37) U/L ALT (12-78) U/L Alkaline Phosphatase (45-117) U/L Troponin I (0-0.045) ng/ml NT-Pro-B Natriuret Pep (0-900) pg/ml Total Protein (6.4-8.2) gm/dl Albumin (3.4-5.0) gm/dl Globulin (2.5-4.0) gm/dl Albumin/Globulin Ratio (0.9-2) Procalcitonin (0-0.5) ng/ml Nasal Screen MRSA (PCR) (Negative) 11/11/18 11/12/18 11/12/18 Range/Units 22:45 05:55 05:55 WBC 5.04 (4.8-10.8) K/uL RBC 3.36 L (4.7-6.1) M/uL Hgb 9.4 L (14.0-18.0) g/dL Hct 29.5 L (42-52) % MCV 87.8 (80-100) fL MCH 28.0 (25-34) pg MCHC 31.9 L (32-36) g/dL RDW Std Deviation 66.0 H (36.4-46.3) fL RDW Coeff of Molly 20.6 H (11.5-14.5) % Plt Count 420 H (130-400) K/uL MPV 9.8 (7.4-10.4) fL Immature Gran % (Auto) 1.0 % Neut % (Auto) 84.2 % Lymph % (Auto) 7.5 % [place] % (Auto) 7.1 % Eos % (Auto) 0.0 % Baso % (Auto) 0.2 % Immature Gran # (Auto) 0.05 H (0.00-0.02) K/uL Neut # (Auto) 4.24 (1.4-6.5) K/uL Lymph # (Auto) 0.38 L (1.2-3.4) K/uL [place] # (Auto) 0.36 (0.11-0.59) K/uL Eos # (Auto) 0.00 (0-0.5) K/uL Baso # (Auto) 0.01 (0-0.2) K/uL Anisocytosis Present Rouleaux 1+ Sodium 134 L (136-145) mmol/L Potassium 4.3 (3.5-5.1) mmol/L Chloride 99 (98-107) mmol/L Carbon Dioxide 25 (21-32) mmol/L Anion Gap 10.0 (3-11) BUN 24 H (7-18) mg/dl Creatinine 1.20 (0.6-1.4) mg/dl Est Cr Clr Drug Dosing 40.6 Est GFR ( Amer) 68.6 Est GFR (Non-Af Amer) 59.2 BUN/Creatinine Ratio 20.0 (10-20) Glucose 241 H (70-99) mg/dl POC Glucose (70-99) POC Lactic Acid Oscar (0.90-1.70) mmol/L Lactate (0.4-2.0) mmol/L Calcium 8.9 (8.5-10.1) mg/dl Phosphorus (2.5-4.9) mg/dl Magnesium 2.0 (1.8-2.4) mg/dl Total Bilirubin (0.2-1) mg/dl AST (15-37) U/L ALT (12-78) U/L Alkaline Phosphatase (45-117) U/L Troponin I (0-0.045) ng/ml NT-Pro-B Natriuret Pep (0-900) pg/ml Total Protein (6.4-8.2) gm/dl Albumin (3.4-5.0) gm/dl Globulin (2.5-4.0) gm/dl Albumin/Globulin Ratio (0.9-2) Procalcitonin (0-0.5) ng/ml Nasal Screen MRSA (PCR) Negative (Negative) 11/12/18 11/12/18 11/12/18 Range/Units 05:55 07:12 11:37 WBC (4.8-10.8) K/uL RBC (4.7-6.1) M/uL Hgb (14.0-18.0) g/dL Hct (42-52) % MCV (80-100) fL MCH (25-34) pg MCHC (32-36) g/dL RDW Std Deviation (36.4-46.3) fL RDW Coeff of Molly (11.5-14.5) % Plt Count (130-400) K/uL MPV (7.4-10.4) fL Immature Gran % (Auto) % Neut % (Auto) % Lymph % (Auto) % [place] % (Auto) % Eos % (Auto) % Baso % (Auto) % Immature Gran # (Auto) (0.00-0.02) K/uL Neut # (Auto) (1.4-6.5) K/uL Lymph # (Auto) (1.2-3.4) K/uL [place] # (Auto) (0.11-0.59) K/uL Eos # (Auto) (0-0.5) K/uL Baso # (Auto) (0-0.2) K/uL Anisocytosis Rouleaux Sodium (136-145) mmol/L Potassium (3.5-5.1) mmol/L Chloride (98-107) mmol/L Carbon Dioxide (21-32) mmol/L Anion Gap (3-11) BUN (7-18) mg/dl Creatinine (0.6-1.4) mg/dl Est Cr Clr Drug Dosing Est GFR ( Amer) Est GFR (Non-Af Amer) BUN/Creatinine Ratio (10-20) Glucose (70-99) mg/dl POC Glucose 258 H 280 H (70-99) POC Lactic Acid Oscar (0.90-1.70) mmol/L Lactate 2.6 H* (0.4-2.0) mmol/L Calcium (8.5-10.1) mg/dl Phosphorus (2.5-4.9) mg/dl Magnesium (1.8-2.4) mg/dl Total Bilirubin (0.2-1) mg/dl AST (15-37) U/L ALT (12-78) U/L Alkaline Phosphatase (45-117) U/L Troponin I (0-0.045) ng/ml NT-Pro-B Natriuret Pep (0-900) pg/ml Total Protein (6.4-8.2) gm/dl Albumin (3.4-5.0) gm/dl Globulin (2.5-4.0) gm/dl Albumin/Globulin Ratio (0.9-2) Procalcitonin (0-0.5) ng/ml Nasal Screen MRSA (PCR) (Negative) 11/12/18 11/12/18 11/12/18 Range/Units 15:47 16:25 20:21 WBC (4.8-10.8) K/uL RBC (4.7-6.1) M/uL Hgb (14.0-18.0) g/dL Hct (42-52) % MCV (80-100) fL MCH (25-34) pg MCHC (32-36) g/dL RDW Std Deviation (36.4-46.3) fL RDW Coeff of Molly (11.5-14.5) % Plt Count (130-400) K/uL MPV (7.4-10.4) fL Immature Gran % (Auto) % Neut % (Auto) % Lymph % (Auto) % [place] % (Auto) % Eos % (Auto) % Baso % (Auto) % Immature Gran # (Auto) (0.00-0.02) K/uL Neut # (Auto) (1.4-6.5) K/uL Lymph # (Auto) (1.2-3.4) K/uL [place] # (Auto) (0.11-0.59) K/uL Eos # (Auto) (0-0.5) K/uL Baso # (Auto) (0-0.2) K/uL Anisocytosis Rouleaux Sodium 133 L (136-145) mmol/L Potassium 4.2 (3.5-5.1) mmol/L Chloride 99 (98-107) mmol/L Carbon Dioxide 25 (21-32) mmol/L Anion Gap 9.0 (3-11) BUN 32 H (7-18) mg/dl Creatinine 1.54 H D (0.6-1.4) mg/dl Est Cr Clr Drug Dosing 31.7 Est GFR ( Amer) 50.8 Est GFR (Non-Af Amer) 43.8 BUN/Creatinine Ratio 20.7 H (10-20) Glucose 113 H (70-99) mg/dl POC Glucose 132 H 199 H (70-99) POC Lactic Acid Oscar (0.90-1.70) mmol/L Lactate (0.4-2.0) mmol/L Calcium 8.9 (8.5-10.1) mg/dl Phosphorus 3.5 (2.5-4.9) mg/dl Magnesium 2.1 (1.8-2.4) mg/dl Total Bilirubin (0.2-1) mg/dl AST (15-37) U/L ALT (12-78) U/L Alkaline Phosphatase (45-117) U/L Troponin I (0-0.045) ng/ml NT-Pro-B Natriuret Pep (0-900) pg/ml Total Protein (6.4-8.2) gm/dl Albumin (3.4-5.0) gm/dl Globulin (2.5-4.0) gm/dl Albumin/Globulin Ratio (0.9-2) Procalcitonin (0-0.5) ng/ml Nasal Screen MRSA (PCR) (Negative) Imaging Data Attestation: I personally reviewed and interpreted this imaging study as follows : Radiologist's Impression: Radiology results as stated below per my review and the radiologist's interpretation: XR chest 1V portable CLINICAL HISTORY: 72 years-old Male presenting with sob. TECHNIQUE: Portable upright AP view of the chest was obtained. COMPARISON: 10/20/2018. FINDINGS: Left subclavian Mediport terminates in the superior cavoatrial junction. Cardiac silhouette mildly enlarged. Atherosclerosis of aortic arch. The underlying left upper lobe cavitary lesion is now well demonstrated though there is patchy left lung opacity and left lung volume loss. Relative radiolucency of the right upper lung. Dense opacity in the right lung base has increased from prior. Mild pleural thickening and/or trace right pleural effusion. Osseous structures normal. IMPRESSION: 1. Increased density of the right lower lung compatible with worsening infiltrate/pneumonia or aspiration. 2. Left upper lobe cavitary lesion better demonstrated on recent chest CT from 10/26/2018. 3. Emphysema. Electronically signed by: Jeffrey Frances M.D. 11/11/2018 2:15 PM ECG Data Attestation: I personally reviewed and interpreted this ECG as follows: Indication: tachycardia Rate (beats per minute): 124 Rhythm: normal sinus Findings: + other (normal axis and nomral intervals); no PAC, no PVC, no ST depression, no ST elevation, no acute ischemic change and no ectopy Blood Pressure Blood Pressure Findings: Low blood pressure Blood Pressure Disposition: further management by hospitalist ASA Narrative Pt with complicated cardiac and pulmonary PMHx including prior intubation for respiratory failure. Pt presented hypoxic with increased WOB and was found to have pneumonia and CHF. After initial tx directed at possible recurrent pneumonia and COPD without significant improvement, lasix ordered after review of cxr and labs and IV antibiotics added. Pt with borderling low BP, however due to low EF and CHF, pt only given 500 ml bolus. After vewied of EMR, pt with historically borderline low BP's. Given abnormal VS, multifactorial dyspnea, and possible evolving sepsis, case discussed with the hospitalist for additional evaluation and mgmt. Cultures sent. Lactate acid elevated. Steroids added due to copd. Pt oxygen improved on 4 lpm NC. Pt and aware of all results and in agreement with plan. Pt rechecked multiple times. No increased WOB. Impression & Plan Dyspnea, COPD exacerbation, PNA (pneumonia), CHF (congestive heart failure), Hypoxia, Sepsis Critical Care Time I have personally spent 35 minutes of critical care time in the direct management of this patient. This includes bedside care, interpretation of diagnostic studies, and testing, discussion with consultants, patient, and family members, and other required patient management activities. This 35 minutes is in excess of all separately billable procedures. Critical Care Time: Yes Total Critical Care Time: 35 Discharge Plan Visit Data *Final* Discharge Date/Time: 11/11/18 18:44 Chief Complaint: Shortness of Breath/Dyspnea Stated Complaint: SOB ED Provider: Jaci Grace Discharge Problem: Dyspnea, COPD exacerbation, PNA (pneumonia), CHF (congestive heart failure), Hypoxia, Sepsis Patient Disposition: Admitted As Inpatient Condition: Serious Discharge Instructions Interventions: ED Discharge Assessment Last Done: 11/11/18 18:44 The scribe's documentation has been prepared under my direction and personally reviewed by me in its entirety. I confirm that the note above accurately reflects all work, treatment, procedures, and medical decision making performed by me.
[2018-11-12] MEDS ORDERED: NURSING DECISION MEDICATION ONE (22:55)
[2018-11-12] MEDS ORDERED: SODIUM CHLORIDE 0.65% NA SOLN 45 ML (OCEAN) PRN (23:47)
[2018-11-13] MEDS: PIPERACILLIN/TAZOBACTAM 3.375 GM in DEXTROSE 5% 100 ML IV SCH ×3 (05:11→21:30)
[2018-11-13 06:25] LABS: Basophils # (auto) 0.01 K/uL (0-0.2); Basophils % (auto) 0.1 %; Eosinophils # (auto) 0.09 K/uL (0-0.5); Hematocrit (blood only) 27.7 % (42-52); Immature Granulocytes # (auto) 0.09 K/uL (0.00-0.02); Lymphocytes # (auto) 1.06 K/uL (1.2-3.4); Lymphocytes % (auto) 11.9 %; Mean Corpuscular Hgb Conc 32.5 g/dL (32-36); Mean Corpuscular Volume 87.9 fL (80-100); Mean Platelet Volume 9.7 fL (7.4-10.4); Monocytes # (auto) 1.36 K/uL (0.11-0.59); Monocytes % (auto) 15.2 %; Neutrophils # (auto) 6.33 K/uL (1.4-6.5); Neutrophils % (auto) 70.8 %; Platelet Count 393 K/uL (130-400); RDW Coefficient of Variation 20.8 % (11.5-14.5); RDW Standard Deviation 66.2 fL (36.4-46.3); Red Blood Count 3.15 M/uL (4.7-6.1); White Blood Count 8.94 K/uL (4.8-10.8)
[2018-11-13 06:56] LABS: Anisocytosis Present; BUN Creatinine Ratio 28.4 (10-20); Calcium 8.6 mg/dl (8.5-10.1); Est GFR (Non-African American) 49.1
[2018-11-13] MEDS: CYANOCOBALAMIN 500 MCG TABLET (VITAMIN B-12) PO SCH (07:43)
[2018-11-13] MEDS: ATORVASTATIN 40 MG TAB PO SCH (07:43)
[2018-11-13] MEDS: METOPROLOL SUCC 25MG EXT REL TAB PO SCH (07:43)
[2018-11-13] MEDS: FERROUS SULFATE 325 MG TAB PO SCH ×2 (07:44→20:07)
[2018-11-13] MEDS: CEROVITE ADV FORMULA TAB PO SCH (07:44)
[2018-11-13] MEDS: ASPIRIN 81 MG ECTAB PO SCH (07:44)
[2018-11-13] MEDS: MAGNESIUM OXIDE 400 MG TAB PO SCH (07:44)
[2018-11-13] MEDS: PANTOprazole 40 MG TAB PO SCH (07:44)
[2018-11-13] MEDS: FINASTERIDE 5 MG TAB PO SCH (07:45)
[2018-11-13] MEDS: HEPARIN SOD 5,000 UNIT/0.5 ML VIAL SQ SCH ×2 (07:45→20:07)
[2018-11-13] MEDS: INSULIN ASPART 100 UNITS/ML 3 ML PEN SC SCH ×4 (07:46→20:25)
[2018-11-13] MEDS: INSULIN GLARGINE SOLOSTAR 100 UNITS/ML 3 ML PEN SC SCH (07:47)
--- NOTE | 2018-11-13 10:49 | Infectious Disease Consult ---
Date of Consultation November 13, 2018 Assessment & Plan (1) Pneumonia: Patient with possible worsening pneumonia with previous history of Aspergillus treated with voriconazole. I would think worsening Aspergillus infection would be unlikely given that patient had improved previously with therapy and had continued it after short discontinuation during previous hospital admission. Would continue patient on Zosyn for now, I have ordered pro -calcitonin to better evaluate, would hold voriconazole for now especially if surgery planned where more definitive cultures can be obtained. Will discuss with all involved. Will follow. (2) Cavitary lesion of lung: (3) Aspergillus fumigatus: History of Present Illness Reason for Consultation: ? Need to restart voriconazole for Aspergillus Attending Physician: Jace Ontiveros History of Present Illness 72-year-old male known to me from previous infectious consultation with history of lung cancer status post chemotherapy and radiation therapy, admitted in September with left-sided cavitary lung process, negative bronchoscopy for recurrent cancer, previous culture positive for Aspergillus. He was being treated with voriconazole and had been doing well until the end of the year when he developed symptoms of upper respiratory tract infection requiring readmission to the hospital. He was discharged home, but now readmitted with several days of worsening shortness of breath and dyspnea on exertion. Chest x- ray with worsening left lower lobe infiltrate. No significant hemoptysis. No report of fevers. Does note that multiple residents at his nursing facility were ill with respiratory tract infections. Has been seen by thoracic surgery and plans for possible surgery this admission being considered. Patient has been started empirically on Zosyn, cultures are pending. Allergies Allergy/AdvReac Type Severity Reaction Status Date / Time No Known Allergies Allergy Verified 11/11/18 15:07 Home Medications Home Medications Medication Instructions Recorded Confirmed Type ferrous sulfate 325 mg PO BID 09/17/18 11/11/18 History finasteride 5 mg PO QAM 09/17/18 11/11/18 History magnesium oxide 400 mg PO QAM 09/17/18 11/11/18 History metformin 1,000 mg PO BID 09/17/18 11/11/18 History multivitamin with minerals 1 tab PO QAM 09/17/18 11/11/18 History [Multiple Vitamin-Minerals] pantoprazole 40 mg PO QAM 09/17/18 11/11/18 History aspirin 81 mg PO QAM 10/14/18 11/11/18 History cyanocobalamin (vitamin B-12) 1,000 mcg PO QAM #30 tab 10/27/18 11/11/18 Rx [Vitamin B-12] melatonin 1 mg PO HS #30 tab 10/27/18 11/11/18 Rx metoprolol succinate 12.5 mg PO QAM #30 tab 10/27/18 11/11/18 Rx nitroglycerin 0.4 mg SUBLINGUAL Q5M PRN #30 tab 10/27/18 11/11/18 Rx nut.tx.gluc intol,lf,soy-fiber 1 ea PO TIDM #6399 ml 10/27/18 11/11/18 Rx [Boost Glucose Control] furosemide [Lasix] 20 mg PO Q OTHER DAY 11/11/18 11/11/18 History insulin aspart U-100 [Novolog 0 sliding scale dose SUBCUT ACHS 11/11/18 History Flexpen U-100 Insulin] potassium chloride [Klor-Con M20] 20 meq PO Q OTHER DAY 11/11/18 11/11/18 History Patient History Medical History Aspergillus fumigatus Acute on chronic systolic (congestive) heart failure HI (myocardial infarction) (Resolved) Small cell lung cancer (Acute 01/27/16) "DIAGNOSIS: Lung, CHATA, small cell lung carcinoma, [id number], stage IIIA TREATMENT: 1. Status post completion of combined radiation and chemotherapy. Radiation completed 05/02/2016 received 7000 cGy 2. 2 addition cycles of cisplatin/etoposide - Dr. Jeffery Ash" On 05/09/16 13:18 Beatris Curiel wrote "DIAGNOSIS: Lung, CHATA, small cell lung carcinoma, [id number], stage IIIA, limited stage Status post completion of combined radiation and chemotherapy. Radiation completed 05/02/2016 received 7000 cGy" On 05/09/16 12:53 Beatris Curiel wrote "DIAGNOSIS: Lung, CHATA, small cell lung carcinoma, [id number], stage IIIA, limited stage Status post completion of combined radiation and chemotherapy. Radiation completed 05/01/2016 received 7000 cGy" On 02/23/16 13:12 Jacinta Poole wrote "DIAGNOSIS: Lung, CHATA, small cell lung carcinoma, [id number], stage IIIA, limited stage" CAD (coronary artery disease) PVD (peripheral vascular disease) Hx of myocardial infarction HTN (hypertension) BPH (benign prostatic hyperplasia) HLD (hyperlipidemia) Anemia CKD stage 3 due to type 2 diabetes mellitus COPD (chronic obstructive pulmonary disease) DM II (diabetes mellitus, type II), controlled Consolidation lung Left upper lobe pneumonia Pneumonia Surgical History History of transurethral resection of prostate History of heart artery stent (Chronic) Family History Other Diabetes Heart disease Social History marital status: Current Living Situation: Spouse current occupational status: retired Other Information That Helps Us Care for You: No Feels Safe at Home: Yes Safety Concerns: Feels Safe At This Time Smoking Status: Former smoker Do You Dip or Chew Tobacco: No Second Hand Exposure: No Tobacco Cessation Education Requested by Patient: No Hx Alcohol Use: No Hx Substance Use: No Beliefs That Will Affect Care: None Communication Ability: Effective Review of Systems All systems were reviewed and are negative except as per HPI Physical Exam 2 Vital Signs (Past 24 Hours): Last Vital Signs Temp 36.4 C L 11/13/18 07:05 Pulse 95 H 11/13/18 07:05 Resp 17 11/13/18 07:05 BP 92/60 L 11/13/18 07:05 Pulse Ox 94 11/13/18 07:05 Constitutional: WD/WN, vitals as above comfortable; no acute distress Eyes: PERRL, conjunctivae normal, anicteric sclerae ENMT: external ear and nose normal, oropharynx normal Neck: trachea midline, no thyromegaly neck nontender Respiratory: no respiratory distress and no dullness to percussion Auscultation: + rales (Both bases) Cardiovascular: Rate/Rhythm: regular rate and regular rhythm Heart Sounds: normal S1 and normal S2; no gallop, no murmur and no cardiac rub Vessels: normal peripheral pulses; no JVD Gastrointestinal (Abdomen): normal bowel sounds, soft, nontender, no hepatosplenomegaly Musculoskeletal: no cyanosis or clubbing, extremities motor strength 5/5 Spine: thoracic spine normal to inspection and lumbar spine normal to inspection ; no cervical spinal tenderness Skin: no rashes, warm and dry normal turgor; no lesions Neurologic: patellar DTR's 2+ bilat, sensation intact no focal motor deficits Psychiatric: A+Ox3, euthymic affect Orientation: cooperative Lymphatic: no cervical or axillary lymphadenopathy no inguinal lymphadenopathy Results & Data Laboratory Results Short CBC 11/13/18 Range/Units 06:15 WBC 8.94 (4.8-10.8) K/uL Hgb 9.0 L (14.0-18.0) g/dL Hct 27.7 L (42-52) % Plt Count 393 (130-400) K/uL BMP 11/12/18 11/13/18 15:47 06:15 Sodium 133 L 136 Potassium 4.2 4.0 Chloride 99 99 Carbon Dioxide 25 28 BUN 32 H 40 H Creatinine 1.54 H D 1.40 Glucose 113 H 144 H Calcium 8.9 8.6 Diagnostic Findings Microbiology 11/11/18 16:38 Blood Blood Culture - Preliminary No growth to date. 11/11/18 16:38 Blood Blood Culture - Preliminary No growth to date. XR chest 1V portable CLINICAL HISTORY: 72 years-old Male presenting with sob. TECHNIQUE: Portable upright AP view of the chest was obtained. COMPARISON: 10/20/2018. FINDINGS: Left subclavian Mediport terminates in the superior cavoatrial junction. Cardiac silhouette mildly enlarged. Atherosclerosis of aortic arch. The underlying left upper lobe cavitary lesion is now well demonstrated though there is patchy left lung opacity and left lung volume loss. Relative radiolucency of the right upper lung. Dense opacity in the right lung base has increased from prior. Mild pleural thickening and/or trace right pleural effusion. Osseous structures normal. IMPRESSION: 1. Increased density of the right lower lung compatible with worsening infiltrate/pneumonia or aspiration. 2. Left upper lobe cavitary lesion better demonstrated on recent chest CT from 10/26/2018. 3. Emphysema.
[2018-11-13] MEDS: LACTOBACILLUS ACIDOPHILUS (FLORANEX) TAB PO SCH ×2 (12:47→17:06)
--- NOTE | 2018-11-13 13:24 | Cardiology Progress Note ---
Date of Service November 13, 2018 Assessment & Plan (1) Acute respiratory failure with hypoxia: Undoubtedly the etiology of his dyspnea is multifactorial. He has not affected any diuresis since admission. On exam he does not appear to be markedly fluid overloaded. He has no edema. His lung examination is naturally abnormal. He does appear to have Leoncio[place]Barb[place] respiration at times. Affecting some diuresis may be of value although his Lasix has currently been discontinued. Given the discontinuation of his diuretic, increased weight and elevated N terminal proBNP he may benefit from some element of diuresis. This has been frustrated by persistently low blood pressures. Renal function appears stable if not improved. (2) Ischemic cardiomyopathy: Patient is known to have severely reduced LV systolic function. In the past he has been on more aggressive medical regimen but this was reduced recently due to his relative hypotension. Currently continues exclusively on beta-blockade. (3) CAD (coronary artery disease): No current symptoms of angina or coronary insufficiency. At the time of his last admission he did undergo coronary angiography which revealed chronic disease but no acute coronary syndrome. He will continue on a daily aspirin and beta-blockade. Subjective This morning the patient claims to be feeling well overall. However, he still reports an element of dyspnea primarily with activity. Occasionally he will feel brief spells of dyspnea at rest. No chest pain. Claims to be eating well. Physical Exam 2 Vital Signs (Past 24 Hours): Last Vital Signs Temp 36.4 C L 11/13/18 12:15 Pulse 104 H 11/13/18 12:15 Resp 16 11/13/18 12:15 BP 88/61 L 11/13/18 12:15 Pulse Ox 98 11/13/18 12:15 Physical Exam: The patient is alert and oriented. Mood and affect appeared normal. He answered all questions appropriately. HEENT: Pupils are equal and reactive to light and accommodation. Extraocular movements are intact. The sclerae are anicteric. Neuro: Cranial nerves intact Lungs: Clear to auscultation bilaterally. He has good air movement without use of accessory muscles. No rales wh rhonchorous breath sounds throughout all lung watts. No overt rales. No expiratory wheezing. Cardiac: Heart demonstrates a regular rate and rhythm. Normal S1 and S2. No murmurs on examination. Pulses: The patient has palpable radial pulses bilaterally that are equal in intensity Extremities: There was no evidence of hypoperfusion. There is no cyanosis or clubbing. There is no edema. Skin: I did not appreciate any rashes on examination today. Results & Data Laboratory Results Abnormal Lab Results 11/12/18 11/12/18 11/12/18 15:47 16:25 20:21 WBC RBC Hgb Hct MCV MCH MCHC RDW Std Deviation RDW Coeff of Molly Plt Count MPV Immature Gran % (Auto) Neut % (Auto) Lymph % (Auto) Dale % (Auto) Eos % (Auto) Baso % (Auto) Immature Gran # (Auto) Neut # (Auto) Lymph # (Auto) Dale # (Auto) Eos # (Auto) Baso # (Auto) Anisocytosis Sodium 133 L Potassium 4.2 Chloride 99 Carbon Dioxide 25 Anion Gap 9.0 BUN 32 H Creatinine 1.54 H D Est Cr Clr Drug Dosing 31.7 Est GFR ( Amer) 50.8 Est GFR (Non-Af Amer) 43.8 BUN/Creatinine Ratio 20.7 H Glucose 113 H POC Glucose 132 H 199 H Calcium 8.9 Phosphorus 3.5 Magnesium 2.1 11/13/18 11/13/18 11/13/18 06:15 06:15 07:36 WBC 8.94 RBC 3.15 L Hgb 9.0 L Hct 27.7 L MCV 87.9 MCH 28.6 MCHC 32.5 RDW Std Deviation 66.2 H RDW Coeff of Molly 20.8 H Plt Count 393 MPV 9.7 Immature Gran % (Auto) 1.0 Neut % (Auto) 70.8 Lymph % (Auto) 11.9 Dale % (Auto) 15.2 Eos % (Auto) 1.0 Baso % (Auto) 0.1 Immature Gran # (Auto) 0.09 H Neut # (Auto) 6.33 Lymph # (Auto) 1.06 L Dale # (Auto) 1.36 H Eos # (Auto) 0.09 Baso # (Auto) 0.01 Anisocytosis Present Sodium 136 Potassium 4.0 Chloride 99 Carbon Dioxide 28 Anion Gap 9.0 BUN 40 H Creatinine 1.40 Est Cr Clr Drug Dosing 35.0 Est GFR ( Amer) 57.0 Est GFR (Non-Af Amer) 49.1 BUN/Creatinine Ratio 28.4 H Glucose 144 H POC Glucose 140 H Calcium 8.6 Phosphorus Magnesium 2.0 ECG Additional Comments: Sinus rhythm with frequent PVCs _ (1) CAD (coronary artery disease) Associated angina: without angina Coronary Disease-Associated Artery/Lesion type: [place] artery [place] vs. transplanted heart: [place] heart Qualified Code (s): I25.10 - Atherosclerotic heart disease of [place] coronary artery without angina pectoris
--- NOTE | 2018-11-13 13:50 | Progress Note ---
DATE: 11/13/2018 Mr. Aden was seen today. He looks a bit better and sounds better on auscultation. At this point, I am going to plan on doing an Eloesser flap on this admission; however, I would like for him to improve before we do this. My recommendation here would be to continue the antibiotics and I will follow along. I have tentatively planned on doing this next week.
[2018-11-13] MEDS ORDERED: BUMETANIDE 1 MG TAB PO ONE (18:26)
[2018-11-13] MEDS: CARBOHYDRATES FOR HYPOGLYCEMIA PO PRN (20:12)
--- NOTE | 2018-11-13 20:33 | Hospitalist Progress Note ---
Date of Service November 13, 2018 Assessment & Plan (1) PNA (pneumonia): RLL. Day #3 of zosyn. Covering for gram negatives and anaerobes. Concern is that the CHATA cavity is communicating with his airways setting him up for recurrent pneumonia. ID consult and thoracic consults appreciated. Plan 7 days in total. Present on Admission?: Yes (2) Sepsis: 2nd to pneumonia - improved. (3) Acute respiratory failure with hypoxia: 2nd to pneumonia + CHF - improved. Wean O2. 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 Had been on voriconazole but this was stopped in the setting of shock liver during his prior hospital stay. ID recommends holding voriconazole for now. (5) Nonsustained ventricular tachycardia: K, mag wnl. Follow. Will speak with Dr. Chaudhry - need for AICD in light of depressed EF? (6) Severe protein-calorie malnutrition: boost, etc (7) Acute on chronic systolic (congestive) heart failure: improved. IV diuretics have been stopped. remains on oral diuretics. (8) Cavitary lesion of lung: CHATA. Dr. Srivastava from thoracic has seen - planning Eloesser flap to decrease the incidence of airway contamination from the CHATA cavity. (9) CKD stage 3 due to type 2 diabetes mellitus: creatinine stable, BMP in am (10) DM II (diabetes mellitus, type II), controlled: acceptable control at this time (11) DVT prophylaxis: cont heparin BID , daughter updated at bedside today Subjective Patient states "I feel pretty good today". With that said he has dyspnea with minimal exertion. No orthopnea or PND today, however. Appetite improved. Tele - numerous PVCs, several runs of nonsustained V-T. +cough - not much in way of sputum. No fever. Constitutional: no fever, no chills and no body aches Cardiovascular: no chest pain Gastrointestinal: no abdominal pain, no nausea, no vomiting and no diarrhea/ loose stools Physical Exam 2 Vital Signs (Past 24 Hours): Last Vital Signs Temp 36.5 C 11/13/18 19:25 Pulse 79 11/13/18 19:25 Resp 20 11/13/18 19:25 BP 110/67 11/13/18 19:25 Pulse Ox 94 11/13/18 19:25 Constitutional: + thin; no acute distress and not ill appearing ENMT: external ear and nose normal, oropharynx normal Respiratory: normal respiratory effort, lungs clear to auscultation Cardiovascular: Rate/Rhythm: regular rate and regular rhythm Heart Sounds: normal S1 and normal S2 Vessels: + JVD, posterior tibial pulses present and dorsalis pedis pulses present Extremities: no edema Gastrointestinal (Abdomen): normal bowel sounds, soft, nontender, no hepatosplenomegaly Skin: fingernail clubbing Psychiatric: A+Ox3, euthymic affect Results & Data Laboratory Results Laboratory Results - last 24 hr 11/13/18 11/13/18 11/13/18 06:15 06:15 07:36 WBC 8.94 RBC 3.15 L Hgb 9.0 L Hct 27.7 L MCV 87.9 MCH 28.6 MCHC 32.5 RDW Std Deviation 66.2 H RDW Coeff of Molly 20.8 H Plt Count 393 MPV 9.7 Immature Gran % (Auto) 1.0 Neut % (Auto) 70.8 Lymph % (Auto) 11.9 Carter % (Auto) 15.2 Eos % (Auto) 1.0 Baso % (Auto) 0.1 Immature Gran # (Auto) 0.09 H Neut # (Auto) 6.33 Lymph # (Auto) 1.06 L Carter # (Auto) 1.36 H Eos # (Auto) 0.09 Baso # (Auto) 0.01 Anisocytosis Present Sodium 136 Potassium 4.0 Chloride 99 Carbon Dioxide 28 Anion Gap 9.0 BUN 40 H Creatinine 1.40 Est Cr Clr Drug Dosing 35.0 Est GFR ( Amer) 57.0 Est GFR (Non-Af Amer) 49.1 BUN/Creatinine Ratio 28.4 H Glucose 144 H POC Glucose 140 H Calcium 8.6 Magnesium 2.0 11/13/18 11/13/18 11:30 16:23 WBC RBC Hgb Hct MCV MCH MCHC RDW Std Deviation RDW Coeff of Molly Plt Count MPV Immature Gran % (Auto) Neut % (Auto) Lymph % (Auto) [place] % (Auto) Eos % (Auto) Baso % (Auto) Immature Gran # (Auto) Neut # (Auto) Lymph # (Auto) Carter # (Auto) Eos # (Auto) Baso # (Auto) Anisocytosis Sodium Potassium Chloride Carbon Dioxide Anion Gap BUN Creatinine Est Cr Clr Drug Dosing Est GFR ( Amer) Est GFR (Non-Af Amer) BUN/Creatinine Ratio Glucose POC Glucose 202 H 185 H Calcium Magnesium _ (1) PNA (pneumonia) Aspiration pneumonia type: Laterality: right Lung location: lower lobe of lung Pneumonia type: due to unspecified organism Qualified Code(s): J18.1 - Lobar pneumonia, unspecified organism (2) Sepsis Sepsis type: sepsis due to unspecified organism Qualified Code(s): A41.9 - Sepsis, unspecified organism (3) DM II (diabetes mellitus, type II), controlled Diabetes mellitus intermediate insulin use: without intermediate use Diabetes mellitus complication status: with kidney complications Diabetes mellitus complication detail: with chronic kidney disease Diabetic retinopathy severity : Proliferative retinopathy type: Diabetes mellitus macular edema: Laterality: Chronic kidney disease stage: stage 3 (moderate) Qualified Code(s ): E11.22 - Type 2 diabetes mellitus with diabetic chronic kidney disease; N18.3 - Chronic kidney disease, stage 3 (moderate)
[2018-11-14] MEDS: PIPERACILLIN/TAZOBACTAM 3.375 GM in DEXTROSE 5% 100 ML IV SCH ×3 (05:51→21:55)
[2018-11-14 06:24] LABS: Hematocrit (blood only) 29.6 % (42-52); Hemoglobin 9.4 g/dL (14.0-18.0); Mean Corpuscular Hgb Conc 31.8 g/dL (32-36); Mean Corpuscular Volume 88.1 fL (80-100); Mean Platelet Volume 10.1 fL (7.4-10.4); Platelet Count 416 K/uL (130-400); RDW Coefficient of Variation 20.7 % (11.5-14.5); RDW Standard Deviation 66.4 fL (36.4-46.3); Red Blood Count 3.36 M/uL (4.7-6.1); White Blood Count 6.53 K/uL (4.8-10.8)
[2018-11-14 06:57] LABS: BUN Creatinine Ratio 26.3 (10-20); Calcium 8.4 mg/dl (8.5-10.1); Est GFR (African American) 61.7; Est GFR (Non-African American) 53.3; Potassium 3.5 mmol/L (3.5-5.1)
--- NOTE | 2018-11-14 07:35 | XRay Report ---
XR chest 1V portable CLINICAL HISTORY: 72 years-old Male presenting with pneumonia . TECHNIQUE: Portable upright AP view of the chest was obtained. COMPARISON: 11/11/2018, 10/20/2018, and chest CT from 10/26/2018. FINDINGS: Left subclavian Mediport terminates at the superior cavoatrial junction. Atherosclerosis of the aorti c arch. Cardiac silhouette mildly enlarged. Persistent peripheral dense opacity in the left upper jazmin g with central lucency correlating with the known cavitary lesion. Slight increase in right mid to ba silar dense opacity with overlying pleural effusion. Volume of pleural fluid appears to be increasing . Underlying significant heterogeneity of lung markings with relative radiolucency of the right upper lung. Small left pleural effusion unchanged. Degenerative changes of the thoracic spine. IMPRESSION: 1. Increasing size of the right pleural effusion. This may represent a parapneumonic effusion. Empye ma not excluded. 2. Stable to slightly worsened right mid to basilar infiltrate consistent with pneumonia. 3. Severe emphysema. 4. Unchanged appearance of the left upper lobe cavitary lesion. Electronically signed by: Jeffrey Frances M.D. 11/14/2018 7:33 AM
[2018-11-14] MEDS: CYANOCOBALAMIN 500 MCG TABLET (VITAMIN B-12) PO SCH (07:55)
[2018-11-14] MEDS: PANTOprazole 40 MG TAB PO SCH (07:56)
[2018-11-14] MEDS: CEROVITE ADV FORMULA TAB PO SCH (07:56)
[2018-11-14] MEDS: FINASTERIDE 5 MG TAB PO SCH (07:56)
[2018-11-14] MEDS: LACTOBACILLUS ACIDOPHILUS (FLORANEX) TAB PO SCH ×3 (07:56→17:19)
[2018-11-14] MEDS: FERROUS SULFATE 325 MG TAB PO SCH ×2 (07:56→21:56)
[2018-11-14] MEDS: INSULIN ASPART 100 UNITS/ML 3 ML PEN SC SCH ×4 (07:57→21:57)
[2018-11-14] MEDS: HEPARIN SOD 5,000 UNIT/0.5 ML VIAL SQ SCH ×2 (07:58→21:57)
[2018-11-14] MEDS: MAGNESIUM OXIDE 400 MG TAB PO SCH (08:00)
[2018-11-14] MEDS: ASPIRIN 81 MG ECTAB PO SCH (08:00)
[2018-11-14] MEDS: ATORVASTATIN 40 MG TAB PO SCH (08:01)
[2018-11-14] MEDS: METOPROLOL SUCC 25MG EXT REL TAB PO SCH (08:01)
--- NOTE | 2018-11-14 15:19 | Progress Note ---
DATE: 11/14/2018 Mr. Aden was seen today on 11/14/2018. He looks better and feels better. The infiltrate in his right mid and basilar segments remains fairly significant on the x-ray; however, this process has not really changed. I think he gets better aeration in his left lower lobe. At any rate, as he is improving, we want to go ahead and proceed with this Eloesser flap. If that is indeed the case, we will have to remove the port at that time. I have tentatively planning on doing him next week. We will see how he looks over the weekend.
--- NOTE | 2018-11-14 17:35 | Cardiology Progress Note ---
Date of Service November 14, 2018 Assessment & Plan (1) Acute respiratory failure with hypoxia: Clinically he is improved. He did affect a good diuresis yesterday with a single dose of Bumex. Renal function appears stable. I think another dose will help. His breathing is subjectively improved. (2) Ischemic cardiomyopathy: Patient is known to have severely reduced LV systolic function. In the past he has been on more aggressive medical regimen but this was reduced recently due to his relative hypotension. Currently continues exclusively on beta-blockade. Blood pressures are stable. (3) CAD (coronary artery disease): No current symptoms of angina or coronary insufficiency. At the time of his last admission he did undergo coronary angiography which revealed chronic disease but no acute coronary syndrome. He will continue on a daily aspirin and beta-blockade. No recent symptoms of chest discomfort. Subjective Patient claims to be feeling better. He states that his breathing is improved. He is able ambulate around the [place] today with some mild dyspnea but overall better. His strength is improving. His appetite is good. He is able lie more flat in bed. Physical Exam 2 Vital Signs (Past 24 Hours): Last Vital Signs Temp 36.5 C 11/14/18 15:16 Pulse 109 H 11/14/18 15:16 Resp 20 11/14/18 15:16 BP 96/62 L 11/14/18 15:16 Pulse Ox 95 11/14/18 15:16 Physical Exam: The patient is alert and oriented. Mood and affect appeared normal. He answered all questions appropriately. HEENT: Pupils are equal and reactive to light and accommodation. Extraocular movements are intact. The sclerae are anicteric. Neuro: Cranial nerves intact Cardiac: Heart demonstrates an irregular rate and rhythm. Pulses: The patient has palpable radial pulses bilaterally that are equal in intensity Extremities: There was no evidence of hypoperfusion. There is no cyanosis or clubbing. There is no edema. Skin: I did not appreciate any rashes on examination today. Results & Data Laboratory Results Abnormal Lab Results 11/13/18 11/13/18 11/13/18 20:10 20:10 20:27 WBC RBC Hgb Hct MCV MCH MCHC RDW Std Deviation RDW Coeff of Molly Plt Count MPV Sodium Potassium Chloride Carbon Dioxide Anion Gap BUN Creatinine Est Cr Clr Drug Dosing Est GFR ( Amer) Est GFR (Non-Af Amer) BUN/Creatinine Ratio Glucose POC Glucose 58 L* 55 L* 88 Calcium 11/13/18 11/13/18 11/14/18 21:31 23:36 05:45 WBC 6.53 RBC 3.36 L Hgb 9.4 L Hct 29.6 L MCV 88.1 MCH 28.0 MCHC 31.8 L RDW Std Deviation 66.4 H RDW Coeff of Molly 20.7 H Plt Count 416 H MPV 10.1 Sodium Potassium Chloride Carbon Dioxide Anion Gap BUN Creatinine Est Cr Clr Drug Dosing Est GFR ( Amer) Est GFR (Non-Af Amer) BUN/Creatinine Ratio Glucose POC Glucose 102 H 157 H Calcium 11/14/18 11/14/18 11/14/18 05:45 07:12 11:18 WBC RBC Hgb Hct MCV MCH MCHC RDW Std Deviation RDW Coeff of Molly Plt Count MPV Sodium 138 Potassium 3.5 Chloride 100 Carbon Dioxide 27 Anion Gap 10.0 BUN 35 H Creatinine 1.31 Est Cr Clr Drug Dosing 37.0 Est GFR ( Amer) 61.7 Est GFR (Non-Af Amer) 53.3 BUN/Creatinine Ratio 26.3 H Glucose 105 H POC Glucose 120 H 189 H Calcium 8.4 L 11/14/18 16:29 WBC RBC Hgb Hct MCV MCH MCHC RDW Std Deviation RDW Coeff of Molly Plt Count MPV Sodium Potassium Chloride Carbon Dioxide Anion Gap BUN Creatinine Est Cr Clr Drug Dosing Est GFR ( Amer) Est GFR (Non-Af Amer) BUN/Creatinine Ratio Glucose POC Glucose 181 H Calcium _ (1) CAD (coronary artery disease) Coronary Disease-Associated Artery/Lesion type: [place] artery [place] vs. transplanted heart: [place] heart Associated angina: without angina Qualified Code(s): I25.10 - Atherosclerotic heart disease of [place] coronary artery without angina pectoris
[2018-11-14] MEDS ORDERED: BUMETANIDE 1 MG TAB PO ONE (18:00)
--- NOTE | 2018-11-14 20:25 | Hospitalist Progress Note ---
Date of Service November 14, 2018 Assessment & Plan (1) PNA (pneumonia): RLL. Day #4 of zosyn. Covering for gram negatives and anaerobes. Concern is that the CHATA cavity is communicating with his airways setting him up for recurrent pneumonia. ID consult and thoracic consults appreciated. Plan 7 days in total. (2) Sepsis: 2nd to pneumonia - resolved. (3) Acute respiratory failure with hypoxia: Improving. Wean O2 off. Does not wear chronic O2 at home. 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 Had been on voriconazole but this was stopped in the setting of shock liver during his prior hospital stay. ID recommends holding voriconazole for now. (5) Nonsustained ventricular tachycardia: need for AICD in light of depressed EF? (6) Severe protein-calorie malnutrition: boost, etc (7) Acute on chronic systolic (congestive) heart failure: improved. weight is about 1 kg away from his d/c weight from previous hospitalization. IV diuretics have been stopped. remains on oral diuretics. cont low-dose beta veronica. (8) Cavitary lesion of lung: CHATA. Dr. Srivastava from thoracic has seen - planning Eloesser flap to decrease the incidence of airway contamination from the CHATA cavity. This is tentatively scheduled for Monday of this coming week. (9) CKD stage 3 due to type 2 diabetes mellitus: creatinine stable, BMP in am (10) DM II (diabetes mellitus, type II), controlled: acceptable control at this time (11) DVT prophylaxis: cont heparin BID Subjective overall continues to feel better no dyspnea at rest but has BEE w/ walking to bathroom tele stable, periods of tachycardia, periods of nonsustained V-tach no chest pain minimal cough appetite improved he states consistently he is "not going to give him up" Dr. Srivastava tentatively planning surgery on his left lung on Monday of this coming week Constitutional: no fever Ear, Nose, Mouth, Throat: + nasal congestion Respiratory: no hemoptysis Cardiovascular: no chest pain Gastrointestinal: no diarrhea/loose stools Physical Exam 2 Vital Signs (Past 24 Hours): Last Vital Signs Temp 36.4 C L 11/14/18 19:13 Pulse 103 H 11/14/18 19:13 Resp 16 11/14/18 19:13 BP 99/68 L 11/14/18 19:13 Pulse Ox 97 11/14/18 19:13 Constitutional: + thin; no acute distress ENMT: external ear and nose normal, oropharynx normal Respiratory: normal respiratory effort, lungs clear to auscultation Cardiovascular: Rate/Rhythm: regular rhythm and + tachycardic Heart Sounds : normal S1 and normal S2; no murmur Vessels: + JVD, posterior tibial pulses present and dorsalis pedis pulses present Extremities: no edema Gastrointestinal (Abdomen): normal bowel sounds, soft, nontender, no hepatosplenomegaly Psychiatric: A+Ox3, euthymic affect Results & Data Laboratory Results Laboratory Results - last 24 hr 11/13/18 11/13/18 11/13/18 20:10 20:10 20:27 WBC RBC Hgb Hct MCV MCH MCHC RDW Std Deviation RDW Coeff of Molly Plt Count MPV Sodium Potassium Chloride Carbon Dioxide Anion Gap BUN Creatinine Est Cr Clr Drug Dosing Est GFR ( Amer) Est GFR (Non-Af Amer) BUN/Creatinine Ratio Glucose POC Glucose 58 L* 55 L* 88 Calcium 11/13/18 11/13/18 11/14/18 21:31 23:36 05:45 WBC 6.53 RBC 3.36 L Hgb 9.4 L Hct 29.6 L MCV 88.1 MCH 28.0 MCHC 31.8 L RDW Std Deviation 66.4 H RDW Coeff of Molly 20.7 H Plt Count 416 H MPV 10.1 Sodium Potassium Chloride Carbon Dioxide Anion Gap BUN Creatinine Est Cr Clr Drug Dosing Est GFR ( Amer) Est GFR (Non-Af Amer) BUN/Creatinine Ratio Glucose POC Glucose 102 H 157 H Calcium 11/14/18 11/14/18 11/14/18 05:45 07:12 11:18 WBC RBC Hgb Hct MCV MCH MCHC RDW Std Deviation RDW Coeff of Molly Plt Count MPV Sodium 138 Potassium 3.5 Chloride 100 Carbon Dioxide 27 Anion Gap 10.0 BUN 35 H Creatinine 1.31 Est Cr Clr Drug Dosing 37.0 Est GFR ( Amer) 61.7 Est GFR (Non-Af Amer) 53.3 BUN/Creatinine Ratio 26.3 H Glucose 105 H POC Glucose 120 H 189 H Calcium 8.4 L 11/14/18 16:29 WBC RBC Hgb Hct MCV MCH MCHC RDW Std Deviation RDW Coeff of Molly Plt Count MPV Sodium Potassium Chloride Carbon Dioxide Anion Gap BUN Creatinine Est Cr Clr Drug Dosing Est GFR ( Amer) Est GFR (Non-Af Amer) BUN/Creatinine Ratio Glucose POC Glucose 181 H Calcium _ (1) DM II (diabetes mellitus, type II), controlled Chronic kidney disease stage: stage 3 (moderate) Diabetes mellitus complication detail: with chronic kidney disease Diabetes mellitus complication status: with kidney complications Diabetes mellitus extermination inspector insulin use: without extermination inspector use Diabetes mellitus macular edema: Diabetic retinopathy severity: Laterality: Proliferative retinopathy type: Qualified Code(s): E11.22 - Type 2 diabetes mellitus with diabetic chronic kidney disease; N18.3 - Chronic kidney disease, stage 3 (moderate) (2) Sepsis Sepsis type: sepsis due to unspecified organism Qualified Code(s): A41.9 - Sepsis, unspecified organism (3) PNA (pneumonia) Aspiration pneumonia type: Laterality: right Lung location: lower lobe of lung Pneumonia type: due to unspecified organism Qualified Code(s): J18.1 - Lobar pneumonia, unspecified organism
[2018-11-15] MEDS: HEPARIN 100 UNIT/ML 5ML FLUSH FLUSH SCH (02:45)
[2018-11-15] MEDS: PIPERACILLIN/TAZOBACTAM 3.375 GM in DEXTROSE 5% 100 ML IV SCH ×3 (05:16→20:43)
[2018-11-15 07:02] LABS: BUN Creatinine Ratio 26.3 (10-20); Calcium 8.8 mg/dl (8.5-10.1); Creatinine Clr Calc Pharmacy 38.3 ml/min; Est GFR (African American) 64.1; Est GFR (Non-African American) 55.3; Magnesium 2.1 mg/dl (1.8-2.4); Potassium 3.6 mmol/L (3.5-5.1)
[2018-11-15] MEDS: ATORVASTATIN 40 MG TAB PO SCH (07:41)
[2018-11-15] MEDS: CEROVITE ADV FORMULA TAB PO SCH (07:41)
[2018-11-15] MEDS: LACTOBACILLUS ACIDOPHILUS (FLORANEX) TAB PO SCH ×3 (07:41→17:45)
[2018-11-15] MEDS: PANTOprazole 40 MG TAB PO SCH (07:41)
[2018-11-15] MEDS: FINASTERIDE 5 MG TAB PO SCH (07:42)
[2018-11-15] MEDS: MAGNESIUM OXIDE 400 MG TAB PO SCH (07:42)
[2018-11-15] MEDS: CYANOCOBALAMIN 500 MCG TABLET (VITAMIN B-12) PO SCH (07:42)
[2018-11-15] MEDS: HEPARIN SOD 5,000 UNIT/0.5 ML VIAL SQ SCH ×2 (07:42→20:41)
[2018-11-15] MEDS: INSULIN ASPART 100 UNITS/ML 3 ML PEN SC SCH ×5 (07:44→21:08)
[2018-11-15] MEDS: ASPIRIN 81 MG ECTAB PO SCH (07:45)
[2018-11-15] MEDS: METOPROLOL SUCC 25MG EXT REL TAB PO SCH (07:47)
[2018-11-15] MEDS: FERROUS SULFATE 325 MG TAB PO SCH ×2 (10:15→20:40)
--- NOTE | 2018-11-15 15:55 | Progress Note ---
DATE: 11/15/2018 Mr. Aden is looking better every day. His BUN is 33. His creatinine is 1.27 and his oxygenation is greatly improved at 99% saturation on 2 liters. He also sounds better though he has markedly decreased breath sounds. Currently I would like to continue to keep an eye on him. I am tentatively going to plan on offering him an Eloesser flap in the near future. I would like to see how he does over the weekend.
--- NOTE | 2018-11-15 18:20 | Hospitalist Progress Note ---
Date of Service November 15, 2018 Assessment & Plan (1) PNA (pneumonia): RLL. Day #5 of zosyn. Covering for gram negatives and anaerobes. Concern is that the CHATA cavity is communicating with his airways setting him up for recurrent pneumonia. ID consult and thoracic consults appreciated. Plan [address] Srivastava is planning surgery for early next week. (2) Sepsis: 2nd to pneumonia - resolved. (3) Acute respiratory failure with hypoxia: Improving. Wean O2 off. Does not wear chronic O2 at home. Acute resp failure 2nd to decompensated CHF and RLL pneumonia. 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 Had been on voriconazole but this was stopped in the setting of shock liver during his prior hospital stay. ID recommends holding voriconazole for now. (5) Nonsustained ventricular tachycardia: need for AICD in light of depressed EF? defer to Dr. Chaudhry/cardiology. (6) Severe protein-calorie malnutrition: boost, etc (7) Acute on chronic systolic (congestive) heart failure: improved. cont BB cont lasix (8) Cavitary lesion of lung: CHATA. Dr. Srivastava from thoracic has seen - planning Eloesser flap to decrease the incidence of airway contamination from the CHATA cavity. This is tentatively scheduled for Monday of this coming week. (9) CKD stage 3 due to type 2 diabetes mellitus: creatinine stable, BMP in am (10) DM II (diabetes mellitus, type II), controlled: acceptable control at this time (11) DVT prophylaxis: cont heparin BID Subjective no new issues overnight tele with NSR or sinus tach PVCs, some runs of nonsustained V-tach cont with BEE anxious about surgery planned for next week Constitutional: no fever Respiratory: no cough Cardiovascular: no chest pain Physical Exam 2 Vital Signs (Past 24 Hours): Last Vital Signs Temp 36.7 C 11/15/18 15:20 Pulse 54 L 11/15/18 15:20 Resp 16 11/15/18 15:20 BP 102/68 11/15/18 15:20 Pulse Ox 99 11/15/18 15:20 Constitutional: + ill appearing and + thin; no acute distress ENMT: external ear and nose normal, oropharynx normal Respiratory: Auscultation: + diminished lung sounds (b/l bases) and + rales ( minimal - RLL) Cardiovascular: Rate/Rhythm: regular rate, regular rhythm and + tachycardic Heart Sounds: normal S1 and normal S2; no murmur Vessels: + JVD, posterior tibial pulses present and dorsalis pedis pulses present Extremities: no edema Gastrointestinal (Abdomen): normal bowel sounds, soft, nontender, no hepatosplenomegaly Psychiatric: A+Ox3, euthymic affect Results & Data Laboratory Results Laboratory Results - last 24 hr 11/14/18 11/15/18 11/15/18 20:49 06:18 07:11 Sodium 133 L Potassium 3.6 Chloride 99 Carbon Dioxide 26 Anion Gap 8.0 BUN 33 H Creatinine 1.27 Est Cr Clr Drug Dosing 38.3 Est GFR ( Amer) 64.1 Est GFR (Non-Af Amer) 55.3 BUN/Creatinine Ratio 26.3 H Glucose 134 H POC Glucose 127 H 139 H Calcium 8.8 Magnesium 2.1 11/15/18 11:07 Sodium Potassium Chloride Carbon Dioxide Anion Gap BUN Creatinine Est Cr Clr Drug Dosing Est GFR ( Amer) Est GFR (Non-Af Amer) BUN/Creatinine Ratio Glucose POC Glucose 272 H Calcium Magnesium _ (1) DM II (diabetes mellitus, type II), controlled Chronic kidney disease stage: stage 3 (moderate) Diabetes mellitus complication detail: with chronic kidney disease Diabetes mellitus complication status: with kidney complications Diabetes mellitus half-way insulin use: without blanker press operator use Diabetes mellitus macular edema: Diabetic retinopathy severity: Laterality: Proliferative retinopathy type: Qualified Code(s): E11.22 - Type 2 diabetes mellitus with diabetic chronic kidney disease; N18.3 - Chronic kidney disease, stage 3 (moderate) (2) Sepsis Sepsis type: sepsis due to unspecified organism Qualified Code(s): A41.9 - Sepsis, unspecified organism (3) PNA (pneumonia) Aspiration pneumonia type: Laterality: right Lung location: lower lobe of lung Pneumonia type: due to unspecified organism Qualified Code(s): J18.1 - Lobar pneumonia, unspecified organism
--- NOTE | 2018-11-15 20:48 | Infectious Disease Progress Nt ---
Date of Service November 15, 2018 Assessment & Plan (1) Pneumonia: Patient with possible worsening pneumonia with previous history of Aspergillus treated with voriconazole. I would think worsening Aspergillus infection would be unlikely given that patient had improved previously with therapy and had continued it after short discontinuation during previous hospital admission. Would continue patient on Zosyn for now,, would hold voriconazole for now especially if surgery planned where more definitive cultures can be obtained. Will discuss with all involved. Will follow. (2) Cavitary lesion of lung: (3) Aspergillus fumigatus: Subjective Patient seen in follow-up for worsening pulmonary infection. Offers no new specific complaints. No increase in shortness of breath. Plans for surgery next week noted. Review of Systems All systems reviewed & are unremarkable except as noted in HPI & below Physical Exam 2 Vital Signs (Past 24 Hours): Last Vital Signs Temp 36.4 C L 11/15/18 19:35 Pulse 100 H 11/15/18 19:35 Resp 16 11/15/18 19:35 BP 103/69 11/15/18 19:35 Pulse Ox 97 11/15/18 19:35 Constitutional: WD/WN, vitals as above comfortable; no acute distress Eyes: PERRL, conjunctivae normal, anicteric sclerae ENMT: external ear and nose normal, oropharynx normal Neck: trachea midline, no thyromegaly neck nontender Respiratory: no respiratory distress and no dullness to percussion Auscultation: + rales (Both bases) Cardiovascular: Rate/Rhythm: regular rate and regular rhythm Heart Sounds: normal S1 and normal S2; no gallop, no murmur and no cardiac rub Vessels: normal peripheral pulses; no JVD Gastrointestinal (Abdomen): normal bowel sounds, soft, nontender, no hepatosplenomegaly Musculoskeletal: no cyanosis or clubbing, extremities motor strength 5/5 Spine: thoracic spine normal to inspection and lumbar spine normal to inspection ; no cervical spinal tenderness Skin: no rashes, warm and dry normal turgor; no lesions Neurologic: patellar DTR's 2+ bilat, sensation intact no focal motor deficits Psychiatric: A+Ox3, euthymic affect Orientation: cooperative Lymphatic: no cervical or axillary lymphadenopathy no inguinal lymphadenopathy Results & Data Laboratory Results [facility] 11/15/18 06:18 Sodium 133 L Potassium 3.6 Chloride 99 Carbon Dioxide 26 BUN 33 H Creatinine 1.27 Glucose 134 H Calcium 8.8 Diagnostic Findings Microbiology 11/11/18 16:38 Blood Blood Culture - Preliminary No growth to date. 11/11/18 16:38 Blood Blood Culture - Preliminary No growth to date. cc: ~ XR chest 1V portable CLINICAL HISTORY: 72 years-old Male presenting with pneumonia . TECHNIQUE: Portable upright AP view of the chest was obtained. COMPARISON: 11/11/2018, 10/20/2018, and chest CT from 10/26/2018. FINDINGS: Left subclavian Mediport terminates at the superior cavoatrial junction. Atherosclerosis of the aortic arch. Cardiac silhouette mildly enlarged. Persistent peripheral dense opacity in the left upper lung with central lucency correlating with the known cavitary lesion. Slight increase in right mid to basilar dense opacity with overlying pleural effusion. Volume of pleural fluid appears to be increasing. Underlying significant heterogeneity of lung markings with relative radiolucency of the right upper lung. Small left pleural effusion unchanged. Degenerative changes of the thoracic spine. IMPRESSION: 1. Increasing size of the right pleural effusion. This may represent a parapneumonic effusion. Empyema not excluded. 2. Stable to slightly worsened right mid to basilar infiltrate consistent with pneumonia. 3. Severe emphysema. 4. Unchanged appearance of the left upper lobe cavitary lesion. Electronically signed by: Jeffrey Frances M.D. 11/14/2018 7:33 AM Dictated: 11/14/18 0729 Transcribed: 11/14/18 0729
[2018-11-16] MEDS: HEPARIN 100 UNIT/ML 5ML FLUSH FLUSH SCH (00:40)
[2018-11-16] MEDS: PIPERACILLIN/TAZOBACTAM 3.375 GM in DEXTROSE 5% 100 ML IV SCH ×3 (05:42→20:58)
[2018-11-16 06:31] LABS: BUN Creatinine Ratio 23.3 (10-20); Calcium 8.7 mg/dl (8.5-10.1); Creatinine Clr Calc Pharmacy 37.5 ml/min; Est GFR (African American) 61.2; Est GFR (Non-African American) 52.8
[2018-11-16 06:52] LABS: INR 1.2 (0.9-1.1); Prothrombin Time 12.4 Seconds (9.0-12.0)
[2018-11-16] MEDS: LACTOBACILLUS ACIDOPHILUS (FLORANEX) TAB PO SCH ×3 (08:16→18:18)
[2018-11-16] MEDS: ATORVASTATIN 40 MG TAB PO SCH (08:16)
[2018-11-16] MEDS: CEROVITE ADV FORMULA TAB PO SCH (08:16)
[2018-11-16] MEDS: METOPROLOL SUCC 25MG EXT REL TAB PO SCH (08:16)
[2018-11-16] MEDS: ASPIRIN 81 MG ECTAB PO SCH (08:17)
[2018-11-16] MEDS: MAGNESIUM OXIDE 400 MG TAB PO SCH (08:17)
[2018-11-16] MEDS: PANTOprazole 40 MG TAB PO SCH (08:17)
[2018-11-16] MEDS: HEPARIN SOD 5,000 UNIT/0.5 ML VIAL SQ SCH ×2 (08:17→20:56)
[2018-11-16] MEDS: FERROUS SULFATE 325 MG TAB PO SCH ×2 (08:17→20:55)
[2018-11-16] MEDS: CYANOCOBALAMIN 500 MCG TABLET (VITAMIN B-12) PO SCH (08:17)
[2018-11-16] MEDS: FINASTERIDE 5 MG TAB PO SCH (08:17)
[2018-11-16] MEDS: INSULIN ASPART 100 UNITS/ML 3 ML PEN SC SCH ×4 (08:24→20:56)
--- NOTE | 2018-11-16 10:57 | Progress Note ---
DATE: 11/16/2018 Mr. Aden was seen today on 11/16/2018. In reviewing his films and seeing that he is improved, I am going to offer him an Eloesser flap anteriorly next week. We are going to remove 1 or 2 ribs and create a flap so we can clean up this left upper lobe apical collection of fluid, which I believe is contaminating his airways. We have discussed this multiple times. I will get him set up to have this done next week. I will discuss this with his family in more detail.
--- NOTE | 2018-11-16 11:01 | Cardiology Progress Note ---
Date of Service November 16, 2018 Assessment & Plan (1) Acute respiratory failure with hypoxia: Clinically he is improved. He has not diuresed much over the past 2 days. It is unclear whether he has been getting doses of Lasix. I ordered him 20 milligrams of Lasix orally every morning. He was being maintained on this dose as an outpatient. We will watch his volume status and renal function. (2) Ischemic cardiomyopathy: Patient is known to have severely reduced LV systolic function. In the past he has been on more aggressive medical regimen but this was reduced recently due to his relative hypotension. Currently continues exclusively on beta-blockade. Blood pressures are stable. While he technically qualifies for an ICD as primary prevention against sudden cardiac , I think his other comorbidities preclude implant at this point. The only benefit obtained from an ICD in this setting require a longevity greater than 1 year. Given his frequent rehospitalizations and current comorbidities I would defer implantation at this time. (3) CAD (coronary artery disease): No current symptoms of angina or coronary insufficiency. At the time of his last admission he did undergo coronary angiography which revealed chronic disease but no acute coronary syndrome. He will continue on a daily aspirin and beta-blockade. No recent symptoms of chest discomfort. Subjective This morning patient claims to be feeling well. He states that overall his breathing has improved very slightly since admission. He feels slightly stronger every day but was disappointed that he did not have the opportunity to ambulate more yesterday. He denies any dizziness or lightheadedness. Physical Exam 2 Vital Signs (Past 24 Hours): Last Vital Signs Temp 36.3 C L 11/16/18 08:00 Pulse 115 H 11/16/18 08:00 Resp 22 11/16/18 08:00 BP 125/76 11/16/18 08:00 Pulse Ox 91 11/16/18 08:00 Physical Exam: The patient is alert and oriented. Mood and affect appeared normal. He answered all questions appropriately. HEENT: Pupils are equal and reactive to light and accommodation. Extraocular movements are intact. The sclerae are anicteric. Neuro: Cranial nerves intact Neck: Patient's neck is supple. He has approximately 3 centimeters of jugular venous distention. Lungs: Crackles throughout both lung watts. No expiratory wheezing. Cardiac: Heart demonstrates a regular rate and rhythm. Pulses: The patient has palpable radial pulses bilaterally that are equal in intensity Extremities: There was no evidence of hypoperfusion. There is no cyanosis or clubbing. There is no edema. Skin: I did not appreciate any rashes on examination today. Results & Data Laboratory Results Abnormal Lab Results 11/15/18 11/15/18 11/15/18 11:07 16:35 20:18 PT INR Sodium Potassium Chloride Carbon Dioxide Anion Gap BUN Creatinine Est Cr Clr Drug Dosing Est GFR ( Amer) Est GFR (Non-Af Amer) BUN/Creatinine Ratio Glucose POC Glucose 272 H 176 H 148 H Calcium 11/16/18 11/16/18 11/16/18 05:38 05:38 07:13 PT 12.4 H INR 1.2 H Sodium 132 L Potassium 4.0 Chloride 99 Carbon Dioxide 29 Anion Gap 4.0 BUN 31 H Creatinine 1.32 Est Cr Clr Drug Dosing 37.5 Est GFR ( Amer) 61.2 Est GFR (Non-Af Amer) 52.8 BUN/Creatinine Ratio 23.3 H Glucose 147 H POC Glucose 158 H Calcium 8.7 ECG Additional Comments: Sinus tachycardia on telemetry _ (1) CAD (coronary artery disease) Coronary Disease-Associated Artery/Lesion type: [place] artery [place] vs. transplanted heart: [place] heart Associated angina: without angina Qualified Code(s): I25.10 - Atherosclerotic heart disease of [place] coronary artery without angina pectoris
[2018-11-16] MEDS: FUROSEMIDE 20 MG TAB PO SCH (11:45)
--- NOTE | 2018-11-16 15:07 | Infectious Disease Progress Nt ---
Date of Service November 16, 2018 Assessment & Plan (1) Pneumonia: Patient with possible worsening pneumonia with previous history of Aspergillus treated with voriconazole. I would think worsening Aspergillus infection would be unlikely given that patient had improved previously with therapy and had continued it after short discontinuation during previous hospital admission. Would continue patient on Zosyn for now,, would hold voriconazole for now until surgery next week where more definitive cultures can be obtained. . Will follow. (2) Cavitary lesion of lung: (3) Aspergillus fumigatus: Subjective Patient seen in follow-up for worsening pulmonary infection. Offers no new specific complaints. Breathing is slightly improved. No fever. Plans for surgery next week noted. Review of Systems All systems reviewed & are unremarkable except as noted in HPI & below Physical Exam 2 Vital Signs (Past 24 Hours): Last Vital Signs Temp 36.4 C L 11/16/18 13:15 Pulse 102 H 11/16/18 13:15 Resp 16 11/16/18 13:15 BP 103/74 11/16/18 13:15 Pulse Ox 91 11/16/18 13:15 Constitutional: WD/WN, vitals as above comfortable; no acute distress Eyes: PERRL, conjunctivae normal, anicteric sclerae ENMT: external ear and nose normal, oropharynx normal Neck: trachea midline, no thyromegaly neck nontender Respiratory: no respiratory distress and no dullness to percussion Auscultation: + rales (Both bases) Cardiovascular: Rate/Rhythm: regular rate and regular rhythm Heart Sounds: normal S1 and normal S2; no gallop, no murmur and no cardiac rub Vessels: normal peripheral pulses; no JVD Gastrointestinal (Abdomen): normal bowel sounds, soft, nontender, no hepatosplenomegaly Musculoskeletal: no cyanosis or clubbing, extremities motor strength 5/5 Spine: thoracic spine normal to inspection and lumbar spine normal to inspection ; no cervical spinal tenderness Skin: no rashes, warm and dry normal turgor; no lesions Neurologic: patellar DTR's 2+ bilat, sensation intact no focal motor deficits Psychiatric: A+Ox3, euthymic affect Orientation: cooperative Lymphatic: no cervical or axillary lymphadenopathy no inguinal lymphadenopathy Results & Data Laboratory Results [facility] 11/16/18 05:38 Sodium 132 L Potassium 4.0 Chloride 99 Carbon Dioxide 29 BUN 31 H Creatinine 1.32 Glucose 147 H Calcium 8.7 Diagnostic Findings Microbiology 11/11/18 16:38 Blood Blood Culture - Preliminary No growth to date. 11/11/18 16:38 Blood Blood Culture - Preliminary No growth to date.
--- NOTE | 2018-11-16 20:41 | Hospitalist Progress Note ---
Date of Service November 16, 2018 Assessment & Plan (1) PNA (pneumonia): RLL. Day #6 of zosyn. Plan 7 days of Rx then stop. Covering for gram negatives and anaerobes. Concern is that the CHATA cavity is communicating with his airways setting him up for recurrent pneumonia. ID consult and thoracic consults appreciated. (2) Sepsis: 2nd to pneumonia - resolved. (3) Acute respiratory failure with hypoxia: Improved. On minimal amount of O2 at this time. 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 Had been on voriconazole but this was stopped in the setting of shock liver during his prior hospital stay. ID recommends holding voriconazole for now. (5) Nonsustained ventricular tachycardia: need for AICD in light of depressed EF? defer to Dr. Chaudhry/cardiology. (6) Severe protein-calorie malnutrition: boost, etc ongoing - due to recurrent pneumonia, etc (7) Acute on chronic systolic (congestive) heart failure: appears compensated today. cont BB cont lasix (8) Cavitary lesion of lung: CHATA. Dr. Srivastava from thoracic has seen - planning Eloesser flap to decrease the incidence of airway contamination from the CHATA cavity. This is scheduled for 11/19/18. (9) CKD stage 3 due to type 2 diabetes mellitus: creatinine stable, BMP in am (10) DM II (diabetes mellitus, type II), controlled: doing well/controlled (11) DVT prophylaxis: cont heparin BID updated at bedside high risk of arrhythmia- keep on tele Subjective nothing new in the way of complaints today except for anxiety. he is anxious about his surgery on Monday. with the anxiety he feels short of breath. declines any anxiety medication. tele stable overnight. breathing the same or slightly better today. Constitutional: no fever Respiratory: + dyspnea on exertion; no hemoptysis Cardiovascular: + dyspnea on exertion; no orthopnea and no paroxysmal nocturnal dyspnea Physical Exam 2 Vital Signs (Past 24 Hours): Last Vital Signs Temp 36.6 C 11/16/18 19:11 Pulse 100 H 11/16/18 19:11 Resp 19 11/16/18 19:11 BP 96/60 L 11/16/18 19:11 Pulse Ox 97 11/16/18 19:11 Constitutional: + ill appearing and + thin; no acute distress ENMT: external ear and nose normal, oropharynx normal Respiratory: Auscultation: + diminished lung sounds (b/l bases); no rales, no rhonchi and no wheezes Cardiovascular: Rate/Rhythm: regular rhythm and + tachycardic Heart Sounds : normal S1 and normal S2; no murmur Vessels: + JVD, posterior tibial pulses present and dorsalis pedis pulses present Extremities: no edema Gastrointestinal (Abdomen): normal bowel sounds, soft, nontender, no hepatosplenomegaly Psychiatric: Orientation: alert and oriented x 3 Affect: + anxious affect Results & Data Laboratory Results Laboratory Results - last 24 hr 11/15/18 11/16/18 11/16/18 20:18 05:38 05:38 PT 12.4 H INR 1.2 H Sodium 132 L Potassium 4.0 Chloride 99 Carbon Dioxide 29 Anion Gap 4.0 BUN 31 H Creatinine 1.32 Est Cr Clr Drug Dosing 37.5 Est GFR ( Amer) 61.2 Est GFR (Non-Af Amer) 52.8 BUN/Creatinine Ratio 23.3 H Glucose 147 H POC Glucose 148 H Calcium 8.7 11/16/18 11/16/18 11/16/18 07:13 11:16 16:37 PT INR Sodium Potassium Chloride Carbon Dioxide Anion Gap BUN Creatinine Est Cr Clr Drug Dosing Est GFR ( Amer) Est GFR (Non-Af Amer) BUN/Creatinine Ratio Glucose POC Glucose 158 H 233 H 237 H Calcium 11/16/18 20:07 PT INR Sodium Potassium Chloride Carbon Dioxide Anion Gap BUN Creatinine Est Cr Clr Drug Dosing Est GFR ( Amer) Est GFR (Non-Af Amer) BUN/Creatinine Ratio Glucose POC Glucose 101 H Calcium _ (1) DM II (diabetes mellitus, type II), controlled Chronic kidney disease stage: stage 3 (moderate) Diabetes mellitus complication detail: with chronic kidney disease Diabetes mellitus complication status: with kidney complications Diabetes mellitus remote computer terminal operator insulin use: without remote computer terminal operator use Diabetes mellitus macular edema: Diabetic retinopathy severity: Laterality: Proliferative retinopathy type: Qualified Code(s): E11.22 - Type 2 diabetes mellitus with diabetic chronic kidney disease; N18.3 - Chronic kidney disease, stage 3 (moderate) (2) Sepsis Sepsis type: sepsis due to unspecified organism Qualified Code(s): A41.9 - Sepsis, unspecified organism (3) PNA (pneumonia) Aspiration pneumonia type: Laterality: right Lung location: lower lobe of lung Pneumonia type: due to unspecified organism Qualified Code(s): J18.1 - Lobar pneumonia, unspecified organism
[2018-11-17] MEDS: HEPARIN 100 UNIT/ML 5ML FLUSH FLUSH SCH (01:08)
[2018-11-17] MEDS: PIPERACILLIN/TAZOBACTAM 3.375 GM in DEXTROSE 5% 100 ML IV SCH ×3 (05:37→21:59)
[2018-11-17 06:04] LABS: Hematocrit (blood only) 29.1 % (42-52); Hemoglobin 9.1 g/dL (14.0-18.0); Mean Corpuscular Hgb Conc 31.3 g/dL (32-36); Mean Corpuscular Volume 89.8 fL (80-100); Mean Platelet Volume 10.2 fL (7.4-10.4); Platelet Count 357 K/uL (130-400); RDW Coefficient of Variation 20.8 % (11.5-14.5); RDW Standard Deviation 67.8 fL (36.4-46.3); Red Blood Count 3.24 M/uL (4.7-6.1); White Blood Count 7.58 K/uL (4.8-10.8)
[2018-11-17 06:34] LABS: BUN Creatinine Ratio 21.4 (10-20); Calcium 8.4 mg/dl (8.5-10.1); Creatinine Clr Calc Pharmacy 37.6 ml/min; Est GFR (African American) 60.6; Est GFR (Non-African American) 52.3; Potassium 3.8 mmol/L (3.5-5.1)
[2018-11-17] MEDS: MAGNESIUM OXIDE 400 MG TAB PO SCH (08:29)
[2018-11-17] MEDS: CYANOCOBALAMIN 500 MCG TABLET (VITAMIN B-12) PO SCH (08:30)
[2018-11-17] MEDS: FINASTERIDE 5 MG TAB PO SCH (08:30)
[2018-11-17] MEDS: FUROSEMIDE 20 MG TAB PO SCH (08:31)
[2018-11-17] MEDS: ATORVASTATIN 40 MG TAB PO SCH (08:31)
[2018-11-17] MEDS: LACTOBACILLUS ACIDOPHILUS (FLORANEX) TAB PO SCH ×3 (08:31→17:16)
[2018-11-17] MEDS: ASPIRIN 81 MG ECTAB PO SCH (08:32)
[2018-11-17] MEDS: CEROVITE ADV FORMULA TAB PO SCH (08:32)
[2018-11-17] MEDS: FERROUS SULFATE 325 MG TAB PO SCH ×2 (08:32→20:29)
[2018-11-17] MEDS: PANTOprazole 40 MG TAB PO SCH (08:32)
[2018-11-17] MEDS: HEPARIN SOD 5,000 UNIT/0.5 ML VIAL SQ SCH ×2 (08:34→20:29)
[2018-11-17] MEDS: INSULIN ASPART 100 UNITS/ML 3 ML PEN SC SCH ×3 (08:36→17:14)
[2018-11-17] MEDS: METOPROLOL SUCC 25MG EXT REL TAB PO SCH (08:40)
--- NOTE | 2018-11-17 09:08 | Surgery Progress Note ---
Date of Service November 17, 2018 Assessment & Plan (1) PNA (pneumonia): -the pt. has improved since admission -ID input noted: -it is felt that he is suffering from bacterial pneumonia as he has improved with zosyn which will continue -pt. has left upper lobe cavitary lesion felt to be due to Aspergilus -concern is that pt. may be contaminating other airways with this chronic condition, therefore Dr. Srivastava has offered him an Eloessar Flap, tent to be done 11/19/18 Subjective Pt.visited at bedside and he notes he is feeling "pretty good." He says he feels improved since admission. Currently he is not SOB and denies CP. No fevers, shakes, chills. Physical Exam 2 Vital Signs (Past 24 Hours): Last Vital Signs Temp 36.4 C L 11/17/18 08:29 Pulse 90 11/17/18 08:29 Resp 18 11/17/18 08:29 BP 90/54 L 11/17/18 08:29 Pulse Ox 96 11/17/18 08:29 Physical Exam: Pt. appears frail. Constitutional: no acute distress Respiratory: normal respiratory effort; no respiratory distress and no labored breathing BS are decreased at bases. No wheezing noted Cardiovascular: Rate/Rhythm: regular rate and regular rhythm _ (1) PNA (pneumonia) Aspiration pneumonia type: Laterality: right Lung location: lower lobe of lung Pneumonia type: due to unspecified organism Qualified Code(s): J18.1 - Lobar pneumonia, unspecified organism
--- NOTE | 2018-11-17 18:46 | XRay Report ---
XR chest 2V routine CLINICAL HISTORY: 72 years-old Male presenting with dyspnea, CHF, CHATA cavity, pneumonia RLL. TECHNIQUE: PA and lateral views of the chest were obtained. COMPARISON: 11/14/[address] from 10/26/2018. FINDINGS: Left subclavian Mediport terminates at the superior cavoatrial junction. Atherosclerosis of aortic ar ch. Mediastinal shift to the left. Cardiac silhouette mildly enlarged. Dense peripheral consolidation in the possibly associated loculated fluid at the left apex is similar to prior. This surrounds the cavity best visualized on prior CT. Small right pleural effusion similar to prior. Dense right basila r infiltrates, which persist and have not significantly decreased over multiple prior exams. Architec tural distortion of the left lung base again evident likely with trace left pleural fluid. No pneumot horax. Radiolucency of the right upper lung correlates with severe emphysematous changes on prior CT. Numerous external leads overlie the thorax. IMPRESSION: 1. No significant change in multifocal dense opacities and loculated pleural fluid on a background o f severe emphysema. Electronically signed by: Jeffrey Frances M.D. 11/17/2018 6:45 PM
[2018-11-17] MEDS ORDERED: INSULIN ASPART 100 UNITS/ML 3 ML PEN SC SCH (21:00)
--- NOTE | 2018-11-17 21:52 | Hospitalist Progress Note ---
Date of Service November 17, 2018 Assessment & Plan (1) PNA (pneumonia): RLL. Day #7 of zosyn. Zosyn timed to stop on 11/18/18. Covering for gram negatives and anaerobes. Concern is that the CHATA cavity is communicating with his airways setting him up for recurrent pneumonia. ID consult and thoracic consults appreciated. Repeat cxr today with dense RLL consolidation but no worse than previous and no pulmonary edema on that cxr. (2) Sepsis: 2nd to pneumonia - resolved. (3) Acute respiratory failure with hypoxia: Still w/ o2 requirement. He has periods of tachypnea, suspect due to anxiety. He has declined the use of low dose benzos. Chest x-ray stable today. 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 He had been on voriconazole for this. This was stopped in the setting of shock liver during his prior hospital stay. Although LFTs have normalized ID recommends holding voriconazole for now. (5) Nonsustained ventricular tachycardia: need for AICD in light of depressed EF? defer to Dr. Chaudhry/cardiology. (6) Severe protein-calorie malnutrition: boost, etc ongoing - due to recurrent pneumonia, etc (7) Acute on chronic systolic (congestive) heart failure: appears compensated despite his complaint of dyspnea. Weight is up only 1 kg from his weight during previous hospital stay. He lays flat in bed without difficulty. cont BB cont lasix as is in light of tachycardia - try increasing beta veronica to 25mg daily? defer to cardiology (8) Cavitary lesion of lung: CHATA. Dr. Srivastava planning Eloesser flap to decrease the incidence of airway contamination from the CHATA cavity. This is scheduled for 11/19/18. (9) CKD stage 3 due to type 2 diabetes mellitus: creatinine stable, BMP in am (10) DM II (diabetes mellitus, type II), controlled: had been controlled, but then BSGs trended up resume lantus adjust novolog (11) Anxiety: declines Rx again today (12) DVT prophylaxis: cont heparin BID updated at bedside high risk of arrhythmia- keep on tele Subjective patient with anxiety which then leads to attacks of dyspnea the dyspnea is worse with activity he also has bladder spasm/urgency which also leads to dyspnea tele with NSR or sinus tach along with PVCs and PVC runs denies chest pain when asked if he feels worse than earlier in the admission he says "no" appetite ok Constitutional: no fever Respiratory: + dyspnea and + dyspnea on exertion Cardiovascular: no chest pain, no orthopnea and no paroxysmal nocturnal dyspnea Gastrointestinal: no abdominal pain, no nausea and no vomiting Genitourinary (Male): no dysuria Psychiatric: + anxiety; no abnormal sleep pattern Physical Exam 2 Vital Signs (Past 24 Hours): Last Vital Signs Temp 36.3 C L 11/17/18 19:17 Pulse 100 H 11/17/18 19:17 Resp 24 11/17/18 19:17 BP 91/51 L 11/17/18 19:17 Pulse Ox 97 11/17/18 19:17 Constitutional: + acute distress (panic attack leading to rapid, pursed-lip breathing during my visit; this was brief in duration), + ill appearing and + thin ENMT: external ear and nose normal, oropharynx normal Respiratory: normal respiratory effort, lungs clear to auscultation Auscultation: + diminished lung sounds (b/l bases but worse on right ); no rales , no rhonchi and no wheezes Cardiovascular: Rate/Rhythm: regular rate and + tachycardic; + abnormal rhythm (irregular) Heart Sounds: normal S1 and normal S2; no murmur Vessels: + JVD, posterior tibial pulses present and dorsalis pedis pulses present Extremities: no edema Gastrointestinal (Abdomen): normal bowel sounds, soft, nontender, no hepatosplenomegaly Psychiatric: Orientation: alert and oriented x 3 Affect: + anxious affect Results & Data Laboratory Results Laboratory Results - last 24 hr 11/17/18 11/17/18 11/17/18 05:34 05:34 11:22 WBC 7.58 RBC 3.24 L Hgb 9.1 L Hct 29.1 L MCV 89.8 MCH 28.1 MCHC 31.3 L RDW Std Deviation 67.8 H RDW Coeff of Molly 20.8 H Plt Count 357 MPV 10.2 Sodium 137 Potassium 3.8 Chloride 100 Carbon Dioxide 30 Anion Gap 7.0 BUN 28 H Creatinine 1.33 Est Cr Clr Drug Dosing 37.6 Est GFR ( Amer) 60.6 Est GFR (Non-Af Amer) 52.3 BUN/Creatinine Ratio 21.4 H Glucose 111 H POC Glucose 269 H Calcium 8.4 L 11/17/18 11/17/18 16:05 20:05 WBC RBC Hgb Hct MCV MCH MCHC RDW Std Deviation RDW Coeff of Molly Plt Count MPV Sodium Potassium Chloride Carbon Dioxide Anion Gap BUN Creatinine Est Cr Clr Drug Dosing Est GFR ( Amer) Est GFR (Non-Af Amer) BUN/Creatinine Ratio Glucose POC Glucose 287 H 155 H Calcium _ (1) DM II (diabetes mellitus, type II), controlled Chronic kidney disease stage: stage 3 (moderate) Diabetes mellitus complication detail: with chronic kidney disease Diabetes mellitus complication status: with kidney complications Diabetes mellitus halfway insulin use: without workshop manager use Diabetes mellitus macular edema: Diabetic retinopathy severity: Laterality: Proliferative retinopathy type: Qualified Code(s): E11.22 - Type 2 diabetes mellitus with diabetic chronic kidney disease; N18.3 - Chronic kidney disease, stage 3 (moderate) (2) Sepsis Sepsis type: sepsis due to unspecified organism Qualified Code(s): A41.9 - Sepsis, unspecified organism (3) PNA (pneumonia) Aspiration pneumonia type: Laterality: right Lung location: lower lobe of lung Pneumonia type: due to unspecified organism Qualified Code(s): J18.1 - Lobar pneumonia, unspecified organism
[2018-11-17] MEDS: INSULIN GLARGINE SOLOSTAR 100 UNITS/ML 3 ML PEN SC SCH (22:00)
[2018-11-18] MEDS: HEPARIN 100 UNIT/ML 5ML FLUSH FLUSH SCH (01:53)
[2018-11-18] MEDS: PIPERACILLIN/TAZOBACTAM 3.375 GM in DEXTROSE 5% 100 ML IV SCH ×2 (05:58→13:39)
[2018-11-18 06:50] LABS: Hematocrit (blood only) 29.6 % (42-52); Hemoglobin 9.2 g/dL (14.0-18.0); Mean Corpuscular Hgb Conc 31.1 g/dL (32-36); Mean Corpuscular Volume 89.7 fL (80-100); Mean Platelet Volume 10.3 fL (7.4-10.4); Nucleated RBC # (auto) 0.03 K/uL (0-0); Nucleated RBC % (auto) 0.3 %; Platelet Count 373 K/uL (130-400); RDW Coefficient of Variation 20.9 % (11.5-14.5); RDW Standard Deviation 67.3 fL (36.4-46.3); White Blood Count 8.88 K/uL (4.8-10.8)
[2018-11-18 07:19] LABS: BUN Creatinine Ratio 23.9 (10-20); Calcium 8.8 mg/dl (8.5-10.1); Creatinine Clr Calc Pharmacy 38.9 ml/min; Est GFR (African American) 64.2; Est GFR (Non-African American) 55.4; Potassium 3.6 mmol/L (3.5-5.1)
[2018-11-18] MEDS: CEROVITE ADV FORMULA TAB PO SCH (07:41)
[2018-11-18] MEDS: CYANOCOBALAMIN 500 MCG TABLET (VITAMIN B-12) PO SCH (07:41)
[2018-11-18] MEDS: FERROUS SULFATE 325 MG TAB PO SCH ×2 (07:41→22:01)
[2018-11-18] MEDS: ATORVASTATIN 40 MG TAB PO SCH (07:41)
[2018-11-18] MEDS: PANTOprazole 40 MG TAB PO SCH (07:41)
[2018-11-18] MEDS: FUROSEMIDE 20 MG TAB PO SCH (07:42)
[2018-11-18] MEDS: MAGNESIUM OXIDE 400 MG TAB PO SCH (07:42)
[2018-11-18] MEDS: FINASTERIDE 5 MG TAB PO SCH (07:42)
[2018-11-18] MEDS: ASPIRIN 81 MG ECTAB PO SCH (07:42)
[2018-11-18] MEDS: LACTOBACILLUS ACIDOPHILUS (FLORANEX) TAB PO SCH ×3 (07:42→17:12)
[2018-11-18] MEDS: METOPROLOL SUCC 25MG EXT REL TAB PO SCH (07:43)
[2018-11-18] MEDS: HEPARIN SOD 5,000 UNIT/0.5 ML VIAL SQ SCH (07:46)
--- NOTE | 2018-11-18 10:41 | Progress Note ---
DATE: 11/18/2018 I had a long talk with Mr. Aden today. I pointed out exactly where we are going to be making our incisions and what ribs we will be taking. He understands. He has been seen by Dr. Dalton Rodriguez and I agree with his assessment of holding the voriconazole for now. We discussed everything we will be doing in the operating room. We are going to have to remove Mr. Aden's port. However, as I stated before, I do not believe this patient has evidence of malignant disease currently. I believe that he is contaminating his left lower lobe and his right lung from the cavity in the left and I believe that by opening this up and treating it locally with packings, we will mitigate that risk and my hope is that he will improve. Again, we talked about risk and benefits. We will get him set up for the morning. I have again explained to Mr. Aden and his family that this procedure in and of itself is not a major procedure. These can be done under local in some circumstances, although not in Mr. Aden given its location. It is fairly quick and blood loss is usually negligible. The big decision is about whether to do it. We will get him set up for the morning. ODMENICA
--- NOTE | 2018-11-18 12:16 | Hospitalist Progress Note ---
Date of Service November 18, 2018 Assessment & Plan (1) PNA (pneumonia): RLL. Day #8 of zosyn. Zosyn timed to stop on 11/18/18. Covering for gram negatives and anaerobes. Concern is that the CHATA cavity is communicating with his airways setting him up for recurrent pneumonia. ID consult and thoracic consults appreciated. Repeat cxr with dense RLL consolidation but no worse than previous and no pulmonary edema on that cxr. (2) Sepsis: 2nd to pneumonia - resolved. (3) Acute respiratory failure with hypoxia: Still w/ o2 requirement. He has periods of tachypnea, suspect due to anxiety. He has declined the use of low dose benzos. 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 He had been on voriconazole for this. This was stopped in the setting of shock liver during his prior hospital stay. Although LFTs have normalized ID recommends holding voriconazole for now and await intraoperative cultures (5) Nonsustained ventricular tachycardia: need for AICD in light of depressed EF was addressed by Cardiology and feel he would not get benefit as his life expectancy is not long enough (6) Severe protein-calorie malnutrition: boost, etc ongoing - due to recurrent pneumonia, etc (7) Acute on chronic systolic (congestive) heart failure: appears compensated despite his complaint of dyspnea. Weight is up 3 kg from his weight during previous hospital stay, but down 2-3kg since admission this time He lays flat in bed without difficulty. cont BB cont lasix 20mg daily in light of tachycardia - try increasing beta veronica to 25mg daily? defer to cardiology (8) Cavitary lesion of lung: CHATA. Dr. Srivastava planning Eloesser flap to decrease the incidence of airway contamination from the CHATA cavity. This is scheduled for 11/19/18. (9) CKD stage 3 due to type 2 diabetes mellitus: creatinine stable, BMP in am (10) DM II (diabetes mellitus, type II), controlled: had been controlled, but then BSGs trended up, now acceptable -continue lantus -continue novolog (11) Anxiety: declines Rx for lorazepam again today (12) Anemia: stable at hgb 9, secondary to Fe-def and chronic disease -continue FeSO4 tabs (13) DVT prophylaxis: cont heparin BID but hold for procedure tomorrow NPO after midnight Dispo- high risk of arrhythmia- keep on tele FULL CODE Subjective Pt anxious about upcoming procedure tomorrow. Still SOB with urge to urinate or any movement, or with eating. Does not want anything for anxiety or sleep. Denies ches tpain. Tele with 2-3 beats VT, bigem, NSR-ST 100-110 Review of Systems All systems reviewed & are unremarkable except as noted in HPI & below Physical Exam 2 Vital Signs (Past 24 Hours): Last Vital Signs Temp 36.7 C 11/18/18 11:58 Pulse 76 11/18/18 11:58 Resp 18 11/18/18 11:58 BP 121/62 11/18/18 11:58 Pulse Ox 96 11/18/18 11:58 Constitutional: WD/WN, vitals as above (Appears chronically ill) no acute distress Eyes: PERRL, conjunctivae normal, anicteric sclerae ENMT: external ear and nose normal, oropharynx normal Neck: trachea midline, no thyromegaly Respiratory: normal respiratory effort Auscultation: + crackles (At the right lower lung field) and + bronchovesicular breath sounds (At the left upper lung field) Cardiovascular: RRR, no murmur, no edema Gastrointestinal (Abdomen): normal bowel sounds, soft, nontender, no hepatosplenomegaly Musculoskeletal: Extremities: extremities normal to inspection; no cyanosis and no clubbing Skin: no rashes, warm and dry Neurologic: moves all extremities and awake; no focal motor deficits Psychiatric: A+Ox3, euthymic affect Results & Data Laboratory Results 11/18/18 11/18/18 11/18/18 Range/Units 07:38 06:18 06:18 WBC 8.88 (4.8-10.8) K/uL RBC 3.30 L (4.7-6.1) M/uL Hgb 9.2 L (14.0-18.0) g/dL Hct 29.6 L (42-52) % MCV 89.7 (80-100) fL MCH 27.9 (25-34) pg MCHC 31.1 L (32-36) g/dL RDW Std Deviation 67.3 H (36.4-46.3) fL RDW Coeff of Molly 20.9 H (11.5-14.5) % Plt Count 373 (130-400) K/uL MPV 10.3 (7.4-10.4) fL Absolute Nucleated RBC 0.03 H (0-0) K/uL Nucleated RBC % (auto) 0.3 % Sodium 133 L (136-145) mmol/L Potassium 3.6 (3.5-5.1) mmol/L Chloride 98 (98-107) mmol/L Carbon Dioxide 28 (21-32) mmol/L Anion Gap 7.0 (3-11) BUN 30 H (7-18) mg/dl Creatinine 1.26 (0.6-1.4) mg/dl Est Cr Clr Drug Dosing 38.9 ml/min Est GFR ( Amer) 64.2 Est GFR (Non-Af Amer) 55.4 BUN/Creatinine Ratio 23.9 H (10-20) Glucose 189 H (70-99) mg/dl POC Glucose 185 H (70-99) Calcium 8.8 (8.5-10.1) mg/dl 11/17/18 11/17/18 Range/Units 20:05 16:05 WBC (4.8-10.8) K/uL RBC (4.7-6.1) M/uL Hgb (14.0-18.0) g/dL Hct (42-52) % MCV (80-100) fL MCH (25-34) pg MCHC (32-36) g/dL RDW Std Deviation (36.4-46.3) fL RDW Coeff of Molly (11.5-14.5) % Plt Count (130-400) K/uL MPV (7.4-10.4) fL Absolute Nucleated RBC (0-0) K/uL Nucleated RBC % (auto) % Sodium (136-145) mmol/L Potassium (3.5-5.1) mmol/L Chloride (98-107) mmol/L Carbon Dioxide (21-32) mmol/L Anion Gap (3-11) BUN (7-18) mg/dl Creatinine (0.6-1.4) mg/dl Est Cr Clr Drug Dosing ml/min Est GFR ( Amer) Est GFR (Non-Af Amer) BUN/Creatinine Ratio (10-20) Glucose (70-99) mg/dl POC Glucose 155 H 287 H (70-99) Calcium (8.5-10.1) mg/dl _ (1) PNA (pneumonia) Aspiration pneumonia type: Laterality: right Lung location: lower lobe of lung Pneumonia type: due to unspecified organism Qualified Code(s): J18.1 - Lobar pneumonia, unspecified organism (2) Sepsis Sepsis type: sepsis due to unspecified organism Qualified Code(s): A41.9 - Sepsis, unspecified organism (3) DM II (diabetes mellitus, type II), controlled Diabetes mellitus termination clerk insulin use: without termination clerk use Diabetes mellitus complication status: with kidney complications Diabetes mellitus complication detail: with chronic kidney disease Diabetic retinopathy severity : Proliferative retinopathy type: Diabetes mellitus macular edema: Laterality: Chronic kidney disease stage: stage 3 (moderate) Qualified Code(s ): E11.22 - Type 2 diabetes mellitus with diabetic chronic kidney disease; N18.3 - Chronic kidney disease, stage 3 (moderate) (4) Anemia Anemia type: unspecified type Bone marrow failure anemia type: Chronic kidney disease stage: Folate deficiency anemia type: Hemolytic anemia type: Iron deficiency anemia type: Other causes of anemia: Vitamin B12 deficiency anemia type: Qualified Code(s): D64.9 - Anemia, unspecified
[2018-11-18] MEDS ORDERED: POTASSIUM CHLORIDE 20 MEQ TABCR PO ONE (12:45)
[2018-11-18] MEDS: INSULIN GLARGINE SOLOSTAR 100 UNITS/ML 3 ML PEN SC SCH (22:01)
[2018-11-18] MEDS: INSULIN ASPART 100 UNITS/ML 3 ML PEN SC SCH (23:43)
[2018-11-19] MEDS: HEPARIN 100 UNIT/ML 5ML FLUSH FLUSH SCH (03:57)
[2018-11-19] MEDS ORDERED: CEFAZOLIN 1,000 MG/7.5 ML IV PUSH IV SCH (06:00)
[2018-11-19] MEDS: INSULIN ASPART 100 UNITS/ML 3 ML PEN SC SCH ×3 (06:02→20:46)
[2018-11-19 06:04] LABS: Hematocrit (blood only) 28.7 % (42-52); Hemoglobin 9.1 g/dL (14.0-18.0); Mean Corpuscular Hgb Conc 31.7 g/dL (32-36); Mean Platelet Volume 9.6 fL (7.4-10.4); Platelet Count 319 K/uL (130-400); RDW Coefficient of Variation 21.3 % (11.5-14.5); RDW Standard Deviation 68.3 fL (36.4-46.3); Red Blood Count 3.19 M/uL (4.7-6.1); White Blood Count 9.75 K/uL (4.8-10.8)
[2018-11-19 06:26] LABS: Anisocytosis Present; Basophils # (auto) 0.02 K/uL (0-0.2); Basophils % (auto) 0.2 %; Eosinophils # (auto) 0.08 K/uL (0-0.5); Eosinophils % (auto) 0.8 %; Immature Granulocytes # (auto) 0.56 K/uL (0.00-0.02); Immature Granulocytes % (auto) 5.7 %; Lymphocytes # (auto) 0.85 K/uL (1.2-3.4); Lymphocytes % (auto) 8.7 %; Monocytes # (auto) 1.46 K/uL (0.11-0.59); Neutrophils # (auto) 6.78 K/uL (1.4-6.5); Neutrophils % (auto) 69.6 %; Toxic Vacuolation 1+
[2018-11-19 06:38] LABS: BUN Creatinine Ratio 24.5 (10-20); Creatinine Clr Calc Pharmacy 49.1 ml/min; Est GFR (African American) 83.9; Est GFR (Non-African American) 72.4; Potassium 3.9 mmol/L (3.5-5.1)
[2018-11-19] MEDS: METOPROLOL SUCC 25MG EXT REL TAB PO SCH (07:47)
[2018-11-19] MEDS: LACTOBACILLUS ACIDOPHILUS (FLORANEX) TAB PO SCH ×3 (07:53→18:42)
[2018-11-19] MEDS: PANTOprazole 40 MG TAB PO SCH (07:54)
[2018-11-19] MEDS: CEROVITE ADV FORMULA TAB PO SCH (07:54)
[2018-11-19] MEDS: CYANOCOBALAMIN 500 MCG TABLET (VITAMIN B-12) PO SCH (07:54)
[2018-11-19] MEDS: FINASTERIDE 5 MG TAB PO SCH (07:55)
[2018-11-19] MEDS: FUROSEMIDE 20 MG TAB PO SCH (07:55)
[2018-11-19] MEDS: ASPIRIN 81 MG ECTAB PO SCH (07:55)
[2018-11-19] MEDS: ATORVASTATIN 40 MG TAB PO SCH (07:55)
[2018-11-19] MEDS: MAGNESIUM OXIDE 400 MG TAB PO SCH (07:55)
[2018-11-19] MEDS: FERROUS SULFATE 325 MG TAB PO SCH ×2 (07:55→20:48)
--- NOTE | 2018-11-19 08:05 | History & Physical Bridge Note ---
Date of Service November 19, 2018 History & Physical Bridge Note I have examined the patient, reviewed the History & Physical and in the interval since the performance of the History & Physical I have noted the following changes of clinical significance: no changes noted
--- NOTE | 2018-11-19 08:40 | Anesthesiology Consultation ---
Date of Service November 19, 2018 History Surgery Operation Date: 11/19/18 12:30 Proposed Procedures p Left Anterior Eloesser Flap - Aguilar Srivastava MD, FACS Height/Weight Height: 5 ft 7 in Weight: 54.9 kg Allergies Allergy/AdvReac Type Severity Reaction Status Date / Time No Known Allergies Allergy Verified 11/11/18 15:07 Medications Home Medications Medication Instructions Recorded Confirmed Last Taken ferrous sulfate 325 mg PO BID 09/17/18 11/11/18 11/11/18 12:00 finasteride 5 mg PO QAM 09/17/18 11/11/18 11/11/18 12:00 magnesium oxide 400 mg PO QAM 09/17/18 11/11/18 11/11/18 12:00 metformin 1,000 mg PO BID 09/17/18 11/11/18 11/11/18 12:00 multivitamin with minerals 1 tab PO QAM 09/17/18 11/11/18 11/11/18 12:00 [Multiple Vitamin-Minerals] pantoprazole 40 mg PO QAM 09/17/18 11/11/18 11/11/18 12:00 aspirin 81 mg PO QAM 10/14/18 11/11/18 11/11/18 12:00 cyanocobalamin (vitamin B-12) 1,000 mcg PO QAM #30 tab 10/27/18 11/11/18 12:00 [Vitamin B-12] melatonin 1 mg PO HS #30 tab 10/27/18 11/11/18 11/10/18 metoprolol succinate 12.5 mg PO QAM #30 tab 10/27/18 11/11/18 11/11/18 12:00 nitroglycerin 0.4 mg SUBLINGUAL Q5M PRN #30 tab 10/27/18 11/11/18 Unknown nut.tx.gluc intol,lf,soy-fiber 1 ea PO TIDM #6399 ml 10/27/18 11/11/18 Unknown [Boost Glucose Control] furosemide [Lasix] 20 mg PO Q OTHER DAY 11/11/18 11/11/18 Unknown insulin aspart U-100 [Novolog 0 sliding scale dose SUBCUT ACHS 11/11/18 Unknown Flexpen U-100 Insulin] potassium chloride [Klor-Con M20] 20 meq PO Q OTHER DAY 11/11/18 11/11/18 Unknown Active Medications Generic Name Dose Route Start Last Admin Trade Name Freq PRN Reason Stop Dose Admin Aspirin 81 mg 11/12/18 09:00 11/19/18 07:55 Ecotrin Ectab PO 12/12/18 08:59 81 mg QAM NORMA Administration Atorvastatin Calcium 40 mg 11/12/18 09:00 11/19/18 07:55 Lipitor PO 12/12/18 08:59 40 mg QAM NORMA Administration Cyanocobalamin 1,000 mcg 11/12/18 09:00 11/19/18 07:54 Vitamin B-12 PO 12/12/18 08:59 1,000 mcg QAM NORMA Administration Ferrous Sulfate 325 mg 11/11/18 21:00 11/19/18 07:55 Feosol PO 12/11/18 20:59 325 mg BID NORMA Administration Finasteride 5 mg 11/12/18 09:00 11/19/18 07:55 Proscar PO 12/12/18 08:59 5 mg QAM NORMA Administration Furosemide 20 mg 11/16/18 11:00 11/19/18 07:55 Lasix PO 12/16/18 10:59 20 mg QAM NORMA Administration Heparin Sodium (Porcine) 5,000 units 11/11/18 21:00 11/18/18 07:46 Heparin Sodium (Porcine) SQ 12/11/18 20:59 5,000 units Q12 NORMA Administration Heparin Sodium (Porcine) 5 ml 11/15/18 03:00 11/19/18 03:57 Heparin Sod 100 Unit/Ml Flush FLUSH 12/15/18 02:59 5 ml PRN NORMA Administration Insulin Aspart 0 units 11/18/18 22:30 11/19/18 06:02 Novolog Flexpen SC 12/18/18 22:29 Not Given Q6 NORMA Insulin Glargine 5 units 11/17/18 21:00 11/18/18 22:01 Lantus Solostar Pen SC 12/17/18 20:59 5 units HS NORMA Administration Lactobacillus Acidophilus 4 tab 11/13/18 12:00 11/19/18 07:53 Floranex PO 12/13/18 11:59 4 tab TIDM NORMA Administration Magnesium Oxide 400 mg 11/12/18 09:00 11/19/18 07:55 Mag-Ox PO 12/12/18 08:59 400 mg QAM NORMA Administration Metoprolol Succinate 12.5 mg 11/12/18 09:00 11/19/18 07:47 Toprol Xl PO 12/12/18 08:59 12.5 mg QAM NORMA Administration Miscellaneous 15 - 30 gm 11/11/18 19:58 11/13/18 20:12 Carbohydrates For Hypoglycemia PO 12/11/18 19:57 15 gm UD PRN Administration Hypoglycemia Treatment Multivitamins/Minerals 1 tab 11/12/18 09:00 11/19/18 07:54 Multivitamin W/ Minerals Tab PO 12/12/18 08:59 1 tab QAM NORMA Administration Pantoprazole Sodium 40 mg 11/12/18 09:00 11/19/18 07:54 Protonix PO 12/12/18 08:59 40 mg QAM NORMA Administration Past Medical History Medical History Aspergillus fumigatus Acute on chronic systolic (congestive) heart failure CA (myocardial infarction) (Resolved) Small cell lung cancer (Acute 01/27/16) "DIAGNOSIS: Lung, CHATA, small cell lung carcinoma, [id number], stage IIIA TREATMENT: 1. Status post completion of combined radiation and chemotherapy. Radiation completed 05/02/2016 received 7000 cGy 2. 2 addition cycles of cisplatin/etoposide - Dr. Jeffery Ash" On 05/09/16 13:18 Beatris Curiel wrote "DIAGNOSIS: Lung, CHATA, small cell lung carcinoma, [id number], stage IIIA, limited stage Status post completion of combined radiation and chemotherapy. Radiation completed 05/02/2016 received 7000 cGy" On 05/09/16 12:53 Beatris Curiel wrote "DIAGNOSIS: Lung, CHATA, small cell lung carcinoma, [id number], stage IIIA, limited stage Status post completion of combined radiation and chemotherapy. Radiation completed 05/01/2016 received 7000 cGy" On 02/23/16 13:12 Jacinta Poole wrote "DIAGNOSIS: Lung, CHATA, small cell lung carcinoma, [id number], stage IIIA, limited stage" CAD (coronary artery disease) PVD (peripheral vascular disease) Hx of myocardial infarction HTN (hypertension) BPH (benign prostatic hyperplasia) HLD (hyperlipidemia) Anemia CKD stage 3 due to type 2 diabetes mellitus COPD (chronic obstructive pulmonary disease) DM II (diabetes mellitus, type II), controlled Consolidation lung Left upper lobe pneumonia Pneumonia Past Family History Family History Other Diabetes Heart disease Past Surgical History Surgical History History of transurethral resection of prostate History of heart artery stent (Chronic) Social History Smoking Status: Former smoker Do You Dip or Chew Tobacco: No Hx Alcohol Use: No Hx Substance Use: No Physical Exam Vital Signs Last Vital Signs Temp 36.4 C L 11/19/18 07:02 Pulse 110 H 11/19/18 07:02 Resp 17 11/19/18 07:02 BP 105/67 11/19/18 07:02 Pulse Ox 96 11/19/18 07:02 Testing Echocardiogram Date: 05/27/18 EF: 15-20% LV Function: dysfunctional RWMA: + akinetic (some segments akinetic. Best function in inferior wall.) and + hypokinetic (global hypokinesis.) Laboratory Results 11/19/18 05:54 11/19/18 05:54 PT 12.4 Seconds (9.0-12.0) H 11/16/18 05:38 INR 1.2 (0.9-1.1) H 11/16/18 05:38 11/11/18 16:38 Blood Culture - Final Blood No growth 11/11/18 16:38 Blood Culture - Final Blood No growth 11/19/18 11/18/18 11/18/18 05:58 23:41 20:18 POC Glucose 99 270 H 276 H
[2018-11-19] MEDS ORDERED: LIDOCAINE HCL 2% 2 ML VIAL/AMP(20MG/ML) INFIL ONE (13:10)
[2018-11-19] MEDS ORDERED: ROCURONIUM BROMIDE 10 MG/ML 5 ML VIAL ONE (13:10)
[2018-11-19] MEDS ORDERED: PROPOFOL IV EMULSION 10 MG/ML 20 ML VIAL IV ONE (13:10)
[2018-11-19] MEDS ORDERED: MIDAZOLAM HCL 1 MG/ML 2ML VIAL ONE (13:11)
[2018-11-19] MEDS ORDERED: fentaNYL citrate 100 MCG/2 ML VIAL ONE ×2 (13:11→14:02)
[2018-11-19] MEDS ORDERED: SODIUM CHLORIDE 0.9% PF 50 ML VIAL ONE (13:15)
[2018-11-19] MEDS ORDERED: BUPIVACAINE 0.5 % 5 MG/1 ML MPF 30ML VIAL ONE (13:15)
[2018-11-19] MEDS ORDERED: BUPIVACAINE LIPOSOME 1.3% 266 MG/20 ML VIAL ONE (13:16)
[2018-11-19] MEDS ORDERED: LACTATED RINGER'S 1,000 ML IV SCH (14:00)
[2018-11-19] MEDS ORDERED: ATROPINE SULFATE 0.1 MG/ML 10ML SYR IV PRN (14:20)
[2018-11-19] MEDS ORDERED: ONDANSETRON INJ 2 MG/ML 2 ML VIAL IV PRN (14:20)
[2018-11-19] MEDS ORDERED: ePHEDrine sulfate 50 MG/ML AMP IV PRN (14:20)
[2018-11-19] MEDS ORDERED: LABETALOL HCL IV 5 MG/ML 20ML IV PRN (14:20)
[2018-11-19] MEDS ORDERED: fentaNYL citrate 100 MCG/2 ML VIAL IV PRN (14:20)
[2018-11-19] MEDS ORDERED: PHENYLEPHRINE 100MCG/ML 5ML SYR IV PRN (14:20)
[2018-11-19] MEDS ORDERED: MEPERIDINE HCL 25 MG/ML CARP IV PRN (14:20)
[2018-11-19] MEDS ORDERED: HYDROmorphone INJ 1 MG/ML SYRINGE IV PRN (14:20)
[2018-11-19] MEDS: TISSEEL FIBRIN SEALANT 4ML TOP ONE ×2 (14:45→15:27)
--- NOTE | 2018-11-19 15:04 | Post Operative Brief Note ---
Immediate Post Op Note v1 Date of Surgery November 19, 2018 Pre & Post Diagnosis left apical empyema s/p chemotherapy / radiation to CHATA Small Cell Ca CHATA Procedure Left anterior upper chest Eloesser Flap (removal of portions of left anterior 2nd/3rd ribs) Surgeon Aguilar Srivastava MD, FACS [employer] Consult[employer] Rui LOCK Estimated Blood Loss 25 Findings Consistent with Post-Op Diagnosis
[2018-11-19] MEDS ORDERED: TISSEEL FIBRIN SEALANT 10ML TOP ONE (15:28)
--- NOTE | 2018-11-19 15:39 | XRay Report ---
SINGLE VIEW CHEST CLINICAL HISTORY: Postoperative examination. FINDINGS: An AP, portable, upright chest radiograph is compared to dated 11/17/2018 and correlated with chest CT dated 10/26/2018. The examination is degraded by portable technique and patient rotation. Th e left subclavian central venous infusion port has been removed. The heart is top normal for projecti on and there is atherosclerotic calcification of the thoracic aorta. Advanced emphysema and chronic i nterstitial thickening are similar to previous. Opacification is again seen at the left apex, with vo lume loss in the left lung. Airspace consolidation is noted at both lung bases. Small pleural effusio ns are identified. There is no pneumothorax identified. The skeletal structures are osteopenic. The b marium thorax is grossly intact. Subcutaneous emphysema is suggested in the left upper chest. IMPRESSION: 1. No pneumothorax is clearly identified post procedure. 2. The central venous infusion port has been removed. 3. Advanced emphysema and left apical opacification are similar to previous. 4. There are bilateral pleural effusions. 5. Consolidative change is seen at both lung bases. Electronically signed by: Dmeario Geller M.D. 11/19/2018 3:38 PM
--- NOTE | 2018-11-19 16:09 | Anesthesiology Progress Note ---
Date of Service November 19, 2018 Anesthesia Post Procedure Vital Signs Vital Signs: Temp Pulse Pulse Resp BP BP Pulse Ox 11/19/18 15:55 87 20 108/78 98 11/19/18 15:45 86 13 112/75 95 11/19/18 15:35 87 14 105/72 100 11/19/18 15:25 85 18 92/72 L 100 11/19/18 15:19 36.3 C L 88 21 93/76 L 100 11/19/18 12:07 36.4 C L 103 H 18 97/62 L 94 11/19/18 11:44 36.3 C L 96 H 16 99/71 L 96 11/19/18 07:02 36.4 C L 110 H 17 105/67 96 11/19/18 04:13 36.4 C L 108 H 18 103/75 93 11/18/18 23:17 36.5 C 108 H 17 105/75 94 11/18/18 19:17 36.4 C L 106 H 24 93/63 L 97 Pain Intensity Bilateral: Pain Intensity: 0 Left Chest: Pain Intensity: 0 Notes Mental Status: alert / awake / arousable Patient Amnestic to Procedure: Yes Nausea / Vomiting: adequately controlled Pain: adequately controlled Airway Patency, RR, SpO2: stable & adequate BP & HR: stable & adequate Hydration State: stable & adequate Anesthetic Complications: no major complications apparent Notes: Awake, doing well, no complaints, VSS. Requiring 2L via NC.
--- NOTE | 2018-11-19 16:27 | Post Operative Brief Note ---
Immediate Post Op Note v1 Date of Surgery November 19, 2018 Pre & Post Diagnosis Operation Date: 11/19/18 12:30 Pre-Op Diagnosis: Empyema cavity left upper chest Status post chemotherapy radiation for small cell lung carcinoma left upper lobe Repeated pneumonias. Indwelling left infraclavicular Port-A-Cath Post-Op Diagnosis: Same Procedure Operation Date: 11/19/18 12:30 Actual Procedures p Left Anterior Eloesser Flap(Left) - Aguilar Srivastava MD, FACS Removal of left Port-A-Cath Bronchoscopy Surgeon Aguilar Srivastava MD, FACS Field Laborer Rui LOCK Estimated Blood Loss 25 Findings Consistent with Post-Op Diagnosis
[2018-11-19] MEDS ORDERED: MoRPHine SULFATE 4 MG/ML 1 ML CARP\\VIAL IV PRN (17:07)
[2018-11-19] MEDS ORDERED: D5W AND 1/2NSS 1,000 ML IV SCH (17:07)
--- NOTE | 2018-11-19 18:13 | Hospitalist Progress Note ---
Date of Service November 19, 2018 Assessment & Plan (1) PNA (pneumonia): RLL. Recurrent pneumonia secondary to aspiration spillover from left upper lobe empyema-corrected with Eloesser flap today. Completed 8-9 days of zosyn. Covering for gram negatives and anaerobes. ID consult and thoracic surgery management appreciated Repeat cxr with dense RLL consolidation but no worse than previous and no pulmonary edema on that cxr. -We will need to follow chest x-ray to resolution of infiltrate -Postop chest x-ray ordered for in the morning (2) Sepsis: 2nd to pneumonia - resolved. (3) Acute respiratory failure with hypoxia: Still w/ o2 requirement. Secondary to acute CHF and pneumonia. He has periods of tachypnea, suspect due to anxiety. He has declined the use of low dose benzos. 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 He had been on voriconazole for this. This was stopped in the setting of shock liver during his prior hospital stay. Although LFTs have normalized ID recommends holding voriconazole for now and await intraoperative cultures if taken (5) Nonsustained ventricular tachycardia: Has very brief 2-4 beat runs that are asymptomatic. -Need for AICD in light of depressed EF was addressed by Cardiology and feel he would not get benefit as his life expectancy is not long enough (6) Severe protein-calorie malnutrition: boost, etc ongoing - due to recurrent pneumonia, etc (7) Acute on chronic systolic (congestive) heart failure: appears compensated despite his complaint of dyspnea. Weight is up 3 kg from his weight during previous hospital stay, but down 2-3kg since admission this time He lays flat in bed without difficulty. cont BB cont lasix 20mg daily in light of tachycardia - try increasing beta veronica to 25mg daily? defer to cardiology for this decision (8) Cavitary lesion of lung: CHATA. With empyema Dr. Srivastava performed Eloesser flap on 11/19/18 to decrease the incidence of airway contamination from the CHATA cavity. Postoperative management as per thoracic surgery -Pain control with morphine as needed (9) CKD stage 3 due to type 2 diabetes mellitus: creatinine stable, BMP in am -Renally dose medications when appropriate -Avoid nephrotoxins (10) DM II (diabetes mellitus, type II), controlled: had been controlled, but then BSGs trended up, now acceptable -continue lantus 5 units nightly -continue novolog supplemental at current dosing (11) Anxiety: declines Rx for lorazepam (12) Anemia: stable at hgb 9, secondary to Fe-def and chronic disease -continue FeSO4 tabs -Follow postop CBC in the morning (13) DVT prophylaxis: cont heparin BID but held for procedure-restart when ok with surgery SCDs Dispo- high risk of arrhythmia- keep on tele FULL CODE Subjective The patient just returned from the PACU after his Eloesser flap procedure today. He reports feeling some pain in the left anterior chest wall. He denies much shortness of breath. He is sipping some liquids but has not tried eating regular food yet. Review of Systems All systems reviewed & are unremarkable except as noted in HPI & below Physical Exam 2 Vital Signs (Past 24 Hours): Last Vital Signs Temp 36.2 C L 11/19/18 17:11 Pulse 93 H 11/19/18 18:00 Resp 16 11/19/18 17:11 BP 112/76 11/19/18 17:11 Pulse Ox 92 11/19/18 17:11 Constitutional: WD/WN, vitals as above (Appears chronically ill) no acute distress Eyes: PERRL, conjunctivae normal, anicteric sclerae Neck: trachea midline, no thyromegaly Respiratory: normal respiratory effort Auscultation: + crackles (At the bases bilaterally) Cardiovascular: RRR, no murmur, no edema Vessels: + JVD (to 8 cm) Chest (Breasts): Chest: + abnormal inspection of chest (Left superior anterior chest wall with thick dressing in place, C/D/I) Gastrointestinal (Abdomen): normal bowel sounds, soft, nontender, no hepatosplenomegaly Musculoskeletal: Extremities: extremities normal to inspection; no cyanosis and no clubbing Skin: no rashes, warm and dry Neurologic: moves all extremities and awake; no focal motor deficits Psychiatric: A+Ox3, euthymic affect Results & Data Laboratory Results 11/19/18 11/19/18 11/19/18 Range/Units 16:09 11:43 05:58 WBC (4.8-10.8) K/uL RBC (4.7-6.1) M/uL Hgb (14.0-18.0) g/dL Hct (42-52) % MCV (80-100) fL MCH (25-34) pg MCHC (32-36) g/dL RDW Std Deviation (36.4-46.3) fL RDW Coeff of Molly (11.5-14.5) % Plt Count (130-400) K/uL MPV (7.4-10.4) fL Immature Gran % (Auto) % Neut % (Auto) % Lymph % (Auto) % [place] % (Auto) % Eos % (Auto) % Baso % (Auto) % Immature Gran # (Auto) (0.00-0.02) K/uL Neut # (Auto) (1.4-6.5) K/uL Lymph # (Auto) (1.2-3.4) K/uL [place] # (Auto) (0.11-0.59) K/uL Eos # (Auto) (0-0.5) K/uL Baso # (Auto) (0-0.2) K/uL Toxic Vacuolation Anisocytosis Sodium (136-145) mmol/L Potassium (3.5-5.1) mmol/L Chloride (98-107) mmol/L Carbon Dioxide (21-32) mmol/L Anion Gap (3-11) BUN (7-18) mg/dl Creatinine (0.6-1.4) mg/dl Est Cr Clr Drug Dosing ml/min Est GFR ( Amer) Est GFR (Non-Af Amer) BUN/Creatinine Ratio (10-20) Glucose (70-99) mg/dl POC Glucose 127 H 108 H 99 (70-99) Calcium (8.5-10.1) mg/dl Magnesium (1.8-2.4) mg/dl Blood Type Antibody Screen 11/19/18 11/19/18 11/19/18 Range/Units 05:54 05:54 05:54 WBC 9.75 (4.8-10.8) K/uL RBC 3.19 L (4.7-6.1) M/uL Hgb 9.1 L (14.0-18.0) g/dL Hct 28.7 L (42-52) % MCV 90.0 (80-100) fL MCH 28.5 (25-34) pg MCHC 31.7 L (32-36) g/dL RDW Std Deviation 68.3 H (36.4-46.3) fL RDW Coeff of Molly 21.3 H (11.5-14.5) % Plt Count 319 (130-400) K/uL MPV 9.6 (7.4-10.4) fL Immature Gran % (Auto) 5.7 % Neut % (Auto) 69.6 % Lymph % (Auto) 8.7 % [place] % (Auto) 15.0 % Eos % (Auto) 0.8 % Baso % (Auto) 0.2 % Immature Gran # (Auto) 0.56 H (0.00-0.02) K/uL Neut # (Auto) 6.78 H (1.4-6.5) K/uL Lymph # (Auto) 0.85 L (1.2-3.4) K/uL [place] # (Auto) 1.46 H (0.11-0.59) K/uL Eos # (Auto) 0.08 (0-0.5) K/uL Baso # (Auto) 0.02 (0-0.2) K/uL Toxic Vacuolation 1+ Anisocytosis Present Sodium 137 (136-145) mmol/L Potassium 3.9 (3.5-5.1) mmol/L Chloride 102 (98-107) mmol/L Carbon Dioxide 29 (21-32) mmol/L Anion Gap 6.0 (3-11) BUN 25 H (7-18) mg/dl Creatinine 1.01 (0.6-1.4) mg/dl Est Cr Clr Drug Dosing 49.1 ml/min Est GFR ( Amer) 83.9 Est GFR (Non-Af Amer) 72.4 BUN/Creatinine Ratio 24.5 H (10-20) Glucose 91 (70-99) mg/dl POC Glucose (70-99) Calcium 9.0 (8.5-10.1) mg/dl Magnesium 2.0 (1.8-2.4) mg/dl Blood Type O Positive Antibody Screen NEGATIVE 11/18/18 11/18/18 Range/Units 23:41 20:18 WBC (4.8-10.8) K/uL RBC (4.7-6.1) M/uL Hgb (14.0-18.0) g/dL Hct (42-52) % MCV (80-100) fL MCH (25-34) pg MCHC (32-36) g/dL RDW Std Deviation (36.4-46.3) fL RDW Coeff of Molly (11.5-14.5) % Plt Count (130-400) K/uL MPV (7.4-10.4) fL Immature Gran % (Auto) % Neut % (Auto) % Lymph % (Auto) % [place] % (Auto) % Eos % (Auto) % Baso % (Auto) % Immature Gran # (Auto) (0.00-0.02) K/uL Neut # (Auto) (1.4-6.5) K/uL Lymph # (Auto) (1.2-3.4) K/uL [place] # (Auto) (0.11-0.59) K/uL Eos # (Auto) (0-0.5) K/uL Baso # (Auto) (0-0.2) K/uL Toxic Vacuolation Anisocytosis Sodium (136-145) mmol/L Potassium (3.5-5.1) mmol/L Chloride (98-107) mmol/L Carbon Dioxide (21-32) mmol/L Anion Gap (3-11) BUN (7-18) mg/dl Creatinine (0.6-1.4) mg/dl Est Cr Clr Drug Dosing ml/min Est GFR ( Amer) Est GFR (Non-Af Amer) BUN/Creatinine Ratio (10-20) Glucose (70-99) mg/dl POC Glucose 270 H 276 H (70-99) Calcium (8.5-10.1) mg/dl Magnesium (1.8-2.4) mg/dl Blood Type Antibody Screen ECG Additional Comments: Telemetry with normal sinus rhythm, sinus tachycardia in the low 100s-1 teens, bigeminy, 2-4 beat runs of V. tach _ (1) PNA (pneumonia) Aspiration pneumonia type: Laterality: right Lung location: lower lobe of lung Pneumonia type: due to unspecified organism Qualified Code(s): J18.1 - Lobar pneumonia, unspecified organism (2) Sepsis Sepsis type: sepsis due to unspecified organism Qualified Code(s): A41.9 - Sepsis, unspecified organism (3) DM II (diabetes mellitus, type II), controlled Diabetes mellitus termite treater insulin use: without termite treater use Diabetes mellitus complication status: with kidney complications Diabetes mellitus complication detail: with chronic kidney disease Diabetic retinopathy severity : Proliferative retinopathy type: Diabetes mellitus macular edema: Laterality: Chronic kidney disease stage: stage 3 (moderate) Qualified Code(s ): E11.22 - Type 2 diabetes mellitus with diabetic chronic kidney disease; N18.3 - Chronic kidney disease, stage 3 (moderate) (4) Anemia Anemia type: unspecified type Bone marrow failure anemia type: Chronic kidney disease stage: Folate deficiency anemia type: Hemolytic anemia type: Iron deficiency anemia type: Other causes of anemia: Vitamin B12 deficiency anemia type: Qualified Code(s): D64.9 - Anemia, unspecified
[2018-11-19] MEDS: ACETAMINOPHEN 1,000 MG/100 ML VIAL IV SCH (18:42)
--- NOTE | 2018-11-19 20:27 | Infectious Disease Progress Nt ---
Date of Service November 19, 2018 Assessment & Plan (1) Cavitary pneumonia: Patient with cavitary pneumonia, now status post flap procedure. Patient to continue on broad-spectrum antibiotics pending operative cultures. Will follow Subjective Patient seen in follow-up for progressive cavitary pneumonia. Now status post flap procedure. Expected postop discomfort. Operative cultures are pending. Review of Systems All systems reviewed & are unremarkable except as noted in HPI & below Physical Exam 2 Vital Signs (Past 24 Hours): Last Vital Signs Temp 35.9 C L 11/19/18 19:15 Pulse 84 11/19/18 19:15 Resp 19 11/19/18 19:15 BP 103/70 11/19/18 19:15 Pulse Ox 93 11/19/18 19:15 Constitutional: WD/WN, vitals as above comfortable; no acute distress Eyes: PERRL, conjunctivae normal, anicteric sclerae ENMT: external ear and nose normal, oropharynx normal Neck: trachea midline, no thyromegaly neck nontender Respiratory: no respiratory distress and no dullness to percussion Auscultation: + rales (Both bases) Cardiovascular: Rate/Rhythm: regular rate and regular rhythm Heart Sounds: normal S1 and normal S2; no gallop, no murmur and no cardiac rub Vessels: normal peripheral pulses; no JVD Gastrointestinal (Abdomen): normal bowel sounds, soft, nontender, no hepatosplenomegaly Musculoskeletal: no cyanosis or clubbing, extremities motor strength 5/5 Spine: thoracic spine normal to inspection and lumbar spine normal to inspection ; no cervical spinal tenderness Skin: no rashes, warm and dry normal turgor; no lesions Neurologic: patellar DTR's 2+ bilat, sensation intact no focal motor deficits Psychiatric: A+Ox3, euthymic affect Orientation: cooperative Lymphatic: no cervical or axillary lymphadenopathy no inguinal lymphadenopathy Results & Data Laboratory Results Short CBC 11/19/18 Range/Units 05:54 WBC 9.75 (4.8-10.8) K/uL Hgb 9.1 L (14.0-18.0) g/dL Hct 28.7 L (42-52) % Plt Count 319 (130-400) K/uL BMP 11/19/18 05:54 Sodium 137 Potassium 3.9 Chloride 102 Carbon Dioxide 29 BUN 25 H Creatinine 1.01 Glucose 91 Calcium 9.0 Diagnostic Findings Microbiology 11/11/18 16:38 Blood Blood Culture - Final No growth 11/11/18 16:38 Blood Blood Culture - Final No growth SINGLE VIEW CHEST CLINICAL HISTORY: Postoperative examination. FINDINGS: An AP, portable, upright chest radiograph is compared to dated 2018 and correlated with chest CT dated 10/26/2018. The examination is degraded by portable technique and patient rotation. The left subclavian central venous infusion port has been removed. The heart is top normal for projection and there is atherosclerotic calcification of the thoracic aorta. Advanced emphysema and chronic interstitial thickening are similar to previous. Opacification is again seen at the left apex, with volume loss in the left lung. Airspace consolidation is noted at both lung bases. Small pleural effusions are identified. There is no pneumothorax identified. The skeletal structures are osteopenic. The bony thorax is grossly intact. Subcutaneous emphysema is suggested in the left upper chest. IMPRESSION: 1. No pneumothorax is clearly identified post procedure. 2. The central venous infusion port has been removed. 3. Advanced emphysema and left apical opacification are similar to previous. 4. There are bilateral pleural effusions. 5. Consolidative change is seen at both lung bases. Electronically signed by: Demario Geller M.D. 11/19/2018 3:38 PM Dictated: 11/19/18 [id number]
[2018-11-19] MEDS: INSULIN GLARGINE SOLOSTAR 100 UNITS/ML 3 ML PEN SC SCH (20:48)
[2018-11-20] MEDS: ACETAMINOPHEN 1,000 MG/100 ML VIAL IV SCH ×3 (01:06→17:51)
--- NOTE | 2018-11-20 02:07 | Operative Report ---
DATE OF OPERATION: 11/19/2018 PREOPEARTIVE DIAGNOSES: 1. Empyema cavity, left upper chest cavity. 2. History of radiation chemotherapy for small cell lung carcinoma, left upper lobe. 3. Repeated pneumonias. 4. Cardiomyopathy. 5. Left dwelling infraclavicular Port-A-Cath. POSTOPEARTIVE DIAGNOSES: 1. Empyema cavity, left upper chest cavity. 2. History of radiation chemotherapy for small cell lung carcinoma, left upper lobe. 3. Repeated pneumonias. 4. Cardiomyopathy. 5. Left dwelling infraclavicular Port-A-Cath. PROCEDURE: 1. Removal of left infraclavicular Port-A-Cath. 2. Creation of left superior anterior Eloesser flap. 3. Bronchoscopy at conclusion of case. SURGEON: Aguilar Srivastava MD INSURANCE TERRITORY MANAGER: ASHVIN Ba ANESTHESIA: General anesthesia, endotracheal intubation. INDICATIONS FOR PROCEDURE AND FINDINGS: This is a 73-year-old male who had small cell lung carcinoma diagnosed via endobronchial ultrasound and navigational bronchoscopy in 01/2016. He underwent treatment with chemotherapy and radiation and radiographically had a response; however, this created a problem in his left upper lobe with his rather large cancer responded, but there was a space left and this space had fluid in it, which connected directly with the left mainstem bronchus. He has had some hemoptysis and has also had repeated pneumonias. It was quite a problem and we had discussed and Eloesser flap and I kept open, to heal and improve. The patient is cachectic, quite weak; however, he improves at home but will quickly developed a pneumonic process involving both of his lower lobes. In addition, he has cardiomyopathy, which is probably ischemic in origin and also has terrible bullous emphysema, especially in the right upper lobe. I finally decided to perform an Eloesser flap and we would remove the second and third rib and create flaps, we could treat this space which I believe is contaminating his lungs. On 11/19/2018, the patient underwent an uncomplicated Eloesser flap. Second and third ribs were removed anteriorly. We did get some purulent material which was sent for culture as well and also sent tissue for histology. We had packed this with a Kerlix pack. He tolerated it well. PROCEDURE: The patient brought to operating room and laid in supine position. General anesthesia induced, endotracheal intubation was performed. He was prepped and draped in usual sterile fashion, calling appropriate timeout and given prophylactic antibiotics. Incision was made over the interspace through the second and third rib. This was right over the Port-A-Cath reservoir. This was freed up from its attachments and delivered off the field. The catheter came out easily. We then went down between the pectoralis fibers in the same direction and went in through the interspace between the second and third rib. This took us directly down into the cavity. I then took periosteal elevator, removed the periosteum from the second and third rib and with rongeurs and a warehouse distribution specialist removed this. Used the warehouse distribution specialist to go back. The problem was that he has a small chest and it went straight curving posteriorly after getting more and more superior and I was removing portions of the second and third rib. After removing the third rib, what appeared to be the left lower lobe superiorly was stuck. At this point I did not want to create a space there. For this reason, I went more lateral and superior however, we came up to the first rib, and the clavicle was right over this, but we were high enough, although the cavity were not as big as I would like. It was about 10 x 6 cm. We then used a curette to gently remove this material. Some of this fluid was sent for culture and I also sent tissue off for histology and culture. We used a rongeur to smooth out all of the rib edges. There was obvious lung underlying, especially medial, which was much more distensible than I would have thought. It moved up and down fairly easily. There was also holes in this lung which were resulting in an air leak. These were present from the opening of the cavity. I did use an Aquamantys to make sure we had meticulous control of bleeding which we did. I then used #1 Prolene to suture the skin to the underlying rib and pleural tissues and this created about a 10 x 3 cm thoracostomy defect which extended superiorly. We could get to the end of it easily; however, this is going to create some problems, I believe, with packing, but at this point, I was hesitant to go further or to go higher because of the first rib and the vessels and also I did not want to go lower to create a bigger space with the lung attached to the third rib. For this reason, we kept this space the way it was, easily packed Kerlix into this, which had been dampened. I did use some Tisseel and sprayed it over these air leaks, which appeared to stop them. We then packed it with the Kerlix, which had been soaked in warm saline and wrung dry. This filled it in quite nicely. The patient had negligible blood loss and was extubated in the room. He tolerated it well. I attest to the content of the Intraoperative Record and any orders documented therein. Any exceptions are noted below. RADHAD
[2018-11-20] MEDS: HEPARIN 100 UNIT/ML 5ML FLUSH FLUSH SCH (06:28)
[2018-11-20 06:31] LABS: Basophils # (auto) 0.03 K/uL (0-0.2); Basophils % (auto) 0.3 %; Eosinophils # (auto) 0.02 K/uL (0-0.5); Eosinophils % (auto) 0.2 %; Hematocrit (blood only) 28.3 % (42-52); Hemoglobin 8.9 g/dL (14.0-18.0); Immature Granulocytes # (auto) 0.35 K/uL (0.00-0.02); Immature Granulocytes % (auto) 3.3 %; Lymphocytes # (auto) 0.88 K/uL (1.2-3.4); Lymphocytes % (auto) 8.3 %; Mean Corpuscular Hgb Conc 31.4 g/dL (32-36); Mean Corpuscular Volume 90.4 fL (80-100); Mean Platelet Volume 9.8 fL (7.4-10.4); Monocytes # (auto) 1.26 K/uL (0.11-0.59); Monocytes % (auto) 11.8 %; Neutrophils # (auto) 8.12 K/uL (1.4-6.5); Neutrophils % (auto) 76.1 %; Platelet Count 282 K/uL (130-400); RDW Coefficient of Variation 21.6 % (11.5-14.5); Red Blood Count 3.13 M/uL (4.7-6.1); White Blood Count 10.66 K/uL (4.8-10.8)
--- NOTE | 2018-11-20 07:04 | XRay Report ---
XR chest 1V portable CLINICAL HISTORY: s/p left eloessar flap postoperative evaluation COMPARISON STUDY: 11/19/2018 FINDINGS: Slight increase in subcutaneous emphysema left hemithorax and left supraclavicular region c ompared to the prior exam. Unchanged opacification left apex. Diffuse infiltrate right base also unch anged. IMPRESSION: 1. Mildly progressive left upper hemithoracic subcutaneous emphysema. 2. Study is otherwise unchanged. 3. No significant pneumothorax. The above report was generated using voice recognition software. It may contain grammatical, syntax or spelling errors. Electronically signed by: Ezekiel Collier M.D. 11/20/2018 7:03 AM
[2018-11-20 07:14] LABS: Rouleaux 1+
[2018-11-20 07:28] LABS: Albumin Globulin Ratio 0.6 (0.9-2); Albumin Level 2.4 gm/dl (3.4-5.0); BUN Creatinine Ratio 23.3 (10-20); Bilirubin,Total 0.7 mg/dl (0.2-1); Creatinine Clr Calc Pharmacy 39.3 ml/min; Est GFR (African American) 65.5; Est GFR (Non-African American) 56.5; Globulin 3.9 gm/dl (2.5-4.0); Potassium 4.9 mmol/L (3.5-5.1); Total Protein 6.3 gm/dl (6.4-8.2)
[2018-11-20] MEDS: INSULIN ASPART 100 UNITS/ML 3 ML PEN SC SCH ×5 (07:28→20:49)
[2018-11-20] MEDS: METOPROLOL SUCC 25MG EXT REL TAB PO SCH (07:41)
[2018-11-20] MEDS: ATORVASTATIN 40 MG TAB PO SCH (07:43)
[2018-11-20] MEDS: LACTOBACILLUS ACIDOPHILUS (FLORANEX) TAB PO SCH ×3 (07:43→16:44)
[2018-11-20] MEDS: FUROSEMIDE 20 MG TAB PO SCH (07:44)
[2018-11-20] MEDS: FERROUS SULFATE 325 MG TAB PO SCH ×2 (07:44→20:51)
[2018-11-20] MEDS: FINASTERIDE 5 MG TAB PO SCH (07:44)
[2018-11-20] MEDS: MAGNESIUM OXIDE 400 MG TAB PO SCH (07:44)
[2018-11-20] MEDS: PANTOprazole 40 MG TAB PO SCH (07:44)
[2018-11-20] MEDS: ASPIRIN 81 MG ECTAB PO SCH (07:45)
[2018-11-20] MEDS: CYANOCOBALAMIN 500 MCG TABLET (VITAMIN B-12) PO SCH (07:45)
[2018-11-20] MEDS: CEROVITE ADV FORMULA TAB PO SCH (07:45)
--- NOTE | 2018-11-20 15:59 | Hospitalist Progress Note ---
Date of Service November 20, 2018 Assessment & Plan (1) PNA (pneumonia): RLL. Recurrent pneumonia secondary to aspiration spillover from left upper lobe empyema-corrected with Eloesser flap Completed 8-9 days of zosyn. Covered for gram negatives and anaerobes. ID consult and thoracic surgery management appreciated Repeat cxr with dense RLL consolidation but no worse than previous and no pulmonary edema on that cxr. -We will need to follow chest x-ray to resolution of infiltrate (2) Sepsis: 2nd to pneumonia - resolved. (3) Acute respiratory failure with hypoxia: Still w/ o2 requirement but seems to be more for comfort, satting 99% on 1 L today but would not allow the nurse to remove the oxygen. Secondary to acute CHF and pneumonia. He has periods of tachypnea, suspect due to anxiety. He has declined the use of low dose benzos. 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 He had been on voriconazole for this. This was stopped in the setting of shock liver during his prior hospital stay. Although LFTs have normalized ID recommends holding voriconazole for now and await intraoperative cultures if taken (5) Nonsustained ventricular tachycardia: Has very brief 2-4 beat runs that are asymptomatic. None further since 11/19 -Need for AICD in light of depressed EF was addressed by Cardiology and feel he would not get benefit as his life expectancy is not long enough (6) Severe protein-calorie malnutrition: boost, etc ongoing - due to recurrent pneumonia, etc (7) Acute on chronic systolic (congestive) heart failure: appears compensated despite his complaint of dyspnea. Weight is up 3 kg from his weight during previous hospital stay, but down 2-3kg since admission this time He lays flat in bed without difficulty. cont BB cont lasix 20mg daily With increased dyspnea today, could be from tachycardia after beta-veronica was held this morning -Give 1 dose of metoprolol tartrate 12.5 mg p.o. x1 now -Change Toprol-XL holding parameters to lower the heart rate parameter to 95 (8) Cavitary lesion of lung: CHATA. With empyema Dr. Srivastava performed Eloesser flap on 11/19/18 to decrease the incidence of airway contamination from the CHATA cavity. Postoperative management as per thoracic surgery-doing well postoperatively -Pain control with morphine as needed (9) CKD stage 3 due to type 2 diabetes mellitus: creatinine stable, BMP in am -Renally dose medications when appropriate -Avoid nephrotoxins (10) DM II (diabetes mellitus, type II), controlled: had been controlled, but then BSGs trended up, now acceptable -continue lantus 5 units nightly -continue novolog supplemental at current dosing (11) Anxiety: declines Rx for lorazepam (12) Anemia: stable at hgb 8.9, secondary to Fe-def and chronic disease -continue FeSO4 tabs (13) DVT prophylaxis: Subcu heparin on hold since surgery-we will restart hopefully tomorrow after discussion with surgery SCDs Dispo- high risk of arrhythmia- keep on tele FULL CODE Subjective Patient started feeling more dyspneic than usual the last 2 hours. His metoprolol was held this morning for systolic blood pressure less than 100 and he has been tachycardic in the low 100s-1 teens all day. His weight is not up from previous and his fluid balance is fairly even in the last 24 hours. He is making urine. He denies cough other than one time with some brownish green sputum. He has no pain at all at the site of his surgery. Telemetry with sinus tachycardia normal sinus rhythm with a 100s-1 teens, some bigeminy, no further ventricular tachycardia Review of Systems All systems reviewed & are unremarkable except as noted in HPI & below Physical Exam 2 Vital Signs (Past 24 Hours): Last Vital Signs Temp 35.9 C L 11/20/18 15:21 Pulse 110 H 11/20/18 15:21 Resp 20 11/20/18 15:21 BP 92/63 L 11/20/18 15:21 Pulse Ox 96 11/20/18 15:21 Constitutional: WD/WN, vitals as above (Appears chronically ill) + acute distress (Mild with pursed lip breathing, seems anxious) Eyes: PERRL, conjunctivae normal, anicteric sclerae Neck: trachea midline, no thyromegaly Respiratory: + labored breathing Auscultation: + bronchovesicular breath sounds (Left upper lung field) Cardiovascular: Rate/Rhythm: regular rhythm and + tachycardic Heart Sounds : no murmur Vessels: dorsalis pedis pulses present Extremities: no edema Chest (Breasts): Chest: + abnormal inspection of chest (Left superior anterior chest wall with thick dressing in place, C/D/I) Gastrointestinal (Abdomen): normal bowel sounds, soft, nontender, no hepatosplenomegaly Musculoskeletal: Extremities: extremities normal to inspection; no cyanosis and no clubbing Skin: no rashes, warm and dry Neurologic: moves all extremities and awake; no focal motor deficits Psychiatric: Orientation: alert and oriented x 3 Affect: + anxious affect Results & Data Laboratory Results 11/20/18 11/20/18 11/20/18 Range/Units 20:24 16:18 11:14 WBC (4.8-10.8) K/uL RBC (4.7-6.1) M/uL Hgb (14.0-18.0) g/dL Hct (42-52) % MCV (80-100) fL MCH (25-34) pg MCHC (32-36) g/dL RDW Std Deviation (36.4-46.3) fL RDW Coeff of Molly (11.5-14.5) % Plt Count (130-400) K/uL MPV (7.4-10.4) fL Immature Gran % (Auto) % Neut % (Auto) % Lymph % (Auto) % Hood % (Auto) % Eos % (Auto) % Baso % (Auto) % Immature Gran # (Auto) (0.00-0.02) K/uL Neut # (Auto) (1.4-6.5) K/uL Lymph # (Auto) (1.2-3.4) K/uL Hood # (Auto) (0.11-0.59) K/uL Eos # (Auto) (0-0.5) K/uL Baso # (Auto) (0-0.2) K/uL Rouleaux Sodium (136-145) mmol/L Potassium (3.5-5.1) mmol/L Chloride (98-107) mmol/L Carbon Dioxide (21-32) mmol/L Anion Gap (3-11) BUN (7-18) mg/dl Creatinine (0.6-1.4) mg/dl Est Cr Clr Drug Dosing ml/min Est GFR ( Amer) Est GFR (Non-Af Amer) BUN/Creatinine Ratio (10-20) Glucose (70-99) mg/dl POC Glucose 129 H 191 H 138 H (70-99) Calcium (8.5-10.1) mg/dl Magnesium (1.8-2.4) mg/dl Total Bilirubin (0.2-1) mg/dl AST (15-37) U/L ALT (12-78) U/L Alkaline Phosphatase (45-117) U/L Total Protein (6.4-8.2) gm/dl Albumin (3.4-5.0) gm/dl Globulin (2.5-4.0) gm/dl Albumin/Globulin Ratio (0.9-2) 11/20/18 11/20/18 11/20/18 Range/Units 07:20 05:58 05:58 WBC 10.66 (4.8-10.8) K/uL RBC 3.13 L (4.7-6.1) M/uL Hgb 8.9 L (14.0-18.0) g/dL Hct 28.3 L (42-52) % MCV 90.4 (80-100) fL MCH 28.4 (25-34) pg MCHC 31.4 L (32-36) g/dL RDW Std Deviation 70.0 H (36.4-46.3) fL RDW Coeff of Molly 21.6 H (11.5-14.5) % Plt Count 282 (130-400) K/uL MPV 9.8 (7.4-10.4) fL Immature Gran % (Auto) 3.3 % Neut % (Auto) 76.1 % Lymph % (Auto) 8.3 % Hood % (Auto) 11.8 % Eos % (Auto) 0.2 % Baso % (Auto) 0.3 % Immature Gran # (Auto) 0.35 H (0.00-0.02) K/uL Neut # (Auto) 8.12 H (1.4-6.5) K/uL Lymph # (Auto) 0.88 L (1.2-3.4) K/uL Hood # (Auto) 1.26 H (0.11-0.59) K/uL Eos # (Auto) 0.02 (0-0.5) K/uL Baso # (Auto) 0.03 (0-0.2) K/uL Rouleaux 1+ Sodium 135 L (136-145) mmol/L Potassium 4.9 D (3.5-5.1) mmol/L Chloride 100 (98-107) mmol/L Carbon Dioxide 26 (21-32) mmol/L Anion Gap 9.0 (3-11) BUN 29 H (7-18) mg/dl Creatinine 1.24 (0.6-1.4) mg/dl Est Cr Clr Drug Dosing 39.3 ml/min Est GFR ( Amer) 65.5 Est GFR (Non-Af Amer) 56.5 BUN/Creatinine Ratio 23.3 H (10-20) Glucose 120 H (70-99) mg/dl POC Glucose 119 H (70-99) Calcium 9.0 (8.5-10.1) mg/dl Magnesium 2.0 (1.8-2.4) mg/dl Total Bilirubin 0.7 (0.2-1) mg/dl AST 64 H (15-37) U/L ALT 61 (12-78) U/L Alkaline Phosphatase 180 H (45-117) U/L Total Protein 6.3 L (6.4-8.2) gm/dl Albumin 2.4 L (3.4-5.0) gm/dl Globulin 3.9 (2.5-4.0) gm/dl Albumin/Globulin Ratio 0.6 L (0.9-2) Diagnostic Findings Chest x-ray image personally reviewed by me and agree with the following report: XR chest 1V portable CLINICAL HISTORY: s/p left eloessar flap postoperative evaluation COMPARISON STUDY: 11/19/2018 FINDINGS: Slight increase in subcutaneous emphysema left hemithorax and left supraclavicular region compared to the prior exam. Unchanged opacification left apex. Diffuse infiltrate right base also unchanged. IMPRESSION: 1. Mildly progressive left upper hemithoracic subcutaneous emphysema. 2. Study is otherwise unchanged. 3. No significant pneumothorax. _ (1) Anemia Anemia type: unspecified type Bone marrow failure anemia type: Chronic kidney disease stage: Folate deficiency anemia type: Hemolytic anemia type: Iron deficiency anemia type: Other causes of anemia: Vitamin B12 deficiency anemia type: Qualified Code(s): D64.9 - Anemia, unspecified (2) DM II (diabetes mellitus, type II), controlled Chronic kidney disease stage: stage 3 (moderate) Diabetes mellitus complication detail: with chronic kidney disease Diabetes mellitus complication status: with kidney complications Diabetes mellitus terminal operations supervisor insulin use: without terminal operations supervisor use Diabetes mellitus macular edema: Diabetic retinopathy severity: Laterality: Proliferative retinopathy type: Qualified Code(s): E11.22 - Type 2 diabetes mellitus with diabetic chronic kidney disease; N18.3 - Chronic kidney disease, stage 3 (moderate) (3) Sepsis Sepsis type: sepsis due to unspecified organism Qualified Code(s): A41.9 - Sepsis, unspecified organism (4) PNA (pneumonia) Aspiration pneumonia type: Laterality: right Lung location: lower lobe of lung Pneumonia type: due to unspecified organism Qualified Code(s): J18.1 - Lobar pneumonia, unspecified organism
--- NOTE | 2018-11-20 16:20 | Progress Note ---
DATE: 11/20/2018 Mr. Aden looks better today. States that his cough is better. I unpacked his wound and repacked it; it is sanitation truck cleaner than it was yesterday. I do not really see any leaking now. His x-ray looks about the same. There is a little bit more subcutaneous emphysema in the left upper chest which is not terribly surprising. I do not think he needs to be in the PCU anymore. He really does not need to be monitored. I would send him to a regular room and I would be aggressive with his rehabilitation.
[2018-11-20] MEDS ORDERED: METOPROLOL TARTRATE 25 MG TAB PO ONE (16:30)
[2018-11-20] MEDS: INSULIN GLARGINE SOLOSTAR 100 UNITS/ML 3 ML PEN SC SCH (20:50)
--- NOTE | 2018-11-20 21:02 | Infectious Disease Progress Nt ---
Date of Service November 20, 2018 Assessment & Plan (1) Cavitary pneumonia: Patient with cavitary pneumonia, now status post flap procedure. Patient to continue on broad-spectrum antibiotics pending operative cultures. Will follow Subjective Patient seen in follow-up for progressive cavitary pneumonia. Now status post flap procedure. Expected postop discomfort. Operative cultures are pending. Review of Systems All systems reviewed & are unremarkable except as noted in HPI & below Physical Exam 2 Vital Signs (Past 24 Hours): Last Vital Signs Temp 36.3 C L 11/20/18 19:30 Pulse 86 11/20/18 19:30 Resp 20 11/20/18 19:30 BP 99/65 L 11/20/18 19:30 Pulse Ox 96 11/20/18 19:30 Constitutional: WD/WN, vitals as above comfortable; no acute distress Eyes: PERRL, conjunctivae normal, anicteric sclerae ENMT: external ear and nose normal, oropharynx normal Neck: trachea midline, no thyromegaly neck nontender Respiratory: no respiratory distress and no dullness to percussion Auscultation: + rales (Both bases) Cardiovascular: Rate/Rhythm: regular rate and regular rhythm Heart Sounds: normal S1 and normal S2; no gallop, no murmur and no cardiac rub Vessels: normal peripheral pulses; no JVD Gastrointestinal (Abdomen): normal bowel sounds, soft, nontender, no hepatosplenomegaly Musculoskeletal: no cyanosis or clubbing, extremities motor strength 5/5 Spine: thoracic spine normal to inspection and lumbar spine normal to inspection ; no cervical spinal tenderness Skin: no rashes, warm and dry normal turgor; no lesions Neurologic: patellar DTR's 2+ bilat, sensation intact no focal motor deficits Psychiatric: A+Ox3, euthymic affect Orientation: cooperative Lymphatic: no cervical or axillary lymphadenopathy no inguinal lymphadenopathy Results & Data Laboratory Results Short CBC 11/20/18 Range/Units 05:58 WBC 10.66 (4.8-10.8) K/uL Hgb 8.9 L (14.0-18.0) g/dL Hct 28.3 L (42-52) % Plt Count 282 (130-400) K/uL BMP 11/20/18 05:58 Sodium 135 L Potassium 4.9 D Chloride 100 Carbon Dioxide 26 BUN 29 H Creatinine 1.24 Glucose 120 H Calcium 9.0 Liver Function 11/20/18 Range/Units 05:58 Total Bilirubin 0.7 (0.2-1) mg/dl AST 64 H (15-37) U/L ALT 61 (12-78) U/L Alkaline Phosphatase 180 H (45-117) U/L Albumin 2.4 L (3.4-5.0) gm/dl Diagnostic Findings Microbiology 11/19/18 14:13 Pleural Fluid Gram Stain - Final 11/19/18 14:13 Pleural Fluid Aerobic and Anaerobic Culture - Preliminary No growth to date. 11/19/18 14:45 Lung,Left Gram Stain - Final 11/19/18 14:45 Lung,Left Aerobic and Anaerobic Culture - Preliminary No growth to date. 11/19/18 14:13 Pleural Fluid Fungal Smear - Final 11/19/18 14:45 Lung,Left Fungal Smear - Final 11/11/18 16:38 Blood Blood Culture - Final No growth 11/11/18 16:38 Blood Blood Culture - Final No growth
[2018-11-21] MEDS: ACETAMINOPHEN 1,000 MG/100 ML VIAL IV SCH ×3 (01:11→17:58)
[2018-11-21] MEDS: HEPARIN 100 UNIT/ML 5ML FLUSH FLUSH SCH (03:02)
[2018-11-21 05:58] LABS: Basophils # (auto) 0.02 K/uL (0-0.2); Basophils % (auto) 0.1 %; Eosinophils # (auto) 0.02 K/uL (0-0.5); Eosinophils % (auto) 0.1 %; Hematocrit (blood only) 29.2 % (42-52); Hemoglobin 9.3 g/dL (14.0-18.0); Immature Granulocytes # (auto) 0.21 K/uL (0.00-0.02); Immature Granulocytes % (auto) 1.4 %; Lymphocytes # (auto) 0.95 K/uL (1.2-3.4); Lymphocytes % (auto) 6.4 %; Mean Corpuscular Hgb Conc 31.8 g/dL (32-36); Mean Corpuscular Volume 89.3 fL (80-100); Monocytes % (auto) 6.7 %; Neutrophils # (auto) 12.62 K/uL (1.4-6.5); Neutrophils % (auto) 85.3 %; Platelet Count 278 K/uL (130-400); RDW Coefficient of Variation 21.9 % (11.5-14.5); RDW Standard Deviation 70.7 fL (36.4-46.3); Red Blood Count 3.27 M/uL (4.7-6.1); White Blood Count 14.82 K/uL (4.8-10.8)
[2018-11-21 06:29] LABS: Anisocytosis Present; BUN Creatinine Ratio 27.7 (10-20); Calcium 8.8 mg/dl (8.5-10.1); Creatinine Clr Calc Pharmacy 38.7 ml/min; Est GFR (African American) 64.2; Est GFR (Non-African American) 55.4; Magnesium 1.9 mg/dl (1.8-2.4); Polychromasia 1+; Potassium 4.3 mmol/L (3.5-5.1)
[2018-11-21] MEDS: LACTOBACILLUS ACIDOPHILUS (FLORANEX) TAB PO SCH ×3 (07:42→17:59)
[2018-11-21] MEDS: FINASTERIDE 5 MG TAB PO SCH (07:42)
[2018-11-21] MEDS: FUROSEMIDE 20 MG TAB PO SCH (07:42)
[2018-11-21] MEDS: MAGNESIUM OXIDE 400 MG TAB PO SCH (07:42)
[2018-11-21] MEDS: CYANOCOBALAMIN 500 MCG TABLET (VITAMIN B-12) PO SCH (07:42)
[2018-11-21] MEDS: ATORVASTATIN 40 MG TAB PO SCH (07:43)
[2018-11-21] MEDS: METOPROLOL SUCC 25MG EXT REL TAB PO SCH (07:43)
[2018-11-21] MEDS: FERROUS SULFATE 325 MG TAB PO SCH ×2 (07:43→22:19)
[2018-11-21] MEDS: ASPIRIN 81 MG ECTAB PO SCH (07:43)
[2018-11-21] MEDS: CEROVITE ADV FORMULA TAB PO SCH (07:44)
[2018-11-21] MEDS: PANTOprazole 40 MG TAB PO SCH (07:44)
[2018-11-21] MEDS: INSULIN ASPART 100 UNITS/ML 3 ML PEN SC SCH ×4 (09:13→22:20)
[2018-11-21] MEDS: HEPARIN SOD 5,000 UNIT/0.5 ML VIAL SQ SCH ×2 (14:14→22:21)
--- NOTE | 2018-11-21 15:51 | Hospitalist Progress Note ---
Date of Service November 21, 2018 Assessment & Plan (1) PNA (pneumonia): RLL. Recurrent pneumonia secondary to aspiration spillover from left upper lobe empyema-corrected with Eloesser flap Completed 8-9 days of zosyn. Covered for gram negatives and anaerobes. ID consult and thoracic surgery management appreciated Repeat cxr with dense RLL consolidation but no worse than previous and no pulmonary edema on that cxr. -We will need to follow chest x-ray to resolution of infiltrate (2) Sepsis: 2nd to pneumonia - resolved. (3) Acute respiratory failure with hypoxia: Still w/ o2 requirement but seems to be more for comfort,continues to be satting 99% on 1 L today but would not allow the nurse to remove the oxygen. Secondary to acute CHF and pneumonia. He has periods of tachypnea, suspect due to anxiety. He has declined the use of low dose benzos. 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 He had been on voriconazole for this. This was stopped in the setting of shock liver during his prior hospital stay. Although LFTs have normalized ID recommends holding voriconazole for now and await intraoperative cultures-pending (5) Nonsustained ventricular tachycardia: Continues to have some runs of V. tach-today 8-11 beats, that are asymptomatic. -Need for AICD in light of depressed EF was addressed by Cardiology and feel he would not get benefit as his life expectancy is not long enough -Continue [id number] to titrate up due to hypotension (6) Severe protein-calorie malnutrition: boost, etc ongoing - due to recurrent pneumonia, etc (7) Acute on chronic systolic (congestive) heart failure: appears compensated despite his complaint of dyspnea. Weight is up 3 kg from his weight during previous hospital stay, but down 2-3kg since admission this time He lays flat in bed without difficulty. cont BB cont lasix 20mg daily -Change Toprol-XL holding parameters to lower the heart rate parameter to 95 (8) Cavitary lesion of lung: CHATA. With empyema Dr. Srivastava performed Eloesser flap on 11/19/18 to decrease the incidence of airway contamination from the CHATA cavity. Postoperative management as per thoracic surgery-doing well postoperatively -Pain control with morphine as needed -Awaiting pathology results from surgery (9) CKD stage 3 due to type 2 diabetes mellitus: creatinine stable, BMP in am -Renally dose medications when appropriate -Avoid nephrotoxins (10) DM II (diabetes mellitus, type II), controlled: had been controlled, but then BSGs trended up and insulin was increased Now with borderline hypoglycemia in the morning -continue lantus 5 units nightly and lower if needed if hypoglycemia continues -continue novolog supplemental at current dosing and again lower if needed (11) Anxiety: declines Rx for lorazepam (12) Anemia: stable at hgb 8.9, secondary to Fe-def and chronic disease -continue FeSO4 tabs (13) DVT prophylaxis: Okay to restart subcu heparin as per my discussion with thoracic surgery SCDs Dispo- high risk of arrhythmia- keep on tele, expect transition to medical floor in the next 1-2 days and possible discharge in the next 2-3 days PT/OT consults placed FULL CODE Subjective Breathing feels a little bit better today but still feels very short of breath anytime he has to urinate. He has no pain at all at the surgical site. He remains afebrile. Temp was recorded as low but this was inaccurate, I witnessed an axillary temp immediately afterwards that was normal. I discussed the case with his thoracic surgeon. I also discussed the case with infectious disease. No concern over leukocytosis at this time due to recent postoperative state Telemetry with normal sinus rhythm, has had a few 8-11 beat runs of ventricular tachycardia that are asymptomatic, otherwise normal sinus rhythm to sinus tachycardia with rates in the 90s to low 100s Review of Systems All systems reviewed & are unremarkable except as noted in HPI & below Physical Exam 2 Vital Signs (Past 24 Hours): Last Vital Signs Temp 36.3 C L 11/21/18 15:38 Pulse 90 11/21/18 15:38 Resp 20 11/21/18 15:38 BP 91/62 L 11/21/18 15:38 Pulse Ox 98 11/21/18 15:38 Constitutional: WD/WN, vitals as above (Appears chronically ill) + acute distress (Mild with pursed lip breathing, seems anxious) Eyes: PERRL, conjunctivae normal, anicteric sclerae ENMT: external ear and nose normal, oropharynx normal Neck: trachea midline, no thyromegaly Respiratory: + labored breathing Auscultation: + bronchovesicular breath sounds (Left upper lung field) Cardiovascular: RRR, no murmur, no edema Rate/Rhythm: regular rhythm and + tachycardic Heart Sounds: no murmur Vessels: dorsalis pedis pulses present Extremities: no edema Chest (Breasts): Chest: + abnormal inspection of chest (Left superior anterior chest wall with thick dressing in place, C/D/I) Gastrointestinal (Abdomen): normal bowel sounds, soft, nontender, no hepatosplenomegaly Musculoskeletal: Extremities: extremities normal to inspection; no cyanosis and no clubbing Skin: no rashes, warm and dry Neurologic: moves all extremities and awake; no focal motor deficits Psychiatric: Orientation: alert and oriented x 3 Affect: + anxious affect Results & Data Laboratory Results 11/22/18 11/22/18 11/22/18 Range/Units 01:42 01:23 01:18 POC Glucose 77 68 L* 67 L* (70-99) 11/21/18 11/21/18 11/21/18 Range/Units 20:38 16:10 11:25 POC Glucose 70 77 136 H (70-99) 11/21/18 Range/Units 07:13 POC Glucose 77 (70-99) _ (1) Anemia Anemia type: unspecified type Bone marrow failure anemia type: Chronic kidney disease stage: Folate deficiency anemia type: Hemolytic anemia type: Iron deficiency anemia type: Other causes of anemia: Vitamin B12 deficiency anemia type: Qualified Code(s): D64.9 - Anemia, unspecified (2) DM II (diabetes mellitus, type II), controlled Chronic kidney disease stage: stage 3 (moderate) Diabetes mellitus complication detail: with chronic kidney disease Diabetes mellitus complication status: with kidney complications Diabetes mellitus care home insulin use: without care home use Diabetes mellitus macular edema: Diabetic retinopathy severity: Laterality: Proliferative retinopathy type: Qualified Code(s): E11.22 - Type 2 diabetes mellitus with diabetic chronic kidney disease; N18.3 - Chronic kidney disease, stage 3 (moderate) (3) Sepsis Sepsis type: sepsis due to unspecified organism Qualified Code(s): A41.9 - Sepsis, unspecified organism (4) PNA (pneumonia) Aspiration pneumonia type: Laterality: right Lung location: lower lobe of lung Pneumonia type: due to unspecified organism Qualified Code(s): J18.1 - Lobar pneumonia, unspecified organism
--- NOTE | 2018-11-21 17:57 | Progress Note ---
DATE: 11/21/2018 Mr. Aden was seen today on 11/21/2018. He is now 48 hours status post an Eloesser flap in his upper chest. I removed his packing, inspected it, and I think this is trolley cleaner. Interestingly enough, the patient states he is really having trouble breathing. However, on room air, he is 99% sats. We will check an x-ray in the morning. I am quite pleased with the appearance of his intrathoracic cavity.
--- NOTE | 2018-11-21 21:16 | Infectious Disease Progress Nt ---
Date of Service November 21, 2018 Assessment & Plan (1) Cavitary pneumonia: Patient with cavitary pneumonia with pathologic findings consistent with diagnosis of Aspergillus infection. I have restarted patient on voriconazole. Will follow. (2) Aspergillus fumigatus: Subjective Patient seen in follow-up for progressive cavitary pneumonia. Now status post flap procedure. Expected postop discomfort. Still shortness of breath. Pathology reveals findings consistent with large fungus ball. Appearance most consistent with Aspergillus. Physical Exam 2 Vital Signs (Past 24 Hours): Last Vital Signs Temp 36.3 C L 11/21/18 19:50 Pulse 94 H 11/21/18 19:50 Resp 22 11/21/18 19:50 BP 99/70 L 11/21/18 19:50 Pulse Ox 94 11/21/18 19:50 Constitutional: WD/WN, vitals as above comfortable; no acute distress Eyes: PERRL, conjunctivae normal, anicteric sclerae ENMT: external ear and nose normal, oropharynx normal Neck: trachea midline, no thyromegaly neck nontender Respiratory: no respiratory distress and no dullness to percussion Auscultation: + rales (Both bases) Cardiovascular: Rate/Rhythm: regular rate and regular rhythm Heart Sounds: normal S1 and normal S2; no gallop, no murmur and no cardiac rub Vessels: normal peripheral pulses; no JVD Gastrointestinal (Abdomen): normal bowel sounds, soft, nontender, no hepatosplenomegaly Musculoskeletal: no cyanosis or clubbing, extremities motor strength 5/5 Spine: thoracic spine normal to inspection and lumbar spine normal to inspection ; no cervical spinal tenderness Skin: no rashes, warm and dry normal turgor; no lesions Neurologic: patellar DTR's 2+ bilat, sensation intact no focal motor deficits Psychiatric: A+Ox3, euthymic affect Orientation: cooperative Lymphatic: no cervical or axillary lymphadenopathy no inguinal lymphadenopathy Results & Data Laboratory Results Short CBC 11/21/18 Range/Units 05:28 WBC 14.82 H (4.8-10.8) K/uL Hgb 9.3 L (14.0-18.0) g/dL Hct 29.2 L (42-52) % Plt Count 278 (130-400) K/uL BMP 11/21/18 05:28 Sodium 134 L Potassium 4.3 Chloride 100 Carbon Dioxide 26 BUN 35 H Creatinine 1.26 Glucose 79 Calcium 8.8 Diagnostic Findings Microbiology 11/19/18 14:13 Pleural Fluid Gram Stain - Final 11/19/18 14:13 Pleural Fluid Aerobic and Anaerobic Culture - Preliminary No growth to date. 11/19/18 14:45 Lung,Left Gram Stain - Final 11/19/18 14:45 Lung,Left Aerobic and Anaerobic Culture - Preliminary No growth to date. 11/19/18 14:13 Pleural Fluid Acid Fast Bacilli Smear - Final 11/19/18 14:45 Lung,Left Acid Fast Bacilli Smear - Final 11/19/18 14:13 Pleural Fluid Fungal Smear - Final 11/19/18 14:45 Lung,Left Fungal Smear - Final 11/11/18 16:38 Blood Blood Culture - Final No growth 11/11/18 16:38 Blood Blood Culture - Final No growth XR chest 1V portable CLINICAL HISTORY: s/p left eloessar flap postoperative evaluation COMPARISON STUDY: 11/19/2018 FINDINGS: Slight increase in subcutaneous emphysema left hemithorax and left supraclavicular region compared to the prior exam. Unchanged opacification left apex. Diffuse infiltrate right base also unchanged. IMPRESSION: 1. Mildly progressive left upper hemithoracic subcutaneous emphysema. 2. Study is otherwise unchanged. 3. No significant pneumothorax. The above report was generated using voice recognition software. It may contain grammatical, syntax or spelling errors. Electronically signed by: Ezekiel Collier M.D. 11/20/2018 7:03 AM
[2018-11-21] MEDS: INSULIN GLARGINE SOLOSTAR 100 UNITS/ML 3 ML PEN SC SCH (22:21)
[2018-11-21] MEDS ORDERED: TEMAZEPAM 7.5 MG CAPSULE PO PRN (23:16)
[2018-11-22] MEDS: ACETAMINOPHEN 1,000 MG/100 ML VIAL IV SCH ×3 (01:17→18:33)
[2018-11-22] MEDS: CARBOHYDRATES FOR HYPOGLYCEMIA PO PRN (01:22)
[2018-11-22] MEDS: HEPARIN SOD 5,000 UNIT/0.5 ML VIAL SQ SCH ×3 (05:51→21:20)
[2018-11-22 07:38] LABS: Basophils # (auto) 0.02 K/uL (0-0.2); Basophils % (auto) 0.1 %; Hematocrit (blood only) 29.6 % (42-52); Hemoglobin 9.5 g/dL (14.0-18.0); Immature Granulocytes # (auto) 0.19 K/uL (0.00-0.02); Immature Granulocytes % (auto) 1.4 %; Lymphocytes % (auto) 4.5 %; Mean Corpuscular Hgb Conc 32.1 g/dL (32-36); Mean Corpuscular Volume 88.4 fL (80-100); Mean Platelet Volume 10.2 fL (7.4-10.4); Monocytes # (auto) 1.43 K/uL (0.11-0.59); Monocytes % (auto) 10.6 %; Neutrophils # (auto) 11.23 K/uL (1.4-6.5); Neutrophils % (auto) 83.4 %; Nucleated RBC # (auto) 0.03 K/uL (0-0); Nucleated RBC % (auto) 0.2 %; Platelet Count 248 K/uL (130-400); RDW Coefficient of Variation 22.1 % (11.5-14.5); Red Blood Count 3.35 M/uL (4.7-6.1); White Blood Count 13.47 K/uL (4.8-10.8)
[2018-11-22 08:07] LABS: Anisocytosis Present; Polychromasia 1+
[2018-11-22 08:09] LABS: BUN Creatinine Ratio 32.7 (10-20); Calcium 8.9 mg/dl (8.5-10.1); Creatinine Clr Calc Pharmacy 34.4 ml/min; Est GFR (African American) 53.8; Est GFR (Non-African American) 46.4
[2018-11-22] MEDS: FINASTERIDE 5 MG TAB PO SCH (08:30)
[2018-11-22] MEDS: METOPROLOL SUCC 25MG EXT REL TAB PO SCH (08:31)
[2018-11-22] MEDS: CEROVITE ADV FORMULA TAB PO SCH (08:31)
[2018-11-22] MEDS: PANTOprazole 40 MG TAB PO SCH (08:31)
[2018-11-22] MEDS: ATORVASTATIN 40 MG TAB PO SCH (08:31)
[2018-11-22] MEDS: CYANOCOBALAMIN 500 MCG TABLET (VITAMIN B-12) PO SCH (08:32)
[2018-11-22] MEDS: MAGNESIUM OXIDE 400 MG TAB PO SCH (08:32)
[2018-11-22] MEDS: FERROUS SULFATE 325 MG TAB PO SCH ×2 (08:33→21:11)
[2018-11-22] MEDS: FUROSEMIDE 20 MG TAB PO SCH (08:34)
[2018-11-22] MEDS: LACTOBACILLUS ACIDOPHILUS (FLORANEX) TAB PO SCH ×3 (08:34→17:15)
[2018-11-22] MEDS: ASPIRIN 81 MG ECTAB PO SCH (08:35)
[2018-11-22] MEDS: VORICONAZOLE 200 MG TABLET PO SCH ×2 (08:35→21:13)
--- NOTE | 2018-11-22 09:16 | Progress Note ---
DATE: 11/22/2018 Mr. Aden was seen today. Mr. Aden has multiple complaints. Saturations are very good. The wound is improving. Interestingly enough, we have not grown anything out which I find surprising. This may be due to the fact that he was on antibiotics. This is going to be a slow process, both with the wound with packing the flap and with the patient's improvement given his multiple comorbid conditions including his marked malnutrition, hypoproteinemia, and his poor heart. However, I do feel that if we can avoid having him have recurrent pneumonias we will help him.
[2018-11-22] MEDS ORDERED: LORazepam 0.5 MG TAB PO PRN (09:46)
[2018-11-22] MEDS: INSULIN ASPART 100 UNITS/ML 3 ML PEN SC SCH ×4 (09:47→21:17)
--- NOTE | 2018-11-22 10:07 | Hospitalist Progress Note ---
Date of Service November 22, 2018 Assessment & Plan (1) PNA (pneumonia): RLL. Recurrent pneumonia secondary to aspiration spillover from left upper lobe empyema-corrected with Eloesser flap Completed 8-9 days of zosyn. Covered for gram negatives and anaerobes. ID consult and thoracic surgery management appreciated Repeat cxr with dense RLL consolidation but no worse than previous and no pulmonary edema on that cxr. -We will need to follow chest x-ray to resolution of infiltrate (2) Sepsis: 2nd to pneumonia - resolved. (3) Acute respiratory failure with hypoxia: Still w/ o2 requirement but seems to be more for comfort,continues to be satting 99% on 1 L today but would not allow the nurse to remove the oxygen. Secondary to acute CHF and pneumonia. He has periods of tachypnea, suspect due to anxiety. 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 He had been on voriconazole for this. This was stopped in the setting of shock liver during his prior hospital stay. LFTs have normalized Pathology from thoracic surgery now with evidence of Aspergillus and fungal ball present -Infectious disease restarted the voriconazole today -Follow LFTs (5) Nonsustained ventricular tachycardia: Continued to have some runs of V. tach- 8-11 beats, that are asymptomatic. None in the last 24 hours -Need for AICD in light of depressed EF was addressed by Cardiology and feel he would not get benefit as his life expectancy is not long enough -Continue [id number] to titrate up due to hypotension -Remain on telemetry (6) Severe protein-calorie malnutrition: boost, etc ongoing - due to recurrent pneumonia, etc (7) Acute on chronic systolic (congestive) heart failure: appears compensated despite his complaint of dyspnea. Weight is up 3 kg from his weight during previous hospital stay, but down 2-3kg since admission this time He lays flat in bed without difficulty. 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 Srivastava performed Eloesser flap on 11/19/18 to decrease the incidence of airway contamination from the CHATA cavity. Postoperative management as per thoracic surgery-doing well postoperatively -Pain control with morphine as needed -Pathology results from surgery with fungal ball as above, no malignancy -Cultures pending -Follow CBC (9) CKD stage 3 due to type 2 diabetes mellitus: With GHANSHYAM Creatinine with increased today to 1.49, not retaining urine, seems dry on exam Urinalysis with 1+ protein persistently, no casts, no evidence of infection -Follow BMP in am -Renally dose medications when appropriate -Avoid nephrotoxins -Should follow proteinuria as an outpatient -Ideally should be on an ELLI inhibitor but his hypotension precludes this (10) DM II (diabetes mellitus, type II), controlled: had been controlled, but then BSGs trended up and insulin was increased Now with borderline hypoglycemia again in the morning -Decrease Lantus to 3 units nightly and discontinue if hypoglycemia continues -Decrease amount of supplemental pre-meal insulin (11) Anxiety: Now accepting of low-dose lorazepam as needed anxiety or insomnia secondary to dyspnea (12) Anemia: stable at hgb 9, secondary to Fe-def and chronic disease -continue FeSO4 tabs (13) DVT prophylaxis: Heparin SQ SCDs Dispo- high risk of arrhythmia- keep on tele, expect transition to medical floor in the next 1-2 days and possible discharge in the next 2-3 days PT/OT consults placed FULL CODE Subjective Patient feeling less short of breath today. Was very anxious last night about his breathing and finally received temazepam but it made him feel very confused although he did sleep. No pain at the surgical site. Reports having to strain to get his urine out and only urinating 100-200mls at a time as per nursing. Postvoid residual however is normal. No diarrhea, no abd pain. Mounika po. Telemetry with normal sinus rhythm, PVCs but no further runs of ventricular tachycardia, rates in the 90s Review of Systems All systems reviewed & are unremarkable except as noted in HPI & below Physical Exam 2 Vital Signs (Past 24 Hours): Last Vital Signs Temp 36.6 C 11/22/18 07:25 Pulse 96 H 11/22/18 07:25 Resp 16 11/22/18 07:25 BP 104/71 11/22/18 07:25 Pulse Ox 100 11/22/18 04:00 Constitutional: WD/WN, vitals as above (Appears chronically ill) no acute distress Eyes: PERRL, conjunctivae normal, anicteric sclerae Neck: trachea midline, no thyromegaly Respiratory: Auscultation: + bronchovesicular breath sounds (Left upper lung field) Cardiovascular: RRR, no murmur, no edema Extremities: no edema Chest (Breasts): Chest: + abnormal inspection of chest (Left superior anterior chest wall with thick dressing in place, C/D/I) Gastrointestinal (Abdomen): normal bowel sounds, soft, nontender, no hepatosplenomegaly Musculoskeletal: Extremities: extremities normal to inspection; no cyanosis and no clubbing Skin: no rashes, warm and dry Neurologic: moves all extremities and awake; no focal motor deficits Psychiatric: Orientation: alert and oriented x 3 Affect: + anxious affect Results & Data Laboratory Results 11/22/18 11/22/18 11/22/18 Range/Units 11:43 10:40 07:34 WBC (4.8-10.8) K/uL RBC (4.7-6.1) M/uL Hgb (14.0-18.0) g/dL Hct (42-52) % MCV (80-100) fL MCH (25-34) pg MCHC (32-36) g/dL RDW Std Deviation (36.4-46.3) fL RDW Coeff of Molly (11.5-14.5) % Plt Count (130-400) K/uL MPV (7.4-10.4) fL Immature Gran % (Auto) % Neut % (Auto) % Lymph % (Auto) % [place] % (Auto) % Eos % (Auto) % Baso % (Auto) % Immature Gran # (Auto) (0.00-0.02) K/uL Neut # (Auto) (1.4-6.5) K/uL Lymph # (Auto) (1.2-3.4) K/uL [place] # (Auto) (0.11-0.59) K/uL Eos # (Auto) (0-0.5) K/uL Baso # (Auto) (0-0.2) K/uL Absolute Nucleated RBC (0-0) K/uL Nucleated RBC % (auto) % Polychromasia Anisocytosis Sodium (136-145) mmol/L Potassium (3.5-5.1) mmol/L Chloride (98-107) mmol/L Carbon Dioxide (21-32) mmol/L Anion Gap (3-11) BUN (7-18) mg/dl Creatinine (0.6-1.4) mg/dl Est Cr Clr Drug Dosing ml/min Est GFR ( Amer) Est GFR (Non-Af Amer) BUN/Creatinine Ratio (10-20) Glucose (70-99) mg/dl POC Glucose 86 90 (70-99) Calcium (8.5-10.1) mg/dl Urine Color Yellow Urine Appearance Cloudy H (Clear) Urine pH 5.0 (4.5-7.5) Ur Specific [place] 1.025 (1.000-1.030) Urine Protein 1+ H (Negative) Urine Glucose (UA) Negative (Negative) Urine Ketones Trace H (Negative) Urine Blood Negative (Negative) Urine Nitrite Negative (Negative) Urine Bilirubin Negative (Negative) Urine Urobilinogen Negative (Negative) Ur Leukocyte Esterase Negative (Negative) Urine WBC (Auto) 1-5 (0-5) /hpf Urine RBC (Auto) 0-4 (0-4) /hpf U Hyaline Cast (Auto) 5-10 H (0-5) /lpf U Epithel Cells (Auto) 20-30 H (0-5) /lpf Urine Bacteria (Auto) Negative (Negative) 11/22/18 11/22/18 11/22/18 Range/Units 07:27 07:27 01:42 WBC 13.47 H (4.8-10.8) K/uL RBC 3.35 L (4.7-6.1) M/uL Hgb 9.5 L (14.0-18.0) g/dL Hct 29.6 L (42-52) % MCV 88.4 (80-100) fL MCH 28.4 (25-34) pg MCHC 32.1 (32-36) g/dL RDW Std Deviation 70.0 H (36.4-46.3) fL RDW Coeff of Molly 22.1 H (11.5-14.5) % Plt Count 248 (130-400) K/uL MPV 10.2 (7.4-10.4) fL Immature Gran % (Auto) 1.4 % Neut % (Auto) 83.4 % Lymph % (Auto) 4.5 % [place] % (Auto) 10.6 % Eos % (Auto) 0.0 % Baso % (Auto) 0.1 % Immature Gran # (Auto) 0.19 H (0.00-0.02) K/uL Neut # (Auto) 11.23 H (1.4-6.5) K/uL Lymph # (Auto) 0.60 L (1.2-3.4) K/uL [place] # (Auto) 1.43 H (0.11-0.59) K/uL Eos # (Auto) 0.00 (0-0.5) K/uL Baso # (Auto) 0.02 (0-0.2) K/uL Absolute Nucleated RBC 0.03 H (0-0) K/uL Nucleated RBC % (auto) 0.2 % Polychromasia 1+ Anisocytosis Present Sodium 131 L (136-145) mmol/L Potassium 5.0 D (3.5-5.1) mmol/L Chloride 97 L (98-107) mmol/L Carbon Dioxide 27 (21-32) mmol/L Anion Gap 7.0 (3-11) BUN 48 H (7-18) mg/dl Creatinine 1.46 H (0.6-1.4) mg/dl Est Cr Clr Drug Dosing 34.4 ml/min Est GFR ( Amer) 53.8 Est GFR (Non-Af Amer) 46.4 BUN/Creatinine Ratio 32.7 H (10-20) Glucose 77 (70-99) mg/dl POC Glucose 77 (70-99) Calcium 8.9 (8.5-10.1) mg/dl Urine Color Urine Appearance (Clear) Urine pH (4.5-7.5) Ur Specific [place] (1.000-1.030) Urine Protein (Negative) Urine Glucose (UA) (Negative) Urine Ketones (Negative) Urine Blood (Negative) Urine Nitrite (Negative) Urine Bilirubin (Negative) Urine Urobilinogen (Negative) Ur Leukocyte Esterase (Negative) Urine WBC (Auto) (0-5) /hpf Urine RBC (Auto) (0-4) /hpf U Hyaline Cast (Auto) (0-5) /lpf U Epithel Cells (Auto) (0-5) /lpf Urine Bacteria (Auto) (Negative) 11/22/18 11/22/18 11/21/18 Range/Units 01:23 01:18 20:38 WBC (4.8-10.8) K/uL RBC (4.7-6.1) M/uL Hgb (14.0-18.0) g/dL Hct (42-52) % MCV (80-100) fL MCH (25-34) pg MCHC (32-36) g/dL RDW Std Deviation (36.4-46.3) fL RDW Coeff of Molly (11.5-14.5) % Plt Count (130-400) K/uL MPV (7.4-10.4) fL Immature Gran % (Auto) % Neut % (Auto) % Lymph % (Auto) % [place] % (Auto) % Eos % (Auto) % Baso % (Auto) % Immature Gran # (Auto) (0.00-0.02) K/uL Neut # (Auto) (1.4-6.5) K/uL Lymph # (Auto) (1.2-3.4) K/uL [place] # (Auto) (0.11-0.59) K/uL Eos # (Auto) (0-0.5) K/uL Baso # (Auto) (0-0.2) K/uL Absolute Nucleated RBC (0-0) K/uL Nucleated RBC % (auto) % Polychromasia Anisocytosis Sodium (136-145) mmol/L Potassium (3.5-5.1) mmol/L Chloride (98-107) mmol/L Carbon Dioxide (21-32) mmol/L Anion Gap (3-11) BUN (7-18) mg/dl Creatinine (0.6-1.4) mg/dl Est Cr Clr Drug Dosing ml/min Est GFR ( Amer) Est GFR (Non-Af Amer) BUN/Creatinine Ratio (10-20) Glucose (70-99) mg/dl POC Glucose 68 L* 67 L* 70 (70-99) Calcium (8.5-10.1) mg/dl Urine Color Urine Appearance (Clear) Urine pH (4.5-7.5) Ur Specific [place] (1.000-1.030) Urine Protein (Negative) Urine Glucose (UA) (Negative) Urine Ketones (Negative) Urine Blood (Negative) Urine Nitrite (Negative) Urine Bilirubin (Negative) Urine Urobilinogen (Negative) Ur Leukocyte Esterase (Negative) Urine WBC (Auto) (0-5) /hpf Urine RBC (Auto) (0-4) /hpf U Hyaline Cast (Auto) (0-5) /lpf U Epithel Cells (Auto) (0-5) /lpf Urine Bacteria (Auto) (Negative) 11/21/18 Range/Units 16:10 WBC (4.8-10.8) K/uL RBC (4.7-6.1) M/uL Hgb (14.0-18.0) g/dL Hct (42-52) % MCV (80-100) fL MCH (25-34) pg MCHC (32-36) g/dL RDW Std Deviation (36.4-46.3) fL RDW Coeff of Molly (11.5-14.5) % Plt Count (130-400) K/uL MPV (7.4-10.4) fL Immature Gran % (Auto) % Neut % (Auto) % Lymph % (Auto) % [place] % (Auto) % Eos % (Auto) % Baso % (Auto) % Immature Gran # (Auto) (0.00-0.02) K/uL Neut # (Auto) (1.4-6.5) K/uL Lymph # (Auto) (1.2-3.4) K/uL [place] # (Auto) (0.11-0.59) K/uL Eos # (Auto) (0-0.5) K/uL Baso # (Auto) (0-0.2) K/uL Absolute Nucleated RBC (0-0) K/uL Nucleated RBC % (auto) % Polychromasia Anisocytosis Sodium (136-145) mmol/L Potassium (3.5-5.1) mmol/L Chloride (98-107) mmol/L Carbon Dioxide (21-32) mmol/L Anion Gap (3-11) BUN (7-18) mg/dl Creatinine (0.6-1.4) mg/dl Est Cr Clr Drug Dosing ml/min Est GFR ( Amer) Est GFR (Non-Af Amer) BUN/Creatinine Ratio (10-20) Glucose (70-99) mg/dl POC Glucose 77 (70-99) Calcium (8.5-10.1) mg/dl Urine Color Urine Appearance (Clear) Urine pH (4.5-7.5) Ur Specific [place] (1.000-1.030) Urine Protein (Negative) Urine Glucose (UA) (Negative) Urine Ketones (Negative) Urine Blood (Negative) Urine Nitrite (Negative) Urine Bilirubin (Negative) Urine Urobilinogen (Negative) Ur Leukocyte Esterase (Negative) Urine WBC (Auto) (0-5) /hpf Urine RBC (Auto) (0-4) /hpf U Hyaline Cast (Auto) (0-5) /lpf U Epithel Cells (Auto) (0-5) /lpf Urine Bacteria (Auto) (Negative) _ (1) Anemia Anemia type: unspecified type Bone marrow failure anemia type: Chronic kidney disease stage: Folate deficiency anemia type: Hemolytic anemia type: Iron deficiency anemia type: Other causes of anemia: Vitamin B12 deficiency anemia type: Qualified Code(s): D64.9 - Anemia, unspecified (2) DM II (diabetes mellitus, type II), controlled Chronic kidney disease stage: stage 3 (moderate) Diabetes mellitus complication detail: with chronic kidney disease Diabetes mellitus complication status: with kidney complications Diabetes mellitus longterm insulin use: without terminal gauger use Diabetes mellitus macular edema: Diabetic retinopathy severity: Laterality: Proliferative retinopathy type: Qualified Code(s): E11.22 - Type 2 diabetes mellitus with diabetic chronic kidney disease; N18.3 - Chronic kidney disease, stage 3 (moderate) (3) Sepsis Sepsis type: sepsis due to unspecified organism Qualified Code(s): A41.9 - Sepsis, unspecified organism (4) PNA (pneumonia) Aspiration pneumonia type: Laterality: right Lung location: lower lobe of lung Pneumonia type: due to unspecified organism Qualified Code(s): J18.1 - Lobar pneumonia, unspecified organism
[2018-11-22 11:14] LABS: Appearance Urine Cloudy (Clear); Bacteria Urine Automated Negative (Negative); Bilirubin Urine Negative (Negative); Blood Urine Negative (Negative); Color Urine Yellow; Epithelial Cell Urine Auto 20-30 /lpf (0-5); Glucose Urine UA Negative (Negative); Ketones Urine Trace (Negative); Leukocyte Esterase Urine Negative (Negative); Nitrite Urine Negative (Negative); Protein Urine 1+ (Negative); RBC Urine Automated 0-4 /hpf (0-4); Specific Gravity Urine 1.025 (1.000-1.030); Urobilinogen Urine Negative (Negative)
--- NOTE | 2018-11-22 16:44 | Cardiology Progress Note ---
Date of Service November 22, 2018 Assessment & Plan (1) Acute respiratory failure with hypoxia: He has a subjective sense of dyspnea that does not correlate very well with any evidence of hypoxia. I think overall he is quite stable. I would agree with holding Lasix given this sense that he has some element of hypovolemia. No evidence of peripheral edema. I do not think he has pulmonary vascular congestion currently. (2) Ischemic cardiomyopathy: Patient is known to have severely reduced LV systolic function. In the past he has been on more aggressive medical regimen but this was reduced recently due to his relative hypotension. Currently continues exclusively on beta-blockade. Blood pressures are stable. While he technically qualifies for an ICD as primary prevention against sudden cardiac , I think his other comorbidities preclude implant at this point. The only benefit obtained from an ICD in this setting require a (3) CAD (coronary artery disease): No current symptoms of angina or coronary insufficiency. At the time of his last admission he did undergo coronary angiography which revealed chronic disease but no acute coronary syndrome. He will continue on a daily aspirin and beta-blockade. No recent symptoms of chest discomfort. Subjective This afternoon the patient claims to be feeling well. He was somewhat tired. He also had some difficulty sleeping last night due to a sensation of breathing difficulty. He attempted to lie flat in general can lie flat without significant dyspnea. He appears to have �spells� where he feels somewhat short of breath. His appetite remains poor. He has ambulated very little. Physical Exam 2 Vital Signs (Past 24 Hours): Last Vital Signs Temp 36.4 C L 11/22/18 15:19 Pulse 88 11/22/18 15:19 Resp 19 11/22/18 15:19 BP 96/64 L 11/22/18 15:19 Pulse Ox 100 11/22/18 15:19 Physical Exam: The patient is alert and oriented. Mood and affect appeared normal. He answered all questions appropriately. Chronically ill HEENT: Pupils are equal and reactive to light and accommodation. Extraocular movements are intact. The sclerae are anicteric. Neuro: Cranial nerves intact Lungs: Crackles in both lung watts. Reduced excursion overall. No expiratory wheezing. Cardiac: Heart demonstrates a regular rate and rhythm. Normal S1 and S2. Pulses: The patient has palpable radial pulses bilaterally that are equal in intensity Extremities: There was no evidence of hypoperfusion. There is no cyanosis or clubbing. There is no edema. Skin: I did not appreciate any rashes on examination today. He has a lot of ecchymosis Results & Data Laboratory Results Abnormal Lab Results 11/21/18 11/22/18 11/22/18 20:38 01:18 01:23 WBC RBC Hgb Hct MCV MCH MCHC RDW Std Deviation RDW Coeff of Molly Plt Count MPV Immature Gran % (Auto) Neut % (Auto) Lymph % (Auto) [place] % (Auto) Eos % (Auto) Baso % (Auto) Immature Gran # (Auto) Neut # (Auto) Lymph # (Auto) [place] # (Auto) Eos # (Auto) Baso # (Auto) Absolute Nucleated RBC Nucleated RBC % (auto) Polychromasia Anisocytosis Sodium Potassium Chloride Carbon Dioxide Anion Gap BUN Creatinine Est Cr Clr Drug Dosing Est GFR ( Amer) Est GFR (Non-Af Amer) BUN/Creatinine Ratio Glucose POC Glucose 70 67 L* 68 L* Calcium Urine Color Urine Appearance Urine pH Ur Specific [place] Urine Protein Urine Glucose (UA) Urine Ketones Urine Blood Urine Nitrite Urine Bilirubin Urine Urobilinogen Ur Leukocyte Esterase Urine WBC (Auto) Urine RBC (Auto) U Hyaline Cast (Auto) U Epithel Cells (Auto) Urine Bacteria (Auto) 11/22/18 11/22/18 11/22/18 01:42 07:27 07:27 WBC 13.47 H RBC 3.35 L Hgb 9.5 L Hct 29.6 L MCV 88.4 MCH 28.4 MCHC 32.1 RDW Std Deviation 70.0 H RDW Coeff of Molly 22.1 H Plt Count 248 MPV 10.2 Immature Gran % (Auto) 1.4 Neut % (Auto) 83.4 Lymph % (Auto) 4.5 [place] % (Auto) 10.6 Eos % (Auto) 0.0 Baso % (Auto) 0.1 Immature Gran # (Auto) 0.19 H Neut # (Auto) 11.23 H Lymph # (Auto) 0.60 L [place] # (Auto) 1.43 H Eos # (Auto) 0.00 Baso # (Auto) 0.02 Absolute Nucleated RBC 0.03 H Nucleated RBC % (auto) 0.2 Polychromasia 1+ Anisocytosis Present Sodium 131 L Potassium 5.0 D Chloride 97 L Carbon Dioxide 27 Anion Gap 7.0 BUN 48 H Creatinine 1.46 H Est Cr Clr Drug Dosing 34.4 Est GFR ( Amer) 53.8 Est GFR (Non-Af Amer) 46.4 BUN/Creatinine Ratio 32.7 H Glucose 77 POC Glucose 77 Calcium 8.9 Urine Color Urine Appearance Urine pH Ur Specific [place] Urine Protein Urine Glucose (UA) Urine Ketones Urine Blood Urine Nitrite Urine Bilirubin Urine Urobilinogen Ur Leukocyte Esterase Urine WBC (Auto) Urine RBC (Auto) U Hyaline Cast (Auto) U Epithel Cells (Auto) Urine Bacteria (Auto) 11/22/18 11/22/18 11/22/18 07:34 10:40 11:43 WBC RBC Hgb Hct MCV MCH MCHC RDW Std Deviation RDW Coeff of Molly Plt Count MPV Immature Gran % (Auto) Neut % (Auto) Lymph % (Auto) [place] % (Auto) Eos % (Auto) Baso % (Auto) Immature Gran # (Auto) Neut # (Auto) Lymph # (Auto) [place] # (Auto) Eos # (Auto) Baso # (Auto) Absolute Nucleated RBC Nucleated RBC % (auto) Polychromasia Anisocytosis Sodium Potassium Chloride Carbon Dioxide Anion Gap BUN Creatinine Est Cr Clr Drug Dosing Est GFR ( Amer) Est GFR (Non-Af Amer) BUN/Creatinine Ratio Glucose POC Glucose 90 86 Calcium Urine Color Yellow Urine Appearance Cloudy H Urine pH 5.0 Ur Specific [place] 1.025 Urine Protein 1+ H Urine Glucose (UA) Negative Urine Ketones Trace H Urine Blood Negative Urine Nitrite Negative Urine Bilirubin Negative Urine Urobilinogen Negative Ur Leukocyte Esterase Negative Urine WBC (Auto) 1-5 Urine RBC (Auto) 0-4 U Hyaline Cast (Auto) 5-10 H U Epithel Cells (Auto) 20-30 H Urine Bacteria (Auto) Negative 11/22/18 16:02 WBC RBC Hgb Hct MCV MCH MCHC RDW Std Deviation RDW Coeff of Molly Plt Count MPV Immature Gran % (Auto) Neut % (Auto) Lymph % (Auto) [place] % (Auto) Eos % (Auto) Baso % (Auto) Immature Gran # (Auto) Neut # (Auto) Lymph # (Auto) [place] # (Auto) Eos # (Auto) Baso # (Auto) Absolute Nucleated RBC Nucleated RBC % (auto) Polychromasia Anisocytosis Sodium Potassium Chloride Carbon Dioxide Anion Gap BUN Creatinine Est Cr Clr Drug Dosing Est GFR ( Amer) Est GFR (Non-Af Amer) BUN/Creatinine Ratio Glucose POC Glucose 126 H Calcium Urine Color Urine Appearance Urine pH Ur Specific [place] Urine Protein Urine Glucose (UA) Urine Ketones Urine Blood Urine Nitrite Urine Bilirubin Urine Urobilinogen Ur Leukocyte Esterase Urine WBC (Auto) Urine RBC (Auto) U Hyaline Cast (Auto) U Epithel Cells (Auto) Urine Bacteria (Auto) _ (1) CAD (coronary artery disease) Coronary Disease-Associated Artery/Lesion type: [place] artery [place] vs. transplanted heart: [place] heart Associated angina: without angina Qualified Code(s): I25.10 - Atherosclerotic heart disease of [place] coronary artery without angina pectoris
--- NOTE | 2018-11-22 20:38 | Infectious Disease Progress Nt ---
Date of Service November 22, 2018 Assessment & Plan (1) Cavitary pneumonia: Patient with cavitary pneumonia with pathologic findings consistent with diagnosis of Aspergillus infection. Voriconazole to be continued with careful follow-up of liver enzymes. Will follow. (2) Aspergillus fumigatus: Subjective Patient seen in follow-up for progressive cavitary pneumonia. Now status post flap procedure. Expected postop discomfort. Still shortness of breath. Pathology reveals findings consistent with large fungus ball. Appearance most consistent with Aspergillus. Review of Systems All systems reviewed & are unremarkable except as noted in HPI & below Physical Exam 2 Vital Signs (Past 24 Hours): Last Vital Signs Temp 36.4 C L 11/22/18 19:21 Pulse 89 11/22/18 19:21 Resp 18 11/22/18 19:21 BP 101/69 11/22/18 19:21 Pulse Ox 96 11/22/18 19:21 Constitutional: WD/WN, vitals as above comfortable; no acute distress Eyes: PERRL, conjunctivae normal, anicteric sclerae ENMT: external ear and nose normal, oropharynx normal Neck: trachea midline, no thyromegaly neck nontender Respiratory: no respiratory distress and no dullness to percussion Auscultation: + rales (Both bases) Cardiovascular: Rate/Rhythm: regular rate and regular rhythm Heart Sounds: normal S1 and normal S2; no gallop, no murmur and no cardiac rub Vessels: normal peripheral pulses; no JVD Gastrointestinal (Abdomen): normal bowel sounds, soft, nontender, no hepatosplenomegaly Musculoskeletal: no cyanosis or clubbing, extremities motor strength 5/5 Spine: thoracic spine normal to inspection and lumbar spine normal to inspection ; no cervical spinal tenderness Skin: no rashes, warm and dry normal turgor; no lesions Neurologic: patellar DTR's 2+ bilat, sensation intact no focal motor deficits Psychiatric: A+Ox3, euthymic affect Orientation: cooperative Lymphatic: no cervical or axillary lymphadenopathy no inguinal lymphadenopathy Results & Data Laboratory Results Short CBC 11/22/18 Range/Units 07:27 WBC 13.47 H (4.8-10.8) K/uL Hgb 9.5 L (14.0-18.0) g/dL Hct 29.6 L (42-52) % Plt Count 248 (130-400) K/uL BMP 11/22/18 07:27 Sodium 131 L Potassium 5.0 D Chloride 97 L Carbon Dioxide 27 BUN 48 H Creatinine 1.46 H Glucose 77 Calcium 8.9 Urine 11/22/18 Range/Units 10:40 Urine Color Yellow Urine Appearance Cloudy H (Clear) Urine pH 5.0 (4.5-7.5) Ur Specific [place] 1.025 (1.000-1.030) Urine Protein 1+ H (Negative) Urine Glucose (UA) Negative (Negative) Diagnostic Findings Microbiology 11/19/18 14:13 Pleural Fluid Gram Stain - Final 11/19/18 14:13 Pleural Fluid Aerobic and Anaerobic Culture - Preliminary No growth to date. 11/19/18 14:45 Lung,Left Gram Stain - Final 11/19/18 14:45 Lung,Left Aerobic and Anaerobic Culture - Preliminary No growth to date. 11/19/18 14:13 Pleural Fluid Acid Fast Bacilli Smear - Final 11/19/18 14:45 Lung,Left Acid Fast Bacilli Smear - Final 11/19/18 14:13 Pleural Fluid Fungal Smear - Final 11/19/18 14:45 Lung,Left Fungal Smear - Final 11/11/18 16:38 Blood Blood Culture - Final No growth 11/11/18 16:38 Blood Blood Culture - Final No growth
[2018-11-22] MEDS: INSULIN GLARGINE SOLOSTAR 100 UNITS/ML 3 ML PEN SC SCH (21:15)
[2018-11-23] MEDS: ACETAMINOPHEN 1,000 MG/100 ML VIAL IV SCH (01:18)
[2018-11-23] MEDS: HEPARIN SOD 5,000 UNIT/0.5 ML VIAL SQ SCH (05:20)
[2018-11-23 05:54] LABS: Basophils # (auto) 0.02 K/uL (0-0.2); Basophils % (auto) 0.2 %; Eosinophils # (auto) 0.01 K/uL (0-0.5); Eosinophils % (auto) 0.1 %; Hematocrit (blood only) 28.8 % (42-52); Hemoglobin 9.2 g/dL (14.0-18.0); Immature Granulocytes # (auto) 0.24 K/uL (0.00-0.02); Immature Granulocytes % (auto) 1.9 %; Lymphocytes # (auto) 0.58 K/uL (1.2-3.4); Lymphocytes % (auto) 4.6 %; Mean Corpuscular Hgb Conc 31.9 g/dL (32-36); Mean Corpuscular Volume 89.2 fL (80-100); Mean Platelet Volume 10.7 fL (7.4-10.4); Monocytes # (auto) 1.58 K/uL (0.11-0.59); Monocytes % (auto) 12.6 %; Neutrophils # (auto) 10.13 K/uL (1.4-6.5); Neutrophils % (auto) 80.6 %; Nucleated RBC # (auto) 0.04 K/uL (0-0); Nucleated RBC % (auto) 0.3 %; Platelet Count 245 K/uL (130-400); RDW Coefficient of Variation 22.8 % (11.5-14.5); Red Blood Count 3.23 M/uL (4.7-6.1); White Blood Count 12.56 K/uL (4.8-10.8)
[2018-11-23 06:26] LABS: Anisocytosis Present; Polychromasia 1+
[2018-11-23 06:29] LABS: Albumin Level 2.2 gm/dl (3.4-5.0); BUN Creatinine Ratio 29.4 (10-20); Bilirubin Direct 0.9 mg/dl (0-0.2); Calcium 8.4 mg/dl (8.5-10.1); Creatinine Clr Calc Pharmacy 27.9 ml/min; Est GFR (African American) 41.7; Potassium 4.5 mmol/L (3.5-5.1)
[2018-11-23 06:36] LABS: Bilirubin,Total 1.6 mg/dl (0.2-1); Total Protein 6.1 gm/dl (6.4-8.2)
--- NOTE | 2018-11-23 07:18 | XRay Report ---
XR chest 1V portable CLINICAL HISTORY: cavitary lung lesion dyspnea COMPARISON STUDY: 11/20/2017 FINDINGS: Slight increase in subcutaneous emphysema left hemithorax and left supraclavicular region. Unchanged appearance to the lungs which has been described multiple times previously. No evidence pne umothorax. IMPRESSION: Slight increase in chest wall subcutaneous emphysematous change. Study is otherwise stab le. No evidence pneumothorax. The above report was generated using voice recognition software. It may contain grammatical, syntax or spelling errors. Electronically signed by: Ezekiel Collier M.D. 11/23/2018 7:17 AM
[2018-11-23] MEDS: LACTOBACILLUS ACIDOPHILUS (FLORANEX) TAB PO SCH ×3 (07:55→21:13)
[2018-11-23] MEDS: METOPROLOL SUCC 25MG EXT REL TAB PO SCH (07:56)
[2018-11-23] MEDS: PANTOprazole 40 MG TAB PO SCH (07:57)
[2018-11-23] MEDS: CEROVITE ADV FORMULA TAB PO SCH (07:57)
[2018-11-23] MEDS: FERROUS SULFATE 325 MG TAB PO SCH ×2 (07:58→21:11)
[2018-11-23] MEDS: FINASTERIDE 5 MG TAB PO SCH (07:58)
[2018-11-23] MEDS: VORICONAZOLE 200 MG TABLET PO SCH (07:59)
[2018-11-23] MEDS: MAGNESIUM OXIDE 400 MG TAB PO SCH (08:00)
[2018-11-23] MEDS: ASPIRIN 81 MG ECTAB PO SCH (08:00)
[2018-11-23] MEDS: ATORVASTATIN 40 MG TAB PO SCH (08:03)
[2018-11-23] MEDS: CYANOCOBALAMIN 500 MCG TABLET (VITAMIN B-12) PO SCH (08:03)
[2018-11-23] MEDS: INSULIN ASPART 100 UNITS/ML 3 ML PEN SC SCH ×4 (08:08→21:19)
--- NOTE | 2018-11-23 10:11 | Cardiology Progress Note ---
Date of Service November 23, 2018 Assessment & Plan (1) Acute respiratory failure with hypoxia: His breathing appears to be quite stable. I do not believe he suffers from pulmonary edema currently. I think a lot of his breathing difficulty is related both to lung mechanics as well as underlying primary lung disease. (2) Ischemic cardiomyopathy: He has been maintained on his beta-blockade. He was taken daily diuretic but this has been held due to declining renal function and concerns over hypovolemia. His renal function is slightly worse to day. I would agree with continuing to hold his diuretic and possibly consider mild volume resuscitation. (3) CAD (coronary artery disease): No current symptoms of angina or coronary insufficiency. At the time of his last admission he did undergo coronary angiography which revealed chronic disease but no acute coronary syndrome. He will continue on a daily aspirin and beta-blockade. No recent symptoms of chest discomfort. Supervising Physician Co-Signing Physician Notes I will be out of the hospital for the next 2 days. Any questions regarding his cardiac care can be addressed to Dr. Paz who will be available over the weekend. Subjective This morning the patient claims to be feeling tired. However, he did eat all of his breakfast. He did ambulate somewhat yesterday but was weak and short of breath. He denies any dyspnea while lying flat in bed. He appears to be quite restless overnight. Physical Exam 2 Vital Signs (Past 24 Hours): Last Vital Signs Temp 36.4 C L 11/23/18 08:04 Pulse 88 11/23/18 08:04 Resp 16 11/23/18 08:04 BP 99/67 L 11/23/18 08:04 Pulse Ox 96 11/23/18 08:04 Physical Exam: The patient is alert and oriented. Mood and affect appeared normal. He answered all questions appropriately. HEENT: Pupils are equal and reactive to light and accommodation. Extraocular movements are intact. The sclerae are anicteric. Neuro: Cranial nerves intact Lungs: Crackles through both lung watts, mostly at the base. No expiratory wheezing. Chest: Wound packed in left upper chest area. Cardiac: Heart demonstrates a regular rate and rhythm with occasional ectopy. Normal S1 and S2. Pulses: The patient has palpable radial pulses bilaterally that are equal in intensity Extremities: There was no evidence of hypoperfusion. There is no cyanosis or clubbing. There is no edema. Skin: I did not appreciate any rashes on examination today. Results & Data Laboratory Results Abnormal Lab Results 11/22/18 11/22/18 11/22/18 10:40 11:43 16:02 WBC RBC Hgb Hct MCV MCH MCHC RDW Std Deviation RDW Coeff of Molly Plt Count MPV Immature Gran % (Auto) Neut % (Auto) Lymph % (Auto) Clinch % (Auto) Eos % (Auto) Baso % (Auto) Immature Gran # (Auto) Neut # (Auto) Lymph # (Auto) Clinch # (Auto) Eos # (Auto) Baso # (Auto) Absolute Nucleated RBC Nucleated RBC % (auto) Polychromasia Anisocytosis Sodium Potassium Chloride Carbon Dioxide Anion Gap BUN Creatinine Est Cr Clr Drug Dosing Est GFR ( Amer) Est GFR (Non-Af Amer) BUN/Creatinine Ratio Glucose POC Glucose 86 126 H Calcium Magnesium Total Bilirubin Direct Bilirubin AST ALT Alkaline Phosphatase Total Protein Albumin Urine Color Yellow Urine Appearance Cloudy H Urine pH 5.0 Ur Specific [place] 1.025 Urine Protein 1+ H Urine Glucose (UA) Negative Urine Ketones Trace H Urine Blood Negative Urine Nitrite Negative Urine Bilirubin Negative Urine Urobilinogen Negative Ur Leukocyte Esterase Negative Urine WBC (Auto) 1-5 Urine RBC (Auto) 0-4 U Hyaline Cast (Auto) 5-10 H U Epithel Cells (Auto) 20-30 H Urine Bacteria (Auto) Negative Acetaminophen 11/22/18 11/23/18 11/23/18 20:07 05:30 05:30 WBC 12.56 H RBC 3.23 L Hgb 9.2 L Hct 28.8 L MCV 89.2 MCH 28.5 MCHC 31.9 L RDW Std Deviation 73.0 H RDW Coeff of Molly 22.8 H Plt Count 245 MPV 10.7 H Immature Gran % (Auto) 1.9 Neut % (Auto) 80.6 Lymph % (Auto) 4.6 Clinch % (Auto) 12.6 Eos % (Auto) 0.1 Baso % (Auto) 0.2 Immature Gran # (Auto) 0.24 H Neut # (Auto) 10.13 H Lymph # (Auto) 0.58 L Clinch # (Auto) 1.58 H Eos # (Auto) 0.01 Baso # (Auto) 0.02 Absolute Nucleated RBC 0.04 H Nucleated RBC % (auto) 0.3 Polychromasia 1+ Anisocytosis Present Sodium 131 L Potassium 4.5 Chloride 95 L Carbon Dioxide 25 Anion Gap 10.0 BUN 53 H Creatinine 1.80 H D Est Cr Clr Drug Dosing 27.9 Est GFR ( Amer) 41.7 Est GFR (Non-Af Amer) 36.0 BUN/Creatinine Ratio 29.4 H Glucose 136 H POC Glucose 160 H Calcium 8.4 L Magnesium 2.0 Total Bilirubin 1.6 H Direct Bilirubin 0.9 H AST 1160 H ALT 953 H Alkaline Phosphatase 810 H Total Protein 6.1 L Albumin 2.2 L Urine Color Urine Appearance Urine pH Ur Specific [place] Urine Protein Urine Glucose (UA) Urine Ketones Urine Blood Urine Nitrite Urine Bilirubin Urine Urobilinogen Ur Leukocyte Esterase Urine WBC (Auto) Urine RBC (Auto) U Hyaline Cast (Auto) U Epithel Cells (Auto) Urine Bacteria (Auto) Acetaminophen 11/23/18 11/23/18 07:19 09:09 WBC RBC Hgb Hct MCV MCH MCHC RDW Std Deviation RDW Coeff of Molly Plt Count MPV Immature Gran % (Auto) Neut % (Auto) Lymph % (Auto) Clinch % (Auto) Eos % (Auto) Baso % (Auto) Immature Gran # (Auto) Neut # (Auto) Lymph # (Auto) Clinch # (Auto) Eos # (Auto) Baso # (Auto) Absolute Nucleated RBC Nucleated RBC % (auto) Polychromasia Anisocytosis Sodium Potassium Chloride Carbon Dioxide Anion Gap BUN Creatinine Est Cr Clr Drug Dosing Est GFR ( Amer) Est GFR (Non-Af Amer) BUN/Creatinine Ratio Glucose POC Glucose 144 H Calcium Magnesium Total Bilirubin Direct Bilirubin AST ALT Alkaline Phosphatase Total Protein Albumin Urine Color Urine Appearance Urine pH Ur Specific [place] Urine Protein Urine Glucose (UA) Urine Ketones Urine Blood Urine Nitrite Urine Bilirubin Urine Urobilinogen Ur Leukocyte Esterase Urine WBC (Auto) Urine RBC (Auto) U Hyaline Cast (Auto) U Epithel Cells (Auto) Urine Bacteria (Auto) Acetaminophen 20 _ (1) CAD (coronary artery disease) Coronary Disease-Associated Artery/Lesion type: rosebud artery [place] vs. transplanted heart: rosebud heart Associated angina: without angina Qualified Code(s): I25.10 - Atherosclerotic heart disease of rosebud coronary artery without angina pectoris
--- NOTE | 2018-11-23 10:29 | Surgery Progress Note ---
Date of Service November 23, 2018 Assessment & Plan (1) Cavitary pneumonia: -pt. with chronic cavitary lesion of CHATA: -concern that this may have been contributing to recurrent pneumonia -he has undergone an Eloessar flap in hopes this will help prevent recurrent pneumonia -operative pathology is (-) for malignancy -operative cultures are (-) for growth -plan noted by ID to continue voriconozole -wound examined and repacked at bedside this morning and will continue to do this daily Subjective Pt. feels as though his breathing has improved slightly. He denies fever, shakes, or chills. Physical Exam 2 Vital Signs (Past 24 Hours): Last Vital Signs Temp 36.4 C L 11/23/18 08:04 Pulse 88 11/23/18 08:04 Resp 16 11/23/18 08:04 BP 99/67 L 11/23/18 08:04 Pulse Ox 96 11/23/18 08:04 Physical Exam: Wound bed examined and no pus or purulent drainage Respiratory: no respiratory distress and no labored breathing BS are decreased at bases
--- NOTE | 2018-11-23 10:49 | Gastrointestinal Consultation ---
Date of Consultation November 23, 2018 Assessment & Plan (1) Elevated LFTs: Patient is a 73 yo male with significant medical comorbidities with elevated liver enzmyes. Work-up unremarkable for infectious hepatitis cause, no known cirrhosis, liver masses or lesions. This is likely due to shock liver given his cardiac ejection fraction of 15% combined with IV antifungal use. Continue to monitor his LFTs, though with an unremarkable work-up for primary hepatic causes, there is little GI intervention that can be made at present. Could consider palliative consult to address goals of care in this particular clinical setting. Thank you for allowing us to participate in the care of this patient. If you should have further questions or concerns, do not hesitate to contact us. Present on Admission?: Yes Supervising Physician Co-Signing Physician Notes Agree with NONA [place] as above Abd: Soft, mild tenderness RUQ, ND, +BS Continue current therapy and supportive care Most likely ischemic injury (shock liver) from recent surgery, which will resolve with supportive care Clearly it could also be related to his fungal illness and use of antifungal medications. 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 GI has been consulted for an elevation of liver enzymes. The patient's T bili is 1.6, D bili 0.9, AST 1160 , ALT 953, Alk phos 810, & INR 1.2. An infectious hepatitis panel was negative. A liver US indicated a contracted gallbladder was without other abnormalities. 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 He has drains in place. His WBC is 12.56 and his H/H is 9.2/28.8. The patient reports shortness of breath and extreme weakness. He denies significant alcohol use, liver disease, jaundice, itching, or IV drug abuse. He denies family history of liver disease. Allergies Allergy/AdvReac Type Severity Reaction Status Date / Time No Known Allergies Allergy Verified 11/11/18 15:07 Home Medications Home Medications Medication Instructions Recorded Confirmed Type ferrous sulfate 325 mg PO BID 09/17/18 11/11/18 History finasteride 5 mg PO QAM 09/17/18 11/11/18 History magnesium oxide 400 mg PO QAM 09/17/18 11/11/18 History metformin 1,000 mg PO BID 09/17/18 11/11/18 History multivitamin with minerals 1 tab PO QAM 09/17/18 11/11/18 History [Multiple Vitamin-Minerals] pantoprazole 40 mg PO QAM 09/17/18 11/11/18 History aspirin 81 mg PO QAM 10/14/18 11/11/18 History cyanocobalamin (vitamin B-12) 1,000 mcg PO QAM #30 tab 10/27/18 11/11/18 Rx [Vitamin B-12] melatonin 1 mg PO HS #30 tab 10/27/18 11/11/18 Rx metoprolol succinate 12.5 mg PO QAM #30 tab 10/27/18 11/11/18 Rx nitroglycerin 0.4 mg SUBLINGUAL Q5M PRN #30 tab 10/27/18 11/11/18 Rx nut.tx.gluc intol,lf,soy-fiber 1 ea PO TIDM #6399 ml 10/27/18 11/11/18 Rx [Boost Glucose Control] furosemide [Lasix] 20 mg PO Q OTHER DAY 11/11/18 11/11/18 History insulin aspart U-100 [Novolog 0 sliding scale dose SUBCUT ACHS 11/11/18 History Flexpen U-100 Insulin] potassium chloride [Klor-Con M20] 20 meq PO Q OTHER DAY 11/11/18 11/11/18 History Patient History Medical History Aspergillus fumigatus Acute on chronic systolic (congestive) heart failure ND (myocardial infarction) (Resolved) Small cell lung cancer (Acute 01/27/16) "DIAGNOSIS: Lung, CHATA, small cell lung carcinoma, [id number], stage IIIA TREATMENT: 1. Status post completion of combined radiation and chemotherapy. Radiation completed 05/02/2016 received 7000 cGy 2. 2 addition cycles of cisplatin/etoposide - Dr. Jeffery Ash" On 05/09/16 13:18 Beatris Curiel wrote "DIAGNOSIS: Lung, CHATA, small cell lung carcinoma, [id number], stage IIIA, limited stage Status post completion of combined radiation and chemotherapy. Radiation completed 05/02/2016 received 7000 cGy" On 05/09/16 12:53 Beatris Curiel wrote "DIAGNOSIS: Lung, CHATA, small cell lung carcinoma, [id number], stage IIIA, limited stage Status post completion of combined radiation and chemotherapy. Radiation completed 05/01/2016 received 7000 cGy" On 02/23/16 13:12 Jacinta Poole wrote "DIAGNOSIS: Lung, CHATA, small cell lung carcinoma, [id number], stage IIIA, limited stage" CAD (coronary artery disease) PVD (peripheral vascular disease) Hx of myocardial infarction HTN (hypertension) BPH (benign prostatic hyperplasia) HLD (hyperlipidemia) Anemia CKD stage 3 due to type 2 diabetes mellitus COPD (chronic obstructive pulmonary disease) DM II (diabetes mellitus, type II), controlled Consolidation lung Left upper lobe pneumonia Pneumonia Surgical History History of transurethral resection of prostate History of heart artery stent (Chronic) Family History Other Diabetes Heart disease Social History marital status: Current Living Situation: Spouse current occupational status: retired Other Information That Helps Us Care for You: No Feels Safe at Home: Yes Safety Concerns: Feels Safe At This Time Smoking Status: Former smoker Do You Dip or Chew Tobacco: No Hx Alcohol Use: No Hx Substance Use: No Beliefs That Will Affect Care: None Communication Ability: Effective Review of Systems Constitutional: + fatigue, + anorexia and + weight loss; no fever and no chills no acute complaints Respiratory: + cough and + dyspnea Cardiovascular: no chest pain Gastrointestinal: no abdominal pain no acute complaints Integumentary: no rash no acute concerns no acute complaints Hematologic / Lymphatic: + easy bleeding Physical Exam 2 Vital Signs (Past 24 Hours): Last Vital Signs Temp 36.4 C L 11/23/18 08:04 Pulse 88 11/23/18 08:04 Resp 16 11/23/18 08:04 BP 99/67 L 11/23/18 08:04 Pulse Ox 96 11/23/18 08:04 Constitutional: + thin, + cachectic and + physical limitations Eyes: PERRL, conjunctivae normal, anicteric sclerae ENMT: external ear and nose normal, oropharynx normal Respiratory: + labored breathing and + cough Auscultation: + crackles Cardiovascular: Rate/Rhythm: regular rate and regular rhythm Gastrointestinal (Abdomen): normal bowel sounds, soft, nontender, no hepatosplenomegaly Musculoskeletal: difficulty ambulating due to weakness & fatigue Skin: bruising Neurologic: Speech / Cognition: normal speech Psychiatric: Orientation: alert and oriented x 3
[2018-11-23 15:17] LABS: INR 1.8 (0.9-1.1); Prothrombin Time 17.2 Seconds (9.0-12.0)
--- NOTE | 2018-11-23 15:34 | Palliative Care Consultation ---
Date of Consultation November 23, 2018 Assessment & Plan (1) Palliative care encounter: Patient is a 72-year-old male known to our service from his last admission in October who presented on 127 with increased shortness of breath and increased lower edema. Patient had just been discharged from [facility] a few days prior to admission. Patient's admission in October was complicated by STEMI and required intubation - pt improved and went to rehab. Met with patient as well as his and daughter, his sister was also present for part of the interview. Past medical history is significant for aspergilloma and recurrent pneumonias- patient is status post Eloesser flap on 11/19 - Patient reports he feels his breathing has improved since the procedure. Patient has ICM O with an EF of 15% , chronic CHF, CKD stage III, COPD, small cell lung cancer diagnosed 2-1/2 years ago-status post chemo/XRT, DM II and BPH. Patient has been diuresing well with Lasix-it is currently on hold due to rising creatinine, BUN 53/creatinine 1.8. Patient is also on voriconazole which had to be held to to elevated LFTs which may be partially due to to the medication also partially due to shock liver. Discussed CODE STATUS-patient continues to want aggressive treatment as well as full resuscitation, however patient is starting to acknowledge the fact that he is overall declining. Patient reports that he is able to do very little at home without getting short of breath. Just performing his ADLs tires him out and leaves him winded. Discussed with patient and family options regarding discharge home which included home with home health, home with home health with transition to hospice, and discharged home under hospice care. Let patient and family know that if he decided to go home with hospice he could sign out at any time if he changed his mind and wanted to pursue more aggressive care. Discussed at length with patient and family energy conserving modalities including using a urinal instead of ambulating to the bathroom, obtaining a bedside commode. Discussed with case management qualifying patient for home O2 , investigating what home health services he would now qualify for given his recent surgery and daily wound care. Patient's states she would need more help at home-discussed higher caregivers for assistance. Patient was receptive to the information given. Discussed with case management making a hospice referral so that patient has information in place should he need services urgently. Patient would not need to sign into hospice at this time, but he could still have a referral in place. - Aspergilloma - Continue voriconazole once LFTs improve - Small cell lung cancer-surgical specimens were negative for malignancy - CHF-continue Lasix as tolerated, monitor BMPs - CKD stage III-baseline creatinine approximately 1.1-BUN 53/creatinine 1.8- Lasix on hold - ICMO-EF 15%-discussed at length the limitations that his cardiac status places on his activity, discussed energy conserving modalities when at home Will continue to follow and assist with medical decision making, collaborated with attending as well as case management to provide family with information regarding home health benefits, home O2 as well as hospice referral (2) Cavitary pneumonia: Status post Eloesser flap-respiratory status improved (3) Aspergillus fumigatus: Plan to continue voriconazole once LFTs improved (4) CHF (congestive heart failure): Acute on chronic CHF-Lasix on hold due to elevated BUN/creatinine Heart failure chronicity: acute on chronic Heart failure type: unspecified Qualified Code(s): I50.9 - Heart failure, unspecified (5) Elevated LFTs: May be partially due to for voriconazole versus component of shock liver- following LFTs (6) Ischemic cardiomyopathy: EF 15%-patient would qualify for hospice based on this diagnosis alone, patient on maximum medical therapy. (7) Small cell lung cancer: Stable History of Present Illness Reason for Consultation: Address goals of care Requesting Physician: Dr. Jace Ochoa Attending Physician: Jace Ontiveros History of Present Illness Patient is a 72-year-old male known to our service from his last admission in October who presented on 127 with increased shortness of breath and increased lower edema. Patient had just been discharged from [facility] a few days prior to admission. Patient's admission in October was complicated by STEMI and required intubation - pt improved and went to rehab. Met with patient as well as his and daughter, his sister was also present for part of the interview. Past medical history is significant for aspergilloma and recurrent pneumonias- patient is status post Eloesser flap on 11/19 - Patient reports he feels his breathing has improved since the procedure. Patient has ICM O with an EF of 15% , chronic CHF, CKD stage III, COPD, small cell lung cancer diagnosed 2-1/2 years ago-status post chemo/XRT, DM II and BPH. Patient has been diuresing well with Lasix-it is currently on hold due to rising creatinine, BUN 53/creatinine 1.8. Patient is also on voriconazole which had to be held to to elevated LFTs which may be partially due to to the medication also partially due to shock liver. Discussed CODE STATUS-patient continues to want aggressive treatment as well as full resuscitation, however patient is starting to acknowledge the fact that he is overall declining. Patient reports that he is able to do very little at home without getting short of breath. Just performing his ADLs tires him out and leaves him winded. Discussed with patient and family options regarding discharge home which included home with home health, home with home health with transition to hospice, and discharged home under hospice care. Let patient and family know that if he decided to go home with hospice he could sign out at any time if he changed his mind and wanted to pursue more aggressive care. Discussed at length with patient and family energy conserving modalities including using a urinal instead of ambulating to the bathroom, obtaining a bedside commode. Discussed with case management qualifying patient for home O2 , investigating what home health services he would now qualify for given his recent surgery and daily wound care. Patient's states she would need more help at home-discussed higher caregivers for assistance. Patient was receptive to the information given. Discussed with case management making a hospice referral so that patient has information in place should he need services urgently. Patient would not need to sign into hospice at this time, but he could still have a referral in place. Allergies Allergy/AdvReac Type Severity Reaction Status Date / Time No Known Allergies Allergy Verified 11/11/18 15:07 Home Medications Home Medications Medication Instructions Recorded Confirmed Type ferrous sulfate 325 mg PO BID 09/17/18 11/11/18 History finasteride 5 mg PO QAM 09/17/18 11/11/18 History magnesium oxide 400 mg PO QAM 09/17/18 11/11/18 History metformin 1,000 mg PO BID 09/17/18 11/11/18 History multivitamin with minerals 1 tab PO QAM 09/17/18 11/11/18 History [Multiple Vitamin-Minerals] pantoprazole 40 mg PO QAM 09/17/18 11/11/18 History aspirin 81 mg PO QAM 10/14/18 11/11/18 History cyanocobalamin (vitamin B-12) 1,000 mcg PO QAM #30 tab 10/27/18 11/11/18 Rx [Vitamin B-12] melatonin 1 mg PO HS #30 tab 10/27/18 11/11/18 Rx metoprolol succinate 12.5 mg PO QAM #30 tab 10/27/18 11/11/18 Rx nitroglycerin 0.4 mg SUBLINGUAL Q5M PRN #30 tab 10/27/18 11/11/18 Rx nut.tx.gluc intol,lf,soy-fiber 1 ea PO TIDM #6399 ml 10/27/18 11/11/18 Rx [Boost Glucose Control] furosemide [Lasix] 20 mg PO Q OTHER DAY 11/11/18 11/11/18 History insulin aspart U-100 [Novolog 0 sliding scale dose SUBCUT ACHS 11/11/18 History Flexpen U-100 Insulin] potassium chloride [Klor-Con M20] 20 meq PO Q OTHER DAY 11/11/18 11/11/18 History Patient History Medical History Aspergillus fumigatus Acute on chronic systolic (congestive) heart failure [place] (myocardial infarction) (Resolved) Small cell lung cancer (Acute 01/27/16) "DIAGNOSIS: Lung, CHATA, small cell lung carcinoma, [id number], stage IIIA TREATMENT: 1. Status post completion of combined radiation and chemotherapy. Radiation completed 05/02/2016 received 7000 cGy 2. 2 addition cycles of cisplatin/etoposide - Dr. Jeffery Ash" On 05/09/16 13:18 Beatris Curiel wrote "DIAGNOSIS: Lung, CHATA, small cell lung carcinoma, [id number], stage IIIA, limited stage Status post completion of combined radiation and chemotherapy. Radiation completed 05/02/2016 received 7000 cGy" On 05/09/16 12:53 Beatris Curiel wrote "DIAGNOSIS: Lung, CHATA, small cell lung carcinoma, [id number], stage IIIA, limited stage Status post completion of combined radiation and chemotherapy. Radiation completed 05/01/2016 received 7000 cGy" On 02/23/16 13:12 Veeral Poole wrote "DIAGNOSIS: Lung, CHATA, small cell lung carcinoma, [id number], stage IIIA, limited stage" CAD (coronary artery disease) PVD (peripheral vascular disease) Hx of myocardial infarction HTN (hypertension) BPH (benign prostatic hyperplasia) HLD (hyperlipidemia) Anemia CKD stage 3 due to type 2 diabetes mellitus COPD (chronic obstructive pulmonary disease) DM II (diabetes mellitus, type II), controlled Consolidation lung Left upper lobe pneumonia Pneumonia Surgical History History of transurethral resection of prostate History of heart artery stent (Chronic) Family History Other Diabetes Heart disease Social History marital status: Current Living Situation: Spouse current occupational status: retired Other Information That Helps Us Care for You: No Feels Safe at Home: Yes Safety Concerns: Feels Safe At This Time Smoking Status: Former smoker Do You Dip or Chew Tobacco: No Hx Alcohol Use: No Hx Substance Use: No Beliefs That Will Affect Care: None Communication Ability: Effective Review of Systems Constitutional: + fatigue Eyes: no problem reported Ear, Nose, Mouth, Throat: no problem reported Respiratory: + dyspnea on exertion Cardiovascular: + dyspnea on exertion and + edema Gastrointestinal: no problem reported Musculoskeletal: + muscle weakness Status post Eloesser flap Neurologic: + generalized weakness Psychiatric: no problem reported DM II anemia Physical Exam 2 Vital Signs (Past 24 Hours): Last Vital Signs Temp 36.3 C L 11/23/18 11:30 Pulse 87 11/23/18 11:30 Resp 20 11/23/18 11:30 BP 95/62 L 11/23/18 11:30 Pulse Ox 97 11/23/18 11:30 Physical Exam: PE: NAD HEENT: EOMI, normal hearing Respiratory: Pursed lip breathing, mild shortness of breath with conversation, no rhonchi or wheezes on exam CV: Regular rate with occasional ectopy, no edema Abdomen: Soft, nontender Extremities: No edema, full range of motion Neuro: Generalized weakness, alert and oriented x4 Skin: Appears well perfused Psych: Appropriate mood Time Spent Attending Total time spent 70 minutes with greater than 50% of the time spent at bedside discussing treatment options and goals of care with both patient and family
[2018-11-23 16:40] LABS: Albumin Globulin Ratio 0.6 (0.9-2); Albumin Level 2.3 gm/dl (3.4-5.0); BUN Creatinine Ratio 32.5 (10-20); Bilirubin,Total 1.6 mg/dl (0.2-1); Calcium 8.6 mg/dl (8.5-10.1); Creatinine Clr Calc Pharmacy 30.1 ml/min; Est GFR (Non-African American) 39.7; Globulin 3.9 gm/dl (2.5-4.0); Total Protein 6.2 gm/dl (6.4-8.2)
--- NOTE | 2018-11-23 19:35 | Hospitalist Progress Note ---
Date of Service November 23, 2018 Assessment & Plan (1) Shock liver: Marked increase in LFTs over the last 3 days coincide with the timing of his recent surgery. Suspect the acute liver injury/acute liver failure is from "shock" liver (could have had low flow state due to severe systolic CHF). Rise in INR to 1.8 is concerning. GI consult by Dr. Lam appreciated. He agrees this is likely shock liver and less likely voriconazole induced toxicity. Tylenol induced injury unlikely given the level today. STOP lipitor, tylenol, and voriconazole. Repeat LFTs and INR in am. Patient is NOT a liver transplant candidate and transferring him to liver center would likely not be fruitful. Will hope that his LFTs and INR improve in the next few days. Watch carefully for development of hepatic encephalopathy. Would d/c ativan as he likely will not tolerate such in the setting of the acute liver failure. Present on Admission?: No (2) Coagulopathy: 2nd to shock liver. INR 1.8. Stop heparin SC. Repeat INR in am. Supportive care. Could consider vitamin K but doubt it would be helpful. Present on Admission?: No (3) Acute kidney injury: Also likely ATN in setting of low flow state from his severe CHF and recent surgery. HOLD lasix. HOLD metoprolol due to low BPs. Repeat BMP later today and then again in am. (4) Anxiety: In light of shock liver will hold the ativan to avoid excess sedation. (5) Acute respiratory failure with hypoxia: Due to recent RLL pneumonia, decompensated CHF (improved/resolved), COPD, recent surgery, pleural effusion, etc. (6) Aspergillus fumigatus: Path confirmed from the CHATA cavity. Unfortunately will have to stop the voriconazole in light of acute liver injury. Dr. Rodriguez aware of this. Likely heavily contributing to failure to thrive and anorexia. (7) Acute on chronic systolic (congestive) heart failure: Appears compensated today. Due to acute kidney injury and low BP will have to hold his BB and lasix today. Resume as soon as safe to do so. AT VERY HIGH RISK of decompensation from volume standpoint. (8) Severe protein-calorie malnutrition: ongoing issue. due to recurrent pneumonia, fungal infection, probable depression, etc. (9) Cavitary lesion of lung: CHATA. s/p left superior anterior Eloesser flap. with associated fungal ball. continue dressing changes to flap. (10) DM II (diabetes mellitus, type II), controlled: (11) COPD (chronic obstructive pulmonary disease): no exacerbation at this time. (12) CKD stage 3 due to type 2 diabetes mellitus: baseline CrCl low to mid 30s BMP in am (13) CAD (coronary artery disease): no obvious ischemic symptoms at this time. s/p cath last month with stable CAD. (14) RLL pneumonia: s/p complete course of IV antibiotic therapy this admission. clinically stable/resolved. (15) DVT prophylaxis: holding heparin due to coagulopathy from shock liver total time today including bedside discussion, talking with palliative care, talking with GI, etc - 65 minutes I spoke heavily to pt and his family about options for care following d/c we talked about palliative care as well he was agreeable to speaking to palliative care and Dr. Briceno spent a considerable amount of time discussing options he remains full code, however, at this time Subjective patient very tired, weak, and gets easily winded with any activity he slept ok last night reports the ativan DOES help with his anxiety during my visit he seemed very sleepy; speech slightly slurry/slow tele with NSR; PVCs /daughter at bedside we had a 30+ minute bedside discussion regarding the current issues (shock liver , acute kidney injury, need to hold anti-fungal treatment, disposition -- home vs SNF, etc etc) numerous questions from pt and his family also spoke with GI twice today re: shock liver Constitutional: no fever Respiratory: + dyspnea and + dyspnea on exertion; no cough Cardiovascular: no chest pain Gastrointestinal: no abdominal pain Psychiatric: + abnormal sleep pattern and + anxiety Physical Exam 2 Vital Signs (Past 24 Hours): Last Vital Signs Temp 36.5 C 11/23/18 19:25 Pulse 88 11/23/18 19:25 Resp 16 11/23/18 19:25 BP 88/60 L 11/23/18 19:25 Pulse Ox 99 11/23/18 19:25 Constitutional: + ill appearing and + cachectic; no acute distress ENMT: external ear and nose normal, oropharynx normal Respiratory: Auscultation: + diminished lung sounds (left base and to an extent the CHATA; right lung clear except scant rales right base) Cardiovascular: Rate/Rhythm: regular rate and regular rhythm Heart Sounds: normal S1 and normal S2; no murmur Vessels: + JVD, posterior tibial pulses present (about 1+ ) and dorsalis pedis pulses present (about 1+) Gastrointestinal (Abdomen): Inspection/Auscultation: abdomen normal to inspection and normal bowel sounds Percussion/Palpation: + abdomen tender ( RUQ - minimal), abdomen soft and + hepatomegaly; no splenomegaly and no abdominal mass Psychiatric: Orientation: alert and oriented x 3 Mood: + anxious mood Results & Data Laboratory Results Laboratory Results - last 24 hr 11/22/18 11/23/18 11/23/18 20:07 05:30 05:30 WBC 12.56 H RBC 3.23 L Hgb 9.2 L Hct 28.8 L MCV 89.2 MCH 28.5 MCHC 31.9 L RDW Std Deviation 73.0 H RDW Coeff of Molly 22.8 H Plt Count 245 MPV 10.7 H Immature Gran % (Auto) 1.9 Neut % (Auto) 80.6 Lymph % (Auto) 4.6 [place] % (Auto) 12.6 Eos % (Auto) 0.1 Baso % (Auto) 0.2 Immature Gran # (Auto) 0.24 H Neut # (Auto) 10.13 H Lymph # (Auto) 0.58 L [place] # (Auto) 1.58 H Eos # (Auto) 0.01 Baso # (Auto) 0.02 Absolute Nucleated RBC 0.04 H Nucleated RBC % (auto) 0.3 Polychromasia 1+ Anisocytosis Present PT INR Sodium 131 L Potassium 4.5 Chloride 95 L Carbon Dioxide 25 Anion Gap 10.0 BUN 53 H Creatinine 1.80 H D Est Cr Clr Drug Dosing 27.9 Est GFR ( Amer) 41.7 Est GFR (Non-Af Amer) 36.0 BUN/Creatinine Ratio 29.4 H Glucose 136 H POC Glucose 160 H Calcium 8.4 L Magnesium 2.0 Total Bilirubin 1.6 H Direct Bilirubin 0.9 H AST 1160 H ALT 953 H Alkaline Phosphatase 810 H Total Protein 6.1 L Albumin 2.2 L Globulin Albumin/Globulin Ratio Specimen Hemolysis Acetaminophen 11/23/18 11/23/18 11/23/18 07:19 09:09 11:27 WBC RBC Hgb Hct MCV MCH MCHC RDW Std Deviation RDW Coeff of Molly Plt Count MPV Immature Gran % (Auto) Neut % (Auto) Lymph % (Auto) [place] % (Auto) Eos % (Auto) Baso % (Auto) Immature Gran # (Auto) Neut # (Auto) Lymph # (Auto) [place] # (Auto) Eos # (Auto) Baso # (Auto) Absolute Nucleated RBC Nucleated RBC % (auto) Polychromasia Anisocytosis PT INR Sodium Potassium Chloride Carbon Dioxide Anion Gap BUN Creatinine Est Cr Clr Drug Dosing Est GFR ( Amer) Est GFR (Non-Af Amer) BUN/Creatinine Ratio Glucose POC Glucose 144 H 135 H Calcium Magnesium Total Bilirubin Direct Bilirubin AST ALT Alkaline Phosphatase Total Protein Albumin Globulin Albumin/Globulin Ratio Specimen Hemolysis Acetaminophen 20 11/23/18 11/23/18 11/23/18 14:50 14:50 16:01 WBC RBC Hgb Hct MCV MCH MCHC RDW Std Deviation RDW Coeff of Molly Plt Count MPV Immature Gran % (Auto) Neut % (Auto) Lymph % (Auto) [place] % (Auto) Eos % (Auto) Baso % (Auto) Immature Gran # (Auto) Neut # (Auto) Lymph # (Auto) [place] # (Auto) Eos # (Auto) Baso # (Auto) Absolute Nucleated RBC Nucleated RBC % (auto) Polychromasia Anisocytosis PT 17.2 H INR 1.8 H Sodium 131 L Potassium 5.0 Chloride 98 Carbon Dioxide 20 L Anion Gap 12.0 H BUN 54 H Creatinine 1.66 H Est Cr Clr Drug Dosing 30.1 Est GFR ( Amer) 46.0 Est GFR (Non-Af Amer) 39.7 BUN/Creatinine Ratio 32.5 H Glucose 135 H POC Glucose 145 H Calcium 8.6 Magnesium Total Bilirubin 1.6 H Direct Bilirubin AST 1128 H ALT 1012 H Alkaline Phosphatase 798 H Total Protein 6.2 L Albumin 2.3 L Globulin 3.9 Albumin/Globulin Ratio 0.6 L Specimen Hemolysis Acetaminophen _ (1) DM II (diabetes mellitus, type II), controlled Diabetes mellitus nursing home insulin use: without 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 oil terminal 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 use Diabetes mellitus complication status: with kidney complications Diabetes mellitus complication detail: with chronic kidney disease Diabetic retinopathy severity : Proliferative retinopathy type: Diabetes mellitus macular edema: Laterality: Chronic kidney disease stage: stage 3 (moderate) Qualified Code(s ): E11.22 - Type 2 diabetes mellitus with diabetic chronic kidney disease; N18.3 - Chronic kidney disease, stage 3 (moderate) (2) COPD (chronic obstructive pulmonary disease) COPD type: chronic bronchitis Chronic bronchitis type: unspecified Emphysema type: Qualified Code(s): J42 - Unspecified chronic bronchitis (3) CAD (coronary artery disease) Coronary Disease-Associated Artery/Lesion type: [place] artery [place] vs. transplanted heart: [place] heart Associated angina: without angina Qualified Code(s): I25.10 - Atherosclerotic heart disease of [place] coronary artery without angina pectoris (4) RLL pneumonia Pneumonia type: due to unspecified organism Qualified Code(s): J18.1 - Lobar pneumonia, unspecified organism
[2018-11-23] MEDS ORDERED: HEPARIN SOD 5,000 UNIT/0.5 ML VIAL SQ SCH (21:00)
[2018-11-23] MEDS: INSULIN GLARGINE SOLOSTAR 100 UNITS/ML 3 ML PEN SC SCH (21:14)
[2018-11-23 23:35] LABS: Appearance Urine Cloudy (Clear); Bacteria Urine Automated Negative (Negative); Bilirubin Urine Negative (Negative); Blood Urine 1+ (Negative); Color Urine Dark Yellow; Epithelial Cell Urine Auto >30 /lpf (0-5); Glucose Urine UA Negative (Negative); Ketones Urine Negative (Negative); Leukocyte Esterase Urine Negative (Negative); Nitrite Urine Negative (Negative); Protein Urine 2+ (Negative); RBC Urine Automated 0-4 /hpf (0-4); Specific Gravity Urine 1.024 (1.000-1.030); Urobilinogen Urine Negative (Negative)
[2018-11-24 06:31] LABS: Hematocrit (blood only) 26.3 % (42-52); Hemoglobin 8.4 g/dL (14.0-18.0); Mean Corpuscular Hgb Conc 31.9 g/dL (32-36); Mean Corpuscular Volume 88.9 fL (80-100); Mean Platelet Volume 10.5 fL (7.4-10.4); Nucleated RBC # (auto) 0.04 K/uL (0-0); Nucleated RBC % (auto) 0.3 %; Platelet Count 172 K/uL (130-400); RDW Coefficient of Variation 22.7 % (11.5-14.5); RDW Standard Deviation 72.4 fL (36.4-46.3); Red Blood Count 2.96 M/uL (4.7-6.1); White Blood Count 13.21 K/uL (4.8-10.8)
[2018-11-24 06:48] LABS: INR 1.7 (0.9-1.1)
[2018-11-24 07:08] LABS: Albumin Level 2.3 gm/dl (3.4-5.0); Calcium 8.3 mg/dl (8.5-10.1); Creatinine Clr Calc Pharmacy 33.9 ml/min; Est GFR (African American) 52.9; Est GFR (Non-African American) 45.6; Potassium 4.4 mmol/L (3.5-5.1)
[2018-11-24 07:15] LABS: Albumin Globulin Ratio 0.6 (0.9-2); Bilirubin,Total 1.8 mg/dl (0.2-1); Globulin 3.8 gm/dl (2.5-4.0); Total Protein 6.1 gm/dl (6.4-8.2)
[2018-11-24] MEDS: INSULIN ASPART 100 UNITS/ML 3 ML PEN SC SCH ×5 (07:30→20:17)
[2018-11-24] MEDS: LACTOBACILLUS ACIDOPHILUS (FLORANEX) TAB PO SCH ×4 (08:13→17:35)
[2018-11-24] MEDS: CYANOCOBALAMIN 500 MCG TABLET (VITAMIN B-12) PO SCH (08:13)
[2018-11-24] MEDS: CEROVITE ADV FORMULA TAB PO SCH (08:14)
[2018-11-24] MEDS: PANTOprazole 40 MG TAB PO SCH (08:14)
[2018-11-24] MEDS: ASPIRIN 81 MG ECTAB PO SCH (08:14)
[2018-11-24] MEDS: MAGNESIUM OXIDE 400 MG TAB PO SCH (08:15)
[2018-11-24] MEDS: FERROUS SULFATE 325 MG TAB PO SCH ×2 (08:15→20:18)
[2018-11-24] MEDS: FINASTERIDE 5 MG TAB PO SCH (08:15)
--- NOTE | 2018-11-24 08:22 | Surgery Progress Note ---
Date of Service November 24, 2018 Assessment & Plan (1) Cavitary pneumonia: -pt. with chronic cavitary lesion of CHATA: -concern that this may have been contributing to recurrent pneumonia -he has undergone an Eloessar flap in hopes this will help prevent recurrent pneumonia -operative pathology is (-) for malignancy; fungal hyphae noted on path ( this is consistent with Aspergillus infection) -operative cultures are (-) for growth -plan noted by ID to continue voriconozole -wound examined and repacked at bedside this morning; this will continue Subjective Pt. notes his breathing has improved since admission. He notes little pain at surgical site. Physical Exam 2 Vital Signs (Past 24 Hours): Last Vital Signs Temp 36.7 C 11/24/18 07:04 Pulse 96 H 11/24/18 07:04 Resp 20 11/24/18 07:04 BP 96/64 L 11/24/18 07:04 Pulse Ox 96 11/24/18 07:04 Physical Exam: Surgical packing removed--no pus or purulent drainage noted, however, removed packing and wound are malodorous. Wound repacked and dressed Respiratory: normal respiratory effort; no respiratory distress and no labored breathing
--- NOTE | 2018-11-24 15:20 | Hospitalist Progress Note ---
Date of Service November 24, 2018 Assessment & Plan (1) Shock liver: Marked increase in LFTs coincide with the timing of his recent surgery. Suspect the acute liver injury/acute liver failure is from "shock" liver (could have had low flow state due to severe systolic CHF). Rise in INR to 1.8 is concerning, now improved to 1.7. LFTs all slightly worse today GI consult by Dr. Lam appreciated. He agrees this is likely shock liver -not likely at all to be voriconazole -induced toxicity as he had only taken 2 doses of it prior to LFTs being found to be dramatically elevated Tylenol induced injury unlikely given the level being 20 -have since discontinued lipitor, tylenol, lorazepam, and voriconazole. -follow LFTs and INR in am. Patient is NOT a liver transplant candidate and transferring him to liver center would likely not be fruitful. Will hope that his LFTs and INR improve in the next few days. Watch carefully for development of hepatic encephalopathy. (2) Coagulopathy: Secondary to shock liver. INR improved today to 1.7 -holding heparin SC. -Repeat INR in am. Supportive care. Could consider vitamin K (3) Acute kidney injury: From ATN in setting of low flow state from his severe CHF and recent surgery, especially with a lot of granular casts on UA Improved renal function today, non-oliguric With some proteinuria on UA -continue to HOLD lasix. BPs improved, ok to restart metoprolol (held for hypotension) -follow BMP (4) Anxiety: In light of shock liver will hold the ativan to avoid excess sedation. (5) Acute respiratory failure with hypoxia: Due to recent RLL pneumonia, decompensated CHF (improved/resolved), COPD, recent surgery, pleural effusion, etc. 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 Unfortunately had to stop the voriconazole in light of acute liver injury. Dr. Rodriguez aware of this. Likely heavily contributing to failure to thrive and anorexia. (7) Acute on chronic systolic (congestive) heart failure: Appears compensated today. Due to acute kidney injury and low BP had to hold his BB and lasix -ok to restart metoprolol -continue to hold lasix AT VERY HIGH RISK of decompensation from volume standpoint. (8) Severe protein-calorie malnutrition: ongoing issue. due to recurrent pneumonia, fungal infection, probable depression, etc. (9) Cavitary lesion of lung: CHATA. s/p left superior anterior Eloesser flap. with associated fungal ball. continue dressing changes to flap. (10) DM II (diabetes mellitus, type II), controlled: With hypoglycemia and now with hyperglycemia -change Lantus to 5 units and change to qAM rather than qhs as AM glucose tends to be lower -continue same supplemental pre-meal insulin (11) COPD (chronic obstructive pulmonary disease): no exacerbation at this time. (12) CKD stage 3 due to type 2 diabetes mellitus: baseline CrCl low to mid 30s BMP in am (13) CAD (coronary artery disease): no obvious ischemic symptoms at this time. s/p cath last month with stable CAD. -continue ASA metoprolol -holding statin for shock liver (14) RLL pneumonia: s/p complete course of IV antibiotic therapy this admission. clinically stable/resolved. (15) Nonsustained ventricular tachycardia: continues with small runs 3-4 beats -restart metoprolol -continue tele monitoring (16) Anemia: Hgb slightly worse today at 8.4 -secondary to Fe def and of chronic disease -continue FeSO4 325mg bid -follow CBC (17) HLD (hyperlipidemia): holding statin due to shock liver as above (18) BPH (benign prostatic hyperplasia): continue finasteride PVRs here have been next to nothing despite c/o urinary urgency, UA neg for infection (19) DVT prophylaxis: holding heparin due to coagulopathy from shock liver Dispo-continue on tele unit Palliative Care Medicine following and addressing goals of care FULL CODE Subjective Pt reports maybe feeling just a bit better than yesterday. Still has his usual dyspnea with minimal activity, feels this limits his walking, but wants to try to walk the halls today. He is moving his bowels, no diarrhea. Still feels urinary urgency but then not much urine comes out. No chest pain. Pt and had multiple questions about his condition and all were answered. Continues to have poor appetite, but denies nausea. Tele with NSR, 3-4 beat runs of VT, , rates in the 90s. Review of Systems All systems reviewed & are unremarkable except as noted in HPI & below Physical Exam 2 Vital Signs (Past 24 Hours): Last Vital Signs Temp 36.5 C 11/24/18 10:40 Pulse 99 H 11/24/18 10:40 Resp 18 11/24/18 10:40 BP 100/66 11/24/18 10:40 Pulse Ox 99 11/24/18 10:40 Constitutional: + ill appearing (chronically ), + thin and + cachectic; no acute distress Eyes: PERRL, conjunctivae normal, anicteric sclerae Neck: trachea midline, no thyromegaly Respiratory: normal respiratory effort Auscultation: + crackles (mild, at left base, otherwise much clearer throughout than previously) Cardiovascular: RRR, no murmur, no edema Chest (Breasts): Chest: + abnormal inspection of chest (Left superior anterior chest wall with thick dressing in place, C/D/I) Gastrointestinal (Abdomen): normal bowel sounds, soft, nontender, no hepatosplenomegaly Musculoskeletal: Extremities: extremities normal to inspection; no cyanosis and no clubbing Skin: no rashes, warm and dry Neurologic: moves all extremities and awake; no focal motor deficits Psychiatric: Orientation: alert Results & Data Laboratory Results 11/24/18 11/24/18 11/24/18 Range/Units 20:14 16:23 16:16 WBC (4.8-10.8) K/uL RBC (4.7-6.1) M/uL Hgb (14.0-18.0) g/dL Hct (42-52) % MCV (80-100) fL MCH (25-34) pg MCHC (32-36) g/dL RDW Std Deviation (36.4-46.3) fL RDW Coeff of Molly (11.5-14.5) % Plt Count (130-400) K/uL MPV (7.4-10.4) fL Absolute Nucleated RBC (0-0) K/uL Nucleated RBC % (auto) % PT (9.0-12.0) Seconds INR (0.9-1.1) Sodium (136-145) mmol/L Potassium (3.5-5.1) mmol/L Chloride (98-107) mmol/L Carbon Dioxide (21-32) mmol/L Anion Gap (3-11) BUN (7-18) mg/dl Creatinine (0.6-1.4) mg/dl Est Cr Clr Drug Dosing ml/min Est GFR ( Amer) Est GFR (Non-Af Amer) BUN/Creatinine Ratio (10-20) Glucose (70-99) mg/dl POC Glucose 192 H 244 H 254 H (70-99) Calcium (8.5-10.1) mg/dl Total Bilirubin (0.2-1) mg/dl AST (15-37) U/L ALT (12-78) U/L Alkaline Phosphatase (45-117) U/L Total Protein (6.4-8.2) gm/dl Albumin (3.4-5.0) gm/dl Globulin (2.5-4.0) gm/dl Albumin/Globulin Ratio (0.9-2) Urine Color Urine Appearance (Clear) Urine pH (4.5-7.5) Ur Specific [place] (1.000-1.030) Urine Protein (Negative) Urine Glucose (UA) (Negative) Urine Ketones (Negative) Urine Blood (Negative) Urine Nitrite (Negative) Urine Bilirubin (Negative) Urine Urobilinogen (Negative) Ur Leukocyte Esterase (Negative) Urine WBC (Auto) (0-5) /hpf Urine RBC (Auto) (0-4) /hpf U Hyaline Cast (Auto) (0-5) /lpf U Epithel Cells (Auto) (0-5) /lpf Urine Bacteria (Auto) (Negative) Ur Renal Epithelial Cell Granular Casts (0) /lpf 11/24/18 11/24/18 11/24/18 Range/Units 11:20 07:31 05:46 WBC (4.8-10.8) K/uL RBC (4.7-6.1) M/uL Hgb (14.0-18.0) g/dL Hct (42-52) % MCV (80-100) fL MCH (25-34) pg MCHC (32-36) g/dL RDW Std Deviation (36.4-46.3) fL RDW Coeff of Molly (11.5-14.5) % Plt Count (130-400) K/uL MPV (7.4-10.4) fL Absolute Nucleated RBC (0-0) K/uL Nucleated RBC % (auto) % PT (9.0-12.0) Seconds INR (0.9-1.1) Sodium 132 L (136-145) mmol/L Potassium 4.4 (3.5-5.1) mmol/L Chloride 98 (98-107) mmol/L Carbon Dioxide 25 (21-32) mmol/L Anion Gap 9.0 (3-11) BUN 52 H (7-18) mg/dl Creatinine 1.48 H (0.6-1.4) mg/dl Est Cr Clr Drug Dosing 33.9 ml/min Est GFR ( Amer) 52.9 Est GFR (Non-Af Amer) 45.6 BUN/Creatinine Ratio 35.0 H (10-20) Glucose 103 H (70-99) mg/dl POC Glucose 135 H 111 H (70-99) Calcium 8.3 L (8.5-10.1) mg/dl Total Bilirubin 1.8 H (0.2-1) mg/dl AST 1429 H (15-37) U/L ALT 1130 H (12-78) U/L Alkaline Phosphatase 956 H (45-117) U/L Total Protein 6.1 L (6.4-8.2) gm/dl Albumin 2.3 L (3.4-5.0) gm/dl Globulin 3.8 (2.5-4.0) gm/dl Albumin/Globulin Ratio 0.6 L (0.9-2) Urine Color Urine Appearance (Clear) Urine pH (4.5-7.5) Ur Specific [place] (1.000-1.030) Urine Protein (Negative) Urine Glucose (UA) (Negative) Urine Ketones (Negative) Urine Blood (Negative) Urine Nitrite (Negative) Urine Bilirubin (Negative) Urine Urobilinogen (Negative) Ur Leukocyte Esterase (Negative) Urine WBC (Auto) (0-5) /hpf Urine RBC (Auto) (0-4) /hpf U Hyaline Cast (Auto) (0-5) /lpf U Epithel Cells (Auto) (0-5) /lpf Urine Bacteria (Auto) (Negative) Ur Renal Epithelial Cell Granular Casts (0) /lpf 11/24/18 11/24/18 11/23/18 Range/Units 05:46 05:46 23:00 WBC 13.21 H (4.8-10.8) K/uL RBC 2.96 L (4.7-6.1) M/uL Hgb 8.4 L (14.0-18.0) g/dL Hct 26.3 L (42-52) % MCV 88.9 (80-100) fL MCH 28.4 (25-34) pg MCHC 31.9 L (32-36) g/dL RDW Std Deviation 72.4 H (36.4-46.3) fL RDW Coeff of Molly 22.7 H (11.5-14.5) % Plt Count 172 (130-400) K/uL MPV 10.5 H (7.4-10.4) fL Absolute Nucleated RBC 0.04 H (0-0) K/uL Nucleated RBC % (auto) 0.3 % PT 17.0 H (9.0-12.0) Seconds INR 1.7 H (0.9-1.1) Sodium (136-145) mmol/L Potassium (3.5-5.1) mmol/L Chloride (98-107) mmol/L Carbon Dioxide (21-32) mmol/L Anion Gap (3-11) BUN (7-18) mg/dl Creatinine (0.6-1.4) mg/dl Est Cr Clr Drug Dosing ml/min Est GFR ( Amer) Est GFR (Non-Af Amer) BUN/Creatinine Ratio (10-20) Glucose (70-99) mg/dl POC Glucose (70-99) Calcium (8.5-10.1) mg/dl Total Bilirubin (0.2-1) mg/dl AST (15-37) U/L ALT (12-78) U/L Alkaline Phosphatase (45-117) U/L Total Protein (6.4-8.2) gm/dl Albumin (3.4-5.0) gm/dl Globulin (2.5-4.0) gm/dl Albumin/Globulin Ratio (0.9-2) Urine Color Dark Yellow Urine Appearance Cloudy H (Clear) Urine pH 5.0 (4.5-7.5) Ur Specific [place] 1.024 (1.000-1.030) Urine Protein 2+ H (Negative) Urine Glucose (UA) Negative (Negative) Urine Ketones Negative (Negative) Urine Blood 1+ H (Negative) Urine Nitrite Negative (Negative) Urine Bilirubin Negative (Negative) Urine Urobilinogen Negative (Negative) Ur Leukocyte Esterase Negative (Negative) Urine WBC (Auto) 10-30 H (0-5) /hpf Urine RBC (Auto) 0-4 (0-4) /hpf U Hyaline Cast (Auto) 1-5 (0-5) /lpf U Epithel Cells (Auto) >30 H (0-5) /lpf Urine Bacteria (Auto) Negative (Negative) Ur Renal Epithelial Cell Not Reportable Granular Casts 10-20 H (0) /lpf _ (1) CAD (coronary artery disease) Associated angina: without angina Coronary Disease-Associated Artery/Lesion type: [place] artery [place] vs. transplanted heart: [place] heart Qualified Code (s): I25.10 - Atherosclerotic heart disease of [place] coronary artery without angina pectoris (2) DM II (diabetes mellitus, type II), controlled Chronic kidney disease stage: stage 3 (moderate) Diabetes mellitus complication detail: with chronic kidney disease Diabetes mellitus complication status: with kidney complications Diabetes mellitus fdc insulin use: without intermodal customer service use Diabetes mellitus macular edema: Diabetic retinopathy severity: Laterality: Proliferative retinopathy type: Qualified Code(s): E11.22 - Type 2 diabetes mellitus with diabetic chronic kidney disease; N18.3 - Chronic kidney disease, stage 3 (moderate) (3) COPD (chronic obstructive pulmonary disease) COPD type: chronic bronchitis Chronic bronchitis type: unspecified Emphysema type: Qualified Code(s): J42 - Unspecified chronic bronchitis (4) RLL pneumonia Aspiration pneumonia type: Pneumonia type: due to unspecified organism Qualified Code(s): J18.1 - Lobar pneumonia, unspecified organism (5) Anemia Anemia type: other cause Iron deficiency anemia type: Vitamin B12 deficiency anemia type: Folate deficiency anemia type: Bone marrow failure anemia type: Hemolytic anemia type: Other causes of anemia: other cause, not classified Chronic kidney disease stage: Qualified Code(s): D64.89 - Other specified anemias (6) HLD (hyperlipidemia) Hyperlipidemia type: unspecified Qualified Code(s): E78.5 - Hyperlipidemia, unspecified (7) BPH (benign prostatic hyperplasia) Lower urinary tract symptom presence: symptoms absent Lower urinary tract symptom detail: Qualified Code(s): N40.0 - Benign prostatic hyperplasia without lower urinary tract symptoms
[2018-11-24] MEDS: INSULIN GLARGINE SOLOSTAR 100 UNITS/ML 3 ML PEN SC SCH (20:17)
[2018-11-25 07:34] LABS: Hematocrit (blood only) 27.7 % (42-52); Hemoglobin 8.9 g/dL (14.0-18.0); Mean Corpuscular Volume 88.5 fL (80-100); Red Blood Count 3.13 M/uL (4.7-6.1); White Blood Count 9.84 K/uL (4.8-10.8)
[2018-11-25 07:35] LABS: Basophils # (auto) 0.01 K/uL (0-0.2); Basophils % (auto) 0.1 %; Eosinophils # (auto) 0.04 K/uL (0-0.5); Eosinophils % (auto) 0.4 %; Immature Granulocytes # (auto) 0.08 K/uL (0.00-0.02); Immature Granulocytes % (auto) 0.8 %; Lymphocytes # (auto) 0.83 K/uL (1.2-3.4); Lymphocytes % (auto) 8.4 %; Mean Corpuscular Hgb Conc 32.1 g/dL (32-36); Mean Platelet Volume 11.2 fL (7.4-10.4); Monocytes # (auto) 1.17 K/uL (0.11-0.59); Monocytes % (auto) 11.9 %; Neutrophils # (auto) 7.71 K/uL (1.4-6.5); Neutrophils % (auto) 78.4 %; Platelet Count 144 K/uL (130-400); RDW Coefficient of Variation 23.4 % (11.5-14.5); RDW Standard Deviation 73.8 fL (36.4-46.3)
[2018-11-25 07:48] LABS: INR 1.6 (0.9-1.1); Prothrombin Time 15.3 Seconds (9.0-12.0)
[2018-11-25] MEDS: INSULIN ASPART 100 UNITS/ML 3 ML PEN SC SCH ×4 (07:52→21:51)
[2018-11-25] MEDS: ASPIRIN 81 MG ECTAB PO SCH (07:54)
[2018-11-25] MEDS: FERROUS SULFATE 325 MG TAB PO SCH ×2 (07:54→21:52)
[2018-11-25] MEDS: MAGNESIUM OXIDE 400 MG TAB PO SCH (07:54)
[2018-11-25] MEDS: LACTOBACILLUS ACIDOPHILUS (FLORANEX) TAB PO SCH ×3 (07:55→17:49)
[2018-11-25] MEDS: FINASTERIDE 5 MG TAB PO SCH (07:55)
[2018-11-25] MEDS: CYANOCOBALAMIN 500 MCG TABLET (VITAMIN B-12) PO SCH (07:55)
[2018-11-25] MEDS: CEROVITE ADV FORMULA TAB PO SCH (07:56)
[2018-11-25] MEDS: INSULIN GLARGINE SOLOSTAR 100 UNITS/ML 3 ML PEN SC SCH (07:56)
[2018-11-25] MEDS: PANTOprazole 40 MG TAB PO SCH (07:56)
[2018-11-25 08:09] LABS: Albumin Level 2.2 gm/dl (3.4-5.0); Bilirubin Direct 0.7 mg/dl (0-0.2); Magnesium 2.2 mg/dl (1.8-2.4)
[2018-11-25 08:13] LABS: Anisocytosis Present; Target Cells 1+
[2018-11-25 08:15] LABS: BUN Creatinine Ratio 32.3 (10-20); Bilirubin,Total 1.4 mg/dl (0.2-1); Calcium 8.3 mg/dl (8.5-10.1); Creatinine Clr Calc Pharmacy 33.9 ml/min; Est GFR (African American) 52.9; Est GFR (Non-African American) 45.6; Total Protein 6.1 gm/dl (6.4-8.2)
[2018-11-25 08:22] LABS: Potassium 4.1 mmol/L (3.5-5.1)
--- NOTE | 2018-11-25 09:29 | Hospitalist Progress Note ---
Date of Service November 25, 2018 Assessment & Plan (1) Shock liver: Marked increase in LFTs coincide with the timing of his recent surgery. Suspect the acute liver injury/acute liver failure is from "shock" liver (could have had low flow state due to severe systolic CHF). Rise in INR to 1.8 initially, now improved to 1.6 LFTs all improved today GI consult by Dr. Lam appreciated. He agrees this is likely shock liver -not likely at all to be voriconazole -induced toxicity as he had only taken 2 doses of it prior to LFTs being found to be dramatically elevated Tylenol induced injury unlikely given the level being 20 -have since discontinued lipitor, tylenol, lorazepam, and voriconazole. -Continue to follow LFTs and INR in am. Patient is NOT a liver transplant candidate and transferring him to liver center would likely not be fruitful. Watch carefully for development of hepatic encephalopathy. (2) Coagulopathy: Secondary to shock liver. INR improved today to 1.6 -holding heparin SC. -Repeat INR in am. Supportive care. Could consider vitamin K (3) Acute kidney injury: From ATN in setting of low flow state from his severe CHF and recent surgery, especially with a lot of granular casts on UA Stable renal function today, non-oliguric, creatinine 1.48 With some proteinuria on UA -continue to HOLD lasix. BPs improved, have since restarted metoprolol (held for hypotension) -follow BMP (4) Anxiety: In light of shock liver will hold the ativan to avoid excess sedation. (5) Acute respiratory failure with hypoxia: Due to recent RLL pneumonia, decompensated CHF (improved/resolved), COPD, recent surgery, pleural effusion, etc. 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 Unfortunately had to stop the voriconazole in light of acute liver injury. Dr. Rodriguez aware of this. Likely heavily contributing to failure to thrive and anorexia. -Starting hepatically dosed caspofungin today after discussion with Dr. Rodriguez and pharmacist-it will be 50 mg IV x1 now and then 35 mg IV every 24 hours after that (7) Acute on chronic systolic (congestive) heart failure: Continues to appear compensated today. Due to acute kidney injury and low BP had to hold his BB and lasix -Have since restarted metoprolol -continue to hold lasix AT VERY HIGH RISK of decompensation from volume standpoint, although stable today with his weight times 4 days (8) Severe protein-calorie malnutrition: ongoing issue. due to recurrent pneumonia, fungal infection, probable depression, etc. (9) Cavitary lesion of lung: CHATA. s/p left superior anterior Eloesser flap. with associated fungal ball. continue dressing changes to flap and postoperative management as per thoracic surgery (10) DM II (diabetes mellitus, type II), controlled: With hypoglycemia and then with hyperglycemia -Continue Lantus 5 units qAM rather than qhs as AM glucose tends to be lower -continue same supplemental pre-meal insulin (11) COPD (chronic obstructive pulmonary disease): no exacerbation at this time. (12) CKD stage 3 due to type 2 diabetes mellitus: baseline CrCl low to mid 30s, with GHANSHYAM as above -Follow BMP -Avoid nephrotoxins i.e. NSAIDs -Renally dose medications (13) CAD (coronary artery disease): no obvious ischemic symptoms at this time. s/p cath last month with stable CAD. -continue ASA metoprolol -holding statin for shock liver (14) RLL pneumonia: s/p complete course of IV antibiotic therapy this admission. clinically stable/resolved. (15) Nonsustained ventricular tachycardia: Resolved with restarting metoprolol. Were completely asymptomatic With known EF of 15% and not a good candidate for ICD as per cardiology -Stable to transfer off telemetry (16) Anemia: Hgb stable today at 8.9 -secondary to Fe def and of chronic disease -continue FeSO4 325mg bid -follow CBC (17) HLD (hyperlipidemia): holding statin due to shock liver as above (18) BPH (benign prostatic hyperplasia): continue finasteride PVRs here have been next to nothing despite c/o urinary urgency, UA neg for infection (19) DVT prophylaxis: holding heparin due to coagulopathy from shock liver -Continue SCDs Dispo-stable for transfer to surgical floor Palliative Care Medicine following and addressing goals of care FULL CODE Subjective Patient reports feeling a little better today, is eating more. Thinks his breathing is improved, less short of breath. No chest pain at the surgical site. No abdominal pain. He is moving his bowels regularly and able to void. He did not ambulate the halls yesterday after I saw him. He states "no one got me up." Telemetry with normal sinus rhythm, PVCs but no runs of V. tach, rates in the 90s to low 100s Review of Systems All systems reviewed & are unremarkable except as noted in HPI & below Physical Exam 2 Vital Signs (Past 24 Hours): Last Vital Signs Temp 36.6 C 11/25/18 07:02 Pulse 98 H 11/25/18 07:02 Resp 18 11/25/18 07:02 BP 98/67 L 11/25/18 07:02 Pulse Ox 95 11/25/18 07:02 Constitutional: + ill appearing (chronically ), + thin and + cachectic; no acute distress Eyes: PERRL, conjunctivae normal, anicteric sclerae ENMT: external ear and nose normal, oropharynx normal Neck: trachea midline, no thyromegaly Respiratory: normal respiratory effort Auscultation: no crackles and no wheezes Cardiovascular: RRR, no murmur, no edema Chest (Breasts): Chest: + abnormal inspection of chest (Left superior anterior chest wall with thick dressing in place, C/D/I) Gastrointestinal (Abdomen): normal bowel sounds, soft, nontender, no hepatosplenomegaly Musculoskeletal: Extremities: extremities normal to inspection; no cyanosis and no clubbing Skin: no rashes, warm and dry Neurologic: moves all extremities and awake; no focal motor deficits Psychiatric: A+Ox3, euthymic affect Results & Data Laboratory Results 11/25/18 11/25/18 11/25/18 Range/Units 11:19 07:24 07:20 WBC (4.8-10.8) K/uL RBC (4.7-6.1) M/uL Hgb (14.0-18.0) g/dL Hct (42-52) % MCV (80-100) fL MCH (25-34) pg MCHC (32-36) g/dL RDW Std Deviation (36.4-46.3) fL RDW Coeff of Molly (11.5-14.5) % Plt Count (130-400) K/uL MPV (7.4-10.4) fL Immature Gran % (Auto) % Neut % (Auto) % Lymph % (Auto) % [place] % (Auto) % Eos % (Auto) % Baso % (Auto) % Immature Gran # (Auto) (0.00-0.02) K/uL Neut # (Auto) (1.4-6.5) K/uL Lymph # (Auto) (1.2-3.4) K/uL [place] # (Auto) (0.11-0.59) K/uL Eos # (Auto) (0-0.5) K/uL Baso # (Auto) (0-0.2) K/uL Anisocytosis Target Cells PT (9.0-12.0) Seconds INR (0.9-1.1) Sodium Cancelled (136-145) mmol/L Potassium Cancelled (3.5-5.1) mmol/L Chloride Cancelled (98-107) mmol/L Carbon Dioxide Cancelled (21-32) mmol/L Anion Gap Cancelled (3-11) BUN Cancelled (7-18) mg/dl Creatinine Cancelled (0.6-1.4) mg/dl Est Cr Clr Drug Dosing Cancelled ml/min Est GFR ( Amer) Cancelled Est GFR (Non-Af Amer) Cancelled BUN/Creatinine Ratio Cancelled (10-20) Glucose Cancelled (70-99) mg/dl POC Glucose 165 H 85 (70-99) Calcium Cancelled (8.5-10.1) mg/dl Magnesium (1.8-2.4) mg/dl Total Bilirubin (0.2-1) mg/dl Direct Bilirubin (0-0.2) mg/dl AST (15-37) U/L ALT (12-78) U/L Alkaline Phosphatase (45-117) U/L Total Protein (6.4-8.2) gm/dl Albumin (3.4-5.0) gm/dl 11/25/18 11/25/18 11/25/18 Range/Units 07:20 07:20 07:20 WBC 9.84 (4.8-10.8) K/uL RBC 3.13 L (4.7-6.1) M/uL Hgb 8.9 L (14.0-18.0) g/dL Hct 27.7 L (42-52) % MCV 88.5 (80-100) fL MCH 28.4 (25-34) pg MCHC 32.1 (32-36) g/dL RDW Std Deviation 73.8 H (36.4-46.3) fL RDW Coeff of Molly 23.4 H (11.5-14.5) % Plt Count 144 (130-400) K/uL MPV 11.2 H (7.4-10.4) fL Immature Gran % (Auto) 0.8 % Neut % (Auto) 78.4 % Lymph % (Auto) 8.4 % [place] % (Auto) 11.9 % Eos % (Auto) 0.4 % Baso % (Auto) 0.1 % Immature Gran # (Auto) 0.08 H (0.00-0.02) K/uL Neut # (Auto) 7.71 H (1.4-6.5) K/uL Lymph # (Auto) 0.83 L (1.2-3.4) K/uL [place] # (Auto) 1.17 H (0.11-0.59) K/uL Eos # (Auto) 0.04 (0-0.5) K/uL Baso # (Auto) 0.01 (0-0.2) K/uL Anisocytosis Present Target Cells 1+ PT 15.3 H (9.0-12.0) Seconds INR 1.6 H (0.9-1.1) Sodium 136 (136-145) mmol/L Potassium 4.1 (3.5-5.1) mmol/L Chloride 101 (98-107) mmol/L Carbon Dioxide 27 (21-32) mmol/L Anion Gap 8.0 (3-11) BUN 48 H (7-18) mg/dl Creatinine 1.48 H (0.6-1.4) mg/dl Est Cr Clr Drug Dosing 33.9 ml/min Est GFR ( Amer) 52.9 Est GFR (Non-Af Amer) 45.6 BUN/Creatinine Ratio 32.3 H (10-20) Glucose 81 (70-99) mg/dl POC Glucose (70-99) Calcium 8.3 L (8.5-10.1) mg/dl Magnesium 2.2 (1.8-2.4) mg/dl Total Bilirubin 1.4 H (0.2-1) mg/dl Direct Bilirubin 0.7 H (0-0.2) mg/dl AST 942 H (15-37) U/L ALT 995 H (12-78) U/L Alkaline Phosphatase 907 H (45-117) U/L Total Protein 6.1 L (6.4-8.2) gm/dl Albumin 2.2 L (3.4-5.0) gm/dl 11/24/18 11/24/18 11/24/18 Range/Units 20:14 16:23 16:16 WBC (4.8-10.8) K/uL RBC (4.7-6.1) M/uL Hgb (14.0-18.0) g/dL Hct (42-52) % MCV (80-100) fL MCH (25-34) pg MCHC (32-36) g/dL RDW Std Deviation (36.4-46.3) fL RDW Coeff of Molly (11.5-14.5) % Plt Count (130-400) K/uL MPV (7.4-10.4) fL Immature Gran % (Auto) % Neut % (Auto) % Lymph % (Auto) % [place] % (Auto) % Eos % (Auto) % Baso % (Auto) % Immature Gran # (Auto) (0.00-0.02) K/uL Neut # (Auto) (1.4-6.5) K/uL Lymph # (Auto) (1.2-3.4) K/uL [place] # (Auto) (0.11-0.59) K/uL Eos # (Auto) (0-0.5) K/uL Baso # (Auto) (0-0.2) K/uL Anisocytosis Target Cells PT (9.0-12.0) Seconds INR (0.9-1.1) Sodium (136-145) mmol/L Potassium (3.5-5.1) mmol/L Chloride (98-107) mmol/L Carbon Dioxide (21-32) mmol/L Anion Gap (3-11) BUN (7-18) mg/dl Creatinine (0.6-1.4) mg/dl Est Cr Clr Drug Dosing ml/min Est GFR ( Amer) Est GFR (Non-Af Amer) BUN/Creatinine Ratio (10-20) Glucose (70-99) mg/dl POC Glucose 192 H 244 H 254 H (70-99) Calcium (8.5-10.1) mg/dl Magnesium (1.8-2.4) mg/dl Total Bilirubin (0.2-1) mg/dl Direct Bilirubin (0-0.2) mg/dl AST (15-37) U/L ALT (12-78) U/L Alkaline Phosphatase (45-117) U/L Total Protein (6.4-8.2) gm/dl Albumin (3.4-5.0) gm/dl _ (1) BPH (benign prostatic hyperplasia) Lower urinary tract symptom detail: Lower urinary tract symptom presence: symptoms absent Qualified Code(s): N40.0 - Benign prostatic hyperplasia without lower urinary tract symptoms (2) CAD (coronary artery disease) Associated angina: without angina Coronary Disease-Associated Artery/Lesion type: [place] artery [place] vs. transplanted heart: [place] heart Qualified Code (s): I25.10 - Atherosclerotic heart disease of [place] coronary artery without angina pectoris (3) Anemia Anemia type: other cause Bone marrow failure anemia type: Chronic kidney disease stage: Folate deficiency anemia type: Hemolytic anemia type: Iron deficiency anemia type: Other causes of anemia: other cause, not classified Vitamin B12 deficiency anemia type: Qualified Code(s): D64.89 - Other specified anemias (4) HLD (hyperlipidemia) Hyperlipidemia type: unspecified Qualified Code(s): E78.5 - Hyperlipidemia, unspecified (5) DM II (diabetes mellitus, type II), controlled Chronic kidney disease stage: stage 3 (moderate) Diabetes mellitus complication detail: with chronic kidney disease Diabetes mellitus complication status: with kidney complications Diabetes mellitus intermediate card tender insulin use: without intermediate use Diabetes mellitus macular edema: Diabetic retinopathy severity: Laterality: Proliferative retinopathy type: Qualified Code(s): E11.22 - Type 2 diabetes mellitus with diabetic chronic kidney disease; N18.3 - Chronic kidney disease, stage 3 (moderate) (6) COPD (chronic obstructive pulmonary disease) COPD type: chronic bronchitis Chronic bronchitis type: unspecified Emphysema type: Qualified Code(s): J42 - Unspecified chronic bronchitis (7) RLL pneumonia Aspiration pneumonia type: Pneumonia type: due to unspecified organism Qualified Code(s): J18.1 - Lobar pneumonia, unspecified organism
[2018-11-25] MEDS: METOPROLOL SUCC 25MG EXT REL TAB PO SCH (09:44)
[2018-11-25] MEDS ORDERED: CASPOFUNGIN 50 MG in SODIUM CHLORIDE 0.9% 250 ML IV ONE (10:00)
--- NOTE | 2018-11-25 11:01 | Progress Note ---
DATE: 11/25/2018 Mr. Aden was seen today on 11/25/2018. He states he is feeling a bit better. Dr. Zambrano stopped several medications yesterday and he feels better today. He is able to eat better. His protein stores are terrible with an albumin of 2.2; however, he states that he is hungrier today and has had no nausea or anorexia this morning. I reviewed his flap and I am fairly pleased with it. He still is leaking air from this and this could take a while for this to completely heal, but his protein stores are going to be most important to healing than our dressing changes. At this point, it would be good to get him up walking. He is doing without oxygen at times, although he has a psychological dependence, which he freely admits. At this point, I am pleased with him. He had an x-ray 2 days ago and I think we are going to see some slow, but steady clearing of these infiltrates. I think we can get him off of the oxygen. I think rehabilitation would be a good option for this patient once he settles down more. At this point, I am pleased with him. He is a very weak and debilitated man. DOMENICA
[2018-11-26 05:56] LABS: Basophils # (auto) 0.01 K/uL (0-0.2); Basophils % (auto) 0.1 %; Eosinophils # (auto) 0.04 K/uL (0-0.5); Eosinophils % (auto) 0.4 %; Hematocrit (blood only) 27.5 % (42-52); Hemoglobin 8.7 g/dL (14.0-18.0); Immature Granulocytes # (auto) 0.07 K/uL (0.00-0.02); Immature Granulocytes % (auto) 0.8 %; Lymphocytes # (auto) 0.48 K/uL (1.2-3.4); Lymphocytes % (auto) 5.3 %; Mean Corpuscular Hgb Conc 31.6 g/dL (32-36); Monocytes # (auto) 1.76 K/uL (0.11-0.59); Monocytes % (auto) 19.3 %; Neutrophils # (auto) 6.74 K/uL (1.4-6.5); Neutrophils % (auto) 74.1 %; Platelet Count 137 K/uL (130-400); RDW Coefficient of Variation 23.8 % (11.5-14.5); RDW Standard Deviation 74.3 fL (36.4-46.3); Red Blood Count 3.09 M/uL (4.7-6.1)
[2018-11-26 06:11] LABS: INR 1.5 (0.9-1.1); Prothrombin Time 14.4 Seconds (9.0-12.0)
[2018-11-26 06:16] LABS: Anisocytosis Present
[2018-11-26 06:30] LABS: Albumin Level 2.2 gm/dl (3.4-5.0); BUN Creatinine Ratio 33.6 (10-20); Bilirubin Direct 0.7 mg/dl (0-0.2); Calcium 8.4 mg/dl (8.5-10.1); Creatinine Clr Calc Pharmacy 36.6 ml/min; Est GFR (African American) 58.1; Est GFR (Non-African American) 50.1; Magnesium 1.9 mg/dl (1.8-2.4); Potassium 3.9 mmol/L (3.5-5.1)
[2018-11-26 06:33] LABS: Bilirubin,Total 1.4 mg/dl (0.2-1); Phosphorus 2.5 mg/dl (2.5-4.9)
[2018-11-26] MEDS: LACTOBACILLUS ACIDOPHILUS (FLORANEX) TAB PO SCH ×3 (09:00→17:47)
[2018-11-26] MEDS: CYANOCOBALAMIN 500 MCG TABLET (VITAMIN B-12) PO SCH (09:00)
[2018-11-26] MEDS: PANTOprazole 40 MG TAB PO SCH (09:01)
[2018-11-26] MEDS: CEROVITE ADV FORMULA TAB PO SCH (09:01)
[2018-11-26] MEDS: METOPROLOL SUCC 25MG EXT REL TAB PO SCH (09:01)
[2018-11-26] MEDS: ASPIRIN 81 MG ECTAB PO SCH (09:02)
[2018-11-26] MEDS: FINASTERIDE 5 MG TAB PO SCH (09:02)
[2018-11-26] MEDS: INSULIN GLARGINE SOLOSTAR 100 UNITS/ML 3 ML PEN SC SCH (09:03)
[2018-11-26] MEDS: MAGNESIUM OXIDE 400 MG TAB PO SCH (09:03)
[2018-11-26] MEDS: FERROUS SULFATE 325 MG TAB PO SCH ×2 (09:03→21:13)
[2018-11-26] MEDS: INSULIN ASPART 100 UNITS/ML 3 ML PEN SC SCH ×4 (09:06→21:20)
[2018-11-26] MEDS: CASPOFUNGIN 35 MG in SODIUM CHLORIDE 0.9% 250 ML IV SCH (09:56)
--- NOTE | 2018-11-26 10:38 | Palliative Care Progress Note ---
Date of Service November 26, 2018 Assessment & Plan (1) Palliative care encounter: -72 year old male known to our service from his prior admissions who presented on 127 with increased shortness of breath and increased lower edema. Patient had just been discharged from senior care facility for rehab a few days prior to admission. Patient's admission in October was complicated by STEMI and required intubation - pt improved and went to rehab. -LFTs improved over weekend and Caspofungin restarted. His overall condition remains about the same. -Met at length today with patient and his in room 386. Patient is sitting in chair. He is SOB at rest and is not able to speak in full sentences. -Talked about goals of care. Patient and his agree that he has been on a steady decline in last year, especially since May. We are stuck in the cycle of treating his complicated medical problems but running into side effects of medications/treatments. Patient does not feel that he really "gets better" from being in hospital. -Discussed hospice care once patient is at home. He and his are in agreement. -Discussed CODE STATUS. Patient now wishes to be a DO NOT RESUSCITATE. He stated , "When it's my time to go, just let me go." His is in agreement with this. -Patient does want to continue treatment for a few more days here in the hospital to see if there is any improvement at all. He thinks that Dr. Srivastava may have said there were a "couple things he wanted to try first." Once we have him as well as we can get him, the goal is to go home with his and family on hospice care. -Will continue to follow. (2) Cavitary pneumonia: Status post Eloesser flap-respiratory status improved (3) Aspergillus fumigatus: (4) CHF (congestive heart failure): (5) Elevated LFTs: (6) Ischemic cardiomyopathy: EF 15%-patient would qualify for hospice based on this diagnosis alone, patient on maximum medical therapy. (7) Small cell lung cancer: Subjective Patient sitting up in chair today. Had an okay weekend. His was at bedside. Please see A&P. Constitutional: + weakness and + anorexia (poor appetite) Ear, Nose, Mouth, Throat: no dysphagia Respiratory: + cough, + dyspnea and + dyspnea on exertion Cardiovascular: no chest pain and no edema Gastrointestinal: no abdominal pain, no nausea and no vomiting Neurologic: no confusion Psychiatric: no anxiety Physical Exam 2 Vital Signs (Past 24 Hours): Last Vital Signs Temp 36.4 C L 11/26/18 08:01 Pulse 88 11/26/18 08:01 Resp 20 11/26/18 08:01 BP 96/62 L 11/26/18 08:01 Pulse Ox 95 11/26/18 08:01 Constitutional: + ill appearing (chronically), + frail appearing and + malnourished ENMT: Ears: no hearing impairment Neck: normal visual inspection and trachea midline Respiratory: + labored breathing and + tachypneic exaggerated, loud bronchovesicular breath sounds in left side around Eloesser flap Cardiovascular: RRR, no murmur, no edema Gastrointestinal (Abdomen): normal bowel sounds, soft, nontender, no hepatosplenomegaly Neurologic: awake; not confused Psychiatric: A+Ox3, euthymic affect Time Spent Midlevel 70 minutse with >50% of time spent at bedside with patient and discussing condition, GOC, and CODE STATUS. _ (1) CHF (congestive heart failure) Heart failure chronicity: acute on chronic Heart failure type: unspecified Qualified Code(s): I50.9 - Heart failure, unspecified
[2018-11-26] MEDS ORDERED: FUROSEMIDE 20 MG TAB PO ONE (11:47)
--- NOTE | 2018-11-26 18:53 | Progress Note ---
DATE: 11/26/2018 Mr. Aden was seen today. He remains quite weak. I evaluated his Eloesser flap. There are still some air leaks. The tissue is not cleaning up as much as I would want but I think this is more a reflection of his albumin of 2.2 that it is of a clean the wound. However, having said that, I am going to take him back to the operating room later this week and implant pharmaceutical grade calcium sulfate beads with antifungal and antibacterial agents embedded in them. We will then place a mesh dressing over this and apply a wound VAC. I think this should be helpful in decreasing the size of the wound and getting it to heal. I had a long discussion with the patient, his and his daughter. I think it is important to note that this patient has no evidence of metastatic disease. In addition, he has withstood quite a bit since being here and is able to ambulate. He is also eating better since we changed his medications. Again, it is my hope that he will slowly recover from the insult of having his bronchial tree contaminated with this fluid on a recurrent basis.
--- NOTE | 2018-11-26 20:26 | Infectious Disease Progress Nt ---
Date of Service November 26, 2018 Assessment & Plan (1) Cavitary pneumonia: Patient with cavitary pneumonia with pathologic findings consistent with diagnosis of Aspergillus infection. Patient to be treated with IV caspofungin given intolerance of voriconazole. Length of IV antibiotics will be determined by clinical response. Will follow. (2) Aspergillus fumigatus: Subjective Patient seen in follow-up for progressive cavitary pneumonia. Now status post flap procedure. Expected postop discomfort. Still shortness of breath. Pathology reveals findings consistent with large fungus ball. Appearance most consistent with Aspergillus. Patient was started on voriconazole but developed abrupt increase in liver enzymes, and as discussed now on caspofungin. Review of Systems All systems reviewed & are unremarkable except as noted in HPI & below Physical Exam 2 Vital Signs (Past 24 Hours): Last Vital Signs Temp 36.2 C L 11/26/18 15:46 Pulse 99 H 11/26/18 15:46 Resp 16 11/26/18 15:46 BP 96/70 L 11/26/18 15:46 Pulse Ox 94 11/26/18 18:57 Constitutional: WD/WN, vitals as above comfortable; no acute distress Eyes: PERRL, conjunctivae normal, anicteric sclerae ENMT: external ear and nose normal, oropharynx normal Neck: trachea midline, no thyromegaly neck nontender Respiratory: no respiratory distress and no dullness to percussion Auscultation: + rales (Both bases) Cardiovascular: Rate/Rhythm: regular rate and regular rhythm Heart Sounds: normal S1 and normal S2; no gallop, no murmur and no cardiac rub Vessels: normal peripheral pulses; no JVD Gastrointestinal (Abdomen): normal bowel sounds, soft, nontender, no hepatosplenomegaly Musculoskeletal: no cyanosis or clubbing, extremities motor strength 5/5 Spine: thoracic spine normal to inspection and lumbar spine normal to inspection ; no cervical spinal tenderness Skin: no rashes, warm and dry normal turgor; no lesions Neurologic: patellar DTR's 2+ bilat, sensation intact no focal motor deficits Psychiatric: A+Ox3, euthymic affect Orientation: cooperative Lymphatic: no cervical or axillary lymphadenopathy no inguinal lymphadenopathy Results & Data Laboratory Results Short CBC 11/26/18 Range/Units 05:23 WBC 9.10 (4.8-10.8) K/uL Hgb 8.7 L (14.0-18.0) g/dL Hct 27.5 L (42-52) % Plt Count 137 (130-400) K/uL BMP 11/26/18 05:23 Sodium 134 L Potassium 3.9 Chloride 100 Carbon Dioxide 24 BUN 46 H Creatinine 1.37 Glucose 118 H Calcium 8.4 L Liver Function 11/26/18 Range/Units 05:23 Total Bilirubin 1.4 H (0.2-1) mg/dl Direct Bilirubin 0.7 H (0-0.2) mg/dl AST 547 H (15-37) U/L ALT 788 H (12-78) U/L Alkaline Phosphatase 939 H (45-117) U/L Albumin 2.2 L (3.4-5.0) gm/dl Diagnostic Findings Microbiology 11/19/18 14:13 Pleural Fluid Fungal Smear - Final 11/19/18 14:13 Pleural Fluid Fungal Culture - Preliminary No yeast or fungus isolated - Report 1, Additional Report to Follow. 11/19/18 14:45 Lung,Left Fungal Smear - Final 11/19/18 14:45 Lung,Left Fungal Culture - Preliminary No yeast or fungus isolated - Report 1, Additional Report to Follow. 11/19/18 14:13 Pleural Fluid Gram Stain - Final 11/19/18 14:13 Pleural Fluid Aerobic and Anaerobic Culture - Final No growth 11/19/18 14:45 Lung,Left Gram Stain - Final 11/19/18 14:45 Lung,Left Aerobic and Anaerobic Culture - Final No growth 11/19/18 14:13 Pleural Fluid Acid Fast Bacilli Smear - Final 11/19/18 14:13 Pleural Fluid Acid Fast Bacilli Culture - Preliminary No Acid-Fast Bacilli Isolated - Report 1, Additional Report to Follow. 11/19/18 14:45 Lung,Left Acid Fast Bacilli Smear - Final 11/19/18 14:45 Lung,Left Acid Fast Bacilli Culture - Preliminary No Acid-Fast Bacilli Isolated - Report 1, Additional Report to Follow. 11/11/18 16:38 Blood Blood Culture - Final No growth 11/11/18 16:38 Blood Blood Culture - Final No growth cc: ~ XR chest 1V portable CLINICAL HISTORY: cavitary lung lesion dyspnea COMPARISON STUDY: 11/20/2017 FINDINGS: Slight increase in subcutaneous emphysema left hemithorax and left supraclavicular region. Unchanged appearance to the lungs which has been described multiple times previously. No evidence pneumothorax. IMPRESSION: Slight increase in chest wall subcutaneous emphysematous change. Study is otherwise stable. No evidence pneumothorax. The above report was generated using voice recognition software. It may contain grammatical, syntax or spelling errors. Electronically signed by: Ezekiel Collier M.D. 11/23/2018 7:17 AM Dictated: 11/23/18 0716 Transcribed: 11/23/18 0716
--- NOTE | 2018-11-26 21:02 | Hospitalist Progress Note ---
Date of Service November 26, 2018 Assessment & Plan (1) Shock liver: Likely due to low flow state in setting of recent thoracic surgery. LFTs and INR slowly improving. lipitor, tylenol, and voriconazole all on hold. Repeat LFTs and INR in am. No evidence of hepatic encephalopathy on examination. (2) Coagulopathy: 2nd to shock liver. INR slowly improving. Repeat INR in am. Supportive care. (3) Acute kidney injury: ATN in setting of low flow state from his severe CHF and recent surgery. Improving day to day. Resume lasix today (has JVD, edema, etc). Repeat BMP am. (4) Anxiety: Morphine elixir at HS to help with dyspnea and sleep. (5) Acute respiratory failure with hypoxia: Due to recent RLL pneumonia, decompensated CHF, COPD, recent surgery, pleural effusion, etc. Continue NC O2 - would cont at d/c in light of impending hospice status. (6) Aspergillus fumigatus: Path confirmed from the CHATA cavity. Voriconazole stopped due to acute liver injury. Dr. Rodriguez changed his meds to caspofungin IV. (7) Acute on chronic systolic (congestive) heart failure: Continue BB. Resume lasix today. (8) Severe protein-calorie malnutrition: ongoing issue. due to recurrent pneumonia, fungal infection, probable depression, etc. Diet as tolerated. (9) Cavitary lesion of lung: CHATA. s/p left superior anterior Eloesser flap. with associated fungal ball. continue dressing changes to flap. (10) DM II (diabetes mellitus, type II), controlled: No issues at this time. (11) COPD (chronic obstructive pulmonary disease): no exacerbation at this time. (12) CKD stage 3 due to type 2 diabetes mellitus: baseline CrCl low to mid 30s BMP in am for stability and due to resumption of lasix (13) CAD (coronary artery disease): no obvious ischemic symptoms at this time. s/p cath last month with stable CAD. (14) RLL pneumonia: clinically stable/resolved. (15) DVT prophylaxis: INR still high from recent shock liver /daughter aware of decision by patient to select hospice at discharge dispo planning Subjective pt met with palliative care this am - IS agreeable to home with hospice we are now working out details of arranging this he had mixed feelings/emotions this am during my rounds /daughter at bedside stated "I feel a little better" but "not much better" main complaint is that of insomnia and continued episodes of dyspnea w/ exertion Constitutional: no fever Respiratory: + dyspnea on exertion; no cough Cardiovascular: no chest pain Gastrointestinal: no abdominal pain and no diarrhea/loose stools Physical Exam 2 Vital Signs (Past 24 Hours): Last Vital Signs Temp 36.2 C L 11/26/18 15:46 Pulse 99 H 11/26/18 15:46 Resp 16 11/26/18 15:46 BP 96/70 L 11/26/18 15:46 Pulse Ox 94 11/26/18 18:57 Constitutional: + ill appearing and + cachectic; no acute distress ENMT: external ear and nose normal, oropharynx normal Respiratory: Auscultation: + diminished lung sounds (bases) and + rales (bases ) Cardiovascular: Rate/Rhythm: regular rhythm and + tachycardic Heart Sounds : normal S1 and normal S2 Vessels: + JVD, posterior tibial pulses present and dorsalis pedis pulses present Extremities: + edema Chest (Breasts): Additional Comments: flap, left anterior chest, w/ dressings in place Gastrointestinal (Abdomen): normal bowel sounds, soft, nontender, no hepatosplenomegaly Psychiatric: Orientation: alert and oriented x 3 Affect: + depressed affect Results & Data Laboratory Results Laboratory Results - last 24 hr 11/26/18 11/26/18 11/26/18 05:23 05:23 05:23 WBC 9.10 RBC 3.09 L Hgb 8.7 L Hct 27.5 L MCV 89.0 MCH 28.2 MCHC 31.6 L RDW Std Deviation 74.3 H RDW Coeff of Molly 23.8 H Plt Count 137 MPV 11.0 H Immature Gran % (Auto) 0.8 Neut % (Auto) 74.1 Lymph % (Auto) 5.3 [place] % (Auto) 19.3 Eos % (Auto) 0.4 Baso % (Auto) 0.1 Immature Gran # (Auto) 0.07 H Neut # (Auto) 6.74 H Lymph # (Auto) 0.48 L [place] # (Auto) 1.76 H Eos # (Auto) 0.04 Baso # (Auto) 0.01 Anisocytosis Present PT 14.4 H INR 1.5 H Sodium 134 L Potassium 3.9 Chloride 100 Carbon Dioxide 24 Anion Gap 10.0 BUN 46 H Creatinine 1.37 Est Cr Clr Drug Dosing 36.6 Est GFR ( Amer) 58.1 Est GFR (Non-Af Amer) 50.1 BUN/Creatinine Ratio 33.6 H Glucose 118 H POC Glucose Calcium 8.4 L Phosphorus 2.5 Magnesium 1.9 Total Bilirubin 1.4 H Direct Bilirubin 0.7 H AST 547 H ALT 788 H Alkaline Phosphatase 939 H Total Protein 6.0 L Albumin 2.2 L 11/26/18 11/26/18 11/26/18 08:00 11:53 17:18 WBC RBC Hgb Hct MCV MCH MCHC RDW Std Deviation RDW Coeff of Molly Plt Count MPV Immature Gran % (Auto) Neut % (Auto) Lymph % (Auto) [place] % (Auto) Eos % (Auto) Baso % (Auto) Immature Gran # (Auto) Neut # (Auto) Lymph # (Auto) [place] # (Auto) Eos # (Auto) Baso # (Auto) Anisocytosis PT INR Sodium Potassium Chloride Carbon Dioxide Anion Gap BUN Creatinine Est Cr Clr Drug Dosing Est GFR ( Amer) Est GFR (Non-Af Amer) BUN/Creatinine Ratio Glucose POC Glucose 133 H 184 H 159 H Calcium Phosphorus Magnesium Total Bilirubin Direct Bilirubin AST ALT Alkaline Phosphatase Total Protein Albumin 11/26/18 20:33 WBC RBC Hgb Hct MCV MCH MCHC RDW Std Deviation RDW Coeff of Molly Plt Count MPV Immature Gran % (Auto) Neut % (Auto) Lymph % (Auto) [place] % (Auto) Eos % (Auto) Baso % (Auto) Immature Gran # (Auto) Neut # (Auto) Lymph # (Auto) [place] # (Auto) Eos # (Auto) Baso # (Auto) Anisocytosis PT INR Sodium Potassium Chloride Carbon Dioxide Anion Gap BUN Creatinine Est Cr Clr Drug Dosing Est GFR ( Amer) Est GFR (Non-Af Amer) BUN/Creatinine Ratio Glucose POC Glucose 165 H Calcium Phosphorus Magnesium Total Bilirubin Direct Bilirubin AST ALT Alkaline Phosphatase Total Protein Albumin
[2018-11-26] MEDS: MoRPHine SULFATE 5 MG/0.25 ML UDP PO SCH (21:19)
[2018-11-27 07:28] LABS: INR 1.4 (0.9-1.1)
--- NOTE | 2018-11-27 07:40 | XRay Report ---
XR chest 1V portable CLINICAL HISTORY: pneumonia COMPARISON STUDY: 11/23/2018 FINDINGS: The heart remains enlarged. There is left-sided subcutaneous emphysema. There is left-sided volume loss and apical pleural thickening. There are persistent extensive right lower lung zone airs pace opacities. There is blunting of both lateral costophrenic angles. There is slight indistinctness of the left hemidiaphragm. There is underlying pulmonary emphysema.[ IMPRESSION: 1. Pulmonary emphysema 2. Decreasing left-sided subcutaneous emphysema 3. Left lung volume loss likely postsurgical 4. Stable left apical pleural thickening 5. Stable blunting of the lateral costophrenic angles 6. Extensive right lower lung zone airspace opacities unchanged 7. Stable ill-definition of the left hemidiaphragm, suggesting left basilar atelectasis/consolidation . Electronically signed by: Jonny Nath M.D. 11/27/2018 7:39 AM
[2018-11-27 07:51] LABS: Albumin Globulin Ratio 0.6 (0.9-2); Albumin Level 2.2 gm/dl (3.4-5.0); BUN Creatinine Ratio 33.5 (10-20); Bilirubin,Total 1.2 mg/dl (0.2-1); Calcium 8.7 mg/dl (8.5-10.1); Creatinine Clr Calc Pharmacy 34.3 ml/min; Est GFR (African American) 53.8; Est GFR (Non-African American) 46.4; Globulin 3.9 gm/dl (2.5-4.0); Potassium 3.8 mmol/L (3.5-5.1); Total Protein 6.1 gm/dl (6.4-8.2)
[2018-11-27] MEDS: LACTOBACILLUS ACIDOPHILUS (FLORANEX) TAB PO SCH ×3 (09:17→17:46)
[2018-11-27] MEDS: CYANOCOBALAMIN 500 MCG TABLET (VITAMIN B-12) PO SCH (09:17)
[2018-11-27] MEDS: FERROUS SULFATE 325 MG TAB PO SCH ×2 (09:17→20:59)
[2018-11-27] MEDS: PANTOprazole 40 MG TAB PO SCH (09:17)
[2018-11-27] MEDS: CEROVITE ADV FORMULA TAB PO SCH (09:17)
[2018-11-27] MEDS: ASPIRIN 81 MG ECTAB PO SCH (09:17)
[2018-11-27] MEDS: MAGNESIUM OXIDE 400 MG TAB PO SCH (09:17)
[2018-11-27] MEDS: METOPROLOL SUCC 25MG EXT REL TAB PO SCH (09:18)
[2018-11-27] MEDS: INSULIN GLARGINE SOLOSTAR 100 UNITS/ML 3 ML PEN SC SCH (09:18)
[2018-11-27] MEDS: FUROSEMIDE 20 MG TAB PO SCH (09:18)
[2018-11-27] MEDS: FINASTERIDE 5 MG TAB PO SCH (09:18)
[2018-11-27] MEDS: INSULIN ASPART 100 UNITS/ML 3 ML PEN SC SCH ×4 (09:19→20:59)
[2018-11-27] MEDS: CASPOFUNGIN 35 MG in SODIUM CHLORIDE 0.9% 250 ML IV SCH (10:20)
--- NOTE | 2018-11-27 10:32 | Surgery Progress Note ---
Date of Service November 27, 2018 Assessment & Plan (1) RLL pneumonia: Present on Admission?: Yes (2) Shock liver: Present on Admission?: No (3) Aspergillus fumigatus: Present on Admission?: Yes (4) Ischemic cardiomyopathy: Present on Admission?: Yes (5) Cavitary lesion of lung: The Eloesser flap looks good however the tissue at the base and on the lung does not look as good as I would have hoped for at this point. There is a lack of granulation tissue which is probably related to his poor protein stores , his catabolic state, and radiation with tissue destruction in his left upper lobe. I am going to lightly debride this wound on November 30 under local anesthesia in the operating room with sedation. We are also going to implant pharmaceutical grade calcium sulfate beads impregnated with an antifungal agent and antibiotics. We will then attached a wound VAC which I think will be very helpful. I explained this in detail to the patient. Present on Admission?: Yes (6) Small cell lung cancer: Present on Admission?: Yes Hung Heard feels better today. He states he is less short of breath when ambulating. On 2 L his oxygen saturation is 100%. He feels he is also eating better. He denies pain. Physical Exam 2 Vital Signs (Past 24 Hours): Last Vital Signs Temp 36.2 C L 11/27/18 07:28 Pulse 92 H 11/27/18 07:28 Resp 16 11/27/18 07:28 BP 93/66 L 11/27/18 07:28 Pulse Ox 100 11/27/18 07:28 Physical Exam: I closely inspected the left upper chest Eloesser flap. He still is leaking air. In addition I am not as pleased with the base of the wound. I would have expected this to have better granulation tissue at this point. His lungs sound better to me. He states his breathing is better although still quite dyspneic on exertion which I believe is multifactorial. He has no peripheral edema. Neurologically he is intact. _ (1) RLL pneumonia Pneumonia type: due to unspecified organism Aspiration pneumonia type: Qualified Code(s): J18.1 - Lobar pneumonia, unspecified organism
--- NOTE | 2018-11-27 14:09 | Palliative Care Progress Note ---
Date of Service November 27, 2018 Assessment & Plan (1) Palliative care encounter: -72 year old male known to our service from his prior admissions who presented on with increased shortness of breath and increased lower edema. Patient had just been discharged from senior care facility for rehab a few days prior to admission. Patient's admission in October was complicated by STEMI and required intubation - pt improved and went to rehab. -Plan is for patient to go to OR this week some time with Dr. Srivastava to have abx/antifungal beads placed in his Eloesser flap/wound and have wound vac applied. -Patient remains tired and weak. He still plans on eventually going home with his /family on hospice. -Will continue to follow and be supportive in any way. (2) Cavitary pneumonia: Status post Eloesser flap-respiratory status improved (3) Aspergillus fumigatus: Plan to continue voriconazole once LFTs improved (4) CHF (congestive heart failure): Acute on chronic CHF-Lasix on hold due to elevated BUN/creatinine (5) Elevated LFTs: May be partially due to for voriconazole versus component of shock liver- following LFTs (6) Ischemic cardiomyopathy: EF 15%-patient would qualify for hospice based on this diagnosis alone, patient on maximum medical therapy. (7) Small cell lung cancer: Stable Subjective Patient is sitting in chair. NO family at bedside. Patient states that the plan is for him to go back to OR on Monday. He is worried about the surgery, but willing to undergo it if there is any chance it could improve his condition. Constitutional: + weakness and + anorexia (poor appetite) Ear, Nose, Mouth, Throat: no dysphagia Respiratory: + cough, + dyspnea and + dyspnea on exertion Cardiovascular: + edema (improved); no chest pain Gastrointestinal: no abdominal pain, no nausea and no vomiting Musculoskeletal: + muscle weakness Neurologic: no confusion Psychiatric: + depression (feeling down about his situation); no anxiety Physical Exam 2 Vital Signs (Past 24 Hours): Last Vital Signs Temp 36.2 C L 11/27/18 07:28 Pulse 92 H 11/27/18 07:28 Resp 16 11/27/18 07:28 BP 93/66 L 11/27/18 07:28 Pulse Ox 100 11/27/18 07:28 Constitutional: + ill appearing (chronically), + frail appearing and + malnourished ENMT: Ears: no hearing impairment Neck: normal visual inspection and trachea midline Respiratory: + labored breathing and + tachypneic Cardiovascular: RRR, no murmur, no edema Gastrointestinal (Abdomen): normal bowel sounds, soft, nontender, no hepatosplenomegaly Neurologic: awake; not confused Psychiatric: A+Ox3, euthymic affect Time Spent Midlevel 25 minutes with >50% of time spent at bedside with patient discussing plan of care and collaborating with hospitalist physician to discuss case. _ (1) CHF (congestive heart failure) Heart failure chronicity: acute on chronic Heart failure type: unspecified Qualified Code(s): I50.9 - Heart failure, unspecified
[2018-11-27 16:40] LABS: Base Excess VBG 1.2 mEq/L; HCO3 VBG 26 mmol/L; PCO2 VBG 44 mmHg (38-50); PO2 VBG 34 mmHg; pH VBG 7.39 (7.36-7.41)
[2018-11-27 16:43] LABS: Oxygen Saturation VBG < 60.0 %
[2018-11-27 17:50] LABS: Appearance Urine Cloudy (Clear); Bacteria Urine Automated Negative (Negative); Bilirubin Urine Negative (Negative); Blood Urine Negative (Negative); Color Urine Yellow; Epithelial Cell Urine Auto >30 /lpf (0-5); Glucose Urine UA Negative (Negative); Ketones Urine Negative (Negative); Leukocyte Esterase Urine Negative (Negative); Nitrite Urine Negative (Negative); Protein Urine Negative (Negative); Specific Gravity Urine 1.017 (1.000-1.030); Urobilinogen Urine Negative (Negative)
[2018-11-27 18:05] LABS: Renal Epithelial Cells Urine 0-5 /lpf (0-5)
--- NOTE | 2018-11-27 20:29 | Hospitalist Progress Note ---
Date of Service November 27, 2018 Assessment & Plan (1) Altered mental status: The patient was quite sleepy today and just not himself. During past hospital stays this was sometimes the first sign of new-onset infection, shock, etc. Check lactate, VBG, ammonia, u/a, etc and re-eval. (2) Acute respiratory failure with hypoxia: Ongoing o2 requirement. 2nd to RLL pneumonia, severe CHF, recent left-sided lung surgery, large CHATA cavitation with fungal ball, etc. Cont o2 support. Present on Admission?: Yes (3) Shock liver: likely due to low-flow state in the setting of surgery last week. LFTs gradually improving. Had concomitant ATN as well. LFTs in am. Holding lipitor, tylenol, voriconazole, etc. (4) Coagulopathy: 2nd to shock liver. checking ammonia level today. INR this am continues to trend down. recheck INR in 48 hours. (5) Acute kidney injury: 2nd to ATN in setting of perioperative hypotension (presumed). creatinine continues to drop each day. BMP in am. (6) Insomnia: not a good candidate for any meds. however, in light of dyspnea, anxiety, pain - schedule PO morphine 5mg at HS. (7) RLL pneumonia: clinically resolved; completed full course of IV abx this admission. (8) Aspergillus fumigatus: fungal ball, CHATA. unable to use voriconazole in setting of shock liver. ID (Dr. Rodriguez) recommending daily IV caspofungin. I spoke with Dr. Rodriguez - ideally he would need 6-8 weeks of antifungal Rx w/ caspofungin. this will need to be addressed this week. (9) Acute on chronic systolic (congestive) heart failure: appears compensated today. PO lasix resumed yesterday. cont low-dose BB. (10) Cavitary lesion of lung: CHATA, s/p Left Anterior Eloesser Flap by Dr. Srivastava cont daily packing the CHATA cavity is the prior location of his lung cancer no cancer cells detected on recent path specimens (11) Small cell lung cancer: CHATA - history of such, s/p CHATA lobectomy 2 years ago (12) CAD (coronary artery disease): (13) PVD (peripheral vascular disease): (14) Physical deconditioning: ongoing has gotten severely deconditioned due to numerous comorbidities and frequent hospital stays rehab potential is poor given his extreme BEE even with just moving in the bed (15) Severe protein-calorie malnutrition: ongoing multifactorial (16) DVT prophylaxis: resume heparin 5000 BID (17) Complex care coordination: care d/w Dr. Srivastava, palliative care (Stephanie Barrera), and pt's by phone today. I appreciate Dr. Srivastava's assistance as well as Ms. Holly' s assistance with this gentleman's care. He has very little reserve, if any at this point, and is just coming off significant shock liver, coagulopathy, and ATN/acute renal failure. He is incredibly sensitive to even small doses of sedatives. I am concerned about potential for additional medical complications with any procedure of any type in the setting of still-recovering issues from last week ( again - shock liver, ATN, etc) and his ever-growing list of numerous comorbid conditions. Patient and his voiced that they understand all of this. At this point I believe the plan is still for home with hospice at discharge ( or SNF with hospice if patient's family cannot care for him at home) but the patient periodically states he "wants everything done to get better." I am unclear what the final plan will be with respect to the treatment of his fungal ball - this will need to be fully discussed over the next few days as well. Dr. Rodriguez's input on this is appreciated. Subjective patient sleepy during my visit today he would drift in and out of sleep he did indeed answer my questions and was able to give history but he didn't seem as good as yesterday denied any specific new complaints I spoke with Dr. Srivastava, palliative care, and his today either in person or phone patient aware Dr. Srivsatava planning a procedure on Monday and wants to proceed with this he again reports that he slept poorly last night staff mention he refused the morphine at bedtime Constitutional: + weakness Respiratory: + dyspnea and + dyspnea on exertion; no wheezing Cardiovascular: + dyspnea on exertion; no chest pain Gastrointestinal: no nausea, no vomiting and no diarrhea/loose stools Psychiatric: + depression and + abnormal sleep pattern Physical Exam 2 Vital Signs (Past 24 Hours): Last Vital Signs Temp 36.3 C L 11/27/18 15:44 Pulse 98 H 11/27/18 15:44 Resp 17 11/27/18 15:44 BP 100/60 11/27/18 15:44 Pulse Ox 94 11/27/18 15:44 Constitutional: + ill appearing, + thin and + cachectic; no acute distress sleepy today ENMT: external ear and nose normal, oropharynx normal Respiratory: Auscultation: + diminished lung sounds (bases - worse on left ); no rhonchi and no wheezes Cardiovascular: Rate/Rhythm: regular rate and regular rhythm Heart Sounds: normal S1 and normal S2; no murmur Vessels: posterior tibial pulses present and dorsalis pedis pulses present; no JVD Extremities: + edema (trace b/l; wearing TEDs today) Gastrointestinal (Abdomen): Inspection/Auscultation: abdomen normal to inspection and normal bowel sounds Percussion/Palpation: abdomen soft; no hepatomegaly, no splenomegaly and no abdominal mass Psychiatric: Orientation: alert; + not oriented x 3 (slight confusion today ) Affect: + depressed affect Results & Data Laboratory Results Laboratory Results - last 24 hr 11/26/18 11/27/18 11/27/18 20:33 07:05 07:05 Hgb 9.2 L PT 14.0 H INR 1.4 H VBG pH VBG pCO2 VBG pO2 VBG HCO3 VBG O2 Saturation VBG Base Excess Barometric Pressure Sodium Potassium Chloride Carbon Dioxide Anion Gap BUN Creatinine Est Cr Clr Drug Dosing Est GFR ( Amer) Est GFR (Non-Af Amer) BUN/Creatinine Ratio Glucose POC Glucose 165 H Lactate Calcium Total Bilirubin AST ALT Alkaline Phosphatase Ammonia Total Protein Albumin Globulin Albumin/Globulin Ratio Urine Color Urine Appearance Urine pH Ur Specific [place] Urine Protein Urine Glucose (UA) Urine Ketones Urine Blood Urine Nitrite Urine Bilirubin Urine Urobilinogen Ur Leukocyte Esterase Urine WBC (Auto) Urine RBC (Auto) U Hyaline Cast (Auto) U Epithel Cells (Auto) Urine Bacteria (Auto) Ur Renal Epithelial Cell Granular Casts 11/27/18 11/27/18 11/27/18 07:05 08:18 12:07 Hgb PT INR VBG pH VBG pCO2 VBG pO2 VBG HCO3 VBG O2 Saturation VBG Base Excess Barometric Pressure Sodium 136 Potassium 3.8 Chloride 103 Carbon Dioxide 25 Anion Gap 8.0 BUN 49 H Creatinine 1.46 H Est Cr Clr Drug Dosing 34.3 Est GFR ( Amer) 53.8 Est GFR (Non-Af Amer) 46.4 BUN/Creatinine Ratio 33.5 H Glucose 162 H POC Glucose 151 H 198 H Lactate Calcium 8.7 Total Bilirubin 1.2 H AST 301 H ALT 652 H Alkaline Phosphatase 895 H Ammonia Total Protein 6.1 L Albumin 2.2 L Globulin 3.9 Albumin/Globulin Ratio 0.6 L Urine Color Urine Appearance Urine pH Ur Specific [place] Urine Protein Urine Glucose (UA) Urine Ketones Urine Blood Urine Nitrite Urine Bilirubin Urine Urobilinogen Ur Leukocyte Esterase Urine WBC (Auto) Urine RBC (Auto) U Hyaline Cast (Auto) U Epithel Cells (Auto) Urine Bacteria (Auto) Ur Renal Epithelial Cell Granular Casts 11/27/18 11/27/18 11/27/18 16:17 16:17 16:17 Hgb PT INR VBG pH 7.39 VBG pCO2 44 VBG pO2 34 VBG HCO3 26 VBG O2 Saturation < 60.0 VBG Base Excess 1.2 Barometric Pressure 727.2 Sodium Potassium Chloride Carbon Dioxide Anion Gap BUN Creatinine Est Cr Clr Drug Dosing Est GFR ( Amer) Est GFR (Non-Af Amer) BUN/Creatinine Ratio Glucose POC Glucose Lactate 1.9 Calcium Total Bilirubin AST ALT Alkaline Phosphatase Ammonia 27.9 Total Protein Albumin Globulin Albumin/Globulin Ratio Urine Color Urine Appearance Urine pH Ur Specific [place] Urine Protein Urine Glucose (UA) Urine Ketones Urine Blood Urine Nitrite Urine Bilirubin Urine Urobilinogen Ur Leukocyte Esterase Urine WBC (Auto) Urine RBC (Auto) U Hyaline Cast (Auto) U Epithel Cells (Auto) Urine Bacteria (Auto) Ur Renal Epithelial Cell Granular Casts 11/27/18 11/27/18 17:30 17:35 Hgb PT INR VBG pH VBG pCO2 VBG pO2 VBG HCO3 VBG O2 Saturation VBG Base Excess Barometric Pressure Sodium Potassium Chloride Carbon Dioxide Anion Gap BUN Creatinine Est Cr Clr Drug Dosing Est GFR ( Amer) Est GFR (Non-Af Amer) BUN/Creatinine Ratio Glucose POC Glucose 156 H Lactate Calcium Total Bilirubin AST ALT Alkaline Phosphatase Ammonia Total Protein Albumin Globulin Albumin/Globulin Ratio Urine Color Yellow Urine Appearance Cloudy H Urine pH 5.0 Ur Specific [place] 1.017 Urine Protein Negative Urine Glucose (UA) Negative Urine Ketones Negative Urine Blood Negative Urine Nitrite Negative Urine Bilirubin Negative Urine Urobilinogen Negative Ur Leukocyte Esterase Negative Urine WBC (Auto) 5-10 H Urine RBC (Auto) 5-10 H U Hyaline Cast (Auto) 5-10 H U Epithel Cells (Auto) >30 H Urine Bacteria (Auto) Negative Ur Renal Epithelial Cell 0-5 Granular Casts 5-10 H _ (1) RLL pneumonia Pneumonia type: due to unspecified organism Aspiration pneumonia type: Qualified Code(s): J18.1 - Lobar pneumonia, unspecified organism (2) CAD (coronary artery disease) Coronary Disease-Associated Artery/Lesion type: [place] artery [place] vs. transplanted heart: [place] heart Associated angina: without angina Qualified Code(s): I25.10 - Atherosclerotic heart disease of [place] coronary artery without angina pectoris (3) Altered mental status Altered mental status type: somnolence Qualified Code(s): R40.0 - Somnolence (4) Insomnia Insomnia type: unspecified Qualified Code(s): G47.00 - Insomnia, unspecified
[2018-11-27] MEDS: MoRPHine SULFATE 5 MG/0.25 ML UDP PO SCH ×2 (22:05→23:25)
[2018-11-28 07:18] LABS: Basophils # (auto) 0.01 K/uL (0-0.2); Basophils % (auto) 0.1 %; Eosinophils # (auto) 0.11 K/uL (0-0.5); Eosinophils % (auto) 1.2 %; Hematocrit (blood only) 30.6 % (42-52); Hemoglobin 9.6 g/dL (14.0-18.0); Immature Granulocytes # (auto) 0.09 K/uL (0.00-0.02); Lymphocytes # (auto) 0.64 K/uL (1.2-3.4); Lymphocytes % (auto) 6.8 %; Mean Corpuscular Hgb Conc 31.4 g/dL (32-36); Mean Corpuscular Volume 91.6 fL (80-100); Mean Platelet Volume 9.7 fL (7.4-10.4); Monocytes # (auto) 1.61 K/uL (0.11-0.59); Monocytes % (auto) 17.2 %; Neutrophils # (auto) 6.92 K/uL (1.4-6.5); Neutrophils % (auto) 73.7 %; Platelet Count 145 K/uL (130-400); RDW Coefficient of Variation 24.7 % (11.5-14.5); RDW Standard Deviation 82.1 fL (36.4-46.3); Red Blood Count 3.34 M/uL (4.7-6.1); White Blood Count 9.38 K/uL (4.8-10.8)
[2018-11-28] MEDS: FERROUS SULFATE 325 MG TAB PO SCH ×2 (07:25→20:42)
[2018-11-28] MEDS: METOPROLOL SUCC 25MG EXT REL TAB PO SCH (07:25)
[2018-11-28] MEDS: CEROVITE ADV FORMULA TAB PO SCH (07:25)
[2018-11-28] MEDS: ASPIRIN 81 MG ECTAB PO SCH (07:25)
[2018-11-28] MEDS: LACTOBACILLUS ACIDOPHILUS (FLORANEX) TAB PO SCH ×3 (07:26→17:26)
[2018-11-28] MEDS: FUROSEMIDE 20 MG TAB PO SCH (07:26)
[2018-11-28] MEDS: MAGNESIUM OXIDE 400 MG TAB PO SCH (07:26)
[2018-11-28] MEDS: CYANOCOBALAMIN 500 MCG TABLET (VITAMIN B-12) PO SCH (07:27)
[2018-11-28] MEDS: PANTOprazole 40 MG TAB PO SCH (07:27)
[2018-11-28] MEDS: FINASTERIDE 5 MG TAB PO SCH (07:27)
[2018-11-28 07:45] LABS: Anisocytosis Present; Polychromasia 1+
[2018-11-28 07:57] LABS: Albumin Level 2.1 gm/dl (3.4-5.0); BUN Creatinine Ratio 35.3 (10-20); Calcium 8.4 mg/dl (8.5-10.1); Est GFR (African American) 76.5; Potassium 3.4 mmol/L (3.5-5.1)
[2018-11-28 08:00] LABS: Albumin Globulin Ratio 0.5 (0.9-2); Total Protein 6.1 gm/dl (6.4-8.2)
[2018-11-28] MEDS: INSULIN ASPART 100 UNITS/ML 3 ML PEN SC SCH ×4 (08:40→20:44)
[2018-11-28] MEDS: INSULIN GLARGINE SOLOSTAR 100 UNITS/ML 3 ML PEN SC SCH (08:40)
[2018-11-28] MEDS: HEPARIN SOD 5,000 UNIT/0.5 ML VIAL SQ SCH ×2 (08:41→20:43)
[2018-11-28] MEDS: CASPOFUNGIN 35 MG in SODIUM CHLORIDE 0.9% 250 ML IV SCH (09:29)
--- NOTE | 2018-11-28 11:11 | Palliative Care Progress Note ---
Date of Service November 28, 2018 Assessment & Plan (1) Palliative care encounter: -72 year old male known to our service from his prior admissions who presented on 127 with increased shortness of breath and increased lower edema. Patient had just been discharged from senior living facility for rehab a few days prior to admission. Patient's admission in October was complicated by STEMI and required intubation - pt improved and went to rehab. -Plan is for patient to go to OR this week some time with Dr. Srivastava to have abx/antifungal beads placed in his Eloesser flap/wound and have wound vac applied. -Patient remains tired and weak. He still plans on eventually going home with his /family on hospice. -Further plans to follow once we see how patient does in the hospital and what the plan will be for the Eloesser flap and abx. (2) Cavitary pneumonia: (3) Aspergillus fumigatus: (4) CHF (congestive heart failure): (5) Elevated LFTs: (6) Ischemic cardiomyopathy: EF 15%-patient would qualify for hospice based on this diagnosis alone, patient on maximum medical therapy. (7) Small cell lung cancer: Subjective Patient feels about the same today. No new or worsening complaints. Constitutional: + weakness and + anorexia (poor appetite) Respiratory: + cough, + dyspnea and + dyspnea on exertion Cardiovascular: + edema (improved); no chest pain Musculoskeletal: + muscle weakness Psychiatric: + depression (feeling down about his situation); no anxiety Physical Exam 2 Vital Signs (Past 24 Hours): Last Vital Signs Temp 36.2 C L 11/28/18 07:23 Pulse 92 H 11/28/18 07:23 Resp 20 11/28/18 07:23 BP 101/66 11/28/18 07:23 Pulse Ox 90 11/28/18 07:23 Constitutional: + ill appearing (chronically), + frail appearing and + malnourished ENMT: Ears: no hearing impairment Neck: normal visual inspection and trachea midline Respiratory: + labored breathing and + tachypneic Cardiovascular: RRR, no murmur, no edema Gastrointestinal (Abdomen): normal bowel sounds, soft, nontender, no hepatosplenomegaly Neurologic: awake; not confused Psychiatric: A+Ox3, euthymic affect Time Spent Midlevel 25 minutes with >50% of time spent at bedside with patient discussing plan of care and collaborating with hospitalist physician to discuss case. _ (1) CHF (congestive heart failure) Heart failure chronicity: acute on chronic Heart failure type: unspecified Qualified Code(s): I50.9 - Heart failure, unspecified
--- NOTE | 2018-11-28 11:55 | Progress Note ---
DATE: 11/28/2018 Mr. Aden has not really changed much. White count is 9380. Hemoglobin is 9.6. BUN and creatinine are stable at 38 and 1.09. Blood sugars have been fairly well controlled. His liver functions continued to improve. Albumin of course remains low at 2.2. It appears he does have Aspergillus in the lung tissue which was excised during his debridement. I am a bit more optimistic about Mr. Aden. I think that he is going to improve. We will have to see how he does, but I think this is going to prevent him from getting recurrent pneumonias. We are going to take him to the operating room on 11/30/2018 and do some minor debridement, but really just to pack this wound with calcium sulfate beads impregnated with antibiotics and with antifungal agents. We will then cover this with a Acticoat mesh and apply a wound VAC. I have discussed this in detail with the patient and his family. We will do this under local MAC. DOMENICA
--- NOTE | 2018-11-28 14:35 | Hospitalist Progress Note ---
Date of Service November 28, 2018 Assessment & Plan (1) Acute respiratory failure with hypoxia: Ongoing o2 requirement. 2nd to RLL pneumonia, severe CHF, recent left-sided lung surgery, large CHATA cavitation with fungal ball, etc. Cont o2 support to keep POx>90% (2) Altered mental status: Occurred on AM of 11/27--> now resolved completely During past hospital stays this was sometimes the first sign of new-onset infection, shock, etc. - lactate, VBG, ammonia, u/a all repeated and wnl (3) Shock liver: likely due to low-flow state in the setting of surgery last week. LFTs continue to be gradually improving. Had concomitant ATN as well. LFTs and INR in am. Holding lipitor, tylenol, voriconazole, etc. (4) Coagulopathy: 2nd to shock liver. ammonia level again normal INR continues to trend down. recheck INR in AM (5) Acute kidney injury: 2nd to ATN in setting of perioperative hypotension (presumed). creatinine improved BMP in am. (6) Insomnia: not a good candidate for any meds. however, in light of dyspnea, anxiety, pain - started scheduled PO morphine 5mg at [facility]-helped (7) RLL pneumonia: clinically resolved; completed full course of IV abx this admission. (8) Aspergillus fumigatus: fungal ball, CHATA. unable to use voriconazole in setting of shock liver. ID (Dr. Rodriguez) recommending daily IV caspofungin. I spoke with Dr. Rodriguez - ideally he would need 6-8 weeks of antifungal Rx w/ caspofungin. Thoracic Surgery now planning to use antifungal medicine with his abx beads in packing the chest cavity -in light of the abx beads, will d/w ID as to whether will need IV Caspo moving forward (9) Acute on chronic systolic (congestive) heart failure: appears compensated today with some slight ankle edema after holding lasix for ATN for several days PO lasix resumed on 11/27 cont low-dose BB. -was not being weighted daily--> ordered daily weights, I/Os (10) Cavitary lesion of lung: CHATA, s/p Left Anterior [place] Flap by Dr. Srivastava cont daily packing the CHATA cavity is the prior location of his lung cancer no cancer cells detected on recent path specimens (11) Small cell lung cancer: CHATA - history of such, s/p CHATA lobectomy 2 years ago -no malignancy identified on pathology from [place] flap (12) CAD (coronary artery disease): no obvious ischemic symptoms at this time. s/p cath last month with stable CAD. -continue ASA metoprolol -holding statin for shock liver (13) PVD (peripheral vascular disease): Patient denies claudication symptoms of legs but he clearly has PAD given his poor pulses on exam. -holding statin as above -Continue aspirin (14) Physical deconditioning: ongoing has gotten severely deconditioned due to numerous comorbidities and frequent hospital stays rehab potential is poor given his extreme BEE even with just moving in the bed (15) Severe protein-calorie malnutrition: ongoing multifactorial (16) DVT prophylaxis: resume heparin 5000 BID (17) Complex care coordination: care d/w Dr. Srivastava, and pt's and daughter. I appreciate Dr. Srivastava's assistance as well as Palliative Care assistance with this gentleman' s care. He has very little reserve, if any at this point, and is just coming off significant shock liver, coagulopathy, and ATN/acute renal failure. He is incredibly sensitive to even small doses of sedatives. There is concern about potential for additional medical complications with any procedure of any type in the setting of still-recovering issues from last week ( again - shock liver, ATN, etc) and his ever-growing list of numerous comorbid conditions. Patient and his voiced that they understand all of this. Hopefully with sedation as opposed to General Anesthesia, these risks will be minimized. Alternative is to not do surgery and risk recurrent PNAs, side effecs of continuous/frequent antibiotic therapy, etc. At this point I believe the plan is still for home with hospice at discharge ( or SNF with hospice if patient's family cannot care for him at home) but the patient periodically states he "wants everything done to get better." Dispo-remain on Surgical floor PT/OT evals DNR Subjective Still has a c/o urinary urgency, but then not much urine comes out on most times. No hematuria, urine not cloudy. Bladder scan previously have been negligible for PVR. Denies CP, only feels SOB with urge to urinate. Discussed case with Dr. Srivastava of Thoracic Surgery He has been ambulating in the halls Review of Systems All systems reviewed & are unremarkable except as noted in HPI & below Physical Exam 2 Vital Signs (Past 24 Hours): Last Vital Signs Temp 36.2 C L 11/28/18 07:23 Pulse 92 H 11/28/18 07:23 Resp 20 11/28/18 07:23 BP 101/66 11/28/18 07:23 Pulse Ox 90 11/28/18 07:23 Constitutional: + ill appearing (chronically ), + thin and + cachectic; no acute distress Eyes: PERRL, conjunctivae normal, anicteric sclerae ENMT: external ear and nose normal, oropharynx normal Neck: trachea midline, no thyromegaly Respiratory: normal respiratory effort; no labored breathing (but does the "pursed lips" breathing when not talking) Auscultation: + crackles (right lower lung field and right upper lung field); no wheezes Cardiovascular: Rate/Rhythm: regular rate and regular rhythm Heart Sounds: no murmur Extremities: + edema (trace pitting edema ankles bilat, L>R) Chest (Breasts): Chest: + abnormal inspection of chest (Left superior anterior chest wall with thick dressing in place, C/D/I) Gastrointestinal (Abdomen): normal bowel sounds, soft, nontender, no hepatosplenomegaly Musculoskeletal: Extremities: extremities normal to inspection; no cyanosis and no clubbing Skin: no rashes, warm and dry Neurologic: moves all extremities and awake; no focal motor deficits Psychiatric: Orientation: alert and oriented x 3 Affect: + anxious affect Results & Data Laboratory Results 11/28/18 11/28/18 11/28/18 Range/Units 11:48 07:50 07:10 WBC 9.38 (4.8-10.8) K/uL RBC 3.34 L (4.7-6.1) M/uL Hgb 9.6 L (14.0-18.0) g/dL Hct 30.6 L (42-52) % MCV 91.6 (80-100) fL MCH 28.7 (25-34) pg MCHC 31.4 L (32-36) g/dL RDW Std Deviation 82.1 H (36.4-46.3) fL RDW Coeff of Molly 24.7 H (11.5-14.5) % Plt Count 145 (130-400) K/uL MPV 9.7 (7.4-10.4) fL Immature Gran % (Auto) 1.0 % Neut % (Auto) 73.7 % Lymph % (Auto) 6.8 % [place] % (Auto) 17.2 % Eos % (Auto) 1.2 % Baso % (Auto) 0.1 % Immature Gran # (Auto) 0.09 H (0.00-0.02) K/uL Neut # (Auto) 6.92 H (1.4-6.5) K/uL Lymph # (Auto) 0.64 L (1.2-3.4) K/uL [place] # (Auto) 1.61 H (0.11-0.59) K/uL Eos # (Auto) 0.11 (0-0.5) K/uL Baso # (Auto) 0.01 (0-0.2) K/uL Polychromasia 1+ Anisocytosis Present VBG pH (7.36-7.41) VBG pCO2 (38-50) mmHg VBG pO2 mmHg VBG HCO3 mmol/L VBG O2 Saturation % VBG Base Excess mEq/L Barometric Pressure mm/Hg Sodium (136-145) mmol/L Potassium (3.5-5.1) mmol/L Chloride (98-107) mmol/L Carbon Dioxide (21-32) mmol/L Anion Gap (3-11) BUN (7-18) mg/dl Creatinine (0.6-1.4) mg/dl Est Cr Clr Drug Dosing ml/min Est GFR ( Amer) Est GFR (Non-Af Amer) BUN/Creatinine Ratio (10-20) Glucose (70-99) mg/dl POC Glucose 162 H 115 H (70-99) Lactate (0.4-2.0) mmol/L Calcium (8.5-10.1) mg/dl Total Bilirubin (0.2-1) mg/dl AST (15-37) U/L ALT (12-78) U/L Alkaline Phosphatase (45-117) U/L Ammonia (11-32) umol/L Total Protein (6.4-8.2) gm/dl Albumin (3.4-5.0) gm/dl Globulin (2.5-4.0) gm/dl Albumin/Globulin Ratio (0.9-2) Urine Color Urine Appearance (Clear) Urine pH (4.5-7.5) Ur Specific [place] (1.000-1.030) Urine Protein (Negative) Urine Glucose (UA) (Negative) Urine Ketones (Negative) Urine Blood (Negative) Urine Nitrite (Negative) Urine Bilirubin (Negative) Urine Urobilinogen (Negative) Ur Leukocyte Esterase (Negative) Urine WBC (Auto) (0-5) /hpf Urine RBC (Auto) (0-4) /hpf U Hyaline Cast (Auto) (0-5) /lpf U Epithel Cells (Auto) (0-5) /lpf Urine Bacteria (Auto) (Negative) Ur Renal Epithelial Cell (0-5) /lpf Granular Casts (0) /lpf 11/28/18 11/27/18 11/27/18 Range/Units 07:10 20:31 17:35 WBC (4.8-10.8) K/uL RBC (4.7-6.1) M/uL Hgb (14.0-18.0) g/dL Hct (42-52) % MCV (80-100) fL MCH (25-34) pg MCHC (32-36) g/dL RDW Std Deviation (36.4-46.3) fL RDW Coeff of Molly (11.5-14.5) % Plt Count (130-400) K/uL MPV (7.4-10.4) fL Immature Gran % (Auto) % Neut % (Auto) % Lymph % (Auto) % [place] % (Auto) % Eos % (Auto) % Baso % (Auto) % Immature Gran # (Auto) (0.00-0.02) K/uL Neut # (Auto) (1.4-6.5) K/uL Lymph # (Auto) (1.2-3.4) K/uL [place] # (Auto) (0.11-0.59) K/uL Eos # (Auto) (0-0.5) K/uL Baso # (Auto) (0-0.2) K/uL Polychromasia Anisocytosis VBG pH (7.36-7.41) VBG pCO2 (38-50) mmHg VBG pO2 mmHg VBG HCO3 mmol/L VBG O2 Saturation % VBG Base Excess mEq/L Barometric Pressure mm/Hg Sodium 136 (136-145) mmol/L Potassium 3.4 L (3.5-5.1) mmol/L Chloride 103 (98-107) mmol/L Carbon Dioxide 25 (21-32) mmol/L Anion Gap 8.0 (3-11) BUN 38 H (7-18) mg/dl Creatinine 1.09 (0.6-1.4) mg/dl Est Cr Clr Drug Dosing 46.0 ml/min Est GFR ( Amer) 76.5 Est GFR (Non-Af Amer) 66.0 BUN/Creatinine Ratio 35.3 H (10-20) Glucose 113 H (70-99) mg/dl POC Glucose 187 H 156 H (70-99) Lactate (0.4-2.0) mmol/L Calcium 8.4 L (8.5-10.1) mg/dl Total Bilirubin 1.0 (0.2-1) mg/dl AST 155 H (15-37) U/L ALT 492 H (12-78) U/L Alkaline Phosphatase 761 H (45-117) U/L Ammonia (11-32) umol/L Total Protein 6.1 L (6.4-8.2) gm/dl Albumin 2.1 L (3.4-5.0) gm/dl Globulin 4.0 (2.5-4.0) gm/dl Albumin/Globulin Ratio 0.5 L (0.9-2) Urine Color Urine Appearance (Clear) Urine pH (4.5-7.5) Ur Specific [place] (1.000-1.030) Urine Protein (Negative) Urine Glucose (UA) (Negative) Urine Ketones (Negative) Urine Blood (Negative) Urine Nitrite (Negative) Urine Bilirubin (Negative) Urine Urobilinogen (Negative) Ur Leukocyte Esterase (Negative) Urine WBC (Auto) (0-5) /hpf Urine RBC (Auto) (0-4) /hpf U Hyaline Cast (Auto) (0-5) /lpf U Epithel Cells (Auto) (0-5) /lpf Urine Bacteria (Auto) (Negative) Ur Renal Epithelial Cell (0-5) /lpf Granular Casts (0) /lpf 11/27/18 11/27/18 11/27/18 Range/Units 17:30 16:17 16:17 WBC (4.8-10.8) K/uL RBC (4.7-6.1) M/uL Hgb (14.0-18.0) g/dL Hct (42-52) % MCV (80-100) fL MCH (25-34) pg MCHC (32-36) g/dL RDW Std Deviation (36.4-46.3) fL RDW Coeff of Molly (11.5-14.5) % Plt Count (130-400) K/uL MPV (7.4-10.4) fL Immature Gran % (Auto) % Neut % (Auto) % Lymph % (Auto) % [place] % (Auto) % Eos % (Auto) % Baso % (Auto) % Immature Gran # (Auto) (0.00-0.02) K/uL Neut # (Auto) (1.4-6.5) K/uL Lymph # (Auto) (1.2-3.4) K/uL [place] # (Auto) (0.11-0.59) K/uL Eos # (Auto) (0-0.5) K/uL Baso # (Auto) (0-0.2) K/uL Polychromasia Anisocytosis VBG pH 7.39 (7.36-7.41) VBG pCO2 44 (38-50) mmHg VBG pO2 34 mmHg VBG HCO3 26 mmol/L VBG O2 Saturation < 60.0 % VBG Base Excess 1.2 mEq/L Barometric Pressure 727.2 mm/Hg Sodium (136-145) mmol/L Potassium (3.5-5.1) mmol/L Chloride (98-107) mmol/L Carbon Dioxide (21-32) mmol/L Anion Gap (3-11) BUN (7-18) mg/dl Creatinine (0.6-1.4) mg/dl Est Cr Clr Drug Dosing ml/min Est GFR ( Amer) Est GFR (Non-Af Amer) BUN/Creatinine Ratio (10-20) Glucose (70-99) mg/dl POC Glucose (70-99) Lactate (0.4-2.0) mmol/L Calcium (8.5-10.1) mg/dl Total Bilirubin (0.2-1) mg/dl AST (15-37) U/L ALT (12-78) U/L Alkaline Phosphatase (45-117) U/L Ammonia 27.9 (11-32) umol/L Total Protein (6.4-8.2) gm/dl Albumin (3.4-5.0) gm/dl Globulin (2.5-4.0) gm/dl Albumin/Globulin Ratio (0.9-2) Urine Color Yellow Urine Appearance Cloudy H (Clear) Urine pH 5.0 (4.5-7.5) Ur Specific [place] 1.017 (1.000-1.030) Urine Protein Negative (Negative) Urine Glucose (UA) Negative (Negative) Urine Ketones Negative (Negative) Urine Blood Negative (Negative) Urine Nitrite Negative (Negative) Urine Bilirubin Negative (Negative) Urine Urobilinogen Negative (Negative) Ur Leukocyte Esterase Negative (Negative) Urine WBC (Auto) 5-10 H (0-5) /hpf Urine RBC (Auto) 5-10 H (0-4) /hpf U Hyaline Cast (Auto) 5-10 H (0-5) /lpf U Epithel Cells (Auto) >30 H (0-5) /lpf Urine Bacteria (Auto) Negative (Negative) Ur Renal Epithelial Cell 0-5 (0-5) /lpf Granular Casts 5-10 H (0) /lpf 11/27/18 Range/Units 16:17 WBC (4.8-10.8) K/uL RBC (4.7-6.1) M/uL Hgb (14.0-18.0) g/dL Hct (42-52) % MCV (80-100) fL MCH (25-34) pg MCHC (32-36) g/dL RDW Std Deviation (36.4-46.3) fL RDW Coeff of Molly (11.5-14.5) % Plt Count (130-400) K/uL MPV (7.4-10.4) fL Immature Gran % (Auto) % Neut % (Auto) % Lymph % (Auto) % [place] % (Auto) % Eos % (Auto) % Baso % (Auto) % Immature Gran # (Auto) (0.00-0.02) K/uL Neut # (Auto) (1.4-6.5) K/uL Lymph # (Auto) (1.2-3.4) K/uL [place] # (Auto) (0.11-0.59) K/uL Eos # (Auto) (0-0.5) K/uL Baso # (Auto) (0-0.2) K/uL Polychromasia Anisocytosis VBG pH (7.36-7.41) VBG pCO2 (38-50) mmHg VBG pO2 mmHg VBG HCO3 mmol/L VBG O2 Saturation % VBG Base Excess mEq/L Barometric Pressure mm/Hg Sodium (136-145) mmol/L Potassium (3.5-5.1) mmol/L Chloride (98-107) mmol/L Carbon Dioxide (21-32) mmol/L Anion Gap (3-11) BUN (7-18) mg/dl Creatinine (0.6-1.4) mg/dl Est Cr Clr Drug Dosing ml/min Est GFR ( Amer) Est GFR (Non-Af Amer) BUN/Creatinine Ratio (10-20) Glucose (70-99) mg/dl POC Glucose (70-99) Lactate 1.9 (0.4-2.0) mmol/L Calcium (8.5-10.1) mg/dl Total Bilirubin (0.2-1) mg/dl AST (15-37) U/L ALT (12-78) U/L Alkaline Phosphatase (45-117) U/L Ammonia (11-32) umol/L Total Protein (6.4-8.2) gm/dl Albumin (3.4-5.0) gm/dl Globulin (2.5-4.0) gm/dl Albumin/Globulin Ratio (0.9-2) Urine Color Urine Appearance (Clear) Urine pH (4.5-7.5) Ur Specific [place] (1.000-1.030) Urine Protein (Negative) Urine Glucose (UA) (Negative) Urine Ketones (Negative) Urine Blood (Negative) Urine Nitrite (Negative) Urine Bilirubin (Negative) Urine Urobilinogen (Negative) Ur Leukocyte Esterase (Negative) Urine WBC (Auto) (0-5) /hpf Urine RBC (Auto) (0-4) /hpf U Hyaline Cast (Auto) (0-5) /lpf U Epithel Cells (Auto) (0-5) /lpf Urine Bacteria (Auto) (Negative) Ur Renal Epithelial Cell (0-5) /lpf Granular Casts (0) /lpf _ (1) Altered mental status Altered mental status type: somnolence Coma depth: Coma timing: Qualified Code(s): R40.0 - Somnolence (2) Insomnia Insomnia type: unspecified Qualified Code(s): G47.00 - Insomnia, unspecified (3) RLL pneumonia Pneumonia type: due to unspecified organism Aspiration pneumonia type: Qualified Code(s): J18.1 - Lobar pneumonia, unspecified organism (4) CAD (coronary artery disease) Coronary Disease-Associated Artery/Lesion type: [place] artery [place] vs. transplanted heart: [place] heart Associated angina: without angina Qualified Code(s): I25.10 - Atherosclerotic heart disease of [place] coronary artery without angina pectoris
[2018-11-28] MEDS ORDERED: POTASSIUM CHLORIDE 10 MEQ TABCR PO STA (14:38)
--- NOTE | 2018-11-28 17:35 | Urology Consultation ---
Date of Consultation November 28, 2018 Assessment & Plan (1) Urinary urgency: 73yo with multiple, severe comorbidities and length hospital stay. Fighting significant cardiopulmonary illness presently. BPH, Urinary Urgency - low PVR - normal Cr We discussed options to address urinary urgency, BPH. Pt feels these symptoms are not very bothersome to him. He has a mixed picture of both difficulty storing urine with incontinence, but also with emptying. As he is reporting some hesitancy. Likely related to BPH with diuretic use. I am apprehensive to starting anticholinergics given his severe COPD. He denies bladder spasms, if this does occur, we could entertain adding b&O suppositories as needed. Pt denies interest in flomax, as he has tendency for dizziness/low BP. He would like to hold off on adding any new medications from urinary standpoint. As long as he continues to empty well, we are agreeable to allow for primary medical team to lead. Denies dysuria or suprapubic pain, UC&S is not indicated at this time. Continue Finesteride. Please reconsult us with any additional questions, concerns or changes in patient status. History of Present Illness Reason for Consultation: urinary urgency Requesting Physician: urinary urgency Attending Physician: Joselyn Zambrano MD History of Present Illness 73yo M with extensive cardiopulmonary comorbidities, including CHF, COPD, small cell lung ca, cavitary lesion of left upper lobe. Presented to ED on 11/11 for worsening shortness of breath and hypoxia, he had had a very complicated hospital thus far. Established with Dr. Feldman, from a standpoint has been stable for some time , BPH s/p TURP and stable nephrolithiasis. Currently taking finesteride. We were consulted due to increased urinary urgency, with question of bladder spasms. He has not required any catheterization throughout this hospital stay. PVR's have been minimal. He states is voiding every 2-3 hours. States it has been slowly becoming more apparent over the last week, no acute changes. He is receiving lasix as needed, which pt coorelates to increased urgency. Some hesitancy, some urge incontinence. Denies suprapubic or flank pain. Denies dysuria or hematuria. Allergies Allergy/AdvReac Type Severity Reaction Status Date / Time No Known Allergies Allergy Verified 11/11/18 15:07 Home Medications Home Medications Medication Instructions Recorded Confirmed Type ferrous sulfate 325 mg PO BID 09/17/18 11/11/18 History finasteride 5 mg PO QAM 09/17/18 11/11/18 History magnesium oxide 400 mg PO QAM 09/17/18 11/11/18 History metformin 1,000 mg PO BID 09/17/18 11/11/18 History multivitamin with minerals 1 tab PO QAM 09/17/18 11/11/18 History [Multiple Vitamin-Minerals] pantoprazole 40 mg PO QAM 09/17/18 11/11/18 History aspirin 81 mg PO QAM 10/14/18 11/11/18 History cyanocobalamin (vitamin B-12) 1,000 mcg PO QAM #30 tab 10/27/18 11/11/18 Rx [Vitamin B-12] melatonin 1 mg PO HS #30 tab 10/27/18 11/11/18 Rx metoprolol succinate 12.5 mg PO QAM #30 tab 10/27/18 11/11/18 Rx nitroglycerin 0.4 mg SUBLINGUAL Q5M PRN #30 tab 10/27/18 11/11/18 Rx nut.tx.gluc intol,lf,soy-fiber 1 ea PO TIDM #6399 ml 10/27/18 11/11/18 Rx [Boost Glucose Control] furosemide [Lasix] 20 mg PO Q OTHER DAY 11/11/18 11/11/18 History insulin aspart U-100 [Novolog 0 sliding scale dose SUBCUT ACHS 11/11/18 History Flexpen U-100 Insulin] potassium chloride [Klor-Con M20] 20 meq PO Q OTHER DAY 11/11/18 11/11/18 History Patient History Medical History Aspergillus fumigatus Acute on chronic systolic (congestive) heart failure SC (myocardial infarction) (Resolved) Small cell lung cancer (Acute 01/27/16) "DIAGNOSIS: Lung, CHATA, small cell lung carcinoma, [id number], stage IIIA TREATMENT: 1. Status post completion of combined radiation and chemotherapy. Radiation completed 05/02/2016 received 7000 cGy 2. 2 addition cycles of cisplatin/etoposide - Dr. Jeffery Ash" On 05/09/16 13:18 Beatris Curiel wrote "DIAGNOSIS: Lung, CHAAT, small cell lung carcinoma, [id number], stage IIIA, limited stage Status post completion of combined radiation and chemotherapy. Radiation completed 05/02/2016 received 7000 cGy" On 05/09/16 12:53 Beatris Curiel wrote "DIAGNOSIS: Lung, CHATA, small cell lung carcinoma, [id number], stage IIIA, limited stage Status post completion of combined radiation and chemotherapy. Radiation completed 05/01/2016 received 7000 cGy" On 02/23/16 13:12 Jacinta Poole wrote "DIAGNOSIS: Lung, CHATA, small cell lung carcinoma, [id number], stage IIIA, limited stage" CAD (coronary artery disease) PVD (peripheral vascular disease) Hx of myocardial infarction HTN (hypertension) BPH (benign prostatic hyperplasia) HLD (hyperlipidemia) Anemia CKD stage 3 due to type 2 diabetes mellitus COPD (chronic obstructive pulmonary disease) DM II (diabetes mellitus, type II), controlled Consolidation lung Left upper lobe pneumonia Pneumonia Surgical History History of transurethral resection of prostate History of heart artery stent (Chronic) Family History Other Diabetes Heart disease Social History marital status: Current Living Situation: Spouse current occupational status: retired Other Information That Helps Us Care for You: No Feels Safe at Home: Yes Safety Concerns: Feels Safe At This Time Smoking Status: Former smoker Do You Dip or Chew Tobacco: No Hx Alcohol Use: No Hx Substance Use: No Beliefs That Will Affect Care: None Communication Ability: Effective Review of Systems Constitutional: no fever and no chills Eyes: no problem reported Ear, Nose, Mouth, Throat: no ear pain Respiratory: no cough and no dyspnea Cardiovascular: no chest pain Gastrointestinal: no abdominal pain Genitourinary (Male): + urinary hesitancy and + urinary urgency; no dysuria, no difficulty urinating, no hematuria and no flank pain Musculoskeletal: no back pain and no neck pain Integumentary: no acne Neurologic: no numbness and no paresthesia Psychiatric: + irritability; no depression and no panic attacks Endocrine: no polydipsia Hematologic / Lymphatic: no easy bleeding Physical Exam 2 Vital Signs (Past 24 Hours): Last Vital Signs Temp 36.3 C L 11/28/18 15:01 Pulse 97 H 11/28/18 15:01 Resp 17 11/28/18 15:01 BP 101/67 11/28/18 15:01 Pulse Ox 94 11/28/18 15:01 Constitutional: + acute distress and + cachectic; + not well nourished Eyes: no nystagmus corrective lenses on ENMT: Ears: no hearing impairment Neck: + trachea not midline Respiratory: + uses accessory muscles, + cough and + pursed lip breathing; no respiratory distress Cardiovascular: Extremities: + pedal edema Musculoskeletal: Head/Neck/Chest: normocephalic Skin: + dry skin Neurologic: awake; not confused and not obtunded Psychiatric: Eye Contact: good eye contact Results & Data Laboratory Results Laboratory Results - last 48 hr 11/26/18 11/27/18 11/27/18 20:33 07:05 07:05 WBC RBC Hgb 9.2 L Hct MCV MCH MCHC RDW Std Deviation RDW Coeff of Molly Plt Count MPV Immature Gran % (Auto) Neut % (Auto) Lymph % (Auto) [place] % (Auto) Eos % (Auto) Baso % (Auto) Immature Gran # (Auto) Neut # (Auto) Lymph # (Auto) [place] # (Auto) Eos # (Auto) Baso # (Auto) Polychromasia Anisocytosis PT 14.0 H INR 1.4 H VBG pH VBG pCO2 VBG pO2 VBG HCO3 VBG O2 Saturation VBG Base Excess Barometric Pressure Sodium Potassium Chloride Carbon Dioxide Anion Gap BUN Creatinine Est Cr Clr Drug Dosing Est GFR ( Amer) Est GFR (Non-Af Amer) BUN/Creatinine Ratio Glucose POC Glucose 165 H Lactate Calcium Total Bilirubin AST ALT Alkaline Phosphatase Ammonia Total Protein Albumin Globulin Albumin/Globulin Ratio Urine Color Urine Appearance Urine pH Ur Specific [place] Urine Protein Urine Glucose (UA) Urine Ketones Urine Blood Urine Nitrite Urine Bilirubin Urine Urobilinogen Ur Leukocyte Esterase Urine WBC (Auto) Urine RBC (Auto) U Hyaline Cast (Auto) U Epithel Cells (Auto) Urine Bacteria (Auto) Ur Renal Epithelial Cell Granular Casts 11/27/18 11/27/18 11/27/18 07:05 08:18 12:07 WBC RBC Hgb Hct MCV MCH MCHC RDW Std Deviation RDW Coeff of Molly Plt Count MPV Immature Gran % (Auto) Neut % (Auto) Lymph % (Auto) [place] % (Auto) Eos % (Auto) Baso % (Auto) Immature Gran # (Auto) Neut # (Auto) Lymph # (Auto) [place] # (Auto) Eos # (Auto) Baso # (Auto) Polychromasia Anisocytosis PT INR VBG pH VBG pCO2 VBG pO2 VBG HCO3 VBG O2 Saturation VBG Base Excess Barometric Pressure Sodium 136 Potassium 3.8 Chloride 103 Carbon Dioxide 25 Anion Gap 8.0 BUN 49 H Creatinine 1.46 H Est Cr Clr Drug Dosing 34.3 Est GFR ( Amer) 53.8 Est GFR (Non-Af Amer) 46.4 BUN/Creatinine Ratio 33.5 H Glucose 162 H POC Glucose 151 H 198 H Lactate Calcium 8.7 Total Bilirubin 1.2 H AST 301 H ALT 652 H Alkaline Phosphatase 895 H Ammonia Total Protein 6.1 L Albumin 2.2 L Globulin 3.9 Albumin/Globulin Ratio 0.6 L Urine Color Urine Appearance Urine pH Ur Specific [place] Urine Protein Urine Glucose (UA) Urine Ketones Urine Blood Urine Nitrite Urine Bilirubin Urine Urobilinogen Ur Leukocyte Esterase Urine WBC (Auto) Urine RBC (Auto) U Hyaline Cast (Auto) U Epithel Cells (Auto) Urine Bacteria (Auto) Ur Renal Epithelial Cell Granular Casts 11/27/18 11/27/18 11/27/18 16:17 16:17 16:17 WBC RBC Hgb Hct MCV MCH MCHC RDW Std Deviation RDW Coeff of Molly Plt Count MPV Immature Gran % (Auto) Neut % (Auto) Lymph % (Auto) [place] % (Auto) Eos % (Auto) Baso % (Auto) Immature Gran # (Auto) Neut # (Auto) Lymph # (Auto) [place] # (Auto) Eos # (Auto) Baso # (Auto) Polychromasia Anisocytosis PT INR VBG pH 7.39 VBG pCO2 44 VBG pO2 34 VBG HCO3 26 VBG O2 Saturation < 60.0 VBG Base Excess 1.2 Barometric Pressure 727.2 Sodium Potassium Chloride Carbon Dioxide Anion Gap BUN Creatinine Est Cr Clr Drug Dosing Est GFR ( Amer) Est GFR (Non-Af Amer) BUN/Creatinine Ratio Glucose POC Glucose Lactate 1.9 Calcium Total Bilirubin AST ALT Alkaline Phosphatase Ammonia 27.9 Total Protein Albumin Globulin Albumin/Globulin Ratio Urine Color Urine Appearance Urine pH Ur Specific [place] Urine Protein Urine Glucose (UA) Urine Ketones Urine Blood Urine Nitrite Urine Bilirubin Urine Urobilinogen Ur Leukocyte Esterase Urine WBC (Auto) Urine RBC (Auto) U Hyaline Cast (Auto) U Epithel Cells (Auto) Urine Bacteria (Auto) Ur Renal Epithelial Cell Granular Casts 11/27/18 11/27/18 11/27/18 17:30 17:35 20:31 WBC RBC Hgb Hct MCV MCH MCHC RDW Std Deviation RDW Coeff of Molly Plt Count MPV Immature Gran % (Auto) Neut % (Auto) Lymph % (Auto) [place] % (Auto) Eos % (Auto) Baso % (Auto) Immature Gran # (Auto) Neut # (Auto) Lymph # (Auto) [place] # (Auto) Eos # (Auto) Baso # (Auto) Polychromasia Anisocytosis PT INR VBG pH VBG pCO2 VBG pO2 VBG HCO3 VBG O2 Saturation VBG Base Excess Barometric Pressure Sodium Potassium Chloride Carbon Dioxide Anion Gap BUN Creatinine Est Cr Clr Drug Dosing Est GFR ( Amer) Est GFR (Non-Af Amer) BUN/Creatinine Ratio Glucose POC Glucose 156 H 187 H Lactate Calcium Total Bilirubin AST ALT Alkaline Phosphatase Ammonia Total Protein Albumin Globulin Albumin/Globulin Ratio Urine Color Yellow Urine Appearance Cloudy H Urine pH 5.0 Ur Specific [place] 1.017 Urine Protein Negative Urine Glucose (UA) Negative Urine Ketones Negative Urine Blood Negative Urine Nitrite Negative Urine Bilirubin Negative Urine Urobilinogen Negative Ur Leukocyte Esterase Negative Urine WBC (Auto) 5-10 H Urine RBC (Auto) 5-10 H U Hyaline Cast (Auto) 5-10 H U Epithel Cells (Auto) >30 H Urine Bacteria (Auto) Negative Ur Renal Epithelial Cell 0-5 Granular Casts 5-10 H 11/28/18 11/28/18 11/28/18 07:10 07:10 07:50 WBC 9.38 RBC 3.34 L Hgb 9.6 L Hct 30.6 L MCV 91.6 MCH 28.7 MCHC 31.4 L RDW Std Deviation 82.1 H RDW Coeff of Molly 24.7 H Plt Count 145 MPV 9.7 Immature Gran % (Auto) 1.0 Neut % (Auto) 73.7 Lymph % (Auto) 6.8 [place] % (Auto) 17.2 Eos % (Auto) 1.2 Baso % (Auto) 0.1 Immature Gran # (Auto) 0.09 H Neut # (Auto) 6.92 H Lymph # (Auto) 0.64 L [place] # (Auto) 1.61 H Eos # (Auto) 0.11 Baso # (Auto) 0.01 Polychromasia 1+ Anisocytosis Present PT INR VBG pH VBG pCO2 VBG pO2 VBG HCO3 VBG O2 Saturation VBG Base Excess Barometric Pressure Sodium 136 Potassium 3.4 L Chloride 103 Carbon Dioxide 25 Anion Gap 8.0 BUN 38 H Creatinine 1.09 Est Cr Clr Drug Dosing 46.0 Est GFR ( Amer) 76.5 Est GFR (Non-Af Amer) 66.0 BUN/Creatinine Ratio 35.3 H Glucose 113 H POC Glucose 115 H Lactate Calcium 8.4 L Total Bilirubin 1.0 AST 155 H ALT 492 H Alkaline Phosphatase 761 H Ammonia Total Protein 6.1 L Albumin 2.1 L Globulin 4.0 Albumin/Globulin Ratio 0.5 L Urine Color Urine Appearance Urine pH Ur Specific [place] Urine Protein Urine Glucose (UA) Urine Ketones Urine Blood Urine Nitrite Urine Bilirubin Urine Urobilinogen Ur Leukocyte Esterase Urine WBC (Auto) Urine RBC (Auto) U Hyaline Cast (Auto) U Epithel Cells (Auto) Urine Bacteria (Auto) Ur Renal Epithelial Cell Granular Casts 11/28/18 11/28/18 11:48 17:18 WBC RBC Hgb Hct MCV MCH MCHC RDW Std Deviation RDW Coeff of Molly Plt Count MPV Immature Gran % (Auto) Neut % (Auto) Lymph % (Auto) [place] % (Auto) Eos % (Auto) Baso % (Auto) Immature Gran # (Auto) Neut # (Auto) Lymph # (Auto) [place] # (Auto) Eos # (Auto) Baso # (Auto) Polychromasia Anisocytosis PT INR VBG pH VBG pCO2 VBG pO2 VBG HCO3 VBG O2 Saturation VBG Base Excess Barometric Pressure Sodium Potassium Chloride Carbon Dioxide Anion Gap BUN Creatinine Est Cr Clr Drug Dosing Est GFR ( Amer) Est GFR (Non-Af Amer) BUN/Creatinine Ratio Glucose POC Glucose 162 H 177 H Lactate Calcium Total Bilirubin AST ALT Alkaline Phosphatase Ammonia Total Protein Albumin Globulin Albumin/Globulin Ratio Urine Color Urine Appearance Urine pH Ur Specific [place] Urine Protein Urine Glucose (UA) Urine Ketones Urine Blood Urine Nitrite Urine Bilirubin Urine Urobilinogen Ur Leukocyte Esterase Urine WBC (Auto) Urine RBC (Auto) U Hyaline Cast (Auto) U Epithel Cells (Auto) Urine Bacteria (Auto) Ur Renal Epithelial Cell Granular Casts
[2018-11-28] MEDS: MoRPHine SULFATE 5 MG/0.25 ML UDP PO SCH (20:45)
[2018-11-29 06:46] LABS: Basophils # (auto) 0.01 K/uL (0-0.2); Basophils % (auto) 0.1 %; Eosinophils # (auto) 0.16 K/uL (0-0.5); Hematocrit (blood only) 31.7 % (42-52); Hemoglobin 9.9 g/dL (14.0-18.0); Immature Granulocytes # (auto) 0.08 K/uL (0.00-0.02); Lymphocytes % (auto) 10.1 %; Mean Corpuscular Hgb Conc 31.2 g/dL (32-36); Mean Corpuscular Volume 91.6 fL (80-100); Mean Platelet Volume 10.2 fL (7.4-10.4); Monocytes # (auto) 1.16 K/uL (0.11-0.59); Monocytes % (auto) 14.6 %; Neutrophils # (auto) 5.73 K/uL (1.4-6.5); Neutrophils % (auto) 72.2 %; Platelet Count 173 K/uL (130-400); RDW Coefficient of Variation 24.7 % (11.5-14.5); RDW Standard Deviation 81.3 fL (36.4-46.3); Red Blood Count 3.46 M/uL (4.7-6.1); White Blood Count 7.94 K/uL (4.8-10.8)
[2018-11-29 06:54] LABS: INR 1.3 (0.9-1.1); Prothrombin Time 12.9 Seconds (9.0-12.0)
[2018-11-29 07:22] LABS: Macrocytosis Present; Polychromasia 1+
[2018-11-29 07:24] LABS: Albumin Level 2.1 gm/dl (3.4-5.0); BUN Creatinine Ratio 29.6 (10-20); Bilirubin Direct 0.5 mg/dl (0-0.2); Calcium 8.5 mg/dl (8.5-10.1); Creatinine Clr Calc Pharmacy 37.4 ml/min; Est GFR (African American) 59.6; Est GFR (Non-African American) 51.5; Potassium 3.8 mmol/L (3.5-5.1)
[2018-11-29 07:27] LABS: Bilirubin,Total 0.9 mg/dl (0.2-1); Total Protein 6.1 gm/dl (6.4-8.2)
[2018-11-29] MEDS: ASPIRIN 81 MG ECTAB PO SCH (08:47)
[2018-11-29] MEDS: CYANOCOBALAMIN 500 MCG TABLET (VITAMIN B-12) PO SCH (08:47)
[2018-11-29] MEDS: PANTOprazole 40 MG TAB PO SCH (08:47)
[2018-11-29] MEDS: METOPROLOL SUCC 25MG EXT REL TAB PO SCH (08:47)
[2018-11-29] MEDS: CEROVITE ADV FORMULA TAB PO SCH (08:47)
[2018-11-29] MEDS: FUROSEMIDE 20 MG TAB PO SCH (08:48)
[2018-11-29] MEDS: MAGNESIUM OXIDE 400 MG TAB PO SCH (08:48)
[2018-11-29] MEDS: FERROUS SULFATE 325 MG TAB PO SCH ×2 (08:48→20:53)
[2018-11-29] MEDS: LACTOBACILLUS ACIDOPHILUS (FLORANEX) TAB PO SCH ×3 (08:48→18:33)
[2018-11-29] MEDS: FINASTERIDE 5 MG TAB PO SCH (08:48)
[2018-11-29] MEDS: INSULIN GLARGINE SOLOSTAR 100 UNITS/ML 3 ML PEN SC SCH (08:50)
[2018-11-29] MEDS: INSULIN ASPART 100 UNITS/ML 3 ML PEN SC SCH ×4 (08:52→22:01)
[2018-11-29] MEDS: HEPARIN SOD 5,000 UNIT/0.5 ML VIAL SQ SCH ×2 (08:53→20:55)
[2018-11-29] MEDS: CASPOFUNGIN 35 MG in SODIUM CHLORIDE 0.9% 250 ML IV SCH (09:39)
--- NOTE | 2018-11-29 11:06 | Progress Note ---
DATE: 11/29/2018 Mr. Aden was seen today. His left upper chest Eloesser flap has not really changed. We can do some minor debriding and implant antibiotic beads tomorrow. This will be done under local with sedation. The patient understands. He is on 2 liters with 94% saturation today. I discussed this case with Dr. Zambrano yesterday. The patient's white count today is 7940 with a hemoglobin of 9.9. His BUN and creatinine are 40 and 1.34, which are actually fairly stable. I have discussed this in detail with the patient and his family.
--- NOTE | 2018-11-29 13:44 | Hospitalist Progress Note ---
Date of Service November 29, 2018 Assessment & Plan (1) Acute respiratory failure with hypoxia: Ongoing o2 requirement. 2nd to RLL pneumonia, severe CHF, recent left-sided lung surgery, large CHATA cavitation with fungal ball, etc. Cont o2 support to keep POx>90% (2) Altered mental status: Occurred on AM of 11/27--> now resolved completely During past hospital stays this was sometimes the first sign of new-onset infection, shock, etc. - lactate, VBG, ammonia, u/a all repeated and wnl (3) Shock liver: likely due to low-flow state in the setting of surgery last week. LFTs continue to improve today Had concomitant ATN as well. Continue to follow LFTs and INR in am. Holding lipitor, tylenol, voriconazole, etc. (4) Coagulopathy: Secondary to shock liver. ammonia level again normal INR continues to trend down. recheck INR in AM (5) Acute kidney injury: Secondary to ATN in setting of perioperative hypotension (presumed). creatinine improved again today BMP in am. (6) Insomnia: not a good candidate for any meds. however, in light of dyspnea, anxiety, pain - started scheduled PO morphine 5mg at HS-helped (7) RLL pneumonia: clinically resolved; completed full course of IV abx this admission. (8) Aspergillus fumigatus: fungal ball, CHATA. unable to use voriconazole in setting of shock liver. ID (Dr. Rodriguez) recommending daily IV caspofungin. I spoke with Dr. Rodriguez - ideally he would need 6-8 weeks of antifungal Rx w/ caspofungin. Thoracic Surgery now planning to use antifungal medicine with his abx beads in packing the chest cavity -in light of the abx beads, will d/w ID as to whether will need IV Caspo moving forward (9) Acute on chronic systolic (congestive) heart failure: Has now developed significant lower extremity edema after holding lasix for ATN for several days PO lasix resumed on 11/27 and will give an extra dose of Lasix 20 mg this afternoon cont low-dose BB. -was not being weighed daily--> reinforced with RN about need for daily weights , I/Os (10) Cavitary lesion of lung: CHATA, s/p Left Anterior Eloesser Flap by Dr. Srivastava cont daily packing the CHATA cavity is the prior location of his lung cancer no cancer cells detected on recent path specimens (11) Small cell lung cancer: CHATA - history of such, s/p CHATA lobectomy 2 years ago -no malignancy identified on pathology from [place] flap (12) CAD (coronary artery disease): no obvious ischemic symptoms at this time. s/p cath last month with stable CAD. -continue ASA metoprolol -holding statin for shock liver (13) PVD (peripheral vascular disease): Patient denies claudication symptoms of legs but he clearly has PAD given his poor pulses on exam. -holding statin as above -Continue aspirin (14) Physical deconditioning: ongoing has gotten severely deconditioned due to numerous comorbidities and frequent hospital stays rehab potential fair given his extreme BEE even with minimal exertion (15) Severe protein-calorie malnutrition: ongoing multifactorial (16) Foot drop, left: likely peroneal nerve compression from crossing legs and from LE edema -give lasix 20mg po extra dose this afternoon -advised to stop crossing his legs-is always crossing legs when I see him, but says "I alternate them" (17) Anemia: Hemoglobin remains low but stable at 9.9, previously secondary to anemia of chronic disease and iron deficiency -Remains on iron supplementation -Also with hypersegmented neutrophils and macrocytosis noted on today's peripheral smear -Check B12 level (18) DVT prophylaxis: heparin 5000 BID but hold morning for procedure (19) Complex care coordination: care d/w Dr. Srivastava, and pt's and daughter. I appreciate Dr. Srivastava's assistance as well as Palliative Care assistance with this gentleman' s care. He has very little reserve, if any at this point, and is just coming off significant shock liver, coagulopathy, and ATN/acute renal failure. He is incredibly sensitive to even small doses of sedatives. There is concern about potential for additional medical complications with any procedure of any type in the setting of still-recovering issues from last week ( again - shock liver, ATN, etc) and his ever-growing list of numerous comorbid conditions. Patient and his voiced that they understand all of this. Hopefully with sedation as opposed to General Anesthesia, these risks will be minimized. Alternative is to not do surgery and risk recurrent PNAs, side effecs of continuous/frequent antibiotic therapy, etc. At this point I believe the plan is still for home with hospice at discharge ( or SNF with hospice if patient's family cannot care for him at home) but the patient periodically states he "wants everything done to get better." Dispo-remain on Surgical floor PT/OT pam DNR Subjective Patient has the same complaint today of shortness of breath with having to urinate which resolves right after that. He is ambulating in the halls and has some shortness of breath with that. Has been some pain in the left chest at the site of previous surgery. No abdominal pain or nausea. He is moving his bowels. He is tolerating p.o. He reports today that his left foot is unable to flex upward since this morning He also reports significant swelling in the legs Review of Systems All systems reviewed & are unremarkable except as noted in HPI & below Physical Exam 2 Vital Signs (Past 24 Hours): Last Vital Signs Temp 36.3 C L 11/29/18 11:20 Pulse 98 H 11/29/18 11:20 Resp 18 11/29/18 11:20 BP 106/72 11/29/18 11:20 Pulse Ox 94 11/29/18 11:20 Constitutional: + ill appearing (chronically ), + thin and + cachectic; no acute distress Eyes: PERRL, conjunctivae normal, anicteric sclerae ENMT: external ear and nose normal, oropharynx normal Neck: trachea midline, no thyromegaly Respiratory: normal respiratory effort; no labored breathing (but does the "pursed lips" breathing when not talking) Auscultation: no wheezes Cardiovascular: Rate/Rhythm: regular rate and regular rhythm Heart Sounds: no murmur Vessels: dorsalis pedis pulses present Extremities: + edema (2+ pitting edema ankles and feet bilaterally, 1+ pitting edema to the knees bilaterally) Chest (Breasts): Chest: + abnormal inspection of chest (Left superior anterior chest wall with thick dressing in place, C/D/I) Gastrointestinal (Abdomen): normal bowel sounds, soft, nontender, no hepatosplenomegaly Musculoskeletal: Extremities: extremities normal to inspection; no cyanosis and no clubbing Skin: no rashes, warm and dry Neurologic: + focal motor deficit (Has an isolated left foot drop, otherwise full strength throughout bilateral lower extremities) and awake Psychiatric: Orientation: alert and oriented x 3 Affect: + anxious affect Results & Data Laboratory Results 11/30/18 11/29/18 11/29/18 Range/Units 06:04 20:26 16:48 Hypersegmented Neuts Polychromasia Macrocytosis Sodium (136-145) mmol/L Potassium (3.5-5.1) mmol/L Chloride (98-107) mmol/L Carbon Dioxide (21-32) mmol/L Anion Gap (3-11) BUN (7-18) mg/dl Creatinine (0.6-1.4) mg/dl Est Cr Clr Drug Dosing ml/min Est GFR ( Amer) Est GFR (Non-Af Amer) BUN/Creatinine Ratio (10-20) Glucose (70-99) mg/dl POC Glucose 89 130 H 205 H (70-99) Calcium (8.5-10.1) mg/dl Total Bilirubin (0.2-1) mg/dl Direct Bilirubin (0-0.2) mg/dl AST (15-37) U/L ALT (12-78) U/L Alkaline Phosphatase (45-117) U/L Total Protein (6.4-8.2) gm/dl Albumin (3.4-5.0) gm/dl 11/29/18 11/29/18 11/29/18 Range/Units 12:03 07:52 06:30 Hypersegmented Neuts Polychromasia Macrocytosis Sodium 139 (136-145) mmol/L Potassium 3.8 (3.5-5.1) mmol/L Chloride 105 (98-107) mmol/L Carbon Dioxide 27 (21-32) mmol/L Anion Gap 7.0 (3-11) BUN 40 H (7-18) mg/dl Creatinine 1.34 (0.6-1.4) mg/dl Est Cr Clr Drug Dosing 37.4 ml/min Est GFR ( Amer) 59.6 Est GFR (Non-Af Amer) 51.5 BUN/Creatinine Ratio 29.6 H (10-20) Glucose 120 H (70-99) mg/dl POC Glucose 189 H 131 H (70-99) Calcium 8.5 (8.5-10.1) mg/dl Total Bilirubin 0.9 (0.2-1) mg/dl Direct Bilirubin 0.5 H (0-0.2) mg/dl AST 88 H (15-37) U/L ALT 397 H (12-78) U/L Alkaline Phosphatase 633 H (45-117) U/L Total Protein 6.1 L (6.4-8.2) gm/dl Albumin 2.1 L (3.4-5.0) gm/dl 11/29/18 Range/Units 06:30 Hypersegmented Neuts 1+ Polychromasia 1+ Macrocytosis Present Sodium (136-145) mmol/L Potassium (3.5-5.1) mmol/L Chloride (98-107) mmol/L Carbon Dioxide (21-32) mmol/L Anion Gap (3-11) BUN (7-18) mg/dl Creatinine (0.6-1.4) mg/dl Est Cr Clr Drug Dosing ml/min Est GFR ( Amer) Est GFR (Non-Af Amer) BUN/Creatinine Ratio (10-20) Glucose (70-99) mg/dl POC Glucose (70-99) Calcium (8.5-10.1) mg/dl Total Bilirubin (0.2-1) mg/dl Direct Bilirubin (0-0.2) mg/dl AST (15-37) U/L ALT (12-78) U/L Alkaline Phosphatase (45-117) U/L Total Protein (6.4-8.2) gm/dl Albumin (3.4-5.0) gm/dl _ (1) Insomnia Insomnia type: unspecified Qualified Code(s): G47.00 - Insomnia, unspecified (2) CAD (coronary artery disease) Associated angina: without angina Coronary Disease-Associated Artery/Lesion type: [place] artery [place] vs. transplanted heart: deering heart Qualified Code (s): I25.10 - Atherosclerotic heart disease of [place] coronary artery without angina pectoris (3) Altered mental status Altered mental status type: somnolence Coma depth: Coma timing: Qualified Code(s): R40.0 - Somnolence (4) RLL pneumonia Aspiration pneumonia type: Pneumonia type: due to unspecified organism Qualified Code(s): J18.1 - Lobar pneumonia, unspecified organism (5) Anemia Anemia type: unspecified type Bone marrow failure anemia type: Chronic kidney disease stage: Folate deficiency anemia type: Hemolytic anemia type: Iron deficiency anemia type: Other causes of anemia: Vitamin B12 deficiency anemia type: Qualified Code(s): D64.9 - Anemia, unspecified
[2018-11-29] MEDS ORDERED: FUROSEMIDE 20 MG TAB PO ONE (15:00)
[2018-11-29] MEDS ORDERED: Nursing to Pharmacy Communication ONE (15:01)
[2018-11-29] MEDS: MoRPHine SULFATE 5 MG/0.25 ML UDP PO SCH (20:52)
[2018-11-29] MEDS: MELATONIN 1 MG PO SCH (22:01)
--- NOTE | 2018-11-30 05:04 | Anesthesiology Consultation ---
Date of Service November 30, 2018 Assessment & Plan (1) Encounter for pre-operative examination: Additional Notes Very high risk patient with multiple severe comorbidities including acute respiratory failure secondary to resolving RLL pneumonia, severe acute on chronic CHF, recent left-sided lung surgery and CHATA cavitation with fungal ball and recent left anterior eloesser flap procedure. Pt also with new onset shock liver and secondary coagulaopthy since recent surgical procedure and acute kidney injury. PMH also significant for small cell lung cancer, CAD and cardiomyopathy with EF of 15 to 20%, and PVD. NPO Date Last Intake of Fluids: 11/19/18 Time Last Intake of Fluids: 09:00 Last Intake of Fluids Comment: Sip of water with pills Date Last Intake of Solids: 11/18/18 Time Last Intake of Solids: 22:00 History Surgery Operation Date: 11/19/18 12:30 Proposed Procedures p Left Anterior Eloesser Flap - Aguilar Srivastava MD, FACS Operation Date: 11/30/18 08:15 Proposed Procedures p Debridement Eloesser Flap with Implantation of Antibiotic Beadas - Aguilar Srivastava MD, FACS Height/Weight Height: 5 ft 7 in Weight: 55.5 kg Allergies Allergy/AdvReac Type Severity Reaction Status Date / Time No Known Allergies Allergy Verified 11/11/18 15:07 Medications Home Medications Medication Instructions Recorded Confirmed Last Taken ferrous sulfate 325 mg PO BID 09/17/18 11/11/18 11/11/18 12:00 finasteride 5 mg PO QAM 09/17/18 11/11/18 11/11/18 12:00 magnesium oxide 400 mg PO QAM 09/17/18 11/11/18 11/11/18 12:00 metformin 1,000 mg PO BID 09/17/18 11/11/18 11/11/18 12:00 multivitamin with minerals 1 tab PO QAM 09/17/18 11/11/18 11/11/18 12:00 [Multiple Vitamin-Minerals] pantoprazole 40 mg PO QAM 09/17/18 11/11/18 11/11/18 12:00 aspirin 81 mg PO QAM 10/14/18 11/11/18 11/11/18 12:00 cyanocobalamin (vitamin B-12) 1,000 mcg PO QAM #30 tab 10/27/18 11/11/1811/11/ 19 12:00 [Vitamin B-12] melatonin 1 mg PO HS #30 tab 10/27/18 11/11/18 11/10/18 metoprolol succinate 12.5 mg PO QAM #30 tab 10/27/18 11/11/18 11/11/18 12:00 nitroglycerin 0.4 mg SUBLINGUAL Q5M PRN #30 tab 10/27/18 11/11/18 Unknown nut.tx.gluc intol,lf,soy-fiber 1 ea PO TIDM #6399 ml 10/27/18 11/11/18 Unknown [Boost Glucose Control] furosemide [Lasix] 20 mg PO Q OTHER DAY 11/11/18 11/11/18 Unknown insulin aspart U-100 [Novolog 0 sliding scale dose SUBCUT ACHS 11/11/18 Unknown Flexpen U-100 Insulin] potassium chloride [Klor-Con M20] 20 meq PO Q OTHER DAY 11/11/18 11/11/18 Unknown Active Medications Generic Name Dose Route Start Last Admin Trade Name Freq PRN Reason Stop Dose Admin Aspirin 81 mg 11/12/18 09:00 11/29/18 08:47 Ecotrin Ectab PO 12/12/18 08:59 81 mg QAM NORMA Administration Cyanocobalamin 1,000 mcg 11/12/18 09:00 11/29/18 08:47 Vitamin B-12 PO 12/12/18 08:59 1,000 mcg QAM NORMA Administration Ferrous Sulfate 325 mg 11/11/18 21:00 11/29/18 20:53 Feosol PO 12/11/18 20:59 325 mg BID NORMA Administration Finasteride 5 mg 11/12/18 09:00 11/29/18 08:48 Proscar PO 12/12/18 08:59 5 mg QAM NORMA Administration Furosemide 20 mg 11/16/18 11:00 11/29/18 08:48 Lasix PO 12/16/18 10:59 20 mg QAM NORMA Administration Heparin Sodium (Porcine) 5,000 units 11/28/18 09:00 11/29/18 20:55 Heparin Sodium (Porcine) SQ 12/28/18 08:59 5,000 units Q12 NORAM Administration Caspofungin 35 mg/ Sodium 257 mls @ 250 mls/hr 11/26/18 10:00 11/29/18 10:42 Chloride IV 12/26/18 09:59 Infused Q24H NORMA Infusion Protocol Insulin Glargine 5 units 11/25/18 09:00 11/29/18 08:50 Lantus Solostar Pen SC 12/25/18 08:59 5 units QAM NORMA Administration Lactobacillus Acidophilus 1 tab 11/24/18 17:00 11/29/18 18:33 Floranex PO 12/24/18 16:59 1 tab TIDM NORMA Administration Magnesium Oxide 400 mg 11/12/18 09:00 11/29/18 08:48 Mag-Ox PO 12/12/18 08:59 400 mg QAM NORMA Administration Metoprolol Succinate 12.5 mg 11/12/18 09:00 11/29/18 08:47 Toprol Xl PO 12/12/18 08:59 12.5 mg QAM NORMA Administration Miscellaneous 15 - 30 gm 11/11/18 19:58 11/22/18 01:22 Carbohydrates For Hypoglycemia PO 12/11/18 19:57 15 gm UD PRN Administration Hypoglycemia Treatment Morphine Sulfate 5 mg 11/26/18 21:00 11/29/18 20:52 Roxanol PO 12/10/18 20:59 5 mg HS NORMA Administration Multivitamins/Minerals 1 tab 11/12/18 09:00 11/29/18 08:47 Multivitamin W/ Minerals Tab PO 12/12/18 08:59 1 tab QAM NORMA Administration Melatonin 1mg - 1 ea 11/29/18 21:00 11/29/18 22:01 Patient's Own Med PO 12/29/18 20:59 Not Given HS NORMA Pantoprazole Sodium 40 mg 11/12/18 09:00 11/29/18 08:47 Protonix PO 12/12/18 08:59 40 mg QAM NORMA Administration Past Medical History Medical History Aspergillus fumigatus Acute on chronic systolic (congestive) heart failure OR (myocardial infarction) (Resolved) Small cell lung cancer (Acute 01/27/16) "DIAGNOSIS: Lung, CHATA, small cell lung carcinoma, [id number], stage IIIA TREATMENT: 1. Status post completion of combined radiation and chemotherapy. Radiation completed 05/02/2016 received 7000 cGy 2. 2 addition cycles of cisplatin/etoposide - Dr. Jeffery Ash" On 05/09/16 13:18 Beatris Curiel wrote "DIAGNOSIS: Lung, CHATA, small cell lung carcinoma, [id number], stage IIIA, limited stage Status post completion of combined radiation and chemotherapy. Radiation completed 05/02/2016 received 7000 cGy" On 05/09/16 12:53 Beatris Curiel wrote "DIAGNOSIS: Lung, CHATA, small cell lung carcinoma, [id number], stage IIIA, limited stage Status post completion of combined radiation and chemotherapy. Radiation completed 05/01/2016 received 7000 cGy" On 02/23/16 13:12 Jacinta Poole wrote "DIAGNOSIS: Lung, CHATA, small cell lung carcinoma, [id number], stage IIIA, limited stage" CAD (coronary artery disease) PVD (peripheral vascular disease) Hx of myocardial infarction HTN (hypertension) BPH (benign prostatic hyperplasia) HLD (hyperlipidemia) Anemia CKD stage 3 due to type 2 diabetes mellitus COPD (chronic obstructive pulmonary disease) DM II (diabetes mellitus, type II), controlled Consolidation lung Left upper lobe pneumonia Pneumonia Past Family History Family History Other Diabetes Heart disease Past Surgical History Surgical History History of transurethral resection of prostate History of heart artery stent (Chronic) Social History Smoking Status: Former smoker Do You Dip or Chew Tobacco: No Hx Alcohol Use: No Hx Substance Use: No Physical Exam Vital Signs Last Vital Signs Temp 37.0 C 11/29/18 23:04 Pulse 100 H 11/29/18 23:04 Resp 20 11/29/18 23:04 BP 93/60 L 11/29/18 23:04 Pulse Ox 96 11/29/18 23:04 Testing Electrocardiogram Date: 11/11/18 Findings: + ST @ (124) Possible Inferior infarct (cited on or before 11-NOV-2018) Abnormal ECG When compared with ECG of 20-OCT-2018 15:48, Premature ventricular complexes are no longer Present Chest X-Ray Date: 11/27/18 IMPRESSION: 1. Pulmonary emphysema 2. Decreasing left-sided subcutaneous emphysema 3. Left lung volume loss likely postsurgical 4. Stable left apical pleural thickening 5. Stable blunting of the lateral costophrenic angles 6. Extensive right lower lung zone airspace opacities unchanged 7. Stable ill-definition of the left hemidiaphragm, suggesting left basilar atelectasis/consolidation. Echocardiogram Date: 05/27/18 EF: 15-20% LV Function: dysfunctional RWMA: + akinetic (some segments akinetic. Best function in inferior wall.) and + hypokinetic (global hypokinesis.) Laboratory Results 11/29/18 06:30 11/29/18 06:30 Blood Type O Positive 11/19/18 05:54 Antibody Screen NEGATIVE 11/19/18 05:54 PT 12.9 Seconds (9.0-12.0) H 11/29/18 06:30 INR 1.3 (0.9-1.1) H 11/29/18 06:30 Urine Color Yellow 11/27/18 17:30 Urine Appearance Cloudy (Clear) H 11/27/18 17:30 Urine pH 5.0 (4.5-7.5) 11/27/18 17:30 Ur Specific Secor 1.017 (1.000-1.030) 11/27/18 17:30 Urine Protein Negative (Negative) 11/27/18 17:30 Urine Glucose (UA) Negative (Negative) 11/27/18 17:30 Urine Ketones Negative (Negative) 11/27/18 17:30 Urine Nitrite Negative (Negative) 11/27/18 17:30 Ur Leukocyte Esterase Negative (Negative) 11/27/18 17:30 Urine WBC (Auto) 5-10 /hpf (0-5) H 11/27/18 17:30 Urine RBC (Auto) 5-10 /hpf (0-4) H 11/27/18 17:30 U Hyaline Cast (Auto) 5-10 /lpf (0-5) H 11/27/18 17:30 U Epithel Cells (Auto) >30 /lpf (0-5) H 11/27/18 17:30 Urine Bacteria (Auto) Negative (Negative) 11/27/18 17:30 11/19/18 14:13 Fungal Smear - Final Pleural Fluid Fungal Culture - Preliminary No yeast or fungus isolated - Report 1, Additional Report to Follow. 11/19/18 14:45 Fungal Smear - Final Lung,Left Fungal Culture - Preliminary No yeast or fungus isolated - Report 1, Additional Report to Follow. 11/19/18 14:13 Gram Stain - Final Pleural Fluid Aerobic and Anaerobic Culture - Final No growth 11/19/18 14:45 Gram Stain - Final Lung,Left Aerobic and Anaerobic Culture - Final No growth 11/19/18 14:13 Acid Fast Bacilli Smear - Final Pleural Fluid Acid Fast Bacilli Culture - Preliminary No Acid-Fast Bacilli Isolated - Report 1, Additional Report to Follow. 11/19/18 14:45 Acid Fast Bacilli Smear - Final Lung,Left Acid Fast Bacilli Culture - Preliminary No Acid-Fast Bacilli Isolated - Report 1, Additional Report to Follow. 11/11/18 16:38 Blood Culture - Final Blood No growth 11/11/18 16:38 Blood Culture - Final Blood No growth 11/29/18 20:26 POC Glucose 130 H
[2018-11-30] MEDS ORDERED: INSULIN ASPART 100 UNITS/ML 3 ML PEN SC SCH (06:00)
[2018-11-30] MEDS ORDERED: Nursing to Pharmacy Communication ONE ×2 (07:18→10:46)
[2018-11-30 07:55] LABS: Basophils # (auto) 0.02 K/uL (0-0.2); Basophils % (auto) 0.2 %; Eosinophils # (auto) 0.12 K/uL (0-0.5); Eosinophils % (auto) 1.5 %; Hematocrit (blood only) 31.6 % (42-52); Hemoglobin 9.8 g/dL (14.0-18.0); Immature Granulocytes # (auto) 0.06 K/uL (0.00-0.02); Immature Granulocytes % (auto) 0.7 %; Lymphocytes # (auto) 0.78 K/uL (1.2-3.4); Lymphocytes % (auto) 9.7 %; Mean Corpuscular Volume 93.5 fL (80-100); Monocytes # (auto) 1.31 K/uL (0.11-0.59); Monocytes % (auto) 16.3 %; Neutrophils # (auto) 5.73 K/uL (1.4-6.5); Neutrophils % (auto) 71.6 %; Platelet Count 218 K/uL (130-400); RDW Coefficient of Variation 24.8 % (11.5-14.5); RDW Standard Deviation 83.8 fL (36.4-46.3); Red Blood Count 3.38 M/uL (4.7-6.1); White Blood Count 8.02 K/uL (4.8-10.8)
[2018-11-30 08:00] LABS: INR 1.2 (0.9-1.1); Prothrombin Time 12.3 Seconds (9.0-12.0)
[2018-11-30] MEDS: ASPIRIN 81 MG ECTAB PO SCH (08:04)
[2018-11-30] MEDS: FUROSEMIDE 20 MG TAB PO SCH (08:04)
[2018-11-30] MEDS: CEROVITE ADV FORMULA TAB PO SCH (08:04)
[2018-11-30] MEDS: LACTOBACILLUS ACIDOPHILUS (FLORANEX) TAB PO SCH ×3 (08:04→18:01)
[2018-11-30] MEDS: PANTOprazole 40 MG TAB PO SCH (08:04)
[2018-11-30] MEDS: FERROUS SULFATE 325 MG TAB PO SCH ×2 (08:04→21:25)
[2018-11-30] MEDS: CYANOCOBALAMIN 500 MCG TABLET (VITAMIN B-12) PO SCH (08:04)
[2018-11-30] MEDS: FINASTERIDE 5 MG TAB PO SCH (08:04)
[2018-11-30] MEDS: METOPROLOL SUCC 25MG EXT REL TAB PO SCH (08:04)
[2018-11-30] MEDS: MAGNESIUM OXIDE 400 MG TAB PO SCH (08:04)
[2018-11-30 08:15] LABS: Anisocytosis Present; Polychromasia 1+
--- NOTE | 2018-11-30 08:20 | History & Physical Bridge Note ---
Date of Service November 30, 2018 History & Physical Bridge Note I have examined the patient, reviewed the History & Physical and in the interval since the performance of the History & Physical I have noted the following changes of clinical significance: no changes noted
[2018-11-30 08:28] LABS: Albumin Level 2.2 gm/dl (3.4-5.0); BUN Creatinine Ratio 29.4 (10-20); Bilirubin Direct 0.5 mg/dl (0-0.2); Calcium 8.5 mg/dl (8.5-10.1); Creatinine Clr Calc Pharmacy 39.3 ml/min; Est GFR (African American) 61.3; Est GFR (Non-African American) 52.9; Potassium 3.9 mmol/L (3.5-5.1)
[2018-11-30] MEDS ORDERED: VORICONAZOLE IV SCH (08:30)
[2018-11-30 08:31] LABS: Total Protein 6.5 gm/dl (6.4-8.2)
[2018-11-30] MEDS ORDERED: MIDAZOLAM HCL 1 MG/ML 2ML VIAL ONE ×2 (08:35→09:44)
[2018-11-30] MEDS ORDERED: LIDOCAINE HCL 2% 2 ML VIAL/AMP(20MG/ML) INFIL ONE (08:35)
[2018-11-30] MEDS ORDERED: PROPOFOL IV EMULSION 10 MG/ML 20 ML VIAL IV ONE (08:35)
[2018-11-30] MEDS ORDERED: fentaNYL citrate 100 MCG/2 ML VIAL ONE (08:35)
[2018-11-30] MEDS ORDERED: KETAMINE HCL INJ 50 MG/ML 10 ML VIAL ONE (08:36)
[2018-11-30] MEDS ORDERED: GENTAMICIN SULFATE 40 MG/ML 2 ML VIAL ONE (08:41)
[2018-11-30] MEDS ORDERED: VANCOMYCIN HCL 1000MG/20ML VIAL ONE (08:41)
[2018-11-30] MEDS ORDERED: BUPIVACAINE/EPINEPHRINE 0.5% MPF 1:200,000 30 ML VIAL ONE (09:04)
[2018-11-30] MEDS ORDERED: LIDOCAINE HCL 1% 20 ML VIAL ONE (09:05)
[2018-11-30] MEDS: CASPOFUNGIN 35 MG in SODIUM CHLORIDE 0.9% 250 ML IV SCH (09:40)
[2018-11-30] MEDS ORDERED: CEFAZOLIN 1000MG 1,000 MG/7.5 ML SYR IV SCH (09:45)
--- NOTE | 2018-11-30 09:58 | Post Operative Brief Note ---
Immediate Post Op Note v1 Date of Surgery November 30, 2018 Pre & Post Diagnosis Pre-op: S/p Eloesser flap for empyema Post-op: Same Procedure Operation Date: 11/30/18 08:15 Actual Procedures p Debridement Eloesser Flap with Implantation of Calcium Sulfate Beads(Left) - Aguilar Srivastava MD, FACS Surgeon Aguilar Srivastava MD, FACS Microstrategy Architect Developer Rui LOCK Estimated Blood Loss 5 Findings Consistent with Post-Op Diagnosis
[2018-11-30] MEDS ORDERED: ePHEDrine sulfate 50 MG/ML AMP IV PRN (10:00)
[2018-11-30] MEDS ORDERED: ATROPINE SULFATE 0.1 MG/ML 10ML SYR IV PRN (10:00)
[2018-11-30] MEDS ORDERED: OXYCODONE HCL IR 5 MG TAB (IMMEDIATE RELEASE) PO PRN (10:46)
--- NOTE | 2018-11-30 10:58 | XRay Report ---
XR chest 1V portable CLINICAL HISTORY: chest wound debridement COMPARISON STUDY: 11/27/2018 FINDINGS: Interval postoperative change left pulmonary apex. Placement of a therapeutic seeds/fragmen ts surrounded by circumferential suture line. Subcutaneous emphysema continues to improve. Chronic elevation left hemidiaphragm. Unchanging parench ymal infiltrative change right lung base. IMPRESSION: 1. Interval postoperative change left upper hemithorax as described. 2. No evidence pneumothorax. The above report was generated using voice recognition software. It may contain grammatical, syntax or spelling errors. Electronically signed by: Ezekiel Collier M.D. 11/30/2018 10:56 AM
--- NOTE | 2018-11-30 12:17 | Operative Report ---
DATE OF OPERATION: 11/30/2018 PREOPERATIVE DIAGNOSES: 1. Status post left anterior Eloesser flap for empyema. 2. 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 3. Status post chemotherapy and radiation for small cell lung carcinoma. POSTOPERATIVE DIAGNOSES: 1. Status post left anterior Eloesser flap for empyema. 2. 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 3. Status post chemotherapy and radiation for small cell lung carcinoma. PROCEDURES PERFORMED: 1. Debridement with re-suturing of Eloesser flap. 2. Implantation of calcium sulfate beads, reconstituted with Voriconazole, vancomycin, and gentamicin. SURGEON: Aguilar Srivastava MD GLASS INSTALLER: ASHVIN Ba ANESTHESIA: Local MAC. SPECIFICS OF PROCEDURE: Félix Aden is a 73-year-old status post a small cell lung carcinoma which was diagnosed almost 3 years ago. He underwent chemotherapy and radiation apparent and it appears that from an oncologic standpoint, he has no evidence of disease; however, his left upper lobe was essentially destroyed by the chemotherapy and radiation, he had a cavity that communicated with his bronchial tree. The patient has an ischemic cardiomyopathy and he has renal insufficiency and he is malnourished. He continues to contaminate his bronchial tree and has repeated pneumonias. I talked to the patient and his family and felt that an Eloesser flap despite everything else would probably be his only hope of surviving as he repeatedly became quite ill when he spilled over from this cavity which connected directly with his left mainstem bronchus. Finally, agreed in about 2 weeks ago, I performed an Eloesser flap. I have been quite happy with it except that it has not been healing as I hoped. It was not surprising that we saw Aspergillus organisms in the lung tissue which we debrided. The patient does not do well with antibiotics and he has not been eating well, although he is improved since the surgery. I felt that implantation of antibiotic beads would give us local therapy and decrease the need for systemic antibiotics and antifungal agents. In addition, I think it will help the healing. On 11/30/2018, the patient underwent an uncomplicated re-suturing of the upper flap to the inner chest wall. I only placed 2-0 Prolene sutures and this worked nicely. I lightly debrided the patient, but his actual lung is present. I had used a DeBakey sponge really to debride this. I then implanted 3 grams of vancomycin with 200 mg of voriconazole and about 800 mg of gentamicin. These will slowly elute over the next several weeks. We filled the cavity with this and then stapled Acticoat Flex over it. He tolerated it quite well with no blood loss. DESCRIPTION OF PROCEDURE: The patient was brought to the operating room and laid in supine position. IV sedation was given. After prophylactic antibiotics and appropriate timeout had been called, we removed the dressings from his anterior upper chest Eloesser flap. On close inspection, it was fairly clean, but still was not healing the way we wanted it to. I used 1% Xylocaine mixed with bupivacaine to inject in a field block around the entire area. He had some mild discomfort, but actually tolerated it well. I then used two #1 Prolene sutures to suture the upper flap x2 sutures to the inner chest wall x3 to keep this open. This looked quite good. A 40 mL total of the BioComposite Stimulan beads were mixed with 800 mg of gentamicin and 3 grams of vancomycin. This created beads. We were then able to make these beads. When they had set, we took them out of their molds and completely filled this entire area with the beads. We placed the Voriconazole beads down into the depth of the wound across the lung. This filled quite nicely. We then stapled Acticoat Flex to the opening to keep the beads in place. We are going to place a wound VAC at a later date. He tolerated it quite well. I attest to the content of the Intraoperative Record and any orders documented therein. Any exception s are noted below.
[2018-11-30] MEDS: INSULIN ASPART 100 UNITS/ML 3 ML PEN SC SCH ×3 (12:55→21:27)
--- NOTE | 2018-11-30 16:26 | Palliative Care Progress Note ---
Date of Service November 30, 2018 Assessment & Plan (1) Palliative care encounter: Patient is a 72-year-old male known to our service from his last admission in October who presented on 127 with increased shortness of breath and increased lower edema. [facility] a few days prior to admission. Patient's admission in October was complicated by STEMI and required intubation - pt improved and went to rehab. Met with patient as well as his and daughter, a lifelong friend was also present during the interview. Past medical history is significant for aspergilloma and recurrent pneumonias- patient is status post Eloesser flap on 11/19 - Patient reports he feels his breathing has improved since the procedure. Patient has ICM O with an EF of 15% , chronic CHF, CKD stage III, COPD, small cell lung cancer diagnosed 2-1/2 years ago-status post chemo/XRT, DM II and BPH. Due to to poor tolerance of IV antifungals-patient returned to the OR on 11/30 for placement of beads saturated with voriconazole/vancomycin/gentamicin. Discussed CODE STATUS-patient continues to want aggressive treatment as well as full resuscitation. Discussed possible short stay at rehab if patient's goal is to regain more strength before returning home. Have had prior discussions regarding discharge home with home health versus discharge home under hospice care depending on the patient's goals at that time. - Aspergilloma -status post Eloesser flap, status post beats placed in left chest-saturated with voriconazole/vancomycin/gent - Small cell lung cancer-surgical specimens were negative for malignancy - CHF-continue Lasix as tolerated, monitor BMPs - CKD stage III-baseline creatinine approximately 1.1-creatinine today 1.31 - ICMO-EF 15%-discussed at length on prior visits the limitations that his cardiac status places on his activity, discussed energy conserving modalities when at home Will continue to follow and assist with medical decision making. (2) Cavitary pneumonia: Status post Eloesser flap-respiratory status improved (3) Aspergillus fumigatus: Status post bead packing of left chest with beads impregnated with voriconazole, Vantin, Gent (4) CHF (congestive heart failure): Acute on chronic CHF-stable (5) Elevated LFTs: LFTs slowly trending downward (6) Ischemic cardiomyopathy: EF 15%-patient would qualify for hospice based on this diagnosis alone, patient on maximum medical therapy. (7) Small cell lung cancer: Stable Subjective Patient's , daughter and lifelong friend at bedside. Patient had recently returned from the OR where he had calcium sulfate beads saturated with voriconazole/vancomycin/gentamicin placed in left chest Patient has been working with PT and has been ambulating 3 times daily-patient feels he is getting stronger. Discussed with patient and family that when he is medically cleared for discharge if he would consider a short stay in rehab to regain more strength. Review of Systems Patient denies fever, chills, chest pain, increased shortness of breath, or GI issues Physical Exam 2 Vital Signs (Past 24 Hours): Last Vital Signs Temp 36.8 C 11/30/18 15:00 Pulse 105 H 11/30/18 15:00 Resp 22 11/30/18 15:00 BP 108/77 11/30/18 15:00 Pulse Ox 94 11/30/18 15:00 Physical Exam: Patient appears slightly less fatigued than compared to prior exam HEENT: EOMI, normal hearing Respiratory status stable-purse lipped breathing at times, mild increased shortness of breath with conversation CV: Tachycardic, no edema Abdomen: Soft, nontender Neuro: Alert and oriented x4 Time Spent Attending Total time spent 35 minutes with greater than 50% of time spent at bedside assessing patient and discussing goals of care. _ (1) CHF (congestive heart failure) Heart failure chronicity: acute on chronic Heart failure type: unspecified Qualified Code(s): I50.9 - Heart failure, unspecified
--- NOTE | 2018-11-30 19:17 | Hospitalist Progress Note ---
Date of Service November 30, 2018 Assessment & Plan (1) Acute respiratory failure with hypoxia: Ongoing o2 requirement. Now slightly increased requirement due to recent surgery this morning with wound debridement of the Elo[place]er flap and antibiotic bead placement Also secondary to RLL pneumonia, severe CHF, recent left-sided lung surgery, large CHATA cavitation with fungal ball, etc. Cont o2 support to keep POx>90% (2) Altered mental status: Occurred on AM of 11/27--> now resolved except today with slight confusion likely secondary to recent anesthesia/sedation -Follow (3) Shock liver: likely due to low-flow state in the setting of surgery last week. LFTs continue to improve today Had concomitant ATN as well. Continue to follow LFTs and INR in am especially in the setting of a repeat procedure today. Continue holding lipitor, tylenol, voriconazole, etc. (4) Coagulopathy: Secondary to shock liver. ammonia level again normal INR continues to trend down. recheck INR in AM (5) Acute kidney injury: Secondary to ATN in setting of perioperative hypotension (presumed). creatinine improved again today BMP in am especially given repeat sedation today and risk of recurrent ATN (6) Insomnia: In light of dyspnea, anxiety, pain -continue scheduled PO morphine 5mg at HS- has helped (7) RLL pneumonia: clinically resolved; completed full course of IV abx this admission. Chest x-ray with persistent radiographic infiltrate in the right lower lobe (8) Aspergillus fumigatus: fungal ball, CHATA. unable to use IV voriconazole in setting of shock liver. ID (Dr. Rodriguez) recommending daily IV caspofungin. I spoke with Dr. Rodriguez - ideally he would need 6-8 weeks of antifungal Rx w/ caspofungin. Thoracic Surgery has now packed voriconazole soaked beads in the chest cavity -in light of the abx beads, and after discussion with thoracic surgery-we will discontinue IV Caspo moving forward (9) Acute on chronic systolic (congestive) heart failure: He developed significant lower extremity edema after holding lasix for ATN for several days-now improved PO lasix resumed on 11/27 and gave an extra dose of Lasix 20 mg on 11/29 cont low-dose BB. -Continue daily weights, strict I's and O's (10) Cavitary lesion of lung: CHATA, s/p Left Anterior Eloesser Flap by Dr. Srivastava Now with wound debridement on 11/30 and antibiotic bead placement with voriconazole, vancomycin, and gentamicin-soaked beads -D seen IV caspofungin as above -We will check vancomycin and gentamicin levels on 12/02 No malignancy seen on pathology (11) Small cell lung cancer: CHATA - history of such, s/p CHATA lobectomy 2 years ago -no malignancy identified on pathology from [place] flap (12) CAD (coronary artery disease): no obvious ischemic symptoms at this time. s/p cath last month with stable CAD. -continue ASA metoprolol -holding statin for shock liver (13) PVD (peripheral vascular disease): Patient denies claudication symptoms of legs but he clearly has PAD given his poor pulses on exam. -holding statin as above -Continue aspirin (14) Physical deconditioning: ongoing has gotten severely deconditioned due to numerous comorbidities and frequent hospital stays rehab potential fair given his extreme BEE even with minimal exertion (15) Severe protein-calorie malnutrition: ongoing multifactorial -Continue boost shakes (16) Foot drop, left: likely peroneal nerve compression from crossing legs and from LE edema- continues today but slightly improved with reduction in lower extremity edema He continues to cross his legs daily-offered to place a pillow between his thighs to keep him from doing so and he declined -Follow (17) Anemia: Hemoglobin remains low but stable at 9.9, previously secondary to anemia of chronic disease and iron deficiency -Remains on iron supplementation -Also with hypersegmented neutrophils and macrocytosis noted on peripheral smear -Check B12 level in the morning (18) DVT prophylaxis: heparin 5000 BID (19) Complex care coordination: With prolonged stay with multiple procedures, recurrent GHANSHYAM/ATN, shock liver, severe CHF, and recurrent infections with Aspergillus and cavitary lesion all confounding factors. Hopeful for improvement from pulmonary standpoint with his recent thoracic surgery Dispo-remain on Surgical floor PT/OT pam DNR Subjective Patient had his procedure today to pack the antibiotic beads into his Eloesser flap. He feels a little drowsy and I saw him this evening, but he is tolerating p.o. Denies chest pain. He is having some itching at the surgical site. I discussed the case with the thoracic surgeon. Review of Systems All systems reviewed & are unremarkable except as noted in HPI & below Physical Exam 2 Vital Signs (Past 24 Hours): Last Vital Signs Temp 36.8 C 11/30/18 15:00 Pulse 105 H 11/30/18 15:00 Resp 22 11/30/18 15:00 BP 108/77 11/30/18 15:00 Pulse Ox 94 11/30/18 15:00 Constitutional: + ill appearing (Chronically ill-appearing) and + thin Eyes: PERRL, conjunctivae normal, anicteric sclerae ENMT: external ear and nose normal, oropharynx normal (Mucous membranes moist ) Neck: trachea midline, no thyromegaly Respiratory: normal respiratory effort (With air leak coming from looser flap , no wheezing or crackles) Cardiovascular: Rate/Rhythm: regular rate and regular rhythm Heart Sounds: no murmur Extremities: + edema (Trace pitting edema in the legs to the mid tibia bilaterally-improved from previous) Gastrointestinal (Abdomen): normal bowel sounds, soft, nontender, no hepatosplenomegaly Musculoskeletal: Extremities: extremities normal to inspection; no cyanosis and no clubbing Skin: no rashes, warm and dry Neurologic: moves all extremities, + focal motor deficit (Left foot still with drop-3 out of 5 strength with left ankle worse with flexion) and awake Psychiatric: Orientation: alert (But seems a little more confused than usual) Results & Data Laboratory Results 11/30/18 11/30/18 11/30/18 Range/Units 17:04 11:55 07:39 WBC (4.8-10.8) K/uL RBC (4.7-6.1) M/uL Hgb (14.0-18.0) g/dL Hct (42-52) % MCV (80-100) fL MCH (25-34) pg MCHC (32-36) g/dL RDW Std Deviation (36.4-46.3) fL RDW Coeff of Molly (11.5-14.5) % Plt Count (130-400) K/uL MPV (7.4-10.4) fL Immature Gran % (Auto) % Neut % (Auto) % Lymph % (Auto) % [place] % (Auto) % Eos % (Auto) % Baso % (Auto) % Immature Gran # (Auto) (0.00-0.02) K/uL Neut # (Auto) (1.4-6.5) K/uL Lymph # (Auto) (1.2-3.4) K/uL [place] # (Auto) (0.11-0.59) K/uL Eos # (Auto) (0-0.5) K/uL Baso # (Auto) (0-0.2) K/uL Polychromasia Anisocytosis PT (9.0-12.0) Seconds INR (0.9-1.1) Sodium 138 (136-145) mmol/L Potassium 3.9 (3.5-5.1) mmol/L Chloride 104 (98-107) mmol/L Carbon Dioxide 28 (21-32) mmol/L Anion Gap 6.0 (3-11) BUN 39 H (7-18) mg/dl Creatinine 1.31 (0.6-1.4) mg/dl Est Cr Clr Drug Dosing 39.3 ml/min Est GFR ( Amer) 61.3 Est GFR (Non-Af Amer) 52.9 BUN/Creatinine Ratio 29.4 H (10-20) Glucose 83 (70-99) mg/dl POC Glucose 179 H 91 (70-99) Calcium 8.5 (8.5-10.1) mg/dl Total Bilirubin 1.0 (0.2-1) mg/dl Direct Bilirubin 0.5 H (0-0.2) mg/dl AST 61 H (15-37) U/L ALT 316 H (12-78) U/L Alkaline Phosphatase 566 H (45-117) U/L Total Protein 6.5 (6.4-8.2) gm/dl Albumin 2.2 L (3.4-5.0) gm/dl 11/30/18 11/30/18 11/30/18 Range/Units 07:39 07:39 06:04 WBC 8.02 (4.8-10.8) K/uL RBC 3.38 L (4.7-6.1) M/uL Hgb 9.8 L (14.0-18.0) g/dL Hct 31.6 L (42-52) % MCV 93.5 (80-100) fL MCH 29.0 (25-34) pg MCHC 31.0 L (32-36) g/dL RDW Std Deviation 83.8 H (36.4-46.3) fL RDW Coeff of [place] 24.8 H (11.5-14.5) % Plt Count 218 (130-400) K/uL MPV 10.0 (7.4-10.4) fL Immature Gran % (Auto) 0.7 % Neut % (Auto) 71.6 % Lymph % (Auto) 9.7 % [place] % (Auto) 16.3 % Eos % (Auto) 1.5 % Baso % (Auto) 0.2 % Immature Gran # (Auto) 0.06 H (0.00-0.02) K/uL Neut # (Auto) 5.73 (1.4-6.5) K/uL Lymph # (Auto) 0.78 L (1.2-3.4) K/uL [place] # (Auto) 1.31 H (0.11-0.59) K/uL Eos # (Auto) 0.12 (0-0.5) K/uL Baso # (Auto) 0.02 (0-0.2) K/uL Polychromasia 1+ Anisocytosis Present PT 12.3 H (9.0-12.0) Seconds INR 1.2 H (0.9-1.1) Sodium (136-145) mmol/L Potassium (3.5-5.1) mmol/L Chloride (98-107) mmol/L Carbon Dioxide (21-32) mmol/L Anion Gap (3-11) BUN (7-18) mg/dl Creatinine (0.6-1.4) mg/dl Est Cr Clr Drug Dosing ml/min Est GFR ( Amer) Est GFR (Non-Af Amer) BUN/Creatinine Ratio (10-20) Glucose (70-99) mg/dl POC Glucose 89 (70-99) Calcium (8.5-10.1) mg/dl Total Bilirubin (0.2-1) mg/dl Direct Bilirubin (0-0.2) mg/dl AST (15-37) U/L ALT (12-78) U/L Alkaline Phosphatase (45-117) U/L Total Protein (6.4-8.2) gm/dl Albumin (3.4-5.0) gm/dl 11/29/18 Range/Units 20:26 WBC (4.8-10.8) K/uL RBC (4.7-6.1) M/uL Hgb (14.0-18.0) g/dL Hct (42-52) % MCV (80-100) fL MCH (25-34) pg MCHC (32-36) g/dL RDW Std Deviation (36.4-46.3) fL RDW Coeff of Molly (11.5-14.5) % Plt Count (130-400) K/uL MPV (7.4-10.4) fL Immature Gran % (Auto) % Neut % (Auto) % Lymph % (Auto) % [place] % (Auto) % Eos % (Auto) % Baso % (Auto) % Immature Gran # (Auto) (0.00-0.02) K/uL Neut # (Auto) (1.4-6.5) K/uL Lymph # (Auto) (1.2-3.4) K/uL [place] # (Auto) (0.11-0.59) K/uL Eos # (Auto) (0-0.5) K/uL Baso # (Auto) (0-0.2) K/uL Polychromasia Anisocytosis PT (9.0-12.0) Seconds INR (0.9-1.1) Sodium (136-145) mmol/L Potassium (3.5-5.1) mmol/L Chloride (98-107) mmol/L Carbon Dioxide (21-32) mmol/L Anion Gap (3-11) BUN (7-18) mg/dl Creatinine (0.6-1.4) mg/dl Est Cr Clr Drug Dosing ml/min Est GFR ( Amer) Est GFR (Non-Af Amer) BUN/Creatinine Ratio (10-20) Glucose (70-99) mg/dl POC Glucose 130 H (70-99) Calcium (8.5-10.1) mg/dl Total Bilirubin (0.2-1) mg/dl Direct Bilirubin (0-0.2) mg/dl AST (15-37) U/L ALT (12-78) U/L Alkaline Phosphatase (45-117) U/L Total Protein (6.4-8.2) gm/dl Albumin (3.4-5.0) gm/dl Diagnostic Findings Chest x-ray image personally reviewed by me and agree with the following report: XR chest 1V portable CLINICAL HISTORY: chest wound debridement COMPARISON STUDY: 11/27/2018 FINDINGS: Interval postoperative change left pulmonary apex. Placement of a therapeutic seeds/fragments surrounded by circumferential suture line. Subcutaneous emphysema continues to improve. Chronic elevation left hemidiaphragm. Unchanging parenchymal infiltrative change right lung base. IMPRESSION: 1. Interval postoperative change left upper hemithorax as described. 2. No evidence pneumothorax. _ (1) Altered mental status Altered mental status type: somnolence Coma depth: Coma timing: Qualified Code(s): R40.0 - Somnolence (2) Insomnia Insomnia type: unspecified Qualified Code(s): G47.00 - Insomnia, unspecified (3) RLL pneumonia Pneumonia type: due to unspecified organism Aspiration pneumonia type: Qualified Code(s): J18.1 - Lobar pneumonia, unspecified organism (4) CAD (coronary artery disease) Coronary Disease-Associated Artery/Lesion type: [place] artery [place] vs. transplanted heart: [place] heart Associated angina: without angina Qualified Code(s): I25.10 - Atherosclerotic heart disease of [place] coronary artery without angina pectoris (5) Anemia Anemia type: unspecified type Bone marrow failure anemia type: Chronic kidney disease stage: Folate deficiency anemia type: Hemolytic anemia type: Iron deficiency anemia type: Other causes of anemia: Vitamin B12 deficiency anemia type: Qualified Code(s): D64.9 - Anemia, unspecified
[2018-11-30] MEDS: MoRPHine SULFATE 5 MG/0.25 ML UDP PO SCH (21:24)
[2018-11-30] MEDS: MELATONIN 1 MG PO SCH (21:25)
[2018-11-30] MEDS: HEPARIN SOD 5,000 UNIT/0.5 ML VIAL SQ SCH (21:30)
--- NOTE | 2018-12-01 07:07 | XRay Report ---
XR chest 1V portable CLINICAL HISTORY: pneumonia COMPARISON STUDY: Chest radiograph November 30, 2018. FINDINGS: Left lung volume loss is unchanged. Radiodense beads within the left upper lung are noted w ith skin cy. Postoperative appearance is unchanged. There is no pneumothorax. Emphysema within t he right lung is noted. Right lower lung airspace opacity persists. IMPRESSION: No change in appearance of the chest. No pneumothorax. Persistent right basilar opacity and postoperative findings within the left upper lung/chest wall. Electronically signed by: Jose Prieto M.D. 12/01/2018 7:06 AM
[2018-12-01 07:42] LABS: Eosinophils # (auto) 0.08 K/uL (0-0.5); Hematocrit (blood only) 31.7 % (42-52); Hemoglobin 9.8 g/dL (14.0-18.0); Immature Granulocytes # (auto) 0.03 K/uL (0.00-0.02); Immature Granulocytes % (auto) 0.4 %; Lymphocytes % (auto) 7.7 %; Mean Corpuscular Hgb Conc 30.9 g/dL (32-36); Mean Corpuscular Volume 92.2 fL (80-100); Mean Platelet Volume 10.8 fL (7.4-10.4); Monocytes # (auto) 1.07 K/uL (0.11-0.59); Monocytes % (auto) 13.8 %; Neutrophils # (auto) 5.98 K/uL (1.4-6.5); Neutrophils % (auto) 77.1 %; Platelet Count 247 K/uL (130-400); RDW Coefficient of Variation 24.9 % (11.5-14.5); RDW Standard Deviation 82.6 fL (36.4-46.3); Red Blood Count 3.44 M/uL (4.7-6.1); White Blood Count 7.76 K/uL (4.8-10.8)
[2018-12-01 08:05] LABS: INR 1.3 (0.9-1.1); Prothrombin Time 12.7 Seconds (9.0-12.0)
[2018-12-01 08:14] LABS: Anisocytosis Present
[2018-12-01 08:16] LABS: Albumin Level 2.1 gm/dl (3.4-5.0); BUN Creatinine Ratio 32.5 (10-20); Bilirubin Direct 0.4 mg/dl (0-0.2); Calcium 9.1 mg/dl (8.5-10.1); Creatinine Clr Calc Pharmacy 46.8 ml/min; Est GFR (African American) 75.7; Est GFR (Non-African American) 65.3; Magnesium 1.7 mg/dl (1.8-2.4); Potassium 4.2 mmol/L (3.5-5.1)
[2018-12-01 08:18] LABS: Bilirubin,Total 0.8 mg/dl (0.2-1); Phosphorus 3.5 mg/dl (2.5-4.9); Total Protein 6.5 gm/dl (6.4-8.2)
[2018-12-01] MEDS: FERROUS SULFATE 325 MG TAB PO SCH ×2 (09:02→20:55)
[2018-12-01] MEDS: LACTOBACILLUS ACIDOPHILUS (FLORANEX) TAB PO SCH ×3 (09:02→18:06)
[2018-12-01] MEDS: ASPIRIN 81 MG ECTAB PO SCH (09:02)
[2018-12-01] MEDS: MAGNESIUM OXIDE 400 MG TAB PO SCH (09:03)
[2018-12-01] MEDS: FUROSEMIDE 20 MG TAB PO SCH (09:03)
[2018-12-01] MEDS ORDERED: FUROSEMIDE 20 MG TAB PO ONE (09:03)
[2018-12-01] MEDS: CEROVITE ADV FORMULA TAB PO SCH (09:03)
[2018-12-01] MEDS: PANTOprazole 40 MG TAB PO SCH (09:04)
[2018-12-01] MEDS: FINASTERIDE 5 MG TAB PO SCH (09:04)
[2018-12-01] MEDS: METOPROLOL SUCC 25MG EXT REL TAB PO SCH (09:04)
[2018-12-01] MEDS: CYANOCOBALAMIN 500 MCG TABLET (VITAMIN B-12) PO SCH (09:05)
[2018-12-01] MEDS: INSULIN GLARGINE SOLOSTAR 100 UNITS/ML 3 ML PEN SC SCH (09:06)
[2018-12-01] MEDS: INSULIN ASPART 100 UNITS/ML 3 ML PEN SC SCH ×5 (09:07→20:57)
[2018-12-01] MEDS: HEPARIN SOD 5,000 UNIT/0.5 ML VIAL SQ SCH ×2 (09:08→20:56)
[2018-12-01] MEDS ORDERED: MAGNESIUM SULFATE / D5W 1 GM/100 ML BAG IV ONE (09:15)
--- NOTE | 2018-12-01 10:23 | Hospitalist Progress Note ---
Date of Service December 01, 2018 Assessment & Plan (1) Acute respiratory failure with hypoxia: Ongoing o2 requirement. Now slightly increased requirement due to recent surgery with wound debridement of the Elo[place]er flap and antibiotic bead placement Also secondary to RLL pneumonia, severe CHF, recent left-sided lung surgery, large CHATA cavitation with fungal ball, etc. Cont o2 support to keep POx>90% (2) Altered mental status: Occurred on AM of 11/27--> now resolved (3) Shock liver: likely due to low-flow state in the setting of surgery last week. LFTs continue to improve today and has not had recurrence with this repeat surgery Had concomitant ATN as well which is also resolved. Continue to follow LFTs and INR in am especially in the setting of a repeat procedure on 11/30 Continue holding lipitor, tylenol, voriconazole, etc. (4) Coagulopathy: Secondary to shock liver. ammonia level normal INR trended downward and stable (5) Acute kidney injury: Secondary to ATN in setting of perioperative hypotension (presumed). creatinine improved and stable BMP in am especially given repeat sedation today and risk of recurrent ATN given repeat procedure on 11/30 (6) Insomnia: -continue scheduled PO morphine 5mg at HS (7) RLL pneumonia: clinically resolved; completed full course of IV abx this admission. Chest x-ray with persistent radiographic infiltrate in the right lower lobe but no signs of active infection (8) Aspergillus fumigatus: fungal ball, CHATA. unable to use IV voriconazole in setting of shock liver. ID (Dr. Rodriguez) recommending daily IV caspofungin. I spoke with Dr. Rodriguez - ideally he would need 6-8 weeks of antifungal Rx w/ caspofungin, hwoever has now been stopped due to packing with Voriconazole- soaked abx beads into the cavity on 11/30. -follow LFTs given possibility of voriconazole spreading systemically (9) Acute on chronic systolic (congestive) heart failure: He developed significant lower extremity edema after holding lasix for ATN for several days-now improved but weight is up 2 kg in the last few days PO lasix resumed on 11/27 and gave an extra dose of Lasix 20 mg on 11/29 cont low-dose BB. -Continue daily weights, strict I's and O's -Continue daily Lasix and give extra 80 mg today for a total of 40 in the morning (10) Cavitary lesion of lung: CHATA, s/p Left Anterior Eloesser Flap by Dr. Srivastava Now with wound debridement on 11/30 and antibiotic bead placement with voriconazole, vancomycin, and gentamicin-soaked beads -D seen IV caspofungin as above -We will check vancomycin and gentamicin levels on 12/02 No malignancy seen on pathology (11) Small cell lung cancer: CHATA - history of such, s/p CHATA lobectomy 2 years ago -no malignancy identified on pathology from [place] flap (12) CAD (coronary artery disease): no obvious ischemic symptoms at this time. s/p cath last month with stable CAD. -continue ASA metoprolol -holding statin for shock liver (13) PVD (peripheral vascular disease): Patient denies claudication symptoms of legs but he clearly has PAD given his poor pulses on exam. -holding statin as above -Continue aspirin (14) Physical deconditioning: ongoing has gotten severely deconditioned due to numerous comorbidities and frequent hospital stays rehab potential fair given his extreme BEE even with minimal exertion (15) Severe protein-calorie malnutrition: ongoing multifactorial -Continue boost shakes (16) Foot drop, left: likely peroneal nerve compression from crossing legs and from LE edema- continues today but slightly improved with reduction in lower extremity edema He continues to cross his legs daily-offered to place a pillow between his thighs to keep him from doing so and he declined -Follow (17) Anemia: Hemoglobin remains low but stable at 9.9, previously secondary to anemia of chronic disease and iron deficiency -Remains on iron supplementation -Also with hypersegmented neutrophils and macrocytosis noted on peripheral smear however B12 level is greater than 2000 (18) DVT prophylaxis: heparin 5000 BID (19) Complex care coordination: With prolonged stay with multiple procedures, recurrent GHANSHYAM/ATN, shock liver, severe CHF, and recurrent infections with Aspergillus and cavitary lesion all confounding factors. Hopeful for improvement from pulmonary standpoint with his recent thoracic surgery Dispo-remain on Surgical floor, hopeful for transition likely to rehab in the next few days PT/OT evals DNR Subjective Feeling ok, no complaints except his usual SOB. Is donya po Review of Systems All systems reviewed & are unremarkable except as noted in HPI & below Physical Exam 2 Vital Signs (Past 24 Hours): Last Vital Signs Temp 36.7 C 12/01/18 08:02 Pulse 110 H 12/01/18 08:02 Resp 18 12/01/18 08:02 BP 117/77 12/01/18 08:02 Pulse Ox 96 12/01/18 08:02 Constitutional: + ill appearing (Chronically ill-appearing), + thin and + cachectic; no acute distress Eyes: PERRL, conjunctivae normal, anicteric sclerae ENMT: external ear and nose normal, oropharynx normal (Mucous membranes moist ) Neck: trachea midline, no thyromegaly Respiratory: normal respiratory effort (With air leak coming from looser flap , no wheezing or crackles); no labored breathing (but does the "pursed lips" breathing when not talking) Auscultation: no wheezes Cardiovascular: RRR, no murmur, no edema Rate/Rhythm: regular rate and regular rhythm Heart Sounds: no murmur Vessels: dorsalis pedis pulses present Extremities: + edema (Trace pitting edema in the legs to the mid tibia bilaterally-improved from previous) Chest (Breasts): Chest: + abnormal inspection of chest (Left superior anterior chest wall with thick dressing in place, C/D/I) Gastrointestinal (Abdomen): normal bowel sounds, soft, nontender, no hepatosplenomegaly Musculoskeletal: Extremities: extremities normal to inspection; no cyanosis and no clubbing Skin: no rashes, warm and dry Neurologic: moves all extremities, + focal motor deficit (Left foot still with drop but improved to 4 out of 5 strength ) and awake Psychiatric: Orientation: oriented x 3 Affect: + anxious affect Results & Data Laboratory Results 12/02/18 12/02/18 12/02/18 Range/Units 05:47 05:47 05:47 WBC (4.8-10.8) K/uL RBC (4.7-6.1) M/uL Hgb (14.0-18.0) g/dL Hct (42-52) % MCV (80-100) fL MCH (25-34) pg MCHC (32-36) g/dL RDW Std Deviation (36.4-46.3) fL RDW Coeff of Molly (11.5-14.5) % Plt Count (130-400) K/uL MPV (7.4-10.4) fL Immature Gran % (Auto) % Neut % (Auto) % Lymph % (Auto) % [place] % (Auto) % Eos % (Auto) % Baso % (Auto) % Immature Gran # (Auto) (0.00-0.02) K/uL Neut # (Auto) (1.4-6.5) K/uL Lymph # (Auto) (1.2-3.4) K/uL [place] # (Auto) (0.11-0.59) K/uL Eos # (Auto) (0-0.5) K/uL Baso # (Auto) (0-0.2) K/uL Giant Platelets Anisocytosis Tear Drop Cells Rouleaux PT 12.0 (9.0-12.0) Seconds INR 1.2 H (0.9-1.1) Sodium 139 (136-145) mmol/L Potassium 3.9 (3.5-5.1) mmol/L Chloride 103 (98-107) mmol/L Carbon Dioxide 29 (21-32) mmol/L Anion Gap 7.0 (3-11) BUN 34 H (7-18) mg/dl Creatinine 1.14 (0.6-1.4) mg/dl Est Cr Clr Drug Dosing 45.6 ml/min Est GFR ( Amer) 72.5 Est GFR (Non-Af Amer) 62.6 BUN/Creatinine Ratio 29.6 H (10-20) Glucose 101 H (70-99) mg/dl POC Glucose (70-99) Calcium 9.0 (8.5-10.1) mg/dl Phosphorus (2.5-4.9) mg/dl Magnesium 1.8 (1.8-2.4) mg/dl Total Bilirubin 0.7 (0.2-1) mg/dl Direct Bilirubin 0.4 H (0-0.2) mg/dl AST 34 (15-37) U/L ALT 173 H (12-78) U/L Alkaline Phosphatase 429 H (45-117) U/L Total Protein 6.4 (6.4-8.2) gm/dl Albumin 2.1 L (3.4-5.0) gm/dl Vitamin B12 (211-911) pg/ml Random Gentamicin 1.90 mcg/ml Random Vancomycin 2.9 mcg/ml 12/02/18 12/01/1819 Range/Units 05:47 20:45 17:06 WBC 6.29 (4.8-10.8) K/uL RBC 3.61 L (4.7-6.1) M/uL Hgb 10.4 L (14.0-18.0) g/dL Hct 33.4 L (42-52) % MCV 92.5 (80-100) fL MCH 28.8 (25-34) pg MCHC 31.1 L (32-36) g/dL RDW Std Deviation 83.3 H (36.4-46.3) fL RDW Coeff of Molly 24.6 H (11.5-14.5) % Plt Count 250 (130-400) K/uL MPV 10.5 H (7.4-10.4) fL Immature Gran % (Auto) 0.5 % Neut % (Auto) 68.1 % Lymph % (Auto) 11.1 % [place] % (Auto) 16.4 % Eos % (Auto) 3.7 % Baso % (Auto) 0.2 % Immature Gran # (Auto) 0.03 H (0.00-0.02) K/uL Neut # (Auto) 4.29 (1.4-6.5) K/uL Lymph # (Auto) 0.70 L (1.2-3.4) K/uL [place] # (Auto) 1.03 H (0.11-0.59) K/uL Eos # (Auto) 0.23 (0-0.5) K/uL Baso # (Auto) 0.01 (0-0.2) K/uL Giant Platelets 1+ Anisocytosis Present Tear Drop Cells 1+ Rouleaux 1+ PT (9.0-12.0) Seconds INR (0.9-1.1) Sodium (136-145) mmol/L Potassium (3.5-5.1) mmol/L Chloride (98-107) mmol/L Carbon Dioxide (21-32) mmol/L Anion Gap (3-11) BUN (7-18) mg/dl Creatinine (0.6-1.4) mg/dl Est Cr Clr Drug Dosing ml/min Est GFR ( Amer) Est GFR (Non-Af Amer) BUN/Creatinine Ratio (10-20) Glucose (70-99) mg/dl POC Glucose 81 174 H (70-99) Calcium (8.5-10.1) mg/dl Phosphorus (2.5-4.9) mg/dl Magnesium (1.8-2.4) mg/dl Total Bilirubin (0.2-1) mg/dl Direct Bilirubin (0-0.2) mg/dl AST (15-37) U/L ALT (12-78) U/L Alkaline Phosphatase (45-117) U/L Total Protein (6.4-8.2) gm/dl Albumin (3.4-5.0) gm/dl Vitamin B12 (211-911) pg/ml Random Gentamicin mcg/ml Random Vancomycin mcg/ml 12/01/18 12/01/18 12/01/18 Range/Units 12:12 08:25 07:21 WBC (4.8-10.8) K/uL RBC (4.7-6.1) M/uL Hgb (14.0-18.0) g/dL Hct (42-52) % MCV (80-100) fL MCH (25-34) pg MCHC (32-36) g/dL RDW Std Deviation (36.4-46.3) fL RDW Coeff of Molly (11.5-14.5) % Plt Count (130-400) K/uL MPV (7.4-10.4) fL Immature Gran % (Auto) % Neut % (Auto) % Lymph % (Auto) % [place] % (Auto) % Eos % (Auto) % Baso % (Auto) % Immature Gran # (Auto) (0.00-0.02) K/uL Neut # (Auto) (1.4-6.5) K/uL Lymph # (Auto) (1.2-3.4) K/uL [place] # (Auto) (0.11-0.59) K/uL Eos # (Auto) (0-0.5) K/uL Baso # (Auto) (0-0.2) K/uL Giant Platelets Anisocytosis Tear Drop Cells Rouleaux PT (9.0-12.0) Seconds INR (0.9-1.1) Sodium 136 (136-145) mmol/L Potassium 4.2 (3.5-5.1) mmol/L Chloride 105 (98-107) mmol/L Carbon Dioxide 24 (21-32) mmol/L Anion Gap 8.0 (3-11) BUN 36 H (7-18) mg/dl Creatinine 1.10 (0.6-1.4) mg/dl Est Cr Clr Drug Dosing 46.8 ml/min Est GFR ( Amer) 75.7 Est GFR (Non-Af Amer) 65.3 BUN/Creatinine Ratio 32.5 H (10-20) Glucose 170 H (70-99) mg/dl POC Glucose 276 H 175 H (70-99) Calcium 9.1 (8.5-10.1) mg/dl Phosphorus 3.5 (2.5-4.9) mg/dl Magnesium 1.7 L (1.8-2.4) mg/dl Total Bilirubin 0.8 (0.2-1) mg/dl Direct Bilirubin 0.4 H (0-0.2) mg/dl AST 42 H (15-37) U/L ALT 224 H (12-78) U/L Alkaline Phosphatase 490 H (45-117) U/L Total Protein 6.5 (6.4-8.2) gm/dl Albumin 2.1 L (3.4-5.0) gm/dl Vitamin B12 (211-911) pg/ml Random Gentamicin mcg/ml Random Vancomycin mcg/ml 12/01/18 12/01/18 12/01/18 Range/Units 07:21 07:21 07:21 WBC 7.76 (4.8-10.8) K/uL RBC 3.44 L (4.7-6.1) M/uL Hgb 9.8 L (14.0-18.0) g/dL Hct 31.7 L (42-52) % MCV 92.2 (80-100) fL MCH 28.5 (25-34) pg MCHC 30.9 L (32-36) g/dL RDW Std Deviation 82.6 H (36.4-46.3) fL RDW Coeff of Molly 24.9 H (11.5-14.5) % Plt Count 247 (130-400) K/uL MPV 10.8 H (7.4-10.4) fL Immature Gran % (Auto) 0.4 % Neut % (Auto) 77.1 % Lymph % (Auto) 7.7 % [place] % (Auto) 13.8 % Eos % (Auto) 1.0 % Baso % (Auto) 0.0 % Immature Gran # (Auto) 0.03 H (0.00-0.02) K/uL Neut # (Auto) 5.98 (1.4-6.5) K/uL Lymph # (Auto) 0.60 L (1.2-3.4) K/uL [place] # (Auto) 1.07 H (0.11-0.59) K/uL Eos # (Auto) 0.08 (0-0.5) K/uL Baso # (Auto) 0.00 (0-0.2) K/uL Giant Platelets Anisocytosis Present Tear Drop Cells Rouleaux PT 12.7 H (9.0-12.0) Seconds INR 1.3 H (0.9-1.1) Sodium (136-145) mmol/L Potassium (3.5-5.1) mmol/L Chloride (98-107) mmol/L Carbon Dioxide (21-32) mmol/L Anion Gap (3-11) BUN (7-18) mg/dl Creatinine (0.6-1.4) mg/dl Est Cr Clr Drug Dosing ml/min Est GFR ( Amer) Est GFR (Non-Af Amer) BUN/Creatinine Ratio (10-20) Glucose (70-99) mg/dl POC Glucose (70-99) Calcium (8.5-10.1) mg/dl Phosphorus (2.5-4.9) mg/dl Magnesium (1.8-2.4) mg/dl Total Bilirubin (0.2-1) mg/dl Direct Bilirubin (0-0.2) mg/dl AST (15-37) U/L ALT (12-78) U/L Alkaline Phosphatase (45-117) U/L Total Protein (6.4-8.2) gm/dl Albumin (3.4-5.0) gm/dl Vitamin B12 > 2000 H (211-911) pg/ml Random Gentamicin mcg/ml Random Vancomycin mcg/ml _ (1) Insomnia Insomnia type: unspecified Qualified Code(s): G47.00 - Insomnia, unspecified (2) CAD (coronary artery disease) Associated angina: without angina Coronary Disease-Associated Artery/Lesion type: [place] artery [place] vs. transplanted heart: [place] heart Qualified Code (s): I25.10 - Atherosclerotic heart disease of [place] coronary artery without angina pectoris (3) Anemia Anemia type: unspecified type Bone marrow failure anemia type: Chronic kidney disease stage: Folate deficiency anemia type: Hemolytic anemia type: Iron deficiency anemia type: Other causes of anemia: Vitamin B12 deficiency anemia type: Qualified Code(s): D64.9 - Anemia, unspecified (4) Altered mental status Altered mental status type: somnolence Coma depth: Coma timing: Qualified Code(s): R40.0 - Somnolence (5) RLL pneumonia Aspiration pneumonia type: Pneumonia type: due to unspecified organism Qualified Code(s): J18.1 - Lobar pneumonia, unspecified organism
--- NOTE | 2018-12-01 10:45 | Anesthesiology Progress Note ---
Date of Service December 01, 2018 Anesthesia Post Procedure Vital Signs Vital Signs: Temp Pulse Resp BP Pulse Ox 12/01/18 08:02 36.7 C 110 H 18 117/77 96 12/01/18 00:00 36.7 C 112 H 22 115/82 94 11/30/18 15:00 36.8 C 105 H 22 108/77 94 11/30/18 13:49 94 11/30/18 13:48 36.2 C L 116 H 126/83 11/30/18 13:40 89 L 11/30/18 13:03 36.2 C L 96 H 18 104/72 98 11/30/18 12:00 92 H 18 100/67 95 11/30/18 11:00 36.3 C L 92 H 19 107/71 92 Pain Intensity Bilateral: Pain Intensity: 0 Left Chest: Pain Intensity: 0 Notes Mental Status: alert / awake / arousable Patient Amnestic to Procedure: Yes Nausea / Vomiting: adequately controlled Pain: adequately controlled Airway Patency, RR, SpO2: stable & adequate BP & HR: stable & adequate Hydration State: stable & adequate Anesthetic Complications: no major complications apparent and Pt Satisfied with anesthetic care
--- NOTE | 2018-12-01 12:01 | Progress Note ---
DATE: 12/01/2018 Mr. Aden was seen today. He had some drainage from the wound. It was confined within the dressing; however, I think as it is producing a fluid, we can go ahead and apply a wound VAC. I reviewed his labs. I think he is doing very well. He is actually on room air at times. Saturation on 2 liters right now is 100%. He does have an air leak, but I placed the black foam over the wound and putting him at 50 mmHg suction. He feels better with this on. We did not appear to be removing much in the way of air and I think this will be helpful. I do have a few concerns. One is his calcium. Calcium level is 9.1. He was 8.5 before we put the beads and has been as high as 8.7; however, his albumin is quite low at 2.2. This corrects up some. We will be keeping a close eye on the calcium level. We will also check gentamicin and vancomycin levels; however, I feel better having the wound VAC on, this should remove any excess effluent. Otherwise, I think he looks good. Discussed this with the patient's and daughter today. DOMENICA
[2018-12-01] MEDS: MELATONIN 1 MG PO SCH (20:55)
[2018-12-01] MEDS: MoRPHine SULFATE 5 MG/0.25 ML UDP PO SCH (20:58)
[2018-12-02 06:17] LABS: Basophils # (auto) 0.01 K/uL (0-0.2); Basophils % (auto) 0.2 %; Eosinophils # (auto) 0.23 K/uL (0-0.5); Eosinophils % (auto) 3.7 %; Hematocrit (blood only) 33.4 % (42-52); Hemoglobin 10.4 g/dL (14.0-18.0); Immature Granulocytes # (auto) 0.03 K/uL (0.00-0.02); Immature Granulocytes % (auto) 0.5 %; Lymphocytes % (auto) 11.1 %; Mean Corpuscular Hgb Conc 31.1 g/dL (32-36); Mean Corpuscular Volume 92.5 fL (80-100); Mean Platelet Volume 10.5 fL (7.4-10.4); Monocytes # (auto) 1.03 K/uL (0.11-0.59); Monocytes % (auto) 16.4 %; Neutrophils # (auto) 4.29 K/uL (1.4-6.5); Neutrophils % (auto) 68.1 %; Platelet Count 250 K/uL (130-400); RDW Coefficient of Variation 24.6 % (11.5-14.5); RDW Standard Deviation 83.3 fL (36.4-46.3); Red Blood Count 3.61 M/uL (4.7-6.1); White Blood Count 6.29 K/uL (4.8-10.8)
[2018-12-02 06:34] LABS: INR 1.2 (0.9-1.1)
[2018-12-02 06:39] LABS: Gentamicin Random 1.9 mcg/ml; Vancomycin Random 2.9 mcg/ml
[2018-12-02 06:42] LABS: Anisocytosis Present; Giant Platelets 1+; Rouleaux 1+; Tear Drop Cells 1+
[2018-12-02 06:48] LABS: Albumin Level 2.1 gm/dl (3.4-5.0); BUN Creatinine Ratio 29.6 (10-20); Bilirubin Direct 0.4 mg/dl (0-0.2); Creatinine Clr Calc Pharmacy 45.6 ml/min; Est GFR (African American) 72.5; Est GFR (Non-African American) 62.6; Magnesium 1.8 mg/dl (1.8-2.4); Potassium 3.9 mmol/L (3.5-5.1)
[2018-12-02 06:51] LABS: Bilirubin,Total 0.7 mg/dl (0.2-1); Total Protein 6.4 gm/dl (6.4-8.2)
[2018-12-02] MEDS ORDERED: PIPERACILL/TAZOBAC CONSULT ACTIVE PRN (09:19)
[2018-12-02] MEDS: FUROSEMIDE 20 MG TAB PO SCH (09:23)
[2018-12-02] MEDS: ASPIRIN 81 MG ECTAB PO SCH (09:23)
[2018-12-02] MEDS: FINASTERIDE 5 MG TAB PO SCH (09:23)
[2018-12-02] MEDS: MAGNESIUM OXIDE 400 MG TAB PO SCH (09:23)
[2018-12-02] MEDS: LACTOBACILLUS ACIDOPHILUS (FLORANEX) TAB PO SCH ×3 (09:23→17:52)
[2018-12-02] MEDS: FERROUS SULFATE 325 MG TAB PO SCH ×2 (09:23→21:43)
[2018-12-02] MEDS: PANTOprazole 40 MG TAB PO SCH (09:24)
[2018-12-02] MEDS: CYANOCOBALAMIN 500 MCG TABLET (VITAMIN B-12) PO SCH (09:24)
[2018-12-02] MEDS: CEROVITE ADV FORMULA TAB PO SCH (09:24)
[2018-12-02] MEDS: METOPROLOL SUCC 25MG EXT REL TAB PO SCH (09:24)
--- NOTE | 2018-12-02 09:26 | XRay Report ---
XR chest 1V portable CLINICAL HISTORY: pneumonia COMPARISON STUDY: 12/01/2018 FINDINGS: The heart remains enlarged. There is right lower lung zone consolidation consistent with a pneumonia. There is persistent blunting of the lateral costophrenic angle suggesting trace effusions. There is left lung volume loss. There is elevation left hemidiaphragm. Radiodense beads project over the left upper lung zone with overlying skin cy. There is trace subcutaneous emphysema.[ IMPRESSION: Stable findings. Persistent right lower lung airspace opacity suspicious for pneumonia. P ostsurgical changes within the left upper lung zone. Electronically signed by: Jonny Nath M.D. 12/02/2018 9:25 AM
[2018-12-02] MEDS: INSULIN ASPART 100 UNITS/ML 3 ML PEN SC SCH ×4 (09:28→21:44)
[2018-12-02] MEDS ORDERED: PIPERACILLIN/TAZOBACTAM 2.25 GM in DEXTROSE 5% 100 ML IV SCH (09:30)
[2018-12-02] MEDS: INSULIN GLARGINE SOLOSTAR 100 UNITS/ML 3 ML PEN SC SCH (09:30)
[2018-12-02] MEDS: HEPARIN SOD 5,000 UNIT/0.5 ML VIAL SQ SCH ×2 (09:32→21:43)
[2018-12-02] MEDS ORDERED: PIPERACILLIN/TAZOBACTAM 3.375 GM in DEXTROSE 5% 100 ML IV ONE (10:00)
--- NOTE | 2018-12-02 13:35 | Progress Note ---
DATE: 12/02/2018 The patient does not look as good to me today. He is on 4 liters of O2. States that he is having a hard time breathing. The wound VAC has simply not worked well because of the airway continuously has a leaking alarms. I switched this over to a low continuous suction to the wall to provide some suction, so we do not have overrun. His saturations are good. He sounds worse to me today. He has rhonchi on both sides. I think his x-ray shows a bit dense infiltrate in the right base. I am going to resume his vancomycin and his Zosyn. I will also put him back on voriconazole p.o. He ate breakfast well. His blood work today shows a normal white count of 6290 with hemoglobin of 10.4. His liver functions continue to improve. His AST is back down to normal and his ALT is coming down as is his alkaline phosphatase. He remains markedly hyperkalemic. We will continue his dietary supplements and ambulation and we will inspect his wound tomorrow.
[2018-12-02] MEDS: PIPERACILLIN/TAZOBACTAM 3.375 GM in DEXTROSE 5% 100 ML IV SCH ×2 (16:23→23:31)
--- NOTE | 2018-12-02 18:37 | Hospitalist Progress Note ---
Date of Service December 02, 2018 Assessment & Plan (1) Acute respiratory failure with hypoxia: Ongoing o2 requirement. Continues to be increased requirement from previous since recent surgery with wound debridement of the Eloesser flap and antibiotic bead placement Also secondary to worsening RLL pneumonia, severe CHF, recent left-sided lung surgery, large CHATA cavitation with fungal ball, etc. Cont o2 support to keep POx>90% (2) Altered mental status: Occurred on AM of 11/27--> now resolved (3) Shock liver: likely due to low-flow state in the setting of surgery last week. LFTs continue to improve today and has not had recurrence with this repeat surgery Had concomitant ATN as well which is also resolved. Continue to follow LFTs and INR in am especially in the setting of a repeat procedure on 11/30 Continue holding lipitor, tylenol, but voriconazole was restarted today by thoracic surgery (4) Coagulopathy: Secondary to shock liver. ammonia level normal INR trended downward and stable (5) Acute kidney injury: Secondary to ATN in setting of perioperative hypotension (presumed). creatinine improved and stable -Follow BMP (6) Insomnia: -continue scheduled PO morphine 5mg at HS (7) RLL pneumonia: Previously clinically resolved; completed IV Zosyn times 10 days Chest x-ray with persistent radiographic infiltrate in the right lower lobe and increased in density on chest x-ray from 12/02 Given worsening respiratory status and change in infiltrate, thoracic surgery added IV Zosyn and p.o. voriconazole back on to his regimen on 12/02 (8) Aspergillus fumigatus: fungal ball, CHATA. unable to use IV voriconazole in setting of shock liver but now that shock liver is improved, restarted p.o. voriconazole -He did receive less than a week of IV caspofungin when his LFTs were elevated which was then discontinued after the antibiotic beads were placed on 11/30. Given slightly worsening respiratory status and overall picture on 12/02, p.o. voriconazole was restarted -Appreciate infectious disease consultation -He also has voriconazole soaked antibiotic beads packed in his left upper chest wall cavity -follow LFTs given possibility of voriconazole spreading systemically (9) Acute on chronic systolic (congestive) heart failure: He developed significant lower extremity edema after holding lasix for ATN for several days-now improved but weight is up now 2-1/2 kg in the last several days Increase Lasix to 40 mg once daily cont low-dose BB. -Continue daily weights, strict I's and O's (10) Cavitary lesion of lung: CHATA, s/p Left Anterior Eloesser Flap by Dr. Srivastava Now with wound debridement on 11/30 and antibiotic bead placement with voriconazole, vancomycin, and gentamicin-soaked beads - vancomycin and gentamicin levels on 12/02 are low to look for systemic toxicity from the beads -Follow calcium levels given calcium beads placed-calcium levels have increased slightly, but corrected calcium for low albumin today is at 10.52 which is mildly elevated -Continue to follow BMP and albumin No malignancy seen on pathology (11) Small cell lung cancer: CHATA - history of such, s/p CHATA lobectomy 2 years ago -no malignancy identified on pathology from [place] flap (12) CAD (coronary artery disease): no obvious ischemic symptoms at this time. s/p cath last month with stable CAD. -continue ASA metoprolol -holding statin for shock liver (13) PVD (peripheral vascular disease): Patient denies claudication symptoms of legs but he clearly has PAD given his poor pulses on exam. -holding statin as above -Continue aspirin (14) Physical deconditioning: ongoing has gotten severely deconditioned due to numerous comorbidities and frequent hospital stays rehab potential fair given his extreme BEE even with minimal exertion (15) Severe protein-calorie malnutrition: ongoing multifactorial -Continue boost shakes (16) Foot drop, left: likely peroneal nerve compression from crossing legs and from LE edema- continues today He continues to cross his legs daily-offered to place a pillow between his thighs to keep him from doing so and he declined --Continue to try to diuresis to reduce lower extremity edema (17) Anemia: Hemoglobin remains low but stable at 10, previously secondary to anemia of chronic disease and iron deficiency -Remains on iron supplementation -Also with hypersegmented neutrophils and macrocytosis noted on peripheral smear however B12 level is greater than 2000 -Follow CBC (18) Hypercalcemia: Corrected calcium level today is 10.52 -Secondary likely to antibiotic-soaked calcium beads in the left chest cavity as per thoracic surgery -Follow calcium levels -Increased Lasix as above which should also help (19) DVT prophylaxis: heparin 5000 BID (20) Complex care coordination: With prolonged stay with multiple procedures, recurrent GHANSHYAM/ATN, shock liver, severe CHF, and recurrent infections with Aspergillus and cavitary lesion all confounding factors. Hopeful for improvement from pulmonary standpoint with his recent thoracic surgery Dispo-remain on Surgical floor, hopeful for transition likely to rehab in the next week PT/OT pam DNR Subjective Patient feeling less short of breath today. He seems depressed today. He denies any pain but is having itching around the left chest wound site. Apparently the wound VAC was beeping every 2 minutes all night long last night according to the RN. It was then switched from the wound VAC apparatus to low intermittent suction to the wall vacuum and is now improved. Patient is tolerating p.o. He ambulated the halls today. He is overall feeling tired and weak. Review of Systems All systems reviewed & are unremarkable except as noted in HPI & below Physical Exam 2 Vital Signs (Past 24 Hours): Last Vital Signs Temp 36.4 C L 12/02/18 15:00 Pulse 97 H 12/02/18 15:00 Resp 20 12/02/18 15:00 BP 95/60 L 12/02/18 15:00 Pulse Ox 100 12/02/18 15:00 Constitutional: + ill appearing (Chronically ill-appearing), + thin and + cachectic; no acute distress Eyes: PERRL, conjunctivae normal, anicteric sclerae ENMT: external ear and nose normal, oropharynx normal (Mucous membranes moist ) Neck: trachea midline, no thyromegaly Respiratory: normal respiratory effort; no labored breathing Auscultation: + crackles (Right lower lung field) and + rhonchi (Bilateral lower lung watts) Cardiovascular: Rate/Rhythm: regular rate and regular rhythm Heart Sounds: no murmur Extremities: + edema (1+ pitting edema in the legs to the knees bilaterally) Chest (Breasts): Chest: + abnormal inspection of chest (Left superior anterior chest wall with dressing and wound VAC in place with surrounding ecchymosis) Gastrointestinal (Abdomen): normal bowel sounds, soft, nontender, no hepatosplenomegaly Musculoskeletal: Extremities: extremities normal to inspection; no cyanosis and no clubbing Skin: no rashes, warm and dry Neurologic: moves all extremities, + focal motor deficit (Left foot still with drop but improved to 4 out of 5 strength ) and awake Psychiatric: Orientation: alert and oriented x 3 Affect: + flat affect Results & Data Laboratory Results 12/02/18 12/02/18 12/02/18 Range/Units 16:59 12:04 08:15 WBC (4.8-10.8) K/uL RBC (4.7-6.1) M/uL Hgb (14.0-18.0) g/dL Hct (42-52) % MCV (80-100) fL MCH (25-34) pg MCHC (32-36) g/dL RDW Std Deviation (36.4-46.3) fL RDW Coeff of Molly (11.5-14.5) % Plt Count (130-400) K/uL MPV (7.4-10.4) fL Immature Gran % (Auto) % Neut % (Auto) % Lymph % (Auto) % Rains % (Auto) % Eos % (Auto) % Baso % (Auto) % Immature Gran # (Auto) (0.00-0.02) K/uL Neut # (Auto) (1.4-6.5) K/uL Lymph # (Auto) (1.2-3.4) K/uL Rains # (Auto) (0.11-0.59) K/uL Eos # (Auto) (0-0.5) K/uL Baso # (Auto) (0-0.2) K/uL Giant Platelets Anisocytosis Tear Drop Cells Rouleaux PT (9.0-12.0) Seconds INR (0.9-1.1) Sodium (136-145) mmol/L Potassium (3.5-5.1) mmol/L Chloride (98-107) mmol/L Carbon Dioxide (21-32) mmol/L Anion Gap (3-11) BUN (7-18) mg/dl Creatinine (0.6-1.4) mg/dl Est Cr Clr Drug Dosing ml/min Est GFR ( Amer) Est GFR (Non-Af Amer) BUN/Creatinine Ratio (10-20) Glucose (70-99) mg/dl POC Glucose 164 H 227 H 111 H (70-99) Calcium (8.5-10.1) mg/dl Magnesium (1.8-2.4) mg/dl Total Bilirubin (0.2-1) mg/dl Direct Bilirubin (0-0.2) mg/dl AST (15-37) U/L ALT (12-78) U/L Alkaline Phosphatase (45-117) U/L Total Protein (6.4-8.2) gm/dl Albumin (3.4-5.0) gm/dl Random Gentamicin mcg/ml Random Vancomycin mcg/ml 12/02/18 12/02/18 12/02/18 Range/Units 05:47 05:47 05:47 WBC (4.8-10.8) K/uL RBC (4.7-6.1) M/uL Hgb (14.0-18.0) g/dL Hct (42-52) % MCV (80-100) fL MCH (25-34) pg MCHC (32-36) g/dL RDW Std Deviation (36.4-46.3) fL RDW Coeff of Molly (11.5-14.5) % Plt Count (130-400) K/uL MPV (7.4-10.4) fL Immature Gran % (Auto) % Neut % (Auto) % Lymph % (Auto) % Rains % (Auto) % Eos % (Auto) % Baso % (Auto) % Immature Gran # (Auto) (0.00-0.02) K/uL Neut # (Auto) (1.4-6.5) K/uL Lymph # (Auto) (1.2-3.4) K/uL Rains # (Auto) (0.11-0.59) K/uL Eos # (Auto) (0-0.5) K/uL Baso # (Auto) (0-0.2) K/uL Giant Platelets Anisocytosis Tear Drop Cells Rouleaux PT 12.0 (9.0-12.0) Seconds INR 1.2 H (0.9-1.1) Sodium 139 (136-145) mmol/L Potassium 3.9 (3.5-5.1) mmol/L Chloride 103 (98-107) mmol/L Carbon Dioxide 29 (21-32) mmol/L Anion Gap 7.0 (3-11) BUN 34 H (7-18) mg/dl Creatinine 1.14 (0.6-1.4) mg/dl Est Cr Clr Drug Dosing 45.6 ml/min Est GFR ( Amer) 72.5 Est GFR (Non-Af Amer) 62.6 BUN/Creatinine Ratio 29.6 H (10-20) Glucose 101 H (70-99) mg/dl POC Glucose (70-99) Calcium 9.0 (8.5-10.1) mg/dl Magnesium 1.8 (1.8-2.4) mg/dl Total Bilirubin 0.7 (0.2-1) mg/dl Direct Bilirubin 0.4 H (0-0.2) mg/dl AST 34 (15-37) U/L ALT 173 H (12-78) U/L Alkaline Phosphatase 429 H (45-117) U/L Total Protein 6.4 (6.4-8.2) gm/dl Albumin 2.1 L (3.4-5.0) gm/dl Random Gentamicin 1.90 mcg/ml Random Vancomycin 2.9 mcg/ml 12/02/18 12/01/18 Range/Units 05:47 20:45 WBC 6.29 (4.8-10.8) K/uL RBC 3.61 L (4.7-6.1) M/uL Hgb 10.4 L (14.0-18.0) g/dL Hct 33.4 L (42-52) % MCV 92.5 (80-100) fL MCH 28.8 (25-34) pg MCHC 31.1 L (32-36) g/dL RDW Std Deviation 83.3 H (36.4-46.3) fL RDW Coeff of Molly 24.6 H (11.5-14.5) % Plt Count 250 (130-400) K/uL MPV 10.5 H (7.4-10.4) fL Immature Gran % (Auto) 0.5 % Neut % (Auto) 68.1 % Lymph % (Auto) 11.1 % Rains % (Auto) 16.4 % Eos % (Auto) 3.7 % Baso % (Auto) 0.2 % Immature Gran # (Auto) 0.03 H (0.00-0.02) K/uL Neut # (Auto) 4.29 (1.4-6.5) K/uL Lymph # (Auto) 0.70 L (1.2-3.4) K/uL Rains # (Auto) 1.03 H (0.11-0.59) K/uL Eos # (Auto) 0.23 (0-0.5) K/uL Baso # (Auto) 0.01 (0-0.2) K/uL Giant Platelets 1+ Anisocytosis Present Tear Drop Cells 1+ Rouleaux 1+ PT (9.0-12.0) Seconds INR (0.9-1.1) Sodium (136-145) mmol/L Potassium (3.5-5.1) mmol/L Chloride (98-107) mmol/L Carbon Dioxide (21-32) mmol/L Anion Gap (3-11) BUN (7-18) mg/dl Creatinine (0.6-1.4) mg/dl Est Cr Clr Drug Dosing ml/min Est GFR ( Amer) Est GFR (Non-Af Amer) BUN/Creatinine Ratio (10-20) Glucose (70-99) mg/dl POC Glucose 81 (70-99) Calcium (8.5-10.1) mg/dl Magnesium (1.8-2.4) mg/dl Total Bilirubin (0.2-1) mg/dl Direct Bilirubin (0-0.2) mg/dl AST (15-37) U/L ALT (12-78) U/L Alkaline Phosphatase (45-117) U/L Total Protein (6.4-8.2) gm/dl Albumin (3.4-5.0) gm/dl Random Gentamicin mcg/ml Random Vancomycin mcg/ml Diagnostic Findings Chest x-ray image personally reviewed by me and agree with the following report except I do agree with Dr. Mason Whitmore and that the right lower lobe infiltrate is increased in density from previous: XR chest 1V portable CLINICAL HISTORY: pneumonia COMPARISON STUDY: 12/01/2018 FINDINGS: The heart remains enlarged. There is right lower lung zone consolidation consistent with a pneumonia. There is persistent blunting of the lateral costophrenic angle suggesting trace effusions. There is left lung volume loss. There is elevation left hemidiaphragm. Radiodense beads project over the left upper lung zone with overlying skin cy. There is trace subcutaneous emphysema.[ IMPRESSION: Stable findings. Persistent right lower lung airspace opacity suspicious for pneumonia. Postsurgical changes within the left upper lung zone. _ (1) Altered mental status Altered mental status type: somnolence Coma depth: Coma timing: Qualified Code(s): R40.0 - Somnolence (2) Insomnia Insomnia type: unspecified Qualified Code(s): G47.00 - Insomnia, unspecified (3) RLL pneumonia Pneumonia type: due to unspecified organism Aspiration pneumonia type: Qualified Code(s): J18.1 - Lobar pneumonia, unspecified organism (4) CAD (coronary artery disease) Coronary Disease-Associated Artery/Lesion type: [place] artery [place] vs. transplanted heart: [place] heart Associated angina: without angina Qualified Code(s): I25.10 - Atherosclerotic heart disease of [place] coronary artery without angina pectoris (5) Anemia Anemia type: unspecified type Bone marrow failure anemia type: Chronic kidney disease stage: Folate deficiency anemia type: Hemolytic anemia type: Iron deficiency anemia type: Other causes of anemia: Vitamin B12 deficiency anemia type: Qualified Code(s): D64.9 - Anemia, unspecified
[2018-12-02] MEDS: MELATONIN 1 MG PO SCH (21:39)
[2018-12-02] MEDS: VORICONAZOLE 200 MG TABLET PO SCH (21:45)
[2018-12-02] MEDS: MoRPHine SULFATE 5 MG/0.25 ML UDP PO SCH (21:45)
[2018-12-02] MEDS: guaiFENesin 600 MG TABCR PO SCH (21:49)
[2018-12-03 07:34] LABS: Basophils # (auto) 0.01 K/uL (0-0.2); Basophils % (auto) 0.1 %; Eosinophils # (auto) 0.29 K/uL (0-0.5); Eosinophils % (auto) 4.3 %; Hematocrit (blood only) 31.9 % (42-52); Hemoglobin 9.9 g/dL (14.0-18.0); Immature Granulocytes # (auto) 0.02 K/uL (0.00-0.02); Immature Granulocytes % (auto) 0.3 %; Lymphocytes # (auto) 0.69 K/uL (1.2-3.4); Lymphocytes % (auto) 10.3 %; Mean Corpuscular Volume 94.1 fL (80-100); Mean Platelet Volume 10.2 fL (7.4-10.4); Monocytes # (auto) 0.87 K/uL (0.11-0.59); Neutrophils # (auto) 4.82 K/uL (1.4-6.5); Platelet Count 271 K/uL (130-400); RDW Standard Deviation 81.9 fL (36.4-46.3); Red Blood Count 3.39 M/uL (4.7-6.1)
[2018-12-03 08:07] LABS: Anisocytosis Present
[2018-12-03 08:09] LABS: BUN Creatinine Ratio 29.5 (10-20); Bilirubin Direct 0.4 mg/dl (0-0.2); Calcium 9.1 mg/dl (8.5-10.1); Creatinine Clr Calc Pharmacy 47.2 ml/min; Est GFR (African American) 74.9; Est GFR (Non-African American) 64.6; Magnesium 1.9 mg/dl (1.8-2.4)
[2018-12-03 08:12] LABS: Bilirubin,Total 0.7 mg/dl (0.2-1); Total Protein 6.3 gm/dl (6.4-8.2)
--- NOTE | 2018-12-03 08:13 | XRay Report ---
XR chest 1V portable CLINICAL HISTORY: 73 years-old Male presenting with pneumonia. TECHNIQUE: Portable upright AP view of the chest was obtained. COMPARISON: 12/02/2018. FINDINGS: Radiodense beads project over the left upper lung with overlying skin cy. A crescent of air sheree g the periphery may suggest an intracavitary location of the therapeutic beads. Cardiac mediastinal s ilhouette grossly stable. Stable slight increased opacity in the right lung base. Persistent small ri ght pleural effusion or pleural thickening. Significant underlying heterogeneity of lung parenchyma. Architectural distortion at the left lung base is unchanged. No large pneumothorax. Skinfold suggeste d over the right apex. Osseous structures normal. Upper abdomen normal. IMPRESSION: 1. Stable to slightly increased infiltrates in the right lung base. Worsening infection or atelectas is not excluded. 2. Overall stable postsurgical changes in the left upper lung. Electronically signed by: Jeffrey Frances M.D. 12/03/2018 8:12 AM
--- NOTE | 2018-12-03 08:33 | Anesthesiology Progress Note ---
Date of Service December 03, 2018 Anesthesia Post Procedure Vital Signs Vital Signs: Temp Pulse Pulse Pulse Resp BP Pulse Ox 12/03/18 07:57 36.3 C L 92 H 20 92/63 L 97 12/02/18 23:07 36.4 C L 93 H 14 95/74 L 97 12/02/18 15:00 36.4 C L 97 H 20 95/60 L 100 Pain Intensity Bilateral: Pain Intensity: 0 Left Chest: Pain Intensity: 0 Notes Mental Status: alert / awake / arousable and participated in evaluation Nausea / Vomiting: adequately controlled Pain: adequately controlled Airway Patency, RR, SpO2: stable & adequate BP & HR: stable & adequate Hydration State: stable & adequate
[2018-12-03] MEDS ORDERED: FUROSEMIDE 40 MG TAB PO SCH (09:00)
[2018-12-03] MEDS: LACTOBACILLUS ACIDOPHILUS (FLORANEX) TAB PO SCH ×3 (09:01→18:26)
[2018-12-03] MEDS: FERROUS SULFATE 325 MG TAB PO SCH ×2 (09:02→21:00)
[2018-12-03] MEDS: MAGNESIUM OXIDE 400 MG TAB PO SCH (09:02)
[2018-12-03] MEDS: ASPIRIN 81 MG ECTAB PO SCH (09:02)
[2018-12-03] MEDS: PANTOprazole 40 MG TAB PO SCH (09:03)
[2018-12-03] MEDS: CEROVITE ADV FORMULA TAB PO SCH (09:04)
[2018-12-03] MEDS: METOPROLOL SUCC 25MG EXT REL TAB PO SCH (09:04)
[2018-12-03] MEDS: CYANOCOBALAMIN 500 MCG TABLET (VITAMIN B-12) PO SCH (09:04)
[2018-12-03] MEDS: FINASTERIDE 5 MG TAB PO SCH (09:05)
[2018-12-03] MEDS: VORICONAZOLE 200 MG TABLET PO SCH (09:05)
[2018-12-03] MEDS: guaiFENesin 600 MG TABCR PO SCH ×2 (09:11→21:01)
[2018-12-03] MEDS: INSULIN ASPART 100 UNITS/ML 3 ML PEN SC SCH ×4 (09:14→21:02)
[2018-12-03] MEDS: INSULIN GLARGINE SOLOSTAR 100 UNITS/ML 3 ML PEN SC SCH (09:15)
[2018-12-03] MEDS: HEPARIN SOD 5,000 UNIT/0.5 ML VIAL SQ SCH ×2 (09:15→21:00)
[2018-12-03] MEDS: PIPERACILLIN/TAZOBACTAM 3.375 GM in DEXTROSE 5% 100 ML IV SCH ×2 (09:23→15:15)
--- NOTE | 2018-12-03 10:06 | Palliative Care Progress Note ---
Date of Service December 03, 2018 Assessment & Plan (1) Palliative care encounter: -Patient states he is feeling "much better." Patient feels that his strength and appetite have improved. Had antifungal beads placed in Eloesser flap on Monday. Now has wound vac placed. Zosyn and voriconazole restarted. Oxygen requirements are increasing. -Uncertain of discharge planning at this time. Plan was to eventually get home with hospice. Active treatment for this infection continues. -Will continue to follow. (2) Cavitary pneumonia: (3) Aspergillus fumigatus: (4) CHF (congestive heart failure): (5) Elevated LFTs: (6) Ischemic cardiomyopathy: (7) Small cell lung cancer: Stable Subjective Patient states he is feeling "much better." Patient feels that his strength and appetite have improved. Had antifungal beads placed in Eloesser flap on Monday. Zosyn and voriconazole restarted. Oxygen requirements are increasing. Constitutional: + weakness Respiratory: + cough, + dyspnea and + dyspnea on exertion Cardiovascular: + edema (improved); no chest pain Musculoskeletal: + muscle weakness Psychiatric: + depression (feeling down about his situation); no anxiety Physical Exam 2 Vital Signs (Past 24 Hours): Last Vital Signs Temp 36.3 C L 12/03/18 07:57 Pulse 92 H 12/03/18 07:57 Resp 20 12/03/18 07:57 BP 92/63 L 12/03/18 07:57 Pulse Ox 97 12/03/18 07:57 Constitutional: + ill appearing (chronically), + frail appearing and + malnourished ENMT: Ears: no hearing impairment Neck: normal visual inspection and trachea midline Respiratory: Auscultation: + diminished lung sounds; no rhonchi air leak from Eloesser flap does sound improved Cardiovascular: RRR, no murmur, no edema Gastrointestinal (Abdomen): normal bowel sounds, soft, nontender, no hepatosplenomegaly Neurologic: awake; not confused Psychiatric: A+Ox3, euthymic affect Time Spent Midlevel 25 minutes with >50% of time spent at bedside with patient discussing condition and plan of care. _ (1) CHF (congestive heart failure) Heart failure chronicity: acute on chronic Heart failure type: unspecified Qualified Code(s): I50.9 - Heart failure, unspecified
--- NOTE | 2018-12-03 11:51 | Progress Note ---
DATE: 12/03/2018 Mr. Aden was seen today. He seems better today. His lungs sound better. His cough is better. His x-ray today looks about the same. I think he may have a bit more dense or infiltrate in the right lower lobe, but I think the fact that he was walking and I think overall he is improving. His lungs sound better, although he still has a few rhonchi and some rales, especially in the right base. His white count is normal at 6700 with a hemoglobin of 9.9. His chemistries were reviewed. Sodium is up to 140, BUN and creatinine are 33 and 1.11 which continued to improve. His liver functions also continued to improve. His alkaline phosphatase and ALT continues to drop. ASSESSMENT AND PLAN: Status post Eloesser flap with antibiotic and antifungal bead placement, left upper lobe. The wound VAC alarm 2 months, we put him on a regular suction and this appeared to have been working better. He slept better last night. We are going to keep him mobilized and continue being aggressive, continue on antifungal antibiotics. I am not sure why his cough is worse yesterday, but it is unlikely the antibiotics are helping, but I think we evaluate him 1 more day and will see how he looks tomorrow.
[2018-12-03] MEDS: FUROSEMIDE 20 MG in SYRINGE 0 ML IV ONE ×2 (14:31→15:18)
--- NOTE | 2018-12-03 14:42 | Infectious Disease Progress Nt ---
Date of Service December 03, 2018 Assessment & Plan (1) Cavitary pneumonia: Patient with cavitary pneumonia with pathologic findings consistent with diagnosis of Aspergillus infection. Given implantation of antifungal impregnated beads, caspofungin being held. Would recommend discontinuation of Zosyn and following closely off antibiotics. Will follow. (2) Aspergillus fumigatus: Subjective Patient seen in follow-up for progressive cavitary pneumonia and possible Aspergillus infection. Recent events reviewed. Patient now status post implantation of antibiotic and antifungal impregnated beads. Appears slightly better. Somewhat less short of breath. Remains afebrile. Continues on Zosyn. Chest x-ray with slightly worse right-sided infiltrate. Review of Systems All systems reviewed & are unremarkable except as noted in HPI & below Physical Exam 2 Vital Signs (Past 24 Hours): Last Vital Signs Temp 36.3 C L 12/03/18 07:57 Pulse 92 H 12/03/18 07:57 Resp 20 12/03/18 07:57 BP 104/70 12/03/18 11:34 Pulse Ox 97 12/03/18 07:57 Constitutional: WD/WN, vitals as above comfortable; no acute distress Eyes: PERRL, conjunctivae normal, anicteric sclerae ENMT: external ear and nose normal, oropharynx normal Neck: trachea midline, no thyromegaly neck nontender Respiratory: no respiratory distress and no dullness to percussion Auscultation: + rales (Both bases) Cardiovascular: Rate/Rhythm: regular rate and regular rhythm Heart Sounds: normal S1 and normal S2; no gallop, no murmur and no cardiac rub Vessels: normal peripheral pulses; no JVD Gastrointestinal (Abdomen): normal bowel sounds, soft, nontender, no hepatosplenomegaly Musculoskeletal: no cyanosis or clubbing, extremities motor strength 5/5 Spine: thoracic spine normal to inspection and lumbar spine normal to inspection ; no cervical spinal tenderness Skin: no rashes, warm and dry normal turgor; no lesions Neurologic: patellar DTR's 2+ bilat, sensation intact no focal motor deficits Psychiatric: A+Ox3, euthymic affect Orientation: cooperative Lymphatic: no cervical or axillary lymphadenopathy no inguinal lymphadenopathy Results & Data Laboratory Results Short CBC 12/03/18 Range/Units 07:21 WBC 6.70 (4.8-10.8) K/uL Hgb 9.9 L (14.0-18.0) g/dL Hct 31.9 L (42-52) % Plt Count 271 (130-400) K/uL BMP 12/03/18 07:21 Sodium 140 Potassium 4.0 Chloride 104 Carbon Dioxide 29 BUN 33 H Creatinine 1.11 Glucose 77 Calcium 9.1 Liver Function 12/03/18 Range/Units 07:21 Total Bilirubin 0.7 (0.2-1) mg/dl Direct Bilirubin 0.4 H (0-0.2) mg/dl AST 30 (15-37) U/L ALT 134 H (12-78) U/L Alkaline Phosphatase 361 H (45-117) U/L Albumin 2.0 L (3.4-5.0) gm/dl Diagnostic Findings Microbiology 11/19/18 14:13 Pleural Fluid Acid Fast Bacilli Smear - Final 11/19/18 14:13 Pleural Fluid Acid Fast Bacilli Culture - Preliminary No Acid-Fast Bacilli Isolated - Report 2, Additional Report to Follow. 11/19/18 14:45 Lung,Left Acid Fast Bacilli Smear - Final 11/19/18 14:45 Lung,Left Acid Fast Bacilli Culture - Preliminary No Acid-Fast Bacilli Isolated - Report 2, Additional Report to Follow. 11/19/18 14:13 Pleural Fluid Fungal Smear - Final 11/19/18 14:13 Pleural Fluid Fungal Culture - Preliminary No yeast or fungus isolated - Report 2, Additional report to follow. 11/19/18 14:45 Lung,Left Fungal Smear - Final 11/19/18 14:45 Lung,Left Fungal Culture - Preliminary No yeast or fungus isolated - Report 2, Additional report to follow. 11/19/18 14:13 Pleural Fluid Gram Stain - Final 11/19/18 14:13 Pleural Fluid Aerobic and Anaerobic Culture - Final No growth 11/19/18 14:45 Lung,Left Gram Stain - Final 11/19/18 14:45 Lung,Left Aerobic and Anaerobic Culture - Final No growth 11/11/18 16:38 Blood Blood Culture - Final No growth 11/11/18 16:38 Blood Blood Culture - Final No growth XR chest 1V portable CLINICAL HISTORY: 73 years-old Male presenting with pneumonia. TECHNIQUE: Portable upright AP view of the chest was obtained. COMPARISON: 12/02/2018. FINDINGS: Radiodense beads project over the left upper lung with overlying skin cy. A crescent of air along the periphery may suggest an intracavitary location of the therapeutic beads. Cardiac mediastinal silhouette grossly stable. Stable slight increased opacity in the right lung base. Persistent small right pleural effusion or pleural thickening. Significant underlying heterogeneity of lung parenchyma. Architectural distortion at the left lung base is unchanged. No large pneumothorax. Skinfold suggested over the right apex. Osseous structures normal. Upper abdomen normal. IMPRESSION: 1. Stable to slightly increased infiltrates in the right lung base. Worsening infection or atelectasis not excluded. 2. Overall stable postsurgical changes in the left upper lung. Electronically signed by: Jeffrey Frances M.D. 12/03/2018 8:12 AM Dictated: 12/03/18 0809 Transcribed: 12/03/18 0809
--- NOTE | 2018-12-03 19:21 | Hospitalist Progress Note ---
Date of Service December 03, 2018 Assessment & Plan (1) Acute respiratory failure with hypoxia: He has had an increasing O2 requirement over the last few days. I believe this is due to volume overload from decompensated CHF. There was some concern that he had recurrent RLL pneumonia once again but this is felt to be less likely at this point. Will change PO lasix to IV. stop zosyn. hold voriconazole. daily weights, strict I/O's, etc. (2) Acute on chronic systolic (congestive) heart failure: change PO lasix to IV. follow clinical response. continue BB if blood pressure will allow. (3) Severe protein-calorie malnutrition: ongoing multifactorial (4) Physical deconditioning: severe due to prolonged, recurrent hospitalizations in the midst of significant comorbidities (5) ATN (acute tubular necrosis): resolved (6) Coagulopathy: 2nd to shock liver - resolved repeat INR in am (7) RLL pneumonia: completed full course of IV abx earlier this stay. was restarted on antibiotics over the weekend due to concerns of recurrent RLL pneumonia. this appears to be less of a concern today; will stop abx and observe off of such. (8) Shock liver: just about resolved would still hold lipitor at this time along with tylenol etc (9) Insomnia: ongoing issue melatonin not helping morphine at HS not helping poor candidate for benzos or ambien trazodone or doxepin in low dose? 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: has been intermittently taking voriconazole for such with interruption of therapy in the midst of recent shock liver will place on hold again since abx-beads in the CHATA cavity apparently have anti- fungals in them will d/w ID (12) COPD (chronic obstructive pulmonary disease): no exacerbation at this time (13) DM II (diabetes mellitus, type II), controlled: adequate control (14) BPH (benign prostatic hyperplasia): finasteride (15) DVT prophylaxis: heparin 5000 BID I would suggest meeting with case management, thoracic surgery, patient, , daughter, and hospitalist team to define goals of care as well as general plan in light of prolonged hospitalization, numerous complications and set-backs, ongoing deconditioning, and poor prognosis Subjective patient's was present during my visit. the patient himself reported ongoing issues with extreme fatigue, insomnia, and weakness. he also has ongoing BEE. no dyspnea at rest. mild cough. he is irritated about his overall state. he remains connected to suction for his left anterior chest flap. Constitutional: no fever Respiratory: + dyspnea on exertion Cardiovascular: no chest pain Gastrointestinal: no abdominal pain, no nausea, no vomiting and no diarrhea/ loose stools Physical Exam 2 Vital Signs (Past 24 Hours): Last Vital Signs Temp 36.3 C L 12/03/18 15:28 Pulse 99 H 12/03/18 15:28 Resp 16 12/03/18 15:28 BP 89/63 L 12/03/18 15:28 Pulse Ox 95 12/03/18 15:28 Constitutional: + cachectic; no acute distress ENMT: external ear and nose normal, oropharynx normal Respiratory: Auscultation: + crackles (bases) and + wheezes Cardiovascular: Rate/Rhythm: regular rhythm and + tachycardic Heart Sounds : normal S1 and normal S2 Vessels: + JVD, posterior tibial pulses present and dorsalis pedis pulses present Extremities: + edema (2+ b/l ) Gastrointestinal (Abdomen): normal bowel sounds, soft, nontender, no hepatosplenomegaly Skin: left anterior chest wall with dressings intact Psychiatric: Orientation: alert and oriented x 3 Affect: + depressed affect Results & Data Laboratory Results Laboratory Results - last 24 hr 12/02/18 12/03/18 12/03/18 20:14 07:21 07:21 WBC 6.70 RBC 3.39 L Hgb 9.9 L Hct 31.9 L MCV 94.1 MCH 29.2 MCHC 31.0 L RDW Std Deviation 81.9 H RDW Coeff of Molly 24.0 H Plt Count 271 MPV 10.2 Immature Gran % (Auto) 0.3 Neut % (Auto) 72.0 Lymph % (Auto) 10.3 [place] % (Auto) 13.0 Eos % (Auto) 4.3 Baso % (Auto) 0.1 Immature Gran # (Auto) 0.02 Neut # (Auto) 4.82 Lymph # (Auto) 0.69 L [place] # (Auto) 0.87 H Eos # (Auto) 0.29 Baso # (Auto) 0.01 Anisocytosis Present Sodium 140 Potassium 4.0 Chloride 104 Carbon Dioxide 29 Anion Gap 7.0 BUN 33 H Creatinine 1.11 Est Cr Clr Drug Dosing 47.2 Est GFR ( Amer) 74.9 Est GFR (Non-Af Amer) 64.6 BUN/Creatinine Ratio 29.5 H Glucose 77 POC Glucose 140 H Calcium 9.1 Magnesium 1.9 Total Bilirubin 0.7 Direct Bilirubin 0.4 H AST 30 ALT 134 H Alkaline Phosphatase 361 H Total Protein 6.3 L Albumin 2.0 L 12/03/18 12/03/18 12/03/18 08:00 12:04 17:09 WBC RBC Hgb Hct MCV MCH MCHC RDW Std Deviation RDW Coeff of Molly Plt Count MPV Immature Gran % (Auto) Neut % (Auto) Lymph % (Auto) [place] % (Auto) Eos % (Auto) Baso % (Auto) Immature Gran # (Auto) Neut # (Auto) Lymph # (Auto) [place] # (Auto) Eos # (Auto) Baso # (Auto) Anisocytosis Sodium Potassium Chloride Carbon Dioxide Anion Gap BUN Creatinine Est Cr Clr Drug Dosing Est GFR ( Amer) Est GFR (Non-Af Amer) BUN/Creatinine Ratio Glucose POC Glucose 86 125 H 97 Calcium Magnesium Total Bilirubin Direct Bilirubin AST ALT Alkaline Phosphatase Total Protein Albumin _ (1) RLL pneumonia Pneumonia type: due to unspecified organism Aspiration pneumonia type: Qualified Code(s): J18.1 - Lobar pneumonia, unspecified organism (2) Insomnia Insomnia type: unspecified Qualified Code(s): G47.00 - Insomnia, unspecified (3) COPD (chronic obstructive pulmonary disease) COPD type: chronic bronchitis Chronic bronchitis type: unspecified Emphysema type: Qualified Code(s): J42 - Unspecified chronic bronchitis (4) DM II (diabetes mellitus, type II), controlled Diabetes mellitus chcf insulin use: without terminal clerk use Diabetes mellitus complication status: with kidney complications Diabetes mellitus complication detail: with chronic kidney disease Diabetic retinopathy severity : Proliferative retinopathy type: Diabetes mellitus macular edema: Laterality: Chronic kidney disease stage: stage 3 (moderate) Qualified Code(s ): E11.22 - Type 2 diabetes mellitus with diabetic chronic kidney disease; N18.3 - Chronic kidney disease, stage 3 (moderate) (5) BPH (benign prostatic hyperplasia) Lower urinary tract symptom presence: symptoms absent Lower urinary tract symptom detail: Qualified Code(s): N40.0 - Benign prostatic hyperplasia without lower urinary tract symptoms
[2018-12-03] MEDS: MELATONIN 1 MG PO SCH (21:01)
[2018-12-04] MEDS: CARBOHYDRATES FOR HYPOGLYCEMIA PO PRN (08:06)
[2018-12-04 08:40] LABS: INR 1.2 (0.9-1.1); Prothrombin Time 12.4 Seconds (9.0-12.0)
[2018-12-04 09:06] LABS: Albumin Level 2.1 gm/dl (3.4-5.0); BUN Creatinine Ratio 26.9 (10-20); Creatinine Clr Calc Pharmacy 38.9 ml/min; Est GFR (African American) 64.9; Potassium 3.6 mmol/L (3.5-5.1)
[2018-12-04 09:09] LABS: Albumin Globulin Ratio 0.5 (0.9-2); Bilirubin,Total 0.6 mg/dl (0.2-1); Globulin 4.2 gm/dl (2.5-4.0); Total Protein 6.3 gm/dl (6.4-8.2)
[2018-12-04] MEDS: LACTOBACILLUS ACIDOPHILUS (FLORANEX) TAB PO SCH ×3 (09:15→17:58)
--- NOTE | 2018-12-04 09:15 | Progress Note ---
DATE: 12/04/2018 Mr. Aden's suction appears to be working well now. He has had a quiet night. He walked more yesterday. He states he is eating better. He is on 5 liters, 94% saturations. He sounds much better. We are going to check an x-ray on him in the morning. I think we are going to have a problem with Mr. Aden. His ultimate disposition is going to be problematic. He would like to go home, but I believe the suction on his wound is going to be important for at least the next week or so. In addition, he is quite weak and oxygen dependent. I do believe he will get better from this, however. It is a very complex situation with a very complex patient and I would not be in a castro to get him out of the hospital.
[2018-12-04] MEDS: ASPIRIN 81 MG ECTAB PO SCH (09:16)
[2018-12-04] MEDS: guaiFENesin 600 MG TABCR PO SCH ×2 (09:16→21:26)
[2018-12-04] MEDS: MAGNESIUM OXIDE 400 MG TAB PO SCH (09:16)
[2018-12-04] MEDS: FERROUS SULFATE 325 MG TAB PO SCH ×2 (09:16→21:23)
[2018-12-04] MEDS: FINASTERIDE 5 MG TAB PO SCH (09:17)
[2018-12-04] MEDS: CEROVITE ADV FORMULA TAB PO SCH (09:17)
[2018-12-04] MEDS: PANTOprazole 40 MG TAB PO SCH (09:17)
[2018-12-04] MEDS: METOPROLOL SUCC 25MG EXT REL TAB PO SCH (09:18)
[2018-12-04] MEDS: CYANOCOBALAMIN 500 MCG TABLET (VITAMIN B-12) PO SCH (09:18)
[2018-12-04] MEDS: INSULIN ASPART 100 UNITS/ML 3 ML PEN SC SCH ×4 (09:21→21:26)
[2018-12-04] MEDS: INSULIN GLARGINE SOLOSTAR 100 UNITS/ML 3 ML PEN SC SCH (09:22)
[2018-12-04] MEDS: HEPARIN SOD 5,000 UNIT/0.5 ML VIAL SQ SCH ×2 (09:24→21:23)
[2018-12-04] MEDS: FUROSEMIDE 20 MG in SYRINGE 0 ML IV SCH ×2 (10:23→17:58)
--- NOTE | 2018-12-04 16:13 | Palliative Care Progress Note ---
Date of Service December 04, 2018 Assessment & Plan (1) Goals of care, counseling/discussion: (1) Palliative care encounter: -Patient states he is feeling "much better." Patient feels that his strength,SOB and appetite have improved. Had antifungal beads placed in Eloesser flap on 11/30 . Oxygen requirements are increasing - now on O2 at 4.5-5L NC, IV Voriconazole on hold. -Uncertain of discharge planning at this time-Dr. Srivastava would like to see the wound heal more before he goes home. Plan was to eventually get home with hospice. Active treatment for this infection continues. -Will continue to follow. (2) Cavitary pneumonia: (3) Aspergillus fumigatus: (4) CHF (congestive heart failure): (5) Elevated LFTs: (6) Ischemic cardiomyopathy: (7) Small cell lung cancer: Stable Subjective Patient seen and examined, patient's daughter at bedside. Patient awake and alert, no acute distress. Patient now on O2 at 4.5 L nasal cannula-patient less short of breath with conversation. Patient states he was able to ambulate 1-1/2 laps around the floor with therapy. Review of Systems Patient denies fever, chills, chest pain, increased shortness of breath, or GI issues. Physical Exam 2 Vital Signs (Past 24 Hours): Last Vital Signs Temp 36.5 C 12/04/18 15:06 Pulse 97 H 12/04/18 15:27 Resp 16 12/04/18 15:06 BP 114/70 12/04/18 15:06 Pulse Ox 98 12/04/18 15:06 Physical Exam: PE: Patient comfortable at rest HEENT: EOMI, normal hearing Respirations: Patient using pursed lip breathing less frequently, able to carry on a conversation more easily without shortness of breath, coarse rhonchi on right, clear breath sounds on left CV: Regular rate, lower extremity edema bilaterally to just below the knees Abdomen: Soft nontender Extremities: Full range of motion Neuro: Alert and oriented Psych: Appropriate mood Time Spent Attending Total time spent 35 minutes with greater than 50% of the time spent discussing patient's goals of care with patient and family as well as assessing his current status
--- NOTE | 2018-12-04 20:53 | Hospitalist Progress Note ---
Date of Service December 04, 2018 Assessment & Plan (1) Acute respiratory failure with hypoxia: Multifactorial, but primary player right now is that of acute/chronic systolic CHF. Continue to diurese. (2) Acute on chronic systolic (congestive) heart failure: Improving volume status. Tolerating diuresis with stable BUN & Cr. Cont lasix 20mg BID IV. Repeat labs and exam in am. Cont BB. (3) Severe protein-calorie malnutrition: ongoing multifactorial (4) Physical deconditioning: severe due to prolonged, recurrent hospitalizations in the midst of significant comorbidities (5) ATN (acute tubular necrosis): resolved (6) Coagulopathy: 2nd to shock liver - resolved INR today nearly normal (7) RLL pneumonia: completed full course of IV abx earlier this stay. resolved. (8) Shock liver: LFTs continue to trend towards normal. would still hold lipitor at this time along with tylenol etc (9) Insomnia: ongoing issue melatonin not helping morphine at HS not helping poor candidate for benzos or ambien try trazodone 25mg at HS. 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 at least 30 minutes possibly 40 minutes spent discussing current issues including his disposition. disposition is uncertain due to the issues with his Eloesser flap and the current suction that is in place. the current set up is likely not amenable outside of a hospital setting. he is a very poor candidate for rehab at [facility], SNF, or an [facility]-Tach. his best option still is home with hospice. he is becoming more depressed by the day. I gave Mr. Aden and his family support and encouragement. They will continue to parish over the options; seems to be encouraging him to stick with original plan of home with hospice. total time today about 65 minutes. Subjective patient laying in bed looking very despondent today he states "I'm doing better" but when asked if he felt depressed he gestured yes states he is less short of breath today states he is walking better appetite also a little better , son at bedside we had a 30+ minute conversation discussing goals of care, options for care, etc hospice was discussed in fact his brought hospice up several times throughout the conversation family reports their cleaning specialist paid them a visit today Constitutional: + fatigue, + weakness and + insomnia; no fever Respiratory: + dyspnea on exertion; no cough Cardiovascular: + edema; no orthopnea and no paroxysmal nocturnal dyspnea Gastrointestinal: no abdominal pain, no nausea and no vomiting Psychiatric: + depression and + abnormal sleep pattern Physical Exam 2 Vital Signs (Past 24 Hours): Last Vital Signs Temp 36.5 C 12/04/18 15:06 Pulse 97 H 12/04/18 15:27 Resp 16 12/04/18 15:06 BP 114/70 12/04/18 15:06 Pulse Ox 98 12/04/18 15:06 Constitutional: + ill appearing, + thin and + cachectic; no acute distress depressed appearing ENMT: external ear and nose normal, oropharynx normal Respiratory: Auscultation: + diminished lung sounds (bases ), + rales (bases) and + wheezes (MUCH improved today); no rhonchi Cardiovascular: Rate/Rhythm: regular rate and regular rhythm Heart Sounds: normal S1 and normal S2; no murmur Vessels: + JVD, posterior tibial pulses present and dorsalis pedis pulses present Extremities: + edema (2+ b/l ) Gastrointestinal (Abdomen): normal bowel sounds, soft, nontender, no hepatosplenomegaly Percussion/Palpation: no splenomegaly Psychiatric: Orientation: alert and oriented x 3 Affect: + depressed affect Results & Data Laboratory Results Laboratory Results - last 24 hr 12/04/18 12/04/18 12/04/18 08:02 08:18 08:18 PT 12.4 H INR 1.2 H Sodium 139 Potassium 3.6 Chloride 102 Carbon Dioxide 29 Anion Gap 8.0 BUN 34 H Creatinine 1.25 Est Cr Clr Drug Dosing 38.9 Est GFR ( Amer) 64.9 Est GFR (Non-Af Amer) 56.0 BUN/Creatinine Ratio 26.9 H Glucose 71 POC Glucose 67 L* Calcium 9.0 Total Bilirubin 0.6 AST 29 ALT 109 H Alkaline Phosphatase 308 H Total Protein 6.3 L Albumin 2.1 L Globulin 4.2 H Albumin/Globulin Ratio 0.5 L 12/04/18 12/04/18 12/04/18 08:21 11:46 17:20 PT INR Sodium Potassium Chloride Carbon Dioxide Anion Gap BUN Creatinine Est Cr Clr Drug Dosing Est GFR ( Amer) Est GFR (Non-Af Amer) BUN/Creatinine Ratio Glucose POC Glucose 71 145 H 100 H Calcium Total Bilirubin AST ALT Alkaline Phosphatase Total Protein Albumin Globulin Albumin/Globulin Ratio _ (1) RLL pneumonia Pneumonia type: due to unspecified organism Aspiration pneumonia type: Qualified Code(s): J18.1 - Lobar pneumonia, unspecified organism (2) Insomnia Insomnia type: unspecified Qualified Code(s): G47.00 - Insomnia, unspecified (3) COPD (chronic obstructive pulmonary disease) COPD type: chronic bronchitis Chronic bronchitis type: unspecified Emphysema type: Qualified Code(s): J42 - Unspecified chronic bronchitis (4) DM II (diabetes mellitus, type II), controlled Diabetes mellitus transportation equipment painter insulin use: without senior living use Diabetes mellitus complication status: with kidney complications Diabetes mellitus complication detail: with chronic kidney disease Diabetic retinopathy severity : Proliferative retinopathy type: Diabetes mellitus macular edema: Laterality: Chronic kidney disease stage: stage 3 (moderate) Qualified Code(s ): E11.22 - Type 2 diabetes mellitus with diabetic chronic kidney disease; N18.3 - Chronic kidney disease, stage 3 (moderate) (5) BPH (benign prostatic hyperplasia) Lower urinary tract symptom presence: symptoms absent Lower urinary tract symptom detail: Qualified Code(s): N40.0 - Benign prostatic hyperplasia without lower urinary tract symptoms
[2018-12-04] MEDS: TRAZODONE HCL 50 MG TAB PO SCH (21:23)
[2018-12-04] MEDS: MELATONIN 1 MG PO SCH (21:26)
[2018-12-05 08:23] LABS: BUN Creatinine Ratio 25.8 (10-20); Calcium 8.7 mg/dl (8.5-10.1); Creatinine Clr Calc Pharmacy 39.5 ml/min; Est GFR (African American) 62.4; Est GFR (Non-African American) 53.9; Magnesium 1.8 mg/dl (1.8-2.4); Potassium 3.5 mmol/L (3.5-5.1)
[2018-12-05] MEDS: LACTOBACILLUS ACIDOPHILUS (FLORANEX) TAB PO SCH ×3 (09:14→17:26)
[2018-12-05] MEDS: PANTOprazole 40 MG TAB PO SCH (09:15)
[2018-12-05] MEDS: MAGNESIUM OXIDE 400 MG TAB PO SCH (09:15)
[2018-12-05] MEDS: CEROVITE ADV FORMULA TAB PO SCH (09:15)
[2018-12-05] MEDS: FINASTERIDE 5 MG TAB PO SCH (09:15)
[2018-12-05] MEDS: ASPIRIN 81 MG ECTAB PO SCH (09:15)
[2018-12-05] MEDS: guaiFENesin 600 MG TABCR PO SCH ×2 (09:16→21:13)
[2018-12-05] MEDS: CYANOCOBALAMIN 500 MCG TABLET (VITAMIN B-12) PO SCH (09:16)
[2018-12-05] MEDS: FERROUS SULFATE 325 MG TAB PO SCH ×2 (09:22→21:13)
[2018-12-05] MEDS: METOPROLOL SUCC 25MG EXT REL TAB PO SCH (09:22)
[2018-12-05] MEDS: INSULIN GLARGINE SOLOSTAR 100 UNITS/ML 3 ML PEN SC SCH (09:27)
[2018-12-05] MEDS: INSULIN ASPART 100 UNITS/ML 3 ML PEN SC SCH ×4 (09:28→21:15)
[2018-12-05] MEDS: HEPARIN SOD 5,000 UNIT/0.5 ML VIAL SQ SCH ×2 (09:31→21:15)
[2018-12-05] MEDS: FUROSEMIDE 20 MG in SYRINGE 0 ML IV SCH ×2 (09:38→17:26)
--- NOTE | 2018-12-05 11:00 | Progress Note ---
DATE: 12/05/2018 Mr. Aden was seen today. He sounds better to me. He does appear to be depressed and I would agree with Dr. Ochoa and Dr. Briceno that he is depressed. He states he is eating well. He slept better last night. He is walking more. The problem is going to be the suction over the wound. I think this is a very important part of his healing now. I would like to reassess this wound in the next several days at bedside by removing the mesh under local anesthesia and putting it back on. He still has a fairly significant leak of air and I think he needs the suction. We will check a chest x-ray on him in the morning.
[2018-12-05] MEDS: POTASSIUM CHLORIDE 20 MEQ TABCR PO SCH ×2 (11:08→21:15)
--- NOTE | 2018-12-05 15:01 | Ultrasound Report ---
US venous doppler LE RT CLINICAL HISTORY: 73 years-old Male presenting with prolonged hospital stay, asymmetric edema; r/o DV T. TECHNIQUE: Real-time grayscale and color and spectral Doppler ultrasound imaging of the veins of the right lower extremity was performed. Compression and augmentation were also utilized. COMPARISON: 06/03/2018. FINDINGS: RIGHT: Common femoral vein: Patent. Greater saphenous vein (superficial): Patent. Deep femoral vein: Patent. Femoral vein: Patent. Popliteal vein: Patent. Calf veins: Patent. Other: None. IMPRESSION: No evidence of deep venous thrombosis. Electronically signed by: Jeffrey Frances M.D. 12/05/2018 2:59 PM
--- NOTE | 2018-12-05 18:38 | Hospitalist Progress Note ---
Date of Service December 05, 2018 Assessment & Plan (1) Acute respiratory failure with hypoxia: Multifactorial, but primary player right now is that of acute/chronic systolic CHF. Continue to diurese. Suspect we will be able to wean, at least some, of the O2 over the next few days. (2) Acute on chronic systolic (congestive) heart failure: Improving volume status. BUN & Cr still stable. Cont lasix 20mg BID IV. Repeat labs and exam in am. Cont BB. (3) Severe protein-calorie malnutrition: ongoing multifactorial boost or boost breeze, etc trazodone may help him gain weight consider remeron (4) Physical deconditioning: severe due to prolonged, recurrent hospitalizations in the midst of significant comorbidities (5) ATN (acute tubular necrosis): resolved (6) Coagulopathy: 2nd to shock liver - resolved (7) RLL pneumonia: completed full course of IV abx earlier this stay. resolved. (8) Shock liver: LFTs continue to trend towards normal. would still hold lipitor at this time along with tylenol etc recheck LFTs in 48 hours for stability (9) Insomnia: cont trazodone 25mg at HS. (10) Cavitary pneumonia: CHATA, with fungal ball was receiving voriconazole, s/p Eloesser flap, then debridement of same with placement of abx-beads laden with vanco, gen, and antifungal therapy voriconazole placed on hold again remains on suction to Eloesser flap under direction/management of Dr. 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 Srivastava and pt's today along with Social Work plan - meeting tomorrow at 1pm to discuss disposition Subjective patient states that again he did not sleep yesterday evening but staff report he indeed did during my visit he was fairly sleepy and offered no complaints and was not very talkative today seemed quite depressed Constitutional: no fever Respiratory: + dyspnea on exertion; no cough and no hemoptysis Cardiovascular: + edema; no chest pain, no orthopnea and no paroxysmal nocturnal dyspnea Gastrointestinal: no abdominal pain, no constipation and no diarrhea/loose stools Psychiatric: + depression and + abnormal sleep pattern Physical Exam 2 Vital Signs (Past 24 Hours): Last Vital Signs Temp 36.6 C 12/05/18 15:53 Pulse 100 H 12/05/18 15:53 Resp 16 12/05/18 15:53 BP 100/56 L 12/05/18 15:53 Pulse Ox 99 12/05/18 15:53 Constitutional: + ill appearing, + thin and + cachectic; no acute distress ENMT: external ear and nose normal, oropharynx normal Respiratory: no respiratory distress Auscultation: + diminished lung sounds (bases ); no rales, no rhonchi and no wheezes (resolved) Cardiovascular: Rate/Rhythm: regular rhythm and + tachycardic Heart Sounds : normal S1 and normal S2; no murmur Vessels: + JVD, posterior tibial pulses present and dorsalis pedis pulses present Extremities: + edema (1+ b/l ) Gastrointestinal (Abdomen): normal bowel sounds, soft, nontender, no hepatosplenomegaly Psychiatric: Orientation: alert and oriented x 3 Affect: + depressed affect Results & Data Laboratory Results Laboratory Results - last 24 hr 12/05/18 12/05/18 12/05/18 07:34 08:14 12:06 Sodium 138 Potassium 3.5 Chloride 100 Carbon Dioxide 32 Anion Gap 6.0 BUN 33 H Creatinine 1.29 Est Cr Clr Drug Dosing 39.5 Est GFR ( Amer) 62.4 Est GFR (Non-Af Amer) 53.9 BUN/Creatinine Ratio 25.8 H Glucose 114 H POC Glucose 134 H 205 H Calcium 8.7 Magnesium 1.8 12/05/18 12/05/18 17:03 20:57 Sodium Potassium Chloride Carbon Dioxide Anion Gap BUN Creatinine Est Cr Clr Drug Dosing Est GFR ( Amer) Est GFR (Non-Af Amer) BUN/Creatinine Ratio Glucose POC Glucose 154 H 135 H Calcium Magnesium _ (1) BPH (benign prostatic hyperplasia) Lower urinary tract symptom detail: Lower urinary tract symptom presence: symptoms absent Qualified Code(s): N40.0 - Benign prostatic hyperplasia without lower urinary tract symptoms (2) Insomnia Insomnia type: unspecified Qualified Code(s): G47.00 - Insomnia, unspecified (3) DM II (diabetes mellitus, type II), controlled Chronic kidney disease stage: stage 3 (moderate) Diabetes mellitus complication detail: with chronic kidney disease Diabetes mellitus complication status: with kidney complications Diabetes mellitus solutions architect consultant insulin use: without detention use Diabetes mellitus macular edema: Diabetic retinopathy severity: Laterality: Proliferative retinopathy type: Qualified Code(s): E11.22 - Type 2 diabetes mellitus with diabetic chronic kidney disease; N18.3 - Chronic kidney disease, stage 3 (moderate) (4) COPD (chronic obstructive pulmonary disease) COPD type: chronic bronchitis Chronic bronchitis type: unspecified Emphysema type: Qualified Code(s): J42 - Unspecified chronic bronchitis (5) RLL pneumonia Aspiration pneumonia type: Pneumonia type: due to unspecified organism Qualified Code(s): J18.1 - Lobar pneumonia, unspecified organism
[2018-12-05] MEDS: TRAZODONE HCL 50 MG TAB PO SCH (21:15)
[2018-12-05] MEDS: MELATONIN 1 MG PO SCH (21:15)
[2018-12-06 06:59] LABS: BUN Creatinine Ratio 27.1 (10-20); Calcium 8.7 mg/dl (8.5-10.1); Creatinine Clr Calc Pharmacy 42.6 ml/min; Est GFR (African American) 68.8; Est GFR (Non-African American) 59.4; Potassium 3.9 mmol/L (3.5-5.1)
--- NOTE | 2018-12-06 07:17 | XRay Report ---
SINGLE VIEW CHEST CLINICAL HISTORY: Hypoxia. FINDINGS: An AP, portable, upright chest radiograph is compared to dated 12/03/2018 and correlated wit h chest CT dated 10/26/2018. The examination is degraded by portable technique and patient rotation. T he heart is top normal for projection and there is atherosclerotic calcification of the thoracic aort a. Advanced emphysema and chronic interstitial thickening are similar to previous. Skin clips project over the left apex. There is persistent opacification of the left apex with radiodense beads in plac e. Right basilar consolidation is again noted. Small pleural effusions are identified. No pneumothora x is clearly seen. The skeletal structures are osteopenic. The bony thorax is grossly intact. Subcuta neous emphysema is suggested in the left upper chest. IMPRESSION: 1. No significant change from yesterday. 2. Advanced emphysema and left apical opacities/radiodense beads are similar to previous. 3. There is persistent consolidation at the right lung base. 4. There are bilateral pleural effusions. Electronically signed by: Demario Geller M.D. 12/06/2018 7:15 AM
[2018-12-06] MEDS: METOPROLOL SUCC 25MG EXT REL TAB PO SCH (08:51)
[2018-12-06] MEDS: ASPIRIN 81 MG ECTAB PO SCH (08:51)
[2018-12-06] MEDS: LACTOBACILLUS ACIDOPHILUS (FLORANEX) TAB PO SCH ×3 (08:51→18:16)
[2018-12-06] MEDS: MAGNESIUM OXIDE 400 MG TAB PO SCH (08:51)
[2018-12-06] MEDS: FERROUS SULFATE 325 MG TAB PO SCH ×2 (08:51→21:15)
[2018-12-06] MEDS: CYANOCOBALAMIN 500 MCG TABLET (VITAMIN B-12) PO SCH (08:51)
[2018-12-06] MEDS: FINASTERIDE 5 MG TAB PO SCH (08:51)
[2018-12-06] MEDS: PANTOprazole 40 MG TAB PO SCH (08:52)
[2018-12-06] MEDS: CEROVITE ADV FORMULA TAB PO SCH (08:52)
[2018-12-06] MEDS: guaiFENesin 600 MG TABCR PO SCH ×2 (08:52→21:16)
[2018-12-06] MEDS: HEPARIN SOD 5,000 UNIT/0.5 ML VIAL SQ SCH ×2 (08:52→21:13)
[2018-12-06] MEDS: POTASSIUM CHLORIDE 20 MEQ TABCR PO SCH ×2 (08:52→21:15)
[2018-12-06] MEDS: INSULIN GLARGINE SOLOSTAR 100 UNITS/ML 3 ML PEN SC SCH (08:53)
[2018-12-06] MEDS: FUROSEMIDE 20 MG in SYRINGE 0 ML IV SCH ×2 (08:53→18:16)
[2018-12-06] MEDS: INSULIN ASPART 100 UNITS/ML 3 ML PEN SC SCH ×4 (09:07→21:13)
--- NOTE | 2018-12-06 12:37 | Progress Note ---
DATE: 12/06/2018 Mr. Aden was seen today. He seems in a bit better spirits. He states he feels he ate better and get some sleep last night. He has been walking more. His saturations are better. He is 99% on 3 liters today. His x-ray shows no significant change and he is really not coughing up anything. Calcium today is 8.7 and his vancomycin level and his gentamicin levels from the 17 were low as would be expected. He sounds better to me on exam. I had a long talk with Dr. Tony Ontiveros last night about his ultimate disposition. There is a family meeting that I will try to make today if I am not in the operating room. I have explained that I think it would be very good for Mr. Aden to go home. I think it would help him psychologically more than anything. I think he is getting stronger. It is my hope that what we have done will prevent him from having any further episodic pneumonias. I would like to try and set him up to have suction at home. We will work this out with the homecare nurses.
--- NOTE | 2018-12-06 15:24 | Palliative Care Progress Note ---
Date of Service December 06, 2018 Assessment & Plan (1) Palliative care encounter: -Family meeting held today to discuss goals and plan of care. -Plan will be fore patient to go home with this wound vac/suction aparatus in place. His chest wound is packed and has wound vac set up intact, but is connected to continuous wall suction draining into a canister. Dr. Srivastava states that the plan would be to continue the current suction set up until air leak is resolved, then switch to wound vac. -Patient will need frequent follow-up with Dr. Srivastava. 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 His prognosis based on these comorbidities alone is guarded. Patient states the most important thing to him is to be at home and stay out of the hospital. -We discussed home health vs. hospice. Patient and family agree that hospice is likely what would benefit the patient the most. Case management will work with home nursing agency to see if home hospice is a possibility with patient's issues. Hopefully we can work out a palliative care plan for the patient to be comfortable at home. -Will continue to follow as needed. (2) Cavitary pneumonia: Status post Eloesser flap-respiratory status improved (3) Aspergillus fumigatus: (4) CHF (congestive heart failure): (5) Ischemic cardiomyopathy: EF 15% (6) Small cell lung cancer: Stable Subjective Patient feeling about the same today. He still feels that he is making small bits of progress each day. Family meeting held with myself, Dr. Ontiveros, Dr. Srivastava, patient, patient's Renee, daughter Ryann, keycase assembler Terra, and [employer] student Stephanie. Plan and goals of care discussed. Constitutional: + weakness Respiratory: + cough, + dyspnea and + dyspnea on exertion Cardiovascular: + edema (improved); no chest pain Gastrointestinal: no abdominal pain, no nausea and no vomiting Musculoskeletal: + muscle weakness Neurologic: no confusion Psychiatric: + depression; no anxiety Physical Exam 2 Vital Signs (Past 24 Hours): Last Vital Signs Temp 36.6 C 12/06/18 07:25 Pulse 89 12/06/18 07:25 Resp 16 12/06/18 07:25 BP 95/63 L 12/06/18 07:25 Pulse Ox 99 12/06/18 07:25 Constitutional: + ill appearing (chronically), + frail appearing and + malnourished ENMT: Ears: no hearing impairment Neck: normal visual inspection and trachea midline Respiratory: Auscultation: + diminished lung sounds; no rhonchi Cardiovascular: RRR, no murmur, no edema Gastrointestinal (Abdomen): normal bowel sounds, soft, nontender, no hepatosplenomegaly Neurologic: awake; not confused Psychiatric: A+Ox3, euthymic affect Time Spent Midlevel 65 minutes with >50% of time spent at bedside with patient, family, and providers/IDT discussing condition and plan of care. _ (1) CHF (congestive heart failure) Heart failure chronicity: acute on chronic Heart failure type: unspecified Qualified Code(s): I50.9 - Heart failure, unspecified
--- NOTE | 2018-12-06 20:05 | Hospitalist Progress Note ---
Date of Service December 06, 2018 Assessment & Plan (1) Acute respiratory failure with hypoxia: Multifactorial. Main issue is that of left upper lobe cavity s/p Eloesser flap as well as acute/ chronic systolic CHF. Continue to diurese. Suspect we will be able to wean, at least some, of the O2 over the next few days. But, if patient returns home w/ hospice, regardless of O2 sats -- would send with NC O2. (2) Acute on chronic systolic (congestive) heart failure: Still volume overloaded clinically. Cont IV lasix. Daily BMP. (3) Severe protein-calorie malnutrition: ongoing multifactorial boost or boost breeze, etc trazodone may help him gain weight consider remeron but he declines antidepressant (4) Physical deconditioning: severe due to prolonged, recurrent hospitalizations in the midst of significant comorbidities (5) ATN (acute tubular necrosis): resolved (6) Coagulopathy: 2nd to shock liver - resolved (7) RLL pneumonia: completed full course of IV abx earlier this stay. clinically resolved. (8) Shock liver: LFTs continue to trend towards normal. would still hold lipitor at this time along with tylenol etc recheck LFTs later in his stay to ensure stability and normalization (9) Insomnia: cont trazodone 25mg at HS. (10) Cavitary pneumonia: CHATA, with fungal ball was receiving voriconazole, s/p Eloesser flap, then debridement of same with placement of abx-beads laden with vanco, gen, and antifungal therapy voriconazole placed on hold I spoke with Dr. Rodriguez - we can continue to hold voriconazole remains on suction to Eloesser flap under direction/management of Dr. Srivastava (11) Aspergillus fumigatus: has been intermittently taking voriconazole for such with interruption of therapy in the midst of recent shock liver placed on hold again since abx-beads in the CHATA cavity have anti-fungals in them continue to hold antifungal therapy (12) COPD (chronic obstructive pulmonary disease): no exacerbation at this time (13) DM II (diabetes mellitus, type II), controlled: control acceptable lows resolved (14) BPH (benign prostatic hyperplasia): finasteride no issues (15) Chronic kidney disease with symptom management only, stage 3 (moderate): creatinine at baseline (16) DVT prophylaxis: heparin 5000 BID RLE doppler neg for DVT (17) Discharge planning issues: lengthy meeting today (50 min in duration) with pt, his , daughter, palliative care, SW, and Dr. Srivastava we discussed all issues as well as d/c plan in the end patient and his are agreeable to HOME w/ hospice barrier to home will be the suction apparatus being used on Eloesser flap Terra from to reach out to Home Nursing Agency [facility] to figure out if this suction device if feasible at home cont IV diuresis in the meantime appreciate everyone's help from the care team total time today spent over 2 visits - 70 minutes Subjective 2 visits to see patient today first was during AM rounds he offered no significant complaints BEE about baseline we talked about the potential of depression - he stated "don't put me on an antidepressant - I'm not depressed" 2nd visit was during the afternoon we had a 50 minute long family conference -- Dr. Srivastava, myself, palliative care (Stephanie Barrera), , daughter, and Terra from case management all present we all agreed that getting him home soon was best but the barrier was the suction device attached to his Eloesser flap he was finally agreeable to hospice Constitutional: + weakness; no fever and no chills Respiratory: + dyspnea on exertion; no cough Cardiovascular: no chest pain Gastrointestinal: no abdominal pain, no nausea, no vomiting and no constipation Physical Exam 2 Vital Signs (Past 24 Hours): Last Vital Signs Temp 36.3 C L 12/06/18 15:17 Pulse 104 H 12/06/18 15:17 Resp 16 12/06/18 15:17 BP 95/67 L 12/06/18 15:17 Pulse Ox 100 12/06/18 15:17 Constitutional: + ill appearing, + thin and + cachectic; no acute distress ENMT: external ear and nose normal, oropharynx normal Respiratory: no respiratory distress Auscultation: + diminished lung sounds (bases ); no rales and no rhonchi Cardiovascular: Rate/Rhythm: regular rate, regular rhythm and + tachycardic Heart Sounds: normal S1 and normal S2; no murmur Vessels: + JVD, posterior tibial pulses present and dorsalis pedis pulses present Extremities: + edema (1+ b/l ) Chest (Breasts): Additional Comments: left upper - Eloesser flap covered with woundvac type dressing and tubing Gastrointestinal (Abdomen): normal bowel sounds, soft, nontender, no hepatosplenomegaly Psychiatric: Orientation: alert and oriented x 3 Affect: + depressed affect Results & Data Laboratory Results Laboratory Results - last 24 hr 12/05/18 12/06/18 12/06/18 20:57 05:07 08:05 Sodium 137 Potassium 3.9 Chloride 98 Carbon Dioxide 34 H Anion Gap 5.0 BUN 32 H Creatinine 1.19 Est Cr Clr Drug Dosing 42.6 Est GFR ( Amer) 68.8 Est GFR (Non-Af Amer) 59.4 BUN/Creatinine Ratio 27.1 H Glucose 136 H POC Glucose 135 H 147 H Calcium 8.7 12/06/18 12/06/18 11:59 17:22 Sodium Potassium Chloride Carbon Dioxide Anion Gap BUN Creatinine Est Cr Clr Drug Dosing Est GFR ( Amer) Est GFR (Non-Af Amer) BUN/Creatinine Ratio Glucose POC Glucose 196 H 163 H Calcium _ (1) BPH (benign prostatic hyperplasia) Lower urinary tract symptom detail: Lower urinary tract symptom presence: symptoms absent Qualified Code(s): N40.0 - Benign prostatic hyperplasia without lower urinary tract symptoms (2) Insomnia Insomnia type: unspecified Qualified Code(s): G47.00 - Insomnia, unspecified (3) DM II (diabetes mellitus, type II), controlled Chronic kidney disease stage: stage 3 (moderate) Diabetes mellitus complication detail: with chronic kidney disease Diabetes mellitus complication status: with kidney complications Diabetes mellitus longterm insulin use: without longterm use Diabetes mellitus macular edema: Diabetic retinopathy severity: Laterality: Proliferative retinopathy type: Qualified Code(s): E11.22 - Type 2 diabetes mellitus with diabetic chronic kidney disease; N18.3 - Chronic kidney disease, stage 3 (moderate) (4) COPD (chronic obstructive pulmonary disease) COPD type: chronic bronchitis Chronic bronchitis type: unspecified Emphysema type: Qualified Code(s): J42 - Unspecified chronic bronchitis (5) RLL pneumonia Aspiration pneumonia type: Pneumonia type: due to unspecified organism Qualified Code(s): J18.1 - Lobar pneumonia, unspecified organism
[2018-12-06] MEDS: TRAZODONE HCL 50 MG TAB PO SCH (21:14)
[2018-12-06] MEDS: MELATONIN 1 MG PO SCH (21:16)
[2018-12-07 08:43] LABS: Calcium 8.5 mg/dl (8.5-10.1); Creatinine Clr Calc Pharmacy 50.7 ml/min; Est GFR (Non-African American) 73.3
--- NOTE | 2018-12-07 09:02 | Progress Note ---
DATE: 12/07/2018 Mr. Aden was seen today. His vacuum is working well. He has drained some fluid from this, but it is dry around it. He has had a quiet night. He feels he is eating a bit better. We had a long discussion yesterday and we will get him set up for discharge in the near future.
[2018-12-07] MEDS: guaiFENesin 600 MG TABCR PO SCH (09:11)
[2018-12-07] MEDS: CYANOCOBALAMIN 500 MCG TABLET (VITAMIN B-12) PO SCH (09:11)
[2018-12-07] MEDS: CEROVITE ADV FORMULA TAB PO SCH (09:11)
[2018-12-07] MEDS: METOPROLOL SUCC 25MG EXT REL TAB PO SCH (09:11)
[2018-12-07] MEDS: LACTOBACILLUS ACIDOPHILUS (FLORANEX) TAB PO SCH ×3 (09:11→18:03)
[2018-12-07] MEDS: PANTOprazole 40 MG TAB PO SCH (09:11)
[2018-12-07] MEDS: FINASTERIDE 5 MG TAB PO SCH (09:12)
[2018-12-07] MEDS: FUROSEMIDE 20 MG in SYRINGE 0 ML IV SCH ×2 (09:12→18:03)
[2018-12-07] MEDS: MAGNESIUM OXIDE 400 MG TAB PO SCH (09:12)
[2018-12-07] MEDS: FERROUS SULFATE 325 MG TAB PO SCH (09:12)
[2018-12-07] MEDS: ASPIRIN 81 MG ECTAB PO SCH (09:12)
[2018-12-07] MEDS: POTASSIUM CHLORIDE 20 MEQ TABCR PO SCH ×2 (09:12→20:53)
[2018-12-07] MEDS: HEPARIN SOD 5,000 UNIT/0.5 ML VIAL SQ SCH ×2 (09:13→21:00)
[2018-12-07] MEDS: INSULIN GLARGINE SOLOSTAR 100 UNITS/ML 3 ML PEN SC SCH (09:13)
[2018-12-07] MEDS: INSULIN ASPART 100 UNITS/ML 3 ML PEN SC SCH ×4 (09:14→21:01)
--- NOTE | 2018-12-07 13:29 | Palliative Care Progress Note ---
Date of Service December 07, 2018 Assessment & Plan (1) Palliative care encounter: -Lengthy discussion with IDT today including Dr. Ontiveros, several representatives including two RNs from [facility], Terra from case management. -Also lengthy family meeting with all of the above team members, patient, patient's Renee and daughter Ryann. -Unfortunately, home hospice cannot provide the required equipment, service and/ or support for the current set-up for the chest wound suction. If patient wants to go home with hospice, it would need to be without the suction with a packed and dressed wound. -If patient wants to continue to seek treatment to get better and heal, he will likely need to go to a facility that would be capable of taking this set-up. -Again, if patient does opt for home with hospice, would need Dr. Srivastava's recs on how to care for the wound for comfort. In my experience, the wound is packed and covered with an absorbent dressing. -Patient and family would like to take the weekend to think about things and discuss amongst themselves. Patient and family appropriately tearful, but deny further questions/concerns at this time. (2) Cavitary pneumonia: (3) Aspergillus fumigatus: (4) CHF (congestive heart failure): (5) Ischemic cardiomyopathy: EF 15% (6) Small cell lung cancer: Stable Subjective Constitutional: + weakness Ear, Nose, Mouth, Throat: no dysphagia Respiratory: + cough and + dyspnea on exertion; no dyspnea Cardiovascular: + edema (improved); no chest pain Gastrointestinal: no abdominal pain, no nausea and no vomiting Musculoskeletal: + muscle weakness Neurologic: no confusion Psychiatric: + depression; no anxiety Physical Exam 2 Vital Signs (Past 24 Hours): Last Vital Signs Temp 36.8 C 12/07/18 13:00 Pulse 109 H 12/07/18 13:00 Resp 24 12/07/18 13:00 BP 95/66 L 12/07/18 13:00 Pulse Ox 94 12/07/18 13:00 Constitutional: + ill appearing (chronically), + frail appearing and + malnourished ENMT: Ears: no hearing impairment Neck: normal visual inspection and trachea midline Respiratory: Auscultation: + diminished lung sounds; no rhonchi Cardiovascular: RRR, no murmur, no edema Gastrointestinal (Abdomen): normal bowel sounds, soft, nontender, no hepatosplenomegaly Neurologic: awake; not confused Psychiatric: A+Ox3, euthymic affect Time Spent Midlevel 65 minutes with >50% of time spent at bedside with patient, family and IDT to discuss GOC and plan. _ (1) CHF (congestive heart failure) Heart failure chronicity: acute on chronic Heart failure type: unspecified Qualified Code(s): I50.9 - Heart failure, unspecified
--- NOTE | 2018-12-07 19:19 | Hospitalist Progress Note ---
Date of Service December 07, 2018 Assessment & Plan (1) Acute respiratory failure with hypoxia: Multifactorial. Main issue is that of left upper lobe cavity s/p Eloesser flap as well as acute/ chronic systolic CHF. Continue to diurese. (2) Acute on chronic systolic (congestive) heart failure: Still volume overloaded clinically. Cont IV lasix. Daily BMP. Cont beta veronica. (3) Severe protein-calorie malnutrition: ongoing but appetite is actually quite good multifactorial boost or boost breeze, etc trazodone may help him gain weight consider remeron but he declines antidepressant (4) Physical deconditioning: severe due to prolonged, recurrent hospitalizations in the midst of significant comorbidities best option is home w/ hospice (5) ATN (acute tubular necrosis): resolved (6) Coagulopathy: 2nd to shock liver - resolved (7) RLL pneumonia: completed full course of IV abx earlier this stay. clinically resolved. (8) Shock liver: recheck LFTs tomorrow am (9) Insomnia: cont trazodone 25mg at HS. (10) Cavitary pneumonia: CHATA, with fungal ball was receiving voriconazole, s/p Eloesser flap, then debridement of same with placement of abx-beads laden with vanco, gen, and antifungal therapy voriconazole stopped (11) Aspergillus fumigatus: s/p placement of antifungal beads in CHATA cavity by Dr. Srivastava voriconazole stopped (12) COPD (chronic obstructive pulmonary disease): no exacerbation at this time (13) DM II (diabetes mellitus, type II), controlled: control acceptable (14) BPH (benign prostatic hyperplasia): finasteride no issues (15) Chronic kidney disease with symptom management only, stage 3 (moderate): creatinine stable (16) DVT prophylaxis: heparin 5000 BID (17) Discharge planning issues: another involved day with several visits to pt's room main visit was lengthy discussion involving patient, his , his daughter, multiple hospice co representatives, case management, and palliative care hospice CANNOT reproduce the suction set up he currently has in place to his Eloesser flap I suspect a SNF will not be able to do this either thus, his 2 options are - 1. home w/ hospice (we would stop suction and simply place dressings on chest wall) 2. SNF with hopes of being able to continue the suction device after much discussion he and his family are leaning towards home w/ hospice they plan to discuss it more over the weekend Dr. Srivastava is out of town, but I did speak with him today, and if he goes home w/ hospice he confirmed we could simply remove the device and place dressings total time today over 3 visits about 80 minutes Subjective multiple visits to Mr. Aden's room today saw patient on AM rounds -- he apparently had a severe episode of BEE w/ walking to the bathroom his breathing is back to baseline now I then joined a large group of people including multiple representatives from a local hospice company, case management (Terra) and Stephanie from palliative care daughter and at bedside for this discussion this discussion was approximately 45 minutes in length we discussed options for care - see assessment/plan section 3rd visit later in the day -- he asked if the Eloesser flap "could be sutured shut" multiple times today he and his were very emotional, crying, etc Constitutional: no anorexia Respiratory: + dyspnea on exertion; no cough and no wheezing Cardiovascular: + edema; no chest pain, no orthopnea and no paroxysmal nocturnal dyspnea Gastrointestinal: no abdominal pain Physical Exam 2 Vital Signs (Past 24 Hours): Last Vital Signs Temp 36.8 C 12/07/18 13:00 Pulse 109 H 12/07/18 13:00 Resp 24 12/07/18 13:00 BP 95/66 L 12/07/18 13:00 Pulse Ox 94 12/07/18 13:00 Constitutional: + ill appearing, + thin and + cachectic; no acute distress ENMT: external ear and nose normal, oropharynx normal Respiratory: Auscultation: + diminished lung sounds (bases ); no rales Cardiovascular: Rate/Rhythm: regular rate, regular rhythm and + tachycardic Heart Sounds: normal S1 and normal S2; no murmur Vessels: + JVD, posterior tibial pulses present and dorsalis pedis pulses present Extremities: + edema (<1+ b/l ) Gastrointestinal (Abdomen): normal bowel sounds, soft, nontender, no hepatosplenomegaly Skin: dressing intact to left upper chest Psychiatric: Orientation: alert and oriented x 3 Affect: + depressed affect Results & Data Laboratory Results Laboratory Results - last 24 hr 12/06/18 12/07/18 12/07/18 20:44 07:59 08:48 Sodium 138 Potassium 4.0 Chloride 102 Carbon Dioxide 32 Anion Gap 5.0 BUN 28 H Creatinine 1.00 Est Cr Clr Drug Dosing 50.7 Est GFR ( Amer) 85.0 Est GFR (Non-Af Amer) 73.3 BUN/Creatinine Ratio 28.0 H Glucose 120 H POC Glucose 197 H 135 H Calcium 8.5 12/07/18 12/07/18 12:26 16:50 Sodium Potassium Chloride Carbon Dioxide Anion Gap BUN Creatinine Est Cr Clr Drug Dosing Est GFR ( Amer) Est GFR (Non-Af Amer) BUN/Creatinine Ratio Glucose POC Glucose 229 H 87 Calcium _ (1) RLL pneumonia Pneumonia type: due to unspecified organism Aspiration pneumonia type: Qualified Code(s): J18.1 - Lobar pneumonia, unspecified organism (2) Insomnia Insomnia type: unspecified Qualified Code(s): G47.00 - Insomnia, unspecified (3) COPD (chronic obstructive pulmonary disease) COPD type: chronic bronchitis Chronic bronchitis type: unspecified Emphysema type: Qualified Code(s): J42 - Unspecified chronic bronchitis (4) DM II (diabetes mellitus, type II), controlled Diabetes mellitus senior care insulin use: without terminal carman use Diabetes mellitus complication status: with kidney complications Diabetes mellitus complication detail: with chronic kidney disease Diabetic retinopathy severity : Proliferative retinopathy type: Diabetes mellitus macular edema: Laterality: Chronic kidney disease stage: stage 3 (moderate) Qualified Code(s ): E11.22 - Type 2 diabetes mellitus with diabetic chronic kidney disease; N18.3 - Chronic kidney disease, stage 3 (moderate) (5) BPH (benign prostatic hyperplasia) Lower urinary tract symptom presence: symptoms absent Lower urinary tract symptom detail: Qualified Code(s): N40.0 - Benign prostatic hyperplasia without lower urinary tract symptoms
[2018-12-07] MEDS: MELATONIN 1 MG PO SCH (20:53)
[2018-12-07] MEDS: TRAZODONE HCL 50 MG TAB PO SCH (20:54)
[2018-12-08 07:06] LABS: Albumin Globulin Ratio 0.5 (0.9-2); Albumin Level 2.3 gm/dl (3.4-5.0); BUN Creatinine Ratio 31.2 (10-20); Bilirubin,Total 0.6 mg/dl (0.2-1); Calcium 9.1 mg/dl (8.5-10.1); Creatinine Clr Calc Pharmacy 50.7 ml/min; Est GFR (Non-African American) 73.3; Globulin 4.4 gm/dl (2.5-4.0); Magnesium 1.9 mg/dl (1.8-2.4); Total Protein 6.7 gm/dl (6.4-8.2)
--- NOTE | 2018-12-08 08:04 | Surgery Progress Note ---
Date of Service December 08, 2018 Assessment & Plan (1) RLL pneumonia: -pt. underwent Eloessar flap with subsequent VAC placement -continue wound VAC -case mgt. assisting with placement options Subjective Pt. says his breathing is comfortable. He notes minimal pain at surgical site. Discussed with RN and no concern noted. Physical Exam 2 Vital Signs (Past 24 Hours): Last Vital Signs Temp 36.7 C 12/08/18 07:01 Pulse 107 H 12/08/18 07:01 Resp 18 12/08/18 07:01 BP 108/77 12/08/18 07:01 Pulse Ox 100 12/08/18 07:01 Physical Exam: Wound VAC noted to be in place and appears to be functioning well. Respiratory: BS are decreased. No use of accessory muscles _ (1) RLL pneumonia Aspiration pneumonia type: Pneumonia type: due to unspecified organism Qualified Code(s): J18.1 - Lobar pneumonia, unspecified organism
[2018-12-08 08:14] LABS: Potassium 4.9 mmol/L (3.5-5.1)
[2018-12-08] MEDS: ASPIRIN 81 MG ECTAB PO SCH (09:04)
[2018-12-08] MEDS: FUROSEMIDE 20 MG in SYRINGE 0 ML IV SCH ×2 (09:04→18:24)
[2018-12-08] MEDS: METOPROLOL SUCC 25MG EXT REL TAB PO SCH (09:06)
[2018-12-08] MEDS: MAGNESIUM OXIDE 400 MG TAB PO SCH (09:07)
[2018-12-08] MEDS: PANTOprazole 40 MG TAB PO SCH (09:07)
[2018-12-08] MEDS: FINASTERIDE 5 MG TAB PO SCH (09:07)
[2018-12-08] MEDS: CEROVITE ADV FORMULA TAB PO SCH (09:07)
[2018-12-08] MEDS: POTASSIUM CHLORIDE 20 MEQ TABCR PO SCH ×2 (09:08→21:56)
[2018-12-08] MEDS: INSULIN GLARGINE SOLOSTAR 100 UNITS/ML 3 ML PEN SC SCH (09:09)
[2018-12-08] MEDS: INSULIN ASPART 100 UNITS/ML 3 ML PEN SC SCH ×2 (09:10→13:22)
[2018-12-08] MEDS: HEPARIN SOD 5,000 UNIT/0.5 ML VIAL SQ SCH ×2 (09:11→22:00)
--- NOTE | 2018-12-08 19:56 | Hospitalist Progress Note ---
Date of Service December 08, 2018 Assessment & Plan (1) Acute respiratory failure with hypoxia: Ongoing, but respiratory status improved. Multifactorial etiologies for the acute resp failure. Main issue is that of left upper lobe cavity s/p Eloesser flap as well as acute/ chronic systolic CHF. Continue to diurese. (2) Acute on chronic systolic (congestive) heart failure: Still volume overloaded clinically. Cont IV lasix. BMP am. Cont beta veronica. BUN and Cr both stable today. Dry weight is about 51-52 kg. (3) Severe protein-calorie malnutrition: ongoing but appetite is actually quite good multifactorial boost or boost breeze, etc trazodone may help him gain weight consider remeron but he declines antidepressant (4) Physical deconditioning: severe due to prolonged, recurrent hospitalizations in the midst of significant comorbidities best option is home w/ hospice (5) Insomnia: cont trazodone 25mg at HS. improving. (6) Cavitary pneumonia: CHATA, with fungal ball was receiving voriconazole, s/p Eloesser flap, then debridement of same with placement of abx-beads laden with vanco, gen, and antifungal therapy voriconazole stopped patient's flap did not heal well and led to air leak now hooked up to suction which is acting like a wound vac (7) Aspergillus fumigatus: s/p placement of antifungal beads in CHATA cavity by Dr. Srivastava voriconazole stopped (8) COPD (chronic obstructive pulmonary disease): wheezing on exam - uncertain if due to COPD or CHF follow for now diurese (9) DM II (diabetes mellitus, type II), controlled: control has been acceptable since we are transitioning to hospice, and given the small amounts of insulin he has been receiving, will stop blood sugar checks and stop lantus/novolog (10) BPH (benign prostatic hyperplasia): finasteride no issues (11) Chronic kidney disease with symptom management only, stage 3 (moderate): creatinine stable (12) DVT prophylaxis: heparin 5000 BID (13) Discharge planning issues: home with hospice - hopefully Monday pt's again reported today that the plan is still hospice gave support to patient, his , and daughter Subjective patient w/o complaints today reports that the "suction is making a lot of noise today" his and daughter were at bedside today Respiratory: + dyspnea on exertion; no cough and no dyspnea Cardiovascular: no chest pain Gastrointestinal: no abdominal pain Physical Exam 2 Vital Signs (Past 24 Hours): Last Vital Signs Temp 36.3 C L 12/08/18 15:32 Pulse 110 H 12/08/18 15:42 Resp 19 12/08/18 15:32 BP 109/79 12/08/18 15:42 Pulse Ox 98 12/08/18 15:42 Constitutional: + ill appearing, + thin and + cachectic; no acute distress depressed ENMT: external ear and nose normal, oropharynx normal Respiratory: no respiratory distress Auscultation: + diminished lung sounds (bases ) and + wheezes (extensive, b/l ); no rales Cardiovascular: Rate/Rhythm: regular rate, regular rhythm and + tachycardic Heart Sounds: normal S1 and normal S2; no murmur Vessels: + JVD, posterior tibial pulses present and dorsalis pedis pulses present Extremities: + edema (<1+ b/l ) Chest (Breasts): Additional Comments: left upper chest - vac in place with suction attached to wall Gastrointestinal (Abdomen): normal bowel sounds, soft, nontender, no hepatosplenomegaly Inspection/Auscultation: normal bowel sounds Psychiatric: Orientation: alert and oriented x 3 Affect: + depressed affect Results & Data Laboratory Results Laboratory Results - last 24 hr 12/07/18 12/08/18 12/08/18 20:22 05:54 08:01 Sodium 135 L Potassium 4.9 D Chloride 98 Carbon Dioxide 33 H Anion Gap 4.0 BUN 31 H Creatinine 1.00 Est Cr Clr Drug Dosing 50.7 Est GFR ( Amer) 85.0 Est GFR (Non-Af Amer) 73.3 BUN/Creatinine Ratio 31.2 H Glucose 97 POC Glucose 153 H 102 H Calcium 9.1 Magnesium 1.9 Total Bilirubin 0.6 AST 32 ALT 62 Alkaline Phosphatase 244 H Total Protein 6.7 Albumin 2.3 L Globulin 4.4 H Albumin/Globulin Ratio 0.5 L Specimen Hemolysis 12/08/18 11:56 Sodium Potassium Chloride Carbon Dioxide Anion Gap BUN Creatinine Est Cr Clr Drug Dosing Est GFR ( Amer) Est GFR (Non-Af Amer) BUN/Creatinine Ratio Glucose POC Glucose 230 H Calcium Magnesium Total Bilirubin AST ALT Alkaline Phosphatase Total Protein Albumin Globulin Albumin/Globulin Ratio Specimen Hemolysis _ (1) Insomnia Insomnia type: unspecified Qualified Code(s): G47.00 - Insomnia, unspecified (2) COPD (chronic obstructive pulmonary disease) COPD type: chronic bronchitis Chronic bronchitis type: unspecified Emphysema type: Qualified Code(s): J42 - Unspecified chronic bronchitis (3) DM II (diabetes mellitus, type II), controlled Diabetes mellitus terminal 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 insulin use: without penitentiary use Diabetes mellitus complication status: with kidney complications Diabetes mellitus complication detail: with chronic kidney disease Diabetic retinopathy severity : Proliferative retinopathy type: Diabetes mellitus macular edema: Laterality: Chronic kidney disease stage: stage 3 (moderate) Qualified Code(s ): E11.22 - Type 2 diabetes mellitus with diabetic chronic kidney disease; N18.3 - Chronic kidney disease, stage 3 (moderate) (4) BPH (benign prostatic hyperplasia) Lower urinary tract symptom presence: symptoms absent Lower urinary tract symptom detail: Qualified Code(s): N40.0 - Benign prostatic hyperplasia without lower urinary tract symptoms
[2018-12-08] MEDS: TRAZODONE HCL 50 MG TAB PO SCH (21:51)
[2018-12-08] MEDS: MELATONIN 1 MG PO SCH (21:53)
--- NOTE | 2018-12-09 07:44 | Surgery Progress Note ---
Date of Service December 09, 2018 Assessment & Plan (1) RLL pneumonia: Eloessar flap performed in hope to prevent CHATA cavitation from contributing to right lung pneumonias will continue VAC on left chest wound medical service notes plans may be in place for return to home tomorrow will follow up with case mgt tomorrow Subjective Pt. notes he gets SOB at time. No pain noted from surgical site. Physical Exam 2 Vital Signs (Past 24 Hours): Last Vital Signs Temp 36.4 C L 12/09/18 06:47 Pulse 105 H 12/09/18 06:47 Resp 18 12/09/18 06:47 BP 100/69 12/09/18 06:47 Pulse Ox 98 12/09/18 07:31 Physical Exam: Pt. resting in bed. He does not appear to be in any distress. Wound VAC remains in place Respiratory: no respiratory distress and no labored breathing occasional rhonchi noted _ (1) RLL pneumonia Pneumonia type: due to unspecified organism Aspiration pneumonia type: Qualified Code(s): J18.1 - Lobar pneumonia, unspecified organism
[2018-12-09 09:12] LABS: BUN Creatinine Ratio 30.2 (10-20); Calcium 9.5 mg/dl (8.5-10.1); Creatinine Clr Calc Pharmacy 43.9 ml/min; Est GFR (African American) 74.1; Est GFR (Non-African American) 63.9; Potassium 4.9 mmol/L (3.5-5.1)
[2018-12-09] MEDS: POTASSIUM CHLORIDE 20 MEQ TABCR PO SCH ×2 (10:14→21:09)
[2018-12-09] MEDS: ASPIRIN 81 MG ECTAB PO SCH (10:14)
[2018-12-09] MEDS: MAGNESIUM OXIDE 400 MG TAB PO SCH (10:15)
[2018-12-09] MEDS: FINASTERIDE 5 MG TAB PO SCH (10:15)
[2018-12-09] MEDS: CEROVITE ADV FORMULA TAB PO SCH (10:15)
[2018-12-09] MEDS: METOPROLOL SUCC 25MG EXT REL TAB PO SCH (10:16)
[2018-12-09] MEDS: PANTOprazole 40 MG TAB PO SCH (10:16)
[2018-12-09] MEDS: HEPARIN SOD 5,000 UNIT/0.5 ML VIAL SQ SCH ×2 (10:17→21:10)
--- NOTE | 2018-12-09 20:19 | Hospitalist Progress Note ---
Date of Service December 09, 2018 Assessment & Plan (1) Acute respiratory failure with hypoxia: Ongoing, but respiratory status improved w/ diuresis. Multifactorial etiologies for the acute resp failure. Since patient is going home with hospice will send with [place] O2. (2) Acute on chronic systolic (congestive) heart failure: Looks euvolemic or close to it today. Stop IV lasix. Repeat BMP in am. Cont BB. Will need 20-40mg of lasix daily at discharge. Dry weight is about 52 kg/53 kg. (3) Severe protein-calorie malnutrition: ongoing but appetite has actually improved to a degree during this very lengthy stay. diet as desired/tolerated. (4) Physical deconditioning: severe due to prolonged, recurrent hospitalizations in the midst of significant comorbidities best option is home w/ hospice (5) Insomnia: cont trazodone 25mg at HS. (6) Cavitary pneumonia: CHATA, with fungal ball was receiving voriconazole, s/p Eloesser flap, then debridement of same with placement of abx-beads laden with vanco, gen, and antifungal therapy voriconazole stopped patient's flap did not heal well and led to air leak now hooked up to suction which is acting like a wound vac the suction will be STOPPED at discharge as hospice cannot maintain this type of suction set-up at his house most nursing homes would likely not be able to perform such a suction set-up either thus, he is returning home with hospice at discharge and flap will simply be covered with dressings (7) Aspergillus fumigatus: s/p placement of antifungal beads in CHATA cavity by Dr. Srivastava voriconazole stopped (8) COPD (chronic obstructive pulmonary disease): had wheezing yesterday but now resolved today (9) DM II (diabetes mellitus, type II), controlled: since we are transitioning to hospice, and given the small amounts of insulin he had been receiving, blood sugar checks and lantus/novolog stopped (10) BPH (benign prostatic hyperplasia): finasteride (11) Chronic kidney disease with symptom management only, stage 3 (moderate): creatinine stable (12) DVT prophylaxis: heparin 5000 BID (13) Discharge planning issues: home with hospice - hopefully Monday, but suspect that it might be hard to pull that discharge date off. Monday sounds more plausible. I asked the pt's today to prepare a spot for his hospital bed at their home. he will need [place] O2, bedside commode, morphine, etc. daughter/ updated at bedside today Subjective no issues overnight however, this am, the suction device on his chest flap started leaking again and the nurses manipulated it to stop the leaking /daughter at bedside patient again asks "is it [the flap] going to heal?" asked about hospice again and date of d/c Respiratory: + dyspnea on exertion Cardiovascular: no chest pain, no orthopnea and no paroxysmal nocturnal dyspnea Gastrointestinal: no abdominal pain Physical Exam 2 Vital Signs (Past 24 Hours): Last Vital Signs Temp 36.3 C L 12/09/18 15:30 Pulse 102 H 12/09/18 15:30 Resp 18 12/09/18 15:30 BP 94/65 L 12/09/18 15:30 Pulse Ox 100 12/09/18 15:30 Constitutional: + ill appearing, + thin and + cachectic; no acute distress ENMT: external ear and nose normal, oropharynx normal Respiratory: no respiratory distress Auscultation: + diminished lung sounds (bases ) and + rales (fine - bases); no rhonchi Cardiovascular: Rate/Rhythm: regular rate, regular rhythm and + tachycardic Heart Sounds: normal S1 and normal S2; no murmur Vessels: + JVD, posterior tibial pulses present and dorsalis pedis pulses present Extremities: + edema (trace b/l ) feet are cool today Chest (Breasts): Additional Comments: suction located over left upper chest Eloesser flap Gastrointestinal (Abdomen): normal bowel sounds, soft, nontender, no hepatosplenomegaly Psychiatric: Orientation: alert and oriented x 3 Affect: + depressed affect Results & Data Laboratory Results Laboratory Results - last 24 hr 12/09/18 08:15 Sodium 134 L Potassium 4.9 Chloride 95 L Carbon Dioxide 33 H Anion Gap 6.0 BUN 34 H Creatinine 1.12 Est Cr Clr Drug Dosing 43.9 Est GFR ( Amer) 74.1 Est GFR (Non-Af Amer) 63.9 BUN/Creatinine Ratio 30.2 H Glucose 140 H Calcium 9.5 _ (1) BPH (benign prostatic hyperplasia) Lower urinary tract symptom detail: Lower urinary tract symptom presence: symptoms absent Qualified Code(s): N40.0 - Benign prostatic hyperplasia without lower urinary tract symptoms (2) Insomnia Insomnia type: unspecified Qualified Code(s): G47.00 - Insomnia, unspecified (3) DM II (diabetes mellitus, type II), controlled Chronic kidney disease stage: stage 3 (moderate) Diabetes mellitus complication detail: with chronic kidney disease Diabetes mellitus complication status: with kidney complications Diabetes mellitus long-term insulin use: without long-term use Diabetes mellitus macular edema: Diabetic retinopathy severity: Laterality: Proliferative retinopathy type: Qualified Code(s): E11.22 - Type 2 diabetes mellitus with diabetic chronic kidney disease; N18.3 - Chronic kidney disease, stage 3 (moderate) (4) COPD (chronic obstructive pulmonary disease) COPD type: chronic bronchitis Chronic bronchitis type: unspecified Emphysema type: Qualified Code(s): J42 - Unspecified chronic bronchitis
[2018-12-09] MEDS: TRAZODONE HCL 50 MG TAB PO SCH (21:09)
[2018-12-09] MEDS: MELATONIN 1 MG PO SCH (21:10)
--- NOTE | 2018-12-09 21:24 | XRay Report ---
XR chest 1V portable CLINICAL HISTORY: 73 years-old Male presenting with increasing SOB. TECHNIQUE: Portable upright AP view of the chest was obtained. COMPARISON: 12/06/2018. FINDINGS: Skin cy again project over the left upper lung, where there are dense beads in place within the known underlying left upper lobe cavity. Atherosclerosis of the aortic arch. Cardiac silhouette moder ately enlarged. Persistent low lung volume on the left in comparison to the right. Significant underl keshawn heterogeneity of the lungs. Interval increase in right mid to basilar lung opacity. Persistent s mall right pleural effusion and trace left pleural effusion. Osseous structures normal. Upper abdomen normal. IMPRESSION: 1. Slowly increasing right mid to basilar infiltrates, possibly worsening infection, aspiration, or atelectasis. 2. Persistent small right and trace left pleural effusions. 3. Postsurgical changes of the left upper lobe cavity with radiodense beads in place. 4. Underlying emphysema. Electronically signed by: Jeffrey Frances M.D. 12/09/2018 9:22 PM
[2018-12-09] MEDS ORDERED: LORazepam 0.25 MG/0.5 ML VIAL IV STA (21:33)
[2018-12-10 07:49] LABS: BUN Creatinine Ratio 27.7 (10-20); Calcium 9.4 mg/dl (8.5-10.1); Creatinine Clr Calc Pharmacy 37.3 ml/min; Est GFR (African American) 60.7; Est GFR (Non-African American) 52.4; Potassium 5.7 mmol/L (3.5-5.1)
[2018-12-10] MEDS: FINASTERIDE 5 MG TAB PO SCH (09:18)
[2018-12-10] MEDS: CEROVITE ADV FORMULA TAB PO SCH (09:19)
[2018-12-10] MEDS: MAGNESIUM OXIDE 400 MG TAB PO SCH (09:19)
[2018-12-10] MEDS: METOPROLOL SUCC 25MG EXT REL TAB PO SCH (09:19)
[2018-12-10] MEDS: ASPIRIN 81 MG ECTAB PO SCH (09:19)
[2018-12-10] MEDS: PANTOprazole 40 MG TAB PO SCH (09:19)
[2018-12-10] MEDS: HEPARIN SOD 5,000 UNIT/0.5 ML VIAL SQ SCH ×2 (09:20→21:31)
[2018-12-10] MEDS: POTASSIUM CHLORIDE 20 MEQ TABCR PO SCH (09:20)
[2018-12-10] MEDS: FUROSEMIDE 20 MG TAB PO SCH (11:07)
[2018-12-10] MEDS: FUROSEMIDE 20 MG in SYRINGE 0 ML IV SCH (17:13)
--- NOTE | 2018-12-10 17:14 | Hospitalist Progress Note ---
Date of Service December 10, 2018 Assessment & Plan (1) Acute respiratory failure with hypoxia: Ongoing, but respiratory status improved w/ diuresis. Multifactorial etiologies for the acute resp failure. Since patient is going home with hospice will send with [place] O2. (2) Acute on chronic systolic (congestive) heart failure: is now euvolemic Stopped IV lasix and restart po lasix 20mg daily today Cont BB. Dry weight is about 52 kg/53 kg. (3) Severe protein-calorie malnutrition: ongoing but appetite has actually improved to a degree during this very lengthy stay. diet as desired/tolerated. (4) Physical deconditioning: severe due to prolonged, recurrent hospitalizations in the midst of significant comorbidities best option is home w/ hospice (5) Insomnia: cont trazodone 25mg at HS. (6) Cavitary pneumonia: CHATA, with fungal ball was receiving voriconazole, s/p Eloesser flap, then debridement of same with placement of abx-beads laden with vanco, gen, and antifungal therapy voriconazole stopped patient's flap did not heal well and led to air leak Was hooked up to suction which is acting like a wound vac, but now discontinued today and packing wound with dressing by Thoracic Surgery the suction will be STOPPED at discharge as hospice cannot maintain this type of suction set-up at his house most nursing homes would likely not be able to perform such a suction set-up either thus, he is returning home with hospice at discharge and flap will simply be covered with dressings (7) Aspergillus fumigatus: s/p placement of antifungal beads in CHATA cavity by Dr. Srivastava voriconazole stopped (8) COPD (chronic obstructive pulmonary disease): Wheezing resolved (9) DM II (diabetes mellitus, type II), controlled: since we are transitioning to hospice, and given the small amounts of insulin he had been receiving, blood sugar checks and lantus/novolog stopped (10) BPH (benign prostatic hyperplasia): finasteride (11) Chronic kidney disease with symptom management only, stage 3 (moderate): creatinine stable (12) Hyperkalemia: K+ 5.7 today and repeat was the same Likely secondary to potassium supplementation -dc po KCl -give one dose kayexolate now -follow BMP in AM (13) DVT prophylaxis: heparin 5000 BID (14) Discharge planning issues: home with hospice - hopefully tomorrow he will need [place] O2, bedside commode, morphine, etc. updated at bedside today Subjective Worried about being off the wall suction now to his flap. Plans in place for discharge to home with hospice hopefully tomorrow. No pains, is moving his bowels. Review of Systems All systems reviewed & are unremarkable except as noted in HPI & below Physical Exam 2 Vital Signs (Past 24 Hours): Last Vital Signs Temp 35.2 C L 12/10/18 16:05 Pulse 92 H 12/10/18 15:15 Resp 16 12/10/18 15:15 BP 102/72 12/10/18 15:15 Pulse Ox 99 12/10/18 15:15 Constitutional: + ill appearing (Chronically ill-appearing), + thin and + cachectic; no acute distress Eyes: PERRL, conjunctivae normal, anicteric sclerae ENMT: external ear and nose normal, oropharynx normal (Mucous membranes moist ) Neck: trachea midline, no thyromegaly Respiratory: normal respiratory effort; no labored breathing Auscultation: + crackles (Right lower lung field) Cardiovascular: RRR, no murmur, no edema Chest (Breasts): Chest: + abnormal inspection of chest (Left superior anterior chest wall with dressing in place) Gastrointestinal (Abdomen): normal bowel sounds, soft, nontender, no hepatosplenomegaly Musculoskeletal: Extremities: extremities normal to inspection; no cyanosis and no clubbing Skin: no rashes, warm and dry Neurologic: moves all extremities and awake Psychiatric: Orientation: alert and oriented x 3 Affect: + flat affect Results & Data Laboratory Results 12/10/18 12/10/18 Range/Units 10:15 06:43 Sodium 132 L (136-145) mmol/L Potassium 5.7 H 5.7 H D (3.5-5.1) mmol/L Chloride 95 L (98-107) mmol/L Carbon Dioxide 33 H (21-32) mmol/L Anion Gap 4.0 (3-11) BUN 37 H (7-18) mg/dl Creatinine 1.32 (0.6-1.4) mg/dl Est Cr Clr Drug Dosing 37.3 ml/min Est GFR ( Amer) 60.7 Est GFR (Non-Af Amer) 52.4 BUN/Creatinine Ratio 27.7 H (10-20) Glucose 157 H (70-99) mg/dl Calcium 9.4 (8.5-10.1) mg/dl _ (1) Insomnia Insomnia type: unspecified Qualified Code(s): G47.00 - Insomnia, unspecified (2) COPD (chronic obstructive pulmonary disease) COPD type: chronic bronchitis Chronic bronchitis type: unspecified Emphysema type: Qualified Code(s): J42 - Unspecified chronic bronchitis (3) DM II (diabetes mellitus, type II), controlled Diabetes mellitus detention insulin use: without intermediate frame tender use Diabetes mellitus complication status: with kidney complications Diabetes mellitus complication detail: with chronic kidney disease Diabetic retinopathy severity : Proliferative retinopathy type: Diabetes mellitus macular edema: Laterality: Chronic kidney disease stage: stage 3 (moderate) Qualified Code(s ): E11.22 - Type 2 diabetes mellitus with diabetic chronic kidney disease; N18.3 - Chronic kidney disease, stage 3 (moderate) (4) BPH (benign prostatic hyperplasia) Lower urinary tract symptom presence: symptoms absent Lower urinary tract symptom detail: Qualified Code(s): N40.0 - Benign prostatic hyperplasia without lower urinary tract symptoms
[2018-12-10] MEDS ORDERED: SODIUM POLYSTYRENE SULFONATE 15G/60ML SUSP PO ONE (17:15)
--- NOTE | 2018-12-10 18:06 | Progress Note ---
DATE: 12/10/2018 Mr. Aden was seen today. He actually looks a bit better to me, although I am not very happy with his p.o. intake. In addition, I think his right base looks a bit worse to me on x-rays yesterday. He sounds about the same. He states that he is walking and eating better. He is going to be discharged home with hospice. We will change his dressing over to a dry dressing. The suction does not appear to be functioning properly now, so I switched him over to dry dressings and I will see how this looks tomorrow. It should be noted, he has a piece of mesh stapled over the wound. So his wound is not open, but needs dry dressings over it.
[2018-12-10] MEDS: TRAZODONE HCL 50 MG TAB PO SCH (21:30)
[2018-12-10] MEDS: MELATONIN 1 MG PO SCH (21:32)
[2018-12-11] MEDS: FINASTERIDE 5 MG TAB PO SCH (08:17)
[2018-12-11] MEDS: FUROSEMIDE 20 MG TAB PO SCH (08:17)
[2018-12-11] MEDS: MAGNESIUM OXIDE 400 MG TAB PO SCH (08:18)
[2018-12-11] MEDS: METOPROLOL SUCC 25MG EXT REL TAB PO SCH (08:18)
[2018-12-11] MEDS: ASPIRIN 81 MG ECTAB PO SCH (08:18)
[2018-12-11] MEDS: CEROVITE ADV FORMULA TAB PO SCH (08:19)
[2018-12-11] MEDS: PANTOprazole 40 MG TAB PO SCH (08:19)
[2018-12-11] MEDS: HEPARIN SOD 5,000 UNIT/0.5 ML VIAL SQ SCH (08:20)
--- NOTE | 2018-12-11 08:51 | Progress Note ---
DATE: 12/11/2018 Mr. Aden was seen today. He had a quiet night. He states that he slept better without the vacuum on. Surprisingly, his dressings are relatively dry. That does give me some encouragement. I do not think he is leaking as much air as he was. We are going to put a few more cy around the meshes; some of them have come out and a few beads have come out. We are going to put dry dressings on this and let him go home. I will see him in the office next week. I am probably going to plan on bringing him back to the operating room for some bead replacement in the future. We are going to check an AP and lateral film as well as calcium, gentamicin and vancomycin levels before his discharge. Overall, I think he is better, but I think he needs to be home.
--- NOTE | 2018-12-11 09:51 | XRay Report ---
XR chest 2V routine CLINICAL HISTORY: Eloesser flap dyspnea COMPARISON STUDY: 12/09/2017 FINDINGS: Stable postoperative changes left pulmonary apex. Some improvement parenchymal infiltrative change right base. A slight emphysematous change. Unchanging pleural thickening left pulmonary apex. IMPRESSION: 1. Infiltrative changes right base slightly improved from the prior exam. 2. Stable postoperative changes left apex. The above report was generated using voice recognition software. It may contain grammatical, syntax or spelling errors. Electronically signed by: Ezekiel Collier M.D. 12/11/2018 9:49 AM
[2018-12-11 10:10] LABS: Basophils # (auto) 0.02 K/uL (0-0.2); Basophils % (auto) 0.3 %; Eosinophils # (auto) 0.08 K/uL (0-0.5); Eosinophils % (auto) 1.3 %; Hematocrit (blood only) 32.3 % (42-52); Hemoglobin 9.9 g/dL (14.0-18.0); Immature Granulocytes # (auto) 0.07 K/uL (0.00-0.02); Immature Granulocytes % (auto) 1.1 %; Lymphocytes # (auto) 0.35 K/uL (1.2-3.4); Lymphocytes % (auto) 5.6 %; Mean Corpuscular Hgb Conc 30.7 g/dL (32-36); Mean Corpuscular Volume 91.8 fL (80-100); Mean Platelet Volume 10.2 fL (7.4-10.4); Monocytes # (auto) 0.98 K/uL (0.11-0.59); Monocytes % (auto) 15.6 %; Neutrophils # (auto) 4.78 K/uL (1.4-6.5); Neutrophils % (auto) 76.1 %; Platelet Count 329 K/uL (130-400); RDW Coefficient of Variation 21.5 % (11.5-14.5); RDW Standard Deviation 72.8 fL (36.4-46.3); Red Blood Count 3.52 M/uL (4.7-6.1); White Blood Count 6.28 K/uL (4.8-10.8)
[2018-12-11 10:26] LABS: Giant Platelets 1+; Hypochromasia Present; Macrocytosis Present
[2018-12-11 10:45] LABS: BUN Creatinine Ratio 28.1 (10-20); Creatinine Clr Calc Pharmacy 40.7 ml/min; Est GFR (African American) 67.5; Est GFR (Non-African American) 58.2; Potassium 4.2 mmol/L (3.5-5.1)
--- NOTE | 2018-12-11 16:38 | Palliative Care Progress Note ---
Date of Service December 11, 2018 Assessment & Plan (1) Goals of care, counseling/discussion: (1) Palliative care encounter: -Patient states he is feeling "better." Had antifungal beads placed in Eloesser flap on 11/30 . Patient on O2 at 4L [place] -Patient's plan is to be discharged home with the addition of hospice care. Patient's goal is to improve to the point where he will no longer qualify for hospice (2) Cavitary pneumonia: (3) Aspergillus fumigatus: Status post Eloesser flap and antifungal beats packed in right chest (4) CHF (congestive heart failure): Edema stable (5) Elevated LFTs: Improved (6) Ischemic cardiomyopathy: Controlled on current meds (7) Small cell lung cancer: Further plans per oncology if patient's performance status improves Subjective Patient awake alert, no acute distress. No increased shortness of breath with removal of the wound VAC. Patient denies pain, fever, chills, increased shortness of breath, or GI symptoms. Patient anxious to return home-plan is to return home with his under hospice care. Patient's concerned regarding patient's nutritional status-discussed with the importance of him eating what he likes as he will eat more and therefore have improved nutrition. Encourage patient's goal of going home and improving to the point where he will no longer qualify for hospice. Physical Exam 2 Vital Signs (Past 24 Hours): Last Vital Signs Temp 36.3 C L 12/11/18 15:26 Pulse 101 H 12/11/18 15:26 Resp 16 12/11/18 15:26 BP 100/68 12/11/18 15:26 Pulse Ox 99 12/11/18 15:26 Physical Exam: PE: No acute distress HEENT: EOMI, normal hearing Respiratory: No increased work of breathing, decreased breath sounds on right CV: Regular rate, trace to 1+ edema Abdomen: Soft nontender Neuro: Alert and oriented Supervising Physician Co-Signing Physician Notes Total time spent 35 minutes with greater than 50% of the time spent at bedside discussing patient's goals of care and plan of care with both patient and .
--- NOTE | 2018-12-13 13:09 | Discharge Summary ---
Date of Service December 11, 2018 Admission HPI Per Admitting Provider This patient is a 72-year-old male with a history of severe ischemic cardiomyopathy and chronic systolic CHF, Aspergillus pulmonary infection, cavitary lesion of the left upper lobe, small cell lung cancer, CAD, PAD, HL, COPD, HTN, BPH status post TURP, anemia, CKD stage III, and DM 2, with recent prolonged hospitalization after a STEMI and ventilator dependent respiratory failure with subsequent acute kidney injury and cardiogenic shock. He presents to the ER today with worsening shortness of breath and was found to be hypoxic in the 80s. He was just discharged from the senior care 3 days ago. Review of the discharge medication list shows that his Lasix was decreased from 40 mg once daily after discharge here several weeks ago, and is now down to 20 mg every other day. The patient reports he has gained 8 pounds since his discharge from here. This is corresponded with his progressively worsening shortness of breath. He denies abdominal pain or distention, no diarrhea, denies lower extremity edema. He denies increased cough or sputum production, denies hemoptysis. In the ER, he was thought to be in acute CHF and was given IV Lasix shortly after initially being given a fluid bolus of 500 mL's of normal saline. His chest x-ray showed a worsening right lower lobe infiltrate from previous x- ray. He was afebrile and did not have a leukocytosis, but he was tachycardic and was given vancomycin and Zosyn to cover for pneumonia. He will be admitted for acute on chronic systolic CHF and recurrent right lower lobe pneumonia Principal Diagnosis Bilateral PNA, Left upper lobe cavitary lesion, Acute on chronic systolic CHF Discharge Exam Constitutional + ill appearing (Chronically ill-appearing, lying in position in bed), + thin and + cachectic; no acute distress Eyes PERRL, conjunctivae normal, anicteric sclerae ENMT external ear and nose normal, oropharynx normal (Mucous membranes moist) Neck trachea midline, no thyromegaly Respiratory normal respiratory effort; no labored breathing Auscultation: + crackles (Right lower lung field) and + rhonchi (Bilateral lower lung watts) Cardiovascular RRR, no murmur, no edema Chest (Breasts) Chest: + abnormal inspection of chest (Left superior anterior chest wall with dressing in place) Gastrointestinal (Abdomen) normal bowel sounds, soft, nontender, no hepatosplenomegaly Musculoskeletal Extremities: extremities normal to inspection; no cyanosis and no clubbing Skin no rashes, warm and dry Neurologic moves all extremities and awake Psychiatric Orientation: alert and oriented x 3 Affect: + flat affect Discharge Data Allergies Allergy/AdvReac Type Severity Reaction Status Date / Time No Known Allergies Allergy Verified 11/11/18 15:07 Consultations Cardiology Thoracic Surgery Infectious Diseases Gastroenterology Palliative Care Urology Procedures Performed Operation Date: 11/19/18 12:30 Actual Procedures p Left Anterior Eloesser Flap(Left) - Aguilar Srivastava MD, FACS Operation Date: 11/30/18 08:15 Actual Procedures p Debridement Eloesser Flap with Implantation of CalciumPHOSPHATE Beads(Left) - Aguilar Srivastava MD, FACS Ordered Studies 12/05/18 11:54 US venous doppler LE RT Routine Numerous CXRs Hospital Course (1) Acute respiratory failure with hypoxia: Ongoing, but respiratory status improved w/ diuresis. Multifactorial etiologies for the acute resp failure including COPD, PNA, CHATA cavitary lesion. Since patient is going home with hospice will send with SD O2. (2) Acute on chronic systolic (congestive) heart failure: is now euvolemic after diuresis off and on over many weeks -continue po lasix 20mg daily Cont BB. Dry weight is about 52 kg/53 kg. (3) Severe protein-calorie malnutrition: ongoing but appetite has actually improved to a degree during this very lengthy stay. diet as desired/tolerated. (4) Physical deconditioning: severe due to prolonged, recurrent hospitalizations in the midst of significant comorbidities best option is home w/ hospice (5) Insomnia: cont trazodone 25mg at HS. (6) Cavitary pneumonia: CHATA, with fungal ball was receiving voriconazole, s/p Eloesser flap, then debridement of same with placement of abx-beads laden with vanco, gen, and antifungal therapy voriconazole systemically was stopped after bead placed patient's flap did not heal well and led to air leak Was hooked up to suction which is acting like a wound vac, but then discontinued due to going home with Hospice and packing wound with dressing daily as recommended by Thoracic Surgery the suction will be STOPPED at discharge as hospice cannot maintain this type of suction set-up at his house (7) Aspergillus fumigatus: s/p placement of antifungal beads in CHATA cavity by Dr. Srivastava voriconazole stopped (8) COPD (chronic obstructive pulmonary disease): Wheezing resolved (9) DM II (diabetes mellitus, type II), controlled: since we are transitioning to hospice, and given the small amounts of insulin he had been receiving, blood sugar checks and lantus/novolog stopped -he can take metformin as before at home and if causing side effects, can be discontinued (10) BPH (benign prostatic hyperplasia): Continue finasteride BPs too low for Flomax (11) Chronic kidney disease with symptom management only, stage 3 (moderate): creatinine stable (12) Hyperkalemia: K+ 5.7 day prior to discharge-->likely secondary to KCl po supplementation while receiving IV lasix which was then converted to po lasix -given Kayexolate x 1, discontinued po KCl--> repeat K+ normal on day of discharge (13) DVT prophylaxis: heparin 5000 BID was provided (14) Discharge planning issues: Dispo-he had a very lengthy stay for recurrent RLL and LLL PNA secondary to communicating CHATA cavity with left mainstem bronchus and subsequent recurrent aspiration PNAs, and Aspergillus. He also had acute hypoxic resp failure as above and acute CHF. Lengthy stay due to procedures, diuresis and management of cardiac issues, had shock liver and ATN due to perioperative hypotension. Ultimately, he has a very poor overall prognosis given his frailty and multiple comorbidities. He has been stable now for many days and will return to home with hospice today Total Time Total Time Spent Total Time Spent (In Minutes): >30 min Total Time Includes: Examination of the Patient, Discharge Planning, Medication Reconciliation and Communication With Other Providers (Thoracic Surgery) Discharge Plan Discharge Items Patient Disposition: Hospice - Home Reason For Visit: ACUTE ON CHRONIC SYSTOLIC CHF Discharge Diagnosis: Acute on chronic systolic CHF, Left upper lobe cavitary lesion with Aspergillus and Pneumonia Condition: Fair Discharge Goals: Decrease discomfort, Diagnostic testing, Improve disease control, Learn about illness and Therapeutic intervention Activity: As commented below Lifting: None Bathing: Keep incision dry Exercise/Sports: As tolerated Non-emergency contact: Primary Care Provider and Surgeon Call non-emergency contact if: you have any medication questions, your symptoms worsen, your pain is not controlled, your pain is worsening, your pain is unusual for you, your pain is concerning for you, you have a fever, your temperature is above 101, your wound has increased redness, your wound has increased drainage and your wound pain has increased Follow-up/Referrals: Aguilar Srivastava MD, FACS [Surgeon] - (Office will call you for an appointment on 12/17/18. ) Diet: Heart Healthy Add Provider Instructions: You were admitted with shortness of breath, pneumonia, and heart failure. You were treated for all of these and had some improvement, but ultimately, your lung and heart issues are not significantly improved. Your surgical wound will be cared for with dressing changes as per Dr. Srivastava. You will be discharged home with Hospice and they can care for your symptoms at home. Dressing to chest wound can be changed with dry gauze and tape every 3-4 days and as needed if it becomes wet/saturated. Please draw a CBC and PRP on 12/16/18. Prescriptions: New trazodone 50 mg Tablet 25 mg PO HS Qty: 30 RF: 0 sodium chloride [Saline Mist] 0.65 % Aerosol,[place] 2 sprays NA PRN PRN (Reason: nasal congestion) Qty: 1 RF: 0 Continued finasteride 5 mg Tablet 5 mg PO QAM RF: 0 magnesium oxide 400 mg magnesium Tablet 400 mg PO QAM RF: 0 metformin 1,000 mg tablet 1,000 mg PO BID RF: 0 multivitamin with minerals [Multiple Vitamin-Minerals] Tablet 1 tab PO QAM RF: 0 pantoprazole 40 mg Tablet,Delayed Release (Dr/Ec) 40 mg PO QAM RF: 0 aspirin 81 mg Tablet,Chewable 81 mg PO QAM RF: 0 melatonin 1 mg tablet 1 mg PO HS Qty: 30 RF: 2 metoprolol succinate 25 mg Tablet Extended Release 24 Hr 12.5 mg PO QAM Qty: 30 RF: 11 nut.tx.gluc intol,lf,soy-fiber [Boost Glucose Control] 0.06-1.1 gram-kcal/mL liquid 1 ea PO TIDM Qty: 6399 RF: 2 nitroglycerin 0.4 mg tablet, sublingual 0.4 mg Sublingual Q5M PRN (Reason: chest pain) Qty: 30 RF: 0 Changed furosemide [Lasix] 20 mg Tablet 20 mg PO QAM Qty: 30 RF: 0 Discontinued ferrous sulfate 325 mg (65 mg iron) Tablet 325 mg PO BID RF: 0 cyanocobalamin (vitamin B-12) [Vitamin B-12] 500 mcg Tablet 1,000 mcg PO QAM Qty: 30 RF: 11 insulin aspart U-100 [Novolog Flexpen U-100 Insulin] 100 unit/mL Insulin Pen SUBCUT ACHS RF: 0 potassium chloride [Klor-Con M20] 20 mEq tablet,ER particles/crystals 20 meq PO Q OTHER DAY RF: 0 Stand-Alone Forms: [facility] Discharge Orders: Discharge Order (Routine); Ordered 12/11/18 Ordered By: Joselyn Zambrano Admission Data Admit Date/Time: 11/11/18 17:56 Attending Provider: Joselyn Zambrano Admit Provider: Joselyn Zambrano Primary Care Provider: Robert Vera Other Providers: Home,Nursing Agency ; [employer] ; Dalton Rodriguez ; Christopher Feldman I. ; Annabella Briceno ; Aguilar Srivastava ; Robert Chaudhry ; Joselyn Zambrano Service: Medical Other Interventions: Discharge Summary Assessment (RN) Last Done: 12/11/18 14:15 Pending Studies at Discharge: No DC Date/Time DO NOT enter until pt leaves facility: 12/11/18 16:21
== END 2018-12-11 16:21 | disposition hospice, home (50) | DRG 853 ==
LOC: ED 13:22 → SUATTDRO 17:56 → 2S 17:56 → 3N 11-25 14:26